=== PATIENT | male | born 1965 | race African-American/Black ===

== ENCOUNTER 2017-12-14 16:03 | Inpatient (IN) | payer MEDICAID, SELFPAY ==
[2017-12-14 16:04] VITALS: BP 134/85; PULSE 102; RESP 16; TEMP 37; O2SAT 99; BMI 20.3
--- NOTE | 2017-12-14 16:35 | CT_ITS ---
STUDY: CT ABDOMEN AND PELVIS WITH CONTRAST REASON FOR EXAM: Male, 52 years old. Intermittent vomiting. RADIATION DOSAGE (If Supplied By Facility): CTDIvol = ( 13.93 ) mGy, DLP = ( 426.75 ) mGycm TECHNIQUE: Transaxial images were obtained from the dome of the diaphragm to the symphysis pubis without oral contrast. 100ML ml of Isovue 300 contrast was administered. Sagittal and coronal images were reconstructed. Individualized dose optimization techniques were used for this CT. COMPARISON: None. FINDINGS: The visualized lung bases are unremarkable. The visualized portions of the heart are within normal limits. Normal liver. The gallbladder is distended measuring up to 5.7 cm in the transverse dimension. There are gallstones within the gallbladder. Normal spleen. Normal pancreas. Normal bilateral adrenal glands. Normal right kidney. Normal left kidney. Normal visualized stomach. Normal small intestine. There is circumferential wall thickening of the colon. There are surgical clips in the region of the appendix consistent with a prior appendectomy. There are scattered atherosclerotic calcifications of the abdominal aorta, without a demonstrated aneurysm. Normal inferior vena cava. Normal retroperitoneum. The urinary bladder is fluid-filled and distended. There is mild subcutaneous edema within the central mid and lower back. There are degenerative changes throughout the visualized thoracic and lumbar spine most pronounced at L5-S1. CT/Abdomen/Pelvis WITH Contrast IMPRESSION: Distended gallbladder associated with cholelithiasis, cannot exclude underlying cholecystitis, recommend a dedicated ultrasound for further evaluation. Circumferential wall thickening of the colon this may be partially secondary to its incompletely distended state however cannot exclude underlying mild colitis. Fluid-filled distended urinary bladder. Atherosclerosis. Electronically Signed: Sanaz Arias MD at 18:49 EST Tel , Service support ,
--- NOTE | 2017-12-14 16:37 | ED.VISSUMM ---
- ER Visit Summary Date of Service: 12/14/17 Chief Complaint: Abdominal pain History of Present Illness: The patient is a 52 M presenting with abdominal pain ?1 week. He complains of diffuse burning in his abdomen. He has had nausea and vomiting. He denies blood in his emesis. He denies diarrhea constipation. Denies urinary complaints. Denies fever. Denies history of alcohol use. He has a history of previous appendectomy. History of chronic back pain. Physical Examination: Vitals are stable. Patient is afebrile. Alert no acute distress. HEENT exam is unremarkable. Neck is supple. Lungs are clear and equal bilaterally. Heart is regular rate and rhythm. Abdomen is soft diffuse tenderness, no rebound or guarding. Extremities left great toe wound with mild surrounding erythema Skin is warm and dry. No focal neurologic deficit. Remainder of exam is unremarkable. Emergency Department Course and Treatment: Patient is given IV fluids, Dilaudid, Zofran. CBC is unremarkable. Chemistries show sodium 132, glucose 505. He was given insulin subcu. ALT 94, AST 71. Lipase 1999. CT abdomen pelvis shows distended gallbladder, possible mild colitis. Ultrasound shows distended gallbladder, cholelithiasis, possible adenomyomatosis. Left foot x-ray shows no evidence of osteomyelitis. He was given Zosyn IV. Discussed with Dr. Ramirez. He requests that the patient is n.p.o. after midnight. Discussed with Dr. Guadarrama who will evaluate him for admission. Disposition: Admission Impression: Pancreatitis, cholelithiasis, diabetic foot ulcer This note was generated with [employer] dictation software. It may contain incorrect words, spelling, and punctuation that were not noted in review of the chart prior to signing ED Disposition - Plan for ED Patient: Chief Complaint: Abd Pain Referrals: Timothy Fisher Chi, MD [Primary Care Provider] -
[2017-12-14] MEDS: 0.9% Normal Saline 1,000 ML 1000 ML IV (17:05)
[2017-12-14] MEDS: Ondansetron 4 MG/2 ML Vial IV (17:05)
[2017-12-14] MEDS: HYDROmorphone 1 MG/ML Syringe 0.5 MG IV (17:05)
[2017-12-14 17:45] LABS: Absolute Lymphocyte Count 2.06 X10^3/ul (0.83-4.51); Absolute Neutrophil Count 3.4 X10^3/uL (2.0-7.7); Basophil# 0.02 X10^3/uL; Basophil% 0.3 % (0-1); Eosinophil# 0.09 X10^3/uL; Eosinophils% 1.4 % (0-5); Hematocrit 39.3 % (40-54); Lymphocyte # 2.06 X10^3/ul (4.0); Mean Corpuscular Volume 91.6 fL (80-94); Mean Platelet Vol. 11.7 fl (6.2-12.0); Monocyte# 0.63 X10^3/uL; Monocyte% 10.1 % (0-10); Neutrophil # 3.42 X10^3/uL (2.7-7.7); Neutrophil % 54.7 % (47-70); Platelet Count 138 K/mm3 (150-450); RBC Distribution Width CV 12.4 % (11.6-14.6); RBC Distribution Width SD 41.4 fl (35.1-43.9); Red Blood Count 4.29 M/mm3 (4.6-6.2); White Blood Count 6.3 K/mm3 (4.4-11.0)
[2017-12-14 17:46] LABS: Hemoglobin 13.6 g/dl (13.0-16.5); Mean Corp Hgb Conc 34.6 g/gl (32-36); Mean Corpuscular Hgb 31.7 pg (27.0-32.0); POSITIVE COUNT NO; POSITIVE DIFFERENTIAL NO; POSITIVE MORPHOLOGY NO
[2017-12-14 18:03] LABS: AST(SGOT) 71 U/L (15-37); Alanine Aminotransfer ALT/SGPT 94 U/L (16-61); Albumin, Serum 3.5 g/dL (3.2-5.0); Alkaline Phosphatase 103 U/L (45-117); Anion Gap 9 (5-15); BUN 9 mg/dL (7-18); BUN/Creat Ratio 9.7 RATIO (10-20); Bilirubin, Direct 0.27 mg/dL (0.00-0.30); Calcium,Total 9.1 mg/dL (8.5-10.1); Chloride 95 mmol/L (98-107); Creatinine, Serum 0.93 mg/dL (0.70-1.30); EST Glomerular Filtration Rate 91 mL/min (>60); Est Glom Filt Rate - Afr Amer 110 mL/min (>60); Estimated Creatinine Clearance 93.04 ml/min; Globulin 5.8 g/dL (2.2-4.2); Glucose 505 mg/dL (74-106); Lipase 1999 U/L (73-393); Potassium 3.9 mmol/L (3.5-5.1); Protein, Total 9.3 g/dL (6.4-8.2); Sodium Level 132 mmol/L (136-145)
[2017-12-14] MEDS: HYDROmorphone 1 MG/ML Syringe IV ×2 (18:13→21:02)
--- NOTE | 2017-12-14 18:56 | US_ITS ---
STUDY: ULTRASOUND GALLBLADDER REASON FOR VISIT: Male, 52 years old. Abdominal pain TECHNIQUE: Ultrasound evaluation of the gallbladder was performed with real-time and static meza-scale imaging. TECHNICAL QUALITY: Adequate. COMPARISON: CT dated December 14, 2017 FINDINGS: Gallbladder: The gallbladder is distended. Gallbladder wall measures 2 mm. The contract associate reported the patient was tender within the gallbladder region. There is no pericholecystic fluid. There appears to be a ring down artifact within the gallbladder fundus. Common Bile Duct (C.B.D.): The common bile duct measures 4.8 mm. US/Gallbladder IMPRESSION: Distended gallbladder associated with cholelithiasis and possible adenomyomatosis. Electronically Signed: Sanaz Arias MD at 21:01 EST Tel , Service support ,
[2017-12-14 19:41] VITALS: BP 140/91; PULSE 80; RESP 16; O2SAT 100
[2017-12-14 21:03] VITALS: BP 134/97; PULSE 79; RESP 16; O2SAT 98
--- NOTE | 2017-12-14 21:45 | RAD_ITS ---
STUDY: X-RAY - LEFT FOOT CLINICAL: Male, 52 years old. Left great toe infection. TECHNIQUE: 3 view(s) of the foot. COMPARISON: None. FINDINGS: There is demineralization of the rear and midfoot bones. There are mild degenerative changes of the midfoot. Normal metatarsi. There is degenerative arthrosis of the metatarsophalangeal joint of the hallux . Normal interphalangeal joint of the great toe. Normal phalanges of the great toe. There is soft tissue swelling of the great toe. Normal second through fifth metatarsophalangeal joints. Normal interphalangeal joints and phalanges of the lesser toes. There are vascular calcifications present. RAD/Foot min 3 Views IMPRESSION: No gross evidence of osteomyelitis. Atherosclerosis. Mild degenerative changes. Electronically Signed: Sanaz Arias MD at 22:05 EST Tel , Service support ,
[2017-12-15] VITALS (13 sets, daily range): BP systolic 95–146; BP diastolic 63–99; PULSE 68–89; RESP 16–18; TEMP 36.6–36.8; O2SAT 97–100; BMI 19.4
--- NOTE | 2017-12-15 00:44 | PCM.HP.STD ---
Problem List (1) Acute pancreatitis Status: Acute Qualifiers: Pancreatitis type: biliary Acute pancreatitis complication: no infection or necrosis Qualified Code(s): K85.10 - Biliary acute pancreatitis without necrosis or infection (2) Hypertension Status: Chronic Qualifiers: Hypertension type: essential hypertension Qualified Code(s): I10 - Essential (primary) hypertension (3) Ulcer of left great toe due to diabetes mellitus Status: Chronic (4) Diabetes mellitus type 2 Status: Chronic History of Present Illness Date of Admission: 12/15/17 Chief Complaint: Abdominal pain - 1 week The patient is a 52 year old M with PMHx of Type 2 DM, chronic back pain, hypertension who comes in with complains of abdominal pain, ongoing for 1 week. Patient complains of diffuse abdominal pain, worse in the upper abdomen, described as burning, progressively getting worse, associated with nausea and vomiting but no hematemesis. Denies any constipation or diarrhea or hematochezia. Denies use of alcohol. Denies any fever or chills, dizziness or shortness of breath. Vitals in the ED show T 98.6F, HR 102, BP 134/85, RR 16, spo2 99%. 12 showed RBC count of 6.3, Hb 13.6, platelets of 138, sodium 132, potassium 3.9, chloride 95, bicarb 28, BUN 9 creatinine 0.93, glucose 505, AST 71, ALT 94, ALP 103, lipase is 1999. Abdominal CT shows distended gallbladder associated with cholelithiasis. Gallbladder ultrasound confirms gallstones. 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) Diabetes mellitus type 2 (Chronic) Allergies morphine Allergy (Verified 12/14/17 16:07) Other Home Medications: Ambulatory Orders Medication Instructions Recorded Atorvastatin Calcium [Lipitor] 40 mg PO QHS 02/08/17 Lisinopril [Zestril] 10 mg PO DAILY 02/08/17 Insulin Glargine,Hum.rec.anlog 20 unit SQ QHS 10/06/17 [Basaglar Kwikpen U-100] Insulin Lispro [Humalog] 10 unit SQ TIDCM 10/06/17 Surgical History: appendectomy Psychiatric History: No pertinent psych hx Lives: Spouse/ Significant Other Smoking Status: Current every day smoker - black [place] Tobacco Use: Non-smoker Alcohol: None Drugs: None - *Family History Maternal History Items: No pertinent history Paternal History Items: No pertinent history Review of Systems Constitutional: Reports: Anorexia, Weakness. Denies: Chills, Fever, Malaise, Weight Change Eyes: Denies: Blurred vision, Cataracts, Conjunctivae Inflammation, Double vision, Drainage HEENT: Denies: Difficulty Hearing, Difficulty Swallowing, Head Aches, Hearing Changes, Sinus Congestion, Sinus Drainage Cardiovascular: Denies: Chest Pain, Claudication, Chest Pressure, Chest Tightness, Edema, Orthopnea, Palpitations, Paroxysmal Noc. Dyspnea Respiratory: Denies: Cough, Pleuritic Pain, Shortness of Breath, Shortness of breath at rest, Shortness of breath upon exertion, Sputum production Gastrointestinal: Reports: Dyspepsia, Nausea, Vomiting. Denies: Abdominal Pain, Constipation, Diarrhea, Melena Genitourinary: Denies: Dysuria, Frequency, Incontinence Musculoskeletal: Denies: Joint Pain, Joint stiffness, Joint swelling, Joint Tenderness Skin: Denies: Dryness, Jaundice, Rash, Wounds Neurological: Denies: Difficulty swallowing, Focal weakness, Numbness, Tingling Psychiatric: Denies: Anxiety, Depression, Homicidal Ideations, Suicidal Ideations Hematologic/ Lymphatic: Denies: Easy Bruising, Easy Bleeding VTE Information - Inpt Only VTE Present on Admission: No VTE Pharm Prophylaxis ordered?: Yes Patient Problems: Active and Suspected Problems Acute pancreatitis (Acute) - Physical Exam General: Alert, Oriented x3, Cooperative, - - not pale, looks tired HEENT: Atraumatic, PERRLA, EOMI, Normocephalic Oral: Dry Mucosa Neck: Supple Lungs: Clear to auscultation, Normal air movement, Diminished - at lung bases Cardiovascular: Regular rate, Regular Rhythm, Normal S1, Normal S2, No murmurs Abdomen: Bowel Sounds Present, Soft, Non-Distended, No Hepato-splenomegaly, Tender - in upper abdomen with some guarding. Extremities: No edema Skin: No rashes Musculoskeletal: No Tenderness to Palpation of Joints or Extremities Lymphatic: No Cervical, Supraclavicular, or Inguinal Adenopathy Neurological: Cranial nerves II-XII grossly intact, Motor Exam 5/5 strength throughout Psych/Mental Status: Normal Affect, Appropriate Vital Signs Temp Pulse Resp BP Pulse Ox 98.6 F 68 16 95/67 97 12/14/17 16:04 12/15/17 00:21 12/15/17 00:21 12/15/17 00:21 12/15/17 00:21 Oxygen Delivery Method Room Air Assessment/Plan Active and Suspected Problems Acute pancreatitis (Acute) 52 year old male with PMHx of Type 2 DM, chronic back pain, hypertension who comes in with complains of abdominal pain, ongoing for 1 week. 1. Acute abdominal pain, unclear etiology, could be from pancreatitis,as admitting lipase was 1998, but CT scan of the abdomen and pelvis shows a normal pancreas. Ultrasound and CT scan of the abdomen points to cholelithiasis without cholecystitis Plan: Admit to [facility] floor, IV fluids, keep n.p.o, general surgery- Dr. Ramirez, has been consulted by the ED, pain controlled with Dilaudid IV, repeat lipase in the morning, IV PPI twice daily 2. Type II DM, blood sugars are uncontrolled, will continue on home regimen but decrease the dose of Lantus to 10 units nightly and pre-meal lispro to 5 units 3 times daily in the light of n.p.o. status. We will continue with Accu-Cheks and insulin sliding scale every 6 hours as long as patient is n.p.o. 3. Hyperlipidemia, statin on hold on account of possible acute pancreatitis, may resume on discharge if patient is improved. 4. Hypertension, controlled, on lisinopril which is being held on account of possible pancreatitis, will monitor BP and add prn hydralazine. 5. 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 6. Hyponatremia, related to hypoglycemia, repeat BMP in a.m. 7. DVT prophylaxis with Lovenox subcu Code Visit Inpatient E&M: 76537 Init Hosp L3
[2017-12-15] MEDS: HYDROmorphone 1 MG/ML Syringe IV ×6 (00:48→20:27)
--- NOTE | 2017-12-15 00:54 | HP.PCM_ITS ---
Problem List (1) Acute pancreatitis Status: Acute Qualifiers: Pancreatitis type: biliary Acute pancreatitis complication: no infection or necrosis Qualified Code(s): K85.10 - Biliary acute pancreatitis without necrosis or infection (2) Hypertension Status: Chronic Qualifiers: Hypertension type: essential hypertension Qualified Code(s): I10 - Essential (primary) hypertension (3) Ulcer of left great toe due to diabetes mellitus Status: Chronic (4) Diabetes mellitus type 2 Status: Chronic History of Present Illness Date of Admission: 12/15/17 Chief Complaint: Abdominal pain - 1 week The patient is a 52 year old M with PMHx of Type 2 DM, chronic back pain, hypertension who comes in with complains of abdominal pain, ongoing for 1 week. Patient complains of diffuse abdominal pain, worse in the upper abdomen, described as burning, progressively getting worse, associated with nausea and vomiting but no hematemesis. Denies any constipation or diarrhea or hematochezia. Denies use of alcohol. Denies any fever or chills, dizziness or shortness of breath. Vitals in the ED show T 98.6F, HR 102, BP 134/85, RR 16, spo2 99%. 12 showed RBC count of 6.3, Hb 13.6, platelets of 138, sodium 132, potassium 3.9, chloride 95, bicarb 28, BUN 9 creatinine 0.93, glucose 505, AST 71, ALT 94, ALP 103, lipase is 1999. Abdominal CT shows distended gallbladder associated with cholelithiasis. Gallbladder ultrasound confirms gallstones. 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) Diabetes mellitus type 2 (Chronic) Allergies morphine Allergy (Verified 12/14/17 16:07) Other Home Medications: Ambulatory Orders Medication Instructions Recorded Atorvastatin Calcium [Lipitor] 40 mg PO QHS 02/08/17 Lisinopril [Zestril] 10 mg PO DAILY 02/08/17 Insulin Glargine,Hum.rec.anlog 20 unit SQ QHS 10/06/17 [Basaglar Kwikpen U-100] Insulin Lispro [Humalog] 10 unit SQ TIDCM 10/06/17 Surgical History: appendectomy Psychiatric History: No pertinent psych hx Lives: Spouse/ Significant Other Smoking Status: Current every day smoker - black [place] Tobacco Use: Non-smoker Alcohol: None Drugs: None - *Family History Maternal History Items: No pertinent history Paternal History Items: No pertinent history Review of Systems Constitutional: Reports: Anorexia, Weakness. Denies: Chills, Fever, Malaise, Weight Change Eyes: Denies: Blurred vision, Cataracts, Conjunctivae Inflammation, Double vision, Drainage HEENT: Denies: Difficulty Hearing, Difficulty Swallowing, Head Aches, Hearing Changes, Sinus Congestion, Sinus Drainage Cardiovascular: Denies: Chest Pain, Claudication, Chest Pressure, Chest Tightness, Edema, Orthopnea, Palpitations, Paroxysmal Noc. Dyspnea Respiratory: Denies: Cough, Pleuritic Pain, Shortness of Breath, Shortness of breath at rest, Shortness of breath upon exertion, Sputum production Gastrointestinal: Reports: Dyspepsia, Nausea, Vomiting. Denies: Abdominal Pain , Constipation, Diarrhea, Melena Genitourinary: Denies: Dysuria, Frequency, Incontinence Musculoskeletal: Denies: Joint Pain, Joint stiffness, Joint swelling, Joint Tenderness Skin: Denies: Dryness, Jaundice, Rash, Wounds Neurological: Denies: Difficulty swallowing, Focal weakness, Numbness, Tingling Psychiatric: Denies: Anxiety, Depression, Homicidal Ideations, Suicidal Ideations Hematologic/ Lymphatic: Denies: Easy Bruising, Easy Bleeding VTE Information - Inpt Only VTE Present on Admission: No VTE Pharm Prophylaxis ordered?: Yes Patient Problems: Active and Suspected Problems Acute pancreatitis (Acute) - Physical Exam General: Alert, Oriented x3, Cooperative, - - not pale, looks tired HEENT: Atraumatic, PERRLA, EOMI, Normocephalic Oral: Dry Mucosa Neck: Supple Lungs: Clear to auscultation, Normal air movement, Diminished - at lung bases Cardiovascular: Regular rate, Regular Rhythm, Normal S1, Normal S2, No murmurs Abdomen: Bowel Sounds Present, Soft, Non-Distended, No Hepato-splenomegaly, Tender - in upper abdomen with some guarding. Extremities: No edema Skin: No rashes Musculoskeletal: No Tenderness to Palpation of Joints or Extremities Lymphatic: No Cervical, Supraclavicular, or Inguinal Adenopathy Neurological: Cranial nerves II-XII grossly intact, Motor Exam 5/5 strength throughout Psych/Mental Status: Normal Affect, Appropriate Vital Signs Temp Pulse Resp BP Pulse Ox 98.6 F 68 16 95/67 97 12/14/17 16:04 12/15/17 00:21 12/15/17 00:21 12/15/17 00:21 12/15/17 00:21 Oxygen Delivery Method Room Air Assessment/Plan Active and Suspected Problems Acute pancreatitis (Acute) 52 year old male with PMHx of Type 2 DM, chronic back pain, hypertension who comes in with complains of abdominal pain, ongoing for 1 week. 1. Acute abdominal pain, unclear etiology, could be from pancreatitis,as admitting lipase was 1998, but CT scan of the abdomen and pelvis shows a normal pancreas. Ultrasound and CT scan of the abdomen points to cholelithiasis without cholecystitis Plan: Admit to [facility] floor, IV fluids, keep n.p.o, general surgery- Dr. Ramirez, has been consulted by the ED, pain controlled with Dilaudid IV, repeat lipase in the morning, IV PPI twice daily 2. Type II DM, blood sugars are uncontrolled, will continue on home regimen but decrease the dose of Lantus to 10 units nightly and pre-meal lispro to 5 units 3 times daily in the light of n.p.o. status. We will continue with Accu- Cheks and insulin sliding scale every 6 hours as long as patient is n.p.o. 3. Hyperlipidemia, statin on hold on account of possible acute pancreatitis, may resume on discharge if patient is improved. 4. Hypertension, controlled, on lisinopril which is being held on account of possible pancreatitis, will monitor BP and add prn hydralazine. 5. Chronic left 1st toe ulcer, diabetic ulcer on plantar surface of toe, follows up with architect [employer] in the outpatient, will get wound nurse to see. 6. Hyponatremia, related to hypoglycemia, repeat BMP in a.m. 7. DVT prophylaxis with Lovenox subcu Code Visit Inpatient E&M: [id number] Init Hosp L3
[2017-12-15] MEDS: 0.9% Normal Saline 1,000 ML 150 ML IV (02:25)
[2017-12-15 02:45] LABS: Bedside Glucose 110 mg/dL (70-110)
[2017-12-15] MEDS: Dextrose 5%/0.9% NaCl 1,000 ML 150 ML IV ×2 (04:58→12:01)
[2017-12-15 06:46] LABS: Absolute Lymphocyte Count 2.63 X10^3/ul (0.83-4.51); Basophil# 0.02 X10^3/uL; Basophil% 0.3 % (0-1); Eosinophils% 1.6 % (0-5); Hematocrit 33.8 % (40-54); Hemoglobin 12.1 g/dl (13.0-16.5); Lymphocyte # 2.63 X10^3/ul (4.0); Mean Corp Hgb Conc 35.8 g/gl (32-36); Mean Corpuscular Volume 92.1 fL (80-94); Mean Platelet Vol. 10.4 fl (6.2-12.0); Monocyte# 0.59 X10^3/uL; Monocyte% 9.2 % (0-10); Neutrophil # 3.04 X10^3/uL (2.7-7.7); Neutrophil % 47.3 % (47-70); Platelet Count 116 K/mm3 (150-450); RBC Distribution Width CV 12.5 % (11.6-14.6); RBC Distribution Width SD 42.3 fl (35.1-43.9); Red Blood Count 3.67 M/mm3 (4.6-6.2); White Blood Count 6.4 K/mm3 (4.4-11.0)
[2017-12-15 06:53] LABS: POSITIVE COUNT NO; POSITIVE DIFFERENTIAL NO; POSITIVE MORPHOLOGY NO
[2017-12-15 06:56] LABS: Lipase 440 U/L (73-393)
[2017-12-15 07:01] LABS: Bedside Glucose 260 mg/dL (70-110)
--- NOTE | 2017-12-15 07:41 | EKG12_ITS ---
Test Reason : Blood Pressure : / mmHG Vent. Rate : 077 BPM Atrial Rate : 077 BPM P-R Int : 174 ms QRS Dur : 096 ms QT Int : 396 ms P-R-T Axes : 066 -37 066 degrees QTc Int : 448 ms Normal sinus rhythm Left axis deviation Low voltage QRS Abnormal ECG When compared with ECG of 08-FEB-2017 19:40, No significant change was found Confirmed by ROSEANNA WILKES, BARRIE ([id number]), managing editor MARISELA HEBERT ([id number]) on 12/29/2017 1:34:21 PM Referred By: ESTEFANY Confirmed By:BARRIE CONDON MD
--- NOTE | 2017-12-15 08:03 | PCM.CONS.GEN ---
Problem List (1) Gallstone pancreatitis Status: Acute Reason for Consult Date of Consultation: 12/15/17 History of Present Illness: The patient is a 52 year old M who was admitted last night with epigastric pain. He reports that his pain is actually generalized and has been going on for about a week. He says that he has never had pancreatitis in the past. He is not having any nausea or vomiting. He denies any diarrhea or blood in stool. 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) Diabetes mellitus type 2 (Chronic) Allergies morphine Allergy (Verified 12/15/17 02:13) Other pt states gets very bad headaches from morphine Home Medications: Ambulatory Orders Medication Instructions Recorded Atorvastatin Calcium [Lipitor] 40 mg PO QHS 02/08/17 Lisinopril [Zestril] 10 mg PO DAILY 02/08/17 Insulin Glargine,Hum.rec.anlog 20 unit SQ QHS 10/06/17 [Basaglar Kwikpen U-100] Insulin Lispro [Humalog] 10 unit SQ TIDCM 10/06/17 Surgical History: appendectomy Psychiatric History: No pertinent psych hx Lives: Spouse/ Significant Other Smoking Status: Current every day smoker - black [employer] Tobacco Use: Non-smoker Alcohol: None Drugs: None - *Family History Maternal History Items: No pertinent history Paternal History Items: No pertinent history Review of Systems Constitutional: Reports: Anorexia. Denies: Chills, Fever HEENT: Denies: Difficulty Swallowing Cardiovascular: Denies: Chest Pain Respiratory: Denies: Cough, Shortness of Breath Gastrointestinal: Reports: Abdominal Pain - Generalized abdominal pain. Denies: Nausea, Vomiting Genitourinary: Denies: Dysuria Musculoskeletal: Reports: Joint Tenderness Skin: Denies: Dryness, Jaundice Neurological: Denies: Focal weakness Psychiatric: Denies: Anxiety Hematologic/ Lymphatic: Denies: Anemia Patient Problems: Active and Suspected Problems Acute pancreatitis (Acute) Gallstone pancreatitis (Acute) - Physical Exam General: Alert, Oriented x3, No apparent distress HEENT: Atraumatic Oral: Moist Mucosa Neck: No JVD Lungs: Normal air movement Cardiovascular: Regular rate, Regular Rhythm Abdomen: Soft, Non-Distended, Tender - Abdominal tenderness. No guarding or rebound. Musculoskeletal: No Muscle Wasting Lymphatic: No Cervical, Supraclavicular, or Inguinal Adenopathy Neurological: Cranial nerves II-XII grossly intact Vital Signs Temp Pulse Resp BP Pulse Ox 98.1 F 77 18 111/63 98 12/15/17 07:51 12/15/17 07:51 12/15/17 07:51 12/15/17 07:51 12/15/17 07:51 Oxygen Delivery Method Room Air Weight: 149 lb 3.2 oz Body Mass Index (BMI) 19.4 Intake and Output for Last 24 Hours 12/13/17 12/14/17 12/15/17 23:59 23:59 23:59 Intake Total 1028 / 1028 Balance 1028 / 1028 Laboratory Tests Past 24 Hrs 12/15/17 12/15/17 06:26 06:26 WBC 6.4 RBC 3.67 L Hgb 12.1 L Hct 33.8 L MCV 92.1 MCH 33.0 H MCHC 35.8 RDW 12.5 RDW Differential 42.3 Plt Count 116 L MPV 10.4 Immature Gran % (Auto) 0.600 Neut % (Auto) 47.3 Lymph % (Auto) 41.0 Emanuel % (Auto) 9.2 Eos % (Auto) 1.6 Baso % (Auto) 0.3 Absolute Neuts (auto) 3.0 Absolute Lymphs (auto) 2.63 Total Counted Not Reportable Lipase 440 H POC Glucose 12/15/17 12/15/17 06:48 02:23 POC Glucose 260 H 110 Clinical Impression(s) from Imaging Studies Abdomen/Pelvis CT 12/14/17 16:35 IMPRESSION: Distended gallbladder associated with cholelithiasis, cannot exclude underlying cholecystitis, recommend a dedicated ultrasound for further evaluation. Circumferential wall thickening of the colon this may be partially secondary to its incompletely distended state however cannot exclude underlying mild colitis. Fluid-filled distended urinary bladder. Atherosclerosis. Electronically Signed: Sanaz Arias MD at 18:49 EST Tel , Service support , Gallbladder Ultrasound 12/14/17 18:56 IMPRESSION: Distended gallbladder associated with cholelithiasis and possible adenomyomatosis. Electronically Signed: Sanaz Arias MD at 21:01 EST Tel , Service support , Foot X-Ray 12/14/17 21:45 IMPRESSION: No gross evidence of osteomyelitis. Atherosclerosis. Mild degenerative changes. Electronically Signed: Sanaz Arias MD at 22:05 EST Tel , Service support , Assessment/Plan Active and Suspected Problems Acute pancreatitis (Acute) Gallstone pancreatitis (Acute) 52-year-old male with acute gallstone pancreatitis 1. The patient did have elevated lipase and does have gallstones on both CT and ultrasound. His symptoms are not typical of pancreatitis as this was not acute onset and has been gradually onset for a week. His lipase has improved today and he reports his pain is slightly improved from yesterday. I informed him that the standard treatment for a patient with pancreatitis and gallstones is a laparoscopic cholecystectomy as the most likely cause of pancreatitis is gallstones. I told him that this would not relieve his pain but only would prevent a recurrence of his pancreatitis. I also told him that there is a possibility of his pancreatitis returning if the original cause was not his gallstones. The patient understands this and is willing to proceed with surgery. 2. I described laparoscopic cholecystectomy in detail to the patient. I described the risks including but not limited to bleeding, infection, stroke and heart attack with anesthesia, injury to surrounding organs such as the liver, bile duct, bowels. The patient understands all the risks and is willing to proceed with surgery. 3. I will keep the patient n.p.o. today and plan for surgery this afternoon. I will order an EKG as well. Tay Ramirez MD Pager: [facility] [address], [place] [address] Office:
--- NOTE | 2017-12-15 08:08 | CON.PCM_ITS ---
Problem List (1) Gallstone pancreatitis Status: Acute Reason for Consult Date of Consultation: 12/15/17 History of Present Illness: The patient is a 52 year old M who was admitted last night with epigastric pain. He reports that his pain is actually generalized and has been going on for about a week. He says that he has never had pancreatitis in the past. He is not having any nausea or vomiting. He denies any diarrhea or blood in stool. 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) Diabetes mellitus type 2 (Chronic) Allergies morphine Allergy (Verified 12/15/17 02:13) Other pt states gets very bad headaches from morphine Home Medications: Ambulatory Orders Medication Instructions Recorded Atorvastatin Calcium [Lipitor] 40 mg PO QHS 02/08/17 Lisinopril [Zestril] 10 mg PO DAILY 02/08/17 Insulin Glargine,Hum.rec.anlog 20 unit SQ QHS 10/06/17 [Basaglar Kwikpen U-100] Insulin Lispro [Humalog] 10 unit SQ TIDCM 10/06/17 Surgical History: appendectomy Psychiatric History: No pertinent psych hx Lives: Spouse/ Significant Other Smoking Status: Current every day smoker - black [employer] Tobacco Use: Non-smoker Alcohol: None Drugs: None - *Family History Maternal History Items: No pertinent history Paternal History Items: No pertinent history Review of Systems Constitutional: Reports: Anorexia. Denies: Chills, Fever HEENT: Denies: Difficulty Swallowing Cardiovascular: Denies: Chest Pain Respiratory: Denies: Cough, Shortness of Breath Gastrointestinal: Reports: Abdominal Pain - Generalized abdominal pain. Denies : Nausea, Vomiting Genitourinary: Denies: Dysuria Musculoskeletal: Reports: Joint Tenderness Skin: Denies: Dryness, Jaundice Neurological: Denies: Focal weakness Psychiatric: Denies: Anxiety Hematologic/ Lymphatic: Denies: Anemia Patient Problems: Active and Suspected Problems Acute pancreatitis (Acute) Gallstone pancreatitis (Acute) - Physical Exam General: Alert, Oriented x3, No apparent distress HEENT: Atraumatic Oral: Moist Mucosa Neck: No JVD Lungs: Normal air movement Cardiovascular: Regular rate, Regular Rhythm Abdomen: Soft, Non-Distended, Tender - Abdominal tenderness. No guarding or rebound. Musculoskeletal: No Muscle Wasting Lymphatic: No Cervical, Supraclavicular, or Inguinal Adenopathy Neurological: Cranial nerves II-XII grossly intact Vital Signs Temp Pulse Resp BP Pulse Ox 98.1 F 77 18 111/63 98 12/15/17 07:51 12/15/17 07:51 12/15/17 07:51 12/15/17 07:51 12/15/17 07:51 Oxygen Delivery Method Room Air Weight: 149 lb 3.2 oz Body Mass Index (BMI) 19.4 Intake and Output for Last 24 Hours 12/13/17 12/14/17 12/15/17 23:59 23:59 23:59 Intake Total 1028 / 1028 Balance 1028 / 1028 Laboratory Tests Past 24 Hrs 12/15/17 12/15/17 06:26 06:26 WBC 6.4 RBC 3.67 L Hgb 12.1 L Hct 33.8 L MCV 92.1 MCH 33.0 H MCHC 35.8 RDW 12.5 RDW Differential 42.3 Plt Count 116 L MPV 10.4 Immature Gran % (Auto) 0.600 Neut % (Auto) 47.3 Lymph % (Auto) 41.0 Talbot % (Auto) 9.2 Eos % (Auto) 1.6 Baso % (Auto) 0.3 Absolute Neuts (auto) 3.0 Absolute Lymphs (auto) 2.63 Total Counted Not Reportable Lipase 440 H POC Glucose 12/15/17 12/15/17 06:48 02:23 POC Glucose 260 H 110 Clinical Impression(s) from Imaging Studies Abdomen/Pelvis CT 12/14/17 16:35 IMPRESSION: Distended gallbladder associated with cholelithiasis, cannot exclude underlying cholecystitis, recommend a dedicated ultrasound for further evaluation. Circumferential wall thickening of the colon this may be partially secondary to its incompletely distended state however cannot exclude underlying mild colitis. Fluid-filled distended urinary bladder. Atherosclerosis. Electronically Signed: Sanaz Arias MD at 18:49 EST Tel , Service support , Gallbladder Ultrasound 12/14/17 18:56 IMPRESSION: Distended gallbladder associated with cholelithiasis and possible adenomyomatosis. Electronically Signed: Sanaz Arias MD at 21:01 EST Tel , Service support , Foot X-Ray 12/14/17 21:45 IMPRESSION: No gross evidence of osteomyelitis. Atherosclerosis. Mild degenerative changes. Electronically Signed: Sanaz Arias MD at 22:05 EST Tel , Service support , Assessment/Plan Active and Suspected Problems Acute pancreatitis (Acute) Gallstone pancreatitis (Acute) 52-year-old male with acute gallstone pancreatitis 1. The patient did have elevated lipase and does have gallstones on both CT and ultrasound. His symptoms are not typical of pancreatitis as this was not acute onset and has been gradually onset for a week. His lipase has improved today and he reports his pain is slightly improved from yesterday. I informed him that the standard treatment for a patient with pancreatitis and gallstones is a laparoscopic cholecystectomy as the most likely cause of pancreatitis is gallstones. I told him that this would not relieve his pain but only would prevent a recurrence of his pancreatitis. I also told him that there is a possibility of his pancreatitis returning if the original cause was not his gallstones. The patient understands this and is willing to proceed with surgery. 2. I described laparoscopic cholecystectomy in detail to the patient. I described the risks including but not limited to bleeding, infection, stroke and heart attack with anesthesia, injury to surrounding organs such as the liver , bile duct, bowels. The patient understands all the risks and is willing to proceed with surgery. 3. I will keep the patient n.p.o. today and plan for surgery this afternoon. I will order an EKG as well. Tay Ramirez MD Pager: [facility] [address], [place] [address] Office:
[2017-12-15] MEDS: 0.9% NaCl Peripheral Flush Adult/Peds IV ×4 (09:01→20:28)
[2017-12-15 11:16] LABS: Bedside Glucose 224 mg/dL (70-110)
--- NOTE | 2017-12-15 11:59 | NURSING ---
wound photo: left great toe
--- NOTE | 2017-12-15 13:29 | CASEMGMT ---
DC PLAN: Home -Pt stated he has diabetic monitoring equipment and checks his blood sugar at home. Could benefit from diabetes f/u. -appt made with Giovany CALVO for 01/11/18 @ 1:30 pm. -will continue to follow and assist with discharge needs. Tracy KAHN RN ACM
[2017-12-15 14:15] LABS: Bedside Glucose 300 mg/dL (70-110)
--- NOTE | 2017-12-15 16:01 | PCM.PN.BLA ---
Progress Note Surgery had to be delayed this afternoon due to an emergent add on by another surgeon. Plan for lap cholecystectomy tomorrrow AM. OK for clears tonight and NPO after midnight.
[2017-12-15 17:31] LABS: Bedside Glucose 299 mg/dL (70-110)
[2017-12-15 22:21] LABS: Bedside Glucose 372 mg/dL (70-110)
[2017-12-16] VITALS (20 sets, daily range): BP systolic 128–182; BP diastolic 78–104; PULSE 71–109; RESP 14–20; TEMP 36.3–36.9; O2SAT 95–100; BMI 19.4
--- NOTE | 2017-12-16 | GALL_PTH ---
PATIENT: LUCIANA ORO Sr. LOC: MS2 U#:[id number] AGE/SX: 52/M ROOM: [id number] RE12/14/[address]: Dr. Delmi Angeles MD : 1965 BED: 1 DIS: 12/17/2017 SPEC #: [id number] RECD: 12/16/17 14:41 STATUS: ESTEFANIA REJayne #: [id number] SHAI: 12/16/17 00:[address]: Tay Ramirez DEPT: SURGICAL PATHOLOGY RECD BY: Rodolfo Martinez ENTERED: 12/16/17 14:43 SP TYPE: GALLBLADDE OTHR DR: MD Dr. Delmi Johnson MD Dr. Tai Chi Kwok, MD Tissues: A - Peritoneal cavity, NOS B - Gallbladder, NOS Procedures: Surgery Specimen Level III Surgery Specimen Level IV Comments: @ Ordering doctor for SUIII edited from to @ indigo JURADO at 12/16/17 1528 @ Ordering doctor for SUIV edited from to @ by RHIANNON at 12/16/17 1528 @ Submitting doctor edited from to @ indigo JURADO at 12/16/17 1528 HEADER OPERATION: A ? Laparoscopic cholecystectomy with intraoperative cholangiogram PRE-OP DIAGNOSIS: Cholelithiasis TISSUE SUBMITTED: A - Peritoneal nodule, B - Gallbladder MICROSCOPIC DIAGNOSIS A. Peritoneal nodule, biopsy: A piece of adipose tissue with extensive fat necrosis and focal calcification may represent infarcted and focally calcified appendix epiploica. B. Gallbladder: Mild chronic cholecystitis and cholelithiasis. A benign paracystic lymph node with reactive changes. DESTINEY:dwight 12/17/17 MICROSCOPIC DESCRIPTION Slides are reviewed. GROSS DESCRIPTION A - Received in fixative is one container labeled with the patient's name and designated peritoneal nodule. The specimen consists of a piece of bond nodule measuring 1 x 0.8 x 0.5 cm. The specimen is bisected and reveals yellowish cut surfaces. A piece of hemorrhagic tissue is also noted adjacent to it measuring 1 x 0.2 x 0.1 cm. The entire specimen is submitted in one cassette. B - Received is one container labeled with the patient's name and designated gallbladder. The specimen consists of a gallbladder measuring 10 cm in length and up to 3.5 cm in diameter. The external surface is pink-bond, smooth and glistening for the most part. Focally it is granular, hemorrhagic and contains cautery artifact. The gallbladder contains green-yellow mucoid bile and multiple black irregular stones and sludge material measuring in aggregate 1 x 1.5 x 0.2 cm and 0.1 to 0.3 cm in greatest dimension. The mucosa is bile-stained and without any mass lesions. The gallbladder wall measures 0.2 cm in thickness. Present close to the cystic duct is an ovoid piece of bond soft tissue, a possible lymph node, measuring 1.5 cm in greatest dimension. [employer] sections from the gallbladder and the cystic duct are submitted in one cassette. One entire bisected lymph node in one cassette. / SJ:rg 12/16/17 TC:3 CPT: 88512, 86038
[2017-12-16] MEDS: 0.9% NaCl Peripheral Flush Adult/Peds IV ×3 (00:24→21:35)
[2017-12-16] MEDS: HYDROmorphone 1 MG/ML Syringe IV ×5 (00:25→21:35)
[2017-12-16 05:39] LABS: Absolute Lymphocyte Count 2.27 X10^3/ul (0.83-4.51); Absolute Neutrophil Count 2.6 X10^3/uL (2.0-7.7); Basophil# 0.01 X10^3/uL; Basophil% 0.2 % (0-1); Eosinophil# 0.12 X10^3/uL; Eosinophils% 2.2 % (0-5); Hematocrit 32.6 % (40-54); Hemoglobin 11.8 g/dl (13.0-16.5); Lymphocyte # 2.27 X10^3/ul (4.0); Lymphocyte % 42.5 % (19-41); Mean Corp Hgb Conc 36.2 g/gl (32-36); Mean Corpuscular Hgb 33.4 pg (27.0-32.0); Mean Corpuscular Volume 92.4 fL (80-94); Mean Platelet Vol. 10.5 fl (6.2-12.0); Monocyte# 0.36 X10^3/uL; Monocyte% 6.7 % (0-10); Neutrophil # 2.55 X10^3/uL (2.7-7.7); Neutrophil % 47.8 % (47-70); POSITIVE COUNT NO; POSITIVE DIFFERENTIAL NO; POSITIVE MORPHOLOGY NO; Platelet Count 126 K/mm3 (150-450); RBC Distribution Width CV 12.4 % (11.6-14.6); Red Blood Count 3.53 M/mm3 (4.6-6.2); White Blood Count 5.3 K/mm3 (4.4-11.0)
[2017-12-16 05:45] LABS: ALB/GLOB Ratio 0.5 RATIO (0.9-2.4); AST(SGOT) 59 U/L (15-37); Alanine Aminotransfer ALT/SGPT 69 U/L (16-61); Albumin, Serum 2.3 g/dL (3.2-5.0); Alkaline Phosphatase 69 U/L (45-117); Anion Gap 6 (5-15); BUN 5 mg/dL (7-18); BUN/Creat Ratio 8.7 RATIO (10-20); Calcium,Total 7.6 mg/dL (8.5-10.1); Chloride 104 mmol/L (98-107); Creatinine, Serum 0.58 mg/dL (0.70-1.30); EST Glomerular Filtration Rate 157 mL/min (>60); Est Glom Filt Rate - Afr Amer 190 mL/min (>60); Estimated Creatinine Clearance 144.23 ml/min; Globulin 4.2 g/dL (2.2-4.2); Glucose 305 mg/dL (74-106); Lipase 176 U/L (73-393); Potassium 3.6 mmol/L (3.5-5.1); Protein, Total 6.5 g/dL (6.4-8.2); Sodium Level 137 mmol/L (136-145)
[2017-12-16 05:56] LABS: Bedside Glucose 334 mg/dL (70-110)
--- NOTE | 2017-12-16 07:34 | NURSING ---
pt agitated that he pain medicine was not administered at 0645, when asked to rate his pain when giving pain medication at this time, he demanded that the RN not ask a stupid question like that stating that it's been the same that it has been since he came in and refused to give location when asked. this RN clarified that the pain was a 10/10 and in his abdomen without radiation. 0.5 mg of dilaudid was given (per Dr Ramirez's order) as pt is being transferred to surgery soon and this RN explained the dangers of being oversedated due to pain meds and anesthesia and that his safety is our main priority. pt rolled his eyes and did not respond. Efrain in was called regarding blood glucose and sliding scale novolog. she checked with anesthesia and they gave ok for the 3 units of novolog sliding scale to be given at this time. will continue to monitor.
[2017-12-16 08:09] LABS: Hemoglobin A1c 13.2 % (4.2-6.3)
--- NOTE | 2017-12-16 08:12 | NURSING ---
report called to Jessica in [facility]. pt transported by SHABBIR Cardona
--- NOTE | 2017-12-16 09:36 | RAD_ITS ---
STUDY: INTRAOPERATIVE CHOLANGIOGRAM. REASON FOR EXAM: Male, 52 years old. Laparoscopic cholecystectomy. FLUOROSCOPY TIME (if supplied): (0:11) minutes/seconds TECHNIQUE: An intraoperative cholangiogram was performed by the surgeon. Imaging was submitted. COMPARISON: None. FINDINGS: The visualized intrahepatic biliary ducts are unremarkable. The common bile duct is unremarkable as well. No intraluminal filling defect is seen. There is free flow of contrast into the duodenum. RAD/Cholangiogram/ O R,Initial IMPRESSION: Unremarkable intraoperative cholangiogram. Electronically Signed: Nicolás Vinson MD at 11:12 EST Tel [phone], Service support ,
[2017-12-16] MEDS: Bupiv/Epi 0.5% Mpf 30 ML Vial (10:40)
--- NOTE | 2017-12-16 10:47 | PCM.OPRPT ---
Problem List (1) Gallstone pancreatitis Status: Acute Report of Operation Date of Procedure: 12/16/17 Pre-Operative Diagnosis: Gallstone pancreatitis Post-Operative Diagnosis: Same Surgery/Procedure Performed:: Laparoscopic cholecystectomy with cholangiogram Description of Surgical Findings:: The patient has small free-floating nodule which was removed. Intraoperative cholangiogram showed good filling of the duodenum with no notable filling defect. Specimen's removed: 1. Peritoneal nodule. 2. Gallbladder and contents Description of Procedure: After obtaining informed consent patient was brought back to the operating room. General anesthesia was induced. The abdomen was prepped and draped in usual sterile fashion. A small midline incision was made superior to the umbilicus and deepened to the level of fascia. The fascia was elevated and incised. Next the peritoneum was elevated and incised in the same fashion. Finger sweep was performed and the Valencia trocar was placed into the abdomen. The balloon was inflated. The abdomen was inflated to 15 mmHg. Next a camera was introduced into the abdomen and the abdomen was inspected. Next under direct visualization three 5-mm ports were placed one subxiphoid and 2 subcostal. There is a free-floating peritoneal nodule which was removed and sent for pathology. Next the gallbladder was elevated and retracted toward the right shoulder. The peritoneum was stripped from the gallbladder. The infundibulum was located and retracted laterally. Next the triangle of Calot was dissected and the cystic duct and cystic artery were identified. Cholangiograms were performed. The Franco catheter was used to clamp across the infundibulum and the needle was inserted into the gallbladder. Under fluoroscopy contrast was instilled into the gallbladder and the common duct, cystic duct as well as proximal hepatic ducts were identified. There was good filling of the duodenum. There were no filling defects noted in the common bile duct. The clamp was removed as well as the needle and the infundibulum was grasped once more. Three hemolock clips were placed across the cystic duct. The cystic duct was then divided leaving 2 clips on the stump. The cystic artery was clipped and divided in the same fashion. The hook cautery was then used to take the gallbladder off of the gallbladder bed. The left hepatic artery was very close to the cystic duct and need to be dissected free. The gallbladder was opened at one point by the grasper and there was spillage of bile. This was irrigated and suctioned. Hemostasis was obtained. Gallbladder fossa was irrigated and no active bleeding or bile leakage was noted. Next the camera switched to a 5 mm camera and introduced in the subxiphoid port. An Endopouch bag was placed through the umbilical port and the gallbladder was placed into it. The gallbladder was then removed through the umbilical incision. The camera was then reinserted through the umbilical port. The gallbladder fossa was inspected once more and noted to be hemostatic with no leaking bile. The abdomen was suctioned dry the 5 mm ports were removed under direct visualization. The umbilical port was then removed and the air was removed from the abdomen. Next using an 0 Vicryl suture the umbilical fascia was closed in a [id number] fashion. The umbilical port site was irrigated local anesthetic was administered to all the incisions. All the incisions were closed subcuticular 4-0 Monocryl sutures followed by Steri-Strips and dressings. The patient was awoken and taken to PACU in stable condition. - Admit VTE Documentation VTE Mechan Device Prophylaxis: SCD's
--- NOTE | 2017-12-16 10:49 | PCM.DC.GB ---
Discharge Diet: Light diet - advance as tolerated Discharge Activity: Return to Normal Activity, May Not Drive - for 2-3 days or while taking narcotic pain medicataions., - - Do not drive, work heavy equipment or sign legal documents for 24 hours. May shower in (days): 1 - with the bandage in place. Additional Activity Instructions:: Pain medication may cause nausea. You should typically eat light foods as you take your pain medications. Pain medication may also cause constipation. If this is a problem for you, please discuss with your doctor. Call your doctor if your incision/area has: Continuous Slow Oozing, Sudden Increased Bleeding, Increased Pain/ Swelling, Increased Redness, Foul Smelling Discharge, Fever of 101 or Higher Call your doctor if you observe: Fever of 101 or Higher Suture Line Care: Avoid Pulling/Pushing, Avoid Pinching/Bending Additional Dressing/Incision Instructions:: Leave operative bandaids on for 2 days. When you remove dressing, leave Steri-Strips on until your follow-up appointment, or until the Steri-Strips fall off on their own. Allergies/Adverse Reactions: Allergies morphine Allergy (Verified 12/15/17 02:13) Other pt states gets very bad headaches from morphine Medications to take at Discharge Atorvastatin Calcium [Lipitor] 40 mg PO QHS 02/08/17 Lisinopril [Zestril] 10 mg PO DAILY 02/08/17 Insulin Glargine,Hum.rec.anlog [Basaglar Kwikpen U-100] 20 unit SQ QHS 10/06/17 Insulin Lispro [Humalog] 10 unit SQ TIDCM 10/06/17 Oxycodone HCl/Acetaminophen [Percocet 5/325] 1 - 2 tablet PO Q4H PRN PRN 7 Days #40 tablet 12/16/17 The following prescriptions were given: Oxycodone HCl/Acetaminophen [Percocet 5/325] 1 - 2 tablet PO Q4H PRN PRN 7 Days #40 tablet PRN Reason: Pain Primary Care Physician: Timothy Fisher Chi, MD [Primary Care Provider] - Please Follow Up With: Tay Ramirez MD When: call to schedule 2 week follow up appt [phone]
--- NOTE | 2017-12-16 10:50 | PCM.PN.BLA ---
Progress Note Patient had laparoscopic cholecystectomy for gallstone pancreatitis today. The patient was still complaining of diffuse abdominal pain even though his lipase had returned to normal. The CT scan did reveal some thickening of his colon. He says that it has been a while since his last colonoscopy. I would recommend an outpatient colonoscopy that we can discuss during follow-up. The patient is okay to be discharged home this afternoon if he is tolerating a diet and his pain is well controlled with p.o. medications. He is to follow with me in 2 weeks. He needs to get his diabetes under better control as his hemoglobin A1c was 13 and I did inform him that a poor glucose control postoperatively placed him at a higher risk of infection. Tay Ramirez MD Pager: [facility] [address], [address] [address] Office:
[2017-12-16 11:41] LABS: Bedside Glucose 270 mg/dL (70-110)
[2017-12-16 13:06] LABS: Bedside Glucose 279 mg/dL (70-110)
--- NOTE | 2017-12-16 13:56 | PCM.PROGNOTE ---
Patient Problems: Active and Suspected Problems Acute pancreatitis (Acute) Gallstone pancreatitis (Acute) Subjective: Chief complaint: Follow-up after admission for gallstone pancreatitis, status post laparoscopic cholecystectomy with intraoperative cholangiogram. Patient seen and examined. No acute events overnight. Just came back from the OR, status post laparoscopic cholecystectomy. Patient is complaining of diffuse abdominal pain. Denied nausea vomiting. No chest pain or shortness of breath. Vital signs are stable. - Physical Exam General: Alert, Cooperative, - - in moderate to severe pain. HEENT: Atraumatic, PERRLA, EOMI Oral: Moist Mucosa, No Gingival or Mucosal Lesions/ Ulcerations Neck: Supple, No JVD, Negative Carotid Bruits, Trachea Midline, Thyroid Normal Size and Texture Lungs: Clear to auscultation, No rhonchi, No wheeze, No rales, Diminished Cardiovascular: Regular rate, Regular Rhythm, Normal S1, Normal S2, No murmurs, PMI Normal Abdomen: Non-Distended, No Hepato-splenomegaly, Tender - Diffuse tenderness, voluntary guarding. Extremities: No clubbing, No cyanosis, No edema Skin: No rashes, No breakdown Lymphatic: No Cervical, Supraclavicular, or Inguinal Adenopathy Neurological: Cranial nerves II-XII grossly intact, Neuro grossly intact, Motor Exam 5/5 strength throughout Psych/Mental Status: Normal Affect, Appropriate Vital Signs Temp Pulse Resp BP Pulse Ox 97.7 F L 96 16 143/90 H 97 12/16/17 12:41 12/16/17 13:09 12/16/17 12:41 12/16/17 12:41 12/16/17 12:41 Oxygen Delivery Method Room Air Weight: 149 lb 3.201 oz Body Mass Index (BMI) 19.4 Finger Stick Blood Glucose 270 Intake and Output for Last 24 Hours 12/14/17 12/15/17 12/16/17 23:59 23:59 23:59 Intake Total 2668 / 2668 2929 / 2929 Balance 2668 / 2668 2929 / 2929 Laboratory Tests Past 24 Hrs 12/16/17 12/16/17 12/16/17 05:08 05:08 05:08 WBC 5.3 RBC 3.53 L Hgb 11.8 L Hct 32.6 L MCV 92.4 MCH 33.4 H MCHC 36.2 H RDW 12.4 RDW Differential 42.0 Plt Count 126 L MPV 10.5 Immature Gran % (Auto) 0.600 Neut % (Auto) 47.8 Lymph % (Auto) 42.5 H Haskell % (Auto) 6.7 Eos % (Auto) 2.2 Baso % (Auto) 0.2 Absolute Neuts (auto) 2.6 Absolute Lymphs (auto) 2.27 Total Counted Not Reportable Sodium 137 Potassium 3.6 Chloride 104 Carbon Dioxide 27.0 Anion Gap 6 BUN 5 L Creatinine 0.58 L Estim Creat Clear Calc 144.23 Est GFR (MDRD) Af Amer 190 Est GFR (MDRD) Non-Af 157 BUN/Creatinine Ratio 8.7 L Glucose 305 H Hemoglobin A1c 13.2 H Calcium 7.6 L Total Bilirubin 0.50 AST 59 H ALT 69 H Alkaline Phosphatase 69 Total Protein 6.5 Albumin 2.3 L Globulin 4.2 Albumin/Globulin Ratio 0.5 L Lipase 176 POC Glucose 12/16/17 12/16/17 12/16/17 12:52 11:19 05:49 POC Glucose 279 H 270 H 334 H 12/15/17 12/15/17 12/15/17 22:13 17:17 14:12 POC Glucose 372 H 299 H 300 H Clinical Impression(s) from Imaging Studies cholangiogram 12/16/17 09:36 IMPRESSION: Unremarkable intraoperative cholangiogram. Electronically Signed: Nicolás Vinson MD at 11:12 EST Tel [phone], Service support , Assessment/Plan Active and Suspected Problems Acute pancreatitis (Acute) Gallstone pancreatitis (Acute) This is a 52 years old male patient with a because of abdominal pain, found to have acute gallstone pancreatitis status post laparoscopic cholecystectomy. #1 acute gallstone pancreatitis: Status post laparoscopic cholecystectomy and intraoperative cholangiogram, postop day 1. Patient just returned back from OR. Vital signs are stable. He is complaining of generalized abdominal pain. His lipase returned back to normal. Liver transaminases are trending down. He is on IV hydromorphone as needed for pain, IV antiemetics and IV fluids. General surgeon on the case. Plan: Continue same treatment, repeat CBC, CMP and lipase tomorrow morning. #2 uncontrolled type 2 diabetes mellitus: Hemoglobin A1c is 13.2. Blood sugar has been in the range of 200-300. He is on Levemir insulin once daily and NovoLog 3 times daily 5 units. Plan: Increase Levemir to 8 units twice daily, increase pre-meal NovoLog to 8 units 3 times daily #3 chronic left first toe ulcer: Without evidence of acute infection. X-ray showed no evidence of acute osteomyelitis. Patient has been following up with podiatry as outpatient. #4 hypertension: Blood pressure stable, he is only on IV hydralazine as needed. #5 hyperlipidemia: Statins on hold. #6 DVT prophylaxis: Subcu Lovenox. This note was generated with [employer] dictation software. It may contain incorrect words, spelling, and punctuation that were not noted in checking the note before signing. Code Visit Inpatient E&M: 75617 Subs Hosp L2
[2017-12-16] MEDS: 0.9% Normal Saline 1,000 ML 75 ML IV (14:55)
[2017-12-16 17:07] LABS: Bedside Glucose 332 mg/dL (70-110)
[2017-12-16] MEDS: Glucerna Shake 120 ML LIQUID PO ×2 (18:07→21:21)
[2017-12-16] MEDS: oxyCODONE 5 MG Tablet PO ×2 (18:51→23:01)
[2017-12-16] MEDS: Acetaminophen 325 MG Tablet 650 MG PO (19:46)
[2017-12-16 21:36] LABS: Bedside Glucose 339 mg/dL (70-110)
--- NOTE | 2017-12-16 22:42 | NUR.TO.PHY ---
Patient given diabetic compliant snack. Another nurse found patient putting back this snack and getting regular sodas and sugar snacks. Patient not open to education at this time about diabetic diet and wound healing.
[2017-12-17] VITALS: PULSE 86
[2017-12-17] MEDS: 0.9% NaCl Peripheral Flush Adult/Peds IV ×2 (01:28→06:09)
[2017-12-17] MEDS: HYDROmorphone 1 MG/ML Syringe IV ×2 (01:28→06:09)
[2017-12-17 01:36] VITALS: BP 130/87; PULSE 92; RESP 16; TEMP 36.9; O2SAT 100
--- NOTE | 2017-12-17 02:09 | NURSING ---
Verbal handoff to WOOD Freire
[2017-12-17] MEDS: Acetaminophen 325 MG Tablet 650 MG PO (03:23)
[2017-12-17 03:25] VITALS: BP 137/91; PULSE 89; RESP 18; TEMP 36.7; O2SAT 96
[2017-12-17 04:00] VITALS: PULSE 92
[2017-12-17] MEDS: oxyCODONE 5 MG Tablet PO ×2 (04:42→08:39)
[2017-12-17] MEDS: 0.9% Normal Saline 1,000 ML 75 ML IV (04:42)
[2017-12-17 05:56] LABS: Absolute Lymphocyte Count 1.95 X10^3/ul (0.83-4.51); Absolute Neutrophil Count 3.7 X10^3/uL (2.0-7.7); Basophil# 0.01 X10^3/uL; Basophil% 0.2 % (0-1); Eosinophil# 0.09 X10^3/uL; Eosinophils% 1.4 % (0-5); Hematocrit 30.8 % (40-54); Hemoglobin 11.1 g/dl (13.0-16.5); Lymphocyte # 1.95 X10^3/ul (4.0); Lymphocyte % 30.9 % (19-41); Mean Corpuscular Hgb 33.5 pg (27.0-32.0); Mean Corpuscular Volume 93.1 fL (80-94); Monocyte# 0.49 X10^3/uL; Monocyte% 7.8 % (0-10); Neutrophil # 3.74 X10^3/uL (2.7-7.7); Neutrophil % 59.2 % (47-70); Platelet Count 122 K/mm3 (150-450); RBC Distribution Width CV 11.6 % (11.6-14.6); RBC Distribution Width SD 38.4 fl (35.1-43.9); Red Blood Count 3.31 M/mm3 (4.6-6.2); White Blood Count 6.3 K/mm3 (4.4-11.0)
[2017-12-17 06:03] LABS: POSITIVE COUNT NO; POSITIVE DIFFERENTIAL NO; POSITIVE MORPHOLOGY NO
[2017-12-17 06:13] LABS: ALB/GLOB Ratio 0.6 RATIO (0.9-2.4); AST(SGOT) 85 U/L (15-37); Alanine Aminotransfer ALT/SGPT 80 U/L (16-61); Albumin, Serum 2.3 g/dL (3.2-5.0); Alkaline Phosphatase 68 U/L (45-117); Anion Gap 6 (5-15); BUN 4 mg/dL (7-18); BUN/Creat Ratio 5.5 RATIO (10-20); Calcium,Total 7.6 mg/dL (8.5-10.1); Chloride 102 mmol/L (98-107); Creatinine, Serum 0.73 mg/dL (0.70-1.30); EST Glomerular Filtration Rate 121 mL/min (>60); Est Glom Filt Rate - Afr Amer 146 mL/min (>60); Glucose 276 mg/dL (74-106); Lipase 69 U/L (73-393); Potassium 3.7 mmol/L (3.5-5.1); Protein, Total 6.3 g/dL (6.4-8.2); Sodium Level 135 mmol/L (136-145)
[2017-12-17 07:25] VITALS: BP 137/87; PULSE 84; RESP 18; TEMP 36.9; O2SAT 97
[2017-12-17 07:36] LABS: Bedside Glucose 249 mg/dL (70-110)
[2017-12-17] MEDS: Glucerna Shake 120 ML LIQUID PO (08:41)
--- NOTE | 2017-12-17 09:12 | PCM.DC ---
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 Your food should be the consistency of: Regular Discharge Activity: Return to Normal Activity, May Not Drive - for 2-3 days or while taking narcotic pain medicataions., - - Do not drive, work heavy equipment or sign legal documents for 24 hours. May shower in (days): 1 - with the bandage in place. Weight Bearing Status: Weight bearing as tolerated Additional Activity Instructions:: Pain medication may cause nausea. You should typically eat light foods as you take your pain medications. Pain medication may also cause constipation. If this is a problem for you, please discuss with your doctor. Call your doctor if your incision/area has: Continuous Slow Oozing, Sudden Increased Bleeding, Increased Pain/ Swelling, Increased Redness, Foul Smelling Discharge, Fever of 101 or Higher Call your doctor if you observe: Fever of 101 or Higher, Shortness of breath, Dizziness, Fainting spells, Chest pain, Increased palpitations (irregular heartbeat), Uncontrolled pain Suture Line Care: Avoid Pulling/Pushing, Avoid Pinching/Bending Additional Dressing/Incision Instructions:: Leave operative bandaids on for 2 days. When you remove dressing, leave Steri-Strips on until your follow-up appointment, or until the Steri-Strips fall off on their own. Instructions: Discharge Instructions for Acute Pancreatitis, Using a Blood Sugar Log, Hyperglycemia (High Blood Sugar), Hypoglycemia (Low Blood Sugar), How to Check Your Blood Sugar Allergies/Adverse Reactions: Allergies morphine Allergy (Verified 12/15/17 02:13) Other pt states gets very bad headaches from morphine Medications to take at Discharge Atorvastatin Calcium [Lipitor] 40 mg PO QHS 02/08/17 Lisinopril [Zestril] 10 mg PO DAILY 02/08/17 Insulin Glargine,Hum.rec.anlog [Basaglar Kwikpen U-100] 20 unit SQ QHS 10/06/17 Insulin Lispro [Humalog] 10 unit SQ TIDCM 10/06/17 Oxycodone HCl/Acetaminophen [Percocet 5/325] 1 - 2 tablet PO Q4H PRN PRN 7 Days #40 tablet 12/16/17 The following prescriptions were given: Oxycodone HCl/Acetaminophen [Percocet 5/325] 1 - 2 tablet PO Q4H PRN PRN 7 Days #40 tablet PRN Reason: Pain Primary Care Physician: Timothy Fisher Chi, MD [Primary Care Provider] - Please follow up with your Primary Care Physician in: 3-4 weeks. Please Follow Up With: Tay Ramirez MD When: call to schedule 2 week follow up appt [phone] Please Follow Up With: Malgorzata Mckee BARK FITTER-C When: Wednesday
--- NOTE | 2017-12-17 09:15 | DCINST_ITS ---
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 Your food should be the consistency of: Regular Discharge Activity: Return to Normal Activity, May Not Drive - for 2-3 days or while taking narcotic pain medicataions., - - Do not drive, work heavy equipment or sign legal documents for 24 hours. May shower in (days): 1 - with the bandage in place. Weight Bearing Status: Weight bearing as tolerated Additional Activity Instructions:: Pain medication may cause nausea. You should typically eat light foods as you take your pain medications. Pain medication may also cause constipation. If this is a problem for you, please discuss with your doctor. Call your doctor if your incision/area has: Continuous Slow Oozing, Sudden Increased Bleeding, Increased Pain/ Swelling, Increased Redness, Foul Smelling Discharge, Fever of 101 or Higher Call your doctor if you observe: Fever of 101 or Higher, Shortness of breath, Dizziness, Fainting spells, Chest pain, Increased palpitations (irregular heartbeat), Uncontrolled pain Suture Line Care: Avoid Pulling/Pushing, Avoid Pinching/Bending Additional Dressing/Incision Instructions:: Leave operative bandaids on for 2 days. When you remove dressing, leave Steri-Strips on until your follow-up appointment, or until the Steri-Strips fall off on their own. Instructions: Discharge Instructions for Acute Pancreatitis, Using a Blood Sugar Log, Hyperglycemia (High Blood Sugar), Hypoglycemia (Low Blood Sugar), How to Check Your Blood Sugar Allergies/Adverse Reactions: Allergies morphine Allergy (Verified 12/15/17 02:13) Other pt states gets very bad headaches from morphine Medications to take at Discharge Atorvastatin Calcium [Lipitor] 40 mg PO QHS 02/08/17 Lisinopril [Zestril] 10 mg PO DAILY 02/08/17 Insulin Glargine,Hum.rec.anlog [Basaglar Kwikpen U-100] 20 unit SQ QHS 10/06/17 Insulin Lispro [Humalog] 10 unit SQ TIDCM 10/06/17 Oxycodone HCl/Acetaminophen [Percocet 5/325] 1 - 2 tablet PO Q4H PRN PRN 7 Days #40 tablet 12/16/17 The following prescriptions were given: Oxycodone HCl/Acetaminophen [Percocet 5/325] 1 - 2 tablet PO Q4H PRN PRN 7 Days #40 tablet PRN Reason: Pain Primary Care Physician: Timothy Fisher Chi, MD [Primary Care Provider] - Please follow up with your Primary Care Physician in: 3-4 weeks. Please Follow Up With: Tay Ramirez MD When: call to schedule 2 week follow up appt [phone] Please Follow Up With: Malgorzata Mckee TELECOM ANALYST-C When: Wednesday
[2017-12-17 09:35] VITALS: BP 137/87; PULSE 84; RESP 18; TEMP 36.9; O2SAT 97
--- NOTE | 2017-12-17 11:15 | CASEMGMT ---
Message left on pt's cell phone with time/date of appointment for MARCELINA Mckee and office phone number. Tracy RON RN ACM
--- NOTE | 2017-12-17 14:30 | PCM.DC.SUM ---
Discharge Date and Diagnosis Date of Admission: 12/15/17 Date of Discharge: 12/17/17 - Primary Discharge Diagnosis #1 acute gallstone pancreatitis. #2 status post laparoscopic cholecystectomy. #3 uncontrolled type 2 diabetes mellitus. 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 Circumferential wall thickening of the colon this may be partially secondary to its incompletely distended state however cannot exclude underlying mild colitis. Fluid-filled distended urinary bladder. Atherosclerosis. Electronically Signed: Sanaz Arias MD at 18:49 EST Tel , Service support , Gallbladder Ultrasound 12/14/17 18:56 IMPRESSION: Distended gallbladder associated with cholelithiasis and possible adenomyomatosis. Electronically Signed: Sanaz Arias MD at 21:01 EST Tel , Service support , Foot X-Ray 12/14/17 21:45 IMPRESSION: No gross evidence of osteomyelitis. Atherosclerosis. Mild degenerative changes. Electronically Signed: Sanaz Arias MD at 22:05 EST Tel , Service support , Cholangiogram 12/16/17 09:36 IMPRESSION: Unremarkable intraoperative cholangiogram. Electronically Signed: Nicolás Vinson MD at 11:12 EST Tel [phone], Service support , Consultations 12/15/17 04:17 Consult: Onc/Wound/animal bounty hunter Routine Comment: left 1st toe ulcer Dr. ramirez, general surgery. Operations: cholecystecomy - Laparoscopic with intraoperative cholangiogram. Summary of Care Provided: Patient seen and examined on the day of discharge and appeared to be stable to be discharged home. His abdominal pain is tolerable, he has been tolerating diet. Denied nausea or vomiting. Vital signs are stable. - Physical Exam General: Alert, Oriented x3, Cooperative, No apparent distress. HEENT: Atraumatic, PERRLA, EOMI. Neck: Supple, No JVD, Negative Carotid Bruits, Trachea Midline, Thyroid Normal. Lungs: Diminished breath sounds bilateral, otherwise clear, No rhonchi, No wheeze, No rales. Cardiovascular: Regular rate, Regular Rhythm, Normal S1, Normal S2, PMI Normal. Abdomen: Bowel Sounds Present, Soft, Tender, Non-Distended, No Hepato-splenomegaly. Extremities: No clubbing, No cyanosis, No edema Skin: No rashes, No breakdown Neurological: Neuro grossly intact Vital Signs are stable. Hospital course: The patient is a 52 year old M admitted because of abdominal pain and he was found to have acute gallstone pancreatitis. His lipase on admission was 1999. His liver transaminases were slightly elevated but his total bilirubin and alkaline phosphatase were normal. CT scan abdomen and pelvis with contrast revealed cholelithiasis with normal pancreas. Ultrasound gallbladder revealed distended gallbladder without evidence of acute cholecystitis, CBD diameter was 4.8 mm. Patient was treated with IV fluids, IV pain medications, IV antiemetics. his lipase came down back to normal. General surgery consulted and recommended laparoscopic cholecystectomy. Patient underwent laparoscopic cholecystectomy with intraoperative cholangiogram that revealed no evidence of CBD filling defects after the surgery. Today which is 1 day after surgery, patient tolerated diet, pain is tolerable and he has no nausea vomiting. Vital signs are stable. He does have a history of type 2 diabetes mellitus and his hemoglobin A1c was 13.2. His sugar has been fluctuating during this admission in the 300s. Patient discharged home in a stable medical condition, discharged on Percocet as needed for pain, continuing on glargine insulin as well as Humalog, highly recommended follow-up with endocrinology as outpatient, he will follow-up with general surgery according to Dr. Ramirez recommendation. Discharge Diet: Light diet - advance as tolerated Discharge Activity: Return to Normal Activity, May Not Drive - for 2-3 days or while taking narcotic pain medicataions., - - Do not drive, work heavy equipment or sign legal documents for 24 hours. May shower in (days): 1 - with the bandage in place. Weight Bearing Status: Weight bearing as tolerated Additional Activity Instructions:: Pain medication may cause nausea. You should typically eat light foods as you take your pain medications. Pain medication may also cause constipation. If this is a problem for you, please discuss with your doctor. Call your doctor if your incision/area has: Continuous Slow Oozing, Sudden Increased Bleeding, Increased Pain/ Swelling, Increased Redness, Foul Smelling Discharge, Fever of 101 or Higher Call your doctor if you observe: Fever of 101 or Higher, Shortness of breath, Dizziness, Fainting spells, Chest pain, Increased palpitations (irregular heartbeat), Uncontrolled pain Suture Line Care: Avoid Pulling/Pushing, Avoid Pinching/Bending Additional Dressing/Incision Instructions:: Leave operative bandaids on for 2 days. When you remove dressing, leave Steri-Strips on until your follow-up appointment, or until the Steri-Strips fall off on their own. Home Medications: Medications to take at Discharge Atorvastatin Calcium [Lipitor] 40 mg PO QHS 02/08/17 Lisinopril [Zestril] 10 mg PO DAILY 02/08/17 Insulin Glargine,Hum.rec.anlog [Basaglar Kwikpen U-100] 20 unit SQ QHS 10/06/17 Insulin Lispro [Humalog] 10 unit SQ TIDCM 10/06/17 Oxycodone HCl/Acetaminophen [Percocet 5/325] 1 - 2 tablet PO Q4H PRN PRN 7 Days #40 tablet 12/16/17 Following Prescrptions Were Given to Patient: Oxycodone HCl/Acetaminophen [Percocet 5/325] 1 - 2 tablet PO Q4H PRN PRN 7 Days #40 tablet PRN Reason: Pain Primary Care Physician: Timothy Fisher Chi, MD [Primary Care Provider] - Please follow up with your Primary Care Physician in: 3-4 weeks. Please Follow Up With: Tay Ramirez MD When: call to schedule 2 week follow up appt [phone] Please Follow Up With: Malgorzata Mckee NP-C When: Wednesday Patient Instructions: Using a Blood Sugar Log, Hyperglycemia (High Blood Sugar), Hypoglycemia (Low Blood Sugar), How to Check Your Blood Sugar, Discharge Instructions for Acute Pancreatitis Disposition: Home Minutes spent on discharge:: 32 Patient Condition:: Stable Meaningful Use Info Meaningful Use Diagnoses (Choose all that apply): None applicable Code Visit Inpatient E&M: 06564 Disch Hosp
--- NOTE | 2017-12-17 14:37 | DS.PCM_ITS ---
Discharge Date and Diagnosis Date of Admission: 12/15/17 Date of Discharge: 12/17/17 - Primary Discharge Diagnosis #1 acute gallstone pancreatitis. #2 status post laparoscopic cholecystectomy. #3 uncontrolled type 2 diabetes mellitus. 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 Circumferential wall thickening of the colon this may be partially secondary to its incompletely distended state however cannot exclude underlying mild colitis. Fluid-filled distended urinary bladder. Atherosclerosis. Electronically Signed: Sanaz Arias MD at 18:49 EST Tel , Service support , Gallbladder Ultrasound 12/14/17 18:56 IMPRESSION: Distended gallbladder associated with cholelithiasis and possible adenomyomatosis. Electronically Signed: Sanaz Arias MD at 21:01 EST Tel , Service support , Foot X-Ray 12/14/17 21:45 IMPRESSION: No gross evidence of osteomyelitis. Atherosclerosis. Mild degenerative changes. Electronically Signed: Sanaz Arias MD at 22:05 EST Tel , Service support , Cholangiogram 12/16/17 09:36 IMPRESSION: Unremarkable intraoperative cholangiogram. Electronically Signed: Nicolás Vinson MD at 11:12 EST Tel [phone], Service support , Consultations 12/15/17 04:17 Consult: Onc/Wound/manager reading Routine Comment: left 1st toe ulcer Dr. ramirez, general surgery. Operations: cholecystecomy - Laparoscopic with intraoperative cholangiogram. Summary of Care Provided: Patient seen and examined on the day of discharge and appeared to be stable to be discharged home. His abdominal pain is tolerable, he has been tolerating diet. Denied nausea or vomiting. Vital signs are stable. - Physical Exam General: Alert, Oriented x3, Cooperative, No apparent distress. HEENT: Atraumatic, PERRLA, EOMI. Neck: Supple, No JVD, Negative Carotid Bruits, Trachea Midline, Thyroid Normal. Lungs: Diminished breath sounds bilateral, otherwise clear, No rhonchi, No wheeze, No rales. Cardiovascular: Regular rate, Regular Rhythm, Normal S1, Normal S2, PMI Normal. Abdomen: Bowel Sounds Present, Soft, Tender, Non-Distended, No Hepato- splenomegaly. Extremities: No clubbing, No cyanosis, No edema Skin: No rashes, No breakdown Neurological: Neuro grossly intact Vital Signs are stable. Hospital course: The patient is a 52 year old M admitted because of abdominal pain and he was found to have acute gallstone pancreatitis. His lipase on admission was 1999. His liver transaminases were slightly elevated but his total bilirubin and alkaline phosphatase were normal. CT scan abdomen and pelvis with contrast revealed cholelithiasis with normal pancreas. Ultrasound gallbladder revealed distended gallbladder without evidence of acute cholecystitis, CBD diameter was 4.8 mm. Patient was treated with IV fluids, IV pain medications, IV antiemetics. his lipase came down back to normal. General surgery consulted and recommended laparoscopic cholecystectomy. Patient underwent laparoscopic cholecystectomy with intraoperative cholangiogram that revealed no evidence of CBD filling defects after the surgery. Today which is 1 day after surgery, patient tolerated diet, pain is tolerable and he has no nausea vomiting. Vital signs are stable. He does have a history of type 2 diabetes mellitus and his hemoglobin A1c was 13.2. His sugar has been fluctuating during this admission in the 300s. Patient discharged home in a stable medical condition, discharged on Percocet as needed for pain, continuing on glargine insulin as well as Humalog, highly recommended follow-up with endocrinology as outpatient, he will follow-up with general surgery according to Dr. Ramirez recommendation. Discharge Diet: Light diet - advance as tolerated Discharge Activity: Return to Normal Activity, May Not Drive - for 2-3 days or while taking narcotic pain medicataions., - - Do not drive, work heavy equipment or sign legal documents for 24 hours. May shower in (days): 1 - with the bandage in place. Weight Bearing Status: Weight bearing as tolerated Additional Activity Instructions:: Pain medication may cause nausea. You should typically eat light foods as you take your pain medications. Pain medication may also cause constipation. If this is a problem for you, please discuss with your doctor. Call your doctor if your incision/area has: Continuous Slow Oozing, Sudden Increased Bleeding, Increased Pain/ Swelling, Increased Redness, Foul Smelling Discharge, Fever of 101 or Higher Call your doctor if you observe: Fever of 101 or Higher, Shortness of breath, Dizziness, Fainting spells, Chest pain, Increased palpitations (irregular heartbeat), Uncontrolled pain Suture Line Care: Avoid Pulling/Pushing, Avoid Pinching/Bending Additional Dressing/Incision Instructions:: Leave operative bandaids on for 2 days. When you remove dressing, leave Steri-Strips on until your follow-up appointment, or until the Steri-Strips fall off on their own. Home Medications: Medications to take at Discharge Atorvastatin Calcium [Lipitor] 40 mg PO QHS 02/08/17 Lisinopril [Zestril] 10 mg PO DAILY 02/08/17 Insulin Glargine,Hum.rec.anlog [Basaglar Kwikpen U-100] 20 unit SQ QHS 10/06/17 Insulin Lispro [Humalog] 10 unit SQ TIDCM 10/06/17 Oxycodone HCl/Acetaminophen [Percocet 5/325] 1 - 2 tablet PO Q4H PRN PRN 7 Days #40 tablet 12/16/17 Following Prescrptions Were Given to Patient: Oxycodone HCl/Acetaminophen [Percocet 5/325] 1 - 2 tablet PO Q4H PRN PRN 7 Days #40 tablet PRN Reason: Pain Primary Care Physician: Timothy Fisher Chi, MD [Primary Care Provider] - Please follow up with your Primary Care Physician in: 3-4 weeks. Please Follow Up With: Tay Ramirez MD When: call to schedule 2 week follow up appt [phone] Please Follow Up With: Malgorzata Mckee NP-C When: Wednesday Patient Instructions: Using a Blood Sugar Log, Hyperglycemia (High Blood Sugar) , Hypoglycemia (Low Blood Sugar), How to Check Your Blood Sugar, Discharge Instructions for Acute Pancreatitis Disposition: Home Minutes spent on discharge:: 32 Patient Condition:: Stable Meaningful Use Info Meaningful Use Diagnoses (Choose all that apply): None applicable Code Visit Inpatient E&M: 44657 Disch Hosp
== END 2017-12-17 09:35 | disposition home or self-care (01) | DRG 493 ==
LOC: ED 16:37 → MS2 12-15 00:12
PROVIDERS: Anesthesiology; Surgery; Admitting Provider Internal Medicine; Emergency Provider Emergency Medicine; Family Provider Family Medicine Geriatric Medicine; PCP Family Medicine Geriatric Medicine; Visit Provider Hospitalist
PROC: 0FT44ZZ Resection of Gallbladder, Percutaneous Endoscopic Approach (ICD-10-PCS; CPT 47610; principal; 2017-12-16 08:40)
DX: K85.10 Biliary acute pancreatitis without necrosis or infection (principal); E11.65 Type 2 diabetes mellitus with hyperglycemia; E11.621 Type 2 diabetes mellitus with foot ulcer; E87.1 Hypo-osmolality and hyponatremia; L97.529 Non-pressure chronic ulcer of other part of left foot with unspecified severity; I10 Essential (primary) hypertension; Z79.4 Long term (current) use of insulin; E78.5 Hyperlipidemia, unspecified; F17.200 Nicotine dependence, unspecified, uncomplicated
CPT/HCPCS: 36415; 73630; 74177; 74300; 76000; 76705; 80048; 80053; 80076; 82962; 83036; 83690; 85025; 88304; 88305; 93005; 97530; 97802; 99284; 99406; J7030; Q9967; A4216; J2405

== ENCOUNTER 2017-12-31 23:49 | Emergency (ER) | payer MEDICAID, SELFPAY ==
[2017-12-31 23:51] VITALS: BP 164/101; PULSE 91; RESP 12; TEMP 36.8; O2SAT 100; BMI 21.5
--- NOTE | 2018-01-01 00:05 | CT_ITS ---
STUDY: CT ABDOMEN AND PELVIS WITH CONTRAST REASON FOR EXAM: Male, 52 years old. Abdominal pain. Status post cholecystectomy 2 weeks ago. RADIATION DOSAGE (If Supplied By Facility): CTDIvol = ( 9.25 ) mGy, DLP = ( 454.91 ) mGycm TECHNIQUE: Transaxial images were obtained from the dome of the diaphragm to the symphysis pubis without oral contrast. 100 ml of Isovue 300 contrast was administered. Sagittal and coronal images were reconstructed. Individualized dose optimization techniques were used for this CT. COMPARISON: December 14, 2017. Gallbladder ultrasound December 14, 2017. FINDINGS: The visualized lung bases are unremarkable. The visualized portions of the heart are within normal limits. Normal liver. Gallbladder absent compatible with cholecystectomy. A 3 mm calcification is present within the gallbladder fossa axial image 30 series 2 and coronal image 48. No intrahepatic biliary ductal dilatation. The common duct is not dilated. Normal spleen. Normal pancreas. Normal bilateral adrenal glands. Normal right kidney. Normal left kidney. Normal visualized stomach. Normal small intestine. Normal colon. No wall thickening. There are surgical clips in the region of the appendix consistent with a prior appendectomy. Normal abdominal aorta. Normal inferior vena cava. Normal retroperitoneum. No intra-abdominal free air. Normal urinary bladder. Prostate gland not enlarged. Normal abdominal wall. L5-S1 disc space narrowing, vacuum disc and marginal osteophytes. CT/Abdomen/Pelvis W IV Cont ONLY IMPRESSION: No acute findings in the abdomen or pelvis. Status post cholecystectomy. 3 mm calcification in the gallbladder fossa which probably does not have clinical significance. There is no intra or extrahepatic biliary ductal dilatation. Electronically Signed: Pardeep Jolly MD at 2:35 EST , Service support ,
[2018-01-01] MEDS: fentaNYL 100 MCG/2 ML Ampul 50 MCG IV (00:18)
[2018-01-01] MEDS: 0.9% Normal Saline 1,000 ML 150 ML IV (00:19)
[2018-01-01] MEDS: Ondansetron 4 MG/2 ML Vial IV (00:19)
[2018-01-01 00:49] LABS: International Normalized Ratio 1.1; Partial Thromboplast Time 25.6 Seconds (24.1-36.2); Prothrombin Time (Protime)PT. 13.7 SECONDS (11.7-14.9)
[2018-01-01 00:50] LABS: ALB/GLOB Ratio 0.6 RATIO (0.9-2.4); AST(SGOT) 82 U/L (15-37); Alanine Aminotransfer ALT/SGPT 103 U/L (16-61); Albumin, Serum 3.1 g/dL (3.2-5.0); Alkaline Phosphatase 93 U/L (45-117); Anion Gap 9 (5-15); BUN 8 mg/dL (7-18); BUN/Creat Ratio 7.8 RATIO (10-20); Calcium,Total 8.6 mg/dL (8.5-10.1); Chloride 96 mmol/L (98-107); Creatinine, Serum 1.02 mg/dL (0.70-1.30); EST Glomerular Filtration Rate 82 mL/min (>60); Est Glom Filt Rate - Afr Amer 99 mL/min (>60); Estimated Creatinine Clearance 89.68 ml/min; Globulin 5.3 g/dL (2.2-4.2); Glucose 675 mg/dL (74-106); Lipase 141 U/L (73-393); Potassium 4.2 mmol/L (3.5-5.1); Protein, Total 8.4 g/dL (6.4-8.2); Sodium Level 133 mmol/L (136-145)
--- NOTE | 2018-01-01 00:50 | ED.RN ---
LAB CALLED WITH CRITICAL LAB RESULTS. GLUCOSE 675. DR. LANDERS MADE AWARE. NO NEW ORDERS AT THIS TIME
[2018-01-01 00:51] LABS: Absolute Lymphocyte Count 1.35 X10^3/ul (0.83-4.51); Absolute Neutrophil Count 2.4 X10^3/uL (2.0-7.7); Basophil# 0.01 X10^3/uL; Basophil% 0.2 % (0-1); Eosinophil# 0.06 X10^3/uL; Eosinophils% 1.4 % (0-5); Hematocrit 37.5 % (40-54); Hemoglobin 13.3 g/dl (13.0-16.5); Lymphocyte # 1.35 X10^3/ul (4.0); Mean Corp Hgb Conc 35.5 g/gl (32-36); Mean Corpuscular Hgb 33.3 pg (27.0-32.0); Monocyte# 0.47 X10^3/uL; Monocyte% 10.8 % (0-10); Neutrophil # 2.43 X10^3/uL (2.7-7.7); Neutrophil % 55.9 % (47-70); Platelet Count 120 K/mm3 (150-450); RBC Distribution Width CV 12.8 % (11.6-14.6); RBC Distribution Width SD 43.7 fl (35.1-43.9); Red Blood Count 3.99 M/mm3 (4.6-6.2); White Blood Count 4.4 K/mm3 (4.4-11.0)
[2018-01-01 00:52] LABS: POSITIVE COUNT NO; POSITIVE DIFFERENTIAL NO; POSITIVE MORPHOLOGY NO
[2018-01-01] MEDS: 0.9% Normal Saline 1,000 ML 999 ML IV (01:00)
[2018-01-01 02:02] VITALS: BP 130/86; PULSE 87; RESP 17; O2SAT 98
--- NOTE | 2018-01-01 02:03 | ED.DCSUM_ITS ---
- ER Visit Summary Date of Service: 01/01/18 Chief Complaint: Abdominal injury History of Present Illness: The patient is a 52 M presents by EMS status post mechanical fall in the shower on the bathtub. Injury to right abdomen. No head injuries. Patient postop cholecystectomy on December [address] Ramirez. States out of his Percocets a week ago. He has a follow-up on Wednesday. States he does not take Motrin due to agitating his stomach. He has not used Tylenol as it does not help. States surgery was done as an inpatient. States was doing fine until his injury. Normal bowel movements. Nausea without vomiting. Physical Examination: General: Alert and oriented ?3, mild distress HEENT: Normocephalic, atraumatic. Moist mucosa membranes Neck: supple, nontender. Cardiovascular: Regular rate and rhythm, no murmurs. No chest wall tenderness. Respiratory: Normal breath sounds, symmetric, no distress Abdomen: Soft, right side abdominal tenderness, no ecchymosis, nondistended. Laparoscopic incisions with scabbing, clean, dry, intact. Extremities: Nontender, no edema, pulses intact ?4 Neuro: no focal neurological deficits. Test Results: WBC 4.4, hemoglobin 13.3. Creatinine 1.02. Glucose 675, anion gap of 9. Lipase 141. Liver enzymes ALT 103, AST 82, alk phos 93. Direct bili 0.5. CT abdomen pelvis with IV contrast: No acute process. Emergency Department Course and Treatment: Patient presents report abdominal trauma. There is no chest wall pain. Is tender on right side. Trauma scan obtained which was negative. He was treated with fentanyl IV. Labs noted hyperglycemia with a normal anion gap. He is insulin-dependent diabetic. He is given NovoLog 20 units, recheck was 408. Discussed findings with the patient. States he needs take care of his diabetes with his insulin. He does have a follow-up appointment with Dr. Ramirez this Wednesday. Due to abdominal trauma, he will be given 12 Percocet to use. He will keep his follow-up appointment. He will see his PCP for his hyperglycemia. Treatment Plan: [] Disposition: Discharge Impression: 1. Abdominal contusion 2. Postop cholecystectomy 3. Hyperglycemia with history of diabetes This note was generated with [employer] software. It may contain incorrect words, spelling, and punctuation that were not noted in review of the chart prior to signing ED Disposition - Plan for ED Patient: Disposition: Home or Assisted Living Chief Complaint: Abd Pain Diagnosis: Abdominal contusion, Postop cholecystectomy, Hyperglycemia with a history of diabetes Instructions: ED Abdominal Injury Blunt Benign, ED Hyperglycemia Diabetic Prescriptions: Oxycodone HCl/Acetaminophen [Percocet 5/325] 1 tablet PO Q6H PRN PRN 3 Days #12 tablet PRN Reason: Pain Referrals: Timothy Fisher Chi, MD [Primary Care Provider] - 3-5 Days Tay Ramirez MD [STAFF PHYSICIAN] - Keep [facility] appointment
[2018-01-01] MEDS: fentaNYL 100 MCG/2 ML Ampul 25 MCG IV (02:35)
[2018-01-01 02:46] LABS: Bedside Glucose 408 mg/dL (70-110)
[2018-01-01 03:48] VITALS: BP 149/108; PULSE 86; RESP 20; O2SAT 98
== END 2018-01-01 04:10 | disposition home or self-care (01) ==
PROVIDERS: Emergency Provider Emergency Medicine; Family Provider Family Medicine Geriatric Medicine; PCP Family Medicine Geriatric Medicine
DX: S30.1XXA Contusion of abdominal wall, initial encounter (principal); E11.65 Type 2 diabetes mellitus with hyperglycemia; Z98.890 Other specified postprocedural states; I10 Essential (primary) hypertension; E78.00 Pure hypercholesterolemia, unspecified; Z79.4 Long term (current) use of insulin; Z79.899 Other long term (current) drug therapy; W18.2XXA Fall in (into) shower or empty bathtub, initial encounter; Y93.E1 Activity, personal bathing and showering; Y92.002 Bathroom of unspecified non-institutional (private) residence as the place of occurrence of the external cause; Y99.8 Other external cause status
CPT/HCPCS: 74177; 80053; 82962; 83690; 85025; 85610; 85730; 96361; 96374; 96375; 96376; 99284; J7030; Q9967; A4216; J2405

== ENCOUNTER → 2018-01-05 16:24 | Outpatient (CLI) | payer MEDICAID, SELFPAY ==
[2018-01-05 17:54] LABS: Absolute Lymphocyte Count 2.32 X10^3/ul (0.83-4.51); Absolute Neutrophil Count 2.6 X10^3/uL (2.0-7.7); Basophil# 0.02 X10^3/uL; Basophil% 0.4 % (0-1); Eosinophil# 0.07 X10^3/uL; Eosinophils% 1.2 % (0-5); Hematocrit 36.6 % (40-54); Hemoglobin 13.2 g/dl (13.0-16.5); Lymphocyte # 2.32 X10^3/ul (4.0); Lymphocyte % 41.3 % (19-41); Mean Corp Hgb Conc 36.1 g/gl (32-36); Mean Corpuscular Hgb 33.3 pg (27.0-32.0); Mean Corpuscular Volume 92.4 fL (80-94); Mean Platelet Vol. 12.7 fl (6.2-12.0); Monocyte# 0.61 X10^3/uL; Monocyte% 10.9 % (0-10); Neutrophil # 2.56 X10^3/uL (2.7-7.7); Neutrophil % 45.5 % (47-70); Platelet Count 92 K/mm3 (150-450); RBC Distribution Width CV 12.4 % (11.6-14.6); Red Blood Count 3.96 M/mm3 (4.6-6.2); White Blood Count 5.6 K/mm3 (4.4-11.0)
[2018-01-05 17:57] LABS: POSITIVE COUNT NO; POSITIVE DIFFERENTIAL NO; POSITIVE MORPHOLOGY NO
[2018-01-05 19:21] LABS: ALB/GLOB Ratio 0.7 RATIO (0.9-2.4); AST(SGOT) 79 U/L (15-37); Alanine Aminotransfer ALT/SGPT 107 U/L (16-61); Albumin, Serum 3.5 g/dL (3.2-5.0); Alkaline Phosphatase 85 U/L (45-117); Anion Gap 9 (5-15); BUN 5 mg/dL (7-18); BUN/Creat Ratio 5.7 RATIO (10-20); Calcium,Total 8.7 mg/dL (8.5-10.1); Chloride 95 mmol/L (98-107); Creatinine, Serum 0.87 mg/dL (0.70-1.30); EST Glomerular Filtration Rate 98 mL/min (>60); Est Glom Filt Rate - Afr Amer 118 mL/min (>60); Glucose 498 mg/dL (74-106); Potassium 3.9 mmol/L (3.5-5.1); Protein, Total 8.5 g/dL (6.4-8.2); Sodium Level 130 mmol/L (136-145); Thyroid Stim Hormone (TSH) 1.88 uIU/mL (0.358-3.74)
== END ==
PROVIDERS: Family Provider Family Medicine Geriatric Medicine; PCP Family Medicine Geriatric Medicine; Visit Provider Family Medicine Geriatric Medicine
DX: I10 Essential (primary) hypertension (principal); E11.9 Type 2 diabetes mellitus without complications
CPT/HCPCS: 36415; 80053; 84443; 85025

== ENCOUNTER → 2018-01-06 13:20 | Outpatient (CLI) | payer MEDICAID, SELFPAY | PROVIDERS: Family Provider Family Medicine Geriatric Medicine; PCP Family Medicine Geriatric Medicine; Visit Provider Family Medicine Geriatric Medicine | DX: B18.2 Chronic viral hepatitis C (principal) | CPT/HCPCS: 36415; 87522 ==

== ENCOUNTER 2018-01-08 21:23 | Emergency (ER) | payer MEDICAID, SELFPAY ==
[2018-01-08 21:24] VITALS: BP 154/96; PULSE 102; RESP 16; TEMP 36.6; O2SAT 100; BMI 21.7
[2018-01-08] MEDS: fentaNYL 100 MCG/2 ML Ampul 50 MCG IM (22:17)
--- NOTE | 2018-01-08 22:32 | RAD_ITS ---
STUDY: X-RAY - LEFT FEMUR REASON FOR STUDY: Male, 52 years old. Pain. Fall. TECHNIQUE: Radiological exam, femur, minimum 2 views COMPARISON: None. FINDINGS: Normal visualized femur. Normal visualized soft tissue structure. Previous repair of patellar fracture. RAD/Femur Min 2 Views IMPRESSION: Normal x-ray examination of the femur. Electronically Signed: Aditya Villalobos MD at 23:09 EDT , Service support ,
[2018-01-08 23:11] VITALS: RESP 16
--- NOTE | 2018-01-08 23:13 | ED.DCSUM_ITS ---
- ER Visit Summary Date of Service: 01/08/18 Chief Complaint: Near fall History of Present Illness: The patient is a [address] Fisher. He reports that he slipped getting out of the shower tonight and did the splits. Cut himself. However, he reports that he has pain to the medial left thigh that is 10 out of 10 severity. Is worsened by movement and relieved by rest. He denies any numbness or weakness distally. He denies any other injury. No blow to the head or loss of consciousness. No neck, back, chest, abdomen, shoulder, wrist, or hip pain. Physical Examination: Vitals: Stable. Afebrile. Neck: No vertebral tenderness. Full ROM without difficulty. Cleared by NEXUS criteria. Back: No vertebral tenderness. General: A&O x 3. NAD. Cardiovascular exam: Regular rate and rhythm, no murmur, rub or gallop. Respiratory exam: Chest nontender. No crepitus. Clear to auscultation bilaterally. No wheezes or stridor. Abdominal exam: Soft, nontender, nondistended, normal bowel sounds. No pain in RUQ or LUQ specifically. No peritoneal signs. Extremity: Tenderness palpation over the medial side of his left thigh. He has no pain with internal/external rotation of his hip pain rated no pain with axial load at the knee or ankle. He has a 2+ dorsalis pedis pulse. Test Results: Femur x-ray is negative. Emergency Department Course and Treatment: An OARRS report was obtained which shows he is only had 3 prescriptions for opiates in the past year. She with fentanyl IM here and a dose of oxycodone p.o. He has been able to ambulate in the emergency department without difficulty. Treatment Plan: Patient will be discharged with prescription for [address] Rodriguez in 3-5 days not improving. Disposition: To home in improved and stable condition. Impression: 1. Left thigh strain. This note was generated with [employer] dictation software. It may contain incorrect words, spelling, and punctuation that were not noted in review of the chart prior to signing ED Disposition - Plan for ED Patient: Disposition: Home or Assisted Living Chief Complaint: Fall Instructions: ED Strain Groin Prescriptions: Oxycodone HCl/Acetaminophen [Percocet 5/325] 1 tablet PO Q6H PRN PRN 3 Days #12 tablet PRN Reason: Pain Referrals: Timothy Fisher Chi, MD [Primary Care Provider] - 3-5 Days if not improving
[2018-01-08] MEDS: oxyCODONE 5 MG Tablet PO ×2 (23:23)
== END 2018-01-08 23:27 | disposition home or self-care (01) ==
PROVIDERS: Emergency Provider Emergency Medicine; Family Provider Family Medicine Geriatric Medicine; PCP Family Medicine Geriatric Medicine
DX: S76.812A Strain of other specified muscles, fascia and tendons at thigh level, left thigh, initial encounter (principal); E11.9 Type 2 diabetes mellitus without complications; I10 Essential (primary) hypertension; E78.00 Pure hypercholesterolemia, unspecified; Z87.891 Personal history of nicotine dependence; Z79.4 Long term (current) use of insulin; Z79.899 Other long term (current) drug therapy; W01.0XXA Fall on same level from slipping, tripping and stumbling without subsequent striking against object, initial encounter; Y93.E1 Activity, personal bathing and showering; Y92.002 Bathroom of unspecified non-institutional (private) residence as the place of occurrence of the external cause; Y99.8 Other external cause status
CPT/HCPCS: 73552; 96372; 99284

== ENCOUNTER 2018-01-29 04:04 | Emergency (ER) | payer MEDICAID, SELFPAY ==
[2018-01-29 04:05] VITALS: BP 155/86; PULSE 95; RESP 18; TEMP 36.4; O2SAT 100; BMI 21.9
--- NOTE | 2018-01-29 04:11 | ED.VISSUMM ---
- ER Visit Summary Date of Service: 01/29/18 Chief Complaint: Left knee pain History of Present Illness: The patient is a 52 M who presents with left knee pain. He states he slipped on some ice yesterday. He landed directly onto the knee. He states that there was no twisting mechanism. His knee has been hurting. Worse to walk on. He took no medications for it at home. He has had a previous knee reconstruction in 1990. Physical Examination: Vital signs reviewed. Left knee exam reveals tenderness diffusely upon palpation. No swelling is noted. Extensor mechanism is intact. He does have good range of motion with pain on all movements. Drawer tests are negative. Test Results: Knee x-ray reveals an old ORIF of the patella. No acute findings Emergency Department Course and Treatment: Patient was treated with naproxen as well as [place] due to continued pain. Patient will be discharged with diflunisal. He will continue with ice at home and elevation. He will follow up with his PCP Treatment Plan: [] Disposition: Discharge Impression: Left knee contusion This note was generated with [employer] dictation software. It may contain incorrect words, spelling, and punctuation that were not noted in review of the chart prior to signing ED Disposition - Plan for ED Patient: Chief Complaint: Lower Extremity Injury Referrals: Timothy Fisher Chi, MD [Primary Care Provider] -
[2018-01-29] MEDS: Naproxen 500 MG Tablet PO (04:18)
--- NOTE | 2018-01-29 04:20 | RAD_ITS ---
STUDY: X-RAY - LEFT KNEE REASON FOR EXAM: Male, 52 years old. Knee pain after fall. TECHNIQUE: 3 view(s) of the knee. COMPARISON: Left femur January 08, 2018. FINDINGS: Normal visualized distal femur. Normal visualized proximal tibia and fibula. Normal proximal tibiofibular articulation. Normal medial femorotibial compartment. Normal lateral femorotibial compartment. Postoperative changes of open reduction internal fixation of a patellar fracture. Surgical hardware has not significantly changed compared to prior study study. The soft tissue structures are unremarkable. RAD/Knee 3 Views IMPRESSION: No acute findings in the knee. Postoperative changes of ORIF patellar fracture. Electronically Signed: Pardeep Jolly MD at 4:45 EDT , Service support ,
--- NOTE | 2018-01-29 04:52 | ED.DEP ---
ED Disposition - Plan for ED Patient: Disposition: Home or Assisted Living Chief Complaint: Lower Extremity Injury Instructions: ED Contusion Lower Ext Prescriptions: Diflunisal [Dolobid] 500 mg PO TID #20 tab Referrals: Timothy Fisher Chi, MD [Primary Care Provider] -
[2018-01-29] MEDS: HYDROcodone Bitartrate/Apap 5/325 Tablet PO (04:54)
[2018-01-29 04:56] VITALS: BP 156/95; PULSE 89; O2SAT 99
== END 2018-01-29 05:16 | disposition home or self-care (01) ==
PROVIDERS: Emergency Provider Emergency Medicine; Family Provider Family Medicine Geriatric Medicine; PCP Family Medicine Geriatric Medicine
DX: S80.02XA Contusion of left knee, initial encounter (principal); E11.40 Type 2 diabetes mellitus with diabetic neuropathy, unspecified; Z72.0 Tobacco use; Z79.4 Long term (current) use of insulin; Z79.899 Other long term (current) drug therapy; Z79.891 Long term (current) use of opiate analgesic; W00.0XXA Fall on same level due to ice and snow, initial encounter; Y93.01 Activity, walking, marching and hiking; Y92.89 Other specified places as the place of occurrence of the external cause; Y99.8 Other external cause status
CPT/HCPCS: 73562; 99285

== ENCOUNTER 2018-02-04 03:25 | Emergency (ER) | payer MEDICAID, SELFPAY ==
[2018-02-04 03:26] VITALS: BP 132/94; PULSE 109; RESP 18; TEMP 36.1; O2SAT 100; BMI 21.7
--- NOTE | 2018-02-04 04:35 | ED.VISSUMM ---
- ER Visit Summary Date of Service: 02/04/18 Chief Complaint: Bilateral lower extremity pain History of Present Illness: The patient is a 52 M nontraumatic lower extremity pain for the past 2 weeks. Seen by podiatry, was told he has neuropathy. No nerve conduction studies. He is already on gabapentin 300 mg for spinal stenosis. He is given Ultram's, states symptoms not improving with this. Appointment with pain management next week. No current establishment with pain management. History of diabetes. States unable to sleep over the past few days due to pain. Physical Examination: General: Alert and oriented ?3, no acute distress, cooperative HEENT: Normocephalic, atraumatic. Moist mucosa membranes Neck: supple, nontender. Cardiovascular: Regular rate and rhythm, no murmurs Respiratory: Normal breath sounds, symmetric, no distress Abdomen: Soft, nontender, nondistended Extremities: Lower extremities: Thin legs. DP pulse intact bilaterally. Soft compartments. Tender to light palpation. There is no erythema. No drainage. Neuro: no focal neurological deficits. Test Results: [] Emergency Department Course and Treatment: Patient vital signs stable. Recent diagnosis of neuropathy. Does have a history diabetes. No nerve conduction test has been performed. He is on gabapentin for which he states does not help.OARRS report noted no significant overlap, last prescription was a month ago. He had prescriptions for a gallbladder procedure. There is an appointment in 1 week with pain management. Patient given 4 tabs take-home oxycodone to use. Discuss seen his PCP for possible increasing his gabapentin. Further prescriptions we need right by his outpatient physicians. All questions were answered. Treatment Plan: [] Disposition: Discharge Impression: Bilateral lower extremity pain history of neuropathy. This note was generated with [employer] dictation software. It may contain incorrect words, spelling, and punctuation that were not noted in review of the chart prior to signing ED Disposition - Plan for ED Patient: Disposition: Home or Assisted Living Chief Complaint: Lower Extremity Injury Diagnosis: Diabetes mellitus with neuropathy Instructions: What Is Peripheral Neuropathy?, Treating Peripheral Neuropathy Referrals: Timothy Fisher Chi, MD [Primary Care Provider] - 3-5 Days
[2018-02-04] MEDS: oxyCODONE 5 MG Tablet PO (04:55)
[2018-02-04 05:04] VITALS: RESP 16
== END 2018-02-04 05:05 | disposition home or self-care (01) ==
LOC: ED 04:47
PROVIDERS: Emergency Provider Emergency Medicine; Family Provider Family Medicine Geriatric Medicine; PCP Family Medicine Geriatric Medicine
DX: M79.605 Pain in left leg (principal); M79.604 Pain in right leg; G62.9 Polyneuropathy, unspecified; M48.00 Spinal stenosis, site unspecified; E11.9 Type 2 diabetes mellitus without complications; I10 Essential (primary) hypertension; E78.00 Pure hypercholesterolemia, unspecified; Z79.4 Long term (current) use of insulin; Z79.899 Other long term (current) drug therapy
CPT/HCPCS: 99282

== ENCOUNTER 2018-02-10 22:37 | Emergency (ER) | payer MEDICAID, SELFPAY ==
[2018-02-10 22:40] VITALS: BP 167/108; PULSE 110; RESP 19; TEMP 37.6; O2SAT 98; BMI 22.1
--- NOTE | 2018-02-10 23:50 | ED.DEP ---
ED Disposition - Plan for ED Patient: Chief Complaint: Dental Instructions: ED Abscess Dental, ED Tooth Pain, Dental Trauma Prescriptions: Hydrocodone Bitart/Apap 5-325 [[place] 5/325] 1 tab PO Q4H PRN PRN #7 tab PRN Reason: Pain Naproxen [Naprosyn] 500 mg PO BID PRN #20 tab Clindamycin HCl [Cleocin] 300 mg PO Q6H #40 cap Referrals: Timothy Fisher Chi, MD [Primary Care Provider] -
--- NOTE | 2018-02-10 23:53 | DCINST.ED_ITS ---
ED Disposition - Plan for ED Patient: Chief Complaint: Dental Instructions: ED Abscess Dental, ED Tooth Pain, Dental Trauma Prescriptions: Hydrocodone Bitart/Apap 5-325 [[place] 5/325] 1 tab PO Q4H PRN PRN #7 tab PRN Reason: Pain Naproxen [Naprosyn] 500 mg PO BID PRN #20 tab Clindamycin HCl [Cleocin] 300 mg PO Q6H #40 cap Referrals: Timothy Fisher Chi, MD [Primary Care Provider] -
--- NOTE | 2018-02-10 23:55 | ED.VISSUMM ---
- ER Visit Summary Date of Service: 02/10/18 Chief Complaint: [] Dental decay left facial swelling diabetes History of Present Illness: The patient is a 52 M [] reports he has diabetes that stable his blood sugars are been about 200, he indicates what appears to be a left upper incisor broke weeks ago he has an appointment see a dentist in [place] to have this tooth remedied are removed he also has generalized dental decay he indicates to have some mild swelling to the left cheek this morning did not improve and he came in for evaluation he denies fever headache change in vision he is actually been in good health he has chronic low lumbar back pain that is not different or new for him related to spinal stenosis is been thoroughly evaluated for that. His chief complaint is the fact that he has more pain over this cracked tooth and some mild facial swelling but again no change in vision he is eating and drinking well no fevers Physical Examination: [] Which was 99.9 he is in no distress he does have some very mild swelling to the left cheek area he has an obvious decayed to the right to the gumline he has another tooth next with that is in good shape he has generalized other cracked teeth his for the mouth is soft and clear his speech is normal no stridor or drooling his eyes are normal there is no signs of pain around the eyes with full range of ocular muscle movements without discomfort normal vision his neck is very supple lungs are clear heart tones are normal abdomen soft nontender he is awake and alert walking in the emergency department with no distress Test Results: [] Emergency Department Course and Treatment: [] Long conversation with him at this time we started on clindamycin orally Toradol Naprosyn continue those meds at home he assures me has a density seen tomorrow I explained the concept of dental infection orbital infection and sepsis etc. he understands that he feels fine he wants to go home to follow-up with his dentist tomorrow but he will return for change in symptoms he was given oral doses of his meds today due to the late hour instructed to fill the prescriptions tomorrow Treatment Plan: [] Disposition: [] Home stable Impression: [] Decay causing dental infection diabetes This note was generated with [employer] software. It may contain incorrect words, spelling, and punctuation that were not noted in review of the chart prior to signing ED Disposition - Plan for ED Patient: Chief Complaint: Dental Instructions: Dental Trauma, ED Tooth Pain, ED Abscess Dental Prescriptions: Hydrocodone Bitart/Apap 5-325 [[place] 5/325] 1 tab PO Q4H PRN PRN #7 tab PRN Reason: Pain Naproxen [Naprosyn] 500 mg PO BID PRN #20 tab Clindamycin HCl [Cleocin] 300 mg PO Q6H #40 cap Referrals: Timothy Fisher Chi, MD [Primary Care Provider] -
[2018-02-11] MEDS: Clindamycin HCl 150 MG Capsule 300 MG PO (00:04)
[2018-02-11] MEDS: HYDROcodone Bitartrate/Apap 5/325 Tablet PO (00:05)
[2018-02-11] MEDS: Ketorolac 60 MG/2 ML Vial IM (00:05)
[2018-02-11 00:44] VITALS: PULSE 99; RESP 16; O2SAT 96
== END 2018-02-11 00:45 | disposition home or self-care (01) ==
LOC: ED 02-11 00:09
PROVIDERS: Emergency Provider Emergency Medicine; Family Provider Family Medicine Geriatric Medicine; PCP Family Medicine Geriatric Medicine
DX: K02.9 Dental caries, unspecified (principal); K04.7 Periapical abscess without sinus; E11.9 Type 2 diabetes mellitus without complications; Z79.4 Long term (current) use of insulin; Z79.899 Other long term (current) drug therapy; M48.061 Spinal stenosis, lumbar region without neurogenic claudication
CPT/HCPCS: 96372; 97110; 99285

== ENCOUNTER 2018-02-16 06:28 | Emergency (ER) | payer MEDICAID, SELFPAY ==
[2018-02-16 06:29] VITALS: BP 177/112; PULSE 89; RESP 18; TEMP 36.6; O2SAT 96; BMI 21.5
--- NOTE | 2018-02-16 07:09 | ED.VISSUMM ---
- ER Visit Summary Date of Service: 02/16/18 Chief Complaint: Abdominal pain History of Present Illness: The patient is a 52 M who presents with abdominal pain. He is a poor informant. He reports lower abdominal pain for the past 3-4 days. He states this is sharp and burning. He also reports nausea and vomiting tonight. About 6 hours prior to presentation he had 2 episodes of nonbloody nonbilious emesis. He also complains of low back pain radiating down both thighs. He states this is a chronic issue related to his spinal stenosis and not a new symptom. He initially reported that he had a cholecystectomy 3 weeks ago to 4 weeks ago. However on review of records this was on December 16, 9 weeks ago. Physical Examination: Blood pressure 177/112 vitals otherwise unremarkable Moist mucous membranes Heart regular rate and rhythm Lungs are clear Abdomen soft nondistended He does have some lower abdominal tenderness but he has no guarding or rebound Alert Test Results: Laboratory studies urinalysis CT of the abdomen and pelvis are all currently pending. Emergency Department Course and Treatment: Patient was treated with IV fluids Toradol Zofran. At the time of this dictation workup including laboratory studies and CT imaging are pending and the patient was signed out to the oncoming physician. Treatment Plan: [] Disposition: Pending evaluation Impression: Lower abdominal pain This note was generated with [employer] dictation software. It may contain incorrect words, spelling, and punctuation that were not noted in review of the chart prior to signing ED Disposition - Plan for ED Patient: Chief Complaint: Abd Pain Referrals: Timothy Fisher Chi, MD [Primary Care Provider] -
[2018-02-16 07:13] LABS: Absolute Neutrophil Count 2.8 X10^3/uL (2.0-7.7); Basophil# 0.01 X10^3/uL; Basophil% 0.2 % (0-1); Eosinophil# 0.08 X10^3/uL; Eosinophils% 1.5 % (0-5); Hematocrit 36.5 % (40-54); Hemoglobin 13.1 g/dl (13.0-16.5); Lymphocyte % 35.3 % (19-41); Mean Corp Hgb Conc 35.9 g/gl (32-36); Mean Corpuscular Volume 91.9 fL (80-94); Mean Platelet Vol. 9.5 fl (6.2-12.0); Monocyte# 0.56 X10^3/uL; Monocyte% 10.4 % (0-10); Neutrophil # 2.82 X10^3/uL (2.7-7.7); Neutrophil % 52.2 % (47-70); Platelet Count 149 K/mm3 (150-450); RBC Distribution Width CV 12.5 % (11.6-14.6); RBC Distribution Width SD 42.1 fl (35.1-43.9); Red Blood Count 3.97 M/mm3 (4.6-6.2); White Blood Count 5.4 K/mm3 (4.4-11.0)
[2018-02-16] MEDS: 0.9% Normal Saline 1,000 ML 1000 ML IV (07:13)
[2018-02-16 07:15] LABS: POSITIVE COUNT NO; POSITIVE DIFFERENTIAL NO; POSITIVE MORPHOLOGY NO
[2018-02-16] MEDS: Ondansetron 4 MG/2 ML Vial IV (07:15)
[2018-02-16] MEDS: Ketorolac 30 MG/ML Syringe IV (07:19)
[2018-02-16 07:33] LABS: ALB/GLOB Ratio 0.6 RATIO (0.9-2.4); AST(SGOT) 62 U/L (15-37); Alanine Aminotransfer ALT/SGPT 84 U/L (16-61); Albumin, Serum 3.2 g/dL (3.2-5.0); Alkaline Phosphatase 92 U/L (45-117); Anion Gap 8 (5-15); BUN 12 mg/dL (7-18); BUN/Creat Ratio 12.2 RATIO (10-20); Calcium,Total 8.6 mg/dL (8.5-10.1); Chloride 97 mmol/L (98-107); Creatinine, Serum 0.98 mg/dL (0.70-1.30); EST Glomerular Filtration Rate 85 mL/min (>60); Est Glom Filt Rate - Afr Amer 103 mL/min (>60); Estimated Creatinine Clearance 93.34 ml/min; Globulin 5.3 g/dL (2.2-4.2); Glucose 497 mg/dL (74-106); Lipase 91 U/L (73-393); Protein, Total 8.5 g/dL (6.4-8.2); Sodium Level 133 mmol/L (136-145)
[2018-02-16 08:18] LABS: Mucous, Urine 0 SEEN /hpf (<or=2+); Red Blood Cells-Urine 0 SEEN /hpf (0-5); Squamous Epithelial Cells - UA 0 SEEN /hpf (0-5); White Blood Cells 0 SEEN /hpf (0-5)
--- NOTE | 2018-02-16 08:25 | CT_ITS ---
STUDY: CT ABDOMEN AND PELVIS WITH CONTRAST REASON FOR EXAM: Male, 52 years old. Abdomen pain x3-4 days. Recent cholecystectomy. RADIATION DOSAGE (If Supplied By Facility): CTDIvol = ( 12.24 ) mGy, DLP = ( 429.08 ) mGycm TECHNIQUE: Transaxial images were obtained from the dome of the diaphragm to the symphysis pubis without oral contrast. 100 ml of Isovue 300 contrast was administered. Sagittal and coronal images were reconstructed. Individualized dose optimization techniques were used for this CT. COMPARISON: January 01, 2018. FINDINGS: The visualized lung bases are unremarkable. The visualized portions of the heart are within normal limits. Normal liver. Gallbladder is nonvisualized consistent with the provided clinical history. Again seen is a tiny calcification within the gallbladder fossa, most likely of no clinical concern. There is no intrahepatic or extra hepatic biliary ductal dilatation. Normal spleen. Normal pancreas. Normal bilateral adrenal glands. Normal right kidney. Normal left kidney. Normal visualized stomach. Normal small intestine. Normal colon. There are surgical clips in the region of the appendix consistent with a prior appendectomy. Normal abdominal aorta. Normal inferior vena cava. Normal retroperitoneum. Normal urinary bladder. Normal abdominal wall. There is no acute osseous abnormality. There is no suspicious lytic or blastic osseous pathology. CT/Abdomen/Pelvis WITH Contrast IMPRESSION: Status post cholecystostomy. No evident abscess. Intrahepatic and extra hepatic bile ducts appear normal. No acute findings in the abdomen or pelvis. Electronically Signed: Salo Ogden MD at 9:06 EDT , Service support ,
[2018-02-16 08:27] LABS: Color, Urine Yellow (Yellow); Glucose, Dipstick 1000 mg/dl (Normal); Ketone-Dipstick Negative (Negative); Leukocyte Esterase-Dipstick Negative /ul (Negative); Nitrite-Dipstick Negative (Negative); Occult Blood-Urine Negative /ul (Negative); Protein-Dipstick 15 mg/dl (Negative); Urine Bilirubin Dipstick Negative (Negative); Urine Clarity Sl. Cloudy (Clear); Urine Urobilinogen 4 mg/dl (Normal); Urine pH 6.5 (5.0 - 8.0)
[2018-02-16 08:34] LABS: Bacteria RARE /hpf (None Seen)
[2018-02-16 09:20] VITALS: BP 155/98; PULSE 80; RESP 16; O2SAT 100
[2018-02-16 09:25] LABS: Bedside Glucose 272 mg/dL (70-110)
--- NOTE | 2018-02-16 09:49 | ED.VISSUMM ---
- ER Visit Summary Date of Service: 02/16/18 Chief Complaint: [Addendum to initial dictation by Dr. Octaviano Alonso] History of Present Illness: The patient is a 52 M [presented with abdominal pain and was fully evaluated by Dr. Alonso. Patient care turned over to me awaiting CT results of abdomen and pelvis. Patient CT of abdomen pelvis showed no acute disease process. Patient was noted to be post cholecystectomy and appendectomy. Patient received Toradol in the emergency department. Patient tells me he scheduled to see pain management on March 01 as he has a history of chronic back pain issues due to spinal stenosis.] Physical Examination: [Abdomen-patient has some mild diffuse tenderness. There is no rebound, rigidity, or perineal signs. He does not have an acute abdomen.] Test Results: [] Emergency Department Course and Treatment: [] Treatment Plan: Patient will be given a prescription for 12 oxycodone for home. [] Disposition: [Discharged to home in stable condition.] Impression: [Abdominal pain-etiology uncertain] This note was generated with [employer] dictation software. It may contain incorrect words, spelling, and punctuation that were not noted in review of the chart prior to signing ED Disposition - Plan for ED Patient: Chief Complaint: Abd Pain Instructions: ED Abdominal Pain Unkn Cause Prescriptions: Oxycodone HCl/Acetaminophen [Percocet 5/325] 1 tab PO Q6H PRN PRN #12 tab PRN Reason: Pain Referrals: Timothy Fisher Chi, MD [Primary Care Provider] - 3-5 Days
[2018-02-16 09:55] VITALS: BP 142/77; PULSE 68; RESP 17; O2SAT 98
== END 2018-02-16 09:56 | disposition home or self-care (01) ==
PROVIDERS: Emergency Provider Emergency Medicine; Family Provider Family Medicine Geriatric Medicine; PCP Family Medicine Geriatric Medicine
DX: R10.30 Lower abdominal pain, unspecified (principal); M48.061 Spinal stenosis, lumbar region without neurogenic claudication; E11.9 Type 2 diabetes mellitus without complications; I10 Essential (primary) hypertension; E78.00 Pure hypercholesterolemia, unspecified; Z79.4 Long term (current) use of insulin; Z79.891 Long term (current) use of opiate analgesic; Z79.899 Other long term (current) drug therapy
CPT/HCPCS: 74177; 80053; 81001; 82962; 83690; 85025; 96361; 96374; 96375; 99285; J7030; Q9967; A4216; J2405

== ENCOUNTER 2018-03-10 12:30 | Outpatient (RCR) | payer MEDICAID, SELFPAY ==
--- NOTE | 2018-02-01 19:00 | HP.PTEVAL ---
Patient's Visit Information LUCIANA ORO Sr. is a 52 year old M referred to Physical Therapy by Timothy Fisher with a diagnosis of stenosis. Date of Evaluation: 02/01/18 Physical Therapist: Gabriel Beckwith DPT, [place] - Visit Plan Frequency: 2x /Week Duration: 4-6 Weeks Plan: 2x/week for 3-6 weeks for. 1. sTM to lumbar paraspinals. 2. LB AROM emphasize ext and rotation, flexion not to be avoided for stretch. Progress HEP. 3. Postural and core strength and progress to HEP...HS/ITB/hip flexor and quad stretching to HEP. Consider water therapy if land not helpful after three weeks. - Subjective Subjective: LBP for long time over 20 years. Insidious in onset. Seen neurologist and told spine rubbing a disc which is resting on nerves. Didn't recommend surgery at this point. Dr. Fisher recommended pain management as he has foot pain from Diabetic neuropathy. Feet hurt constantly. Back hurts constantly. spends all on couch because getting up hurts. Has to park close to stores. Disability from LB and has been since 2010. Sleeping is not great due to back pain, gets interrupted 8 hours over 24 hours, 4 here and cat nap there. 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 Tries to get out and walk to [facility], takes a long time to walk there and achy. Dresses self and shoes and scoks and basic ADLS al I. Lives with , no steps...lives on one level. Couldn't do steps when he lived down town as it hurt bad.L posterior leg feels tender as does R. L knee has history of reconstruction and it gives out at times. Uses cane some times. Talks much about all he has to go through now to get MRI or pain meds. Has had PT in past and did not hurt or help. - Pain LBP Pain Intensity (Out of 10): 6 Pain Intensity Range: 7, 9 - Objective Patient walk with flexed lumbar spine and thoracic spine but I, very stiff in LB and scap elevated in protection. Trasnfers out of chair(seated with rounded spine) slowly and painfully but I with UE. Transfer to and fro supine I but slow and painful. reflexes in patella and achilles are 0/3. Sensation in LE are grossly WNL to light touch, feet and ankles slightly harder to feel than legs. Strength in R ankle DF 4- and L 4. knee ext 4, knee flexion 4, hip flexion 4, hip abd 4. HS flexibility is poor as is hip flexor and ITB. Hip AROM WFL but flexion with OP gives LBP. Static sitting seems to increase pain with standing , extended sitting decreases pain arising from chair. eil very challenging for patient with tightness in LB and only about 6 inchest chest up from table. - SLR, - slump test. Lumbar paraspinals tender and stiff. - Goals Goal 1:: sit and stand with good posture without pain at rest. Goal Time Frame: 4-6 Weeks Goal 2:: Pain level 0-5/10 and 50% improved. Goal Time Frame: 4-6 Weeks Goal 3:: Patient I in approp ex to maintain any improvements made in PT Goal Time Frame: 4-6 Weeks - Rehabilitation Potential Physical Therapy Diagnosis: LBP stenosis vs disc pathology Rehabilitation Potential: Questionable - Anticipated Interventions Patient/Client Instruction: Educate patient on: Condition, Plan of Care For the Purpose of:: To decrease pain, To decrease swelling/inflammation, To improve gait and locomotor functions Therapeutic Exercise to Include: Strength training, Flexibilty training, Passive ROM, Active ROM, Dynamic Lumbar Stabilization, [place] Exercises For the Purpose of:: To decrease pain, To increase ROM, To improve ability of physical actions for home/community/work/leisure, To improve gait and locomotor functions Manual Therapy Techniques to Include: Mobilization, Soft tissue mobilization For the Purpose of:: To decrease pain, To increase ROM Thank you for the opportunity to evaluate your patient. For Medicare and Medicare HMO plans, please review the plan of care and approve it. It will need to be FAXED BACK to us at [phone] for Medicare purposes. Please let me know if there are questions or concerns regarding this plan of care. Physician Signature: Date:
--- NOTE | 2018-03-10 13:57 | HP.PTREVAL_ITS ---
Timothy Chi Phillip, It has been my pleasure to treat LUCIANA ORO Sr. over the last 3 visits for stenosis. Please see the progress note below for an update on the physical therapy plan of care! Subjective: Was sick and could not make it in due to DM and feet bothering him . Seeing foot doctor. Got new diabetic shoes. will see Dr. Randhawa. Back still bothers pushpa whole lot. Was 9/10 last night. This is stilla daily . stretching occurrence. Riding bike at times at home. Objective/Function: Transfers slowly from chair and avoids complete straighening of spine but transfer improved from last month. Walks I and safely and more comfortably than previous visits. ROM L?S max deficits in ext with central LB pressure, SB min deficits B and flexion is WNL. OVERALL PRESENTING WITH IMPROVEMENT WITH OBJECTIVE MOVEMENT BUT STILL HIGH PAIN COMPLAINTS. SEEMINGLY WILLING TO BE MORE COMPLIANT WITH ATTENDANCE AND CONTINUE POC. Plan Plan: resume previous POC 2x/.week for 3-6 weeks focussing on core adn LE strength, LB ROM and upper leg stretching and progress to I. Consider aquatics if does not tolerate land therapy. Goals Goal 1:: sit and stand with good posture without pain at rest. Goal Time Frame: 4-6 Weeks Goal Progress: improved, still approp. Goal 2:: Pain level 0-5/10 and 50% improved. Goal Time Frame: 4-6 Weeks Goal Progress: still approp. Goal 3:: Patient I in approp ex to maintain any improvements made in PT Goal Time Frame: 4-6 Weeks Goal Progress: still approp. Anticipated Interventions Patient/Client Instruction: Educate patient on: Condition, Plan of Care For the Purpose of:: To decrease pain, To decrease swelling/inflammation, To improve gait and locomotor functions Therapeutic Exercise to Include: Strength training, Flexibilty training, Passive ROM, Active ROM, Dynamic Lumbar Stabilization, [place] Exercises For the Purpose of:: To decrease pain, To increase ROM, To improve ability of physical actions for home/community/work/leisure, To improve gait and locomotor functions Manual Therapy Techniques to Include: Mobilization, Soft tissue mobilization For the Purpose of:: To decrease pain, To increase ROM Please do not hesitate to contact me at [phone] by phone or Fax: if you have questions or concerns regarding this new plan of care! Sincerely, Gabriel Beckwith, DPT, OC
--- NOTE | 2018-06-02 12:10 | HP.PT.NRP ---
HP - Discharge Summary (1) - Patient Information LUCIANA ORO Sr. was seen in my office for initial evaluation on 02/01/18. The following Plan of Care was established for this patient: Initial Frequency: 2x /Week Initial Duration: 4-6 Weeks - Anticipated Interventions Patient/Client Instruction: Educate patient on: Condition, Plan of Care For the Purpose of:: To decrease pain, To decrease swelling/inflammation, To improve gait and locomotor functions Therapeutic Exercise to Include: Strength training, Flexibilty training, Passive ROM, Active ROM, Dynamic Lumbar Stabilization, [place] Exercises For the Purpose of:: To decrease pain, To increase ROM, To improve ability of physical actions for home/community/work/leisure, To improve gait and locomotor functions Manual Therapy Techniques to Include: Mobilization, Soft tissue mobilization For the Purpose of:: To decrease pain, To increase ROM This patient was last seen in our office 03/10/18. Pertinent comments regarding their Physical therapy will appear below: Pt seen for 3 visits but only one real treatment. He has no showed or cancelled the rest of his visits. It has been nearly three months and I will discontinue due to nonattendance. At this point I will be discontinuing this patient from physical therapy. I would be happy to see this patient again in the future if found appropriate by the physician. Thank you! Gabriel Beckwith, DRET, OC
== END 2018-03-10 19:00 | disposition home or self-care (01) ==
LOC: PT 12:30
PROVIDERS: Family Provider Family Medicine Geriatric Medicine; PCP Family Medicine Geriatric Medicine; Visit Provider Family Medicine Geriatric Medicine
DX: M48.061 Spinal stenosis, lumbar region without neurogenic claudication (principal)
CPT/HCPCS: 97110; 97162; 97530

== ENCOUNTER 2018-03-16 01:43 | Emergency (ER) | payer MEDICAID, SELFPAY ==
[2018-03-16 01:47] VITALS: BP 163/102; PULSE 86; RESP 16; TEMP 36.8; O2SAT 98; BMI 21.4
--- NOTE | 2018-03-16 02:11 | CT_ITS ---
STUDY: CT ABDOMEN AND PELVIS WITH CONTRAST REASON FOR EXAM: Male, 52 years old. Weakness and back pain. Elevated blood pressure. History of pancreatitis. RADIATION DOSAGE (If Supplied By Facility): CTDIvol = ( 12.40 ) mGy, DLP = ( 629.95 ) mGycm TECHNIQUE: Transaxial images were obtained from the dome of the diaphragm to the symphysis pubis with oral contrast. 100ML ml of Isovue 300 contrast was administered. Sagittal and coronal images were reconstructed. Individualized dose optimization techniques were used for this CT. COMPARISON: February 16, 2018. FINDINGS: The visualized lung bases are unremarkable. The visualized portions of the heart are within normal limits. Normal liver. There are surgical clips in the gallbladder fossa consistent with a prior cholecystectomy. Normal spleen. Normal pancreas. Normal bilateral adrenal glands. Normal right kidney. Normal left kidney. Normal visualized stomach. Normal small intestine. Normal colon. There are surgical clips in the region of the appendix consistent with a prior appendectomy. Normal abdominal aorta. Normal inferior vena cava. Normal retroperitoneum. No intra-abdominal free air. Normal urinary bladder. Prostate gland is normal. Normal abdominal wall. L5-S1 disc space narrowing and vacuum disc with marginal osteophytes. CT/Abdomen/Pelvis WITH Contrast IMPRESSION: No acute findings in the abdomen or pelvis. No evidence of bowel obstruction. Degenerative changes L5-S1. Electronically Signed: Pardeep Jolly MD at 4:53 EDT , Service support ,
[2018-03-16] MEDS: HYDROmorphone 1 MG/ML Syringe IV ×2 (02:24→03:44)
[2018-03-16] MEDS: Ondansetron 4 MG/2 ML Vial IV (02:24)
[2018-03-16 02:47] LABS: ALB/GLOB Ratio 0.6 RATIO (0.9-2.4); AST(SGOT) 77 U/L (15-37); Alanine Aminotransfer ALT/SGPT 105 U/L (16-61); Alkaline Phosphatase 84 U/L (45-117); Anion Gap 8 (5-15); BUN 8 mg/dL (7-18); BUN/Creat Ratio 9.9 RATIO (10-20); Calcium,Total 8.3 mg/dL (8.5-10.1); Chloride 99 mmol/L (98-107); Creatinine, Serum 0.81 mg/dL (0.70-1.30); EST Glomerular Filtration Rate 107 mL/min (>60); Est Glom Filt Rate - Afr Amer 129 mL/min (>60); Estimated Creatinine Clearance 109.57 ml/min; Globulin 4.7 g/dL (2.2-4.2); Glucose 416 mg/dL (74-106); Lipase 83 U/L (73-393); Potassium 3.7 mmol/L (3.5-5.1); Protein, Total 7.7 g/dL (6.4-8.2); Sodium Level 134 mmol/L (136-145)
[2018-03-16 02:54] LABS: Absolute Lymphocyte Count 1.88 X10^3/ul (0.83-4.51); Basophil# 0.01 X10^3/uL; Basophil% 0.2 % (0-1); Eosinophil# 0.08 X10^3/uL; Eosinophils% 1.8 % (0-5); Hematocrit 34.1 % (40-54); Lymphocyte # 1.88 X10^3/ul (4.0); Lymphocyte % 42.5 % (19-41); Mean Corpuscular Volume 89.5 fL (80-94); Mean Platelet Vol. 10.5 fl (6.2-12.0); Monocyte# 0.43 X10^3/uL; Monocyte% 9.7 % (0-10); Neutrophil # 1.99 X10^3/uL (2.7-7.7); Neutrophil % 45.1 % (47-70); Platelet Count 135 K/mm3 (150-450); RBC Distribution Width CV 12.7 % (11.6-14.6); RBC Distribution Width SD 40.9 fl (35.1-43.9); Red Blood Count 3.81 M/mm3 (4.6-6.2); White Blood Count 4.4 K/mm3 (4.4-11.0)
[2018-03-16 02:55] LABS: Hemoglobin 12.2 g/dl (13.0-16.5)
[2018-03-16 03:00] LABS: Mean Corp Hgb Conc 36.5 g/gl (32-36); Mean Corpuscular Hgb 32.6 pg (27.0-32.0); POSITIVE COUNT NO; POSITIVE DIFFERENTIAL NO; POSITIVE MORPHOLOGY NO
--- NOTE | 2018-03-16 03:06 | ED.DCSUM_ITS ---
- ER Visit Summary Date of Service: 03/16/18 Chief Complaint: Abdominal pain History of Present Illness: The patient is a 52 M presenting with abdominal pain. He states this has been ongoing for the past 3 days. He has nausea and vomiting. He denies diarrhea or constipation. Denies urinary complaints. Denies fever. Denies chest pain or shortness of breath. He also complains of diffuse lower back pain. He states that he has a history of chronic back pain and has an upcoming first appointment with pain management. He states this frequently flares up. He denies bowel or bladder incontinence. No numbness or weakness. He is able to ambulate. Physical Examination: Vitals are stable. Patient is afebrile. Alert no acute distress. HEENT exam is unremarkable. Neck is supple. Lungs are clear and equal bilaterally. Heart is regular rate and rhythm. Abdomen is soft diffuse tenderness with no rebound or guarding Back: diffuse paraspinal lumbar tenderness, no midline tenderness Extremities are unremarkable. Skin is warm and dry. No focal neurologic deficit. Normal strength and sensation Remainder of exam is unremarkable. Emergency Department Course and Treatment: Patient is given Dilaudid, Zofran IV with improvement. CBC normal except for hemoglobin 12.2, platelets 135. Chemistry normal except for sodium 134, glucose 416. Liver enzymes show ALT 105 , AST 77, lipase 83. He was given insulin subcutaneously. Repeat BGT 244. CT abdomen pelvis shows no acute process. Patient is resting comfortably in the emergency department. He is advised to follow-up with his primary care physician and pain management. Advised return ED if worsening complaints. Disposition: Discharge home Impression: Abdominal pain, chronic back pain This note was generated with [employer] dictation software. It may contain incorrect words, spelling, and punctuation that were not noted in review of the chart prior to signing ED Disposition - Plan for ED Patient: Chief Complaint: General Illness Instructions: ED Abdominal Pain Unkn Cause Male Prescriptions: Oxycodone HCl/Acetaminophen [Percocet 5/325] 1 tablet PO Q6H PRN PRN 1 Days #4 tablet PRN Reason: Pain Referrals: Timothy Fisher Chi, MD [Primary Care Provider] -
[2018-03-16 03:33] LABS: Bacteria 0 SEEN /hpf (None Seen); Mucous, Urine 0 SEEN /hpf (<or=2+); Red Blood Cells-Urine 0 SEEN /hpf (0-5); Squamous Epithelial Cells - UA 0 SEEN /hpf (0-5); White Blood Cells 0 SEEN /hpf (0-5)
[2018-03-16 03:39] LABS: Color, Urine Yellow (Yellow); Glucose, Dipstick 1000 mg/dl (Normal); Ketone-Dipstick Negative (Negative); Leukocyte Esterase-Dipstick Negative /ul (Negative); Nitrite-Dipstick Negative (Negative); Occult Blood-Urine Negative /ul (Negative); Protein-Dipstick 30 mg/dl (Negative); Urine Bilirubin Dipstick Negative (Negative); Urine Clarity Clear (Clear); Urine Urobilinogen 1 mg/dl (Normal)
--- NOTE | 2018-03-16 04:55 | ED.DEP ---
ED Disposition - Plan for ED Patient: Chief Complaint: General Illness Instructions: ED Abdominal Pain Unkn Cause Male Prescriptions: Oxycodone HCl/Acetaminophen [Percocet 5/325] 1 tablet PO Q6H PRN PRN 1 Days #4 tablet PRN Reason: Pain Referrals: Timothy Fisher Chi, MD [Primary Care Provider] -
[2018-03-16 04:59] VITALS: BP 157/99; PULSE 67; RESP 16; O2SAT 97
[2018-03-16 05:01] LABS: Bedside Glucose 244 mg/dL (70-110)
[2018-03-16 05:08] VITALS: BP 107/67; PULSE 85; RESP 18; O2SAT 96
== END 2018-03-16 05:16 | disposition home or self-care (01) ==
PROVIDERS: Emergency Provider Emergency Medicine; Family Provider Family Medicine Geriatric Medicine; PCP Family Medicine Geriatric Medicine
DX: R10.84 Generalized abdominal pain (principal); M54.5 Low back pain; G89.29 Other chronic pain; E11.9 Type 2 diabetes mellitus without complications; I10 Essential (primary) hypertension; E78.00 Pure hypercholesterolemia, unspecified; M48.00 Spinal stenosis, site unspecified; Z79.4 Long term (current) use of insulin; Z79.899 Other long term (current) drug therapy
CPT/HCPCS: 74177; 80053; 81001; 82962; 83690; 85025; 96361; 96374; 96375; 96376; 99285; J7040; Q9967; A4216; J2405

== ENCOUNTER 2018-04-02 13:16 | Emergency (ER) | payer MEDICAID, SELFPAY ==
--- NOTE | 2018-04-02 13:16 | DT_ITS ---
This patient was seen during an EMR downtime March 28, 2018 - April 04, 2018. This patient may have a combination of paper and electronic documentation or all paper documentation. All documentation is viewable within the e-chart portion of [employer] for each patient visit.
== END 2018-04-02 14:00 | disposition home or self-care (01) ==
LOC: ED 04-03 13:35
PROVIDERS: Emergency Provider Emergency Medicine; Family Provider Family Medicine Geriatric Medicine; PCP Family Medicine Geriatric Medicine
DX: M54.9 Dorsalgia, unspecified (principal); G89.29 Other chronic pain
CPT/HCPCS: 96372; 99283

== ENCOUNTER 2018-04-06 03:55 | Emergency (ER) | payer MEDICAID, SELFPAY ==
[2018-04-06 03:57] VITALS: BP 169/113; PULSE 95; RESP 18; TEMP 36.6; O2SAT 100; BMI 19.8
--- NOTE | 2018-04-06 04:12 | CT_ITS ---
STUDY: CT ABDOMEN AND PELVIS WITHOUT CONTRAST REASON FOR EXAM: Male, 52 years old. Abdominal pain and radiation to back for a few days.. Nausea. RADIATION DOSAGE (If Supplied By Facility): CTDIvol = ( 6.22 ) mGy, DLP = ( 338.66 ) mGycm TECHNIQUE: Transaxial images were obtained from the dome of the diaphragm to the symphysis pubis without oral contrast, and without intravenous contrast. Sagittal and coronal images were reconstructed. Individualized dose optimization techniques were used for this CT. COMPARISON: March 16, 2018. FINDINGS: The visualized lung bases are unremarkable. The visualized portions of the heart are within normal limits. Normal liver. There are surgical clips in the gallbladder fossa consistent with a prior cholecystectomy. Normal spleen. Normal pancreas. Normal bilateral adrenal glands. Normal right kidney. Normal left kidney. Evaluation of solid organs is limited without intravenous contrast. Normal visualized stomach. Normal small intestine. Normal colon. Evaluation of the bowel is limited without oral contrast. There are surgical clips in the region of the appendix consistent with a prior appendectomy. Normal abdominal aorta. Normal inferior vena cava. Normal retroperitoneum. No intra-abdominal free air. Normal urinary bladder. Prostate gland is not enlarged. Normal abdominal wall. L5-S1 disc space narrowing with vacuum disc, endplate sclerosis and marginal osteophytes. CT/Abdomen/Pelvis without Cont IMPRESSION: Stable CT of the abdomen and pelvis. No acute findings. Status post cholecystectomy and appendectomy. No evidence of bowel obstruction. Degenerative changes L5-S1 noted previously. Electronically Signed: Pardeep Jolly MD at 5:20 EDT , Service support ,
[2018-04-06] MEDS: Ondansetron 4 MG/2 ML Vial IV (04:19)
[2018-04-06] MEDS: 0.9% Normal Saline 1,000 ML 1000 ML IV (04:19)
[2018-04-06] MEDS: Ketorolac 15 MG/ML Vial IV (04:19)
[2018-04-06 04:41] LABS: Anion Gap 10 (5-15); BUN 9 mg/dL (7-18); BUN/Creat Ratio 10.1 RATIO (10-20); Calcium,Total 8.9 mg/dL (8.5-10.1); Chloride 100 mmol/L (98-107); Creatinine, Serum 0.89 mg/dL (0.70-1.30); EST Glomerular Filtration Rate 95 mL/min (>60); Est Glom Filt Rate - Afr Amer 116 mL/min (>60); Glucose 318 mg/dL (74-106); Potassium 3.7 mmol/L (3.5-5.1); Sodium Level 138 mmol/L (136-145)
[2018-04-06 04:49] LABS: Absolute Lymphocyte Count 2.58 X10^3/ul (0.83-4.51); Basophil# 0.03 X10^3/uL; Basophil% 0.5 % (0-1); Eosinophils% 1.6 % (0-5); Lymphocyte # 2.58 X10^3/ul (4.0); Lymphocyte % 40.4 % (19-41); Mean Corpuscular Volume 90.3 fL (80-94); Mean Platelet Vol. 11.1 fl (6.2-12.0); Monocyte# 0.69 X10^3/uL; Monocyte% 10.8 % (0-10); Neutrophil # 2.96 X10^3/uL (2.7-7.7); Neutrophil % 46.4 % (47-70); Platelet Count 156 K/mm3 (150-450); RBC Distribution Width CV 11.9 % (11.6-14.6); RBC Distribution Width SD 38.7 fl (35.1-43.9); Red Blood Count 4.21 M/mm3 (4.6-6.2); White Blood Count 6.4 K/mm3 (4.4-11.0)
[2018-04-06 04:51] LABS: Hemoglobin 13.8 g/dl (13.0-16.5); Mean Corp Hgb Conc 36.3 g/gl (32-36); Mean Corpuscular Hgb 32.8 pg (27.0-32.0); POSITIVE COUNT NO; POSITIVE DIFFERENTIAL NO; POSITIVE MORPHOLOGY NO
[2018-04-06] MEDS: HYDROcodone Bitartrate/Apap 5/325 Tablet PO (04:52)
--- NOTE | 2018-04-06 04:58 | ED.DCSUM_ITS ---
- ER Visit Summary Date of Service: 04/06/18 Chief Complaint: Abdominal pain and back pain History of Present Illness: The patient is a 52 M presenting for evaluation secondary to abdominal pain back pain. Patient has a history of chronic back pain, and also has a history of recent cholecystectomy. Patient reports that he has had continuous abdominal pain and back pain for quite some time, but it has gotten worse in the last 2-3 days. Patient reports that his abdominal pain is across his lower abdomen is continuous aching and worse with palpation. He denies any radiation. He states it has been associated with some nausea vomiting and diarrhea recently. Patient states that over the course last 2 days he has had 3 episodes per day of loose watery diarrhea, and a couple episodes of nonbloody nonbilious emesis. Denies any urinary symptoms or fevers. Patient's back pain is diffuse, does not radiate down his legs, he denies any bowel or bladder incontinence. Review of systems otherwise negative. Physical Examination: Vital signs within normal limits. Well-nourished male no acute distress. Moist mucous membranes. No JVD. Heart regular rate and rhythm no murmurs, lungs sounds clear to auscultation bilaterally. Abdomen soft nondistended normal bowel sounds no masses. There was diffuse tenderness to palpation without any sort of localization guarding or rebound. There are well-healing surgical scars noted over the abdomen. Back shows diffuse tenderness to palpation and postsurgical changes. 2+ radial and 2+ DP and PT pulses that were bilaterally symmetric. No lateralizing neurological deficits. Test Results: CBC chemistry and urinalysis found to be unremarkable. CT abdomen and pelvis shows no acute intra-abdominal process Emergency Department Course and Treatment: Patient presented for evaluation secondary to abdominal pain and back pain. Patient does have a history of a somewhat recent cholecystectomy, so workup was obtained. CT abdomen and pelvis found to be negative, lab work found to be negative. Patient was administered Toradol [place] and Zofran. Repeat evaluation demonstrates benign abdomen, patient is moving around easily and does not exhibit evidence of peritonitis at this time. I believe the patient can safely be discharged with outpatient follow-up with primary care. All questions were answered and the patient was discharged in stable condition. Disposition: Discharge Impression: 1. Acute on chronic abdominal pain This note was generated with [employer] dictation software. It may contain incorrect words, spelling, and punctuation that were not noted in review of the chart prior to signing ED Disposition - Plan for ED Patient: Disposition: Home or Assisted Living Chief Complaint: Abd Pain Diagnosis: Chronic abdominal pain Instructions: ED Abdominal Pain Unkn Cause Prescriptions: proMETHazine tablet [Phenergan] 25 mg PO Q6H PRN PRN #10 tab PRN Reason: Nausea Referrals: Timothy Fisher Chi, MD [Primary Care Provider] - 1 Week if not improving
[2018-04-06 05:22] LABS: Mucous, Urine 0 SEEN /hpf (<or=2+); White Blood Cells 0 SEEN /hpf (0-5)
--- NOTE | 2018-04-06 05:23 | ED.RN ---
pt requested to talk with dr. araujo. asked pt if there was anything i could relay to the dr. pt stated he would talk with him when he came in.
[2018-04-06 05:30] LABS: Color, Urine Yellow (Yellow)
[2018-04-06 05:31] LABS: Glucose, Dipstick 1000 mg/dl (Normal); Ketone-Dipstick Negative (Negative); Leukocyte Esterase-Dipstick Negative /ul (Negative); Nitrite-Dipstick Negative (Negative); Occult Blood-Urine 10 /ul (Negative); Protein-Dipstick 100 mg/dl (Negative); Urine Bilirubin Dipstick Negative (Negative); Urine Clarity Sl Cloudy (Clear); Urine Urobilinogen 1 mg/dl (Normal); Urine pH 6.5 (5.0 - 8.0)
[2018-04-06 05:33] LABS: Bacteria RARE /hpf (None Seen); Red Blood Cells-Urine 0-5 SEEN /hpf (0-5); Squamous Epithelial Cells - UA 0-5 SEEN /hpf (0-5)
[2018-04-06] MEDS: Dicyclomine 20 MG/2 ML Vial IM (06:02)
[2018-04-06 06:27] VITALS: BP 144/91; PULSE 58; RESP 17; O2SAT 98
--- NOTE | 2018-04-06 06:27 | ED.RN ---
IV DC'ED, CATHETER INTACT, SMALL GAUZE DRESSING PLACED. DISCHARGE INSTRUCTIONS GIVEN TO AND REVIEWED WITH PATIENT, PATIENT DENIES QUESTIONS OR CONCERNS AND VOICES UNDERSTANDING OF DISCHARGE INSTRUCTIONS. PT AMBULATES OUT OF ROOM WITHOUT DIFFICULTY.
== END 2018-04-06 06:28 | disposition home or self-care (01) ==
PROVIDERS: Emergency Provider Emergency Medicine; Family Provider Family Medicine Geriatric Medicine; PCP Family Medicine Geriatric Medicine
DX: R10.84 Generalized abdominal pain (principal); G89.29 Other chronic pain; E11.9 Type 2 diabetes mellitus without complications; G62.9 Polyneuropathy, unspecified; Z79.4 Long term (current) use of insulin; Z79.891 Long term (current) use of opiate analgesic; Z79.899 Other long term (current) drug therapy
CPT/HCPCS: 74176; 80048; 81001; 85025; 96361; 96372; 96374; 96375; 99283; J7030; A4216; J2405

== ENCOUNTER → 2018-04-20 09:07 | Outpatient (CLI) | payer MEDICAID, SELFPAY ==
[2018-04-20 13:15] LABS: Absolute Lymphocyte Count 1.75 X10^3/ul (0.83-4.51); Absolute Neutrophil Count 2.4 X10^3/uL (2.0-7.7); Basophil# 0.02 X10^3/uL; Basophil% 0.4 % (0-1); Hematocrit 37.9 % (40-54); Hemoglobin 13.7 g/dl (13.0-16.5); Lymphocyte # 1.75 X10^3/ul (4.0); Lymphocyte % 34.6 % (19-41); Mean Corp Hgb Conc 36.1 g/gl (32-36); Mean Corpuscular Hgb 32.6 pg (27.0-32.0); Mean Corpuscular Volume 90.2 fL (80-94); Mean Platelet Vol. 11.9 fl (6.2-12.0); Monocyte# 0.73 X10^3/uL; Monocyte% 14.4 % (0-10); Neutrophil # 2.43 X10^3/uL (2.7-7.7); Platelet Count 126 K/mm3 (150-450); RBC Distribution Width CV 12.7 % (11.6-14.6); RBC Distribution Width SD 41.6 fl (35.1-43.9); White Blood Count 5.1 K/mm3 (4.4-11.0)
[2018-04-20 13:17] LABS: POSITIVE COUNT NO; POSITIVE DIFFERENTIAL NO; POSITIVE MORPHOLOGY NO
[2018-04-20 13:37] LABS: ALB/GLOB Ratio 0.6 RATIO (0.9-2.4); AST(SGOT) 62 U/L (15-37); Alanine Aminotransfer ALT/SGPT 95 U/L (16-61); Albumin, Serum 3.3 g/dL (3.2-5.0); Alkaline Phosphatase 88 U/L (45-117); Anion Gap 8 (5-15); BUN 8 mg/dL (7-18); Calcium,Total 8.6 mg/dL (8.5-10.1); Chloride 101 mmol/L (98-107); EST Glomerular Filtration Rate 107 mL/min (>60); Est Glom Filt Rate - Afr Amer 130 mL/min (>60); Globulin 5.1 g/dL (2.2-4.2); Glucose 397 mg/dL (74-106); PSA,Total - Annual Screen 0.11 ng/mL (0.00-4.00); Potassium 4.5 mmol/L (3.5-5.1); Protein, Total 8.4 g/dL (6.4-8.2); Sodium Level 138 mmol/L (136-145)
== END ==
PROVIDERS: Family Provider Family Medicine Geriatric Medicine; PCP Family Medicine Geriatric Medicine; Visit Provider Family Medicine Geriatric Medicine
DX: E11.9 Type 2 diabetes mellitus without complications (principal); I10 Essential (primary) hypertension; Z12.5 Encounter for screening for malignant neoplasm of prostate
CPT/HCPCS: 36415; 80053; 84153; 84443; 85025; G0103

== ENCOUNTER 2018-05-11 21:30 | Emergency (ER) | payer MEDICAID, SELFPAY ==
[2018-05-11 21:31] VITALS: BP 108/71; PULSE 99; RESP 16; TEMP 37.4; O2SAT 99; BMI 21.7
[2018-05-11 22:53] LABS: Anion Gap 6 (5-15); BUN 6 mg/dL (7-18); BUN/Creat Ratio 7.5 RATIO (10-20); Calcium,Total 9.2 mg/dL (8.5-10.1); Chloride 101 mmol/L (98-107); EST Glomerular Filtration Rate 107 mL/min (>60); Est Glom Filt Rate - Afr Amer 130 mL/min (>60); Estimated Creatinine Clearance 114.34 ml/min; Glucose 324 mg/dL (74-106); Potassium 3.8 mmol/L (3.5-5.1); Sodium Level 137 mmol/L (136-145)
[2018-05-11 22:56] LABS: Absolute Lymphocyte Count 2.77 X10^3/ul (0.83-4.51); Absolute Neutrophil Count 3.1 X10^3/uL (2.0-7.7); Basophil# 0.02 X10^3/uL; Basophil% 0.3 % (0-1); Eosinophil# 0.13 X10^3/uL; Eosinophils% 1.9 % (0-5); Hematocrit 37.7 % (40-54); Lymphocyte # 2.77 X10^3/ul (4.0); Lymphocyte % 41.3 % (19-41); Mean Corpuscular Volume 90.2 fL (80-94); Mean Platelet Vol. 9.9 fl (6.2-12.0); Monocyte# 0.62 X10^3/uL; Monocyte% 9.2 % (0-10); Neutrophil # 3.14 X10^3/uL (2.7-7.7); Neutrophil % 46.9 % (47-70); Platelet Count 163 K/mm3 (150-450); RBC Distribution Width CV 12.6 % (11.6-14.6); Red Blood Count 4.18 M/mm3 (4.6-6.2); White Blood Count 6.7 K/mm3 (4.4-11.0)
[2018-05-11 22:59] LABS: Mean Corp Hgb Conc 34.5 g/gl (32-36); Mean Corpuscular Hgb 31.1 pg (27.0-32.0); POSITIVE COUNT NO; POSITIVE DIFFERENTIAL NO; POSITIVE MORPHOLOGY NO
--- NOTE | 2018-05-11 23:08 | ED.VISSUMM ---
- ER Visit Summary Date of Service: 05/11/18 Chief Complaint: Abdominal pain History of Present Illness: The patient is a 53 M who presents with abdominal pain. He states that he has been having abdominal pain and having stomach issues ever since he had his gallbladder out. This was in November. However he states his pain has been worse for the past week. He complains of sharp and burning epigastric abdominal pain. He developed nausea and vomiting today. He also complains of 2-3 days of diarrhea. No fevers chest pain shortness of breath. Review of systems otherwise negative. He has tried no medications or treatment at home. Physical Examination: Afebrile vitals are stable Moist mucous membranes Heart regular rate and rhythm Lungs are clear Abdomen soft nondistended with mid abdominal tenderness no guarding no rebound Test Results: CBC CMP lipase urinalysis notable only for 324 glucose. Emergency Department Course and Treatment: Patient has a history of chronic abdominal pain. He has normal vital signs, he does not appear to have a surgical abdomen, laboratory studies are normal. The patient repeatedly requested IV opiates which I do not believe are indicated. He was treated with Phenergan and a GI cocktail. He was then given IV Toradol. On reevaluation he is sleeping comfortably in bed. I do not see an indication for hospitalization. I did advise that he follow-up as an outpatient and reschedule his endoscopy. He understands to return for new or worsening symptoms. He was discharged. Treatment Plan: [] Disposition: Discharge Impression: Acute on chronic abdominal pain This note was generated with [employer] dictation software. It may contain incorrect words, spelling, and punctuation that were not noted in review of the chart prior to signing ED Disposition - Plan for ED Patient: Chief Complaint: Abd Pain Referrals: Timothy Fisher Chi, MD [Primary Care Provider] -
[2018-05-11] MEDS: 0.9% Normal Saline 1,000 ML 1000 ML IV (23:23)
[2018-05-11] MEDS: proMETHazine 25 MG/ML Syringe 12.5 MG IV (23:25)
[2018-05-11 23:59] LABS: ALB/GLOB Ratio 0.6 RATIO (0.9-2.4); AST(SGOT) 53 U/L (15-37); Alanine Aminotransfer ALT/SGPT 83 U/L (16-61); Alkaline Phosphatase 78 U/L (45-117); Anion Gap 6 (5-15); BUN 7 mg/dL (7-18); BUN/Creat Ratio 9.5 RATIO (10-20); Calcium,Total 8.5 mg/dL (8.5-10.1); Chloride 101 mmol/L (98-107); Creatinine, Serum 0.74 mg/dL (0.70-1.30); EST Glomerular Filtration Rate 119 mL/min (>60); Est Glom Filt Rate - Afr Amer 144 mL/min (>60); Estimated Creatinine Clearance 123.61 ml/min; Globulin 4.9 g/dL (2.2-4.2); Glucose 318 mg/dL (74-106); Lipase 280 U/L (73-393); Potassium 3.4 mmol/L (3.5-5.1); Protein, Total 7.9 g/dL (6.4-8.2); Sodium Level 135 mmol/L (136-145)
[2018-05-12 00:02] VITALS: BP 119/68; PULSE 94; RESP 18; O2SAT 100
[2018-05-12 00:27] LABS: AST(SGOT) 57 U/L (15-37); Alanine Aminotransfer ALT/SGPT 91 U/L (16-61); Albumin, Serum 3.4 g/dL (3.2-5.0); Alkaline Phosphatase 83 U/L (45-117); Bilirubin, Direct 0.19 mg/dL (0.00-0.30); Globulin 5.1 g/dL (2.2-4.2); Protein, Total 8.5 g/dL (6.4-8.2)
[2018-05-12] MEDS: Ketorolac 30 MG/ML Syringe IV (01:12)
[2018-05-12 01:20] LABS: Red Blood Cells-Urine 0 SEEN /hpf (0-5); White Blood Cells 0 SEEN /hpf (0-5)
[2018-05-12 01:21] LABS: Color, Urine Yellow (Yellow); Glucose, Dipstick 1000 mg/dl (Normal); Ketone-Dipstick Negative (Negative); Leukocyte Esterase-Dipstick Negative /ul (Negative); Nitrite-Dipstick Negative (Negative); Occult Blood-Urine Negative /ul (Negative); Protein-Dipstick 100 mg/dl (Negative); Specific Gravity, Urine 1.015 (1.002-1.030); Urine Bilirubin Dipstick Negative (Negative); Urine Clarity Clear (Clear); Urine Urobilinogen Normal (Normal)
[2018-05-12 01:39] LABS: Bacteria RARE /hpf (None Seen); Mucous, Urine 1+ /hpf (<or=2+); Squamous Epithelial Cells - UA 0-5 SEEN /hpf (0-5)
--- NOTE | 2018-05-12 01:45 | ED.DEP ---
ED Disposition - Plan for ED Patient: Chief Complaint: Abd Pain Instructions: ED Abdominal Pain Unkn Cause Male Referrals: Timothy Fisher Chi, MD [Primary Care Provider] -
[2018-05-12 01:57] VITALS: BP 118/78; PULSE 78; RESP 16; O2SAT 97
== END 2018-05-12 02:00 | disposition home or self-care (01) ==
LOC: ED 23:32
PROVIDERS: Emergency Provider Emergency Medicine; Family Provider Family Medicine Geriatric Medicine; PCP Family Medicine Geriatric Medicine
DX: R10.13 Epigastric pain (principal); G89.29 Other chronic pain; E11.9 Type 2 diabetes mellitus without complications; I10 Essential (primary) hypertension; E78.00 Pure hypercholesterolemia, unspecified; Z79.4 Long term (current) use of insulin; Z79.899 Other long term (current) drug therapy
CPT/HCPCS: 80048; 80053; 80076; 81001; 83690; 85025; 96361; 96374; 96375; 99284; J7030; A4216

== ENCOUNTER 2018-05-18 01:05 | Emergency (ER) | payer MEDICAID, SELFPAY ==
[2018-05-18 01:05] VITALS: BP 122/84; PULSE 107; RESP 18; TEMP 36.3; O2SAT 99; BMI 19.1
--- NOTE | 2018-05-18 01:20 | ED.VISSUMM ---
- ER Visit Summary Date of Service: 05/18/18 Chief Complaint: Abdominal pain History of Present Illness: The patient is a 53 M presents to the emergency department abdominal pain. Patient states his been having this pain intermittently for the past few months. He states I have been here a bunch and we can't figure it out. He describes intermittent cramping pain across his entire abdomen. He has been nauseated without vomiting. He has had some loose watery diarrhea. He denies any fevers or chills. He states they usually give me perks for it. He has had no chest pain or shortness of breath. He cannot find anything makes his pain better or worse. He denies any history of alcohol abuse or pancreatitis. Physical Examination: Vital signs reviewed General: Well-nourished, well-developed Head: Normocephalic, atraumatic Eyes: Pupils equal and reactive, extraocular muscles intact Neck, supple, no lymphadenopathy Heart: Regular rate and rhythm Respiratory: No distress, clear bilaterally Abdomen: Soft, nontender, nondistended, no peritoneal signs Back: Nontender Extremities: Nontender, no edema, no cords Skin: Normal color no rash Neuro: Alert and oriented, no focal or lateralizing deficits Test Results: [] Emergency Department Course and Treatment: The patient presents with abdominal pain. He has had multiple visits for the same. He did have a normal CAT scan 1 month ago. IV was established. The patient was requesting opiate analgesics. I do not feel that this is appropriate given the chronicity of his symptoms. His labs were unremarkable. There is mild elevation of his LFTs, but this does appear to be chronic. There is no evidence of acute pancreatitis. He has no rebound, guarding, peritoneal signs. The patient was treated with Phenergan, Bentyl, and Toradol. He was resting comfortably on reevaluation. I do not suspect a dangerous process. I do feel this patient can safely be discharged home. Treatment Plan: [] Disposition: Discharge Impression: Exacerbation of chronic abdominal pain This note was generated with [employer] dictation software. It may contain incorrect words, spelling, and punctuation that were not noted in review of the chart prior to signing ED Disposition - Plan for ED Patient: Chief Complaint: Abd Pain Instructions: ED Abdominal Pain Unkn Cause Prescriptions: proMETHazine tablet [Phenergan] 25 mg PO Q6H PRN PRN #10 tab PRN Reason: Nausea Dicyclomine HCl [Bentyl] 20 mg PO TIDAC #20 cap Referrals: Timothy Fisher Chi, MD [Primary Care Provider] -
[2018-05-18 01:30] LABS: Absolute Lymphocyte Count 4.29 X10^3/ul (0.83-4.51); Basophil# 0.04 X10^3/uL; Basophil% 0.4 % (0-1); Eosinophil# 0.16 X10^3/uL; Eosinophils% 1.7 % (0-5); Hematocrit 39.8 % (40-54); Lymphocyte # 4.29 X10^3/ul (4.0); Mean Corpuscular Volume 89.8 fL (80-94); Mean Platelet Vol. 9.8 fl (6.2-12.0); Monocyte% 10.5 % (0-10); Neutrophil # 3.99 X10^3/uL (2.7-7.7); Neutrophil % 41.8 % (47-70); Platelet Count 209 K/mm3 (150-450); RBC Distribution Width SD 38.8 fl (35.1-43.9); Red Blood Count 4.43 M/mm3 (4.6-6.2); White Blood Count 9.5 K/mm3 (4.4-11.0)
[2018-05-18] MEDS: 0.9% Normal Saline 1,000 ML 1000 ML IV (01:30)
[2018-05-18] MEDS: Dicyclomine 20 MG/2 ML Vial IM (01:31)
[2018-05-18] MEDS: proMETHazine 25 MG/ML Syringe 12.5 MG IV (01:31)
[2018-05-18] MEDS: Ketorolac 30 MG/ML Syringe IV (01:31)
[2018-05-18 01:33] VITALS: BP 125/83; PULSE 91; RESP 16; O2SAT 99
[2018-05-18 01:35] LABS: ALB/GLOB Ratio 0.6 RATIO (0.9-2.4); AST(SGOT) 73 U/L (15-37); Alanine Aminotransfer ALT/SGPT 110 U/L (16-61); Albumin, Serum 3.7 g/dL (3.2-5.0); Alkaline Phosphatase 90 U/L (45-117); Anion Gap 7 (5-15); BUN 16 mg/dL (7-18); Calcium,Total 9.4 mg/dL (8.5-10.1); Chloride 100 mmol/L (98-107); Creatinine, Serum 0.84 mg/dL (0.70-1.30); EST Glomerular Filtration Rate 102 mL/min (>60); Est Glom Filt Rate - Afr Amer 123 mL/min (>60); Estimated Creatinine Clearance 95.89 ml/min; Globulin 5.7 g/dL (2.2-4.2); Glucose 82 mg/dL (74-106); Lipase 247 U/L (73-393); Potassium 3.8 mmol/L (3.5-5.1); Protein, Total 9.4 g/dL (6.4-8.2); Sodium Level 138 mmol/L (136-145)
[2018-05-18 01:36] LABS: Hemoglobin 14.6 g/dl (13.0-16.5); Mean Corp Hgb Conc 35.4 g/gl (32-36); Mean Corpuscular Hgb 32.2 pg (27.0-32.0); POSITIVE COUNT NO; POSITIVE DIFFERENTIAL NO; POSITIVE MORPHOLOGY NO
[2018-05-18 02:23] VITALS: BP 111/68; PULSE 87; RESP 16; O2SAT 98
[2018-05-18 02:36] VITALS: BP 101/69; PULSE 91; RESP 16; O2SAT 99
== END 2018-05-18 02:40 | disposition home or self-care (01) ==
LOC: ED 01:41
PROVIDERS: Emergency Provider Emergency Medicine; Family Provider Family Medicine Geriatric Medicine; PCP Family Medicine Geriatric Medicine
DX: R10.9 Unspecified abdominal pain (principal); G89.29 Other chronic pain; E11.9 Type 2 diabetes mellitus without complications; I10 Essential (primary) hypertension; Z72.0 Tobacco use; Z79.4 Long term (current) use of insulin; Z79.899 Other long term (current) drug therapy
CPT/HCPCS: 80053; 83690; 85025; 96361; 96372; 96374; 96375; 99283; J7030; A4216

== ENCOUNTER 2018-05-23 06:36 | Emergency (ER) | payer MEDICAID, SELFPAY ==
[2018-05-23 06:37] VITALS: BP 141/92; PULSE 79; RESP 15; TEMP 36.8; O2SAT 99; BMI 19.8
--- NOTE | 2018-05-23 06:52 | ED.VISSUMM ---
- ER Visit Summary Date of Service: 05/23/18 Chief Complaint: Acute on chronic abdominal pain History of Present Illness: The patient is a 53 M history of insulin-dependent diabetes, hypertension, high cholesterol and chronic abdominal pain. Patient has had both a prior cholecystectomy and appendectomy. He states that he has abdominal pain for the last several months. He has had 3 CAT scans done one in January then in February and March all of which were unremarkable. He states the pain causes him at times have nausea and vomiting. He denies any diarrhea or fever. He denies any hematemesis or melena. He denies any abdominal trauma. He denies any dysuria or constipation. Denies any trouble urinating or hematuria. This is the same pain that he typically has. Nothing specifically makes it better or worse. He has had multiple ER evaluations for this pain. Physical Examination: Middle-aged male vital signs are stable and afebrile. H EENT exam moist mucous membranes otherwise unremarkable. Neck nontender no lymphadenopathy. Lungs clear to auscultation bilaterally. Heart regular rhythm no murmur. Abdomen is soft. Nondistended. Normal bowel sounds. No hernias or masses. No pulsatile mass. No signs of obstruction. He has diffuse abdominal tenderness even to very light touch. No peritoneal signs. He is moving all 4 extremities. They are neurovascularly intact. Back exam is nontender. Neurologically is awake alert with no focal motor deficits. Test Results: [] Emergency Department Course and Treatment: I reviewed the patient's old records. He has had 3 CAT scans recently all of which were unremarkable except for chronic changes. He will be treated with IV fluids, Zofran for his nausea and IV Toradol. Screening labs will be obtained. At this time I do not feel he needs any imaging. He will be turned over to the morning ER physician coming on for final disposition. Unless a specific new finding appears more than likely this patient will be able to be discharged to home. Treatment Plan: [] Disposition: [] Impression: Acute on chronic abdominal pain History of insulin-dependent diabetes This note was generated with [employer] dictation software. It may contain incorrect words, spelling, and punctuation that were not noted in review of the chart prior to signing ED Disposition - Plan for ED Patient: Chief Complaint: Abd Pain Referrals: Timothy Fisher Chi, MD [Primary Care Provider] -
[2018-05-23 07:16] LABS: Absolute Lymphocyte Count 1.96 X10^3/ul (0.83-4.51); Absolute Neutrophil Count 3.7 X10^3/uL (2.0-7.7); Basophil# 0.02 X10^3/uL; Basophil% 0.3 % (0-1); Eosinophil# 0.15 X10^3/uL; Eosinophils% 2.4 % (0-5); Hematocrit 36.9 % (40-54); Hemoglobin 13.3 g/dl (13.0-16.5); Lymphocyte # 1.96 X10^3/ul (4.0); Mean Corpuscular Hgb 32.9 pg (27.0-32.0); Mean Corpuscular Volume 91.3 fL (80-94); Mean Platelet Vol. 10.7 fl (6.2-12.0); Monocyte# 0.47 X10^3/uL; Monocyte% 7.4 % (0-10); Neutrophil # 3.69 X10^3/uL (2.7-7.7); Neutrophil % 58.3 % (47-70); Platelet Count 154 K/mm3 (150-450); RBC Distribution Width CV 12.5 % (11.6-14.6); RBC Distribution Width SD 41.9 fl (35.1-43.9); Red Blood Count 4.04 M/mm3 (4.6-6.2); White Blood Count 6.3 K/mm3 (4.4-11.0)
[2018-05-23 07:22] LABS: POSITIVE COUNT NO; POSITIVE DIFFERENTIAL NO; POSITIVE MORPHOLOGY NO
[2018-05-23 07:23] LABS: AST(SGOT) 73 U/L (15-37); Alanine Aminotransfer ALT/SGPT 102 U/L (16-61); Alkaline Phosphatase 79 U/L (45-117); Anion Gap 3 (5-15); BUN 11 mg/dL (7-18); BUN/Creat Ratio 14.7 RATIO (10-20); Bilirubin, Direct 0.14 mg/dL (0.00-0.30); Calcium,Total 8.9 mg/dL (8.5-10.1); Chloride 100 mmol/L (98-107); Creatinine, Serum 0.75 mg/dL (0.70-1.30); EST Glomerular Filtration Rate 117 mL/min (>60); Est Glom Filt Rate - Afr Amer 141 mL/min (>60); Estimated Creatinine Clearance 110.81 ml/min; Glucose 386 mg/dL (74-106); Lipase 245 U/L (73-393); Potassium 4.3 mmol/L (3.5-5.1); Sodium Level 135 mmol/L (136-145)
--- NOTE | 2018-05-23 07:43 | ED.DEP ---
ED Disposition - Plan for ED Patient: Disposition: Home or Assisted Living Chief Complaint: Abd Pain Instructions: ED Abdominal Pain Unkn Cause Prescriptions: Ondansetron [Zofran Odt] 4 mg PO Q4H PRN PRN #10 tab.rapdis PRN Reason: Nausea Referrals: Timothy Fisher Chi, MD [Primary Care Provider] - As soon as possible Additional Instructions: Plenty of fluids and rest. [place] diet and increase slowly as tolerated. Zofran as needed for nausea. Follow-up with Dr. Fisher your primary care physician for further evaluation. Return to the ER if you are feeling worse, develop a fever, worsening pain or black or bloody stools.
--- NOTE | 2018-05-23 07:46 | ED.RN ---
UNABLE TO OBTAIN IV ACCESS. 1 LINE OBTAINED BUT INFILTRATED. PHYSICIAN IN TO TALK WITH PT . PT UNHAPPY TO BE RECEIVING TORADOL.PT REFUSES TO ALLOW ANOTHER ATTEMPT AT IV. WALKS OUT REFUSING PAPERWORK AND PRESCRIPTION
== END 2018-05-23 07:48 | disposition home or self-care (01) ==
PROVIDERS: Emergency Provider Emergency Medicine; Family Provider Family Medicine Geriatric Medicine; PCP Family Medicine Geriatric Medicine
DX: R10.84 Generalized abdominal pain (principal); G89.29 Other chronic pain; E10.65 Type 1 diabetes mellitus with hyperglycemia; I10 Essential (primary) hypertension; E78.00 Pure hypercholesterolemia, unspecified; Z79.4 Long term (current) use of insulin; Z79.899 Other long term (current) drug therapy
CPT/HCPCS: 80048; 80076; 83690; 85025; 99284; J7030; A4216; J2405

== ENCOUNTER 2018-05-31 08:49 | Observation (INO) | payer MEDICAID, SELFPAY ==
[2018-05-31 08:51] VITALS: BP 136/97; PULSE 108; RESP 99; TEMP 36.7; O2SAT 18; BMI 18.7
[2018-05-31 09:01] LABS: Bedside Glucose > 500 mg/dL (70-110)
--- NOTE | 2018-05-31 09:07 | CT_ITS ---
STUDY: CT ABDOMEN AND PELVIS WITH CONTRAST REASON FOR EXAM: Male, 53 years old. Abdominal pain. RADIATION DOSAGE (If Supplied By Facility): CTDIvol = ( 12.51 ) mGy, DLP = ( 454.80 ) mGycm TECHNIQUE: Transaxial images were obtained from the dome of the diaphragm to the symphysis pubis without oral contrast. 100 ml of Isovue 300 contrast was administered. Sagittal and coronal images were reconstructed. Individualized dose optimization techniques were used for this CT. COMPARISON: 04/06/2018. FINDINGS: The visualized lung bases are unremarkable. The visualized portions of the heart are within normal limits. Normal liver. There is non-visualization of the gallbladder, which may be secondary to either contraction or a prior cholecystectomy. A single tiny high density structure seen in the area of the gallbladder fossa could be a surgical clip or tiny granuloma. Common bile duct is not distended. Normal spleen. Normal pancreas. Normal bilateral adrenal glands. Normal right kidney. Normal left kidney. Evaluation of the GI tract is limited by absence of oral contrast. Cannot exclude stomach wall thickening. No dilated loops of bowel or evidence for obstruction. Cannot exclude segmental thickening of the dumas of the small or large bowel. Cannot exclude enteritis or colitis. Moderate fluid seen throughout the large bowel which can be nonspecific and seen with diarrheal disorders. There has been appendectomy. Normal abdominal aorta. Normal inferior vena cava. Normal retroperitoneum. Normal urinary bladder. Normal abdominal wall. Degenerative disc changes at L4-L5 and especially L5-S1, otherwise negative osseous structures. CT/Abdomen/Pelvis W IV Cont ONLY IMPRESSION: No definite acute abnormality, but fluid throughout the colon can be seen in nonspecific colitis and diarrhea disorders. Electronically Signed: Aditya Villalobos MD at 12:01 EDT , Service support ,
[2018-05-31] MEDS: HYDROmorphone 1 MG/ML Syringe IV ×2 (09:13→13:41)
[2018-05-31] MEDS: 0.9% Normal Saline 1,000 ML 1000 ML IV (09:13)
[2018-05-31] MEDS: Ondansetron 4 MG/2 ML Vial IV (09:13)
--- NOTE | 2018-05-31 09:16 | ED.DCSUM_ITS ---
- ER Visit Summary Date of Service: 05/31/18 Chief Complaint: Abdominal pain History of Present Illness: The patient is a 53 M with abdominal pain for a week or more. It is over his lower abdomen. Severe. Associated with myalgias and arthralgias in his lower legs. Patient has a history of diabetes and hypertension. He had a sugar of 454 for EMS. No fevers. No urinary symptoms. He did have some nausea, vomiting, diarrhea. No skin rash. No trauma. Physical Examination: Vital signs unremarkable except for heart rate of 108. He is alert and oriented. No acute distress. Heart regular. Lungs clear. Abdomen is diffusely tender over the lower hemiabdomen. No guarding or rebound. Back is nontender. Lower extremities show diffuse tenderness with light touch bilaterally. No edema. Pulses strong and equal. Skin appears unremarkable. No warmth. Test Results: Will check labs including CBC, CMP, lipase, urinalysis, ketones. We will also check CT abdomen. Emergency Department Course and Treatment: Patient was treated with fluids, Zofran, and Dilaudid while awaiting results. Patient's lab work showed hyperglycemia. His anion gap is normal. CO2 is 29. There is nothing to suggest DKA. Liver enzymes slightly elevated. He has a history of this. Lipase normal. Urinalysis shows glucose. Ketones negative. CT shows colonic fluid consistent with colitis versus diarrhea. This is consistent with his history. Patient received additional fluids as well as insulin. His sugar was over 500. I believe he will need inpatient care to get his symptoms and glucose under control. I spoke with hospitalist will admit. Treatment Plan: As above Disposition: Admission Impression: 1. Gastroenteritis 2. Hyperglycemia This note was generated with [employer] dictation software. It may contain incorrect words, spelling, and punctuation that were not noted in review of the chart prior to signing ED Disposition - Plan for ED Patient: Chief Complaint: Abd Pain
[2018-05-31 09:21] LABS: Absolute Lymphocyte Count 1.61 X10^3/ul (0.83-4.51); Absolute Neutrophil Count 4.3 X10^3/uL (2.0-7.7); Basophil# 0.02 X10^3/uL; Basophil% 0.3 % (0-1); Eosinophils% 1.5 % (0-5); Hematocrit 38.7 % (40-54); Lymphocyte # 1.61 X10^3/ul (4.0); Lymphocyte % 24.1 % (19-41); Mean Platelet Vol. 10.5 fl (6.2-12.0); Neutrophil # 4.31 X10^3/uL (2.7-7.7); Neutrophil % 64.4 % (47-70); Platelet Count 161 K/mm3 (150-450); White Blood Count 6.7 K/mm3 (4.4-11.0)
[2018-05-31 09:24] LABS: Hemoglobin 14.2 g/dl (13.0-16.5); Mean Corp Hgb Conc 36.7 g/gl (32-36); POSITIVE COUNT NO; POSITIVE DIFFERENTIAL NO; POSITIVE MORPHOLOGY NO
[2018-05-31 09:55] LABS: Albumin, Serum 3.3 g/dL (3.2-5.0); BUN 14 mg/dL (7-18); BUN/Creat Ratio 13.2 RATIO (10-20); Creatinine, Serum 1.06 mg/dL (0.70-1.30); EST Glomerular Filtration Rate 78 mL/min (>60); Est Glom Filt Rate - Afr Amer 94 mL/min (>60); Estimated Creatinine Clearance 76.33 ml/min; Glucose 647 mg/dL (74-106); Protein, Total 8.7 g/dL (6.4-8.2)
[2018-05-31 09:56] LABS: ALB/GLOB Ratio 0.6 RATIO (0.9-2.4); AST(SGOT) 74 U/L (15-37); Alanine Aminotransfer ALT/SGPT 126 U/L (16-61); Alkaline Phosphatase 96 U/L (45-117); Anion Gap 6 (5-15); Calcium,Total 8.8 mg/dL (8.5-10.1); Chloride 98 mmol/L (98-107); Globulin 5.4 g/dL (2.2-4.2); Lipase 316 U/L (73-393); Potassium 3.9 mmol/L (3.5-5.1); Sodium Level 133 mmol/L (136-145)
[2018-05-31] MEDS: 0.9% Normal Saline 1,000 ML 999 ML IV (10:20)
[2018-05-31 10:51] LABS: Bacteria 0 SEEN /hpf (None Seen); Mucous, Urine 0 SEEN /hpf (<or=2+); Red Blood Cells-Urine 0 SEEN /hpf (0-5); Squamous Epithelial Cells - UA 0 SEEN /hpf (0-5); White Blood Cells 0 SEEN /hpf (0-5)
[2018-05-31 10:53] LABS: Color, Urine Yellow (Yellow); Glucose, Dipstick 1000 mg/dl (Normal); Ketone-Dipstick Negative (Negative); Leukocyte Esterase-Dipstick Negative /ul (Negative); Nitrite-Dipstick Negative (Negative); Occult Blood-Urine Negative /ul (Negative); Protein-Dipstick 30 mg/dl (Negative); Urine Bilirubin Dipstick Negative (Negative); Urine Clarity Clear (Clear); Urine Urobilinogen Normal (Normal)
[2018-05-31] MEDS: Insulin Lispro 100 UNIT/ML INSULN.PEN 10 UNIT SC ×2 (11:21→18:27)
[2018-05-31 11:23] VITALS: BP 135/88; PULSE 79; RESP 13; O2SAT 99
[2018-05-31 12:15] LABS: Bedside Glucose > 500 mg/dL (70-110)
[2018-05-31 13:17] VITALS: BP 134/91; PULSE 87; RESP 16; O2SAT 96
[2018-05-31 13:20] LABS: Bedside Glucose 412 mg/dL (70-110)
[2018-05-31 13:38] VITALS: BP 131/74; PULSE 87; RESP 16; O2SAT 97
--- NOTE | 2018-05-31 13:47 | PCM.HP.STD ---
Problem List (1) Gastroenteritis Status: Acute (2) Hyperglycemia Status: Acute History of Present Illness Date of Admission: 05/31/18 Chief Complaint: intractable nausea, vomiting and abdominal pain. The patient is a 53 year old M since with a week long history of intractable nausea, vomiting and abdominal pain. Just not feeling well so presented to the emergency room. In the emergency room patient had a initial blood sugar of 647. He did receive 10 units of Humalog. Scan showed no acute process but did show fluid throughout the colon. Patient denies any history of gastroparesis and states that he has never felt like this before. Patient being admitted for suspected gastroenteritis though gastroparesis could be an etiology of his symptoms. Patient states that he has been taking his insulin as prescribed. 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 Home Medications: Ambulatory Orders Medication Instructions Recorded Atorvastatin Calcium [Lipitor] 40 mg PO QHS 02/08/17 Lisinopril [Zestril] 10 mg PO DAILY 02/08/17 Insulin Lispro [Humalog] 10 unit SQ TIDCM 10/06/17 Seliqua 30 units SQ QHS 02/04/18 Dicyclomine HCl [Bentyl] 20 mg PO TIDAC #20 cap 05/18/18 proMETHazine tablet [Phenergan] 25 mg PO Q6H PRN PRN #10 tab 05/18/18 Ondansetron [Zofran Odt] 4 mg PO Q4H PRN PRN #10 tab.rapdis 05/23/18 Surgical History: Surgical History (Last Reviewed 05/31/18 @ 13:49 by Gabriel Zaidi DO) S/P laparoscopic cholecystectomy Z90.49 Surgical History: appendectomy Psychiatric History: No pertinent psych hx Smoking Status: Never smoker - *Family History Maternal History Items: No pertinent history, - - No diabetes Paternal History Items: No pertinent history Review of Systems Constitutional: Reports: Anorexia. Denies: Chills, Fever Eyes: Denies: Blurred vision, Double vision HEENT: Denies: Head Aches, Sinus Congestion, Sinus Drainage Cardiovascular: Denies: Chest Pain, Palpitations Respiratory: Denies: Cough, Shortness of breath at rest, Sputum production Gastrointestinal: Reports: Abdominal Pain, Diarrhea, Nausea, Vomiting Genitourinary: Denies: Dysuria Musculoskeletal: Denies: Joint Pain, Joint Tenderness Skin: Denies: Rash, Wounds Neurological: Denies: Numbness, Tingling, Focal weakness Psychiatric: Denies: Anxiety, Depression Endocrine: Denies: Change in Body Habitus, Heat/ Cold Intolerance Hematologic/ Lymphatic: Denies: Easy Bruising, Easy Bleeding, Hx of blood clot Comment: All review of systems are negative except as mentioned in the history of present illness and the other review of systems. VTE Information - Inpt Only VTE Present on Admission: No VTE Mechan Device Prophylaxis: None VTE Pharm Prophylaxis ordered?: Yes Patient Problems: Active and Suspected Problems (Last Reviewed 01/03/18 @ 14:47 by Юлия Grove) Gastroenteritis (Acute) Hyperglycemia (Acute) - Physical Exam General: Alert, Cooperative, - - Uncomfortable. Appears older than stated age. HEENT: Atraumatic, Normocephalic, - - Glasses Neck: No Nodes, Thyroid Normal Size and Texture Lungs: Clear to auscultation, Normal air movement, No rhonchi, No wheeze Cardiovascular: Regular rate, Regular Rhythm, Normal S1, Normal S2, No murmurs Abdomen: Non-Distended, Hypoactive Bowel Sounds, Tender Extremities: No edema, No Calf Tenderness Skin: No rashes, No breakdown Psych/Mental Status: Appropriate, Flat Affect Vital Signs Temp Pulse Resp BP Pulse Ox 36.7 C 87 16 131/74 H 97 05/31/18 08:51 05/31/18 13:38 05/31/18 13:38 05/31/18 13:38 05/31/18 13:38 Oxygen Delivery Method Room Air Weight: 66.2 kg Body Mass Index (BMI) 18.7 Finger Stick Blood Glucose 412 Laboratory Tests Past 24 Hrs 05/31/18 05/31/18 05/31/18 09:05 09:05 09:05 WBC 6.7 RBC 4.30 L Hgb 14.2 Hct 38.7 L MCV 90.0 MCH 33.0 H MCHC 36.7 H RDW 12.0 RDW Differential 39.0 Plt Count 161 MPV 10.5 Immature Gran % (Auto) 0.700 Neut % (Auto) 64.4 Lymph % (Auto) 24.1 [place] % (Auto) 9.0 Eos % (Auto) 1.5 Baso % (Auto) 0.3 Absolute Neuts (auto) 4.3 Absolute Lymphs (auto) 1.61 Total Counted Not Reportable Sodium 133 L Potassium 3.9 Chloride 98 Carbon Dioxide 29.0 Anion Gap 6 BUN 14 Creatinine 1.06 Estim Creat Clear Calc 76.33 Est GFR (MDRD) Af Amer 94 Est GFR (MDRD) Non-Af 78 BUN/Creatinine Ratio 13.2 Glucose 647 H* Calcium 8.8 Total Bilirubin 0.50 AST 74 H ALT 126 H Alkaline Phosphatase 96 Total Protein 8.7 H Albumin 3.3 Globulin 5.4 H Albumin/Globulin Ratio 0.6 L Lipase 316 Urine Color Urine Clarity Urine pH Ur Specific [place] Urine Protein Urine Glucose (UA) Urine Ketones Urine Occult Blood Urine Nitrite Urine Bilirubin Urine Urobilinogen Ur Leukocyte Esterase Urine RBC Urine WBC Ur Squamous Epith Cells Urine Bacteria Urine Mucus Acetone Level NEGATIVE 05/31/18 10:45 WBC RBC Hgb Hct MCV MCH MCHC RDW RDW Differential Plt Count MPV Immature Gran % (Auto) Neut % (Auto) Lymph % (Auto) [place] % (Auto) Eos % (Auto) Baso % (Auto) Absolute Neuts (auto) Absolute Lymphs (auto) Total Counted Sodium Potassium Chloride Carbon Dioxide Anion Gap BUN Creatinine Estim Creat Clear Calc Est GFR (MDRD) Af Amer Est GFR (MDRD) Non-Af BUN/Creatinine Ratio Glucose Calcium Total Bilirubin AST ALT Alkaline Phosphatase Total Protein Albumin Globulin Albumin/Globulin Ratio Lipase Urine Color Yellow Urine Clarity Clear Urine pH 6.0 Ur Specific [place] 1.010 Urine Protein 30 H Urine Glucose (UA) 1000 H Urine Ketones Negative Urine Occult Blood Negative Urine Nitrite Negative Urine Bilirubin Negative Urine Urobilinogen Normal Ur Leukocyte Esterase Negative Urine RBC 0 SEEN Urine WBC 0 SEEN Ur Squamous Epith Cells 0 SEEN Urine Bacteria 0 SEEN Urine Mucus 0 SEEN Acetone Level POC Glucose 05/31/18 05/31/18 05/31/18 13:16 12:09 08:53 POC Glucose 412 H > 500 H* > 500 H* Clinical Impression(s) from Imaging Studies Abdomen/Pelvis CT 05/31/18 09:07 IMPRESSION: No definite acute abnormality, but fluid throughout the colon can be seen in nonspecific colitis and diarrhea disorders. Electronically Signed: Aditya Villalobos MD at 12:01 EDT , Service support , Assessment/Plan All Active Problems (Last Reviewed 01/03/18 @ 14:47 by Юлия Grove) Gastroenteritis (Acute) Hyperglycemia (Acute) Acute pancreatitis (Acute) Gallstone pancreatitis (Acute) 1. Suspected gastroenteritis Other possibilities could be gastroparesis given the patient is a diabetic Supportive management, with IV fluids, pain control and antiemetics. We will add empiric H2B. 2. Hyperglycemia Not in DKA nor a hyperosmolar state Continue with his home regimen of once plus high medium dose sliding scale May be exacerbated due to the patient's underlying gastroenteritis 3. DVT prophylaxis with Lovenox Code Visit Inpatient E&M: 62180 Init Hosp L2
--- NOTE | 2018-05-31 13:51 | HP.PCM_ITS ---
Problem List (1) Gastroenteritis Status: Acute (2) Hyperglycemia Status: Acute History of Present Illness Date of Admission: 05/31/18 Chief Complaint: intractable nausea, vomiting and abdominal pain. The patient is a 53 year old M since with a week long history of intractable nausea, vomiting and abdominal pain. Just not feeling well so presented to the emergency room. In the emergency room patient had a initial blood sugar of 647. He did receive 10 units of Humalog. Scan showed no acute process but did show fluid throughout the colon. Patient denies any history of gastroparesis and states that he has never felt like this before. Patient being admitted for suspected gastroenteritis though gastroparesis could be an etiology of his symptoms. Patient states that he has been taking his insulin as prescribed. 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 Home Medications: Ambulatory Orders Medication Instructions Recorded Atorvastatin Calcium [Lipitor] 40 mg PO QHS 02/08/17 Lisinopril [Zestril] 10 mg PO DAILY 02/08/17 Insulin Lispro [Humalog] 10 unit SQ TIDCM 10/06/17 Seliqua 30 units SQ QHS 02/04/18 Dicyclomine HCl [Bentyl] 20 mg PO TIDAC #20 cap 05/18/18 proMETHazine tablet [Phenergan] 25 mg PO Q6H PRN PRN #10 tab 05/18/18 Ondansetron [Zofran Odt] 4 mg PO Q4H PRN PRN #10 tab.rapdis 05/23/18 Surgical History: Surgical History (Last Reviewed 05/31/18 @ 13:49 by Gabriel Zaidi DO) S/P laparoscopic cholecystectomy Z90.49 Surgical History: appendectomy Psychiatric History: No pertinent psych hx Smoking Status: Never smoker - *Family History Maternal History Items: No pertinent history, - - No diabetes Paternal History Items: No pertinent history Review of Systems Constitutional: Reports: Anorexia. Denies: Chills, Fever Eyes: Denies: Blurred vision, Double vision HEENT: Denies: Head Aches, Sinus Congestion, Sinus Drainage Cardiovascular: Denies: Chest Pain, Palpitations Respiratory: Denies: Cough, Shortness of breath at rest, Sputum production Gastrointestinal: Reports: Abdominal Pain, Diarrhea, Nausea, Vomiting Genitourinary: Denies: Dysuria Musculoskeletal: Denies: Joint Pain, Joint Tenderness Skin: Denies: Rash, Wounds Neurological: Denies: Numbness, Tingling, Focal weakness Psychiatric: Denies: Anxiety, Depression Endocrine: Denies: Change in Body Habitus, Heat/ Cold Intolerance Hematologic/ Lymphatic: Denies: Easy Bruising, Easy Bleeding, Hx of blood clot Comment: All review of systems are negative except as mentioned in the history of present illness and the other review of systems. VTE Information - Inpt Only VTE Present on Admission: No VTE Mechan Device Prophylaxis: None VTE Pharm Prophylaxis ordered?: Yes Patient Problems: Active and Suspected Problems (Last Reviewed 01/03/18 @ 14:47 by Юлия Grove) Gastroenteritis (Acute) Hyperglycemia (Acute) - Physical Exam General: Alert, Cooperative, - - Uncomfortable. Appears older than stated age. HEENT: Atraumatic, Normocephalic, - - Glasses Neck: No Nodes, Thyroid Normal Size and Texture Lungs: Clear to auscultation, Normal air movement, No rhonchi, No wheeze Cardiovascular: Regular rate, Regular Rhythm, Normal S1, Normal S2, No murmurs Abdomen: Non-Distended, Hypoactive Bowel Sounds, Tender Extremities: No edema, No Calf Tenderness Skin: No rashes, No breakdown Psych/Mental Status: Appropriate, Flat Affect Vital Signs Temp Pulse Resp BP Pulse Ox 36.7 C 87 16 131/74 H 97 05/31/18 08:51 05/31/18 13:38 05/31/18 13:38 05/31/18 13:38 05/31/18 13:38 Oxygen Delivery Method Room Air Weight: 66.2 kg Body Mass Index (BMI) 18.7 Finger Stick Blood Glucose 412 Laboratory Tests Past 24 Hrs 05/31/18 05/31/18 05/31/18 09:05 09:05 09:05 WBC 6.7 RBC 4.30 L Hgb 14.2 Hct 38.7 L MCV 90.0 MCH 33.0 H MCHC 36.7 H RDW 12.0 RDW Differential 39.0 Plt Count 161 MPV 10.5 Immature Gran % (Auto) 0.700 Neut % (Auto) 64.4 Lymph % (Auto) 24.1 [place] % (Auto) 9.0 Eos % (Auto) 1.5 Baso % (Auto) 0.3 Absolute Neuts (auto) 4.3 Absolute Lymphs (auto) 1.61 Total Counted Not Reportable Sodium 133 L Potassium 3.9 Chloride 98 Carbon Dioxide 29.0 Anion Gap 6 BUN 14 Creatinine 1.06 Estim Creat Clear Calc 76.33 Est GFR (MDRD) Af Amer 94 Est GFR (MDRD) Non-Af 78 BUN/Creatinine Ratio 13.2 Glucose 647 H* Calcium 8.8 Total Bilirubin 0.50 AST 74 H ALT 126 H Alkaline Phosphatase 96 Total Protein 8.7 H Albumin 3.3 Globulin 5.4 H Albumin/Globulin Ratio 0.6 L Lipase 316 Urine Color Urine Clarity Urine pH Ur Specific [place] Urine Protein Urine Glucose (UA) Urine Ketones Urine Occult Blood Urine Nitrite Urine Bilirubin Urine Urobilinogen Ur Leukocyte Esterase Urine RBC Urine WBC Ur Squamous Epith Cells Urine Bacteria Urine Mucus Acetone Level NEGATIVE 05/31/18 10:45 WBC RBC Hgb Hct MCV MCH MCHC RDW RDW Differential Plt Count MPV Immature Gran % (Auto) Neut % (Auto) Lymph % (Auto) [place] % (Auto) Eos % (Auto) Baso % (Auto) Absolute Neuts (auto) Absolute Lymphs (auto) Total Counted Sodium Potassium Chloride Carbon Dioxide Anion Gap BUN Creatinine Estim Creat Clear Calc Est GFR (MDRD) Af Amer Est GFR (MDRD) Non-Af BUN/Creatinine Ratio Glucose Calcium Total Bilirubin AST ALT Alkaline Phosphatase Total Protein Albumin Globulin Albumin/Globulin Ratio Lipase Urine Color Yellow Urine Clarity Clear Urine pH 6.0 Ur Specific [place] 1.010 Urine Protein 30 H Urine Glucose (UA) 1000 H Urine Ketones Negative Urine Occult Blood Negative Urine Nitrite Negative Urine Bilirubin Negative Urine Urobilinogen Normal Ur Leukocyte Esterase Negative Urine RBC 0 SEEN Urine WBC 0 SEEN Ur Squamous Epith Cells 0 SEEN Urine Bacteria 0 SEEN Urine Mucus 0 SEEN Acetone Level POC Glucose 05/31/18 05/31/18 05/31/18 13:16 12:09 08:53 POC Glucose 412 H > 500 H* > 500 H* Clinical Impression(s) from Imaging Studies Abdomen/Pelvis CT 05/31/18 09:07 IMPRESSION: No definite acute abnormality, but fluid throughout the colon can be seen in nonspecific colitis and diarrhea disorders. Electronically Signed: Aditya Villalobos MD at 12:01 EDT , Service support , Assessment/Plan All Active Problems (Last Reviewed 01/03/18 @ 14:47 by Юлия Grove) Gastroenteritis (Acute) Hyperglycemia (Acute) Acute pancreatitis (Acute) Gallstone pancreatitis (Acute) 1. Suspected gastroenteritis * Other possibilities could be gastroparesis given the patient is a diabetic * Supportive management, with IV fluids, pain control and antiemetics. * We will add empiric H2B. 2. Hyperglycemia * Not in DKA nor a hyperosmolar state * Continue with his home regimen of once plus high medium dose sliding scale * May be exacerbated due to the patient's underlying gastroenteritis 3. DVT prophylaxis with Lovenox Code Visit Inpatient E&M: 63219 Init Hosp L2
--- NOTE | 2018-05-31 13:58 | NURSING ---
320 GASTROENTERITIS QUIRINO
[2018-05-31 15:12] VITALS: BMI 17.9
[2018-05-31 15:13] VITALS: BP 149/92; PULSE 72; RESP 16; TEMP 36.4; O2SAT 100
[2018-05-31 15:15] VITALS: BMI 17.9
[2018-05-31] MEDS: 0.9% Normal Saline 1,000 ML 150 ML IV ×2 (16:11→23:01)
[2018-05-31 16:31] LABS: Bedside Glucose 233 mg/dL (70-110)
[2018-05-31] MEDS: Insulin Lispro 100 UNIT/ML INSULN.PEN SQ (18:28)
[2018-05-31 20:16] VITALS: BP 165/103; PULSE 68; RESP 16; TEMP 36; O2SAT 100
[2018-05-31] MEDS: HYDROmorphone 0.5 MG/0.5 ML SYRINGE 0.25 MG IV (20:19)
[2018-05-31] MEDS: 0.9% NaCl Peripheral Flush Adult/Peds IV ×2 (20:20→22:00)
[2018-05-31] MEDS: Atorvastatin Calcium 40 MG Tablet PO (22:00)
[2018-05-31 22:11] LABS: Bedside Glucose 256 mg/dL (70-110)
[2018-06-01 02:23] VITALS: BP 153/95; PULSE 73; RESP 16; TEMP 36.6; O2SAT 99
[2018-06-01] MEDS: 0.9% NaCl Peripheral Flush Adult/Peds IV ×2 (02:25→06:27)
[2018-06-01] MEDS: HYDROmorphone 0.5 MG/0.5 ML SYRINGE 0.25 MG IV ×3 (02:25→14:35)
[2018-06-01] MEDS: 0.9% Normal Saline 1,000 ML 150 ML IV ×2 (06:27→07:00)
[2018-06-01] MEDS: Ketorolac 15 MG/ML Vial IV (06:27)
[2018-06-01 07:10] LABS: Absolute Lymphocyte Count 2.34 X10^3/ul (0.83-4.51); Absolute Neutrophil Count 2.1 X10^3/uL (2.0-7.7); Basophil# 0.02 X10^3/uL; Basophil% 0.4 % (0-1); Eosinophil# 0.11 X10^3/uL; Eosinophils% 2.2 % (0-5); Hematocrit 32.6 % (40-54); Hemoglobin 11.8 g/dl (13.0-16.5); Lymphocyte # 2.34 X10^3/ul (4.0); Lymphocyte % 47.1 % (19-41); Mean Corp Hgb Conc 36.2 g/gl (32-36); Mean Corpuscular Hgb 32.7 pg (27.0-32.0); Mean Corpuscular Volume 90.3 fL (80-94); Mean Platelet Vol. 10.2 fl (6.2-12.0); Monocyte# 0.38 X10^3/uL; Monocyte% 7.6 % (0-10); Neutrophil # 2.11 X10^3/uL (2.7-7.7); Neutrophil % 42.5 % (47-70); POSITIVE COUNT NO; POSITIVE DIFFERENTIAL NO; POSITIVE MORPHOLOGY NO; Platelet Count 96 K/mm3 (150-450); RBC Distribution Width CV 12.6 % (11.6-14.6); RBC Distribution Width SD 41.7 fl (35.1-43.9); Red Blood Count 3.61 M/mm3 (4.6-6.2)
[2018-06-01 07:38] LABS: Anion Gap 5 (5-15); BUN 9 mg/dL (7-18); BUN/Creat Ratio 15.6 RATIO (10-20); Calcium,Total 7.3 mg/dL (8.5-10.1); Chloride 105 mmol/L (98-107); Creatinine, Serum 0.58 mg/dL (0.70-1.30); EST Glomerular Filtration Rate 157 mL/min (>60); Est Glom Filt Rate - Afr Amer 190 mL/min (>60); Estimated Creatinine Clearance 133.39 ml/min; Glucose 311 mg/dL (74-106); Potassium 3.6 mmol/L (3.5-5.1); Sodium Level 136 mmol/L (136-145)
[2018-06-01 08:09] LABS: Hemoglobin A1c 12.9 % (4.2-6.3)
[2018-06-01 08:15] VITALS: BP 149/95; PULSE 70; RESP 16; TEMP 36.7; O2SAT 100
[2018-06-01] MEDS: Insulin Lispro 100 UNIT/ML INSULN.PEN 10 UNIT SC ×2 (08:32→12:37)
[2018-06-01] MEDS: Insulin Lispro 100 UNIT/ML INSULN.PEN SQ ×2 (08:33→12:36)
[2018-06-01 08:41] LABS: Bedside Glucose 320 mg/dL (70-110)
[2018-06-01] MEDS: Enoxaparin 40 MG/0.4 ML Syringe SC (10:08)
[2018-06-01] MEDS: Lisinopril 10 MG Tablet PO (10:08)
--- NOTE | 2018-06-01 11:15 | CASEMGMT ---
[facility] Face to Face with patient for initial transition planning/care coordination assessment. RN CM introduced self and role at [facility]. Patient lying in bed, alert and oriented. Patient willing to participate in assessment and is able to answer all questions appropriately. Care providers, pharmacy, and demographics verified. Patient lives with in a 1 story house. Patient denies need for DME at this time. Patient wishes to discharge home, denies need for home health at this time. Patient states he has no further needs or concerns at this time. CM to follow for discharge planning needs that may arise. Disposition Plan: Patient to discharge home with family support and follow-up plans in place.
[2018-06-01 12:20] LABS: Bedside Glucose 197 mg/dL (70-110)
[2018-06-01 14:23] VITALS: BP 157/78; PULSE 80; RESP 16; TEMP 36.9; O2SAT 95
[2018-06-01] MEDS: Glucerna Shake 120 ML LIQUID PO (14:35)
--- NOTE | 2018-06-01 14:54 | DCINST_ITS ---
- Discharge Diagnoses Current Active Problems: Current Active and Chronic Problems (Last Reviewed 05/31/18 @ 13:49 by Gabriel Zaidi DO) Gastroenteritis (Acute) Hyperglycemia (Acute) You will use the following diet at home:: Calorie/Carbohydrate Controlled ( specify 1200, 1400, etc) - 1800 mila. Your food should be the consistency of: Regular Discharge Activity: Return to Normal Activity Weight Bearing Status: Full weight bearing Call your doctor if you observe: Fever of 101 or Higher, Shortness of breath, Dizziness, Fainting spells, Chest pain, Increased palpitations (irregular heartbeat), Uncontrolled pain Instructions: ED Gastroenteritis Viral Allergies/Adverse Reactions: Allergies morphine Allergy (Verified 05/31/18 14:05) headaches pt states gets very bad headaches from morphine fentanyl Adverse Reaction (Verified 05/31/18 14:05) Pt didn't like how it made him feel PT STATES HE DOES NOT LIKE HOW IT MAKES HIM FEEL. Medications to take at Discharge Atorvastatin Calcium [Lipitor] 40 mg PO QHS 02/08/17 Lisinopril [Zestril] 10 mg PO DAILY 02/08/17 Insulin Lispro [Humalog] 10 unit SQ TIDCM 10/06/17 Seliqua 30 units SQ QHS 02/04/18 proMETHazine tablet [Phenergan tablet] 25 mg PO Q6H PRN PRN #10 tab 05/18/18 Ondansetron [Zofran Odt] 4 mg PO Q4H PRN PRN #10 tab.rapdis 05/23/18 Dicyclomine HCl [Bentyl] 20 mg PO TIDAC 05/31/18 Primary Care Physician: Timothy Fisher Chi, MD [Primary Care Provider] - Please follow up with your Primary Care Physician in: 1 WEEK. Test Results: Test results from this visit will be discussed in further detail at your follow- up appointment, if applicable.
--- NOTE | 2018-06-01 14:59 | DS.PCM_ITS ---
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 Electronically Signed: Aditya Villalobos MD at 12:01 EDT , Service support , Operations: None Procedures: None Summary of Care Provided: Patient seen and examined on the day of discharge and appeared to be stable to be discharged home. He has no more diarrhea. Abdominal pain improved, no more nausea vomiting. He tolerated diet. His vital signs are stable. - Physical Exam General: Alert, Oriented x3, Cooperative, No apparent distress. HEENT: Atraumatic, PERRLA, EOMI. Neck: Supple, No JVD, Negative Carotid Bruits, Trachea Midline, Thyroid Normal. Lungs: Clear to auscultation, Normal air movement, No rhonchi, No wheeze, No rales. Cardiovascular: Regular rate, Regular Rhythm, Normal S1, Normal S2, PMI Normal. Abdomen: Bowel Sounds Present, Soft, Non Tender, Non-Distended, No Hepato- splenomegaly. Extremities: No clubbing, No cyanosis, No edema Skin: No rashes, No breakdown Neurological: Neuro grossly intact Vital Signs are stable. Hospital course: The patient is a 53 year old M admitted because of intractable nausea, vomiting , diarrhea and abdominal pain and he was found to have acute gastroenteritis probably viral etiology. He was treated with IV fluids, IV antiemetics and IV Dilaudid for pain. CT scan abdomen and pelvis with IV contrast revealed no acute abnormality, revealed fluid throughout the colon which could be due to gastroenteritis versus nonspecific colitis. After admission, she had no more diarrhea and he could give a sample for C. difficile testing. His routine blood work was unremarkable. His LFT revealed chronically elevated liver transaminases, normal total bilirubin as well as alkaline phosphatase. Lipase was normal. On admission, blood sugar was 647 mg/dL. There was no evidence of DKA. Patient had type 2 diabetes mellitus and epilepsy, it is not well controlled. His hemoglobin A1c on November, was 13.2. During this admission, hemoglobin A1c was 12.9. After admission, he has continued on his home doses of Humalog pre-meal insulin as well as Seliqua and his sugar remained around 200s. Patient was asking for IV Dilaudid almost around-the- clock for pain control. I informed the patient that his pain is likely because of the inflammation caused by the gastroenteritis and IV Toradol would be the better option to treat inflammation. He jumped up and said IV Toradol does not work for me. I suspected that patient may have drug-seeking behavior. With above-mentioned treatment, patient symptoms improved. He tolerated ADA diet. Patient discharged home in a stable medical condition, discharged on his chronic home medications without any changes, no changes made to his insulin regimen, recommended to check blood sugar at least 3-4 times daily, follow-up with PCP in 1 week. Discharge Activity: Return to Normal Activity Weight Bearing Status: Full weight bearing Call your doctor if you observe: Fever of 101 or Higher, Shortness of breath, Dizziness, Fainting spells, Chest pain, Increased palpitations (irregular heartbeat), Uncontrolled pain Home Medications: Medications to take at Discharge Atorvastatin Calcium [Lipitor] 40 mg PO QHS 02/08/17 Lisinopril [Zestril] 10 mg PO DAILY 02/08/17 Insulin Lispro [Humalog] 10 unit SQ TIDCM 10/06/17 Seliqua 30 units SQ QHS 02/04/18 proMETHazine tablet [Phenergan tablet] 25 mg PO Q6H PRN PRN #10 tab 05/18/18 Ondansetron [Zofran Odt] 4 mg PO Q4H PRN PRN #10 tab.rapdis 05/23/18 Dicyclomine HCl [Bentyl] 20 mg PO TIDAC 05/31/18 Primary Care Physician: Timothy Fisher Chi, MD [Primary Care Provider] - Please follow up with your Primary Care Physician in: 1 WEEK. Patient Instructions: ED Gastroenteritis Viral Disposition: Home Minutes spent on discharge:: 25 Patient Condition:: Stable Medical Necessity - Tobacco Use Smoking Status: Former smoker Tobacco Use: Cigars Meaningful Use Info Meaningful Use Diagnoses (Choose all that apply): None applicable Code Visit OBSV E&M: 54787 Observation care discharge
== END 2018-06-01 15:19 | disposition home or self-care (01) ==
LOC: ED 09:33 → MS3 14:07
PROVIDERS: Emergency Provider Emergency Medicine; Family Provider Family Medicine Geriatric Medicine; PCP Family Medicine Geriatric Medicine; Visit Provider Hospitalist
DX: K52.9 Noninfective gastroenteritis and colitis, unspecified (principal); E11.65 Type 2 diabetes mellitus with hyperglycemia; I10 Essential (primary) hypertension; E11.621 Type 2 diabetes mellitus with foot ulcer; L97.529 Non-pressure chronic ulcer of other part of left foot with unspecified severity; Z79.899 Other long term (current) drug therapy; Z79.4 Long term (current) use of insulin; Z87.891 Personal history of nicotine dependence
CPT/HCPCS: 36415; 36592; 74177; 80048; 80053; 81001; 82009; 82962; 83036; 83690; 85025; 96361; 96372; 96374; 96375; 96376; 97162; 97166; 97802; 97803; 99218; 99284; J7030; Q9967; A4216; G0378; J2405; J3490

== ENCOUNTER 2018-06-03 07:06 | Emergency (ER) | payer MEDICAID, SELFPAY ==
[2018-06-03 07:06] VITALS: BP 132/91; PULSE 79; RESP 16; TEMP 36.7; O2SAT 100; BMI 19.9
[2018-06-03] MEDS: HYDROmorphone 1 MG/ML Syringe 0.5 MG IV (07:44)
[2018-06-03] MEDS: 0.9% Normal Saline 1,000 ML 1000 ML IV (07:44)
[2018-06-03] MEDS: Ondansetron 4 MG/2 ML Vial IV (07:44)
[2018-06-03 08:14] LABS: ALB/GLOB Ratio 0.6 RATIO (0.9-2.4); AST(SGOT) 82 U/L (15-37); Alanine Aminotransfer ALT/SGPT 111 U/L (16-61); Alkaline Phosphatase 79 U/L (45-117); Anion Gap 6 (5-15); BUN 7 mg/dL (7-18); BUN/Creat Ratio 10.4 RATIO (10-20); Calcium,Total 8.2 mg/dL (8.5-10.1); Chloride 100 mmol/L (98-107); Creatinine, Serum 0.67 mg/dL (0.70-1.30); EST Glomerular Filtration Rate 132 mL/min (>60); Est Glom Filt Rate - Afr Amer 160 mL/min (>60); Estimated Creatinine Clearance 125.14 ml/min; Globulin 4.9 g/dL (2.2-4.2); Glucose 319 mg/dL (74-106); Lipase 111 U/L (73-393); Potassium 3.3 mmol/L (3.5-5.1); Protein, Total 7.9 g/dL (6.4-8.2); Sodium Level 135 mmol/L (136-145)
[2018-06-03 08:20] LABS: Absolute Lymphocyte Count 1.47 X10^3/ul (0.83-4.51); Absolute Neutrophil Count 2.1 X10^3/uL (2.0-7.7); Basophil# 0.01 X10^3/uL; Basophil% 0.2 % (0-1); Eosinophil# 0.07 X10^3/uL; Eosinophils% 1.7 % (0-5); Hematocrit 34.4 % (40-54); Hemoglobin 12.8 g/dl (13.0-16.5); Lymphocyte # 1.47 X10^3/ul (4.0); Lymphocyte % 36.1 % (19-41); Mean Corpuscular Volume 90.1 fL (80-94); Mean Platelet Vol. 10.1 fl (6.2-12.0); Monocyte% 9.8 % (0-10); Neutrophil % 51.7 % (47-70); Platelet Count 119 K/mm3 (150-450); RBC Distribution Width CV 12.8 % (11.6-14.6); RBC Distribution Width SD 41.3 fl (35.1-43.9); Red Blood Count 3.82 M/mm3 (4.6-6.2); White Blood Count 4.1 K/mm3 (4.4-11.0)
[2018-06-03 08:21] LABS: Mean Corpuscular Hgb 33.5 pg (27.0-32.0)
[2018-06-03 08:23] LABS: Mean Corp Hgb Conc 37.2 g/gl (32-36); POSITIVE COUNT NO; POSITIVE DIFFERENTIAL NO; POSITIVE MORPHOLOGY NO
[2018-06-03 08:29] LABS: Mucous, Urine 0 SEEN /hpf (<or=2+); Red Blood Cells-Urine 0 SEEN /hpf (0-5); Squamous Epithelial Cells - UA 0 SEEN /hpf (0-5); White Blood Cells 0 SEEN /hpf (0-5)
[2018-06-03 08:32] LABS: Color, Urine Yellow (Yellow); Glucose, Dipstick 1000 mg/dl (Normal); Ketone-Dipstick 15 mg/dl (Negative); Leukocyte Esterase-Dipstick Negative /ul (Negative); Nitrite-Dipstick Negative (Negative); Occult Blood-Urine Negative /ul (Negative); Protein-Dipstick 30 mg/dl (Negative); Urine Bilirubin Dipstick Negative (Negative); Urine Clarity Clear (Clear); Urine Urobilinogen 4 mg/dl (Normal)
[2018-06-03 08:50] LABS: Bacteria RARE /hpf (None Seen)
--- NOTE | 2018-06-03 09:07 | ED.DCSUM_ITS ---
- ER Visit Summary Date of Service: 06/03/18 Chief Complaint: Kidney pain History of Present Illness: The patient is a 53 M with bilateral kidney pain. Symptoms started today. Associated with nausea. Denies vomiting or diarrhea. He was admitted several days ago for hyperglycemia, nausea, vomiting, and diarrhea. He was presumed to have gastroenteritis. Patient has a history of diabetes, hypertension. He denies any other associated symptoms like fevers, vomiting, diarrhea, abdominal pain. He said his sugars have been in the 190s and he is taking his medication. Physical Examination: Afebrile and vital signs unremarkable. Patient is sitting in no acute distress. Moving comfortably. Abdomen is soft and nontender. Bilateral lower back is tender to palpation with light skin touch. Heart regular. Lungs clear. Extremities unremarkable. Test Results: White count 4.1, hemoglobin 12.8, platelets 119. Sodium 135, potassium 3.3, glucose 319. Anion gap and CO2 normal. Ketones negative. ALT 111 and AST 82. Lipase normal. Urinalysis shows glucose and some ketones but is otherwise unremarkable. Emergency Department Course and Treatment: Patient treated with fluids, Zofran, and 0.5 mg of Dilaudid while awaiting results. Workup showed hyperglycemia without complication. He was treated with fluid bolus. He will need continued insulin therapy, but I believe he is appropriate for outpatient therapy. His CBC shows pancytopenia. His hemoglobin is improved but his white count and platelets are slightly decreased. He has had low numbers before. He has had elevated liver enzymes before. I believe these issues are appropriate for outpatient follow-up. Patient has no interval changes, injuries, or other concerns which would indicate repeat abdominal and pelvis imaging. Patient will be discharged to follow-up with his primary doctor. Watch blood sugars closely and use insulin as directed. Monitor for any new or worsening symptoms. Treatment Plan: As above Disposition: Discharged Impression: 1. Hyperglycemia 2. Pancytopenia 3. Elevated LFTs 4. Back pain This note was generated with [employer] dictation software. It may contain incorrect words, spelling, and punctuation that were not noted in review of the chart prior to signing ED Disposition - Plan for ED Patient: Chief Complaint: Flank Pain Referrals: Timothy Fisher Chi, MD [Primary Care Provider] -
--- NOTE | 2018-06-03 09:07 | ED.DEP ---
ED Disposition - Plan for ED Patient: Chief Complaint: Flank Pain Instructions: ED Hyperglycemia Diabetic Referrals: Timothy Fisher Chi, MD [Primary Care Provider] -
[2018-06-03 09:20] VITALS: BP 118/75; PULSE 90; RESP 16; O2SAT 98
== END 2018-06-03 09:21 | disposition home or self-care (01) ==
PROVIDERS: Emergency Provider Emergency Medicine; Family Provider Family Medicine Geriatric Medicine; PCP Family Medicine Geriatric Medicine
DX: E11.65 Type 2 diabetes mellitus with hyperglycemia (principal); D61.818 Other pancytopenia; R94.5 Abnormal results of liver function studies; M54.5 Low back pain; I10 Essential (primary) hypertension; Z87.891 Personal history of nicotine dependence; Z79.4 Long term (current) use of insulin; Z79.899 Other long term (current) drug therapy
CPT/HCPCS: 80053; 81001; 82009; 83690; 85025; 96361; 96374; 96375; 99285; J7030; A4216; J2405

== ENCOUNTER 2018-06-07 02:25 | Emergency (ER) | payer MEDICAID, SELFPAY ==
[2018-06-07 02:27] VITALS: BP 151/115; PULSE 97; RESP 17; TEMP 36.9; O2SAT 99; BMI 19.9
--- NOTE | 2018-06-07 02:41 | ED.VISSUMM ---
- ER Visit Summary Date of Service: 06/07/18 Chief Complaint: Acute on chronic abdominal pain History of Present Illness: The patient is a 53 M known history of chronic abdominal pain, insulin-dependent diabetes, spinal stenosis neuropathies. He has had both prior appendectomy and cholecystectomy. Patient is seen here quite frequently for his abdominal pain. He has had 6 CTs of the abdomen and pelvis so far this year. The most recent one was unremarkable. He states that he has had pain for nearly a week. Associated nausea and vomiting. No diarrhea. No dysuria. No fever. He denies any abdominal trauma. Physical Examination: Middle-aged male vital signs stable afebrile. Complaining of abdominal pain. No distress. H EENT exam unremarkable. Moist mucous membranes. Neck nontender. No lymphadenopathy. Lungs clear to auscultation bilaterally. Heart regular rhythm no murmur. Abdomen soft. Nondistended. Normal bowel sounds. No peritoneal signs. No hernias or masses. Both the right upper and right lower quadrants are tender but he is tender over his entire abdomen. There are no signs of bowel obstruction. No masses. No pulsatile mass. He is moving all 4 extremities. They are neurovascularly intact. Back nontender. Neurologically is awake and alert. Test Results: CBC showed a white count of 4. Hemoglobin 11.8 which is his baseline anemia. Electrolytes unremarkable gap of 9 creatinine 0.6. Liver enzymes unremarkable ALT 134 AST 108 lipase normal. Emergency Department Course and Treatment: Patient will be treated with IV fluids and IV Zofran. I do not feel at this time he needs any imaging he had a recent CT abdomen pelvis which was negative. Will do screening labs. Treatment Plan: Repeat exam at 02 16. Patient is requesting narcotic pain meds which I explained to him I do not feel is in his best interest. He has chronic abdominal pain of uncertain etiology. He will be discharged home. Disposition: Discharge Impression: Acute on chronic abdominal pain of uncertain etiology History of insulin-dependent diabetes This note was generated with [employer] dictation software. It may contain incorrect words, spelling, and punctuation that were not noted in review of the chart prior to signing ED Disposition - Plan for ED Patient: Chief Complaint: Abd Pain Referrals: Timothy Fisher Chi, MD [Primary Care Provider] -
[2018-06-07] MEDS: 0.9% Normal Saline 1,000 ML 1000 ML IV (03:17)
[2018-06-07] MEDS: Ketorolac 30 MG/ML Syringe IV (03:17)
[2018-06-07] MEDS: Ondansetron 4 MG/2 ML Vial IV (03:17)
[2018-06-07 03:31] LABS: AST(SGOT) 108 U/L (15-37); Alanine Aminotransfer ALT/SGPT 134 U/L (16-61); Albumin, Serum 2.9 g/dL (3.2-5.0); Alkaline Phosphatase 69 U/L (45-117); Anion Gap 9 (5-15); BUN 9 mg/dL (7-18); BUN/Creat Ratio 14.5 RATIO (10-20); Bilirubin, Direct 0.12 mg/dL (0.00-0.30); Calcium,Total 8.5 mg/dL (8.5-10.1); Chloride 103 mmol/L (98-107); Creatinine, Serum 0.62 mg/dL (0.70-1.30); EST Glomerular Filtration Rate 145 mL/min (>60); Est Glom Filt Rate - Afr Amer 176 mL/min (>60); Estimated Creatinine Clearance 135.04 ml/min; Globulin 4.8 g/dL (2.2-4.2); Glucose 199 mg/dL (74-106); Lipase 97 U/L (73-393); Potassium 3.8 mmol/L (3.5-5.1); Protein, Total 7.7 g/dL (6.4-8.2); Sodium Level 141 mmol/L (136-145)
[2018-06-07 03:37] LABS: Absolute Lymphocyte Count 2.07 X10^3/ul (0.83-4.51); Absolute Neutrophil Count 2.1 X10^3/uL (2.0-7.7); Basophil# 0.02 X10^3/uL; Basophil% 0.4 % (0-1); Eosinophil# 0.09 X10^3/uL; Eosinophils% 1.8 % (0-5); Hematocrit 33.1 % (40-54); Lymphocyte # 2.07 X10^3/ul (4.0); Lymphocyte % 41.9 % (19-41); Mean Corpuscular Volume 89.7 fL (80-94); Mean Platelet Vol. 9.8 fl (6.2-12.0); Monocyte# 0.58 X10^3/uL; Monocyte% 11.7 % (0-10); Neutrophil # 2.13 X10^3/uL (2.7-7.7); Neutrophil % 43.2 % (47-70); Platelet Count 154 K/mm3 (150-450); RBC Distribution Width CV 12.1 % (11.6-14.6); RBC Distribution Width SD 38.5 fl (35.1-43.9); Red Blood Count 3.69 M/mm3 (4.6-6.2); White Blood Count 4.9 K/mm3 (4.4-11.0)
[2018-06-07 03:50] LABS: Hemoglobin 11.8 g/dl (13.0-16.5)
[2018-06-07 03:51] LABS: Differential Indicated SCAN CRITERIA MET; Mean Corp Hgb Conc 35.6 g/gl (32-36); POSITIVE COUNT YES; POSITIVE DIFFERENTIAL NO; POSITIVE MORPHOLOGY NO
[2018-06-07 04:04] LABS: Platelet Estimate ADEQUATE (ADEQ)
[2018-06-07 04:05] LABS: Red Cell Morphology NORM C+C NORMAL (NORM C&C)
--- NOTE | 2018-06-07 04:25 | NURSING ---
DR. TAPIA WAS MADE AWARE THAT THE PATIENT IS STILL HAVING PAIN. HE STATES THAT HE IS GOING TO DISCHARGE HIM AND HE ISN'T GIVING HIM ANYTHING ELSE.
--- NOTE | 2018-06-07 04:27 | ED.DEP ---
ED Disposition - Plan for ED Patient: Disposition: Home or Assisted Living Chief Complaint: Abd Pain Instructions: ED Abdominal Pain Unkn Cause Referrals: Timothy Fisher Chi, MD [Primary Care Provider] - As soon as possible Additional Instructions: Plenty of fluids and rest. Call follow-up with Dr. Kwok. Heath as needed for nausea.
--- NOTE | 2018-06-07 04:35 | ED.RN ---
PT REFUSED D/C INSTRUCTIONS. IV D/C. IV CATHETER INTACT. PT STATES FUCK YOU AND FUCK THIS PLACE. I DON'T KNOW WHY THE [facility] IS EVEN HERE. THIS PLACE IS FUCKING WORTHLESS. PT REFUSING ANY FURTHER VS OR HOME PACK OF MEDICATION. PT ESCORTED OUT OF DEPARTMENT BY SECURITY
[2018-06-07 04:37] VITALS: BP 167/103
== END 2018-06-07 04:38 | disposition home or self-care (01) ==
PROVIDERS: Emergency Provider Emergency Medicine; Family Provider Family Medicine Geriatric Medicine; PCP Family Medicine Geriatric Medicine
DX: R10.84 Generalized abdominal pain (principal); G89.29 Other chronic pain; E11.9 Type 2 diabetes mellitus without complications; M48.00 Spinal stenosis, site unspecified; G62.9 Polyneuropathy, unspecified; Z79.4 Long term (current) use of insulin
CPT/HCPCS: 80048; 80076; 83690; 85025; 96361; 96374; 96375; 99285; J7030; A4216; J2405

== ENCOUNTER 2018-07-12 03:17 | Emergency (ER) | payer MEDICAID, SELFPAY ==
[2018-07-12 03:17] VITALS: BP 173/113; PULSE 100; RESP 20; TEMP 36.3; O2SAT 99; BMI 17.9
--- NOTE | 2018-07-12 03:33 | ED.VISSUMM ---
- ER Visit Summary Date of Service: 07/12/18 Chief Complaint: Abdominal pain, back pain History of Present Illness: The patient is a 53 M who presents with worsening of his chronic abdominal pain. Patient states Dr. Oracio montes is planning to do a colonoscopy and EGD soon. He is complaining of increased pain tonight, diarrhea, decreased p.o. intake. Patient is also complaining of worsening spinal stenosis pain and neuropathy in his feet. Patient has not been taking anything at home stating that Tylenol does not work. He said usually if doctors give him anything Percocet will help. Physical Examination: Blood pressure is 173/113, temperature 97.4, heart rate 100, respiratory rate 20, pulse ox 99% on room air. Patient sitting upright in bed no acute distress. He is nontoxic appearing. Head and neck examination is unremarkable. Heart is regular rate and rhythm. Lung sounds are clear. Abdomen is soft with minimal lower abdominal tenderness. There is no guarding or rebound. Hypoactive bowel sounds are noted throughout. Lower extremity examination reveals strong distal pulses. No significant calf tenderness or edema. Test Results: CBC was normal white count hemoglobin. Platelet count is 116,000. Chemistry studies reveal potassium 3.4 and glucose of 583. Urinalysis shows 1000 and glucose. Emergency Department Course and Treatment: I did review the patient's last couple workups. Patient is noted to have had 6 CT scans of his abdomen and pelvis this year alone. At his last visit ED attending explained to him that it is not in his best interest to keep getting narcotics for chronic abdominal pain. At this time patient has been ordered Zofran and Bentyl. Upon completion of lab work, patient is ordered 10 units of subcu insulin, 40 mEq of potassium chloride, and a total of 2 L of IV fluid. Repeat blood sugars are 315 followed by 266. Patient reportedly did have another episode of vomiting and received Zofran ODT. On repeat exam patient is still complaining of abdominal and leg pain, but abdomen is soft with no focal tenderness on exam. He is given a single dose of tramadol here. He will be discharged with Zofran and potassium. Treatment Plan: [] Disposition: Discharge Impression: 1. Chronic abdominal pain 2. Vomiting, improved 3. Hyperglycemia, improved 4. Mild hypokalemia This note was generated with [employer] software. It may contain incorrect words, spelling, and punctuation that were not noted in review of the chart prior to signing ED Disposition - Plan for ED Patient: Chief Complaint: General Illness Referrals: Timothy Fisher Chi, MD [Primary Care Provider] -
--- NOTE | 2018-07-12 03:36 | ED.DCSUM_ITS ---
- ER Visit Summary Date of Service: 07/12/18 Chief Complaint: Abdominal pain, back pain History of Present Illness: The patient is a 53 M who presents with worsening of his chronic abdominal pain. Patient states Dr. Oracio montes is planning to do a colonoscopy and EGD soon. He is complaining of increased pain tonight, diarrhea, decreased p.o. intake. Patient is also complaining of worsening spinal stenosis pain and neuropathy in his feet. Patient has not been taking anything at home stating that Tylenol does not work. He said usually if doctors give him anything Percocet will help. Physical Examination: Blood pressure is 173/113, temperature 97.4, heart rate 100, respiratory rate 20, pulse ox 99% on room air. Patient sitting upright in bed no acute distress. He is nontoxic appearing. Head and neck examination is unremarkable. Heart is regular rate and rhythm. Lung sounds are clear. Abdomen is soft with minimal lower abdominal tenderness. There is no guarding or rebound. Hypoactive bowel sounds are noted throughout. Lower extremity examination reveals strong distal pulses. No significant calf tenderness or edema. Test Results: CBC was normal white count hemoglobin. Platelet count is 116, 000. Chemistry studies reveal potassium 3.4 and glucose of 583. Urinalysis shows 1000 and glucose. Emergency Department Course and Treatment: I did review the patient's last couple workups. Patient is noted to have had 6 CT scans of his abdomen and pelvis this year alone. At his last visit ED attending explained to him that it is not in his best interest to keep getting narcotics for chronic abdominal pain. At this time patient has been ordered Zofran and Bentyl. Upon completion of lab work, patient is ordered 10 units of subcu insulin, 40 mEq of potassium chloride, and a total of 2 L of IV fluid. Repeat blood sugars are 315 followed by 266. Patient reportedly did have another episode of vomiting and received Zofran ODT. On repeat exam patient is still complaining of abdominal and leg pain, but abdomen is soft with no focal tenderness on exam. He is given a single dose of tramadol here. He will be discharged with Zofran and potassium. Treatment Plan: [] Disposition: Discharge Impression: 1. Chronic abdominal pain 2. Vomiting, improved 3. Hyperglycemia, improved 4. Mild hypokalemia This note was generated with [employer] software. It may contain incorrect words, spelling, and punctuation that were not noted in review of the chart prior to signing ED Disposition - Plan for ED Patient: Chief Complaint: General Illness Referrals: Timothy Fisher Chi, MD [Primary Care Provider] -
[2018-07-12] MEDS: 0.9% Normal Saline 1,000 ML 1000 ML IV (03:38)
[2018-07-12] MEDS: proMETHazine 25 MG/ML Syringe 12.5 MG IV (03:38)
[2018-07-12 03:39] LABS: Bacteria 0 SEEN /hpf (None Seen); Mucous, Urine 0 SEEN /hpf (<or=2+); Red Blood Cells-Urine 0 SEEN /hpf (0-5); Squamous Epithelial Cells - UA 0 SEEN /hpf (0-5); White Blood Cells 0 SEEN /hpf (0-5)
[2018-07-12] MEDS: Dicyclomine 20 MG/2 ML Vial IM (03:39)
[2018-07-12 03:43] LABS: Color, Urine Yellow (Yellow); Glucose, Dipstick 1000 mg/dl (Normal); Ketone-Dipstick Negative (Negative); Leukocyte Esterase-Dipstick Negative /ul (Negative); Nitrite-Dipstick Negative (Negative); Occult Blood-Urine Negative /ul (Negative); Protein-Dipstick 30 mg/dl (Negative); Specific Gravity, Urine 1.005 (1.002-1.030); Urine Bilirubin Dipstick Negative (Negative); Urine Clarity Clear (Clear); Urine Urobilinogen 1 mg/dl (Normal); Urine pH 6.5 (5.0 - 8.0)
[2018-07-12 03:45] LABS: Absolute Neutrophil Count 3.1 X10^3/uL (2.0-7.7); Basophil# 0.03 X10^3/uL; Basophil% 0.5 % (0-1); Eosinophil# 0.14 X10^3/uL; Eosinophils% 2.4 % (0-5); Hematocrit 38.8 % (40-54); Hemoglobin 14.7 g/dl (13.0-16.5); Lymphocyte % 31.4 % (19-41); Mean Corpuscular Volume 89.6 fL (80-94); Mean Platelet Vol. 10.2 fl (6.2-12.0); Monocyte# 0.61 X10^3/uL; Monocyte% 10.6 % (0-10); Neutrophil # 3.11 X10^3/uL (2.7-7.7); Neutrophil % 54.2 % (47-70); Platelet Count 116 K/mm3 (150-450); RBC Distribution Width CV 11.8 % (11.6-14.6); RBC Distribution Width SD 38.1 fl (35.1-43.9); Red Blood Count 4.33 M/mm3 (4.6-6.2); White Blood Count 5.7 K/mm3 (4.4-11.0)
[2018-07-12 03:56] LABS: Anion Gap 9 (5-15); BUN 11 mg/dL (7-18); BUN/Creat Ratio 10.7 RATIO (10-20); Calcium,Total 9.1 mg/dL (8.5-10.1); Chloride 93 mmol/L (98-107); Creatinine, Serum 1.03 mg/dL (0.70-1.30); EST Glomerular Filtration Rate 81 mL/min (>60); Est Glom Filt Rate - Afr Amer 98 mL/min (>60); Estimated Creatinine Clearance 72.86 ml/min; Glucose 583 mg/dL (74-106); Potassium 3.4 mmol/L (3.5-5.1); Sodium Level 134 mmol/L (136-145)
[2018-07-12 04:05] LABS: Mean Corpuscular Hgb 32.3 pg (27.0-32.0)
[2018-07-12 04:06] LABS: Differential Indicated SCAN CRITERIA MET; Mean Corp Hgb Conc 36.1 g/gl (32-36); POSITIVE COUNT YES; POSITIVE DIFFERENTIAL NO; POSITIVE MORPHOLOGY NO
[2018-07-12 04:09] LABS: Anisocytosis RARE; Platelet Estimate SLT DEC (ADEQ)
[2018-07-12] MEDS: 0.9% Normal Saline 1,000 ML 999 ML IV (04:14)
[2018-07-12] MEDS: Insulin Lispro 100 UNIT/ML INSULN.PEN 10 UNIT SC (04:14)
[2018-07-12 04:56] LABS: Bedside Glucose 315 mg/dL (70-110)
--- NOTE | 2018-07-12 05:03 | ED.RN ---
md aware that the iv in both antecubitals have nfiltrate,attempt to place iv in r hand and unsuccessful.per dr malathi forman to eep iv out.bloos sugar 315.
[2018-07-12] MEDS: Ondansetron ODT 4 MG Tablet PO ×2 (05:20→06:52)
[2018-07-12 05:21] LABS: Bedside Glucose 266 mg/dL (70-110)
[2018-07-12] MEDS: traMADol 50 MG Tablet 100 MG PO (06:00)
[2018-07-12 06:02] VITALS: BP 157/101; PULSE 93; RESP 16; O2SAT 98
--- NOTE | 2018-07-12 06:34 | ED.DEP ---
ED Disposition - Plan for ED Patient: Disposition: Home or Assisted Living Chief Complaint: General Illness Diagnosis: Hyperglycemia, Gastroenteritis Instructions: ED Hyperglycemia Diabetic, ED Nausea Vomiting Prescriptions: Ondansetron [Zofran Odt] 4 mg PO Q8H PRN PRN #10 tablet PRN Reason: Nausea Potassium Chloride [K-Dur] 20 meq PO BID #8 tablet Referrals: Timothy Fisher Chi, MD [Primary Care Provider] - Tay Ramirez MD [STAFF PHYSICIAN] - As soon as possible
[2018-07-12] MEDS: traMADol 50 MG Tablet PO (06:51)
[2018-07-12 06:53] VITALS: BP 161/67; PULSE 91; RESP 20; O2SAT 97
== END 2018-07-12 06:54 | disposition home or self-care (01) ==
PROVIDERS: Emergency Provider Emergency Medicine; Family Provider Family Medicine Geriatric Medicine; PCP Family Medicine Geriatric Medicine
DX: R10.30 Lower abdominal pain, unspecified (principal); G89.29 Other chronic pain; E87.6 Hypokalemia; R11.2 Nausea with vomiting, unspecified; E11.65 Type 2 diabetes mellitus with hyperglycemia; I10 Essential (primary) hypertension; E78.00 Pure hypercholesterolemia, unspecified; Z87.891 Personal history of nicotine dependence; Z79.4 Long term (current) use of insulin; Z79.899 Other long term (current) drug therapy
CPT/HCPCS: 80048; 81001; 82962; 85025; 96361; 96372; 96374; 99285; J7030; A4216

== ENCOUNTER 2018-08-18 22:07 | Emergency (ER) | payer MEDICAID, SELFPAY ==
[2018-08-18 22:08] VITALS: BP 138/90; PULSE 99; RESP 16; TEMP 36.4; O2SAT 98; BMI 18.4
--- NOTE | 2018-08-18 23:26 | ED.VIS.GEN ---
History of Present Illness Chief Complaint: Fall Informant: Patient Onset: Today - JPTA Context: Sudden Onset - fell onto tailbone while trying to get out of bathtub Timing: Continuous Quality: sore/ache Location: tailbone and low back, more to right Current Severity: Severe Maximum Severity: Severe Worsened by: sitting, moving Relieved by: remaining still Associated Symptoms: feeling weak all over x 3-4 weeks. watery diarrhea x 3 days or so. Narrative: No lightheadedness, chest discomfort, cough, shortness of breath, headache, or other illnesses. States he is not sure if he slipped getting out of the tub or if he fell because he was weak. Asking for something for pain. No injury to his extremities or his head. - Past Medical History (1) Chronic back pain Status: Chronic (2) Diabetes mellitus type 2 Status: Chronic (3) Hypertension Status: Chronic Past Medical History - Allergies and Home Meds Allergies/Adverse Reactions: Allergies morphine Allergy (Verified 08/18/18 22:11) headaches pt states gets very bad headaches from morphine fentanyl Adverse Reaction (Verified 08/18/18 22:11) Pt didn't like how it made him feel PT STATES HE DOES NOT LIKE HOW IT MAKES HIM FEEL. ketorolac [From Toradol] Adverse Reaction (Verified 08/18/18 22:11) Other Primary Care Physician: Guido Miller MD [Primary Care Provider] - Surgical History: appendectomy Smoking Status: Never smoker - Family History Maternal Family History: Family History (Last Updated 08/18/18 @ 13:06 by Ana Mc) Father Diabetes Mother Diabetes Family History: Reports: No pertinent history, - - No diabetes Paternal Family History: Family History (Last Updated 08/18/18 @ 13:06 by Ana Mc) Father Diabetes Mother Diabetes Family History: Reports: No pertinent history Review of Systems General: Reports: Malaise. Denies: Chills, Fever, Sweats Eyes: Denies: Visual changes - bilaterally, Diplopia ENT: Denies: Bilateral ear pain, Rhinorrhea, Sore throat Cardiovascular: Denies: Chest pain, Palpitations Respiratory: Denies: Dyspnea, Cough, Dyspnea on exertion Gastrointestinal: Reports: Abdominal pain - chronically sore all over, Diarrhea. Denies: Nausea, Vomiting, Melena, Hematochezia Genitourinary: Denies: Dysuria, Hematuria, Frequency Musculoskeletal: Reports: Back pain. Denies: Neck pain, Swelling, Extremity Pain Skin: Denies: Rash, Wounds Neurological: Denies: Headache, Weakness, Numbness Physical Exam Vital Signs/Narrative: Vital Signs Temp Pulse Resp BP Pulse Ox 08/18/18 22:08 97.5 F L 99 16 138/90 H 98 Inital Vital Signs reviewed: Yes General: Well nourished, Well developed Head: Normocephalic, Atraumatic. Negative for: Trauma Eyes: Perrl, EOMI. Negative for: Scleral icterus ENT: Moist mucous membranes, No rhinorrhea Neck: Supple - FROM. no meningismus., Nontender Cardiovascular: Regular rate, Regular rhythm, No murmurs Respiratory: No distress, CTA bilaterally, Chest nontender Abdomen: Soft, Nontender, Nondistended, Normal bowel sounds Back: Normal Inspection, Spinal tenderness - nonfocal lumbosacral, also tender throughout right paraspinal musculature, and at coccyx which is w/o crepitance or BRBPR.. Negative for: CVA tenderness Extremities: Nontender, No edema, - - FROM throughout all joints of all 4 ext's w/o pain, including hips. Skin: Normal color, No rash, No Trauma Neurological: Alert, Oriented x3, Cranial nerves II-XII grossly intact, Normal Strength, Normal Sensation Psychological: Normal affect Diagnostic/Tx/Re-eval Impressions Lumbar Spine X-Ray 08/18/18 23:45 IMPRESSION: There is NO fracture or malalignment. There are degenerative changes as described. Electronically Signed: David Wright MD at 1:04 EDT , Service support , Sacrum and Coccyx X-Ray 08/18/18 23:45 IMPRESSION: Normal x-rays of the sacrum and coccyx. Electronically Signed: David Wright MD at 1:05 EDT , Service support , 08/18/18 23:45 Lumbar Spine 2 or 3 Views [RAD] Stat Sacrum-Coccyx min 2 Views [RAD] Stat Laboratory Results 08/18/18 08/18/18 23:35 23:35 WBC 5.8 RBC 4.32 L Hgb 14.2 Hct 38.2 L MCV 88.4 MCH 32.9 H MCHC 37.2 H RDW 11.8 RDW Differential 37.5 Plt Count 151 MPV 10.3 Immature Gran % (Auto) 0.700 Neut % (Auto) 52.6 Lymph % (Auto) 33.0 Clay % (Auto) 11.8 H Eos % (Auto) 1.4 Baso % (Auto) 0.5 Absolute Neuts (auto) 3.0 Absolute Lymphs (auto) 1.90 Total Counted Not Reportable Sodium 131 L Potassium 4.3 Chloride 94 L Carbon Dioxide 32.0 Anion Gap 5 BUN 18 Creatinine 1.03 Estim Creat Clear Calc 75.35 Est GFR (MDRD) Af Amer 97 Est GFR (MDRD) Non-Af 81 BUN/Creatinine Ratio 17.5 Glucose 387 H Calcium 9.4 - Medical Decision Making Patient feels better after a couple [place] and some IV fluids. He received about 400 cc before his IV blew. His labs are unremarkable except for hyperglycemia in the 340s, so we did not place a new IV and he was given a dose of SC insulin to help get his sugar down. Advised to follow-up. ED Disposition - Plan for ED Patient: Disposition: Home or Assisted Living Chief Complaint: Fall Diagnosis: Hyperglycemia due to type 2 diabetes mellitus, Contusion of sacrum, Generalized weakness, Acute diarrhea Instructions: ED Mechanical Fall, ED Contusion Back Referrals: Guido Miller MD [Primary Care Provider] - 3-5 Days if not improving
--- NOTE | 2018-08-18 23:31 | ED.DCSUM_ITS ---
History of Present Illness Chief Complaint: Fall Informant: Patient Onset: Today - JPTA Context: Sudden Onset - fell onto tailbone while trying to get out of bathtub Timing: Continuous Quality: sore/ache Location: tailbone and low back, more to right Current Severity: Severe Maximum Severity: Severe Worsened by: sitting, moving Relieved by: remaining still Associated Symptoms: feeling weak all over x 3-4 weeks. watery diarrhea x 3 days or so. Narrative: No lightheadedness, chest discomfort, cough, shortness of breath, headache, or other illnesses. States he is not sure if he slipped getting out of the tub or if he fell because he was weak. Asking for something for pain. No injury to his extremities or his head. - Past Medical History (1) Chronic back pain Status: Chronic (2) Diabetes mellitus type 2 Status: Chronic (3) Hypertension Status: Chronic Past Medical History - Allergies and Home Meds Allergies/Adverse Reactions: Allergies morphine Allergy (Verified 08/18/18 22:11) headaches pt states gets very bad headaches from morphine fentanyl Adverse Reaction (Verified 08/18/18 22:11) Pt didn't like how it made him feel PT STATES HE DOES NOT LIKE HOW IT MAKES HIM FEEL. ketorolac [From Toradol] Adverse Reaction (Verified 08/18/18 22:11) Other Primary Care Physician: Guido Miller MD [Primary Care Provider] - Surgical History: appendectomy Smoking Status: Never smoker - Family History Maternal Family History: Family History (Last Updated 08/18/18 @ 13:06 by Ana Mc) Father Diabetes Mother Diabetes Family History: Reports: No pertinent history, - - No diabetes Paternal Family History: Family History (Last Updated 08/18/18 @ 13:06 by Ana Mc) Father Diabetes Mother Diabetes Family History: Reports: No pertinent history Review of Systems General: Reports: Malaise. Denies: Chills, Fever, Sweats Eyes: Denies: Visual changes - bilaterally, Diplopia ENT: Denies: Bilateral ear pain, Rhinorrhea, Sore throat Cardiovascular: Denies: Chest pain, Palpitations Respiratory: Denies: Dyspnea, Cough, Dyspnea on exertion Gastrointestinal: Reports: Abdominal pain - chronically sore all over, Diarrhea. Denies: Nausea, Vomiting, Melena, Hematochezia Genitourinary: Denies: Dysuria, Hematuria, Frequency Musculoskeletal: Reports: Back pain. Denies: Neck pain, Swelling, Extremity Pain Skin: Denies: Rash, Wounds Neurological: Denies: Headache, Weakness, Numbness Physical Exam Vital Signs/Narrative: Vital Signs Temp Pulse Resp BP Pulse Ox 08/18/18 22:08 97.5 F L 99 16 138/90 H 98 Inital Vital Signs reviewed: Yes General: Well nourished, Well developed Head: Normocephalic, Atraumatic. Negative for: Trauma Eyes: Perrl, EOMI. Negative for: Scleral icterus ENT: Moist mucous membranes, No rhinorrhea Neck: Supple - FROM. no meningismus., Nontender Cardiovascular: Regular rate, Regular rhythm, No murmurs Respiratory: No distress, CTA bilaterally, Chest nontender Abdomen: Soft, Nontender, Nondistended, Normal bowel sounds Back: Normal Inspection, Spinal tenderness - nonfocal lumbosacral, also tender throughout right paraspinal musculature, and at coccyx which is w/o crepitance or BRBPR.. Negative for: CVA tenderness Extremities: Nontender, No edema, - - FROM throughout all joints of all 4 ext's w/o pain, including hips. Skin: Normal color, No rash, No Trauma Neurological: Alert, Oriented x3, Cranial nerves II-XII grossly intact, Normal Strength, Normal Sensation Psychological: Normal affect Diagnostic/Tx/Re-eval Impressions Lumbar Spine X-Ray 08/18/18 23:45 IMPRESSION: There is NO fracture or malalignment. There are degenerative changes as described. Electronically Signed: David Wright MD at 1:04 EDT , Service support , Sacrum and Coccyx X-Ray 08/18/18 23:45 IMPRESSION: Normal x-rays of the sacrum and coccyx. Electronically Signed: David Wright MD at 1:05 EDT , Service support , 08/18/18 23:45 Lumbar Spine 2 or 3 Views [RAD] Stat Sacrum-Coccyx min 2 Views [RAD] Stat Laboratory Results 08/18/18 08/18/18 23:35 23:35 WBC 5.8 RBC 4.32 L Hgb 14.2 Hct 38.2 L MCV 88.4 MCH 32.9 H MCHC 37.2 H RDW 11.8 RDW Differential 37.5 Plt Count 151 MPV 10.3 Immature Gran % (Auto) 0.700 Neut % (Auto) 52.6 Lymph % (Auto) 33.0 [place] % (Auto) 11.8 H Eos % (Auto) 1.4 Baso % (Auto) 0.5 Absolute Neuts (auto) 3.0 Absolute Lymphs (auto) 1.90 Total Counted Not Reportable Sodium 131 L Potassium 4.3 Chloride 94 L Carbon Dioxide 32.0 Anion Gap 5 BUN 18 Creatinine 1.03 Estim Creat Clear Calc 75.35 Est GFR (MDRD) Af Amer 97 Est GFR (MDRD) Non-Af 81 BUN/Creatinine Ratio 17.5 Glucose 387 H Calcium 9.4 - Medical Decision Making Patient feels better after a couple [place] and some IV fluids. He received about 400 cc before his IV blew. His labs are unremarkable except for hyperglycemia in the 340s, so we did not place a new IV and he was given a dose of SC insulin to help get his sugar down. Advised to follow-up. ED Disposition - Plan for ED Patient: Disposition: Home or Assisted Living Chief Complaint: Fall Diagnosis: Hyperglycemia due to type 2 diabetes mellitus, Contusion of sacrum, Generalized weakness, Acute diarrhea Instructions: ED Mechanical Fall, ED Contusion Back Referrals: Guido Miller MD [Primary Care Provider] - 3-5 Days if not improving
--- NOTE | 2018-08-18 23:45 | RAD_ITS ---
STUDY: X-RAY - LUMBAR SPINE REASON FOR EXAM: Male, 53 years old. Back pain TECHNIQUE: 3 view(s) of the lumbar spine were obtained. COMPARISON: None FINDINGS: Normal lumbar lordosis. There is no substantial scoliosis. There is a normal alignment of the vertebrae. Normal vertebral bodies and endplates. There is degenerative loss of disc height at L5-S1. There is bilateral facet hypertrophy at L4-5 and L5-S1. There is bilateral foraminal stenosis at L5-S1. The soft tissue structures are unremarkable. RAD/Lumbar Spine 2 or 3 Views IMPRESSION: There is NO fracture or malalignment. There are degenerative changes as described. Electronically Signed: David Wright MD at 1:04 EDT , Service support ,
--- NOTE | 2018-08-18 23:45 | RAD_ITS ---
STUDY: X-RAY - SACRUM/COCCYX REASON FOR EXAM: Male, 53 years old. Pain TECHNIQUE: 3 view(s) of the sacrum and coccyx were obtained. COMPARISON: None. FINDINGS: Normal bilateral sacroiliac joints. Normal visualized sacral ala and fused sacral bodies. Normal sacrococcygeal junction with a normal angulation. Normal coccygeal segments. The presacral soft tissue structures are unremarkable. RAD/Sacrum-Coccyx min 2 Views IMPRESSION: Normal x-rays of the sacrum and coccyx. Electronically Signed: David Wright MD at 1:05 EDT , Service support ,
[2018-08-19] MEDS: 0.9% Normal Saline 1,000 ML 999 ML IV (00:01)
[2018-08-19] MEDS: HYDROcodone Bitartrate/Apap 5/325 Tablet PO (00:01)
[2018-08-19 00:13] LABS: Anion Gap 5 (5-15); BUN 18 mg/dL (7-18); BUN/Creat Ratio 17.5 RATIO (10-20); Calcium,Total 9.4 mg/dL (8.5-10.1); Chloride 94 mmol/L (98-107); Creatinine, Serum 1.03 mg/dL (0.70-1.30); EST Glomerular Filtration Rate 81 mL/min (>60); Est Glom Filt Rate - Afr Amer 97 mL/min (>60); Estimated Creatinine Clearance 75.35 ml/min; Glucose 387 mg/dL (74-106); Potassium 4.3 mmol/L (3.5-5.1); Sodium Level 131 mmol/L (136-145)
[2018-08-19 00:44] LABS: Basophil# 0.03 X10^3/uL; Basophil% 0.5 % (0-1); Eosinophil# 0.08 X10^3/uL; Eosinophils% 1.4 % (0-5); Hematocrit 38.2 % (40-54); Mean Corpuscular Volume 88.4 fL (80-94); Mean Platelet Vol. 10.3 fl (6.2-12.0); Monocyte# 0.68 X10^3/uL; Monocyte% 11.8 % (0-10); Neutrophil # 3.02 X10^3/uL (2.7-7.7); Neutrophil % 52.6 % (47-70); Platelet Count 151 K/mm3 (150-450); RBC Distribution Width CV 11.8 % (11.6-14.6); RBC Distribution Width SD 37.5 fl (35.1-43.9); Red Blood Count 4.32 M/mm3 (4.6-6.2); White Blood Count 5.8 K/mm3 (4.4-11.0)
[2018-08-19 00:45] LABS: Hemoglobin 14.2 g/dl (13.0-16.5)
[2018-08-19 00:47] LABS: Mean Corp Hgb Conc 37.2 g/gl (32-36); Mean Corpuscular Hgb 32.9 pg (27.0-32.0); POSITIVE COUNT NO; POSITIVE DIFFERENTIAL NO; POSITIVE MORPHOLOGY NO
[2018-08-19 01:20] VITALS: BP 125/68; PULSE 78; RESP 18; O2SAT 98
[2018-08-19] MEDS: Insulin Lispro 100 UNIT/ML INSULN.PEN 10 UNIT SC (02:07)
== END 2018-08-19 02:20 | disposition home or self-care (01) ==
PROVIDERS: Emergency Provider Emergency Medicine; Family Provider Internal Medicine; PCP Internal Medicine
DX: S30.0XXA Contusion of lower back and pelvis, initial encounter (principal); R53.1 Weakness; R19.7 Diarrhea, unspecified; E11.65 Type 2 diabetes mellitus with hyperglycemia; G89.29 Other chronic pain; M54.9 Dorsalgia, unspecified; I10 Essential (primary) hypertension; Z79.4 Long term (current) use of insulin; Z79.899 Other long term (current) drug therapy; W18.2XXA Fall in (into) shower or empty bathtub, initial encounter; Y93.E1 Activity, personal bathing and showering; Y92.002 Bathroom of unspecified non-institutional (private) residence as the place of occurrence of the external cause; Y99.8 Other external cause status
CPT/HCPCS: 72100; 72220; 80048; 85025; 96360; 96361; 99285; J7030; A4216

== ENCOUNTER 2018-09-29 22:15 | Emergency (ER) | payer MEDICAID, SELFPAY ==
[2018-09-20 14:08] VITALS: BMI 19.6
[2018-09-29 22:16] VITALS: BP 143/99; PULSE 99; RESP 16; TEMP 37.1; O2SAT 100; BMI 19.2
--- NOTE | 2018-09-29 22:39 | RAD_ITS ---
STUDY: X-RAY CHEST REASON FOR EXAM: Male, 53 years old. General illness. TECHNIQUE: Portable chest. COMPARISON: None. FINDINGS: The lungs are clear and expanded. There is no demonstrated pleural abnormality. Normal size heart. Normal mediastinum and manuel. Normal visualized pulmonary arteries. Normal visualized aortic arch and descending thoracic aorta. Normal visualized thoracic spine. Normal visualized ribs, clavicles, and shoulders. There is no demonstrated abnormality of the visualized soft tissue structures of the upper abdomen. RAD/Chest 1 View (Portable) IMPRESSION: Normal x-ray examination of the chest. Electronically Signed: Gail Choi MD at 23:45 EST Tel , Service support ,
--- NOTE | 2018-09-29 22:40 | EKG12_ITS ---
Test Reason : Blood Pressure : / mmHG Vent. Rate : 088 BPM Atrial Rate : 088 BPM P-R Int : 160 ms QRS Dur : 084 ms QT Int : 346 ms P-R-T Axes : 074 008 076 degrees QTc Int : 418 ms Normal sinus rhythm Septal infarct , age undetermined Abnormal ECG Confirmed by ROSEANNA WILKES, BARRIE ([id number]), news videotape editor MARISELA HEBERT ([id number]) on 10/03/2018 2:51:41 PM Referred By: RACHEL Confirmed By:BARRIE CONDON MD
--- NOTE | 2018-09-29 22:41 | RAD_ITS ---
STUDY: X-RAY - BILATERAL HIPS WITHOUT PELVIS REASON FOR EXAM: Male, 53 years old. Status post fall. TECHNIQUE: 2 views of the right hip, and 2 views of the left hip were obtained. COMPARISON: None. FINDINGS: There is no fracture or dislocation. Left hip: There is lateral acetabular spurring. The hip joint is otherwise well-maintained. There is mild spurring at the superior margin of the femoral head-neck junction. In the appropriate clinical setting, this may be associated with impingement. Right hip: Right hip joint is well-maintained. There is mild spurring at the superior margin of the femoral head-neck junction. In the appropriate clinical setting, this may be associated with impingement. Soft tissues and bony structures are otherwise unremarkable. RAD/Hips B/L min 2 views w/ Pelvis IMPRESSION: No acute process. Degenerative changes of the hips are detailed above. Electronically Signed: Gail Choi MD at 23:47 EST Tel , Service support ,
--- NOTE | 2018-09-29 22:41 | RAD_ITS ---
STUDY: X-RAY - LUMBAR SPINE REASON FOR EXAM: Male, 53 years old. Status post fall. TECHNIQUE: 3 view(s) of the lumbar spine were obtained. COMPARISON: 08/18/2018. FINDINGS: There are 5 lumbar type vertebral bodies. Normal lumbar lordosis. There is no substantial scoliosis. There is no fracture. Vertebral body heights are well-maintained. There is 5 mm retrolisthesis at L4-5. Alignment is otherwise normal. There is moderate narrowing of the L5-S1 disc space with vacuum phenomenon. Anterior and mild posterior spurring is noted. Remaining disc spaces are well-maintained. The soft tissue structures are unremarkable. RAD/Lumbar Spine 2 or 3 Views IMPRESSION: No evidence of fracture. Mild L4-5 retrolisthesis. Degenerative changes at L5-S1. Electronically Signed: Gail Choi MD at 23:49 EST Tel , Service support ,
--- NOTE | 2018-09-29 22:42 | ED.VISSUMM ---
- ER Visit Summary Date of Service: 09/29/18 Chief Complaint: Generalized weakness and fall History of Present Illness: The patient is a 53 M who presents for 1 week of progressively worsening generalized weakness, now with a fall prior to presentation. Patient states he was attempting to get out of his bathtub and he was too weak to make it. He fell, landing on his right hip. He is complaining of lower back pain, right hip pain, and left inner thigh pain. Patient uses a cane at baseline ambulate and states he was able to scoot to a chair. He denies hitting his head or any neck pain. No chest pain or shortness of breath. No loss of bowel or bladder control. Patient has history of chronic back pain secondary to spinal stenosis and chronic abdominal pain. He is now a patient of Dr. Guzman for pain management. Patient states his blood sugar when checked by EMS was around 300, which he states is good for him and he normally has poor control. Also complains of peripheral neuropathy which increases his frequency of falls. Physical Examination: Vital signs: afebrile, hemodynamically stable, no hypoxia on room air General: thin, well developed, in no distress, laying left lateral recumbent in bed with knees drawn up to chest Skin: warm, dry, no rash, no pallor, no lacerations, abrasions or other soft tissue injuries noted HEENT: normocephalic and atraumatic; PERRL, EOMI, moist mucous membranes, no maxillofacial trauma Cardiovascular: regular rate and rhythm without murmurs, no peripheral edema, 2+ pulses all distal extremities Respiratory: No increased work of breathing, lungs are clear to auscultation bilaterally, no rales, rhonchi or wheezing Abdominal: Abdomen is soft, diffusely tender with normoactive bowel sounds, no guarding or rebound, no rigidity, no masses Spine: No midline tenderness, deformities or step-offs to the cervical or thoracic spine, neck is supple with full active range of motion, diffuse tenderness to palpation of the lumbar spine and paraspinal musculature without any step-offs, point tenderness, or deformities, straight leg raise negative bilaterally MSK: Moves all extremities, no deformities, normal and symmetric strength, no instability to the pelvis, full active and passive flexion and internal/external rotation of the bilateral hips, tenderness to palpation of the musculature of the left inner thigh without any noted swelling, deformities, induration, abrasion or other injury Neuro: Awake and alert, oriented ?4. No facial droop, sensation and motor function intact and symmetric Test Results: Abnormal Lab Results 09/29/18 09/29/18 09/29/18 22:53 22:53 23:06 WBC 5.0 RBC 3.89 L Hgb 12.8 L Hct 35.3 L MCV 90.7 MCH 32.9 H MCHC 36.3 H RDW 11.5 L RDW Differential 37.6 Plt Count 140 L MPV 10.5 Immature Gran % (Auto) 0.800 Neut % (Auto) 42.0 L Lymph % (Auto) 43.1 H Jay % (Auto) 11.5 H Eos % (Auto) 2.0 Baso % (Auto) 0.6 Absolute Neuts (auto) 2.1 Absolute Lymphs (auto) 2.14 Total Counted Not Reportable Sodium 132 L Potassium 4.1 Chloride 97 L Carbon Dioxide 28.0 Anion Gap 7 BUN 10 Creatinine 0.85 Estim Creat Clear Calc 97.83 Est GFR (MDRD) Af Amer 122 Est GFR (MDRD) Non-Af 101 BUN/Creatinine Ratio 11.8 Glucose 432 H Calcium 8.2 L Total Bilirubin 0.50 AST 77 H ALT 138 H Alkaline Phosphatase 69 Troponin I 0.033 Total Protein 7.8 Albumin 3.1 L Globulin 4.7 H Albumin/Globulin Ratio 0.7 L POC Glucose 400 H Clinical Impression(s) from Imaging Studies Chest X-Ray 09/29/18 22:39 IMPRESSION: Normal x-ray examination of the chest. Electronically Signed: Gail Choi MD at 23:45 EST Tel , Service support , Hip/Pelvis X-Ray 09/29/18 22:41 IMPRESSION: No acute process. Degenerative changes of the hips are detailed above. Electronically Signed: Gail Choi MD at 23:47 EST Tel , Service support , Lumbar Spine X-Ray 09/29/18 22:41 IMPRESSION: No evidence of fracture. Mild L4-5 retrolisthesis. Degenerative changes at L5-S1. Electronically Signed: Gail Choi MD at 23:49 EST Tel , Service support , Medications Given Discontinued Medications Acetaminophen (Tylenol) 1,000 mg PO X1 ONE Stop: 09/29/18 22:40 Last Admin: 09/29/18 23:06 Dose: 1,000 mg Sodium Chloride () 1,000 mls @ 1,000 mls/hr IV .Q1H ONE Stop: 09/29/18 23:38 Last Admin: 09/29/18 22:55 Dose: 1,000 mls/hr Ondansetron HCl (Zofran) 4 mg IV X1 ONE Stop: 09/29/18 23:02 Last Admin: 09/29/18 23:05 Dose: 4 mg Emergency Department Course and Treatment: Patient presents with generalized weakness and has a history of poorly controlled diabetes. Workup was performed to look for underlying cause of worsening weakness. Patient was given IV fluids, Zofran for nausea and Tylenol for pain. Because of his history of falling in the tub, I did have a discussion with him about home safety, as this is not the first time he has come in because of falling while trying to get out of the bathtub. We discussed safety measures, and he states he does have handles located around the tub to help him. Because he is complaining of back pain, right hip pain and left inner thigh pain from landing on his right hip, x-ray was performed of the lumbar spine and the pelvis and bilateral hips. No acute bony abnormality such as fractures or dislocations were noted. Patient does have chronic degenerative changes on x-rays. Labs showed mild transaminitis consistent with patient's prior hepatic function. Glucose elevated at 432. Discussed treatment of patient's blood sugar, but he states he has not eaten and has to eat when he gets home anyway, thus he declined any treatment of his blood sugar and states he will take his insulin when he gets home. Patient had no hyperkalemia. No significant electrolyte derangements. No significant leukocytosis or anemia. Troponin within normal limits. EKG showed no signs of ischemia or ectopy that might be related to patient's weakness. No findings on patient's workup that would require admission or further testing. Patient states he did have some improvement of his pain with the Tylenol, but was still having hip pain and back pain from his fall. Patient has no red flag symptoms that would be concerning for spinal cord impingement or serious back injury. He was given oxycodone prior to discharge for further treatment of his fall?related pain. Patient has an appointment in 4 days with his primary care doctor and will keep this appointment. He was discharged home well-appearing and in no distress. Patient was observed ambulating with his cane department. Treatment Plan: [] Disposition: [] Impression: Left inner thigh strain, right hip contusion, acute on chronic lumbar back pain, generalized weakness, hyperglycemia This note was generated with [employer] dictation software. It may contain incorrect words, spelling, and punctuation that were not noted in review of the chart prior to signing ED Disposition - Plan for ED Patient: Disposition: Home or Assisted Living Chief Complaint: General Illness Instructions: ED Contusion Soft Tissue, ED Hyperglycemia Diabetic, ED Weakness UKO Referrals: Guido Miller MD [Primary Care Provider] - Keep Callum appointment Additional Instructions: Keep your appointment on October 04 with your doctor as already scheduled. Discuss your weakness and your chronic abdominal pain with your doctor at this time. Use [id number] pain medication or your prescribed pain regimen for any pain related to your bruises from the fall tonight. If you have any worsening of your condition or any new concerning symptoms, please return to the emergency department immediately for another evaluation.
--- NOTE | 2018-09-29 22:45 | ED.DCSUM_ITS ---
- ER Visit Summary Date of Service: 09/29/18 Chief Complaint: Generalized weakness and fall History of Present Illness: The patient is a 53 M who presents for 1 week of progressively worsening generalized weakness, now with a fall prior to presentation. Patient states he was attempting to get out of his bathtub and he was too weak to make it. He fell, landing on his right hip. He is complaining of lower back pain, right hip pain, and left inner thigh pain. Patient uses a cane at baseline ambulate and states he was able to scoot to a chair. He denies hitting his head or any neck pain. No chest pain or shortness of breath. No loss of bowel or bladder control. Patient has history of chronic back pain secondary to spinal stenosis and chronic abdominal pain. He is now a patient of Dr. Guzman for pain management. Patient states his blood sugar when checked by EMS was around 300, which he states is good for him and he normally has poor control. Also complains of peripheral neuropathy which increases his frequency of falls. Physical Examination: Vital signs: afebrile, hemodynamically stable, no hypoxia on room air General: thin, well developed, in no distress, laying left lateral recumbent in bed with knees drawn up to chest Skin: warm, dry, no rash, no pallor, no lacerations, abrasions or other soft tissue injuries noted HEENT: normocephalic and atraumatic; PERRL, EOMI, moist mucous membranes, no maxillofacial trauma Cardiovascular: regular rate and rhythm without murmurs, no peripheral edema, 2+ pulses all distal extremities Respiratory: No increased work of breathing, lungs are clear to auscultation bilaterally, no rales, rhonchi or wheezing Abdominal: Abdomen is soft, diffusely tender with normoactive bowel sounds, no guarding or rebound, no rigidity, no masses Spine: No midline tenderness, deformities or step-offs to the cervical or thoracic spine, neck is supple with full active range of motion, diffuse tenderness to palpation of the lumbar spine and paraspinal musculature without any step-offs, point tenderness, or deformities, straight leg raise negative bilaterally MSK: Moves all extremities, no deformities, normal and symmetric strength, no instability to the pelvis, full active and passive flexion and internal/external rotation of the bilateral hips, tenderness to palpation of the musculature of the left inner thigh without any noted swelling, deformities, induration, abrasion or other injury Neuro: Awake and alert, oriented ?4. No facial droop, sensation and motor function intact and symmetric Test Results: Abnormal Lab Results 09/29/18 09/29/18 09/29/18 22:53 22:53 23:06 WBC 5.0 RBC 3.89 L Hgb 12.8 L Hct 35.3 L MCV 90.7 MCH 32.9 H MCHC 36.3 H RDW 11.5 L RDW Differential 37.6 Plt Count 140 L MPV 10.5 Immature Gran % (Auto) 0.800 Neut % (Auto) 42.0 L Lymph % (Auto) 43.1 H [place] % (Auto) 11.5 H Eos % (Auto) 2.0 Baso % (Auto) 0.6 Absolute Neuts (auto) 2.1 Absolute Lymphs (auto) 2.14 Total Counted Not Reportable Sodium 132 L Potassium 4.1 Chloride 97 L Carbon Dioxide 28.0 Anion Gap 7 BUN 10 Creatinine 0.85 Estim Creat Clear Calc 97.83 Est GFR (MDRD) Af Amer 122 Est GFR (MDRD) Non-Af 101 BUN/Creatinine Ratio 11.8 Glucose 432 H Calcium 8.2 L Total Bilirubin 0.50 AST 77 H ALT 138 H Alkaline Phosphatase 69 Troponin I 0.033 Total Protein 7.8 Albumin 3.1 L Globulin 4.7 H Albumin/Globulin Ratio 0.7 L POC Glucose 400 H Clinical Impression(s) from Imaging Studies Chest X-Ray 09/29/18 22:39 IMPRESSION: Normal x-ray examination of the chest. Electronically Signed: Gail Choi MD at 23:45 EST Tel , Service support , Hip/Pelvis X-Ray 09/29/18 22:41 IMPRESSION: No acute process. Degenerative changes of the hips are detailed above. Electronically Signed: Gail Choi MD at 23:47 EST Tel , Service support , Lumbar Spine X-Ray 09/29/18 22:41 IMPRESSION: No evidence of fracture. Mild L4-5 retrolisthesis. Degenerative changes at L5-S1. Electronically Signed: Gail Choi MD at 23:49 EST Tel , Service support , Medications Given Discontinued Medications Acetaminophen (Tylenol) 1,000 mg PO X1 ONE Stop: 09/29/18 22:40 Last Admin: 09/29/18 23:06 Dose: 1,000 mg Sodium Chloride () 1,000 mls @ 1,000 mls/hr IV .Q1H ONE Stop: 09/29/18 23:38 Last Admin: 09/29/18 22:55 Dose: 1,000 mls/hr Ondansetron HCl (Zofran) 4 mg IV X1 ONE Stop: 09/29/18 23:02 Last Admin: 09/29/18 23:05 Dose: 4 mg Emergency Department Course and Treatment: Patient presents with generalized weakness and has a history of poorly controlled diabetes. Workup was performed to look for underlying cause of worsening weakness. Patient was given IV fluids, Zofran for nausea and Tylenol for pain. Because of his history of falling in the tub, I did have a discussion with him about home safety, as this is not the first time he has come in because of falling while trying to get out of the bathtub. We discussed safety measures, and he states he does have handles located around the tub to help him. Because he is complaining of back pain, right hip pain and left inner thigh pain from landing on his right hip, x- ray was performed of the lumbar spine and the pelvis and bilateral hips. No acute bony abnormality such as fractures or dislocations were noted. Patient does have chronic degenerative changes on x-rays. Labs showed mild transaminitis consistent with patient's prior hepatic function. Glucose elevated at 432. Discussed treatment of patient's blood sugar, but he states he has not eaten and has to eat when he gets home anyway, thus he declined any treatment of his blood sugar and states he will take his insulin when he gets home. Patient had no hyperkalemia. No significant electrolyte derangements. No significant leukocytosis or anemia. Troponin within normal limits. EKG showed no signs of ischemia or ectopy that might be related to patient's weakness. No findings on patient's workup that would require admission or further testing. Patient states he did have some improvement of his pain with the Tylenol, but was still having hip pain and back pain from his fall. Patient has no red flag symptoms that would be concerning for spinal cord impingement or serious back injury. He was given oxycodone prior to discharge for further treatment of his fall?related pain. Patient has an appointment in 4 days with his primary care doctor and will keep this appointment. He was discharged home well-appearing and in no distress. Patient was observed ambulating with his cane department. Treatment Plan: [] Disposition: [] Impression: Left inner thigh strain, right hip contusion, acute on chronic lumbar back pain, generalized weakness, hyperglycemia This note was generated with [employer] dictation software. It may contain incorrect words, spelling, and punctuation that were not noted in review of the chart prior to signing ED Disposition - Plan for ED Patient: Disposition: Home or Assisted Living Chief Complaint: General Illness Instructions: ED Contusion Soft Tissue, ED Hyperglycemia Diabetic, ED Weakness [facility]O Referrals: Guido Miller MD [Primary Care Provider] - Keep Callum appointment Additional Instructions: Keep your appointment on October 04 with your doctor as already scheduled. Discuss your weakness and your chronic abdominal pain with your doctor at this time. Use [id number] pain medication or your prescribed pain regimen for any pain related to your bruises from the fall tonight. If you have any worsening of your condition or any new concerning symptoms, please return to the emergency department immediately for another evaluation.
[2018-09-29] MEDS: 0.9% Normal Saline 1,000 ML 1000 ML IV (22:55)
[2018-09-29] MEDS: Ondansetron 4 MG/2 ML Vial IV (23:05)
[2018-09-29 23:06] LABS: Absolute Lymphocyte Count 2.14 X10^3/ul (0.83-4.51); Absolute Neutrophil Count 2.1 X10^3/uL (2.0-7.7); Basophil# 0.03 X10^3/uL; Basophil% 0.6 % (0-1); Hematocrit 35.3 % (40-54); Hemoglobin 12.8 g/dl (13.0-16.5); Lymphocyte # 2.14 X10^3/ul (4.0); Lymphocyte % 43.1 % (19-41); Mean Corp Hgb Conc 36.3 g/gl (32-36); Mean Corpuscular Hgb 32.9 pg (27.0-32.0); Mean Corpuscular Volume 90.7 fL (80-94); Mean Platelet Vol. 10.5 fl (6.2-12.0); Monocyte# 0.57 X10^3/uL; Monocyte% 11.5 % (0-10); Neutrophil # 2.09 X10^3/uL (2.7-7.7); Platelet Count 140 K/mm3 (150-450); RBC Distribution Width CV 11.5 % (11.6-14.6); RBC Distribution Width SD 37.6 fl (35.1-43.9); Red Blood Count 3.89 M/mm3 (4.6-6.2)
[2018-09-29] MEDS: Acetaminophen 500 MG Tablet 1000 MG PO (23:06)
[2018-09-29 23:07] VITALS: BP 139/92; PULSE 83; RESP 16; O2SAT 100
[2018-09-29 23:08] LABS: POSITIVE COUNT NO; POSITIVE DIFFERENTIAL NO; POSITIVE MORPHOLOGY NO
[2018-09-29 23:11] LABS: Bedside Glucose 400 mg/dL (70-110)
[2018-09-29 23:21] LABS: ALB/GLOB Ratio 0.7 RATIO (0.9-2.4); AST(SGOT) 77 U/L (15-37); Alanine Aminotransfer ALT/SGPT 138 U/L (16-61); Albumin, Serum 3.1 g/dL (3.2-5.0); Alkaline Phosphatase 69 U/L (45-117); Anion Gap 7 (5-15); BUN 10 mg/dL (7-18); BUN/Creat Ratio 11.8 RATIO (10-20); Calcium,Total 8.2 mg/dL (8.5-10.1); Chloride 97 mmol/L (98-107); Creatinine, Serum 0.85 mg/dL (0.70-1.30); EST Glomerular Filtration Rate 101 mL/min (>60); Est Glom Filt Rate - Afr Amer 122 mL/min (>60); Estimated Creatinine Clearance 97.83 ml/min; Globulin 4.7 g/dL (2.2-4.2); Glucose 432 mg/dL (74-106); Potassium 4.1 mmol/L (3.5-5.1); Protein, Total 7.8 g/dL (6.4-8.2); Sodium Level 132 mmol/L (136-145)
--- NOTE | 2018-09-30 00:01 | ED.DEP ---
ED Disposition - Plan for ED Patient: Disposition: Home or Assisted Living Chief Complaint: General Illness Instructions: ED Weakness UKO, ED Hyperglycemia Diabetic, ED Contusion Soft Tissue Referrals: Guido Miller MD [Primary Care Provider] - Keep Callum appointment Additional Instructions: Keep your appointment on October 04 with your doctor as already scheduled. Discuss your weakness and your chronic abdominal pain with your doctor at this time. Use [id number] pain medication or your prescribed pain regimen for any pain related to your bruises from the fall tonight. If you have any worsening of your condition or any new concerning symptoms, please return to the emergency department immediately for another evaluation.
[2018-09-30 00:05] VITALS: BP 139/72; PULSE 81; RESP 16; O2SAT 98
[2018-09-30] MEDS: oxyCODONE 5 MG Tablet PO (00:06)
== END 2018-09-30 00:09 | disposition home or self-care (01) ==
PROVIDERS: Emergency Provider Emergency Medicine; Family Provider Internal Medicine; PCP Internal Medicine
DX: S70.01XA Contusion of right hip, initial encounter (principal); S76.919A Strain of unspecified muscles, fascia and tendons at thigh level, unspecified thigh, initial encounter; G89.29 Other chronic pain; M54.5 Low back pain; R53.1 Weakness; E11.65 Type 2 diabetes mellitus with hyperglycemia; G62.9 Polyneuropathy, unspecified; M48.00 Spinal stenosis, site unspecified; Z79.4 Long term (current) use of insulin; W17.89XA Other fall from one level to another, initial encounter; Y93.E1 Activity, personal bathing and showering; Y92.002 Bathroom of unspecified non-institutional (private) residence as the place of occurrence of the external cause; Y99.8 Other external cause status
CPT/HCPCS: 71045; 72100; 73521; 80053; 82962; 84484; 85025; 93005; 96361; 96374; 99285; J7030; A4216; J2405

== ENCOUNTER 2018-11-08 18:41 | Emergency (ER) | payer MEDICAID, SELFPAY ==
[2018-10-04 09:02] VITALS: BMI 19.2
[2018-11-08 18:41] VITALS: BP 118/86; PULSE 109; RESP 14; TEMP 37.3; O2SAT 99; BMI 19.8
--- NOTE | 2018-11-08 20:02 | ED.DCSUM_ITS ---
- ER Visit Summary Date of Service: 11/08/18 Chief Complaint: Back pain and abdominal pain History of Present Illness: The patient is a 53 M who presents with 2 complaints tonight. The first is right-sided back pain. He states he has a history of spinal stenosis and is not in pain management for this. He notes radiation into the right buttock and down the right leg. He denies any acute muscle weakness change in bowel or bladder control or sensory change. No fevers. No known trauma. He states that he is due for an MRI in about 1 week. He states that the pain has gotten to the point where he needs to use a cane now. However I am able to see prior ED visits where he is using a cane. His second issue tonight is abdominal pain. He has a history of chronic abdominal pain and has been seeing surgery for it. He states that he had gallstone pancreatitis and had a cholecystectomy last year. He notes for the past 2 days he has had diarrhea. He points to his umbilicus as the area of pain. It does not hurt to move. This is evidenced by the patient rapidly moving his hips from side to side. Physical Examination: Afebrile vital signs are stable Gen: Well-nourished well-developed Head: Normocephalic atraumatic Eyes: Perrl EOMI ENT: TMs clear no rhinorrhea moist mucous membranes Neck: Supple no lymphadenopathy no JVD nontender CVS: Regular rate rhythm no murmurs normal S1-S2 Respiratory: No distress clear to auscultation bilaterally chest nontender Abdomen: Soft nontender nondistended normal bowel sounds no masses Back: Right paraspinal lumbar tenderness to palpation Extremity: Nontender no edema Skin: Normal color no rash Neuro: alert orientated ?3 CN II-XII intact normal strength sensation reflexes cerebellar Psych: Normal affect normal mood Emergency Department Course and Treatment: Patient very focused on getting pain medication. He mentions that he is in pain no less than 20 times during the history and physical. He also request pain medicine no less than 5 times while I am in the room. Within 2 minutes of me leaving the room he got on his call light and requested pain medication from the nurse. I reviewed an oars report is not filled any narcotics since June. I ordered IV fluids Zofran and Bentyl and Tylenol. Patient now states he cannot have Bentyl and the only medication that will work for him is Dilaudid. The patient states that he is not getting the care he needs so he is leaving. Impression: 1. Acute on chronic abdominal pain 2. Acute on chronic back pain 3. ED elopement This note was generated with [employer] dictation software. It may contain incorrect words, spelling, and punctuation that were not noted in review of the chart prior to signing ED Disposition - Plan for ED Patient: Chief Complaint: Back Referrals: Guido Miller MD [Primary Care Provider] -
[2018-11-08] MEDS: Ondansetron 4 MG/2 ML Vial IV (20:12)
[2018-11-08] MEDS: 0.9% Normal Saline 1,000 ML 999 ML IV (20:13)
[2018-11-08 20:23] LABS: ALB/GLOB Ratio 0.7 RATIO (0.9-2.4); AST(SGOT) 77 U/L (15-37); Alanine Aminotransfer ALT/SGPT 135 U/L (16-61); Albumin, Serum 3.3 g/dL (3.2-5.0); Alkaline Phosphatase 75 U/L (45-117); Anion Gap 8 (5-15); BUN 15 mg/dL (7-18); BUN/Creat Ratio 15.9 RATIO (10-20); Calcium,Total 8.7 mg/dL (8.5-10.1); Chloride 98 mmol/L (98-107); Creatinine, Serum 0.94 mg/dL (0.70-1.30); EST Glomerular Filtration Rate 89 mL/min (>60); Est Glom Filt Rate - Afr Amer 108 mL/min (>60); Estimated Creatinine Clearance 88.47 ml/min; Globulin 4.8 g/dL (2.2-4.2); Glucose 475 mg/dL (74-106); Lipase 472 U/L (73-393); Potassium 4.1 mmol/L (3.5-5.1); Protein, Total 8.1 g/dL (6.4-8.2); Sodium Level 134 mmol/L (136-145)
--- NOTE | 2018-11-08 20:24 | ED.RN ---
notified Dr. Wagoner of [facility] [id number]
--- NOTE | 2018-11-08 20:34 | NURSING ---
PT REQUESTS DILAUDID FOR PAIN. DISCUSSED W/DR CARLIN WHO RECOMMENDED TYLENOL AT THIS TIME. PT REFUSED TYLENOL. STATES HE IS LEAVING AMA. PT ADVISED THAT GLUCOSE LEVEL IS ELEVATED, STATES HE IS LEAVING. ANGIO DC'D PER PT REQUEST.
[2018-11-08 20:35] LABS: Hematocrit 35.7 % (40-54); Mean Corp Hgb Conc 36.4 g/gl (32-36); Mean Corpuscular Hgb 32.7 pg (27.0-32.0); Mean Corpuscular Volume 89.9 fL (80-94); RBC Distribution Width CV 11.6 % (11.6-14.6); RBC Distribution Width SD 37.1 fl (35.1-43.9); White Blood Count 5.6 K/mm3 (4.4-11.0)
[2018-11-08 20:36] LABS: Absolute Lymphocyte Count 1.69 X10^3/ul (0.83-4.51); Absolute Neutrophil Count 3.1 X10^3/uL (2.0-7.7); Basophil# 0.02 X10^3/uL; Basophil% 0.4 % (0-1); Eosinophil# 0.09 X10^3/uL; Eosinophils% 1.6 % (0-5); Lymphocyte # 1.69 X10^3/ul (4.0); Mean Platelet Vol. 10.4 fl (6.2-12.0); Monocyte# 0.68 X10^3/uL; Monocyte% 12.1 % (0-10); Neutrophil # 3.11 X10^3/uL (2.7-7.7); Neutrophil % 55.2 % (47-70); POSITIVE COUNT NO; POSITIVE DIFFERENTIAL NO; POSITIVE MORPHOLOGY NO; Platelet Count 163 K/mm3 (150-450)
== END 2018-11-08 20:49 | disposition left against medical advice (07) ==
LOC: ED 20:16
PROVIDERS: Emergency Provider Emergency Medicine; Family Provider Internal Medicine; PCP Internal Medicine
DX: M54.5 Low back pain (principal); R10.9 Unspecified abdominal pain; G89.29 Other chronic pain; Z72.0 Tobacco use
CPT/HCPCS: 80053; 83690; 85025; 96374; 99284; J7030; A4216; J2405

== ENCOUNTER 2018-11-14 16:42 | Inpatient (IN) | payer MEDICAID, SELFPAY ==
[2018-11-14] VITALS (9 sets, daily range): BP systolic 115–141; BP diastolic 74–90; PULSE 80–105; RESP 15–18; TEMP 36.6–37.2; O2SAT 97–100; BMI 18.5; BMI 18.2
[2018-11-14] MEDS: 0.9% Normal Saline 1,000 ML 1000 ML IV (17:51)
[2018-11-14] MEDS: Ondansetron 4 MG/2 ML Vial IV (17:51)
--- NOTE | 2018-11-14 17:56 | ED.DCSUM_ITS ---
- ER Visit Summary Date of Service: 11/14/18 Chief Complaint: abdominal pain History of Present Illness: The patient is a 53 M with chronic back and abdominal pain who presents for 3 days of diarrhea and worsening abdominal pain. Pain is in the epigastric and periumbilical region. Patient was seen for the same complaint a few days ago. Patient has tried Tylenol without relief he has had diarrhea for 3 days and states he has not eaten anything for 3 days. Patient is currently seeing Dr. Guzman for pain management but does not have a regimen in place yet -- he states he has to get nerve tests first. Physical Examination: Vital signs: afebrile, normotensive, tachycardic, no hypoxia on room air General: well nourished, well developed, in no distress, appears uncomfortable Skin: warm, dry, no rash, no pallor HEENT: normocephalic and atraumatic; PERRL, EOMI, moist mucous membranes Cardiovascular: Tachycardic rate and rhythm without murmurs, no peripheral edema, 2+ pulses all distal extremities Respiratory: No increased work of breathing, lungs are clear to auscultation bilaterally, no rales, rhonchi or wheezing Abdominal: Abdomen is soft, diffusely tender with normoactive bowel sounds, no guarding or rebound, no masses MSK: Moves all extremities, no deformities, normal strength, great toenails are missing, with oozing blood on the right toenail Neuro: Awake and alert, oriented ?4. No facial droop, sensation and motor function intact and symmetric Test Results: Abnormal Lab Results 11/14/18 11/14/18 11/14/18 17:35 17:35 17:35 WBC 6.8 RBC 4.02 L Hgb 12.0 L Hct 35.9 L MCV 89.3 MCH 29.9 MCHC 33.4 RDW 12.2 RDW Differential 39.2 Plt Count 137 L MPV 11.1 Immature Gran % (Auto) 0.400 Neut % (Auto) 65.9 Lymph % (Auto) 23.0 [place] % (Auto) 9.4 Eos % (Auto) 1.2 Baso % (Auto) 0.1 Absolute Neuts (auto) 4.5 Absolute Lymphs (auto) 1.57 Total Counted Not Reportable Sodium 128 L Potassium 4.3 Chloride 95 L Carbon Dioxide 25.0 Anion Gap 8 BUN 22 H Creatinine 0.86 Estim Creat Clear Calc 90.57 Est GFR (MDRD) Af Amer 121 Est GFR (MDRD) Non-Af 100 BUN/Creatinine Ratio 25.7 H Glucose 535 H* Lactic Acid 1.4 Calcium 8.7 Total Bilirubin 0.50 AST 59 H ALT 115 H Alkaline Phosphatase 80 Total Protein 8.5 H Albumin 3.3 Globulin 5.2 H Albumin/Globulin Ratio 0.6 L Lipase 888 H Ethyl Alcohol 11/14/18 17:50 WBC RBC Hgb Hct MCV MCH MCHC RDW RDW Differential Plt Count MPV Immature Gran % (Auto) Neut % (Auto) Lymph % (Auto) [place] % (Auto) Eos % (Auto) Baso % (Auto) Absolute Neuts (auto) Absolute Lymphs (auto) Total Counted Sodium Potassium Chloride Carbon Dioxide Anion Gap BUN Creatinine Estim Creat Clear Calc Est GFR (MDRD) Af Amer Est GFR (MDRD) Non-Af BUN/Creatinine Ratio Glucose Lactic Acid Calcium Total Bilirubin AST ALT Alkaline Phosphatase Total Protein Albumin Globulin Albumin/Globulin Ratio Lipase Ethyl Alcohol < 3.0 Clinical Impression(s) from Imaging Studies Abdomen/Pelvis CT 11/14/18 18:26 IMPRESSION: Normal CT of the abdomen and pelvis. Electronically Signed: Gail Choi MD at 20:38 EST Tel , Service support , Medications Given Lactated Ringer's () 1,000 mls @ 999 mls/hr IV .Q1H1M JANKI Stop: 11/14/18 21:10 Last Admin: 11/14/18 20:31 Dose: 999 mls/hr Discontinued Medications Hydromorphone HCl (Dilaudid Inj) 0.5 mg IV X1 ONE Stop: 11/14/18 18:26 Last Admin: 11/14/18 18:36 Dose: 0.5 mg Sodium Chloride () 1,000 mls @ 1,000 mls/hr IV .Q1H ONE Stop: 11/14/18 18:36 Last Admin: 11/14/18 17:51 Dose: 1,000 mls/hr Insulin Human Lispro (Humalog Kwikpen (Bkc)) 15 unit SC X1 ONE Stop: 11/14/18 20:11 Last Admin: 11/14/18 20:31 Dose: 15 units Ondansetron HCl (Zofran) 4 mg IV X1 ONE Stop: 11/14/18 17:38 Last Admin: 11/14/18 17:51 Dose: 4 mg Emergency Department Course and Treatment: Patient was given IV fluids for hydration given history of diarrhea and decreased oral intake. Patient states he cannot have toradol, morphine, and he refuses fentanyl due to the overdose rate on the streets. Patient was given Zofran for nausea. Patient has significant tenderness on exam and was given Dilaudid for pain. Labs were performed, consistent with dehydration. Patient's lipase is elevated at 888, which is significantly increased since his last evaluation. His symptoms and lab work are consistent with acute pancreatitis. CT abdomen and pelvis was performed that did not show any acute process. Patient was given additional pain medication. His glucose was elevated at 535 without any labs concerning for DKA. Patient's glucose is consistently in the 400s or 500s when he comes into the emergency department. Patient was given subcutaneous insulin for treatment of hyperglycemia. He received additional fluids. Patient was discussed with the hospitalist for admission for further treatment of acute pancreatitis and hyperglycemia secondary to poor diabetes control. Treatment Plan: [] Disposition: [] Impression: Acute pancreatitis, hyperglycemia, dehydration, poor control of diabetes This note was generated with [employer] dictation software. It may contain incorrect words, spelling, and punctuation that were not noted in review of the chart prior to signing ED Disposition - Plan for ED Patient: Chief Complaint: Diarrhea Referrals: Guido Miller MD [Primary Care Provider] -
[2018-11-14 18:07] LABS: Lactic Acid 1.4 mmol/L (0.4-2.0)
[2018-11-14 18:14] LABS: ALB/GLOB Ratio 0.6 RATIO (0.9-2.4); AST(SGOT) 59 U/L (15-37); Alanine Aminotransfer ALT/SGPT 115 U/L (16-61); Albumin, Serum 3.3 g/dL (3.2-5.0); Alkaline Phosphatase 80 U/L (45-117); Anion Gap 8 (5-15); BUN 22 mg/dL (7-18); BUN/Creat Ratio 25.7 RATIO (10-20); Calcium,Total 8.7 mg/dL (8.5-10.1); Chloride 95 mmol/L (98-107); Creatinine, Serum 0.86 mg/dL (0.70-1.30); EST Glomerular Filtration Rate 100 mL/min (>60); Est Glom Filt Rate - Afr Amer 121 mL/min (>60); Estimated Creatinine Clearance 90.57 ml/min; Globulin 5.2 g/dL (2.2-4.2); Glucose 535 mg/dL (74-106); Lipase 888 U/L (73-393); Potassium 4.3 mmol/L (3.5-5.1); Protein, Total 8.5 g/dL (6.4-8.2); Sodium Level 128 mmol/L (136-145)
--- NOTE | 2018-11-14 18:15 | ED.RN ---
lab called to report glucose of [address] torres notified.
[2018-11-14 18:26] LABS: Absolute Lymphocyte Count 1.57 X10^3/ul (0.83-4.51); Absolute Neutrophil Count 4.5 X10^3/uL (2.0-7.7); Basophil# 0.01 X10^3/uL; Basophil% 0.1 % (0-1); Eosinophil# 0.08 X10^3/uL; Eosinophils% 1.2 % (0-5); Hematocrit 35.9 % (40-54); Lymphocyte # 1.57 X10^3/ul (4.0); Mean Corp Hgb Conc 33.4 g/gl (32-36); Mean Corpuscular Hgb 29.9 pg (27.0-32.0); Mean Corpuscular Volume 89.3 fL (80-94); Mean Platelet Vol. 11.1 fl (6.2-12.0); Monocyte# 0.64 X10^3/uL; Monocyte% 9.4 % (0-10); Neutrophil % 65.9 % (47-70); POSITIVE COUNT NO; POSITIVE DIFFERENTIAL NO; POSITIVE MORPHOLOGY NO; Platelet Count 137 K/mm3 (150-450); RBC Distribution Width CV 12.2 % (11.6-14.6); RBC Distribution Width SD 39.2 fl (35.1-43.9); Red Blood Count 4.02 M/mm3 (4.6-6.2); White Blood Count 6.8 K/mm3 (4.4-11.0)
--- NOTE | 2018-11-14 18:26 | CT_ITS ---
STUDY: CT ABDOMEN AND PELVIS WITH CONTRAST REASON FOR EXAM: Male, 53 years old. Left flank pain and diarrhea. RADIATION DOSAGE (If Supplied By Facility): CTDIvol = ( 10.24 ) mGy, DLP = ( 377.53 ) mGycm TECHNIQUE: Transaxial images were obtained from the dome of the diaphragm to the symphysis pubis without oral contrast. 80ML ml of Isovue 300 contrast was administered. Sagittal and coronal images were reconstructed. Individualized dose optimization techniques were used for this CT. COMPARISON: 05/31/2018. FINDINGS: Lung bases are clear. Visualized heart is normal. The liver is unremarkable. The gallbladder is surgically absent. The spleen and pancreas are unremarkable. The adrenal glands are normal. The kidneys are unremarkable. No stones or hydronephrosis. The aorta is normal in caliber. There is no free fluid, free air, or organized collection. No bowel obstruction or inflammatory change. Stool burden is moderate. Urinary bladder is unremarkable. Normal abdominal wall. Normal osseous structures. CT/Abdomen/Pelvis WITH Contrast IMPRESSION: Normal CT of the abdomen and pelvis. Electronically Signed: Gail Choi MD at 20:38 EST Tel , Service support ,
[2018-11-14] MEDS: HYDROmorphone 0.5 MG/0.5 ML SYRINGE IV ×2 (18:36→21:13)
[2018-11-14 18:45] LABS: Alcohol, Blood (Medical)-Serum < 3.0 mg/dL
[2018-11-14] MEDS: Insulin Lispro 100 UNIT/ML INSULN.PEN 15 UNIT SC (20:31)
[2018-11-14] MEDS: Lactated Ringers 1,000 ML 999 ML IV (20:31)
--- NOTE | 2018-11-14 21:05 | PCM.HP.STD ---
Problem List (1) Acute pancreatitis Status: Acute Qualifiers: Pancreatitis type: unspecified pancreatitis type Acute pancreatitis complication: unspecified Qualified Code(s): K85.90 - Acute pancreatitis without necrosis or infection, unspecified (2) HLD (hyperlipidemia) Status: Chronic Qualifiers: Hyperlipidemia type: pure hypercholesterolemia Qualified Code(s): E78.00 - Pure hypercholesterolemia, unspecified; E78.0 - Pure hypercholesterolemia (3) Hepatitis C antibody positive in blood Status: Chronic (4) Elevated liver enzymes Status: Chronic (5) Chronic back pain Status: Chronic Qualifiers: Back pain location: back pain in unspecified location Back pain laterality: unspecified Qualified Code(s): M54.9 - Dorsalgia, unspecified; G89.29 - Other chronic pain (6) Hypertension Status: Chronic Qualifiers: Hypertension type: essential hypertension Qualified Code(s): I10 - Essential (primary) hypertension (7) Diabetes mellitus type 2 Status: Chronic History of Present Illness Date of Admission: 11/14/18 Chief Complaint: Diarrhea The patient is a 53 y/o M w/ PMHx: Poorly controlled Diabetes mellitus type II, HTN, HLD, Chronic Pain Syndrome, Prior reported Pain regimen seeking behaviors, Former Tobacco use, Chronically Elevated LFTs unclear etiology, History of prior Pancreatitis who presents to the [facility] ED on 11/14/18 with history of recent ED presentation 11/08/18 secondary to abdominal and back discomfort w/ history of spinal stenosis with radiculopathy with discomfort intermittently into the right buttock and down the right leg with no muscle weakness or change in bowel or bladder with chronic abdominal pain following with surgery with history of gallstone pancreatitis status post cholecystectomy with several day history of loose stools to have left AMA at that time secondary to not receiving Dilaudid who now represents to the [facility] ED on 11/14/18 with history of worsening generalized cramping abdominal pain worse in the periumbilical and umbilical region with concurrent diarrhea x 3 days, similar to recent ED presentation. He notes that he has been evaluated per Dr. Guzman and is pending further evaluation prior to initiation of chronic pain regimen but from prior history has opiate dependence. Work-up in the ED included T 90.9, heart rate 80, BP 122/85, respiratory rate 16, 97% on room air, CBC with WBC 6.8, hemoglobin 12, platelet 137 without market shift, CMP w/ Na 128, Chl 95, BUN/Cr 22/0.86, glucose 535, AG 8, LA 1.4, AST/ALT 59/115, lipase 888, unremarkable CT abdomen and pelvis with oral and IV contrast. In the ED patient administered normal saline, Zofran, 15 units subcu insulin x1, Dilaudid 0.5 mg IV x 2. 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 ketorolac [From Toradol] Adverse Reaction (Verified 11/14/18 16:48) Other Home Medications: Ambulatory Orders Medication Instructions Recorded insulin glargine 100 30 unit SC DAILY ml 08/18/18 unit-lixisenatide 33 mcg/mL subcutaneous pen lisinopril 10 mg tablet 10 mg PO DAILY #90 tab 10/04/18 Atorvastatin Calcium 40 mg PO DAILY 11/14/18 Insulin Lispro [Humalog Kwikpen] 10 unit SC TIDCM 11/14/18 Surgical History: Surgical History (Last Reviewed 09/20/18 @ 14:08 by Zenaida Hines) History of appendectomy Z90.49 S/P laparoscopic cholecystectomy Z90.49 Surgical History: appendectomy, cholecystectomy, - - Testicular surgery age 14. Psychiatric History: No pertinent psych hx Lives: Spouse/ Significant Other Smoking Status: Former smoker Tobacco Use: Non-smoker Alcohol: None Drugs: None - *Family History Maternal Family History: Family History (Last Reviewed 09/20/18 @ 14:08 by Zenaida Hines) Father Diabetes Mother Diabetes History Items: Diabetes Paternal Family History: Family History (Last Reviewed 09/20/18 @ 14:08 by Zenaida Hines) Father Diabetes Mother Diabetes History Items: Heart Disease - CAD s/p CABG history. Patient notes that his paternal grandmother had diabetes. Review of Systems Constitutional: Reports: Anorexia, Malaise, Weakness, Fatigue. Denies: Chills, Fever, Weight Change HEENT: Denies: Head Aches, Sinus Congestion, Sinus Drainage Cardiovascular: Denies: Chest Pain, Palpitations Respiratory: Denies: Cough, Shortness of breath at rest, Sputum production Gastrointestinal: Reports: Abdominal Pain, Diarrhea, Nausea. Denies: Vomiting Genitourinary: Denies: Dysuria Musculoskeletal: Reports: Back Pain, Leg Pain. Denies: Joint Pain, Joint Tenderness Skin: Reports: Skin Changes. Denies: Rash, Wounds Neurological: Denies: Numbness, Tingling, Focal weakness Psychiatric: Denies: Anxiety, Depression, Homicidal Ideations, Suicidal Ideations Hematologic/ Lymphatic: Denies: Easy Bruising, Easy Bleeding VTE Information - Inpt Only VTE Present on Admission: No VTE Mechan Device Prophylaxis: SCD's VTE Pharm Prophylaxis ordered?: Yes Patient Problems: Active and Suspected Problems (Last Reviewed 09/20/18 @ 14:08 by Zenaida Hines) Acute pancreatitis (Acute) Subjective: Seated upright in ED bed, notes intermittent discomfort to the abdomen, mildly improved status post recent pain regimen. Objective: Physical Examination: General: awake, alert, oriented x 3 and cooperative, seated upright in the ED bed, abdominal discomfort improved currently status post recent pain regimen. Skin: normal color, turgor, no icterus, cyanosis. HEENT: AT/NC, EOMI, PERRLA, dry MM, no carotid bruits or JVD noted, poor dentition. Lungs: Managed breath sounds bilaterally, greater bilateral bases, moderate effort, no rales, ronchi or wheezing. Heart: Regular rate and rhythm; no gallop, rub audible. Abdomen: soft, thin cachectic habitus, diffuse generalized discomfort with palpation, difficult to assess HSM secondary to discomfort with examination, nondistended, mildly hyperactive bowel sounds in the bilateral lower quadrants. Extremities: no cyanosis, clubbing, or edema, poor foot hygiene noted. Neurological: patient awake, alert, oriented x 3; cognitive function intact; pupils equally reactive to light and accomodation; cranial nerves II-XII grossly normal, moving all 4 extremities, no focal deficits, strength severely globally decreased secondary to acute presentation. Psychiatric: affect appears fatigued, no acute evidence of depressive or anxiety feelings. - Physical Exam Vital Signs Temp Pulse Resp BP Pulse Ox 98.8 F 89 17 132/88 H 98 11/14/18 20:05 11/14/18 20:05 11/14/18 20:05 11/14/18 20:05 11/14/18 20:05 Oxygen Delivery Method Room Air Weight: 140 lb 8 oz Body Mass Index (BMI) 18.5 Finger Stick Blood Glucose 400 Laboratory Tests Past 24 Hrs 11/14/18 11/14/18 11/14/18 17:35 17:35 17:35 WBC 6.8 RBC 4.02 L Hgb 12.0 L Hct 35.9 L MCV 89.3 MCH 29.9 MCHC 33.4 RDW 12.2 RDW Differential 39.2 Plt Count 137 L MPV 11.1 Immature Gran % (Auto) 0.400 Neut % (Auto) 65.9 Lymph % (Auto) 23.0 [place] % (Auto) 9.4 Eos % (Auto) 1.2 Baso % (Auto) 0.1 Absolute Neuts (auto) 4.5 Absolute Lymphs (auto) 1.57 Total Counted Not Reportable Sodium 128 L Potassium 4.3 Chloride 95 L Carbon Dioxide 25.0 Anion Gap 8 BUN 22 H Creatinine 0.86 Estim Creat Clear Calc 90.57 Est GFR (MDRD) Af Amer 121 Est GFR (MDRD) Non-Af 100 BUN/Creatinine Ratio 25.7 H Glucose 535 H* Lactic Acid 1.4 Calcium 8.7 Total Bilirubin 0.50 AST 59 H ALT 115 H Alkaline Phosphatase 80 Total Protein 8.5 H Albumin 3.3 Globulin 5.2 H Albumin/Globulin Ratio 0.6 L Lipase 888 H Ethyl Alcohol 11/14/18 17:50 WBC RBC Hgb Hct MCV MCH MCHC RDW RDW Differential Plt Count MPV Immature Gran % (Auto) Neut % (Auto) Lymph % (Auto) [place] % (Auto) Eos % (Auto) Baso % (Auto) Absolute Neuts (auto) Absolute Lymphs (auto) Total Counted Sodium Potassium Chloride Carbon Dioxide Anion Gap BUN Creatinine Estim Creat Clear Calc Est GFR (MDRD) Af Amer Est GFR (MDRD) Non-Af BUN/Creatinine Ratio Glucose Lactic Acid Calcium Total Bilirubin AST ALT Alkaline Phosphatase Total Protein Albumin Globulin Albumin/Globulin Ratio Lipase Ethyl Alcohol < 3.0 Assessment/Plan All Active Problems (Last Reviewed 09/20/18 @ 14:08 by Zenaida Hines) Acute pancreatitis (Acute) Gastroenteritis (Acute) Hyperglycemia (Acute) The patient is a 53 y/o M w/ PMHx: Poorly controlled Diabetes mellitus type II, HTN, HLD, Chronic Pain Syndrome, Prior reported Pain regimen seeking behaviors, Former Tobacco use, Chronically Elevated LFTs unclear etiology, History of prior Pancreatitis who presents to the [facility] ED on 11/14/18 with history of recent ED presentation 11/08/18 secondary to abdominal and back discomfort w/ history of spinal stenosis with radiculopathy with discomfort intermittently into the right buttock and down the right leg with no muscle weakness or change in bowel or bladder with chronic abdominal pain following with surgery with history of gallstone pancreatitis status post cholecystectomy with several day history of loose stools to have left AMA at that time secondary to not receiving Dilaudid who now represents to the [facility] ED on 11/14/18 with history of worsening generalized cramping abdominal pain worse in the periumbilical and umbilical region with concurrent diarrhea x 3 days, similar to recent ED presentation. (1) Acute pancreatitis w/ abdominal pain, Diarrhea: Work-up in the ED included T 90.9, heart rate 80, BP 122/85, respiratory rate 16, 97% on room air, CBC with WBC 6.8, hemoglobin 12, platelet 137 without market shift, CMP w/ Na 128, Chl 95, BUN/Cr 22/0.86, glucose 535, AG 8, LA 1.4, AST/ALT 59/115, lipase 888, unremarkable CT abdomen and pelvis with oral and IV contrast. Will admit to [facility], maintain on IVFs, NPO, PPI, IV/po pain control, trend lipase, CMP. s/p Cholecystectomy. Does have chronic LFT elevations similar to prior w/ review of prior labs w. Hepatitis C Ab confirmation noted. FLP in AM. Will further assess for EtOH consumption risk as etiology for pancreatitis. (2) Chronic LFT Elevations with Hepatitis C: Prior labs 02/02/17 with noted + hepatitis C Ab confirmation, noted following w/ PCP with recent repeat hepatitis panel ordered, possible for co-infection although negative at that prior testing. Patient for hep C treatment needs to be documented as clean, sober x 6 months, complicated by chronic pain syndrome and prior concern for seeking behaviors. HIV requested additionally. Encouraged PCP follow-up. Patient of notes denies any IVDA and denies any other sexual interaction aside his for > 20 years. (3) Hyponatremia, Acute on Chronic: Likely secondary to mild dehydration with GI losses, admission Na 128, baseline 134-135 form records review, continue to hydrate, repeat CMP in AM. (4) Poorly Controlled Diabetes mellitus type II: Last HgbA1c 05/2018 12.9%, repeat requested per PCP from last note but has not been performed yet per patient, will obtain HgBA1c now, continue home long acting insulin regimen, NPO status, q 6 hour accu checks w/ ISS, nutrition consulted for education and teaching. Encouraged consideration follow-up outpatient with podiatry as poor foot hygiene/care. (5) Chronic Pain Syndrome w/ Chronic Lumbar Back Pain w/ Stenosis, Radiculopathy: Complicates presentation, prior seeking behaviors documented, notes currently having ongoing evaluation with Dr. Guzman, not on documented pain regimen yet. PRN IV and oral regimen as noted above, may add low dose gabapentin if needed. (6) Hypertension: Continue home regimen including lisinopril, PRN hydralazine. (7) Hyperlipidemia: Continue home statin regimen. (8) Tobacco Abuse: Encouraged continued cessation. (9) Severe Protein-Calorie Malnutrition: Evidenced per habitus, lower BMI, muscle and fat loss, nutrition consulted. (10) GERD: IV PPI. (11) DVT Prophylaxis: SCDs, lovenox. Code Visit Inpatient E&M: 16858 Init Hosp L3
[2018-11-14 21:31] LABS: Bedside Glucose 413 mg/dL (70-110)
[2018-11-14 22:35] LABS: Bedside Glucose 384 mg/dL (70-110)
[2018-11-14 22:56] LABS: Phosphorus 3.8 mg/dL (2.5-4.9)
[2018-11-14] MEDS: 0.9% Normal Saline 1,000 ML 999 ML IV (23:02)
[2018-11-14] MEDS: HYDROmorphone 1 MG/ML Syringe IV (23:02)
[2018-11-14] MEDS: Insulin Lispro 100 UNIT/ML INSULN.PEN SC (23:02)
[2018-11-14 23:28] LABS: Hemoglobin A1c 12.5 % (4.2-6.3)
[2018-11-14 23:43] LABS: HIV - WCH Non-Reactive (Nonreactive)
[2018-11-15] VITALS (7 sets, daily range): BP systolic 88–115; BP diastolic 60–79; PULSE 71–83; RESP 14–18; TEMP 36.5–36.8; O2SAT 97–99
[2018-11-15] MEDS: 0.9% Normal Saline 1,000 ML 150 ML IV ×2 (00:44→09:12)
[2018-11-15] MEDS: HYDROmorphone 1 MG/ML Syringe IV ×7 (02:23→22:18)
[2018-11-15] MEDS: Insulin Lispro 100 UNIT/ML INSULN.PEN SC ×3 (05:28→23:48)
[2018-11-15 05:36] LABS: Bedside Glucose 229 mg/dL (70-110)
[2018-11-15 06:07] LABS: Absolute Lymphocyte Count 2.29 X10^3/ul (0.83-4.51); Absolute Neutrophil Count 2.2 X10^3/uL (2.0-7.7); Basophil# 0.01 X10^3/uL; Basophil% 0.2 % (0-1); Eosinophil# 0.11 X10^3/uL; Eosinophils% 2.2 % (0-5); Hematocrit 25.9 % (40-54); Hemoglobin 9.4 g/dl (13.0-16.5); Lymphocyte # 2.29 X10^3/ul (4.0); Lymphocyte % 45.2 % (19-41); Mean Corp Hgb Conc 36.3 g/gl (32-36); Mean Corpuscular Hgb 32.8 pg (27.0-32.0); Mean Corpuscular Volume 90.2 fL (80-94); Mean Platelet Vol. 9.9 fl (6.2-12.0); Monocyte# 0.43 X10^3/uL; Monocyte% 8.5 % (0-10); Neutrophil % 43.3 % (47-70); Platelet Count 128 K/mm3 (150-450); RBC Distribution Width CV 11.5 % (11.6-14.6); RBC Distribution Width SD 36.5 fl (35.1-43.9); Red Blood Count 2.87 M/mm3 (4.6-6.2); White Blood Count 5.1 K/mm3 (4.4-11.0)
[2018-11-15 06:08] LABS: POSITIVE COUNT NO; POSITIVE DIFFERENTIAL NO; POSITIVE MORPHOLOGY NO
[2018-11-15 06:48] LABS: ALB/GLOB Ratio 0.6 RATIO (0.9-2.4); AST(SGOT) 55 U/L (15-37); Alanine Aminotransfer ALT/SGPT 77 U/L (16-61); Albumin, Serum 2.1 g/dL (3.2-5.0); Alkaline Phosphatase 50 U/L (45-117); Anion Gap 8 (5-15); BUN 14 mg/dL (7-18); BUN/Creat Ratio 34.5 RATIO (10-20); Calcium,Total 6.4 mg/dL (8.5-10.1); Chloride 114 mmol/L (98-107); Cholesterol 85 mg/dL (200); Creatinine, Serum 0.41 mg/dL (0.70-1.30); EST Glomerular Filtration Rate 236 mL/min (>60); Est Glom Filt Rate - Afr Amer 285 mL/min (>60); Estimated Creatinine Clearance 187.21 ml/min; Globulin 3.4 g/dL (2.2-4.2); Glucose 201 mg/dL (74-106); High Density Lipoprotein 22 mg/dL; Lipase 259 U/L (73-393); Potassium 3.1 mmol/L (3.5-5.1); Protein, Total 5.5 g/dL (6.4-8.2); Sodium Level 142 mmol/L (136-145); Triglycerides 121 mg/dL; Very Low Density Lipoprotein 24 mg/dL (5-40)
[2018-11-15 08:03] LABS: Magnesium 1.4 mg/dL (1.6-2.6)
[2018-11-15] MEDS: Ondansetron 4 MG/2 ML Vial IV ×2 (09:01→18:25)
[2018-11-15] MEDS: Enoxaparin 40 MG/0.4 ML Syringe SC (09:01)
[2018-11-15] MEDS: 0.9% NaCl Peripheral Flush Adult/Peds IV ×8 (09:12→23:47)
[2018-11-15] MEDS: Lisinopril 10 MG Tablet PO (11:16)
--- NOTE | 2018-11-15 11:19 | PCM.PN.HOSP ---
Patient Problems: Active and Suspected Problems (Last Reviewed 09/20/18 @ 14:08 by Zenaida Hines) Acute pancreatitis (Acute) Subjective: Patient admitted overnight with a complaint of worsening generalized cramping abdominal pain worse in the. Umbilical and umbilical region. He had associated diarrhea for 3 days. He had recently been seen in the ED on 11/08/2018 for similar abdominal and back pain and left AMA on account of not receiving Dilaudid. He was found to have acute pancreatitis on account of lipase of [address] abdomen was however unremarkable. He was admitted to a monitored bed and is being managed for acute pancreatitis. Patient seen and examined. Complaint of generalized pain and said he had pain in his back and his abdomen and his chest and his extremities. Rated pain a 10 out of 10 and said he had not had his pain meds for couple of hours. He denied any fever or chills, any nausea vomiting, or diarrhea. Labs and vitals reviewed. Vitals/I&O's: Vital Signs Temp Pulse Resp BP Pulse Ox 98.2 F 83 18 115/79 99 11/15/18 08:58 11/15/18 08:58 11/15/18 08:58 11/15/18 08:58 11/15/18 08:58 Oxygen Delivery Method Room Air Weight: 138 lb 7.205 oz Body Mass Index (BMI) 18.2 Finger Stick Blood Glucose 413 Intake and Output for Last 24 Hours 11/13/18 11/14/18 11/15/18 23:59 23:59 23:59 Intake Total 2318 / 2318 Balance 2318 / 2318 General: Alert, Oriented x3, Cooperative, No apparent distress HEENT: Atraumatic, PERRLA, EOMI, Normocephalic Oral: Moist Mucosa Neck: Supple Lungs: Clear to auscultation, Normal air movement Cardiovascular: Regular rate, Regular Rhythm, Normal S1, Normal S2, No murmurs Abdomen: Bowel Sounds Present, Soft, Non-Distended, No Hepato-splenomegaly, - - mild generalised abdominal tenderness Extremities: No clubbing, No cyanosis, No edema, Capillary Refill Less than 3 Seconds Skin: No rashes, No breakdown Musculoskeletal: No Tenderness to Palpation of Joints or Extremities Lymphatic: No Cervical, Supraclavicular, or Inguinal Adenopathy Neurological: Cranial nerves II-XII grossly intact Psych/Mental Status: Normal Affect, Alert and oriented to time, place, person, mood and affect Microbiology Past 72 Hours 11/14/18 17:35 Stool C. difficile DNA Amplification - Final Laboratory Results 11/14/18 17:35: WBC 6.8, RBC 4.02 L, Hgb 12.0 L, Hct 35.9 L, MCV 89.3, MCH 29.9, MCHC 33.4, RDW 12.2, RDW Differential 39.2, Plt Count 137 L, MPV 11.1, Immature Gran % (Auto) 0.400, Neut % (Auto) 65.9, Lymph % (Auto) 23.0, [place] % (Auto) 9.4, Eos % (Auto) 1.2, Baso % (Auto) 0.1, Absolute Neuts (auto) 4.5, Absolute Lymphs (auto) 1.57, Total Counted Not Reportable 11/14/18 17:35: Sodium 128 L, Potassium 4.3, Chloride 95 L, Carbon Dioxide 25.0, Anion Gap 8, BUN 22 H, Creatinine 0.86, Estim Creat Clear Calc 90.57, Est GFR (MDRD) Af Amer 121, Est GFR (MDRD) Non-Af 100, BUN/Creatinine Ratio 25.7 H, Glucose 535 H*, Calcium 8.7, Total Bilirubin 0.50, AST 59 H, ALT 115 H, Alkaline Phosphatase 80, Total Protein 8.5 H, Albumin 3.3, Globulin 5.2 H, Albumin/Globulin Ratio 0.6 L, Lipase 888 H 11/14/18 17:35: Lactic Acid 1.4 11/14/18 17:35: Magnesium 2.0 11/14/18 17:35: Hemoglobin A1c 12.5 H 11/14/18 17:35: Phosphorus 3.8 11/14/18 17:50: Ethyl Alcohol < 3.0 11/14/18 17:50: HIV 1&2 Antibody Non-Reactive 11/14/18 21:23: POC Glucose 413 H 11/14/18 22:24: POC Glucose 384 H 11/15/18 05:28: POC Glucose 229 H 11/15/18 05:38: Hepatitis A IgM Ab Pending, Hepatitis A Ab Total Pending, Hep Bs Antigen Pending, Hep B Core Total Ab Pending, Hep B Core IgM Ab Pending 11/15/18 05:38: WBC 5.1, RBC 2.87 L, Hgb 9.4 L, Hct 25.9 L, MCV 90.2, MCH 32.8 H, MCHC 36.3 H, RDW 11.5 L, RDW Differential 36.5, Plt Count 128 L, MPV 9.9, Immature Gran % (Auto) 0.600, Neut % (Auto) 43.3 L, Lymph % (Auto) 45.2 H, [place] % (Auto) 8.5, Eos % (Auto) 2.2, Baso % (Auto) 0.2, Absolute Neuts (auto) 2.2, Absolute Lymphs (auto) 2.29, Total Counted Not Reportable 11/15/18 05:38: Sodium 142, Potassium 3.1 L, Chloride 114 H, Carbon Dioxide 20.0 L, Anion Gap 8, BUN 14, Creatinine 0.41 L, Estim Creat Clear Calc 187.21, Est GFR (MDRD) Af Amer 285, Est GFR (MDRD) Non-Af 236, BUN/Creatinine Ratio 34.5 H, Glucose 201 H, Calcium 6.4 L*, Total Bilirubin 0.40, AST 55 H, ALT 77 H, Alkaline Phosphatase 50, Total Protein 5.5 L, Albumin 2.1 L, Globulin 3.4, Albumin/Globulin Ratio 0.6 L, Triglycerides 121, Cholesterol 85, LDL Cholesterol 39, VLDL Cholesterol 24, HDL Cholesterol 22 L, Lipase 259 11/15/18 05:38: Magnesium 1.4 L Diagnostic Data Abdomen/Pelvis CT 11/14/18 18:26 IMPRESSION: Normal CT of the abdomen and pelvis. Electronically Signed: Gail Choi MD at 20:38 EST Tel , Service support , Current Medications Acetaminophen (Tylenol) 650 mg PO Q6H PRN PRN PRN Reason: Non-cardiac pain (mod-severe) Atorvastatin Calcium (Lipitor) 40 mg PO QHS [facility] Enoxaparin Sodium (Lovenox) 40 mg SC DAILY@1000 JANKI Last Admin: 11/15/18 09:01 Dose: 40 mg Hydralazine HCl (Apresoline Iv) 10 mg IV Q4H PRN PRN PRN Reason: SBP > 160 Hydromorphone HCl (Dilaudid Inj) 1 mg IV Q3H PRN PRN PRN Reason: SEVERE PAIN (6-10/10) Last Admin: 11/15/18 09:02 Dose: 1 mg Sodium Chloride () 1,000 mls @ 150 mls/hr IV .Q6H40M [facility] Last Admin: 11/15/18 09:12 Dose: 150 mls/hr Pantoprazole Sodium 40 mg/ (Sodium Chloride) 110 mls @ 330 mls/hr IV Q12 JANKI Last Admin: 11/14/18 23:02 Dose: 330 mls/hr Insulin Glargine (Lantus (Bkc)) 30 units SC DAILY [facility] Last Admin: 11/15/18 09:35 Dose: 30 units Insulin Human Lispro (Humalog Kwikpen (Bkc)) 0 unit SC Q6 [facility]; Protocol Last Admin: 11/15/18 11:16 Dose: 6 u Lisinopril (Zestril) 10 mg PO DAILY [facility] Last Admin: 11/15/18 11:16 Dose: 10 mg Magnesium Hydroxide (Milk Of Magnesia) 30 ml PO DAILY PRN PRN PRN Reason: Constipation Ondansetron HCl (Zofran) 4 mg IV Q8H PRN PRN PRN Reason: NAUSEA/VOMITING Last Admin: 11/15/18 09:01 Dose: 4 mg Oxycodone HCl (Oxyir) 5 - 10 mg PO Q4H PRN PRN PRN Reason: SEVERE PAIN (6-10/10) Sodium Chloride () 5 - 15 ml IV UD PRN PRN Reason: SALINE FLUSH Last Admin: 11/15/18 11:19 Dose: 10 ml Temazepam (Restoril) 15 mg PO QHS PRN PRN PRN Reason: insomnia Medical Necessity - Tobacco Use Smoking Status: Former smoker Tobacco Use: Non-smoker Assessment/Plan All Active Problems (Last Reviewed 09/20/18 @ 14:08 by Zenaida Hines) Acute pancreatitis (Acute) Gastroenteritis (Acute) Hyperglycemia (Acute) 1. Acute pancreatitis still complains of generalised pain, as well as abdominal pain has associtaed nausea and vomiting Lipase was [address] abdomen was unremarkable cause of pancreatitis is unclear, as he denies drinking alcohol, and triglycerides were only 121 continue current pain regimen; start clear liquid diet, to advance as tolerated. 2. Hypocalcemia: calcium is 6.4, corrected for albumin, its 7.9, which is still low. Will correct with IV calcium gluconate and monitor. Mg level is 1.4. Will also correct. 3. Hypomagnesemia: Patient is 1.4. Will correct and monitor. 5. Elevated liver enzymes This is chronic. AST is 55 and ALT 77 which have trended down slightly from admission values. Has positive hepatitis antibody. Follows up with PCP and states hepatitis panel was recently ordered. 6. Hyponatremia: Sodium was 128 and is now up to 140. Sodium levels overcorrected within 24 hours as sodium level increment should be about 10 over 24 hours. Will dc IVF and monitor 7. Diabetes mellitus poorly controlled. A1C is 12.5; was previously 12.9 started on clear liquid diets continue long acting insulin, accuchecks ACHS; ISS 8. Non-anion gap acidosis Bicarb is down to 20 with anion gap of 8. Etiology of this is unclear. Will monitor closely with hydration and see if it resolves. 9. Hypokalemia: Potassium is 3.1 today. We will replace and monitor. 10. Hypertension: On lisinopril and hydralazine as needed. 11. Hyperlipidemia: On statin 12. GERD: on IV PPI DVT prophylaxis: amarilisx Code Visit Inpatient E&M: 16772 Subs Hosp L3
--- NOTE | 2018-11-15 11:24 | PN_ITS ---
Patient Problems: Active and Suspected Problems (Last Reviewed 09/20/18 @ 14:08 by Zenaida Hines) Acute pancreatitis (Acute) Subjective: Patient admitted overnight with a complaint of worsening generalized cramping abdominal pain worse in the. Umbilical and umbilical region. He had associated diarrhea for 3 days. He had recently been seen in the ED on 11/08/2018 for similar abdominal and back pain and left AMA on account of not receiving Dilaudid. He was found to have acute pancreatitis on account of lipase of [address] abdomen was however unremarkable. He was admitted to a monitored bed and is being managed for acute pancreatitis. Patient seen and examined. Complaint of generalized pain and said he had pain in his back and his abdomen and his chest and his extremities. Rated pain a 10 out of 10 and said he had not had his pain meds for couple of hours. He denied any fever or chills, any nausea vomiting, or diarrhea. Labs and vitals reviewed. Vitals/I&O's: Vital Signs Temp Pulse Resp BP Pulse Ox 98.2 F 83 18 115/79 99 11/15/18 08:58 11/15/18 08:58 11/15/18 08:58 11/15/18 08:58 11/15/18 08:58 Oxygen Delivery Method Room Air Weight: 138 lb 7.205 oz Body Mass Index (BMI) 18.2 Finger Stick Blood Glucose 413 Intake and Output for Last 24 Hours 11/13/18 11/14/18 11/15/18 23:59 23:59 23:59 Intake Total 2318 / 2318 Balance 2318 / 2318 General: Alert, Oriented x3, Cooperative, No apparent distress HEENT: Atraumatic, PERRLA, EOMI, Normocephalic Oral: Moist Mucosa Neck: Supple Lungs: Clear to auscultation, Normal air movement Cardiovascular: Regular rate, Regular Rhythm, Normal S1, Normal S2, No murmurs Abdomen: Bowel Sounds Present, Soft, Non-Distended, No Hepato-splenomegaly, - - mild generalised abdominal tenderness Extremities: No clubbing, No cyanosis, No edema, Capillary Refill Less than 3 Seconds Skin: No rashes, No breakdown Musculoskeletal: No Tenderness to Palpation of Joints or Extremities Lymphatic: No Cervical, Supraclavicular, or Inguinal Adenopathy Neurological: Cranial nerves II-XII grossly intact Psych/Mental Status: Normal Affect, Alert and oriented to time, place, person, mood and affect Microbiology Past 72 Hours 11/14/18 17:35 Stool C. difficile DNA Amplification - Final Laboratory Results 11/14/18 17:35: WBC 6.8, RBC 4.02 L, Hgb 12.0 L, Hct 35.9 L, MCV 89.3, MCH 29.9, MCHC 33.4, RDW 12.2, RDW Differential 39.2, Plt Count 137 L, MPV 11.1, Immature Gran % (Auto) 0.400, Neut % (Auto) 65.9, Lymph % (Auto) 23.0, [place] % (Auto) 9.4, Eos % (Auto) 1.2, Baso % (Auto) 0.1, Absolute Neuts (auto) 4.5, Absolute Lymphs (auto) 1.57, Total Counted Not Reportable 11/14/18 17:35: Sodium 128 L, Potassium 4.3, Chloride 95 L, Carbon Dioxide 25.0, Anion Gap 8, BUN 22 H, Creatinine 0.86, Estim Creat Clear Calc 90.57, Est GFR (MDRD) Af Amer 121, Est GFR (MDRD) Non-Af 100, BUN/Creatinine Ratio 25.7 H, Glucose 535 H*, Calcium 8.7, Total Bilirubin 0.50, AST 59 H, ALT 115 H, Alkaline Phosphatase 80, Total Protein 8.5 H, Albumin 3.3, Globulin 5.2 H, Albumin/Globulin Ratio 0.6 L, Lipase 888 H 11/14/18 17:35: Lactic Acid 1.4 11/14/18 17:35: Magnesium 2.0 11/14/18 17:35: Hemoglobin A1c 12.5 H 11/14/18 17:35: Phosphorus 3.8 11/14/18 17:50: Ethyl Alcohol < 3.0 11/14/18 17:50: HIV 1&2 Antibody Non-Reactive 11/14/18 21:23: POC Glucose 413 H 11/14/18 22:24: POC Glucose 384 H 11/15/18 05:28: POC Glucose 229 H 11/15/18 05:38: Hepatitis A IgM Ab Pending, Hepatitis A Ab Total Pending, Hep Bs Antigen Pending, Hep B Core Total Ab Pending, Hep B Core IgM Ab Pending 11/15/18 05:38: WBC 5.1, RBC 2.87 L, Hgb 9.4 L, Hct 25.9 L, MCV 90.2, MCH 32.8 H , MCHC 36.3 H, RDW 11.5 L, RDW Differential 36.5, Plt Count 128 L, MPV 9.9, Immature Gran % (Auto) 0.600, Neut % (Auto) 43.3 L, Lymph % (Auto) 45.2 H, [place] % (Auto) 8.5, Eos % (Auto) 2.2, Baso % (Auto) 0.2, Absolute Neuts (auto) 2.2, Absolute Lymphs (auto) 2.29, Total Counted Not Reportable 11/15/18 05:38: Sodium 142, Potassium 3.1 L, Chloride 114 H, Carbon Dioxide 20.0 L, Anion Gap 8, BUN 14, Creatinine 0.41 L, Estim Creat Clear Calc 187.21, Est GFR (MDRD) Af Amer 285, Est GFR (MDRD) Non-Af 236, BUN/Creatinine Ratio 34.5 H, Glucose 201 H, Calcium 6.4 L*, Total Bilirubin 0.40, AST 55 H, ALT 77 H, Alkaline Phosphatase 50, Total Protein 5.5 L, Albumin 2.1 L, Globulin 3.4, Albumin/Globulin Ratio 0.6 L, Triglycerides 121, Cholesterol 85, LDL Cholesterol 39, VLDL Cholesterol 24, HDL Cholesterol 22 L, Lipase 259 11/15/18 05:38: Magnesium 1.4 L Diagnostic Data Abdomen/Pelvis CT 11/14/18 18:26 IMPRESSION: Normal CT of the abdomen and pelvis. Electronically Signed: Gail Choi MD at 20:38 EST Tel , Service support , Current Medications Acetaminophen (Tylenol) 650 mg PO Q6H PRN PRN PRN Reason: Non-cardiac pain (mod-severe) Atorvastatin Calcium (Lipitor) 40 mg PO QHS [facility] Enoxaparin Sodium (Lovenox) 40 mg SC DAILY@1000 JANKI Last Admin: 11/15/18 09:01 Dose: 40 mg Hydralazine HCl (Apresoline Iv) 10 mg IV Q4H PRN PRN PRN Reason: SBP > 160 Hydromorphone HCl (Dilaudid Inj) 1 mg IV Q3H PRN PRN PRN Reason: SEVERE PAIN (6-10/10) Last Admin: 11/15/18 09:02 Dose: 1 mg Sodium Chloride () 1,000 mls @ 150 mls/hr IV .Q6H40M [facility] Last Admin: 11/15/18 09:12 Dose: 150 mls/hr Pantoprazole Sodium 40 mg/ (Sodium Chloride) 110 mls @ 330 mls/hr IV Q12 [facility] Last Admin: 11/14/18 23:02 Dose: 330 mls/hr Insulin Glargine (Lantus (Bkc)) 30 units SC DAILY [facility] Last Admin: 11/15/18 09:35 Dose: 30 units Insulin Human Lispro (Humalog Kwikpen (Bkc)) 0 unit SC Q6 [facility]; Protocol Last Admin: 11/15/18 11:16 Dose: 6 u Lisinopril (Zestril) 10 mg PO DAILY [facility] Last Admin: 11/15/18 11:16 Dose: 10 mg Magnesium Hydroxide (Milk Of Magnesia) 30 ml PO DAILY PRN PRN PRN Reason: Constipation Ondansetron HCl (Zofran) 4 mg IV Q8H PRN PRN PRN Reason: NAUSEA/VOMITING Last Admin: 11/15/18 09:01 Dose: 4 mg Oxycodone HCl (Oxyir) 5 - 10 mg PO Q4H PRN PRN PRN Reason: SEVERE PAIN (6-10/10) Sodium Chloride () 5 - 15 ml IV UD PRN PRN Reason: SALINE FLUSH Last Admin: 11/15/18 11:19 Dose: 10 ml Temazepam (Restoril) 15 mg PO QHS PRN PRN PRN Reason: insomnia Medical Necessity - Tobacco Use Smoking Status: Former smoker Tobacco Use: Non-smoker Assessment/Plan All Active Problems (Last Reviewed 09/20/18 @ 14:08 by Zenaida Hines) Acute pancreatitis (Acute) Gastroenteritis (Acute) Hyperglycemia (Acute) 1. Acute pancreatitis * still complains of generalised pain, as well as abdominal pain * has associtaed nausea and vomiting * Lipase was 888 on admission * CT abdomen was unremarkable * cause of pancreatitis is unclear, as he denies drinking alcohol, and triglycerides were only 121 * continue current pain regimen; start clear liquid diet, to advance as tolerated. * 2. Hypocalcemia: * calcium is 6.4, corrected for albumin, its 7.9, which is still low. * Will correct with IV calcium gluconate and monitor. * Mg level is 1.4. Will also correct. * 3. Hypomagnesemia: Patient is 1.4. Will correct and monitor. 5. Elevated liver enzymes * This is chronic. * AST is 55 and ALT 77 which have trended down slightly from admission values. * Has positive hepatitis antibody. Follows up with PCP and states hepatitis panel was recently ordered. * 6. Hyponatremia: * Sodium was 128 and is now up to 140. Sodium levels overcorrected within 24 hours as sodium level increment should be about 10 over 24 hours. * Will dc IVF and monitor * 7. Diabetes mellitus * poorly controlled. A1C is 12.5; was previously 12.9 * started on clear liquid diets * continue long acting insulin, accuchecks ACHS; ISS * 8. Non-anion gap acidosis * Bicarb is down to 20 with anion gap of 8. Etiology of this is unclear. * Will monitor closely with hydration and see if it resolves. * 9. Hypokalemia: Potassium is 3.1 today. We will replace and monitor. 10. Hypertension: On lisinopril and hydralazine as needed. 11. Hyperlipidemia: On statin 12. GERD: on IV PPI DVT prophylaxis: lovenox Code Visit Inpatient E&M: [id number] [facility] Hosp L3
[2018-11-15 11:25] LABS: Bedside Glucose 285 mg/dL (70-110)
[2018-11-15] MEDS: Magnesium Sulfate 4gm/100mL 4 GM/100 ML IV.SOLN. IV (12:37)
--- NOTE | 2018-11-15 13:16 | CASEMGMT ---
RN CM Note Presentation: pancreatitis, abd pain, diarrhea. Intro role of CM to patient in room. Pt is able to participate in dc planning. Pt verbalized concern in checking blood sugars at home. States he has BG monitoring equipment, but when he is not feeling well, he struggles with proper monitoring. Discussed Home Health. Pt states due to neuropathy and illness he is homebound and does not leave home. PCP: Dr. Miller Pharmacy: [facility] or [facility] Prescription coverage: yes through [facility] Living arrangements: lives with in apartment. DME: uses cane only. Transportation: family HHS: RN set up through [facility]. Information faxed to [phone] DC Plan: Home with [facility] through [place]. Tracy RON RN ACM
[2018-11-15 17:21] LABS: Bedside Glucose 123 mg/dL (70-110)
[2018-11-15] MEDS: 0.45% Normal Saline 1,000 ML 100 ML IV (18:57)
[2018-11-15] MEDS: Atorvastatin Calcium 40 MG Tablet PO (22:01)
[2018-11-15] MEDS: oxyCODONE 5 MG Tablet PO (23:53)
[2018-11-15 23:55] LABS: Bedside Glucose 160 mg/dL (70-110)
[2018-11-16] MEDS: HYDROmorphone 1 MG/ML Syringe IV ×7 (01:25→20:36)
[2018-11-16 02:10] VITALS: BP 118/82; PULSE 93; RESP 16; TEMP 36.6; O2SAT 100
[2018-11-16] MEDS: Ondansetron 4 MG/2 ML Vial IV ×2 (02:48→18:57)
[2018-11-16] MEDS: 0.45% Normal Saline 1,000 ML 100 ML IV ×2 (05:44→16:16)
[2018-11-16] MEDS: oxyCODONE 5 MG Tablet PO ×3 (05:49→16:16)
[2018-11-16 06:01] LABS: Bedside Glucose 114 mg/dL (70-110)
[2018-11-16 06:27] LABS: Absolute Lymphocyte Count 2.01 X10^3/ul (0.83-4.51); Absolute Neutrophil Count 2.6 X10^3/uL (2.0-7.7); Basophil# 0.02 X10^3/uL; Basophil% 0.4 % (0-1); Eosinophil# 0.12 X10^3/uL; Eosinophils% 2.3 % (0-5); Hematocrit 33.5 % (40-54); Hemoglobin 11.9 g/dl (13.0-16.5); Lymphocyte # 2.01 X10^3/ul (4.0); Lymphocyte % 38.2 % (19-41); Mean Corp Hgb Conc 35.5 g/gl (32-36); Mean Corpuscular Hgb 32.2 pg (27.0-32.0); Mean Corpuscular Volume 90.8 fL (80-94); Monocyte# 0.49 X10^3/uL; Monocyte% 9.3 % (0-10); Neutrophil # 2.59 X10^3/uL (2.7-7.7); Neutrophil % 49.2 % (47-70); Platelet Count 142 K/mm3 (150-450); RBC Distribution Width CV 11.9 % (11.6-14.6); RBC Distribution Width SD 38.3 fl (35.1-43.9); Red Blood Count 3.69 M/mm3 (4.6-6.2); White Blood Count 5.3 K/mm3 (4.4-11.0)
[2018-11-16 06:33] LABS: ALB/GLOB Ratio 0.6 RATIO (0.9-2.4); AST(SGOT) 113 U/L (15-37); Alanine Aminotransfer ALT/SGPT 120 U/L (16-61); Albumin, Serum 2.7 g/dL (3.2-5.0); Alkaline Phosphatase 66 U/L (45-117); Anion Gap 8 (5-15); BUN 12 mg/dL (7-18); BUN/Creat Ratio 25.1 RATIO (10-20); Chloride 109 mmol/L (98-107); Creatinine, Serum 0.48 mg/dL (0.70-1.30); EST Glomerular Filtration Rate 195 mL/min (>60); Est Glom Filt Rate - Afr Amer 236 mL/min (>60); Estimated Creatinine Clearance 159.91 ml/min; Globulin 4.4 g/dL (2.2-4.2); Glucose 96 mg/dL (74-106); Magnesium 2.3 mg/dL (1.6-2.6); Potassium 3.9 mmol/L (3.5-5.1); Protein, Total 7.1 g/dL (6.4-8.2); Sodium Level 137 mmol/L (136-145)
[2018-11-16 06:37] LABS: POSITIVE COUNT NO; POSITIVE DIFFERENTIAL NO; POSITIVE MORPHOLOGY NO
[2018-11-16 07:29] VITALS: BP 145/93; PULSE 83; RESP 16; TEMP 36.4; O2SAT 100
[2018-11-16] MEDS: Lisinopril 10 MG Tablet PO (09:14)
[2018-11-16] MEDS: Enoxaparin 40 MG/0.4 ML Syringe SC (09:15)
--- NOTE | 2018-11-16 09:39 | MRI_ITS ---
STUDY: MRI LUMBAR SPINE WITHOUT CONTRAST REASON FOR EXAM: Male, 53 years old. Chronic low back pain TECHNIQUE: Standardized fat and water weighted pulse sequences were obtained in the sagittal and axial planes. COMPARISON: None FINDINGS: T12-L1: Normal endplates. Normal disc height, hydration and morphology. Normal bilateral facet joints. Normal central canal and bilateral lateral recesses. Normal bilateral intervertebral neural foramina. Normal lumbar lordosis. There is no substantial scoliosis. Normal conus medullaris that terminates at the L1-2: Normal endplates. Normal disc height, hydration and morphology. Normal bilateral facet joints. Normal central canal and bilateral lateral recesses. Normal bilateral intervertebral neural foramina. L2-3: Normal endplates. Normal disc height, hydration and morphology. Normal bilateral facet joints. Normal central canal and bilateral lateral recesses. Normal bilateral intervertebral neural foramina. L3-4: Normal endplates. Normal disc height, hydration and morphology. Normal bilateral facet joints. Normal central canal and bilateral lateral recesses. Normal bilateral intervertebral neural foramina. L4-5: Normal endplates. Normal disc height, desiccation and moderate annular bulge tiny central disc protrusion.. Bilateral facet arthropathy.. Mild narrowing of the central canal.. Mild bilateral recess stenosis and moderate neural foraminal encroachment. L5-S1: Degenerative endplate changes.. Narrowed disc space with desiccation of the disc and moderate annular bulge producing upon the descending nerve roots bilaterally... Bilateral facet arthropathy and thickening of ligamenta flava.. Mild narrowing of the central canal. Moderate bilateral recess stenosis and moderate to severe bilateral neuroforaminal encroachment Normal visualized sacral ala. Normal visualized paraspinous soft tissue structures. MRI/Spine Lumbar (Routine) IMPRESSION: No acute fracture or other significant bony pathology Spinal stenosis at L4-5 and slightly more advanced at L5-S1 secondary to disc disease and facet arthropathy. Findings as above Electronically Signed: Jaime Rendon MD at 16:20 EST , Service support ,
--- NOTE | 2018-11-16 09:39 | MRI_ITS ---
STUDY: MRI THORACIC SPINE WITHOUT CONTRAST REASON FOR EXAM: Male, 53 years old. Chronic back pain and cord compression TECHNIQUE: Standardized fat and water weighted pulse sequences were obtained in the sagittal and axial planes. COMPARISON: None. FINDINGS: Normal kyphosis of the thoracic spine. There is no substantial scoliosis. T1-2, T2-3, T3-4, T4-5, T5-6, T6-7, T7-8, T8-9, T9-10, T10-11, T11-12: Normal endplates. Normal disc hydration, heights and morphology of the corresponding intervertebral discs. Normal central canal and intervertebral neural foramina at the corresponding levels. Normal visualized thoracic cord. Normal conus medullaris that terminates at the . The soft tissue structures are unremarkable. MRI/Spine Thoracic (Routine) IMPRESSION: Normal unenhanced MRI examination of the thoracic spine. Electronically Signed: Jaime Rendon MD at 16:15 EST , Service support ,
[2018-11-16] MEDS: Acetaminophen 325 MG Tablet 650 MG PO ×2 (10:02→16:16)
[2018-11-16 10:53] VITALS: BP 127/86; PULSE 78; RESP 16; TEMP 36.3; O2SAT 100
[2018-11-16 10:55] LABS: Bedside Glucose 91 mg/dL (70-110)
[2018-11-16 11:07] LABS: HEPATITIS B SURFACE AG Negative (Negative); Hepatitis A AB, Total Negative (Negative); Hepatitis A IgM Antibody Negative (Negative); Hepatitis B Core AB IgM Negative (Negative); Hepatitis B Core Ab Total Negative (Negative)
[2018-11-16 11:24] LABS: Hep B Surface Antibodies Non Reactive (.)
[2018-11-16 11:25] LABS: Hepatitis C Ab >11.0 s/co ratio (0.0-0.9)
[2018-11-16 11:30] VITALS: O2SAT 98
--- NOTE | 2018-11-16 12:07 | PCM.PN.HOSP ---
Patient Problems: Active and Suspected Problems (Last Reviewed 09/20/18 @ 14:08 by Zenaida Hines) Acute pancreatitis (Acute) Vitals/I&O's: Vital Signs Temp Pulse Resp BP Pulse Ox 97.4 F L 78 16 127/86 H 100 11/16/18 10:53 11/16/18 10:53 11/16/18 10:53 11/16/18 10:53 11/16/18 10:53 Oxygen Delivery Method Room Air Weight: 138 lb 7.205 oz Body Mass Index (BMI) 18.2 Finger Stick Blood Glucose 413 Intake and Output for Last 24 Hours 11/14/18 11/15/18 11/16/18 23:59 23:59 23:59 Intake Total 4363 / 4363 1098 / 1098 Output Total 2150 / 2150 Balance 2213 / 2213 1098 / 1098 Microbiology Past 72 Hours 11/14/18 17:35 Stool Enteric Bacteriology - Final 11/14/18 17:35 Stool C. difficile DNA Amplification - Final Laboratory Results 11/15/18 05:38: Hepatitis A IgM Ab Negative, Hepatitis A Ab Total Negative, Hep Bs Antigen Negative, Hep B Core Total Ab Negative, Hep B Core IgM Ab Negative, Hepatitis C Ab Confirm >11.0 H 11/15/18 17:15: POC Glucose 123 H 11/15/18 23:47: POC Glucose 160 H 11/16/18 05:53: POC Glucose 114 H 11/16/18 06:02: WBC 5.3, RBC 3.69 L, Hgb 11.9 L, Hct 33.5 L, MCV 90.8, MCH 32.2 H, MCHC 35.5, RDW 11.9, RDW Differential 38.3, Plt Count 142 L, MPV 10.0, Immature Gran % (Auto) 0.600, Neut % (Auto) 49.2, Lymph % (Auto) 38.2, [place] % (Auto) 9.3, Eos % (Auto) 2.3, Baso % (Auto) 0.4, Absolute Neuts (auto) 2.6, Absolute Lymphs (auto) 2.01, Total Counted Not Reportable 11/16/18 06:02: Sodium 137, Potassium 3.9, Chloride 109 H, Carbon Dioxide 20.0 L, Anion Gap 8, BUN 12, Creatinine 0.48 L, Estim Creat Clear Calc 159.91, Est GFR (MDRD) Af Amer 236, Est GFR (MDRD) Non-Af 195, BUN/Creatinine Ratio 25.1 H, Glucose 96, Calcium 8.0 L, Magnesium 2.3, Total Bilirubin 0.60, AST 113 H, ALT 120 H, Alkaline Phosphatase 66, Total Protein 7.1, Albumin 2.7 L, Globulin 4.4 H, Albumin/Globulin Ratio 0.6 L 11/16/18 10:45: POC Glucose 91 Current Medications Acetaminophen (Tylenol) 650 mg PO Q6H PRN PRN PRN Reason: Non-cardiac pain (mod-severe) Last Admin: 11/16/18 10:02 Dose: 650 mg Atorvastatin Calcium (Lipitor) 40 mg PO QHS [facility] Last Admin: 11/15/18 22:01 Dose: 40 mg Enoxaparin Sodium (Lovenox) 40 mg SC DAILY@1000 JANKI Last Admin: 11/16/18 09:15 Dose: 40 mg Hydralazine HCl (Apresoline Iv) 10 mg IV Q4H PRN PRN PRN Reason: SBP > 160 Hydromorphone HCl (Dilaudid Inj) 1 mg IV Q3H PRN PRN PRN Reason: SEVERE PAIN (6-08/03) Last Admin: 11/16/18 10:46 Dose: 1 mg Pantoprazole Sodium 40 mg/ (Sodium Chloride) 110 mls @ 330 mls/hr IV Q12 [facility] Last Admin: 11/16/18 09:15 Dose: 330 mls/hr Sodium Chloride () 1,000 mls @ 100 mls/hr IV .Q10H [facility] Last Admin: 11/16/18 05:44 Dose: 100 mls/hr Insulin Glargine (Lantus (Bkc)) 30 units SC DAILY [facility] Last Admin: 11/16/18 09:15 Dose: 30 units Insulin Human Lispro (Humalog Kwikpen (Bkc)) 0 unit SC Q6 [facility]; Protocol Last Admin: 11/16/18 10:47 Dose: Not Given Lisinopril (Zestril) 10 mg PO DAILY [facility] Last Admin: 11/16/18 09:14 Dose: 10 mg Magnesium Hydroxide (Milk Of Magnesia) 30 ml PO DAILY PRN PRN PRN Reason: Constipation Ondansetron HCl (Zofran) 4 mg IV Q8H PRN PRN PRN Reason: NAUSEA/VOMITING Last Admin: 11/16/18 02:48 Dose: 4 mg Oxycodone HCl (Oxyir) 5 - 10 mg PO Q4H PRN PRN PRN Reason: SEVERE PAIN (6-10/10) Last Admin: 11/16/18 10:02 Dose: 5 mg Sodium Chloride () 5 - 15 ml IV UD PRN PRN Reason: SALINE FLUSH Last Admin: 11/15/18 23:47 Dose: 10 ml Temazepam (Restoril) 15 mg PO QHS PRN PRN PRN Reason: insomnia Medical Necessity - Tobacco Use Smoking Status: Former smoker Tobacco Use: Non-smoker Assessment/Plan All Active Problems (Last Reviewed 09/20/18 @ 14:08 by Zenaida Hines) Acute pancreatitis (Acute) Gastroenteritis (Acute) Hyperglycemia (Acute)
--- NOTE | 2018-11-16 12:08 | PCM.PN.HOSP ---
Patient Problems: Active and Suspected Problems (Last Reviewed 09/20/18 @ 14:08 by Zenaida Hines) Acute pancreatitis (Acute) Subjective: Patient seen and examined. He complains of severe generalized pain. Patient wanted to know whether he would be given pain meds upon discharge, because his PCP and pain management doctor are not giving him scripts for pain meds. Patient got quite upset when I informed him to follow up with his PCP and pain mangement doctor for pain meds. Patient stated that he would write on the HCAHP score that physician refused to give him pain meds and left him in pain upon discharge. Patient stated he knew the law and knew his rights and therefore he knew that he had a right to pain medication. I stated to patient that I was not comfortable giving him pain medication upon discharge and that he should follow-up with his primary care doctor and pain management doctor. Patient stated that he had an appointment on 21 December and needed pain meds to last until then. I informed patient that he should follow-up with his primary care doctor in the interim for some pain medication prescription. Patient remained very upset and was getting quite agitated. Of note, patient has been requiring [id number] Dilaudid since admission. Review of his primary care doctor's notes shows that patient is suspected to have some opiate dependence and he also signed out AMA from the ED a few weeks ago because he was not given Dilaudid. I informed patient that I would consult pain management for further recommendation. Vitals/I&O's: Vital Signs Temp Pulse Resp BP Pulse Ox 97.4 F L 78 16 127/86 H 100 11/16/18 10:53 11/16/18 10:53 11/16/18 10:53 11/16/18 10:53 11/16/18 10:53 Oxygen Delivery Method Room Air Weight: 138 lb 7.205 oz Body Mass Index (BMI) 18.2 Finger Stick Blood Glucose 413 Intake and Output for Last 24 Hours 11/14/18 11/15/18 11/16/18 23:59 23:59 23:59 Intake Total 4363 / 4363 1098 / 1098 Output Total 2150 / 2150 Balance 2213 / 2213 1098 / 1098 General: Alert, Oriented x3, Cooperative, No apparent distress HEENT: Atraumatic, PERRLA, EOMI, Normocephalic Oral: Moist Mucosa Neck: Supple Lungs: Clear to auscultation, Normal air movement Cardiovascular: Regular rate, Regular Rhythm, Normal S1, Normal S2, No murmurs Abdomen: Bowel Sounds Present, Soft, Non-Distended, No Hepato-splenomegaly, - - minimal generalized abdominal tenderness Extremities: No clubbing, No cyanosis, No edema, Capillary Refill Less than 3 Seconds Skin: No rashes, No breakdown Musculoskeletal: No Tenderness to Palpation of Joints or Extremities Lymphatic: No Cervical, Supraclavicular, or Inguinal Adenopathy Neurological: Cranial nerves II-XII grossly intact Psych/Mental Status: Normal Affect, Alert and oriented to time, place, person, mood and affect Microbiology Past 72 Hours 11/14/18 17:35 Stool Enteric Bacteriology - Final 11/14/18 17:35 Stool C. difficile DNA Amplification - Final Laboratory Results 11/15/18 05:38: Hepatitis A IgM Ab Negative, Hepatitis A Ab Total Negative, Hep Bs Antigen Negative, Hep B Core Total Ab Negative, Hep B Core IgM Ab Negative, Hepatitis C Ab Confirm >11.0 H 11/15/18 17:15: POC Glucose 123 H 11/15/18 23:47: POC Glucose 160 H 11/16/18 05:53: POC Glucose 114 H 11/16/18 06:02: WBC 5.3, RBC 3.69 L, Hgb 11.9 L, Hct 33.5 L, MCV 90.8, MCH 32.2 H, MCHC 35.5, RDW 11.9, RDW Differential 38.3, Plt Count 142 L, MPV 10.0, Immature Gran % (Auto) 0.600, Neut % (Auto) 49.2, Lymph % (Auto) 38.2, [place] % (Auto) 9.3, Eos % (Auto) 2.3, Baso % (Auto) 0.4, Absolute Neuts (auto) 2.6, Absolute Lymphs (auto) 2.01, Total Counted Not Reportable 11/16/18 06:02: Sodium 137, Potassium 3.9, Chloride 109 H, Carbon Dioxide 20.0 L, Anion Gap 8, BUN 12, Creatinine 0.48 L, Estim Creat Clear Calc 159.91, Est GFR (MDRD) Af Amer 236, Est GFR (MDRD) Non-Af 195, BUN/Creatinine Ratio 25.1 H, Glucose 96, Calcium 8.0 L, Magnesium 2.3, Total Bilirubin 0.60, AST 113 H, ALT 120 H, Alkaline Phosphatase 66, Total Protein 7.1, Albumin 2.7 L, Globulin 4.4 H, Albumin/Globulin Ratio 0.6 L 11/16/18 10:45: POC Glucose 91 Current Medications Acetaminophen (Tylenol) 650 mg PO Q6H PRN PRN PRN Reason: Non-cardiac pain (mod-severe) Last Admin: 11/16/18 10:02 Dose: 650 mg Atorvastatin Calcium (Lipitor) 40 mg PO QHS [facility] Last Admin: 11/15/18 22:01 Dose: 40 mg Enoxaparin Sodium (Lovenox) 40 mg SC DAILY@1000 JANKI Last Admin: 11/16/18 09:15 Dose: 40 mg Hydralazine HCl (Apresoline Iv) 10 mg IV Q4H PRN PRN PRN Reason: SBP > 160 Hydromorphone HCl (Dilaudid Inj) 1 mg IV Q3H PRN PRN PRN Reason: SEVERE PAIN (6-1010) Last Admin: 11/16/18 10:46 Dose: 1 mg Pantoprazole Sodium 40 mg/ (Sodium Chloride) 110 mls @ 330 mls/hr IV Q12 [facility] Last Admin: 11/16/18 09:15 Dose: 330 mls/hr Sodium Chloride () 1,000 mls @ 100 mls/hr IV .Q10H [facility] Last Admin: 11/16/18 05:44 Dose: 100 mls/hr Insulin Glargine (Lantus (Bkc)) 30 units SC DAILY [facility] Last Admin: 11/16/18 09:15 Dose: 30 units Insulin Human Lispro (Humalog Kwikpen (Bkc)) 0 unit SC Q6 [facility]; Protocol Last Admin: 11/16/18 10:47 Dose: Not Given Lisinopril (Zestril) 10 mg PO DAILY [facility] Last Admin: 11/16/18 09:14 Dose: 10 mg Magnesium Hydroxide (Milk Of Magnesia) 30 ml PO DAILY PRN PRN PRN Reason: Constipation Ondansetron HCl (Zofran) 4 mg IV Q8H PRN PRN PRN Reason: NAUSEA/VOMITING Last Admin: 01/23/19 02:48 Dose: 4 mg Oxycodone HCl (Oxyir) 5 - 10 mg PO Q4H PRN PRN PRN Reason: SEVERE PAIN (6-10/10) Last Admin: 11/16/18 10:02 Dose: 5 mg Sodium Chloride () 5 - 15 ml IV UD PRN PRN Reason: SALINE FLUSH Last Admin: 11/15/18 23:47 Dose: 10 ml Temazepam (Restoril) 15 mg PO QHS PRN PRN PRN Reason: insomnia Medical Necessity - Tobacco Use Smoking Status: Former smoker Tobacco Use: Non-smoker Assessment/Plan All Active Problems (Last Reviewed 09/20/18 @ 14:08 by Zenaida Hines) Acute pancreatitis (Acute) Gastroenteritis (Acute) Hyperglycemia (Acute) 1. Acute pancreatitis still complains of generalised pain and abdominal pain has no tenderness on palpation. vomited once yesterday, but didnt vomit again overnight. will advance diet to soft diet today and see if he tolerates it. 2. Chronic pain syndrome patient complains of generalised pain; says he wants p ain meds on discharge says PCP and pain management doctor dont give him pain meds will consult Dr Guzman 3. Hypocalcemia: calcium is 8 today. will monitor. 4. Hypomagnesemia: resolved. Magnesium is 2.3 5. Elevated liver enzymes This is chronic.Hepatitis panel pending. has history of postive hepatitis C antibody 6. Hyponatremia:resolved. Na today is 137. 7. Diabetes mellitus poorly controlled. A1C is 12.5; was previously 12.9 soft diet on lantus 30IU qhs and ISS. Accuchecks ACHS 8. Non-anion gap acidosis Bicarb is down to 20 with anion gap of 8. Etiology of this is unclear. Will monitor closely with hydration and see if it resolves. 9. Hypokalemia: resolved. K is 3.9 today. 10. Hypertension: On lisinopril and hydralazine as needed. 11. Hyperlipidemia: On statin 12. GERD: on IV PPI DVT prophylaxis: lovenox Code Visit Inpatient E&M: 29504 [facility] Hosp L3
--- NOTE | 2018-11-16 12:20 | PN_ITS ---
Patient Problems: Active and Suspected Problems (Last Reviewed 09/20/18 @ 14:08 by Zenaida Hines) Acute pancreatitis (Acute) Subjective: Patient seen and examined. He complains of severe generalized pain. Patient wanted to know whether he would be given pain meds upon discharge, because his PCP and pain management doctor are not giving him scripts for pain meds. Patient got quite upset when I informed him to follow up with his PCP and pain mangement doctor for pain meds. Patient stated that he would write on the HCAHP score that physician refused to give him pain meds and left him in pain upon discharge. Patient stated he knew the law and knew his rights and therefore he knew that he had a right to pain medication. I stated to patient that I was not comfortable giving him pain medication upon discharge and that he should follow- up with his primary care doctor and pain management doctor. Patient stated that he had an appointment on 21 December and needed pain meds to last until then. I informed patient that he should follow-up with his primary care doctor in the interim for some pain medication prescription. Patient remained very upset and was getting quite agitated. Of note, patient has been requiring [id number] Dilaudid since admission. Review of his primary care doctor's notes shows that patient is suspected to have some opiate dependence and he also signed out AMA from the ED a few weeks ago because he was not given Dilaudid. I informed patient that I would consult pain management for further recommendation. Vitals/I&O's: Vital Signs Temp Pulse Resp BP Pulse Ox 97.4 F L 78 16 127/86 H 100 11/16/18 10:53 11/16/18 10:53 11/16/18 10:53 11/16/18 10:53 11/16/18 10:53 Oxygen Delivery Method Room Air Weight: 138 lb 7.205 oz Body Mass Index (BMI) 18.2 Finger Stick Blood Glucose 413 Intake and Output for Last 24 Hours 11/14/18 11/15/18 11/16/18 23:59 23:59 23:59 Intake Total 4363 / 4363 1098 / 1098 Output Total 2150 / 2150 Balance 2213 / 2213 1098 / 1098 General: Alert, Oriented x3, Cooperative, No apparent distress HEENT: Atraumatic, PERRLA, EOMI, Normocephalic Oral: Moist Mucosa Neck: Supple Lungs: Clear to auscultation, Normal air movement Cardiovascular: Regular rate, Regular Rhythm, Normal S1, Normal S2, No murmurs Abdomen: Bowel Sounds Present, Soft, Non-Distended, No Hepato-splenomegaly, - - minimal generalized abdominal tenderness Extremities: No clubbing, No cyanosis, No edema, Capillary Refill Less than 3 Seconds Skin: No rashes, No breakdown Musculoskeletal: No Tenderness to Palpation of Joints or Extremities Lymphatic: No Cervical, Supraclavicular, or Inguinal Adenopathy Neurological: Cranial nerves II-XII grossly intact Psych/Mental Status: Normal Affect, Alert and oriented to time, place, person, mood and affect Microbiology Past 72 Hours 11/14/18 17:35 Stool Enteric Bacteriology - Final 11/14/18 17:35 Stool C. difficile DNA Amplification - Final Laboratory Results 11/15/18 05:38: Hepatitis A IgM Ab Negative, Hepatitis A Ab Total Negative, Hep Bs Antigen Negative, Hep B Core Total Ab Negative, Hep B Core IgM Ab Negative, Hepatitis C Ab Confirm >11.0 H 11/15/18 17:15: POC Glucose 123 H 11/15/18 23:47: POC Glucose 160 H 11/16/18 05:53: POC Glucose 114 H 11/16/18 06:02: WBC 5.3, RBC 3.69 L, Hgb 11.9 L, Hct 33.5 L, MCV 90.8, MCH 32.2 H, MCHC 35.5, RDW 11.9, RDW Differential 38.3, Plt Count 142 L, MPV 10.0, Immature Gran % (Auto) 0.600, Neut % (Auto) 49.2, Lymph % (Auto) 38.2, [place] % (Auto) 9.3, Eos % (Auto) 2.3, Baso % (Auto) 0.4, Absolute Neuts (auto) 2.6, Absolute Lymphs (auto) 2.01, Total Counted Not Reportable 11/16/18 06:02: Sodium 137, Potassium 3.9, Chloride 109 H, Carbon Dioxide 20.0 L , Anion Gap 8, BUN 12, Creatinine 0.48 L, Estim Creat Clear Calc 159.91, Est GFR (MDRD) Af Amer 236, Est GFR (MDRD) Non-Af 195, BUN/Creatinine Ratio 25.1 H, Glucose 96, Calcium 8.0 L, Magnesium 2.3, Total Bilirubin 0.60, AST 113 H, ALT 120 H, Alkaline Phosphatase 66, Total Protein 7.1, Albumin 2.7 L, Globulin 4.4 H , Albumin/Globulin Ratio 0.6 L 11/16/18 10:45: POC Glucose 91 Current Medications Acetaminophen (Tylenol) 650 mg PO Q6H PRN PRN PRN Reason: Non-cardiac pain (mod-severe) Last Admin: 11/16/18 10:02 Dose: 650 mg Atorvastatin Calcium (Lipitor) 40 mg PO QHS [facility] Last Admin: 11/15/18 22:01 Dose: 40 mg Enoxaparin Sodium (Lovenox) 40 mg SC DAILY@1000 JANKI Last Admin: 11/16/18 09:15 Dose: 40 mg Hydralazine HCl (Apresoline Iv) 10 mg IV Q4H PRN PRN PRN Reason: SBP > 160 Hydromorphone HCl (Dilaudid Inj) 1 mg IV Q3H PRN PRN PRN Reason: SEVERE PAIN (6-1010) Last Admin: 11/16/18 10:46 Dose: 1 mg Pantoprazole Sodium 40 mg/ (Sodium Chloride) 110 mls @ 330 mls/hr IV Q12 [facility] Last Admin: 11/16/18 09:15 Dose: 330 mls/hr Sodium Chloride () 1,000 mls @ 100 mls/hr IV .Q10H [facility] Last Admin: 11/16/18 05:44 Dose: 100 mls/hr Insulin Glargine (Lantus (Bkc)) 30 units SC DAILY [facility] Last Admin: 11/16/18 09:15 Dose: 30 units Insulin Human Lispro (Humalog Kwikpen (Bkc)) 0 unit SC Q6 [facility]; Protocol Last Admin: 11/16/18 10:47 Dose: Not Given Lisinopril (Zestril) 10 mg PO DAILY [facility] Last Admin: 11/16/18 09:14 Dose: 10 mg Magnesium Hydroxide (Milk Of Magnesia) 30 ml PO DAILY PRN PRN PRN Reason: Constipation Ondansetron HCl (Zofran) 4 mg IV Q8H PRN PRN PRN Reason: NAUSEA/VOMITING Last Admin: 01/23/19 02:48 Dose: 4 mg Oxycodone HCl (Oxyir) 5 - 10 mg PO Q4H PRN PRN PRN Reason: SEVERE PAIN (6-10/10) Last Admin: 11/16/18 10:02 Dose: 5 mg Sodium Chloride () 5 - 15 ml IV UD PRN PRN Reason: SALINE FLUSH Last Admin: 11/15/18 23:47 Dose: 10 ml Temazepam (Restoril) 15 mg PO QHS PRN PRN PRN Reason: insomnia Medical Necessity - Tobacco Use Smoking Status: Former smoker Tobacco Use: Non-smoker Assessment/Plan All Active Problems (Last Reviewed 09/20/18 @ 14:08 by Zenaida Hines) Acute pancreatitis (Acute) Gastroenteritis (Acute) Hyperglycemia (Acute) 1. Acute pancreatitis * still complains of generalised pain and abdominal pain * has no tenderness on palpation. * vomited once yesterday, but didnt vomit again overnight. * will advance diet to soft diet today and see if he tolerates it. * 2. Chronic pain syndrome * patient complains of generalised pain; says he wants p ain meds on discharge * says PCP and pain management doctor dont give him pain meds * will consult Dr Guzman * 3. Hypocalcemia: calcium is 8 today. will monitor. 4. Hypomagnesemia: resolved. Magnesium is 2.3 5. Elevated liver enzymes * This is chronic.Hepatitis panel pending. * has history of postive hepatitis C antibody * 6. Hyponatremia:resolved. Na today is 137. * 7. Diabetes mellitus * poorly controlled. A1C is 12.5; was previously 12.9 * soft diet * on lantus 30IU qhs and ISS. * Accuchecks ACHS * * 8. Non-anion gap acidosis * Bicarb is down to 20 with anion gap of 8. Etiology of this is unclear. * Will monitor closely with hydration and see if it resolves. * 9. Hypokalemia: resolved. K is 3.9 today. 10. Hypertension: On lisinopril and hydralazine as needed. 11. Hyperlipidemia: On statin 12. GERD: on IV PPI DVT prophylaxis: lovenox Code Visit Inpatient E&M: 49152 Subs Hosp L3
[2018-11-16 14:08] VITALS: BP 121/83; PULSE 76; RESP 16; TEMP 36.6; O2SAT 99
[2018-11-16 16:26] LABS: Bedside Glucose 100 mg/dL (70-110)
[2018-11-16 20:30] VITALS: BP 134/84; PULSE 76; RESP 16; TEMP 36.6; O2SAT 98
[2018-11-16] MEDS: Atorvastatin Calcium 40 MG Tablet PO (22:40)
[2018-11-17] VITALS (13 sets, daily range): BP systolic 133–175; BP diastolic 78–111; PULSE 77–96; RESP 16–18; TEMP 36.3–36.7; O2SAT 98–100; BMI 18.2
--- NOTE | 2018-11-17 00:32 | NURSING ---
Addendum entered by Peri López Underation 11/17/18 01:48: rechecked blood sugar after OJ and snacks and had only come up to 73. Vanilla ice cream gotten for pt & blood sugar rechecked just now. Blood sugar now 144. Will continue to monitor. Original Note: Pt's blood sugar 72. [place] juice gotten for pt and pt states had just had a few bites of pie and a frozen ice. Will continue to monitor.
[2018-11-17] MEDS: HYDROmorphone 1 MG/ML Syringe IV ×7 (00:34→20:48)
[2018-11-17 00:46] LABS: Bedside Glucose 72 mg/dL (70-110)
[2018-11-17 01:11] LABS: Bedside Glucose 73 mg/dL (70-110)
[2018-11-17 01:51] LABS: Bedside Glucose 144 mg/dL (70-110)
[2018-11-17] MEDS: 0.45% Normal Saline 1,000 ML 100 ML IV (03:44)
[2018-11-17 05:59] LABS: Absolute Lymphocyte Count 1.27 X10^3/ul (0.83-4.51); Absolute Neutrophil Count 2.1 X10^3/uL (2.0-7.7); Basophil# 0.01 X10^3/uL; Basophil% 0.3 % (0-1); Eosinophil# 0.06 X10^3/uL; Eosinophils% 1.5 % (0-5); Hematocrit 30.9 % (40-54); Lymphocyte # 1.27 X10^3/ul (4.0); Mean Corp Hgb Conc 35.6 g/gl (32-36); Mean Corpuscular Hgb 32.2 pg (27.0-32.0); Mean Corpuscular Volume 90.4 fL (80-94); Mean Platelet Vol. 9.5 fl (6.2-12.0); Monocyte% 12.6 % (0-10); Neutrophil # 2.11 X10^3/uL (2.7-7.7); Neutrophil % 53.1 % (47-70); Platelet Count 125 K/mm3 (150-450); RBC Distribution Width CV 12.4 % (11.6-14.6); RBC Distribution Width SD 40.5 fl (35.1-43.9); Red Blood Count 3.42 M/mm3 (4.6-6.2)
[2018-11-17 06:07] LABS: POSITIVE COUNT NO; POSITIVE DIFFERENTIAL NO; POSITIVE MORPHOLOGY NO
[2018-11-17 06:26] LABS: ALB/GLOB Ratio 0.6 RATIO (0.9-2.4); AST(SGOT) 92 U/L (15-37); Alanine Aminotransfer ALT/SGPT 106 U/L (16-61); Albumin, Serum 2.5 g/dL (3.2-5.0); Alkaline Phosphatase 63 U/L (45-117); Anion Gap 5 (5-15); BUN 7 mg/dL (7-18); BUN/Creat Ratio 13.4 RATIO (10-20); Calcium,Total 7.6 mg/dL (8.5-10.1); Chloride 108 mmol/L (98-107); Creatinine, Serum 0.52 mg/dL (0.70-1.30); EST Glomerular Filtration Rate 176 mL/min (>60); Est Glom Filt Rate - Afr Amer 213 mL/min (>60); Estimated Creatinine Clearance 147.61 ml/min; Glucose 102 mg/dL (74-106); Magnesium 1.9 mg/dL (1.6-2.6); Potassium 3.7 mmol/L (3.5-5.1); Protein, Total 6.5 g/dL (6.4-8.2); Sodium Level 139 mmol/L (136-145)
[2018-11-17 07:00] LABS: Bedside Glucose 116 mg/dL (70-110)
[2018-11-17] MEDS: Ondansetron 4 MG/2 ML Vial IV ×2 (07:48→16:27)
[2018-11-17] MEDS: Lisinopril 10 MG Tablet PO (07:53)
[2018-11-17] MEDS: hydrALAZINE 20 MG/ML Vial 10 MG IV ×2 (09:57→20:47)
--- NOTE | 2018-11-17 10:53 | PCM.PN.HOSP ---
Patient Problems: Active and Suspected Problems (Last Reviewed 09/20/18 @ 14:08 by Zenaida Hines) Acute pancreatitis (Acute) Subjective: Patient seen and examined. He still complains of back pain and generalized abdominal pain. He was lying comfortably in bed at time of review. He denied any fever or chills, palpitations or dizziness, diarrhea vomiting. Review of systems otherwise negative. Pain management on board. MRI done yesterday showed spinal stenosis and he is due to have a pain shot today. Labs and vitals reviewed. Vitals/I&O's: Vital Signs Temp Pulse Resp BP Pulse Ox 97.4 F L 80 18 175/111 H 100 11/17/18 07:50 11/17/18 09:57 11/17/18 07:50 11/17/18 09:57 11/17/18 07:50 Oxygen Delivery Method Room Air Weight: 138 lb 7.205 oz Body Mass Index (BMI) 18.2 Finger Stick Blood Glucose 413 Intake and Output for Last 24 Hours 11/15/18 11/16/18 11/17/18 23:59 23:59 23:59 Intake Total 4363 / 4363 2404 / 2404 2100 / 2100 Output Total 2150 / 2150 1000 / 1000 Balance 2213 / 2213 2404 / 2404 1100 / 1100 General: Alert, Oriented x3, Cooperative, No apparent distress HEENT: Atraumatic, PERRLA, EOMI, Normocephalic Oral: Moist Mucosa Neck: Supple Lungs: Clear to auscultation, Normal air movement Cardiovascular: Regular rate, Regular Rhythm, Normal S1, Normal S2, No murmurs Abdomen: Bowel Sounds Present, Soft, Non-Distended, No Hepato-splenomegaly, - - minimal generalized abdominal tenderness Extremities: No clubbing, No cyanosis, No edema, Capillary Refill Less than 3 Seconds Skin: No rashes, No breakdown Musculoskeletal: No Tenderness to Palpation of Joints or Extremities Lymphatic: No Cervical, Supraclavicular, or Inguinal Adenopathy Neurological: Cranial nerves II-XII grossly intact Psych/Mental Status: Normal Affect, Alert and oriented to time, place, person, mood and affect Microbiology Past 72 Hours 11/14/18 17:35 Stool Enteric Bacteriology - Final 11/14/18 17:35 Stool C. difficile DNA Amplification - Final Laboratory Results 11/15/18 05:38: Hepatitis A IgM Ab Negative, Hepatitis A Ab Total Negative, Hep Bs Antigen Negative, Hep B Core Total Ab Negative, Hep B Core IgM Ab Negative, Hepatitis C Ab Confirm >11.0 H 11/16/18 10:45: POC Glucose 91 11/16/18 16:15: POC Glucose 100 11/17/18 00:30: POC Glucose 72 11/17/18 01:04: POC Glucose 73 11/17/18 01:46: POC Glucose 144 H 11/17/18 05:35: WBC 4.0 L, RBC 3.42 L, Hgb 11.0 L, Hct 30.9 L, MCV 90.4, MCH 32.2 H, MCHC 35.6, RDW 12.4, RDW Differential 40.5, Plt Count 125 L, MPV 9.5, Immature Gran % (Auto) 0.500, Neut % (Auto) 53.1, Lymph % (Auto) 32.0, [place] % (Auto) 12.6 H, Eos % (Auto) 1.5, Baso % (Auto) 0.3, Absolute Neuts (auto) 2.1, Absolute Lymphs (auto) 1.27, Total Counted Not Reportable 11/17/18 05:35: Sodium 139, Potassium 3.7, Chloride 108 H, Carbon Dioxide 26.0, Anion Gap 5, BUN 7, Creatinine 0.52 L, Estim Creat Clear Calc 147.61, Est GFR (MDRD) Af Amer 213, Est GFR (MDRD) Non-Af 176, BUN/Creatinine Ratio 13.4, Glucose 102, Calcium 7.6 L, Magnesium 1.9, Total Bilirubin 0.40, AST 92 H, ALT 106 H, Alkaline Phosphatase 63, Total Protein 6.5, Albumin 2.5 L, Globulin 4.0, Albumin/Globulin Ratio 0.6 L 11/17/18 06:40: POC Glucose 116 H Diagnostic Data Abdomen/Pelvis CT 11/14/18 18:26 IMPRESSION: Normal CT of the abdomen and pelvis. Electronically Signed: Gail Choi MD at 20:38 EST Tel , Service support , Lumbar Spine MRI 11/16/18 09:39 IMPRESSION: No acute fracture or other significant bony pathology Spinal stenosis at L4-5 and slightly more advanced at L5-S1 secondary to disc disease and facet arthropathy. Findings as above Electronically Signed: Jaime Rendon MD at 16:20 EST , Service support , Thoracic Spine MRI 11/16/18 09:39 IMPRESSION: Normal unenhanced MRI examination of the thoracic spine. Electronically Signed: Jaime Rendon MD at 16:15 EST , Service support , Current Medications Acetaminophen (Tylenol) 650 mg PO Q6H PRN PRN PRN Reason: Non-cardiac pain (mod-severe) Last Admin: 11/16/18 16:16 Dose: 650 mg Atorvastatin Calcium (Lipitor) 40 mg PO QHS [facility] Last Admin: 11/16/18 22:40 Dose: 40 mg Enoxaparin Sodium (Lovenox) 40 mg SC DAILY@1000 JANKI Last Admin: 11/16/18 09:15 Dose: 40 mg Hydralazine HCl (Apresoline Iv) 10 mg IV Q4H PRN PRN PRN Reason: SBP > 160 Last Admin: 11/17/18 09:57 Dose: 10 mg Hydromorphone HCl (Dilaudid Inj) 1 mg IV Q3H PRN PRN PRN Reason: SEVERE PAIN (6-10/10) Last Admin: 11/17/18 09:54 Dose: 1 mg Pantoprazole Sodium 40 mg/ (Sodium Chloride) 110 mls @ 330 mls/hr IV Q12 [facility] Last Admin: 11/17/18 07:52 Dose: 330 mls/hr Insulin Glargine (Lantus (Bkc)) 30 units SC DAILY [facility] Last Admin: 11/17/18 07:53 Dose: 30 units Insulin Human Lispro (Humalog Kwikpen (Bkc)) 0 unit SC Q6 [facility]; Protocol Last Admin: 11/17/18 06:42 Dose: Not Given Lisinopril (Zestril) 10 mg PO DAILY [facility] Last Admin: 11/17/18 07:53 Dose: 10 mg Magnesium Hydroxide (Milk Of Magnesia) 30 ml PO DAILY PRN PRN PRN Reason: Constipation Ondansetron HCl (Zofran) 4 mg IV Q8H PRN PRN PRN Reason: NAUSEA/VOMITING Last Admin: 11/17/18 07:48 Dose: 4 mg Oxycodone HCl (Oxyir) 5 - 10 mg PO Q4H PRN PRN PRN Reason: SEVERE PAIN (6-10/10) Last Admin: 11/16/18 16:16 Dose: 5 mg Sodium Chloride () 5 - 15 ml IV UD PRN PRN Reason: SALINE FLUSH Last Admin: 11/15/18 23:47 Dose: 10 ml Temazepam (Restoril) 15 mg PO QHS PRN PRN PRN Reason: insomnia Medical Necessity - Tobacco Use Smoking Status: Former smoker Tobacco Use: Non-smoker Assessment/Plan All Active Problems (Last Reviewed 09/20/18 @ 14:08 by Zenaida Hines) Acute pancreatitis (Acute) Gastroenteritis (Acute) Hyperglycemia (Acute) 1. Acute pancreatitis still complains of mild generalised abdominal pain. refused abdominal examination today tolerated soft diet yesterday and was advanced to regular diet will monitor IV zofran prn on IV dilaudid for pain 2. Chronic pain syndrome pain management on board MRI of thoracic and lumbar spine showed: spinal stenosis at L4-5 and slightly more advanced at L5-S1 due to disc disease and facet arthropathy to have pain shot by Dr Guzman today 3. Hypocalcemia: calcium is 7.6 today. Will put on oral calcium tablets. 4. Hypomagnesemia: resolved. 5. Elevated liver enzymes This is chronic. hepatitis C antibodies elevated. to follow up with GI doctor on discharge 6. Hyponatremia:resolved. 7. Diabetes mellitus poorly controlled. A1C is 12.5; was previously 12.9 soft diet on lantus 30IU qhs and ISS. Accuchecks ACHS 8. Non-anion gap acidosis: resolved. bicarb is up to 26 today. 9. Hypokalemia: resolved. 10. Hypertension: On lisinopril and hydralazine as needed. 11. Hyperlipidemia: On statin 12. GERD: on IV PPI DVT prophylaxis: lovenox Code Visit Inpatient E&M: [id number] Subs Hosp L2
--- NOTE | 2018-11-17 10:59 | PN_ITS ---
Patient Problems: Active and Suspected Problems (Last Reviewed 09/20/18 @ 14:08 by Zenaida Hines) Acute pancreatitis (Acute) Subjective: Patient seen and examined. He still complains of back pain and generalized abdominal pain. He was lying comfortably in bed at time of review. He denied any fever or chills, palpitations or dizziness, diarrhea vomiting. Review of systems otherwise negative. Pain management on board. MRI done yesterday showed spinal stenosis and he is due to have a pain shot today. Labs and vitals reviewed. Vitals/I&O's: Vital Signs Temp Pulse Resp BP Pulse Ox 97.4 F L 80 18 175/111 H 100 11/17/18 07:50 11/17/18 09:57 11/17/18 07:50 11/17/18 09:57 11/17/18 07:50 Oxygen Delivery Method Room Air Weight: 138 lb 7.205 oz Body Mass Index (BMI) 18.2 Finger Stick Blood Glucose 413 Intake and Output for Last 24 Hours 11/15/18 11/16/18 11/17/18 23:59 23:59 23:59 Intake Total 4363 / 4363 2404 / 2404 2100 / 2100 Output Total 2150 / 2150 1000 / 1000 Balance 2213 / 2213 2404 / 2404 1100 / 1100 General: Alert, Oriented x3, Cooperative, No apparent distress HEENT: Atraumatic, PERRLA, EOMI, Normocephalic Oral: Moist Mucosa Neck: Supple Lungs: Clear to auscultation, Normal air movement Cardiovascular: Regular rate, Regular Rhythm, Normal S1, Normal S2, No murmurs Abdomen: Bowel Sounds Present, Soft, Non-Distended, No Hepato-splenomegaly, - - minimal generalized abdominal tenderness Extremities: No clubbing, No cyanosis, No edema, Capillary Refill Less than 3 Seconds Skin: No rashes, No breakdown Musculoskeletal: No Tenderness to Palpation of Joints or Extremities Lymphatic: No Cervical, Supraclavicular, or Inguinal Adenopathy Neurological: Cranial nerves II-XII grossly intact Psych/Mental Status: Normal Affect, Alert and oriented to time, place, person, mood and affect Microbiology Past 72 Hours 11/14/18 17:35 Stool Enteric Bacteriology - Final 11/14/18 17:35 Stool C. difficile DNA Amplification - Final Laboratory Results 11/15/18 05:38: Hepatitis A IgM Ab Negative, Hepatitis A Ab Total Negative, Hep Bs Antigen Negative, Hep B Core Total Ab Negative, Hep B Core IgM Ab Negative, Hepatitis C Ab Confirm >11.0 H 11/16/18 10:45: POC Glucose 91 11/16/18 16:15: POC Glucose 100 11/17/18 00:30: POC Glucose 72 11/17/18 01:04: POC Glucose 73 11/17/18 01:46: POC Glucose 144 H 11/17/18 05:35: WBC 4.0 L, RBC 3.42 L, Hgb 11.0 L, Hct 30.9 L, MCV 90.4, MCH 32.2 H, MCHC 35.6, RDW 12.4, RDW Differential 40.5, Plt Count 125 L, MPV 9.5, Immature Gran % (Auto) 0.500, Neut % (Auto) 53.1, Lymph % (Auto) 32.0, Mineral % (Auto) 12.6 H, Eos % (Auto) 1.5, Baso % (Auto) 0.3, Absolute Neuts (auto) 2.1, Absolute Lymphs (auto) 1.27, Total Counted Not Reportable 11/17/18 05:35: Sodium 139, Potassium 3.7, Chloride 108 H, Carbon Dioxide 26.0, Anion Gap 5, BUN 7, Creatinine 0.52 L, Estim Creat Clear Calc 147.61, Est GFR (MDRD) Af Amer 213, Est GFR (MDRD) Non-Af 176, BUN/Creatinine Ratio 13.4, Glucose 102, Calcium 7.6 L, Magnesium 1.9, Total Bilirubin 0.40, AST 92 H, ALT 106 H, Alkaline Phosphatase 63, Total Protein 6.5, Albumin 2.5 L, Globulin 4.0, Albumin/Globulin Ratio 0.6 L 11/17/18 06:40: POC Glucose 116 H Diagnostic Data Abdomen/Pelvis CT 11/14/18 18:26 IMPRESSION: Normal CT of the abdomen and pelvis. Electronically Signed: Gail Choi MD at 20:38 EST Tel , Service support , Lumbar Spine MRI 11/16/18 09:39 IMPRESSION: No acute fracture or other significant bony pathology Spinal stenosis at L4-5 and slightly more advanced at L5-S1 secondary to disc disease and facet arthropathy. Findings as above Electronically Signed: Jaime Rendon MD at 16:20 EST , Service support , Thoracic Spine MRI 11/16/18 09:39 IMPRESSION: Normal unenhanced MRI examination of the thoracic spine. Electronically Signed: Jaime Rendon MD at 16:15 EST , Service support , Current Medications Acetaminophen (Tylenol) 650 mg PO Q6H PRN PRN PRN Reason: Non-cardiac pain (mod-severe) Last Admin: 11/16/18 16:16 Dose: 650 mg Atorvastatin Calcium (Lipitor) 40 mg PO QHS [facility] Last Admin: 11/16/18 22:40 Dose: 40 mg Enoxaparin Sodium (Lovenox) 40 mg SC DAILY@1000 JANKI Last Admin: 11/16/18 09:15 Dose: 40 mg Hydralazine HCl (Apresoline Iv) 10 mg IV Q4H PRN PRN PRN Reason: SBP > 160 Last Admin: 11/17/18 09:57 Dose: 10 mg Hydromorphone HCl (Dilaudid Inj) 1 mg IV Q3H PRN PRN PRN Reason: SEVERE PAIN (6-10/10) Last Admin: 11/17/18 09:54 Dose: 1 mg Pantoprazole Sodium 40 mg/ (Sodium Chloride) 110 mls @ 330 mls/hr IV Q12 [facility] Last Admin: 11/17/18 07:52 Dose: 330 mls/hr Insulin Glargine (Lantus (Bkc)) 30 units SC DAILY [facility] Last Admin: 11/17/18 07:53 Dose: 30 units Insulin Human Lispro (Humalog Kwikpen (Bkc)) 0 unit SC Q6 [facility]; Protocol Last Admin: 11/17/18 06:42 Dose: Not Given Lisinopril (Zestril) 10 mg PO DAILY [facility] Last Admin: 11/17/18 07:53 Dose: 10 mg Magnesium Hydroxide (Milk Of Magnesia) 30 ml PO DAILY PRN PRN PRN Reason: Constipation Ondansetron HCl (Zofran) 4 mg IV Q8H PRN PRN PRN Reason: NAUSEA/VOMITING Last Admin: 11/17/18 07:48 Dose: 4 mg Oxycodone HCl (Oxyir) 5 - 10 mg PO Q4H PRN PRN PRN Reason: SEVERE PAIN (6-10/10) Last Admin: 11/16/18 16:16 Dose: 5 mg Sodium Chloride () 5 - 15 ml IV UD PRN PRN Reason: SALINE FLUSH Last Admin: 11/15/18 23:47 Dose: 10 ml Temazepam (Restoril) 15 mg PO QHS PRN PRN PRN Reason: insomnia Medical Necessity - Tobacco Use Smoking Status: Former smoker Tobacco Use: Non-smoker Assessment/Plan All Active Problems (Last Reviewed 09/20/18 @ 14:08 by Zenaida Hines) Acute pancreatitis (Acute) Gastroenteritis (Acute) Hyperglycemia (Acute) 1. Acute pancreatitis * still complains of mild generalised abdominal pain. * refused abdominal examination today * tolerated soft diet yesterday and was advanced to regular diet * will monitor * IV zofran prn * on IV dilaudid for pain * * 2. Chronic pain syndrome * pain management on board * MRI of thoracic and lumbar spine showed: spinal stenosis at L4-5 and slightly more advanced at L5-S1 due to disc disease and facet arthropathy * to have pain shot by Dr Guzman today * 3. Hypocalcemia: calcium is 7.6 today. Will put on oral calcium tablets. 4. Hypomagnesemia: resolved. 5. Elevated liver enzymes * This is chronic. * hepatitis C antibodies elevated. * to follow up with GI doctor on discharge * * 6. Hyponatremia:resolved. * 7. Diabetes mellitus * poorly controlled. A1C is 12.5; was previously 12.9 * soft diet * on lantus 30IU qhs and ISS. * Accuchecks ACHS * * 8. Non-anion gap acidosis: resolved. bicarb is up to 26 today. * * 9. Hypokalemia: resolved. 10. Hypertension: On lisinopril and hydralazine as needed. 11. Hyperlipidemia: On statin 12. GERD: on IV PPI DVT prophylaxis: lovenox Code Visit Inpatient E&M: 86331 Subs Hosp L2
[2018-11-17 11:45] LABS: Bedside Glucose 95 mg/dL (70-110)
--- NOTE | 2018-11-17 12:11 | NURSING ---
REPORT CALLED TO [facility] FOR SURGERY--SPOKE WITH WODO WILD
[2018-11-17 13:16] LABS: Bedside Glucose 86 mg/dL (70-110)
[2018-11-17] MEDS: Triamcinolone Acetonide 40 MG/ML Vial (13:23)
[2018-11-17] MEDS: 0.9% NaCl Peripheral Flush Adult/Peds IV ×5 (14:34→20:50)
--- NOTE | 2018-11-17 14:35 | CASEMGMT ---
RN CM NOTE: Call placed to [facility]. They were made aware anticipated discharge is tomorrow 11/18/18. Diaz KAHN RN CM
[2018-11-17 16:26] LABS: Bedside Glucose 134 mg/dL (70-110)
[2018-11-17] MEDS: oxyCODONE 5 MG Tablet PO ×2 (16:34→22:22)
[2018-11-17] MEDS: Atorvastatin Calcium 40 MG Tablet PO (21:00)
[2018-11-17] MEDS: Insulin Lispro 100 UNIT/ML INSULN.PEN SC (21:04)
[2018-11-17 22:50] LABS: Bedside Glucose 317 mg/dL (70-110)
[2018-11-18] MEDS: HYDROmorphone 1 MG/ML Syringe IV ×5 (00:04→13:43)
[2018-11-18] MEDS: 0.9% NaCl Peripheral Flush Adult/Peds IV ×5 (00:04→13:43)
[2018-11-18 02:25] VITALS: BP 140/97; PULSE 94; RESP 18; TEMP 36.8; O2SAT 99
[2018-11-18] MEDS: Insulin Lispro 100 UNIT/ML INSULN.PEN SC ×2 (06:38→12:16)
[2018-11-18 06:47] LABS: Bedside Glucose 283 mg/dL (70-110)
[2018-11-18 08:25] VITALS: BP 143/78; PULSE 90; RESP 18; TEMP 36.8; O2SAT 100
--- NOTE | 2018-11-18 08:32 | NURSING ---
ASSESSED/MEDICATED PER CAR WASH ATTENDANT NURSE
[2018-11-18] MEDS: Lisinopril 10 MG Tablet PO (09:05)
[2018-11-18] MEDS: Enoxaparin 40 MG/0.4 ML Syringe SC (09:05)
--- NOTE | 2018-11-18 10:01 | DCINST_ITS ---
- Discharge Diagnoses Current Active Problems: Current Active and Chronic Problems (Last Reviewed 09/20/18 @ 14:08 by Zenaida Hines) Acute pancreatitis (Acute) HLD (hyperlipidemia) (Chronic) Hepatitis C antibody positive in blood (Chronic) acute on chronic back pain due to lumbar stenosis You will use the following diet at home:: Calorie/Carbohydrate Controlled (specify 1200, 1400, etc) - 1800 Your food should be the consistency of: Regular Your liquids should be the consistency of: Regular/Thin Discharge Activity: Return to Normal Activity Call your doctor if you observe: Uncontrolled pain Instructions: Discharge Instructions for Acute Pancreatitis, Causes of Lumbar (Low Back) Pain Allergies/Adverse Reactions: Allergies morphine Allergy (Verified 11/14/18 16:48) headaches pt states gets very bad headaches from morphine fentanyl Adverse Reaction (Verified 11/14/18 16:48) Pt didn't like how it made him feel PT STATES HE DOES NOT LIKE HOW IT MAKES HIM FEEL. ketorolac [From Toradol] Adverse Reaction (Verified 11/14/18 16:48) Other Medications to take at Discharge insulin glargine 100 unit-lixisenatide 33 mcg/mL subcutaneous pen 30 unit SC DAILY ml 08/18/18 lisinopril 10 mg tablet 10 mg PO DAILY #90 tab 10/04/18 Atorvastatin Calcium 40 mg PO DAILY 11/14/18 Insulin Lispro [Humalog Kwikpen] 10 unit SC TIDCM 11/14/18 Primary Care Physician: Guido Miller MD [Primary Care Provider] - Please follow up with your Primary Care Physician in: one week Test Results: Test results from this visit will be discussed in further detail at your follow- up appointment, if applicable. Please Follow Up With: Jaron Guzman MD When: 2 WEEKS Proposed Discharge Date: 11/18/18
--- NOTE | 2018-11-18 10:03 | PCM.DC.SUM ---
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 Electronically Signed: Gail Choi MD at 20:38 EST Tel , Service support , Lumbar Spine MRI 11/16/18 09:39 IMPRESSION: No acute fracture or other significant bony pathology Spinal stenosis at L4-5 and slightly more advanced at L5-S1 secondary to disc disease and facet arthropathy. Findings as above Electronically Signed: Jaime Rendon MD at 16:20 EST , Service support , Thoracic Spine MRI 11/16/18 09:39 IMPRESSION: Normal unenhanced MRI examination of the thoracic spine. Electronically Signed: Jaime Rendon MD at 16:15 EST , Service support , Operations: None Summary of Care Provided: The patient is a 53 year old M with an extensive PMH as listed. He was admitted with a complaint of worsening generalised abdominal pain, mainly in the periumbilical and umbilical region, with associated diarrhea. Lipase was 888a dn CT abdomen pelvis showed no acute intra-abdominal process. He had previously been seen in [facility] ED on 11/08/18 with a complaitn of abdominal pain and back discomfort, due to spinal stenosis and radiculopathy. He left AMA because he want given dilaudid. During this admission, he was admitted and managed for acute pancreatitis and back pain due to spinal stenosis. He was hydrated with IV fluids and initially n.p.o. but was successfully transitioned to oral diet. Back pain however still persisted and pain management was consulted. MRI ordered showed spinal stenosis at L4 on 5 and is slightly more advanced at L5-S1 secondary to disc disease and facet arthropathy. He had a lumbar epidural steroid injection for pain done by Dr. Guzman on 11/16/18. Of note, patient's A1C 12.5; review of PCP's notes showed that pateint's insulin dosage had tammie adjusted but he had been noncompliant. during admission was Patient remained stable and was discharged home on 11/18/2018. He is to follow-up with his primary care doctor and pain management doctor. Patient seen and examined prior to discharge. Back pain was better but he was concerned that it would not last and wanted pain medications. I informed patient that I was not comfortable giving him any prescription for pain meds and encouraged him to follow-up with Dr. Guzman and his primary care doctor. Abdominal pain had also resolved. He denied any fever chills, cough or chest pain shortness of breath, abdominal pain, diarrhea vomiting. Review of systems otherwise negative. Labs and vitals reviewed. Home medication reviewed and reconciled. o/e; Vital Signs Height 6 ft 1 in Weight: 138 lb 7.205 oz Weight in Pounds 138.5 lbs Pulse Ox 100 Temperature 98.2 F Pulse Rate 90 Respiratory Rate 18 Blood Pressure [BP] 175/111 Blood Pressure 143/78 Blood Pressure Position [BP] Semi-Fowlers Blood Pressure Position Semi-Fowlers [] General: Alert, Oriented x3, Cooperative, No apparent distress HEENT: Atraumatic, PERRLA, EOMI, Normocephalic Oral: Moist Mucosa Neck: Supple Lungs: Clear to auscultation, Normal air movement Cardiovascular: Regular rate, Regular Rhythm, Normal S1, Normal S2, No murmurs Abdomen: Bowel Sounds Present, Soft, Non-Distended, No Hepato-splenomegaly, - - refused abdominal examination Extremities: No clubbing, No cyanosis, No edema, Capillary Refill Less than 3 Seconds Skin: No rashes, No breakdown Musculoskeletal: No Tenderness to Palpation of Joints or Extremities Lymphatic: No Cervical, Supraclavicular, or Inguinal Adenopathy Neurological: Cranial nerves II-XII grossly intact Psych/Mental Status: Normal Affect, Alert and oriented to time, place, person, mood and affect Plan as discussed above. - Physical Exam Vital Signs Temp Pulse Resp BP Pulse Ox 98.2 F 90 18 143/78 H 100 11/18/18 08:25 11/18/18 08:25 11/18/18 08:25 11/18/18 08:25 11/18/18 08:25 Oxygen Delivery Method Room Air Weight: 138 lb 7.205 oz Body Mass Index (BMI) 18.2 Finger Stick Blood Glucose 413 Intake and Output for Last 24 Hours 11/16/18 11/17/18 11/18/18 23:59 23:59 23:59 Intake Total 2404 / 2404 3421 / 3421 1496 / 1496 Output Total 2950 / 2950 900 / 900 Balance 2404 / 2404 471 / 471 596 / 596 Microbiology Past 72 Hours 11/14/18 17:35 Enteric Bacteriology - Final Stool POC Glucose 11/18/18 11/17/18 11/17/18 06:38 21:03 16:20 POC Glucose 283 H 317 H 134 H 11/17/18 11/17/18 13:10 11:09 POC Glucose 86 95 Discharge Diet: 1800 Calorie Control Diet Discharge Activity: Return to Normal Activity Call your doctor if you observe: Uncontrolled pain Home Medications: Medications to take at Discharge insulin glargine 100 unit-lixisenatide 33 mcg/mL subcutaneous pen 30 unit SC DAILY ml 08/18/18 lisinopril 10 mg tablet 10 mg PO DAILY #90 tab 10/04/18 Atorvastatin Calcium 40 mg PO DAILY 11/14/18 Insulin Lispro [Humalog Kwikpen] 10 unit SC TIDCM 11/14/18 Primary Care Physician: Guido Miller MD [Primary Care Provider] - Please follow up with your Primary Care Physician in: one week Please Follow Up With: Jaron Guzman MD When: 2 WEEKS Patient Instructions: Causes of Lumbar (Low Back) Pain, Discharge Instructions for Acute Pancreatitis Disposition: Home Minutes spent on discharge:: 40 Patient Condition:: Stable Medical Necessity - Tobacco Use Smoking Status: Former smoker Tobacco Use: Non-smoker Meaningful Use Info Meaningful Use Diagnoses (Choose all that apply): None applicable Code Visit Inpatient E&M: 37770 Disch Hosp
[2018-11-18 13:42] VITALS: BP 143/91; PULSE 96; RESP 18; TEMP 36.8; O2SAT 99
[2018-11-18 14:06] VITALS: BP 143/91; PULSE 96; RESP 18; TEMP 36.8; O2SAT 99
[2018-11-18 16:31] LABS: Bedside Glucose 303 mg/dL (70-110)
--- NOTE | 2018-11-21 13:11 | CASEMGMT ---
WOOD CM DC PHONE CALL DC DATE: 11/18/18 DC DISPOSITION: Home LACE/STRATA: 07/02 Attempted to call via cell phone. No answer. Tracy RON RN ACM
== END 2018-11-18 14:03 | disposition home or self-care (01) | DRG 282 ==
LOC: ED 18:43 → MS3 22:15
PROVIDERS: Anesthesiology Pain Medicine; Admitting Provider Family Medicine; Emergency Provider Emergency Medicine; Family Provider Internal Medicine; PCP Internal Medicine; Visit Provider Student in an Organized Health Care Education/Training Program
PROC: 3E0S3BZ Introduction of Anesthetic Agent into Epidural Space, Percutaneous Approach (ICD-10-PCS; CPT 62322; principal; 2018-11-17 12:55)
DX: K85.90 Acute pancreatitis without necrosis or infection, unspecified (principal); E11.65 Type 2 diabetes mellitus with hyperglycemia; E87.1 Hypo-osmolality and hyponatremia; G89.4 Chronic pain syndrome; E78.5 Hyperlipidemia, unspecified; I10 Essential (primary) hypertension; E43 Unspecified severe protein-calorie malnutrition; Z68.1 Body mass index [BMI] 19.9 or less, adult; M48.061 Spinal stenosis, lumbar region without neurogenic claudication; Z87.891 Personal history of nicotine dependence
CPT/HCPCS: 36415; 64483; 72146; 72148; 74177; 80053; 80061; 80320; 82962; 83036; 83605; 83690; 83735; 84100; 85025; 86703; 86704; 86705; 86706; 86708; 86709; 86803; 87177; 87209; 87340; 87493; 87506; 97802; 99284; J7030; J7120; Q9967; A4216; G0480; J0610; J2405

== ENCOUNTER 2019-01-11 10:00 | Emergency (ER) | payer MEDICAID, SELFPAY ==
[2019-01-06 14:25] VITALS: BMI 18.2
[2019-01-11 10:01] VITALS: BP 137/77; PULSE 69; RESP 16; TEMP 36.4; O2SAT 100; BMI 18.4
--- NOTE | 2019-01-11 10:17 | ED.VISSUMM ---
- ER Visit Summary Date of Service: 01/11/19 Chief Complaint: Right foot pain History of Present Illness: The patient is a 53 M who presents with worsening pain in his right foot over the past month. Patient states that his toenail on his great toe has been falling off. Patient states that some of his other digits appear to be black. Patient admits to increasing pain and sensitivity in his toes. Patient denies any specific trauma or injury. Patient states the pain is worse with movement and ambulation. Patient admits to some weakness in his legs. Patient denies any paresthesias. Patient also admits to worsening of his chronic low back pain. Patient states he has a history of spinal stenosis. Physical Examination: Vital signs are stable. Patient is afebrile. Patient is in no acute distress. Musculoskeletal exam reveals tenderness over the digits of the right foot. Sensation was intact to light touch in all digits. Capillary refill was less than 2 seconds in all digits. Pedal pulses are equal bilaterally. There are no deformities noted. There is some bleeding of the nailbed of the right great toe. Test Results: X-rays of the right foot were obtained. There is no evidence of osteomyelitis. CBC and basic metabolic profile was obtained. White blood cell count was normal. Glucose was elevated at 283. Emergency Department Course and Treatment: Patient was given Tylenol here. Patient was given a dose of Ancef. Patient states he had no relief of his pain with the Tylenol. Patient was given 1 dose of [place] here. Xeroform gauze dressing was applied to the right great toe. Patient was advised that he does not have any evidence of osteomyelitis. His toes do not appear necrotic. He has good capillary refill in his toes. He has good sensation in his toes. Patient was advised that this may be a diabetic neuropathy. Patient was instructed to follow-up with his primary care physician and jet ski mechanic in 3-5 days. Patient understood and was agreeable with the plan. All questions were answered. Disposition: Discharge home Impression: Neuropathy right foot This note was generated with [employer] software. It may contain incorrect words, spelling, and punctuation that were not noted in review of the chart prior to signing ED Disposition - Plan for ED Patient: Disposition: Home or Assisted Living Diagnosis: Neuropathy of right foot Instructions: ED Neuropathy Peripheral Referrals: Guido Miller MD [Primary Care Provider] - 3-5 Days
--- NOTE | 2019-01-11 10:23 | ED.DCSUM_ITS ---
- ER Visit Summary Date of Service: 01/11/19 Chief Complaint: Right foot pain History of Present Illness: The patient is a 53 M who presents with worsening pain in his right foot over the past month. Patient states that his toenail on his great toe has been falling off. Patient states that some of his other digits appear to be black. Patient admits to increasing pain and sensitivity in his toes. Patient denies any specific trauma or injury. Patient states the pain is worse with movement and ambulation. Patient admits to some weakness in his legs. Patient denies any paresthesias. Patient also admits to worsening of his chronic low back pain. Patient states he has a history of spinal stenosis. Physical Examination: Vital signs are stable. Patient is afebrile. Patient is in no acute distress. Musculoskeletal exam reveals tenderness over the digits of the right foot. Sensation was intact to light touch in all digits. Capillary refill was less than 2 seconds in all digits. Pedal pulses are equal bilaterally. There are no deformities noted. There is some bleeding of the nailbed of the right great toe. Test Results: X-rays of the right foot were obtained. There is no evidence of osteomyelitis. CBC and basic metabolic profile was obtained. White blood cell count was normal. Glucose was elevated at 283. Emergency Department Course and Treatment: Patient was given Tylenol here. Patient was given a dose of Ancef. Patient states he had no relief of his pain with the Tylenol. Patient was given 1 dose of [place] here. Xeroform gauze dressing was applied to the right great toe. Patient was advised that he does not have any evidence of osteomyelitis. His toes do not appear necrotic. He has good capillary refill in his toes. He has good sensation in his toes. Patient was advised that this may be a diabetic neuropathy. Patient was instructed to follow-up with his primary care physician and residential driver in 3-5 days. Patient understood and was agreeable with the plan. All questions were answered. Disposition: Discharge home Impression: Neuropathy right foot This note was generated with [employer] software. It may contain incorrect words, spelling, and punctuation that were not noted in review of the chart prior to signing ED Disposition - Plan for ED Patient: Disposition: Home or Assisted Living Diagnosis: Neuropathy of right foot Instructions: ED Neuropathy Peripheral Referrals: Guido Miller MD [Primary Care Provider] - 3-5 Days
[2019-01-11] MEDS: Acetaminophen 500 MG Tablet 1000 MG PO (10:33)
--- NOTE | 2019-01-11 10:45 | RAD_ITS ---
STUDY: X-RAY - RIGHT FOOT CLINICAL: Male, 53 years old. Great toe pain TECHNIQUE: 3 view(s) of the foot. COMPARISON: None FINDINGS: No acute fracture or dislocation. Normal mineralization. No significant degenerative changes. No evidence of significant soft tissue swelling RAD/Foot min 3 Views IMPRESSION: No acute finding Electronically Signed: Ajit Damon DO at 11:01 EDT Tel , Service support ,
[2019-01-11 10:47] LABS: Absolute Lymphocyte Count 1.39 X10^3/ul (0.83-4.51); Absolute Neutrophil Count 2.9 X10^3/uL (2.0-7.7); Basophil# 0.02 X10^3/uL; Basophil% 0.4 % (0-1); Eosinophil# 0.04 X10^3/uL; Eosinophils% 0.8 % (0-5); Hematocrit 36.8 % (40-54); Hemoglobin 12.9 g/dl (13.0-16.5); Lymphocyte # 1.39 X10^3/ul (4.0); Mean Corp Hgb Conc 35.1 g/gl (32-36); Mean Corpuscular Hgb 32.7 pg (27.0-32.0); Mean Corpuscular Volume 93.2 fL (80-94); Mean Platelet Vol. 9.8 fl (6.2-12.0); Monocyte# 0.72 X10^3/uL; Neutrophil % 56.2 % (47-70); POSITIVE COUNT NO; POSITIVE DIFFERENTIAL NO; POSITIVE MORPHOLOGY NO; Platelet Count 181 K/mm3 (150-450); RBC Distribution Width CV 12.8 % (11.6-14.6); RBC Distribution Width SD 43.4 fl (35.1-43.9); Red Blood Count 3.95 M/mm3 (4.6-6.2); White Blood Count 5.2 K/mm3 (4.4-11.0)
[2019-01-11 10:57] LABS: Anion Gap 6 (5-15); BUN 9 mg/dL (7-18); BUN/Creat Ratio 11.8 RATIO (10-20); Calcium,Total 8.5 mg/dL (8.5-10.1); Chloride 99 mmol/L (98-107); Creatinine, Serum 0.76 mg/dL (0.70-1.30); EST Glomerular Filtration Rate 114 mL/min (>60); Est Glom Filt Rate - Afr Amer 138 mL/min (>60); Estimated Creatinine Clearance 102.12 ml/min; Glucose 283 mg/dL (74-106); Potassium 4.2 mmol/L (3.5-5.1); Sodium Level 135 mmol/L (136-145)
[2019-01-11] MEDS: Cefazolin 1 GM/50 ML BAG IV (11:05)
[2019-01-11] MEDS: HYDROcodone Bitartrate/Apap 5/325 Tablet PO (11:45)
== END 2019-01-11 11:57 | disposition home or self-care (01) ==
PROVIDERS: Emergency Provider Emergency Medicine; Family Provider Internal Medicine; PCP Internal Medicine
DX: G62.9 Polyneuropathy, unspecified (principal); E11.9 Type 2 diabetes mellitus without complications; Z79.4 Long term (current) use of insulin
CPT/HCPCS: 73630; 80048; 85025; 96365; 99284

== ENCOUNTER 2019-01-22 15:17 | Emergency (ER) | payer MEDICAID, SELFPAY ==
[2019-01-22 15:25] VITALS: BP 150/100; PULSE 90; RESP 18; TEMP 37.2; O2SAT 97; BMI 18.4
--- NOTE | 2019-01-22 15:28 | ED.RN ---
pt unhappy with this rn because dr not in room as pt states he is in pain. pt states unable to take pain medication other then smithaudid
--- NOTE | 2019-01-22 15:41 | CT_ITS ---
STUDY: CT FACIAL BONES WITHOUT CONTRAST REASON FOR EXAM: Male, 53 years old. Trauma, left jaw pain RADIATION DOSAGE (If Supplied By Facility): CTDIvol = ( 29.38 ) mGy, DLP = ( 804.57 ) mGycm TECHNIQUE: The patient was scanned in a multi detector CT scanner. Sagittal and coronal images were reconstructed. Individualized dose optimization techniques were used for this CT. COMPARISON: None. FINDINGS: Normal soft tissue structures. Normal orbital dumas and orbital contents. Normal nasal bones and anterior nasal spine. Normal facial bones. There is no demonstrated fracture. There are several small polypoid defects of the anterior left maxillary sinus. CT/Sinus/Facial Bone IMPRESSION: Several small polypoid defects of the anterior left maxillary sinus consistent with mucoid retention cysts. There is no evidence of fracture. The mandible appears intact. Electronically Signed: Tor Chand MD at 17:56 EDT , Service support ,
--- NOTE | 2019-01-22 15:49 | ED.DCSUM_ITS ---
History of Present Illness Chief Complaint: Back Informant: Patient Onset: Today - 1h [employer]ASH [employer] Context: Sudden Onset - fell getting into the bathtub, hit left face/jaw on tub. Quality: sore/ache Location: left face/jaw Current Severity: Severe Maximum Severity: Severe Worsened by: moving jaw. palpation. Relieved by: remaining still Associated Symptoms: no diplopia. no facial numbness. no headache or LOC. Narrative: Patient presents telling nursing he has multiple complaints, such as dysphagia, abdominal pain, chronic nausea, back pain with sciatica bilaterally. He states he has not been able to swallow anything solid for months. He has been able to swallow liquids. He states he was supposed to get a phone call from someone to do an upper GI this past week but nobody called him so he does not have it scheduled but is supposed to get it. He also states that this week he is scheduled to have surgery on his back from Dr. Ga. He states his diffuse abdominal discomfort is off and on, chronic for multiple months, and no different today. He states his back is no different today. He states that he was getting into the tub to soak because he has pain everywhere and in doing so, he slipped and hit his jaw on the tub. He states he called 911 to be, evaluated for this injury today, however he is asking nurses for Dilaudid and demanding to see a doctor immediately during triage. He states he has allergies to morphine and fentanyl and can only take Dilaudid. He is asking to be treated for all of his symptoms. - Past Medical History (1) Dysphagia Status: Chronic (2) Chronic back pain Status: Chronic (3) HLD (hyperlipidemia) Status: Chronic (4) Hepatitis C antibody positive in blood Status: Chronic (5) Hypertension Status: Chronic (6) Type 2 diabetes mellitus Status: Chronic (7) Ulcer of left great toe due to diabetes mellitus Status: Chronic Past Medical History - Allergies and Home Meds Allergies/Adverse Reactions: Allergies morphine Allergy (Verified 01/11/19 10:29) headaches pt states gets very bad headaches from morphine fentanyl Adverse Reaction (Verified 01/11/19 10:29) Pt didn't like how it made him feel PT STATES HE DOES NOT LIKE HOW IT MAKES HIM FEEL. ketorolac [From Toradol] Adverse Reaction (Verified 01/11/19 10:29) Other Primary Care Physician: Guido Miller MD [Primary Care Provider] - Surgical History: appendectomy, cholecystectomy, - Lives: Alone Smoking Status: Former smoker - Family History Maternal Family History: Family History (Last Reviewed 01/06/19 @ 14:21 by Ana Mc) Father Diabetes Mother Diabetes Family History: Reports: Diabetes Paternal Family History: Family History (Last Reviewed 01/06/19 @ 14:21 by Ana Mc) Father Diabetes Mother Diabetes Family History: Reports: Heart Disease - CAD s/p CABG history. Patient notes that his paternal grandmother had diabetes. Review of Systems General: Denies: Chills, Fever Eyes: Denies: Visual changes - bilaterally, Diplopia ENT: Reports: - - left face and jaw pain. Denies: Rhinorrhea, Sore throat Cardiovascular: Denies: Chest pain, Palpitations Respiratory: Denies: Dyspnea, Cough Gastrointestinal: Reports: Abdominal pain, Nausea. 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 nml mastoids, nontender. Neck: Supple, Nontender Cardiovascular: Regular rate, Regular rhythm, No murmurs Respiratory: No distress, CTA bilaterally, Chest nontender Abdomen: Soft, Nondistended, Normal bowel sounds, Tender - diffusely, Guarding - voluntary diffusely. Negative for: Rebound tenderness Back: - - pt will not allow back exam at this time Extremities: Nontender - FROM all joints, No edema Skin: Normal color, No rash Neurological: Alert, Oriented x3, Cranial nerves II-XII grossly intact, Normal Strength, Normal Sensation Psychological: Agitated - verbally. cooperative. Diagnostic/Tx/Re-eval Impressions Facial/Sinus 01/22/19 15:41 IMPRESSION: Several small polypoid defects of the anterior left maxillary sinus consistent with mucoid retention cysts. There is no evidence of fracture. The mandible appears intact. Electronically Signed: Tor Chand MD at 17:56 EDT , Service support , 01/22/19 15:41 Sinus/Facial Bone [CT] Stat Laboratory Results 01/22/19 16:32 Sodium 128 L Potassium 3.6 Chloride 96 L Carbon Dioxide 26.0 Anion Gap 6 BUN 10 Creatinine 0.85 Estim Creat Clear Calc 91.31 Est GFR (MDRD) Af Amer 122 Est GFR (MDRD) Non-Af 101 BUN/Creatinine Ratio 11.8 Glucose 423 H Calcium 8.6 Total Bilirubin 0.90 AST 49 H ALT 75 H Alkaline Phosphatase 72 Total Protein 8.3 H Albumin 3.0 L Globulin 5.3 H Albumin/Globulin Ratio 0.6 L Lipase 73 - Medical Decision Making Patient has mild hyponatremia, we gave him some fluids to help replace this. He does not need to be admitted for that. Imaging shows no acute fractures of the face/mandible. His blood sugars in the 400s. He does not know how much insulin he would use for that level, but he is a type II diabetic. I am giving him 10 units. He was given oxycodone 10 mg liquid, he has been asking for more pain medicine ever since we gave it to him. I will give him another dose but as I discussed with him, I am not comfortable giving him Dilaudid for chronic pain especially when he is allergic to morphine and fentanyl. Also as I discussed with the patient, we do not treat chronic pain with narcotics in the emergency department. I do not think he needs a prescription for any narcotics at this time. He is advised to call tomorrow to discuss scheduling of his EGD, which I am not able to inquire about given that it is Wednesday. ED Disposition - Plan for ED Patient: Disposition: Home or Assisted Living Diagnosis: Facial contusion, Fall from slipping, Chronic low back pain, Chronic abdominal pain, Dysphagia, Hyperglycemia due to type 2 diabetes mellitus Instructions: ED Contusion Face, Understanding Chronic Pain Referrals: Guido Miller MD [Primary Care Provider] - (call tomorrow to discuss scheduling of your EGD (upper GI study))
[2019-01-22] MEDS: 0.9% Normal Saline 1,000 ML 999 ML IV (16:12)
[2019-01-22] MEDS: oxyCODONE Soln 5 MG/0.25 ML PO.SYRINGE 10 MG PO ×2 (16:12→19:52)
[2019-01-22 17:01] LABS: ALB/GLOB Ratio 0.6 RATIO (0.9-2.4); AST(SGOT) 49 U/L (15-37); Alanine Aminotransfer ALT/SGPT 75 U/L (16-61); Alkaline Phosphatase 72 U/L (45-117); Anion Gap 6 (5-15); BUN 10 mg/dL (7-18); BUN/Creat Ratio 11.8 RATIO (10-20); Calcium,Total 8.6 mg/dL (8.5-10.1); Chloride 96 mmol/L (98-107); Creatinine, Serum 0.85 mg/dL (0.70-1.30); EST Glomerular Filtration Rate 101 mL/min (>60); Est Glom Filt Rate - Afr Amer 122 mL/min (>60); Estimated Creatinine Clearance 91.31 ml/min; Globulin 5.3 g/dL (2.2-4.2); Glucose 423 mg/dL (74-106); Lipase 73 U/L (73-393); Potassium 3.6 mmol/L (3.5-5.1); Protein, Total 8.3 g/dL (6.4-8.2); Sodium Level 128 mmol/L (136-145)
--- NOTE | 2019-01-22 17:04 | ED.RN ---
PT STATES PAIN MEDICATION HAS NOT HELPED HIS PAIN AT ALL
--- NOTE | 2019-01-22 17:06 | ED.RN ---
PT STATES MEDS ALL THE SAME. PT STATES I DON'T KNOW SPECIFICS
[2019-01-22 17:21] VITALS: BP 152/100; PULSE 86; RESP 18; O2SAT 98
--- NOTE | 2019-01-22 17:54 | ED.RN ---
PT REQUESTS TO TALK WITH DR REGARDING PAIN. AWARE. ICE BAG OFFERED
--- NOTE | 2019-01-22 18:11 | ED.RN ---
ICE PACK TO LEFT SIDE OF FACE
[2019-01-22] MEDS: Insulin Lispro 100 UNIT/ML INSULN.PEN 10 UNIT SC (19:23)
[2019-01-22 20:20] VITALS: BP 142/83; PULSE 79; RESP 16; O2SAT 98
== END 2019-01-22 20:21 | disposition home or self-care (01) ==
PROVIDERS: Emergency Provider Emergency Medicine; Family Provider Internal Medicine; PCP Internal Medicine
DX: S00.83XA Contusion of other part of head, initial encounter (principal); G89.29 Other chronic pain; M54.5 Low back pain; R10.84 Generalized abdominal pain; R13.10 Dysphagia, unspecified; E11.65 Type 2 diabetes mellitus with hyperglycemia; I10 Essential (primary) hypertension; E11.621 Type 2 diabetes mellitus with foot ulcer; L97.529 Non-pressure chronic ulcer of other part of left foot with unspecified severity; E78.5 Hyperlipidemia, unspecified; Z87.891 Personal history of nicotine dependence; Z79.4 Long term (current) use of insulin; Z79.899 Other long term (current) drug therapy; W18.2XXA Fall in (into) shower or empty bathtub, initial encounter; Y93.E1 Activity, personal bathing and showering; Y92.002 Bathroom of unspecified non-institutional (private) residence as the place of occurrence of the external cause; Y99.8 Other external cause status
CPT/HCPCS: 70486; 80053; 83690; 96360; 96361; 99285; J7030; A4216

== ENCOUNTER 2019-01-25 22:29 | Emergency (ER) | payer MEDICAID, SELFPAY ==
[2019-01-25 22:31] VITALS: BP 142/104; PULSE 124; RESP 18; TEMP 37; O2SAT 98; BMI 17.5
--- NOTE | 2019-01-25 22:54 | RAD_ITS ---
STUDY: X-RAY - LEFT HAND REASON FOR EXAM: Male, 53 years old. Pain. No known injury. TECHNIQUE: 3 view(s) of the hand. COMPARISON: None. FINDINGS: Normal radiocarpal articulation. Normal distal radioulnar joint. Normal visualized carpal bones. Normal carpal articulations Normal carpometacarpal articulation of the thumb. Normal second through fifth carpometacarpal joints. There is deformity of the head of the fifth metacarpal which could be due to old fracture. There is no demonstrated acute fracture. Normal metacarpophalangeal joint of the thumb. Normal interphalangeal joint of the thumb. Normal proximal and distal phalanges of the thumb. Normal metacarpophalangeal joints of the second through fifth fingers. Normal proximal and distal interphalangeal joints of the second through fifth fingers. Normal phalanges of the second through fifth fingers. The soft tissue structures are unremarkable. RAD/Hand Min 3 Views IMPRESSION: No demonstrated acute osseous changes. Electronically Signed: Ranjith Lozano MD at 23:52 EDT Tel , Service support ,
--- NOTE | 2019-01-25 22:56 | CT_ITS ---
STUDY: CT ABDOMEN AND PELVIS WITHOUT CONTRAST REASON FOR EXAM: Male, 53 years old. Lower abdominal pain all over, history of appendectomy, cholecystectomy, hypertension, diabetes RADIATION DOSAGE (If Supplied By Facility): CTDIvol = ( 6.06 ) mGy, DLP = ( 296.57 ) mGycm TECHNIQUE: Transaxial 5 mm images were obtained from the dome of the diaphragm to the symphysis pubis without oral contrast, and without intravenous contrast. Sagittal and coronal images were reconstructed. This examination is limited for the evaluation of gastrointestinal, solid organs and vascular structures due to the lack of intravenous and oral contrast. Individualized dose optimization techniques were used for this CT. COMPARISON: CT abdomen pelvis 11/14/2018. 05/31/2018. 04/06/2018. FINDINGS: The visualized lung bases are unremarkable. The visualized portions of the heart are within normal limits. Normal liver. There are surgical clips in the gallbladder fossa consistent with a prior cholecystectomy. Stable low attenuation in the gallbladder fossa possible residual fluid. Normal spleen. Poorly visualized head and body of the pancreas. Limited visualization of the bilateral adrenal glands. Normal right kidney. Normal left kidney. Extremely limited gastrointestinal assessment due to lack of intravenous and oral contrast as well as internal fat planes. No obstructive pattern detected. Normal visualized stomach. There are surgical clips in the region of the appendix consistent with a prior appendectomy. There is minimal atherosclerotic calcification of the abdominal aorta, without a demonstrated aneurysm. Normal inferior vena cava. Normal retroperitoneum. Normal urinary bladder. Normal visualized prostate gland. Normal abdominal wall. There are mild degenerative changes of the visualized lumbar spine and bilateral hip and sacroiliac joints discogenic disease of the L4-5, L5-S1 level. CT/Abdomen/Pelvis without Cont IMPRESSION: There is no acute abdomen and pelvic pathology on submitted images. Postsurgical changes, fluid in the gallbladder fossa, minimal arteriosclerosis, mild degenerative changes appear as stable findings . Limited visualization of pancreas and adrenal glands as well as gastrointestinal system. No apparent interval change. Electronically Signed: Carolyn Gamez MD at 3:01 EDT , Service support ,
[2019-01-25] MEDS: 0.9% Normal Saline 1,000 ML 999 ML IV (23:14)
[2019-01-25] MEDS: Ondansetron 4 MG/2 ML Vial IV (23:14)
[2019-01-25] MEDS: oxyCODONE 5 MG Tablet PO (23:14)
[2019-01-25 23:38] LABS: ALB/GLOB Ratio 0.5 RATIO (0.9-2.4); AST(SGOT) 65 U/L (15-37); Alanine Aminotransfer ALT/SGPT 58 U/L (16-61); Albumin, Serum 2.7 g/dL (3.2-5.0); Alkaline Phosphatase 92 U/L (45-117); Anion Gap 9 (5-15); BUN 15 mg/dL (7-18); BUN/Creat Ratio 18.9 RATIO (10-20); Calcium,Total 8.5 mg/dL (8.5-10.1); Chloride 97 mmol/L (98-107); Creatinine, Serum 0.79 mg/dL (0.70-1.30); EST Glomerular Filtration Rate 109 mL/min (>60); Est Glom Filt Rate - Afr Amer 132 mL/min (>60); Estimated Creatinine Clearance 93.45 ml/min; Globulin 5.5 g/dL (2.2-4.2); Glucose 372 mg/dL (74-106); Lipase 63 U/L (73-393); Potassium 3.8 mmol/L (3.5-5.1); Protein, Total 8.2 g/dL (6.4-8.2); Sodium Level 131 mmol/L (136-145)
[2019-01-25 23:45] LABS: Absolute Lymphocyte Count 1.33 X10^3/ul (0.83-4.51); Absolute Neutrophil Count 9.6 X10^3/uL (2.0-7.7); Basophil# 0.01 X10^3/uL; Basophil% 0.1 % (0-1); Differential Indicated SCAN CRITERIA MET; Eosinophil# 0.01 X10^3/uL; Eosinophils% 0.1 % (0-5); Hemoglobin 11.4 g/dl (13.0-16.5); Lymphocyte # 1.33 X10^3/ul (4.0); Lymphocyte % 10.3 % (19-41); Mean Corp Hgb Conc 35.6 g/gl (32-36); Mean Corpuscular Volume 89.9 fL (80-94); Mean Platelet Vol. 10.4 fl (6.2-12.0); Monocyte# 1.86 X10^3/uL; Monocyte% 14.5 % (0-10); Neutrophil # 9.62 X10^3/uL (2.7-7.7); Neutrophil % 74.7 % (47-70); POSITIVE COUNT YES; POSITIVE DIFFERENTIAL YES; POSITIVE MORPHOLOGY NO; Platelet Count 205 K/mm3 (150-450); RBC Distribution Width SD 39.4 fl (35.1-43.9); Red Blood Count 3.56 M/mm3 (4.6-6.2); White Blood Count 12.9 K/mm3 (4.4-11.0)
[2019-01-26 00:17] LABS: Differential Comment SCANNED; Platelet Estimate ADEQUATE (ADEQ); Red Cell Morphology NORM C+C NORMAL (NORM C&C)
[2019-01-26 00:28] LABS: Bacteria 0 SEEN /hpf (None Seen); Mucous, Urine 0 SEEN /hpf (<or=2+); Squamous Epithelial Cells - UA 0 SEEN /hpf (0-5)
[2019-01-26 00:31] LABS: Color, Urine Yellow (Yellow); Glucose, Dipstick 1000 mg/dl (Normal); Ketone-Dipstick 15 mg/dl (Negative); Leukocyte Esterase-Dipstick 25 /ul (Negative); Nitrite-Dipstick Positive (Negative); Occult Blood-Urine 25 /ul (Negative); Protein-Dipstick 100 mg/dl (Negative); Specific Gravity, Urine 1.015 (1.002-1.030); Urine Clarity Clear (Clear); Urine Urobilinogen 8 mg/dl (Normal)
[2019-01-26 00:33] LABS: Urine Bilirubin Dipstick 1 mg/dL (Negative)
[2019-01-26 00:37] LABS: Red Blood Cells-Urine 0-5 SEEN /hpf (0-5); White Blood Cells 5-10 SEEN /hpf (0-5)
[2019-01-26 00:55] LABS: Amphetamine Urine VISTA NEGATIVE (<1000 ng/mL); Barbiturate Urine VISTA NEGATIVE (< 200 ng/mL); Benzodiazepine Urine VISTA NEGATIVE (< 200 ng/mL); Cocaine Urine VISTA NEGATIVE (< 300 ng/mL); Ecstacy Urine VISTA NEGATIVE (< 500 ng/mL); Methadone Urine VISTA NEGATIVE (< 300 ng/mL); PCP Urine VISTA NEGATIVE (< 25 ng/mL); THC Urine VISTA POSITIVE (< 50 ng/mL); Vista UDS pH Range 6
[2019-01-26 01:15] VITALS: RESP 16
--- NOTE | 2019-01-26 03:22 | ED.DEP ---
ED Disposition - Plan for ED Patient: Instructions: ED Abdominal Pain Unkn Cause Male Referrals: Guido Miller MD [Primary Care Provider] -
[2019-01-26 03:30] VITALS: BP 120/80; PULSE 98; RESP 18; O2SAT 96
--- NOTE | 2019-01-26 04:16 | ED.DCSUM_ITS ---
- ER Visit Summary Date of Service: 01/26/19 Chief Complaint: Back pain and abdominal pain History of Present Illness: The patient is a 53 M who presents actually with multiple complaints. His main complaint is abdominal pain. He has had this for months. He has been referred to surgery for an upper GI but has not yet had this. He also 2 days ago slipped getting out of the bathtub and hit the left side of his face. He is complaining of pain along side of his face. He did have a normal CT at that time. He also hit his left hand it is complaining of left hand pain. No fevers. No chest pain or shortness of breath. No vomiting. Physical Examination: Initial heart rate 124 blood pressure 142/104 Moist mucous membranes Heart regular tachycardia Lungs are clear Abdomen soft nondistended he has diffuse nonfocal tenderness There is some soft tissue swelling of the left hand is neurovascularly intact with brisk capillary refill no obvious deformity Alert Test Results: Labs notable for white count 12.9. He has a sodium of 131. Hepatic function lipase unremarkable. Urinalysis shows positive nitrates, 5-10 WBCs. Hand x-ray shows no acute osseous changes. CT the abdomen shows no acute process. Emergency Department Course and Treatment: Patient was treated here with IV fluids and Zofran. He was given oral oxycodone. He has multiple allergies including fentanyl morphine and Toradol. This is why he was given oral medication instead of IV medication. His prior records are concerning for possible drug-seeking behavior and I do not feel IV Dilaudid was indicated. He has no lower urinary tract symptoms. Therefore we will send urine culture. Patient was discharged. Treatment Plan: [] Disposition: Discharge Impression: Abdominal pain This note was generated with [employer] dictation software. It may contain incorrect words, spelling, and punctuation that were not noted in review of the chart prior to signing ED Disposition - Plan for ED Patient: Disposition: Home or Assisted Living Instructions: ED Abdominal Pain Unkn Cause Male Referrals: Guido Miller MD [Primary Care Provider] -
== END 2019-01-26 03:31 | disposition home or self-care (01) ==
LOC: ED 22:58
PROVIDERS: Emergency Provider Emergency Medicine; Family Provider Internal Medicine; PCP Internal Medicine
DX: R10.84 Generalized abdominal pain (principal); E11.9 Type 2 diabetes mellitus without complications; I10 Essential (primary) hypertension; E78.00 Pure hypercholesterolemia, unspecified; Z79.4 Long term (current) use of insulin; Z79.899 Other long term (current) drug therapy
CPT/HCPCS: 73130; 74176; 80053; 80307; 81001; 83690; 85025; 96361; 96374; 99284; J7030; A4216; J2405

== ENCOUNTER 2019-02-01 02:20 | Inpatient (IN) | payer MEDICAID, SELFPAY ==
[2019-02-01 02:20] VITALS: BP 172/95; PULSE 104; RESP 16; TEMP 36.4; O2SAT 100; BMI 17.1
--- NOTE | 2019-02-01 02:35 | CT_ITS ---
STUDY: CT ABDOMEN AND PELVIS WITH CONTRAST REASON FOR EXAM: Male, 53 years old. Low abdominal pain x3 weeks, elevated WBC and blood pressure. History of diabetes, hyperlipidemia, hypertension, spinal stenosis, appendectomy, cholecystectomy. RADIATION DOSAGE (If Supplied By Facility): CTDIvol = ( 5.13 ) mGy, DLP = ( 378.09 ) mGycm TECHNIQUE: Transaxial 3.75 mm images were obtained from the dome of the diaphragm to the symphysis pubis without oral contrast. 100ML Isovue 300 was administered. Sagittal and coronal images were reconstructed. Individualized dose optimization techniques were used for this CT. COMPARISON: CT abdomen pelvis 01/25/2019. 11/14/2018. 05/31/2018. 04/06/2018. FINDINGS: There is a peripheral indistinct contour lesion 1 x 1.2 x 1 cm with central pockets of air image 8 series 2, image 123 series 602 in the lower lobe, not included on the most recent examination, a new 0.5 cm small nodular density along the diaphragmatic contour in the left lower lobe image 16 series 2, not present on previous examination and a new vague pleural-based hazy nodular density in the anterior lingula image 16 series 2 measuring 0.5 x 0.7 x 0.5 cm with a central pocket of air. There is otherwise nonspecific compression of dependent lung parenchyma. The visualized portions of the heart are within normal limits. Normal liver. There are surgical clips in the gallbladder fossa consistent with a prior cholecystectomy. There is trace fluid in the gallbladder fossa, subhepatic space and posterior to the pancreas along the celiac artery and proximal superior mesenteric artery. The seen similarly on the previous contrast CT 10/2018. Normal spleen. Normal pancreas. Normal bilateral adrenal glands. There is an indeterminate cortical low attenuation change in the right mid cortex which was not seen on the previous contrast examination 11/14/2018 or appreciated on the most recent noncontrast exam. This measures approximately 1.6 x 1.5 x 1.4 cm. This is not a simple cyst. Normal left kidney. Left circumaortic renal vein. Normal visualized stomach. Normal small intestine. Normal colon. There are surgical clips in the region of the appendix consistent with a prior appendectomy. Minimal atherosclerosis of the abdominal aorta. Normal inferior vena cava. Normal retroperitoneum. Normal urinary bladder. Normal visualized prostate gland. Trace pelvic fluid. Normal abdominal wall. There are degenerative changes of the visualized lumbar spine, bilateral hip joints, symphysis pubis and sacroiliac joints. Mild stable posterior soft tissue prominence along the sacrococcyx junction since 11/14/2018. CT/Abdomen/Pelvis WITH Contrast IMPRESSION: Indeterminate lingula and left lower lobe parenchymal changes may represent an inflammatory/infectious process, peripheral infarct cannot be on limited examination. These are likely new findings since previous examination allowing for changing technique. Consider CT examination chest for further detail. Trace fluid in the gallbladder fossa and posterior to the pancreas and superior retroperitoneum unchanged since 10/2018 of questionable significance. There is an indeterminant cortical lesion in the right mid kidney which was not present on previous examination and does not represent a simple cyst. Further assessment is recommended to exclude complex cyst versus early neoplasm. Other nonacute findings as outlined above. Electronically Signed: Carolyn Gamez MD at 5:34 EDT , Service support ,
[2019-02-01] MEDS: 0.9% Normal Saline 1,000 ML 1000 ML IV (02:44)
[2019-02-01] MEDS: Ondansetron 4 MG/2 ML Vial IV (02:44)
[2019-02-01] MEDS: HYDROmorphone 1 MG/ML Syringe IV ×3 (02:44→18:44)
--- NOTE | 2019-02-01 02:53 | ED.DCSUM_ITS ---
- ER Visit Summary Date of Service: 02/01/19 Chief Complaint: Abdominal pain, left arm History of Present Illness: The patient is a 53 M presenting with lower abdominal pain which has been ongoing for several weeks. He has nausea, vomiting, diarrhea. He was seen in the ED January 25 for similar complaints. States he continues to have persistent pain. He denies fever. He states he fell 1 to 2 weeks ago and caught himself with his left hand. He has had pain in that hand since. It is now more swollen and red. Denies other complaints. Physical Examination: Vitals are stable. Patient is afebrile. Alert no acute distress. HEENT exam is unremarkable. Neck is supple. Lungs are clear and equal bilaterally. Heart is regular rate and rhythm. Abdomen is soft bilateral lower quadrant tenderness, no rebound or guarding Extremities diffuse swelling and erythema left hand Skin is warm and dry. No focal neurologic deficit. Remainder of exam is unremarkable. Emergency Department Course and Treatment: Patient was given Dilaudid, Zofran IV . CBC showed white count 24.9, hemoglobin 12.2. Chemistries shows sodium 127, potassium 3.4, glucose 624. CRP 41.9. ESR 18. Left hand x-ray shows no acute process. He was given additional IV fluids and insulin subcutaneously. Repeat BGT 406. He was given Zosyn IV. CT abdomen/pelvis with contrast shows indeterminate lingula and left lower lobe parenchymal changes may represent an inflammatory/infectious process, peripheral infarct cannot be on limited examination. These are likely new findings since previous examination allowing for changing technique. Consider CT examination chest for further detail. Trace fluid in the gallbladder fossa and posterior to the pancreas and superior retroperitoneum unchanged since 10/2018 of questionable significance. There is an indeterminant cortical lesion in the right mid kidney which was not present on previous examination and does not represent a simple cyst. Further assessment is recommended to exclude complex cyst versus early neoplasm. Chest x-ray shows no acute process. Discussed with the hospitalist for admission. Disposition: Admission Impression: Left hand cellulitis, hyperglycemia, chronic abdominal pain This note was generated with [employer] software. It may contain incorrect words, spelling, and punctuation that were not noted in review of the chart prior to signing ED Disposition - Plan for ED Patient:
[2019-02-01 03:07] LABS: Absolute Neutrophil Count 22.5 X10^3/uL (2.0-7.7); Basophil# 0.04 X10^3/uL; Basophil% 0.2 % (0-1); Differential Indicated SCAN CRITERIA MET; Eosinophil# 0.03 X10^3/uL; Eosinophils% 0.1 % (0-5); Hematocrit 33.6 % (40-54); Hemoglobin 12.2 g/dl (13.0-16.5); Lymphocyte % 5.6 % (19-41); Mean Corp Hgb Conc 36.3 g/gl (32-36); Mean Corpuscular Hgb 32.7 pg (27.0-32.0); Mean Corpuscular Volume 90.1 fL (80-94); Mean Platelet Vol. 9.6 fl (6.2-12.0); Monocyte# 0.79 X10^3/uL; Monocyte% 3.2 % (0-10); Neutrophil # 22.54 X10^3/uL (2.7-7.7); Neutrophil % 90.5 % (47-70); POSITIVE COUNT NO; POSITIVE DIFFERENTIAL YES; POSITIVE MORPHOLOGY YES; Platelet Count 377 K/mm3 (150-450); RBC Distribution Width SD 39.6 fl (35.1-43.9); Red Blood Count 3.73 M/mm3 (4.6-6.2); White Blood Count 24.9 K/mm3 (4.4-11.0)
[2019-02-01 03:08] LABS: Erythrocyte Sedimentation Rate 18 mm/hr (0-20)
--- NOTE | 2019-02-01 03:10 | RAD_ITS ---
STUDY: X-RAY - LEFT HAND REASON FOR EXAM: Male, 53 years old. Swelling to hand around thumb, fall TECHNIQUE: 3 view(s) of the hand. COMPARISON: January 25, 2019 FINDINGS: Normal radiocarpal articulation. Normal distal radioulnar joint. Normal visualized carpal bones. Normal carpal articulations Normal carpometacarpal articulation of the thumb. Normal second through fifth carpometacarpal joints. Normal metacarpi. Normal metacarpophalangeal joint of the thumb. Normal interphalangeal joint of the thumb. Normal proximal and distal phalanges of the thumb. Normal metacarpophalangeal joints of the second through fifth fingers. Normal proximal and distal interphalangeal joints of the second through fifth fingers. Normal phalanges of the second through fifth fingers. The soft tissue structures are unremarkable. RAD/Hand Min 3 Views IMPRESSION: There is no acute displaced fracture or dislocation. Electronically Signed: Carolyn Gamez MD at 3:23 EDT , Service support ,
[2019-02-01 03:22] LABS: Anion Gap 7 (5-15); BUN 13 mg/dL (7-18); BUN/Creat Ratio 13.4 RATIO (10-20); Calcium,Total 8.8 mg/dL (8.5-10.1); Chloride 91 mmol/L (98-107); Creatinine, Serum 0.97 mg/dL (0.70-1.30); EST Glomerular Filtration Rate 86 mL/min (>60); Est Glom Filt Rate - Afr Amer 104 mL/min (>60); Estimated Creatinine Clearance 76.23 ml/min; Glucose 624 mg/dL (74-106); Potassium 3.4 mmol/L (3.5-5.1); Sodium Level 127 mmol/L (136-145)
[2019-02-01 03:47] LABS: Differential Comment SCANNED
[2019-02-01] MEDS: Insulin Lispro 100 UNIT/ML INSULN.PEN 15 UNIT SC ×2 (03:53→11:32)
[2019-02-01] MEDS: 0.9% Normal Saline 1,000 ML 999 ML IV (05:29)
[2019-02-01] MEDS: HYDROmorphone 0.5 MG/0.5 ML SYRINGE IV (05:30)
[2019-02-01 05:34] VITALS: BP 102/66; PULSE 82; RESP 15; O2SAT 98
--- NOTE | 2019-02-01 05:40 | RAD_ITS ---
STUDY: X-RAY CHEST REASON FOR EXAM: Male, 53 years old. Cough, nodular density seen on CT abdomen and pelvis. TECHNIQUE: Single AP portable view of the chest. COMPARISON: 09/29/2018 chest x-ray. CT abdomen and pelvis lung bases 01/25/2019. FINDINGS: The vague nodular densities seen on CT in the left base are not appreciated on chest x-ray. The lungs are clear and expanded. There is no demonstrated pleural abnormality. Normal size heart. Normal mediastinum and manuel. Normal visualized pulmonary arteries. Normal visualized aortic arch and descending thoracic aorta. Normal visualized thoracic spine. Normal visualized ribs, clavicles, and shoulders. There is no demonstrated abnormality of the visualized soft tissue structures of the upper abdomen. RAD/Chest 1 View (Portable) IMPRESSION: No acute cardiopulmonary disease. No significant interval change. Electronically Signed: Carolyn Gamez MD at 6:29 EDT , Service support ,
[2019-02-01 05:41] LABS: Bedside Glucose 406 mg/dL (70-110)
--- NOTE | 2019-02-01 06:53 | NURSING ---
218 LEFT HAND CELLULITIS SEMENTI
[2019-02-01 07:12] LABS: AST(SGOT) 34 U/L (15-37); Alanine Aminotransfer ALT/SGPT 33 U/L (16-61); Albumin, Serum 2.4 g/dL (3.2-5.0); Alkaline Phosphatase 139 U/L (45-117); Bilirubin, Direct 0.58 mg/dL (0.00-0.30); Lipase 113 U/L (73-393); Protein, Total 8.4 g/dL (6.4-8.2)
--- NOTE | 2019-02-01 07:21 | NURSING ---
DR PRICE IN WITH PATIENT
[2019-02-01 07:31] LABS: Osmolality, Serum 291 mOsm/KG (275-295)
[2019-02-01 07:37] LABS: Lactic Acid 2.9 mmol/L (0.4-2.0)
--- NOTE | 2019-02-01 07:37 | ED.RN ---
LAB RESULTED LACTIC 2.8
[2019-02-01 07:48] LABS: Uric Acid 2.2 mg/dL (3.5-7.2)
[2019-02-01 07:58] VITALS: BMI 17.2
--- NOTE | 2019-02-01 07:58 | HP.PCM_ITS ---
Problem List (1) Sepsis Status: Acute (2) Cellulitis Status: Acute Qualifiers: Site of cellulitis of extremity: upper extremity (3) Dehydration Status: Acute (4) Malnutrition Status: Chronic (5) Anemia Status: Chronic (6) Hypokalemia Status: Acute (7) HLD (hyperlipidemia) Status: Chronic Qualifiers: (8) Hepatitis C antibody positive in blood Status: Chronic (9) Dysphagia Status: Chronic (10) Unintentional weight loss Status: Chronic (11) Elevated liver enzymes Status: Chronic (12) Type 2 diabetes mellitus Status: Chronic Qualifiers: (13) Chronic back pain Status: Chronic Qualifiers: (14) Hypertension Status: Chronic Qualifiers: (15) 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 He tells me that he fell in the past week and his hand has been painful since then. Recently the swelling and pain increased and it is now hot to touch. Denied hx of Gout. Denies fevers and chills. Plain Xray of the hand in the ED is normal. There are no wounds or openings in the skin. He has not seen his PCP for this complaint. PMH is significant for poorly controlled DM II, chronic back pain secondary to lumbar canal stenosis, lumbar foraminal stenosis, HTN, pancreatitis, hyperlipidemia, hepatitis C, abnormal liver enzymes, diabetic ulcers on his feet and abdominal pain. He has been to the ED several times for abdominal pain. He has lost 7-8 lbs since October and he appears cachectic. He is also anemic. The CT of the abd and pelvis today showed a new lesion in the R mid kidney and also showed lung nodules that are new. Vital signs at presentation to the emergency department were temperature 97.6, pulse rate 104, blood pressure 172/95, respiratory rate 16 and he was 100% saturated on room air. White blood cell count was 24.9 with 90% neutrophils. The hemoglobin is 12.2 with an MCV of 90.1. The RDW was normal. Sodium is low at 127 but when corrected for hyperglycemia the sodium is 136. Potassium is low at 3.4 and the serum bicarb is 29 with an anion gap of 7. Random blood sugar is 624. Lactic acid is increased at 2.9. Uric acid is 2.2. LFTs are unremarkable with mild elevation and direct bilirubin and alk phos. ESR is 18 and the CRP is 41.9. He is being admitted tot [facility] for sepsis secondary to L hand cellulitis and also for dehydration with uncontrolled DM. 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 ketorolac [From Toradol] Adverse Reaction (Verified 02/01/19 02:39) Other Home Medications: Ambulatory Orders Medication Instructions Recorded insulin glargine 100 30 unit SC DAILY ml 08/18/18 unit-lixisenatide 33 mcg/mL subcutaneous pen lisinopril 10 mg tablet 10 mg PO DAILY #90 tab 10/04/18 Atorvastatin Calcium 40 mg PO DAILY 11/14/18 Insulin Lispro [Humalog Kwikpen] 15 unit SC TIDCM 11/14/18 Surgical History: Surgical History (Last Reviewed 02/01/19 @ 08:28 by Nan Saucedo DO) History of appendectomy Z90.49 S/P laparoscopic cholecystectomy Z90.49 Surgical History: appendectomy, cholecystectomy, - Psychiatric History: No pertinent psych hx Lives: Spouse/ Significant Other Smoking Status: Former smoker Tobacco Use: Non-smoker Alcohol: None Drugs: None - *Family History Maternal Family History: Family History (Last Reviewed 02/01/19 @ 08:28 by Nan Saucedo DO) Father Diabetes Mother Diabetes History Items: Diabetes Paternal Family History: Family History (Last Reviewed 02/01/19 @ 08:28 by Nan Saucedo DO) Father Diabetes Mother Diabetes History Items: Heart Disease - CAD s/p CABG history. Patient notes that his paternal grandmother had diabetes. Review of Systems Constitutional: Reports: Weight Change. Denies: Chills, Fever Eyes: Denies: Blurred vision, Redness HEENT: Denies: Head Aches, Sinus Congestion, Sinus Drainage Cardiovascular: Denies: Chest Pain, Palpitations Respiratory: Denies: Cough, Shortness of breath at rest, Sputum production Gastrointestinal: Reports: Abdominal Pain, Nausea, Vomiting Genitourinary: Reports: Frequency. Denies: Dysuria Musculoskeletal: Reports: Back Pain. Denies: Joint Pain, Joint Tenderness Skin: Denies: Rash, Wounds Neurological: Denies: Focal weakness, Numbness, Tingling, Tremor, Seizures Psychiatric: Denies: Anxiety, Depression, Homicidal Ideations, Suicidal Ideations Endocrine: Denies: Hx of Thyroiditis Hematologic/ Lymphatic: Denies: Easy Bruising, Easy Bleeding, Hx of blood clot VTE Information - Inpt Only VTE Present on Admission: No VTE Mechan Device Prophylaxis: None VTE Pharm Prophylaxis ordered?: Yes Patient Problems: Active and Suspected Problems (Last Reviewed 02/01/19 @ 08:28 by Nan Saucedo DO) Sepsis (Acute) Cellulitis (Acute) Dehydration (Acute) Hypokalemia (Acute) - Physical Exam General: Alert, Oriented x3, Cooperative, - - Cachectic in appearance and looks weak and tired HEENT: Atraumatic, PERRLA, EOMI, Normocephalic Oral: No Gingival or Mucosal Lesions/ Ulcerations, Dry Mucosa, - - Poor dentition Neck: Supple, No JVD, Negative Carotid Bruits, No Nuchal Rigidity, Trachea Midline Lungs: Clear to auscultation, Diminished Cardiovascular: Regular Rhythm, Normal S1, Normal S2, No murmurs, No Gallop, Tachycardic Abdomen: Bowel Sounds Present, Soft, Non-Distended, Tender, - - No masses appreciated Extremities: No clubbing, No cyanosis, No edema Skin: No rashes, No breakdown, - - The left thumb and hand are markedly swollen with erythema and increased warmth to touch. There are no openings in the skin. Difficult to examine for ROM because he withdraws when I attempt to move the thumb. Musculoskeletal: Muscle Wasting Neurological: Cranial nerves II-XII grossly intact, Neuro grossly intact Psych/Mental Status: Normal Affect, Appropriate Vital Signs Temp Pulse Resp BP Pulse Ox 97.6 F L 82 15 102/66 98 02/01/19 02:20 02/01/19 05:34 02/01/19 05:34 02/01/19 05:34 02/01/19 05:34 Oxygen Delivery Method Room Air Weight: 133 lb 6.075 oz Body Mass Index (BMI) 17.1 Finger Stick Blood Glucose 406 Laboratory Tests Past 24 Hrs 02/01/19 02/01/19 02/01/19 02:30 02:30 02:30 WBC 24.9 H RBC 3.73 L Hgb 12.2 L Hct 33.6 L MCV 90.1 MCH 32.7 H MCHC 36.3 H RDW 12.0 RDW Differential 39.6 Plt Count 377 MPV 9.6 Immature Gran % (Auto) 0.400 Neut % (Auto) 90.5 H Lymph % (Auto) 5.6 L [place] % (Auto) 3.2 Eos % (Auto) 0.1 Baso % (Auto) 0.2 Absolute Neuts (auto) 22.5 H Absolute Lymphs (auto) 1.40 Total Counted Not Reportable Differential Comment SCANNED ESR 18 Sodium 127 L Potassium 3.4 L Chloride 91 L Carbon Dioxide 29.0 Anion Gap 7 BUN 13 Creatinine 0.97 Estim Creat Clear Calc 76.23 Est GFR (MDRD) Af Amer 104 Est GFR (MDRD) Non-Af 86 BUN/Creatinine Ratio 13.4 Glucose 624 H* Serum Osmolality Lactic Acid Uric Acid Calcium 8.8 Total Bilirubin 0.80 Direct Bilirubin 0.58 H AST 34 ALT 33 Alkaline Phosphatase 139 H C-React Prot Ext Range 41.90 H Total Protein 8.4 H Albumin 2.4 L Globulin 6.0 H Lipase 113 Acetone Level 02/01/19 02/01/19 02/01/19 07:00 07:00 07:00 WBC RBC Hgb Hct MCV MCH MCHC RDW RDW Differential Plt Count MPV Immature Gran % (Auto) Neut % (Auto) Lymph % (Auto) [place] % (Auto) Eos % (Auto) Baso % (Auto) Absolute Neuts (auto) Absolute Lymphs (auto) Total Counted Differential Comment ESR Sodium Potassium Chloride Carbon Dioxide Anion Gap BUN Creatinine Estim Creat Clear Calc Est GFR (MDRD) Af Amer Est GFR (MDRD) Non-Af BUN/Creatinine Ratio Glucose Serum Osmolality 291 Lactic Acid 2.9 H Uric Acid Calcium Total Bilirubin Direct Bilirubin AST ALT Alkaline Phosphatase C-React Prot Ext Range Total Protein Albumin Globulin Lipase Acetone Level NEGATIVE 02/01/19 07:00 WBC RBC Hgb Hct MCV MCH MCHC RDW RDW Differential Plt Count MPV Immature Gran % (Auto) Neut % (Auto) Lymph % (Auto) [place] % (Auto) Eos % (Auto) Baso % (Auto) Absolute Neuts (auto) Absolute Lymphs (auto) Total Counted Differential Comment ESR Sodium Potassium Chloride Carbon Dioxide Anion Gap BUN Creatinine Estim Creat Clear Calc Est GFR (MDRD) Af Amer Est GFR (MDRD) Non-Af BUN/Creatinine Ratio Glucose Serum Osmolality Lactic Acid Uric Acid 2.2 L Calcium Total Bilirubin Direct Bilirubin AST ALT Alkaline Phosphatase C-React Prot Ext Range Total Protein Albumin Globulin Lipase Acetone Level POC Glucose 02/01/19 05:28 POC Glucose 406 H Assessment/Plan All Active Problems (Last Reviewed 02/01/19 @ 08:28 by Nan Saucedo DO) Sepsis (Acute) Cellulitis (Acute) Dehydration (Acute) Hypokalemia (Acute) Acute pancreatitis (Resolved) Gastroenteritis (Resolved) Impressions 1. Sepsis secondary to cellulitis of the left hand 2. Cellulitis of the left hand 3. Controlled diabetes mellitus type 2 4. Pseudohyponatremia secondary to markedly increased blood sugar 5. Hypokalemia 6. Abdominal pain associated with nausea and sometimes emesis 7. Anemia 8. Hypomagnesemia 9. Malnutrition 10. Dehydration 11. Hyperlipidemia 12. Hepatitis C antibody positive 13. Unintentional weight loss 14. Chronic back pain with lumbar canal stenosis at L4-5 and L5-S1 secondary to disc disease and facet arthropathy 15. Indeterminate cortical low attenuation change in the right mid cortex not seen on previous examination of 11/14/2018. The area measures 1.6 x 1.5 x 1.4 cm and is not a simple cyst. Malignancy cannot be ruled out at this time 16. Abnormal left lingula and left lower lobe with nodular lesions, not present on previous study, of undetermined etiology - he was a smoker in the past Patient was admitted to the hospital and started on vancomycin and Zosyn for severe cellulitis with elevated lactic acid. Insulin orders were put in.. He is not really eating so will do a long-acting insulin and sliding insulin coverage for now and later institute mealtime.... Humalog. Consult Dr. Fletcher for upper and lower endoscopy Obtain CT scan of the chest with contrast tomorrow-need to wait for 24 hours as he received IV contrast with the abdominal CT today. May need to involve Dr. Kerr once those results are available. Will likely need a biopsy of the renal mass at some point-we will probably consult Dr. Loving and will discuss with Dr. Vinson whether he can get a percutaneous biopsy Recheck lab in the a.m. IV Dilaudid for pain management Elevate the left upper extremity Blood cultures were drawn in the emergency department Code Visit Inpatient E&M: 05507 Init Hosp L3
[2019-02-01 08:21] VITALS: BP 153/93; PULSE 89; RESP 16; TEMP 36.4; O2SAT 99
[2019-02-01 08:30] LABS: Hemoglobin A1c 10.5 % (4.2-6.3)
[2019-02-01 08:32] LABS: Magnesium 1.4 mg/dL (1.6-2.6); Phosphorus 2.6 mg/dL (2.5-4.9); Thyroid Stim Hormone (TSH) 1.23 uIU/mL (0.358-3.74)
[2019-02-01 09:01] LABS: Bedside Glucose 284 mg/dL (70-110)
[2019-02-01] MEDS: Enoxaparin 40 MG/0.4 ML Syringe SC (09:04)
[2019-02-01] MEDS: Lisinopril 10 MG Tablet PO (09:08)
[2019-02-01] MEDS: oxyCODONE 5 MG Tablet 10 MG PO ×3 (09:08→21:57)
[2019-02-01] MEDS: Insulin Lispro 100 UNIT/ML INSULN.PEN SC ×2 (09:09→11:33)
[2019-02-01 11:03] LABS: Reflex Lactate? Y
[2019-02-01] MEDS: Glucerna Shake 120 ML LIQUID PO ×4 (11:28→21:57)
[2019-02-01 11:40] LABS: Bedside Glucose 265 mg/dL (70-110)
[2019-02-01 12:03] LABS: Lactic Acid 3.3 mmol/L (0.4-2.0)
--- NOTE | 2019-02-01 12:15 | CASEMGMT ---
RN MIKE [employer] MAKER CM to room to meet with patient for initial transition planning/care coordination assessment. RN MIKE introduced self and role at [facility]. Pt voices understanding and consents to assessment at this time. Pt sitting on edge of bed, in no distress at this time. Pt is A/O at this time and answers all questions appropriately. Care providers, pharmacy, and demographics verified/updated at this time. PCP: Paul Specialists: Denies Preferred Pharmacy: [id number] Insurance: [employer]. Pt states he does not have [employer] but states I could use one. Call placed to [employer] @ and spoke to Suzanne. Referred pt for [employer]. Call Reference #: [id number]. Prescription Benefit: Yes Living Will/HPOA: [facility] does not have LW or HCPOA . Interested in more information but states does not want to talk with SW at this time to complete paperwork. Provided information on advanced directives and given Social Service rac card with number to call if chooses in the future to utilize [facility] social work for advanced directive completion. Educated patient that, if patient so chooses, can come back to [facility] and meet with a SW as an outpatient to complete health care advanced directives. Patient expresses understanding. LNOK: Living Arrangements: Lives in an apartment with no stairs to enter. States his is often away from the home/@ work and he is often home by himself. States he is fairly independent but states it has been becoming more difficult with bathing and dressing myself and I haven't been eating much at all. I've really been going through a lot. I could really use an aide to help me with meals and around the house. Transportation: Pt states his provides transportation and he has used [employer] transportation in the past as well. DME: States has the following DME: Cane and glucometer. States glucometer works properly and he has all the needed supplies for it. Pt states no need for further DME at this time. HHC/SNF: Has never been to a SNF. Has had [facility] in the past. Call placed to [facility] and they stated they just recently discharge pt from their services d/t non-compliance and they are not agreeable to accepting him back. Pt agreeable to [facility] again on discharge but states he feels he needs aides services the most. Pt wishes to return home on discharge. Pt states does not smoke, drink ETOH, or use street drugs. CM to follow for discharge planning/needs. Advised pt to ask for CM if any further questions/concerns/needs arise. Voices understanding. PLAN: Home w/possible HHC and/or aide services. PT/OT evals pending. SW consult for aide services, limited support, meal assist, and new diagnosis/kidney mass and lung nodules. Diaz RON RN CM
[2019-02-01 14:23] VITALS: BP 128/81; PULSE 134; RESP 18; TEMP 36.8; O2SAT 98
--- NOTE | 2019-02-01 14:59 | PCM.RX.CS ---
Consult Pharmacy has been consulted to manage selected antiobiotic: Vancomycin Type of Consult: New start Suspected Infection: Sepsis, Skin/Soft tissue Labs: Sodium 127 mmol/L (136-145) L 02/01/19 02:30 Potassium 3.4 mmol/L (3.5-5.1) L 02/01/19 02:30 Chloride 91 mmol/L (98-107) L 02/01/19 02:30 Carbon Dioxide 29.0 mmol/L (21.0-32.0) 02/01/19 02:30 Anion Gap 7 (5-15) 02/01/19 02:30 BUN 13 mg/dL (7-18) 02/01/19 02:30 Creatinine 0.97 mg/dL (0.70-1.30) 02/01/19 02:30 Est GFR (MDRD) Af Amer 104 mL/min (>60) 02/01/19 02:30 Est GFR (MDRD) Non-Af 86 mL/min (>60) 02/01/19 02:30 BUN/Creatinine Ratio 13.4 RATIO (10-20) 02/01/19 02:30 Glucose 624 mg/dL (74-106) H* 02/01/19 02:30 Weight used for dosin.8 kg Estimated Creatinine Clearance: 76 ML/MIN Goal Trough: 15-20 mcg/mL Pharmacy Plan for Drug Dosing: Give initial dose of 1500mg IV x1, then continue with 1000mg IV q12h. Obtain a trough before the 4th dose. Pharmacy Service will continue to monitor and adjust dosing as required. Follow-Up Labs: Trough Vancomycin Labs to be done on [date and time ordered]: 02/03/19 01:30
[2019-02-01 16:21] VITALS: BP 145/95; PULSE 85; RESP 18; TEMP 36.8; O2SAT 97
[2019-02-01 16:40] LABS: Bedside Glucose 103 mg/dL (70-110)
--- NOTE | 2019-02-01 17:19 | CASEMGMT ---
Social Work Note SW received consult for aide services. SW will meet with pt tomorrow to have pt sign Request for medicaid home and community-based services document and mail to [facility]. Odessa Jeter MSW, INBOUND SALES ADVISOR
[2019-02-01] MEDS: Magnesium Sulfate 4gm/100mL 4 GM/100 ML IV.SOLN. IV (17:44)
[2019-02-01 17:50] LABS: Anion Gap 10 (5-15); BUN 14 mg/dL (7-18); BUN/Creat Ratio 17.4 RATIO (10-20); Calcium,Total 8.7 mg/dL (8.5-10.1); Chloride 103 mmol/L (98-107); Creatinine, Serum 0.81 mg/dL (0.70-1.30); EST Glomerular Filtration Rate 107 mL/min (>60); Est Glom Filt Rate - Afr Amer 129 mL/min (>60); Estimated Creatinine Clearance 91.74 ml/min; Glucose 69 mg/dL (74-106); Potassium 3.6 mmol/L (3.5-5.1); Sodium Level 137 mmol/L (136-145)
[2019-02-01 20:17] VITALS: BP 127/80; PULSE 96; RESP 14; TEMP 36.7; O2SAT 97
--- NOTE | 2019-02-01 20:27 | CON.PCM_ITS ---
- Consult Date of Consult: 02/01/19 - Reason for Consult Chief Complaint: anemia, guaiac positive stools History of Present Illness: 53 y/o male admitted to the hospital for sepsis due to left hand cellulitis. Complains of abdominal pain (generalized) for years. States that he had an EGD and colonoscopy years ago (greater than 10) Denies blood in stools, but found to be stool guaiac positive. Has had emesis. Denies acid indigestion or heartburn, denies history of PUD. Hemoglobin 12.2 upon admission Past Medical History: hypertension diabetes Past Surgical History: Tonsillectomy undescended testicular surgery dental surgery - teeth removed cholecystectomy appendectomy hernia repair as chiled left knee surgery Medications: atorvastatin insulin lisinopril Allergies: morphine, fentanyl, toradol Social history: TOB use former Review of Systems: General - admitted for sepsis, has had weight loss, poor appetite Cardiovascular denies chest pain Pulmonary denies shortness of breath, denies coughing up blood Gastrointestinal complains of dysphagia, complains of abdominal pain Neurological denies seizures Genitourinary denies blood in urine Hematological denies spontaneous/prolonged bleeding Skin has toe ulcer Musculoskeletal has chronic back pain Endocrine has diabetes - poorly controlled Psychological denies hallucinations Physical examination: Vital signs Temp 98.2F HR 85 BP 128/81 RR 18 General WD/WN M in no apparent distress, alert and oriented, not septic appe aring HEENT Normocephalic. EOM intact with sclera clear and no icterus noted. Neck is supple with no jugular venous distention noted. Trachea is midline. Lungs normal breath sounds in all lung bains. No rales/rhonchi/wheezing noted. No labored breathing noted, such as retractions. No cough heard. Heart regular rate. Abdomen soft and benign, generalized tenderness with no peritoneal signs. Normal bowel sounds Extremities no calf tenderness noted. left hand with erythema and swelling Genitourinary/Rectal deferred Skin except for left hand - normal skin integrity. Neurological non focal. Psychological normal affect, patient is calm and appropriate Impression: anemia, generalized abdominal pain Discussion/Plan: I have discussed the above with the patient. I have offered the patient the procedure of upper and lower endoscopies. I have explained the procedures to the patient. I have counseled the patient as to the risks of the procedure, including but not limited to: infection, bleeding, injury to any blood vessels/nerves, perforation of the GI tract, inability to complete the procedure, injury to any intraabdominal organs such as liver/spleen, complications of anesthesia, etc. - the patient understands and agrees to proceed. Plan for upper and lower endoscopy on Wednesday around noon. Begin colon cleansing preparation tomorrow. I have answered all questions to the patient?s satisfaction and the patient has no further questions.
[2019-02-01] MEDS: Atorvastatin Calcium 40 MG Tablet PO (21:57)
[2019-02-01 22:36] LABS: Bedside Glucose 118 mg/dL (70-110)
[2019-02-02] VITALS (11 sets, daily range): BP systolic 118–200; BP diastolic 64–101; PULSE 83–127; RESP 12–20; TEMP 37.4–38.6; O2SAT 96–100; BMI 17.1
[2019-02-02] MEDS: HYDROmorphone 1 MG/ML Syringe IV ×3 (00:26→11:03)
[2019-02-02] MEDS: Vancomycin IV 1,000 MG/200 ML BAG 200 MG IV (02:11)
[2019-02-02] MEDS: oxyCODONE 5 MG Tablet 10 MG PO ×3 (03:41→23:33)
[2019-02-02] MEDS: 0.9% NaCl Peripheral Flush Adult/Peds IV ×2 (05:35→20:22)
[2019-02-02 05:48] LABS: Absolute Lymphocyte Count 1.05 X10^3/ul (0.83-4.51); Absolute Neutrophil Count 21.6 X10^3/uL (2.0-7.7); Basophil# 0.01 X10^3/uL; Eosinophil# 0.03 X10^3/uL; Eosinophils% 0.1 % (0-5); Hematocrit 26.6 % (40-54); Hemoglobin 9.5 g/dl (13.0-16.5); Lymphocyte # 1.05 X10^3/ul (4.0); Lymphocyte % 4.3 % (19-41); Mean Corp Hgb Conc 35.7 g/gl (32-36); Mean Corpuscular Hgb 32.2 pg (27.0-32.0); Mean Corpuscular Volume 90.2 fL (80-94); Mean Platelet Vol. 9.8 fl (6.2-12.0); Monocyte# 1.63 X10^3/uL; Monocyte% 6.6 % (0-10); Neutrophil # 21.58 X10^3/uL (2.7-7.7); Platelet Count 317 K/mm3 (150-450); RBC Distribution Width CV 11.6 % (11.6-14.6); RBC Distribution Width SD 37.4 fl (35.1-43.9); Red Blood Count 2.95 M/mm3 (4.6-6.2); White Blood Count 24.6 K/mm3 (4.4-11.0)
[2019-02-02 05:50] LABS: Differential Indicated SCAN CRITERIA MET; POSITIVE COUNT NO; POSITIVE DIFFERENTIAL YES; POSITIVE MORPHOLOGY YES
[2019-02-02 06:08] LABS: Anion Gap 6 (5-15); BUN 15 mg/dL (7-18); BUN/Creat Ratio 22.6 RATIO (10-20); Calcium,Total 7.7 mg/dL (8.5-10.1); Chloride 106 mmol/L (98-107); Cholesterol 62 mg/dL (200); Creatinine, Serum 0.66 mg/dL (0.70-1.30); EST Glomerular Filtration Rate 133 mL/min (>60); Est Glom Filt Rate - Afr Amer 161 mL/min (>60); Estimated Creatinine Clearance 112.59 ml/min; Glucose 239 mg/dL (74-106); High Density Lipoprotein 14 mg/dL; Magnesium 2.4 mg/dL (1.6-2.6); Phosphorus 2.5 mg/dL (2.5-4.9); Potassium 4.1 mmol/L (3.5-5.1); Sodium Level 137 mmol/L (136-145); Triglycerides 109 mg/dL; Very Low Density Lipoprotein 22 mg/dL (5-40)
[2019-02-02] MEDS: Electrolyte Solution/Peg's 4000 ML 2000 ML PO (06:14)
--- NOTE | 2019-02-02 07:28 | PCM.PROGNOTE ---
Patient Problems: Active and Suspected Problems (Last Reviewed 02/01/19 @ 08:28 by Nan Saucedo DO) Sepsis (Acute) Cellulitis (Acute) Dehydration (Acute) Hypokalemia (Acute) MSSA bacteremia (Acute) Knee effusion, right (Acute) Knee pain, right (Acute) Subjective: Day #2 antibiotics-Zosyn and vancomycin T-max is 99.4. Vital signs are stable. He is 96-98 on room air. All lab was personally reviewed. White blood cell count is 24.6 with a left shift. Hemoglobin today is 9.5, down from 12.2 at admission and stool is heme positive. Platelets are within normal limits. BMP is unremarkable. Creatinine is 0.66 today down from 0.81. Mag and fossa are within normal limits. Calcium is 7.7 but calcium corrected for albumin is within normal limits. 2 of 2 blood cultures are positive for methicillin sensitive staph aureus CT scan of the chest today showed multiple bilateral cavitating pulmonary masses with the largest in the right upper lung measuring 17 mm. He was seen by Dr. Cherry who feels that the changes on the CXR are due to abscesses due to bacteremia not TB. TB workup has been canceled. He continues to complain of pain in the left hand but now also has pain and stiffness in the right knee. This was not present on admission. He is not coughing and he denies shortness of breath or chest pain. He has now developed a pustule over the left thumb. - Physical Exam General: Alert, Oriented x3, Cooperative, - - Cachectic. He looks less ill than yesterday. HEENT: Atraumatic, PERRLA, EOMI, Normocephalic Oral: Moist Mucosa, - - Poor dentition Lungs: Clear to auscultation, Diminished Cardiovascular: Regular rate, Regular Rhythm, Normal S1, Normal S2, No murmurs, No Gallop Abdomen: Bowel Sounds Present, Soft, Non-Distended, Tender - In the mid epigastric area but less so than yesterday., - - No guarding with palpation today Extremities: No clubbing, No cyanosis, Edema - Left hand, - - The right knee is swollen with an obvious joint effusion. I do not appreciate any erythema but there is mildly increased warmth to touch. The left hand remains swollen, erythematous and warm to touch but now has pustules. Skin: No rashes Musculoskeletal: Muscle Wasting Neurological: Cranial nerves II-XII grossly intact, Neuro grossly intact Psych/Mental Status: Appropriate Vital Signs Temp Pulse Resp BP Pulse Ox 99.4 F H 104 H 14 142/78 H 96 02/02/19 02:15 02/02/19 02:15 02/02/19 02:15 02/02/19 02:15 02/02/19 02:15 Oxygen Delivery Method Room Air Weight: 133 lb 9.602 oz Body Mass Index (BMI) 17.2 Finger Stick Blood Glucose 406 Intake and Output for Last 24 Hours 01/31/19 02/01/19 02/02/19 23:59 23:59 23:59 Intake Total 2175 / 2175 2189 / 2189 Output Total 400 / 400 Balance 1775 / 1775 2189 / 2189 Microbiology Past 72 Hours 02/01/19 02:30 Bacteria Detection (PCR) - Preliminary Blood Culture (Wb) - Anticubital Right Staphylococcus aureus Blood Culture - Preliminary 02/01/19 03:50 Blood Culture - Preliminary Blood Culture (Wb) - Anticubital Left 02/01/19 17:08 Stool Occult Blood (LEONIE) - Final Stool Occult Blood Positive Laboratory Tests Past 24 Hrs 02/01/19 02/01/19 02/01/19 02:35 02:35 07:00 WBC RBC Hgb Hct MCV MCH MCHC RDW RDW Differential Plt Count MPV Immature Gran % (Auto) Neut % (Auto) Lymph % (Auto) Beckham % (Auto) Eos % (Auto) Baso % (Auto) Absolute Neuts (auto) Absolute Lymphs (auto) Total Counted Diff Path Review Sodium Potassium Chloride Carbon Dioxide Anion Gap BUN Creatinine Estim Creat Clear Calc Est GFR (MDRD) Af Amer Est GFR (MDRD) Non-Af BUN/Creatinine Ratio Glucose Hemoglobin A1c 10.5 H Serum Osmolality Lactic Acid 2.9 H Uric Acid Calcium Phosphorus 2.6 Magnesium 1.4 L Total Protein (PEP) Albumin (PEP) Globulin (PEP) Albumin/Globulin (PEP) Fjyxj-6-Cdkbesqoc Qcfvs-7-Cpzsnmegs Beta Globulins Gamma Globulins M-Haris Triglycerides Cholesterol LDL Cholesterol VLDL Cholesterol HDL Cholesterol TSH 1.23 Urine Total Protein Urine Albumin U Cphye-0-Vppyjqod U Ohsvc-4-Ikpmqpzj U Beta Globulin U Gamma Globulin U PEP M-Haris Acetone Level 02/01/19 02/01/19 02/01/19 07:00 07:00 07:00 WBC RBC Hgb Hct MCV MCH MCHC RDW RDW Differential Plt Count MPV Immature Gran % (Auto) Neut % (Auto) Lymph % (Auto) Beckham % (Auto) Eos % (Auto) Baso % (Auto) Absolute Neuts (auto) Absolute Lymphs (auto) Total Counted Diff Path Review Sodium Potassium Chloride Carbon Dioxide Anion Gap BUN Creatinine Estim Creat Clear Calc Est GFR (MDRD) Af Amer Est GFR (MDRD) Non-Af BUN/Creatinine Ratio Glucose Hemoglobin A1c Serum Osmolality 291 Lactic Acid Uric Acid 2.2 L Calcium Phosphorus Magnesium Total Protein (PEP) Albumin (PEP) Globulin (PEP) Albumin/Globulin (PEP) Llbli-4-Iauwjcnkh Bknqx-1-Kkyrgjwdm Beta Globulins Gamma Globulins M-Haris Triglycerides Cholesterol LDL Cholesterol VLDL Cholesterol HDL Cholesterol TSH Urine Total Protein Urine Albumin U Xrriw-0-Tilnrfml U Leoki-8-Vpyyibur U Beta Globulin U Gamma Globulin U PEP M-Haris Acetone Level NEGATIVE 02/01/19 02/01/19 02/01/19 11:28 11:28 16:32 WBC RBC Hgb Hct MCV MCH MCHC RDW RDW Differential Plt Count MPV Immature Gran % (Auto) Neut % (Auto) Lymph % (Auto) Beckham % (Auto) Eos % (Auto) Baso % (Auto) Absolute Neuts (auto) Absolute Lymphs (auto) Total Counted Diff Path Review Sodium 137 Potassium 3.6 Chloride 103 Carbon Dioxide 24.0 Anion Gap 10 BUN 14 Creatinine 0.81 Estim Creat Clear Calc 91.74 Est GFR (MDRD) Af Amer 129 Est GFR (MDRD) Non-Af 107 BUN/Creatinine Ratio 17.4 Glucose 69 L Hemoglobin A1c Serum Osmolality Lactic Acid 3.3 H Uric Acid Calcium 8.7 Phosphorus Magnesium Total Protein (PEP) Pending Albumin (PEP) Pending Globulin (PEP) Pending Albumin/Globulin (PEP) Pending Dzqod-2-Dleyhpwmr Pending Heypw-5-Zpdddppkb Pending Beta Globulins Pending Gamma Globulins Pending M-Haris Pending Triglycerides Cholesterol LDL Cholesterol VLDL Cholesterol HDL Cholesterol TSH Urine Total Protein Urine Albumin U Poxco-9-Fgadvtcc U Uzgiy-2-Tczphwzk U Beta Globulin U Gamma Globulin U PEP M-Haris Acetone Level 04/08/1202/02/19 02/02/19 16:36 05:00 05:00 WBC 24.6 H RBC 2.95 L Hgb 9.5 L Hct 26.6 L MCV 90.2 MCH 32.2 H MCHC 35.7 RDW 11.6 RDW Differential 37.4 Plt Count 317 MPV 9.8 Immature Gran % (Auto) 1.000 H Neut % (Auto) 88.0 H Lymph % (Auto) 4.3 L Beckham % (Auto) 6.6 Eos % (Auto) 0.1 Baso % (Auto) 0.0 Absolute Neuts (auto) 21.6 H Absolute Lymphs (auto) 1.05 Total Counted Not Reportable Diff Path Review February foll Sodium 137 Potassium 4.1 Chloride 106 Carbon Dioxide 25.0 Anion Gap 6 BUN 15 Creatinine 0.66 L Estim Creat Clear Calc 112.59 Est GFR (MDRD) Af Amer 161 Est GFR (MDRD) Non-Af 133 BUN/Creatinine Ratio 22.6 H Glucose 239 H Hemoglobin A1c Serum Osmolality Lactic Acid Uric Acid Calcium 7.7 L Phosphorus 2.5 Magnesium 2.4 Total Protein (PEP) Albumin (PEP) Globulin (PEP) Albumin/Globulin (PEP) Nyhkl-5-Isykcrpcj Xlcqx-6-Wfoncuawy Beta Globulins Gamma Globulins M-Haris Triglycerides 109 Cholesterol 62 LDL Cholesterol 26 VLDL Cholesterol 22 HDL Cholesterol 14 L TSH Urine Total Protein Pending Urine Albumin Pending U Ajlov-6-Uotcruop Pending U Rwbbk-9-Mmheydsm Pending U Beta Globulin Pending U Gamma Globulin Pending U PEP M-Haris Pending Acetone Level POC Glucose 02/01/19 02/01/19 02/01/19 22:20 16:34 11:31 POC Glucose 118 H 103 265 H 02/01/19 08:57 POC Glucose 284 H Medical Necessity - Tobacco Use Smoking Status: Former smoker Tobacco Use: Non-smoker Assessment/Plan All Active Problems (Last Reviewed 02/01/19 @ 08:28 by Nan Saucedo DO) Sepsis (Acute) Cellulitis (Acute) Dehydration (Acute) Hypokalemia (Acute) MSSA bacteremia (Acute) Knee effusion, right (Acute) Knee pain, right (Acute) Acute pancreatitis (Resolved) Gastroenteritis (Resolved) Impressions 1. Sepsis secondary to cellulitis of the left hand with bacteremia secondary to methicillin sensitive staph aureus 2. Cellulitis of the left hand 3. Controlled diabetes mellitus type 2 4. Pseudohyponatremia secondary to markedly increased blood sugar 5. Hypokalemia-resolved 6. Abdominal pain associated with nausea and sometimes emesis 7. Anemia 8. Hypomagnesemia 9. Malnutrition-severe 10. Dehydration 11. Hyperlipidemia 12. Hepatitis C antibody positive 13. Unintentional weight loss 14. Chronic back pain with lumbar canal stenosis at L4-5 and L5-S1 secondary to disc disease and facet arthropathy 15. Indeterminate cortical low attenuation change in the right mid cortex not seen on previous examination of 11/14/2018. The area measures 1.6 x 1.5 x 1.4 cm and is not a simple cyst. Malignancy cannot be ruled out at this time 16. Former smoker 17. Left knee effusion-orthopedics consulted to rule out septic arthritis 18. Multiple bilateral pulmonary cavitary lesions-suspect secondary to MSSA from bacteremia Dr. Rankin has been consulted regarding the left hand cellulitis with pustules. CT scan of the hand showed diffuse soft tissue cellulitis with evidence of air bubbles along the dorsal aspect as well as possible abscess collection along the volar aspect of the thenar eminence. No foreign body was seen. Echocardiogram shows a 75% ejection fraction with possible small left pleural effusion. No vegetations were seen. MRI of the lumbar spine has been done but not reported Dr. Cherry has changed the antibiotics to Ancef and clindamycin Dr. Kerr is also participating in management. DC potassium supplementation Dr. Rankin plans I&D this afternoon Recheck lab in the a.m. HIV and hepatitis panels ordered and an hepatitis C viral RNA Will still need workup of right renal mass Code Visit Inpatient E&M: 05009 Subs Hosp L3
--- NOTE | 2019-02-02 07:46 | PN_ITS ---
Patient Problems: Active and Suspected Problems (Last Reviewed 02/01/19 @ 08:28 by Nan Saucedo DO) Sepsis (Acute) Cellulitis (Acute) Dehydration (Acute) Hypokalemia (Acute) MSSA bacteremia (Acute) Knee effusion, right (Acute) Knee pain, right (Acute) Subjective: Day #2 antibiotics-Zosyn and vancomycin T-max is 99.4. Vital signs are stable. He is 96-98 on room air. All lab was personally reviewed. White blood cell count is 24.6 with a left shift. Hemoglobin today is 9.5, down from 12.2 at admission and stool is heme positive. Platelets are within normal limits. BMP is unremarkable. Creatinine is 0.66 today down from 0.81. Mag and fossa are within normal limits. Calcium is 7.7 but calcium corrected for albumin is within normal limits. 2 of 2 blood cultures are positive for methicillin sensitive staph aureus CT scan of the chest today showed multiple bilateral cavitating pulmonary masses with the largest in the right upper lung measuring 17 mm. He was seen by Dr. Cherry who feels that the changes on the CXR are due to abscesses due to bacteremia not TB. TB workup has been canceled. He continues to complain of pain in the left hand but now also has pain and stiffness in the right knee. This was not present on admission. He is not coughing and he denies shortness of breath or chest pain. He has now developed a pustule over the left thumb. - Physical Exam General: Alert, Oriented x3, Cooperative, - - Cachectic. He looks less ill than yesterday. HEENT: Atraumatic, PERRLA, EOMI, Normocephalic Oral: Moist Mucosa, - - Poor dentition Lungs: Clear to auscultation, Diminished Cardiovascular: Regular rate, Regular Rhythm, Normal S1, Normal S2, No murmurs, No Gallop Abdomen: Bowel Sounds Present, Soft, Non-Distended, Tender - In the mid epigastric area but less so than yesterday., - - No guarding with palpation today Extremities: No clubbing, No cyanosis, Edema - Left hand, - - The right knee is swollen with an obvious joint effusion. I do not appreciate any erythema but there is mildly increased warmth to touch. The left hand remains swollen, erythematous and warm to touch but now has pustules. Skin: No rashes Musculoskeletal: Muscle Wasting Neurological: Cranial nerves II-XII grossly intact, Neuro grossly intact Psych/Mental Status: Appropriate Vital Signs Temp Pulse Resp BP Pulse Ox 99.4 F H 104 H 14 142/78 H 96 02/02/19 02:15 02/02/19 02:15 02/02/19 02:15 02/02/19 02:15 02/02/19 02:15 Oxygen Delivery Method Room Air Weight: 133 lb 9.602 oz Body Mass Index (BMI) 17.2 Finger Stick Blood Glucose 406 Intake and Output for Last 24 Hours 01/31/19 02/01/19 02/02/19 23:59 23:59 23:59 Intake Total 2175 / 2175 2189 / 2189 Output Total 400 / 400 Balance 1775 / 1775 2189 / 2189 Microbiology Past 72 Hours 02/01/19 02:30 Bacteria Detection (PCR) - Preliminary Blood Culture (Wb) - Anticubital Right Staphylococcus aureus Blood Culture - Preliminary 02/01/19 03:50 Blood Culture - Preliminary Blood Culture (Wb) - Anticubital Left 02/01/19 17:08 Stool Occult Blood (LEONIE) - Final Stool Occult Blood Positive Laboratory Tests Past 24 Hrs 02/01/19 02/01/19 02/01/19 02:35 02:35 07:00 WBC RBC Hgb Hct MCV MCH MCHC RDW RDW Differential Plt Count MPV Immature Gran % (Auto) Neut % (Auto) Lymph % (Auto) Dougherty % (Auto) Eos % (Auto) Baso % (Auto) Absolute Neuts (auto) Absolute Lymphs (auto) Total Counted Diff Path Review Sodium Potassium Chloride Carbon Dioxide Anion Gap BUN Creatinine Estim Creat Clear Calc Est GFR (MDRD) Af Amer Est GFR (MDRD) Non-Af BUN/Creatinine Ratio Glucose Hemoglobin A1c 10.5 H Serum Osmolality Lactic Acid 2.9 H Uric Acid Calcium Phosphorus 2.6 Magnesium 1.4 L Total Protein (PEP) Albumin (PEP) Globulin (PEP) Albumin/Globulin (PEP) Gyrac-6-Mdlanrowq Eaniz-8-Ygjygejbi Beta Globulins Gamma Globulins M-Haris Triglycerides Cholesterol LDL Cholesterol VLDL Cholesterol HDL Cholesterol TSH 1.23 Urine Total Protein Urine Albumin U Bmgcy-6-Bryhgvxg U Kkmbc-3-Ezfrxvuq U Beta Globulin U Gamma Globulin U PEP M-Haris Acetone Level 02/01/19 02/01/19 02/01/19 07:00 07:00 07:00 WBC RBC Hgb Hct MCV MCH MCHC RDW RDW Differential Plt Count MPV Immature Gran % (Auto) Neut % (Auto) Lymph % (Auto) Dougherty % (Auto) Eos % (Auto) Baso % (Auto) Absolute Neuts (auto) Absolute Lymphs (auto) Total Counted Diff Path Review Sodium Potassium Chloride Carbon Dioxide Anion Gap BUN Creatinine Estim Creat Clear Calc Est GFR (MDRD) Af Amer Est GFR (MDRD) Non-Af BUN/Creatinine Ratio Glucose Hemoglobin A1c Serum Osmolality 291 Lactic Acid Uric Acid 2.2 L Calcium Phosphorus Magnesium Total Protein (PEP) Albumin (PEP) Globulin (PEP) Albumin/Globulin (PEP) Allhg-8-Fhnmqxjui Pompv-5-Gqxdbwvyh Beta Globulins Gamma Globulins M-Haris Triglycerides Cholesterol LDL Cholesterol VLDL Cholesterol HDL Cholesterol TSH Urine Total Protein Urine Albumin U Bnady-9-Vthnzdcs U Fvivn-8-Wpsvkvfd U Beta Globulin U Gamma Globulin U PEP M-Haris Acetone Level NEGATIVE 02/01/19 02/01/19 02/01/19 11:28 11:28 16:32 WBC RBC Hgb Hct MCV MCH MCHC RDW RDW Differential Plt Count MPV Immature Gran % (Auto) Neut % (Auto) Lymph % (Auto) Dougherty % (Auto) Eos % (Auto) Baso % (Auto) Absolute Neuts (auto) Absolute Lymphs (auto) Total Counted Diff Path Review Sodium 137 Potassium 3.6 Chloride 103 Carbon Dioxide 24.0 Anion Gap 10 BUN 14 Creatinine 0.81 Estim Creat Clear Calc 91.74 Est GFR (MDRD) Af Amer 129 Est GFR (MDRD) Non-Af 107 BUN/Creatinine Ratio 17.4 Glucose 69 L Hemoglobin A1c Serum Osmolality Lactic Acid 3.3 H Uric Acid Calcium 8.7 Phosphorus Magnesium Total Protein (PEP) Pending Albumin (PEP) Pending Globulin (PEP) Pending Albumin/Globulin (PEP) Pending Nmxsl-1-Fslvuadtm Pending Rogor-6-Piyuvfjtf Pending Beta Globulins Pending Gamma Globulins Pending M-Haris Pending Triglycerides Cholesterol LDL Cholesterol VLDL Cholesterol HDL Cholesterol TSH Urine Total Protein Urine Albumin U Pchcz-3-Byyibxzo U Wyuxz-0-Uuhxphdb U Beta Globulin U Gamma Globulin U PEP M-Haris Acetone Level 04/08/1202/02/19 02/02/19 16:36 05:00 05:00 WBC 24.6 H RBC 2.95 L Hgb 9.5 L Hct 26.6 L MCV 90.2 MCH 32.2 H MCHC 35.7 RDW 11.6 RDW Differential 37.4 Plt Count 317 MPV 9.8 Immature Gran % (Auto) 1.000 H Neut % (Auto) 88.0 H Lymph % (Auto) 4.3 L Dougherty % (Auto) 6.6 Eos % (Auto) 0.1 Baso % (Auto) 0.0 Absolute Neuts (auto) 21.6 H Absolute Lymphs (auto) 1.05 Total Counted Not Reportable Diff Path Review February foll Sodium 137 Potassium 4.1 Chloride 106 Carbon Dioxide 25.0 Anion Gap 6 BUN 15 Creatinine 0.66 L Estim Creat Clear Calc 112.59 Est GFR (MDRD) Af Amer 161 Est GFR (MDRD) Non-Af 133 BUN/Creatinine Ratio 22.6 H Glucose 239 H Hemoglobin A1c Serum Osmolality Lactic Acid Uric Acid Calcium 7.7 L Phosphorus 2.5 Magnesium 2.4 Total Protein (PEP) Albumin (PEP) Globulin (PEP) Albumin/Globulin (PEP) Rhpss-0-Pondfyzzy Sfytp-6-Ynphlaudf Beta Globulins Gamma Globulins M-Haris Triglycerides 109 Cholesterol 62 LDL Cholesterol 26 VLDL Cholesterol 22 HDL Cholesterol 14 L TSH Urine Total Protein Pending Urine Albumin Pending U Fvxva-5-Zbllxkks Pending U Utfct-0-Ccdalpqi Pending U Beta Globulin Pending U Gamma Globulin Pending U PEP M-Haris Pending Acetone Level POC Glucose 02/01/19 02/01/19 02/01/19 22:20 16:34 11:31 POC Glucose 118 H 103 265 H 02/01/19 08:57 POC Glucose 284 H Medical Necessity - Tobacco Use Smoking Status: Former smoker Tobacco Use: Non-smoker Assessment/Plan All Active Problems (Last Reviewed 02/01/19 @ 08:28 by Nan Saucedo DO) Sepsis (Acute) Cellulitis (Acute) Dehydration (Acute) Hypokalemia (Acute) MSSA bacteremia (Acute) Knee effusion, right (Acute) Knee pain, right (Acute) Acute pancreatitis (Resolved) Gastroenteritis (Resolved) Impressions 1. Sepsis secondary to cellulitis of the left hand with bacteremia secondary to methicillin sensitive staph aureus 2. Cellulitis of the left hand 3. Controlled diabetes mellitus type 2 4. Pseudohyponatremia secondary to markedly increased blood sugar 5. Hypokalemia-resolved 6. Abdominal pain associated with nausea and sometimes emesis 7. Anemia 8. Hypomagnesemia 9. Malnutrition-severe 10. Dehydration 11. Hyperlipidemia 12. Hepatitis C antibody positive 13. Unintentional weight loss 14. Chronic back pain with lumbar canal stenosis at L4-5 and L5-S1 secondary to disc disease and facet arthropathy 15. Indeterminate cortical low attenuation change in the right mid cortex not seen on previous examination of 11/14/2018. The area measures 1.6 x 1.5 x 1.4 cm and is not a simple cyst. Malignancy cannot be ruled out at this time 16. Former smoker 17. Left knee effusion-orthopedics consulted to rule out septic arthritis 18. Multiple bilateral pulmonary cavitary lesions-suspect secondary to MSSA from bacteremia Dr. Rankin has been consulted regarding the left hand cellulitis with pustules. CT scan of the hand showed diffuse soft tissue cellulitis with evidence of air bubbles along the dorsal aspect as well as possible abscess collection along the volar aspect of the thenar eminence. No foreign body was seen. Echocardiogram shows a 75% ejection fraction with possible small left pleural effusion. No vegetations were seen. MRI of the lumbar spine has been done but not reported Dr. Cherry has changed the antibiotics to Ancef and clindamycin Dr. Kerr is also participating in management. DC potassium supplementation Dr. Rankin plans I&D this afternoon Recheck lab in the a.m. HIV and hepatitis panels ordered and an hepatitis C viral RNA Will still need workup of right renal mass Code Visit Inpatient E&M: 68382 Subs Hosp L3
--- NOTE | 2019-02-02 07:47 | PCM.CONS.PUL ---
Reason for Consult Date of Consultation: 02/02/19 Reason for Consultation: Cavitary lung lesions History of Present Illness: The patient is a 53-year-old male, with a history as outlined below, who presented to the emergency department on February 01 with complaints of abdominal pain, nausea, vomiting and diarrhea, along with left hand pain and swelling. The patient endorses that he fell approximately 1 week ago and that his left hand has been painful with increasing swelling since that time. He also reports rather new onset right knee pain and swelling as well. The patient was previously incarcerated for approximately 10 years, but reports that he was released in 1997. He reports having negative tests for HIV and TB previously. He was never exposed to anyone that was positive for TB. He is a lifelong non-smoker. He does report a 150 pound unintentional weight loss over the last 10+ years. He denies fevers, chills, night sweats or hemoptysis. On presentation to the emergency department, the patient was noted to be hypertensive and maintaining oxygen saturations on room air. Laboratory evaluation revealed an elevated white blood cell count to 25,000. Chemistry profile was notable for a sodium of 127, potassium of 3.4, glucose of 624 and creatinine is 0.97. Magnesium was low at 1.4. A CT abdomen/pelvis was obtained which did reveal trace fluid in the gallbladder fossa and posterior to the pancreas of questionable significance. The patient was also incidentally noted to have a cavitary lesion in the left lower lobe along with a vague nodular density in the lingula. Additionally, there was note of a right mid kidney cortical lesion which could represent a complex cyst versus early neoplasm. The patient received supplemental IV fluids and was admitted to the medical surgical floor for treatment of left hand cellulitis and hyperglycemia. The patient was subsequently started on both vancomycin and Zosyn. Blood cultures obtained in the emergency department were found to be positive for staph aureus. A CT chest was subsequently obtained on February 02 and revealed multiple bilateral cavitary pulmonary lesions, which appeared more peripherally based. 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 ketorolac [From Toradol] Adverse Reaction (Verified 02/01/19 08:01) real sluggish Home Medications: Ambulatory Orders Medication Instructions Recorded insulin glargine 100 30 unit SC DAILY ml 08/18/18 unit-lixisenatide 33 mcg/mL subcutaneous pen lisinopril 10 mg tablet 10 mg PO DAILY #90 tab 10/04/18 Atorvastatin Calcium 40 mg PO DAILY 11/14/18 Insulin Lispro [Humalog Kwikpen] 15 unit SC TIDCM 11/14/18 Surgical History: Surgical History (Last Reviewed 02/01/19 @ 08:28 by Nan Saucedo DO) History of appendectomy Z90.49 S/P laparoscopic cholecystectomy Z90.49 Surgical History: appendectomy, cholecystectomy, - Psychiatric History: No pertinent psych hx Lives: Spouse/ Significant Other Smoking Status: Former smoker Tobacco Use: Non-smoker Alcohol: None Drugs: None - *Family History Maternal Family History: Family History (Last Reviewed 02/01/19 @ 08:28 by Nan Saucedo DO) Father Diabetes Mother Diabetes History Items: Diabetes Paternal Family History: Family History (Last Reviewed 02/01/19 @ 08:28 by Nan Saucedo DO) Father Diabetes Mother Diabetes History Items: Heart Disease - CAD s/p CABG history. Patient notes that his paternal grandmother had diabetes. Review of Systems Constitutional: Reports: Anorexia, Weakness, Fatigue. Denies: Night Sweats Eyes: Denies: Blurred vision, Double vision HEENT: Denies: Head Aches, Sinus Congestion, Sinus Drainage Cardiovascular: Denies: Chest Pain, Palpitations Respiratory: Denies: Hemoptysis, Shortness of Breath Gastrointestinal: Reports: Abdominal Pain, Nausea, Vomiting Genitourinary: Denies: Dysuria Musculoskeletal: Reports: Back Pain Skin: Reports: Skin Changes Neurological: Denies: Numbness, Tingling, Focal weakness Psychiatric: Denies: Anxiety, Depression, Homicidal Ideations, Suicidal Ideations Hematologic/ Lymphatic: Reports: Adenopathy, Anemia Patient Problems: Active and Suspected Problems (Last Reviewed 02/01/19 @ 08:28 by Nan Saucedo DO) Sepsis (Acute) Cellulitis (Acute) Dehydration (Acute) Hypokalemia (Acute) MSSA bacteremia (Acute) Knee effusion, right (Acute) Knee pain, right (Acute) Objective: The patient's most recent lab work, culture data and imaging studies have all been personally reviewed. Blood cultures dated February 01 were positive for staph aureus. Stool for occult blood was noted to be positive. SPEP and UPEP are pending. - Physical Exam General: Alert, Oriented x3, Cooperative, No apparent distress, - - Rather cachectic and malnourished in appearance HEENT: Atraumatic, PERRLA, Normocephalic Oral: No Gingival or Mucosal Lesions/ Ulcerations Neck: Supple, No Nodes, Trachea Midline Lungs: No rhonchi, No wheeze, No rales, Diminished Cardiovascular: Normal S1, Normal S2, Murmur, Tachycardic Abdomen: Bowel Sounds Present, Soft, Non Tender Extremities: No clubbing, No cyanosis, - - Left hand is diffusely edematous and erythematous with pustule present overlying the patient's thumb. The patient's right knee is also red and swollen Skin: - - As noted above. Musculoskeletal: Cachexia, Muscle Wasting Neurological: Cranial nerves II-XII grossly intact, Neuro grossly intact Psych/Mental Status: Normal Affect, Appropriate Vital Signs Temp Pulse Resp BP Pulse Ox 37.4 C H 104 H 14 142/78 H 96 02/02/19 02:15 02/02/19 02:15 02/02/19 02:15 02/02/19 02:15 02/02/19 02:15 Oxygen Delivery Method Room Air Weight: 133 lb 9.602 oz Body Mass Index (BMI) 17.2 Finger Stick Blood Glucose 406 Intake and Output for Last 24 Hours 01/31/19 02/01/19 02/02/19 23:59 23:59 23:59 Intake Total 2175 / 2175 2189 / 2189 Output Total 400 / 400 Balance 1775 / 1775 2189 / 2189 Microbiology Past 72 Hours 02/01/19 02:30 Bacteria Detection (PCR) - Final Blood Culture (Wb) - Anticubital Right Staphylococcus aureus Blood Culture - Preliminary Staphylococcus aureus 02/01/19 03:50 Blood Culture - Preliminary Blood Culture (Wb) - Anticubital Left 02/01/19 17:08 Stool Occult Blood (LEONIE) - Final Stool Occult Blood Positive Laboratory Tests Past 24 Hrs 02/01/19 02/01/19 02/01/19 02:35 02:35 07:00 WBC RBC Hgb Hct MCV MCH MCHC RDW RDW Differential Plt Count MPV Immature Gran % (Auto) Neut % (Auto) Lymph % (Auto) [place] % (Auto) Eos % (Auto) Baso % (Auto) Absolute Neuts (auto) Absolute Lymphs (auto) Total Counted Diff Path Review Sodium Potassium Chloride Carbon Dioxide Anion Gap BUN Creatinine Estim Creat Clear Calc Est GFR (MDRD) Af Amer Est GFR (MDRD) Non-Af BUN/Creatinine Ratio Glucose Hemoglobin A1c 10.5 H Lactic Acid Uric Acid 2.2 L Calcium Phosphorus 2.6 Magnesium 1.4 L Total Protein (PEP) Albumin (PEP) Globulin (PEP) Albumin/Globulin (PEP) Qjlfk-0-Qclepgaiu Obldw-5-Sajtglehj Beta Globulins Gamma Globulins M-Haris Triglycerides Cholesterol LDL Cholesterol VLDL Cholesterol HDL Cholesterol TSH 1.23 Urine Total Protein Urine Albumin U Piwmb-5-Mcpwrwyg U Xijof-4-Mkuvgbwq U Beta Globulin U Gamma Globulin U PEP M-Haris 02/01/19 02/01/19 02/01/19 11:28 11:28 16:32 WBC RBC Hgb Hct MCV MCH MCHC RDW RDW Differential Plt Count MPV Immature Gran % (Auto) Neut % (Auto) Lymph % (Auto) [place] % (Auto) Eos % (Auto) Baso % (Auto) Absolute Neuts (auto) Absolute Lymphs (auto) Total Counted Diff Path Review Sodium 137 Potassium 3.6 Chloride 103 Carbon Dioxide 24.0 Anion Gap 10 BUN 14 Creatinine 0.81 Estim Creat Clear Calc 91.74 Est GFR (MDRD) Af Amer 129 Est GFR (MDRD) Non-Af 107 BUN/Creatinine Ratio 17.4 Glucose 69 L Hemoglobin A1c Lactic Acid 3.3 H Uric Acid Calcium 8.7 Phosphorus Magnesium Total Protein (PEP) Pending Albumin (PEP) Pending Globulin (PEP) Pending Albumin/Globulin (PEP) Pending Tlbzf-4-Blrqikwvo Pending Fdztc-1-Erqowwjzt Pending Beta Globulins Pending Gamma Globulins Pending M-Haris Pending Triglycerides Cholesterol LDL Cholesterol VLDL Cholesterol HDL Cholesterol TSH Urine Total Protein Urine Albumin U Ldiyq-8-Xhxsmojc U Vniqt-6-Iwtmnixf U Beta Globulin U Gamma Globulin U PEP M-Haris 02/01/19 02/02/19 02/02/19 16:36 05:00 05:00 WBC 24.6 H RBC 2.95 L Hgb 9.5 L Hct 26.6 L MCV 90.2 MCH 32.2 H MCHC 35.7 RDW 11.6 RDW Differential 37.4 Plt Count 317 MPV 9.8 Immature Gran % (Auto) 1.000 H Neut % (Auto) 88.0 H Lymph % (Auto) 4.3 L [place] % (Auto) 6.6 Eos % (Auto) 0.1 Baso % (Auto) 0.0 Absolute Neuts (auto) 21.6 H Absolute Lymphs (auto) 1.05 Total Counted Not Reportable Diff Path Review May foll Sodium 137 Potassium 4.1 Chloride 106 Carbon Dioxide 25.0 Anion Gap 6 BUN 15 Creatinine 0.66 L Estim Creat Clear Calc 112.59 Est GFR (MDRD) Af Amer 161 Est GFR (MDRD) Non-Af 133 BUN/Creatinine Ratio 22.6 H Glucose 239 H Hemoglobin A1c Lactic Acid Uric Acid Calcium 7.7 L Phosphorus 2.5 Magnesium 2.4 Total Protein (PEP) Albumin (PEP) Globulin (PEP) Albumin/Globulin (PEP) Ezncr-2-Cicruisid Xeenl-0-Qngqcwyqn Beta Globulins Gamma Globulins M-Haris Triglycerides 109 Cholesterol 62 LDL Cholesterol 26 VLDL Cholesterol 22 HDL Cholesterol 14 L TSH Urine Total Protein Pending Urine Albumin Pending U Sdzyd-0-Gdvbcnqj Pending U Rxajj-1-Agjlswww Pending U Beta Globulin Pending U Gamma Globulin Pending U PEP M-Haris Pending POC Glucose 02/01/19 02/01/19 02/01/19 22:20 16:34 11:31 POC Glucose 118 H 103 265 H 02/01/19 08:57 POC Glucose 284 H Clinical Impression(s) from Imaging Studies Abdomen/Pelvis CT 02/01/19 02:35 IMPRESSION: Indeterminate lingula and left lower lobe parenchymal changes may represent an inflammatory/infectious process, peripheral infarct cannot be on limited examination. These are likely new findings since previous examination allowing for changing technique. Consider CT examination chest for further detail. Trace fluid in the gallbladder fossa and posterior to the pancreas and superior retroperitoneum unchanged since 10/2018 of questionable significance. There is an indeterminant cortical lesion in the right mid kidney which was not present on previous examination and does not represent a simple cyst. Further assessment is recommended to exclude complex cyst versus early neoplasm. Other nonacute findings as outlined above. Electronically Signed: Carolyn Gamez MD at 5:34 EDT , Service support , Hand X-Ray 02/01/19 03:10 IMPRESSION: There is no acute displaced fracture or dislocation. Electronically Signed: Carolyn Gamez MD at 3:23 EDT , Service support , Chest X-Ray 02/01/19 05:40 IMPRESSION: No acute cardiopulmonary disease. No significant interval change. Electronically Signed: Carolyn Gamez MD at 6:29 EDT , Service support , Chest CT 02/02/19 08:07 IMPRESSION: There multiple bilateral cavitating pulmonary masses. Largest is in the RIGHT upper lung measuring 17 mm. These could be necrotic metastases or septic emboli. There is NO pleural effusion or pneumothorax. Normal heart and pericardium. There is LEFT axillary lymphadenopathy. Electronically Signed: David Wright MD at 6:14 EDT , Service support , Assessment/Plan All Active Problems (Last Reviewed 02/01/19 @ 08:28 by Nan Saucedo DO) Sepsis (Acute) Cellulitis (Acute) Dehydration (Acute) Hypokalemia (Acute) MSSA bacteremia (Acute) Knee effusion, right (Acute) Knee pain, right (Acute) Acute pancreatitis (Resolved) Gastroenteritis (Resolved) RECOMMENDATIONS: 1. Continue current antimicrobial coverage, pending evaluation by infectious diseases. 2. Echocardiogram is pending. 3. Surgery to evaluate hand and orthopedics to evaluate right knee. 4. Obtain repeat blood cultures. 5. Pain management per hospitalist. IMPRESSIONS: 1. Severe sepsis secondary to staph bacteremia The patient presented with left hand swelling and erythema and has now developed a pustule. This is likely the source for the patient's bacteremia. Blood cultures noted to be positive for MSSA. Infectious diseases has been consulted to assist with management. Continue current antimicrobials as ordered. Obtain repeat blood cultures and echocardiogram. Surgery has been consulted to evaluate the patient's hand. Given the patient's right knee swelling and erythema, concern for septic arthritis. Orthopedics has also been consulted. 2. Abnormal chest CT with bilateral cavitary lung lesions The patient's CT chest was personally reviewed. The imaging findings seem most consistent with septic emboli in the setting of #1. I have a low clinical index of suspicion for underlying pulmonary TB. Will await evaluation by infectious diseases. 3. Unintentional weight loss Concern for some form of occult underlying malignancy, especially in light of occult positive stools. Surgery to consider endoscopy once medically stabilized. SPEP/UPEP currently pending. 4. Personal history of HCV Hepatitis C PCR currently pending. This note was generated with [employer] software. It may contain incorrect words, spelling, and punctuation that were not noted in checking the note before signing. Code Visit Inpatient E&M: 11684 Init Hosp L3
--- NOTE | 2019-02-02 07:59 | CON.PCM_ITS ---
Reason for Consult Date of Consultation: 02/02/19 Reason for Consultation: Cavitary lung lesions History of Present Illness: The patient is a 53-year-old male, with a history as outlined below, who presented to the emergency department on February 01 with complaints of abdominal pain, nausea, vomiting and diarrhea, along with left hand pain and swelling. The patient endorses that he fell approximately 1 week ago and that his left hand has been painful with increasing swelling since that time. He also reports rather new onset right knee pain and swelling as well. The patient was previously incarcerated for approximately 10 years, but reports that he was released in 1997. He reports having negative tests for HIV and TB previously. He was never exposed to anyone that was positive for TB. He is a lifelong non- smoker. He does report a 150 pound unintentional weight loss over the last 10+ years. He denies fevers, chills, night sweats or hemoptysis. On presentation to the emergency department, the patient was noted to be hypertensive and maintaining oxygen saturations on room air. Laboratory evaluation revealed an elevated white blood cell count to 25,000. Chemistry profile was notable for a sodium of 127, potassium of 3.4, glucose of 624 and creatinine is 0.97. Magnesium was low at 1.4. A CT abdomen/pelvis was obtained which did reveal trace fluid in the gallbladder fossa and posterior to the pancreas of questionable significance. The patient was also incidentally noted to have a cavitary lesion in the left lower lobe along with a vague nodular density in the lingula. Additionally, there was note of a right mid kidney cortical lesion which could represent a complex cyst versus early neoplasm. The patient received supplemental IV fluids and was admitted to the medical surgical floor for treatment of left hand cellulitis and hyperglycemia. The patient was subsequently started on both vancomycin and Zosyn. Blood cultures obtained in the emergency department were found to be positive for staph aureus. A CT chest was subsequently obtained on February 02 and revealed multiple bilateral cavitary pulmonary lesions, which appeared more peripherally based. 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 ketorolac [From Toradol] Adverse Reaction (Verified 02/01/19 08:01) real sluggish Home Medications: Ambulatory Orders Medication Instructions Recorded insulin glargine 100 30 unit SC DAILY ml 08/18/18 unit-lixisenatide 33 mcg/mL subcutaneous pen lisinopril 10 mg tablet 10 mg PO DAILY #90 tab 10/04/18 Atorvastatin Calcium 40 mg PO DAILY 11/14/18 Insulin Lispro [Humalog Kwikpen] 15 unit SC TIDCM 11/14/18 Surgical History: Surgical History (Last Reviewed 02/01/19 @ 08:28 by Nan Saucedo DO) History of appendectomy Z90.49 S/P laparoscopic cholecystectomy Z90.49 Surgical History: appendectomy, cholecystectomy, - Psychiatric History: No pertinent psych hx Lives: Spouse/ Significant Other Smoking Status: Former smoker Tobacco Use: Non-smoker Alcohol: None Drugs: None - *Family History Maternal Family History: Family History (Last Reviewed 02/01/19 @ 08:28 by Nan Saucedo DO) Father Diabetes Mother Diabetes History Items: Diabetes Paternal Family History: Family History (Last Reviewed 02/01/19 @ 08:28 by Nan Saucedo DO) Father Diabetes Mother Diabetes History Items: Heart Disease - CAD s/p CABG history. Patient notes that his paternal grandmother had diabetes. Review of Systems Constitutional: Reports: Anorexia, Weakness, Fatigue. Denies: Night Sweats Eyes: Denies: Blurred vision, Double vision HEENT: Denies: Head Aches, Sinus Congestion, Sinus Drainage Cardiovascular: Denies: Chest Pain, Palpitations Respiratory: Denies: Hemoptysis, Shortness of Breath Gastrointestinal: Reports: Abdominal Pain, Nausea, Vomiting Genitourinary: Denies: Dysuria Musculoskeletal: Reports: Back Pain Skin: Reports: Skin Changes Neurological: Denies: Numbness, Tingling, Focal weakness Psychiatric: Denies: Anxiety, Depression, Homicidal Ideations, Suicidal Ideations Hematologic/ Lymphatic: Reports: Adenopathy, Anemia Patient Problems: Active and Suspected Problems (Last Reviewed 02/01/19 @ 08:28 by Nan Saucedo DO) Sepsis (Acute) Cellulitis (Acute) Dehydration (Acute) Hypokalemia (Acute) MSSA bacteremia (Acute) Knee effusion, right (Acute) Knee pain, right (Acute) Objective: The patient's most recent lab work, culture data and imaging studies have all been personally reviewed. Blood cultures dated February 01 were positive for staph aureus. Stool for occult blood was noted to be positive. SPEP and UPEP are pending. - Physical Exam General: Alert, Oriented x3, Cooperative, No apparent distress, - - Rather cachectic and malnourished in appearance HEENT: Atraumatic, PERRLA, Normocephalic Oral: No Gingival or Mucosal Lesions/ Ulcerations Neck: Supple, No Nodes, Trachea Midline Lungs: No rhonchi, No wheeze, No rales, Diminished Cardiovascular: Normal S1, Normal S2, Murmur, Tachycardic Abdomen: Bowel Sounds Present, Soft, Non Tender Extremities: No clubbing, No cyanosis, - - Left hand is diffusely edematous and erythematous with pustule present overlying the patient's thumb. The patient's right knee is also red and swollen Skin: - - As noted above. Musculoskeletal: Cachexia, Muscle Wasting Neurological: Cranial nerves II-XII grossly intact, Neuro grossly intact Psych/Mental Status: Normal Affect, Appropriate Vital Signs Temp Pulse Resp BP Pulse Ox 37.4 C H 104 H 14 142/78 H 96 02/02/19 02:15 02/02/19 02:15 02/02/19 02:15 02/02/19 02:15 02/02/19 02:15 Oxygen Delivery Method Room Air Weight: 133 lb 9.602 oz Body Mass Index (BMI) 17.2 Finger Stick Blood Glucose 406 Intake and Output for Last 24 Hours 01/31/19 02/01/19 02/02/19 23:59 23:59 23:59 Intake Total 2175 / 2175 2189 / 2189 Output Total 400 / 400 Balance 1775 / 1775 2189 / 2189 Microbiology Past 72 Hours 02/01/19 02:30 Bacteria Detection (PCR) - Final Blood Culture (Wb) - Anticubital Right Staphylococcus aureus Blood Culture - Preliminary Staphylococcus aureus 02/01/19 03:50 Blood Culture - Preliminary Blood Culture (Wb) - Anticubital Left 02/01/19 17:08 Stool Occult Blood (LEONIE) - Final Stool Occult Blood Positive Laboratory Tests Past 24 Hrs 02/01/19 02/01/19 02/01/19 02:35 02:35 07:00 WBC RBC Hgb Hct MCV MCH MCHC RDW RDW Differential Plt Count MPV Immature Gran % (Auto) Neut % (Auto) Lymph % (Auto) [place] % (Auto) Eos % (Auto) Baso % (Auto) Absolute Neuts (auto) Absolute Lymphs (auto) Total Counted Diff Path Review Sodium Potassium Chloride Carbon Dioxide Anion Gap BUN Creatinine Estim Creat Clear Calc Est GFR (MDRD) Af Amer Est GFR (MDRD) Non-Af BUN/Creatinine Ratio Glucose Hemoglobin A1c 10.5 H Lactic Acid Uric Acid 2.2 L Calcium Phosphorus 2.6 Magnesium 1.4 L Total Protein (PEP) Albumin (PEP) Globulin (PEP) Albumin/Globulin (PEP) Jhqfx-1-Fytakinst Zacpt-2-Txuapopor Beta Globulins Gamma Globulins M-Haris Triglycerides Cholesterol LDL Cholesterol VLDL Cholesterol HDL Cholesterol TSH 1.23 Urine Total Protein Urine Albumin U Qzlie-7-Gdnizcmh U Mqele-0-Dfzebezs U Beta Globulin U Gamma Globulin U PEP M-Haris 02/01/19 02/01/19 02/01/19 11:28 11:28 16:32 WBC RBC Hgb Hct MCV MCH MCHC RDW RDW Differential Plt Count MPV Immature Gran % (Auto) Neut % (Auto) Lymph % (Auto) [place] % (Auto) Eos % (Auto) Baso % (Auto) Absolute Neuts (auto) Absolute Lymphs (auto) Total Counted Diff Path Review Sodium 137 Potassium 3.6 Chloride 103 Carbon Dioxide 24.0 Anion Gap 10 BUN 14 Creatinine 0.81 Estim Creat Clear Calc 91.74 Est GFR (MDRD) Af Amer 129 Est GFR (MDRD) Non-Af 107 BUN/Creatinine Ratio 17.4 Glucose 69 L Hemoglobin A1c Lactic Acid 3.3 H Uric Acid Calcium 8.7 Phosphorus Magnesium Total Protein (PEP) Pending Albumin (PEP) Pending Globulin (PEP) Pending Albumin/Globulin (PEP) Pending Hlyjw-6-Jijyvaneo Pending Cigqx-9-Osdevysps Pending Beta Globulins Pending Gamma Globulins Pending M-Haris Pending Triglycerides Cholesterol LDL Cholesterol VLDL Cholesterol HDL Cholesterol TSH Urine Total Protein Urine Albumin U Wpgjv-4-Txziopjh U Xmjxq-0-Hvbvbffm U Beta Globulin U Gamma Globulin U PEP M-Haris 02/01/19 02/02/19 02/02/19 16:36 05:00 05:00 WBC 24.6 H RBC 2.95 L Hgb 9.5 L Hct 26.6 L MCV 90.2 MCH 32.2 H MCHC 35.7 RDW 11.6 RDW Differential 37.4 Plt Count 317 MPV 9.8 Immature Gran % (Auto) 1.000 H Neut % (Auto) 88.0 H Lymph % (Auto) 4.3 L [place] % (Auto) 6.6 Eos % (Auto) 0.1 Baso % (Auto) 0.0 Absolute Neuts (auto) 21.6 H Absolute Lymphs (auto) 1.05 Total Counted Not Reportable Diff Path Review May foll Sodium 137 Potassium 4.1 Chloride 106 Carbon Dioxide 25.0 Anion Gap 6 BUN 15 Creatinine 0.66 L Estim Creat Clear Calc 112.59 Est GFR (MDRD) Af Amer 161 Est GFR (MDRD) Non-Af 133 BUN/Creatinine Ratio 22.6 H Glucose 239 H Hemoglobin A1c Lactic Acid Uric Acid Calcium 7.7 L Phosphorus 2.5 Magnesium 2.4 Total Protein (PEP) Albumin (PEP) Globulin (PEP) Albumin/Globulin (PEP) Fxxgq-7-Tusxzexhh Pcekx-9-Irfrlwlrg Beta Globulins Gamma Globulins M-Haris Triglycerides 109 Cholesterol 62 LDL Cholesterol 26 VLDL Cholesterol 22 HDL Cholesterol 14 L TSH Urine Total Protein Pending Urine Albumin Pending U Szjqp-5-Uygnmdcx Pending U Awzsq-2-Hotujhue Pending U Beta Globulin Pending U Gamma Globulin Pending U PEP M-Haris Pending POC Glucose 02/01/19 02/01/19 02/01/19 22:20 16:34 11:31 POC Glucose 118 H 103 265 H 02/01/19 08:57 POC Glucose 284 H Clinical Impression(s) from Imaging Studies Abdomen/Pelvis CT 02/01/19 02:35 IMPRESSION: Indeterminate lingula and left lower lobe parenchymal changes may represent an inflammatory/infectious process, peripheral infarct cannot be on limited examination. These are likely new findings since previous examination allowing for changing technique. Consider CT examination chest for further detail. Trace fluid in the gallbladder fossa and posterior to the pancreas and superior retroperitoneum unchanged since 10/2018 of questionable significance. There is an indeterminant cortical lesion in the right mid kidney which was not present on previous examination and does not represent a simple cyst. Further assessment is recommended to exclude complex cyst versus early neoplasm. Other nonacute findings as outlined above. Electronically Signed: Carolyn Gamez MD at 5:34 EDT , Service support , Hand X-Ray 02/01/19 03:10 IMPRESSION: There is no acute displaced fracture or dislocation. Electronically Signed: Carolyn Gamez MD at 3:23 EDT , Service support , Chest X-Ray 02/01/19 05:40 IMPRESSION: No acute cardiopulmonary disease. No significant interval change. Electronically Signed: Carolyn Gamez MD at 6:29 EDT , Service support , Chest CT 02/02/19 08:07 IMPRESSION: There multiple bilateral cavitating pulmonary masses. Largest is in the RIGHT upper lung measuring 17 mm. These could be necrotic metastases or septic emboli. There is NO pleural effusion or pneumothorax. Normal heart and pericardium. There is LEFT axillary lymphadenopathy. Electronically Signed: David Wright MD at 6:14 EDT , Service support , Assessment/Plan All Active Problems (Last Reviewed 02/01/19 @ 08:28 by Nan Saucedo DO) Sepsis (Acute) Cellulitis (Acute) Dehydration (Acute) Hypokalemia (Acute) MSSA bacteremia (Acute) Knee effusion, right (Acute) Knee pain, right (Acute) Acute pancreatitis (Resolved) Gastroenteritis (Resolved) RECOMMENDATIONS: 1. Continue current antimicrobial coverage, pending evaluation by infectious diseases. 2. Echocardiogram is pending. 3. Surgery to evaluate hand and orthopedics to evaluate right knee. 4. Obtain repeat blood cultures. 5. Pain management per hospitalist. IMPRESSIONS: 1. Severe sepsis secondary to staph bacteremia The patient presented with left hand swelling and erythema and has now developed a pustule. This is likely the source for the patient's bacteremia. Blood cultures noted to be positive for MSSA. Infectious diseases has been consulted to assist with management. Continue current antimicrobials as ordered. Obtain repeat blood cultures and echocardiogram. Surgery has been consulted to evaluate the patient's hand. Given the patient's right knee swelling and erythema, concern for septic arthritis. Orthopedics has also been consulted. 2. Abnormal chest CT with bilateral cavitary lung lesions The patient's CT chest was personally reviewed. The imaging findings seem most consistent with septic emboli in the setting of #1. I have a low clinical index of suspicion for underlying pulmonary TB. Will await evaluation by infectious diseases. 3. Unintentional weight loss Concern for some form of occult underlying malignancy, especially in light of occult positive stools. Surgery to consider endoscopy once medically stabilized. SPEP/UPEP currently pending. 4. Personal history of HCV Hepatitis C PCR currently pending. This note was generated with [employer] software. It may contain incorrect words, spelling, and punctuation that were not noted in checking the note before signing. Code Visit Inpatient E&M: 77448 Init Hosp L3
--- NOTE | 2019-02-02 08:07 | CT_ITS ---
STUDY: CT CHEST WITH CONTRAST REASON FOR EXAM: Male, 53 years old. Pulmonary nodules RADIATION DOSAGE (If Supplied By Facility): CTDIvol = ( 14.01 ) mGy, DLP = ( 322.14 ) mGycm TECHNIQUE: Transaxial imaging was performed following intravenous administration of 100ML IV Isovue 300. Individualized dose optimization techniques were used for this CT. COMPARISON: None. FINDINGS: There multiple bilateral cavitating pulmonary masses. Largest is in the RIGHT upper lung measuring 17 mm. These could be necrotic metastases or septic emboli. The lungs are expanded. There is NO pleural effusion or pneumothorax. Normal heart and pericardium. Normal mediastinum. Normal hilar regions. Normal enhanced pulmonary arteries. Normal aorta arch and descending thoracic aorta. Normal osseous structures. There is LEFT axillary lymphadenopathy. There is no demonstrated abnormality of the visualized upper abdomen. CT/Chest WITH Contrast IMPRESSION: There multiple bilateral cavitating pulmonary masses. Largest is in the RIGHT upper lung measuring 17 mm. These could be necrotic metastases or septic emboli. There is NO pleural effusion or pneumothorax. Normal heart and pericardium. There is LEFT axillary lymphadenopathy. Electronically Signed: David Wright MD at 6:14 EDT , Service support ,
--- NOTE | 2019-02-02 09:12 | ECHOD_ITS ---
Reason For Study: DYSPNEA Procedure This was a 2D Doppler, Color Flow transthoracic echocardiogram. Technically difficult due to elevated heart rate. Exam performed portable in patient room. Left Ventricle Normal size and thickness. The estimated ejection fraction is 75 %. No regional wall motion abnormalities noted. Right Ventricle Normal size and thickness. Normal systolic function. Atria Normal left atrium. Normal right atrium. Normal atrial septum. Mitral Valve The mitral valve is structurally normal. No prolapse or stenosis seen. Tricuspid Valve Normal tricuspid valve. Trivial tricuspid valve insufficiency. Unable to estimate RV systolic pressure/pulmonary artery pressure due to technically difficult study. Aortic Valve Normal aortic valve. Trisinus/trileaflet aortic valve. Pulmonic Valve Normal pulmonic valve. Great Vessels Normal aortic root. Normal arch. Normal inferior vena cava. Inferior vena cava collapse with sniff. Pericardium/Pleural No pericardial effusion. Small left pleural effusion. MMode/2D Measurements & Calculations LVIDd: 4.3 cm IVSd: 0.79 cm Ao root diam: 3.3 cm LVIDs: 2.6 cm LVPWd: 0.69 cm RVDd: 3.4 cm FS: 39.4 % LAV(MOD-bp): 61.9 ml LA A4 area: 19.5 cm2 LA dimension(2D): 3.8 cm LAV(MOD-bp) Indexed: 33.9 ml/m2 LAV(MOD-sp2): 64.7 ml LAV(MOD-sp4): 58.4 ml RA A4 area: 16.4 cm2 Time Measurements MV dec time: 0.23 sec Doppler Measurements & Calculations MV E max jose francisco: 71.0 cm/sec Lat Peak E' Jose Francisco: 16.6 cm/sec Med Peak E' Jose Francisco: 9.4 cm/sec MV A max jose francisco: 101.6 cm/sec E/E' lat: 4.3 E/E' med: 7.6 MV E/A: 0.70 Ao V2 max: 144.0 cm/sec LV V1 max: 134.8 cm/sec Ao max P.3 mmHg LV V1 max P.3 mmHg Interpretation Summary The estimated ejection fraction is 75 %. Trivial tricuspid valve insufficiency. Unable to estimate RV systolic pressure/pulmonary artery pressure due to technically difficult study. Possible small left pleural effusion. Recommend clinical correlation. There is no comparison study available. Ordering Physician: Eamon Cherry Referring Physician: Guido Miller Performed By: Magui Chapman RDCS, RVT
[2019-02-02] MEDS: Sodium Chloride 3% 500 ML IV.SOLN. INHALATION (09:48)
--- NOTE | 2019-02-02 09:54 | CT_ITS ---
STUDY: HAND LEFT REASON FOR EXAM: Male, 53 years old. Soft tissue swelling. Possible abscess. RADIATION DOSAGE (If Supplied By Facility): CTDIvol = ( 24.58 ) mGy, DLP = ( 683.53 ) mGycm. Individualized dose optimization techniques were used for this CT.? TECHNIQUE: Multiple axial tomographic images of the head were obtained without intravenous contrast demonstration. Coronal and sagittal reconstruction was obtained as well. COMPARISON: None. FINDINGS: Is evidence of diffuse soft tissue swelling. This is worse in the thenar space. Tiny collection of air is seen in the thenar space along the dorsal aspect. Early abscess formation should be ruled out. There is also evidence of a 3.9 cm x 4.9 cm hypodensity with possible septation along the volar aspect of the thenar space. This may represent abscess collection. CT/Extremity Upper without Contra IMPRESSION: Diffuse soft tissue cellulitis in the region of the thenar space with evidence of air bubbles along the dorsal aspect as well as possible abscess collection along the volar aspect of the thenar space. No radiopaque foreign body is seen. Electronically Signed: Nicolás Vinson, at 12:40 EDT , Service support ,
--- NOTE | 2019-02-02 10:00 | RAD_ITS ---
STUDY: X-RAY - RIGHT KNEE REASON FOR EXAM: Male, 53 years old. Right knee pain and swelling TECHNIQUE: 4 view(s) of the knee. COMPARISON: None. FINDINGS: Normal visualized distal femur. Normal visualized proximal tibia and fibula. Normal proximal tibiofibular articulation. Enthesopathic change at the quadriceps tendon insertion and at the patellar tendon origin. Normal medial femorotibial compartment. Normal lateral femorotibial compartment. Mild degenerative change of the patellofemoral compartment. Small knee joint effusion. Soft tissue swelling surrounding the knee. RAD/Knee 4 or More Views IMPRESSION: 1. Small knee joint effusion 2. Mild patellofemoral compartment degenerative change. Electronically Signed: Rodolfo Veliz MD at 3:05 EDT Tel , Service support ,
--- NOTE | 2019-02-02 10:02 | CPS ---
Pt unable to cough up sputum on own. Sputum induction started with 3ml of 3% Sodium Chloride. Pt still is unable to cough up sputum sample at this time. Pt remains with strong, dry, non-productive cough. Next dose to be given at 5:45 PM. Nursing aware.
--- NOTE | 2019-02-02 10:05 | PCM.HP.ID ---
Problem List (1) MSSA bacteremia Status: Acute Reason for Consult: bacteremia Consulted by: Dr. Kerr History of Present Illness: The patient is a 53 year old M with chronic back pain, DM, htn, hep C, and pancreatitis who presented to ED yesterday with several days of L hand swelling, pain, redness. Reports falling at home about a week ago, came to ED at that time and sent home. No drainage from his hand. Pain is severe, constant. No fever or chills. Chronic lower back pain, surgery had been planned, pain has been slowly worsening. C/o new R knee pain, swelling. Pain worse with movement, ROM limited due to pain. Denies any prior h/o abscess or MRSA infection. Denies any cough or hemoptysis. Has lost 180lbs in past 18 years. Last admit in 10/2018, has lost 6lbs since then. No drenching night sweats, but sometimes gets sweaty with a lot of blankets on. No travel outside the country. Reports neg PPD in the past. No known TB (+) contacts. Admitted here, bcx turned (+), imaging showed new small cavitary lesions. Started on vanc/zosyn. Pulm consulted and TB rule out started. Full ROS performed and neg except as noted above. - Medical History Past Medical History (Chronic Problems): Chronic Problems (Last Reviewed 02/01/19 @ 08:28 by Nan Saucedo DO) HLD (hyperlipidemia) (Chronic) Hepatitis C antibody positive in blood (Chronic) Dysphagia (Chronic) Malnutrition (Chronic) Anemia (Chronic) Lumbar canal stenosis (Chronic) Lumbar foraminal stenosis (Chronic) Unintentional weight loss (Chronic) Elevated liver enzymes (Chronic) Type 2 diabetes mellitus (Chronic) Chronic back pain (Chronic) Hypertension (Chronic) Ulcer of left great toe due to diabetes mellitus (Chronic) Diabetes mellitus type 2 (Chronic) uncontrolled Allergies/Adverse Reactions: Allergies morphine Allergy (Verified 02/01/19 02:39) headaches pt states gets very bad headaches from morphine fentanyl Adverse Reaction (Verified 02/01/19 02:39) Pt didn't like how it made him feel PT STATES HE DOES NOT LIKE HOW IT MAKES HIM FEEL. ketorolac [From Toradol] Adverse Reaction (Verified 02/01/19 08:01) real sluggish Home Medications: Ambulatory Orders Medication Instructions Recorded insulin glargine 100 30 unit SC DAILY ml 08/18/18 unit-lixisenatide 33 mcg/mL subcutaneous pen lisinopril 10 mg tablet 10 mg PO DAILY #90 tab 10/04/18 Atorvastatin Calcium 40 mg PO DAILY 11/14/18 Insulin Lispro [Humalog Kwikpen] 15 unit SC TIDCM 11/14/18 - Social History SMOKING STATUS:: Former smoker Vital Signs Temp Pulse Resp BP Pulse Ox 100.2 F H 83 18 183/85 H 100 02/02/19 09:33 02/02/19 09:33 02/02/19 09:33 02/02/19 09:33 02/02/19 09:33 Oxygen Delivery Method Room Air Weight: 60.6 kg Body Mass Index (BMI) 17.2 Finger Stick Blood Glucose 406 Microbiology Past 72 Hours 02/01/19 02:30 Bacteria Detection (PCR) - Final Blood Culture (Wb) - Anticubital Right Staphylococcus aureus Blood Culture - Preliminary Staphylococcus aureus 02/01/19 03:50 Blood Culture - Preliminary Blood Culture (Wb) - Anticubital Left 02/01/19 17:08 Stool Occult Blood (LEONIE) - Final Stool Occult Blood Positive Laboratory Tests Past 24 Hrs 02/01/19 02/01/19 02/01/19 11:28 11:28 16:32 WBC RBC Hgb Hct MCV MCH MCHC RDW RDW Differential Plt Count MPV Immature Gran % (Auto) Neut % (Auto) Lymph % (Auto) Ashe % (Auto) Eos % (Auto) Baso % (Auto) Absolute Neuts (auto) Absolute Lymphs (auto) Total Counted Diff Path Review Sodium 137 Potassium 3.6 Chloride 103 Carbon Dioxide 24.0 Anion Gap 10 BUN 14 Creatinine 0.81 Estim Creat Clear Calc 91.74 Est GFR (MDRD) Af Amer 129 Est GFR (MDRD) Non-Af 107 BUN/Creatinine Ratio 17.4 Glucose 69 L Lactic Acid 3.3 H Calcium 8.7 Phosphorus Magnesium Total Protein (PEP) Pending Albumin (PEP) Pending Globulin (PEP) Pending Albumin/Globulin (PEP) Pending Bnzke-0-Emryzmvfs Pending Byoqy-2-Ouegdkjiy Pending Beta Globulins Pending Gamma Globulins Pending M-Haris Pending Triglycerides Cholesterol LDL Cholesterol VLDL Cholesterol HDL Cholesterol Urine Total Protein Urine Albumin U Irkki-4-Rfgmsdzt U Syxrn-7-Sbncycgl U Beta Globulin U Gamma Globulin U PEP M-Haris Hepatitis A IgM Ab Hepatitis A Ab Total Hep Bs Antigen Hep B Core Total Ab Hep B Core IgM Ab HIV 1&2 Antibody 02/01/19 02/02/19 02/02/19 16:36 05:00 05:00 WBC 24.6 H RBC 2.95 L Hgb 9.5 L Hct 26.6 L MCV 90.2 MCH 32.2 H MCHC 35.7 RDW 11.6 RDW Differential 37.4 Plt Count 317 MPV 9.8 Immature Gran % (Auto) 1.000 H Neut % (Auto) 88.0 H Lymph % (Auto) 4.3 L Ashe % (Auto) 6.6 Eos % (Auto) 0.1 Baso % (Auto) 0.0 Absolute Neuts (auto) 21.6 H Absolute Lymphs (auto) 1.05 Total Counted Not Reportable Diff Path Review May foll Sodium 137 Potassium 4.1 Chloride 106 Carbon Dioxide 25.0 Anion Gap 6 BUN 15 Creatinine 0.66 L Estim Creat Clear Calc 112.59 Est GFR (MDRD) Af Amer 161 Est GFR (MDRD) Non-Af 133 BUN/Creatinine Ratio 22.6 H Glucose 239 H Lactic Acid Calcium 7.7 L Phosphorus 2.5 Magnesium 2.4 Total Protein (PEP) Albumin (PEP) Globulin (PEP) Albumin/Globulin (PEP) Bxgjb-6-Idtdtrjkq Juwhz-7-Dbdbuatal Beta Globulins Gamma Globulins M-Haris Triglycerides 109 Cholesterol 62 LDL Cholesterol 26 VLDL Cholesterol 22 HDL Cholesterol 14 L Urine Total Protein Pending Urine Albumin Pending U Xvvld-3-Ajhgfmri Pending U Kypge-4-Chhznexd Pending U Beta Globulin Pending U Gamma Globulin Pending U PEP M-Haris Pending Hepatitis A IgM Ab Hepatitis A Ab Total Hep Bs Antigen Hep B Core Total Ab Hep B Core IgM Ab HIV 1&2 Antibody 02/02/19 02/02/19 08:48 08:48 WBC RBC Hgb Hct MCV MCH MCHC RDW RDW Differential Plt Count MPV Immature Gran % (Auto) Neut % (Auto) Lymph % (Auto) Ashe % (Auto) Eos % (Auto) Baso % (Auto) Absolute Neuts (auto) Absolute Lymphs (auto) Total Counted Diff Path Review Sodium Potassium Chloride Carbon Dioxide Anion Gap BUN Creatinine Estim Creat Clear Calc Est GFR (MDRD) Af Amer Est GFR (MDRD) Non-Af BUN/Creatinine Ratio Glucose Lactic Acid Calcium Phosphorus Magnesium Total Protein (PEP) Albumin (PEP) Globulin (PEP) Albumin/Globulin (PEP) Gqlzt-7-Pfpqpsfsk Vcouu-6-Lnkvstlaq Beta Globulins Gamma Globulins M-Haris Triglycerides Cholesterol LDL Cholesterol VLDL Cholesterol HDL Cholesterol Urine Total Protein Urine Albumin U Bmkib-3-Fvsqbzxq U Wgemk-8-Swwjypba U Beta Globulin U Gamma Globulin U PEP M-Haris Hepatitis A IgM Ab Pending Hepatitis A Ab Total Pending Hep Bs Antigen Pending Hep B Core Total Ab Pending Hep B Core IgM Ab Pending HIV 1&2 Antibody Pending - Other Studies Radiology: [] reviewed CT images, small scattered lung lesions Other Studies: [] Route of nutrition/ use of supplements: [] Nutritional Intake: [] IV Site: [] Canas Catheter: [] - Physical Exam General: Alert, Oriented x3, Cooperative, No apparent distress HEENT: Atraumatic, PERRLA, EOMI Neck: Supple, No Nodes Lungs: Clear to auscultation, Normal air movement Cardiovascular: Murmur, Tachycardic Abdomen: Soft, Non Tender, Non-Distended Extremities: No edema, - - L hand with diffuse swelling, redness, severe pain with movement, small new pustule around dorsal 1st MCP Skin: - - no janeway/osler/splinter hemorrhages. R 1st toe with missing toenail, dry ulceration, no redness or swelling. IV Site: Peripheral, without redness Musculoskeletal: - - R knee with swelling, pain, warmth, limited ROM. Moderate pain over L=spine with palpation. Neurological: Cranial nerves II-XII grossly intact - Assessment/Plan Antibiotics: [] Assessment/Plan: [] Active and Suspected Problems (Last Reviewed 02/01/19 @ 08:28 by Nan Saucedo DO) Sepsis (Acute) Cellulitis (Acute) Dehydration (Acute) Hypokalemia (Acute) severe sepsis (leukocytosis, tachycardia, lactic acidosis) with MSSA bacteremia from L hand infection with likely deep abscess. Concern for secondary spread to R knee septic arthritis and R sided endocarditis given suspected pulm emboli. - repeat bcx x1 today - TTE - consult surgery for urgent eval of L hand - consult ortho for R knee suspected septic arthritis - has chronic lower back pain and spine tenderness. He reports this has worsened, will need repeat MRI. Last study was 10/2018. - will narrow abx from vanc/zosyn to cefazolin. Cavitary lung lesion - Low suspicion for TB. No hemoptysis, some weight loss. Reports neg PPD in the past. - given his history, imaging, (+) mSSA bacteremia, and that these lung changes are new compared to CT on 01/25, ok to d/c neg airflow isolation chronic hep C - neg for HIV and hep B in 10/2018 - HCV pcr was 8 million in 05/2018. Will check repeat pcr. - given bacteremia and possible R sided endocarditis, will check tox screen. Will follow, thank you, d/w Dr. Saucedo and Dr. Kerr.
[2019-02-02 10:06] LABS: Bedside Glucose 266 mg/dL (70-110)
--- NOTE | 2019-02-02 10:11 | CON.PCM_ITS ---
Problem List (1) MSSA bacteremia Status: Acute Reason for Consult: bacteremia Consulted by: Dr. Kerr History of Present Illness: The patient is a 53 year old M with chronic back pain, DM, htn, hep C, and pancreatitis who presented to ED yesterday with several days of L hand swelling, pain, redness. Reports falling at home about a week ago, came to ED at that time and sent home. No drainage from his hand. Pain is severe, constant. No fever or chills. Chronic lower back pain, surgery had been planned, pain has been slowly worsening. C/o new R knee pain, swelling. Pain worse with movement, ROM limited due to pain. Denies any prior h/o abscess or MRSA infection. Denies any cough or hemoptysis. Has lost 180lbs in past 18 years. Last admit in 10/2018, has lost 6lbs since then. No drenching night sweats, but sometimes gets sweaty with a lot of blankets on. No travel outside the country. Reports neg PPD in the past. No known TB (+) contacts. Admitted here, bcx turned (+), imaging showed new small cavitary lesions. Sta rted on vanc/zosyn. Pulm consulted and TB rule out started. Full ROS performed and neg except as noted above. - Medical History Past Medical History (Chronic Problems): Chronic Problems (Last Reviewed 02/01/19 @ 08:28 by Nan Saucedo DO) HLD (hyperlipidemia) (Chronic) Hepatitis C antibody positive in blood (Chronic) Dysphagia (Chronic) Malnutrition (Chronic) Anemia (Chronic) Lumbar canal stenosis (Chronic) Lumbar foraminal stenosis (Chronic) Unintentional weight loss (Chronic) Elevated liver enzymes (Chronic) Type 2 diabetes mellitus (Chronic) Chronic back pain (Chronic) Hypertension (Chronic) Ulcer of left great toe due to diabetes mellitus (Chronic) Diabetes mellitus type 2 (Chronic) uncontrolled Allergies/Adverse Reactions: Allergies morphine Allergy (Verified 02/01/19 02:39) headaches pt states gets very bad headaches from morphine fentanyl Adverse Reaction (Verified 02/01/19 02:39) Pt didn't like how it made him feel PT STATES HE DOES NOT LIKE HOW IT MAKES HIM FEEL. ketorolac [From Toradol] Adverse Reaction (Verified 02/01/19 08:01) real sluggish Home Medications: Ambulatory Orders Medication Instructions Recorded insulin glargine 100 30 unit SC DAILY ml 08/18/18 unit-lixisenatide 33 mcg/mL subcutaneous pen lisinopril 10 mg tablet 10 mg PO DAILY #90 tab 10/04/18 Atorvastatin Calcium 40 mg PO DAILY 11/14/18 Insulin Lispro [Humalog Kwikpen] 15 unit SC TIDCM 11/14/18 - Social History SMOKING STATUS:: Former smoker Vital Signs Temp Pulse Resp BP Pulse Ox 100.2 F H 83 18 183/85 H 100 02/02/19 09:33 02/02/19 09:33 02/02/19 09:33 02/02/19 09:33 02/02/19 09:33 Oxygen Delivery Method Room Air Weight: 60.6 kg Body Mass Index (BMI) 17.2 Finger Stick Blood Glucose 406 Microbiology Past 72 Hours 02/01/19 02:30 Bacteria Detection (PCR) - Final Blood Culture (Wb) - Anticubital Right Staphylococcus aureus Blood Culture - Preliminary Staphylococcus aureus 02/01/19 03:50 Blood Culture - Preliminary Blood Culture (Wb) - Anticubital Left 02/01/19 17:08 Stool Occult Blood (LEONIE) - Final Stool Occult Blood Positive Laboratory Tests Past 24 Hrs 02/01/19 02/01/19 02/01/19 11:28 11:28 16:32 WBC RBC Hgb Hct MCV MCH MCHC RDW RDW Differential Plt Count MPV Immature Gran % (Auto) Neut % (Auto) Lymph % (Auto) Banner % (Auto) Eos % (Auto) Baso % (Auto) Absolute Neuts (auto) Absolute Lymphs (auto) Total Counted Diff Path Review Sodium 137 Potassium 3.6 Chloride 103 Carbon Dioxide 24.0 Anion Gap 10 BUN 14 Creatinine 0.81 Estim Creat Clear Calc 91.74 Est GFR (MDRD) Af Amer 129 Est GFR (MDRD) Non-Af 107 BUN/Creatinine Ratio 17.4 Glucose 69 L Lactic Acid 3.3 H Calcium 8.7 Phosphorus Magnesium Total Protein (PEP) Pending Albumin (PEP) Pending Globulin (PEP) Pending Albumin/Globulin (PEP) Pending Zzwcg-1-Tpsnnuwfg Pending Ihodc-3-Bexukztkn Pending Beta Globulins Pending Gamma Globulins Pending M-Haris Pending Triglycerides Cholesterol LDL Cholesterol VLDL Cholesterol HDL Cholesterol Urine Total Protein Urine Albumin U Ihehv-4-Rrcitmhj U Kyzzk-3-Cogeflwt U Beta Globulin U Gamma Globulin U PEP M-Haris Hepatitis A IgM Ab Hepatitis A Ab Total Hep Bs Antigen Hep B Core Total Ab Hep B Core IgM Ab HIV 1&2 Antibody 02/01/19 02/02/19 02/02/19 16:36 05:00 05:00 WBC 24.6 H RBC 2.95 L Hgb 9.5 L Hct 26.6 L MCV 90.2 MCH 32.2 H MCHC 35.7 RDW 11.6 RDW Differential 37.4 Plt Count 317 MPV 9.8 Immature Gran % (Auto) 1.000 H Neut % (Auto) 88.0 H Lymph % (Auto) 4.3 L Banner % (Auto) 6.6 Eos % (Auto) 0.1 Baso % (Auto) 0.0 Absolute Neuts (auto) 21.6 H Absolute Lymphs (auto) 1.05 Total Counted Not Reportable Diff Path Review May foll Sodium 137 Potassium 4.1 Chloride 106 Carbon Dioxide 25.0 Anion Gap 6 BUN 15 Creatinine 0.66 L Estim Creat Clear Calc 112.59 Est GFR (MDRD) Af Amer 161 Est GFR (MDRD) Non-Af 133 BUN/Creatinine Ratio 22.6 H Glucose 239 H Lactic Acid Calcium 7.7 L Phosphorus 2.5 Magnesium 2.4 Total Protein (PEP) Albumin (PEP) Globulin (PEP) Albumin/Globulin (PEP) Gekta-2-Muqleptmq Zcmse-0-Zyopylnja Beta Globulins Gamma Globulins M-Haris Triglycerides 109 Cholesterol 62 LDL Cholesterol 26 VLDL Cholesterol 22 HDL Cholesterol 14 L Urine Total Protein Pending Urine Albumin Pending U Dnigy-7-Sfnrasgh Pending U Ojrpy-1-Aoqoonej Pending U Beta Globulin Pending U Gamma Globulin Pending U PEP M-Haris Pending Hepatitis A IgM Ab Hepatitis A Ab Total Hep Bs Antigen Hep B Core Total Ab Hep B Core IgM Ab HIV 1&2 Antibody 02/02/19 02/02/19 08:48 08:48 WBC RBC Hgb Hct MCV MCH MCHC RDW RDW Differential Plt Count MPV Immature Gran % (Auto) Neut % (Auto) Lymph % (Auto) Banner % (Auto) Eos % (Auto) Baso % (Auto) Absolute Neuts (auto) Absolute Lymphs (auto) Total Counted Diff Path Review Sodium Potassium Chloride Carbon Dioxide Anion Gap BUN Creatinine Estim Creat Clear Calc Est GFR (MDRD) Af Amer Est GFR (MDRD) Non-Af BUN/Creatinine Ratio Glucose Lactic Acid Calcium Phosphorus Magnesium Total Protein (PEP) Albumin (PEP) Globulin (PEP) Albumin/Globulin (PEP) Tbwku-3-Gusezpbwn Tlyzd-3-Kmazvctkj Beta Globulins Gamma Globulins M-Haris Triglycerides Cholesterol LDL Cholesterol VLDL Cholesterol HDL Cholesterol Urine Total Protein Urine Albumin U Gwjns-8-Sqzikjpu U Uzpgh-2-Rzkxzlrr U Beta Globulin U Gamma Globulin U PEP M-Haris Hepatitis A IgM Ab Pending Hepatitis A Ab Total Pending Hep Bs Antigen Pending Hep B Core Total Ab Pending Hep B Core IgM Ab Pending HIV 1&2 Antibody Pending - Other Studies Radiology: [] reviewed CT images, small scattered lung lesions Other Studies: [] Route of nutrition/ use of supplements: [] Nutritional Intake: [] IV Site: [] Canas Catheter: [] - Physical Exam General: Alert, Oriented x3, Cooperative, No apparent distress HEENT: Atraumatic, PERRLA, EOMI Neck: Supple, No Nodes Lungs: Clear to auscultation, Normal air movement Cardiovascular: Murmur, Tachycardic Abdomen: Soft, Non Tender, Non-Distended Extremities: No edema, - - L hand with diffuse swelling, redness, severe pain with movement, small new pustule around dorsal 1st MCP Skin: - - no janeway/osler/splinter hemorrhages. R 1st toe with missing toena il, dry ulceration, no redness or swelling. IV Site: Peripheral, without redness Musculoskeletal: - - R knee with swelling, pain, warmth, limited ROM. Moderate pain over L=spine with palpation. Neurological: Cranial nerves II-XII grossly intact - Assessment/Plan Antibiotics: [] Assessment/Plan: [] Active and Suspected Problems (Last Reviewed 02/01/19 @ 08:28 by Nan Saucedo DO) Sepsis (Acute) Cellulitis (Acute) Dehydration (Acute) Hypokalemia (Acute) severe sepsis (leukocytosis, tachycardia, lactic acidosis) with MSSA bacteremia from L hand infection with likely deep abscess. Concern for secondary spread to R knee septic arthritis and R sided endocarditis given suspected pulm emboli. - repeat bcx x1 today - TTE - consult surgery for urgent eval of L hand - consult ortho for R knee suspected septic arthritis - has chronic lower back pain and spine tenderness. He reports this has worsened, will need repeat MRI. Last study was 10/2018. - will narrow abx from vanc/zosyn to cefazolin. Cavitary lung lesion - Low suspicion for TB. No hemoptysis, some weight loss. Reports neg PPD in the past. - given his history, imaging, (+) mSSA bacteremia, and that these lung changes are new compared to CT on 01/25, ok to d/c neg airflow isolation chronic hep C - neg for HIV and hep B in 10/2018 - HCV pcr was 8 million in 05/2018. Will check repeat pcr. - given bacteremia and possible R sided endocarditis, will check tox screen. Will follow, thank you, d/w Dr. Saucedo and Dr. Kerr.
[2019-02-02] MEDS: Magnesium Oxide 400 MG Tablet PO (10:25)
[2019-02-02] MEDS: Lisinopril 10 MG Tablet PO (10:25)
[2019-02-02] MEDS: Enoxaparin 40 MG/0.4 ML Syringe SC (10:26)
[2019-02-02 10:41] LABS: HIV - WCH Non-Reactive (Nonreactive)
--- NOTE | 2019-02-02 11:04 | NURSING ---
iv accessRn notified of midline order, awaiting on return call w/time
--- NOTE | 2019-02-02 11:16 | PCM.CONS.GEN ---
Problem List (1) Knee effusion, right Status: Acute (2) Knee pain, right Status: Acute Reason for Consult Date of Consultation: 02/02/19 Reason for Consultation: Right knee pain and effusion History of Present Illness: The patient is a 53 year old M who was admitted to the hospital on February 01, 2019. Patient reported to the emergency room for lower abdominal pain which is been going on for several weeks. Patient also fell approximately 1-2 weeks ago when he caught himself with the left hand. Since then he has had swelling and pain with redness in the left hand. Dr. Rankin has been consulted for the left hand. We are here consulted for acute right knee pain and swelling. Patient also has chronic low back pain with a history of type 2 diabetes mellitus with diabetic neuropathy, hypertension, history of hepatitis C. Patient did have blood cultures which have been positive for Staphylococcus aureus. Factious disease has been consulted and is currently on vancomycin and Zosyn. Dr. Fletcher has been consulted and is currently planned for an upper and lower endoscopy tomorrow. Patient is beginning bowel prep and is on clear liquids. Patient denies trauma to the right knee. He states the knee pain has been present since he has been in the hospital. Patient has a history of previous left knee surgery many years ago in which he states he broke his patella. Patient does have chronic ulcerations on the left foot. Patient states he has increased pain with any movement of the right knee. Does complain of numbness and tingling in the bilateral lower extremities. Patient has been admitted with sepsis secondary to cellulitis of the left hand. He has been requiring IV Dilaudid for pain management. Patient denies any left knee pain. 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 ketorolac [From Toradol] Adverse Reaction (Verified 02/01/19 08:01) real sluggish Home Medications: Ambulatory Orders Medication Instructions Recorded insulin glargine 100 30 unit SC DAILY ml 08/18/18 unit-lixisenatide 33 mcg/mL subcutaneous pen lisinopril 10 mg tablet 10 mg PO DAILY #90 tab 10/04/18 Atorvastatin Calcium 40 mg PO DAILY 11/14/18 Insulin Lispro [Humalog Kwikpen] 15 unit SC TIDCM 11/14/18 Surgical History: Surgical History (Last Reviewed 02/01/19 @ 08:28 by Nan Saucedo DO) History of appendectomy Z90.49 S/P laparoscopic cholecystectomy Z90.49 Surgical History: appendectomy, cholecystectomy, - Psychiatric History: No pertinent psych hx Lives: Spouse/ Significant Other Smoking Status: Former smoker Tobacco Use: Non-smoker Alcohol: None Drugs: None - *Family History Maternal Family History: Family History (Last Reviewed 02/01/19 @ 08:28 by Nan Saucedo DO) Father Diabetes Mother Diabetes History Items: Diabetes Paternal Family History: Family History (Last Reviewed 02/01/19 @ 08:28 by Nan Saucedo DO) Father Diabetes Mother Diabetes History Items: Heart Disease - CAD s/p CABG history. Patient notes that his paternal grandmother had diabetes. Patient Problems: Active and Suspected Problems (Last Reviewed 02/01/19 @ 08:28 by Nan Saucedo DO) Sepsis (Acute) Cellulitis (Acute) Dehydration (Acute) Hypokalemia (Acute) MSSA bacteremia (Acute) Knee effusion, right (Acute) Knee pain, right (Acute) Objective: On exam this is a pleasant 53-year-old male who is in pain with regards to his hand and knee. Right knee is without erythema but is warm to touch. There is large effusion right knee. Patient has increased pain with active range of motion and passive range of motion of the right knee. Patient has near full extension right knee to approximately 70 degrees flexion with increased pain. Left knee reveals previous incision from surgery and what patient tells me he had a broken kneecap. There is no effusion or erythema to the left knee. No pain on range of motion. Patient is able to plantarflex and dorsiflex bilateral lower extremities. Sensation intact to saphenous, sural, superficial/deep peroneal, and tibial distribution but is diminished on the right when compared to the left. Left heel does show chronic ulceration with fissuring with callus formation. No active drainage or erythema. There is no significant ulceration on the right heel. Negative Homans bilaterally. Diagnostic studies: X-rays have been ordered for his right knee. - Physical Exam General: Alert, Oriented x3, Cooperative Vital Signs Temp Pulse Resp BP Pulse Ox 100.2 F H 83 18 183/85 H 100 02/02/19 09:33 02/02/19 09:33 02/02/19 09:33 02/02/19 09:33 02/02/19 09:33 Oxygen Delivery Method Room Air Weight: 60.6 kg Body Mass Index (BMI) 17.2 Finger Stick Blood Glucose 406 Intake and Output for Last 24 Hours 01/31/19 02/01/19 02/02/19 23:59 23:59 23:59 Intake Total 2175 / 2175 2189 / 2189 Output Total 400 / 400 Balance 1775 / 1775 2189 / 2189 Microbiology Past 72 Hours 02/01/19 03:50 Blood Culture - Final Blood Culture (Wb) - Anticubital Left Staphylococcus aureus 02/01/19 02:30 Bacteria Detection (PCR) - Final Blood Culture (Wb) - Anticubital Right Staphylococcus aureus Blood Culture - Preliminary Staphylococcus aureus 02/01/19 17:08 Stool Occult Blood (LEONIE) - Final Stool Occult Blood Positive Laboratory Tests Past 24 Hrs 02/01/19 02/01/19 02/01/19 11:28 11:28 16:32 WBC RBC Hgb Hct MCV MCH MCHC RDW RDW Differential Plt Count MPV Immature Gran % (Auto) Neut % (Auto) Lymph % (Auto) [place] % (Auto) Eos % (Auto) Baso % (Auto) Absolute Neuts (auto) Absolute Lymphs (auto) Total Counted Diff Path Review Sodium 137 Potassium 3.6 Chloride 103 Carbon Dioxide 24.0 Anion Gap 10 BUN 14 Creatinine 0.81 Estim Creat Clear Calc 91.74 Est GFR (MDRD) Af Amer 129 Est GFR (MDRD) Non-Af 107 BUN/Creatinine Ratio 17.4 Glucose 69 L Lactic Acid 3.3 H Calcium 8.7 Phosphorus Magnesium Total Protein (PEP) Pending Albumin (PEP) Pending Globulin (PEP) Pending Albumin/Globulin (PEP) Pending Uaqzm-2-Wuyhpejkb Pending Nhuvz-2-Hmvjntrov Pending Beta Globulins Pending Gamma Globulins Pending M-Haris Pending Triglycerides Cholesterol LDL Cholesterol VLDL Cholesterol HDL Cholesterol Urine Total Protein Urine Albumin U Teixd-3-Zrojoxtn U Wnebh-0-Dwwjojrb U Beta Globulin U Gamma Globulin U PEP M-Haris Hepatitis A IgM Ab Hepatitis A Ab Total Hep Bs Antigen Hep B Core Total Ab Hep B Core IgM Ab HIV 1&2 Antibody 02/01/19 02/02/19 02/02/19 16:36 05:00 05:00 WBC 24.6 H RBC 2.95 L Hgb 9.5 L Hct 26.6 L MCV 90.2 MCH 32.2 H MCHC 35.7 RDW 11.6 RDW Differential 37.4 Plt Count 317 MPV 9.8 Immature Gran % (Auto) 1.000 H Neut % (Auto) 88.0 H Lymph % (Auto) 4.3 L [place] % (Auto) 6.6 Eos % (Auto) 0.1 Baso % (Auto) 0.0 Absolute Neuts (auto) 21.6 H Absolute Lymphs (auto) 1.05 Total Counted Not Reportable Diff Path Review May foll Sodium 137 Potassium 4.1 Chloride 106 Carbon Dioxide 25.0 Anion Gap 6 BUN 15 Creatinine 0.66 L Estim Creat Clear Calc 112.59 Est GFR (MDRD) Af Amer 161 Est GFR (MDRD) Non-Af 133 BUN/Creatinine Ratio 22.6 H Glucose 239 H Lactic Acid Calcium 7.7 L Phosphorus 2.5 Magnesium 2.4 Total Protein (PEP) Albumin (PEP) Globulin (PEP) Albumin/Globulin (PEP) Ogoza-6-Lujzutmtn Xjzww-9-Ahtnojgzj Beta Globulins Gamma Globulins M-Haris Triglycerides 109 Cholesterol 62 LDL Cholesterol 26 VLDL Cholesterol 22 HDL Cholesterol 14 L Urine Total Protein Pending Urine Albumin Pending U Yreyh-6-Xgnhalty Pending U Pjvws-7-Dzuceiwh Pending U Beta Globulin Pending U Gamma Globulin Pending U PEP M-Haris Pending Hepatitis A IgM Ab Hepatitis A Ab Total Hep Bs Antigen Hep B Core Total Ab Hep B Core IgM Ab HIV 1&2 Antibody 02/02/19 02/02/19 08:48 08:48 WBC RBC Hgb Hct MCV MCH MCHC RDW RDW Differential Plt Count MPV Immature Gran % (Auto) Neut % (Auto) Lymph % (Auto) [place] % (Auto) Eos % (Auto) Baso % (Auto) Absolute Neuts (auto) Absolute Lymphs (auto) Total Counted Diff Path Review Sodium Potassium Chloride Carbon Dioxide Anion Gap BUN Creatinine Estim Creat Clear Calc Est GFR (MDRD) Af Amer Est GFR (MDRD) Non-Af BUN/Creatinine Ratio Glucose Lactic Acid Calcium Phosphorus Magnesium Total Protein (PEP) Albumin (PEP) Globulin (PEP) Albumin/Globulin (PEP) Qspme-6-Jjdpnlhas Xzxzc-2-Tcltbyrha Beta Globulins Gamma Globulins M-Haris Triglycerides Cholesterol LDL Cholesterol VLDL Cholesterol HDL Cholesterol Urine Total Protein Urine Albumin U Doiru-0-Vruuaqag U Cbcoz-8-Pbwbiycb U Beta Globulin U Gamma Globulin U PEP M-Haris Hepatitis A IgM Ab Pending Hepatitis A Ab Total Pending Hep Bs Antigen Pending Hep B Core Total Ab Pending Hep B Core IgM Ab Pending HIV 1&2 Antibody Non-Reactive POC Glucose 02/02/19 02/01/19 02/01/19 09:29 22:20 16:34 POC Glucose 266 H 118 H 103 02/01/19 11:31 POC Glucose 265 H Assessment/Plan All Active Problems (Last Reviewed 02/01/19 @ 08:28 by Nan Saucedo DO) Sepsis (Acute) Cellulitis (Acute) Dehydration (Acute) Hypokalemia (Acute) MSSA bacteremia (Acute) Knee effusion, right (Acute) Knee pain, right (Acute) Acute pancreatitis (Resolved) Gastroenteritis (Resolved) Impression: 1. Right knee pain and effusion 2. Sepsis secondary to cellulitis of left hand: Dr. Rankin has been consulted for the hand 3. Type 2 diabetes mellitus Plan: Case was discussed with Dr. Hi Marroquin. At this time we recommend an aspiration of the right knee to evaluate for underlying infection versus inflammatory response. Patient has had positive blood cultures for Staphylococcus aureus. Patient gave verbal consent to aspiration of the right knee. Patient tolerated the procedure very well. Upon aspiration 30 cc of straw-colored synovial fluid with slight haziness was aspirated. Sterile Band-Aid was placed over the injection site. Patient can use ice as needed for swelling and pain control. This will be sent for cultures, sensitivity, Gram stain, crystals, and cell count. Upon evaluation of results there may be need for surgical intervention including washout. This was discussed with the patient and nursing staff. Patient will remain n.p.o. Continue with pain medications per primary medicine. Further treatment will be dependent upon outcome of aspiration and results. Continue with recommendations per infectious disease. Appreciate consult and please contact orthopedics with any concerns or questions.
--- NOTE | 2019-02-02 11:22 | CON.PCM_ITS ---
Problem List (1) Knee effusion, right Status: Acute (2) Knee pain, right Status: Acute Reason for Consult Date of Consultation: 02/02/19 Reason for Consultation: Right knee pain and effusion History of Present Illness: The patient is a 53 year old M who was admitted to the hospital on February 01, 2019. Patient reported to the emergency room for lower abdominal pain which is been going on for several weeks. Patient also fell approximately 1-2 weeks ago when he caught himself with the left hand. Since then he has had swelling and pain with redness in the left hand. Dr. Rankin has been consulted for the left hand. We are here consulted for acute right knee pain and swelling. Patient also has chronic low back pain with a history of type 2 diabetes mellitus with diabetic neuropathy, hypertension, history of hepatitis C. Patient did have blood cultures which have been positive for Staphylococcus aureus. Factious disease has been consulted and is currently on vancomycin and Zosyn. Dr. Fletcher has been consulted and is currently planned for an upper and lower endoscopy tomorrow. Patient is beginning bowel prep and is on clear liquids. Patient denies trauma to the right knee. He states the knee pain has been present since he has been in the hospital. Patient has a history of previous left knee surgery many years ago in which he states he broke his patella. Patient does have chronic ulcerations on the left foot. Patient states he has increased pain with any movement of the right knee. Does complain of numbness and tingling in the bilateral lower extremities. Patient has been admitted with sepsis secondary to cellulitis of the left hand. He has been requiring IV Dilaudid for pain management. Patient denies any left knee pain. 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 ketorolac [From Toradol] Adverse Reaction (Verified 02/01/19 08:01) real sluggish Home Medications: Ambulatory Orders Medication Instructions Recorded insulin glargine 100 30 unit SC DAILY ml 08/18/18 unit-lixisenatide 33 mcg/mL subcutaneous pen lisinopril 10 mg tablet 10 mg PO DAILY #90 tab 10/04/18 Atorvastatin Calcium 40 mg PO DAILY 11/14/18 Insulin Lispro [Humalog Kwikpen] 15 unit SC TIDCM 11/14/18 Surgical History: Surgical History (Last Reviewed 02/01/19 @ 08:28 by Nan Saucedo DO) History of appendectomy Z90.49 S/P laparoscopic cholecystectomy Z90.49 Surgical History: appendectomy, cholecystectomy, - Psychiatric History: No pertinent psych hx Lives: Spouse/ Significant Other Smoking Status: Former smoker Tobacco Use: Non-smoker Alcohol: None Drugs: None - *Family History Maternal Family History: Family History (Last Reviewed 02/01/19 @ 08:28 by Nan Saucedo DO) Father Diabetes Mother Diabetes History Items: Diabetes Paternal Family History: Family History (Last Reviewed 02/01/19 @ 08:28 by Nan Saucedo DO) Father Diabetes Mother Diabetes History Items: Heart Disease - CAD s/p CABG history. Patient notes that his paternal grandmother had diabetes. Patient Problems: Active and Suspected Problems (Last Reviewed 02/01/19 @ 08:28 by Nan Saucedo DO) Sepsis (Acute) Cellulitis (Acute) Dehydration (Acute) Hypokalemia (Acute) MSSA bacteremia (Acute) Knee effusion, right (Acute) Knee pain, right (Acute) Objective: On exam this is a pleasant 53-year-old male who is in pain with regards to his hand and knee. Right knee is without erythema but is warm to touch. There is large effusion right knee. Patient has increased pain with active range of motion and passive range of motion of the right knee. Patient has near full extension right knee to approximately 70 degrees flexion with increased pain. Left knee reveals previous incision from surgery and what patient tells me he had a broken kneecap. There is no effusion or erythema to the left knee. No pain on range of motion. Patient is able to plantarflex and dorsiflex bilateral lower extremities. Sensation intact to saphenous, sural, superficial/deep peroneal, and tibial distribution but is diminished on the right when compared to the left. Left heel does show chronic ulceration with fissuring with callus formation. No active drainage or erythema. There is no significant ulceration on the right heel. Negative Homans bilaterally. Diagnostic studies: X-rays have been ordered for his right knee. - Physical Exam General: Alert, Oriented x3, Cooperative Vital Signs Temp Pulse Resp BP Pulse Ox 100.2 F H 83 18 183/85 H 100 02/02/19 09:33 02/02/19 09:33 02/02/19 09:33 02/02/19 09:33 02/02/19 09:33 Oxygen Delivery Method Room Air Weight: 60.6 kg Body Mass Index (BMI) 17.2 Finger Stick Blood Glucose 406 Intake and Output for Last 24 Hours 01/31/19 02/01/19 02/02/19 23:59 23:59 23:59 Intake Total 2175 / 2175 2189 / 2189 Output Total 400 / 400 Balance 1775 / 1775 2189 / 2189 Microbiology Past 72 Hours 02/01/19 03:50 Blood Culture - Final Blood Culture (Wb) - Anticubital Left Staphylococcus aureus 02/01/19 02:30 Bacteria Detection (PCR) - Final Blood Culture (Wb) - Anticubital Right Staphylococcus aureus Blood Culture - Preliminary Staphylococcus aureus 02/01/19 17:08 Stool Occult Blood (LEONIE) - Final Stool Occult Blood Positive Laboratory Tests Past 24 Hrs 02/01/19 02/01/19 02/01/19 11:28 11:28 16:32 WBC RBC Hgb Hct MCV MCH MCHC RDW RDW Differential Plt Count MPV Immature Gran % (Auto) Neut % (Auto) Lymph % (Auto) [place] % (Auto) Eos % (Auto) Baso % (Auto) Absolute Neuts (auto) Absolute Lymphs (auto) Total Counted Diff Path Review Sodium 137 Potassium 3.6 Chloride 103 Carbon Dioxide 24.0 Anion Gap 10 BUN 14 Creatinine 0.81 Estim Creat Clear Calc 91.74 Est GFR (MDRD) Af Amer 129 Est GFR (MDRD) Non-Af 107 BUN/Creatinine Ratio 17.4 Glucose 69 L Lactic Acid 3.3 H Calcium 8.7 Phosphorus Magnesium Total Protein (PEP) Pending Albumin (PEP) Pending Globulin (PEP) Pending Albumin/Globulin (PEP) Pending Tesor-2-Hlgtklheb Pending Sggmu-0-Zkhoqfzjn Pending Beta Globulins Pending Gamma Globulins Pending M-Haris Pending Triglycerides Cholesterol LDL Cholesterol VLDL Cholesterol HDL Cholesterol Urine Total Protein Urine Albumin U Zwgzb-2-Sjskrdar U Ljzkv-0-Ytmhydmy U Beta Globulin U Gamma Globulin U PEP M-Haris Hepatitis A IgM Ab Hepatitis A Ab Total Hep Bs Antigen Hep B Core Total Ab Hep B Core IgM Ab HIV 1&2 Antibody 02/01/19 02/02/19 02/02/19 16:36 05:00 05:00 WBC 24.6 H RBC 2.95 L Hgb 9.5 L Hct 26.6 L MCV 90.2 MCH 32.2 H MCHC 35.7 RDW 11.6 RDW Differential 37.4 Plt Count 317 MPV 9.8 Immature Gran % (Auto) 1.000 H Neut % (Auto) 88.0 H Lymph % (Auto) 4.3 L [place] % (Auto) 6.6 Eos % (Auto) 0.1 Baso % (Auto) 0.0 Absolute Neuts (auto) 21.6 H Absolute Lymphs (auto) 1.05 Total Counted Not Reportable Diff Path Review May foll Sodium 137 Potassium 4.1 Chloride 106 Carbon Dioxide 25.0 Anion Gap 6 BUN 15 Creatinine 0.66 L Estim Creat Clear Calc 112.59 Est GFR (MDRD) Af Amer 161 Est GFR (MDRD) Non-Af 133 BUN/Creatinine Ratio 22.6 H Glucose 239 H Lactic Acid Calcium 7.7 L Phosphorus 2.5 Magnesium 2.4 Total Protein (PEP) Albumin (PEP) Globulin (PEP) Albumin/Globulin (PEP) Ubyrz-5-Bgnudcvlb Wyuel-2-Hfzmmiwkr Beta Globulins Gamma Globulins M-Haris Triglycerides 109 Cholesterol 62 LDL Cholesterol 26 VLDL Cholesterol 22 HDL Cholesterol 14 L Urine Total Protein Pending Urine Albumin Pending U Yspms-0-Tmgixwbc Pending U Stofc-2-Loqucbdo Pending U Beta Globulin Pending U Gamma Globulin Pending U PEP M-Haris Pending Hepatitis A IgM Ab Hepatitis A Ab Total Hep Bs Antigen Hep B Core Total Ab Hep B Core IgM Ab HIV 1&2 Antibody 02/02/19 02/02/19 08:48 08:48 WBC RBC Hgb Hct MCV MCH MCHC RDW RDW Differential Plt Count MPV Immature Gran % (Auto) Neut % (Auto) Lymph % (Auto) [place] % (Auto) Eos % (Auto) Baso % (Auto) Absolute Neuts (auto) Absolute Lymphs (auto) Total Counted Diff Path Review Sodium Potassium Chloride Carbon Dioxide Anion Gap BUN Creatinine Estim Creat Clear Calc Est GFR (MDRD) Af Amer Est GFR (MDRD) Non-Af BUN/Creatinine Ratio Glucose Lactic Acid Calcium Phosphorus Magnesium Total Protein (PEP) Albumin (PEP) Globulin (PEP) Albumin/Globulin (PEP) Otbkp-2-Ruxlryvpv Lhbjx-9-Caqjjksqh Beta Globulins Gamma Globulins M-Haris Triglycerides Cholesterol LDL Cholesterol VLDL Cholesterol HDL Cholesterol Urine Total Protein Urine Albumin U Etkih-6-Pdukvhlb U Hhnvh-2-Wckucmbd U Beta Globulin U Gamma Globulin U PEP M-Haris Hepatitis A IgM Ab Pending Hepatitis A Ab Total Pending Hep Bs Antigen Pending Hep B Core Total Ab Pending Hep B Core IgM Ab Pending HIV 1&2 Antibody Non-Reactive POC Glucose 02/02/19 02/01/19 02/01/19 09:29 22:20 16:34 POC Glucose 266 H 118 H 103 02/01/19 11:31 POC Glucose 265 H Assessment/Plan All Active Problems (Last Reviewed 02/01/19 @ 08:28 by Nan Saucedo DO) Sepsis (Acute) Cellulitis (Acute) Dehydration (Acute) Hypokalemia (Acute) MSSA bacteremia (Acute) Knee effusion, right (Acute) Knee pain, right (Acute) Acute pancreatitis (Resolved) Gastroenteritis (Resolved) Impression: 1. Right knee pain and effusion 2. Sepsis secondary to cellulitis of left hand: Dr. Rankin has been consulted for the hand 3. Type 2 diabetes mellitus Plan: Case was discussed with Dr. Hi Marroquin. At this time we recommend an aspira tion of the right knee to evaluate for underlying infection versus inflammatory response. Patient has had positive blood cultures for Staphylococcus aureus. Patient gave verbal consent to aspiration of the right knee. Patient tolerated the procedure very well. Upon aspiration 30 cc of straw-colored synovial fluid with slight haziness was aspirated. Sterile Band-Aid was placed over the injection site. Patient can use ice as needed for swelling and pain control. This will be sent for cultures, sensitivity, Gram stain, crystals, and cell count. Upon evaluation of results there may be need for surgical intervention including washout. This was discussed with the patient and nursing staff. Patient will remain n.p.o. Continue with pain medications per primary medicine. Further treatment will be dependent upon outcome of aspiration and results. Continue with recommendations per infectious disease. Appreciate consult and please contact orthopedics with any concerns or questions.
[2019-02-02 11:35] LABS: Bedside Glucose 234 mg/dL (70-110)
[2019-02-02 11:53] LABS: Pathologist Comment May follow
[2019-02-02 12:03] LABS: Synovial Fld Mononuclear WBC % 12.8 %; Synovial Fld Polynuclear WBC # 0.613 10^3/ul; Synovial Fld Polynuclear WBC % 87.2 %
[2019-02-02 12:16] LABS: Pathologist Review Reviewed
[2019-02-02 12:17] LABS: AUTO B FLUID DILUENT BKGD CT WBC <0.1 RBC <0.01 (W<.1,R<.01); Source / Synovial Fluid RIGHT KNEE; Source- Body Fluid SYNOVIAL
[2019-02-02 12:18] LABS: Appearance /Synovial Fluid Sl Cl (CLEAR); Color / Synovial Fluid Straw (Pale Yellow)
--- NOTE | 2019-02-02 13:32 | PCM.CONS.GEN ---
Reason for Consult Date of Consultation: 02/02/19 Reason for Consultation: Diabetic abscess left thumb and hand. REFERRING PHYSICIAN: Dr. Saucedo. LOZENGE D[employer] MIXER: Dr. Rankin. History of Present Illness: The patient is a 53 year old M was admitted to hospital with sepsis and uncontrolled diabetes and associated increasing pain and redness and swelling left hand and thumb. Patient is left hand dominant. Patient states he fell a week ago and his symptomatology progressively worsened. He denies fever. Plain Xray of the hand in the ED is normal. WBC was 24.9. Random blood sugar was 624. Lactic acid was 2.9. ESR is 18 and the CRP is 41.9. HgbA1c was 10.5. He was started on Vancomycin and Zosyn. His blood cultures were positive for Staphylococcus aureus. His antibiotics have been changed to Ancef and Cleocin. CT hand was done today which showed a 3.9 cm x 4.9 cm hypodensity with possible septation along the volar aspect of the thenar space. This may represent abscess collection. I was asked to evaluate this patient for surgical options for treatment. 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 ketorolac [From Toradol] Adverse Reaction (Verified 02/01/19 08:01) real sluggish Current Medications Al Hydroxide/Mg Hydroxide (Mylanta Ii) 30 ml PO Q6H PRN PRN PRN Reason: Gastric Burning Atorvastatin Calcium (Lipitor) 40 mg PO DAILY@2200 [facility] Last Admin: 02/01/19 21:57 Dose: 40 mg Bisacodyl (Dulcolax) 5 mg PO DAILY PRN PRN PRN Reason: Constipation Dextrose (D50w Syringe) 0 gm IV X1 PRN; Protocol PRN Reason: Hypoglycemia Docusate Sodium (Colace) 100 mg PO BID PRN PRN PRN Reason: Constipation Enoxaparin Sodium (Lovenox) 40 mg SC DAILY@1000 [facility] Last Admin: 02/02/19 10:26 Dose: 40 mg Glucagon () 1 mg IM .X1 PRN PRN Reason: Hypoglycemia Hydromorphone HCl (Dilaudid Inj) 1 mg IV Q4H PRN PRN PRN Reason: SEVERE PAIN () Last Admin: 02/02/19 11:03 Dose: 1 mg Pantoprazole Sodium 40 mg/ (Sodium Chloride) 110 mls @ 330 mls/hr IV Q12 [facility] Last Admin: 02/02/19 10:36 Dose: Not Given Potassium Chloride 10 meq/ (Sodium Chloride) 1,005 mls @ 150 mls/hr IV .Q6H42M [facility] Last Admin: 02/02/19 11:34 Dose: 150 mls/hr Cefazolin Sodium 2 gm/ Sodium (Chloride) 110 mls @ 150 mls/hr IV Q8 [facility] Clindamycin Phosphate 900 mg/ (Dextrose) 106 mls @ 75 mls/hr IV Q8H [facility] Last Admin: 02/02/19 13:05 Dose: 75 mls/hr Insulin Glargine (Lantus (Bkc)) 30 units SC DAILY [facility] Last Admin: 02/02/19 10:26 Dose: 30 units Insulin Human Lispro (Humalog Kwikpen (Bkc)) 0 unit SC TIDAC [facility]; Protocol Last Admin: 02/02/19 11:58 Dose: Not Given Lisinopril (Zestril) 10 mg PO DAILY [facility] Last Admin: 02/02/19 10:25 Dose: 10 mg Magnesium Oxide (Mag-Ox 400) 400 mg PO DAILYCM [facility] Last Admin: 02/02/19 10:25 Dose: 400 mg Nutritional Formula (Lactose Free) (Glucerna Shake) 120 ml PO 4X/DAY [facility] Last Admin: 02/02/19 10:26 Dose: Not Given Ondansetron HCl (Zofran) 4 mg IV Q6H PRN PRN PRN Reason: NAUSEA/VOMITING Oxycodone HCl (Oxyir) 10 mg PO Q4H PRN PRN PRN Reason: SEVERE PAIN (6-08/03) Last Admin: 02/02/19 09:25 Dose: 10 mg Potassium Chloride (K-Dur) 20 meq PO BIDCM [facility] Last Admin: 02/02/19 10:25 Dose: 20 meq Sodium Chloride () 5 - 15 ml IV UD PRN PRN Reason: SALINE FLUSH Last Admin: 02/02/19 05:35 Dose: 10 ml Sodium Chloride (Sodium Chloride 3%) 3 ml INHALATION Q8H.RT [facility] Stop: 02/04/19 08:01 Last Admin: 02/02/19 09:48 Dose: 3 ml Sodium Chloride/Electrolytes (Nulytely) 2,000 ml PO 0600,1800 [facility] Stop: 02/02/19 18:01 Last Admin: 02/02/19 06:14 Dose: 2,000 ml Home Medications: Ambulatory Orders Medication Instructions Recorded insulin glargine 100 30 unit SC DAILY ml 08/18/18 unit-lixisenatide 33 mcg/mL subcutaneous pen lisinopril 10 mg tablet 10 mg PO DAILY #90 tab 10/04/18 Atorvastatin Calcium 40 mg PO DAILY 11/14/18 Insulin Lispro [Humalog Kwikpen] 15 unit SC TIDCM 11/14/18 Surgical History: Surgical History (Last Reviewed 02/01/19 @ 08:28 by Nan Saucedo DO) History of appendectomy Z90.49 S/P laparoscopic cholecystectomy Z90.49 Surgical History: appendectomy, cholecystectomy, - Psychiatric History: No pertinent psych hx Lives: Spouse/ Significant Other Smoking Status: Former smoker Tobacco Use: Non-smoker Alcohol: None Drugs: None - *Family History Maternal Family History: Family History (Last Reviewed 02/01/19 @ 08:28 by Nan Saucedo DO) Father Diabetes Mother Diabetes History Items: Diabetes Paternal Family History: Family History (Last Reviewed 02/01/19 @ 08:28 by Nan Saucedo DO) Father Diabetes Mother Diabetes History Items: Heart Disease - CAD s/p CABG history. Patient notes that his paternal grandmother had diabetes. Review of Systems Comment: Constitutional: Reports: Weight Change. Denies: Chills, Fever. Eyes: Denies: Blurred vision, Redness. HEENT: Denies: Head Aches, Sinus Congestion, Sinus Drainage. Cardiovascular: Denies: Chest Pain, Palpitations. Respiratory: Denies: Cough, Shortness of breath at rest, Sputum production. Gastrointestinal: Reports: Abdominal Pain, Nausea, Vomiting. Genitourinary: Reports: Frequency. Denies: Dysuria. Musculoskeletal: Reports: Back Pain. Denies: Joint Pain, Joint Tenderness. Skin: Denies: Rash, Wounds. Neurological: Denies: Focal weakness, Numbness, Tingling, Tremor, Seizures. Psychiatric: Denies: Anxiety, Depression, Homicidal Ideations, Suicidal Ideations. Endocrine: Denies: Hx of Thyroiditis. Hematologic/ Lymphatic: Denies: Easy Bruising, Easy Bleeding, Hx of blood clot Patient Problems: Active and Suspected Problems (Last Reviewed 02/01/19 @ 08:28 by Nan Saucedo DO) Sepsis (Acute) Cellulitis (Acute) Dehydration (Acute) Hypokalemia (Acute) MSSA bacteremia (Acute) Knee effusion, right (Acute) Knee pain, right (Acute) - Physical Exam General: Alert, Oriented x3, Cooperative. HEENT: PERRLA, EOMI. Oral: Dry Mucosa, - - Poor dentition Neck: Supple, nontender. No cervical adenopathy. Lungs: Diminished Cardiovascular: Regular Rhythm, Tachycardic Abdomen: Bowel Sounds Present, Soft, Non-Distended, Tender, - - No masses appreciated Extremities: No clubbing, No cyanosis. Moderate tense edema left hand in the area of the left thumb, thenar eminence, and dorsum hand over first webspace. Erythema and warmth to the touch is present. Has clinical evidence of tenosynovitis. Skin is tight. Thumb is tense with dorsal and volar swelling, and tender to palpation. Exquisite tenderness with gentle touch. No attempt was done with passive extension secondary to exquisite tenderness. Thumb is in slightly flexed position. Radial pulses are palpable. Has paresthesias with associated pain and swelling. No axillary adenopathy. Wrist is nontender. Rest of palm is nontender. Other fingers are soft and nontender. Thumb opposition not done secondary to pain and swelling. There is a small ulceration on the dorsal base left thumb. Pus was expressed. Neurological: Cranial nerves II-XII grossly intact. Psych/Mental Status: Normal Affect, Appropriate Vital Signs Temp Pulse Resp BP Pulse Ox 100.2 F H 83 18 183/85 H 100 02/02/19 09:33 02/02/19 09:33 02/02/19 09:33 02/02/19 09:33 02/02/19 09:33 Oxygen Delivery Method Room Air Weight: 133 lb 9.602 oz Body Mass Index (BMI) 17.2 Finger Stick Blood Glucose 406 Intake and Output for Last 24 Hours 01/31/19 02/01/19 02/02/19 23:59 23:59 23:59 Intake Total 2175 / 2175 2989 / 2989 Output Total 400 / 400 Balance 1775 / 1775 2989 / 2989 Microbiology Past 72 Hours 02/01/19 03:50 Blood Culture - Final Blood Culture (Wb) - Anticubital Left Staphylococcus aureus 02/01/19 02:30 Bacteria Detection (PCR) - Final Blood Culture (Wb) - Anticubital Right Staphylococcus aureus Blood Culture - Preliminary Staphylococcus aureus 02/01/19 17:08 Stool Occult Blood (LEONIE) - Final Stool Occult Blood Positive Laboratory Tests Past 24 Hrs 02/01/19 02/01/19 02/02/19 16:32 16:36 05:00 WBC 24.6 H RBC 2.95 L Hgb 9.5 L Hct 26.6 L MCV 90.2 MCH 32.2 H MCHC 35.7 RDW 11.6 RDW Differential 37.4 Plt Count 317 MPV 9.8 Immature Gran % (Auto) 1.000 H Neut % (Auto) 88.0 H Lymph % (Auto) 4.3 L Luce % (Auto) 6.6 Eos % (Auto) 0.1 Baso % (Auto) 0.0 Absolute Neuts (auto) 21.6 H Absolute Lymphs (auto) 1.05 Total Counted Not Reportable Diff Path Review Reviewed Sodium 137 Potassium 3.6 Chloride 103 Carbon Dioxide 24.0 Anion Gap 10 BUN 14 Creatinine 0.81 Estim Creat Clear Calc 91.74 Est GFR (MDRD) Af Amer 129 Est GFR (MDRD) Non-Af 107 BUN/Creatinine Ratio 17.4 Glucose 69 L Calcium 8.7 Phosphorus Magnesium Triglycerides Cholesterol LDL Cholesterol VLDL Cholesterol HDL Cholesterol Urine Total Protein Pending Urine Albumin Pending U Hkpty-4-Sizxbtpa Pending U Zqvtm-9-Oceewxmi Pending U Beta Globulin Pending U Gamma Globulin Pending U PEP M-Haris Pending Fluid Source Fluid Color Fluid Appearance Fluid WBC Fluid RBC Fluid Tot Cell Count Fld Polynuclear WBCs # Fld Polynuclear WBCs % Fluid Mononuclear WBCs Fld Mononuclear WBCs % Fluid Neutrophils Fluid Lymphocytes Fluid Monocytes Fluid Plasma Cells Fluid Macrophages Fld Mesothelial Cells Fluid Other Cells Fluid Crystals Fluid Crystal Source Fl Pathologist Comment Fluid Comment 2 Synovial Source Synovial Color Synovial Appearance Synovial WBC Synovial RBC Synovial Tot Cell Ct Synov Polynuclear WBCs Synovial Polynuclear % Synovial Mononuclear % Synovial Path Comment Hepatitis A IgM Ab Hepatitis A Ab Total Hep Bs Antigen Hep B Core Total Ab Hep B Core IgM Ab HIV 1&2 Antibody 02/02/19 02/02/19 02/02/19 05:00 08:48 08:48 WBC RBC Hgb Hct MCV MCH MCHC RDW RDW Differential Plt Count MPV Immature Gran % (Auto) Neut % (Auto) Lymph % (Auto) Luce % (Auto) Eos % (Auto) Baso % (Auto) Absolute Neuts (auto) Absolute Lymphs (auto) Total Counted Diff Path Review Sodium 137 Potassium 4.1 Chloride 106 Carbon Dioxide 25.0 Anion Gap 6 BUN 15 Creatinine 0.66 L Estim Creat Clear Calc 112.59 Est GFR (MDRD) Af Amer 161 Est GFR (MDRD) Non-Af 133 BUN/Creatinine Ratio 22.6 H Glucose 239 H Calcium 7.7 L Phosphorus 2.5 Magnesium 2.4 Triglycerides 109 Cholesterol 62 LDL Cholesterol 26 VLDL Cholesterol 22 HDL Cholesterol 14 L Urine Total Protein Urine Albumin U Hqjzj-1-Ejvwuhoa U Dedjk-1-Stdmwblp U Beta Globulin U Gamma Globulin U PEP M-Haris Fluid Source Fluid Color Fluid Appearance Fluid WBC Fluid RBC Fluid Tot Cell Count Fld Polynuclear WBCs # Fld Polynuclear WBCs % Fluid Mononuclear WBCs Fld Mononuclear WBCs % Fluid Neutrophils Fluid Lymphocytes Fluid Monocytes Fluid Plasma Cells Fluid Macrophages Fld Mesothelial Cells Fluid Other Cells Fluid Crystals Fluid Crystal Source Fl Pathologist Comment Fluid Comment 2 Synovial Source Synovial Color Synovial Appearance Synovial WBC Synovial RBC Synovial Tot Cell Ct Synov Polynuclear WBCs Synovial Polynuclear % Synovial Mononuclear % Synovial Path Comment Hepatitis A IgM Ab Pending Hepatitis A Ab Total Pending Hep Bs Antigen Pending Hep B Core Total Ab Pending Hep B Core IgM Ab Pending HIV 1&2 Antibody Non-Reactive 02/02/19 11:15 WBC RBC Hgb Hct MCV MCH MCHC RDW RDW Differential Plt Count MPV Immature Gran % (Auto) Neut % (Auto) Lymph % (Auto) Luce % (Auto) Eos % (Auto) Baso % (Auto) Absolute Neuts (auto) Absolute Lymphs (auto) Total Counted Diff Path Review Sodium Potassium Chloride Carbon Dioxide Anion Gap BUN Creatinine Estim Creat Clear Calc Est GFR (MDRD) Af Amer Est GFR (MDRD) Non-Af BUN/Creatinine Ratio Glucose Calcium Phosphorus Magnesium Triglycerides Cholesterol LDL Cholesterol VLDL Cholesterol HDL Cholesterol Urine Total Protein Urine Albumin U Gjsid-5-Wssubmdq U Tvacy-5-Mlnguelt U Beta Globulin U Gamma Globulin U PEP M-Haris Fluid Source Cancelled Fluid Color Cancelled Fluid Appearance Cancelled Fluid WBC Cancelled Fluid RBC Cancelled Fluid Tot Cell Count Cancelled Fld Polynuclear WBCs # Cancelled Fld Polynuclear WBCs % Cancelled Fluid Mononuclear WBCs Cancelled Fld Mononuclear WBCs % Cancelled Fluid Neutrophils Cancelled Fluid Lymphocytes Cancelled Fluid Monocytes Cancelled Fluid Plasma Cells Cancelled Fluid Macrophages Cancelled Fld Mesothelial Cells Cancelled Fluid Other Cells Cancelled Fluid Crystals SEE PATH REV Fluid Crystal Source SYNOVIAL Fl Pathologist Comment Cancelled Fluid Comment 2 Cancelled Synovial Source RIGHT KNEE Synovial Color Straw Synovial Appearance Sl Cl Synovial WBC 0.7030 H Synovial RBC Pending Synovial Tot Cell Ct 0.7210 H Synov Polynuclear WBCs 0.613 Synovial Polynuclear % 87.2 Synovial Mononuclear % 12.[address] Comment May follow Hepatitis A IgM Ab Hepatitis A Ab Total Hep Bs Antigen Hep B Core Total Ab Hep B Core IgM Ab HIV 1&2 Antibody POC Glucose 02/02/19 02/02/19 02/01/19 11:25 09:29 22:20 POC Glucose 234 H 266 H 118 H 02/01/19 16:34 POC Glucose 103 Diagnostic Data Abdomen/Pelvis CT 02/01/19 02:35 IMPRESSION: Indeterminate lingula and left lower lobe parenchymal changes may represent an inflammatory/infectious process, peripheral infarct cannot be on limited examination. These are likely new findings since previous examination allowing for changing technique. Consider CT examination chest for further detail. Trace fluid in the gallbladder fossa and posterior to the pancreas and superior retroperitoneum unchanged since 10/2018 of questionable significance. There is an indeterminant cortical lesion in the right mid kidney which was not present on previous examination and does not represent a simple cyst. Further assessment is recommended to exclude complex cyst versus early neoplasm. Other nonacute findings as outlined above. Electronically Signed: Carolyn Gamez MD at 5:34 EDT , Service support , Hand X-Ray 02/01/19 03:10 IMPRESSION: There is no acute displaced fracture or dislocation. Electronically Signed: Carolyn Gamez MD at 3:23 EDT , Service support , Chest X-Ray 02/01/19 05:40 IMPRESSION: No acute cardiopulmonary disease. No significant interval change. Electronically Signed: Carolyn Gamez MD at 6:29 EDT , Service support , Chest CT 02/02/19 08:07 IMPRESSION: There multiple bilateral cavitating pulmonary masses. Largest is in the RIGHT upper lung measuring 17 mm. These could be necrotic metastases or septic emboli. There is NO pleural effusion or pneumothorax. Normal heart and pericardium. There is LEFT axillary lymphadenopathy. Electronically Signed: David Wright MD at 6:14 EDT , Service support , Upper Extremity CT 02/02/19 09:54 IMPRESSION: Diffuse soft tissue cellulitis in the region of the thenar space with evidence of air bubbles along the dorsal aspect as well as possible abscess collection along the volar aspect of the thenar space. No radiopaque foreign body is seen. Electronically Signed: Nicolás Vinson, at 12:40 EDT , Service support , Assessment/Plan All Active Problems (Last Reviewed 02/01/19 @ 08:28 by Nan Saucedo DO) Necrotizing soft tissue infection (Acute) Abscess of dorsum of left hand (Acute) Abscess of bursa, left hand (Acute) Abscess of thumb, left (Acute) Suppurative tenosynovitis of flexor tendon of left hand (Acute) Sepsis (Acute) Cellulitis (Acute) Dehydration (Acute) Hypokalemia (Acute) MSSA bacteremia (Acute) Knee effusion, right (Acute) Knee pain, right (Acute) Acute pancreatitis (Resolved) Gastroenteritis (Resolved) 1. Diabetic abscess left thumb. 2. Diabetic abscess thenar eminence left palm. 3. Diabetic abscess dorsum left hand at first webspace. 4. Tenosynovitis. 5. Diabetes mellitus. 6. Sepsis. Continue Ancef and Cleocin. Cultures thus far show Staphylococcus aureus. Keep left hand elevated on two pillows. Patient has diabetes mellitus that is out of control, admission level was 624 and HgbA1c was 10.5. He has a worsening abscess in his left thumb and hand. He is left hand dominant. Recommended urgent operative intervention today to proceed with incision and drainage and excisional debridement of these large complex diabetic abscesses. Will send tissue to Pathology for analysis and to Microbiology for culture. A positive culture may necessitate antibiotic modification. With his hand being quite swollen and firm, I am concerned that there is widespread pus in the hand. His thumb cannot move and is quite exquisitely painful. I am concerned about suppurative flexor tenosynovitis. The wounds will be left open and wound care started with Silver dressing changes daily. Anticipate the dressing changes will be painful for a while. He should be evaluated for an ECF. Also with the anticipated severity of the infection, he will need 6 weeks of IV antibiotics. Anticipate stiffness of his thumb and hand and will need extensive aggressive OT for range of motion exercises, strengthening, and edema management. Anticipate increased metabolic demands from the infection and the surgical wounds. Will check a Prealbumin and will need nutritional supplementation with protein to help the healing process. Depending on how severe the infection is at the time of surgery and the amount of pus present, I will watch him closely during the initial postop period. If improvement is too slow or if his hand worsens, then he would need additional irrigation and drainage and excisional debridement to make sure additional infection is not present. Patient was informed of the risks and complications of the procedure including alternatives to surgery. These were discussed with the patient personally. Patient voices understanding and wishes to proceed. Some of the risks and complications that were discussed included but were not inclusive of failure to diagnose including symptom relief, pain, infection, numbness, stiffness, loss of digit, RSD (CRPS), need for further surgery, contracture, and wound healing problems. I discussed the seriousness of this infection with the patient. Surgery must be done today. If we wait until tomorrow or in the next couple of days, he is at increased risk for worsening of the infection, amputation, or . He voices understanding. After discharge, I can see him at [facility]. Code Visit Inpatient E&M: 32554 Init Hosp L3 - -57 Modifier ICD-10 - L02.512, M71.042, M65.9, E11.9, A41.9
--- NOTE | 2019-02-02 13:35 | CASEMGMT ---
Pt has been off the floor today for multiple tests. Pt is currently having a PICC line placed and is also going for surgery today w/Dr. Rankin. SW will attempt again to see pt today, otherwise, will follow up w/pt tomorrow. REBECCA Lawrence
--- NOTE | 2019-02-02 13:36 | CON.PCM_ITS ---
Reason for Consult Date of Consultation: 02/02/19 Reason for Consultation: Diabetic abscess left thumb and hand. REFERRING PHYSICIAN: Dr. Saucedo. GAME SHOW HOST: Dr. Rankin. History of Present Illness: The patient is a 53 year old M was admitted to hospital with sepsis and uncontrolled diabetes and associated increasing pain and redness and swelling left hand and thumb. Patient is left hand dominant. Patient states he fell a week ago and his symptomatology progressively worsened. He denies fever. Plain Xray of the hand in the ED is normal. WBC was 24.9. Random blood sugar was 624. Lactic acid was 2.9. ESR is 18 and the CRP is 41.9. HgbA1c was 10.5. He was started on Vancomycin and Zosyn. His blood cultures were positive for Staphylococcus aureus. His antibiotics have been changed to Ancef and Cleocin. CT hand was done today which showed a 3.9 cm x 4.9 cm hypodensity with possible septation along the volar aspect of the thenar space. This may represent abscess collection. I was asked to evaluate this patient for surgical options for treatment. 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 ketorolac [From Toradol] Adverse Reaction (Verified 02/01/19 08:01) real sluggish Current Medications Al Hydroxide/Mg Hydroxide (Mylanta Ii) 30 ml PO Q6H PRN PRN PRN Reason: Gastric Burning Atorvastatin Calcium (Lipitor) 40 mg PO DAILY@2200 [facility] Last Admin: 02/01/19 21:57 Dose: 40 mg Bisacodyl (Dulcolax) 5 mg PO DAILY PRN PRN PRN Reason: Constipation Dextrose (D50w Syringe) 0 gm IV X1 PRN; Protocol PRN Reason: Hypoglycemia Docusate Sodium (Colace) 100 mg PO BID PRN PRN PRN Reason: Constipation Enoxaparin Sodium (Lovenox) 40 mg SC DAILY@1000 [facility] Last Admin: 02/02/19 10:26 Dose: 40 mg Glucagon () 1 mg IM .X1 PRN PRN Reason: Hypoglycemia Hydromorphone HCl (Dilaudid Inj) 1 mg IV Q4H PRN PRN PRN Reason: SEVERE PAIN () Last Admin: 02/02/19 11:03 Dose: 1 mg Pantoprazole Sodium 40 mg/ (Sodium Chloride) 110 mls @ 330 mls/hr IV Q12 [facility] Last Admin: 02/02/19 10:36 Dose: Not Given Potassium Chloride 10 meq/ (Sodium Chloride) 1,005 mls @ 150 mls/hr IV .Q6H42M [facility] Last Admin: 02/02/19 11:34 Dose: 150 mls/hr Cefazolin Sodium 2 gm/ Sodium (Chloride) 110 mls @ 150 mls/hr IV Q8 [facility] Clindamycin Phosphate 900 mg/ (Dextrose) 106 mls @ 75 mls/hr IV Q8H [facility] Last Admin: 02/02/19 13:05 Dose: 75 mls/hr Insulin Glargine (Lantus (Bkc)) 30 units SC DAILY [facility] Last Admin: 02/02/19 10:26 Dose: 30 units Insulin Human Lispro (Humalog Kwikpen (Bkc)) 0 unit SC TIDAC [facility]; Protocol Last Admin: 02/02/19 11:58 Dose: Not Given Lisinopril (Zestril) 10 mg PO DAILY [facility] Last Admin: 02/02/19 10:25 Dose: 10 mg Magnesium Oxide (Mag-Ox 400) 400 mg PO DAILYCM [facility] Last Admin: 02/02/19 10:25 Dose: 400 mg Nutritional Formula (Lactose Free) (Glucerna Shake) 120 ml PO 4X/DAY [facility] Last Admin: 02/02/19 10:26 Dose: Not Given Ondansetron HCl (Zofran) 4 mg IV Q6H PRN PRN PRN Reason: NAUSEA/VOMITING Oxycodone HCl (Oxyir) 10 mg PO Q4H PRN PRN PRN Reason: SEVERE PAIN (6-08/03) Last Admin: 02/02/19 09:25 Dose: 10 mg Potassium Chloride (K-Dur) 20 meq PO BIDCM [facility] Last Admin: 02/02/19 10:25 Dose: 20 meq Sodium Chloride () 5 - 15 ml IV UD PRN PRN Reason: SALINE FLUSH Last Admin: 02/02/19 05:35 Dose: 10 ml Sodium Chloride (Sodium Chloride 3%) 3 ml INHALATION Q8H.RT [facility] Stop: 02/04/19 08:01 Last Admin: 02/02/19 09:48 Dose: 3 ml Sodium Chloride/Electrolytes (Nulytely) 2,000 ml PO 0600,1800 [facility] Stop: 02/02/19 18:01 Last Admin: 02/02/19 06:14 Dose: 2,000 ml Home Medications: Ambulatory Orders Medication Instructions Recorded insulin glargine 100 30 unit SC DAILY ml 08/18/18 unit-lixisenatide 33 mcg/mL subcutaneous pen lisinopril 10 mg tablet 10 mg PO DAILY #90 tab 10/04/18 Atorvastatin Calcium 40 mg PO DAILY 11/14/18 Insulin Lispro [Humalog Kwikpen] 15 unit SC TIDCM 11/14/18 Surgical History: Surgical History (Last Reviewed 02/01/19 @ 08:28 by Nan Saucedo DO) History of appendectomy Z90.49 S/P laparoscopic cholecystectomy Z90.49 Surgical History: appendectomy, cholecystectomy, - Psychiatric History: No pertinent psych hx Lives: Spouse/ Significant Other Smoking Status: Former smoker Tobacco Use: Non-smoker Alcohol: None Drugs: None - *Family History Maternal Family History: Family History (Last Reviewed 02/01/19 @ 08:28 by Nan Saucedo DO) Father Diabetes Mother Diabetes History Items: Diabetes Paternal Family History: Family History (Last Reviewed 02/01/19 @ 08:28 by Nan Saucedo DO) Father Diabetes Mother Diabetes History Items: Heart Disease - CAD s/p CABG history. Patient notes that his paternal grandmother had diabetes. Review of Systems Comment: Constitutional: Reports: Weight Change. Denies: Chills, Fever. Eyes: Denies: Blurred vision, Redness. HEENT: Denies: Head Aches, Sinus Congestion, Sinus Drainage. Cardiovascular: Denies: Chest Pain, Palpitations. Respiratory: Denies: Cough, Shortness of breath at rest, Sputum production. Gastrointestinal: Reports: Abdominal Pain, Nausea, Vomiting. Genitourinary: Reports: Frequency. Denies: Dysuria. Musculoskeletal: Reports: Back Pain. Denies: Joint Pain, Joint Tenderness. Skin: Denies: Rash, Wounds. Neurological: Denies: Focal weakness, Numbness, Tingling, Tremor, Seizures. Psychiatric: Denies: Anxiety, Depression, Homicidal Ideations, Suicidal Ideations. Endocrine: Denies: Hx of Thyroiditis. Hematologic/ Lymphatic: Denies: Easy Bruising, Easy Bleeding, Hx of blood clot Patient Problems: Active and Suspected Problems (Last Reviewed 02/01/19 @ 08:28 by Nan Saucedo DO) Sepsis (Acute) Cellulitis (Acute) Dehydration (Acute) Hypokalemia (Acute) MSSA bacteremia (Acute) Knee effusion, right (Acute) Knee pain, right (Acute) - Physical Exam General: Alert, Oriented x3, Cooperative. HEENT: PERRLA, EOMI. Oral: Dry Mucosa, - - Poor dentition Neck: Supple, nontender. No cervical adenopathy. Lungs: Diminished Cardiovascular: Regular Rhythm, Tachycardic Abdomen: Bowel Sounds Present, Soft, Non-Distended, Tender, - - No masses appr eciated Extremities: No clubbing, No cyanosis. Moderate tense edema left hand in the area of the left thumb, thenar eminence, and dorsum hand over first webspace. Erythema and warmth to the touch is present. Has clinical evidence of tenosynovitis. Skin is tight. Thumb is tense with dorsal and volar swelling, and tender to palpation. Exquisite tenderness with gentle touch. No attempt was done with passive extension secondary to exquisite tenderness. Thumb is in slightly flexed position. Radial pulses are palpable. Has paresthesias with associated pain and swelling. No axillary adenopathy. Wrist is nontender. Rest of palm is nontender. Other fingers are soft and nontender. Thumb opposition not done secondary to pain and swelling. There is a small ulceration on the dorsal base left thumb. Pus was expressed. Neurological: Cranial nerves II-XII grossly intact. Psych/Mental Status: Normal Affect, Appropriate Vital Signs Temp Pulse Resp BP Pulse Ox 100.2 F H 83 18 183/85 H 100 02/02/19 09:33 02/02/19 09:33 02/02/19 09:33 02/02/19 09:33 02/02/19 09:33 Oxygen Delivery Method Room Air Weight: 133 lb 9.602 oz Body Mass Index (BMI) 17.2 Finger Stick Blood Glucose 406 Intake and Output for Last 24 Hours 01/31/19 02/01/19 02/02/19 23:59 23:59 23:59 Intake Total 2175 / 2175 2989 / 2989 Output Total 400 / 400 Balance 1775 / 1775 2989 / 2989 Microbiology Past 72 Hours 02/01/19 03:50 Blood Culture - Final Blood Culture (Wb) - Anticubital Left Staphylococcus aureus 02/01/19 02:30 Bacteria Detection (PCR) - Final Blood Culture (Wb) - Anticubital Right Staphylococcus aureus Blood Culture - Preliminary Staphylococcus aureus 02/01/19 17:08 Stool Occult Blood (LEONIE) - Final Stool Occult Blood Positive Laboratory Tests Past 24 Hrs 02/01/19 02/01/19 02/02/19 16:32 16:36 05:00 WBC 24.6 H RBC 2.95 L Hgb 9.5 L Hct 26.6 L MCV 90.2 MCH 32.2 H MCHC 35.7 RDW 11.6 RDW Differential 37.4 Plt Count 317 MPV 9.8 Immature Gran % (Auto) 1.000 H Neut % (Auto) 88.0 H Lymph % (Auto) 4.3 L [place] % (Auto) 6.6 Eos % (Auto) 0.1 Baso % (Auto) 0.0 Absolute Neuts (auto) 21.6 H Absolute Lymphs (auto) 1.05 Total Counted Not Reportable Diff Path Review Reviewed Sodium 137 Potassium 3.6 Chloride 103 Carbon Dioxide 24.0 Anion Gap 10 BUN 14 Creatinine 0.81 Estim Creat Clear Calc 91.74 Est GFR (MDRD) Af Amer 129 Est GFR (MDRD) Non-Af 107 BUN/Creatinine Ratio 17.4 Glucose 69 L Calcium 8.7 Phosphorus Magnesium Triglycerides Cholesterol LDL Cholesterol VLDL Cholesterol HDL Cholesterol Urine Total Protein Pending Urine Albumin Pending U Oxudm-6-Hjmpbxtu Pending U Ivznd-6-Ditmpyfe Pending U Beta Globulin Pending U Gamma Globulin Pending U PEP M-Haris Pending Fluid Source Fluid Color Fluid Appearance Fluid WBC Fluid RBC Fluid Tot Cell Count Fld Polynuclear WBCs # Fld Polynuclear WBCs % Fluid Mononuclear WBCs Fld Mononuclear WBCs % Fluid Neutrophils Fluid Lymphocytes Fluid Monocytes Fluid Plasma Cells Fluid Macrophages Fld Mesothelial Cells Fluid Other Cells Fluid Crystals Fluid Crystal Source Fl Pathologist Comment Fluid Comment 2 Synovial Source Synovial Color Synovial Appearance Synovial WBC Synovial RBC Synovial Tot Cell Ct Synov Polynuclear WBCs Synovial Polynuclear % Synovial Mononuclear % Synovial Path Comment Hepatitis A IgM Ab Hepatitis A Ab Total Hep Bs Antigen Hep B Core Total Ab Hep B Core IgM Ab HIV 1&2 Antibody 02/02/19 02/02/19 02/02/19 05:00 08:48 08:48 WBC RBC Hgb Hct MCV MCH MCHC RDW RDW Differential Plt Count MPV Immature Gran % (Auto) Neut % (Auto) Lymph % (Auto) [place] % (Auto) Eos % (Auto) Baso % (Auto) Absolute Neuts (auto) Absolute Lymphs (auto) Total Counted Diff Path Review Sodium 137 Potassium 4.1 Chloride 106 Carbon Dioxide 25.0 Anion Gap 6 BUN 15 Creatinine 0.66 L Estim Creat Clear Calc 112.59 Est GFR (MDRD) Af Amer 161 Est GFR (MDRD) Non-Af 133 BUN/Creatinine Ratio 22.6 H Glucose 239 H Calcium 7.7 L Phosphorus 2.5 Magnesium 2.4 Triglycerides 109 Cholesterol 62 LDL Cholesterol 26 VLDL Cholesterol 22 HDL Cholesterol 14 L Urine Total Protein Urine Albumin U Axnld-9-Lwejdodw U Cihac-7-Fcvykwom U Beta Globulin U Gamma Globulin U PEP M-Haris Fluid Source Fluid Color Fluid Appearance Fluid WBC Fluid RBC Fluid Tot Cell Count Fld Polynuclear WBCs # Fld Polynuclear WBCs % Fluid Mononuclear WBCs Fld Mononuclear WBCs % Fluid Neutrophils Fluid Lymphocytes Fluid Monocytes Fluid Plasma Cells Fluid Macrophages Fld Mesothelial Cells Fluid Other Cells Fluid Crystals Fluid Crystal Source Fl Pathologist Comment Fluid Comment 2 Synovial Source Synovial Color Synovial Appearance Synovial WBC Synovial RBC Synovial Tot Cell Ct Synov Polynuclear WBCs Synovial Polynuclear % Synovial Mononuclear % Synovial Path Comment Hepatitis A IgM Ab Pending Hepatitis A Ab Total Pending Hep Bs Antigen Pending Hep B Core Total Ab Pending Hep B Core IgM Ab Pending HIV 1&2 Antibody Non-Reactive 02/02/19 11:15 WBC RBC Hgb Hct MCV MCH MCHC RDW RDW Differential Plt Count MPV Immature Gran % (Auto) Neut % (Auto) Lymph % (Auto) [place] % (Auto) Eos % (Auto) Baso % (Auto) Absolute Neuts (auto) Absolute Lymphs (auto) Total Counted Diff Path Review Sodium Potassium Chloride Carbon Dioxide Anion Gap BUN Creatinine Estim Creat Clear Calc Est GFR (MDRD) Af Amer Est GFR (MDRD) Non-Af BUN/Creatinine Ratio Glucose Calcium Phosphorus Magnesium Triglycerides Cholesterol LDL Cholesterol VLDL Cholesterol HDL Cholesterol Urine Total Protein Urine Albumin U Bomyy-5-Tsjvhxky U Cnxua-8-Pjgnzwuw U Beta Globulin U Gamma Globulin U PEP M-Haris Fluid Source Cancelled Fluid Color Cancelled Fluid Appearance Cancelled Fluid WBC Cancelled Fluid RBC Cancelled Fluid Tot Cell Count Cancelled Fld Polynuclear WBCs # Cancelled Fld Polynuclear WBCs % Cancelled Fluid Mononuclear WBCs Cancelled Fld Mononuclear WBCs % Cancelled Fluid Neutrophils Cancelled Fluid Lymphocytes Cancelled Fluid Monocytes Cancelled Fluid Plasma Cells Cancelled Fluid Macrophages Cancelled Fld Mesothelial Cells Cancelled Fluid Other Cells Cancelled Fluid Crystals SEE PATH REV Fluid Crystal Source SYNOVIAL Fl Pathologist Comment Cancelled Fluid Comment 2 Cancelled Synovial Source RIGHT KNEE Synovial Color Straw Synovial Appearance Sl Cl Synovial WBC 0.7030 H Synovial RBC Pending Synovial Tot Cell Ct 0.7210 H Synov Polynuclear WBCs 0.613 Synovial Polynuclear % 87.2 Synovial Mononuclear % 12.[address] Comment May follow Hepatitis A IgM Ab Hepatitis A Ab Total Hep Bs Antigen Hep B Core Total Ab Hep B Core IgM Ab HIV 1&2 Antibody POC Glucose 02/02/19 02/02/19 02/01/19 11:25 09:29 22:20 POC Glucose 234 H 266 H 118 H 02/01/19 16:34 POC Glucose 103 Diagnostic Data Abdomen/Pelvis CT 02/01/19 02:35 IMPRESSION: Indeterminate lingula and left lower lobe parenchymal changes may represent an inflammatory/infectious process, peripheral infarct cannot be on limited examination. These are likely new findings since previous examination allowing for changing technique. Consider CT examination chest for further detail. Trace fluid in the gallbladder fossa and posterior to the pancreas and superior retroperitoneum unchanged since 10/2018 of questionable significance. There is an indeterminant cortical lesion in the right mid kidney which was not present on previous examination and does not represent a simple cyst. Further assessment is recommended to exclude complex cyst versus early neoplasm. Other nonacute findings as outlined above. Electronically Signed: Carolyn Gamez MD at 5:34 EDT , Service support , Hand X-Ray 02/01/19 03:10 IMPRESSION: There is no acute displaced fracture or dislocation. Electronically Signed: Carolyn Gamez MD at 3:23 EDT , Service support , Chest X-Ray 02/01/19 05:40 IMPRESSION: No acute cardiopulmonary disease. No significant interval change. Electronically Signed: Carolyn Gamez MD at 6:29 EDT , Service support , Chest CT 02/02/19 08:07 IMPRESSION: There multiple bilateral cavitating pulmonary masses. Largest is in the RIGHT upper lung measuring 17 mm. These could be necrotic metastases or septic emboli. There is NO pleural effusion or pneumothorax. Normal heart and pericardium. There is LEFT axillary lymphadenopathy. Electronically Signed: David Wright MD at 6:14 EDT , Service support , Upper Extremity CT 02/02/19 09:54 IMPRESSION: Diffuse soft tissue cellulitis in the region of the thenar space with evidence of air bubbles along the dorsal aspect as well as possible abscess collection along the volar aspect of the thenar space. No radiopaque foreign body is seen. Electronically Signed: Nicolás Vinson, at 12:40 EDT , Service support , Assessment/Plan All Active Problems (Last Reviewed 02/01/19 @ 08:28 by Nan Saucedo DO) Necrotizing soft tissue infection (Acute) Abscess of dorsum of left hand (Acute) Abscess of bursa, left hand (Acute) Abscess of thumb, left (Acute) Suppurative tenosynovitis of flexor tendon of left hand (Acute) Sepsis (Acute) Cellulitis (Acute) Dehydration (Acute) Hypokalemia (Acute) MSSA bacteremia (Acute) Knee effusion, right (Acute) Knee pain, right (Acute) Acute pancreatitis (Resolved) Gastroenteritis (Resolved) 1. Diabetic abscess left thumb. 2. Diabetic abscess thenar eminence left palm. 3. Diabetic abscess dorsum left hand at first webspace. 4. Tenosynovitis. 5. Diabetes mellitus. 6. Sepsis. Continue Ancef and Cleocin. Cultures thus far show Staphylococcus aureus. Keep left hand elevated on two pillows. Patient has diabetes mellitus that is out of control, admission level was 624 and HgbA1c was 10.5. He has a worsening abscess in his left thumb and hand. He is left hand dominant. Recommended urgent operative intervention today to proceed with incision and drainage and excisional debridement of these large complex diabetic abscesses. Will send tissue to Pathology for analysis and to Microbiology for culture. A positive culture may necessitate antibiotic modification. With his hand being quite swollen and firm, I am concerned that there is widespread pus in the hand. His thumb cannot move and is quite exquisitely painful. I am concerned about suppurative flexor tenosynovitis. The wounds will be left open and wound care started with Silver dressing changes daily. Anticipate the dressing changes will be painful for a while. He should be evaluated for an ECF. Also with the anticipated severity of the infection, he will need 6 weeks of IV antibiotics. Anticipate stiffness of his thumb and hand and will need extensive aggressive OT for range of motion exercises, strengthening, and edema management. Anticipate increased metabolic demands from the infection and the surgical wounds. Will check a Prealbumin and will need nutritional supplementation with protein to help the healing process. Depending on how severe the infection is at the time of surgery and the amount of pus present, I will watch him closely during the initial postop period. If improvement is too slow or if his hand worsens, then he would need additional irrigation and drainage and excisional debridement to make sure additional infection is not present. Patient was informed of the risks and complications of the procedure including alternatives to surgery. These were discussed with the patient personally. Patient voices understanding and wishes to proceed. Some of the risks and complications that were discussed included but were not inclusive of failure to diagnose including symptom relief, pain, infection, numbness, stiffness, loss of digit, RSD (CRPS), need for further surgery, contracture, and wound healing problems. I discussed the seriousness of this infection with the patient. Surgery must be done today. If we wait until tomorrow or in the next couple of days, he is at increased risk for worsening of the infection, amputation, or . He voices understanding. After discharge, I can see [facility]. Code Visit Inpatient E&M: 07641 Init Hosp L3 - -57 Modifier ICD-10 - L02.512, M71.042, M65.9, E11.9, A41.9
[2019-02-02] MEDS: Insulin Lispro 100 UNIT/ML INSULN.PEN SC (14:15)
[2019-02-02 14:20] LABS: Lymph 12 %; Neutrophil 88 % (0-25)
[2019-02-02 14:21] LABS: Body Fluid QC Type(s) BF1Q,BF2Q,BF3Q; RBC /Synovial Fluid 2 /mm3 (0)
[2019-02-02 15:15] LABS: Pathologist Review Reviewed
--- NOTE | 2019-02-02 15:30 | ABS_PTH ---
PATIENT: LUCIANA ORO Sr. LOC: PCU U#:[id number] AGE/SX: 53/M ROOM: [facility] RE02/01/[address]: Dr. Leida Saucedo DO : 1965 BED: 1 DIS: 02/16/2019 SPEC #: [id number] RECD: 02/03/19 07:13 STATUS: ESTEFANIA ABHILASH #: [id number] SHAI: 02/02/19 15:[address]: Edmond Rankin DEPT: SURGICAL PATHOLOGY RECD BY: Braden Patton ENTERED: 02/03/19 10:56 SP TYPE: Abscess OTHR DR: DO Dr. Luc Guevara DO Dr. Efewongbe Oleghe, MD Dr. Linda Wang, MD Dr. Robert Leininger, MD Dr. Steven Widmer, MD Tissues: Hand, NOS Procedures: PAS Fungus (control) Special Stain Group I Surgery Specimen Level III AFB Stain (control) HEADER OPERATION: Surgical preparation left thumb and thenar eminence PRE-OP DIAGNOSIS: Sepsis secondary to cellulitis of left hand TISSUE SUBMITTED: Abscess left thumb and hand MICROSCOPIC DIAGNOSIS Left thumb and hand, abscess: A piece of skin with underlying tissue with acute inflammation and abscess formation. Special stains for acid fast bacilli and fungi are negative for organisms; matched controls are appropriate. DESTINEY:dwight 02/06/19 MICROSCOPIC DESCRIPTION Slides are reviewed. GROSS DESCRIPTION Received in fixative is one container labeled with the patient's name and designated abscess left thumb and hand. The specimen consists of a piece of bond-white skin with underlying tissue measuring 1 x 1 x 0.6 cm. The specimen is inked, serially sectioned and submitted entirely in one cassette. A thin piece of tissue is also noted measuring 1 x 1 x 0.1 cm. The entire specimen is submitted in one cassette. / DESTINEY:dwight 02/03/19 TC:2 CPT: 34671, 04412 x2
--- NOTE | 2019-02-02 17:48 | OP.PCM_ITS ---
Report of Operation Date of Procedure: 02/02/19 Pre-Operative Diagnosis: 1. Diabetic abscess left thumb. 2. Diabetic abscess thenar emininence left palm. 3. Diabetic abscess dorsum left hand at first webspace. 4. Tenosynovitis. 5. Diabetes mellitus. 6. Sepsis. Post-Operative Diagnosis: 1. 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 2. Necrotizing diabetic abscess thenar emininence left palm extending through thenar muscles (abductor pollicis brevis, flexor pollicis brevis, opponens pollicis, and adductor pollicis) and first dorsal interosseous muscle. 3. Necrotizing diabetic abscess dorsum left hand at first webspace extending through first dorsal interosseous muscle and thenar muscles (abductor pollicis brevis, flexor pollicis brevis, opponens pollicis, and adductor pollicis). 4. Suppurative flexor tenosynovitis. 5. Diabetes mellitus. 6. Sepsis. Surgery/Procedure Performed:: 1. Surgical preparation left thumb and thenar eminence and dorsum hand over first webspace with incision and drainage and excisional debridement complex necrotizing diabetic abscesses (33 cm2). 2. Incision and drainage tendon sheath left thumb for suppurative flexor tenosynovitis. 3. Incision and drainage necrotizing diabetic abscess dorsum left thumb involving extensor tendon with tenosynovitis. 4. Incision and drainage necrotizing diabetic abscess thenar eminence left palm extending through thenar muscles (abductor pollicis brevis, flexor pollicis brevis, opponens pollicis, and adductor pollicis) and first dorsal interosseous muscle. 5. Incision and drainage necrotizing diabetic abscess first dorsal webspace left hand extending through first dorsal interosseous muscle and thenar muscles (abductor pollicis brevis, flexor pollicis brevis, opponens pollicis, and adductor pollicis). Description of Surgical Findings:: The patient is a 53 year old M was admitted to hospital with sepsis and uncontrolled diabetes and associated increasing pain and redness and swelling left hand and thumb. Patient is left hand dominant. Patient states he fell a week ago and his symptomatology progressively worsened. He denies fever. Plain Xray of the hand in the ED is normal. WBC was 24.9. Random blood sugar was 624. Lactic acid was 2.9. ESR is 18 and the CRP is 41.9. HgbA1c was 10.5. He was started on Vancomycin and Zosyn. His blood cultures were positive for Staphylococcus aureus. His antibiotics have been changed to Ancef and Cleocin. I was asked to evaluate this patient for surgical options for treatment. Patient was informed of the risks and complications of the procedure including alternatives to surgery. These were discussed with the patient personally. Patient voices understanding and wishes to proceed. Some of the risks and complications that were discussed included but were not inclusive of failure to diagnose including symptom relief, pain, infection, numbness, stiffness, loss of digit, RSD (CRPS), need for further surgery, co ntracture, and wound healing problems. Length of zig zag incisions dorsum left thumb -6 cm. Length of zig zag incisions dorsum left hand at first webspace - 6 cm. Length of zig zag incisions volar left thumb extending onto thenar eminence - 10 cm. Total tourniquet time -55 minutes. 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 Left thumb and hand necrotizing diabetic abscesses to Pathology and Microbiology. 2. MRSA Wound DNA by PCR. Drains: None. Estimated Blood Loss (mL): 20 ml. Description of Procedure: Patient was taken to OR in supine position and was placed under general anesthesia. The left hand and forearm areas were prepped and draped in the usual fashion. SCD's were placed for DVT prophylaxis. Perioperative antibiotics were given intravenously. I elevated the left hand and wrapped a towel around the hand as the tourniquet was inflated to 250 mmHg. I didn't use the Esmarch bandage because of the severity of the infection. I started with incision and drainage around the ulcerated area on the proximal dorsal base of left thumb. Pus was seen. I extended the incision in a zig zag fashion distally on the dorsal aspect of the thumb. Copious pus was seen in the subcutaneous tissue with widespread fat necrosis. Pus extended to the extensor tendon. The tendon appeared inflamed. I pressed on the proximal metacarpal and could not express any pus proximal to the ulcerated area on the proximal base of the thumb. I proceeded with a zig zag incision on the volar flexor surface of thumb. The incision extended from the distal phalanx down to the base of thumb in the palm. Once again, copious pus was seen in the subcutaneous tissue with widespread fat necrosis. When I got to the flexor tendon sheath, it was bulging and tense. Incision was made in the A1 abner and copious pus was expressed from the tendon sheath and it was under pressure. I place an angiocath into the tendon sheath and irrigated the tendon sheath with saline until no more pus was seen and I could only express clear fluid from the tendon sheath. During the elevation of the zig zag flaps, dissection was done in a longitudinal fashion to minimize injury to the digital nerves. It was hard to identify them because of the amount of swelling present and the copious amounts of pus present which made differentiation of tissue planes difficult. Because of a very tense thenar eminence, I extended the zig zag incision into the thenar eminence. Once again copious amounts of pus was present and it was quite diffuse throughout the area. Initially the thenar muscles (abductor pollicis brevis, flexor pollicis brevis, opponens pollicis, and adductor pollicis) appeared white and I was concerned about necrotic nonviable muscle and a necrotizing fasciitis. Widespread fat necrosis was also present. However when I irrigated out the wound copiously with saline, the muscles became pinker and appeared viable. The initial white color of the muscle was due to the diffuse nature of the pus infiltrating the muscle. The whole thenar space was involved as the pus extended dorsally through the adductor pollicis muscle and first dorsal interosseous muscle. A counter incision was made on the dorsum of the prieto nd at the first webspace. Copious pus was seen and extended deep to the previous dissection in the thenar space. Widespread fat necrosis was seen. The infection was so severe with widespread pus, there was a through and through connection between the thenar eminence and the dorsum of the hand. This wound was copiously irrigated with saline. I pressed on the wrist and the carpal tunnel area and no pus could be expressed. I pressed on the hypothenar eminence and the midpalm area and no pus could be expressed. The tourniquet was released after 55 minutes. Hemostasis was obtained with gentle pressure and electrocautery. The tissue that was debrided along with the pus was sent to Pathology for analysis and to Microbiology for culture. A positive culture may necessitate antibiotic modification. Also a MRSA Wound DNA by PCR was done. I then approximated the zig points and the zag points with 4-0 Prolene vertical mattress interrupted sutures. The intervening wounds were packed with Mepitel nonadherent dressing followed by Kerlix gauze and Betadine followed by dry Kerlix gauze and a compression parveen wrap. 2x2 gauze was placed in the web spaces to minimize ulceration. The length of zig zag incisions dorsum left thumb was 6 cm. The length of zig zag incisions dorsum left hand at first webspace was 6 cm. The length of zig zag incisions volar left thumb extending onto thenar eminence was 10 cm. Patient tolerated the procedure well and was sent to PACU in stable condition. Patient will be sent upstairs for continued postop care. Will start Silver dressing changes tomorrow. He will keep his left hand elevated during the postop period. Anticipate the dressing changes will be painful for a while. He should be evaluated for an ECF. Also with the severity and diffuse widespread nature of the pus, he will need 6 weeks of IV antibiotics. Anticipate stiffness of his thumb and hand and will need extensive aggressive OT for range of motion exercises, strengthening, and edema management. Anticipate increased metabolic demands from the infection and the surgical wounds. Will check a Prealbumin and will need nutritional supplementation with protein to help the healing process. Due to the severity of the infection and the diffuse widespread nature of the pus, I will watch him closely during the initial postop period. If improvement is too slow or if his hand worsens, then he would need additional irrigation and drainage and excisional debridement to make sure additional infection is not present. Grafts/Implants Used: None. - Complications None. - Admit VTE Documentation VTE Present on Admission: No VTE Pharm Prophylaxis ordered?: Yes Code Visit Surgery Charges CPT - 18545 ICD-10 - L02.512, M71.042, M65.142, M79.89, E11.9, A41.9 13628 M65.142, L02.512, M71.042, M79.89, E11.9, A41.9 72747 L02.512, M79.89, E11.9, A41.9 46670 M71.042, L02.512, M65.142, M79.89, E11.9, A41.9
--- NOTE | 2019-02-02 18:00 | MRI_ITS ---
STUDY: MRI LUMBAR SPINE WITH AND WITHOUT CONTRAST REASON FOR EXAM: Male, 53 years old. discitis, chronic low back pain; hx of lt hand infection and septic arthritis rt knee TECHNIQUE: Standardized fat and water weighted pulse sequences were obtained in the sagittal and axial planes. 12 IV Dotarem was administered for the contrast portion of the examination. COMPARISON: None FINDINGS: T12-L1: Normal endplates. Normal disc height, hydration and morphology. Normal bilateral facet joints. Normal central canal and bilateral lateral recesses. Normal bilateral intervertebral neural foramina. Normal lumbar lordosis. There is no substantial scoliosis. Normal conus medullaris that terminates at the L1 level. L1-2: Normal endplates. Normal disc height, hydration and morphology. Normal bilateral facet joints. Normal central canal and bilateral lateral recesses. Normal bilateral intervertebral neural foramina. L2-3: Normal endplates. Normal disc height, hydration and morphology. Normal bilateral facet joints. Normal central canal and bilateral lateral recesses. Normal bilateral intervertebral neural foramina. L3-4: Normal endplates. Normal disc height, hydration and morphology. Normal bilateral facet joints. Normal central canal and bilateral lateral recesses. Normal bilateral intervertebral neural foramina. L4-5: Endplate spondylosis. Decreased disc height and small circumferential disc bulge. Degenerative changes of the bilateral facet joints. Moderate narrowing of the central canal and bilateral intervertebral neural foramina. L5-S1: Endplate spondylosis. There is moderate irregularity of the endplates most likely due to degenerative disc disease. Decreased disc height and large circumferential disc bulge. No abnormal enhancement of the disc after contrast administration. Degenerative changes of the bilateral facet joints. Moderate narrowing of the central canal and bilateral intervertebral neural foramina. Normal visualized sacral ala. Normal visualized paraspinous soft tissue structures. MRI/Spine Lumbar W/WO Contrast IMPRESSION: L4-5 and L5-S1 degenerative changes more prominent at L5-S1, as described above. There is no definite discitis or osteomyelitis. A follow-up in 4-8 weeks may be warranted to ensure stability. Electronically Signed: Erik Monk, at 7:27 EDT Tel , Service support ,
[2019-02-02 18:06] LABS: Bedside Glucose 68 mg/dL (70-110)
[2019-02-02 18:42] LABS: M R Staph aureus DNA By PCR Negative (Negative); Probe Check PASS; Staph aureus DNA By PCR POSITIVE (Negative)
[2019-02-02 18:46] LABS: Bedside Glucose 152 mg/dL (70-110)
[2019-02-02] MEDS: HYDROmorphone 1 MG/ML Syringe 0.8 MG IV (20:22)
[2019-02-02 21:26] LABS: Bedside Glucose 120 mg/dL (70-110)
[2019-02-02] MEDS: Cefazolin 2 GM in 0.9% Normal Saline 100 ML IV (21:56)
[2019-02-02] MEDS: Atorvastatin Calcium 40 MG Tablet PO (21:57)
[2019-02-02 23:38] LABS: PROEL- A/G Ratio 0.5 (0.7-1.7); PROEL- Albumin 2.2 g/dL (2.9-4.4); PROEL- Alpha-1 Globulin 0.5 g/dL (0.0-0.4); PROEL- Globulin, Total 4.5 g/dL (2.2-3.9); PROEL- TOTAL PROTEIN 6.7 g/dL (6.0-8.5)
[2019-02-03] VITALS (11 sets, daily range): BP systolic 133–166; BP diastolic 74–107; PULSE 89–133; RESP 18–22; TEMP 36.5–37.9; O2SAT 94–98
[2019-02-03 00:05] LABS: Bedside Glucose 77 mg/dL (70-110)
[2019-02-03] MEDS: HYDROmorphone 1 MG/ML Syringe 0.8 MG IV ×6 (01:46→22:15)
[2019-02-03] MEDS: 0.9% NaCl Peripheral Flush Adult/Peds IV ×7 (01:47→22:16)
[2019-02-03 03:01] LABS: Bedside Glucose 82 mg/dL (70-110)
[2019-02-03 05:26] LABS: Absolute Lymphocyte Count 1.24 X10^3/ul (0.83-4.51); Absolute Neutrophil Count 18.8 X10^3/uL (2.0-7.7); Basophil# 0.03 X10^3/uL; Basophil% 0.1 % (0-1); Eosinophil# 0.02 X10^3/uL; Eosinophils% 0.1 % (0-5); Hematocrit 25.6 % (40-54); Hemoglobin 8.8 g/dl (13.0-16.5); Lymphocyte # 1.24 X10^3/ul (4.0); Lymphocyte % 5.6 % (19-41); Mean Corp Hgb Conc 34.4 g/gl (32-36); Mean Corpuscular Volume 93.1 fL (80-94); Mean Platelet Vol. 9.4 fl (6.2-12.0); Monocyte# 1.73 X10^3/uL; Monocyte% 7.8 % (0-10); Neutrophil # 18.76 X10^3/uL (2.7-7.7); Neutrophil % 85.1 % (47-70); POSITIVE DIFFERENTIAL YES; Platelet Count 329 K/mm3 (150-450); RBC Distribution Width CV 12.1 % (11.6-14.6); RBC Distribution Width SD 39.5 fl (35.1-43.9); Red Blood Count 2.75 M/mm3 (4.6-6.2); White Blood Count 22.1 K/mm3 (4.4-11.0)
[2019-02-03 05:27] LABS: Differential Indicated SCAN CRITERIA MET; POSITIVE COUNT NO; POSITIVE MORPHOLOGY YES
[2019-02-03] MEDS: Cefazolin 2 GM in 0.9% Normal Saline 100 ML IV ×3 (05:49→22:36)
[2019-02-03 06:14] LABS: Anion Gap 4 (5-15); BUN 11 mg/dL (7-18); BUN/Creat Ratio 14.4 RATIO (10-20); Calcium,Total 7.5 mg/dL (8.5-10.1); Chloride 108 mmol/L (98-107); Creatinine, Serum 0.76 mg/dL (0.70-1.30); EST Glomerular Filtration Rate 114 mL/min (>60); Est Glom Filt Rate - Afr Amer 138 mL/min (>60); Estimated Creatinine Clearance 114.82 ml/min; Glucose 142 mg/dL (74-106); Potassium 4.1 mmol/L (3.5-5.1); Prealbumin < 3.0 mg/dL (20.0-40.0); Sodium Level 137 mmol/L (136-145)
[2019-02-03 06:59] LABS: Bacteria 0 SEEN /hpf (None Seen); Mucous, Urine 0 SEEN /hpf (<or=2+)
[2019-02-03 07:00] LABS: Bedside Glucose 169 mg/dL (70-110)
[2019-02-03 07:02] LABS: Color, Urine Yellow (Yellow); Glucose, Dipstick Normal (Normal); Ketone-Dipstick Negative (Negative); Leukocyte Esterase-Dipstick 25 /ul (Negative); Nitrite-Dipstick Negative (Negative); Occult Blood-Urine 10 /ul (Negative); Protein-Dipstick 30 mg/dl (Negative); Specific Gravity, Urine 1.015 (1.002-1.030); Urine Bilirubin Dipstick Negative (Negative); Urine Clarity Clear (Clear); Urine Urobilinogen Normal (Normal)
--- NOTE | 2019-02-03 07:03 | PCM.PN.ORT ---
Patient Problems: Active and Suspected Problems (Last Reviewed 02/01/19 @ 08:28 by Nan Saucedo DO) Sepsis (Acute) Cellulitis (Acute) Dehydration (Acute) Hypokalemia (Acute) MSSA bacteremia (Acute) Knee effusion, right (Acute) Knee pain, right (Acute) Subjective: Patient continues to have right knee pain x-rays were reviewed. He went to surgery last evening for his hand for significant infection. MRI of the lumbar spine was performed. Remains febrile. - Physical Exam General: Alert, Oriented x3, Cooperative Extremities: - - Right knee: Patient has a large effusion. Pain with range of motion but tolerates short arc range of motion. Stable to varus and valgus stress. No open wounds. Moderate warmth. Vital Signs Temp Pulse Resp BP Pulse Ox 100.3 F H 120 H 18 166/95 H 94 02/03/19 02:41 02/03/19 02:41 02/03/19 02:41 02/03/19 02:41 02/03/19 02:41 Oxygen Flow Rate (L/min) 2 Oxygen Delivery Method Room Air Weight: 157 lb 6.561 oz Body Mass Index (BMI) 17.1 Finger Stick Blood Glucose 68 Intake and Output for Last 24 Hours 02/01/19 02/02/19 02/03/19 23:59 23:59 23:59 Intake Total 2175 / 2175 5667.6 / 5667.6 1664 / 1664 Output Total 400 / 400 Balance 1775 / 1775 5667.6 / 5667.6 1664 / 1664 Microbiology Past 72 Hours 02/03/19 03:48 Gram Stain - Preliminary Sputum, Expectorated/Coughed 02/02/19 09:47 Blood Culture - Preliminary Blood Culture (Wb) - Right Forearm 02/02/19 11:15 Gram Stain - Final Fluid - Other 02/01/19 03:50 Blood Culture - Final Blood Culture (Wb) - Anticubital Left Staphylococcus aureus 02/01/19 02:30 Bacteria Detection (PCR) - Final Blood Culture (Wb) - Anticubital Right Staphylococcus aureus Blood Culture - Preliminary Staphylococcus aureus 02/01/19 17:08 Stool Occult Blood (LEONIE) - Final Stool Occult Blood Positive Laboratory Tests Past 24 Hrs 02/02/19 02/02/19 02/02/19 05:00 08:48 08:48 WBC RBC Hgb Hct MCV MCH MCHC RDW RDW Differential Plt Count MPV Immature Gran % (Auto) Neut % (Auto) Lymph % (Auto) [place] % (Auto) Eos % (Auto) Baso % (Auto) Absolute Neuts (auto) Absolute Lymphs (auto) Total Counted Diff Path Review Reviewed Sodium Potassium Chloride Carbon Dioxide Anion Gap BUN Creatinine Estim Creat Clear Calc Est GFR (MDRD) Af Amer Est GFR (MDRD) Non-Af BUN/Creatinine Ratio Glucose Calcium Prealbumin Urine Color Urine Clarity Urine pH Ur Specific [place] Urine Protein Urine Glucose (UA) Urine Ketones Urine Occult Blood Urine Nitrite Urine Bilirubin Urine Urobilinogen Ur Leukocyte Esterase Urine RBC Urine WBC Ur Squamous Epith Cells Urine Bacteria Urine Mucus Fluid Source Fluid Color Fluid Appearance Fluid WBC Fluid RBC Fluid Tot Cell Count Fld Polynuclear WBCs # Fld Polynuclear WBCs % Fluid Mononuclear WBCs Fld Mononuclear WBCs % Fluid Neutrophils Fluid Lymphocytes Fluid Monocytes Fluid Plasma Cells Fluid Macrophages Fld Mesothelial Cells Fluid Other Cells Fluid Crystals Fluid Crystal Source Fl Crystal Path Review Fl Pathologist Comment Fluid Comment 2 Synovial Source Synovial Color Synovial Appearance Synovial WBC Synovial RBC Synovial Tot Cell Ct Synov Polynuclear WBCs Synovial Neutrophils Synovial Lymphocytes Synovial Polynuclear % Synovial Mononuclear % Synovial Path Comment Urine Amphetamine U Amphetamines Confirm Urine Cocaine Confirm U Cocaine Metab Screen U Benzoylecgonine GC/MS Urine Ethyl Alcohol Hepatitis A IgM Ab Pending Hepatitis A Ab Total Pending Hep Bs Antigen Pending Hep B Core Total Ab Pending Hep B Core IgM Ab Pending HCV RNA Quant (PCR) HIV 1&2 Antibody Non-Reactive S.aureus Protein A PCR MRSA (PCR) 02/02/19 02/02/19 02/03/19 11:15 16:38 05:05 WBC RBC Hgb Hct MCV MCH MCHC RDW RDW Differential Plt Count MPV Immature Gran % (Auto) Neut % (Auto) Lymph % (Auto) [place] % (Auto) Eos % (Auto) Baso % (Auto) Absolute Neuts (auto) Absolute Lymphs (auto) Total Counted Diff Path Review Sodium Potassium Chloride Carbon Dioxide Anion Gap BUN Creatinine Estim Creat Clear Calc Est GFR (MDRD) Af Amer Est GFR (MDRD) Non-Af BUN/Creatinine Ratio Glucose Calcium Prealbumin Urine Color Urine Clarity Urine pH Ur Specific [place] Urine Protein Urine Glucose (UA) Urine Ketones Urine Occult Blood Urine Nitrite Urine Bilirubin Urine Urobilinogen Ur Leukocyte Esterase Urine RBC Urine WBC Ur Squamous Epith Cells Urine Bacteria Urine Mucus Fluid Source Cancelled Fluid Color Cancelled Fluid Appearance Cancelled Fluid WBC Cancelled Fluid RBC Cancelled Fluid Tot Cell Count Cancelled Fld Polynuclear WBCs # Cancelled Fld Polynuclear WBCs % Cancelled Fluid Mononuclear WBCs Cancelled Fld Mononuclear WBCs % Cancelled Fluid Neutrophils Cancelled Fluid Lymphocytes Cancelled Fluid Monocytes Cancelled Fluid Plasma Cells Cancelled Fluid Macrophages Cancelled Fld Mesothelial Cells Cancelled Fluid Other Cells Cancelled Fluid Crystals SEE PATH REV Fluid Crystal Source SYNOVIAL Fl Crystal Path Review Reviewed Fl Pathologist Comment Cancelled Fluid Comment 2 Cancelled Synovial Source RIGHT KNEE Synovial Color Straw Synovial Appearance Sl Cl Synovial WBC 0.7030 H Synovial RBC 2 H Synovial Tot Cell Ct 0.7210 H Synov Polynuclear WBCs 0.613 Synovial Neutrophils 88 H Synovial Lymphocytes 12 Synovial Polynuclear % 87.2 Synovial Mononuclear % 12.[address] Comment May follow Urine Amphetamine U Amphetamines Confirm Urine Cocaine Confirm U Cocaine Metab Screen U Benzoylecgonine GC/MS Urine Ethyl Alcohol Hepatitis A IgM Ab Hepatitis A Ab Total Hep Bs Antigen Hep B Core Total Ab Hep B Core IgM Ab HCV RNA Quant (PCR) Pending HIV 1&2 Antibody S.aureus Protein A PCR POSITIVE H MRSA (PCR) Negative 02/03/19 02/03/19 02/03/19 05:05 05:05 06:50 WBC 22.1 H RBC 2.75 L Hgb 8.8 L Hct 25.6 L MCV 93.1 MCH 32.0 MCHC 34.4 RDW 12.1 RDW Differential 39.5 Plt Count 329 MPV 9.4 Immature Gran % (Auto) 1.300 H Neut % (Auto) 85.1 H Lymph % (Auto) 5.6 L [place] % (Auto) 7.8 Eos % (Auto) 0.1 Baso % (Auto) 0.1 Absolute Neuts (auto) 18.8 H Absolute Lymphs (auto) 1.24 Total Counted Not Reportable Diff Path Review Sodium 137 Potassium 4.1 Chloride 108 H Carbon Dioxide 25.0 Anion Gap 4 L BUN 11 Creatinine 0.76 Estim Creat Clear Calc 114.82 Est GFR (MDRD) Af Amer 138 Est GFR (MDRD) Non-Af 114 BUN/Creatinine Ratio 14.4 Glucose 142 H Calcium 7.5 L Prealbumin < 3.0 L Urine Color Urine Clarity Urine pH Ur Specific [place] Urine Protein Urine Glucose (UA) Urine Ketones Urine Occult Blood Urine Nitrite Urine Bilirubin Urine Urobilinogen Ur Leukocyte Esterase Urine RBC Urine WBC Ur Squamous Epith Cells Urine Bacteria Urine Mucus Fluid Source Fluid Color Fluid Appearance Fluid WBC Fluid RBC Fluid Tot Cell Count Fld Polynuclear WBCs # Fld Polynuclear WBCs % Fluid Mononuclear WBCs Fld Mononuclear WBCs % Fluid Neutrophils Fluid Lymphocytes Fluid Monocytes Fluid Plasma Cells Fluid Macrophages Fld Mesothelial Cells Fluid Other Cells Fluid Crystals Fluid Crystal Source Fl Crystal Path Review Fl Pathologist Comment Fluid Comment 2 Synovial Source Synovial Color Synovial Appearance Synovial WBC Synovial RBC Synovial Tot Cell Ct Synov Polynuclear WBCs Synovial Neutrophils Synovial Lymphocytes Synovial Polynuclear % Synovial Mononuclear % Synovial Path Comment Urine Amphetamine Pending U Amphetamines Confirm Pending Urine Cocaine Confirm Pending U Cocaine Metab Screen Pending U Benzoylecgonine GC/MS Pending Urine Ethyl Alcohol Pending Hepatitis A IgM Ab Hepatitis A Ab Total Hep Bs Antigen Hep B Core Total Ab Hep B Core IgM Ab HCV RNA Quant (PCR) HIV 1&2 Antibody S.aureus Protein A PCR MRSA (PCR) 02/03/19 06:50 WBC RBC Hgb Hct MCV MCH MCHC RDW RDW Differential Plt Count MPV Immature Gran % (Auto) Neut % (Auto) Lymph % (Auto) [place] % (Auto) Eos % (Auto) Baso % (Auto) Absolute Neuts (auto) Absolute Lymphs (auto) Total Counted Diff Path Review Sodium Potassium Chloride Carbon Dioxide Anion Gap BUN Creatinine Estim Creat Clear Calc Est GFR (MDRD) Af Amer Est GFR (MDRD) Non-Af BUN/Creatinine Ratio Glucose Calcium Prealbumin Urine Color Yellow Urine Clarity Clear Urine pH 6.0 Ur Specific [place] 1.015 Urine Protein 30 H Urine Glucose (UA) Normal Urine Ketones Negative Urine Occult Blood 10 H Urine Nitrite Negative Urine Bilirubin Negative Urine Urobilinogen Normal Ur Leukocyte Esterase 25 H Urine RBC Pending Urine WBC Pending Ur Squamous Epith Cells Pending Urine Bacteria Pending Urine Mucus Pending Fluid Source Fluid Color Fluid Appearance Fluid WBC Fluid RBC Fluid Tot Cell Count Fld Polynuclear WBCs # Fld Polynuclear WBCs % Fluid Mononuclear WBCs Fld Mononuclear WBCs % Fluid Neutrophils Fluid Lymphocytes Fluid Monocytes Fluid Plasma Cells Fluid Macrophages Fld Mesothelial Cells Fluid Other Cells Fluid Crystals Fluid Crystal Source Fl Crystal Path Review Fl Pathologist Comment Fluid Comment 2 Synovial Source Synovial Color Synovial Appearance Synovial WBC Synovial RBC Synovial Tot Cell Ct Synov Polynuclear WBCs Synovial Neutrophils Synovial Lymphocytes Synovial Polynuclear % Synovial Mononuclear % Synovial Path Comment Urine Amphetamine U Amphetamines Confirm Urine Cocaine Confirm U Cocaine Metab Screen U Benzoylecgonine GC/MS Urine Ethyl Alcohol Hepatitis A IgM Ab Hepatitis A Ab Total Hep Bs Antigen Hep B Core Total Ab Hep B Core IgM Ab HCV RNA Quant (PCR) HIV 1&2 Antibody S.aureus Protein A PCR MRSA (PCR) POC Glucose 02/03/19 02/03/19 02/02/19 06:53 02:53 22:01 POC Glucose 169 H 82 77 02/02/19 02/02/19 02/02/19 19:14 18:39 17:59 POC Glucose 120 H 152 H 68 L 02/02/19 02/02/19 11:25 09:29 POC Glucose 234 H 266 H Medical Necessity - Tobacco Use Smoking Status: Former smoker Tobacco Use: Non-smoker Assessment/Plan All Active Problems (Last Reviewed 02/01/19 @ 08:28 by Nan Saucedo DO) Sepsis (Acute) Cellulitis (Acute) Dehydration (Acute) Hypokalemia (Acute) MSSA bacteremia (Acute) Knee effusion, right (Acute) Knee pain, right (Acute) Acute pancreatitis (Resolved) Gastroenteritis (Resolved) Right knee effusion. X-rays are consistent with mild arthrosis. No acute fractures. Likely based on aspiration results reactive effusion. Will follow cultures. Continue to follow clinically and please call orthopedics if further questions arise. At this time of advised the patient for outpatient follow-up. If he continues to have knee pain and effusion once his infections are cleared up he may be a candidate for injection therapies. At this time I would recommend appropriate Tylenol use of Tylenol and anti-inflammatories with selective use of narcotics only as needed for right knee pain control [facility] Office:
[2019-02-03 07:08] LABS: White Blood Cells 10-25 SEEN /hpf (0-5)
[2019-02-03 07:09] LABS: Red Blood Cells-Urine 0-5 SEEN /hpf (0-5); Squamous Epithelial Cells - UA 0-5 SEEN /hpf (0-5)
--- NOTE | 2019-02-03 07:29 | PCM.PN.PUL ---
Patient Problems: Active and Suspected Problems (Last Reviewed 02/01/19 @ 08:28 by Nan Saucedo DO) Sepsis (Acute) Cellulitis (Acute) Dehydration (Acute) Hypokalemia (Acute) MSSA bacteremia (Acute) Knee effusion, right (Acute) Knee pain, right (Acute) Subjective: The patient was seen and examined at the bedside this morning. Events from the last 24 hours have been reviewed. The patient has been persistently febrile overnight with a T-max of 38.6 ?C. He remains tachycardic and hypertensive. He is, nevertheless, maintaining appropriate oxygen saturations on room air. The patient was taken to the OR last evening by surgery to undergo incision and drainage along with excisional debridement of the patient's necrotizing diabetic hand abscess. The patient is currently sitting in his bedside recliner. He does report the presence of both right knee pain and left hand pain. He also reports experiencing an intermittently productive cough. He denies the presence of resting shortness of breath. Objective: The patient's most recent lab work, culture data and imaging studies have all been personally reviewed. Blood cultures dated February 01 are positive for staph aureus. CT abdomen/pelvis revealed trace fluid in the gallbladder fossa and posterior to the pancreas of questionable significance. The patient was also incidentally noted to have a cavitary lesion in the left lower lobe along with a vague nodular density in the lingula. Additionally, there was note of a right mid kidney cortical lesion which could represent a complex cyst versus early neoplasm. CT chest,obtained on February 02, revealed multiple bilateral cavitary pulmonary lesions, which appeared more peripherally based. Surface echocardiogram revealed normal LV size and thickness with an ejection fraction of 75%. L-spine MRI revealed degenerative changes without definitive evidence of discitis or osteomyelitis. - Physical Exam General: Alert, Cooperative, No apparent distress HEENT: Atraumatic, PERRLA, Normocephalic Oral: Moist Mucosa Neck: Supple, No Nodes, Trachea Midline Lungs: Normal air movement, No rhonchi, No wheeze, No rales Cardiovascular: Normal S1, Normal S2, Murmur, Tachycardic Abdomen: Bowel Sounds Present, Soft, Non Tender Extremities: No clubbing, No cyanosis, - - Right knee effusion and tenderness Skin: - - Left hand is currently wrapped Musculoskeletal: Cachexia, Muscle Wasting Neurological: Cranial nerves II-XII grossly intact, Neuro grossly intact Psych/Mental Status: Normal Affect, Appropriate Vital Signs Temp Pulse Resp BP Pulse Ox 37.9 C H 120 H 18 166/95 H 94 02/03/19 02:41 02/03/19 02:41 02/03/19 02:41 02/03/19 02:41 02/03/19 02:41 Oxygen Flow Rate (L/min) 2 Oxygen Delivery Method Room Air Weight: 157 lb 6.561 oz Body Mass Index (BMI) 17.1 Finger Stick Blood Glucose 68 Intake and Output for Last 24 Hours 02/01/19 02/02/19 02/03/19 23:59 23:59 23:59 Intake Total 2175 / 2175 5667.6 / 5667.6 1664 / 1664 Output Total 400 / 400 Balance 1775 / 1775 5667.6 / 5667.6 1664 / 1664 Microbiology Past 72 Hours 02/03/19 03:48 Gram Stain - Preliminary Sputum, Expectorated/Coughed 02/02/19 09:47 Blood Culture - Preliminary Blood Culture (Wb) - Right Forearm 02/02/19 11:15 Gram Stain - Final Fluid - Other 02/01/19 03:50 Blood Culture - Final Blood Culture (Wb) - Anticubital Left Staphylococcus aureus 02/01/19 02:30 Bacteria Detection (PCR) - Final Blood Culture (Wb) - Anticubital Right Staphylococcus aureus Blood Culture - Preliminary Staphylococcus aureus 02/01/19 17:08 Stool Occult Blood (LEONIE) - Final Stool Occult Blood Positive Laboratory Tests Past 24 Hrs 02/02/19 02/02/19 02/02/19 05:00 08:48 08:48 WBC RBC Hgb Hct MCV MCH MCHC RDW RDW Differential Plt Count MPV Immature Gran % (Auto) Neut % (Auto) Lymph % (Auto) [place] % (Auto) Eos % (Auto) Baso % (Auto) Absolute Neuts (auto) Absolute Lymphs (auto) Total Counted Diff Path Review Reviewed Sodium Potassium Chloride Carbon Dioxide Anion Gap BUN Creatinine Estim Creat Clear Calc Est GFR (MDRD) Af Amer Est GFR (MDRD) Non-Af BUN/Creatinine Ratio Glucose Calcium Prealbumin Urine Color Urine Clarity Urine pH Ur Specific [place] Urine Protein Urine Glucose (UA) Urine Ketones Urine Occult Blood Urine Nitrite Urine Bilirubin Urine Urobilinogen Ur Leukocyte Esterase Urine RBC Urine WBC Ur Squamous Epith Cells Urine Bacteria Urine Mucus Fluid Source Fluid Color Fluid Appearance Fluid WBC Fluid RBC Fluid Tot Cell Count Fld Polynuclear WBCs # Fld Polynuclear WBCs % Fluid Mononuclear WBCs Fld Mononuclear WBCs % Fluid Neutrophils Fluid Lymphocytes Fluid Monocytes Fluid Plasma Cells Fluid Macrophages Fld Mesothelial Cells Fluid Other Cells Fluid Crystals Fluid Crystal Source Fl Crystal Path Review Fl Pathologist Comment Fluid Comment 2 Synovial Source Synovial Color Synovial Appearance Synovial WBC Synovial RBC Synovial Tot Cell Ct Synov Polynuclear WBCs Synovial Neutrophils Synovial Lymphocytes Synovial Polynuclear % Synovial Mononuclear % Synovial Path Comment Urine Amphetamine U Amphetamines Confirm Urine Cocaine Confirm U Cocaine Metab Screen U Benzoylecgonine GC/MS Urine Ethyl Alcohol Hepatitis A IgM Ab Pending Hepatitis A Ab Total Pending Hep Bs Antigen Pending Hep B Core Total Ab Pending Hep B Core IgM Ab Pending HCV RNA Quant (PCR) HIV 1&2 Antibody Non-Reactive S.aureus Protein A PCR MRSA (PCR) 02/02/19 02/02/19 02/03/19 11:15 16:38 05:05 WBC RBC Hgb Hct MCV MCH MCHC RDW RDW Differential Plt Count MPV Immature Gran % (Auto) Neut % (Auto) Lymph % (Auto) [place] % (Auto) Eos % (Auto) Baso % (Auto) Absolute Neuts (auto) Absolute Lymphs (auto) Total Counted Diff Path Review Sodium Potassium Chloride Carbon Dioxide Anion Gap BUN Creatinine Estim Creat Clear Calc Est GFR (MDRD) Af Amer Est GFR (MDRD) Non-Af BUN/Creatinine Ratio Glucose Calcium Prealbumin Urine Color Urine Clarity Urine pH Ur Specific [place] Urine Protein Urine Glucose (UA) Urine Ketones Urine Occult Blood Urine Nitrite Urine Bilirubin Urine Urobilinogen Ur Leukocyte Esterase Urine RBC Urine WBC Ur Squamous Epith Cells Urine Bacteria Urine Mucus Fluid Source Cancelled Fluid Color Cancelled Fluid Appearance Cancelled Fluid WBC Cancelled Fluid RBC Cancelled Fluid Tot Cell Count Cancelled Fld Polynuclear WBCs # Cancelled Fld Polynuclear WBCs % Cancelled Fluid Mononuclear WBCs Cancelled Fld Mononuclear WBCs % Cancelled Fluid Neutrophils Cancelled Fluid Lymphocytes Cancelled Fluid Monocytes Cancelled Fluid Plasma Cells Cancelled Fluid Macrophages Cancelled Fld Mesothelial Cells Cancelled Fluid Other Cells Cancelled Fluid Crystals SEE PATH REV Fluid Crystal Source SYNOVIAL Fl Crystal Path Review Reviewed Fl Pathologist Comment Cancelled Fluid Comment 2 Cancelled Synovial Source RIGHT KNEE Synovial Color Straw Synovial Appearance Sl Cl Synovial WBC 0.7030 H Synovial RBC 2 H Synovial Tot Cell Ct 0.7210 H Synov Polynuclear WBCs 0.613 Synovial Neutrophils 88 H Synovial Lymphocytes 12 Synovial Polynuclear % 87.2 Synovial Mononuclear % 12.[address] Comment May follow Urine Amphetamine U Amphetamines Confirm Urine Cocaine Confirm U Cocaine Metab Screen U Benzoylecgonine GC/MS Urine Ethyl Alcohol Hepatitis A IgM Ab Hepatitis A Ab Total Hep Bs Antigen Hep B Core Total Ab Hep B Core IgM Ab HCV RNA Quant (PCR) Pending HIV 1&2 Antibody S.aureus Protein A PCR POSITIVE H MRSA (PCR) Negative 02/03/19 02/03/19 02/03/19 05:05 05:05 06:50 WBC 22.1 H RBC 2.75 L Hgb 8.8 L Hct 25.6 L MCV 93.1 MCH 32.0 MCHC 34.4 RDW 12.1 RDW Differential 39.5 Plt Count 329 MPV 9.4 Immature Gran % (Auto) 1.300 H Neut % (Auto) 85.1 H Lymph % (Auto) 5.6 L [place] % (Auto) 7.8 Eos % (Auto) 0.1 Baso % (Auto) 0.1 Absolute Neuts (auto) 18.8 H Absolute Lymphs (auto) 1.24 Total Counted Not Reportable Diff Path Review Sodium 137 Potassium 4.1 Chloride 108 H Carbon Dioxide 25.0 Anion Gap 4 L BUN 11 Creatinine 0.76 Estim Creat Clear Calc 114.82 Est GFR (MDRD) Af Amer 138 Est GFR (MDRD) Non-Af 114 BUN/Creatinine Ratio 14.4 Glucose 142 H Calcium 7.5 L Prealbumin < 3.0 L Urine Color Urine Clarity Urine pH Ur Specific [place] Urine Protein Urine Glucose (UA) Urine Ketones Urine Occult Blood Urine Nitrite Urine Bilirubin Urine Urobilinogen Ur Leukocyte Esterase Urine RBC Urine WBC Ur Squamous Epith Cells Urine Bacteria Urine Mucus Fluid Source Fluid Color Fluid Appearance Fluid WBC Fluid RBC Fluid Tot Cell Count Fld Polynuclear WBCs # Fld Polynuclear WBCs % Fluid Mononuclear WBCs Fld Mononuclear WBCs % Fluid Neutrophils Fluid Lymphocytes Fluid Monocytes Fluid Plasma Cells Fluid Macrophages Fld Mesothelial Cells Fluid Other Cells Fluid Crystals Fluid Crystal Source Fl Crystal Path Review Fl Pathologist Comment Fluid Comment 2 Synovial Source Synovial Color Synovial Appearance Synovial WBC Synovial RBC Synovial Tot Cell Ct Synov Polynuclear WBCs Synovial Neutrophils Synovial Lymphocytes Synovial Polynuclear % Synovial Mononuclear % Synovial Path Comment Urine Amphetamine Pending U Amphetamines Confirm Pending Urine Cocaine Confirm Pending U Cocaine Metab Screen Pending U Benzoylecgonine GC/MS Pending Urine Ethyl Alcohol Pending Hepatitis A IgM Ab Hepatitis A Ab Total Hep Bs Antigen Hep B Core Total Ab Hep B Core IgM Ab HCV RNA Quant (PCR) HIV 1&2 Antibody S.aureus Protein A PCR MRSA (PCR) 02/03/19 06:50 WBC RBC Hgb Hct MCV MCH MCHC RDW RDW Differential Plt Count MPV Immature Gran % (Auto) Neut % (Auto) Lymph % (Auto) [place] % (Auto) Eos % (Auto) Baso % (Auto) Absolute Neuts (auto) Absolute Lymphs (auto) Total Counted Diff Path Review Sodium Potassium Chloride Carbon Dioxide Anion Gap BUN Creatinine Estim Creat Clear Calc Est GFR (MDRD) Af Amer Est GFR (MDRD) Non-Af BUN/Creatinine Ratio Glucose Calcium Prealbumin Urine Color Yellow Urine Clarity Clear Urine pH 6.0 Ur Specific [place] 1.015 Urine Protein 30 H Urine Glucose (UA) Normal Urine Ketones Negative Urine Occult Blood 10 H Urine Nitrite Negative Urine Bilirubin Negative Urine Urobilinogen Normal Ur Leukocyte Esterase 25 H Urine RBC 0-5 SEEN Urine WBC 10-25 SEEN Ur Squamous Epith Cells 0-5 SEEN Urine Bacteria 0 SEEN Urine Mucus 0 SEEN Fluid Source Fluid Color Fluid Appearance Fluid WBC Fluid RBC Fluid Tot Cell Count Fld Polynuclear WBCs # Fld Polynuclear WBCs % Fluid Mononuclear WBCs Fld Mononuclear WBCs % Fluid Neutrophils Fluid Lymphocytes Fluid Monocytes Fluid Plasma Cells Fluid Macrophages Fld Mesothelial Cells Fluid Other Cells Fluid Crystals Fluid Crystal Source Fl Crystal Path Review Fl Pathologist Comment Fluid Comment 2 Synovial Source Synovial Color Synovial Appearance Synovial WBC Synovial RBC Synovial Tot Cell Ct Synov Polynuclear WBCs Synovial Neutrophils Synovial Lymphocytes Synovial Polynuclear % Synovial Mononuclear % Synovial Path Comment Urine Amphetamine U Amphetamines Confirm Urine Cocaine Confirm U Cocaine Metab Screen U Benzoylecgonine GC/MS Urine Ethyl Alcohol Hepatitis A IgM Ab Hepatitis A Ab Total Hep Bs Antigen Hep B Core Total Ab Hep B Core IgM Ab HCV RNA Quant (PCR) HIV 1&2 Antibody S.aureus Protein A PCR MRSA (PCR) POC Glucose 02/03/19 02/03/19 02/02/19 06:53 02:53 22:01 POC Glucose 169 H 82 77 02/02/19 02/02/19 02/02/19 19:14 18:39 17:59 POC Glucose 120 H 152 H 68 L 02/02/19 02/02/19 11:25 09:29 POC Glucose 234 H 266 H Clinical Impression(s) from Imaging Studies Abdomen/Pelvis CT 02/01/19 02:35 IMPRESSION: Indeterminate lingula and left lower lobe parenchymal changes may represent an inflammatory/infectious process, peripheral infarct cannot be on limited examination. These are likely new findings since previous examination allowing for changing technique. Consider CT examination chest for further detail. Trace fluid in the gallbladder fossa and posterior to the pancreas and superior retroperitoneum unchanged since 10/2018 of questionable significance. There is an indeterminant cortical lesion in the right mid kidney which was not present on previous examination and does not represent a simple cyst. Further assessment is recommended to exclude complex cyst versus early neoplasm. Other nonacute findings as outlined above. Electronically Signed: Carolyn Gamez MD at 5:34 EDT , Service support , Hand X-Ray 02/01/19 03:10 IMPRESSION: There is no acute displaced fracture or dislocation. Electronically Signed: Carolyn Gamez MD at 3:23 EDT , Service support , Chest X-Ray 02/01/19 05:40 IMPRESSION: No acute cardiopulmonary disease. No significant interval change. Electronically Signed: Carolyn Gamez MD at 6:29 EDT , Service support , Chest CT 02/02/19 08:07 IMPRESSION: There multiple bilateral cavitating pulmonary masses. Largest is in the RIGHT upper lung measuring 17 mm. These could be necrotic metastases or septic emboli. There is NO pleural effusion or pneumothorax. Normal heart and pericardium. There is LEFT axillary lymphadenopathy. Electronically Signed: David Wright MD at 6:14 EDT , Service support , Upper Extremity CT 02/02/19 09:54 IMPRESSION: Diffuse soft tissue cellulitis in the region of the thenar space with evidence of air bubbles along the dorsal aspect as well as possible abscess collection along the volar aspect of the thenar space. No radiopaque foreign body is seen. Electronically Signed: Nicolás Shafferwilfrido, at 12:40 EDT , Service support , Knee X-Ray 02/02/19 10:00 IMPRESSION: 1. Small knee joint effusion 2. Mild patellofemoral compartment degenerative change. Electronically Signed: Rodolfo Veliz MD at 3:05 EDT Tel , Service support , Lumbar Spine MRI 02/02/19 18:00 IMPRESSION: L4-5 and L5-S1 degenerative changes more prominent at L5-S1, as described above. There is no definite discitis or osteomyelitis. A follow-up in 4-8 weeks may be warranted to ensure stability. Electronically Signed: Erik Monk, at 7:27 EDT Tel , Service support , Medical Necessity - Tobacco Use Smoking Status: Former smoker Tobacco Use: Non-smoker Assessment/Plan All Active Problems (Last Reviewed 02/01/19 @ 08:28 by Nan Saucedo DO) Sepsis (Acute) Cellulitis (Acute) Dehydration (Acute) Hypokalemia (Acute) MSSA bacteremia (Acute) Knee effusion, right (Acute) Knee pain, right (Acute) Acute pancreatitis (Resolved) Gastroenteritis (Resolved) RECOMMENDATIONS: 1. Continue antimicrobial coverage per infectious diseases recommendations. 2. Obtain repeat blood cultures. 3. Pain control per hospitalist. 4. Encourage incentive spirometer use while in bed. 5. Consider endoscopy once medically stable. IMPRESSIONS: 1. Severe sepsis secondary to staph bacteremia due to complex necrotizing diabetic hand abscess The patient presented with left hand swelling and erythema and is now POD #1 s/p excisional debridement. Blood cultures were noted to be positive for MSSA. Infectious diseases is currently following to assist with antimicrobial management. Recommend sending repeat blood cultures today. Surface echocardiogram did not reveal evidence of valvular vegetations. The patient's right knee effusion was also tapped by orthopedics, who felt the fluid collection was reactive in nature. 2. Abnormal chest CT with bilateral cavitary lung lesions The patient's CT chest was personally reviewed. The imaging findings seem most consistent with septic emboli in the setting of #1. I have a low clinical index of suspicion for underlying pulmonary TB. Continue antibiotics and supportive measures as noted above. Encourage incentive spirometer use while in bed. 3. Unintentional weight loss Concern for some form of occult underlying malignancy, especially in light of occult positive stools. Surgery to consider endoscopy once medically stabilized. SPEP/UPEP currently pending. 4. Personal history of HCV Hepatitis C PCR currently pending. This note was generated with [employer] dictation software. It may contain incorrect words, spelling, and punctuation that were not noted in checking the note before signing. Code Visit Inpatient E&M: 92583 Subs Hosp L3
--- NOTE | 2019-02-03 07:34 | PN_ITS ---
Patient Problems: Active and Suspected Problems (Last Reviewed 02/01/19 @ 08:28 by Nan Saucedo DO) Sepsis (Acute) Cellulitis (Acute) Dehydration (Acute) Hypokalemia (Acute) MSSA bacteremia (Acute) Knee effusion, right (Acute) Knee pain, right (Acute) Subjective: The patient was seen and examined at the bedside this morning. Events from the last 24 hours have been reviewed. The patient has been persistently febrile overnight with a T-max of 38.6 ?C. He remains tachycardic and hypertensive. He is, nevertheless, maintaining appropriate oxygen saturations on room air. The patient was taken to the OR last evening by surgery to undergo incision and drainage along with excisional debridement of the patient's necrotizing diabetic hand abscess. The patient is currently sitting in his bedside recliner. He does report the presence of both right knee pain and left hand pain. He also reports experiencing an intermittently productive cough. He denies the presence of resting shortness of breath. Objective: The patient's most recent lab work, culture data and imaging studies have all be en personally reviewed. Blood cultures dated February 01 are positive for staph aureus. CT abdomen/pelvis revealed trace fluid in the gallbladder fossa and posterior to the pancreas of questionable significance. The patient was also incidentally noted to have a cavitary lesion in the left lower lobe along with a vague nodular density in the lingula. Additionally, there was note of a right mid kidney cortical lesion which could represent a complex cyst versus early neoplasm. CT chest,obtained on February 02, revealed multiple bilateral cavitary pulmonary lesions, which appeared more peripherally based. Surface echocardiogram revealed normal LV size and thickness with an ejection fraction of 75%. L-spine MRI revealed degenerative changes without definitive evidence of discitis or osteomyelitis. - Physical Exam General: Alert, Cooperative, No apparent distress HEENT: Atraumatic, PERRLA, Normocephalic Oral: Moist Mucosa Neck: Supple, No Nodes, Trachea Midline Lungs: Normal air movement, No rhonchi, No wheeze, No rales Cardiovascular: Normal S1, Normal S2, Murmur, Tachycardic Abdomen: Bowel Sounds Present, Soft, Non Tender Extremities: No clubbing, No cyanosis, - - Right knee effusion and tenderness Skin: - - Left hand is currently wrapped Musculoskeletal: Cachexia, Muscle Wasting Neurological: Cranial nerves II-XII grossly intact, Neuro grossly intact Psych/Mental Status: Normal Affect, Appropriate Vital Signs Temp Pulse Resp BP Pulse Ox 37.9 C H 120 H 18 166/95 H 94 02/03/19 02:41 02/03/19 02:41 02/03/19 02:41 02/03/19 02:41 02/03/19 02:41 Oxygen Flow Rate (L/min) 2 Oxygen Delivery Method Room Air Weight: 157 lb 6.561 oz Body Mass Index (BMI) 17.1 Finger Stick Blood Glucose 68 Intake and Output for Last 24 Hours 02/01/19 02/02/19 02/03/19 23:59 23:59 23:59 Intake Total 2175 / 2175 5667.6 / 5667.6 1664 / 1664 Output Total 400 / 400 Balance 1775 / 1775 5667.6 / 5667.6 1664 / 1664 Microbiology Past 72 Hours 02/03/19 03:48 Gram Stain - Preliminary Sputum, Expectorated/Coughed 02/02/19 09:47 Blood Culture - Preliminary Blood Culture (Wb) - Right Forearm 02/02/19 11:15 Gram Stain - Final Fluid - Other 02/01/19 03:50 Blood Culture - Final Blood Culture (Wb) - Anticubital Left Staphylococcus aureus 02/01/19 02:30 Bacteria Detection (PCR) - Final Blood Culture (Wb) - Anticubital Right Staphylococcus aureus Blood Culture - Preliminary Staphylococcus aureus 02/01/19 17:08 Stool Occult Blood (LEONIE) - Final Stool Occult Blood Positive Laboratory Tests Past 24 Hrs 02/02/19 02/02/19 02/02/19 05:00 08:48 08:48 WBC RBC Hgb Hct MCV MCH MCHC RDW RDW Differential Plt Count MPV Immature Gran % (Auto) Neut % (Auto) Lymph % (Auto) Price % (Auto) Eos % (Auto) Baso % (Auto) Absolute Neuts (auto) Absolute Lymphs (auto) Total Counted Diff Path Review Reviewed Sodium Potassium Chloride Carbon Dioxide Anion Gap BUN Creatinine Estim Creat Clear Calc Est GFR (MDRD) Af Amer Est GFR (MDRD) Non-Af BUN/Creatinine Ratio Glucose Calcium Prealbumin Urine Color Urine Clarity Urine pH Ur Specific Fence Urine Protein Urine Glucose (UA) Urine Ketones Urine Occult Blood Urine Nitrite Urine Bilirubin Urine Urobilinogen Ur Leukocyte Esterase Urine RBC Urine WBC Ur Squamous Epith Cells Urine Bacteria Urine Mucus Fluid Source Fluid Color Fluid Appearance Fluid WBC Fluid RBC Fluid Tot Cell Count Fld Polynuclear WBCs # Fld Polynuclear WBCs % Fluid Mononuclear WBCs Fld Mononuclear WBCs % Fluid Neutrophils Fluid Lymphocytes Fluid Monocytes Fluid Plasma Cells Fluid Macrophages Fld Mesothelial Cells Fluid Other Cells Fluid Crystals Fluid Crystal Source Fl Crystal Path Review Fl Pathologist Comment Fluid Comment 2 Synovial Source Synovial Color Synovial Appearance Synovial WBC Synovial RBC Synovial Tot Cell Ct Synov Polynuclear WBCs Synovial Neutrophils Synovial Lymphocytes Synovial Polynuclear % Synovial Mononuclear % Synovial Path Comment Urine Amphetamine U Amphetamines Confirm Urine Cocaine Confirm U Cocaine Metab Screen U Benzoylecgonine GC/MS Urine Ethyl Alcohol Hepatitis A IgM Ab Pending Hepatitis A Ab Total Pending Hep Bs Antigen Pending Hep B Core Total Ab Pending Hep B Core IgM Ab Pending HCV RNA Quant (PCR) HIV 1&2 Antibody Non-Reactive S.aureus Protein A PCR MRSA (PCR) 02/02/19 02/02/19 02/03/19 11:15 16:38 05:05 WBC RBC Hgb Hct MCV MCH MCHC RDW RDW Differential Plt Count MPV Immature Gran % (Auto) Neut % (Auto) Lymph % (Auto) Price % (Auto) Eos % (Auto) Baso % (Auto) Absolute Neuts (auto) Absolute Lymphs (auto) Total Counted Diff Path Review Sodium Potassium Chloride Carbon Dioxide Anion Gap BUN Creatinine Estim Creat Clear Calc Est GFR (MDRD) Af Amer Est GFR (MDRD) Non-Af BUN/Creatinine Ratio Glucose Calcium Prealbumin Urine Color Urine Clarity Urine pH Ur Specific Fence Urine Protein Urine Glucose (UA) Urine Ketones Urine Occult Blood Urine Nitrite Urine Bilirubin Urine Urobilinogen Ur Leukocyte Esterase Urine RBC Urine WBC Ur Squamous Epith Cells Urine Bacteria Urine Mucus Fluid Source Cancelled Fluid Color Cancelled Fluid Appearance Cancelled Fluid WBC Cancelled Fluid RBC Cancelled Fluid Tot Cell Count Cancelled Fld Polynuclear WBCs # Cancelled Fld Polynuclear WBCs % Cancelled Fluid Mononuclear WBCs Cancelled Fld Mononuclear WBCs % Cancelled Fluid Neutrophils Cancelled Fluid Lymphocytes Cancelled Fluid Monocytes Cancelled Fluid Plasma Cells Cancelled Fluid Macrophages Cancelled Fld Mesothelial Cells Cancelled Fluid Other Cells Cancelled Fluid Crystals SEE PATH REV Fluid Crystal Source SYNOVIAL Fl Crystal Path Review Reviewed Fl Pathologist Comment Cancelled Fluid Comment 2 Cancelled Synovial Source RIGHT KNEE Synovial Color Straw Synovial Appearance Sl Cl Synovial WBC 0.7030 H Synovial RBC 2 H Synovial Tot Cell Ct 0.7210 H Synov Polynuclear WBCs 0.613 Synovial Neutrophils 88 H Synovial Lymphocytes 12 Synovial Polynuclear % 87.2 Synovial Mononuclear % 12.[address] Comment May follow Urine Amphetamine U Amphetamines Confirm Urine Cocaine Confirm U Cocaine Metab Screen U Benzoylecgonine GC/MS Urine Ethyl Alcohol Hepatitis A IgM Ab Hepatitis A Ab Total Hep Bs Antigen Hep B Core Total Ab Hep B Core IgM Ab HCV RNA Quant (PCR) Pending HIV 1&2 Antibody S.aureus Protein A PCR POSITIVE H MRSA (PCR) Negative 02/03/19 02/03/19 02/03/19 05:05 05:05 06:50 WBC 22.1 H RBC 2.75 L Hgb 8.8 L Hct 25.6 L MCV 93.1 MCH 32.0 MCHC 34.4 RDW 12.1 RDW Differential 39.5 Plt Count 329 MPV 9.4 Immature Gran % (Auto) 1.300 H Neut % (Auto) 85.1 H Lymph % (Auto) 5.6 L Price % (Auto) 7.8 Eos % (Auto) 0.1 Baso % (Auto) 0.1 Absolute Neuts (auto) 18.8 H Absolute Lymphs (auto) 1.24 Total Counted Not Reportable Diff Path Review Sodium 137 Potassium 4.1 Chloride 108 H Carbon Dioxide 25.0 Anion Gap 4 L BUN 11 Creatinine 0.76 Estim Creat Clear Calc 114.82 Est GFR (MDRD) Af Amer 138 Est GFR (MDRD) Non-Af 114 BUN/Creatinine Ratio 14.4 Glucose 142 H Calcium 7.5 L Prealbumin < 3.0 L Urine Color Urine Clarity Urine pH Ur Specific Fence Urine Protein Urine Glucose (UA) Urine Ketones Urine Occult Blood Urine Nitrite Urine Bilirubin Urine Urobilinogen Ur Leukocyte Esterase Urine RBC Urine WBC Ur Squamous Epith Cells Urine Bacteria Urine Mucus Fluid Source Fluid Color Fluid Appearance Fluid WBC Fluid RBC Fluid Tot Cell Count Fld Polynuclear WBCs # Fld Polynuclear WBCs % Fluid Mononuclear WBCs Fld Mononuclear WBCs % Fluid Neutrophils Fluid Lymphocytes Fluid Monocytes Fluid Plasma Cells Fluid Macrophages Fld Mesothelial Cells Fluid Other Cells Fluid Crystals Fluid Crystal Source Fl Crystal Path Review Fl Pathologist Comment Fluid Comment 2 Synovial Source Synovial Color Synovial Appearance Synovial WBC Synovial RBC Synovial Tot Cell Ct Synov Polynuclear WBCs Synovial Neutrophils Synovial Lymphocytes Synovial Polynuclear % Synovial Mononuclear % Synovial Path Comment Urine Amphetamine Pending U Amphetamines Confirm Pending Urine Cocaine Confirm Pending U Cocaine Metab Screen Pending U Benzoylecgonine GC/MS Pending Urine Ethyl Alcohol Pending Hepatitis A IgM Ab Hepatitis A Ab Total Hep Bs Antigen Hep B Core Total Ab Hep B Core IgM Ab HCV RNA Quant (PCR) HIV 1&2 Antibody S.aureus Protein A PCR MRSA (PCR) 02/03/19 06:50 WBC RBC Hgb Hct MCV MCH MCHC RDW RDW Differential Plt Count MPV Immature Gran % (Auto) Neut % (Auto) Lymph % (Auto) Price % (Auto) Eos % (Auto) Baso % (Auto) Absolute Neuts (auto) Absolute Lymphs (auto) Total Counted Diff Path Review Sodium Potassium Chloride Carbon Dioxide Anion Gap BUN Creatinine Estim Creat Clear Calc Est GFR (MDRD) Af Amer Est GFR (MDRD) Non-Af BUN/Creatinine Ratio Glucose Calcium Prealbumin Urine Color Yellow Urine Clarity Clear Urine pH 6.0 Ur Specific Fence 1.015 Urine Protein 30 H Urine Glucose (UA) Normal Urine Ketones Negative Urine Occult Blood 10 H Urine Nitrite Negative Urine Bilirubin Negative Urine Urobilinogen Normal Ur Leukocyte Esterase 25 H Urine RBC 0-5 SEEN Urine WBC 10-25 SEEN Ur Squamous Epith Cells 0-5 SEEN Urine Bacteria 0 SEEN Urine Mucus 0 SEEN Fluid Source Fluid Color Fluid Appearance Fluid WBC Fluid RBC Fluid Tot Cell Count Fld Polynuclear WBCs # Fld Polynuclear WBCs % Fluid Mononuclear WBCs Fld Mononuclear WBCs % Fluid Neutrophils Fluid Lymphocytes Fluid Monocytes Fluid Plasma Cells Fluid Macrophages Fld Mesothelial Cells Fluid Other Cells Fluid Crystals Fluid Crystal Source Fl Crystal Path Review Fl Pathologist Comment Fluid Comment 2 Synovial Source Synovial Color Synovial Appearance Synovial WBC Synovial RBC Synovial Tot Cell Ct Synov Polynuclear WBCs Synovial Neutrophils Synovial Lymphocytes Synovial Polynuclear % Synovial Mononuclear % Synovial Path Comment Urine Amphetamine U Amphetamines Confirm Urine Cocaine Confirm U Cocaine Metab Screen U Benzoylecgonine GC/MS Urine Ethyl Alcohol Hepatitis A IgM Ab Hepatitis A Ab Total Hep Bs Antigen Hep B Core Total Ab Hep B Core IgM Ab HCV RNA Quant (PCR) HIV 1&2 Antibody S.aureus Protein A PCR MRSA (PCR) POC Glucose 02/03/19 02/03/19 02/02/19 06:53 02:53 22:01 POC Glucose 169 H 82 77 02/02/19 02/02/19 02/02/19 19:14 18:39 17:59 POC Glucose 120 H 152 H 68 L 02/02/19 02/02/19 11:25 09:29 POC Glucose 234 H 266 H Clinical Impression(s) from Imaging Studies Abdomen/Pelvis CT 02/01/19 02:35 IMPRESSION: Indeterminate lingula and left lower lobe parenchymal changes may represent an inflammatory/infectious process, peripheral infarct cannot be on limited examination. These are likely new findings since previous examination allowing for changing technique. Consider CT examination chest for further detail. Trace fluid in the gallbladder fossa and posterior to the pancreas and superior retroperitoneum unchanged since 10/2018 of questionable significance. There is an indeterminant cortical lesion in the right mid kidney which was not present on previous examination and does not represent a simple cyst. Further assessment is recommended to exclude complex cyst versus early neoplasm. Other nonacute findings as outlined above. Electronically Signed: Carolyn Gamez MD at 5:34 EDT , Service support , Hand X-Ray 02/01/19 03:10 IMPRESSION: There is no acute displaced fracture or dislocation. Electronically Signed: Carolyn Gamez MD at 3:23 EDT , Service support , Chest X-Ray 02/01/19 05:40 IMPRESSION: No acute cardiopulmonary disease. No significant interval change. Electronically Signed: Carolyn Gamez MD at 6:29 EDT , Service support , Chest CT 02/02/19 08:07 IMPRESSION: There multiple bilateral cavitating pulmonary masses. Largest is in the RIGHT upper lung measuring 17 mm. These could be necrotic metastases or septic emboli. There is NO pleural effusion or pneumothorax. Normal heart and pericardium. There is LEFT axillary lymphadenopathy. Electronically Signed: David Wright MD at 6:14 EDT , Service support , Upper Extremity CT 02/02/19 09:54 IMPRESSION: Diffuse soft tissue cellulitis in the region of the thenar space with evidence of air bubbles along the dorsal aspect as well as possible abscess collection along the volar aspect of the thenar space. No radiopaque foreign body is seen. Electronically Signed: Nicolás Shafferwilfrido, at 12:40 EDT , Service support , Knee X-Ray 02/02/19 10:00 IMPRESSION: 1. Small knee joint effusion 2. Mild patellofemoral compartment degenerative change. Electronically Signed: Rodolfo Veliz MD at 3:05 EDT Tel , Service support , Lumbar Spine MRI 02/02/19 18:00 IMPRESSION: L4-5 and L5-S1 degenerative changes more prominent at L5-S1, as described above. There is no definite discitis or osteomyelitis. A follow-up in 4-8 weeks may be warranted to ensure stability. Electronically Signed: Erik Monk, at 7:27 EDT Tel , Service support , Medical Necessity - Tobacco Use Smoking Status: Former smoker Tobacco Use: Non-smoker Assessment/Plan All Active Problems (Last Reviewed 02/01/19 @ 08:28 by Nan Saucedo DO) Sepsis (Acute) Cellulitis (Acute) Dehydration (Acute) Hypokalemia (Acute) MSSA bacteremia (Acute) Knee effusion, right (Acute) Knee pain, right (Acute) Acute pancreatitis (Resolved) Gastroenteritis (Resolved) RECOMMENDATIONS: 1. Continue antimicrobial coverage per infectious diseases recommendations. 2. Obtain repeat blood cultures. 3. Pain control per hospitalist. 4. Encourage incentive spirometer use while in bed. 5. Consider endoscopy once medically stable. IMPRESSIONS: 1. Severe sepsis secondary to staph bacteremia due to complex necrotizing d iabetic hand abscess The patient presented with left hand swelling and erythema and is now POD #1 s/p excisional debridement. Blood cultures were noted to be positive for MSSA. Infectious diseases is currently following to assist with antimicrobial management. Recommend sending repeat blood cultures today. Surface echocardiogram did not reveal evidence of valvular vegetations. The patient's right knee effusion was also tapped by orthopedics, who felt the fluid collection was reactive in nature. 2. Abnormal chest CT with bilateral cavitary lung lesions The patient's CT chest was personally reviewed. The imaging findings seem most consistent with septic emboli in the setting of #1. I have a low clinical index of suspicion for underlying pulmonary TB. Continue antibiotics and supportive measures as noted above. Encourage incentive spirometer use while in bed. 3. Unintentional weight loss Concern for some form of occult underlying malignancy, especially in light of occult positive stools. Surgery to consider endoscopy once medically stabilized. SPEP/UPEP currently pending. 4. Personal history of HCV Hepatitis C PCR currently pending. This note was generated with [employer] dictation software. It may contain incorrect words, spelling, and punctuation that were not noted in checking the note before signing. Code Visit Inpatient E&M: 77070 Subs Hosp L3
[2019-02-03 07:39] LABS: HEPATITIS B SURFACE AG Negative (Negative); Hepatitis A AB, Total Negative (Negative); Hepatitis A IgM Antibody Negative (Negative); Hepatitis B Core AB IgM Negative (Negative); Hepatitis B Core Ab Total Negative (Negative); Hepatitis C Ab >11.0 s/co ratio (0.0-0.9)
[2019-02-03] MEDS: Insulin Lispro 100 UNIT/ML INSULN.PEN SC ×2 (07:45→12:04)
[2019-02-03] MEDS: Magnesium Oxide 400 MG Tablet PO (07:45)
[2019-02-03] MEDS: oxyCODONE 5 MG Tablet 10 MG PO ×4 (07:54→23:50)
[2019-02-03] MEDS: Lisinopril 10 MG Tablet PO ×2 (09:22→17:07)
[2019-02-03] MEDS: Enoxaparin 40 MG/0.4 ML Syringe SC (09:23)
[2019-02-03] MEDS: Pantoprazole Sodium 40 MG Tablet PO ×2 (09:27→21:14)
[2019-02-03] MEDS: Glucerna Shake 120 ML LIQUID PO ×3 (09:27→18:15)
[2019-02-03 11:25] LABS: Hep B Surface Antibodies Non Reactive (.)
--- NOTE | 2019-02-03 11:37 | CASEMGMT ---
Addendum entered and electronically signed by Yana Vieyra 02/03/19 15:04: refuge worker hospitality internship re-visited patient to chat about assisted options. Patient had not talked with yet. Patient will be seen over weekend and asked again. -ZEENAT Todd Student Coding Educator. Original Note: Addendum entered by Anna Norman 02/03/19 12:18: Note below reviewed and approved. REBECCA Lawrence Original Note: Social Work [facility] Unit refuge worker hospitality internship met with patient to speak about [employer] Whe[employer] application. Pt answered all questions appropriately. refuge worker hospitality internship spoke with patient about coping skills with health changes and pt reported to enjoy sleeping so not to deal with it and it being the problems. Pt reported is supportive but away from home often for work. Pt was provided list of prison facilities that insurance will work with to review with when visiting. Social work to visit again this afternoon to chat about prison facilities. -ZEENAT Todd Student Coding Educator.
--- NOTE | 2019-02-03 11:40 | PN.SURG_ITS ---
Patient Problems: Active and Suspected Problems (Last Reviewed 02/01/19 @ 08:28 by Nan Saucedo DO) Sepsis (Acute) Cellulitis (Acute) Dehydration (Acute) Hypokalemia (Acute) MSSA bacteremia (Acute) Knee effusion, right (Acute) Knee pain, right (Acute) Subjective: Posto #1 Patient complains of left hand pain. Silver dressing change was painful. Patient needed IV analgesia. - Physical Exam General: Alert, Oriented x3 HEENT: PERRLA, EOMI Oral: Moist Mucosa Neck: Supple Abdomen: Soft, Non-Distended Extremities: Edema, Peripheral Pulses Normal - left hand swelling less than preop. Mild to moderate. Skin: Ulcer/ Wound - multiple wounds left thumb, thenar eminence, and dorsum left hand are stable. No further evidence of pus or infection noted. Wounds redressed with Silver dressing. Dressing change was painful and patient needed IV analgesia. Neurological: Cranial nerves II-XII grossly intact Psych/Mental Status: Normal Affect, Appropriate Vital Signs Temp Pulse Resp BP Pulse Ox 98.4 F 109 H 18 154/91 H 94 02/03/19 07:46 02/03/19 07:46 02/03/19 07:46 02/03/19 07:46 02/03/19 07:46 Oxygen Flow Rate (L/min) 2 Oxygen Delivery Method Room Air Weight: 157 lb 6.561 oz Body Mass Index (BMI) 17.1 Finger Stick Blood Glucose 68 Intake and Output for Last 24 Hours 02/01/19 02/02/19 02/03/19 23:59 23:59 23:59 Intake Total 2175 / 2175 5667.6 / 5667.6 1664 / 1664 Output Total 400 / 400 Balance 1775 / 1775 5667.6 / 5667.6 1664 / 1664 Microbiology Past 72 Hours 02/02/19 18:00 Wound Culture - Preliminary Tissue - Other Staphylococcus aureus 02/02/19 11:15 Gram Stain - Final Fluid - Other Body Fluid Culture - Preliminary No growth-Final to follow 02/02/19 09:47 Blood Culture - Preliminary Blood Culture (Wb) - Right Forearm Staphylococcus aureus 02/01/19 02:30 Bacteria Detection (PCR) - Final Blood Culture (Wb) - Anticubital Right Staphylococcus aureus Blood Culture - Final Staphylococcus aureus 02/03/19 03:48 Gram Stain - Preliminary Sputum, Expectorated/Coughed 02/01/19 03:50 Blood Culture - Final Blood Culture (Wb) - Anticubital Left Staphylococcus aureus 02/01/19 17:08 Stool Occult Blood (LEONIE) - Final Stool Occult Blood Positive Laboratory Tests Past 24 Hrs 02/01/19 02/02/19 02/02/19 11:28 05:00 08:48 WBC RBC Hgb Hct MCV MCH MCHC RDW RDW Differential Plt Count MPV Immature Gran % (Auto) Neut % (Auto) Lymph % (Auto) [place] % (Auto) Eos % (Auto) Baso % (Auto) Absolute Neuts (auto) Absolute Lymphs (auto) Total Counted Diff Path Review Reviewed Sodium Potassium Chloride Carbon Dioxide Anion Gap BUN Creatinine Estim Creat Clear Calc Est GFR (MDRD) Af Amer Est GFR (MDRD) Non-Af BUN/Creatinine Ratio Glucose Calcium Total Protein (PEP) 6.7 Albumin (PEP) 2.2 L Globulin (PEP) 4.5 H Albumin/Globulin (PEP) 0.5 L Prealbumin Gmqqj-8-Rhjxgircp 0.5 H Rponn-7-Lphvzyfmq 1.0 Beta Globulins 1.0 Gamma Globulins 2.0 H M-Haris PEP Note Comment PEP Interpretation Comment Urine Color Urine Clarity Urine pH Ur Specific [place] Urine Protein Urine Glucose (UA) Urine Ketones Urine Occult Blood Urine Nitrite Urine Bilirubin Urine Urobilinogen Ur Leukocyte Esterase Urine RBC Urine WBC Ur Squamous Epith Cells Urine Bacteria Urine Mucus Fluid Source Fluid Color Fluid Appearance Fluid WBC Fluid RBC Fluid Tot Cell Count Fld Polynuclear WBCs # Fld Polynuclear WBCs % Fluid Mononuclear WBCs Fld Mononuclear WBCs % Fluid Neutrophils Fluid Lymphocytes Fluid Monocytes Fluid Plasma Cells Fluid Macrophages Fld Mesothelial Cells Fluid Other Cells Fluid Crystals Fluid Crystal Source Fl Crystal Path Review Fl Pathologist Comment Fluid Comment 2 Synovial Source Synovial Color Synovial Appearance Synovial WBC Synovial RBC Synovial Tot Cell Ct Synov Polynuclear WBCs Synovial Neutrophils Synovial Lymphocytes Synovial Polynuclear % Synovial Mononuclear % Synovial Path Comment Urine Amphetamine U Amphetamines Confirm Urine Cocaine Confirm U Cocaine Metab Screen U Benzoylecgonine GC/MS Urine Ethyl Alcohol Hepatitis A IgM Ab Negative Hepatitis A Ab Total Negative Hep Bs Antigen Negative Hep B Core Total Ab Negative Hep B Core IgM Ab Negative Hepatitis C Ab Confirm >11.0 H HCV RNA Quant (PCR) S.aureus Protein A PCR MRSA (PCR) 02/02/19 02/02/19 02/03/19 11:15 16:38 05:05 WBC RBC Hgb Hct MCV MCH MCHC RDW RDW Differential Plt Count MPV Immature Gran % (Auto) Neut % (Auto) Lymph % (Auto) [place] % (Auto) Eos % (Auto) Baso % (Auto) Absolute Neuts (auto) Absolute Lymphs (auto) Total Counted Diff Path Review Sodium Potassium Chloride Carbon Dioxide Anion Gap BUN Creatinine Estim Creat Clear Calc Est GFR (MDRD) Af Amer Est GFR (MDRD) Non-Af BUN/Creatinine Ratio Glucose Calcium Total Protein (PEP) Albumin (PEP) Globulin (PEP) Albumin/Globulin (PEP) Prealbumin Irkoo-5-Rmdrbsshn Mqtmx-2-Qsjcyuxwj Beta Globulins Gamma Globulins M-Haris PEP Note PEP Interpretation Urine Color Urine Clarity Urine pH Ur Specific [place] Urine Protein Urine Glucose (UA) Urine Ketones Urine Occult Blood Urine Nitrite Urine Bilirubin Urine Urobilinogen Ur Leukocyte Esterase Urine RBC Urine WBC Ur Squamous Epith Cells Urine Bacteria Urine Mucus Fluid Source Cancelled Fluid Color Cancelled Fluid Appearance Cancelled Fluid WBC Cancelled Fluid RBC Cancelled Fluid Tot Cell Count Cancelled Fld Polynuclear WBCs # Cancelled Fld Polynuclear WBCs % Cancelled Fluid Mononuclear WBCs Cancelled Fld Mononuclear WBCs % Cancelled Fluid Neutrophils Cancelled Fluid Lymphocytes Cancelled Fluid Monocytes Cancelled Fluid Plasma Cells Cancelled Fluid Macrophages Cancelled Fld Mesothelial Cells Cancelled Fluid Other Cells Cancelled Fluid Crystals SEE PATH REV Fluid Crystal Source SYNOVIAL Fl Crystal Path Review Reviewed Fl Pathologist Comment Cancelled Fluid Comment 2 Cancelled Synovial Source RIGHT KNEE Synovial Color Straw Synovial Appearance Sl Cl Synovial WBC 0.7030 H Synovial RBC 2 H Synovial Tot Cell Ct 0.7210 H Synov Polynuclear WBCs 0.613 Synovial Neutrophils 88 H Synovial Lymphocytes 12 Synovial Polynuclear % 87.2 Synovial Mononuclear % 12.[address] Comment May follow Urine Amphetamine U Amphetamines Confirm Urine Cocaine Confirm U Cocaine Metab Screen U Benzoylecgonine GC/MS Urine Ethyl Alcohol Hepatitis A IgM Ab Hepatitis A Ab Total Hep Bs Antigen Hep B Core Total Ab Hep B Core IgM Ab Hepatitis C Ab Confirm HCV RNA Quant (PCR) Pending S.aureus Protein A PCR POSITIVE H MRSA (PCR) Negative 02/03/19 02/03/19 02/03/19 05:05 05:05 06:50 WBC 22.1 H RBC 2.75 L Hgb 8.8 L Hct 25.6 L MCV 93.1 MCH 32.0 MCHC 34.4 RDW 12.1 RDW Differential 39.5 Plt Count 329 MPV 9.4 Immature Gran % (Auto) 1.300 H Neut % (Auto) 85.1 H Lymph % (Auto) 5.6 L [place] % (Auto) 7.8 Eos % (Auto) 0.1 Baso % (Auto) 0.1 Absolute Neuts (auto) 18.8 H Absolute Lymphs (auto) 1.24 Total Counted Not Reportable Diff Path Review Sodium 137 Potassium 4.1 Chloride 108 H Carbon Dioxide 25.0 Anion Gap 4 L BUN 11 Creatinine 0.76 Estim Creat Clear Calc 114.82 Est GFR (MDRD) Af Amer 138 Est GFR (MDRD) Non-Af 114 BUN/Creatinine Ratio 14.4 Glucose 142 H Calcium 7.5 L Total Protein (PEP) Albumin (PEP) Globulin (PEP) Albumin/Globulin (PEP) Prealbumin < 3.0 L Earxk-8-Pyalvhimx Ttcly-1-Izlifegow Beta Globulins Gamma Globulins M-Haris PEP Note PEP Interpretation Urine Color Urine Clarity Urine pH Ur Specific [place] Urine Protein Urine Glucose (UA) Urine Ketones Urine Occult Blood Urine Nitrite Urine Bilirubin Urine Urobilinogen Ur Leukocyte Esterase Urine RBC Urine WBC Ur Squamous Epith Cells Urine Bacteria Urine Mucus Fluid Source Fluid Color Fluid Appearance Fluid WBC Fluid RBC Fluid Tot Cell Count Fld Polynuclear WBCs # Fld Polynuclear WBCs % Fluid Mononuclear WBCs Fld Mononuclear WBCs % Fluid Neutrophils Fluid Lymphocytes Fluid Monocytes Fluid Plasma Cells Fluid Macrophages Fld Mesothelial Cells Fluid Other Cells Fluid Crystals Fluid Crystal Source Fl Crystal Path Review Fl Pathologist Comment Fluid Comment 2 Synovial Source Synovial Color Synovial Appearance Synovial WBC Synovial RBC Synovial Tot Cell Ct Synov Polynuclear WBCs Synovial Neutrophils Synovial Lymphocytes Synovial Polynuclear % Synovial Mononuclear % Synovial Path Comment Urine Amphetamine Pending U Amphetamines Confirm Pending Urine Cocaine Confirm Pending U Cocaine Metab Screen Pending U Benzoylecgonine GC/MS Pending Urine Ethyl Alcohol Pending Hepatitis A IgM Ab Hepatitis A Ab Total Hep Bs Antigen Hep B Core Total Ab Hep B Core IgM Ab Hepatitis C Ab Confirm HCV RNA Quant (PCR) S.aureus Protein A PCR MRSA (PCR) 02/03/19 06:50 WBC RBC Hgb Hct MCV MCH MCHC RDW RDW Differential Plt Count MPV Immature Gran % (Auto) Neut % (Auto) Lymph % (Auto) [place] % (Auto) Eos % (Auto) Baso % (Auto) Absolute Neuts (auto) Absolute Lymphs (auto) Total Counted Diff Path Review Sodium Potassium Chloride Carbon Dioxide Anion Gap BUN Creatinine Estim Creat Clear Calc Est GFR (MDRD) Af Amer Est GFR (MDRD) Non-Af BUN/Creatinine Ratio Glucose Calcium Total Protein (PEP) Albumin (PEP) Globulin (PEP) Albumin/Globulin (PEP) Prealbumin Pboti-8-Erjoxhjkp Gkhdc-1-Tmqietlga Beta Globulins Gamma Globulins M-Haris PEP Note PEP Interpretation Urine Color Yellow Urine Clarity Clear Urine pH 6.0 Ur Specific [place] 1.015 Urine Protein 30 H Urine Glucose (UA) Normal Urine Ketones Negative Urine Occult Blood 10 H Urine Nitrite Negative Urine Bilirubin Negative Urine Urobilinogen Normal Ur Leukocyte Esterase 25 H Urine RBC 0-5 SEEN Urine WBC 10-25 SEEN Ur Squamous Epith Cells 0-5 SEEN Urine Bacteria 0 SEEN Urine Mucus 0 SEEN Fluid Source Fluid Color Fluid Appearance Fluid WBC Fluid RBC Fluid Tot Cell Count Fld Polynuclear WBCs # Fld Polynuclear WBCs % Fluid Mononuclear WBCs Fld Mononuclear WBCs % Fluid Neutrophils Fluid Lymphocytes Fluid Monocytes Fluid Plasma Cells Fluid Macrophages Fld Mesothelial Cells Fluid Other Cells Fluid Crystals Fluid Crystal Source Fl Crystal Path Review Fl Pathologist Comment Fluid Comment 2 Synovial Source Synovial Color Synovial Appearance Synovial WBC Synovial RBC Synovial Tot Cell Ct Synov Polynuclear WBCs Synovial Neutrophils Synovial Lymphocytes Synovial Polynuclear % Synovial Mononuclear % Synovial Path Comment Urine Amphetamine U Amphetamines Confirm Urine Cocaine Confirm U Cocaine Metab Screen U Benzoylecgonine GC/MS Urine Ethyl Alcohol Hepatitis A IgM Ab Hepatitis A Ab Total Hep Bs Antigen Hep B Core Total Ab Hep B Core IgM Ab Hepatitis C Ab Confirm HCV RNA Quant (PCR) S.aureus Protein A PCR MRSA (PCR) POC Glucose 02/03/19 02/03/19 02/02/19 06:53 02:53 22:01 POC Glucose 169 H 82 77 02/02/19 02/02/19 02/02/19 19:14 18:39 17:59 POC Glucose 120 H 152 H 68 L Medical Necessity - Tobacco Use Smoking Status: Former smoker Tobacco Use: Non-smoker Assessment/Plan All Active Problems (Last Reviewed 02/01/19 @ 08:28 by Nan Saucedo DO) Sepsis (Acute) Cellulitis (Acute) Dehydration (Acute) Hypokalemia (Acute) MSSA bacteremia (Acute) Knee effusion, right (Acute) Knee pain, right (Acute) Acute pancreatitis (Resolved) Gastroenteritis (Resolved) 1. 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 2. Necrotizing diabetic abscess thenar emininence left palm extending through thenar muscles and first dorsal interosseous muscle. 3. Necrotizing diabetic abscess dorsum left hand at first webspace extending through first dorsal interosseous muscle and thenar muscles. 4. Suppurative flexor tenosynovitis. 5. Diabetes mellitus. 6. Sepsis. 7. s/p surgical preparation left thumb and thenar eminence and dorsum hand over first webspace with incision and drainage and excisional debridement complex necrotizing diabetic abscesses (33 cm2) and incision and drainage tendon sheath left thumb for suppurative flexor tenosynovitis and incision and drainage necrotizing diabetic abscess dorsum left thumb involving extensor tendon with tenosynovitis and incision and drainage necrotizing diabetic abscess thenar eminence left palm extending through thenar muscles (abductor pollicis brevis, flexor pollicis brevis, opponens pollicis, and adductor pollicis) and first dorsal interosseous muscle and incision and drainage necrotizing diabetic abscess first dorsal webspace left hand extending through first dorsal interosseous muscle and thenar muscles (abductor pollicis brevis, flexor pollicis brevis, opponens pollicis, and adductor pollicis). Patient tolerated the Silver dressing change with some pain. He needed IV analgesia. Mild to moderate swelling present. Less than preop. No further pus seen in the wounds. Operative culture shows Staphylococcus aureus thus far. Presently he is on Ancef and Cleocin. With the severity of the infection with pus diffuse throughout the thumb with suppurative flexor tenosynovitis and thenar space with extension to dorsum of hand, he will need IV antibiotics for 6 weeks. Infectious Diseases is on board for antibiotic management. Will evaluate the hand wounds closely. His WBC decreased only slightly to 22.1 from 24. His temps are still elevated to 101.4 last night after the surgery. The aggressive irrigation of the wounds can sometimes lead to temporary bacteremia and elevated temps. The slope of the Tmax points should improve over time. If persistently elevated above 101, and if the WBC continues to stay elevated (i.e., > 18 or so), would be suspicious for more infection that would need another operative debridement and irrigation and drainage procedure. Patient is aware of that possibility. Keep left hand elevated. Patient will need aggressive OT for range of motion exercises, strengthening, and edema management after discharge to minimize stiffness. Patient is at high risk for residual stiffness in his left thumb and hand. Anticipate increased metabolic demands from the infection and the surgical wounds. Prealbumin was <3 Encourage nutritional supplementation with protein to help the healing process. With the complexity of the wound and the need for IV antibiotics, patient needs to go to an ECF. Evaluation in process.
[2019-02-03] MEDS: HYDROmorphone 1 MG/ML Syringe IV (11:57)
[2019-02-03 12:10] LABS: Bedside Glucose 154 mg/dL (70-110)
--- NOTE | 2019-02-03 12:13 | NURSING ---
wound photo: left hand (palmar surface)
--- NOTE | 2019-02-03 12:14 | NURSING ---
wound photo: left hand
--- NOTE | 2019-02-03 13:53 | PN.ID_ITS ---
Patient Problems: Active and Suspected Problems (Last Reviewed 02/01/19 @ 08:28 by Nan Saucedo DO) Sepsis (Acute) Cellulitis (Acute) Dehydration (Acute) Hypokalemia (Acute) MSSA bacteremia (Acute) Knee effusion, right (Acute) Knee pain, right (Acute) Subjective: Significant pain in L hand. No fever. No n/v/d. - Physical Exam General: Alert, Cooperative, No apparent distress Lungs: Clear to auscultation, Normal air movement Cardiovascular: Regular rate, Regular Rhythm Abdomen: Soft, Non Tender, Non-Distended Skin: Ulcer/ Wound - reviewed photo Vital Signs Temp Pulse Resp BP Pulse Ox 98.4 F 109 H 18 154/91 H 94 02/03/19 07:46 02/03/19 07:46 02/03/19 07:46 02/03/19 07:46 02/03/19 07:46 Oxygen Flow Rate (L/min) 2 Oxygen Delivery Method Room Air Weight: 71.4 kg Body Mass Index (BMI) 17.1 Finger Stick Blood Glucose 68 Intake and Output for Last 24 Hours 02/01/19 02/02/19 02/03/19 23:59 23:59 23:59 Intake Total 2175 / 2175 5667.6 / 5667.6 2275 / 2275 Output Total 400 / 400 Balance 1775 / 1775 5667.6 / 5667.6 2275 / 2275 Microbiology Past 72 Hours 02/02/19 18:00 Gram Stain - Final Tissue - Other Wound Culture - Preliminary Staphylococcus aureus 02/03/19 03:48 Gram Stain - Final Sputum, Expectorated/Coughed 02/02/19 11:15 Gram Stain - Final Fluid - Other Body Fluid Culture - Preliminary No growth-Final to follow 02/02/19 09:47 Blood Culture - Preliminary Blood Culture (Wb) - Right Forearm Staphylococcus aureus 02/01/19 02:30 Bacteria Detection (PCR) - Final Blood Culture (Wb) - Anticubital Right Staphylococcus aureus Blood Culture - Final Staphylococcus aureus 02/01/19 03:50 Blood Culture - Final Blood Culture (Wb) - Anticubital Left Staphylococcus aureus 02/01/19 17:08 Stool Occult Blood (LEONIE) - Final Stool Occult Blood Positive Laboratory Tests Past 24 Hrs 02/01/19 02/02/19 02/02/19 11:28 08:48 11:15 WBC RBC Hgb Hct MCV MCH MCHC RDW RDW Differential Plt Count MPV Immature Gran % (Auto) Neut % (Auto) Lymph % (Auto) [place] % (Auto) Eos % (Auto) Baso % (Auto) Absolute Neuts (auto) Absolute Lymphs (auto) Total Counted Sodium Potassium Chloride Carbon Dioxide Anion Gap BUN Creatinine Estim Creat Clear Calc Est GFR (MDRD) Af Amer Est GFR (MDRD) Non-Af BUN/Creatinine Ratio Glucose Calcium Total Protein (PEP) 6.7 Albumin (PEP) 2.2 L Globulin (PEP) 4.5 H Albumin/Globulin (PEP) 0.5 L Prealbumin Exgmq-1-Qwoakumtg 0.5 H Sfcmc-6-Tiqfziixi 1.0 Beta Globulins 1.0 Gamma Globulins 2.0 H M-Haris PEP Note Comment PEP Interpretation Comment Urine Color Urine Clarity Urine pH Ur Specific [place] Urine Protein Urine Glucose (UA) Urine Ketones Urine Occult Blood Urine Nitrite Urine Bilirubin Urine Urobilinogen Ur Leukocyte Esterase Urine RBC Urine WBC Ur Squamous Epith Cells Urine Bacteria Urine Mucus Fl Crystal Path Review Reviewed Synovial RBC 2 H Synovial Neutrophils 88 H Synovial Lymphocytes 12 Urine Amphetamine U Amphetamines Confirm Urine Cocaine Confirm U Cocaine Metab Screen U Benzoylecgonine GC/MS Urine Ethyl Alcohol Hepatitis A IgM Ab Negative Hepatitis A Ab Total Negative Hep Bs Antigen Negative Hep B Core Total Ab Negative Hep B Core IgM Ab Negative Hepatitis C Ab Confirm >11.0 H HCV RNA Quant (PCR) S.aureus Protein A PCR MRSA (PCR) 02/02/19 02/03/19 02/03/19 16:38 05:05 05:05 WBC 22.1 H RBC 2.75 L Hgb 8.8 L Hct 25.6 L MCV 93.1 MCH 32.0 MCHC 34.4 RDW 12.1 RDW Differential 39.5 Plt Count 329 MPV 9.4 Immature Gran % (Auto) 1.300 H Neut % (Auto) 85.1 H Lymph % (Auto) 5.6 L [place] % (Auto) 7.8 Eos % (Auto) 0.1 Baso % (Auto) 0.1 Absolute Neuts (auto) 18.8 H Absolute Lymphs (auto) 1.24 Total Counted Not Reportable Sodium Potassium Chloride Carbon Dioxide Anion Gap BUN Creatinine Estim Creat Clear Calc Est GFR (MDRD) Af Amer Est GFR (MDRD) Non-Af BUN/Creatinine Ratio Glucose Calcium Total Protein (PEP) Albumin (PEP) Globulin (PEP) Albumin/Globulin (PEP) Prealbumin Mwdli-2-Nlhbnohli Dofsu-6-Avcvpwnru Beta Globulins Gamma Globulins M-Haris PEP Note PEP Interpretation Urine Color Urine Clarity Urine pH Ur Specific [place] Urine Protein Urine Glucose (UA) Urine Ketones Urine Occult Blood Urine Nitrite Urine Bilirubin Urine Urobilinogen Ur Leukocyte Esterase Urine RBC Urine WBC Ur Squamous Epith Cells Urine Bacteria Urine Mucus Fl Crystal Path Review Synovial RBC Synovial Neutrophils Synovial Lymphocytes Urine Amphetamine U Amphetamines Confirm Urine Cocaine Confirm U Cocaine Metab Screen U Benzoylecgonine GC/MS Urine Ethyl Alcohol Hepatitis A IgM Ab Hepatitis A Ab Total Hep Bs Antigen Hep B Core Total Ab Hep B Core IgM Ab Hepatitis C Ab Confirm HCV RNA Quant (PCR) Pending S.aureus Protein A PCR POSITIVE H MRSA (PCR) Negative 02/03/19 02/03/19 02/03/19 05:05 06:50 06:50 WBC RBC Hgb Hct MCV MCH MCHC RDW RDW Differential Plt Count MPV Immature Gran % (Auto) Neut % (Auto) Lymph % (Auto) [place] % (Auto) Eos % (Auto) Baso % (Auto) Absolute Neuts (auto) Absolute Lymphs (auto) Total Counted Sodium 137 Potassium 4.1 Chloride 108 H Carbon Dioxide 25.0 Anion Gap 4 L BUN 11 Creatinine 0.76 Estim Creat Clear Calc 114.82 Est GFR (MDRD) Af Amer 138 Est GFR (MDRD) Non-Af 114 BUN/Creatinine Ratio 14.4 Glucose 142 H Calcium 7.5 L Total Protein (PEP) Albumin (PEP) Globulin (PEP) Albumin/Globulin (PEP) Prealbumin < 3.0 L Fjfjz-4-Iixphhlya Ysnhh-7-Jzfpjorxu Beta Globulins Gamma Globulins M-Haris PEP Note PEP Interpretation Urine Color Yellow Urine Clarity Clear Urine pH 6.0 Ur Specific [place] 1.015 Urine Protein 30 H Urine Glucose (UA) Normal Urine Ketones Negative Urine Occult Blood 10 H Urine Nitrite Negative Urine Bilirubin Negative Urine Urobilinogen Normal Ur Leukocyte Esterase 25 H Urine RBC 0-5 SEEN Urine WBC 10-25 SEEN Ur Squamous Epith Cells 0-5 SEEN Urine Bacteria 0 SEEN Urine Mucus 0 SEEN Fl Crystal Path Review Synovial RBC Synovial Neutrophils Synovial Lymphocytes Urine Amphetamine Pending U Amphetamines Confirm Pending Urine Cocaine Confirm Pending U Cocaine Metab Screen Pending U Benzoylecgonine GC/MS Pending Urine Ethyl Alcohol Pending Hepatitis A IgM Ab Hepatitis A Ab Total Hep Bs Antigen Hep B Core Total Ab Hep B Core IgM Ab Hepatitis C Ab Confirm HCV RNA Quant (PCR) S.aureus Protein A PCR MRSA (PCR) POC Glucose 02/03/19 02/03/19 02/03/19 12:02 06:53 02:53 POC Glucose 154 H 169 H 82 02/02/19 02/02/19 02/02/19 22:01 19:14 18:39 POC Glucose 77 120 H 152 H 02/02/19 17:59 POC Glucose 68 L Medical Necessity - Tobacco Use Smoking Status: Former smoker Tobacco Use: Non-smoker Route of nutrition/ use of supplements: [] Nutritional Intake: [] IV Site: [] Canas Catheter: [] - Assessment/Plan Antibiotics: [] Assessment/Plan: [] Active and Suspected Problems (Last Reviewed 02/01/19 @ 08:28 by Nan Saucedo DO) Sepsis (Acute) Cellulitis (Acute) Dehydration (Acute) Hypokalemia (Acute) severe sepsis (leukocytosis, tachycardia, lactic acidosis) with MSSA bacteremia from L hand deep infection. Concern for R sided endocarditis given suspected pulm emboli. - repeat bcx x1 today - TTE showed no veg - Taken to OR 02/[address] Rankin with diffuse abscess and necrosis in his hand. - knee aspiration by Dr. Marroquin so far consistent with reactive arthritis - has chronic lower back pain and spine tenderness. MRI 02/02 showed no new sign of infection. Last study was 10/2018. - continue cefazolin. Added clinda in AM 02/02 for anti-toxin effect. CT then did show gas in the tissues. Cavitary lung lesion - Low suspicion for TB. No hemoptysis, some weight loss. Reports neg PPD in the past. - given his history, imaging, (+) mSSA bacteremia, and that these lung changes are new compared to CT on 01/25, removed d/c neg airflow isolation chronic hep C - neg for HIV and hep B in 10/2018 - HCV pcr was 8 million in 05/2018. Will check repeat pcr. - given bacteremia and possible R sided endocarditis, will check tox screen. - denies IVDU Will follow, d/w Dr. Saucedo, Dr. Rankin, and Dr. Kerr.
--- NOTE | 2019-02-03 15:08 | PN_ITS ---
Patient Problems: Active and Suspected Problems (Last Reviewed 02/01/19 @ 08:28 by Nan Saucedo DO) Sepsis (Acute) Cellulitis (Acute) Dehydration (Acute) Hypokalemia (Acute) MSSA bacteremia (Acute) Knee effusion, right (Acute) Knee pain, right (Acute) Subjective: Postoperative day #1-status post incision and drainage of left hand abscess Day #3 antibiotics Ancef and clindamycin All events the past 24 hours of been reviewed. T-max is 101.4 and current temp is 98.3. Heart rate over the past 24 hours has ranged from 104-127. Current heart rate is 122. Blood pressures are high and have ranged from 162/83 to 200/101 in the past 24 hours. Current blood pressure is 164/102 Pulse ox on room air is 94-95%. All labs personally reviewed. The white blood cell count today is 22.1 with a left shift. Hemoglobin is 8.8, down from 12.2 at admission. Platelets are within normal limits. Repeat blood culture on 02/02/2019 was positive for staph aureus and an additional blood culture has been sent today by Dr. Cherry. Urine culture is pending. Results of the arthrocentesis on the knee are consistent with reactive a rthritis. He is c/o myalgias and arthralgias. He is not c/o abdominal pain since the PPI was started. He denies CP and SOB. No cough. CXR today shows increased infiltrates and mild PVC the hepatitis panel is + only for C and the Hep C viral PCR is pending. HIV is NR Objective: - Physical Exam General: Alert, Oriented x3, Cooperative, Cachectic. He is more alert today. He actually looks better today.......less lethargic HEENT: Atraumatic, PERRLA, EOMI, Normocephalic Oral: Moist Mucosa, Poor dentition Lungs: coarse rhonchi anteriorly, no rales and no wheezes. Cardiovascular: tachycardic, Regular Rhythm, Normal S1, Normal S2, No murmurs, No Gallop Abdomen: Bowel Sounds Present, Soft, Non-Distended, NT today Extremities: No clubbing, No cyanosis, The right knee is swollen with an obvious joint effusion. I do not appreciate any erythema but there is mildly increased warmth to touch. The left hand is bandaged. I reviewed the pictures taken by the wound care nurse when the dressing was changed today. There is no erythma proximal to the dressing Skin: No rashes Musculoskeletal: Muscle Wasting Neurological: Cranial nerves II-XII grossly intact, Neuro grossly intact Psych/Mental Status: Appropriate - Physical Exam Vital Signs Temp Pulse Resp BP Pulse Ox 98.3 F 122 H 18 164/102 H 95 02/03/19 13:49 02/03/19 13:49 02/03/19 13:49 02/03/19 13:49 02/03/19 13:49 Oxygen Flow Rate (L/min) 2 Oxygen Delivery Method Room Air Weight: 157 lb 6.561 oz Body Mass Index (BMI) 17.1 Finger Stick Blood Glucose 68 Intake and Output for Last 24 Hours 02/01/19 02/02/19 02/03/19 23:59 23:59 23:59 Intake Total 2175 / 2175 5667.6 / 5667.6 2275 / 2275 Output Total 400 / 400 Balance 1775 / 1775 5667.6 / 5667.6 2275 / 2275 Microbiology Past 72 Hours 02/02/19 18:00 Gram Stain - Final Tissue - Other Wound Culture - Preliminary Staphylococcus aureus 02/03/19 03:48 Gram Stain - Final Sputum, Expectorated/Coughed 02/02/19 11:15 Gram Stain - Final Fluid - Other Body Fluid Culture - Preliminary No growth-Final to follow 02/02/19 09:47 Blood Culture - Preliminary Blood Culture (Wb) - Right Forearm Staphylococcus aureus 02/01/19 02:30 Bacteria Detection (PCR) - Final Blood Culture (Wb) - Anticubital Right Staphylococcus aureus Blood Culture - Final Staphylococcus aureus 02/01/19 03:50 Blood Culture - Final Blood Culture (Wb) - Anticubital Left Staphylococcus aureus 02/01/19 17:08 Stool Occult Blood (LEONIE) - Final Stool Occult Blood Positive Laboratory Tests Past 24 Hrs 02/01/19 02/02/19 02/02/19 11:28 08:48 11:15 WBC RBC Hgb Hct MCV MCH MCHC RDW RDW Differential Plt Count MPV Immature Gran % (Auto) Neut % (Auto) Lymph % (Auto) [place] % (Auto) Eos % (Auto) Baso % (Auto) Absolute Neuts (auto) Absolute Lymphs (auto) Total Counted Sodium Potassium Chloride Carbon Dioxide Anion Gap BUN Creatinine Estim Creat Clear Calc Est GFR (MDRD) Af Amer Est GFR (MDRD) Non-Af BUN/Creatinine Ratio Glucose Calcium Total Protein (PEP) 6.7 Albumin (PEP) 2.2 L Globulin (PEP) 4.5 H Albumin/Globulin (PEP) 0.5 L Prealbumin Cspnp-8-Hinvxwnbm 0.5 H Ekytu-1-Kcgmpqxkp 1.0 Beta Globulins 1.0 Gamma Globulins 2.0 H M-Haris PEP Note Comment PEP Interpretation Comment Urine Color Urine Clarity Urine pH Ur Specific [place] Urine Protein Urine Glucose (UA) Urine Ketones Urine Occult Blood Urine Nitrite Urine Bilirubin Urine Urobilinogen Ur Leukocyte Esterase Urine RBC Urine WBC Ur Squamous Epith Cells Urine Bacteria Urine Mucus Fl Crystal Path Review Reviewed Urine Amphetamine U Amphetamines Confirm Urine Cocaine Confirm U Cocaine Metab Screen U Benzoylecgonine GC/MS Urine Ethyl Alcohol Hepatitis A IgM Ab Negative Hepatitis A Ab Total Negative Hep Bs Antigen Negative Hep B Core Total Ab Negative Hep B Core IgM Ab Negative Hepatitis C Ab Confirm >11.0 H HCV RNA Quant (PCR) S.aureus Protein A PCR MRSA (PCR) 02/02/19 02/03/19 02/03/19 16:38 05:05 05:05 WBC 22.1 H RBC 2.75 L Hgb 8.8 L Hct 25.6 L MCV 93.1 MCH 32.0 MCHC 34.4 RDW 12.1 RDW Differential 39.5 Plt Count 329 MPV 9.4 Immature Gran % (Auto) 1.300 H Neut % (Auto) 85.1 H Lymph % (Auto) 5.6 L [place] % (Auto) 7.8 Eos % (Auto) 0.1 Baso % (Auto) 0.1 Absolute Neuts (auto) 18.8 H Absolute Lymphs (auto) 1.24 Total Counted Not Reportable Sodium Potassium Chloride Carbon Dioxide Anion Gap BUN Creatinine Estim Creat Clear Calc Est GFR (MDRD) Af Amer Est GFR (MDRD) Non-Af BUN/Creatinine Ratio Glucose Calcium Total Protein (PEP) Albumin (PEP) Globulin (PEP) Albumin/Globulin (PEP) Prealbumin Wawdu-0-Syjasbhqn Auwex-2-Pcaclzqzg Beta Globulins Gamma Globulins M-Haris PEP Note PEP Interpretation Urine Color Urine Clarity Urine pH Ur Specific [place] Urine Protein Urine Glucose (UA) Urine Ketones Urine Occult Blood Urine Nitrite Urine Bilirubin Urine Urobilinogen Ur Leukocyte Esterase Urine RBC Urine WBC Ur Squamous Epith Cells Urine Bacteria Urine Mucus Fl Crystal Path Review Urine Amphetamine U Amphetamines Confirm Urine Cocaine Confirm U Cocaine Metab Screen U Benzoylecgonine GC/MS Urine Ethyl Alcohol Hepatitis A IgM Ab Hepatitis A Ab Total Hep Bs Antigen Hep B Core Total Ab Hep B Core IgM Ab Hepatitis C Ab Confirm HCV RNA Quant (PCR) Pending S.aureus Protein A PCR POSITIVE H MRSA (PCR) Negative 02/03/19 02/03/19 02/03/19 05:05 06:50 06:50 WBC RBC Hgb Hct MCV MCH MCHC RDW RDW Differential Plt Count MPV Immature Gran % (Auto) Neut % (Auto) Lymph % (Auto) [place] % (Auto) Eos % (Auto) Baso % (Auto) Absolute Neuts (auto) Absolute Lymphs (auto) Total Counted Sodium 137 Potassium 4.1 Chloride 108 H Carbon Dioxide 25.0 Anion Gap 4 L BUN 11 Creatinine 0.76 Estim Creat Clear Calc 114.82 Est GFR (MDRD) Af Amer 138 Est GFR (MDRD) Non-Af 114 BUN/Creatinine Ratio 14.4 Glucose 142 H Calcium 7.5 L Total Protein (PEP) Albumin (PEP) Globulin (PEP) Albumin/Globulin (PEP) Prealbumin < 3.0 L Vwkyf-9-Laigbmcvt Cqhrv-5-Mdccbnfdm Beta Globulins Gamma Globulins M-Haris PEP Note PEP Interpretation Urine Color Yellow Urine Clarity Clear Urine pH 6.0 Ur Specific [place] 1.015 Urine Protein 30 H Urine Glucose (UA) Normal Urine Ketones Negative Urine Occult Blood 10 H Urine Nitrite Negative Urine Bilirubin Negative Urine Urobilinogen Normal Ur Leukocyte Esterase 25 H Urine RBC 0-5 SEEN Urine WBC 10-25 SEEN Ur Squamous Epith Cells 0-5 SEEN Urine Bacteria 0 SEEN Urine Mucus 0 SEEN Fl Crystal Path Review Urine Amphetamine Pending U Amphetamines Confirm Pending Urine Cocaine Confirm Pending U Cocaine Metab Screen Pending U Benzoylecgonine GC/MS Pending Urine Ethyl Alcohol Pending Hepatitis A IgM Ab Hepatitis A Ab Total Hep Bs Antigen Hep B Core Total Ab Hep B Core IgM Ab Hepatitis C Ab Confirm HCV RNA Quant (PCR) S.aureus Protein A PCR MRSA (PCR) POC Glucose 02/03/19 02/03/19 02/03/19 12:02 06:53 02:53 POC Glucose 154 H 169 H 82 02/02/19 02/02/19 02/02/19 22:01 19:14 18:39 POC Glucose 77 120 H 152 H 02/02/19 17:59 POC Glucose 68 L Medical Necessity - Tobacco Use Smoking Status: Former smoker Tobacco Use: Non-smoker Assessment/Plan All Active Problems (Last Reviewed 02/01/19 @ 08:28 by Nan Saucedo DO) Sepsis (Acute) Cellulitis (Acute) Dehydration (Acute) Hypokalemia (Acute) MSSA bacteremia (Acute) Knee effusion, right (Acute) Knee pain, right (Acute) Acute pancreatitis (Resolved) Gastroenteritis (Resolved) Impressions 1. Sepsis secondary to cellulitis of the left hand with bacteremia secondary to methicillin sensitive staph aureus. BC on 02/02 still + for MSSA. If the culture from today is still + will likely need a ALIS. 2. necrotic infection with abscess of the 3. Controlled diabetes mellitus type 2 4. Pseudohyponatremia secondary to markedly increased blood sugar 5. Hypokalemia-resolved 6. Abdominal pain associated with nausea and sometimes emesis - better since started on a PPI 7. Anemia with heme positive stool 8. Hypomagnesemia 9. Malnutrition-severe 10. Dehydration - resolved 11. Hyperlipidemia 12. Hepatitis C antibody positive 13. Unintentional weight loss 14. Chronic back pain with lumbar canal stenosis at L4-5 and L5-S1 secondary to disc disease and facet arthropathy 15. Indeterminate cortical low attenuation change in the right mid cortex not seen on previous examination of 11/14/2018. The area measures 1.6 x 1.5 x 1.4 cm and is not a simple cyst. Malignancy cannot be ruled out at this time...Will need a bx going forward once infection is cleared. ? whether it could be an abscess? 16. Former smoker 17. right knee effusion-likely reactive arthritis 18. Multiple bilateral pulmonary cavitary lesions-due to septic emboli.....increased infiltrates today despite appropriate antibiotics 19. ST with a normal temp - EKG without evidence of ischemia. TSH normal at admission Lactic acid, BNP now urine drug screen IS Continue Ancef and clindamycin Repeat blood culture was sent today He has a very serious infection and has septic emboli. He is malnourished with uncontrolled DM and Hep C. He likely has poor immune function due to this. His condition is guarded Start Jimi twice daily Recheck lab in the a.m. If the blood cultures continue to be positive will need to do a ALIS. Await sputum and urine cultures however I feel they are likely going to be positive for MSSA. SPE is + for polyclonal increase in gamma globulin likely due to infection Code Visit Inpatient E&M: 23251 Subs Hosp L3
--- NOTE | 2019-02-03 15:37 | RAD_ITS ---
STUDY: X-RAY CHEST REASON FOR EXAM: Male, 53 years old. Short of breath TECHNIQUE: Portable chest COMPARISON CT chest 02/02/2019 and chest radiograph 02/01/2019 FINDINGS: There are worsening focal bilateral pulmonary opacities some which have a cavitary appearance when compared to prior exams. There are worsening patchy infiltrates. Normal size heart. Normal mediastinum and manuel. Normal visualized pulmonary arteries. Normal visualized aortic arch and descending thoracic aorta. Normal visualized thoracic spine. Normal visualized ribs, clavicles, and shoulders. There is no demonstrated abnormality of the visualized soft tissue structures of the upper abdomen. RAD/Chest 1 View (Portable) IMPRESSION: Worsening patchy infiltrates and pulmonary nodules some which are cavitated highly suspicious for infectious inflammatory, likely septic emboli. This should be correlated clinically. Electronically Signed: Eamon Anguiano, at 16:20 EDT Tel , Service support ,
--- NOTE | 2019-02-03 15:52 | EKG12_ITS ---
Test Reason : RHYTHM Blood Pressure : / mmHG Vent. Rate : 127 BPM Atrial Rate : 127 BPM P-R Int : 150 ms QRS Dur : 084 ms QT Int : 298 ms P-R-T Axes : 056 -25 051 degrees QTc Int : 433 ms Sinus tachycardia Otherwise normal ECG When compared with ECG of 29-SEP-2018 22:48, Criteria for Septal infarct are no longer Present Confirmed by ROSEANNA WILKES, BARRIE ([id number]), slot editor MARISELA HEBERT ([id number]) on 02/08/2019 1:46:39 PM Referred By: DEE Confirmed By:BARRIE CONDON MD
[2019-02-03] MEDS: Metoprolol Tartrate 25 MG Tablet PO ×2 (17:07→21:14)
[2019-02-03] MEDS: Metoprolol Tartrate 5 MG/5 ML Vial IV (17:07)
[2019-02-03 17:43] LABS: BNP,B-Type NATRIURETIC PEPTIDE 262.2 pg/mL (0-100)
[2019-02-03 18:21] LABS: Bedside Glucose 82 mg/dL (70-110)
[2019-02-03] MEDS: Furosemide 20 MG/2 ML VIAL IV (18:21)
[2019-02-03 18:28] LABS: Lactic Acid 2.2 mmol/L (0.4-2.0)
[2019-02-03 20:33] LABS: Reflex Lactate? Y
[2019-02-03] MEDS: Atorvastatin Calcium 40 MG Tablet PO (21:14)
[2019-02-03 21:51] LABS: Lactic Acid 2.4 mmol/L (0.4-2.0)
[2019-02-03 22:36] LABS: Bedside Glucose 129 mg/dL (70-110)
[2019-02-04] VITALS (13 sets, daily range): BP systolic 125–146; BP diastolic 71–95; PULSE 80–100; RESP 16–18; TEMP 36.7–37.6; O2SAT 96–98
[2019-02-04] MEDS: HYDROmorphone 1 MG/ML Syringe 0.8 MG IV ×5 (02:24→20:32)
[2019-02-04] MEDS: 0.9% NaCl Peripheral Flush Adult/Peds IV ×8 (02:25→20:32)
[2019-02-04] MEDS: oxyCODONE 5 MG Tablet 10 MG PO ×5 (03:55→22:31)
[2019-02-04] MEDS: Cefazolin 2 GM in 0.9% Normal Saline 100 ML IV ×3 (05:15→22:32)
[2019-02-04 05:18] LABS: Absolute Lymphocyte Count 1.45 X10^3/ul (0.83-4.51); Absolute Neutrophil Count 16.6 X10^3/uL (2.0-7.7); Basophil# 0.03 X10^3/uL; Basophil% 0.1 % (0-1); Eosinophil# 0.03 X10^3/uL; Eosinophils% 0.1 % (0-5); Hematocrit 31.4 % (40-54); Hemoglobin 11.2 g/dl (13.0-16.5); Lymphocyte # 1.45 X10^3/ul (4.0); Lymphocyte % 7.2 % (19-41); Mean Corp Hgb Conc 35.7 g/gl (32-36); Mean Corpuscular Hgb 32.2 pg (27.0-32.0); Mean Corpuscular Volume 90.2 fL (80-94); Mean Platelet Vol. 9.5 fl (6.2-12.0); Monocyte# 1.69 X10^3/uL; Monocyte% 8.4 % (0-10); Neutrophil # 16.58 X10^3/uL (2.7-7.7); Neutrophil % 82.9 % (47-70); Platelet Count 270 K/mm3 (150-450); RBC Distribution Width CV 11.7 % (11.6-14.6); Red Blood Count 3.48 M/mm3 (4.6-6.2)
[2019-02-04 05:19] LABS: Differential Indicated SCAN CRITERIA MET; POSITIVE COUNT NO; POSITIVE DIFFERENTIAL YES; POSITIVE MORPHOLOGY YES
[2019-02-04 05:24] LABS: International Normalized Ratio 1.3; Prothrombin Time (Protime)PT. 15.7 SECONDS (11.7-14.9)
[2019-02-04 05:32] LABS: ALB/GLOB Ratio 0.3 RATIO (0.9-2.4); AST(SGOT) 41 U/L (15-37); Alanine Aminotransfer ALT/SGPT 18 U/L (16-61); Albumin, Serum 1.7 g/dL (3.2-5.0); Alkaline Phosphatase 136 U/L (45-117); Anion Gap 5 (5-15); BUN 12 mg/dL (7-18); BUN/Creat Ratio 20.1 RATIO (10-20); Calcium,Total 7.7 mg/dL (8.5-10.1); Chloride 101 mmol/L (98-107); EST Glomerular Filtration Rate 151 mL/min (>60); Est Glom Filt Rate - Afr Amer 183 mL/min (>60); Estimated Creatinine Clearance 145.44 ml/min; Globulin 4.9 g/dL (2.2-4.2); Glucose 104 mg/dL (74-106); Magnesium 1.8 mg/dL (1.6-2.6); Phosphorus 3.3 mg/dL (2.5-4.9); Potassium 3.8 mmol/L (3.5-5.1); Protein, Total 6.6 g/dL (6.4-8.2); Sodium Level 133 mmol/L (136-145)
[2019-02-04 06:50] LABS: Bedside Glucose 101 mg/dL (70-110)
--- NOTE | 2019-02-04 08:01 | PCM.PN.PUL ---
Patient Problems: Active and Suspected Problems (Last Reviewed 02/01/19 @ 08:28 by Nan Saucedo DO) Sepsis (Acute) Cellulitis (Acute) Dehydration (Acute) Hypokalemia (Acute) MSSA bacteremia (Acute) Knee effusion, right (Acute) Knee pain, right (Acute) Subjective: The patient was seen and examined at the bedside this morning. Events from the last 24 hours have been reviewed. The patient is currently afebrile, hemodynamically stable and maintaining appropriate oxygen saturations on room air. White blood cell count is slowly trending down. The patient denies resting shortness of breath. Patchy bilateral infiltrates were noted on repeat chest imaging from this morning. Objective: The patient's most recent lab work, culture data and imaging studies have all been personally reviewed. Blood cultures dated February 01 are positive for staph aureus. CT abdomen/pelvis revealed trace fluid in the gallbladder fossa and posterior to the pancreas of questionable significance. The patient was also incidentally noted to have a cavitary lesion in the left lower lobe along with a vague nodular density in the lingula. Additionally, there was note of a right mid kidney cortical lesion which could represent a complex cyst versus early neoplasm. CT chest,obtained on February 02, revealed multiple bilateral cavitary pulmonary lesions, which appeared more peripherally based. Surface echocardiogram revealed normal LV size and thickness with an ejection fraction of 75%. L-spine MRI revealed degenerative changes without definitive evidence of discitis or osteomyelitis. - Physical Exam General: Alert, Cooperative, No apparent distress HEENT: Atraumatic, PERRLA, Normocephalic Oral: Moist Mucosa Neck: Supple, No Nodes, Trachea Midline Lungs: No rhonchi, No wheeze, No rales Cardiovascular: Regular rate, Regular Rhythm, Normal S1, Normal S2, No murmurs Abdomen: Bowel Sounds Present, Soft, Non Tender Extremities: No clubbing, No cyanosis, - - Right knee effusion present Skin: - - No significant change from previous Musculoskeletal: Cachexia, Muscle Wasting Lymphatic: No Cervical, Supraclavicular, or Inguinal Adenopathy Neurological: Cranial nerves II-XII grossly intact, Neuro grossly intact Psych/Mental Status: Normal Affect, Appropriate Vital Signs Temp Pulse Resp BP Pulse Ox 98.2 F 83 18 125/77 H 97 02/04/19 03:00 02/04/19 03:00 02/04/19 03:00 02/04/19 03:00 02/04/19 03:00 Oxygen Flow Rate (L/min) 2 Oxygen Delivery Method Room Air Weight: 153 lb 14.122 oz Body Mass Index (BMI) 17.1 Finger Stick Blood Glucose 68 Intake and Output for Last 24 Hours 02/02/19 02/03/19 02/04/19 23:59 23:59 23:59 Intake Total 5667.6 / 5667.6 4629 / 4629 481 / 481 Balance 5667.6 / 5667.6 4629 / 4629 481 / 481 Microbiology Past 72 Hours 02/02/19 09:47 Blood Culture - Preliminary Blood Culture (Wb) - Right Forearm Gram Positive Cocci 02/02/19 18:00 Gram Stain - Final Tissue - Other Wound Culture - Preliminary Staphylococcus aureus 02/03/19 03:48 Gram Stain - Final Sputum, Expectorated/Coughed 02/02/19 11:15 Gram Stain - Final Fluid - Other Body Fluid Culture - Preliminary No growth-Final to follow 02/01/19 02:30 Bacteria Detection (PCR) - Final Blood Culture (Wb) - Anticubital Right Staphylococcus aureus Blood Culture - Final Staphylococcus aureus 02/01/19 03:50 Blood Culture - Final Blood Culture (Wb) - Anticubital Left Staphylococcus aureus 02/01/19 17:08 Stool Occult Blood (LEONIE) - Final Stool Occult Blood Positive Laboratory Tests Past 24 Hrs 02/01/19 02/02/19 02/03/19 11:28 08:48 05:05 WBC RBC Hgb Hct MCV MCH MCHC RDW RDW Differential Plt Count MPV Immature Gran % (Auto) Neut % (Auto) Lymph % (Auto) [place] % (Auto) Eos % (Auto) Baso % (Auto) Absolute Neuts (auto) Absolute Lymphs (auto) Total Counted Diff Path Review PT INR Sodium Potassium Chloride Carbon Dioxide Anion Gap BUN Creatinine Estim Creat Clear Calc Est GFR (MDRD) Af Amer Est GFR (MDRD) Non-Af BUN/Creatinine Ratio Glucose Lactic Acid Calcium Phosphorus Magnesium Total Bilirubin AST ALT Alkaline Phosphatase B-Natriuretic Peptide 262.2 H Total Protein Total Protein (PEP) 6.7 Albumin Albumin (PEP) 2.2 L Globulin Globulin (PEP) 4.5 H Albumin/Globulin Ratio Albumin/Globulin (PEP) 0.5 L Obfwb-7-Xlnbvzoco 0.5 H Jfkqg-8-Jsxthjczn 1.0 Beta Globulins 1.0 Gamma Globulins 2.0 H M-Haris PEP Note Comment PEP Interpretation Comment Hepatitis A IgM Ab Negative Hepatitis A Ab Total Negative Hep Bs Antigen Negative Hep B Core Total Ab Negative Hep B Core IgM Ab Negative Hepatitis C Ab Confirm >11.0 H 02/03/19 02/03/19 02/04/19 16:22 20:45 05:00 WBC 20.0 H RBC 3.48 L Hgb 11.2 L Hct 31.4 L MCV 90.2 MCH 32.2 H MCHC 35.7 RDW 11.7 RDW Differential 37.0 Plt Count 270 MPV 9.5 Immature Gran % (Auto) 1.300 H Neut % (Auto) 82.9 H Lymph % (Auto) 7.2 L [place] % (Auto) 8.4 Eos % (Auto) 0.1 Baso % (Auto) 0.1 Absolute Neuts (auto) 16.6 H Absolute Lymphs (auto) 1.45 Total Counted Not Reportable Diff Path Review May foll PT INR Sodium Potassium Chloride Carbon Dioxide Anion Gap BUN Creatinine Estim Creat Clear Calc Est GFR (MDRD) Af Amer Est GFR (MDRD) Non-Af BUN/Creatinine Ratio Glucose Lactic Acid 2.2 H 2.4 H Calcium Phosphorus Magnesium Total Bilirubin AST ALT Alkaline Phosphatase B-Natriuretic Peptide Total Protein Total Protein (PEP) Albumin Albumin (PEP) Globulin Globulin (PEP) Albumin/Globulin Ratio Albumin/Globulin (PEP) Vxwzb-3-Mojvvmvyz Qjvej-8-Kxsdwsdlo Beta Globulins Gamma Globulins M-Haris PEP Note PEP Interpretation Hepatitis A IgM Ab Hepatitis A Ab Total Hep Bs Antigen Hep B Core Total Ab Hep B Core IgM Ab Hepatitis C Ab Confirm 02/04/19 02/04/19 02/04/19 05:00 05:00 05:00 WBC RBC Hgb Hct MCV MCH MCHC RDW RDW Differential Plt Count MPV Immature Gran % (Auto) Neut % (Auto) Lymph % (Auto) [place] % (Auto) Eos % (Auto) Baso % (Auto) Absolute Neuts (auto) Absolute Lymphs (auto) Total Counted Diff Path Review PT 15.7 H INR 1.3 Sodium 133 L Potassium 3.8 Chloride 101 Carbon Dioxide 27.0 Anion Gap 5 BUN 12 Creatinine 0.60 L Estim Creat Clear Calc 145.44 Est GFR (MDRD) Af Amer 183 Est GFR (MDRD) Non-Af 151 BUN/Creatinine Ratio 20.1 H Glucose 104 Lactic Acid 1.0 Calcium 7.7 L Phosphorus 3.3 Magnesium 1.8 Total Bilirubin 0.60 AST 41 H ALT 18 Alkaline Phosphatase 136 H B-Natriuretic Peptide Total Protein 6.6 Total Protein (PEP) Albumin 1.7 L Albumin (PEP) Globulin 4.9 H Globulin (PEP) Albumin/Globulin Ratio 0.3 L Albumin/Globulin (PEP) Lthuk-5-Miehtezzt Ixdso-9-Quzfkyhqp Beta Globulins Gamma Globulins M-Haris PEP Note PEP Interpretation Hepatitis A IgM Ab Hepatitis A Ab Total Hep Bs Antigen Hep B Core Total Ab Hep B Core IgM Ab Hepatitis C Ab Confirm POC Glucose 02/04/19 02/03/19 02/03/19 06:45 22:32 18:11 POC Glucose 101 129 H 82 02/03/19 12:02 POC Glucose 154 H Clinical Impression(s) from Imaging Studies Abdomen/Pelvis CT 02/01/19 02:35 IMPRESSION: Indeterminate lingula and left lower lobe parenchymal changes may represent an inflammatory/infectious process, peripheral infarct cannot be on limited examination. These are likely new findings since previous examination allowing for changing technique. Consider CT examination chest for further detail. Trace fluid in the gallbladder fossa and posterior to the pancreas and superior retroperitoneum unchanged since 10/2018 of questionable significance. There is an indeterminant cortical lesion in the right mid kidney which was not present on previous examination and does not represent a simple cyst. Further assessment is recommended to exclude complex cyst versus early neoplasm. Other nonacute findings as outlined above. Electronically Signed: Carolyn Gamez MD at 5:34 EDT , Service support , Hand X-Ray 02/01/19 03:10 IMPRESSION: There is no acute displaced fracture or dislocation. Electronically Signed: Carolyn Gamez MD at 3:23 EDT , Service support , Chest X-Ray 02/01/19 05:40 IMPRESSION: No acute cardiopulmonary disease. No significant interval change. Electronically Signed: Carolyn Gamez MD at 6:29 EDT , Service support , Chest CT 02/02/19 08:07 IMPRESSION: There multiple bilateral cavitating pulmonary masses. Largest is in the RIGHT upper lung measuring 17 mm. These could be necrotic metastases or septic emboli. There is NO pleural effusion or pneumothorax. Normal heart and pericardium. There is LEFT axillary lymphadenopathy. Electronically Signed: David Wright MD at 6:14 EDT , Service support , Upper Extremity CT 02/02/19 09:54 IMPRESSION: Diffuse soft tissue cellulitis in the region of the thenar space with evidence of air bubbles along the dorsal aspect as well as possible abscess collection along the volar aspect of the thenar space. No radiopaque foreign body is seen. Electronically Signed: Nicolás Vinson, at 12:40 EDT , Service support , Knee X-Ray 02/02/19 10:00 IMPRESSION: 1. Small knee joint effusion 2. Mild patellofemoral compartment degenerative change. Electronically Signed: Rodolfo Veliz MD at 3:05 EDT Tel , Service support , Lumbar Spine MRI 02/02/19 18:00 IMPRESSION: L4-5 and L5-S1 degenerative changes more prominent at L5-S1, as described above. There is no definite discitis or osteomyelitis. A follow-up in 4-8 weeks may be warranted to ensure stability. Electronically Signed: Erik Monk, at 7:27 EDT Tel , Service support , Chest X-Ray 02/03/19 15:37 IMPRESSION: Worsening patchy infiltrates and pulmonary nodules some which are cavitated highly suspicious for infectious inflammatory, likely septic emboli. This should be correlated clinically. Electronically Signed: Eamon Anguiano, at 16:20 EDT Tel , Service support , Medical Necessity - Tobacco Use Smoking Status: Former smoker Tobacco Use: Non-smoker Assessment/Plan All Active Problems (Last Reviewed 02/01/19 @ 08:28 by Nan Saucedo DO) Sepsis (Acute) Cellulitis (Acute) Dehydration (Acute) Hypokalemia (Acute) MSSA bacteremia (Acute) Knee effusion, right (Acute) Knee pain, right (Acute) Acute pancreatitis (Resolved) Gastroenteritis (Resolved) RECOMMENDATIONS: 1. Continue antimicrobial coverage per infectious diseases recommendations. 2. Pain control per hospitalist. 3. Encourage incentive spirometer use while in bed. 4. Consider endoscopy once medically stable. IMPRESSIONS: 1. Severe sepsis secondary to staph bacteremia due to complex necrotizing diabetic hand abscess The patient presented with left hand swelling and erythema and is now POD #2 s/p excisional debridement. Blood cultures were noted to be positive for MSSA. Infectious diseases is currently following to assist with antimicrobial management. Repeat blood cultures are currently pending. Surface echocardiogram did not reveal evidence of valvular vegetations. The patient's right knee effusion was also tapped by orthopedics, who felt the fluid collection was reactive in nature. May need to consider additional surgical debridement or transesophageal echocardiogram if persistently bacteremic. 2. Abnormal chest CT with bilateral cavitary lung lesions The patient's CT chest was personally reviewed. The imaging findings seem most consistent with septic emboli in the setting of #1. I have a low clinical index of suspicion for underlying pulmonary TB. Continue antibiotics and supportive measures as noted above. Encourage incentive spirometer use while in bed. Repeat chest imaging again demonstrated patchy bilateral infiltrates with cavitary lesions concerning for septic emboli in the setting of #1. 3. Unintentional weight loss Concern for some form of occult underlying malignancy, especially in light of occult positive stools. Surgery to consider endoscopy once medically stabilized. 4. Personal history of HCV Hepatitis C PCR currently pending. ID is following. This note was generated with go2 mediaation software. It may contain incorrect words, spelling, and punctuation that were not noted in checking the note before signing. Code Visit Inpatient E&M: 09701 Subs Hosp L2
--- NOTE | 2019-02-04 08:07 | PN_ITS ---
Patient Problems: Active and Suspected Problems (Last Reviewed 02/01/19 @ 08:28 by Nan Saucedo DO) Sepsis (Acute) Cellulitis (Acute) Dehydration (Acute) Hypokalemia (Acute) MSSA bacteremia (Acute) Knee effusion, right (Acute) Knee pain, right (Acute) Subjective: The patient was seen and examined at the bedside this morning. Events from the last 24 hours have been reviewed. The patient is currently afebrile, hemodynamically stable and maintaining appropriate oxygen saturations on room air. White blood cell count is slowly trending down. The patient denies resting shortness of breath. Patchy bilateral infiltrates were noted on repeat chest imaging from this morning. Objective: The patient's most recent lab work, culture data and imaging studies have all been personally reviewed. Blood cultures dated February 01 are positive for staph aureus. CT abdomen/pelvis revealed trace fluid in the gallbladder fossa and posterior to the pancreas of questionable significance. The patient was also incidentally noted to have a cavitary lesion in the left lower lobe along with a vague nodular density in the lingula. Additionally, there was note of a right mid kidney cortical lesion which could represent a complex cyst versus early neoplasm. CT chest,obtained on February 02, revealed multiple bilateral cavitary pulmonary lesions, which appeared more peripherally based. Surface echocardiogram revealed normal LV size and thickness with an ejection fraction of 75%. L-spine MRI revealed degenerative changes without definitive evidence of discitis or osteomyelitis. - Physical Exam General: Alert, Cooperative, No apparent distress HEENT: Atraumatic, PERRLA, Normocephalic Oral: Moist Mucosa Neck: Supple, No Nodes, Trachea Midline Lungs: No rhonchi, No wheeze, No rales Cardiovascular: Regular rate, Regular Rhythm, Normal S1, Normal S2, No murmurs Abdomen: Bowel Sounds Present, Soft, Non Tender Extremities: No clubbing, No cyanosis, - - Right knee effusion present Skin: - - No significant change from previous Musculoskeletal: Cachexia, Muscle Wasting Lymphatic: No Cervical, Supraclavicular, or Inguinal Adenopathy Neurological: Cranial nerves II-XII grossly intact, Neuro grossly intact Psych/Mental Status: Normal Affect, Appropriate Vital Signs Temp Pulse Resp BP Pulse Ox 98.2 F 83 18 125/77 H 97 02/04/19 03:00 02/04/19 03:00 02/04/19 03:00 02/04/19 03:00 02/04/19 03:00 Oxygen Flow Rate (L/min) 2 Oxygen Delivery Method Room Air Weight: 153 lb 14.122 oz Body Mass Index (BMI) 17.1 Finger Stick Blood Glucose 68 Intake and Output for Last 24 Hours 02/02/19 02/03/19 02/04/19 23:59 23:59 23:59 Intake Total 5667.6 / 5667.6 4629 / 4629 481 / 481 Balance 5667.6 / 5667.6 4629 / 4629 481 / 481 Microbiology Past 72 Hours 02/02/19 09:47 Blood Culture - Preliminary Blood Culture (Wb) - Right Forearm Gram Positive Cocci 02/02/19 18:00 Gram Stain - Final Tissue - Other Wound Culture - Preliminary Staphylococcus aureus 02/03/19 03:48 Gram Stain - Final Sputum, Expectorated/Coughed 02/02/19 11:15 Gram Stain - Final Fluid - Other Body Fluid Culture - Preliminary No growth-Final to follow 02/01/19 02:30 Bacteria Detection (PCR) - Final Blood Culture (Wb) - Anticubital Right Staphylococcus aureus Blood Culture - Final Staphylococcus aureus 02/01/19 03:50 Blood Culture - Final Blood Culture (Wb) - Anticubital Left Staphylococcus aureus 02/01/19 17:08 Stool Occult Blood (LEONIE) - Final Stool Occult Blood Positive Laboratory Tests Past 24 Hrs 02/01/19 02/02/19 02/03/19 11:28 08:48 05:05 WBC RBC Hgb Hct MCV MCH MCHC RDW RDW Differential Plt Count MPV Immature Gran % (Auto) Neut % (Auto) Lymph % (Auto) Schleicher % (Auto) Eos % (Auto) Baso % (Auto) Absolute Neuts (auto) Absolute Lymphs (auto) Total Counted Diff Path Review PT INR Sodium Potassium Chloride Carbon Dioxide Anion Gap BUN Creatinine Estim Creat Clear Calc Est GFR (MDRD) Af Amer Est GFR (MDRD) Non-Af BUN/Creatinine Ratio Glucose Lactic Acid Calcium Phosphorus Magnesium Total Bilirubin AST ALT Alkaline Phosphatase B-Natriuretic Peptide 262.2 H Total Protein Total Protein (PEP) 6.7 Albumin Albumin (PEP) 2.2 L Globulin Globulin (PEP) 4.5 H Albumin/Globulin Ratio Albumin/Globulin (PEP) 0.5 L Rlolf-7-Rdcameycf 0.5 H Nmdez-5-Fagyyhhis 1.0 Beta Globulins 1.0 Gamma Globulins 2.0 H M-Haris PEP Note Comment PEP Interpretation Comment Hepatitis A IgM Ab Negative Hepatitis A Ab Total Negative Hep Bs Antigen Negative Hep B Core Total Ab Negative Hep B Core IgM Ab Negative Hepatitis C Ab Confirm >11.0 H 02/03/19 02/03/19 02/04/19 16:22 20:45 05:00 WBC 20.0 H RBC 3.48 L Hgb 11.2 L Hct 31.4 L MCV 90.2 MCH 32.2 H MCHC 35.7 RDW 11.7 RDW Differential 37.0 Plt Count 270 MPV 9.5 Immature Gran % (Auto) 1.300 H Neut % (Auto) 82.9 H Lymph % (Auto) 7.2 L Schleicher % (Auto) 8.4 Eos % (Auto) 0.1 Baso % (Auto) 0.1 Absolute Neuts (auto) 16.6 H Absolute Lymphs (auto) 1.45 Total Counted Not Reportable Diff Path Review May foll PT INR Sodium Potassium Chloride Carbon Dioxide Anion Gap BUN Creatinine Estim Creat Clear Calc Est GFR (MDRD) Af Amer Est GFR (MDRD) Non-Af BUN/Creatinine Ratio Glucose Lactic Acid 2.2 H 2.4 H Calcium Phosphorus Magnesium Total Bilirubin AST ALT Alkaline Phosphatase B-Natriuretic Peptide Total Protein Total Protein (PEP) Albumin Albumin (PEP) Globulin Globulin (PEP) Albumin/Globulin Ratio Albumin/Globulin (PEP) Vkxzw-9-Sodsfnetn Vdeqj-6-Btjgylsnc Beta Globulins Gamma Globulins M-Haris PEP Note PEP Interpretation Hepatitis A IgM Ab Hepatitis A Ab Total Hep Bs Antigen Hep B Core Total Ab Hep B Core IgM Ab Hepatitis C Ab Confirm 02/04/19 02/04/19 02/04/19 05:00 05:00 05:00 WBC RBC Hgb Hct MCV MCH MCHC RDW RDW Differential Plt Count MPV Immature Gran % (Auto) Neut % (Auto) Lymph % (Auto) Schleicher % (Auto) Eos % (Auto) Baso % (Auto) Absolute Neuts (auto) Absolute Lymphs (auto) Total Counted Diff Path Review PT 15.7 H INR 1.3 Sodium 133 L Potassium 3.8 Chloride 101 Carbon Dioxide 27.0 Anion Gap 5 BUN 12 Creatinine 0.60 L Estim Creat Clear Calc 145.44 Est GFR (MDRD) Af Amer 183 Est GFR (MDRD) Non-Af 151 BUN/Creatinine Ratio 20.1 H Glucose 104 Lactic Acid 1.0 Calcium 7.7 L Phosphorus 3.3 Magnesium 1.8 Total Bilirubin 0.60 AST 41 H ALT 18 Alkaline Phosphatase 136 H B-Natriuretic Peptide Total Protein 6.6 Total Protein (PEP) Albumin 1.7 L Albumin (PEP) Globulin 4.9 H Globulin (PEP) Albumin/Globulin Ratio 0.3 L Albumin/Globulin (PEP) Ehbjj-6-Hdkwxewpq Sxejj-5-Nrgwhmwsj Beta Globulins Gamma Globulins M-Haris PEP Note PEP Interpretation Hepatitis A IgM Ab Hepatitis A Ab Total Hep Bs Antigen Hep B Core Total Ab Hep B Core IgM Ab Hepatitis C Ab Confirm POC Glucose 02/04/19 02/03/19 02/03/19 06:45 22:32 18:11 POC Glucose 101 129 H 82 02/03/19 12:02 POC Glucose 154 H Clinical Impression(s) from Imaging Studies Abdomen/Pelvis CT 02/01/19 02:35 IMPRESSION: Indeterminate lingula and left lower lobe parenchymal changes may represent an inflammatory/infectious process, peripheral infarct cannot be on limited examination. These are likely new findings since previous examination allowing for changing technique. Consider CT examination chest for further detail. Trace fluid in the gallbladder fossa and posterior to the pancreas and superior retroperitoneum unchanged since 10/2018 of questionable significance. There is an indeterminant cortical lesion in the right mid kidney which was not present on previous examination and does not represent a simple cyst. Further assessment is recommended to exclude complex cyst versus early neoplasm. Other nonacute findings as outlined above. Electronically Signed: Carolyn Gamez MD at 5:34 EDT , Service support , Hand X-Ray 02/01/19 03:10 IMPRESSION: There is no acute displaced fracture or dislocation. Electronically Signed: Carolyn Gamez MD at 3:23 EDT , Service support , Chest X-Ray 02/01/19 05:40 IMPRESSION: No acute cardiopulmonary disease. No significant interval change. Electronically Signed: Carolyn Gamez MD at 6:29 EDT , Service support , Chest CT 02/02/19 08:07 IMPRESSION: There multiple bilateral cavitating pulmonary masses. Largest is in the RIGHT upper lung measuring 17 mm. These could be necrotic metastases or septic emboli. There is NO pleural effusion or pneumothorax. Normal heart and pericardium. There is LEFT axillary lymphadenopathy. Electronically Signed: David Wright MD at 6:14 EDT , Service support , Upper Extremity CT 02/02/19 09:54 IMPRESSION: Diffuse soft tissue cellulitis in the region of the thenar space with evidence of air bubbles along the dorsal aspect as well as possible abscess collection along the volar aspect of the thenar space. No radiopaque foreign body is seen. Electronically Signed: Nicolás Vinson, at 12:40 EDT , Service support , Knee X-Ray 02/02/19 10:00 IMPRESSION: 1. Small knee joint effusion 2. Mild patellofemoral compartment degenerative change. Electronically Signed: Rodolfo Veliz MD at 3:05 EDT Tel , Service support , Lumbar Spine MRI 02/02/19 18:00 IMPRESSION: L4-5 and L5-S1 degenerative changes more prominent at L5-S1, as described above. There is no definite discitis or osteomyelitis. A follow-up in 4-8 weeks may be warranted to ensure stability. Electronically Signed: Erik Monk, at 7:27 EDT Tel , Service support , Chest X-Ray 02/03/19 15:37 IMPRESSION: Worsening patchy infiltrates and pulmonary nodules some which are cavitated highly suspicious for infectious inflammatory, likely septic emboli. This should be correlated clinically. Electronically Signed: Eamon Anguiano, at 16:20 EDT Tel , Service support , Medical Necessity - Tobacco Use Smoking Status: Former smoker Tobacco Use: Non-smoker Assessment/Plan All Active Problems (Last Reviewed 02/01/19 @ 08:28 by Nan Saucedo DO) Sepsis (Acute) Cellulitis (Acute) Dehydration (Acute) Hypokalemia (Acute) MSSA bacteremia (Acute) Knee effusion, right (Acute) Knee pain, right (Acute) Acute pancreatitis (Resolved) Gastroenteritis (Resolved) RECOMMENDATIONS: 1. Continue antimicrobial coverage per infectious diseases recommendations. 2. Pain control per hospitalist. 3. Encourage incentive spirometer use while in bed. 4. Consider endoscopy once medically stable. IMPRESSIONS: 1. Severe sepsis secondary to staph bacteremia due to complex necrotizing diabetic hand abscess The patient presented with left hand swelling and erythema and is now POD #2 s/p excisional debridement. Blood cultures were noted to be positive for MSSA. Infectious diseases is currently following to assist with antimicrobial management. Repeat blood cultures are currently pending. Surface echocardiogram did not reveal evidence of valvular vegetations. The patient's right knee effusion was also tapped by orthopedics, who felt the fluid collection was reactive in nature. May need to consider additional surgical debridement or transesophageal echocardiogram if persistently bacteremic. 2. Abnormal chest CT with bilateral cavitary lung lesions The patient's CT chest was personally reviewed. The imaging findings seem most consistent with septic emboli in the setting of #1. I have a low clinical index of suspicion for underlying pulmonary TB. Continue antibiotics and supportive measures as noted above. Encourage incentive spirometer use while in bed. Repeat chest imaging again demonstrated patchy bilateral infiltrates with cavitary lesions concerning for septic emboli in the setting of #1. 3. Unintentional weight loss Concern for some form of occult underlying malignancy, especially in light of occult positive stools. Surgery to consider endoscopy once medically stabilized. 4. Personal history of HCV Hepatitis C PCR currently pending. ID is following. This note was generated with [id number] software. It may contain incorrect words, spelling, and punctuation that were not noted in checking the note before signing. Code Visit Inpatient E&M: 60305 Subs Hosp L2
[2019-02-04] MEDS: Magnesium Oxide 400 MG Tablet PO (08:12)
[2019-02-04 09:24] LABS: Amphetamine Urine VISTA NEGATIVE (<1000 ng/mL); Barbiturate Urine VISTA NEGATIVE (< 200 ng/mL); Benzodiazepine Urine VISTA NEGATIVE (< 200 ng/mL); Cocaine Urine VISTA NEGATIVE (< 300 ng/mL); Ecstacy Urine VISTA NEGATIVE (< 500 ng/mL); Methadone Urine VISTA NEGATIVE (< 300 ng/mL); PCP Urine VISTA NEGATIVE (< 25 ng/mL); THC Urine VISTA POSITIVE (< 50 ng/mL); Vista UDS pH Range 5
[2019-02-04] MEDS: Enoxaparin 40 MG/0.4 ML Syringe SC (10:12)
[2019-02-04] MEDS: Metoprolol Tartrate 25 MG Tablet PO ×2 (10:14→22:31)
[2019-02-04] MEDS: Glucerna Shake 120 ML LIQUID PO ×4 (10:14→22:41)
[2019-02-04] MEDS: Lisinopril 20 MG Tablet PO (10:14)
[2019-02-04] MEDS: Pantoprazole Sodium 40 MG Tablet PO ×2 (10:15→22:31)
--- NOTE | 2019-02-04 10:47 | PN.SURG_ITS ---
Patient Problems: Active and Suspected Problems (Last Reviewed 02/01/19 @ 08:28 by Nan Saucedo DO) Sepsis (Acute) Cellulitis (Acute) Dehydration (Acute) Hypokalemia (Acute) MSSA bacteremia (Acute) Knee effusion, right (Acute) Knee pain, right (Acute) Subjective: Postop #2 Patient has pain in his left hand but it is less and is improving slowly. Also is complaining of burning nerve pain and some spasm in his hand. - Physical Exam General: Alert, Oriented x3 HEENT: PERRLA, EOMI Oral: Moist Mucosa Neck: Supple Abdomen: Soft, Non-Distended Skin: Ulcer/ Wound - multiple wounds left thumb, thenar eminence, and dorsum left hand are stable. No further evidence of pus or infection noted. Swelling slowly resolving. Wounds redressed with Silver dressing. Dressing change was painful and patient needed IV analgesia. Neurological: Cranial nerves II-XII grossly intact Psych/Mental Status: Normal Affect, Appropriate Vital Signs Temp Pulse Resp BP Pulse Ox 98.1 F 86 18 146/87 H 96 02/04/19 09:00 02/04/19 10:14 02/04/19 09:00 02/04/19 10:14 02/04/19 09:00 Oxygen Flow Rate (L/min) 2 Oxygen Delivery Method Room Air Weight: 153 lb 14.122 oz Body Mass Index (BMI) 17.1 Finger Stick Blood Glucose 68 Intake and Output for Last 24 Hours 02/02/19 02/03/19 02/04/19 23:59 23:59 23:59 Intake Total 5667.6 / 5667.6 4629 / 4629 481 / 481 Balance 5667.6 / 5667.6 4629 / 4629 481 / 481 Microbiology Past 72 Hours 02/02/19 11:15 Gram Stain - Final Fluid - Other Body Fluid Culture - Preliminary No growth-Final to follow 02/02/19 18:00 Gram Stain - Final Tissue - Other Wound Culture - Final Staphylococcus aureus 02/02/19 09:47 Blood Culture - Preliminary Blood Culture (Wb) - Right Forearm Gram Positive Cocci 02/03/19 03:48 Gram Stain - Final Sputum, Expectorated/Coughed 02/01/19 02:30 Bacteria Detection (PCR) - Final Blood Culture (Wb) - Anticubital Right Staphylococcus aureus Blood Culture - Final Staphylococcus aureus 02/01/19 03:50 Blood Culture - Final Blood Culture (Wb) - Anticubital Left Staphylococcus aureus 02/01/19 17:08 Stool Occult Blood (LEONIE) - Final Stool Occult Blood Positive Laboratory Tests Past 24 Hrs 02/01/19 02/02/19 02/03/19 11:28 08:48 05:05 WBC RBC Hgb Hct MCV MCH MCHC RDW RDW Differential Plt Count MPV Immature Gran % (Auto) Neut % (Auto) Lymph % (Auto) [place] % (Auto) Eos % (Auto) Baso % (Auto) Absolute Neuts (auto) Absolute Lymphs (auto) Total Counted Diff Path Review PT INR Sodium Potassium Chloride Carbon Dioxide Anion Gap BUN Creatinine Estim Creat Clear Calc Est GFR (MDRD) Af Amer Est GFR (MDRD) Non-Af BUN/Creatinine Ratio Glucose Lactic Acid Calcium Phosphorus Magnesium Total Bilirubin AST ALT Alkaline Phosphatase B-Natriuretic Peptide 262.2 H Total Protein Total Protein (PEP) 6.7 Albumin Albumin (PEP) 2.2 L Globulin Globulin (PEP) 4.5 H Albumin/Globulin Ratio Albumin/Globulin (PEP) 0.5 L Zjqen-4-Xqqhnekwv 0.5 H Rhwte-2-Aepdyzarp 1.0 Beta Globulins 1.0 Gamma Globulins 2.0 H M-Haris PEP Note Comment PEP Interpretation Comment Ur Butalbital Screen Ur Butalbital Confirm Urine Opiates Screen Ur Opiates, Quant Ur Opiates Confirm Urine Codeine Confirm Urine Morphine Ur Morphine Confirm Urine Methadone Screen Ur Barbiturates Screen Urine Barbiturates Ur Barbiturate Confirm Ur Phencyclidine Scrn Urine PCP Confirm Ur PCP Confirm (GC/MS) U Phencyclidine Interp Ur Amphetamines Screen Urine Amphetamine U Amphetamines Confirm Urine Methamphetamines U Methamphetamin Confrm U Methamphetamin-MDMA Ur Amobarbital Screen Ur Amobarbital GC/MS U Pentobarbital Scrn U Pentobarbital GC/MS U Phenobarbital Scrn U Phenobarbital GC/MS U Secobarbital Screen U Secobarbital GC/MS U OH-Alprazolam Screen U OH-Alprazolam Confrm U Benzodiazepines Scrn U Benzodiazepine Confm Ur Nordiazepam Ur Nordiazepam GC/MS Ur Oxazepam Screen U Oxazepam Confm GC/MS Urine Cocaine Screen Urine Cocaine Urine Cocaine Confirm U Cocaine Metab Screen U Benzoylecgonine GC/MS U Cannabinoids Screen Urine Cannabinoids U Cannabinoids Confirm Ur Carboxy THC Confirm Ur Carboxy THC GC/MS Ur Drug Screen Comment Ethyl Alcohol Urine Ethyl Alcohol Hepatitis A IgM Ab Negative Hepatitis A Ab Total Negative Hep Bs Antigen Negative Hep B Core Total Ab Negative Hep B Core IgM Ab Negative Hepatitis C Ab Confirm >11.0 H 02/03/19 02/03/19 02/03/19 06:50 16:22 20:45 WBC RBC Hgb Hct MCV MCH MCHC RDW RDW Differential Plt Count MPV Immature Gran % (Auto) Neut % (Auto) Lymph % (Auto) [place] % (Auto) Eos % (Auto) Baso % (Auto) Absolute Neuts (auto) Absolute Lymphs (auto) Total Counted Diff Path Review PT INR Sodium Potassium Chloride Carbon Dioxide Anion Gap BUN Creatinine Estim Creat Clear Calc Est GFR (MDRD) Af Amer Est GFR (MDRD) Non-Af BUN/Creatinine Ratio Glucose Lactic Acid 2.2 H 2.4 H Calcium Phosphorus Magnesium Total Bilirubin AST ALT Alkaline Phosphatase B-Natriuretic Peptide Total Protein Total Protein (PEP) Albumin Albumin (PEP) Globulin Globulin (PEP) Albumin/Globulin Ratio Albumin/Globulin (PEP) Whxqv-5-Ynhhqgodh Lmake-0-Xiohzkack Beta Globulins Gamma Globulins M-Haris PEP Note PEP Interpretation Ur Butalbital Screen Cancelled Ur Butalbital Confirm Cancelled Urine Opiates Screen Ur Opiates, Quant Cancelled Ur Opiates Confirm Cancelled Urine Codeine Confirm Cancelled Urine Morphine Cancelled Ur Morphine Confirm Cancelled Urine Methadone Screen Ur Barbiturates Screen Urine Barbiturates Cancelled Ur Barbiturate Confirm Cancelled Ur Phencyclidine Scrn Urine PCP Confirm Cancelled Ur PCP Confirm (GC/MS) Cancelled U Phencyclidine Interp Cancelled Ur Amphetamines Screen Urine Amphetamine Cancelled U Amphetamines Confirm Cancelled Urine Methamphetamines Cancelled U Methamphetamin Confrm Cancelled U Methamphetamin-MDMA Ur Amobarbital Screen Cancelled Ur Amobarbital GC/MS Cancelled U Pentobarbital Scrn Cancelled U Pentobarbital GC/MS Cancelled U Phenobarbital Scrn Cancelled U Phenobarbital GC/MS Cancelled U Secobarbital Screen Cancelled U Secobarbital GC/MS Cancelled U OH-Alprazolam Screen Cancelled U OH-Alprazolam Confrm Cancelled U Benzodiazepines Scrn Cancelled U Benzodiazepine Confm Cancelled Ur Nordiazepam Cancelled Ur Nordiazepam GC/MS Cancelled Ur Oxazepam Screen Cancelled U Oxazepam Confm GC/MS Cancelled Urine Cocaine Screen Urine Cocaine Cancelled Urine Cocaine Confirm Cancelled U Cocaine Metab Screen Cancelled U Benzoylecgonine GC/MS Cancelled U Cannabinoids Screen Urine Cannabinoids Cancelled U Cannabinoids Confirm Cancelled Ur Carboxy THC Confirm Cancelled Ur Carboxy THC GC/MS Cancelled Ur Drug Screen Comment Ethyl Alcohol Cancelled Urine Ethyl Alcohol Cancelled Hepatitis A IgM Ab Hepatitis A Ab Total Hep Bs Antigen Hep B Core Total Ab Hep B Core IgM Ab Hepatitis C Ab Confirm 02/04/19 02/04/19 02/04/19 05:00 05:00 05:00 WBC 20.0 H RBC 3.48 L Hgb 11.2 L Hct 31.4 L MCV 90.2 MCH 32.2 H MCHC 35.7 RDW 11.7 RDW Differential 37.0 Plt Count 270 MPV 9.5 Immature Gran % (Auto) 1.300 H Neut % (Auto) 82.9 H Lymph % (Auto) 7.2 L [place] % (Auto) 8.4 Eos % (Auto) 0.1 Baso % (Auto) 0.1 Absolute Neuts (auto) 16.6 H Absolute Lymphs (auto) 1.45 Total Counted Not Reportable Diff Path Review February foll PT 15.7 H INR 1.3 Sodium 133 L Potassium 3.8 Chloride 101 Carbon Dioxide 27.0 Anion Gap 5 BUN 12 Creatinine 0.60 L Estim Creat Clear Calc 145.44 Est GFR (MDRD) Af Amer 183 Est GFR (MDRD) Non-Af 151 BUN/Creatinine Ratio 20.1 H Glucose 104 Lactic Acid Calcium 7.7 L Phosphorus 3.3 Magnesium 1.8 Total Bilirubin 0.60 AST 41 H ALT 18 Alkaline Phosphatase 136 H B-Natriuretic Peptide Total Protein 6.6 Total Protein (PEP) Albumin 1.7 L Albumin (PEP) Globulin 4.9 H Globulin (PEP) Albumin/Globulin Ratio 0.3 L Albumin/Globulin (PEP) Khrzk-3-Hjagduerw Fxzfa-8-Hwnsdjdwo Beta Globulins Gamma Globulins M-Haris PEP Note PEP Interpretation Ur Butalbital Screen Ur Butalbital Confirm Urine Opiates Screen Ur Opiates, Quant Ur Opiates Confirm Urine Codeine Confirm Urine Morphine Ur Morphine Confirm Urine Methadone Screen Ur Barbiturates Screen Urine Barbiturates Ur Barbiturate Confirm Ur Phencyclidine Scrn Urine PCP Confirm Ur PCP Confirm (GC/MS) U Phencyclidine Interp Ur Amphetamines Screen Urine Amphetamine U Amphetamines Confirm Urine Methamphetamines U Methamphetamin Confrm U Methamphetamin-MDMA Ur Amobarbital Screen Ur Amobarbital GC/MS U Pentobarbital Scrn U Pentobarbital GC/MS U Phenobarbital Scrn U Phenobarbital GC/MS U Secobarbital Screen U Secobarbital GC/MS U OH-Alprazolam Screen U OH-Alprazolam Confrm U Benzodiazepines Scrn U Benzodiazepine Confm Ur Nordiazepam Ur Nordiazepam GC/MS Ur Oxazepam Screen U Oxazepam Confm GC/MS Urine Cocaine Screen Urine Cocaine Urine Cocaine Confirm U Cocaine Metab Screen U Benzoylecgonine GC/MS U Cannabinoids Screen Urine Cannabinoids U Cannabinoids Confirm Ur Carboxy THC Confirm Ur Carboxy THC GC/MS Ur Drug Screen Comment Ethyl Alcohol Urine Ethyl Alcohol Hepatitis A IgM Ab Hepatitis A Ab Total Hep Bs Antigen Hep B Core Total Ab Hep B Core IgM Ab Hepatitis C Ab Confirm 02/04/19 02/04/19 05:00 08:00 WBC RBC Hgb Hct MCV MCH MCHC RDW RDW Differential Plt Count MPV Immature Gran % (Auto) Neut % (Auto) Lymph % (Auto) [place] % (Auto) Eos % (Auto) Baso % (Auto) Absolute Neuts (auto) Absolute Lymphs (auto) Total Counted Diff Path Review PT INR Sodium Potassium Chloride Carbon Dioxide Anion Gap BUN Creatinine Estim Creat Clear Calc Est GFR (MDRD) Af Amer Est GFR (MDRD) Non-Af BUN/Creatinine Ratio Glucose Lactic Acid 1.0 Calcium Phosphorus Magnesium Total Bilirubin AST ALT Alkaline Phosphatase B-Natriuretic Peptide Total Protein Total Protein (PEP) Albumin Albumin (PEP) Globulin Globulin (PEP) Albumin/Globulin Ratio Albumin/Globulin (PEP) Qpmiw-1-Nrpicboen Jrcbf-8-Pjxubzsyh Beta Globulins Gamma Globulins M-Haris PEP Note PEP Interpretation Ur Butalbital Screen Ur Butalbital Confirm Urine Opiates Screen POSITIVE H Ur Opiates, Quant Ur Opiates Confirm Urine Codeine Confirm Urine Morphine Ur Morphine Confirm Urine Methadone Screen NEGATIVE Ur Barbiturates Screen NEGATIVE Urine Barbiturates Ur Barbiturate Confirm Ur Phencyclidine Scrn NEGATIVE Urine PCP Confirm Ur PCP Confirm (GC/MS) U Phencyclidine Interp Ur Amphetamines Screen NEGATIVE Urine Amphetamine U Amphetamines Confirm Urine Methamphetamines U Methamphetamin Confrm U Methamphetamin-MDMA NEGATIVE Ur Amobarbital Screen Ur Amobarbital GC/MS U Pentobarbital Scrn U Pentobarbital GC/MS U Phenobarbital Scrn U Phenobarbital GC/MS U Secobarbital Screen U Secobarbital GC/MS U OH-Alprazolam Screen U OH-Alprazolam Confrm U Benzodiazepines Scrn NEGATIVE U Benzodiazepine Confm Ur Nordiazepam Ur Nordiazepam GC/MS Ur Oxazepam Screen U Oxazepam Confm GC/MS Urine Cocaine Screen NEGATIVE Urine Cocaine Urine Cocaine Confirm U Cocaine Metab Screen U Benzoylecgonine GC/MS U Cannabinoids Screen POSITIVE H Urine Cannabinoids U Cannabinoids Confirm Ur Carboxy THC Confirm Ur Carboxy THC GC/MS Ur Drug Screen Comment Ethyl Alcohol Urine Ethyl Alcohol Hepatitis A IgM Ab Hepatitis A Ab Total Hep Bs Antigen Hep B Core Total Ab Hep B Core IgM Ab Hepatitis C Ab Confirm POC Glucose 02/04/19 02/03/19 02/03/19 06:45 22:32 18:11 POC Glucose 101 129 H 82 02/03/19 12:02 POC Glucose 154 H Medical Necessity - Tobacco Use Smoking Status: Former smoker Tobacco Use: Non-smoker Assessment/Plan All Active Problems (Last Reviewed 02/01/19 @ 08:28 by Nan Saucedo DO) Sepsis (Acute) Cellulitis (Acute) Dehydration (Acute) Hypokalemia (Acute) MSSA bacteremia (Acute) Knee effusion, right (Acute) Knee pain, right (Acute) Acute pancreatitis (Resolved) Gastroenteritis (Resolved) 1. 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 2. Necrotizing diabetic abscess thenar emininence left palm extending through thenar muscles and first dorsal interosseous muscle. 3. Necrotizing diabetic abscess dorsum left hand at first webspace extending through first dorsal interosseous muscle and thenar muscles. 4. Suppurative flexor tenosynovitis. 5. Diabetes mellitus. 6. Sepsis. 7. s/p surgical preparation left thumb and thenar eminence and dorsum hand over first webspace with incision and drainage and excisional debridement complex necrotizing diabetic abscesses (33 cm2) and incision and drainage tendon sheath left thumb for suppurative flexor tenosynovitis and incision and drainage necrotizing diabetic abscess dorsum left thumb involving extensor tendon with tenosynovitis and incision and drainage necrotizing diabetic abscess thenar eminence left palm extending through thenar muscles (abductor pollicis brevis, flexor pollicis brevis, opponens pollicis, and adductor pollicis) and first dorsal interosseous muscle and incision and drainage necrotizing diabetic abscess first dorsal webspace left hand extending through first dorsal interosse ous muscle and thenar muscles (abductor pollicis brevis, flexor pollicis brevis, opponens pollicis, and adductor pollicis). Patient tolerated the Silver dressing change with some pain. He needed IV analgesia. He also complains of burning nerve pain and muscle spasm. Will add Neurontin and Valium. Swelling slowly resolving. Less than preop. No further pus seen in the wounds. With the severity arvind the infection, I anticipate the swelling will take several days to resolve. Operative culture shows Staphylococcus aureus thus far. Presently he is on Ancef and Cleocin. With the severity of the infection with pus diffuse throughout the thumb with suppurative flexor tenosynovitis and thenar space with extension to dorsum of hand, he will need IV antibiotics for 6 weeks. Infectious Diseases is on board for antibiotic management. Will evaluate the hand wounds closely. His WBC is decreasing slowly. Was 22.1 and now it is 20. His temps have stabilized as he has been afebrile last 24 hours. Depending on how he progresses over the next day or two, he may need another operative debridement and irrigation and drainage procedure. Patient is aware of that possibility. Keep left hand elevated. Patient will need aggressive OT for range of motion exercises, strengthening, and edema management after discharge to minimize stiffness. Patient is at high risk for residual stiffness in his left thumb and hand. Anticipate increased metabolic demands from the infection and the surgical wounds. Prealbumin was <3 Encourage nutritional supplementation with protein to help the healing process. With the complexity of the wound and the need for IV antibiotics, patient needs to go to an ECF. Evaluation in process.
--- NOTE | 2019-02-04 11:08 | CASEMGMT ---
SOCIAL WORK NOTE MET WITH PATIENT AT BEDSIDE TO DISCUSS SNF. PATIENT CALLED WITH THIS WORKER PRESENT IN ROOM. HAS NOT REVIEWED LIST AT THIS TIME AND WILL DO SO OVER THE WEEKEND. 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 AYLEEN ROME, INSURANCE APPRAISER, SEWER INSPECTOR.
--- NOTE | 2019-02-04 11:21 | PCM.PROGNOTE ---
Patient Problems: Active and Suspected Problems (Last Reviewed 02/01/19 @ 08:28 by Nan Saucedo DO) Sepsis (Acute) Cellulitis (Acute) Dehydration (Acute) Hypokalemia (Acute) MSSA bacteremia (Acute) Knee effusion, right (Acute) Knee pain, right (Acute) Subjective: All events of the past 24 hours of been reviewed. Tmax in the past 24 hours is 99.4 and his current temp is 98.1. Vital signs are stable and the blood pressure is coming under better control. Current blood pressure is 146/87. Oral intake was excellent yesterday. All lab was personally. The white blood cell count is down to 20,000 today with 83% neutrophils and 1.3% immature granulocytes. PT is 15.7. Sodium is mildly decreased at 133 and the remainder of the BMP is unremarkable. Lactic acid yesterday was increased at 2.4 at its peak but today is 1.0. AST is mildly increased at 41 with an ALT of 18. Bilirubin is normal and the alkaline phosphatase is very mildly increased at 136. Albumin is only 1.7 and the patient has been third spacing some fluids. Gram stain of the sputum yesterday showed 1+ white blood cells with 1+ gram-positive cocci. Urine culture and blood culture from 02/03/2019 is pending. The tissue culture done at the time of surgery is growing methicillin sensitive staph aureus. Patchy infiltrates were noted on repeat chest imaging this morning. He does have pneumonia with cavitations. Continues to complain of severe left hand pain. Requesting IV medication. Denies shortness of breath and also denies chest pain. Objective: PHYSICAL EXAM: GENERAL: alert, oriented X 3, Cooperative, more alert today, looks somewhat better, appears cachectic ORAL: moist mucosa, no mucosal lesions, poor dentition NECK: No JVD, supple, trachea midline LUNGS: Coarse rhonchi, symmetric chest expansion, no rales and no wheezes, not tachypneic, no accessory muscle use HEART: RRR, Normal S1 and S2, no rub, no gallop, no murmur appreciated ABDOMEN: soft, NT, ND, BS present, no guarding with palpation EXTREMITIES: no edema, no cyanosis, no calf tenderness, the right knee is swollen and has increased warmth to touch but I do not appreciate any erythema. SKIN: No rashes, no breakdown NEUROLOGIC: no focal neurologic deficits PSYCH: appropriate, normal affect, pleasant - Physical Exam Vital Signs Temp Pulse Resp BP Pulse Ox 98.1 F 86 18 146/87 H 96 02/04/19 09:00 02/04/19 10:57 02/04/19 09:00 02/04/19 10:14 02/04/19 10:57 Oxygen Flow Rate (L/min) 2 Oxygen Delivery Method Room Air Weight: 153 lb 14.122 oz Body Mass Index (BMI) 17.1 Finger Stick Blood Glucose 68 Intake and Output for Last 24 Hours 02/02/19 02/03/19 02/04/19 23:59 23:59 23:59 Intake Total 5667.6 / 5667.6 4629 / 4629 481 / 481 Balance 5667.6 / 5667.6 4629 / 4629 481 / 481 Microbiology Past 72 Hours 02/02/19 11:15 Gram Stain - Final Fluid - Other Body Fluid Culture - Preliminary No growth-Final to follow 02/02/19 18:00 Gram Stain - Final Tissue - Other Wound Culture - Final Staphylococcus aureus 02/02/19 09:47 Blood Culture - Preliminary Blood Culture (Wb) - Right Forearm Gram Positive Cocci 02/03/19 03:48 Gram Stain - Final Sputum, Expectorated/Coughed 02/01/19 02:30 Bacteria Detection (PCR) - Final Blood Culture (Wb) - Anticubital Right Staphylococcus aureus Blood Culture - Final Staphylococcus aureus 02/01/19 03:50 Blood Culture - Final Blood Culture (Wb) - Anticubital Left Staphylococcus aureus 02/01/19 17:08 Stool Occult Blood (LEONIE) - Final Stool Occult Blood Positive Laboratory Tests Past 24 Hrs 02/02/19 02/03/19 02/03/19 08:48 05:05 06:50 WBC RBC Hgb Hct MCV MCH MCHC RDW RDW Differential Plt Count MPV Immature Gran % (Auto) Neut % (Auto) Lymph % (Auto) [place] % (Auto) Eos % (Auto) Baso % (Auto) Absolute Neuts (auto) Absolute Lymphs (auto) Total Counted Diff Path Review PT INR Sodium Potassium Chloride Carbon Dioxide Anion Gap BUN Creatinine Estim Creat Clear Calc Est GFR (MDRD) Af Amer Est GFR (MDRD) Non-Af BUN/Creatinine Ratio Glucose Lactic Acid Calcium Phosphorus Magnesium Total Bilirubin AST ALT Alkaline Phosphatase B-Natriuretic Peptide 262.2 H Total Protein Albumin Globulin Albumin/Globulin Ratio Ur Butalbital Screen Cancelled Ur Butalbital Confirm Cancelled Urine Opiates Screen Ur Opiates, Quant Cancelled Ur Opiates Confirm Cancelled Urine Codeine Confirm Cancelled Urine Morphine Cancelled Ur Morphine Confirm Cancelled Urine Methadone Screen Ur Barbiturates Screen Urine Barbiturates Cancelled Ur Barbiturate Confirm Cancelled Ur Phencyclidine Scrn Urine PCP Confirm Cancelled Ur PCP Confirm (GC/MS) Cancelled U Phencyclidine Interp Cancelled Ur Amphetamines Screen Urine Amphetamine Cancelled U Amphetamines Confirm Cancelled Urine Methamphetamines Cancelled U Methamphetamin Confrm Cancelled U Methamphetamin-MDMA Ur Amobarbital Screen Cancelled Ur Amobarbital GC/MS Cancelled U Pentobarbital Scrn Cancelled U Pentobarbital GC/MS Cancelled U Phenobarbital Scrn Cancelled U Phenobarbital GC/MS Cancelled U Secobarbital Screen Cancelled U Secobarbital GC/MS Cancelled U [place]-Alprazolam Screen Cancelled U OH-Alprazolam Confrm Cancelled U Benzodiazepines Scrn Cancelled U Benzodiazepine Confm Cancelled Ur Nordiazepam Cancelled Ur Nordiazepam GC/MS Cancelled Ur Oxazepam Screen Cancelled U Oxazepam Confm GC/MS Cancelled Urine Cocaine Screen Urine Cocaine Cancelled Urine Cocaine Confirm Cancelled U Cocaine Metab Screen Cancelled U Benzoylecgonine GC/MS Cancelled U Cannabinoids Screen Urine Cannabinoids Cancelled U Cannabinoids Confirm Cancelled Ur Carboxy THC Confirm Cancelled Ur Carboxy THC GC/MS Cancelled Ur Drug Screen Comment Ethyl Alcohol Cancelled Urine Ethyl Alcohol Cancelled Hepatitis A IgM Ab Negative Hepatitis A Ab Total Negative Hep Bs Antigen Negative Hep B Core Total Ab Negative Hep B Core IgM Ab Negative Hepatitis C Ab Confirm >11.0 H 02/03/19 02/03/19 02/04/19 16:22 20:45 05:00 WBC 20.0 H RBC 3.48 L Hgb 11.2 L Hct 31.4 L MCV 90.2 MCH 32.2 H MCHC 35.7 RDW 11.7 RDW Differential 37.0 Plt Count 270 MPV 9.5 Immature Gran % (Auto) 1.300 H Neut % (Auto) 82.9 H Lymph % (Auto) 7.2 L [place] % (Auto) 8.4 Eos % (Auto) 0.1 Baso % (Auto) 0.1 Absolute Neuts (auto) 16.6 H Absolute Lymphs (auto) 1.45 Total Counted Not Reportable Diff Path Review May foll PT INR Sodium Potassium Chloride Carbon Dioxide Anion Gap BUN Creatinine Estim Creat Clear Calc Est GFR (MDRD) Af Amer Est GFR (MDRD) Non-Af BUN/Creatinine Ratio Glucose Lactic Acid 2.2 H 2.4 H Calcium Phosphorus Magnesium Total Bilirubin AST ALT Alkaline Phosphatase B-Natriuretic Peptide Total Protein Albumin Globulin Albumin/Globulin Ratio Ur Butalbital Screen Ur Butalbital Confirm Urine Opiates Screen Ur Opiates, Quant Ur Opiates Confirm Urine Codeine Confirm Urine Morphine Ur Morphine Confirm Urine Methadone Screen Ur Barbiturates Screen Urine Barbiturates Ur Barbiturate Confirm Ur Phencyclidine Scrn Urine PCP Confirm Ur PCP Confirm (GC/MS) U Phencyclidine Interp Ur Amphetamines Screen Urine Amphetamine U Amphetamines Confirm Urine Methamphetamines U Methamphetamin Confrm U Methamphetamin-MDMA Ur Amobarbital Screen Ur Amobarbital GC/MS U Pentobarbital Scrn U Pentobarbital GC/MS U Phenobarbital Scrn U Phenobarbital GC/MS U Secobarbital Screen U Secobarbital GC/MS U [place]-Alprazolam Screen U OH-Alprazolam Confrm U Benzodiazepines Scrn U Benzodiazepine Confm Ur Nordiazepam Ur Nordiazepam GC/MS Ur Oxazepam Screen U Oxazepam Confm GC/MS Urine Cocaine Screen Urine Cocaine Urine Cocaine Confirm U Cocaine Metab Screen U Benzoylecgonine GC/MS U Cannabinoids Screen Urine Cannabinoids U Cannabinoids Confirm Ur Carboxy THC Confirm Ur Carboxy THC GC/MS Ur Drug Screen Comment Ethyl Alcohol Urine Ethyl Alcohol Hepatitis A IgM Ab Hepatitis A Ab Total Hep Bs Antigen Hep B Core Total Ab Hep B Core IgM Ab Hepatitis C Ab Confirm 02/04/19 02/04/19 02/04/19 05:00 05:00 05:00 WBC RBC Hgb Hct MCV MCH MCHC RDW RDW Differential Plt Count MPV Immature Gran % (Auto) Neut % (Auto) Lymph % (Auto) [place] % (Auto) Eos % (Auto) Baso % (Auto) Absolute Neuts (auto) Absolute Lymphs (auto) Total Counted Diff Path Review PT 15.7 H INR 1.3 Sodium 133 L Potassium 3.8 Chloride 101 Carbon Dioxide 27.0 Anion Gap 5 BUN 12 Creatinine 0.60 L Estim Creat Clear Calc 145.44 Est GFR (MDRD) Af Amer 183 Est GFR (MDRD) Non-Af 151 BUN/Creatinine Ratio 20.1 H Glucose 104 Lactic Acid 1.0 Calcium 7.7 L Phosphorus 3.3 Magnesium 1.8 Total Bilirubin 0.60 AST 41 H ALT 18 Alkaline Phosphatase 136 H B-Natriuretic Peptide Total Protein 6.6 Albumin 1.7 L Globulin 4.9 H Albumin/Globulin Ratio 0.3 L Ur Butalbital Screen Ur Butalbital Confirm Urine Opiates Screen Ur Opiates, Quant Ur Opiates Confirm Urine Codeine Confirm Urine Morphine Ur Morphine Confirm Urine Methadone Screen Ur Barbiturates Screen Urine Barbiturates Ur Barbiturate Confirm Ur Phencyclidine Scrn Urine PCP Confirm Ur PCP Confirm (GC/MS) U Phencyclidine Interp Ur Amphetamines Screen Urine Amphetamine U Amphetamines Confirm Urine Methamphetamines U Methamphetamin Confrm U Methamphetamin-MDMA Ur Amobarbital Screen Ur Amobarbital GC/MS U Pentobarbital Scrn U Pentobarbital GC/MS U Phenobarbital Scrn U Phenobarbital GC/MS U Secobarbital Screen U Secobarbital GC/MS U [place]-Alprazolam Screen U OH-Alprazolam Confrm U Benzodiazepines Scrn U Benzodiazepine Confm Ur Nordiazepam Ur Nordiazepam GC/MS Ur Oxazepam Screen U Oxazepam Confm GC/MS Urine Cocaine Screen Urine Cocaine Urine Cocaine Confirm U Cocaine Metab Screen U Benzoylecgonine GC/MS U Cannabinoids Screen Urine Cannabinoids U Cannabinoids Confirm Ur Carboxy THC Confirm Ur Carboxy THC GC/MS Ur Drug Screen Comment Ethyl Alcohol Urine Ethyl Alcohol Hepatitis A IgM Ab Hepatitis A Ab Total Hep Bs Antigen Hep B Core Total Ab Hep B Core IgM Ab Hepatitis C Ab Confirm 02/04/19 08:00 WBC RBC Hgb Hct MCV MCH MCHC RDW RDW Differential Plt Count MPV Immature Gran % (Auto) Neut % (Auto) Lymph % (Auto) [place] % (Auto) Eos % (Auto) Baso % (Auto) Absolute Neuts (auto) Absolute Lymphs (auto) Total Counted Diff Path Review PT INR Sodium Potassium Chloride Carbon Dioxide Anion Gap BUN Creatinine Estim Creat Clear Calc Est GFR (MDRD) Af Amer Est GFR (MDRD) Non-Af BUN/Creatinine Ratio Glucose Lactic Acid Calcium Phosphorus Magnesium Total Bilirubin AST ALT Alkaline Phosphatase B-Natriuretic Peptide Total Protein Albumin Globulin Albumin/Globulin Ratio Ur Butalbital Screen Ur Butalbital Confirm Urine Opiates Screen POSITIVE H Ur Opiates, Quant Ur Opiates Confirm Urine Codeine Confirm Urine Morphine Ur Morphine Confirm Urine Methadone Screen NEGATIVE Ur Barbiturates Screen NEGATIVE Urine Barbiturates Ur Barbiturate Confirm Ur Phencyclidine Scrn NEGATIVE Urine PCP Confirm Ur PCP Confirm (GC/MS) U Phencyclidine Interp Ur Amphetamines Screen NEGATIVE Urine Amphetamine U Amphetamines Confirm Urine Methamphetamines U Methamphetamin Confrm U Methamphetamin-MDMA NEGATIVE Ur Amobarbital Screen Ur Amobarbital GC/MS U Pentobarbital Scrn U Pentobarbital GC/MS U Phenobarbital Scrn U Phenobarbital GC/MS U Secobarbital Screen U Secobarbital GC/MS U OH-Alprazolam Screen U OH-Alprazolam Confrm U Benzodiazepines Scrn NEGATIVE U Benzodiazepine Confm Ur Nordiazepam Ur Nordiazepam GC/MS Ur Oxazepam Screen U Oxazepam Confm GC/MS Urine Cocaine Screen NEGATIVE Urine Cocaine Urine Cocaine Confirm U Cocaine Metab Screen U Benzoylecgonine GC/MS U Cannabinoids Screen POSITIVE H Urine Cannabinoids U Cannabinoids Confirm Ur Carboxy THC Confirm Ur Carboxy THC GC/MS Ur Drug Screen Comment Ethyl Alcohol Urine Ethyl Alcohol Hepatitis A IgM Ab Hepatitis A Ab Total Hep Bs Antigen Hep B Core Total Ab Hep B Core IgM Ab Hepatitis C Ab Confirm POC Glucose 02/04/19 02/03/19 02/03/19 06:45 22:32 18:11 POC Glucose 101 129 H 82 02/03/19 12:02 POC Glucose 154 H Medical Necessity - Tobacco Use Smoking Status: Former smoker Tobacco Use: Non-smoker Assessment/Plan All Active Problems (Last Reviewed 02/01/19 @ 08:28 by Nan Saucedo DO) Necrotizing soft tissue infection (Acute) Abscess of dorsum of left hand (Acute) Abscess of bursa, left hand (Acute) Abscess of thumb, left (Acute) Suppurative tenosynovitis of flexor tendon of left hand (Acute) Sepsis (Acute) Cellulitis (Acute) Dehydration (Acute) Hypokalemia (Acute) MSSA bacteremia (Acute) Knee effusion, right (Acute) Knee pain, right (Acute) Acute pancreatitis (Resolved) Gastroenteritis (Resolved) Impressions 1. Sepsis secondary to cellulitis of the left hand with bacteremia secondary to methicillin sensitive staph aureus. BC on 02/02 still + for MSSA. If the culture from today is still + will likely need a ALIS. 2. necrotic infection with abscess of the 3. Controlled diabetes mellitus type 2 4. Pseudohyponatremia secondary to markedly increased blood sugar 5. Hypokalemia-resolved 6. Abdominal pain associated with nausea and sometimes emesis - better since started on a PPI 7. Anemia with heme positive stool 8. Hypomagnesemia 9. Malnutrition-severe 10. Dehydration - resolved 11. Hyperlipidemia 12. Hepatitis C antibody positive 13. Unintentional weight loss 14. Chronic back pain with lumbar canal stenosis at L4-5 and L5-S1 secondary to disc disease and facet arthropathy 15. Indeterminate cortical low attenuation change in the right mid cortex not seen on previous examination of 11/14/2018. The area measures 1.6 x 1.5 x 1.4 cm and is not a simple cyst. Malignancy cannot be ruled out at this time...Will need a bx going forward once infection is cleared. ? whether it could be an abscess? 16. Former smoker 17. right knee effusion-likely reactive arthritis 18. Multiple bilateral pulmonary cavitary lesions-due to septic emboli.....increased infiltrates today despite appropriate antibiotics 19. ST with a normal temp - EKG without evidence of ischemia. TSH normal at admission Continue Ancef and clindamycin Appreciate Dr. Cherry's help Dr. Rankin will likely need to take back to surgery again at some point and he is following daily Adjust insulin to get the blood sugars under 200 consistently Blood cultures have been positive for gram-positive cocci in clusters every day since admission. Repeat blood culture today Code Visit Inpatient E&M: 12605 Subs Hosp L3
[2019-02-04] MEDS: Insulin Lispro 100 UNIT/ML INSULN.PEN SC (11:45)
[2019-02-04 11:51] LABS: Bedside Glucose 174 mg/dL (70-110)
[2019-02-04] MEDS: Gabapentin 300 MG Capsule PO (17:19)
--- NOTE | 2019-02-04 17:45 | NURSING ---
Patient blood sugar 69. Didn't eat much supper due to patient feeling that he can't swallow well. Given glass of apple juice and 2 orange juices to drink. Tolerated fluids well. No episodes of coughing/choking noted. RN informed patient's primary nurse of same.
[2019-02-04 20:41] LABS: Bedside Glucose 69 mg/dL (70-110)
[2019-02-04 20:41] LABS: Bedside Glucose 60 mg/dL (70-110)
[2019-02-04] MEDS: Atorvastatin Calcium 40 MG Tablet PO (22:31)
[2019-02-04 22:50] LABS: Bedside Glucose 77 mg/dL (70-110)
[2019-02-05] VITALS (14 sets, daily range): BP systolic 135–157; BP diastolic 67–100; PULSE 89–108; RESP 16; TEMP 36.9–37.7; O2SAT 94–99; BMI 21.1
[2019-02-05] MEDS: HYDROmorphone 1 MG/ML Syringe 0.8 MG IV ×4 (01:00→12:52)
[2019-02-05] MEDS: 0.9% NaCl Peripheral Flush Adult/Peds IV ×5 (01:01→22:48)
[2019-02-05] MEDS: oxyCODONE 5 MG Tablet 10 MG PO ×5 (02:37→23:13)
[2019-02-05] MEDS: Cefazolin 2 GM in 0.9% Normal Saline 100 ML IV ×3 (05:10→21:30)
[2019-02-05 06:12] LABS: Hematocrit 24.8 % (40-54); Hemoglobin 8.8 g/dl (13.0-16.5); Mean Corp Hgb Conc 35.5 g/gl (32-36); Mean Corpuscular Hgb 32.2 pg (27.0-32.0); Mean Corpuscular Volume 90.8 fL (80-94); Mean Platelet Vol. 9.7 fl (6.2-12.0); Platelet Count 315 K/mm3 (150-450); RBC Distribution Width CV 11.6 % (11.6-14.6); Red Blood Count 2.73 M/mm3 (4.6-6.2); White Blood Count 19.7 K/mm3 (4.4-11.0)
[2019-02-05 06:20] LABS: Scan Indicated on CBC? Y/N NO
[2019-02-05 06:33] LABS: Anion Gap 6 (5-15); BUN 13 mg/dL (7-18); BUN/Creat Ratio 19.4 RATIO (10-20); Calcium,Total 7.4 mg/dL (8.5-10.1); Chloride 101 mmol/L (98-107); Creatinine, Serum 0.67 mg/dL (0.70-1.30); EST Glomerular Filtration Rate 132 mL/min (>60); Est Glom Filt Rate - Afr Amer 160 mL/min (>60); Estimated Creatinine Clearance 127.33 ml/min; Glucose 147 mg/dL (74-106); Potassium 3.6 mmol/L (3.5-5.1); Sodium Level 134 mmol/L (136-145)
[2019-02-05 07:05] LABS: Bedside Glucose 177 mg/dL (70-110)
--- NOTE | 2019-02-05 07:44 | PN_ITS ---
Patient Problems: Active and Suspected Problems (Last Reviewed 02/01/19 @ 08:28 by Nan Saucedo DO) Sepsis (Acute) Cellulitis (Acute) Dehydration (Acute) Hypokalemia (Acute) MSSA bacteremia (Acute) Knee effusion, right (Acute) Knee pain, right (Acute) Subjective: The patient was seen and examined at the bedside this morning. Events from the last 24 hours have been reviewed. The patient is currently afebrile, hemodynamically stable and maintaining appropriate oxygen saturations on room air. The patient still reports pain. Objective: The patient's most recent lab work, culture data and imaging studies have all been personally reviewed. Blood cultures dated February 01 are positive for staph aureus. CT abdomen/pelvis revealed trace fluid in the gallbladder fossa and posterior to the pancreas of questionable significance. The patient was also incidentally noted to have a cavitary lesion in the left lower lobe along with a vague nodular density in the lingula. Additionally, there was note of a right mid kidney cortical lesion which could represent a complex cyst versus early neoplasm. CT chest,obtained on February 02, revealed multiple bilateral cavitary pulmonary lesions, which appeared more peripherally based. Surface echocardiogram revealed normal LV size and thickness with an ejection fraction of 75%. L-spine MRI revealed degenerative changes without definitive evidence of discitis or osteomyelitis. - Physical Exam General: Alert, Cooperative, No apparent distress HEENT: Atraumatic, PERRLA, Normocephalic Oral: Moist Mucosa Neck: Supple, No Nodes, Trachea Midline Lungs: No wheeze, No rales, Diminished, - - Scant rhonchi Cardiovascular: Normal S1, Normal S2, No murmurs, Tachycardic Abdomen: Bowel Sounds Present, Soft, Non Tender Extremities: No clubbing, No cyanosis, - - Right knee effusion Skin: - - Left hand is wrapped. No significant change from previous. Musculoskeletal: Cachexia Lymphatic: No Cervical, Supraclavicular, or Inguinal Adenopathy Neurological: Cranial nerves II-XII grossly intact, Neuro grossly intact Psych/Mental Status: Normal Affect, Appropriate Vital Signs Temp Pulse Resp BP Pulse Ox 98.6 F 95 16 145/77 H 99 02/05/19 05:08 02/05/19 07:00 02/05/19 05:08 02/05/19 05:08 02/05/19 05:08 Oxygen Flow Rate (L/min) 2 Oxygen Delivery Method Room Air Weight: 164 lb 7.437 oz Body Mass Index (BMI) 17.1 Finger Stick Blood Glucose 68 Intake and Output for Last 24 Hours 02/03/19 02/04/19 02/05/19 23:59 23:59 23:59 Intake Total 4629 / 4629 993 / 993 953 / 953 Output Total 925 / 925 1250 / 1250 Balance 4629 / 4629 68 / 68 -297 / -297 Microbiology Past 72 Hours 02/03/19 13:00 Bacteria Detection (PCR) - Final Blood Culture (Wb) - Arm Left Staphylococcus aureus Blood Culture - Preliminary 02/02/19 11:15 Gram Stain - Final Fluid - Other Body Fluid Culture - Preliminary No growth-Final to follow Anaerobic Culture - Preliminary No growth in 48 hours. 02/03/19 06:50 Urine Culture - Preliminary Urine, Clean Catch Staphylococcus aureus 02/03/19 03:48 Gram Stain - Final Sputum, Expectorated/Coughed Respiratory Culture - Preliminary Staphylococcus aureus Presumptive C albicans 02/02/19 18:00 Gram Stain - Final Tissue - Other Wound Culture - Final Staphylococcus aureus 02/02/19 09:47 Blood Culture - Preliminary Blood Culture (Wb) - Right Forearm Gram Positive Cocci 02/01/19 02:30 Bacteria Detection (PCR) - Final Blood Culture (Wb) - Anticubital Right Staphylococcus aureus Blood Culture - Final Staphylococcus aureus 02/01/19 03:50 Blood Culture - Final Blood Culture (Wb) - Anticubital Left Staphylococcus aureus Laboratory Tests Past 24 Hrs 02/03/19 02/04/19 02/05/19 06:50 08:00 05:40 WBC 19.7 H RBC 2.73 L Hgb 8.8 L Hct 24.8 L MCV 90.8 MCH 32.2 H MCHC 35.5 RDW 11.6 RDW Differential 37.0 Plt Count 315 MPV 9.7 Sodium Potassium Chloride Carbon Dioxide Anion Gap BUN Creatinine Estim Creat Clear Calc Est GFR (MDRD) Af Amer Est GFR (MDRD) Non-Af BUN/Creatinine Ratio Glucose Calcium Ur Butalbital Screen Cancelled Ur Butalbital Confirm Cancelled Urine Opiates Screen POSITIVE H Ur Opiates, Quant Cancelled Ur Opiates Confirm Cancelled Urine Codeine Confirm Cancelled Urine Morphine Cancelled Ur Morphine Confirm Cancelled Urine Methadone Screen NEGATIVE Ur Barbiturates Screen NEGATIVE Urine Barbiturates Cancelled Ur Barbiturate Confirm Cancelled Ur Phencyclidine Scrn NEGATIVE Urine PCP Confirm Cancelled Ur PCP Confirm (GC/MS) Cancelled U Phencyclidine Interp Cancelled Ur Amphetamines Screen NEGATIVE Urine Amphetamine Cancelled U Amphetamines Confirm Cancelled Urine Methamphetamines Cancelled U Methamphetamin Confrm Cancelled U Methamphetamin-MDMA NEGATIVE Ur Amobarbital Screen Cancelled Ur Amobarbital GC/MS Cancelled U Pentobarbital Scrn Cancelled U Pentobarbital GC/MS Cancelled U Phenobarbital Scrn Cancelled U Phenobarbital GC/MS Cancelled U Secobarbital Screen Cancelled U Secobarbital GC/MS Cancelled U OH-Alprazolam Screen Cancelled U OH-Alprazolam Confrm Cancelled U Benzodiazepines Scrn Cancelled NEGATIVE U Benzodiazepine Confm Cancelled Ur Nordiazepam Cancelled Ur Nordiazepam GC/MS Cancelled Ur Oxazepam Screen Cancelled U Oxazepam Confm GC/MS Cancelled Urine Cocaine Screen NEGATIVE Urine Cocaine Cancelled Urine Cocaine Confirm Cancelled U Cocaine Metab Screen Cancelled U Benzoylecgonine GC/MS Cancelled U Cannabinoids Screen POSITIVE H Urine Cannabinoids Cancelled U Cannabinoids Confirm Cancelled Ur Carboxy THC Confirm Cancelled Ur Carboxy THC GC/MS Cancelled Ur Drug Screen Comment Ethyl Alcohol Cancelled Urine Ethyl Alcohol Cancelled 02/05/19 05:40 WBC RBC Hgb Hct MCV MCH MCHC RDW RDW Differential Plt Count MPV Sodium 134 L Potassium 3.6 Chloride 101 Carbon Dioxide 27.0 Anion Gap 6 BUN 13 Creatinine 0.67 L Estim Creat Clear Calc 127.33 Est GFR (MDRD) Af Amer 160 Est GFR (MDRD) Non-Af 132 BUN/Creatinine Ratio 19.4 Glucose 147 H Calcium 7.4 L Ur Butalbital Screen Ur Butalbital Confirm Urine Opiates Screen Ur Opiates, Quant Ur Opiates Confirm Urine Codeine Confirm Urine Morphine Ur Morphine Confirm Urine Methadone Screen Ur Barbiturates Screen Urine Barbiturates Ur Barbiturate Confirm Ur Phencyclidine Scrn Urine PCP Confirm Ur PCP Confirm (GC/MS) U Phencyclidine Interp Ur Amphetamines Screen Urine Amphetamine U Amphetamines Confirm Urine Methamphetamines U Methamphetamin Confrm U Methamphetamin-MDMA Ur Amobarbital Screen Ur Amobarbital GC/MS U Pentobarbital Scrn U Pentobarbital GC/MS U Phenobarbital Scrn U Phenobarbital GC/MS U Secobarbital Screen U Secobarbital GC/MS U OH-Alprazolam Screen U OH-Alprazolam Confrm U Benzodiazepines Scrn U Benzodiazepine Confm Ur Nordiazepam Ur Nordiazepam GC/MS Ur Oxazepam Screen U Oxazepam Confm GC/MS Urine Cocaine Screen Urine Cocaine Urine Cocaine Confirm U Cocaine Metab Screen U Benzoylecgonine GC/MS U Cannabinoids Screen Urine Cannabinoids U Cannabinoids Confirm Ur Carboxy THC Confirm Ur Carboxy THC GC/MS Ur Drug Screen Comment Ethyl Alcohol Urine Ethyl Alcohol POC Glucose 02/05/19 02/04/19 02/04/19 06:46 22:25 17:48 POC Glucose 177 H 77 69 L 02/04/19 02/04/19 17:15 11:43 POC Glucose 60 L 174 H Clinical Impression(s) from Imaging Studies Abdomen/Pelvis CT 02/01/19 02:35 IMPRESSION: Indeterminate lingula and left lower lobe parenchymal changes may represent an inflammatory/infectious process, peripheral infarct cannot be on limited examination. These are likely new findings since previous examination allowing for changing technique. Consider CT examination chest for further detail. Trace fluid in the gallbladder fossa and posterior to the pancreas and superior retroperitoneum unchanged since 10/2018 of questionable significance. There is an indeterminant cortical lesion in the right mid kidney which was not present on previous examination and does not represent a simple cyst. Further assessment is recommended to exclude complex cyst versus early neoplasm. Other nonacute findings as outlined above. Electronically Signed: Carolyn Gamez MD at 5:34 EDT , Service support , Hand X-Ray 02/01/19 03:10 IMPRESSION: There is no acute displaced fracture or dislocation. Electronically Signed: Carolyn Gamez MD at 3:23 EDT , Service support , Chest X-Ray 02/01/19 05:40 IMPRESSION: No acute cardiopulmonary disease. No significant interval change. Electronically Signed: Carolyn Gamez MD at 6:29 EDT , Service support , Chest CT 02/02/19 08:07 IMPRESSION: There multiple bilateral cavitating pulmonary masses. Largest is in the RIGHT upper lung measuring 17 mm. These could be necrotic metastases or septic emboli. There is NO pleural effusion or pneumothorax. Normal heart and pericardium. There is LEFT axillary lymphadenopathy. Electronically Signed: David Wright MD at 6:14 EDT , Service support , Upper Extremity CT 02/02/19 09:54 IMPRESSION: Diffuse soft tissue cellulitis in the region of the thenar space with evidence of air bubbles along the dorsal aspect as well as possible abscess collection along the volar aspect of the thenar space. No radiopaque foreign body is seen. Electronically Signed: Nicolás Vinson, at 12:40 EDT , Service support , Knee X-Ray 02/02/19 10:00 IMPRESSION: 1. Small knee joint effusion 2. Mild patellofemoral compartment degenerative change. Electronically Signed: Rodolfo Veliz MD at 3:05 EDT Tel , Service support , Lumbar Spine MRI 02/02/19 18:00 IMPRESSION: L4-5 and L5-S1 degenerative changes more prominent at L5-S1, as described above. There is no definite discitis or osteomyelitis. A follow-up in 4-8 weeks may be warranted to ensure stability. Electronically Signed: Erik Monk, at 7:27 EDT Tel , Service support , Chest X-Ray 02/03/19 15:37 IMPRESSION: Worsening patchy infiltrates and pulmonary nodules some which are cavitated highly suspicious for infectious inflammatory, likely septic emboli. This should be correlated clinically. Electronically Signed: Eamon Anguiano, at 16:20 EDT Tel , Service support , Medical Necessity - Tobacco Use Smoking Status: Former smoker Tobacco Use: Non-smoker Assessment/Plan All Active Problems (Last Reviewed 02/01/19 @ 08:28 by Nan Saucedo DO) Necrotizing soft tissue infection (Acute) Abscess of dorsum of left hand (Acute) Abscess of bursa, left hand (Acute) Abscess of thumb, left (Acute) Suppurative tenosynovitis of flexor tendon of left hand (Acute) Sepsis (Acute) Cellulitis (Acute) Dehydration (Acute) Hypokalemia (Acute) MSSA bacteremia (Acute) Knee effusion, right (Acute) Knee pain, right (Acute) Acute pancreatitis (Resolved) Gastroenteritis (Resolved) RECOMMENDATIONS: 1. Continue antimicrobial coverage per infectious diseases recommendations. 2. Pain control per hospitalist. 3. Encourage incentive spirometer use while in bed. 4. Consider endoscopy once medically stable. IMPRESSIONS: 1. Severe sepsis secondary to staph bacteremia due to complex necrotizing diabetic hand abscess The patient presented with left hand swelling and erythema and is now POD #3 s/p excisional debridement. Blood cultures were noted to be positive for MSSA. Infectious diseases is currently following to assist with antimicrobial management. Repeat blood cultures remain positive for staph. Surface echocardiogram did not reveal evidence of valvular vegetations. The patient's right knee effusion was also tapped by orthopedics, who felt the fluid collec tion was reactive in nature. May need to consider additional surgical debridement or transesophageal echocardiogram if persistently bacteremic. 2. Abnormal chest CT with bilateral cavitary lung lesions The patient's CT chest was personally reviewed. The imaging findings seem most consistent with septic emboli in the setting of #1. I have a low clinical index of suspicion for underlying pulmonary TB. Continue antibiotics and supportive measures as noted above. Encourage incentive spirometer use while in bed. Repeat chest imaging again demonstrated patchy bilateral infiltrates with cavitary lesions concerning for septic emboli in the setting of #1. 3. Unintentional weight loss Concern for some form of occult underlying malignancy, especially in light of occult positive stools. Surgery to consider endoscopy once medically stabilized. 4. Personal history of HCV Hepatitis C PCR currently pending. ID is following. This note was generated with [employer] software. It may contain incorrect words, spelling, and punctuation that were not noted in checking the note before signing. Code Visit Inpatient E&M: 11194 Subs Hosp L2
[2019-02-05] MEDS: Insulin Lispro 100 UNIT/ML INSULN.PEN SC ×2 (08:55→11:42)
[2019-02-05] MEDS: Gabapentin 300 MG Capsule PO ×3 (08:55→16:24)
[2019-02-05] MEDS: Glucerna Shake 120 ML LIQUID PO ×4 (08:55→21:49)
[2019-02-05] MEDS: Magnesium Oxide 400 MG Tablet PO (08:55)
[2019-02-05] MEDS: Enoxaparin 40 MG/0.4 ML Syringe SC (08:56)
[2019-02-05] MEDS: Pantoprazole Sodium 40 MG Tablet PO ×2 (08:56→21:48)
[2019-02-05] MEDS: Metoprolol Tartrate 25 MG Tablet PO ×2 (08:56→21:48)
[2019-02-05] MEDS: Lisinopril 20 MG Tablet PO (08:57)
[2019-02-05 10:56] LABS: HCV log 10 6.874 (.)
[2019-02-05 11:51] LABS: Bedside Glucose 237 mg/dL (70-110)
--- NOTE | 2019-02-05 13:18 | PCM.PN.SRG ---
Patient Problems: Active and Suspected Problems (Last Reviewed 02/01/19 @ 08:28 by Nan Saucedo DO) Sepsis (Acute) Cellulitis (Acute) Dehydration (Acute) Hypokalemia (Acute) MSSA bacteremia (Acute) Knee effusion, right (Acute) Knee pain, right (Acute) Subjective: Postop #3 Patient complains of hand pain. Less than preop. Still has pain with the Silver dressing changes. Needs IV analgesia. - Physical Exam General: Alert, Oriented x3 HEENT: PERRLA, EOMI Oral: Moist Mucosa Neck: Supple Abdomen: Soft, Non-Distended Skin: Ulcer/ Wound - multiple wounds left thumb, thenar eminence, and dorsum left hand are stable. No further evidence of pus or infection noted. Swelling slowly resolving. Some granulation tissue seen. Irrigated wounds with saline. Tolerated reasonably well. Wounds redressed with Silver dressing. Dressing change was painful and patient needed IV analgesia. Neurological: Cranial nerves II-XII grossly intact Psych/Mental Status: Normal Affect, Appropriate Vital Signs Temp Pulse Resp BP Pulse Ox 99.0 F 104 H 16 135/77 H 96 02/05/19 08:50 02/05/19 08:56 02/05/19 08:50 02/05/19 08:50 02/05/19 08:50 Oxygen Flow Rate (L/min) 2 Oxygen Delivery Method Room Air Weight: 164 lb 7.437 oz Body Mass Index (BMI) 17.1 Finger Stick Blood Glucose 68 Intake and Output for Last 24 Hours 02/03/19 02/04/19 02/05/19 23:59 23:59 23:59 Intake Total 4629 / 4629 993 / 993 953 / 953 Output Total 925 / 925 1500 / 1500 Balance 4629 / 4629 68 / 68 -547 / -547 Microbiology Past 72 Hours 02/03/19 03:48 Gram Stain - Final Sputum, Expectorated/Coughed Respiratory Culture - Preliminary Staphylococcus aureus Presumptive C albicans 02/03/19 06:50 Urine Culture - Final Urine, Clean Catch Staphylococcus aureus 02/03/19 13:00 Bacteria Detection (PCR) - Final Blood Culture (Wb) - Arm Left Staphylococcus aureus Blood Culture - Preliminary 02/02/19 11:15 Gram Stain - Final Fluid - Other Body Fluid Culture - Preliminary No growth-Final to follow Anaerobic Culture - Preliminary No growth in 48 hours. 02/02/19 18:00 Gram Stain - Final Tissue - Other Wound Culture - Final Staphylococcus aureus 02/02/19 09:47 Blood Culture - Preliminary Blood Culture (Wb) - Right Forearm Gram Positive Cocci 02/01/19 02:30 Bacteria Detection (PCR) - Final Blood Culture (Wb) - Anticubital Right Staphylococcus aureus Blood Culture - Final Staphylococcus aureus 02/01/19 03:50 Blood Culture - Final Blood Culture (Wb) - Anticubital Left Staphylococcus aureus Laboratory Tests Past 24 Hrs 02/03/19 02/05/19 02/05/19 05:05 05:40 05:40 WBC 19.7 H RBC 2.73 L Hgb 8.8 L Hct 24.8 L MCV 90.8 MCH 32.2 H MCHC 35.5 RDW 11.6 RDW Differential 37.0 Plt Count 315 MPV 9.7 Sodium 134 L Potassium 3.6 Chloride 101 Carbon Dioxide 27.0 Anion Gap 6 BUN 13 Creatinine 0.67 L Estim Creat Clear Calc 127.33 Est GFR (MDRD) Af Amer 160 Est GFR (MDRD) Non-Af 132 BUN/Creatinine Ratio 19.4 Glucose 147 H Calcium 7.4 L HCV RNA Quant (PCR) [id number] HCV RNA (PCR) log10 6.874 Hepatitis C RNA Comment Comment POC Glucose 02/05/19 02/05/19 02/04/19 11:41 06:46 22:25 POC Glucose 237 H 177 H 77 02/04/19 02/04/19 17:48 17:15 POC Glucose 69 L 60 L Medical Necessity - Tobacco Use Smoking Status: Former smoker Tobacco Use: Non-smoker Assessment/Plan All Active Problems (Last Reviewed 02/01/19 @ 08:28 by Nan Saucedo DO) Necrotizing soft tissue infection (Acute) Abscess of dorsum of left hand (Acute) Abscess of bursa, left hand (Acute) Abscess of thumb, left (Acute) Suppurative tenosynovitis of flexor tendon of left hand (Acute) Sepsis (Acute) Cellulitis (Acute) Dehydration (Acute) Hypokalemia (Acute) MSSA bacteremia (Acute) Knee effusion, right (Acute) Knee pain, right (Acute) Acute pancreatitis (Resolved) Gastroenteritis (Resolved) 1. 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 2. Necrotizing diabetic abscess thenar emininence left palm extending through thenar muscles and first dorsal interosseous muscle. 3. Necrotizing diabetic abscess dorsum left hand at first webspace extending through first dorsal interosseous muscle and thenar muscles. 4. Suppurative flexor tenosynovitis. 5. Diabetes mellitus. 6. Sepsis. 7. s/p surgical preparation left thumb and thenar eminence and dorsum hand over first webspace with incision and drainage and excisional debridement complex necrotizing diabetic abscesses (33 cm2) and incision and drainage tendon sheath left thumb for suppurative flexor tenosynovitis and incision and drainage necrotizing diabetic abscess dorsum left thumb involving extensor tendon with tenosynovitis and incision and drainage necrotizing diabetic abscess thenar eminence left palm extending through thenar muscles (abductor pollicis brevis, flexor pollicis brevis, opponens pollicis, and adductor pollicis) and first dorsal interosseous muscle and incision and drainage necrotizing diabetic abscess first dorsal webspace left hand extending through first dorsal interosseous muscle and thenar muscles (abductor pollicis brevis, flexor pollicis brevis, opponens pollicis, and adductor pollicis). 8. Anemia of chronic disease, acute on chronic. Patient tolerated the Silver dressing change with some pain. He needed IV analgesia. Will increase the dose. He also complains of burning nerve pain and muscle spasm. Neurontin will be increased. He has declined the Valium. Swelling slowly resolving. Less than preop. No further pus seen in the wounds. With the severity arvind the infection, I anticipate the swelling will take several days to resolve. I irrigated the wounds with saline today. Some granulation tissue seen. Operative culture shows Staphylococcus aureus thus far. Presently he is on Ancef and Cleocin. With the severity of the infection with pus diffuse throughout the thumb with suppurative flexor tenosynovitis and thenar space with extension to dorsum of hand, he will need IV antibiotics for 6 weeks. Infectious Diseases is on board for antibiotic management. Will evaluate the hand wounds closely. His WBC is decreasing slowly. Was 20 and now it is 19.7. His temps have stabilized as he has been afebrile last 48 hours. The WBC is decreasing but very slowly. Will plan on another operative debridement and irrigation and drainage procedure. Will schedule for tomorrow. Patient voices understanding. He also understands that additional incisions may be necessary. Keep left hand elevated. Patient will need aggressive OT for range of motion exercises, strengthening, and edema management after discharge to minimize stiffness. Patient is at high risk for residual stiffness in his left thumb and hand. Anticipate increased metabolic demands from the infection and the surgical wounds. Prealbumin was <3 Encourage nutritional supplementation with protein to help the healing process. With the complexity of the wound and the need for IV antibiotics, patient needs to go to an ECF. Evaluation in process. Patient was informed of the risks and complications of the procedure including alternatives to surgery. These were discussed with the patient personally. Patient voices understanding and wishes to proceed. Some of the risks and complications that were discussed included but were not inclusive of failure to diagnose including symptom relief, pain, infection, numbness, stiffness, loss of digit, RSD (CRPS), need for further surgery, contracture, and wound healing problems.
[2019-02-05] MEDS: HYDROmorphone 1 MG/ML Syringe IV ×3 (16:22→22:48)
[2019-02-05 17:26] LABS: Bedside Glucose 95 mg/dL (70-110)
--- NOTE | 2019-02-05 20:40 | PCM.PROGNOTE ---
Patient Problems: Active and Suspected Problems (Last Reviewed 02/01/19 @ 08:28 by Nan Saucedo DO) Sepsis (Acute) Cellulitis (Acute) Dehydration (Acute) Hypokalemia (Acute) MSSA bacteremia (Acute) Knee effusion, right (Acute) Knee pain, right (Acute) Subjective: All events of the past 24 have been reviewed Blood cultures are still positive for methicillin sensitive staph aureus. He remains afebrile with stable vital signs. White blood cell count remains elevated at 19.7. Blood sugars are coming under better control. Hemoglobin is 8.8 today. Continues to complain of left hand pain and inadequate pain relief however he looks better and does not appear to be in any significant pain. Objective: GENERAL: alert, oriented X 3, Cooperative, more alert today, looks somewhat better, appears cachectic ORAL: moist mucosa, no mucosal lesions, poor dentition NECK: No JVD, supple, trachea midline LUNGS: Clear to auscultation but diminished , symmetric chest expansion, no rales and no wheezes, not tachypneic, no accessory muscle use HEART: RRR, Normal S1 and S2, no rub, no gallop, no murmur appreciated ABDOMEN: soft, NT, ND, BS present, no guarding with palpation EXTREMITIES: no edema, no cyanosis, no calf tenderness, the right knee is swollen and has increased warmth to touch but I do not appreciate any erythema. The left hand was examined with Dr. Rankin today. There is no odor. No further evidence of pus noted. Swelling has improved. The wound was irrigated with saline and the patient tolerated this reasonably well. SKIN: No rashes, no breakdown NEUROLOGIC: no focal neurologic deficits PSYCH: appropriate, normal affect, pleasant - Physical Exam Vital Signs Temp Pulse Resp BP Pulse Ox 99.8 F H 106 H 16 157/83 H 94 02/05/19 19:35 02/05/19 19:35 02/05/19 19:35 02/05/19 19:35 02/05/19 19:35 Oxygen Flow Rate (L/min) 2 Oxygen Delivery Method Room Air Weight: 164 lb 7.437 oz Body Mass Index (BMI) 17.1 Finger Stick Blood Glucose 68 Intake and Output for Last 24 Hours 02/03/19 02/04/19 02/05/19 23:59 23:59 23:59 Intake Total 4629 / 4629 993 / 993 953 / 953 Output Total 925 / 925 2350 / 2350 Balance 4629 / 4629 68 / 68 -1397 / -1397 Microbiology Past 72 Hours 02/04/19 12:00 Blood Culture - Preliminary Blood Culture (Wb) - Arm Right 02/03/19 03:48 Gram Stain - Final Sputum, Expectorated/Coughed Respiratory Culture - Preliminary Staphylococcus aureus Presumptive C albicans 02/03/19 06:50 Urine Culture - Final Urine, Clean Catch Staphylococcus aureus 02/03/19 13:00 Bacteria Detection (PCR) - Final Blood Culture (Wb) - Arm Left Staphylococcus aureus Blood Culture - Preliminary 02/02/19 11:15 Gram Stain - Final Fluid - Other Body Fluid Culture - Preliminary No growth-Final to follow Anaerobic Culture - Preliminary No growth in 48 hours. 02/02/19 18:00 Gram Stain - Final Tissue - Other Wound Culture - Final Staphylococcus aureus 02/02/19 09:47 Blood Culture - Preliminary Blood Culture (Wb) - Right Forearm Gram Positive Cocci 02/01/19 02:30 Bacteria Detection (PCR) - Final Blood Culture (Wb) - Anticubital Right Staphylococcus aureus Blood Culture - Final Staphylococcus aureus Laboratory Tests Past 24 Hrs 02/03/19 02/05/19 02/05/19 05:05 05:40 05:40 WBC 19.7 H RBC 2.73 L Hgb 8.8 L Hct 24.8 L MCV 90.8 MCH 32.2 H MCHC 35.5 RDW 11.6 RDW Differential 37.0 Plt Count 315 MPV 9.7 Sodium 134 L Potassium 3.6 Chloride 101 Carbon Dioxide 27.0 Anion Gap 6 BUN 13 Creatinine 0.67 L Estim Creat Clear Calc 127.33 Est GFR (MDRD) Af Amer 160 Est GFR (MDRD) Non-Af 132 BUN/Creatinine Ratio 19.4 Glucose 147 H Calcium 7.4 L HCV RNA Quant (PCR) [id number] HCV RNA (PCR) log10 6.874 Hepatitis C RNA Comment Comment POC Glucose 02/05/19 02/05/19 02/05/19 16:26 11:41 06:46 POC Glucose 95 237 H 177 H 02/04/19 02/04/19 02/04/19 22:25 17:48 17:15 POC Glucose 77 69 L 60 L Medical Necessity - Tobacco Use Smoking Status: Former smoker Tobacco Use: Non-smoker Assessment/Plan All Active Problems (Last Reviewed 02/01/19 @ 08:28 by Nan Saucedo DO) Necrotizing soft tissue infection (Acute) Abscess of dorsum of left hand (Acute) Abscess of bursa, left hand (Acute) Abscess of thumb, left (Acute) Suppurative tenosynovitis of flexor tendon of left hand (Acute) Sepsis (Acute) Cellulitis (Acute) Dehydration (Acute) Hypokalemia (Acute) MSSA bacteremia (Acute) Knee effusion, right (Acute) Knee pain, right (Acute) Acute pancreatitis (Resolved) Gastroenteritis (Resolved) Impressions 1. Sepsis secondary to cellulitis of the left hand with bacteremia secondary to methicillin sensitive staph aureus. BC on 02/02 still + for MSSA. If the culture from today is still + will likely need a ALIS. 2. necrotic infection with abscess of the 3. Controlled diabetes mellitus type 2 4. Pseudohyponatremia secondary to markedly increased blood sugar 5. Hypokalemia-resolved 6. Abdominal pain associated with nausea and sometimes emesis - better since started on a PPI 7. Anemia with heme positive stool 8. Hypomagnesemia 9. Malnutrition-severe 10. Dehydration - resolved 11. Hyperlipidemia 12. Hepatitis C antibody positive 13. Unintentional weight loss 14. Chronic back pain with lumbar canal stenosis at L4-5 and L5-S1 secondary to disc disease and facet arthropathy 15. Indeterminate cortical low attenuation change in the right mid cortex not seen on previous examination of 11/14/2018. The area measures 1.6 x 1.5 x 1.4 cm and is not a simple cyst. Malignancy cannot be ruled out at this time...Will need a bx going forward once infection is cleared. ? whether it could be an abscess? 16. Former smoker 17. right knee effusion-likely reactive arthritis 18. Multiple bilateral pulmonary cavitary lesions-due to septic emboli.....increased infiltrates today despite appropriate antibiotics 19. ST with a normal temp - EKG without evidence of ischemia. TSH normal at admission Continue Ancef and clindamycin Appreciate Dr. Cherry's help Dr. Rankin will likely take him back to surgery on 02/06/2019 for washout and further debridement Adjust insulin to get the blood sugars under 200 consistently Blood cultures have been positive for gram-positive cocci in clusters every day since admission. This was discussed with Dr. Delgado and we requested ALIS to be scheduled for Wednesday. Repeat blood culture today Code Visit Inpatient E&M: 26730 Subs Hosp L2
[2019-02-05] MEDS: Atorvastatin Calcium 40 MG Tablet PO (21:48)
[2019-02-05] MEDS: diazePAM 5 MG Tablet PO (21:49)
[2019-02-05 22:01] LABS: Bedside Glucose 123 mg/dL (70-110)
[2019-02-06] VITALS (26 sets, daily range): BP systolic 117–185; BP diastolic 62–95; PULSE 79–106; RESP 14–20; TEMP 36.3–37.2; O2SAT 96–100
[2019-02-06] MEDS: HYDROmorphone 1 MG/ML Syringe IV ×2 (02:41→05:51)
[2019-02-06] MEDS: 0.9% NaCl Peripheral Flush Adult/Peds IV ×3 (02:41→05:44)
[2019-02-06] MEDS: oxyCODONE 5 MG Tablet 10 MG PO ×2 (04:03→21:02)
[2019-02-06] MEDS: diazePAM 5 MG Tablet PO (04:04)
[2019-02-06] MEDS: Cefazolin 2 GM in 0.9% Normal Saline 100 ML IV ×3 (05:51→21:01)
--- NOTE | 2019-02-06 05:55 | EKG12_ITS ---
Test Reason : AM EKG Blood Pressure : / mmHG Vent. Rate : 091 BPM Atrial Rate : 091 BPM P-R Int : 166 ms QRS Dur : 084 ms QT Int : 358 ms P-R-T Axes : 053 -30 046 degrees QTc Int : 440 ms Normal sinus rhythm Left axis deviation Abnormal ECG When compared with ECG of 03-FEB-2019 16:01, MANUAL COMPARISON REQUIRED, DATA IS UNCONFIRMED Confirmed by ROSEANNA WILKES, BARRIE ([id number]), development editor MARISELA HEBERT ([id number] on 02/08/2019 10:01:07 AM Referred By: DEE Confirmed By:BARRIE CONDON MD
[2019-02-06 06:25] LABS: Hematocrit 25.2 % (40-54); Mean Corp Hgb Conc 35.7 g/gl (32-36); Mean Corpuscular Hgb 32.3 pg (27.0-32.0); Mean Corpuscular Volume 90.3 fL (80-94); Mean Platelet Vol. 9.7 fl (6.2-12.0); Platelet Count 325 K/mm3 (150-450); RBC Distribution Width CV 11.5 % (11.6-14.6); RBC Distribution Width SD 36.7 fl (35.1-43.9); Red Blood Count 2.79 M/mm3 (4.6-6.2); White Blood Count 24.1 K/mm3 (4.4-11.0)
[2019-02-06 06:28] LABS: AST(SGOT) 45 U/L (15-37); Alanine Aminotransfer ALT/SGPT 15 U/L (16-61); Albumin, Serum 1.6 g/dL (3.2-5.0); Alkaline Phosphatase 179 U/L (45-117); Anion Gap 6 (5-15); BUN 12 mg/dL (7-18); BUN/Creat Ratio 19.2 RATIO (10-20); Bilirubin, Direct 0.39 mg/dL (0.00-0.30); Calcium,Total 7.9 mg/dL (8.5-10.1); Chloride 100 mmol/L (98-107); Creatinine, Serum 0.62 mg/dL (0.70-1.30); EST Glomerular Filtration Rate 143 mL/min (>60); Est Glom Filt Rate - Afr Amer 173 mL/min (>60); Estimated Creatinine Clearance 147.06 ml/min; Globulin 5.1 g/dL (2.2-4.2); Glucose 161 mg/dL (74-106); Potassium 3.9 mmol/L (3.5-5.1); Protein, Total 6.7 g/dL (6.4-8.2); Sodium Level 134 mmol/L (136-145)
[2019-02-06 06:38] LABS: Scan Indicated on CBC? Y/N NO
[2019-02-06 07:01] LABS: Bedside Glucose 162 mg/dL (70-110)
[2019-02-06 07:31] LABS: Erythrocyte Sedimentation Rate 68 mm/hr (0-20)
--- NOTE | 2019-02-06 08:00 | ECHOTEE_ITS ---
Reason For Study: Possible Endocarditis Medication ALIS probe passed without difficulty. No complications were noted. Cetacaine Topical [place] given X3 orally. Versed 2 mg given slow IVP. Performed a rapid injection of agitated mix of 9 cc saline and 1cc air to assess for atrial septal defect. Left Ventricle Normal LV size. Left ventricular systolic function is normal. The estimated ejection fraction is 65 %. No regional wall motion abnormalities noted. Right Ventricle Normal RV size. Normal systolic function. Atria Intact atrial septum. Normal left atrium. No thrombus is detected in the left atrial appendage. Normal right atrium. Mitral Valve Normal mitral valve. Fine fimbriae suggstive of vegetation on mitral valve leaflet. Mild (1+) eccentric mitral valve insufficiency. Tricuspid Valve Normal tricuspid valve. No vegetations identified. Mild tricuspid valve insufficiency. Aortic Valve Normal aortic valve. Trisinus/trileaflet aortic valve. There is no aortic valvular vegetation. Pulmonic Valve Normal pulmonic valve. There is no vegetation on the pulmonic valve. Vessels Normal aortic root. Normal arch. Pericardium No pericardial effusion. Interpretation Summary Normal LV size. Left ventricular systolic function is normal. The estimated ejection fraction is 65 %. Fine fimbriae suggstive of vegetation on mitral valve leaflet Mild (1+) eccentric mitral valve insufficiency. Ordering Physician: Renita Saucedo Referring Physician: Guido Miller Performed By: Ada Veras, RDCS, RVT
[2019-02-06 08:19] LABS: Hemoglobin A1c 10.7 % (4.2-6.3)
[2019-02-06 11:40] LABS: Bedside Glucose 165 mg/dL (70-110)
--- NOTE | 2019-02-06 13:09 | PCM.PN.ID ---
Patient Problems: Active and Suspected Problems (Last Reviewed 02/01/19 @ 08:28 by Nan Saucedo DO) Sepsis (Acute) Cellulitis (Acute) Dehydration (Acute) Hypokalemia (Acute) MSSA bacteremia (Acute) Knee effusion, right (Acute) Knee pain, right (Acute) Subjective: Feeling ok, hand hurts, knee is better, no fever, no n/v/d. - Physical Exam General: Alert, Cooperative, No apparent distress Lungs: Clear to auscultation, Normal air movement Cardiovascular: Regular rate, Regular Rhythm Abdomen: Soft, Non Tender, Non-Distended Skin: Ulcer/ Wound - hand wrapped, R knee less swollen Vital Signs Temp Pulse Resp BP Pulse Ox 98.2 F 82 16 147/68 H 100 02/06/19 11:30 02/06/19 11:30 02/06/19 11:30 02/06/19 11:30 02/06/19 11:30 Oxygen Flow Rate (L/min) 2 Oxygen Delivery Method Room Air Weight: 68.5 kg Body Mass Index (BMI) 21.1 Finger Stick Blood Glucose 68 Intake and Output for Last 24 Hours 02/04/19 02/05/19 02/06/19 23:59 23:59 23:59 Intake Total 993 / 993 1941 / 1941 121 / 121 Output Total 925 / 925 2850 / 2850 2300 / 2300 Balance 68 / -909 / -909 -2179 / -2179 Microbiology Past 72 Hours 02/04/19 12:00 Blood Culture - Preliminary Blood Culture (Wb) - Arm Right Gram Positive Cocci 02/03/19 03:48 Gram Stain - Final Sputum, Expectorated/Coughed Respiratory Culture - Final Staphylococcus aureus Presumptive C albicans 02/03/19 13:00 Bacteria Detection (PCR) - Final Blood Culture (Wb) - Arm Left Staphylococcus aureus Blood Culture - Preliminary Staphylococcus aureus 02/03/19 06:50 Urine Culture - Final Urine, Clean Catch Staphylococcus aureus 02/02/19 11:15 Gram Stain - Final Fluid - Other Body Fluid Culture - Preliminary No growth-Final to follow Anaerobic Culture - Preliminary No growth in 48 hours. 02/02/19 18:00 Gram Stain - Final Tissue - Other Wound Culture - Final Staphylococcus aureus 02/02/19 09:47 Blood Culture - Preliminary Blood Culture (Wb) - Right Forearm Gram Positive Cocci Laboratory Tests Past 24 Hrs 02/06/19 02/06/19 02/06/19 05:40 05:40 05:40 WBC 24.1 H RBC 2.79 L Hgb 9.0 L Hct 25.2 L MCV 90.3 MCH 32.3 H MCHC 35.7 RDW 11.5 L RDW Differential 36.7 Plt Count 325 MPV 9.7 ESR 68 H Sodium 134 L Potassium 3.9 Chloride 100 Carbon Dioxide 28.0 Anion Gap 6 BUN 12 Creatinine 0.62 L Estim Creat Clear Calc 147.06 Est GFR (MDRD) Af Amer 173 Est GFR (MDRD) Non-Af 143 BUN/Creatinine Ratio 19.2 Glucose 161 H Hemoglobin A1c 10.7 H Calcium 7.9 L Total Bilirubin 0.60 Direct Bilirubin 0.39 H AST 45 H ALT 15 L Alkaline Phosphatase 179 H C-React Prot Ext Range 35.50 H Total Protein 6.7 Albumin 1.6 L Globulin 5.1 H POC Glucose 02/06/19 02/06/19 02/05/19 11:16 06:54 21:51 POC Glucose 165 H 162 H 123 H 02/05/19 16:26 POC Glucose 95 Medical Necessity - Tobacco Use Smoking Status: Former smoker Tobacco Use: Non-smoker Route of nutrition/ use of supplements: [] Nutritional Intake: [] IV Site: [] Canas Catheter: [] - Assessment/Plan Antibiotics: [] Assessment/Plan: [] Active and Suspected Problems (Last Reviewed 02/01/19 @ 08:28 by Nan Saucedo DO) Sepsis (Acute) Cellulitis (Acute) Dehydration (Acute) Hypokalemia (Acute) severe sepsis (leukocytosis, tachycardia, lactic acidosis) with 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 Concern for R sided endocarditis given suspected pulm emboli. - repeat bcx x1 today, bcx (+) 02/04 - TTE showed no veg. ALIS with mitral veg. - Taken to OR 02/[address] Rankin with diffuse abscess and necrosis in his hand. Back to OR today. - knee aspiration by Dr. Marroquin so far consistent with reactive arthritis - has chronic lower back pain and spine tenderness. MRI 02/02 showed no new sign of infection. Last study was 10/2018. - continue cefazolin. Added clinda in AM 02/02 for anti-toxin effect. CT then did show gas in the tissues. Cavitary lung lesion - Low suspicion for TB. No hemoptysis, some weight loss. Reports neg PPD in the past. - given his history, imaging, (+) mSSA bacteremia, and that these lung changes are new compared to CT on 01/25, removed d/c neg airflow isolation chronic hep C - neg for HIV and hep B in 10/2018 - HCV pcr was 8 million in 05/2018. Now 7.5 million. Will need outpt eval for treatment. - neg tox screen - denies IVDU Will follow, d/w Dr. Saucdeo
[2019-02-06 13:14] LABS: Pathologist Review Reviewed
--- NOTE | 2019-02-06 14:42 | PCM.OPRPT ---
Report of Operation Date of Procedure: 02/06/19 Pre-Operative Diagnosis: 1. 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 2. Necrotizing diabetic abscess thenar eminence left palm extending through thenar muscles (abductor pollicis brevis, flexor pollicis brevis, opponens pollicis, and adductor pollicis) and first dorsal interosseous muscle. 3. Necrotizing diabetic abscess dorsum left hand at first webspace extending through first dorsal interosseous muscle and thenar muscles (abductor pollicis brevis, flexor pollicis brevis, opponens pollicis, and adductor pollicis). 4. Suppurative flexor tenosynovitis. 5. Diabetes mellitus. 6. Sepsis. Post-Operative Diagnosis: Same. Surgery/Procedure Performed:: Incision and drainage and irrigation and excisional debridement complex necrotizing diabetic abscesses left thumb and thenar eminence into thenar space and dorsum hand over first webspace. Description of Surgical Findings:: The patient is a 53 year old M was admitted to hospital with sepsis and uncontrolled diabetes and associated increasing pain and redness and swelling left hand and thumb. Patient is left hand dominant. Patient states he fell a week ago and his symptomatology progressively worsened. He denies fever. Plain Xray of the hand in the ED is normal. WBC was 24.9. Random blood sugar was 624. Lactic acid was 2.9. ESR is 18 and the CRP is 41.9. HgbA1c was 10.5. He was started on Vancomycin and Zosyn. His blood cultures were positive for Staphylococcus aureus. His antibiotics have been changed to Ancef and Cleocin. I was asked to evaluate this patient for surgical options for treatment. He was taken to surgery the same day I saw him on 02/02/19 where he underwent surgical preparation left thumb and thenar eminence and dorsum hand over first webspace with incision and drainage and excisional debridement complex necrotizing diabetic abscesses (33 cm2) and incision and drainage tendon sheath left thumb for suppurative flexor tenosynovitis and incision and drainage necrotizing diabetic abscess dorsum left thumb involving extensor tendon with tenosynovitis and incision and drainage necrotizing diabetic abscess thenar eminence left palm extending through thenar muscles (abductor pollicis brevis, flexor pollicis brevis, opponens pollicis, and adductor pollicis) and first dorsal interosseous muscle and incision and drainage necrotizing diabetic abscess first dorsal webspace left hand extending through first dorsal interosseous muscle and thenar muscles (abductor pollicis brevis, flexor pollicis brevis, opponens pollicis, and adductor pollicis). Postop started Silver dressing changes. The dressing changes were painful. Improvement was seen in the wounds and the swelling was decreasing. However the WBC would not decrease more than 19.7. So it was recommended to go back to surgery for additional incision and drainage and excisional debridement of the wounds along with copious irrigation. It was discussed with the patient that additional incisions may be done to make sure the infection has not progressed. Patient was informed of the risks and complications of the procedure including alternatives to surgery. These were discussed with the patient personally. Patient voices understanding and wishes to proceed. Some of the risks and complications that were discussed included but were not inclusive of failure to diagnose including symptom relief, pain, infection, numbness, stiffness, loss of digit, RSD (CRPS), need for further surgery, contracture, and wound healing problems. Length of zig zag incisions dorsum left thumb -8 cm. Length of zig zag incisions dorsum left hand at first webspace - 7.5 cm. Length of zig zag incisions volar left thumb extending onto thenar eminence - 10 cm. Length of incision mid palm left hand - 3 cm. Length of incision dorsum left hand, radial - 4.5 cm. Length of incision dorsum left hand, ulnar - 4.5 cm. Total tourniquet time - 34 minutes. marketing strategy lead: None Type of Anesthesia:: General Specimen's removed: 1. Left hand abscess wound tissue to Microbiology. 2. MRSA Wound DNA by PCR. Drains: None. Estimated Blood Loss (mL): 50 ml. Fluids Replaced: 800 ml IV Fluids. Description of Procedure: Patient was taken to OR in supine position and was placed under general anesthesia. The left hand and forearm areas were prepped and draped in the usual fashion. SCD's were placed for DVT prophylaxis. Perioperative antibiotics were given intravenously. I elevated the left hand and wrapped a towel around the hand as the forearm tourniquet was inflated to 250 mmHg. I didn't use the Esmarch bandage because of the severity of the infection. I first removed the few sutures that were present in the apex of the zig and zag incisions. This opened up the present wounds to more direct inspection. Upon inspection of the wounds, there was no gross pus seen. Some areas of persistent fat necrosis was seen scattered throughout and excised and debrided. I extended the first webspace incision in a zig zag fashion to meet the zig zag incisions of the volar thumb and thenar eminence. No pus was seen but some fat necrosis was seen that was excised and debrided. When I probed the first webspace wound, I was able to probe volarly up to the midspace area. I pressed on the midspace area and could not express any pus in the present wounds. So I made a transverse incision in the midspace in the proximal palmar crease down through the subcutaneous tissue until the flexor tendons were seen. I dissected deep to the flexor tendons and no pus was seen. I was able to place a hemostat from the midspace area deep to the flexor tendons through the thenar space into the first webspace wound. I then extended the dorsum of the thumb wound more proximally in a zig zag fashion. Dissection was carried down to the tendon. No pus was seen. There was some fat necrosis in the subcutaneous tissue that was excised and debrided. Patient had pain on the dorsum of his left hand preoperatively. He was able to flex and extend his wrists. So I made longitudinal incisions on the dorsum left hand at the level of the ring finger and the index finger. The incisions went from the MP joint to the wrist. No pus was seen. Some fat necrosis was present and excised and debrided. Tourniquet was released after 34 minutes. Hemostasis was obtained with elevation and electrocautery. The wounds were copiously irrigated with saline, about 2 liters. By the end of the irrigation, the wounds looked clean without further evidence of infection. I then dressed the wounds with Betadine gauze followed by dry gauze and a compression JERZY wrap. 2x2 gauze was placed in the web spaces to minimize ulceration. Patient tolerated the procedure well and was sent to PACU in satisfactory condition. Patient will be sent upstairs for continued postop care. Will resume Silver dressing changes tomorrow. The wounds were all left open. Depending on the clinical healing that is seen and combined with the WBC that should start decreasing close to the normal range. The length of zig zag incisions dorsum left thumb was 8 cm. The length of zig zag incisions dorsum left hand at first webspace was 7.5 cm. The length of zig zag incisions volar left thumb extending onto thenar eminence was 10 cm. The length of the midspace incision was 3 cm. The length of the incision dorsum left hand, radial, was 4.5 cm. The length of the incision dorsum left hand, ulnar, was 4.5 cm. He will keep his left hand elevated during the postop period. Anticipate the dressing changes will be painful for a while. He should be evaluated for an ECF. Also with the severity and diffuse widespread nature of the pus, he will need 6 weeks of IV antibiotics. Anticipate stiffness of his thumb and hand and will need extensive aggressive OT for range of motion exercises, strengthening, and edema management. Anticipate increased metabolic demands from the infection and the surgical wounds. Will check a Prealbumin and will need nutritional supplementation with protein to help the healing process. Due to the severity of the infection and the diffuse widespread nature of the pus, I will watch him closely during the initial postop period. If improvement is too slow or if his hand worsens, then he would need additional irrigation and drainage and excisional debridement to make sure additional infection is not present. Encourage nutritional supplementation with protein to help the healing process. After discharge [facility] I will watch him closely, because he is at risk for RSD (CRPS). The tissue that was debrided along with the pus was sent to Microbiology for culture. A positive culture may necessitate antibiotic modification. Also a MRSA Wound DNA by PCR was done. 2x2 gauze was placed in the web spaces to minimize ulceration. Grafts/Implants Used: None. - Complications None. - Admit VTE Documentation VTE Present on Admission: No VTE Mechan Device Prophylaxis: SCD's VTE Pharm Prophylaxis ordered?: Yes Code Visit Surgery Charges CPT - 09672 ICD-10 - M71.042, L02.512, M65.142, M79.89, E11.9, A41.9
[2019-02-06 15:05] LABS: Bedside Glucose 212 mg/dL (70-110)
[2019-02-06 16:06] LABS: PROELU- Albumin, Urine 38.3 % (.); PROELU- Alpha-1-Globulin,Ur 2.9 % (.); PROELU- Alpha-2-Globulin,Ur 13.6 % (.); PROELU- Beta Globulin, Ur 20.2 % (.); Total Protein, Ur 186.4 mg/dL (Not Estab.)
[2019-02-06 16:30] LABS: M R Staph aureus DNA By PCR Negative (Negative); Probe Check PASS; Staph aureus DNA By PCR POSITIVE (Negative)
--- NOTE | 2019-02-06 17:19 | PCM.PN.SRG ---
Patient Problems: Active and Suspected Problems (Last Reviewed 02/01/19 @ 08:28 by Nan Saucedo DO) Sepsis (Acute) Cellulitis (Acute) Dehydration (Acute) Hypokalemia (Acute) MSSA bacteremia (Acute) Knee effusion, right (Acute) Knee pain, right (Acute) Subjective: patient status unchanged, undergoing ALIS and debridement of left hand infection today - Physical Exam General: Alert, Oriented x3 Oral: Moist Mucosa Abdomen: Bowel Sounds Present Vital Signs Temp Pulse Resp BP Pulse Ox 97.4 F L 96 16 131/74 H 98 02/06/19 16:25 02/06/19 16:25 02/06/19 16:25 02/06/19 16:25 02/06/19 16:25 Oxygen Flow Rate (L/min) 2 Oxygen Delivery Method Room Air Weight: 68.5 kg Body Mass Index (BMI) 21.1 Finger Stick Blood Glucose 212 Intake and Output for Last 24 Hours 02/04/19 02/05/19 02/06/19 23:59 23:59 23:59 Intake Total 993 / 993 1941 / 1941 1421 / 1421 Output Total 925 / 925 2850 / 2850 2300 / 2300 Balance 68 / 68 -909 / -909 -879 / -879 Microbiology Past 72 Hours 02/02/19 18:00 Gram Stain - Final Tissue - Other Wound Culture - Final Staphylococcus aureus Anaerobic Culture - Preliminary Checking for anaerobes, further studies to follow. 02/04/19 12:00 Blood Culture - Preliminary Blood Culture (Wb) - Arm Right Gram Positive Cocci 02/03/19 03:48 Gram Stain - Final Sputum, Expectorated/Coughed Respiratory Culture - Final Staphylococcus aureus Presumptive C albicans 02/03/19 13:00 Bacteria Detection (PCR) - Final Blood Culture (Wb) - Arm Left Staphylococcus aureus Blood Culture - Preliminary Staphylococcus aureus 02/03/19 06:50 Urine Culture - Final Urine, Clean Catch Staphylococcus aureus 02/02/19 11:15 Gram Stain - Final Fluid - Other Body Fluid Culture - Preliminary No growth-Final to follow Anaerobic Culture - Preliminary No growth in 48 hours. 02/02/19 09:47 Blood Culture - Preliminary Blood Culture (Wb) - Right Forearm Gram Positive Cocci Laboratory Tests Past 24 Hrs 02/04/19 02/06/19 02/06/19 05:00 05:40 05:40 WBC 24.1 H RBC 2.79 L Hgb 9.0 L Hct 25.2 L MCV 90.3 MCH 32.3 H MCHC 35.7 RDW 11.5 L RDW Differential 36.7 Plt Count 325 MPV 9.7 Diff Path Review Reviewed ESR 68 H Sodium 134 L Potassium 3.9 Chloride 100 Carbon Dioxide 28.0 Anion Gap 6 BUN 12 Creatinine 0.62 L Estim Creat Clear Calc 147.06 Est GFR (MDRD) Af Amer 173 Est GFR (MDRD) Non-Af 143 BUN/Creatinine Ratio 19.2 Glucose 161 H Hemoglobin A1c Calcium 7.9 L Total Bilirubin 0.60 Direct Bilirubin 0.39 H AST 45 H ALT 15 L Alkaline Phosphatase 179 H C-React Prot Ext Range 35.50 H Total Protein 6.7 Albumin 1.6 L Globulin 5.1 H S.aureus Protein A PCR MRSA (PCR) 02/06/19 02/06/19 05:40 14:55 WBC RBC Hgb Hct MCV MCH MCHC RDW RDW Differential Plt Count MPV Diff Path Review ESR Sodium Potassium Chloride Carbon Dioxide Anion Gap BUN Creatinine Estim Creat Clear Calc Est GFR (MDRD) Af Amer Est GFR (MDRD) Non-Af BUN/Creatinine Ratio Glucose Hemoglobin A1c 10.7 H Calcium Total Bilirubin Direct Bilirubin AST ALT Alkaline Phosphatase C-React Prot Ext Range Total Protein Albumin Globulin S.aureus Protein A PCR POSITIVE H MRSA (PCR) Negative POC Glucose 02/06/19 02/06/19 02/06/19 14:59 11:16 06:54 POC Glucose 212 H 165 H 162 H 02/05/19 02/05/19 21:51 16:26 POC Glucose 123 H 95 Medical Necessity - Tobacco Use Smoking Status: Former smoker Tobacco Use: Non-smoker Assessment/Plan All Active Problems (Last Reviewed 02/01/19 @ 08:28 by Nan Saucedo DO) Necrotizing soft tissue infection (Acute) Abscess of dorsum of left hand (Acute) Abscess of bursa, left hand (Acute) Abscess of thumb, left (Acute) Suppurative tenosynovitis of flexor tendon of left hand (Acute) Sepsis (Acute) Cellulitis (Acute) Dehydration (Acute) Hypokalemia (Acute) MSSA bacteremia (Acute) Knee effusion, right (Acute) Knee pain, right (Acute) Acute pancreatitis (Resolved) Gastroenteritis (Resolved) Impression: anemia, abdominal pain Plan: colonoscopy and EGD tomorrow noon, prep started today
--- NOTE | 2019-02-06 17:40 | PCM.PROGNOTE ---
Patient Problems: Active and Suspected Problems (Last Reviewed 02/01/19 @ 08:28 by Nan Saucedo DO) Sepsis (Acute) Cellulitis (Acute) Dehydration (Acute) Hypokalemia (Acute) MSSA bacteremia (Acute) Knee effusion, right (Acute) Knee pain, right (Acute) Subjective: All events of the past 24 hours of been reviewed. He was taken back to surgery by Dr. Rankin today The transesophageal echocardiogram shows an estimated ejection fraction of 65% with fine fimbriae suggestive of vegetation on the mitral valve leaflet. There was +1 mitral valve insufficiency I reviewed Dr. Cherry's note - will continue Ancef and clindamycin He continues to be afebrile. Vital signs are stable. White blood cell count today is 24.1, up from 19.7 yesterday. Hemoglobin is stable at 9.0 and the platelets are within normal limits. Sed rate is 68. Creatinine is stable at 0.62. Blood sugars have come under better control. The patient had just returned from surgery with Dr. Rankin and was still under the effects of anesthesia. He was unable to give any history at this time and was difficult to arouse. Objective: GENERAL: alert, oriented X 3, Cooperative, more alert today, looks somewhat better, appears cachectic ORAL: moist mucosa, no mucosal lesions, poor dentition NECK: No JVD, supple, trachea midline LUNGS: Clear to auscultation but diminished , symmetric chest expansion, no rales and no wheezes, not tachypneic, no accessory muscle use HEART: RRR, Normal S1 and S2, no rub, no gallop, no murmur appreciated ABDOMEN: soft, NT, ND, BS present, no guarding with palpation EXTREMITIES: no edema, no cyanosis, no calf tenderness, the right knee is swollen and has increased warmth to touch but I do not appreciate any erythema. Arthrocentesis was consistent with reactive arthritis and the swelling is decreasing. SKIN: No rashes, no breakdown NEUROLOGIC: no focal neurologic deficits PSYCH: appropriate, normal affect, pleasant - Physical Exam Vital Signs Temp Pulse Resp BP Pulse Ox 97.4 F L 96 16 131/74 H 98 02/06/19 16:25 02/06/19 16:25 02/06/19 16:25 02/06/19 16:25 02/06/19 16:25 Oxygen Flow Rate (L/min) 2 Oxygen Delivery Method Room Air Weight: 151 lb 0.266 oz Body Mass Index (BMI) 21.1 Finger Stick Blood Glucose 212 Intake and Output for Last 24 Hours 02/04/19 02/05/19 02/06/19 23:59 23:59 23:59 Intake Total 993 / 993 1941 / 1941 1421 / 1421 Output Total 925 / 925 2850 / 2850 2300 / 2300 Balance 68 / 68 -909 / -909 -879 / -879 Microbiology Past 72 Hours 02/02/19 18:00 Gram Stain - Final Tissue - Other Wound Culture - Final Staphylococcus aureus Anaerobic Culture - Preliminary Checking for anaerobes, further studies to follow. 02/04/19 12:00 Blood Culture - Preliminary Blood Culture (Wb) - Arm Right Gram Positive Cocci 02/03/19 03:48 Gram Stain - Final Sputum, Expectorated/Coughed Respiratory Culture - Final Staphylococcus aureus Presumptive C albicans 02/03/19 13:00 Bacteria Detection (PCR) - Final Blood Culture (Wb) - Arm Left Staphylococcus aureus Blood Culture - Preliminary Staphylococcus aureus 02/03/19 06:50 Urine Culture - Final Urine, Clean Catch Staphylococcus aureus 02/02/19 11:15 Gram Stain - Final Fluid - Other Body Fluid Culture - Preliminary No growth-Final to follow Anaerobic Culture - Preliminary No growth in 48 hours. 02/02/19 09:47 Blood Culture - Preliminary Blood Culture (Wb) - Right Forearm Gram Positive Cocci Laboratory Tests Past 24 Hrs 02/04/19 02/06/19 02/06/19 05:00 05:40 05:40 WBC 24.1 H RBC 2.79 L Hgb 9.0 L Hct 25.2 L MCV 90.3 MCH 32.3 H MCHC 35.7 RDW 11.5 L RDW Differential 36.7 Plt Count 325 MPV 9.7 Diff Path Review Reviewed ESR 68 H Sodium 134 L Potassium 3.9 Chloride 100 Carbon Dioxide 28.0 Anion Gap 6 BUN 12 Creatinine 0.62 L Estim Creat Clear Calc 147.06 Est GFR (MDRD) Af Amer 173 Est GFR (MDRD) Non-Af 143 BUN/Creatinine Ratio 19.2 Glucose 161 H Hemoglobin A1c Calcium 7.9 L Total Bilirubin 0.60 Direct Bilirubin 0.39 H AST 45 H ALT 15 L Alkaline Phosphatase 179 H C-React Prot Ext Range 35.50 H Total Protein 6.7 Albumin 1.6 L Globulin 5.1 H S.aureus Protein A PCR MRSA (PCR) 02/06/19 02/06/19 05:40 14:55 WBC RBC Hgb Hct MCV MCH MCHC RDW RDW Differential Plt Count MPV Diff Path Review ESR Sodium Potassium Chloride Carbon Dioxide Anion Gap BUN Creatinine Estim Creat Clear Calc Est GFR (MDRD) Af Amer Est GFR (MDRD) Non-Af BUN/Creatinine Ratio Glucose Hemoglobin A1c 10.7 H Calcium Total Bilirubin Direct Bilirubin AST ALT Alkaline Phosphatase C-React Prot Ext Range Total Protein Albumin Globulin S.aureus Protein A PCR POSITIVE H MRSA (PCR) Negative POC Glucose 02/06/19 02/06/19 02/06/19 14:59 11:16 06:54 POC Glucose 212 H 165 H 162 H 02/05/19 21:51 POC Glucose 123 H Medical Necessity - Tobacco Use Smoking Status: Former smoker Tobacco Use: Non-smoker Assessment/Plan All Active Problems (Last Reviewed 02/01/19 @ 08:28 by Nan Saucedo DO) Necrotizing soft tissue infection (Acute) Abscess of dorsum of left hand (Acute) Abscess of bursa, left hand (Acute) Abscess of thumb, left (Acute) Suppurative tenosynovitis of flexor tendon of left hand (Acute) Sepsis (Acute) Cellulitis (Acute) Dehydration (Acute) Hypokalemia (Acute) MSSA bacteremia (Acute) Knee effusion, right (Acute) Knee pain, right (Acute) Acute pancreatitis (Resolved) Gastroenteritis (Resolved) Impressions 1. Sepsis secondary to cellulitis of the left hand with bacteremia secondary to methicillin sensitive staph aureus. BC on 02/02 still + for MSSA. If the culture from today is still + will likely need a ALIS. 2. necrotic infection with abscess of the 3. Controlled diabetes mellitus type 2 4. Pseudohyponatremia secondary to markedly increased blood sugar 5. Hypokalemia-resolved 6. Abdominal pain associated with nausea and sometimes emesis - better since started on a PPI 7. Anemia with heme positive stool 8. Hypomagnesemia 9. Malnutrition-severe 10. Dehydration - resolved 11. Hyperlipidemia 12. Hepatitis C antibody positive 13. Unintentional weight loss 14. Chronic back pain with lumbar canal stenosis at L4-5 and L5-S1 secondary to disc disease and facet arthropathy 15. Indeterminate cortical low attenuation change in the right mid cortex not seen on previous examination of 11/14/2018. The area measures 1.6 x 1.5 x 1.4 cm and is not a simple cyst. Malignancy cannot be ruled out at this time...Will need a bx going forward once infection is cleared. ? whether it could be an abscess? 16. Former smoker 17. right knee effusion-secondary to reactive arthritis 18. Multiple bilateral pulmonary cavitary lesions-due to septic emboli -sputum culture is positive for methicillin sensitive staph aureus 19. ST with a normal temp - EKG without evidence of ischemia. TSH normal at admission 20. 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 He has been less alert the past 24 hours......I suspect he is receiving too much pain medication. I think he misrepresents his pain in order to get more narcotics. He has a hx of polysubstance abuse and will take as much as is written for. He will need to have the lesion in the right kidney evaluated at some point when he is more stable and infection is under control. This could be an abscess but cannot rule out malignancy at this time. Dr. Fletcher plans EGD and colonoscopy tomorrow. Code Visit Inpatient E&M: 38941 Subs Hosp L2
[2019-02-06] MEDS: Insulin Lispro 100 UNIT/ML INSULN.PEN SC (17:51)
[2019-02-06 18:05] LABS: Bedside Glucose 209 mg/dL (70-110)
[2019-02-06] MEDS: HYDROmorphone 1 MG/ML Syringe 2 MG IV ×2 (18:39→22:06)
[2019-02-06] MEDS: Electrolyte Solution/Peg's 4000 ML 2000 ML PO (19:20)
[2019-02-06] MEDS: Pantoprazole Sodium 40 MG Tablet PO (21:01)
[2019-02-06] MEDS: Atorvastatin Calcium 40 MG Tablet PO (21:01)
[2019-02-06] MEDS: Metoprolol Tartrate 25 MG Tablet PO (21:04)
[2019-02-06 22:06] LABS: Bedside Glucose 214 mg/dL (70-110)
[2019-02-07] VITALS (16 sets, daily range): BP systolic 107–185; BP diastolic 55–91; PULSE 76–90; RESP 16–18; TEMP 36.2–36.9; O2SAT 94–99; BMI 19.3
--- NOTE | 2019-02-07 | GASB_PTH ---
PATIENT: LUCIANA ORO Sr. LOC: [facility] U#:[id number] AGE/SX: 53/M ROOM: [facility] RE02/01/[address]: Dr. Leida Saucedo DO : 1965 BED: 1 DIS: 02/16/2019 SPEC #: [id number] RECD: 02/07/19 14:18 STATUS: ESTEFANIA REQ #: [id number] SHAI: 02/07/19 00:[address]: aVnessa Fletcher DEPT: SURGICAL PATHOLOGY RECD BY: Rodolfo Martinez ENTERED: 02/07/19 14:18 SP TYPE: Gastric Bx OTHR DR: DO Dr. Luc Guevara DO Dr. Efewongbe Oleghe, MD Dr. James A Slaby, MD Dr. Linda Wang, MD Dr. Robert Leininger, MD Dr. Steven Widmer, MD Tissues: A - Gastric mucous membrane B - Cecum, NOS Procedures: Surgery Specimen Level IV Comments: @ Ordering doctor for SUIV edited from to @ by RHIANNON at 02/07/19 1519 @ Submitting doctor edited from to @ by RHIANNON at 02/07/19 1519 @ Ordering doctor for SUIV edited from to @ indigo JURADO at 02/07/19 1525 @ Submitting doctor edited from to @ indigo JURADO at 02/07/19 1525 HEADER OPERATION: Colonoscopy, EGD PRE-OP DIAGNOSIS: Anemia, abdominal pain TISSUE SUBMITTED: A - Antral biopsy for H. pylori and pathology, B - Ileocecal valve polyp MICROSCOPIC DIAGNOSIS A. Antral biopsy: Mild gastritis. A few minute lymphoid aggregates, favor benign. See microscopic description and comment. B. Ileocecal valve polyp, biopsy: Fragments of tubular adenoma. Fragments of fecal material. SJ:dwight 02/08/19 COMMENT A. The results of immunohistochemistry for Helicobacter pylori will be reported separately ([id number]). MICROSCOPIC DESCRIPTION Slides are reviewed. A. The specimen shows fragments of gastric mucosa with chronic inflammatory cell infiltrates in the lamina propria consisting of lymphocytes and plasma cells, consistent with mild chronic gastritis. A few minute lymphoid aggregates are also noted, favor benign. GROSS DESCRIPTION A - Received in fixative is one container labeled with the patient's name and designated antral biopsy. The specimen consists of multiple irregular fragments of light bond soft tissue that in aggregate measure 0.5 x 0.3 x 0.1 cm. The specimen is totally submitted in one cassette. B - Received in fixative is one container labeled with the patient's name and designated ileocecal valve polyp. The specimen consists of multiple irregular fragments of light bond soft tissue mixed with fecal material that in aggregate measure 1.5 x 0.5 x 0.1 cm. The specimen is totally submitted in one cassette. / SJ:rg 02/07/19 TC:1 CPT: 89358 x2
--- NOTE | 2019-02-07 | IMM_PTH ---
PATIENT: LUCIANA ORO Sr. LOC: [facility] U#:[id number] AGE/SX: 53/M ROOM: [facility] RE02/01/[address]: Dr. Leida Saucedo DO : 1965 BED: 1 DIS: 02/16/2019 SPEC #: [id number] RECD: 02/07/19 15:25 STATUS: SOUMejia REQ #: [id number] SHAI: 02/07/19 00:[address]: Vanessa Fletcher DEPT: IMMUNOHISTOCHEMISTRY RECD BY: Isabel Gonzales ENTERED: 02/07/19 15:26 SP TYPE: IMMUNO OTHR DR: DO Dr. Luc Guevara DO Dr. Efewongbe Oleghe, MD Dr. James A Slaby, MD Dr. Robert Leininger, MD Dr. Steven Widmer, MD Tissues: A - Stomach, NOS Procedures: H Pylori (initial) PHYSICIAN & [address] [address] SPECIMEN INFORMATION: Tissue Source: A - Antral biopsy Clinical Info: Anemia, abdominal pain Specimen Number: [id number] CPT code: 54457 METHODOLOGY: Deparaffinized sections of prefer/formalin-fixed tissue or PAP/DQ stained slides are incubated with monoclonal/polyclonal antibodies/oligonucleotide probes. Localization is made via biotin free immunoperoxidase method. Appropriate controls are performed and reacted as expected. Results on target cell population are indicated in the following table: RESULTS: ANTIBODY / CLONE RESULT Block A H Pylori (polyclonal) negative These tests were developed and their performance characteristics determined by [facility]. They may not have been cleared or approved by the [place]. Food and Drug Administration. The FDA has determined that such clearance or approval is not necessary. INTERPRETATION: A. Antral biopsy: Negative for Helicobacter pylori organisms. SJ:dwight 02/08/19
[2019-02-07] MEDS: HYDROmorphone 1 MG/ML Syringe 2 MG IV ×5 (01:53→17:38)
[2019-02-07] MEDS: 0.9% NaCl Peripheral Flush Adult/Peds IV ×6 (02:01→17:38)
[2019-02-07] MEDS: Electrolyte Solution/Peg's 4000 ML 2000 ML PO (02:01)
[2019-02-07] MEDS: oxyCODONE 5 MG Tablet 10 MG PO ×2 (04:29→15:24)
[2019-02-07] MEDS: diazePAM 5 MG Tablet PO (04:30)
[2019-02-07 05:07] LABS: Hematocrit 26.8 % (40-54); Hemoglobin 9.4 g/dl (13.0-16.5); Mean Corp Hgb Conc 35.1 g/gl (32-36); Mean Corpuscular Volume 91.2 fL (80-94); Platelet Count 374 K/mm3 (150-450); RBC Distribution Width CV 12.5 % (11.6-14.6); RBC Distribution Width SD 41.3 fl (35.1-43.9); Red Blood Count 2.94 M/mm3 (4.6-6.2); White Blood Count 23.4 K/mm3 (4.4-11.0)
[2019-02-07 05:12] LABS: Scan Indicated on CBC? Y/N NO
[2019-02-07 05:20] LABS: Anion Gap 6 (5-15); BUN 10 mg/dL (7-18); BUN/Creat Ratio 13.8 RATIO (10-20); Chloride 100 mmol/L (98-107); Creatinine, Serum 0.73 mg/dL (0.70-1.30); EST Glomerular Filtration Rate 120 mL/min (>60); Est Glom Filt Rate - Afr Amer 145 mL/min (>60); Estimated Creatinine Clearance 114.69 ml/min; Glucose 207 mg/dL (74-106); Potassium 4.2 mmol/L (3.5-5.1); Sodium Level 136 mmol/L (136-145)
[2019-02-07] MEDS: Cefazolin 2 GM in 0.9% Normal Saline 100 ML IV ×3 (05:31→21:03)
[2019-02-07 08:05] LABS: Bedside Glucose 190 mg/dL (70-110)
--- NOTE | 2019-02-07 08:59 | PN_ITS ---
Subjective: Patient transferred out of the intensive care unit previously. Asked to follow- up with patient to ensure hemodynamic instability. No acute issues were noted overnight. 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 Patient is reporting significant pain at this time. Patient feels subjectively worse compared to yesterday and attributes this to hand pain. General: Alert, Oriented x3, Cooperative, No apparent distress, - - Appears older than stated age. HEENT: Atraumatic, PERRLA, EOMI Oral: Moist Mucosa, No Gingival or Mucosal Lesions/ Ulcerations Neck: Supple, No JVD, No Nodes, Trachea Midline Lungs: No rhonchi, No wheeze, No rales, Diminished, - - Symmetric expansion. Cardiovascular: Regular rate, Regular Rhythm, Normal S1, Normal S2, No murmurs, No rub noted, No Gallop Abdomen: Bowel Sounds Present, Soft, Non Tender, Non-Distended Extremities: No clubbing, No cyanosis, - - Some knee effusion appreciated. Skin: - - Left hand wrapped Musculoskeletal: Tenderness Lymphatic: No Cervical, Supraclavicular, or Inguinal Adenopathy Neurological: Cranial nerves II-XII grossly intact, Neuro grossly intact, Motor Exam 5/5 strength throughout Psych/Mental Status: Normal Affect, Appropriate Vital Signs Temp Pulse Resp BP Pulse Ox 36.7 C 83 17 141/90 H 99 02/07/19 08:29 02/07/19 08:29 02/07/19 08:29 02/07/19 08:29 02/07/19 08:29 Oxygen Flow Rate (L/min) 2 Oxygen Delivery Method Room Air Weight: 68.6 kg Body Mass Index (BMI) 19.3 Finger Stick Blood Glucose 212 Intake and Output for Last 24 Hours 02/05/19 02/06/19 02/07/19 23:59 23:59 23:59 Intake Total 1941 / 1941 3807 / 3807 200 / 200 Output Total 2850 / 2850 2825 / 2825 1200 / 1200 Balance -909 / -909 982 / 982 -1000 / -1000 Labs (Last 48 Hours) 02/03/19 02/04/19 02/05/19 05:05 05:00 11:41 WBC RBC Hgb Hct MCV MCH MCHC RDW RDW Differential Plt Count MPV Diff Path Review Reviewed ESR Sodium Potassium Chloride Carbon Dioxide Anion Gap BUN Creatinine Estim Creat Clear Calc Est GFR (MDRD) Af Amer Est GFR (MDRD) Non-Af BUN/Creatinine Ratio Glucose Hemoglobin A1c Calcium Total Bilirubin Direct Bilirubin AST ALT Alkaline Phosphatase C-React Prot Ext Range Total Protein Albumin Globulin HCV RNA Quant (PCR) [id number] HCV RNA (PCR) log10 6.874 Hepatitis C RNA Comment Comment S.aureus Protein A PCR MRSA (PCR) POC Glucose 237 H 02/05/19 02/05/19 02/06/19 16:26 21:51 05:40 WBC 24.1 H RBC 2.79 L Hgb 9.0 L Hct 25.2 L MCV 90.3 MCH 32.3 H MCHC 35.7 RDW 11.5 L RDW Differential 36.7 Plt Count 325 MPV 9.7 Diff Path Review ESR 68 H Sodium Potassium Chloride Carbon Dioxide Anion Gap BUN Creatinine Estim Creat Clear Calc Est GFR (MDRD) Af Amer Est GFR (MDRD) Non-Af BUN/Creatinine Ratio Glucose Hemoglobin A1c Calcium Total Bilirubin Direct Bilirubin AST ALT Alkaline Phosphatase C-React Prot Ext Range Total Protein Albumin Globulin HCV RNA Quant (PCR) HCV RNA (PCR) log10 Hepatitis C RNA Comment S.aureus Protein A PCR MRSA (PCR) POC Glucose 95 123 H 02/06/19 02/06/19 02/06/19 05:40 05:40 06:54 WBC RBC Hgb Hct MCV MCH MCHC RDW RDW Differential Plt Count MPV Diff Path Review ESR Sodium 134 L Potassium 3.9 Chloride 100 Carbon Dioxide 28.0 Anion Gap 6 BUN 12 Creatinine 0.62 L Estim Creat Clear Calc 147.06 Est GFR (MDRD) Af Amer 173 Est GFR (MDRD) Non-Af 143 BUN/Creatinine Ratio 19.2 Glucose 161 H Hemoglobin A1c 10.7 H Calcium 7.9 L Total Bilirubin 0.60 Direct Bilirubin 0.39 H AST 45 H ALT 15 L Alkaline Phosphatase 179 H C-React Prot Ext Range 35.50 H Total Protein 6.7 Albumin 1.6 L Globulin 5.1 H HCV RNA Quant (PCR) HCV RNA (PCR) log10 Hepatitis C RNA Comment S.aureus Protein A PCR MRSA (PCR) POC Glucose 162 H 02/06/19 02/06/19 02/06/19 11:16 14:55 14:59 WBC RBC Hgb Hct MCV MCH MCHC RDW RDW Differential Plt Count MPV Diff Path Review ESR Sodium Potassium Chloride Carbon Dioxide Anion Gap BUN Creatinine Estim Creat Clear Calc Est GFR (MDRD) Af Amer Est GFR (MDRD) Non-Af BUN/Creatinine Ratio Glucose Hemoglobin A1c Calcium Total Bilirubin Direct Bilirubin AST ALT Alkaline Phosphatase C-React Prot Ext Range Total Protein Albumin Globulin HCV RNA Quant (PCR) HCV RNA (PCR) log10 Hepatitis C RNA Comment S.aureus Protein A PCR POSITIVE H MRSA (PCR) Negative POC Glucose 165 H 212 H 02/06/19 02/06/19 02/07/19 17:51 22:02 04:50 WBC 23.4 H RBC 2.94 L Hgb 9.4 L Hct 26.8 L MCV 91.2 MCH 32.0 MCHC 35.1 RDW 12.5 RDW Differential 41.3 Plt Count 374 MPV 9.0 Diff Path Review ESR Sodium Potassium Chloride Carbon Dioxide Anion Gap BUN Creatinine Estim Creat Clear Calc Est GFR (MDRD) Af Amer Est GFR (MDRD) Non-Af BUN/Creatinine Ratio Glucose Hemoglobin A1c Calcium Total Bilirubin Direct Bilirubin AST ALT Alkaline Phosphatase C-React Prot Ext Range Total Protein Albumin Globulin HCV RNA Quant (PCR) HCV RNA (PCR) log10 Hepatitis C RNA Comment S.aureus Protein A PCR MRSA (PCR) POC Glucose 209 H 214 H 02/07/19 02/07/19 04:50 07:57 WBC RBC Hgb Hct MCV MCH MCHC RDW RDW Differential Plt Count MPV Diff Path Review ESR Sodium 136 Potassium 4.2 Chloride 100 Carbon Dioxide 30.0 Anion Gap 6 BUN 10 Creatinine 0.73 Estim Creat Clear Calc 114.69 Est GFR (MDRD) Af Amer 145 Est GFR (MDRD) Non-Af 120 BUN/Creatinine Ratio 13.8 Glucose 207 H Hemoglobin A1c Calcium 8.0 L Total Bilirubin Direct Bilirubin AST ALT Alkaline Phosphatase C-React Prot Ext Range Total Protein Albumin Globulin HCV RNA Quant (PCR) HCV RNA (PCR) log10 Hepatitis C RNA Comment S.aureus Protein A PCR MRSA (PCR) POC Glucose 190 H Microbiology 02/05/19 18:09 Blood Culture (Wb) - Right Forearm Blood Culture - Preliminary 02/02/19 18:00 Tissue - Other Gram Stain - Final 02/02/19 18:00 Tissue - Other Wound Culture - Final Staphylococcus aureus 02/02/19 18:00 Tissue - Other Anaerobic Culture - Preliminary Checking for anaerobes, further studies to follow. 02/04/19 12:00 Blood Culture (Wb) - Arm Right Blood Culture - Preliminary Gram Positive Cocci 02/03/19 03:48 Sputum, Expectorated/Coughed Gram Stain - Final 02/03/19 03:48 Sputum, Expectorated/Coughed Respiratory Culture - Final Staphylococcus aureus Presumptive C albicans 02/03/19 13:00 Blood Culture (Wb) - Arm Left Bacteria Detection (PCR) - Final Staphylococcus aureus 02/03/19 13:00 Blood Culture (Wb) - Arm Left Blood Culture - Preliminary Staphylococcus aureus 02/03/19 06:50 Urine, Clean Catch Urine Culture - Final Staphylococcus aureus Medical Necessity - Tobacco Use Smoking Status: Former smoker Tobacco Use: Non-smoker Assessment/Plan All Active Problems (Last Reviewed 02/01/19 @ 08:28 by Nan Saucedo DO) Necrotizing soft tissue infection (Acute) Abscess of dorsum of left hand (Acute) Abscess of bursa, left hand (Acute) Abscess of thumb, left (Acute) Suppurative tenosynovitis of flexor tendon of left hand (Acute) Sepsis (Acute) Cellulitis (Acute) Dehydration (Acute) Hypokalemia (Acute) MSSA bacteremia (Acute) Knee effusion, right (Acute) Knee pain, right (Acute) Acute pancreatitis (Resolved) Gastroenteritis (Resolved) RECOMMENDATIONS: 1. Continue antimicrobial coverage per infectious diseases recommendations. 2. Pain control per hospitalist. 3. Encourage incentive spirometer use while in bed. 4. Consider endoscopy once medically stable. 5. Hemodynamically stable on room air. Will sign off from a critical care perspective. IMPRESSIONS: 1. Severe sepsis secondary to staph bacteremia due to complex necrotizing diabetic hand abscess The patient presented with left hand swelling and erythema and is now POD #1/#5 s/p excisional debridement. Blood cultures were noted to be positive for MSSA. Infectious diseases is currently following to assist with antimicrobial management. Repeat blood cultures remain positive for staph. Surface echocardiogram did not reveal evidence of valvular vegetations, but ALIS is positive. The patient's right knee effusion was also tapped by orthopedics, who felt the fluid collection was reactive in nature. However, patient currently he modynamically stable on room air. Will sign off from a critical care perspective. Please call with further issues. 2. Abnormal chest CT with bilateral cavitary lung lesions The patient's CT chest was personally reviewed. The imaging findings seem most consistent with septic emboli in the setting of #1. I have a low clinical index of suspicion for underlying pulmonary TB. Continue antibiotics and supportive measures as noted above. Encourage incentive spirometer use while in bed. Repeat chest imaging again demonstrated patchy bilateral infiltrates with cavitary lesions concerning for septic emboli in the setting of #1. Patient can receive a repeat CAT scan in 6-8 weeks after IV antibiotics to ensure resolution. 3. Unintentional weight loss Concern for some form of occult underlying malignancy, especially in light of occult positive stools. Surgery to consider endoscopy once medically stabilized. 4. Personal history of HCV Hepatitis C PCR currently pending. ID is following. Code Visit Inpatient E&M: 38772 Subs Hosp L2
[2019-02-07 11:10] LABS: Bedside Glucose 222 mg/dL (70-110)
--- NOTE | 2019-02-07 11:22 | PCM.PN.ID ---
Patient Problems: Active and Suspected Problems (Last Reviewed 02/01/19 @ 08:28 by Nan Saucedo DO) Sepsis (Acute) Cellulitis (Acute) Dehydration (Acute) Hypokalemia (Acute) MSSA bacteremia (Acute) Knee effusion, right (Acute) Knee pain, right (Acute) Subjective: Hand hurts, no fever. - Physical Exam General: Alert, Cooperative, No apparent distress Lungs: Clear to auscultation, Normal air movement Cardiovascular: Regular rate, Regular Rhythm Abdomen: Soft, Non Tender, Non-Distended Skin: Ulcer/ Wound - hand wrapped Vital Signs Temp Pulse Resp BP Pulse Ox 98.0 F 83 17 141/90 H 99 02/07/19 08:29 02/07/19 08:29 02/07/19 08:29 02/07/19 08:29 02/07/19 08:29 Oxygen Flow Rate (L/min) 2 Oxygen Delivery Method Room Air Weight: 68.6 kg Body Mass Index (BMI) 19.3 Finger Stick Blood Glucose 212 Intake and Output for Last 24 Hours 02/05/19 02/06/19 02/07/19 23:59 23:59 23:59 Intake Total 1941 / 1941 3807 / 3807 200 / 200 Output Total 2850 / 2850 2825 / 2825 1200 / 1200 Balance -909 / -909 982 / 982 -1000 / -1000 Microbiology Past 72 Hours 02/02/19 11:15 Gram Stain - Final Fluid - Other Body Fluid Culture - Final Culture exhibits no growth. Anaerobic Culture - Final No growth in 5 days. 02/06/19 10:24 Blood Culture - Preliminary Blood Culture (Wb) - Left Forearm 02/05/19 18:09 Blood Culture - Preliminary Blood Culture (Wb) - Right Forearm 02/02/19 18:00 Gram Stain - Final Tissue - Other Wound Culture - Final Staphylococcus aureus Anaerobic Culture - Preliminary Checking for anaerobes, further studies to follow. 02/04/19 12:00 Blood Culture - Preliminary Blood Culture (Wb) - Arm Right Gram Positive Cocci 02/03/19 03:48 Gram Stain - Final Sputum, Expectorated/Coughed Respiratory Culture - Final Staphylococcus aureus Presumptive C albicans 02/03/19 13:00 Bacteria Detection (PCR) - Final Blood Culture (Wb) - Arm Left Staphylococcus aureus Blood Culture - Preliminary Staphylococcus aureus 02/03/19 06:50 Urine Culture - Final Urine, Clean Catch Staphylococcus aureus Laboratory Tests Past 24 Hrs 02/04/19 02/06/19 02/07/19 05:00 14:55 04:50 WBC 23.4 H RBC 2.94 L Hgb 9.4 L Hct 26.8 L MCV 91.2 MCH 32.0 MCHC 35.1 RDW 12.5 RDW Differential 41.3 Plt Count 374 MPV 9.0 Diff Path Review Reviewed Sodium Potassium Chloride Carbon Dioxide Anion Gap BUN Creatinine Estim Creat Clear Calc Est GFR (MDRD) Af Amer Est GFR (MDRD) Non-Af BUN/Creatinine Ratio Glucose Calcium S.aureus Protein A PCR POSITIVE H MRSA (PCR) Negative 02/07/19 04:50 WBC RBC Hgb Hct MCV MCH MCHC RDW RDW Differential Plt Count MPV Diff Path Review Sodium 136 Potassium 4.2 Chloride 100 Carbon Dioxide 30.0 Anion Gap 6 BUN 10 Creatinine 0.73 Estim Creat Clear Calc 114.69 Est GFR (MDRD) Af Amer 145 Est GFR (MDRD) Non-Af 120 BUN/Creatinine Ratio 13.8 Glucose 207 H Calcium 8.0 L S.aureus Protein A PCR MRSA (PCR) POC Glucose 02/07/19 02/07/19 02/06/19 11:05 07:57 22:02 POC Glucose 222 H 190 H 214 H 02/06/19 02/06/19 02/06/19 17:51 14:59 11:16 POC Glucose 209 H 212 H 165 H Medical Necessity - Tobacco Use Smoking Status: Former smoker Tobacco Use: Non-smoker Route of nutrition/ use of supplements: [] Nutritional Intake: [] IV Site: [] Canas Catheter: [] - Assessment/Plan Antibiotics: [] Assessment/Plan: [] Active and Suspected Problems (Last Reviewed 02/01/19 @ 08:28 by Nan Saucedo DO) Sepsis (Acute) Cellulitis (Acute) Dehydration (Acute) Hypokalemia (Acute) severe sepsis (leukocytosis, tachycardia, lactic acidosis) with 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 Concern for R sided endocarditis given suspected pulm emboli. - repeat bcx x1 today, bcx (+) 02/04 - TTE showed no veg. ALIS with mitral veg. - Taken to OR 02/[address] Slaby with diffuse abscess and necrosis in his hand. Back to OR 02/06. - knee aspiration by Dr. Marroquin so far consistent with reactive arthritis - has chronic lower back pain and spine tenderness. MRI 02/02 showed no new sign of infection. Last study was 10/2018. - continue cefazolin. Added clinda in AM 02/02 for anti-toxin effect. CT did show gas in the tissues. - will need midline removed if bcx do not clear Cavitary lung lesion - Low suspicion for TB. No hemoptysis, some weight loss. Reports neg PPD in the past. - given his history, imaging, (+) mSSA bacteremia, and that these lung changes are new compared to CT on 01/25, removed d/c neg airflow isolation chronic hep C - neg for HIV and hep B in 10/2018 - HCV pcr was 8 million in 05/2018. Now 7.5 million. Will need outpt eval for treatment. - neg tox screen - denies IVDU Will follow
--- NOTE | 2019-02-07 12:58 | OP.ENDO_ITS ---
02/07/2019 Guido Miller MD [address] [place] [address] [place] [address] Re : Upper GI endoscopy procedure for Merlen[place]ley [place] Dear Dr. Miller This procedure was performed on Thursday, February 07, 2019. My impressions and recommendations are as follows: Impressions : - Normal esophagus. - Normal stomach. Biopsied. - Normal first portion of the duodenum and second portion of the duodenum. Recommendations : - Await pathology results. - My office will telephone with pathology results in 1-2 weeks - Continue present medications. My findings are described in the full procedure note, which is enclosed. If I can be of further assistance, please feel free to contact me at Doctor phone number(s): , Work: . Sincerely, MD Vanessa Rivero MD 02/07/2019 12:58:10 PM This report has been signed electronically.
--- NOTE | 2019-02-07 13:00 | OP.ENDO_ITS ---
02/07/2019 Guido Miller MD [address] [place] [address] [place] [address] Re : Colonoscopy procedure for Caden West Dear Dr. Miller This procedure was performed on Thursday, February 07, 2019. My impressions and recommendations are as follows: Impressions : - One 5 to 10 mm polyp in the cecum, removed with a hot snare. Resected and retrieved. - Non-bleeding internal hemorrhoids. Recommendations : - Repeat colonoscopy date to be determined after pending pathology results are reviewed for surveillance based on pathology results. - My office will telephone with pathology results in 1-2 weeks - Continue present medications. My findings are described in the full procedure note, which is enclosed. If I can be of further assistance, please feel free to contact me at Doctor phone number(s): , Work: . Sincerely, MD Vanessa Rivero MD 02/07/2019 1:00:38 PM This report has been signed electronically.
[2019-02-07] MEDS: Pantoprazole Sodium 40 MG Tablet PO ×2 (13:56→21:05)
[2019-02-07] MEDS: Lisinopril 20 MG Tablet PO (13:56)
[2019-02-07] MEDS: Gabapentin 300 MG Capsule PO (13:56)
[2019-02-07] MEDS: Metoprolol Tartrate 25 MG Tablet PO ×2 (14:04→21:05)
[2019-02-07 14:21] LABS: Bedside Glucose 217 mg/dL (70-110)
[2019-02-07] MEDS: Insulin Lispro 100 UNIT/ML INSULN.PEN SC (16:11)
[2019-02-07] MEDS: Glucerna Shake 120 ML LIQUID PO ×2 (16:17→20:46)
[2019-02-07 16:25] LABS: Bedside Glucose 231 mg/dL (70-110)
--- NOTE | 2019-02-07 16:36 | CASEMGMT ---
Social Work: Met with patient and in room. Patient's states that decision has been made for patient to go to a SNF in [place]. Patient's does not know the name of the facility but will call this SW when she has gotten the name. Support given. Will continue to follow to assist as needed with D/C planning. REBECCA Nicole
--- NOTE | 2019-02-07 18:03 | PCM.PN.SRG ---
Patient Problems: Active and Suspected Problems (Last Reviewed 02/01/19 @ 08:28 by Nan Saucedo DO) Sepsis (Acute) Cellulitis (Acute) Dehydration (Acute) Hypokalemia (Acute) MSSA bacteremia (Acute) Knee effusion, right (Acute) Knee pain, right (Acute) Subjective: Postop #1 and postop #5 Patient complains of hand pain. - Physical Exam General: Alert, Oriented x3 HEENT: PERRLA, EOMI Oral: Moist Mucosa Neck: Supple Abdomen: Soft, Non-Distended Skin: Ulcer/ Wound - multiple wounds left thumb, thenar eminence, and dorsum left hand are stable. Additional wounds on the dorsum of the hand and the midpalm are stable. No active bleeding. No further evidence of pus or infection noted. Swelling slowly resolving. Some granulation tissue seen. Irrigated wounds with saline. This was a painful dressing change. Wounds redressed with Silver dressing. Dressing change was painful and patient needed IV analgesia. Concerned about early RSD. Neurological: Cranial nerves II-XII grossly intact Psych/Mental Status: Normal Affect, Appropriate Vital Signs Temp Pulse Resp BP Pulse Ox 97.6 F L 83 18 129/80 H 97 02/07/19 17:36 02/07/19 17:36 02/07/19 17:36 02/07/19 17:36 02/07/19 17:36 Oxygen Flow Rate (L/min) 2 Oxygen Delivery Method Room Air Weight: 151 lb 3.794 oz Body Mass Index (BMI) 19.3 Finger Stick Blood Glucose 212 Intake and Output for Last 24 Hours 02/05/19 02/06/19 02/07/19 23:59 23:59 23:59 Intake Total 1941 / 1941 3807 / 3807 1845 / 1845 Output Total 2850 / 2850 2825 / 2825 2950 / 2950 Balance -909 / -909 982 / 982 -1105 / -1105 Microbiology Past 72 Hours 02/06/19 14:55 Gram Stain - Final Tissue - Hand Wound Culture - Preliminary Staphylococcus aureus 02/02/19 09:47 Blood Culture - Final Blood Culture (Wb) - Right Forearm Gram Positive Cocci 02/02/19 11:15 Gram Stain - Final Fluid - Other Body Fluid Culture - Final Culture exhibits no growth. Anaerobic Culture - Final No growth in 5 days. 02/06/19 10:24 Blood Culture - Preliminary Blood Culture (Wb) - Left Forearm 02/05/19 18:09 Blood Culture - Preliminary Blood Culture (Wb) - Right Forearm 02/02/19 18:00 Gram Stain - Final Tissue - Other Wound Culture - Final Staphylococcus aureus Anaerobic Culture - Preliminary Checking for anaerobes, further studies to follow. 02/04/19 12:00 Blood Culture - Preliminary Blood Culture (Wb) - Arm Right Gram Positive Cocci 02/03/19 03:48 Gram Stain - Final Sputum, Expectorated/Coughed Respiratory Culture - Final Staphylococcus aureus Presumptive C albicans 02/03/19 13:00 Bacteria Detection (PCR) - Final Blood Culture (Wb) - Arm Left Staphylococcus aureus Blood Culture - Preliminary Staphylococcus aureus 02/03/19 06:50 Urine Culture - Final Urine, Clean Catch Staphylococcus aureus Laboratory Tests Past 24 Hrs 02/01/19 02/07/19 02/07/19 16:36 04:50 04:50 WBC 23.4 H RBC 2.94 L Hgb 9.4 L Hct 26.8 L MCV 91.2 MCH 32.0 MCHC 35.1 RDW 12.5 RDW Differential 41.3 Plt Count 374 MPV 9.0 Sodium 136 Potassium 4.2 Chloride 100 Carbon Dioxide 30.0 Anion Gap 6 BUN 10 Creatinine 0.73 Estim Creat Clear Calc 114.69 Est GFR (MDRD) Af Amer 145 Est GFR (MDRD) Non-Af 120 BUN/Creatinine Ratio 13.8 Glucose 207 H Calcium 8.0 L Urine Total Protein 186.4 Urine Albumin 38.3 U Fphot-2-Rioqkrxe 2.9 U Ghbge-5-Shfhzicl 13.6 U Beta Globulin 20.2 U Gamma Globulin 25.0 U PEP M-Haris Ur Immunofix PEP Note Comment POC Glucose 02/07/19 02/07/19 02/07/19 16:10 13:52 11:05 POC Glucose 231 H 217 H 222 H 02/07/19 02/06/19 02/06/19 07:57 22:02 17:51 POC Glucose 190 H 214 H 209 H Medical Necessity - Tobacco Use Smoking Status: Former smoker Tobacco Use: Non-smoker Assessment/Plan All Active Problems (Last Reviewed 02/01/19 @ 08:28 by Nan Saucedo DO) Necrotizing soft tissue infection (Acute) Abscess of dorsum of left hand (Acute) Abscess of bursa, left hand (Acute) Abscess of thumb, left (Acute) Suppurative tenosynovitis of flexor tendon of left hand (Acute) Sepsis (Acute) Cellulitis (Acute) Dehydration (Acute) Hypokalemia (Acute) MSSA bacteremia (Acute) Knee effusion, right (Acute) Knee pain, right (Acute) Acute pancreatitis (Resolved) Gastroenteritis (Resolved) 1. 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 2. Necrotizing diabetic abscess thenar emininence left palm extending through thenar muscles and first dorsal interosseous muscle. 3. Necrotizing diabetic abscess dorsum left hand at first webspace extending through first dorsal interosseous muscle and thenar muscles. 4. Suppurative flexor tenosynovitis. 5. Diabetes mellitus. 6. Sepsis. 7. s/p surgical preparation left thumb and thenar eminence and dorsum hand over first webspace with incision and drainage and excisional debridement complex necrotizing diabetic abscesses (33 cm2) and incision and drainage tendon sheath left thumb for suppurative flexor tenosynovitis and incision and drainage necrotizing diabetic abscess dorsum left thumb involving extensor tendon with tenosynovitis and incision and drainage necrotizing diabetic abscess thenar eminence left palm extending through thenar muscles (abductor pollicis brevis, flexor pollicis brevis, opponens pollicis, and adductor pollicis) and first dorsal interosseous muscle and incision and drainage necrotizing diabetic abscess first dorsal webspace left hand extending through first dorsal interosseous muscle and thenar muscles (abductor pollicis brevis, flexor pollicis brevis, opponens pollicis, and adductor pollicis). 8. Anemia of chronic disease, acute on chronic. 9. Early RSD. Patient did not tolerate the Silver dressing change well today. He needed IV analgesia. He had increased pain and I am concerned about RSD. Added Zoloft and Procardia XL to be held if SBP <110 mmHg. The increased Neurontin has been helpful. Swelling slowly resolving. Less than preop. No further pus seen in the wounds. With the severity of the infection, I anticipate the swelling will take several days to resolve. I irrigated the wounds with saline today. Some granulation tissue seen. Operative culture shows Staphylococcus aureus thus far. Presently he is on Ancef and Cleocin. With the severity of the infection with pus diffuse throughout the thumb with suppurative flexor tenosynovitis and thenar space with extension to dorsum of hand, he will need IV antibiotics for 6 weeks. Infectious Diseases is on board for antibiotic management. Will evaluate the hand wounds closely. His WBC is decreasing slowly. It is 23.4 today. His temps have stabilized as he has been afebrile last several days. The WBC is decreasing but very slowly. Will plan on another operative debridement and irrigation and drainage procedure toward the end of the week. Patient voices understanding. I think the washout yesterday was helpful. No pus was seen but there was still some residual fat necrosis that was debrided. Extra incisions did not show any pus either so no progression seen from the thenar space and thumb area. Keep left hand elevated. Patient will need aggressive OT for range of motion exercises, strengthening, and edema management after discharge to minimize stiffness. Patient is at high risk for residual stiffness in his left thumb and hand. Anticipate increased metabolic demands from the infection and the surgical wounds. Prealbumin was <3 Encourage nutritional supplementation with protein to help the healing process. With the complexity of the wound and the need for IV antibiotics, patient needs to go to an ECF. Evaluation in process.
--- NOTE | 2019-02-07 19:48 | PN_ITS ---
Patient Problems: Active and Suspected Problems (Last Reviewed 02/01/19 @ 08:28 by Nan Saucedo DO) Sepsis (Acute) Cellulitis (Acute) Dehydration (Acute) Hypokalemia (Acute) MSSA bacteremia (Acute) Knee effusion, right (Acute) Knee pain, right (Acute) Subjective: Patient is a 53-year-old male who presented to the emergency department at [facility] on 02/01/2019 complaining of back pain, abdominal pain and swelling with redness and increased warmth of his left hand. Past medical history is significant for poorly controlled diabetes mellitus type 2, chronic back pain secondary to lumbar canal stenosis, lumbar foraminal stenosis, hypertension, pancreatitis, hyperlipidemia, hepatitis C, diabetic ulcers on his feet, unexplained weight loss and abdominal pain. He was diagnosed with severe sepsis secondary to cellulitis with abscess of the left hand. Dr. Rankin was consulted and the patient was taken to surgery for incision and drainage on 02/02/2019. Wound cultures cultures grew methicillin sensitive staph aureus. Multiple blood cultures have been positive for MSSA including cultures from 02/01, 02/02, 02/03 and 02/04. Cultures from 02/05 and 02/06 are growing gram- positive cocci in clusters. He has septic emboli to his lungs with cavitary lesions and the sputum is growing MSSA. Urine is also growing MSSA. ALIS was done on 02/06/2019 and showed probable vegetations on the mitral valve. The tricuspid valve appeared normal. He is being followed by Dr. Cherry. Dr. Rankin took him back to surgery for washout/debridement on 02/06/2019. He has not complained about abdominal pain since he was started on a PPI. Stool was Hemoccult positive. Hemoglobin is stable. Dr. Fletcher took the patient to the endoscopy suite today for an EGD which showed a normal esophagus, normal stomach and a normal first portion of the duodenum and second portion of the duodenum. The stomach was biopsied. Colonoscopy was also done and revealed 1 5-10 mm polyp in the cecum which was removed with a hot snare. There were also nonbleeding internal hemorrhoids. Day #7 antibiotics clindamycin and Ancef All events of the past 24 hours of been reviewed. He continues to be afebrile. Vital signs are stable. He is 97% saturated on room air. All lab was personally reviewed: White blood cell count is 23.4. Hemoglobin is stable at 9.4 and the platelets are within normal limits BMP is remarkable only for an elevated glucose at 207. Blood cultures from 02/06 and 02/05 are growing gram-positive cocci in clusters. He continues to complain of left hand pain. He denies diarrhea and also denies mouth sores or painful swallowing. He has not mentioned abdominal pain nor nausea since he was admitted to the hospital and placed on a PPI. He has been taking IV Dilaudid 2 mg nearly every 3 hours. Dilaudid tablets were ordered by Dr. Rankin today but he has not tried the Dilaudid tablets. He is also getting Valium for muscle spasms. He does have a history of drug addiction with polysubstances in the past. He is overmedicated and extremely lethargic. He will take as much narcotic as he can get. His states he is chronically drug seeking. - Physical Exam General: Alert, Oriented x3, Cooperative, Lethargic - He is slumped over in the bed and his head is hanging nearly on his chest., - - Drowsy, speech is somewhat slurred but this seems to be his baseline HEENT: Atraumatic Oral: Moist Mucosa, No Gingival or Mucosal Lesions/ Ulcerations, - - Poor dentition Lungs: Clear to auscultation Cardiovascular: Regular rate, Regular Rhythm, Normal S1, Normal S2, No murmurs, No Gallop Abdomen: Bowel Sounds Present, Soft, Non Tender, Non-Distended Extremities: No clubbing, No cyanosis, No edema, No Calf Tenderness Skin: Ulcer/ Wound - The wound was not examined today because the dressings are changed by Dr. Rankin. Vital Signs Temp Pulse Resp BP Pulse Ox 97.6 F L 83 18 129/80 H 97 02/07/19 17:36 02/07/19 18:58 02/07/19 17:36 02/07/19 17:36 02/07/19 17:36 Oxygen Flow Rate (L/min) 2 Oxygen Delivery Method Room Air Weight: 151 lb 3.794 oz Body Mass Index (BMI) 19.3 Finger Stick Blood Glucose 212 Intake and Output for Last 24 Hours 02/05/19 02/06/19 02/07/19 23:59 23:59 23:59 Intake Total 1941 / 1941 3807 / 3807 1845 / 1845 Output Total 2850 / 2850 2825 / 2825 2950 / 2950 Balance -909 / -909 982 / 982 -1105 / -1105 Microbiology Past 72 Hours 02/06/19 14:55 Gram Stain - Final Tissue - Hand Wound Culture - Preliminary Staphylococcus aureus 02/02/19 09:47 Blood Culture - Final Blood Culture (Wb) - Right Forearm Gram Positive Cocci 02/02/19 11:15 Gram Stain - Final Fluid - Other Body Fluid Culture - Final Culture exhibits no growth. Anaerobic Culture - Final No growth in 5 days. 02/06/19 10:24 Blood Culture - Preliminary Blood Culture (Wb) - Left Forearm 02/05/19 18:09 Blood Culture - Preliminary Blood Culture (Wb) - Right Forearm 02/02/19 18:00 Gram Stain - Final Tissue - Other Wound Culture - Final Staphylococcus aureus Anaerobic Culture - Preliminary Checking for anaerobes, further studies to follow. 02/04/19 12:00 Blood Culture - Preliminary Blood Culture (Wb) - Arm Right Gram Positive Cocci 02/03/19 03:48 Gram Stain - Final Sputum, Expectorated/Coughed Respiratory Culture - Final Staphylococcus aureus Presumptive C albicans 02/03/19 13:00 Bacteria Detection (PCR) - Final Blood Culture (Wb) - Arm Left Staphylococcus aureus Blood Culture - Preliminary Staphylococcus aureus 02/03/19 06:50 Urine Culture - Final Urine, Clean Catch Staphylococcus aureus Laboratory Tests Past 24 Hrs 02/01/19 02/07/19 02/07/19 16:36 04:50 04:50 WBC 23.4 H RBC 2.94 L Hgb 9.4 L Hct 26.8 L MCV 91.2 MCH 32.0 MCHC 35.1 RDW 12.5 RDW Differential 41.3 Plt Count 374 MPV 9.0 Sodium 136 Potassium 4.2 Chloride 100 Carbon Dioxide 30.0 Anion Gap 6 BUN 10 Creatinine 0.73 Estim Creat Clear Calc 114.69 Est GFR (MDRD) Af Amer 145 Est GFR (MDRD) Non-Af 120 BUN/Creatinine Ratio 13.8 Glucose 207 H Calcium 8.0 L Urine Total Protein 186.4 Urine Albumin 38.3 U Vvrtx-[id number] 2.9 U Kluuq-7-Imdnwela 13.6 U Beta Globulin 20.2 U Gamma Globulin 25.0 U PEP M-Haris Ur Immunofix PEP Note Comment POC Glucose 02/07/19 02/07/19 02/07/19 16:10 13:52 11:05 POC Glucose 231 H 217 H 222 H 02/07/19 02/06/19 07:57 22:02 POC Glucose 190 H 214 H Medical Necessity - Tobacco Use Smoking Status: Former smoker Tobacco Use: Non-smoker Assessment/Plan All Active Problems (Last Reviewed 02/01/19 @ 08:28 by Nan Saucedo DO) Necrotizing soft tissue infection (Acute) Abscess of dorsum of left hand (Acute) Abscess of bursa, left hand (Acute) Abscess of thumb, left (Acute) Suppurative tenosynovitis of flexor tendon of left hand (Acute) Sepsis (Acute) Cellulitis (Acute) Dehydration (Acute) Hypokalemia (Acute) MSSA bacteremia (Acute) Knee effusion, right (Acute) Knee pain, right (Acute) Acute pancreatitis (Resolved) Gastroenteritis (Resolved) Impressions 1. Sepsis secondary to cellulitis of the left hand with bacteremia secondary to methicillin sensitive staph aureus. BC on 02/02 still + for MSSA. If the culture from today is still + will likely need a ALIS. 2. necrotic infection with abscess of the 3. Controlled diabetes mellitus type 2 4. Pseudohyponatremia secondary to markedly increased blood sugar 5. Hypokalemia-resolved 6. Abdominal pain associated with nausea and sometimes emesis - better since started on a PPI 7. Anemia with heme positive stool 8. Hypomagnesemia 9. Malnutrition-severe 10. Dehydration - resolved 11. Hyperlipidemia 12. Hepatitis C antibody positive 13. Unintentional weight loss 14. Chronic back pain with lumbar canal stenosis at L4-5 and L5-S1 secondary to disc disease and facet arthropathy 15. Indeterminate cortical low attenuation change in the right mid cortex not seen on previous examination of 11/14/2018. The area measures 1.6 x 1.5 x 1.4 cm and is not a simple cyst. Malignancy cannot be ruled out at this time...Will need a bx going forward once infection is cleared. ? whether it could be an abscess? 16. Former smoker 17. right knee effusion-likely reactive arthritis 18. Multiple bilateral pulmonary cavitary lesions-due to septic emboli.....increased infiltrates today despite appropriate antibiotics 19. ST with a normal temp - EKG without evidence of ischemia. TSH normal at admission 20. 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 Colon polyp Continue Ancef and clindamycin Appreciate Dr. Cherry's help Dr. Rankin will likely need to take back to surgery again at some point and he is following daily Adjust insulin to get the blood sugars under 200 consistently Decrease the Dilaudid to 1 mg IV every 4 hours Continue Dilaudid tabs ordered by Dr. Rankin This gentleman is very overmedicated and still c/o 10/10 pain. We need to start cutting back so he is at least awake during the day.......would like to get him off the IV narcotics and onto an oral regimen at some point. When he was getting 1 mg of Dilaudid he could at lease talk to me and now he is very obtunded and slurring speech. We can not be guided by his complaints of pain.......look at the BP and the HR and his ability to participate in PT. Code Visit Inpatient E&M: 20661 Subs Hosp L3
[2019-02-07] MEDS: HYDROmorphone 2 MG TABLET 4 MG PO (21:05)
[2019-02-07] MEDS: Sertraline 50 MG Tablet PO (21:05)
[2019-02-07] MEDS: Atorvastatin Calcium 40 MG Tablet PO (21:06)
[2019-02-07 21:16] LABS: Bedside Glucose 157 mg/dL (70-110)
[2019-02-08] VITALS (12 sets, daily range): BP systolic 106–139; BP diastolic 58–79; PULSE 75–97; RESP 16; TEMP 36.6–37.4; O2SAT 97–100
[2019-02-08] MEDS: HYDROmorphone 1 MG/ML Syringe IV ×7 (00:19→21:23)
[2019-02-08] MEDS: 0.9% NaCl Peripheral Flush Adult/Peds IV ×9 (00:20→21:23)
[2019-02-08] MEDS: diazePAM 5 MG Tablet PO (04:42)
[2019-02-08] MEDS: Cefazolin 2 GM in 0.9% Normal Saline 100 ML IV ×3 (05:02→21:17)
[2019-02-08 05:17] LABS: Hematocrit 26.7 % (40-54); Hemoglobin 9.2 g/dl (13.0-16.5); Mean Corp Hgb Conc 34.5 g/gl (32-36); Mean Corpuscular Hgb 31.8 pg (27.0-32.0); Mean Corpuscular Volume 92.4 fL (80-94); Mean Platelet Vol. 9.1 fl (6.2-12.0); Platelet Count 410 K/mm3 (150-450); RBC Distribution Width SD 39.1 fl (35.1-43.9); Red Blood Count 2.89 M/mm3 (4.6-6.2); White Blood Count 18.1 K/mm3 (4.4-11.0)
[2019-02-08 05:19] LABS: Anion Gap 3 (5-15); BUN 11 mg/dL (7-18); BUN/Creat Ratio 13.8 RATIO (10-20); Calcium,Total 8.2 mg/dL (8.5-10.1); Chloride 100 mmol/L (98-107); EST Glomerular Filtration Rate 108 mL/min (>60); Est Glom Filt Rate - Afr Amer 131 mL/min (>60); Estimated Creatinine Clearance 104.81 ml/min; Glucose 239 mg/dL (74-106); Potassium 4.2 mmol/L (3.5-5.1); Scan Indicated on CBC? Y/N NO; Sodium Level 136 mmol/L (136-145)
[2019-02-08 07:11] LABS: Bedside Glucose 282 mg/dL (70-110)
[2019-02-08] MEDS: Iron Polysaccharide Complex 150 MG CAPSULE PO (07:41)
[2019-02-08] MEDS: Gabapentin 300 MG Capsule PO ×3 (07:41→17:10)
[2019-02-08] MEDS: Magnesium Oxide 400 MG Tablet PO (07:41)
[2019-02-08] MEDS: Insulin Lispro 100 UNIT/ML INSULN.PEN SC ×2 (07:42→11:27)
[2019-02-08] MEDS: Glucerna Shake 120 ML LIQUID PO ×4 (09:04→21:17)
[2019-02-08] MEDS: NIFEdipine 30 MG Tablet PO (09:04)
[2019-02-08] MEDS: Enoxaparin 40 MG/0.4 ML Syringe SC (09:04)
[2019-02-08] MEDS: Sertraline 50 MG Tablet PO (09:04)
[2019-02-08] MEDS: Pantoprazole Sodium 40 MG Tablet PO ×2 (09:04→21:18)
[2019-02-08] MEDS: Metoprolol Tartrate 25 MG Tablet PO ×2 (09:05→21:18)
[2019-02-08] MEDS: Lisinopril 20 MG Tablet PO (09:05)
[2019-02-08 11:25] LABS: Bedside Glucose 159 mg/dL (70-110)
--- NOTE | 2019-02-08 12:07 | CASEMGMT ---
MATTHEW spoke with patient's to see the name of the senior living she would like her to go to . She said it is called [facility], [address] [place] [address] , [place] [address], . MATTHEW will check in with the facility for admissions fax number. Arely RANKIN
--- NOTE | 2019-02-08 12:58 | PCM.PN.ID ---
Patient Problems: Active and Suspected Problems (Last Reviewed 02/01/19 @ 08:28 by Nan Saucedo DO) Sepsis (Acute) Cellulitis (Acute) Dehydration (Acute) Hypokalemia (Acute) MSSA bacteremia (Acute) Knee effusion, right (Acute) Knee pain, right (Acute) Subjective: C/o pain today in hand and R knee. No fever. - Physical Exam General: Alert, Cooperative, No apparent distress Lungs: Clear to auscultation, Normal air movement Cardiovascular: Regular rate, Regular Rhythm Abdomen: Soft, Non Tender, Non-Distended Skin: No rashes Vital Signs Temp Pulse Resp BP Pulse Ox 97.9 F 97 16 139/79 H 99 02/08/19 09:00 02/08/19 09:05 02/08/19 09:00 02/08/19 09:00 02/08/19 09:00 Oxygen Flow Rate (L/min) 2 Oxygen Delivery Method Room Air Weight: 66 kg Body Mass Index (BMI) 19.3 Finger Stick Blood Glucose 212 Intake and Output for Last 24 Hours 02/06/19 02/07/19 02/08/19 23:59 23:59 23:59 Intake Total 3807 / 3807 2417 / 2417 1860 / 1860 Output Total 2825 / 2825 3775 / 3775 1175 / 1175 Balance 982 / 982 -1358 / -1358 685 / 685 Microbiology Past 72 Hours 02/02/19 18:00 Gram Stain - Final Tissue - Other Wound Culture - Final Staphylococcus aureus Anaerobic Culture - Final No anaerobic bacteria isolated. 02/06/19 14:55 Gram Stain - Final Tissue - Hand Wound Culture - Preliminary Staphylococcus aureus Anaerobic Culture - Preliminary Checking for anaerobes, further studies to follow. 02/06/19 10:24 Blood Culture - Preliminary Blood Culture (Wb) - Left Forearm 02/05/19 18:09 Blood Culture - Preliminary Blood Culture (Wb) - Right Forearm Staphylococcus aureus 02/02/19 09:47 Blood Culture - Final Blood Culture (Wb) - Right Forearm Gram Positive Cocci 02/02/19 11:15 Gram Stain - Final Fluid - Other Body Fluid Culture - Final Culture exhibits no growth. Anaerobic Culture - Final No growth in 5 days. 02/04/19 12:00 Blood Culture - Preliminary Blood Culture (Wb) - Arm Right Gram Positive Cocci 02/03/19 03:48 Gram Stain - Final Sputum, Expectorated/Coughed Respiratory Culture - Final Staphylococcus aureus Presumptive C albicans 02/03/19 13:00 Bacteria Detection (PCR) - Final Blood Culture (Wb) - Arm Left Staphylococcus aureus Blood Culture - Preliminary Staphylococcus aureus 02/03/19 06:50 Urine Culture - Final Urine, Clean Catch Staphylococcus aureus Laboratory Tests Past 24 Hrs 02/08/19 02/08/19 04:45 04:45 WBC 18.1 H RBC 2.89 L Hgb 9.2 L Hct 26.7 L MCV 92.4 MCH 31.8 MCHC 34.5 RDW 12.0 RDW Differential 39.1 Plt Count 410 MPV 9.1 Sodium 136 Potassium 4.2 Chloride 100 Carbon Dioxide 33.0 H Anion Gap 3 L BUN 11 Creatinine 0.80 Estim Creat Clear Calc 104.81 Est GFR (MDRD) Af Amer 131 Est GFR (MDRD) Non-Af 108 BUN/Creatinine Ratio 13.8 Glucose 239 H Calcium 8.2 L POC Glucose 02/08/19 02/08/19 02/07/19 11:19 06:50 20:45 POC Glucose 159 H 282 H 157 H 02/07/19 02/07/19 16:10 13:52 POC Glucose 231 H 217 H Medical Necessity - Tobacco Use Smoking Status: Former smoker Tobacco Use: Non-smoker Route of nutrition/ use of supplements: [] Nutritional Intake: [] IV Site: [] Canas Catheter: [] - Assessment/Plan Antibiotics: [] Assessment/Plan: [] Active and Suspected Problems (Last Reviewed 02/01/19 @ 08:28 by Nan Saucedo DO) Sepsis (Acute) Cellulitis (Acute) Dehydration (Acute) Hypokalemia (Acute) severe sepsis (leukocytosis, tachycardia, lactic acidosis) with 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 Concern for R sided endocarditis given suspected pulm emboli. - repeat bcx x1 today, bcx (+) 02/06 - TTE showed no veg. ALIS with mitral veg. - Taken to OR 02/[address] Rankin with diffuse abscess and necrosis in his hand. Back to OR 02/06. May need further I&D. - knee aspiration by Dr. Marroquin so far consistent with reactive arthritis - has chronic lower back pain and spine tenderness. MRI 02/02 showed no new sign of infection. Last study was 10/2018. - continue cefazolin. Added clinda in AM 02/02 for anti-toxin effect. CT did show gas in the tissues. - will need midline removed if bcx do not clear Cavitary lung lesion - Low suspicion for TB. No hemoptysis, some weight loss. Reports neg PPD in the past. - given his history, imaging, (+) mSSA bacteremia, and that these lung changes are new compared to CT on 01/25, removed d/c neg airflow isolation chronic hep C - neg for HIV and hep B in 10/2018 - HCV pcr was 8 million in 05/2018. Now 7.5 million. Will need outpt eval for treatment. - neg tox screen - denies IVDU Will follow
--- NOTE | 2019-02-08 13:18 | PN_ITS ---
<Jennifer Mcallister - Last Filed: 02/08/19 13:44> Patient Problems: Active and Suspected Problems (Last Reviewed 02/01/19 @ 08:28 by Nan Saucedo DO) Sepsis (Acute) Cellulitis (Acute) Dehydration (Acute) Hypokalemia (Acute) MSSA bacteremia (Acute) Knee effusion, right (Acute) Knee pain, right (Acute) Subjective: Patient seen and examined. More alert compared to prior reported assessments. Complains of increased pain. No other current complaints. - Physical Exam General: Alert, Oriented x3, Cooperative HEENT: Atraumatic, PERRLA, EOMI, Normocephalic Neck: Supple, No JVD, Negative Carotid Bruits Lungs: Clear to auscultation, Normal air movement Cardiovascular: Regular rate, Regular Rhythm, Normal S1, Normal S2, No murmurs Abdomen: Bowel Sounds Present, Soft, Non Tender, Non-Distended Extremities: No clubbing, No cyanosis, No edema Skin: - - Left hand dressing clean dry and intact. Musculoskeletal: No Tenderness to Palpation of Joints or Extremities Neurological: Cranial nerves II-XII grossly intact, Neuro grossly intact Psych/Mental Status: Normal Affect, Appropriate Vital Signs Temp Pulse Resp BP Pulse Ox 97.9 F 97 16 139/79 H 99 02/08/19 09:00 02/08/19 09:05 02/08/19 09:00 02/08/19 09:00 02/08/19 09:00 Oxygen Flow Rate (L/min) 2 Oxygen Delivery Method Room Air Weight: 145 lb 8.081 oz Body Mass Index (BMI) 19.3 Finger Stick Blood Glucose 212 Intake and Output for Last 24 Hours 02/06/19 02/07/19 02/08/19 23:59 23:59 23:59 Intake Total 3807 / 3807 2417 / 2417 1860 / 1860 Output Total 2825 / 2825 3775 / 3775 1175 / 1175 Balance 982 / 982 -1358 / -1358 685 / 685 Microbiology Past 72 Hours 02/02/19 18:00 Gram Stain - Final Tissue - Other Wound Culture - Final Staphylococcus aureus Anaerobic Culture - Final No anaerobic bacteria isolated. 02/06/19 14:55 Gram Stain - Final Tissue - Hand Wound Culture - Preliminary Staphylococcus aureus Anaerobic Culture - Preliminary Checking for anaerobes, further studies to follow. 02/06/19 10:24 Blood Culture - Preliminary Blood Culture (Wb) - Left Forearm 02/05/19 18:09 Blood Culture - Preliminary Blood Culture (Wb) - Right Forearm Staphylococcus aureus 02/02/19 09:47 Blood Culture - Final Blood Culture (Wb) - Right Forearm Gram Positive Cocci 02/02/19 11:15 Gram Stain - Final Fluid - Other Body Fluid Culture - Final Culture exhibits no growth. Anaerobic Culture - Final No growth in 5 days. 02/04/19 12:00 Blood Culture - Preliminary Blood Culture (Wb) - Arm Right Gram Positive Cocci 02/03/19 03:48 Gram Stain - Final Sputum, Expectorated/Coughed Respiratory Culture - Final Staphylococcus aureus Presumptive C albicans 02/03/19 13:00 Bacteria Detection (PCR) - Final Blood Culture (Wb) - Arm Left Staphylococcus aureus Blood Culture - Preliminary Staphylococcus aureus Laboratory Tests Past 24 Hrs 02/08/19 02/08/19 04:45 04:45 WBC 18.1 H RBC 2.89 L Hgb 9.2 L Hct 26.7 L MCV 92.4 MCH 31.8 MCHC 34.5 RDW 12.0 RDW Differential 39.1 Plt Count 410 MPV 9.1 Sodium 136 Potassium 4.2 Chloride 100 Carbon Dioxide 33.0 H Anion Gap 3 L BUN 11 Creatinine 0.80 Estim Creat Clear Calc 104.81 Est GFR (MDRD) Af Amer 131 Est GFR (MDRD) Non-Af 108 BUN/Creatinine Ratio 13.8 Glucose 239 H Calcium 8.2 L POC Glucose 02/08/19 02/08/19 02/07/19 11:19 06:50 20:45 POC Glucose 159 H 282 H 157 H 02/07/19 02/07/19 16:10 13:52 POC Glucose 231 H 217 H Medical Necessity - Tobacco Use Smoking Status: Former smoker Tobacco Use: Non-smoker Assessment/Plan All Active Problems (Last Reviewed 02/01/19 @ 08:28 by Nan Saucedo DO) Necrotizing soft tissue infection (Acute) Abscess of dorsum of left hand (Acute) Abscess of bursa, left hand (Acute) Abscess of thumb, left (Acute) Suppurative tenosynovitis of flexor tendon of left hand (Acute) Sepsis (Acute) Cellulitis (Acute) Dehydration (Acute) Hypokalemia (Acute) MSSA bacteremia (Acute) Knee effusion, right (Acute) Knee pain, right (Acute) Acute pancreatitis (Resolved) Gastroenteritis (Resolved) 1. Sepsis secondary to cellulitis/necrotic infection of the left hand with bacteremia secondary to MSSA and associated MV endocarditis-patient has had surgical debridement with Dr. Rankin 02/02 and 02/06. He may require additional I&D. ID following. Continue IV cefazolin and IV clindamycin. Blood cultures continue to be positive as of 02/06. Repeat blood cultures today pending. PRN pain regimen reduced due to lethargy which has improved. Patient demonstrating drug-seeking behavior, recurrently asking for increased pain regimen although noted to be lethargic/vitals stable/participating with therapy. 2. Multiple bilateral cavitary lung lesion-ID following, secondary to septic emboli. Pulmonary following. Plan for repeat CAT scan in 6-8 weeks after IV antibiotics are completed. 3. Anemia with Hemoccult positive stool-Dr. Fletcher consulted. Underwent EGD and colonoscopy. Colonoscopy showed nonbleeding internal hemorrhoids. EGD normal. Hemoglobin stable. Continue iron supplementation. Trend CBC. 4. Right knee effusion secondary to reactive arthritis-Dr. Marroquin consulted who performed knee aspiration. Outpatient follow-up. 5. Chronic hepatitis C-outpatient evaluation/treatment. 6. Type 2 diabetes [id number]-[id number] AC at bedtime with sliding scale insulin. Continue Lantus regimen. 7. Severe protein calorie malnutrition-nutrition consult. 8. Hyperlipidemia-continue statin. 9. Hypertension-continue metoprolol, lisinopril regimen. 10. Former tobacco use-encouraged continued cessation. 11. Chronic back pain-MRI of lumbar spine shows L4-L5 and L5-S1 degenerative changes most prominent at L5-S1. No definite discitis or osteomyelitis. DVT prophylaxis-Lovenox subcu Discharge planning: SNF when medically stable and pending acceptance. This patient was seen by MARLEY Nolasco under the supervision of Dr. Angeles. <Delmi Angeles - Last Filed: 02/08/19 15:14> - Physical Exam Vital Signs Temp Pulse Resp BP Pulse Ox 97.9 F 97 16 139/79 H 99 02/08/19 09:00 02/08/19 09:05 02/08/19 09:00 02/08/19 09:00 02/08/19 09:00 Oxygen Flow Rate (L/min) 2 Oxygen Delivery Method Room Air Weight: 145 lb 8.081 oz Body Mass Index (BMI) 19.3 Finger Stick Blood Glucose 212 Intake and Output for Last 24 Hours 02/06/19 02/07/19 02/08/19 23:59 23:59 23:59 Intake Total 3807 / 3807 2417 / 2417 1860 / 1860 Output Total 2825 / 2825 3775 / 3775 1175 / 1175 Balance 982 / 982 -1358 / -1358 685 / 685 Microbiology Past 72 Hours 02/03/19 13:00 Bacteria Detection (PCR) - Final Blood Culture (Wb) - Arm Left Staphylococcus aureus Blood Culture - Final Staphylococcus aureus 02/02/19 18:00 Gram Stain - Final Tissue - Other Wound Culture - Final Staphylococcus aureus Anaerobic Culture - Final No anaerobic bacteria isolated. 02/06/19 14:55 Gram Stain - Final Tissue - Hand Wound Culture - Preliminary Staphylococcus aureus Anaerobic Culture - Preliminary Checking for anaerobes, further studies to follow. 02/06/19 10:24 Blood Culture - Preliminary Blood Culture (Wb) - Left Forearm 02/05/19 18:09 Blood Culture - Preliminary Blood Culture (Wb) - Right Forearm Staphylococcus aureus 02/02/19 09:47 Blood Culture - Final Blood Culture (Wb) - Right Forearm Gram Positive Cocci 02/02/19 11:15 Gram Stain - Final Fluid - Other Body Fluid Culture - Final Culture exhibits no growth. Anaerobic Culture - Final No growth in 5 days. 02/04/19 12:00 Blood Culture - Preliminary Blood Culture (Wb) - Arm Right Gram Positive Cocci 02/03/19 03:48 Gram Stain - Final Sputum, Expectorated/Coughed Respiratory Culture - Final Staphylococcus aureus Presumptive C albicans Laboratory Tests Past 24 Hrs 02/08/19 02/08/19 04:45 04:45 WBC 18.1 H RBC 2.89 L Hgb 9.2 L Hct 26.7 L MCV 92.4 MCH 31.8 MCHC 34.5 RDW 12.0 RDW Differential 39.1 Plt Count 410 MPV 9.1 Sodium 136 Potassium 4.2 Chloride 100 Carbon Dioxide 33.0 H Anion Gap 3 L BUN 11 Creatinine 0.80 Estim Creat Clear Calc 104.81 Est GFR (MDRD) Af Amer 131 Est GFR (MDRD) Non-Af 108 BUN/Creatinine Ratio 13.8 Glucose 239 H Calcium 8.2 L POC Glucose 02/08/19 02/08/19 02/07/19 11:19 06:50 20:45 POC Glucose 159 H 282 H 157 H 02/07/19 16:10 POC Glucose 231 H Assessment/Plan Hospitalist note: I am seeing this patient in conjunction with Jennifer Mcallister. I independently seen and examined the patient. Progress note above , laboratory data and imaging studies reviewed and I concur with the above treatment plan. Patient seen and examined. No acute events overnight. He complains of left hand and abdominal pain which is chronic. Denies chest pain or shortness of breath. He is afebrile, blood pressure and heart rate are maintained, pulse ox is maintained on room air. - Physical Exam General: Alert, Oriented x3, Cooperative, No apparent distress. HEENT: Atraumatic, PERRLA, EOMI. Neck: Supple, No JVD, Negative Carotid Bruits, Trachea Midline, Thyroid Normal. Lungs: Clear to auscultation, Normal air movement, No rhonchi, No wheeze, No rales. Cardiovascular: Regular rate, Regular Rhythm, Normal S1, Normal S2, PMI Normal. Abdomen: Bowel Sounds Present, Soft, Non Tender, Non-Distended, No Hepato- splenomegaly. Extremities: No clubbing, No cyanosis, No edema Skin: No rashes, No breakdown Neurological: Neuro grossly intact Vital Signs are stable. Assessment and plan: #1 MSSA left hand cellulitis/necrotic infection: Status post incision and drainage. He is on IV cefazolin and IV clindamycin. He has been afebrile, white blood cell count is trending down. Cultures reviewed. Infectious disease on the case. Plan to continue same treatment. #2 mitral Valve MSSA endocarditis: On IV cefazolin and clindamycin as above. Infectious disease on the case, plan as above. Repeat blood cultures pending. #3 MSSA bacteremia: Source is the left hand necrotic wound infection/cellulitis. Plan as above. #4 septic emboli of the lungs: On IV antibiotics as above, pulmonology on the case, plan for repeat CT scan in 6-8 weeks after antibiotics. #5 normocytic anemia: With positive Hemoccult blood. Upper EGD and colonoscopy showed no evidence of active bleeding. Hemoglobin and hematocrit are stable, no indication for transfusion. He is on iron supplement. #6 other chronic medical problems: Stable, continue current medications as above. This note was generated with [employer] dictation software. It may contain incorrect words, spelling, and punctuation that were not noted in checking the note before signing. Code Visit Inpatient E&M: 88527 Subs Hosp L2
--- NOTE | 2019-02-08 13:26 | CASEMGMT ---
MATTHEW called [facility] and spoke with Soraya in admissions. MATTHEW told her about referral and faxed referral. Her fax number is [phone]. Arely VILLARREAL MSW
[2019-02-08 17:21] LABS: Bedside Glucose 115 mg/dL (70-110)
[2019-02-08] MEDS: Atorvastatin Calcium 40 MG Tablet PO (21:18)
[2019-02-08 21:41] LABS: Bedside Glucose 79 mg/dL (70-110)
--- NOTE | 2019-02-08 22:16 | PCM.PN.SRG ---
Patient Problems: Active and Suspected Problems (Last Reviewed 02/01/19 @ 08:28 by Nan Saucedo DO) Sepsis (Acute) Cellulitis (Acute) Dehydration (Acute) Hypokalemia (Acute) MSSA bacteremia (Acute) Knee effusion, right (Acute) Knee pain, right (Acute) Subjective: Postop #6 and #2 Patient is resting comfortably. He has less pain in his hand. - Physical Exam General: Alert, Oriented x3 HEENT: PERRLA, EOMI Oral: Moist Mucosa Neck: Supple Abdomen: Soft, Non-Distended Skin: Ulcer/ Wound - multiple wounds left thumb, thenar eminence, and dorsum left hand are stable. Additional wounds on the dorsum of the hand and the midpalm are stable. No active bleeding. No further evidence of pus or infection noted. Swelling slowly resolving. Some granulation tissue seen. Irrigated wounds with saline. Patient tolerated the dressing change a little better today. Wounds redressed with Silver dressing. Patient needed IV analgesia for the dressing change. Concerned about early RSD. Neurological: Cranial nerves II-XII grossly intact Psych/Mental Status: Normal Affect, Appropriate Vital Signs Temp Pulse Resp BP Pulse Ox 97.8 F 79 16 121/64 H 97 02/08/19 21:10 02/08/19 21:18 02/08/19 21:10 02/08/19 21:18 02/08/19 21:10 Oxygen Flow Rate (L/min) 2 Oxygen Delivery Method Room Air Weight: 145 lb 8.081 oz Body Mass Index (BMI) 19.3 Finger Stick Blood Glucose 212 Intake and Output for Last 24 Hours 02/06/19 02/07/19 02/08/19 23:59 23:59 23:59 Intake Total 3807 / 3807 2417 / 2417 3120 / 3120 Output Total 2825 / 2825 3775 / 3775 1175 / 1175 Balance 982 / 982 -1358 / -1358 1945 / 1945 Microbiology Past 72 Hours 02/03/19 13:00 Bacteria Detection (PCR) - Final Blood Culture (Wb) - Arm Left Staphylococcus aureus Blood Culture - Final Staphylococcus aureus 02/02/19 18:00 Gram Stain - Final Tissue - Other Wound Culture - Final Staphylococcus aureus Anaerobic Culture - Final No anaerobic bacteria isolated. 02/06/19 14:55 Gram Stain - Final Tissue - Hand Wound Culture - Preliminary Staphylococcus aureus Anaerobic Culture - Preliminary Checking for anaerobes, further studies to follow. 02/06/19 10:24 Blood Culture - Preliminary Blood Culture (Wb) - Left Forearm 02/05/19 18:09 Blood Culture - Preliminary Blood Culture (Wb) - Right Forearm Staphylococcus aureus 02/02/19 09:47 Blood Culture - Final Blood Culture (Wb) - Right Forearm Gram Positive Cocci 02/02/19 11:15 Gram Stain - Final Fluid - Other Body Fluid Culture - Final Culture exhibits no growth. Anaerobic Culture - Final No growth in 5 days. 02/04/19 12:00 Blood Culture - Preliminary Blood Culture (Wb) - Arm Right Gram Positive Cocci 02/03/19 03:48 Gram Stain - Final Sputum, Expectorated/Coughed Respiratory Culture - Final Staphylococcus aureus Presumptive C albicans Laboratory Tests Past 24 Hrs 02/08/19 02/08/19 04:45 04:45 WBC 18.1 H RBC 2.89 L Hgb 9.2 L Hct 26.7 L MCV 92.4 MCH 31.8 MCHC 34.5 RDW 12.0 RDW Differential 39.1 Plt Count 410 MPV 9.1 Sodium 136 Potassium 4.2 Chloride 100 Carbon Dioxide 33.0 H Anion Gap 3 L BUN 11 Creatinine 0.80 Estim Creat Clear Calc 104.81 Est GFR (MDRD) Af Amer 131 Est GFR (MDRD) Non-Af 108 BUN/Creatinine Ratio 13.8 Glucose 239 H Calcium 8.2 L POC Glucose 02/08/19 02/08/19 02/08/19 21:28 16:28 11:19 POC Glucose 79 115 H 159 H 02/08/19 06:50 POC Glucose 282 H Medical Necessity - Tobacco Use Smoking Status: Former smoker Tobacco Use: Non-smoker Assessment/Plan All Active Problems (Last Reviewed 02/01/19 @ 08:28 by Nan Saucedo DO) Necrotizing soft tissue infection (Acute) Abscess of dorsum of left hand (Acute) Abscess of bursa, left hand (Acute) Abscess of thumb, left (Acute) Suppurative tenosynovitis of flexor tendon of left hand (Acute) Sepsis (Acute) Cellulitis (Acute) Dehydration (Acute) Hypokalemia (Acute) MSSA bacteremia (Acute) Knee effusion, right (Acute) Knee pain, right (Acute) Acute pancreatitis (Resolved) Gastroenteritis (Resolved) 1. 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 2. Necrotizing diabetic abscess thenar emininence left palm extending through thenar muscles and first dorsal interosseous muscle. 3. Necrotizing diabetic abscess dorsum left hand at first webspace extending through first dorsal interosseous muscle and thenar muscles. 4. Suppurative flexor tenosynovitis. 5. Diabetes mellitus. 6. Sepsis. 7. s/p surgical preparation left thumb and thenar eminence and dorsum hand over first webspace with incision and drainage and excisional debridement complex necrotizing diabetic abscesses (33 cm2) and incision and drainage tendon sheath left thumb for suppurative flexor tenosynovitis and incision and drainage necrotizing diabetic abscess dorsum left thumb involving extensor tendon with tenosynovitis and incision and drainage necrotizing diabetic abscess thenar eminence left palm extending through thenar muscles (abductor pollicis brevis, flexor pollicis brevis, opponens pollicis, and adductor pollicis) and first dorsal interosseous muscle and incision and drainage necrotizing diabetic abscess first dorsal webspace left hand extending through first dorsal interosseous muscle and thenar muscles (abductor pollicis brevis, flexor pollicis brevis, opponens pollicis, and adductor pollicis). 8. Anemia of chronic disease, acute on chronic. 9. Early RSD. Patient tolerated the Silver dressing change better today. He still needed IV analgesia. Concerns about early RSD have not progressed since starting Zoloft and Procardia XL. The increased Neurontin has been helpful. Swelling slowly resolving. Less than preop. No further pus seen in the wounds. With the severity of the infection, I anticipate the swelling will take several days to resolve. I irrigated the wounds with saline today. Some granulation tissue seen. Operative culture shows Staphylococcus aureus thus far. Presently he is on Ancef and Cleocin. With the severity of the infection with pus diffuse throughout the thumb with suppurative flexor tenosynovitis and thenar space with extension to dorsum of hand, he will need IV antibiotics for 6 weeks. Infectious Diseases is on board for antibiotic management. Will evaluate the hand wounds closely. His WBC is decreasing slowly. It is 18.1 today. His temps have stabilized as he has been afebrile last several days. The WBC is decreasing but very slowly. Will plan on another operative debridement and irrigation and drainage procedure toward the end of the week. Patient voices understanding. I think the washout a couple of days ago was helpful. No pus was seen but there was still some residual fat necrosis that was debrided. Extra incisions did not show any pus either so no progression seen from the thenar space and thumb area. Keep left hand elevated. Patient will need aggressive OT for range of motion exercises, strengthening, and edema management after discharge to minimize stiffness. Patient is at high risk for residual stiffness in his left thumb and hand. Anticipate increased metabolic demands from the infection and the surgical wounds. Prealbumin was <3 Encourage nutritional supplementation with protein to help the healing process. With the complexity of the wound and the need for IV antibiotics, patient needs to go to an ECF. Evaluation in process.
[2019-02-09] VITALS (14 sets, daily range): BP systolic 98–124; BP diastolic 51–73; PULSE 82–91; RESP 16–18; TEMP 36.6–36.9; O2SAT 96–100
[2019-02-09] MEDS: 0.9% NaCl Peripheral Flush Adult/Peds IV ×4 (02:29→14:01)
[2019-02-09] MEDS: HYDROmorphone 1 MG/ML Syringe IV ×5 (02:30→20:03)
[2019-02-09] MEDS: Cefazolin 2 GM in 0.9% Normal Saline 100 ML IV ×3 (05:06→21:30)
[2019-02-09 05:29] LABS: Hematocrit 23.5 % (40-54); Hemoglobin 8.2 g/dl (13.0-16.5); Mean Corp Hgb Conc 34.9 g/gl (32-36); Mean Corpuscular Volume 91.8 fL (80-94); Mean Platelet Vol. 8.5 fl (6.2-12.0); Platelet Count 325 K/mm3 (150-450); RBC Distribution Width CV 12.8 % (11.6-14.6); RBC Distribution Width SD 42.9 fl (35.1-43.9); Red Blood Count 2.56 M/mm3 (4.6-6.2); White Blood Count 20.7 K/mm3 (4.4-11.0)
[2019-02-09 05:43] LABS: Anion Gap 6 (5-15); BUN 14 mg/dL (7-18); BUN/Creat Ratio 18.4 RATIO (10-20); Chloride 100 mmol/L (98-107); Creatinine, Serum 0.76 mg/dL (0.70-1.30); EST Glomerular Filtration Rate 114 mL/min (>60); Est Glom Filt Rate - Afr Amer 138 mL/min (>60); Estimated Creatinine Clearance 106.14 ml/min; Glucose 296 mg/dL (74-106); Potassium 3.5 mmol/L (3.5-5.1); Sodium Level 133 mmol/L (136-145)
[2019-02-09 06:03] LABS: Scan Indicated on CBC? Y/N NO
[2019-02-09 07:06] LABS: Bedside Glucose 395 mg/dL (70-110)
[2019-02-09] MEDS: Iron Polysaccharide Complex 150 MG CAPSULE PO (08:20)
[2019-02-09] MEDS: diazePAM 5 MG Tablet PO ×2 (08:20→17:27)
[2019-02-09] MEDS: Gabapentin 300 MG Capsule PO ×3 (08:20→17:26)
[2019-02-09] MEDS: Insulin Lispro 100 UNIT/ML INSULN.PEN SC ×5 (08:20→17:26)
[2019-02-09] MEDS: Magnesium Oxide 400 MG Tablet PO (08:20)
--- NOTE | 2019-02-09 10:03 | PCM.PN.ID ---
Patient Problems: Active and Suspected Problems (Last Reviewed 02/01/19 @ 08:28 by Nan Saucedo DO) Sepsis (Acute) Cellulitis (Acute) Dehydration (Acute) Hypokalemia (Acute) MSSA bacteremia (Acute) Knee effusion, right (Acute) Knee pain, right (Acute) Subjective: Pain better today, hand and knee still sore, no fever, no n/v/d. - Physical Exam General: Alert, Cooperative, No apparent distress Lungs: Clear to auscultation, Normal air movement Cardiovascular: Regular rate, Regular Rhythm Abdomen: Soft, Non Tender, Non-Distended Skin: Ulcer/ Wound - L hand wrapped, mild R knee swelling Vital Signs Temp Pulse Resp BP Pulse Ox 97.9 F 85 16 119/73 96 02/09/19 08:25 02/09/19 08:25 02/09/19 08:25 02/09/19 08:25 02/09/19 08:25 Oxygen Flow Rate (L/min) 2 Oxygen Delivery Method Room Air Weight: 64.4 kg Body Mass Index (BMI) 19.3 Finger Stick Blood Glucose 212 Intake and Output for Last 24 Hours 02/07/19 02/08/19 02/09/19 23:59 23:59 23:59 Intake Total 2417 / 2417 4439 / 4439 1891 / 1891 Output Total 3775 / 3775 1175 / 1175 350 / 350 Balance -1358 / -1358 3264 / 3264 1541 / 1541 Microbiology Past 72 Hours 02/06/19 14:55 Gram Stain - Final Tissue - Hand Wound Culture - Final Staphylococcus aureus Anaerobic Culture - Preliminary Checking for anaerobes, further studies to follow. 02/05/19 18:09 Blood Culture - Preliminary Blood Culture (Wb) - Right Forearm Staphylococcus aureus 02/03/19 13:00 Bacteria Detection (PCR) - Final Blood Culture (Wb) - Arm Left Staphylococcus aureus Blood Culture - Final Staphylococcus aureus 02/02/19 18:00 Gram Stain - Final Tissue - Other Wound Culture - Final Staphylococcus aureus Anaerobic Culture - Final No anaerobic bacteria isolated. 02/06/19 10:24 Blood Culture - Preliminary Blood Culture (Wb) - Left Forearm 02/02/19 09:47 Blood Culture - Final Blood Culture (Wb) - Right Forearm Gram Positive Cocci 02/02/19 11:15 Gram Stain - Final Fluid - Other Body Fluid Culture - Final Culture exhibits no growth. Anaerobic Culture - Final No growth in 5 days. 02/04/19 12:00 Blood Culture - Preliminary Blood Culture (Wb) - Arm Right Gram Positive Cocci 02/03/19 03:48 Gram Stain - Final Sputum, Expectorated/Coughed Respiratory Culture - Final Staphylococcus aureus Presumptive C albicans Laboratory Tests Past 24 Hrs 02/09/19 02/09/19 05:05 05:05 WBC 20.7 H RBC 2.56 L Hgb 8.2 L Hct 23.5 L MCV 91.8 MCH 32.0 MCHC 34.9 RDW 12.8 RDW Differential 42.9 Plt Count 325 MPV 8.5 Sodium 133 L Potassium 3.5 Chloride 100 Carbon Dioxide 27.0 Anion Gap 6 BUN 14 Creatinine 0.76 Estim Creat Clear Calc 106.14 Est GFR (MDRD) Af Amer 138 Est GFR (MDRD) Non-Af 114 BUN/Creatinine Ratio 18.4 Glucose 296 H Calcium 8.0 L POC Glucose 02/09/19 02/08/19 02/08/19 06:50 21:28 16:28 POC Glucose 395 H 79 115 H 02/08/19 11:19 POC Glucose 159 H Medical Necessity - Tobacco Use Smoking Status: Former smoker Tobacco Use: Non-smoker Route of nutrition/ use of supplements: [] Nutritional Intake: [] IV Site: [] Canas Catheter: [] - Assessment/Plan Antibiotics: [] Assessment/Plan: [] Active and Suspected Problems (Last Reviewed 02/01/19 @ 08:28 by Nan Saucedo DO) Sepsis (Acute) Cellulitis (Acute) Dehydration (Acute) Hypokalemia (Acute) severe sepsis (leukocytosis, tachycardia, lactic acidosis) with 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 Concern for R sided endocarditis given suspected pulm emboli. - repeat bcx x1 today, bcx (+) 02/06 - TTE showed no veg. ALIS with mitral veg. - Taken to OR 02/[address] Rankin with diffuse abscess and necrosis in his hand. Back to OR 02/06. May need further I&D. - knee aspiration by Dr. Marroquin so far consistent with reactive arthritis - has chronic lower back pain and spine tenderness. MRI 02/02 showed no new sign of infection. Last study was 10/2018. - continue cefazolin. Added clinda in AM 02/02 for anti-toxin effect. CT did show gas in the tissues. - will need midline removed if bcx do not clear Cavitary lung lesion - Low suspicion for TB. No hemoptysis, some weight loss. Reports neg PPD in the past. - given his history, imaging, (+) mSSA bacteremia, and that these lung changes are new compared to CT on 01/25, removed d/c neg airflow isolation chronic hep C - neg for HIV and hep B in 10/2018 - HCV pcr was 8 million in 05/2018. Now 7.5 million. Will need outpt eval for treatment. - neg tox screen - denies IVDU Will follow
[2019-02-09] MEDS: Enoxaparin 40 MG/0.4 ML Syringe SC (10:23)
[2019-02-09] MEDS: Glucerna Shake 120 ML LIQUID PO ×4 (10:23→21:33)
[2019-02-09] MEDS: NIFEdipine 30 MG Tablet PO (10:24)
[2019-02-09] MEDS: Lisinopril 20 MG Tablet PO (10:24)
[2019-02-09] MEDS: Metoprolol Tartrate 25 MG Tablet PO ×2 (10:24→21:33)
[2019-02-09] MEDS: Sertraline 50 MG Tablet PO (10:24)
[2019-02-09] MEDS: Pantoprazole Sodium 40 MG Tablet PO ×2 (10:24→21:33)
[2019-02-09 11:56] LABS: Bedside Glucose 297 mg/dL (70-110)
--- NOTE | 2019-02-09 12:40 | PCM.PROGNOTE ---
<Carson Medina - Last Filed: 02/09/19 12:40> Patient Problems: Active and Suspected Problems (Last Reviewed 02/01/19 @ 08:28 by Nan Saucedo DO) Sepsis (Acute) Cellulitis (Acute) Dehydration (Acute) Hypokalemia (Acute) MSSA bacteremia (Acute) Knee effusion, right (Acute) Knee pain, right (Acute) Subjective: Pt requesting to receive pain medications more frequently, however he is lethargic and not in acute distress on exam. He states his pain is 10/10 in his left wrist. He has no fevers or chills. No CP. No SOB. He may be going for further surgery with Dr. Rankin. Patient also complains of loose stools, however he states this has been present the entire time he has been here, he also states that it was present before he came in, it is not new. No abdominal pain, no cramping or bloating. - Physical Exam General: Alert, Oriented x3, Cooperative HEENT: Atraumatic, PERRLA, EOMI, Normocephalic Neck: Supple, No JVD, Negative Carotid Bruits Lungs: Clear to auscultation, Normal air movement Cardiovascular: Regular rate, No murmurs Abdomen: Bowel Sounds Present, Soft, Non Tender Extremities: No edema, Capillary Refill Less than 3 Seconds Skin: No rashes, No breakdown Musculoskeletal: No Tenderness to Palpation of Joints or Extremities, - - left upper ext dressed appropriately. Neurological: Cranial nerves II-XII grossly intact Psych/Mental Status: Normal Affect, Appropriate, Alert and oriented to time, place, person, mood and affect Vital Signs Temp Pulse Resp BP Pulse Ox 97.9 F 85 16 119/73 96 02/09/19 08:25 02/09/19 10:24 02/09/19 08:25 02/09/19 08:25 02/09/19 08:25 Oxygen Flow Rate (L/min) 2 Oxygen Delivery Method Room Air Weight: 141 lb 15.643 oz Body Mass Index (BMI) 19.3 Finger Stick Blood Glucose 212 Intake and Output for Last 24 Hours 02/07/19 02/08/19 02/09/19 23:59 23:59 23:59 Intake Total 2417 / 2417 4439 / 4439 2851 / 2851 Output Total 3775 / 3775 1175 / 1175 350 / 350 Balance -1358 / -1358 3264 / 3264 2501 / 2501 Microbiology Past 72 Hours 02/07/19 10:35 Blood Culture - Preliminary Blood Culture (Wb) - Arm Left No growth in 48 hours. 02/06/19 10:24 Blood Culture - Preliminary Blood Culture (Wb) - Left Forearm 02/05/19 18:09 Blood Culture - Preliminary Blood Culture (Wb) - Right Forearm Staphylococcus aureus 02/04/19 12:00 Blood Culture - Preliminary Blood Culture (Wb) - Arm Right Gram Positive Cocci 02/06/19 14:55 Gram Stain - Final Tissue - Hand Wound Culture - Final Staphylococcus aureus Anaerobic Culture - Preliminary Checking for anaerobes, further studies to follow. 02/03/19 13:00 Bacteria Detection (PCR) - Final Blood Culture (Wb) - Arm Left Staphylococcus aureus Blood Culture - Final Staphylococcus aureus 02/02/19 18:00 Gram Stain - Final Tissue - Other Wound Culture - Final Staphylococcus aureus Anaerobic Culture - Final No anaerobic bacteria isolated. 02/02/19 09:47 Blood Culture - Final Blood Culture (Wb) - Right Forearm Gram Positive Cocci 02/02/19 11:15 Gram Stain - Final Fluid - Other Body Fluid Culture - Final Culture exhibits no growth. Anaerobic Culture - Final No growth in 5 days. 02/03/19 03:48 Gram Stain - Final Sputum, Expectorated/Coughed Respiratory Culture - Final Staphylococcus aureus Presumptive C albicans Laboratory Tests Past 24 Hrs 02/09/19 02/09/19 05:05 05:05 WBC 20.7 H RBC 2.56 L Hgb 8.2 L Hct 23.5 L MCV 91.8 MCH 32.0 MCHC 34.9 RDW 12.8 RDW Differential 42.9 Plt Count 325 MPV 8.5 Sodium 133 L Potassium 3.5 Chloride 100 Carbon Dioxide 27.0 Anion Gap 6 BUN 14 Creatinine 0.76 Estim Creat Clear Calc 106.14 Est GFR (MDRD) Af Amer 138 Est GFR (MDRD) Non-Af 114 BUN/Creatinine Ratio 18.4 Glucose 296 H Calcium 8.0 L POC Glucose 02/09/19 02/09/19 02/08/19 11:23 06:50 21:28 POC Glucose 297 H 395 H 79 02/08/19 16:28 POC Glucose 115 H Medical Necessity - Tobacco Use Smoking Status: Former smoker Tobacco Use: Non-smoker Assessment/Plan All Active Problems (Last Reviewed 02/01/19 @ 08:28 by Nan Saucedo DO) Necrotizing soft tissue infection (Acute) Abscess of dorsum of left hand (Acute) Abscess of bursa, left hand (Acute) Abscess of thumb, left (Acute) Suppurative tenosynovitis of flexor tendon of left hand (Acute) Sepsis (Acute) Cellulitis (Acute) Dehydration (Acute) Hypokalemia (Acute) MSSA bacteremia (Acute) Knee effusion, right (Acute) Knee pain, right (Acute) Acute pancreatitis (Resolved) Gastroenteritis (Resolved) 1. Acute sepsis with bacteremia 2/2 Cellulitis / necrotic LUE infections, MSSA, with associated MV endocarditis -Continue Ancef and Clinda per ID -Blood culture 02/07 NTD, more recent pending. -WBC increased. -Possibly more debridement with Dr. Rankin tomorrow. 2. Multiple bilateral cavitary lung lesion - 2/2 septic emboli, pulm following, repeat CT 6-8 weeks 3. Anemia with hemoccult + stool - s/p EGD/Colon with Dr. Fletcher. Nonbleeding internal hemorrhoids. Continue PO iron 4. R knee effusion 2/2 reactive arthritis - Dr. Marroquin following, knee aspiration done. O/P F/U. 5. Chronic Hep C - follow up with ID as outpatient 6. T2DM - adjust insulins, start mealtime and back off lantus dose, continue to titrate to response, and cover with SSI 7. Severe protein calorie malnutrition-nutrition consult 8. Hyperlipidemia-statin 9. Hypertension-stable 10. Chronic back pain-MRI done, degenerative changes, no discitis or osteomyelitis. DVT prophylaxis-Lovenox Discharge planning this will depend on if the patient needs more surgery, and if he is able to get into custodial. This patient was seen by Carson Medina PA-C under the supervision of Doctor Angeles. <Delmi Angeles - Last Filed: 02/09/19 13:43> - Physical Exam Vital Signs Temp Pulse Resp BP Pulse Ox 97.9 F 85 16 119/73 96 02/09/19 08:25 02/09/19 10:24 02/09/19 08:25 02/09/19 08:25 02/09/19 08:25 Oxygen Flow Rate (L/min) 2 Oxygen Delivery Method Room Air Weight: 141 lb 15.643 oz Body Mass Index (BMI) 19.3 Finger Stick Blood Glucose 212 Intake and Output for Last 24 Hours 02/07/19 02/08/19 02/09/19 23:59 23:59 23:59 Intake Total 2417 / 2417 4439 / 4439 2851 / 2851 Output Total 3775 / 3775 1175 / 1175 350 / 350 Balance -1358 / -1358 3264 / 3264 2501 / 2501 Microbiology Past 72 Hours 02/04/19 12:00 Blood Culture - Final Blood Culture (Wb) - Arm Right Gram Positive Cocci 02/07/19 10:35 Blood Culture - Preliminary Blood Culture (Wb) - Arm Left No growth in 48 hours. 02/06/19 10:24 Blood Culture - Preliminary Blood Culture (Wb) - Left Forearm 02/05/19 18:09 Blood Culture - Preliminary Blood Culture (Wb) - Right Forearm Staphylococcus aureus 02/06/19 14:55 Gram Stain - Final Tissue - Hand Wound Culture - Final Staphylococcus aureus Anaerobic Culture - Preliminary Checking for anaerobes, further studies to follow. 02/03/19 13:00 Bacteria Detection (PCR) - Final Blood Culture (Wb) - Arm Left Staphylococcus aureus Blood Culture - Final Staphylococcus aureus 02/02/19 18:00 Gram Stain - Final Tissue - Other Wound Culture - Final Staphylococcus aureus Anaerobic Culture - Final No anaerobic bacteria isolated. 02/02/19 09:47 Blood Culture - Final Blood Culture (Wb) - Right Forearm Gram Positive Cocci 02/02/19 11:15 Gram Stain - Final Fluid - Other Body Fluid Culture - Final Culture exhibits no growth. Anaerobic Culture - Final No growth in 5 days. Laboratory Tests Past 24 Hrs 02/09/19 02/09/19 05:05 05:05 WBC 20.7 H RBC 2.56 L Hgb 8.2 L Hct 23.5 L MCV 91.8 MCH 32.0 MCHC 34.9 RDW 12.8 RDW Differential 42.9 Plt Count 325 MPV 8.5 Sodium 133 L Potassium 3.5 Chloride 100 Carbon Dioxide 27.0 Anion Gap 6 BUN 14 Creatinine 0.76 Estim Creat Clear Calc 106.14 Est GFR (MDRD) Af Amer 138 Est GFR (MDRD) Non-Af 114 BUN/Creatinine Ratio 18.4 Glucose 296 H Calcium 8.0 L POC Glucose 02/09/19 02/09/19 02/08/19 11:23 06:50 21:28 POC Glucose 297 H 395 H 79 02/08/19 16:28 POC Glucose 115 H Assessment/Plan Hospitalist note: I am seeing this patient in conjunction with Carson Medina. I independently seen and examined the patient. Progress note above , laboratory data and imaging studies reviewed and I concur with the above treatment plan. Patient seen and examined. Today, he complained of increasing left hand pain. His vital signs are stable. - Physical Exam General: Alert, Oriented x3, Cooperative, No apparent distress. HEENT: Atraumatic, PERRLA, EOMI. Neck: Supple, No JVD, Negative Carotid Bruits, Trachea Midline, Thyroid Normal. Lungs: Clear to auscultation, Normal air movement, No rhonchi, No wheeze, No rales. Cardiovascular: Regular rate, Regular Rhythm, Normal S1, Normal S2, PMI Normal. Abdomen: Bowel Sounds Present, Soft, Non Tender, Non-Distended, No Hepato-splenomegaly. Extremities: No clubbing, No cyanosis, No edema Skin: No rashes, left hand wound Neurological: Neuro grossly intact Vital Signs are stable. Assessment and plan: #1 MSSA left hand cellulitis/necrotic infection: Status post incision and drainage. Remained on IV cefazolin and IV clindamycin. He has been afebrile, white blood cell count is trending down. Cultures reviewed. Infectious disease on the case. Patient is having increasing pain. White blood count is trending up. Possibly, patient will need more debridement by Dr. Rankin tomorrow. #2 mitral Valve MSSA endocarditis: On IV cefazolin and clindamycin as above. Infectious disease on the case, plan as above. Repeat blood culture on February 07, 2019 revealed no growth in 48 hours. Repeat blood culture from February 08 and February 09 are pending.. #3 MSSA bacteremia: Source is the left hand necrotic wound infection/cellulitis. Plan as above. #4 septic emboli of the lungs: On IV antibiotics as above, pulmonology on the case, plan for repeat CT scan in 6-8 weeks after antibiotics. #5 normocytic anemia: With positive Hemoccult blood. Upper EGD and colonoscopy showed no evidence of active bleeding. Today's hemoglobin is 8.2 g/dL, dropped 1 g overnight, no obvious active bleeding. Plan to transfuse if hemoglobin came down below 8 g/dL. Continue iron supplement. #6 other chronic medical problems: Stable, continue current medications as above. This note was generated with [employer] dictation software. It may contain incorrect words, spelling, and punctuation that were not noted in checking the note before signing. Code Visit Inpatient E&M: 31133 Subs Hosp L2
--- NOTE | 2019-02-09 13:38 | CASEMGMT ---
MATTHEW spoke with Soraya at [facility] and let her know patient is having surgery again tomorrow. MATTHEW told her it will likely be beginning of next week. MATTHEW will send her updates to keep her up to date on what is happening with patient. Plan: [facility] pending patient being medically ready and pre-cert. Arely VILLARREAL MSW
--- NOTE | 2019-02-09 15:02 | NURSING ---
wound photo: left hand
--- NOTE | 2019-02-09 15:02 | NURSING ---
wound photo: left hand
--- NOTE | 2019-02-09 15:04 | NURSING ---
wound photo: left hand
[2019-02-09 16:30] LABS: Bedside Glucose 176 mg/dL (70-110)
--- NOTE | 2019-02-09 16:49 | ED.RN ---
LAB CALLED FOR POS DAVE SHARPE IN PCU AWARE
--- NOTE | 2019-02-09 17:33 | PCM.PN.SRG ---
Patient Problems: Active and Suspected Problems (Last Reviewed 02/01/19 @ 08:28 by Nan Saucedo DO) Sepsis (Acute) Cellulitis (Acute) Dehydration (Acute) Hypokalemia (Acute) MSSA bacteremia (Acute) Knee effusion, right (Acute) Knee pain, right (Acute) Subjective: Postop #7 and #3 Patient has left hand pain but less than yesterday. Tolerating Silver dressing change reasonably well today. - Physical Exam General: Alert, Oriented x3 HEENT: PERRLA, EOMI Oral: Moist Mucosa Neck: Supple Abdomen: Soft, Non-Distended Skin: Ulcer/ Wound - multiple wounds left thumb, thenar eminence, and dorsum left hand are stable. Additional wounds on the dorsum of the hand and the midpalm are stable. No active bleeding. No further evidence of pus or infection noted. Swelling slowly resolving. Some granulation tissue seen. Irrigated wounds with saline. Patient tolerated the dressing change a little better today. Wounds redressed with Silver dressing. Patient needed IV analgesia for the dressing change. Concern about early RSD shows no progression. Neurological: Cranial nerves II-XII grossly intact Psych/Mental Status: Normal Affect, Appropriate Vital Signs Temp Pulse Resp BP Pulse Ox 98.3 F 85 16 98/51 L 99 02/09/19 14:25 02/09/19 15:02 02/09/19 14:25 02/09/19 14:25 02/09/19 14:25 Oxygen Flow Rate (L/min) 2 Oxygen Delivery Method Room Air Weight: 141 lb 15.643 oz Body Mass Index (BMI) 19.3 Finger Stick Blood Glucose 212 Intake and Output for Last 24 Hours 02/07/19 02/08/19 02/09/19 23:59 23:59 23:59 Intake Total 2417 / 2417 4439 / 4439 2851 / 2851 Output Total 3775 / 3775 1175 / 1175 350 / 350 Balance -1358 / -1358 3264 / 3264 2501 / 2501 Microbiology Past 72 Hours 02/08/19 12:00 Blood Culture - Preliminary Blood Culture (Wb) - Arm Left 02/04/19 12:00 Blood Culture - Final Blood Culture (Wb) - Arm Right Gram Positive Cocci 02/07/19 10:35 Blood Culture - Preliminary Blood Culture (Wb) - Arm Left No growth in 48 hours. 02/06/19 10:24 Blood Culture - Preliminary Blood Culture (Wb) - Left Forearm 02/05/19 18:09 Blood Culture - Preliminary Blood Culture (Wb) - Right Forearm Staphylococcus aureus 02/06/19 14:55 Gram Stain - Final Tissue - Hand Wound Culture - Final Staphylococcus aureus Anaerobic Culture - Preliminary Checking for anaerobes, further studies to follow. 02/03/19 13:00 Bacteria Detection (PCR) - Final Blood Culture (Wb) - Arm Left Staphylococcus aureus Blood Culture - Final Staphylococcus aureus 02/02/19 18:00 Gram Stain - Final Tissue - Other Wound Culture - Final Staphylococcus aureus Anaerobic Culture - Final No anaerobic bacteria isolated. 02/02/19 09:47 Blood Culture - Final Blood Culture (Wb) - Right Forearm Gram Positive Cocci 02/02/19 11:15 Gram Stain - Final Fluid - Other Body Fluid Culture - Final Culture exhibits no growth. Anaerobic Culture - Final No growth in 5 days. Laboratory Tests Past 24 Hrs 02/09/19 02/09/19 05:05 05:05 WBC 20.7 H RBC 2.56 L Hgb 8.2 L Hct 23.5 L MCV 91.8 MCH 32.0 MCHC 34.9 RDW 12.8 RDW Differential 42.9 Plt Count 325 MPV 8.5 Sodium 133 L Potassium 3.5 Chloride 100 Carbon Dioxide 27.0 Anion Gap 6 BUN 14 Creatinine 0.76 Estim Creat Clear Calc 106.14 Est GFR (MDRD) Af Amer 138 Est GFR (MDRD) Non-Af 114 BUN/Creatinine Ratio 18.4 Glucose 296 H Calcium 8.0 L POC Glucose 02/09/19 02/09/19 02/09/19 16:25 11:23 06:50 POC Glucose 176 H 297 H 395 H 02/08/19 21:28 POC Glucose 79 Medical Necessity - Tobacco Use Smoking Status: Former smoker Tobacco Use: Non-smoker Assessment/Plan All Active Problems (Last Reviewed 02/01/19 @ 08:28 by Nan Saucedo DO) Necrotizing soft tissue infection (Acute) Abscess of dorsum of left hand (Acute) Abscess of bursa, left hand (Acute) Abscess of thumb, left (Acute) Suppurative tenosynovitis of flexor tendon of left hand (Acute) Sepsis (Acute) Cellulitis (Acute) Dehydration (Acute) Hypokalemia (Acute) MSSA bacteremia (Acute) Knee effusion, right (Acute) Knee pain, right (Acute) Acute pancreatitis (Resolved) Gastroenteritis (Resolved) 1. 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 2. Necrotizing diabetic abscess thenar emininence left palm extending through thenar muscles and first dorsal interosseous muscle. 3. Necrotizing diabetic abscess dorsum left hand at first webspace extending through first dorsal interosseous muscle and thenar muscles. 4. Suppurative flexor tenosynovitis. 5. Diabetes mellitus. 6. Sepsis. 7. s/p surgical preparation left thumb and thenar eminence and dorsum hand over first webspace with incision and drainage and excisional debridement complex necrotizing diabetic abscesses (33 cm2) and incision and drainage tendon sheath left thumb for suppurative flexor tenosynovitis and incision and drainage necrotizing diabetic abscess dorsum left thumb involving extensor tendon with tenosynovitis and incision and drainage necrotizing diabetic abscess thenar eminence left palm extending through thenar muscles (abductor pollicis brevis, flexor pollicis brevis, opponens pollicis, and adductor pollicis) and first dorsal interosseous muscle and incision and drainage necrotizing diabetic abscess first dorsal webspace left hand extending through first dorsal interosseous muscle and thenar muscles (abductor pollicis brevis, flexor pollicis brevis, opponens pollicis, and adductor pollicis). 8. Anemia of chronic disease, acute on chronic. 9. Early RSD. Patient tolerated the Silver dressing change better today. He still needed IV analgesia. Concerns about early RSD have not progressed since starting Zoloft and Procardia XL. The increased Neurontin has been helpful. Swelling slowly resolving. Less than preop. No further pus seen in the wounds. With the severity of the infection, I anticipate the swelling will take several days to resolve. I irrigated the wounds with saline today. Some granulation tissue seen. Operative culture shows Staphylococcus aureus thus far. Presently he is on Ancef and Cleocin. With the severity of the infection with pus diffuse throughout the thumb with suppurative flexor tenosynovitis and thenar space with extension to dorsum of hand, he will need IV antibiotics for 6 weeks. Infectious Diseases is on board for antibiotic management. Will evaluate the hand wounds closely. His WBC has increased from 18.1 to 20.7. His temps have stabilized as he has been afebrile last several days. The WBC is decreasing but very slowly. Will plan on another operative debridement and irrigation and drainage procedure tomorrow. Patient voices understanding. I think the washout a couple of days ago was helpful. No pus was seen but there was still some residual fat necrosis that was debrided. Extra incisions did not show any pus either so no progression seen from the thenar space and thumb area. Keep left hand elevated. Patient will need aggressive OT for range of motion exercises, strengthening, and edema management after discharge to minimize stiffness. Patient is at high risk for residual stiffness in his left thumb and hand. Anticipate increased metabolic demands from the infection and the surgical wounds. Prealbumin was <3 Encourage nutritional supplementation with protein to help the healing process. With the complexity of the wound and the need for IV antibiotics, patient needs to go to an ECF. Evaluation in process.
[2019-02-09] MEDS: Atorvastatin Calcium 40 MG Tablet PO (21:33)
[2019-02-09 21:45] LABS: Bedside Glucose 95 mg/dL (70-110)
[2019-02-10] VITALS (21 sets, daily range): BP systolic 104–185; BP diastolic 57–91; PULSE 69–94; RESP 14–18; TEMP 36.3–36.9; O2SAT 97–100; BMI 18.2; BMI 17.3
[2019-02-10] MEDS: HYDROmorphone 1 MG/ML Syringe IV ×2 (02:32→23:54)
[2019-02-10] MEDS: diazePAM 5 MG Tablet PO ×2 (05:30→22:46)
[2019-02-10] MEDS: Cefazolin 2 GM in 0.9% Normal Saline 100 ML IV ×3 (05:30→22:46)
--- NOTE | 2019-02-10 05:55 | EKG12_ITS ---
Test Reason : PRE-OP Blood Pressure : / mmHG Vent. Rate : 073 BPM Atrial Rate : 073 BPM P-R Int : 172 ms QRS Dur : 084 ms QT Int : 390 ms P-R-T Axes : 070 -16 059 degrees QTc Int : 429 ms Normal sinus rhythm Low voltage QRS Septal infarct , age undetermined Abnormal ECG When compared with ECG of 06-FEB-2019 05:25, Septal infarct is now Present Confirmed by ISAMAR VICK ([id number]), rewrite editor WILLIAM VALDEZ ([id number]) on 02/16/2019 11:04:45 AM Referred By: SWETA Confirmed By:ISAMAR VICK
[2019-02-10 06:18] LABS: Absolute Lymphocyte Count 2.21 X10^3/ul (0.83-4.51); Absolute Neutrophil Count 14.7 X10^3/uL (2.0-7.7); Basophil# 0.02 X10^3/uL; Basophil% 0.1 % (0-1); Eosinophil# 0.06 X10^3/uL; Eosinophils% 0.3 % (0-5); Hematocrit 25.1 % (40-54); Hemoglobin 8.6 g/dl (13.0-16.5); Lymphocyte # 2.21 X10^3/ul (4.0); Lymphocyte % 11.7 % (19-41); Mean Corp Hgb Conc 34.3 g/gl (32-36); Mean Corpuscular Hgb 31.3 pg (27.0-32.0); Mean Corpuscular Volume 91.3 fL (80-94); Mean Platelet Vol. 8.8 fl (6.2-12.0); Monocyte# 1.35 X10^3/uL; Monocyte% 7.2 % (0-10); Neutrophil # 14.74 X10^3/uL (2.7-7.7); Neutrophil % 78.1 % (47-70); Platelet Count 370 K/mm3 (150-450); RBC Distribution Width CV 11.9 % (11.6-14.6); RBC Distribution Width SD 37.8 fl (35.1-43.9); Red Blood Count 2.75 M/mm3 (4.6-6.2); White Blood Count 18.9 K/mm3 (4.4-11.0)
[2019-02-10 06:20] LABS: Differential Indicated SCAN CRITERIA MET; POSITIVE COUNT YES; POSITIVE DIFFERENTIAL NO; POSITIVE MORPHOLOGY YES
[2019-02-10 06:23] LABS: International Normalized Ratio 1.3
[2019-02-10 06:24] LABS: Partial Thromboplast Time 30.3 Seconds (24.1-36.2)
[2019-02-10 06:43] LABS: AST(SGOT) 44 U/L (15-37); Alanine Aminotransfer ALT/SGPT 15 U/L (16-61); Albumin, Serum 1.7 g/dL (3.2-5.0); Alkaline Phosphatase 140 U/L (45-117); Anion Gap 6 (5-15); BUN 16 mg/dL (7-18); BUN/Creat Ratio 22.1 RATIO (10-20); Bilirubin, Direct 0.27 mg/dL (0.00-0.30); Calcium,Total 7.9 mg/dL (8.5-10.1); Chloride 103 mmol/L (98-107); Creatinine, Serum 0.72 mg/dL (0.70-1.30); EST Glomerular Filtration Rate 121 mL/min (>60); Est Glom Filt Rate - Afr Amer 146 mL/min (>60); Estimated Creatinine Clearance 109.32 ml/min; Globulin 5.5 g/dL (2.2-4.2); Glucose 181 mg/dL (74-106); Potassium 3.6 mmol/L (3.5-5.1); Protein, Total 7.2 g/dL (6.4-8.2); Sodium Level 135 mmol/L (136-145)
[2019-02-10 06:44] LABS: Differential Comment SCANNED
[2019-02-10] MEDS: HYDROmorphone 2 MG TABLET 4 MG PO ×2 (06:59→18:03)
[2019-02-10 07:00] LABS: Bedside Glucose 175 mg/dL (70-110)
--- NOTE | 2019-02-10 07:30 | NURSING ---
Pt to surgery for I&D per transport aid
--- NOTE | 2019-02-10 09:47 | OP.PCM_ITS ---
Report of Operation Date of Procedure: 02/10/19 Pre-Operative Diagnosis: 1. 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 2. Necrotizing diabetic abscess thenar eminence left palm extending through thenar muscles (abductor pollicis brevis, flexor pollicis brevis, opponens pollicis, and adductor pollicis) and first dorsal interosseous muscle. 3. Necrotizing diabetic abscess dorsum left hand at first webspace extending through first dorsal interosseous muscle and thenar muscles (abductor pollicis brevis, flexor pollicis brevis, opponens pollicis, and adductor pollicis). 4. Suppurative flexor tenosynovitis. 5. Diabetes mellitus. 6. Sepsis. Post-Operative Diagnosis: Same. Surgery/Procedure Performed:: Incision and drainage with irrigation and excisional debridement complex necrotizing diabetic abscesses left thumb and thenar eminence into thenar space and dorsum hand over first webspace. Description of Surgical Findings:: The patient is a 53 year old M was admitted to hospital with sepsis and uncontrolled diabetes and associated increasing pain and redness and swelling left hand and thumb. Patient is left hand dominant. Patient states he fell a week ago and his symptomatology progressively worsened. He denies fever. Plain Xray of the hand in the ED is normal. WBC was 24.9. Random blood sugar was 624. Lactic acid was 2.9. ESR is 18 and the CRP is 41.9. HgbA1c was 10.5. He was started on Vancomycin and Zosyn. His blood cultures were positive for Staphylococcus aureus. His antibiotics have been changed to Ancef and Cleocin. I was asked to evaluate this patient for surgical options for treatment. He was taken to surgery the same day I saw him on 02/02/19 where he underwent surgical preparation left thumb and thenar eminence and dorsum hand over first webspace with incision and drainage and excisional debridement complex necrotizing diabetic abscesses (33 cm2) and incision and drainage tendon sheath left thumb for suppurative flexor tenosynovitis and incision and drainage necrotizing diabetic abscess dorsum left thumb involving extensor tendon with tenosynovitis and incision and drainage necrotizing diabetic abscess thenar eminence left palm extending through thenar muscles (abductor pollicis brevis, flexor pollicis brevis, opponens pollicis, and adductor pollicis) and first dorsal interosseous muscle and incision and drainage necrotizing diabetic abscess first dorsal webspace left hand extending through first dorsal interosseous muscle and thenar muscles (abductor pollicis brevis, flexor pollicis brevis, opponens pollicis, and adductor pollicis). Postop started Silver dressing changes. The dressing changes were painful. Improvement was seen in the wounds and the swelling was decreasing. However the WBC which had decreased to 18 has increased back to 20. He returned to the operating room on 02/06/19 where he underwent incision and drainage with irrigation and excisional debridement complex necrotizing diabetic abscesses left thumb and thenar eminence into thenar space and dorsum hand over first webspace. The incisions were lengthened and new incisions were made on the dorsum of the hand and in the midpalm. No further pus was noted. Some fat necrosis was debrided for culture. Culture still showed Staphylococcus aureus. The wounds continued to improve with daily Silver dressing changes with irrigation. The WBC is still elevated around 20. So it was recommended to return to the operating room today for another incision and drainage and irrigation and excisional debridement procedure. Patient was informed of the risks and complications of the procedure including alternatives to surgery. These were discussed with the patient personally. Patient voices understanding and wishes to proceed. Some of the risks and complications that were discussed included but were not inclusive of failure to diagnose including symptom relief, pain, infection, numbness, stiffness, loss of digit, RSD (CRPS), need for further surgery, contracture, and wound healing problems. Length of zig zag incisions dorsum left thumb - 8 cm. Length of zig zag incisions dorsum left hand at first webspace - 7.5 cm. Length of zig zag incisions volar left thumb extending onto thenar eminence - 10 cm. Length of incision mid palm left hand - 3 cm. Length of incision dorsum left hand, radial - 4.5 cm. Length of incision dorsum left hand, ulnar - 4.5 cm. 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 Drains: None. Estimated Blood Loss (mL): 25 ml. Description of Procedure: Patient was taken to OR in supine position and was placed under general anesthesia. The left hand and forearm areas were prepped and draped in the usual fashion. SCD's were placed for DVT prophylaxis. Perioperative antibiotics were given intravenously. I placed a tourniquet on the arm. It didn't need to be inflated during the case. Upon inspection of the wounds, there was no gross pus seen. Some areas of persistent fat necrosis was seen scattered throughout and were excised and debrided. I also used a curette to help with the debridement process. Good bleeding was seen after the excision and debridement. Hemostasis was obtained with electrocautery. The wounds were copiously irrigated with saline, about 2 liters. By the end of the irrigation, the wounds looked clean without further evidence of infection. I then dressed the wounds with Aquacel Silver followed by dry gauze and a compression JERZY wrap. 2x2 gauze was placed in the web spaces to minimize ulceration. Patient tolerated the procedure well and was sent to PACU in satisfactory condition. Patient will be sent upstairs for continued postop care. Will continue Silver dressing changes tomorrow. The wounds were all left open. The length of zig zag incisions dorsum left thumb was 8 cm. The length of zig zag incisions dorsum left hand at first webspace was 7.5 cm. The length of zig zag incisions volar left thumb extending onto thenar eminence was 10 cm. The length of the midspace incision was 3 cm. The length of the incision dorsum left hand, radial, was 4.5 cm. The length of the incision dorsum left hand, uln ar, was 4.5 cm. He will keep his left hand elevated during the postop period. Anticipate the dressing changes will be painful for a while. He should be evaluated for an ECF. Also with the severity and diffuse widespread nature of the pus, he will need 6 weeks of IV antibiotics. Anticipate stiffness of his thumb and hand and will need extensive aggressive OT for range of motion exercises, strengthening, and edema management. Anticipate increased metabolic demands from the infection and the surgical wounds. Will check a Prealbumin and will need nutritional supplementation with protein to help the healing process. Due to the severity of the infection and the diffuse widespread nature of the pus, I will watch him closely during the initial postop period. If improvement is too slow or if his hand worsens, then he would need additional irrigation and drainage and excisional debridement to make sure additional infection is not present. Encourage nutritional supplementation with protein to help the healing process. After discharge [facility] I will watch him closely, because he is at risk for RSD (CRPS). The tissue that was debrided was sent to Microbiology for culture. A positive culture may necessitate antibiotic modification. Grafts/Implants Used: None. - Complications None. - Admit VTE Documentation VTE Present on Admission: No VTE Mechan Device Prophylaxis: SCD's VTE Pharm Prophylaxis ordered?: Yes Code Visit Surgery Charges CPT - 31476 ICD-10 - M71.042, L02.512, M65.142, M79.89, E11.9, A41.9
[2019-02-10] MEDS: Enoxaparin 40 MG/0.4 ML Syringe SC (12:10)
[2019-02-10 12:11] LABS: Bedside Glucose 185 mg/dL (70-110)
--- NOTE | 2019-02-10 13:35 | PCM.PN.ID ---
Patient Problems: Active and Suspected Problems (Last Reviewed 02/01/19 @ 08:28 by Nan Saucedo DO) Sepsis (Acute) Cellulitis (Acute) Dehydration (Acute) Hypokalemia (Acute) MSSA bacteremia (Acute) Knee effusion, right (Acute) Knee pain, right (Acute) Subjective: Sleepy s/p OR. No fever, pain controlled. - Physical Exam General: Cooperative, No apparent distress Lungs: Clear to auscultation, Normal air movement Cardiovascular: Regular rate, Regular Rhythm Abdomen: Soft, Non Tender, Non-Distended Skin: Ulcer/ Wound - hand wrapped Vital Signs Temp Pulse Resp BP Pulse Ox 97.5 F L 76 16 132/81 H 99 02/10/19 12:45 02/10/19 12:45 02/10/19 12:45 02/10/19 12:45 02/10/19 12:45 Oxygen Flow Rate (L/min) 2 Oxygen Delivery Method Room Air Weight: 61.3 kg Body Mass Index (BMI) 17.3 Finger Stick Blood Glucose 212 Intake and Output for Last 24 Hours 02/08/19 02/09/19 02/10/19 23:59 23:59 23:59 Intake Total 4439 / 4439 5043 / 5043 1713 / 1713 Output Total 1175 / 1175 350 / 350 850 / 850 Balance 3264 / 3264 4693 / 4693 863 / 863 Microbiology Past 72 Hours 02/10/19 10:01 Gram Stain - Final Tissue - Other 02/06/19 14:55 Gram Stain - Final Tissue - Hand Wound Culture - Final Staphylococcus aureus Anaerobic Culture - Final No anaerobic bacteria isolated. 02/08/19 12:00 Blood Culture - Preliminary Blood Culture (Wb) - Arm Left Staphylococcus aureus 02/07/19 10:35 Blood Culture - Preliminary Blood Culture (Wb) - Arm Left 02/04/19 12:00 Blood Culture - Final Blood Culture (Wb) - Arm Right Gram Positive Cocci 02/06/19 10:24 Blood Culture - Preliminary Blood Culture (Wb) - Left Forearm 02/05/19 18:09 Blood Culture - Preliminary Blood Culture (Wb) - Right Forearm Staphylococcus aureus 02/03/19 13:00 Bacteria Detection (PCR) - Final Blood Culture (Wb) - Arm Left Staphylococcus aureus Blood Culture - Final Staphylococcus aureus 02/02/19 18:00 Gram Stain - Final Tissue - Other Wound Culture - Final Staphylococcus aureus Anaerobic Culture - Final No anaerobic bacteria isolated. 02/02/19 09:47 Blood Culture - Final Blood Culture (Wb) - Right Forearm Gram Positive Cocci 02/02/19 11:15 Gram Stain - Final Fluid - Other Body Fluid Culture - Final Culture exhibits no growth. Anaerobic Culture - Final No growth in 5 days. Laboratory Tests Past 24 Hrs 02/10/19 02/10/19 02/10/19 05:28 05:28 05:28 WBC 18.9 H RBC 2.75 L Hgb 8.6 L Hct 25.1 L MCV 91.3 MCH 31.3 MCHC 34.3 RDW 11.9 RDW Differential 37.8 Plt Count 370 MPV 8.8 Immature Gran % (Auto) 2.600 H Neut % (Auto) 78.1 H Lymph % (Auto) 11.7 L [place] % (Auto) 7.2 Eos % (Auto) 0.3 Baso % (Auto) 0.1 Absolute Neuts (auto) 14.7 H Absolute Lymphs (auto) 2.21 Total Counted Not Reportable Differential Comment SCANNED Diff Path Review February foll PT 16.0 H INR 1.3 APTT 30.3 Sodium 135 L Potassium 3.6 Chloride 103 Carbon Dioxide 26.0 Anion Gap 6 BUN 16 Creatinine 0.72 Estim Creat Clear Calc 109.32 Est GFR (MDRD) Af Amer 146 Est GFR (MDRD) Non-Af 121 BUN/Creatinine Ratio 22.1 H Glucose 181 H Calcium 7.9 L Total Bilirubin 0.40 Direct Bilirubin 0.27 AST 44 H ALT 15 L Alkaline Phosphatase 140 H Total Protein 7.2 Albumin 1.7 L Globulin 5.5 H POC Glucose 02/10/19 02/10/19 02/09/19 12:04 06:54 21:36 POC Glucose 185 H 175 H 95 02/09/19 16:25 POC Glucose 176 H Medical Necessity - Tobacco Use Smoking Status: Former smoker Tobacco Use: Non-smoker Route of nutrition/ use of supplements: [] Nutritional Intake: [] IV Site: [] Canas Catheter: [] - Assessment/Plan Antibiotics: [] Assessment/Plan: [] Active and Suspected Problems (Last Reviewed 02/01/19 @ 08:28 by Nan Saucedo DO) Sepsis (Acute) Cellulitis (Acute) Dehydration (Acute) Hypokalemia (Acute) severe sepsis (leukocytosis, tachycardia, lactic acidosis) with 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 Concern for R sided endocarditis given suspected pulm emboli. - repeat bcx x1 today, bcx (+) 02/08 - TTE showed no veg. ALIS with mitral veg. - Taken to OR 02/[address] Rankin with diffuse abscess and necrosis in his hand. Back to OR 02/06 and again 02/10. - knee aspiration by Dr. Marroquin so far consistent with reactive arthritis - has chronic lower back pain and spine tenderness. MRI 02/02 showed no new sign of infection. Last study was 10/2018. - continue cefazolin. Added clinda in AM 02/02 for anti-toxin effect. CT did show gas in the tissues. Will stop clinda today 02/10. - will need midline removed if bcx do not clear Cavitary lung lesion - Low suspicion for TB. No hemoptysis, some weight loss. Reports neg PPD in the past. - given his history, imaging, (+) mSSA bacteremia, and that these lung changes are new compared to CT on 01/25, removed d/c neg airflow isolation chronic hep C - neg for HIV and hep B in 10/2018 - HCV pcr was 8 million in 05/2018. Now 7.5 million. Will need outpt eval for treatment. - neg tox screen - denies IVDU Will follow, d/w Dr. Rankin
[2019-02-10] MEDS: Glucerna Shake 120 ML LIQUID PO ×3 (13:55→22:46)
--- NOTE | 2019-02-10 15:34 | PCM.PROGNOTE ---
<Carson Medina - Last Filed: 02/10/19 15:34> Patient Problems: Active and Suspected Problems (Last Reviewed 02/01/19 @ 08:28 by Nan Saucedo DO) Sepsis (Acute) Cellulitis (Acute) Dehydration (Acute) Hypokalemia (Acute) MSSA bacteremia (Acute) Knee effusion, right (Acute) Knee pain, right (Acute) Subjective: Currently pain controlled. Had washout today, went well. Unfortunately Blood cultures are still pending, but he states he is willing to stay as long as necessary. His mood has been labile. No fever/chills. No SOB. No CP. No palp. - Physical Exam General: Alert, Oriented x3, Cooperative HEENT: Atraumatic, PERRLA, EOMI, Normocephalic Neck: Supple, No JVD, Negative Carotid Bruits Lungs: Clear to auscultation, Normal air movement Cardiovascular: Regular rate, No murmurs Abdomen: Bowel Sounds Present, Soft, Non Tender Extremities: No edema, Capillary Refill Less than 3 Seconds Skin: No rashes, No breakdown Musculoskeletal: No Tenderness to Palpation of Joints or Extremities Neurological: Cranial nerves II-XII grossly intact Psych/Mental Status: Normal Affect, Appropriate Vital Signs Temp Pulse Resp BP Pulse Ox 97.5 F L 76 16 132/81 H 99 02/10/19 12:45 02/10/19 12:45 02/10/19 12:45 02/10/19 12:45 02/10/19 12:45 Oxygen Flow Rate (L/min) 2 Oxygen Delivery Method Room Air Weight: 135 lb 2.294 oz Body Mass Index (BMI) 17.3 Finger Stick Blood Glucose 212 Intake and Output for Last 24 Hours 02/08/19 02/09/19 02/10/19 23:59 23:59 23:59 Intake Total 4439 / 4439 5043 / 5043 1713 / 1713 Output Total 1175 / 1175 350 / 350 850 / 850 Balance 3264 / 3264 4693 / 4693 863 / 863 Microbiology Past 72 Hours 02/06/19 14:55 Acid Fast Bacilli Smear - Final Tissue - Hand Acid Fast Bacilli Culture - Final Fungal Culture - Final Fungal Smear - Final 02/10/19 10:01 Gram Stain - Final Tissue - Other 02/06/19 14:55 Gram Stain - Final Tissue - Hand Wound Culture - Final Staphylococcus aureus Anaerobic Culture - Final No anaerobic bacteria isolated. 02/08/19 12:00 Blood Culture - Preliminary Blood Culture (Wb) - Arm Left Staphylococcus aureus 02/07/19 10:35 Blood Culture - Preliminary Blood Culture (Wb) - Arm Left 02/04/19 12:00 Blood Culture - Final Blood Culture (Wb) - Arm Right Gram Positive Cocci 02/06/19 10:24 Blood Culture - Preliminary Blood Culture (Wb) - Left Forearm 02/05/19 18:09 Blood Culture - Preliminary Blood Culture (Wb) - Right Forearm Staphylococcus aureus 02/03/19 13:00 Bacteria Detection (PCR) - Final Blood Culture (Wb) - Arm Left Staphylococcus aureus Blood Culture - Final Staphylococcus aureus 02/02/19 18:00 Gram Stain - Final Tissue - Other Wound Culture - Final Staphylococcus aureus Anaerobic Culture - Final No anaerobic bacteria isolated. 02/02/19 09:47 Blood Culture - Final Blood Culture (Wb) - Right Forearm Gram Positive Cocci Laboratory Tests Past 24 Hrs 02/10/19 02/10/19 02/10/19 05:28 05:28 05:28 WBC 18.9 H RBC 2.75 L Hgb 8.6 L Hct 25.1 L MCV 91.3 MCH 31.3 MCHC 34.3 RDW 11.9 RDW Differential 37.8 Plt Count 370 MPV 8.8 Immature Gran % (Auto) 2.600 H Neut % (Auto) 78.1 H Lymph % (Auto) 11.7 L [place] % (Auto) 7.2 Eos % (Auto) 0.3 Baso % (Auto) 0.1 Absolute Neuts (auto) 14.7 H Absolute Lymphs (auto) 2.21 Total Counted Not Reportable Differential Comment SCANNED Diff Path Review February foll PT 16.0 H INR 1.3 APTT 30.3 Sodium 135 L Potassium 3.6 Chloride 103 Carbon Dioxide 26.0 Anion Gap 6 BUN 16 Creatinine 0.72 Estim Creat Clear Calc 109.32 Est GFR (MDRD) Af Amer 146 Est GFR (MDRD) Non-Af 121 BUN/Creatinine Ratio 22.1 H Glucose 181 H Calcium 7.9 L Total Bilirubin 0.40 Direct Bilirubin 0.27 AST 44 H ALT 15 L Alkaline Phosphatase 140 H Total Protein 7.2 Albumin 1.7 L Globulin 5.5 H POC Glucose 02/10/19 02/10/19 02/09/19 12:04 06:54 21:36 POC Glucose 185 H 175 H 95 02/09/19 16:25 POC Glucose 176 H Medical Necessity - Tobacco Use Smoking Status: Former smoker Tobacco Use: Non-smoker Assessment/Plan All Active Problems (Last Reviewed 02/01/19 @ 08:28 by Nan Saucedo DO) Necrotizing soft tissue infection (Acute) Abscess of dorsum of left hand (Acute) Abscess of bursa, left hand (Acute) Abscess of thumb, left (Acute) Suppurative tenosynovitis of flexor tendon of left hand (Acute) Sepsis (Acute) Cellulitis (Acute) Dehydration (Acute) Hypokalemia (Acute) MSSA bacteremia (Acute) Knee effusion, right (Acute) Knee pain, right (Acute) Acute pancreatitis (Resolved) Gastroenteritis (Resolved) 1. Acute sepsis with bacteremia 2/2 Cellulitis / necrotic LUE infections, MSSA, with associated MV endocarditis -Continue Ancef and Clinda per ID -Blood cultures persistently positive. -WBCs down. -Washout today with Dr. Rankin, likely will have recent. 2. Multiple bilateral cavitary lung lesion - 2/2 septic emboli, pulm following, repeat CT 6-8 weeks 3. Anemia with hemoccult + stool - s/p EGD/Colon with Dr. Fletcher. Nonbleeding internal hemorrhoids. Continue PO iron 4. R knee effusion 2/2 reactive arthritis - Dr. Marroquin following, knee aspiration done. O/P F/U. 5. Chronic Hep C - follow up with ID as outpatient 6. T2DM - adjust insulins, start mealtime and back off lantus dose, continue to titrate to response, and cover with SSI 7. Severe protein calorie malnutrition-nutrition consult 8. Hyperlipidemia-statin 9. Hypertension-stable 10. Chronic back pain-MRI done, degenerative changes, no discitis or osteomyelitis. DVT prophylaxis-Lovenox Discharge planning: will need blood cultures to clear. This patient was seen by Carson Medina PA-C under the supervision of Doctor Bridgette. <Delmi Angeles - Last Filed: 02/10/19 16:08> - Physical Exam Vital Signs Temp Pulse Resp BP Pulse Ox 97.5 F L 75 16 132/81 H 99 02/10/19 12:45 02/10/19 15:00 02/10/19 12:45 02/10/19 12:45 02/10/19 12:45 Oxygen Flow Rate (L/min) 2 Oxygen Delivery Method Room Air Weight: 135 lb 2.294 oz Body Mass Index (BMI) 17.3 Finger Stick Blood Glucose 212 Intake and Output for Last 24 Hours 02/08/19 02/09/19 02/10/19 23:59 23:59 23:59 Intake Total 4439 / 4439 5043 / 5043 1713 / 1713 Output Total 1175 / 1175 350 / 350 850 / 850 Balance 3264 / 3264 4693 / 4693 863 / 863 Microbiology Past 72 Hours 02/06/19 14:55 Acid Fast Bacilli Smear - Final Tissue - Hand Acid Fast Bacilli Culture - Final Fungal Culture - Final Fungal Smear - Final 02/10/19 10:01 Gram Stain - Final Tissue - Other 02/06/19 14:55 Gram Stain - Final Tissue - Hand Wound Culture - Final Staphylococcus aureus Anaerobic Culture - Final No anaerobic bacteria isolated. 02/08/19 12:00 Blood Culture - Preliminary Blood Culture (Wb) - Arm Left Staphylococcus aureus 02/07/19 10:35 Blood Culture - Preliminary Blood Culture (Wb) - Arm Left 02/04/19 12:00 Blood Culture - Final Blood Culture (Wb) - Arm Right Gram Positive Cocci 02/06/19 10:24 Blood Culture - Preliminary Blood Culture (Wb) - Left Forearm 02/05/19 18:09 Blood Culture - Preliminary Blood Culture (Wb) - Right Forearm Staphylococcus aureus 02/03/19 13:00 Bacteria Detection (PCR) - Final Blood Culture (Wb) - Arm Left Staphylococcus aureus Blood Culture - Final Staphylococcus aureus 02/02/19 18:00 Gram Stain - Final Tissue - Other Wound Culture - Final Staphylococcus aureus Anaerobic Culture - Final No anaerobic bacteria isolated. Laboratory Tests Past 24 Hrs 02/10/19 02/10/19 02/10/19 05:28 05:28 05:28 WBC 18.9 H RBC 2.75 L Hgb 8.6 L Hct 25.1 L MCV 91.3 MCH 31.3 MCHC 34.3 RDW 11.9 RDW Differential 37.8 Plt Count 370 MPV 8.8 Immature Gran % (Auto) 2.600 H Neut % (Auto) 78.1 H Lymph % (Auto) 11.7 L [place] % (Auto) 7.2 Eos % (Auto) 0.3 Baso % (Auto) 0.1 Absolute Neuts (auto) 14.7 H Absolute Lymphs (auto) 2.21 Total Counted Not Reportable Differential Comment SCANNED Diff Path Review February foll PT 16.0 H INR 1.3 APTT 30.3 Sodium 135 L Potassium 3.6 Chloride 103 Carbon Dioxide 26.0 Anion Gap 6 BUN 16 Creatinine 0.72 Estim Creat Clear Calc 109.32 Est GFR (MDRD) Af Amer 146 Est GFR (MDRD) Non-Af 121 BUN/Creatinine Ratio 22.1 H Glucose 181 H Calcium 7.9 L Total Bilirubin 0.40 Direct Bilirubin 0.27 AST 44 H ALT 15 L Alkaline Phosphatase 140 H Total Protein 7.2 Albumin 1.7 L Globulin 5.5 H POC Glucose 02/10/19 02/10/19 02/09/19 12:04 06:54 21:36 POC Glucose 185 H 175 H 95 02/09/19 16:25 POC Glucose 176 H Assessment/Plan Hospitalist note: I am seeing this patient in conjunction with Carson Medina. I independently seen and examined the patient. Progress note above , laboratory data and imaging studies reviewed and I concur with the above treatment plan. Patient seen and examined. He complains of uncontrolled had pain today again. There is a concern that he is a drug-seeking patient. He denied fever or chills. His vital signs are stable. - Physical Exam General: Alert, Oriented x3, Cooperative, No apparent distress. HEENT: Atraumatic, PERRLA, EOMI. Neck: Supple, No JVD, Negative Carotid Bruits, Trachea Midline, Thyroid Normal. Lungs: Clear to auscultation, Normal air movement, No rhonchi, No wheeze, No rales. Cardiovascular: Regular rate, Regular Rhythm, Normal S1, Normal S2, PMI Normal. Abdomen: Bowel Sounds Present, Soft, Non Tender, Non-Distended, No Hepato-splenomegaly. Extremities: No clubbing, No cyanosis, No edema Skin: No rashes, left hand wound Neurological: Neuro grossly intact Vital Signs are stable. Assessment and plan: #1 MSSA left hand cellulitis/necrotic infection: Status post repeat incision and drainage that was done today. Remained on IV cefazolin, IV clindamycin discontinued. He has been afebrile, white blood cell count is trending down. Cultures reviewed. Infectious disease on the case. Repeat blood culture still positive for staph aureus, final is pending. Plan to continue same treatment, infectious disease managing. #2 mitral Valve MSSA endocarditis: On IV cefazolin. Infectious disease on the case, plan as above. Repeat blood culture on February 08, 2019 revealed showing staph aureus, final is pending. Blood culture repeated again today. #3 Persistent MSSA bacteremia: Source is the left hand necrotic wound infection/cellulitis. Repeat culture from 08 February still positive. Plan as above. #4 septic emboli of the lungs: On IV antibiotics as above, pulmonology on the case, plan for repeat CT scan in 6-8 weeks after antibiotics. #5 normocytic anemia: With positive Hemoccult blood. Upper EGD and colonoscopy showed no evidence of active bleeding. Today's hemoglobin is 8.6 g/dL, stable compared to yesterday. Plan to transfuse if hemoglobin came down below 8 g/dL. Continue iron supplement. #6 other chronic medical problems: Stable, continue current medications as above. This note was generated with [employer] dictation software. It may contain incorrect words, spelling, and punctuation that were not noted in checking the note before signing. Code Visit Inpatient E&M: 54523 Subs Hosp L2
[2019-02-10 16:31] LABS: Bedside Glucose 147 mg/dL (70-110)
[2019-02-10] MEDS: Insulin Lispro 100 UNIT/ML INSULN.PEN SC (17:40)
[2019-02-10] MEDS: Gabapentin 300 MG Capsule PO (17:41)
[2019-02-10] MEDS: Atorvastatin Calcium 40 MG Tablet PO (22:39)
[2019-02-10] MEDS: Pantoprazole Sodium 40 MG Tablet PO (22:39)
[2019-02-10] MEDS: Metoprolol Tartrate 25 MG Tablet PO (22:39)
[2019-02-10 22:45] LABS: Bedside Glucose 110 mg/dL (70-110)
[2019-02-10] MEDS: 0.9% NaCl Peripheral Flush Adult/Peds IV ×3 (23:10→23:56)
[2019-02-11] VITALS (12 sets, daily range): BP systolic 97–146; BP diastolic 56–82; PULSE 72–90; RESP 17–18; TEMP 36.9–37.3; O2SAT 94–100
[2019-02-11] MEDS: HYDROmorphone 2 MG TABLET 4 MG PO ×3 (03:46→17:19)
[2019-02-11] MEDS: Cefazolin 2 GM in 0.9% Normal Saline 100 ML IV ×3 (05:58→21:22)
[2019-02-11] MEDS: 0.9% NaCl Peripheral Flush Adult/Peds IV ×7 (05:58→21:24)
[2019-02-11] MEDS: HYDROmorphone 1 MG/ML Syringe IV ×4 (05:58→19:16)
[2019-02-11 06:46] LABS: Bedside Glucose 233 mg/dL (70-110)
[2019-02-11 06:57] LABS: Differential Indicated MANUAL DIFF; Hematocrit 25.5 % (40-54); Hemoglobin 8.8 g/dl (13.0-16.5); Mean Corp Hgb Conc 34.5 g/gl (32-36); Mean Corpuscular Hgb 31.7 pg (27.0-32.0); Mean Corpuscular Volume 91.7 fL (80-94); Mean Platelet Vol. 9.9 fl (6.2-12.0); POSITIVE COUNT YES; POSITIVE DIFFERENTIAL NO; POSITIVE MORPHOLOGY YES; Platelet Count 300 K/mm3 (150-450); RBC Distribution Width CV 12.1 % (11.6-14.6); Red Blood Count 2.78 M/mm3 (4.6-6.2); White Blood Count 13.5 K/mm3 (4.4-11.0)
[2019-02-11 07:01] LABS: Anion Gap 6 (5-15); BUN 14 mg/dL (7-18); BUN/Creat Ratio 21.3 RATIO (10-20); Calcium,Total 8.2 mg/dL (8.5-10.1); Chloride 104 mmol/L (98-107); Creatinine, Serum 0.66 mg/dL (0.70-1.30); EST Glomerular Filtration Rate 135 mL/min (>60); Est Glom Filt Rate - Afr Amer 164 mL/min (>60); Estimated Creatinine Clearance 137.78 ml/min; Glucose 225 mg/dL (74-106); Potassium 3.7 mmol/L (3.5-5.1); Sodium Level 136 mmol/L (136-145)
[2019-02-11 07:30] LABS: Anisocytosis 1+; Eosinophil 1 % (0-5); Hypochromasia 1+; Lymphocyte 10 % (19-41); Microcytosis 1+; Monocyte 4 % (0-10); Neutrophil-Segmented 85 % (47-70); Total Cells Counted 100 (MANUAL DIFF)
[2019-02-11 07:31] LABS: Platelet Estimate ADEQUATE (ADEQ)
[2019-02-11 07:32] LABS: Absolute Lymphocyte Count 1.35 X10^3/ul (0.83-4.51); Absolute Neutrophil Count 11.5 X10^3/uL (2.0-7.7)
--- NOTE | 2019-02-11 09:15 | CASEMGMT ---
SW spoke with patient. Introduced self and role at [facility]. SW explained to patient that we are working to get him to a correction. SW explained that in order to get insurance to approve him to go to a correction he needs to work with therapy when they come and see him. SW told him he does not have to walk the halls, but at least attempt to get out of bed and walk in room at least. SW understands that he is in pain sometimes and it is hard, but insurance will want to see he is trying. He denied refusing therapy. He said if he is in excruciating pain he will not do therapy. SW encouraged him to do his best and cooperate with therapy. Plan: [facility] in [place] pending patient being medically ready and insurance approving. Arely VILLARREAL MSW
[2019-02-11] MEDS: Metoprolol Tartrate 25 MG Tablet PO (09:37)
[2019-02-11] MEDS: Pantoprazole Sodium 40 MG Tablet PO ×2 (09:37→21:23)
[2019-02-11] MEDS: Magnesium Oxide 400 MG Tablet PO (09:38)
[2019-02-11] MEDS: Iron Polysaccharide Complex 150 MG CAPSULE PO (09:38)
[2019-02-11] MEDS: Gabapentin 300 MG Capsule PO ×3 (09:38→17:15)
[2019-02-11] MEDS: Lisinopril 20 MG Tablet PO (09:39)
[2019-02-11] MEDS: NIFEdipine 30 MG Tablet PO (09:39)
[2019-02-11] MEDS: Sertraline 50 MG Tablet PO (09:39)
[2019-02-11] MEDS: Enoxaparin 40 MG/0.4 ML Syringe SC (09:41)
[2019-02-11] MEDS: Glucerna Shake 120 ML LIQUID PO (09:44)
[2019-02-11] MEDS: Insulin Lispro 100 UNIT/ML INSULN.PEN SC ×5 (10:22→18:08)
--- NOTE | 2019-02-11 12:00 | PN_ITS ---
<Carson Medina - Last Filed: 02/11/19 11:56> Patient Problems: Active and Suspected Problems (Last Reviewed 02/01/19 @ 08:28 by Nan Saucedo DO) Sepsis (Acute) Cellulitis (Acute) Dehydration (Acute) Hypokalemia (Acute) MSSA bacteremia (Acute) Knee effusion, right (Acute) Knee pain, right (Acute) Subjective: Currently primary complaint is pain at his right knee. He is able to partially flex and fully extend. He does feel that the effusion is much better than when he initially came. He has no fevers or chills. No CP or palp. No dizziness or LH. No SOB or cough. He is agreeable to working with PTOT today. - Physical Exam General: Alert, Oriented x3, Cooperative, - - cachectic HEENT: Atraumatic, PERRLA, EOMI, Normocephalic Neck: Supple, No JVD, Negative Carotid Bruits Lungs: Clear to auscultation, Normal air movement Cardiovascular: Regular rate, No murmurs Abdomen: Bowel Sounds Present, Soft, Non Tender Extremities: No edema, Capillary Refill Less than 3 Seconds Skin: No rashes, No breakdown Musculoskeletal: No Tenderness to Palpation of Joints or Extremities, - - right knee with bogginess, tender to palp. No erythema or warmth. ROM intact somewhat limited 2/2 pain with flexion. Neurological: Cranial nerves II-XII grossly intact Psych/Mental Status: Normal Affect, Appropriate, Alert and oriented to time, place, person, mood and affect Vital Signs Temp Pulse Resp BP Pulse Ox 98.6 F 89 17 142/79 H 97 02/11/19 09:29 02/11/19 11:02 02/11/19 09:29 02/11/19 09:29 02/11/19 09:29 Oxygen Flow Rate (L/min) 2 Oxygen Delivery Method Room Air Weight: 164 lb 0.383 oz Body Mass Index (BMI) 17.3 Finger Stick Blood Glucose 212 Intake and Output for Last 24 Hours 02/09/19 02/10/19 02/11/19 23:59 23:59 23:59 Intake Total 5043 / 5043 1834 / 1834 Output Total 350 / 350 1475 / 1475 Balance 4693 / 4693 359 / 359 Microbiology Past 72 Hours 02/10/19 10:01 Gram Stain - Final Tissue - Other Wound Culture - Preliminary Staphylococcus species 02/05/19 18:09 Blood Culture - Final Blood Culture (Wb) - Right Forearm Staphylococcus aureus 02/06/19 14:55 Acid Fast Bacilli Smear - Final Tissue - Hand Acid Fast Bacilli Culture - Final Fungal Culture - Final Fungal Smear - Final 02/06/19 14:55 Gram Stain - Final Tissue - Hand Wound Culture - Final Staphylococcus aureus Anaerobic Culture - Final No anaerobic bacteria isolated. 02/08/19 12:00 Blood Culture - Preliminary Blood Culture (Wb) - Arm Left Staphylococcus aureus 02/07/19 10:35 Blood Culture - Preliminary Blood Culture (Wb) - Arm Left 02/04/19 12:00 Blood Culture - Final Blood Culture (Wb) - Arm Right Gram Positive Cocci 02/06/19 10:24 Blood Culture - Preliminary Blood Culture (Wb) - Left Forearm 02/03/19 13:00 Bacteria Detection (PCR) - Final Blood Culture (Wb) - Arm Left Staphylococcus aureus Blood Culture - Final Staphylococcus aureus 02/02/19 18:00 Gram Stain - Final Tissue - Other Wound Culture - Final Staphylococcus aureus Anaerobic Culture - Final No anaerobic bacteria isolated. Laboratory Tests Past 24 Hrs 02/11/19 02/11/19 05:30 05:30 WBC 13.5 H RBC 2.78 L Hgb 8.8 L Hct 25.5 L MCV 91.7 MCH 31.7 MCHC 34.5 RDW 12.1 RDW Differential 39.0 Plt Count 300 MPV 9.9 Neut % (Auto) Not Reportable Absolute Neuts (auto) 11.5 H Absolute Lymphs (auto) 1.35 Total Counted 100 Neutrophils % (Manual) 85 H Lymphocytes % (Manual) 10 L Monocytes % (Manual) 4 Eosinophils % (Manual) 1 Diff Path Review May foll Platelet Estimate ADEQUATE Hypochromasia 1+ Anisocytosis 1+ Microcytosis 1+ Sodium 136 Potassium 3.7 Chloride 104 Carbon Dioxide 26.0 Anion Gap 6 BUN 14 Creatinine 0.66 L Estim Creat Clear Calc 137.78 Est GFR (MDRD) Af Amer 164 Est GFR (MDRD) Non-Af 135 BUN/Creatinine Ratio 21.3 H Glucose 225 H Calcium 8.2 L POC Glucose 02/11/19 02/10/19 02/10/19 06:38 22:37 16:25 POC Glucose 233 H 110 147 H 02/10/19 12:04 POC Glucose 185 H Medical Necessity - Tobacco Use Smoking Status: Former smoker Tobacco Use: Non-smoker Assessment/Plan All Active Problems (Last Reviewed 02/01/19 @ 08:28 by Nan Saucedo DO) Necrotizing soft tissue infection (Acute) Abscess of dorsum of left hand (Acute) Abscess of bursa, left hand (Acute) Abscess of thumb, left (Acute) Suppurative tenosynovitis of flexor tendon of left hand (Acute) Sepsis (Acute) Cellulitis (Acute) Dehydration (Acute) Hypokalemia (Acute) MSSA bacteremia (Acute) Knee effusion, right (Acute) Knee pain, right (Acute) Acute pancreatitis (Resolved) Gastroenteritis (Resolved) 1. Acute sepsis with bacteremia 2/2 Cellulitis / necrotic LUE infections, MSSA, with associated MV endocarditis -Continue Ancef and Clinda per ID -Blood cultures persistently positive. -WBCs improving further -Washout yesterday with [place], likely recent Wednesday or Wednesday. -no murmur present. 2. Multiple bilateral cavitary lung lesion - 2/2 septic emboli, pulm following, repeat CT 6-8 weeks 3. Anemia with hemoccult + stool - s/p EGD/Colon with Dr. Fletcher. Nonbleeding internal hemorrhoids. Continue PO iron 4. R knee effusion 2/2 reactive arthritis - Dr. Marroquin following, knee aspirat ion done. O/P F/U. -add ice pack today as he has more pain here. Reconsult Dr. Marroquin for another aspiration if the swelling grows again. 5. Chronic Hep C - follow up with ID as outpatient 6. T2DM - adjust insulins, start mealtime and back off lantus dose, continue to titrate to response, and cover with SSI 7. Severe protein calorie malnutrition-nutrition consult 8. Hyperlipidemia-statin 9. Hypertension-stable 10. Chronic back pain-MRI done, degenerative changes, no discitis or osteomyelitis. DVT prophylaxis-Lovenox Discharge planning: will need blood cultures to clear. Then to SNF, however he refused therapy yesterday. today he is agreeable. This patient was seen by Carson Medina PA-C under the supervision of Doctor Bridgette. <Delmi Angeles E - Last Filed: 02/11/19 12:10> - Physical Exam Vital Signs Temp Pulse Resp BP Pulse Ox 98.6 F 89 17 142/79 H 97 02/11/19 09:29 02/11/19 11:02 02/11/19 09:29 02/11/19 09:29 02/11/19 09:29 Oxygen Flow Rate (L/min) 2 Oxygen Delivery Method Room Air Weight: 164 lb 0.383 oz Body Mass Index (BMI) 17.3 Finger Stick Blood Glucose 212 Intake and Output for Last 24 Hours 02/09/19 02/10/19 02/11/19 23:59 23:59 23:59 Intake Total 5043 / 5043 1834 / 1834 Output Total 350 / 350 1475 / 1475 Balance 4693 / 4693 359 / 359 Microbiology Past 72 Hours 02/10/19 10:01 Gram Stain - Final Tissue - Other Wound Culture - Preliminary Staphylococcus species 02/05/19 18:09 Blood Culture - Final Blood Culture (Wb) - Right Forearm Staphylococcus aureus 02/06/19 14:55 Acid Fast Bacilli Smear - Final Tissue - Hand Acid Fast Bacilli Culture - Final Fungal Culture - Final Fungal Smear - Final 02/06/19 14:55 Gram Stain - Final Tissue - Hand Wound Culture - Final Staphylococcus aureus Anaerobic Culture - Final No anaerobic bacteria isolated. 02/08/19 12:00 Blood Culture - Preliminary Blood Culture (Wb) - Arm Left Staphylococcus aureus 02/07/19 10:35 Blood Culture - Preliminary Blood Culture (Wb) - Arm Left 02/04/19 12:00 Blood Culture - Final Blood Culture (Wb) - Arm Right Gram Positive Cocci 02/06/19 10:24 Blood Culture - Preliminary Blood Culture (Wb) - Left Forearm 02/03/19 13:00 Bacteria Detection (PCR) - Final Blood Culture (Wb) - Arm Left Staphylococcus aureus Blood Culture - Final Staphylococcus aureus 02/02/19 18:00 Gram Stain - Final Tissue - Other Wound Culture - Final Staphylococcus aureus Anaerobic Culture - Final No anaerobic bacteria isolated. Laboratory Tests Past 24 Hrs 02/11/19 02/11/19 05:30 05:30 WBC 13.5 H RBC 2.78 L Hgb 8.8 L Hct 25.5 L MCV 91.7 MCH 31.7 MCHC 34.5 RDW 12.1 RDW Differential 39.0 Plt Count 300 MPV 9.9 Neut % (Auto) Not Reportable Absolute Neuts (auto) 11.5 H Absolute Lymphs (auto) 1.35 Total Counted 100 Neutrophils % (Manual) 85 H Lymphocytes % (Manual) 10 L Monocytes % (Manual) 4 Eosinophils % (Manual) 1 Diff Path Review May foll Platelet Estimate ADEQUATE Hypochromasia 1+ Anisocytosis 1+ Microcytosis 1+ Sodium 136 Potassium 3.7 Chloride 104 Carbon Dioxide 26.0 Anion Gap 6 BUN 14 Creatinine 0.66 L Estim Creat Clear Calc 137.78 Est GFR (MDRD) Af Amer 164 Est GFR (MDRD) Non-Af 135 BUN/Creatinine Ratio 21.3 H Glucose 225 H Calcium 8.2 L POC Glucose 02/11/19 02/10/19 02/10/19 06:38 22:37 16:25 POC Glucose 233 H 110 147 H 02/10/19 12:04 POC Glucose 185 H Assessment/Plan Hospitalist note: I am seeing this patient in conjunction with Carson Medina. I independently seen and examined the patient. Progress note above and laboratory data reviewed and I concur with the above treatment plan. Patient seen and examined. Today, his pain is controlled. Denies fever chills. Hemodynamically stable. - Physical Exam General: Alert, Oriented x3, Cooperative, No apparent distress. HEENT: Atraumatic, PERRLA, EOMI. Neck: Supple, No JVD, Negative Carotid Bruits, Trachea Midline, Thyroid Normal. Lungs: Clear to auscultation, Normal air movement, No rhonchi, No wheeze, No rales. Cardiovascular: Regular rate, Regular Rhythm, Normal S1, Normal S2, PMI Normal. Abdomen: Bowel Sounds Present, Soft, Non Tender, Non-Distended, No Hepato-spleno megaly. Extremities: No clubbing, No cyanosis, No edema Skin: No rashes, left hand wound Neurological: Neuro grossly intact Vital Signs are stable. Assessment and plan: #1 MSSA left hand cellulitis/necrotic infection: Status post initial and repeat repeat incision and drainage. Remained on IV cefazolin only. He has been afebrile, white blood cell count is trending down. Cultures reviewed. Infe ctious disease on the case. Repeat blood culture still positive for staph aureus, final is pending. Plan to continue same treatment, infectious disease managing. #2 mitral Valve MSSA endocarditis: Remained on IV cefazolin. Infectious disease on the case, plan as above. Repeat blood culture on February 08, 2019 revealed showing staph aureus, final is pending. Repeat blood culture that was done y esterday are pending. #3 Persistent MSSA bacteremia: Source is the left hand necrotic wound infection/cellulitis. Repeat culture from 08 February still positive. Repeat cultures pending. #4 septic emboli of the lungs: On IV antibiotics as above, pulmonology on the case, plan for repeat CT scan in 6-8 weeks after antibiotics. #5 normocytic anemia: With positive Hemoccult blood. Upper EGD and colonoscopy showed no evidence of active bleeding. Today's hemoglobin is 8.8 g/dL, stable compared to yesterday. Plan to transfuse if hemoglobin came down below 8 g/dL. Continue iron supplement. #6 other chronic medical problems: Stable, continue current medications as above. This note was generated with [employer] software. It may contain incorrect words, spelling, and punctuation that were not noted in checking the note before signing. Code Visit Inpatient E&M: 77514 Subs Hosp L2
[2019-02-11 12:41] LABS: Bedside Glucose 231 mg/dL (70-110)
--- NOTE | 2019-02-11 13:54 | PN.SURG_ITS ---
Patient Problems: Active and Suspected Problems (Last Reviewed 02/01/19 @ 08:28 by Nan Saucedo DO) Sepsis (Acute) Cellulitis (Acute) Dehydration (Acute) Hypokalemia (Acute) MSSA bacteremia (Acute) Knee effusion, right (Acute) Knee pain, right (Acute) Subjective: Postop #9 and #5 and #1 Patient is resting comfortably with intermittent pain. He is tolerating the IV analgesia being decreased to every 6 hours despite his complaints to the contrary. He tolerated the dressing change reasonably well today. - Physical Exam General: Oriented x3 HEENT: PERRLA, EOMI Oral: Moist Mucosa Neck: Supple Abdomen: Soft, Non-Distended Skin: Ulcer/ Wound - multiple wounds left thumb, thenar eminence, and dorsum left hand are stable. Additional wounds on the dorsum of the hand and the midpalm are stable. No active bleeding. No further evidence of pus or infection noted. Swelling slowly resolving. Some granulation tissue seen. Irrigated wounds with saline. Patient tolerated the dressing change a little better today. Wounds redressed with Silver dressing. Patient needed IV analgesia for the dressing change. Concern about early RSD shows no progression . Neurological: Cranial nerves II-XII grossly intact Psych/Mental Status: Normal Affect, Appropriate Vital Signs Temp Pulse Resp BP Pulse Ox 98.6 F 89 17 142/79 H 97 02/11/19 09:29 02/11/19 11:02 02/11/19 09:29 02/11/19 09:29 02/11/19 09:29 Oxygen Flow Rate (L/min) 2 Oxygen Delivery Method Room Air Weight: 164 lb 0.383 oz Body Mass Index (BMI) 17.3 Finger Stick Blood Glucose 212 Intake and Output for Last 24 Hours 02/09/19 02/10/19 02/11/19 23:59 23:59 23:59 Intake Total 5043 / 5043 1834 / 1834 700 / 700 Output Total 350 / 350 1475 / 1475 Balance 4693 / 4693 359 / 359 700 / 700 Microbiology Past 72 Hours 02/06/19 10:24 Blood Culture - Final Blood Culture (Wb) - Left Forearm Staphylococcus aureus 02/10/19 10:01 Gram Stain - Final Tissue - Other Wound Culture - Preliminary Staphylococcus species 02/05/19 18:09 Blood Culture - Final Blood Culture (Wb) - Right Forearm Staphylococcus aureus 02/06/19 14:55 Acid Fast Bacilli Smear - Final Tissue - Hand Acid Fast Bacilli Culture - Final Fungal Culture - Final Fungal Smear - Final 02/06/19 14:55 Gram Stain - Final Tissue - Hand Wound Culture - Final Staphylococcus aureus Anaerobic Culture - Final No anaerobic bacteria isolated. 02/08/19 12:00 Blood Culture - Preliminary Blood Culture (Wb) - Arm Left Staphylococcus aureus 02/07/19 10:35 Blood Culture - Preliminary Blood Culture (Wb) - Arm Left 02/04/19 12:00 Blood Culture - Final Blood Culture (Wb) - Arm Right Gram Positive Cocci 02/03/19 13:00 Bacteria Detection (PCR) - Final Blood Culture (Wb) - Arm Left Staphylococcus aureus Blood Culture - Final Staphylococcus aureus 02/02/19 18:00 Gram Stain - Final Tissue - Other Wound Culture - Final Staphylococcus aureus Anaerobic Culture - Final No anaerobic bacteria isolated. Laboratory Tests Past 24 Hrs 02/11/19 02/11/19 05:30 05:30 WBC 13.5 H RBC 2.78 L Hgb 8.8 L Hct 25.5 L MCV 91.7 MCH 31.7 MCHC 34.5 RDW 12.1 RDW Differential 39.0 Plt Count 300 MPV 9.9 Neut % (Auto) Not Reportable Absolute Neuts (auto) 11.5 H Absolute Lymphs (auto) 1.35 Total Counted 100 Neutrophils % (Manual) 85 H Lymphocytes % (Manual) 10 L Monocytes % (Manual) 4 Eosinophils % (Manual) 1 Diff Path Review May foll Platelet Estimate ADEQUATE Hypochromasia 1+ Anisocytosis 1+ Microcytosis 1+ Sodium 136 Potassium 3.7 Chloride 104 Carbon Dioxide 26.0 Anion Gap 6 BUN 14 Creatinine 0.66 L Estim Creat Clear Calc 137.78 Est GFR (MDRD) Af Amer 164 Est GFR (MDRD) Non-Af 135 BUN/Creatinine Ratio 21.3 H Glucose 225 H Calcium 8.2 L POC Glucose 02/11/19 02/11/19 02/10/19 12:26 06:38 22:37 POC Glucose 231 H 233 H 110 02/10/19 16:25 POC Glucose 147 H Medical Necessity - Tobacco Use Smoking Status: Former smoker Tobacco Use: Non-smoker Assessment/Plan All Active Problems (Last Reviewed 02/01/19 @ 08:28 by M Renita Sementi, DO) Necrotizing soft tissue infection (Acute) Abscess of dorsum of left hand (Acute) Abscess of bursa, left hand (Acute) Abscess of thumb, left (Acute) Suppurative tenosynovitis of flexor tendon of left hand (Acute) Sepsis (Acute) Cellulitis (Acute) Dehydration (Acute) Hypokalemia (Acute) MSSA bacteremia (Acute) Knee effusion, right (Acute) Knee pain, right (Acute) Acute pancreatitis (Resolved) Gastroenteritis (Resolved) 1. 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 2. Necrotizing diabetic abscess thenar eminence left palm extending through thenar muscles and first dorsal interosseous muscle. 3. Necrotizing diabetic abscess dorsum left hand at first webspace extending through first dorsal interosseous muscle and thenar muscles. 4. Suppurative flexor tenosynovitis. 5. Diabetes mellitus. 6. Sepsis. 7. s/p surgical preparation left thumb and thenar eminence and dorsum hand over first webspace with incision and drainage and excisional debridement complex necrotizing diabetic abscesses (33 cm2) and incision and drainage tendon sheath left thumb for suppurative flexor tenosynovitis and incision and drainage necrotizing diabetic abscess dorsum left thumb involving extensor tendon with tenosynovitis and incision and drainage necrotizing diabetic abscess thenar eminence left palm extending through thenar muscles (abductor pollicis brevis, flexor pollicis brevis, opponens pollicis, and adductor pollicis) and first dorsal interosseous muscle and incision and drainage necrotizing diabetic abscess first dorsal webspace left hand extending through first dorsal interosseous muscle and thenar muscles (abductor pollicis brevis, flexor pollicis brevis, opponens pollicis, and adductor pollicis). 8. Anemia of chronic disease, acute on chronic. 9. Early RSD. Patient tolerated the Silver dressing change better today. He still needed IV analgesia. Concerns about early RSD have not progressed since starting Zoloft and Procardia XL. The increased Neurontin has been helpful. Swelling slowly resolving. Less than preop. No further pus seen in the wounds. With the severity of the infection, I anticipate the swelling will take several days to resolve. I irrigated the wounds with saline today. Some granulation tissue seen. Operative culture shows Staphylococcus aureus thus far. Presently he is on Ancef and Cleocin. With the severity of the infection with pus diffuse throughout the thumb with suppurative flexor tenosynovitis and thenar space with extension to dorsum of prieto nd, he will need IV antibiotics for 6 weeks. Infectious Diseases is on board for antibiotic management. Will evaluate the hand wounds closely. His WBC has decreased from 18.9 to 13.5. His temps have stabilized as he has been afebrile last several days. The WBC is finally decreasing in an appreciably way. Will see how he does over the next couple of days. I will decide if he would benefit from another incision and drainage and irrigation and excisional debridement procedure. Patient voices understanding. I think these incision and drainage and irrigation and excisional debridement procedures have been helpful. No pus was seen but there was still some residual fat necrosis that was debrided. Extra incisions did not show any pus either so no progression seen from the thenar space and thumb area. Keep left hand elevated. Patient will need aggressive OT for range of motion exercises, strengthening, and edema management after discharge to minimize stiffness. Patient is at high risk for residual stiffness in his left thumb and hand. Anticipate increased metabolic demands from the infection and the surgical wounds. Prealbumin was <3 Encourage nutritional supplementation with protein to help the healing process. With the complexity of the wound and the need for IV antibiotics, patient needs to go to an ECF. Evaluation in process.
[2019-02-11 17:31] LABS: Bedside Glucose 156 mg/dL (70-110)
[2019-02-11] MEDS: Atorvastatin Calcium 40 MG Tablet PO (21:22)
--- NOTE | 2019-02-11 21:22 | NURSING ---
Mr. West asked for pain medications upon briefly waking up. 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 Patient was woken up to give night time medications, he dumped them on his chest rather than in his mouth. This RN scooped up his medications into the cup and woke patient up again. Patient stated he already took them. Patient then grabbed cup and put in mouth. This RN talked to the patient and held his drink for him so he would swallow them. He was able to swallow medication without any complications.
[2019-02-11 23:05] LABS: Bedside Glucose 95 mg/dL (70-110)
[2019-02-12] VITALS (15 sets, daily range): BP systolic 98–134; BP diastolic 53–75; PULSE 73–91; RESP 16–18; TEMP 36.7–37.2; O2SAT 97–99
--- NOTE | 2019-02-12 00:27 | NURSING ---
This RN has been notified numerous times throughout the night by patient wanting pain medications. Patient is not due for medication and then asks for many different types of medication. He became irritated when he was told he is not due for pain medications at this time. Then patient fell asleep in middle of talking to this RN.
[2019-02-12] MEDS: HYDROmorphone 1 MG/ML Syringe IV ×5 (01:41→21:36)
[2019-02-12] MEDS: 0.9% NaCl Peripheral Flush Adult/Peds IV ×5 (01:41→21:33)
--- NOTE | 2019-02-12 01:47 | NURSING ---
This RN offered patient Oral pain medications. Patient refused oral pain medications, stated he wants IV medications, so he can go back to sleep. If he does not get IV pain medication he will call the doctor himself.
[2019-02-12] MEDS: Cefazolin 2 GM in 0.9% Normal Saline 100 ML IV ×3 (06:30→21:33)
[2019-02-12 07:01] LABS: Bedside Glucose 307 mg/dL (70-110)
[2019-02-12] MEDS: Iron Polysaccharide Complex 150 MG CAPSULE PO (08:38)
[2019-02-12] MEDS: Gabapentin 300 MG Capsule PO ×2 (08:38→16:46)
[2019-02-12] MEDS: Magnesium Oxide 400 MG Tablet PO (08:38)
[2019-02-12] MEDS: Insulin Lispro 100 UNIT/ML INSULN.PEN SC ×3 (08:39→16:39)
[2019-02-12] MEDS: Insulin Lispro 100 UNIT/ML INSULN.PEN 6 UNIT SC ×2 (08:40→12:34)
[2019-02-12] MEDS: Enoxaparin 40 MG/0.4 ML Syringe SC (08:41)
[2019-02-12] MEDS: Metoprolol Tartrate 25 MG Tablet PO ×2 (08:41→21:35)
[2019-02-12] MEDS: NIFEdipine 30 MG Tablet PO (08:41)
[2019-02-12] MEDS: Pantoprazole Sodium 40 MG Tablet PO ×2 (08:49→21:35)
[2019-02-12] MEDS: Sertraline 50 MG Tablet PO (08:49)
[2019-02-12] MEDS: Lisinopril 20 MG Tablet PO (08:49)
[2019-02-12] MEDS: diazePAM 5 MG Tablet PO ×2 (09:00→15:49)
[2019-02-12] MEDS: HYDROmorphone 2 MG TABLET 4 MG PO ×2 (11:38→18:04)
[2019-02-12 11:51] LABS: Bedside Glucose 324 mg/dL (70-110)
--- NOTE | 2019-02-12 12:05 | PN.SURG_ITS ---
Patient Problems: Active and Suspected Problems (Last Reviewed 02/01/19 @ 08:28 by Nan Saucedo DO) Sepsis (Acute) Cellulitis (Acute) Dehydration (Acute) Hypokalemia (Acute) MSSA bacteremia (Acute) Knee effusion, right (Acute) Knee pain, right (Acute) Subjective: Postop #10 and #6 and #2 Patient is resting comfortably with intermittent pain. He is tolerating the IV analgesia being decreased to every 6 hours despite his complaints to the contrary. He tolerated the dressing change reasonably well today. - Physical Exam General: Alert, Oriented x3 HEENT: PERRLA, EOMI Oral: Moist Mucosa Neck: Supple Abdomen: Soft, Non-Distended Skin: Ulcer/ Wound - multiple wounds left thumb, thenar eminence, and dorsum left hand are stable. Additional wounds on the dorsum of the hand and the midpalm are stable. No active bleeding. No further evidence of pus or infection noted. Swelling slowly resolving. Some granulation tissue seen. Irrigated wounds with saline. Patient tolerated the dressing change a little better today. Wounds redressed with Silver dressing. Patient needed IV analgesia for the dressing change. Concern about early RSD shows no pro gression. Neurological: Cranial nerves II-XII grossly intact Psych/Mental Status: Normal Affect, Appropriate Vital Signs Temp Pulse Resp BP Pulse Ox 98.0 F 84 18 134/71 H 97 02/12/19 11:36 02/12/19 11:36 02/12/19 11:36 02/12/19 11:36 02/12/19 11:36 Oxygen Flow Rate (L/min) 2 Oxygen Delivery Method Room Air Weight: 140 lb 3.424 oz Body Mass Index (BMI) 17.3 Finger Stick Blood Glucose 212 Intake and Output for Last 24 Hours 02/10/19 02/11/19 02/12/19 23:59 23:59 23:59 Intake Total 1834 / 1834 1666 / 1666 377 / 377 Output Total 1475 / 1475 1000 / 1000 700 / 700 Balance 359 / 359 666 / 666 -323 / -323 Microbiology Past 72 Hours 02/10/19 10:01 Gram Stain - Final Tissue - Other Wound Culture - Final Staphylococcus aureus 02/04/19 12:00 Blood Culture - Final Blood Culture (Wb) - Arm Right Staphylococcus aureus 02/07/19 10:35 Blood Culture - Preliminary Blood Culture (Wb) - Arm Left Staphylococcus aureus 02/09/19 09:44 Blood Culture - Preliminary Blood Culture (Wb) - Left Forearm No growth in 48 hours. 02/06/19 10:24 Blood Culture - Final Blood Culture (Wb) - Left Forearm Staphylococcus aureus 02/05/19 18:09 Blood Culture - Final Blood Culture (Wb) - Right Forearm Staphylococcus aureus 02/06/19 14:55 Acid Fast Bacilli Smear - Final Tissue - Hand Acid Fast Bacilli Culture - Final Fungal Culture - Final Fungal Smear - Final 02/06/19 14:55 Gram Stain - Final Tissue - Hand Wound Culture - Final Staphylococcus aureus Anaerobic Culture - Final No anaerobic bacteria isolated. 02/08/19 12:00 Blood Culture - Preliminary Blood Culture (Wb) - Arm Left Staphylococcus aureus POC Glucose 02/12/19 02/12/19 02/11/19 11:44 06:35 21:31 POC Glucose 324 H 307 H 95 02/11/19 02/11/19 17:24 12:26 POC Glucose 156 H 231 H Medical Necessity - Tobacco Use Smoking Status: Former smoker Tobacco Use: Non-smoker Assessment/Plan All Active Problems (Last Reviewed 02/01/19 @ 08:28 by Nan Saucedo DO) Necrotizing soft tissue infection (Acute) Abscess of dorsum of left hand (Acute) Abscess of bursa, left hand (Acute) Abscess of thumb, left (Acute) Suppurative tenosynovitis of flexor tendon of left hand (Acute) Sepsis (Acute) Cellulitis (Acute) Dehydration (Acute) Hypokalemia (Acute) MSSA bacteremia (Acute) Knee effusion, right (Acute) Knee pain, right (Acute) Acute pancreatitis (Resolved) Gastroenteritis (Resolved) 1. 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 2. Necrotizing diabetic abscess thenar eminence left palm extending through thenar muscles and first dorsal interosseous muscle. 3. Necrotizing diabetic abscess dorsum left hand at first webspace extending through first dorsal interosseous muscle and thenar muscles. 4. Suppurative flexor tenosynovitis. 5. Diabetes mellitus. 6. Sepsis. 7. s/p surgical preparation left thumb and thenar eminence and dorsum hand over first webspace with incision and drainage and excisional debridement complex n ecrotizing diabetic abscesses (33 cm2) and incision and drainage tendon sheath left thumb for suppurative flexor tenosynovitis and incision and drainage necrotizing diabetic abscess dorsum left thumb involving extensor tendon with tenosynovitis and incision and drainage necrotizing diabetic abscess thenar eminence left palm extending through thenar muscles (abductor pollicis brevis, flexor pollicis brevis, opponens pollicis, and adductor pollicis) and first dorsal interosseous muscle and incision and drainage necrotizing diabetic abscess first dorsal webspace left hand extending through first dorsal interosseous muscle and thenar muscles (abductor pollicis brevis, flexor pollicis brevis, opponens pollicis, and adductor pollicis). 8. Anemia of chronic disease, acute on chronic. 9. Early RSD, stable. Patient tolerated the Silver dressing change better today. He still needed IV analgesia. Concerns about early RSD have not progressed since starting Zoloft and Procardia XL. The increased Neurontin has been helpful. Swelling slowly resolving. Less than preop. No further pus seen in the wounds. With the severity of the infection, I anticipate the swelling will take several days to resolve. I irrigated the wounds with saline today. Some granulation tissue seen. Operative culture shows Staphylococcus aureus thus far. Presently he is on Ancef and Cleocin. With the severity of the infection with pus diffuse throughout the thumb with suppurative flexor tenosynovitis and thenar space with extension to dorsum of hand, he will need IV antibiotics for 6 weeks. Infectious Diseases is on board for antibiotic management. Will evaluate the hand wounds closely. His WBC has decreased from 13.5 to 11.6. His temps have stabilized as he has been afebrile last several days. The WBC is finally decreasing in an appreciably way. Will see how he does over the next couple of days. I will decide if he would benefit from another incision and drainage and irrigation and excisional debridement procedure. Patient voices understanding. I think these incision and drainage and irrigation and excisional debridement procedures have been helpful. No pus was seen but there was still some residual fat necrosis that was debrided. Extra incisions did not show any pus either so no progression seen from the thenar space and thumb area. Keep left hand elevated. Patient will need aggressive OT for range of motion exercises, strengthening, and edema management after discharge to minimize stiffness. Patient is at high risk for residual stiffness in his left thumb and hand. Anticipate increased metabolic demands from the infection and the surgical wounds. Prealbumin was <3 Encourage nutritional supplementation with protein to help the healing process. With the complexity of the wound and the need for IV antibiotics, patient needs to go to an ECF. Evaluation in process. He has anemia of chronic disease, acute on chronic. His Hgb was 8.8 a week ago and is 8.9 today. There is no evidence of ongoing blood loss. He has some IV dilution. He is currently on Iron supplementation. There is no need for PRBC ats this time. If it drifts below 8, then would transfuse.
[2019-02-12 12:20] LABS: Hematocrit 26.1 % (40-54); Hemoglobin 8.9 g/dl (13.0-16.5); Mean Corp Hgb Conc 34.1 g/gl (32-36); Mean Corpuscular Hgb 31.8 pg (27.0-32.0); Mean Corpuscular Volume 93.2 fL (80-94); Mean Platelet Vol. 8.5 fl (6.2-12.0); Platelet Count 374 K/mm3 (150-450); RBC Distribution Width CV 12.6 % (11.6-14.6); RBC Distribution Width SD 40.7 fl (35.1-43.9); Scan Indicated on CBC? Y/N NO; White Blood Count 11.6 K/mm3 (4.4-11.0)
[2019-02-12 12:38] LABS: Anion Gap 3 (5-15); BUN 20 mg/dL (7-18); BUN/Creat Ratio 26.8 RATIO (10-20); Chloride 105 mmol/L (98-107); Creatinine, Serum 0.75 mg/dL (0.70-1.30); EST Glomerular Filtration Rate 116 mL/min (>60); Est Glom Filt Rate - Afr Amer 141 mL/min (>60); Estimated Creatinine Clearance 103.64 ml/min; Glucose 282 mg/dL (74-106); Potassium 4.1 mmol/L (3.5-5.1); Sodium Level 134 mmol/L (136-145)
--- NOTE | 2019-02-12 13:15 | PCM.PROGNOTE ---
<Carson Medina - Last Filed: 02/12/19 13:15> Patient Problems: Active and Suspected Problems (Last Reviewed 02/01/19 @ 08:28 by Nan Saucedo DO) Sepsis (Acute) Cellulitis (Acute) Dehydration (Acute) Hypokalemia (Acute) MSSA bacteremia (Acute) Knee effusion, right (Acute) Knee pain, right (Acute) Subjective: No acute issues. Blood cultures remains negative. He was upset that he asked for his PRN medications, but then fell asleep so they were not given since he was sleeping. Nursing reported significant drowsiness while awake as well. No fever or chills. No cough/SOB - Physical Exam General: Alert, Oriented x3, Cooperative, - - frail HEENT: Atraumatic, PERRLA, EOMI, Normocephalic Neck: Supple, No JVD, Negative Carotid Bruits Lungs: Clear to auscultation, Normal air movement Cardiovascular: Regular rate, No murmurs Abdomen: Bowel Sounds Present, Soft, Non Tender Extremities: No edema, Capillary Refill Less than 3 Seconds Skin: No rashes, No breakdown Musculoskeletal: No Tenderness to Palpation of Joints or Extremities, - - left hand dressed in appropriate dressing Neurological: Cranial nerves II-XII grossly intact Psych/Mental Status: Normal Affect, Appropriate, Alert and oriented to time, place, person, mood and affect Vital Signs Temp Pulse Resp BP Pulse Ox 98.0 F 84 18 134/71 H 97 02/12/19 11:36 02/12/19 11:36 02/12/19 11:36 02/12/19 11:36 02/12/19 11:36 Oxygen Flow Rate (L/min) 2 Oxygen Delivery Method Room Air Weight: 140 lb 3.424 oz Body Mass Index (BMI) 17.3 Finger Stick Blood Glucose 212 Intake and Output for Last 24 Hours 02/10/19 02/11/19 02/12/19 23:59 23:59 23:59 Intake Total 1834 / 1834 1666 / 1666 1152 / 1152 Output Total 1475 / 1475 1000 / 1000 2450 / 2450 Balance 359 / 359 666 / 666 -1298 / -1298 Microbiology Past 72 Hours 02/07/19 10:35 Blood Culture - Final Blood Culture (Wb) - Arm Left Staphylococcus aureus 02/10/19 13:50 Blood Culture - Preliminary Blood Culture (Wb) - Left Forearm No growth in 48 hours. 02/10/19 13:05 Blood Culture - Preliminary Blood Culture (Wb) - Anticubital Left No growth in 48 hours. 02/10/19 10:01 Gram Stain - Final Tissue - Other Wound Culture - Final Staphylococcus aureus 02/04/19 12:00 Blood Culture - Final Blood Culture (Wb) - Arm Right Staphylococcus aureus 02/09/19 09:44 Blood Culture - Preliminary Blood Culture (Wb) - Left Forearm No growth in 48 hours. 02/06/19 10:24 Blood Culture - Final Blood Culture (Wb) - Left Forearm Staphylococcus aureus 02/05/19 18:09 Blood Culture - Final Blood Culture (Wb) - Right Forearm Staphylococcus aureus 02/06/19 14:55 Acid Fast Bacilli Smear - Final Tissue - Hand Acid Fast Bacilli Culture - Final Fungal Culture - Final Fungal Smear - Final 02/06/19 14:55 Gram Stain - Final Tissue - Hand Wound Culture - Final Staphylococcus aureus Anaerobic Culture - Final No anaerobic bacteria isolated. 02/08/19 12:00 Blood Culture - Preliminary Blood Culture (Wb) - Arm Left Staphylococcus aureus Laboratory Tests Past 24 Hrs 02/12/19 02/12/19 12:10 12:10 WBC 11.6 H RBC 2.80 L Hgb 8.9 L Hct 26.1 L MCV 93.2 MCH 31.8 MCHC 34.1 RDW 12.6 RDW Differential 40.7 Plt Count 374 MPV 8.5 Sodium 134 L Potassium 4.1 Chloride 105 Carbon Dioxide 26.0 Anion Gap 3 L BUN 20 H Creatinine 0.75 Estim Creat Clear Calc 103.64 Est GFR (MDRD) Af Amer 141 Est GFR (MDRD) Non-Af 116 BUN/Creatinine Ratio 26.8 H Glucose 282 H Calcium 8.0 L POC Glucose 02/12/19 02/12/19 02/11/19 11:44 06:35 21:31 POC Glucose 324 H 307 H 95 02/11/19 17:24 POC Glucose 156 H Medical Necessity - Tobacco Use Smoking Status: Former smoker Tobacco Use: Non-smoker Assessment/Plan All Active Problems (Last Reviewed 02/01/19 @ 08:28 by Nan Saucedo DO) Necrotizing soft tissue infection (Acute) Abscess of dorsum of left hand (Acute) Abscess of bursa, left hand (Acute) Abscess of thumb, left (Acute) Suppurative tenosynovitis of flexor tendon of left hand (Acute) Sepsis (Acute) Cellulitis (Acute) Dehydration (Acute) Hypokalemia (Acute) MSSA bacteremia (Acute) Knee effusion, right (Acute) Knee pain, right (Acute) Acute pancreatitis (Resolved) Gastroenteritis (Resolved) 1. Acute sepsis with bacteremia 2/2 Cellulitis / necrotic LUE infections, MSSA, with associated MV endocarditis -Continue Ancef and Clinda per ID -Blood cx 02/10 NTD -WBCs improving further -Possibly further washout with Dr. Rankin 2. Multiple bilateral cavitary lung lesion - 2/2 septic emboli, pulm following, repeat CT 6-8 weeks 3. Anemia with hemoccult + stool - s/p EGD/Colon with Dr. Fletcher. Nonbleeding internal hemorrhoids. Continue PO iron 4. R knee effusion 2/2 reactive arthritis - Dr. Marroquin following, knee aspiration done. O/P F/U. -add ice pack today as he has more pain here. Reconsult Dr. Marroquin for another aspiration if the swelling grows again. 5. Chronic Hep C - follow up with ID as outpatient 6. T2DM - adjust insulins, start mealtime and back off lantus dose, continue to titrate to response, and cover with SSI 7. Severe protein calorie malnutrition-nutrition consult 8. Hyperlipidemia-statin 9. Hypertension-stable 10. Chronic back pain-MRI done, degenerative changes, no discitis or osteomyelitis. DVT prophylaxis-Lovenox Discharge planning: PTOT, SNF placement. This patient was seen by Carson Medina PA-C under the supervision of Doctor Angeles. <Delmi Angeles E - Last Filed: 02/12/19 13:24> - Physical Exam Vital Signs Temp Pulse Resp BP Pulse Ox 98.0 F 84 18 134/71 H 97 02/12/19 11:36 02/12/19 11:36 02/12/19 11:36 02/12/19 11:36 02/12/19 11:36 Oxygen Flow Rate (L/min) 2 Oxygen Delivery Method Room Air Weight: 140 lb 3.424 oz Body Mass Index (BMI) 17.3 Finger Stick Blood Glucose 212 Intake and Output for Last 24 Hours 02/10/19 02/11/1919 23:59 23:59 23:59 Intake Total 1834 / 1834 1666 / 1666 1152 / 1152 Output Total 1475 / 1475 1000 / 1000 2450 / 2450 Balance 359 / 359 666 / 666 -1298 / -1298 Microbiology Past 72 Hours 02/07/19 10:35 Blood Culture - Final Blood Culture (Wb) - Arm Left Staphylococcus aureus 02/10/19 13:50 Blood Culture - Preliminary Blood Culture (Wb) - Left Forearm No growth in 48 hours. 02/10/19 13:05 Blood Culture - Preliminary Blood Culture (Wb) - Anticubital Left No growth in 48 hours. 02/10/19 10:01 Gram Stain - Final Tissue - Other Wound Culture - Final Staphylococcus aureus 02/04/19 12:00 Blood Culture - Final Blood Culture (Wb) - Arm Right Staphylococcus aureus 02/09/19 09:44 Blood Culture - Preliminary Blood Culture (Wb) - Left Forearm No growth in 48 hours. 02/06/19 10:24 Blood Culture - Final Blood Culture (Wb) - Left Forearm Staphylococcus aureus 02/05/19 18:09 Blood Culture - Final Blood Culture (Wb) - Right Forearm Staphylococcus aureus 02/06/19 14:55 Acid Fast Bacilli Smear - Final Tissue - Hand Acid Fast Bacilli Culture - Final Fungal Culture - Final Fungal Smear - Final 02/06/19 14:55 Gram Stain - Final Tissue - Hand Wound Culture - Final Staphylococcus aureus Anaerobic Culture - Final No anaerobic bacteria isolated. 02/08/19 12:00 Blood Culture - Preliminary Blood Culture (Wb) - Arm Left Staphylococcus aureus Laboratory Tests Past 24 Hrs 02/12/19 02/12/19 12:10 12:10 WBC 11.6 H RBC 2.80 L Hgb 8.9 L Hct 26.1 L MCV 93.2 MCH 31.8 MCHC 34.1 RDW 12.6 RDW Differential 40.7 Plt Count 374 MPV 8.5 Sodium 134 L Potassium 4.1 Chloride 105 Carbon Dioxide 26.0 Anion Gap 3 L BUN 20 H Creatinine 0.75 Estim Creat Clear Calc 103.64 Est GFR (MDRD) Af Amer 141 Est GFR (MDRD) Non-Af 116 BUN/Creatinine Ratio 26.8 H Glucose 282 H Calcium 8.0 L POC Glucose 02/12/19 02/12/19 02/11/19 11:44 06:35 21:31 POC Glucose 324 H 307 H 95 02/11/19 17:24 POC Glucose 156 H Assessment/Plan Hospitalist note: I am seeing this patient in conjunction with Carson Medina. I independently seen and examined the patient. Progress note above and laboratory data reviewed and I concur with the above treatment plan. Today, patient complains of increasing left hand pain and requesting pain medication again. He has been afebrile, hemodynamically stable. - Physical Exam General: Alert, Oriented x3, Cooperative, No apparent distress. HEENT: Atraumatic, PERRLA, EOMI. Neck: Supple, No JVD, Negative Carotid Bruits, Trachea Midline, Thyroid Normal. Lungs: Clear to auscultation, Normal air movement, No rhonchi, No wheeze, No rales. Cardiovascular: Regular rate, Regular Rhythm, Normal S1, Normal S2, PMI Normal. Abdomen: Bowel Sounds Present, Soft, Non Tender, Non-Distended, No Hepato-splenomegaly. Extremities: No clubbing, No cyanosis, No edema Skin: No rashes, left hand wound Neurological: Neuro grossly intact Vital Signs are stable. Assessment and plan: #1 MSSA left hand cellulitis/necrotic infection: Status post initial and repeat repeat incision and drainage. Remained on IV cefazolin only. He has been afebrile, white blood cell count is trending down. Repeat blood culture on February 10, 2019 revealed no growth in 48 hours. Plan to continue same treatment, awaiting infectious disease recommendations tomorrow. #2 mitral Valve MSSA endocarditis: Remained on IV cefazolin. Infectious disease on the case, plan as above. Repeat blood culture on February 10 revealed no growth in 48 hours9. Plan to continue same treatment. #3 Persistent MSSA bacteremia: Source is the left hand necrotic wound infection/cellulitis. Repeat culture from 08 February still positive. Repeat blood cultures on February 10 showed no growth in 48 hours as above. Plan as above. #4 septic emboli of the lungs: On IV antibiotics as above, pulmonology on the case, plan for repeat CT scan in 6-8 weeks after antibiotics. #5 normocytic anemia: With positive Hemoccult blood. Upper EGD and colonoscopy showed no evidence of active bleeding. Today's hemoglobin is 8.9 g/dL, stable compared to yesterday. Plan to transfuse if hemoglobin came down below 8 g/dL. Continue iron supplement. #6 other chronic medical problems: Stable, continue current medications as above. This note was generated with [employer] dictation software. It may contain incorrect words, spelling, and punctuation that were not noted in checking the note before signing. Code Visit Inpatient E&M: 28355 Subs Hosp L2
[2019-02-12 16:55] LABS: Bedside Glucose 141 mg/dL (70-110)
[2019-02-12] MEDS: Atorvastatin Calcium 40 MG Tablet PO (21:34)
[2019-02-12 23:51] LABS: Bedside Glucose 302 mg/dL (70-110)
[2019-02-13] VITALS (12 sets, daily range): BP systolic 100–122; BP diastolic 61–66; PULSE 70–99; RESP 16–18; TEMP 36.6–36.9; O2SAT 97–99
[2019-02-13] MEDS: HYDROmorphone 2 MG TABLET 4 MG PO (01:36)
[2019-02-13] MEDS: HYDROmorphone 1 MG/ML Syringe IV (04:47)
[2019-02-13] MEDS: 0.9% NaCl Peripheral Flush Adult/Peds IV ×3 (04:47→23:32)
[2019-02-13] MEDS: Cefazolin 2 GM in 0.9% Normal Saline 100 ML IV ×3 (06:43→23:22)
[2019-02-13 06:55] LABS: Bedside Glucose 286 mg/dL (70-110)
[2019-02-13 07:14] LABS: Absolute Lymphocyte Count 1.61 X10^3/ul (0.83-4.51); Absolute Neutrophil Count 7.8 X10^3/uL (2.0-7.7); Basophil# 0.03 X10^3/uL; Basophil% 0.3 % (0-1); Eosinophil# 0.07 X10^3/uL; Eosinophils% 0.6 % (0-5); Hematocrit 24.9 % (40-54); Hemoglobin 8.5 g/dl (13.0-16.5); Lymphocyte # 1.61 X10^3/ul (4.0); Lymphocyte % 14.9 % (19-41); Mean Corp Hgb Conc 34.1 g/gl (32-36); Mean Corpuscular Hgb 31.8 pg (27.0-32.0); Mean Corpuscular Volume 93.3 fL (80-94); Mean Platelet Vol. 8.7 fl (6.2-12.0); Monocyte# 1.01 X10^3/uL; Monocyte% 9.4 % (0-10); Neutrophil # 7.84 X10^3/uL (2.7-7.7); Neutrophil % 72.7 % (47-70); Platelet Count 322 K/mm3 (150-450); RBC Distribution Width CV 13.3 % (11.6-14.6); RBC Distribution Width SD 44.5 fl (35.1-43.9); Red Blood Count 2.67 M/mm3 (4.6-6.2); White Blood Count 10.8 K/mm3 (4.4-11.0)
[2019-02-13 07:18] LABS: Differential Indicated SCAN CRITERIA MET; POSITIVE COUNT YES; POSITIVE DIFFERENTIAL NO; POSITIVE MORPHOLOGY YES
[2019-02-13] MEDS: Ketorolac 15 MG/ML Vial IV (08:17)
[2019-02-13] MEDS: diazePAM 5 MG Tablet PO (08:18)
[2019-02-13] MEDS: Lisinopril 20 MG Tablet PO (08:20)
[2019-02-13] MEDS: Metoprolol Tartrate 25 MG Tablet PO ×2 (08:20→23:23)
[2019-02-13] MEDS: Gabapentin 300 MG Capsule PO ×3 (08:20→17:58)
[2019-02-13] MEDS: Iron Polysaccharide Complex 150 MG CAPSULE PO (08:20)
[2019-02-13] MEDS: Pantoprazole Sodium 40 MG Tablet PO ×2 (08:21→23:23)
[2019-02-13] MEDS: Magnesium Oxide 400 MG Tablet PO (08:21)
[2019-02-13] MEDS: NIFEdipine 30 MG Tablet PO (08:21)
[2019-02-13] MEDS: Sertraline 50 MG Tablet PO (08:21)
[2019-02-13] MEDS: Enoxaparin 40 MG/0.4 ML Syringe SC (08:23)
[2019-02-13] MEDS: Insulin Lispro 100 UNIT/ML INSULN.PEN SC ×3 (08:27→17:58)
[2019-02-13] MEDS: Insulin Lispro 100 UNIT/ML INSULN.PEN 6 UNIT SC ×2 (08:28→11:37)
--- NOTE | 2019-02-13 10:28 | PCM.PROGNOTE ---
Subjective: The patient is a 53-year-old male who has now been in the hospital since 02/01/2019. He was admitted to the hospital initially with sepsis secondary to cellulitis of the left hand. He has since been diagnosed with septic emboli to the lungs, endocarditis, reactive arthritis of the right knee. He is being followed by Dr. Cherry from infectious disease. Blood, urine, sputum cultures are all positive for MSSA. Culture of the right knee aspirate had no growth. Refused physical therapy on 02/11/2019 because he was eating breakfast while sitting in bed. He declined to get up to the chair. He refused to do more than arm exercises on 02/12/2019. Upper endoscopy showed normal esophagus, normal stomach, normal first and second portion of the duodenum. Biopsy was negative for H. pylori and positive for mild gastritis. Colonoscopy showed 1 5-10 mm polyp in the cecum which was removed with a hot snare. He also has internal hemorrhoids. Biopsy was positive for tubular adenoma. Blood cultures from 02/10/2019 have no growth in 48 hours. Clindamycin was stopped on 02/10/2019. He remains on cefazolin. - Physical Exam General: Alert, Oriented x3, Non-Cooperative HEENT: Atraumatic Lungs: Clear to auscultation, Diminished Cardiovascular: Regular rate, Regular Rhythm, Normal S1, Normal S2, No murmurs, No rub noted, No Gallop Abdomen: Bowel Sounds Present, Soft, Non-Distended, - - no guarding.....has not been c/o abdominal pain since the PPI was started Extremities: No cyanosis, - - The left hand is dressed....I did not unwrap. Please see Dr. Rankin's dictation for a current description of the wound Neurological: Cranial nerves II-XII grossly intact, Neuro grossly intact Psych/Mental Status: - - argumentative and irrational at times.......when he does not get what he wants he starts refusing tx and manipulating the staff, playing one person off the other. Very nice to you when he wants something Vital Signs Temp Pulse Resp BP Pulse Ox 98.3 F 76 16 122/66 H 99 02/13/19 09:47 02/13/19 09:47 02/13/19 09:47 02/13/19 09:47 02/13/19 09:47 Oxygen Flow Rate (L/min) 2 Oxygen Delivery Method Room Air Weight: 136 lb 3.931 oz Body Mass Index (BMI) 17.3 Finger Stick Blood Glucose 212 Intake and Output for Last 24 Hours 02/11/19 02/12/19 02/13/19 23:59 23:59 23:59 Intake Total 1666 / 1666 1549 / 1549 480 / 480 Output Total 1000 / 1000 2450 / 2450 Balance 666 / 666 -901 / -901 480 / 480 Microbiology Past 72 Hours 02/07/19 10:35 Blood Culture - Final Blood Culture (Wb) - Arm Left Staphylococcus aureus 02/10/19 13:50 Blood Culture - Preliminary Blood Culture (Wb) - Left Forearm No growth in 48 hours. 02/10/19 13:05 Blood Culture - Preliminary Blood Culture (Wb) - Anticubital Left No growth in 48 hours. 02/10/19 10:01 Gram Stain - Final Tissue - Other Wound Culture - Final Staphylococcus aureus 02/04/19 12:00 Blood Culture - Final Blood Culture (Wb) - Arm Right Staphylococcus aureus 02/09/19 09:44 Blood Culture - Preliminary Blood Culture (Wb) - Left Forearm No growth in 48 hours. 02/06/19 10:24 Blood Culture - Final Blood Culture (Wb) - Left Forearm Staphylococcus aureus 02/05/19 18:09 Blood Culture - Final Blood Culture (Wb) - Right Forearm Staphylococcus aureus 02/06/19 14:55 Acid Fast Bacilli Smear - Final Tissue - Hand Acid Fast Bacilli Culture - Final Fungal Culture - Final Fungal Smear - Final 02/06/19 14:55 Gram Stain - Final Tissue - Hand Wound Culture - Final Staphylococcus aureus Anaerobic Culture - Final No anaerobic bacteria isolated. 02/08/19 12:00 Blood Culture - Preliminary Blood Culture (Wb) - Arm Left Staphylococcus aureus Laboratory Tests Past 24 Hrs 02/12/19 02/12/19 02/13/19 12:10 12:10 05:25 WBC 11.6 H 10.8 RBC 2.80 L 2.67 L Hgb 8.9 L 8.5 L Hct 26.1 L 24.9 L MCV 93.2 93.3 MCH 31.8 31.8 MCHC 34.1 34.1 RDW 12.6 13.3 RDW Differential 40.7 44.5 H Plt Count 374 322 MPV 8.5 8.7 Immature Gran % (Auto) 2.100 H Neut % (Auto) 72.7 H Lymph % (Auto) 14.9 L [place] % (Auto) 9.4 Eos % (Auto) 0.6 Baso % (Auto) 0.3 Absolute Neuts (auto) 7.8 H Absolute Lymphs (auto) 1.61 Total Counted Not Reportable Diff Path Review May foll Sodium 134 L Potassium 4.1 Chloride 105 Carbon Dioxide 26.0 Anion Gap 3 L BUN 20 H Creatinine 0.75 Estim Creat Clear Calc 103.64 Est GFR (MDRD) Af Amer 141 Est GFR (MDRD) Non-Af 116 BUN/Creatinine Ratio 26.8 H Glucose 282 H Calcium 8.0 L POC Glucose 02/13/19 02/12/19 02/12/19 06:47 21:18 16:35 POC Glucose 286 H 302 H 141 H 02/12/19 11:44 POC Glucose 324 H Medical Necessity - Tobacco Use Smoking Status: Former smoker Tobacco Use: Non-smoker Assessment/Plan All Active Problems (Last Reviewed 02/01/19 @ 08:28 by Nan Saucedo DO) Necrotizing soft tissue infection (Acute) Abscess of dorsum of left hand (Acute) Abscess of bursa, left hand (Acute) Abscess of thumb, left (Acute) Suppurative tenosynovitis of flexor tendon of left hand (Acute) Sepsis (Acute) Cellulitis (Acute) Dehydration (Acute) Hypokalemia (Acute) MSSA bacteremia (Acute) Knee effusion, right (Acute) Knee pain, right (Acute) Acute pancreatitis (Resolved) Gastroenteritis (Resolved) Impressions 1. Sepsis secondary to cellulitis of the left hand with bacteremia secondary to methicillin sensitive staph aureus. BC on 02/02 still + for MSSA. If the culture from today is still + will likely need a ALIS. 2. necrotic infection with abscess of the 3. Controlled diabetes mellitus type 2 4. Pseudohyponatremia secondary to markedly increased blood sugar 5. Hypokalemia-resolved 6. Abdominal pain associated with nausea and sometimes emesis - better since started on a PPI 7. Anemia with heme positive stool 8. Hypomagnesemia 9. Malnutrition-severe 10. Dehydration - resolved 11. Hyperlipidemia 12. Hepatitis C antibody positive 13. Unintentional weight loss 14. Chronic back pain with lumbar canal stenosis at L4-5 and L5-S1 secondary to disc disease and facet arthropathy 15. Indeterminate cortical low attenuation change in the right mid cortex not seen on previous examination of 11/14/2018. The area measures 1.6 x 1.5 x 1.4 cm and is not a simple cyst. Malignancy cannot be ruled out at this time...Will need a bx going forward once infection is cleared. ? whether it could be an abscess? 16. Former smoker 17. right knee effusion-secondary to reactive arthritis 18. Multiple bilateral pulmonary cavitary lesions-due to septic emboli -sputum culture is positive for methicillin sensitive staph aureus 19. ST with a normal temp - EKG without evidence of ischemia. TSH normal at admission 20. 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 Code Visit Inpatient E&M: 38035 Subs Hosp L2
--- NOTE | 2019-02-13 10:41 | CASEMGMT ---
Addendum entered by Arely Licona 02/13/19 13:17: MATTHEW faxed today's PT/OT notes to [facility]. Patient still refused OT, but did work with PT. Arely VILLARREAL PATIENT RELATIONS MANAGER Original Note: MATTHEW faxed updates to [facility] and also called Soraya. MATTHEW told Soraya that patient has been refusing therapy. MATTHEW explained we have talked with patient. MATTHEW told her that he will be on IV antibiotics Q8 and he will have dressing changes so hopefully that will help with getting approval. Await pre-cert for [facility]. Arely VILLARREAL PATIENT RELATIONS MANAGER
--- NOTE | 2019-02-13 10:48 | PN.ID_ITS ---
Patient Problems: Active and Suspected Problems (Last Reviewed 02/01/19 @ 08:28 by Nan Saucedo DO) Sepsis (Acute) Cellulitis (Acute) Dehydration (Acute) Hypokalemia (Acute) MSSA bacteremia (Acute) Knee effusion, right (Acute) Knee pain, right (Acute) Subjective: Feeling ok, no fever, knee much less sore, no fever - Physical Exam General: Alert, Cooperative, No apparent distress Lungs: Clear to auscultation, Normal air movement Cardiovascular: Regular rate, Regular Rhythm Abdomen: Soft, Non Tender, Non-Distended Skin: Ulcer/ Wound - L hand wrapped Vital Signs Temp Pulse Resp BP Pulse Ox 98.3 F 76 16 122/66 H 99 02/13/19 09:47 02/13/19 09:47 02/13/19 09:47 02/13/19 09:47 02/13/19 09:47 Oxygen Flow Rate (L/min) 2 Oxygen Delivery Method Room Air Weight: 61.8 kg Body Mass Index (BMI) 17.3 Finger Stick Blood Glucose 212 Intake and Output for Last 24 Hours 02/11/19 02/12/19 02/13/19 23:59 23:59 23:59 Intake Total 1666 / 1666 1549 / 1549 480 / 480 Output Total 1000 / 1000 2450 / 2450 Balance 666 / 666 -901 / -901 480 / 480 Microbiology Past 72 Hours 02/07/19 10:35 Blood Culture - Final Blood Culture (Wb) - Arm Left Staphylococcus aureus 02/10/19 13:50 Blood Culture - Preliminary Blood Culture (Wb) - Left Forearm No growth in 48 hours. 02/10/19 13:05 Blood Culture - Preliminary Blood Culture (Wb) - Anticubital Left No growth in 48 hours. 02/10/19 10:01 Gram Stain - Final Tissue - Other Wound Culture - Final Staphylococcus aureus 02/04/19 12:00 Blood Culture - Final Blood Culture (Wb) - Arm Right Staphylococcus aureus 02/09/19 09:44 Blood Culture - Preliminary Blood Culture (Wb) - Left Forearm No growth in 48 hours. 02/06/19 10:24 Blood Culture - Final Blood Culture (Wb) - Left Forearm Staphylococcus aureus 02/05/19 18:09 Blood Culture - Final Blood Culture (Wb) - Right Forearm Staphylococcus aureus 02/06/19 14:55 Acid Fast Bacilli Smear - Final Tissue - Hand Acid Fast Bacilli Culture - Final Fungal Culture - Final Fungal Smear - Final 02/06/19 14:55 Gram Stain - Final Tissue - Hand Wound Culture - Final Staphylococcus aureus Anaerobic Culture - Final No anaerobic bacteria isolated. 02/08/19 12:00 Blood Culture - Preliminary Blood Culture (Wb) - Arm Left Staphylococcus aureus Laboratory Tests Past 24 Hrs 02/12/19 02/12/19 02/13/19 12:10 12:10 05:25 WBC 11.6 H 10.8 RBC 2.80 L 2.67 L Hgb 8.9 L 8.5 L Hct 26.1 L 24.9 L MCV 93.2 93.3 MCH 31.8 31.8 MCHC 34.1 34.1 RDW 12.6 13.3 RDW Differential 40.7 44.5 H Plt Count 374 322 MPV 8.5 8.7 Immature Gran % (Auto) 2.100 H Neut % (Auto) 72.7 H Lymph % (Auto) 14.9 L [place] % (Auto) 9.4 Eos % (Auto) 0.6 Baso % (Auto) 0.3 Absolute Neuts (auto) 7.8 H Absolute Lymphs (auto) 1.61 Total Counted Not Reportable Diff Path Review May foll Sodium 134 L Potassium 4.1 Chloride 105 Carbon Dioxide 26.0 Anion Gap 3 L BUN 20 H Creatinine 0.75 Estim Creat Clear Calc 103.64 Est GFR (MDRD) Af Amer 141 Est GFR (MDRD) Non-Af 116 BUN/Creatinine Ratio 26.8 H Glucose 282 H Calcium 8.0 L POC Glucose 02/13/19 02/12/19 02/12/19 06:47 21:18 16:35 POC Glucose 286 H 302 H 141 H 02/12/19 11:44 POC Glucose 324 H Medical Necessity - Tobacco Use Smoking Status: Former smoker Tobacco Use: Non-smoker Route of nutrition/ use of supplements: [] Nutritional Intake: [] IV Site: [] Canas Catheter: [] - Assessment/Plan Antibiotics: [] Assessment/Plan: [] Active and Suspected Problems (Last Reviewed 02/01/19 @ 08:28 by Nan Saucedo DO) Sepsis (Acute) Cellulitis (Acute) Dehydration (Acute) Hypokalemia (Acute) severe sepsis (leukocytosis, tachycardia, lactic acidosis) with 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 Concern for R sided endocarditis given suspected pulm emboli. - repeat bcx clear since 02/10/19 - TTE showed no veg. ALIS with mitral veg. - Taken to OR 02/[address] Rankin with diffuse abscess and necrosis in his hand. Back to OR 02/06 and again 02/10. - knee aspiration by Dr. Marroquin consistent with reactive arthritis; knee much improved now - has chronic lower back pain and spine tenderness. MRI 02/02 showed no new sign of infection. Last study was 10/2018. - continue cefazolin. Added clinda for anti-toxin effect. CT did show gas in the tissues. - ok for picc placement; midline to be removed. Cavitary lung lesion - Low suspicion for TB. No hemoptysis, some weight loss. Reports neg PPD in the past. - given his history, imaging, (+) mSSA bacteremia, and that these lung changes are new compared to CT on 01/25, removed d/c neg airflow isolation chronic hep C - neg for HIV and hep B in 10/2018 - HCV pcr was 8 million in 05/2018. Now 7.5 million. Will need outpt eval for treatment. - neg tox screen - denies IVDU Will follow, d/w counseling case manager. Wrote rx for cefazolin, stop date 03/24/19 with weekly bmp, cbc, and esr.
[2019-02-13 11:51] LABS: Bedside Glucose 225 mg/dL (70-110)
[2019-02-13] MEDS: HYDROmorphone 2 MG TABLET 6 MG PO ×3 (12:33→21:00)
[2019-02-13 12:58] LABS: Pathologist Review Reviewed
[2019-02-13 13:04] LABS: Pathologist Review Reviewed
[2019-02-13 13:06] LABS: Pathologist Review Reviewed
--- NOTE | 2019-02-13 13:46 | PCM.PROGNOTE ---
Patient Problems: Active and Suspected Problems (Last Reviewed 02/01/19 @ 08:28 by Nan Saucedo DO) Sepsis (Acute) Cellulitis (Acute) Dehydration (Acute) Hypokalemia (Acute) MSSA bacteremia (Acute) Knee effusion, right (Acute) Knee pain, right (Acute) Subjective: Pt very agitated this morning. He is unhappy with the nursing staff. He has continued to refuse PTOT for several days, despite that we have discussed the need to do this daily. He denies that he is refusing, however it is well documented that he is refusing. He desires more pain medication. Explained that we are preparing him for discharge and he cannot have IV dilaudid as an outpatient, and as he has no issue swallowing pills there is no reason that he should require IV dilaudid. Per nursing he has had multiple episodes where he was too drowsy to receive prn pain medications. He attempted to bargain for one additional dose prior to DC. I explained that I did not feel that this was appropriate. He states therapy wanted him to get out of bed and attempt to walk, but states that he cannot walk. He has been walking to the bedside commode without issues. No fever or chills. Swelling in the right knee is improved. - Physical Exam General: Alert, Oriented x3, Cooperative, - - frail HEENT: Atraumatic, PERRLA, EOMI, Normocephalic Neck: Supple, No JVD, Negative Carotid Bruits Lungs: Clear to auscultation, Normal air movement Cardiovascular: Regular rate, No murmurs Abdomen: Bowel Sounds Present, Soft, Non Tender Extremities: No edema, Capillary Refill Less than 3 Seconds Skin: No rashes, No breakdown Musculoskeletal: No Tenderness to Palpation of Joints or Extremities Neurological: Cranial nerves II-XII grossly intact Psych/Mental Status: Agitated Vital Signs Temp Pulse Resp BP Pulse Ox 98.3 F 72 16 122/66 H 99 02/13/19 09:47 02/13/19 12:16 02/13/19 09:47 02/13/19 09:47 02/13/19 09:47 Oxygen Flow Rate (L/min) 2 Oxygen Delivery Method Room Air Weight: 136 lb 3.931 oz Body Mass Index (BMI) 17.3 Finger Stick Blood Glucose 212 Intake and Output for Last 24 Hours 02/11/19 02/12/19 02/13/19 23:59 23:59 23:59 Intake Total 1666 / 1666 1549 / 1549 1060 / 1060 Output Total 1000 / 1000 2450 / 2450 Balance 666 / 666 -901 / -901 1060 / 1060 Microbiology Past 72 Hours 02/10/19 10:01 Gram Stain - Final Tissue - Other Wound Culture - Final Staphylococcus aureus Anaerobic Culture - Final No anaerobic bacteria isolated. 02/07/19 10:35 Blood Culture - Final Blood Culture (Wb) - Arm Left Staphylococcus aureus 02/10/19 13:50 Blood Culture - Preliminary Blood Culture (Wb) - Left Forearm No growth in 48 hours. 02/10/19 13:05 Blood Culture - Preliminary Blood Culture (Wb) - Anticubital Left No growth in 48 hours. 02/04/19 12:00 Blood Culture - Final Blood Culture (Wb) - Arm Right Staphylococcus aureus 02/09/19 09:44 Blood Culture - Preliminary Blood Culture (Wb) - Left Forearm No growth in 48 hours. 02/06/19 10:24 Blood Culture - Final Blood Culture (Wb) - Left Forearm Staphylococcus aureus 02/05/19 18:09 Blood Culture - Final Blood Culture (Wb) - Right Forearm Staphylococcus aureus 02/06/19 14:55 Acid Fast Bacilli Smear - Final Tissue - Hand Acid Fast Bacilli Culture - Final Fungal Culture - Final Fungal Smear - Final Laboratory Tests Past 24 Hrs 02/10/19 02/11/19 02/13/19 05:28 05:30 05:25 WBC 10.8 RBC 2.67 L Hgb 8.5 L Hct 24.9 L MCV 93.3 MCH 31.8 MCHC 34.1 RDW 13.3 RDW Differential 44.5 H Plt Count 322 MPV 8.7 Immature Gran % (Auto) 2.100 H Neut % (Auto) 72.7 H Lymph % (Auto) 14.9 L [place] % (Auto) 9.4 Eos % (Auto) 0.6 Baso % (Auto) 0.3 Absolute Neuts (auto) 7.8 H Absolute Lymphs (auto) 1.61 Total Counted Not Reportable Diff Path Review Reviewed Reviewed Reviewed POC Glucose 02/13/19 02/13/19 02/12/19 11:35 06:47 21:18 POC Glucose 225 H 286 H 302 H 02/12/19 16:35 POC Glucose 141 H Medical Necessity - Tobacco Use Smoking Status: Former smoker Tobacco Use: Non-smoker Assessment/Plan All Active Problems (Last Reviewed 02/01/19 @ 08:28 by Nan Saucedo, ) Necrotizing soft tissue infection (Acute) Abscess of dorsum of left hand (Acute) Abscess of bursa, left hand (Acute) Abscess of thumb, left (Acute) Suppurative tenosynovitis of flexor tendon of left hand (Acute) Sepsis (Acute) Cellulitis (Acute) Dehydration (Acute) Hypokalemia (Acute) MSSA bacteremia (Acute) Knee effusion, right (Acute) Knee pain, right (Acute) Acute pancreatitis (Resolved) Gastroenteritis (Resolved) 1. Acute sepsis with bacteremia 2/2 Cellulitis / necrotic LUE infections, MSSA, with associated MV endocarditis -Continue Ancef and Clinda per ID -Blood cx 02/10 NTD -WBCs improving further -Possibly further washout with Dr. Rankin -If patient does not qualify for SNF due to his poor participation in physical/occupational therapy, he can be switched to once daily rocephin and come to the infusion center for treatment. 2. Multiple bilateral cavitary lung lesion - 2/2 septic emboli, pulm following, repeat CT 6-8 weeks 3. Anemia with hemoccult + stool - s/p EGD/Colon with Dr. Fletcher. Nonbleeding internal hemorrhoids. Continue PO iron 4. R knee effusion 2/2 reactive arthritis - Dr. Marroquin following, knee aspiration done. O/P F/U. -this continues to decrease in size. -prn ice pack 5. Chronic Hep C - follow up with ID as outpatient 6. T2DM - i continue to titrate these daily, his diet is inconsistent making this difficult. For example the nurses informed me that one night he drank more than 10 milks at once. 7. Severe protein calorie malnutrition-nutrition consult 8. Hyperlipidemia-statin 9. Hypertension-stable 10. Chronic back pain-MRI done, degenerative changes, no discitis or osteomyelitis. DVT prophylaxis-Lovenox Discharge planning: SNF vs Home with o/p infusions. This patient was seen by Carson Medina PA-C under the supervision of Doctor Sheryl.
--- NOTE | 2019-02-13 13:54 | CASEMGMT ---
MATTHEW called Soraya at [facility] and made sure she received MATTHEW's fax this am and the one this afternoon. She said she did and they started the pre-cert. She anticipates they will hear tomorrow. MATTHEW to follow for d/c to [facility]. Arely VILLARREAL MSW
[2019-02-13 17:10] LABS: Bedside Glucose 84 mg/dL (70-110)
--- NOTE | 2019-02-13 21:11 | PCM.PN.SRG ---
Patient Problems: Active and Suspected Problems (Last Reviewed 02/01/19 @ 08:28 by Nan Saucedo DO) Sepsis (Acute) Cellulitis (Acute) Dehydration (Acute) Hypokalemia (Acute) MSSA bacteremia (Acute) Knee effusion, right (Acute) Knee pain, right (Acute) Subjective: Postop #11 and #7 and #3 Patient is resting comfortably. Having less pain in his left hand. It is more intermittent. He is using more po analgesia. Still needs IV analgesia for the dressing change. - Physical Exam General: Alert, Oriented x3 HEENT: PERRLA, EOMI Oral: Moist Mucosa Neck: Supple Abdomen: Soft, Non-Distended Skin: Ulcer/ Wound Neurological: Cranial nerves II-XII grossly intact Psych/Mental Status: Normal Affect, Appropriate Vital Signs Temp Pulse Resp BP Pulse Ox 97.9 F 70 18 116/64 98 02/13/19 16:00 02/13/19 19:00 02/13/19 16:00 02/13/19 16:00 02/13/19 16:00 Oxygen Flow Rate (L/min) 2 Oxygen Delivery Method Room Air Weight: 136 lb 3.931 oz Body Mass Index (BMI) 17.3 Finger Stick Blood Glucose 212 Intake and Output for Last 24 Hours 02/11/19 02/12/19 02/13/19 23:59 23:59 23:59 Intake Total 1666 / 1666 1549 / 1549 1540 / 1540 Output Total 1000 / 1000 2450 / 2450 Balance 666 / 666 -901 / -901 1540 / 1540 Microbiology Past 72 Hours 02/08/19 12:00 Blood Culture - Final Blood Culture (Wb) - Arm Left Staphylococcus aureus 02/10/19 10:01 Gram Stain - Final Tissue - Other Wound Culture - Final Staphylococcus aureus Anaerobic Culture - Final No anaerobic bacteria isolated. 02/07/19 10:35 Blood Culture - Final Blood Culture (Wb) - Arm Left Staphylococcus aureus 02/10/19 13:50 Blood Culture - Preliminary Blood Culture (Wb) - Left Forearm No growth in 48 hours. 02/10/19 13:05 Blood Culture - Preliminary Blood Culture (Wb) - Anticubital Left No growth in 48 hours. 02/04/19 12:00 Blood Culture - Final Blood Culture (Wb) - Arm Right Staphylococcus aureus 02/09/19 09:44 Blood Culture - Preliminary Blood Culture (Wb) - Left Forearm No growth in 48 hours. 02/06/19 10:24 Blood Culture - Final Blood Culture (Wb) - Left Forearm Staphylococcus aureus 02/05/19 18:09 Blood Culture - Final Blood Culture (Wb) - Right Forearm Staphylococcus aureus Laboratory Tests Past 24 Hrs 02/10/19 02/11/19 02/13/19 05:28 05:30 05:25 WBC 10.8 RBC 2.67 L Hgb 8.5 L Hct 24.9 L MCV 93.3 MCH 31.8 MCHC 34.1 RDW 13.3 RDW Differential 44.5 H Plt Count 322 MPV 8.7 Immature Gran % (Auto) 2.100 H Neut % (Auto) 72.7 H Lymph % (Auto) 14.[address] [place] % (Auto) 9.4 Eos % (Auto) 0.6 Baso % (Auto) 0.3 Absolute Neuts (auto) 7.8 H Absolute Lymphs (auto) 1.61 Total Counted Not Reportable Diff Path Review Reviewed Reviewed Reviewed POC Glucose 02/13/19 02/13/19 02/13/19 16:53 11:35 06:47 POC Glucose 84 225 H 286 H 02/12/19 21:18 POC Glucose 302 H Medical Necessity - Tobacco Use Smoking Status: Former smoker Tobacco Use: Non-smoker Assessment/Plan All Active Problems (Last Reviewed 02/01/19 @ 08:28 by Nan Saucedo DO) Necrotizing soft tissue infection (Acute) Abscess of dorsum of left hand (Acute) Abscess of bursa, left hand (Acute) Abscess of thumb, left (Acute) Suppurative tenosynovitis of flexor tendon of left hand (Acute) Sepsis (Acute) Cellulitis (Acute) Dehydration (Acute) Hypokalemia (Acute) MSSA bacteremia (Acute) Knee effusion, right (Acute) Knee pain, right (Acute) Acute pancreatitis (Resolved) Gastroenteritis (Resolved) 1. 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 2. Necrotizing diabetic abscess thenar eminence left palm extending through thenar muscles and first dorsal interosseous muscle. 3. Necrotizing diabetic abscess dorsum left hand at first webspace extending through first dorsal interosseous muscle and thenar muscles. 4. Suppurative flexor tenosynovitis. 5. Diabetes mellitus. 6. Sepsis. 7. s/p surgical preparation left thumb and thenar eminence and dorsum hand over first webspace with incision and drainage and excisional debridement complex necrotizing diabetic abscesses (33 cm2) and incision and drainage tendon sheath left thumb for suppurative flexor tenosynovitis and incision and drainage necrotizing diabetic abscess dorsum left thumb involving extensor tendon with tenosynovitis and incision and drainage necrotizing diabetic abscess thenar eminence left palm extending through thenar muscles (abductor pollicis brevis, flexor pollicis brevis, opponens pollicis, and adductor pollicis) and first dorsal interosseous muscle and incision and drainage necrotizing diabetic abscess first dorsal webspace left hand extending through first dorsal interosseous muscle and thenar muscles (abductor pollicis brevis, flexor pollicis brevis, opponens pollicis, and adductor pollicis). 8. Anemia of chronic disease, acute on chronic. 9. Early RSD, stable. Patient tolerated the Silver dressing change better today. He still needs IV analgesia for the dressing change. Concerns about early RSD have not progressed since starting Zoloft and Procardia XL. The increased Neurontin has been helpful. Swelling slowly resolving. Less than preop. No further pus seen in the wounds. With the severity of the infection, I anticipate the swelling will take several days to resolve. I irrigated the wounds with saline today. Some granulation tissue seen. More and more granulation is being seen. Operative culture shows Staphylococcus aureus thus far. Presently he is on Ancef and Cleocin. With the severity of the infection with pus diffuse throughout the thumb with suppurative flexor tenosynovitis and thenar space with extension to dorsum of hand, he will need IV antibiotics for 6 weeks. Infectious Diseases is on board for antibiotic management. Will evaluate the hand wounds closely. His WBC has decreased from 11.6 to 10.8. His temps have stabilized as he has been afebrile last several days. The WBC has finally decreased to within the normal range. The periodic incision and drainage and irrigation and excisional debridement procedures have been very helpful as they have stabilized the wound and helped to minimize the wound worsening to more areas of pus in the rest of the hand, wrist, and the distal forearm. No pus was seen at the last surgery but there was still some residual fat necrosis that was debrided. Extra incisions did not show any pus either so no progression seen from the thenar space and thumb area. He would benefit from another incision and drainage and irrigation and excisional debridement procedure which we will do tomorrow. Patient was informed of the risks and complications of the procedure including alternatives to surgery. These were discussed with the patient personally. Patient voices understanding and wishes to proceed. Some of the risks and complications that were discussed included but were not inclusive of failure to diagnose including symptom relief, pain, infection, numbness, stiffness, loss of digit, RSD (CRPS), need for further surgery, contracture, and wound healing problems. Keep left hand elevated. Patient will need aggressive OT for range of motion exercises, strengthening, and edema management after discharge to minimize stiffness. Patient is at high risk for residual stiffness in his left thumb and hand. Anticipate increased metabolic demands from the infection and the surgical wounds. Prealbumin was <3 Encourage nutritional supplementation with protein to help the healing process. With the complexity of the wound and the need for IV antibiotics, patient needs to go to an ECF. Evaluation in process. He has anemia of chronic disease, acute on chronic. His Hgb has drifted from 8.9 down to 8.5. There is no evidence of ongoing blood loss. He has some IV dilution. He is currently on Iron supplementation. There is no need for PRBC at this time. If it drifts below 8, then would transfuse.
[2019-02-13] MEDS: Atorvastatin Calcium 40 MG Tablet PO (23:23)
[2019-02-13] MEDS: Glucerna Shake 120 ML LIQUID PO (23:23)
[2019-02-13 23:46] LABS: Bedside Glucose 87 mg/dL (70-110)
[2019-02-14] VITALS (17 sets, daily range): BP systolic 91–185; BP diastolic 54–91; PULSE 68–83; RESP 14–18; TEMP 36.7–37.1; O2SAT 93–100; BMI 17.4
[2019-02-14] MEDS: HYDROmorphone 2 MG TABLET 6 MG PO ×4 (01:01→18:50)
[2019-02-14] MEDS: diazePAM 5 MG Tablet PO (02:19)
[2019-02-14] MEDS: 0.9% NaCl Peripheral Flush Adult/Peds IV ×4 (05:04→20:34)
[2019-02-14] MEDS: Cefazolin 2 GM in 0.9% Normal Saline 100 ML IV ×3 (05:04→20:28)
[2019-02-14 05:33] LABS: Hematocrit 24.8 % (40-54); Hemoglobin 8.4 g/dl (13.0-16.5); Mean Corp Hgb Conc 33.9 g/gl (32-36); Mean Corpuscular Hgb 31.7 pg (27.0-32.0); Mean Corpuscular Volume 93.6 fL (80-94); Mean Platelet Vol. 8.4 fl (6.2-12.0); Platelet Count 300 K/mm3 (150-450); RBC Distribution Width CV 13.3 % (11.6-14.6); Red Blood Count 2.65 M/mm3 (4.6-6.2); Scan Indicated on CBC? Y/N NO; White Blood Count 10.3 K/mm3 (4.4-11.0)
[2019-02-14 05:45] LABS: Anion Gap 4 (5-15); BUN 17 mg/dL (7-18); BUN/Creat Ratio 25.9 RATIO (10-20); Chloride 104 mmol/L (98-107); Creatinine, Serum 0.66 mg/dL (0.70-1.30); EST Glomerular Filtration Rate 135 mL/min (>60); Est Glom Filt Rate - Afr Amer 163 mL/min (>60); Estimated Creatinine Clearance 114.44 ml/min; Glucose 213 mg/dL (74-106); Potassium 4.2 mmol/L (3.5-5.1); Sodium Level 136 mmol/L (136-145)
[2019-02-14 07:01] LABS: Bedside Glucose 231 mg/dL (70-110)
[2019-02-14] MEDS: Lisinopril 20 MG Tablet PO (09:20)
[2019-02-14] MEDS: NIFEdipine 30 MG Tablet PO (09:21)
[2019-02-14] MEDS: Sertraline 50 MG Tablet PO (09:21)
[2019-02-14] MEDS: Metoprolol Tartrate 25 MG Tablet PO ×2 (09:21→20:28)
[2019-02-14] MEDS: Pantoprazole Sodium 40 MG Tablet PO ×2 (09:22→20:28)
[2019-02-14 12:00] LABS: Bedside Glucose 274 mg/dL (70-110)
--- NOTE | 2019-02-14 12:13 | CASEMGMT ---
Received call from Soraya and patient was approved to go to [facility]. MATTHEW told her it may not be today as he is going back to surgery for a wash out of his wound. MATTHEW notified patient, physician, and RN. Plan: [place] under skilled level of care on a convalescent stay. Arely VILLARREAL MSW
--- NOTE | 2019-02-14 13:28 | PCM.PROGNOTE ---
Patient Problems: Active and Suspected Problems (Last Reviewed 02/01/19 @ 08:28 by Nan Saucedo DO) Sepsis (Acute) Cellulitis (Acute) Dehydration (Acute) Hypokalemia (Acute) MSSA bacteremia (Acute) Knee effusion, right (Acute) Knee pain, right (Acute) Subjective: Asleep in bed NAD. Easily awoken. No new issues. Going for washout today. - Physical Exam General: Alert, Oriented x3, Cooperative HEENT: Atraumatic, PERRLA, EOMI, Normocephalic Neck: Supple, No JVD, Negative Carotid Bruits Lungs: Clear to auscultation, Normal air movement Cardiovascular: Regular rate, No murmurs Abdomen: Bowel Sounds Present, Soft, Non Tender Extremities: No edema, Capillary Refill Less than 3 Seconds Skin: No rashes, No breakdown Musculoskeletal: No Tenderness to Palpation of Joints or Extremities Neurological: Cranial nerves II-XII grossly intact Psych/Mental Status: Normal Affect, Appropriate, Alert and oriented to time, place, person, mood and affect Vital Signs Temp Pulse Resp BP Pulse Ox 98.0 F 69 15 113/67 100 02/14/19 09:17 02/14/19 11:02 02/14/19 09:17 02/14/19 09:17 02/14/19 09:17 Oxygen Flow Rate (L/min) 2 Oxygen Delivery Method Room Air Weight: 135 lb 9.349 oz Body Mass Index (BMI) 17.4 Finger Stick Blood Glucose 212 Intake and Output for Last 24 Hours 02/12/19 02/13/19 02/14/19 23:59 23:59 23:59 Intake Total 1549 / 1549 1785 / 1785 347 / 347 Output Total 2450 / 2450 Balance -901 / -901 1785 / 1785 347 / 347 Microbiology Past 72 Hours 02/09/19 09:44 Blood Culture - Final Blood Culture (Wb) - Left Forearm No growth in 5 days. 02/14/19 05:46 C. difficile DNA Amplification - Final Stool 02/08/19 12:00 Blood Culture - Final Blood Culture (Wb) - Arm Left Staphylococcus aureus 02/10/19 10:01 Gram Stain - Final Tissue - Other Wound Culture - Final Staphylococcus aureus Anaerobic Culture - Final No anaerobic bacteria isolated. 02/07/19 10:35 Blood Culture - Final Blood Culture (Wb) - Arm Left Staphylococcus aureus 02/10/19 13:50 Blood Culture - Preliminary Blood Culture (Wb) - Left Forearm No growth in 48 hours. 02/10/19 13:05 Blood Culture - Preliminary Blood Culture (Wb) - Anticubital Left No growth in 48 hours. 02/04/19 12:00 Blood Culture - Final Blood Culture (Wb) - Arm Right Staphylococcus aureus 02/06/19 10:24 Blood Culture - Final Blood Culture (Wb) - Left Forearm Staphylococcus aureus Laboratory Tests Past 24 Hrs 02/14/19 02/14/19 05:00 05:00 WBC 10.3 RBC 2.65 L Hgb 8.4 L Hct 24.8 L MCV 93.6 MCH 31.7 MCHC 33.9 RDW 13.3 RDW Differential 45.0 H Plt Count 300 MPV 8.4 Sodium 136 Potassium 4.2 Chloride 104 Carbon Dioxide 28.0 Anion Gap 4 L BUN 17 Creatinine 0.66 L Estim Creat Clear Calc 114.44 Est GFR (MDRD) Af Amer 163 Est GFR (MDRD) Non-Af 135 BUN/Creatinine Ratio 25.9 H Glucose 213 H Calcium 8.0 L POC Glucose 02/14/19 02/14/19 02/13/19 11:09 06:51 23:29 POC Glucose 274 H 231 H 87 02/13/19 16:53 POC Glucose 84 Medical Necessity - Tobacco Use Smoking Status: Former smoker Tobacco Use: Non-smoker Assessment/Plan All Active Problems (Last Reviewed 02/01/19 @ 08:28 by Nan Saucedo DO) Necrotizing soft tissue infection (Acute) Abscess of dorsum of left hand (Acute) Abscess of bursa, left hand (Acute) Abscess of thumb, left (Acute) Suppurative tenosynovitis of flexor tendon of left hand (Acute) Sepsis (Acute) Cellulitis (Acute) Dehydration (Acute) Hypokalemia (Acute) MSSA bacteremia (Acute) Knee effusion, right (Acute) Knee pain, right (Acute) Acute pancreatitis (Resolved) Gastroenteritis (Resolved) 1. Acute sepsis with bacteremia 2/2 Cellulitis / necrotic LUE infections, MSSA, with associated MV endocarditis -Continue Ancef as directed by ID -Blood cx 02/10 NTD -WBCs improving further -Today, washout with Dr. 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 Multiple bilateral cavitary lung lesion - 2/2 septic emboli, pulm following, repeat CT 6-8 weeks 3. Anemia with hemoccult + stool - s/p EGD/Colon with Dr. Fletcher. Nonbleeding internal hemorrhoids. Continue PO iron 4. R knee effusion 2/2 reactive arthritis - Dr. Marroquin following, knee aspiration done. O/P F/U. -this continues to decrease in size. -prn ice pack 5. Chronic Hep C - follow up with ID as outpatient 6. T2DM - i continue to titrate these daily, his diet is inconsistent making this difficult. For example the nurses informed me that one night he drank more than 10 milks at once. 7. Severe protein calorie malnutrition-nutrition consult 8. Hyperlipidemia-statin 9. Hypertension-stable 10. Chronic back pain-MRI done, degenerative changes, no discitis or osteomyelitis. DVT prophylaxis-Lovenox Discharge planning: SNF tomorrow if no issues. This patient was seen by Carson Medina PA-C under the supervision of Doctor Sheryl.
--- NOTE | 2019-02-14 15:31 | CASEMGMT ---
MATTHEW called [facility] and left a message letting Soraya know patient will not be coming today, but he will be coming tomorrow. Plan: [facility] under skilled level of care. Insurance has approved patient. Arely RANKIN
--- NOTE | 2019-02-14 15:51 | OP.PCM_ITS ---
Report of Operation Date of Procedure: 02/14/19 Pre-Operative Diagnosis: 1. 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 2. Necrotizing diabetic abscess thenar eminence left palm extending through thenar muscles (abductor pollicis brevis, flexor pollicis brevis, opponens pollicis, and adductor pollicis) and first dorsal interosseous muscle. 3. Necrotizing diabetic abscess dorsum left hand at first webspace extending through first dorsal interosseous muscle and thenar muscles (abductor pollicis brevis, flexor pollicis brevis, opponens pollicis, and adductor pollicis). 4. Suppurative flexor tenosynovitis. 5. Diabetes mellitus. 6. Sepsis. Post-Operative Diagnosis: Same. Surgery/Procedure Performed:: Incision and drainage with irrigation and excisional debridement complex necrotizing diabetic abscesses left thumb and thenar eminence into thenar space and dorsum hand over first webspace. Description of Surgical Findings:: The patient is a 53 year old M was admitted to hospital with sepsis and uncontrolled diabetes and associated increasing pain and redness and swelling left hand and thumb. Patient is left hand dominant. Patient states he fell a week ago and his symptomatology progressively worsened. He denies fever. Plain Xray of the hand in the ED is normal. WBC was 24.9. Random blood sugar was 624. Lactic acid was 2.9. ESR is 18 and the CRP is 41.9. HgbA1c was 10.5. He was started on Vancomycin and Zosyn. His blood cultures were positive for Staphylococcus aureus. His antibiotics have been changed to Ancef and Cleocin. I was asked to evaluate this patient for surgical options for treatment. He was taken to surgery the same day I saw him on 02/02/19 where he underwent surgical preparation left thumb and thenar eminence and dorsum hand over first webspace with incision and drainage and excisional debridement complex necrotizing diabetic abscesses (33 cm2) and incision and drainage tendon sheath left thumb for suppurative flexor tenosynovitis and incision and drainage necrotizing diabetic abscess dorsum left thumb involving extensor tendon with tenosynovitis and incision and drainage necrotizing diabetic abscess thenar eminence left palm extending through thenar muscles (abductor pollicis brevis, flexor pollicis brevis, opponens pollicis, and adductor pollicis) and first dorsal interosseous muscle and incision and drainage necrotizing diabetic abscess first dorsal webspace left hand extending through first dorsal interosseous muscle and thenar muscles (abductor pollicis brevis, flexor pollicis brevis, opponens pollicis, and adductor pollicis). Postop started Silver dressing changes. The dressing changes were painful. Improvement was seen in the wounds and the swelling was decreasing. However the WBC which had decreased to 18 has increased back to 20. He returned to the operating room on 02/06/19 and on 02/10/19 where he underwent incision and drainage with irrigation and excisional debridement complex necrotizing diabetic abscesses left thumb and thenar eminence into thenar space and dorsum hand over first webspace. The incisions were lengthened and new incisions were made on the dorsum of the hand and in the midpalm. No further pus was noted. Some fat necrosis was debrided for culture. Culture still showed Staphylococcus aureus. The wounds continued to improve with daily Silver dressing changes with irrigation. Finally the WBC decreased to normal range. He presents today for a final procedure because there is still some fat necrosis present and some exudate. So it was recommended to return to the operating room today for another incision and drainage and irrigation and excisional debridement procedure. Patient was informed of the risks and complications of the procedure including alternatives to surgery. These were discussed with the patient personally. Patient voices understanding and wishes to proceed. Some of the risks and complications that were discussed included but were not inclusive of failure to diagnose including symptom relief, pain, infection, numbness, stiffness, loss of digit, RSD (CRPS), need for further surgery, contracture, and wound healing problems. Length of zig zag incisions dorsum left thumb - 8 cm. Length of zig zag incisions dorsum left hand at first webspace - 7.5 cm. Length of zig zag incisions volar left thumb extending onto thenar eminence - 10 cm. Length of incision mid palm left hand - 3 cm. Length of incision dorsum left hand, radial - 4.5 cm. Length of incision dorsum left hand, ulnar - 4.5 cm. 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 Drains: None. Estimated Blood Loss (mL): 5 ml. Description of Procedure: Patient was taken to OR in supine position and was placed under general anesthesia. The left hand and forearm areas were prepped and draped in the usual fashion. SCD's were placed for DVT prophylaxis. Perioperative antibiotics were given intravenously. I placed a tourniquet on the arm. It did n't need to be inflated during the case. Upon inspection of the wounds, there was no gross pus seen. Some areas of persistent fat necrosis was seen scattered throughout and were excised and debrided. I also used a curette to help with the debridement process. Good bleeding was seen after the excision and debridement. Hemostasis was obtained with electrocautery. The wounds were copiously irr igated with saline, about 2 liters. By the end of the irrigation, the wounds looked clean without further evidence of infection. I then dressed the wounds with Aquacel Silver followed by dry gauze and a compression JERZY wrap. 2x2 gauze was placed in the web spaces to minimize ulceration. Patient tolerated the procedure well and was sent to PACU in satisfactory condition. Patient will be sent upstairs for continued postop care. Will continue Silver dressing changes tomorrow. The wounds were all left open. The length of zig zag incisions dorsum left thumb was 8 cm. The length of zig zag incisions dorsum left hand at first webspace was 7.5 cm. The length of zig zag incisions volar left thumb extending onto thenar eminence was 10 cm. The length of the midspace incision was 3 cm. The length of the incision dorsum left hand, radial, was 4.5 cm. The length of the incision dorsum left hand, ulnar, was 4.5 cm. He will keep his left hand elevated during the postop period. Anticipate the dressing changes will be painful for a while. He should be evaluated for an ECF. Also with the severity and diffuse widespread nature of the pus, he will need 6 weeks of IV antibiotics. Anticipate stiffness of his thumb and hand and will need extensive aggressive OT for range of motion exercises, strengthening, and edema management. Anticipate increased metabolic demands from the infection and the surgical wounds. Will check a Prealbumin and will need nutritional supplementation with protein to help the healing process. Due to the severity of the infection and the diffuse widespread nature of the pus, I will watch him closely during the initial postop period. If improvement is too slow or if his hand worsens, then he would need additional irrigation and drainage and excisional debridement to make sure additional infection is not present. Encourage nutritional supplementation with protein to help the healing process. After discharge [facility] I will watch him closely, because he is at risk for RSD (CRPS). The tissue that was debrided was sent to Microbiology for culture. A positive culture may necessitate antibiotic modification. Grafts/Implants Used: None. - Complications None. - Admit VTE Documentation VTE Present on Admission: No VTE Mechan Device Prophylaxis: SCD's VTE Pharm Prophylaxis ordered?: Yes Code Visit Surgery Charges CPT - 78968 ICD-10 - M71.042, L02.512, M65.142, M79.89, E11.9, A41.9
[2019-02-14 17:20] LABS: Bedside Glucose 171 mg/dL (70-110)
[2019-02-14 17:41] LABS: Bedside Glucose 151 mg/dL (70-110)
[2019-02-14] MEDS: Glucerna Shake 120 ML LIQUID PO ×2 (18:49→20:28)
[2019-02-14] MEDS: Gabapentin 300 MG Capsule PO (18:50)
[2019-02-14] MEDS: Insulin Lispro 100 UNIT/ML INSULN.PEN SC ×2 (18:52)
[2019-02-14] MEDS: Atorvastatin Calcium 40 MG Tablet PO (20:28)
[2019-02-14] MEDS: HYDROmorphone 1 MG/ML Syringe IV ×2 (20:30→20:34)
[2019-02-14 22:20] LABS: Bedside Glucose 109 mg/dL (70-110)
[2019-02-15] VITALS (12 sets, daily range): BP systolic 99–118; BP diastolic 55–68; PULSE 66–81; RESP 16–17; TEMP 36.7–37.1; O2SAT 98–100
[2019-02-15] MEDS: 0.9% NaCl Peripheral Flush Adult/Peds IV ×4 (02:42→21:55)
[2019-02-15] MEDS: HYDROmorphone 1 MG/ML Syringe IV ×2 (02:43→09:06)
[2019-02-15] MEDS: Cefazolin 2 GM in 0.9% Normal Saline 100 ML IV ×3 (05:27→21:47)
[2019-02-15] MEDS: diazePAM 5 MG Tablet PO (06:30)
[2019-02-15 07:00] LABS: Bedside Glucose 145 mg/dL (70-110)
[2019-02-15] MEDS: Insulin Lispro 100 UNIT/ML INSULN.PEN 6 UNIT SC ×2 (08:50→13:05)
[2019-02-15] MEDS: Gabapentin 300 MG Capsule PO ×3 (08:51→18:05)
[2019-02-15] MEDS: Magnesium Oxide 400 MG Tablet PO (08:51)
[2019-02-15] MEDS: Iron Polysaccharide Complex 150 MG CAPSULE PO (08:51)
--- NOTE | 2019-02-15 09:34 | CASEMGMT ---
Addendum entered by Arely Licona 02/15/19 11:37: SW checked back with patient as promised. MATTHEW asked him if he spoke with his . He said he did. SW asked what she said and he said, It doesn't matter, I am the man. SW reminded him that earlier he said he was going to do whatever his recommends. He said he is not going to a senior care. SW asked him if his works and if he will be alone for parts of the day. He said he plans on getting aides in the home. MATTHEW told him insurance will pay for home health, but they limit how often the aides will come out. MATTHEW explained he won't have an aide the whole time his is gone. He said he has had aides in his home before and insurance paid for them. He said insurance will pay for whatever he wants. He told SW he is not going to a senior care and there is no convincing him. MATTHEW notified physician and PA. Arely RANKIN Original Note: MATTHEW called [facility], [facility], and [facility] [employer] [facility]. None of these companies could transport patient to [facility] due to the fact that it is [place]/[address] away. MATTHEW spoke with Soraya at [facility] and they would not be able to provide any transportation. SW went to patient to ask if family could transport him. Before SW could even ask this patient said he does not want to go. MATTHEW asked him where he will go. He said he wants to go home. MATTHEW told him that physicians will not send him home with an IV. He said they can take it out, but MATTHEW told him they cannot as he will be on IV antibiotics. He said he called his and is waiting on her to call back. Arely [employer]
[2019-02-15] MEDS: Glucerna Shake 120 ML LIQUID PO ×4 (10:40→21:49)
[2019-02-15] MEDS: Metoprolol Tartrate 25 MG Tablet PO ×2 (10:45→21:51)
[2019-02-15] MEDS: Sertraline 50 MG Tablet PO (10:46)
[2019-02-15] MEDS: Lisinopril 20 MG Tablet PO (10:46)
[2019-02-15] MEDS: NIFEdipine 30 MG Tablet PO (10:46)
[2019-02-15] MEDS: Enoxaparin 40 MG/0.4 ML Syringe SC (10:46)
[2019-02-15] MEDS: Pantoprazole Sodium 40 MG Tablet PO ×2 (10:46→21:51)
[2019-02-15 10:56] LABS: Bedside Glucose 213 mg/dL (70-110)
--- NOTE | 2019-02-15 11:54 | DCINST_ITS ---
- Discharge Diagnoses Current Active Problems: Current Active and Chronic Problems (Last Reviewed 02/01/19 @ 08:28 by Nan Saucedo DO) Sepsis (Acute) Cellulitis (Acute) Dehydration (Acute) Malnutrition (Chronic) Anemia (Chronic) Hypokalemia (Acute) Lumbar canal stenosis (Chronic) Lumbar foraminal stenosis (Chronic) MSSA bacteremia (Acute) Knee effusion, right (Acute) Knee pain, right (Acute) You will use the following diet at home:: Calorie/Carbohydrate Controlled (specify 1200, 1400, etc) - 1800 mila/day, Cardiac - 2500-3000mg sodium daily Your food should be the consistency of: Regular Your liquids should be the consistency of: Regular/Thin Discharge Activity: Return to Normal Activity, - - No smoking, no alcohol, no illicit drug use. Allergies/Adverse Reactions: Allergies morphine Allergy (Verified 02/01/19 02:39) headaches pt states gets very bad headaches from morphine fentanyl Adverse Reaction (Verified 02/01/19 02:39) Pt didn't like how it made him feel PT STATES HE DOES NOT LIKE HOW IT MAKES HIM FEEL. ketorolac [From Toradol] Adverse Reaction (Verified 02/01/19 08:01) real sluggish Medications to take at Discharge Atorvastatin Calcium 40 mg PO DAILY 11/14/18 Gabapentin [Neurontin] 300 mg PO TIDCM #90 capsule 02/15/19 HYDROmorphone tablet [Dilaudid] 6 mg PO Q4H PRN PRN 3 Days #54 tablet 02/15/19 Insulin Glargine [Lantus SoloStar Pen] 18 units SC DAILY #1 pen 02/15/19 Insulin Lispro [Humalog KwikPen] 5 unit SC 1700 insuln.pen 02/15/19 Insulin Lispro [Humalog KwikPen] 6 unit SC 0700,1100 insuln.pen 02/15/19 Insulin Lispro [Humalog KwikPen] See Protocol SC TIDAC insuln.pen 02/15/19 Lisinopril [Zestril] 20 mg PO DAILY #30 tablet 02/15/19 Mag Hydrox/Al Hydrox/Simeth [Mylanta II] 30 ml PO Q6H PRN PRN udc 02/15/19 Magnesium Oxide [Mag-Ox 400] 400 mg PO DAILYCM #30 tablet 02/15/19 Metoprolol Tartrate [Lopressor (beta jass)] 25 mg PO BID #60 tablet 02/15/19 Nifedipine [Procardia Xl] 30 mg PO DAILY #30 tab.er.24 02/15/19 Pantoprazole Sodium [Protonix] 40 mg PO DAILY #30 tablet 02/15/19 Sertraline HCl [Zoloft] 50 mg PO DAILY #30 tablet 02/15/19 The following prescriptions were given: Gabapentin [Neurontin] 300 mg PO TIDCM #90 capsule HYDROmorphone tablet [Dilaudid] 6 mg PO Q4H PRN PRN 3 Days #54 tablet PRN Reason: Severe Pain (-08/03) Insulin Glargine [Lantus SoloStar Pen] 18 units SC DAILY #1 pen Lisinopril [Zestril] 20 mg PO DAILY #30 tablet Magnesium Oxide [Mag-Ox 400] 400 mg PO DAILYCM #30 tablet Metoprolol Tartrate [Lopressor (beta jass)] 25 mg PO BID #60 tablet Nifedipine [Procardia Xl] 30 mg PO DAILY #30 tab.er.24 Pantoprazole Sodium [Protonix] 40 mg PO DAILY #30 tablet Sertraline HCl [Zoloft] 50 mg PO DAILY #30 tablet Primary Care Physician: Guido Miller MD [Primary Care Provider] - Please follow up with your Primary Care Physician in: 1 week Test Results: Test results from this visit will be discussed in further detail at your follow- up appointment, if applicable. Please Follow Up With: Eamon Cherry MD - infectious disease When: As directed Please Follow Up With: Segundo Booth MD - pulmonology When: 2 weeks Please Follow Up With: Hi Marroquin MD - Orthopedics When: 2 weeks Please Follow Up With: Edmond Rankin MD - Plastic surgery Proposed Discharge Date: 02/15/19
[2019-02-15] MEDS: Insulin Lispro 100 UNIT/ML INSULN.PEN SC ×2 (13:06→18:04)
[2019-02-15] MEDS: HYDROmorphone 2 MG TABLET 6 MG PO (13:07)
--- NOTE | 2019-02-15 14:54 | PCM.DC.SUM ---
<Carson Medina - Last Filed: 02/15/19 16:06> Discharge Date and Diagnosis - Problem List Patient Problems: Active and Suspected Problems (Last Reviewed 02/01/19 @ 08:28 by Nan Saucedo DO) Necrotizing soft tissue infection (Acute) necrotizing diabetic abscess left thumb and hand Abscess of dorsum of left hand (Acute) diabetic abscess dorsum left hand at first webspace Abscess of bursa, left hand (Acute) diabetic abscess thenar eminence left hand involving the thenar space Abscess of thumb, left (Acute) diabetic abscess left thumb Sepsis (Acute) Cellulitis (Acute) Dehydration (Acute) Hypokalemia (Acute) MSSA bacteremia (Acute) Knee effusion, right (Acute) Knee pain, right (Acute) Date of Admission: 02/01/19 Date of Discharge: 02/15/19 - Primary Discharge Diagnosis Active and Suspected Problems (Last Reviewed 02/01/19 @ 08:28 by Nan Saucedo DO) Mitral valve endocarditis, Sepsis, bacteremia 2/2 MSSA, diabetic hand necrotic infection Multiple bilateral cavitary lung lesions 2/2 Pulmonary septic emboli Iron deficiency Anemia with hemoccult + stool - nonbleeding internal hemorrhoids Right knee effusion 2/2 reactive arthritis s/p aspiration Chronic Hep C DMt2 Severe protein calorie malnutrition HLD HTN Chronic back pain - Secondary Discharge Diagnosis Chronic Problems (Last Reviewed 02/01/19 @ 08:28 by Nan Saucedo DO) HLD (hyperlipidemia) (Chronic) Hepatitis C antibody positive in blood (Chronic) Dysphagia (Chronic) Malnutrition (Chronic) Anemia (Chronic) Lumbar canal stenosis (Chronic) Lumbar foraminal stenosis (Chronic) Unintentional weight loss (Chronic) Elevated liver enzymes (Chronic) Type 2 diabetes mellitus (Chronic) Chronic back pain (Chronic) Hypertension (Chronic) Ulcer of left great 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 These are likely new findings since previous examination allowing for changing technique. Consider CT examination chest for further detail. Trace fluid in the gallbladder fossa and posterior to the pancreas and superior retroperitoneum unchanged since 10/2018 of questionable significance. There is an indeterminant cortical lesion in the right mid kidney which was not present on previous examination and does not represent a simple cyst. Further assessment is recommended to exclude complex cyst versus early neoplasm. Other nonacute findings as outlined above. RAD/Hand Min 3 Views IMPRESSION: There is no acute displaced fracture or dislocation. RAD/Chest 1 View (Portable) IMPRESSION: No acute cardiopulmonary disease. No significant interval change. CT/Chest WITH Contrast IMPRESSION: There multiple bilateral cavitating pulmonary masses. Largest is in the RIGHT upper lung measuring 17 mm. These could be necrotic metastases or septic emboli. There is NO pleural effusion or pneumothorax. Normal heart and pericardium. There is LEFT axillary lymphadenopathy. Echo: Interpretation Summary The estimated ejection fraction is 75 %. Trivial tricuspid valve insufficiency. Unable to estimate RV systolic pressure/pulmonary artery pressure due to technically difficult study. Possible small left pleural effusion. Recommend clinical correlation. There is no comparison study available. CT/Extremity Upper without Contra IMPRESSION: Diffuse soft tissue cellulitis in the region of the thenar space with evidence of air bubbles along the dorsal aspect as well as possible abscess collection along the volar aspect of the thenar space. No radiopaque foreign body is seen. RAD/Knee 4 or More Views IMPRESSION: 1. Small knee joint effusion 2. Mild patellofemoral compartment degenerative change. MRI/Spine Lumbar W/WO Contrast IMPRESSION: L4-5 and L5-S1 degenerative changes more prominent at L5-S1, as described above. There is no definite discitis or osteomyelitis. A follow-up in 4-8 weeks may be warranted to ensure stability. RAD/Chest 1 View (Portable) IMPRESSION: Worsening patchy infiltrates and pulmonary nodules some which are cavitated highly suspicious for infectious inflammatory, likely septic emboli. This should be correlated clinically. Echo: Interpretation Summary Normal LV size. Left ventricular systolic function is normal. The estimated ejection fraction is 65 %. Fine fimbriae suggstive of vegetation on mitral valve leaflet Mild (1+) eccentric mitral valve insufficiency. CONSULTATIONS: Plastic Surgery - [place] Infectious Disease - [facility] Intensive Care - [facility] General Surgery - [facility] Orthopedic Surgery - [facility] Operations: - - I&D, debridement of hand, multiple wound washouts. Procedures: Transesophageal Echo, - - Knee aspiration Summary of Care Provided: Hospital Course: The patient is a 53 year old M with pmhx of chronic back pain, anemia, T2DM, dysphagia, HTN, HLD, Hepatitis C, pancreatitis, possible, who presented to the ER with a swollen red left hand and also complaining of chronic back and abdominal pain. He had elevated WBC count, tachycardia, and lactic acidosis. He was admitted for acute severe sepsis 2/[address] abdomen showed a new R mid kidney lesion and lung nodules that were new. He was given Vanc and Zosyn. He was anemic and had hemoccult + stools, Dr Fletcher was consulted. He was started on iron. He was taken for upper and lower scopes and found to have nonbleeding hemorrhoids. He had both blood cultures + for MSSA. ID was consulted. A CT of the chest revealed cavitary lung lesions. Pulmonary medicine was consulted. These were felt to be 2/2 septic emboli. ALIS was obtained - vegetation was noted on the mitral valve. Plastic surgery was consulted for the hand and he underwent debridement for necrotizing diabetic hand abscess. He developed a right knee effusion - ortho was consulted and it was drained by Dr. Marroquin and was felt to be reactive in nature, no infection noted. This continued to resolved with ice and heat and will need o/p follow up. He underwent repeated washouts for his hand. Wound care was consulted - however he fired the wound care nurse. He had multiple positive blood cultures for MSSA, wound culture showed MSSA. He was changed to [facility] and plan was made for outpatient abx for 6-8 weeks. Eventually he cleared his blood cultures. While we waited for this repeated washouts were done and we made arrangements for him to go to SNF for ongoing PTOT and IV antibiotics. He repeatedly refused to work with PT and OT. He was fixated on receiving IV dilaudid during his stay, and would become angry when it was not given if he fell asleep or was too lethargic to receive it. He was angry when we switched him to oral, despite explaining that it was not indicated if he had no issues swallowing pill, which he did not have issues doing. He was dishonest about refusing to work with therapy. We established his plan for the SNF with both him and his . After we spent several days obtaining the precertification for him to go to the SNF in [place] of his and his 's choice, he refused to go. It was explained to him that this was not in his best interest as he needed therapy and IV abx to clear the endocarditis. He is at high risk of therapy failure with the difficulty we have had here with his drug seeking behaviors, refusal to participate in treatments, and dishonesty with his care providers, and even stated that nobody had asked him his opinion on where he wanted to go. He stated it was too far for his to drive, despite that this is where his wanted him to go. He made dishonest comments about the nurses changing his pain medication orders. He was insistent on discharge home. Infectious disease will arrange for outpatient antibiotics, he will either have an oral course of zyvox or come into the infusion center for daily IV abx therapy. Final ID recommendation is pending. He will need close follow up including: ID 2 weeks, PCP 1-2 weeks, General surgery as directed, pulmonology 1-2 weeks, Orthopedic surgery as directed, Plastics Dr Rankin as directed. He was discharged home in stable condition. I did agree to give him a short course of pain medication - 3 days of his current oral dilaudid regimen, however I do not feel that it is safe for him to have more than this available at one time given his drug seeking behaviors, for the time being. I am concerned that he has had pain medication prescriptions from multiple places on his [facility] report. I instructed him that he will need to contact his PCP or surgeon for additional pain medications, and that the goal is to wean him down on his current pain regimen. New cardiac meds, insulin, protonix, iron, antidepressant, and pain medications were prescribed at [place]. Please see his medication list. He needs to continue daily dressing changes as directed by Dr. Rankin. This patient was seen by Carson Medina PA-C under the supervision of Dr. Saucedo. Patient Problems: Active and Suspected Problems (Last Reviewed 02/01/19 @ 08:28 by Nan Saucedo, ) Necrotizing soft tissue infection (Acute) necrotizing diabetic abscess left thumb and hand Abscess of dorsum of left hand (Acute) diabetic abscess dorsum left hand at first webspace Abscess of bursa, left hand (Acute) diabetic abscess thenar eminence left hand involving the thenar space Abscess of thumb, left (Acute) diabetic abscess left thumb Sepsis (Acute) Cellulitis (Acute) Dehydration (Acute) Hypokalemia (Acute) MSSA bacteremia (Acute) Knee effusion, right (Acute) Knee pain, right (Acute) - Physical Exam General: Alert, Oriented x3, Cooperative, - - Frail, malnourished HEENT: Atraumatic, PERRLA, EOMI, Normocephalic Neck: Supple, No JVD, Negative Carotid Bruits Lungs: Clear to auscultation, Normal air movement Cardiovascular: Regular rate, No murmurs Abdomen: Bowel Sounds Present, Soft, Non Tender Extremities: No edema, Capillary Refill Less than 3 Seconds Skin: No rashes, No breakdown Musculoskeletal: - - Left knee effusion greatly reduced. No erythema or pain. Left hand properly dressed at this time. Neurological: Cranial nerves II-XII grossly intact Psych/Mental Status: Agitated, Alert and oriented to time, place, person, mood and affect Vital Signs Temp Pulse Resp BP Pulse Ox 98.1 F 81 17 105/64 99 02/15/19 08:21 02/15/19 12:16 02/15/19 08:21 02/15/19 08:21 02/15/19 08:21 Oxygen Flow Rate (L/min) 2 Oxygen Delivery Method Room Air Weight: 134 lb 11.239 oz Body Mass Index (BMI) 17.4 Finger Stick Blood Glucose 171 Intake and Output for Last 24 Hours 02/13/19 02/14/19 02/15/19 23:59 23:59 23:59 Intake Total 1785 / 1785 2097 / 2097 1011 / 1011 Output Total 600 / 600 860 / 860 Balance 1785 / 1785 1497 / 1497 151 / 151 Microbiology Past 72 Hours 02/10/19 13:50 Blood Culture - Final Blood Culture (Wb) - Left Forearm No growth in 5 days. 02/14/19 15:20 Gram Stain - Final Tissue - Other Wound Culture - Preliminary No growth-Final to follow 02/10/19 13:05 Blood Culture - Final Blood Culture (Wb) - Anticubital Left No growth in 5 days. 02/09/19 09:44 Blood Culture - Final Blood Culture (Wb) - Left Forearm No growth in 5 days. 02/14/19 05:46 C. difficile DNA Amplification - Final Stool 02/08/19 12:00 Blood Culture - Final Blood Culture (Wb) - Arm Left Staphylococcus aureus 02/10/19 10:01 Gram Stain - Final Tissue - Other Wound Culture - Final Staphylococcus aureus Anaerobic Culture - Final No anaerobic bacteria isolated. 02/07/19 10:35 Blood Culture - Final Blood Culture (Wb) - Arm Left Staphylococcus aureus POC Glucose 02/15/19 02/15/19 02/14/19 10:44 06:35 20:20 POC Glucose 213 H 145 H 109 02/14/19 02/14/19 17:37 17:05 POC Glucose 151 H 171 H Discharge Diet: Low fat/ Low Cholesterol, 1800 Calorie Control Diet, 2000 mg Sodium Diet Discharge Activity: Return to Normal Activity, - - No smoking, no alcohol, no illicit drug use. Home Medications: Medications to take at Discharge Atorvastatin Calcium 40 mg PO DAILY 11/14/18 Ceftriaxone 2 gm IV Q24 38 Days #38 vial 02/15/19 Gabapentin [Neurontin] 300 mg PO TIDCM #90 capsule 02/15/19 HYDROmorphone tablet [Dilaudid] 6 mg PO Q4H PRN PRN 3 Days #54 tablet 02/15/19 Insulin Glargine [Lantus SoloStar Pen] 18 units SC DAILY #1 pen 02/15/19 Insulin Lispro [Humalog KwikPen] 5 unit SC 1700 insuln.pen 02/15/19 Insulin Lispro [Humalog KwikPen] 6 unit SC 0700,1100 insuln.pen 02/15/19 Insulin Lispro [Humalog KwikPen] See Protocol SC TIDAC insuln.pen 02/15/19 Iron Polysaccharide Complex [Ferrex 150] 150 mg PO DAILYCM #30 capsule 02/15/19 Lisinopril [Zestril] 20 mg PO DAILY #30 tablet 02/15/19 Mag Hydrox/Al Hydrox/Simeth [Mylanta II] 30 ml PO Q6H PRN PRN udc 02/15/19 Magnesium Oxide [Mag-Ox 400] 400 mg PO DAILYCM #30 tablet 02/15/19 Metoprolol Tartrate [Lopressor (beta jass)] 25 mg PO BID #60 tablet 02/15/19 Nifedipine [Procardia Xl] 30 mg PO DAILY #30 tab.er.24 02/15/19 Pantoprazole Sodium [Protonix] 40 mg PO DAILY #30 tablet 02/15/19 Sertraline HCl [Zoloft] 50 mg PO DAILY #30 tablet 02/15/19 Gauze Bandage [Gauze Pads] 3 ea TP .QDAILY #90 bandage 02/16/19 Polyhexam Biguan/Gauze Bandage [Kerlix Amd Bandage 0.2% Roll] 1 ea TP .QDAILY #30 bandage 02/16/19 Silver/Hydrocolloid Dressing [Aquacel-Ag W-Hydrofiber Dress] 1 ea TP .QDAILY #30 bandage 02/16/19 Following Prescrptions Were Given to Patient: HYDROmorphone tablet [Dilaudid] 6 mg PO Q4H PRN PRN 3 Days #54 tablet PRN Reason: Severe Pain (-08/03) Ceftriaxone 2 gm IV Q24 38 Days #38 vial Gauze Bandage [Gauze Pads] 3 ea TP .QDAILY #90 bandage Insulin Glargine [Lantus SoloStar Pen] 18 units SC DAILY #1 pen Iron Polysaccharide Complex [Ferrex 150] 150 mg PO DAILYCM #30 capsule Lisinopril [Zestril] 20 mg PO DAILY #30 tablet Magnesium Oxide [Mag-Ox 400] 400 mg PO DAILYCM #30 tablet Nifedipine [Procardia Xl] 30 mg PO DAILY #30 tab.er.24 Pantoprazole Sodium [Protonix] 40 mg PO DAILY #30 tablet Polyhexam Biguan/Gauze Bandage [Kerlix Amd Bandage 0.2% Roll] 1 ea TP .QDAILY #30 bandage Sertraline HCl [Zoloft] 50 mg PO DAILY #30 tablet Silver/Hydrocolloid Dressing [Aquacel-Ag W-Hydrofiber Dress] 1 ea TP .QDAILY #30 bandage Metoprolol Tartrate [Lopressor (beta jass)] 25 mg PO BID #60 tablet Gabapentin [Neurontin] 300 mg PO TIDCM #90 capsule Primary Care Physician: Guido Miller MD [Primary Care Provider] - Please follow up with your Primary Care Physician in: 1 week Please Follow Up With: Eamon Cherry MD - infectious disease When: As directed Please Follow Up With: Segundo Booth MD - pulmonology When: 2 weeks Please Follow Up With: Hi Marroquin MD - Orthopedics When: 2 weeks Please Follow Up With: Edmond Rankin MD - Plastic surgery Disposition: Home Minutes spent on discharge:: 40 Patient Condition:: Stable Medical Necessity - Tobacco Use Smoking Status: Former smoker Tobacco Use: Non-smoker Meaningful Use Info Meaningful Use Diagnoses (Choose all that apply): None applicable <Jennifer Mcallister - Last Filed: 02/16/19 13:57> Discharge Date and Diagnosis Date of Discharge: 02/16/19 - Primary Discharge Diagnosis Active and Suspected Problems (Last Reviewed 02/01/19 @ 08:28 by Nan Saucedo DO) Necrotizing soft tissue infection (Acute) necrotizing diabetic abscess left thumb and hand Abscess of dorsum of left hand (Acute) diabetic abscess dorsum left hand at first webspace Abscess of bursa, left hand (Acute) diabetic abscess thenar eminence left hand involving the thenar space Abscess of thumb, left (Acute) diabetic abscess left thumb Sepsis (Acute) Cellulitis (Acute) Dehydration (Acute) Hypokalemia (Acute) MSSA bacteremia (Acute) Knee effusion, right (Acute) Knee pain, right (Acute) - Secondary Discharge Diagnosis Chronic Problems (Last Reviewed 02/01/19 @ 08:28 by Nan Saucedo DO) HLD (hyperlipidemia) (Chronic) Hepatitis C antibody positive in blood (Chronic) Dysphagia (Chronic) Malnutrition (Chronic) Anemia (Chronic) Lumbar canal stenosis (Chronic) Lumbar foraminal stenosis (Chronic) Unintentional weight loss (Chronic) Elevated liver enzymes (Chronic) Type 2 diabetes mellitus (Chronic) Chronic back pain (Chronic) Hypertension (Chronic) Ulcer of left great 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 On repeat assessment today, patient agreeable to SNF. No acute events overnight. Discharge and admission details as previously noted. General: Alert, Oriented x3, Cooperative HEENT: Atraumatic, PERRLA, EOMI, Normocephalic Neck: Supple, No JVD, Negative Carotid Bruits Lungs: Clear to auscultation, Normal air movement Cardiovascular: Regular rate, Regular Rhythm, Normal S1, Normal S2, No murmurs Abdomen: Bowel Sounds Present, Soft, Non Tender, Non-Distended Extremities: No clubbing, No cyanosis, No edema Skin: - - Left hand dressing clean dry and intact. Musculoskeletal: No Tenderness to Palpation of Joints or Extremities Neurological: Cranial nerves II-XII grossly intact, Neuro grossly intact Psych/Mental Status: Normal Affect, Appropriate Patient seen and examined prior to discharge. Physical assessment as noted above. Patient is stable for discharge with follow up recommendations as noted above. Again, patient agreeable to discharge to SNF and did not sign out AMA. This patient was seen by MARLEY Nolasco under the supervision of Dr. Saucedo. - Physical Exam Vital Signs Temp Pulse Resp BP Pulse Ox 97.7 F L 72 16 139/72 H 98 02/16/19 08:00 02/16/19 10:28 02/16/19 08:00 02/16/19 10:28 02/16/19 08:00 Oxygen Flow Rate (L/min) 2 Oxygen Delivery Method Room Air Weight: 134 lb 4.184 oz Body Mass Index (BMI) 17.4 Finger Stick Blood Glucose 171 Intake and Output for Last 24 Hours 02/14/19 02/15/19 02/16/19 23:59 23:59 23:59 Intake Total 2097 / 2097 1696 / 1696 1206 / 1206 Output Total 600 / 600 860 / 860 Balance 1497 / 1497 836 / 836 1206 / 1206 Microbiology Past 72 Hours 02/10/19 13:50 Blood Culture - Final Blood Culture (Wb) - Left Forearm No growth in 5 days. 02/14/19 15:20 Gram Stain - Final Tissue - Other Wound Culture - Preliminary No growth-Final to follow 02/10/19 13:05 Blood Culture - Final Blood Culture (Wb) - Anticubital Left No growth in 5 days. 02/09/19 09:44 Blood Culture - Final Blood Culture (Wb) - Left Forearm No growth in 5 days. 02/14/19 05:46 C. difficile DNA Amplification - Final Stool 02/08/19 12:00 Blood Culture - Final Blood Culture (Wb) - Arm Left Staphylococcus aureus 02/10/19 10:01 Gram Stain - Final Tissue - Other Wound Culture - Final Staphylococcus aureus Anaerobic Culture - Final No anaerobic bacteria isolated. POC Glucose 02/16/19 02/16/19 02/15/19 11:54 06:40 21:41 POC Glucose 174 H 287 H 231 H 02/15/19 17:05 POC Glucose 148 H Disposition: [facility] facility Code Visit Please see bottom of note for addendum of discharge summary.
--- NOTE | 2019-02-15 15:01 | DS.PCM_ITS ---
Addendum entered and electronically signed by DAVID Contreras 02/15/19 16:06: Code Visit Pt discharged home AGAINST MEDICAL ADVICE. Original Note: <Carson Medina - Last Filed: 02/15/19 16:06> Discharge Date and Diagnosis - Problem List Patient Problems: Active and Suspected Problems (Last Reviewed 02/01/19 @ 08:28 by Nan Saucedo DO) Necrotizing soft tissue infection (Acute) necrotizing diabetic abscess left thumb and hand Abscess of dorsum of left hand (Acute) diabetic abscess dorsum left hand at first webspace Abscess of bursa, left hand (Acute) diabetic abscess thenar eminence left hand involving the thenar space Abscess of thumb, left (Acute) diabetic abscess left thumb Sepsis (Acute) Cellulitis (Acute) Dehydration (Acute) Hypokalemia (Acute) MSSA bacteremia (Acute) Knee effusion, right (Acute) Knee pain, right (Acute) Date of Admission: 02/01/19 Date of Discharge: 02/15/19 - Primary Discharge Diagnosis Active and Suspected Problems (Last Reviewed 02/01/19 @ 08:28 by Nan Saucedo DO) Mitral valve endocarditis, Sepsis, bacteremia 2/2 MSSA, diabetic hand necrotic infection Multiple bilateral cavitary lung lesions 2/2 Pulmonary septic emboli Iron deficiency Anemia with hemoccult + stool - nonbleeding internal hemorrhoids Right knee effusion 2/2 reactive arthritis s/p aspiration Chronic Hep C DMt2 Severe protein calorie malnutrition HLD HTN Chronic back pain - Secondary Discharge Diagnosis Chronic Problems (Last Reviewed 02/01/19 @ 08:28 by Nan Saucedo DO) HLD (hyperlipidemia) (Chronic) Hepatitis C antibody positive in blood (Chronic) Dysphagia (Chronic) Malnutrition (Chronic) Anemia (Chronic) Lumbar canal stenosis (Chronic) Lumbar foraminal stenosis (Chronic) Unintentional weight loss (Chronic) Elevated liver enzymes (Chronic) Type 2 diabetes mellitus (Chronic) Chronic back pain (Chronic) Hypertension (Chronic) Ulcer of left great 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 These are likely new findings since previous examination allowing for changing technique. Consider CT examination chest for further detail. Trace fluid in the gallbladder fossa and posterior to the pancreas and superior retroperitoneum unchanged since 10/2018 of questionable significance. There is an indeterminant cortical lesion in the right mid kidney which was not present on previous examination and does not represent a simple cyst. Further assessment is recommended to exclude complex cyst versus early neoplasm. Other nonacute findings as outlined above. RAD/Hand Min 3 Views IMPRESSION: There is no acute displaced fracture or dislocation. RAD/Chest 1 View (Portable) IMPRESSION: No acute cardiopulmonary disease. No significant interval change. CT/Chest WITH Contrast IMPRESSION: There multiple bilateral cavitating pulmonary masses. Largest is in the RIGHT upper lung measuring 17 mm. These could be necrotic metastases or septic emboli. There is NO pleural effusion or pneumothorax. Normal heart and pericardium. There is LEFT axillary lymphadenopathy. Echo: Interpretation Summary The estimated ejection fraction is 75 %. Trivial tricuspid valve insufficiency. Unable to estimate RV systolic pressure/pulmonary artery pressure due to technically difficult study. Possible small left pleural effusion. Recommend clinical correlation. There is no comparison study available. CT/Extremity Upper without Contra IMPRESSION: Diffuse soft tissue cellulitis in the region of the thenar space with evidence of air bubbles along the dorsal aspect as well as possible abscess collection along the volar aspect of the thenar space. No radiopaque foreign body is seen. RAD/Knee 4 or More Views IMPRESSION: 1. Small knee joint effusion 2. Mild patellofemoral compartment degenerative change. MRI/Spine Lumbar W/WO Contrast IMPRESSION: L4-5 and L5-S1 degenerative changes more prominent at L5-S1, as described above. There is no definite discitis or osteomyelitis. A follow-up in 4-8 weeks may be warranted to ensure stability. RAD/Chest 1 View (Portable) IMPRESSION: Worsening patchy infiltrates and pulmonary nodules some which are cavitated highly suspicious for infectious inflammatory, likely septic emboli. This should be correlated clinically. Echo: Interpretation Summary Normal LV size. Left ventricular systolic function is normal. The estimated ejection fraction is 65 %. Fine fimbriae suggstive of vegetation on mitral valve leaflet Mild (1+) eccentric mitral valve insufficiency. CONSULTATIONS: Plastic Surgery - [place] Infectious Disease - [facility] Intensive Care - Cir[facility]/Leobardo General Surgery - [place] Orthopedic Surgery - [facility] Operations: - - I&D, debridement of hand, multiple wound washouts. Procedures: Transesophageal Echo, - - Knee aspiration Summary of Care Provided: Hospital Course: The patient is a 53 year old M with pmhx of chronic back pain, anemia, T2DM, dysphagia, HTN, HLD, Hepatitis C, pancreatitis, possible, who presented to the ER with a swollen red left hand and also complaining of chronic back and abdominal pain. He had elevated WBC count, tachycardia, and lactic acidosis. He was admitted for acute severe sepsis 2/[address] abdomen showed a new R mid kidney lesion and lung nodules that were new. He was given Vanc and Zosyn. He was anemic and had hemoccult + stools, Dr Fletcher was consulted. He was started on iron. He was taken for upper and lower scopes and found to have nonbleeding hemorrhoids. He had both blood cultures + for MSSA. ID was consulted. A CT of the chest revealed cavitary lung lesions. Pulmonary medicine was consulted. These were felt to be 2/2 septic emboli. ALIS was obtained - vegetation was noted on the mitral valve. Plastic surgery was consulted for the hand and he underwent debridement for necrotizing diabetic hand abscess. He developed a right knee effusion - ortho was consulted and it was drained by Dr. Marroquin and was felt to be reactive in nature, no infection noted. This continued to resolved with ice and heat and will need o/p follow up. He underwent repeated washouts for his hand. Wound care was consulted - however he fired the wound care nurse. He had multiple positive blood cultures for MSSA, wound culture showed MSSA. He was changed to Ancef and plan was made for outpatient abx for 6- 8 weeks. Eventually he cleared his blood cultures. While we waited for this repeated washouts were done and we made arrangements for him to go to SNF for ongoing PTOT and IV antibiotics. He repeatedly refused to work with PT and OT. He was fixated on receiving IV dilaudid during his stay, and would become angry when it was not given if he fell asleep or was too lethargic to receive it. He was angry when we switched him to oral, despite explaining that it was not indicated if he had no issues swallowing pill, which he did not have issues doing. He was dishonest about refusing to work with therapy. We established his plan for the SNF with both him and his . After we spent several days obtaining the precertification for him to go to the SNF in [place] of his and his 's choice, he refused to go. It was explained to him that this was not in his best interest as he needed therapy and IV abx to clear the endocarditis. He is at high risk of therapy failure with the difficulty we have had here with his drug seeking behaviors, refusal to participate in treatments, and dishonesty with his care providers, and even stated that nobody had asked him his opinion on where he wanted to go. He stated it was too far for his to drive, despite that this is where his wanted him to go. He made dishonest comments about the nurses changing his pain medication orders. He was insistent on discharge home. Infectious disease will arrange for outpatient antibiotics, he will either have an oral course of zyvox or come into the infusion center for daily IV abx therapy. Final ID recommendation is pending. He will need close follow up including: ID 2 weeks, PCP 1-2 weeks, General surgery as directed, pulmonology 1-2 weeks, Orthopedic surgery as directed, Plastics Dr Rankin as directed. He was discharged home in stable condition. I did agree to give him a short course of pain medication - 3 days of his current oral dilaudid regimen, however I do not feel that it is safe for him to have more than this available at one time given his drug seeking behaviors, for the time being. I am concerned that he has had pain medication prescriptions from multiple places on his [facility] report. I instructed him that he will need to contact his PCP or surgeon for additional pain medications, and that the goal is to wean him down on his current pain regimen. New cardiac meds, insulin, protonix, iron, antidepressant, and pain medications were prescribed at [facility]. Please see his medication list. He needs to continue daily dressing changes as directed by Dr. Rankin. This patient was seen by Carson Medina PA-C under the supervision of Dr. Saucedo. Patient Problems: Active and Suspected Problems (Last Reviewed 02/01/19 @ 08:28 by M Renita Sementi, DO) Necrotizing soft tissue infection (Acute) necrotizing diabetic abscess left thumb and hand Abscess of dorsum of left hand (Acute) diabetic abscess dorsum left hand at first webspace Abscess of bursa, left hand (Acute) diabetic abscess thenar eminence left hand involving the thenar space Abscess of thumb, left (Acute) diabetic abscess left thumb Sepsis (Acute) Cellulitis (Acute) Dehydration (Acute) Hypokalemia (Acute) MSSA bacteremia (Acute) Knee effusion, right (Acute) Knee pain, right (Acute) - Physical Exam General: Alert, Oriented x3, Cooperative, - - Frail, malnourished HEENT: Atraumatic, PERRLA, EOMI, Normocephalic Neck: Supple, No JVD, Negative Carotid Bruits Lungs: Clear to auscultation, Normal air movement Cardiovascular: Regular rate, No murmurs Abdomen: Bowel Sounds Present, Soft, Non Tender Extremities: No edema, Capillary Refill Less than 3 Seconds Skin: No rashes, No breakdown Musculoskeletal: - - Left knee effusion greatly reduced. No erythema or pain. Left hand properly dressed at this time. Neurological: Cranial nerves II-XII grossly intact Psych/Mental Status: Agitated, Alert and oriented to time, place, person, mood and affect Vital Signs Temp Pulse Resp BP Pulse Ox 98.1 F 81 17 105/64 99 02/15/19 08:21 02/15/19 12:16 02/15/19 08:21 02/15/19 08:21 02/15/19 08:21 Oxygen Flow Rate (L/min) 2 Oxygen Delivery Method Room Air Weight: 134 lb 11.239 oz Body Mass Index (BMI) 17.4 Finger Stick Blood Glucose 171 Intake and Output for Last 24 Hours 02/13/19 02/14/19 02/15/19 23:59 23:59 23:59 Intake Total 1785 / 1785 2097 / 2097 1011 / 1011 Output Total 600 / 600 860 / 860 Balance 1785 / 1785 1497 / 1497 151 / 151 Microbiology Past 72 Hours 02/10/19 13:50 Blood Culture - Final Blood Culture (Wb) - Left Forearm No growth in 5 days. 02/14/19 15:20 Gram Stain - Final Tissue - Other Wound Culture - Preliminary No growth-Final to follow 02/10/19 13:05 Blood Culture - Final Blood Culture (Wb) - Anticubital Left No growth in 5 days. 02/09/19 09:44 Blood Culture - Final Blood Culture (Wb) - Left Forearm No growth in 5 days. 02/14/19 05:46 C. difficile DNA Amplification - Final Stool 02/08/19 12:00 Blood Culture - Final Blood Culture (Wb) - Arm Left Staphylococcus aureus 02/10/19 10:01 Gram Stain - Final Tissue - Other Wound Culture - Final Staphylococcus aureus Anaerobic Culture - Final No anaerobic bacteria isolated. 02/07/19 10:35 Blood Culture - Final Blood Culture (Wb) - Arm Left Staphylococcus aureus POC Glucose 02/15/19 02/15/19 02/14/19 10:44 06:35 20:20 POC Glucose 213 H 145 H 109 02/14/19 02/14/19 17:37 17:05 POC Glucose 151 H 171 H Discharge Diet: Low fat/ Low Cholesterol, 1800 Calorie Control Diet, 2000 mg Sodium Diet Discharge Activity: Return to Normal Activity, - - No smoking, no alcohol, no illicit drug use. Home Medications: Medications to take at Discharge Atorvastatin Calcium 40 mg PO DAILY 11/14/18 Ceftriaxone 2 gm IV Q24 38 Days #38 vial 02/15/19 Gabapentin [Neurontin] 300 mg PO TIDCM #90 capsule 02/15/19 HYDROmorphone tablet [Dilaudid] 6 mg PO Q4H PRN PRN 3 Days #54 tablet 02/15/19 Insulin Glargine [Lantus SoloStar Pen] 18 units SC DAILY #1 pen 02/15/19 Insulin Lispro [Humalog KwikPen] 5 unit SC 1700 insuln.pen 02/15/19 Insulin Lispro [Humalog KwikPen] 6 unit SC 0700,1100 insuln.pen 02/15/19 Insulin Lispro [Humalog KwikPen] See Protocol SC TIDAC insuln.pen 02/15/19 Iron Polysaccharide Complex [Ferrex 150] 150 mg PO DAILYCM #30 capsule 02/15/19 Lisinopril [Zestril] 20 mg PO DAILY #30 tablet 02/15/19 Mag Hydrox/Al Hydrox/Simeth [Mylanta II] 30 ml PO Q6H PRN PRN udc 02/15/19 Magnesium Oxide [Mag-Ox 400] 400 mg PO DAILYCM #30 tablet 02/15/19 Metoprolol Tartrate [Lopressor (beta jass)] 25 mg PO BID #60 tablet 02/15/19 Nifedipine [Procardia Xl] 30 mg PO DAILY #30 tab.er.24 02/15/19 Pantoprazole Sodium [Protonix] 40 mg PO DAILY #30 tablet 02/15/19 Sertraline HCl [Zoloft] 50 mg PO DAILY #30 tablet 02/15/19 Gauze Bandage [Gauze Pads] 3 ea TP .QDAILY #90 bandage 02/16/19 Polyhexam Biguan/Gauze Bandage [Kerlix Amd Bandage 0.2% Roll] 1 ea TP .QDAILY #30 bandage 02/16/19 Silver/Hydrocolloid Dressing [Aquacel-Ag W-Hydrofiber Dress] 1 ea TP .QDAILY #30 bandage 02/16/19 Following Prescrptions Were Given to Patient: HYDROmorphone tablet [Dilaudid] 6 mg PO Q4H PRN PRN 3 Days #54 tablet PRN Reason: Severe Pain () Ceftriaxone 2 gm IV Q24 38 Days #38 vial Gauze Bandage [Gauze Pads] 3 ea TP .QDAILY #90 bandage Insulin Glargine [Lantus SoloStar Pen] 18 units SC DAILY #1 pen Iron Polysaccharide Complex [Ferrex 150] 150 mg PO DAILYCM #30 capsule Lisinopril [Zestril] 20 mg PO DAILY #30 tablet Magnesium Oxide [Mag-Ox 400] 400 mg PO DAILYCM #30 tablet Nifedipine [Procardia Xl] 30 mg PO DAILY #30 tab.er.24 Pantoprazole Sodium [Protonix] 40 mg PO DAILY #30 tablet Polyhexam Biguan/Gauze Bandage [Kerlix Amd Bandage 0.2% Roll] 1 ea TP .QDAILY #30 bandage Sertraline HCl [Zoloft] 50 mg PO DAILY #30 tablet Silver/Hydrocolloid Dressing [Aquacel-Ag W-Hydrofiber Dress] 1 ea TP .QDAILY #30 bandage Metoprolol Tartrate [Lopressor (beta jass)] 25 mg PO BID #60 tablet Gabapentin [Neurontin] 300 mg PO TIDCM #90 capsule Primary Care Physician: Guido Miller MD [Primary Care Provider] - Please follow up with your Primary Care Physician in: 1 week Please Follow Up With: Eamon Cherry MD - infectious disease When: As directed Please Follow Up With: Segundo Booth MD - pulmonology When: 2 weeks Please Follow Up With: Hi Marroquin MD - Orthopedics When: 2 weeks Please Follow Up With: Edmond Rankin MD - Plastic surgery Disposition: Home Minutes spent on discharge:: 40 Patient Condition:: Stable Medical Necessity - Tobacco Use Smoking Status: Former smoker Tobacco Use: Non-smoker Meaningful Use Info Meaningful Use Diagnoses (Choose all that apply): None applicable <EsvinJennifer - Last Filed: 02/16/19 13:57> Discharge Date and Diagnosis Date of Discharge: 02/16/19 - Primary Discharge Diagnosis Active and Suspected Problems (Last Reviewed 02/01/19 @ 08:28 by Nan Saucedo DO) Necrotizing soft tissue infection (Acute) necrotizing diabetic abscess left thumb and hand Abscess of dorsum of left hand (Acute) diabetic abscess dorsum left hand at first webspace Abscess of bursa, left hand (Acute) diabetic abscess thenar eminence left hand involving the thenar space Abscess of thumb, left (Acute) diabetic abscess left thumb Sepsis (Acute) Cellulitis (Acute) Dehydration (Acute) Hypokalemia (Acute) MSSA bacteremia (Acute) Knee effusion, right (Acute) Knee pain, right (Acute) - Secondary Discharge Diagnosis Chronic Problems (Last Reviewed 02/01/19 @ 08:28 by Nan Saucedo DO) HLD (hyperlipidemia) (Chronic) Hepatitis C antibody positive in blood (Chronic) Dysphagia (Chronic) Malnutrition (Chronic) Anemia (Chronic) Lumbar canal stenosis (Chronic) Lumbar foraminal stenosis (Chronic) Unintentional weight loss (Chronic) Elevated liver enzymes (Chronic) Type 2 diabetes mellitus (Chronic) Chronic back pain (Chronic) Hypertension (Chronic) Ulcer of left great 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 On repeat assessment today, patient agreeable to SNF. No acute events overnight. Discharge and admission details as previously noted. General: Alert, Oriented x3, Cooperative HEENT: Atraumatic, PERRLA, EOMI, Normocephalic Neck: Supple, No JVD, Negative Carotid Bruits Lungs: Clear to auscultation, Normal air movement Cardiovascular: Regular rate, Regular Rhythm, Normal S1, Normal S2, No murmurs Abdomen: Bowel Sounds Present, Soft, Non Tender, Non-Distended Extremities: No clubbing, No cyanosis, No edema Skin: - - Left hand dressing clean dry and intact. Musculoskeletal: No Tenderness to Palpation of Joints or Extremities Neurological: Cranial nerves II-XII grossly intact, Neuro grossly intact Psych/Mental Status: Normal Affect, Appropriate Patient seen and examined prior to discharge. Physical assessment as noted above. Patient is stable for discharge with follow up recommendations as noted above. Again, patient agreeable to discharge to SNF and did not sign out AMA. This patient was seen by MARLEY Nolasco under the supervision of Dr. Saucedo. - Physical Exam Vital Signs Temp Pulse Resp BP Pulse Ox 97.7 F L 72 16 139/72 H 98 02/16/19 08:00 02/16/19 10:28 02/16/19 08:00 02/16/19 10:28 02/16/19 08:00 Oxygen Flow Rate (L/min) 2 Oxygen Delivery Method Room Air Weight: 134 lb 4.184 oz Body Mass Index (BMI) 17.4 Finger Stick Blood Glucose 171 Intake and Output for Last 24 Hours 02/14/19 02/15/19 02/16/19 23:59 23:59 23:59 Intake Total 2097 / 2097 1696 / 1696 1206 / 1206 Output Total 600 / 600 860 / 860 Balance 1497 / 1497 836 / 836 1206 / 1206 Microbiology Past 72 Hours 02/10/19 13:50 Blood Culture - Final Blood Culture (Wb) - Left Forearm No growth in 5 days. 02/14/19 15:20 Gram Stain - Final Tissue - Other Wound Culture - Preliminary No growth-Final to follow 02/10/19 13:05 Blood Culture - Final Blood Culture (Wb) - Anticubital Left No growth in 5 days. 02/09/19 09:44 Blood Culture - Final Blood Culture (Wb) - Left Forearm No growth in 5 days. 02/14/19 05:46 C. difficile DNA Amplification - Final Stool 02/08/19 12:00 Blood Culture - Final Blood Culture (Wb) - Arm Left Staphylococcus aureus 02/10/19 10:01 Gram Stain - Final Tissue - Other Wound Culture - Final Staphylococcus aureus Anaerobic Culture - Final No anaerobic bacteria isolated. POC Glucose 02/16/19 02/16/19 02/15/19 11:54 06:40 21:41 POC Glucose 174 H 287 H 231 H 02/15/19 17:05 POC Glucose 148 H Disposition: Assisted facility Code Visit Please see bottom of note for addendum of discharge summary.
--- NOTE | 2019-02-15 15:14 | CASEMGMT ---
MATTHEW spoke with Soraya from [facility] letting her know patient is currently refusing to go to the [facility]. MATTHEW told her that everyone has tried to talk with him. Surgeon will be up to talk with him in a bit. She said patient can come whenever. half-way patient will go to if he agrees: [facility] [address] [place] [address] Arely VILLARREAL MSW
--- NOTE | 2019-02-15 16:18 | CASEMGMT ---
This RN CM to room to speak with pt regarding discharge plan and pt states that he is going home at discharge. Pt states that he can just 'call and get some aides from [facility]' if he needs help when he gets home. He states that if he needs to get anywhere, he can just 'call the Health dept and they will take me whereever I want/need to go.' When asked why he does not want to go to SNF now, pt states that he does not want to go to the SNF 'all the way up in [place]' and this RN CM reminded him that he wanted his to make this decision regarding SNF previously and pt denies this at this time. Pt states that 'we always stay in [place]' and this RN CM asked him if he would be willing to go to a facility in [place] and pt declines at this time. Pt states that will not/cannot take care of him and then a few minutes later states that if she quits her job to care for him, that she is certified and that she can even get paid to take care of him. Dr. Rankin to bedside at this time to change dressing and speak with pt at this time. SStsierra RN CM
--- NOTE | 2019-02-15 16:45 | PCM.PN.SRG ---
Patient Problems: Active and Suspected Problems (Last Reviewed 02/01/19 @ 08:28 by Nan Saucedo DO) Sepsis (Acute) Cellulitis (Acute) Dehydration (Acute) Hypokalemia (Acute) MSSA bacteremia (Acute) Knee effusion, right (Acute) Knee pain, right (Acute) Subjective: Postop #!3 and #9 and #5 and #1 Patient is resting comfortably. Patient has been accepted to the [facility] in [place]. He has refused to go. - Physical Exam General: Alert, Oriented x3 HEENT: PERRLA, EOMI Oral: Moist Mucosa Neck: Supple Abdomen: Soft, Non-Distended Skin: Ulcer/ Wound - multiple wounds left thumb, thenar eminence, and dorsum left hand are stable. Additional wounds on the dorsum of the hand and the midpalm are stable. No active bleeding. No further evidence of pus or infection noted. Swelling slowly resolving. Some granulation tissue seen. Irrigated wounds with saline. Patient tolerated the dressing change better today. Wounds redressed with Silver dressing. Patient did not need IV analgesia for the dressing change today. Concern about early RSD shows no progression. Neurological: Cranial nerves II-XII grossly intact Psych/Mental Status: Normal Affect, Appropriate Vital Signs Temp Pulse Resp BP Pulse Ox 98.2 F 77 16 118/68 100 02/15/19 14:21 02/15/19 15:51 02/15/19 14:21 02/15/19 14:21 02/15/19 14:21 Oxygen Flow Rate (L/min) 2 Oxygen Delivery Method Room Air Weight: 134 lb 11.239 oz Body Mass Index (BMI) 17.4 Finger Stick Blood Glucose 171 Intake and Output for Last 24 Hours 02/13/19 02/14/19 02/15/19 23:59 23:59 23:59 Intake Total 1785 / 1785 2097 / 2097 1011 / 1011 Output Total 600 / 600 860 / 860 Balance 1785 / 1785 1497 / 1497 151 / 151 Microbiology Past 72 Hours 02/10/19 13:50 Blood Culture - Final Blood Culture (Wb) - Left Forearm No growth in 5 days. 02/14/19 15:20 Gram Stain - Final Tissue - Other Wound Culture - Preliminary No growth-Final to follow 02/10/19 13:05 Blood Culture - Final Blood Culture (Wb) - Anticubital Left No growth in 5 days. 02/09/19 09:44 Blood Culture - Final Blood Culture (Wb) - Left Forearm No growth in 5 days. 02/14/19 05:46 C. difficile DNA Amplification - Final Stool 02/08/19 12:00 Blood Culture - Final Blood Culture (Wb) - Arm Left Staphylococcus aureus 02/10/19 10:01 Gram Stain - Final Tissue - Other Wound Culture - Final Staphylococcus aureus Anaerobic Culture - Final No anaerobic bacteria isolated. POC Glucose 02/15/19 02/15/19 02/14/19 10:44 06:35 20:20 POC Glucose 213 H 145 H 109 02/14/19 02/14/19 17:37 17:05 POC Glucose 151 H 171 H Medical Necessity - Tobacco Use Smoking Status: Former smoker Tobacco Use: Non-smoker Assessment/Plan All Active Problems (Last Reviewed 02/01/19 @ 08:28 by Nan Saucedo DO) Necrotizing soft tissue infection (Acute) Abscess of dorsum of left hand (Acute) Abscess of bursa, left hand (Acute) Abscess of thumb, left (Acute) Suppurative tenosynovitis of flexor tendon of left hand (Acute) Sepsis (Acute) Cellulitis (Acute) Dehydration (Acute) Hypokalemia (Acute) MSSA bacteremia (Acute) Knee effusion, right (Acute) Knee pain, right (Acute) Acute pancreatitis (Resolved) Gastroenteritis (Resolved) 1. 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 2. Necrotizing diabetic abscess thenar eminence left palm extending through thenar muscles and first dorsal interosseous muscle. 3. Necrotizing diabetic abscess dorsum left hand at first webspace extending through first dorsal interosseous muscle and thenar muscles. 4. Suppurative flexor tenosynovitis. 5. Diabetes mellitus. 6. Sepsis. 7. s/p surgical preparation left thumb and thenar eminence and dorsum hand over first webspace with incision and drainage and excisional debridement complex necrotizing diabetic abscesses (33 cm2) and incision and drainage tendon sheath left thumb for suppurative flexor tenosynovitis and incision and drainage necrotizing diabetic abscess dorsum left thumb involving extensor tendon with tenosynovitis and incision and drainage necrotizing diabetic abscess thenar eminence left palm extending through thenar muscles (abductor pollicis brevis, flexor pollicis brevis, opponens pollicis, and adductor pollicis) and first dorsal interosseous muscle and incision and drainage necrotizing diabetic abscess first dorsal webspace left hand extending through first dorsal interosseous muscle and thenar muscles (abductor pollicis brevis, flexor pollicis brevis, opponens pollicis, and adductor pollicis). 8. Anemia of chronic disease, acute on chronic. 9. Early RSD, stable. Patient tolerated the Silver dressing change better today. He did not need IV analgesia for the dressing change. Concerns about early RSD have not progressed since starting Zoloft and Procardia XL. The increased Neurontin has been helpful. Swelling slowly resolving. Less than preop. No further pus seen in the wounds. With the severity of the infection, I anticipate the swelling will take several days to resolve. I irrigated the wounds with saline today. Some granulation tissue seen. More and more granulation is being seen. Operative culture shows Staphylococcus aureus thus far. Presently he is on Ancef and Cleocin. Patient has refused to go to the ECF. He wants to go home. Will try and set up Home Health for him. So the PICC will have to be pulled because of his history of drug use. Will need to send him home on po antibiotics which is not ideal. Patient understands that by refusing care and recommendations from the physicians, he will have to sign an AMA form. He is agreeable to signing that form. On the form I wrote an addendum that states by refusing care and recommendations, he is at increased risk for worsening infection, amputation, and He voiced understanding. He also understands that by going home he will get one script for narcotics. With his history of drug use, I won't write for any additional narcotics after the script has been filled and the meds taken. Patient will need aggressive OT for range of motion exercises, strengthening, and edema management after discharge to minimize stiffness. Patient is at high risk for residual stiffness in his left thumb and hand. As N outpatient,will set up that OT over at [facility]. Anticipate increased metabolic demands from the infection and the surgical wounds. Prealbumin was <3 Encourage nutritional supplementation with protein to help the healing process. With his anemia of chronic disease, he will continue Iron supplementation. Followup office one week for continued monitoring of the wound. As the wounds continue to heal, can discuss with the patient surgical options for closure with skin grafts and flaps. In preparaton for dischage, will wean him off the IV analgesics for po analgesics at discharge. Once again, since the patient is refusing to go to an ECF at this time and wants to go home, he will need to sign an AMA form prior to discharge.
--- NOTE | 2019-02-15 17:02 | PCM.PROGNOTE ---
Patient Problems: Active and Suspected Problems (Last Reviewed 02/01/19 @ 08:28 by Nan Saucedo DO) Sepsis (Acute) Cellulitis (Acute) Dehydration (Acute) Hypokalemia (Acute) MSSA bacteremia (Acute) Knee effusion, right (Acute) Knee pain, right (Acute) Subjective: Pt decided that he would be going home regardless of the plans for him to go to [place] to the [facility] that we have been arranging for the past several days. He agreed to sign AMA forms. He will stay until tomorrow so that we can arrange for IV abx at the wound center and for home health care, but he understands that his is not in his best interest medically and that this is against medical advice. - Physical Exam Vital Signs Temp Pulse Resp BP Pulse Ox 98.2 F 77 16 118/68 100 02/15/19 14:21 02/15/19 15:51 02/15/19 14:21 02/15/19 14:21 02/15/19 14:21 Oxygen Flow Rate (L/min) 2 Oxygen Delivery Method Room Air Weight: 134 lb 11.239 oz Body Mass Index (BMI) 17.4 Finger Stick Blood Glucose 171 Intake and Output for Last 24 Hours 02/13/19 02/14/19 02/15/19 23:59 23:59 23:59 Intake Total 1785 / 1785 2097 / 2097 1011 / 1011 Output Total 600 / 600 860 / 860 Balance 1785 / 1785 1497 / 1497 151 / 151 Microbiology Past 72 Hours 02/10/19 13:50 Blood Culture - Final Blood Culture (Wb) - Left Forearm No growth in 5 days. 02/14/19 15:20 Gram Stain - Final Tissue - Other Wound Culture - Preliminary No growth-Final to follow 02/10/19 13:05 Blood Culture - Final Blood Culture (Wb) - Anticubital Left No growth in 5 days. 02/09/19 09:44 Blood Culture - Final Blood Culture (Wb) - Left Forearm No growth in 5 days. 02/14/19 05:46 C. difficile DNA Amplification - Final Stool 02/08/19 12:00 Blood Culture - Final Blood Culture (Wb) - Arm Left Staphylococcus aureus 02/10/19 10:01 Gram Stain - Final Tissue - Other Wound Culture - Final Staphylococcus aureus Anaerobic Culture - Final No anaerobic bacteria isolated. POC Glucose 02/15/19 02/15/19 02/14/19 10:44 06:35 20:20 POC Glucose 213 H 145 H 109 02/14/19 02/14/19 17:37 17:05 POC Glucose 151 H 171 H Medical Necessity - Tobacco Use Smoking Status: Former smoker Tobacco Use: Non-smoker Assessment/Plan All Active Problems (Last Reviewed 02/01/19 @ 08:28 by Nan Saucedo DO) Necrotizing soft tissue infection (Acute) Abscess of dorsum of left hand (Acute) Abscess of bursa, left hand (Acute) Abscess of thumb, left (Acute) Suppurative tenosynovitis of flexor tendon of left hand (Acute) Sepsis (Acute) Cellulitis (Acute) Dehydration (Acute) Hypokalemia (Acute) MSSA bacteremia (Acute) Knee effusion, right (Acute) Knee pain, right (Acute) Acute pancreatitis (Resolved) Gastroenteritis (Resolved) 1. Acute sepsis with bacteremia 2/2 Cellulitis / necrotic LUE infections, MSSA, with associated MV endocarditis -outpatient IV infusions daily as directed by infectious disease. 2. Multiple bilateral cavitary lung lesion - 2/2 septic emboli, pulm following, repeat CT 6-8 weeks 3. Anemia with hemoccult + stool - s/p EGD/Colon with Dr. Fletcher. Nonbleeding internal hemorrhoids. Continue PO iron 4. R knee effusion 2/2 reactive arthritis - Dr. Marroquin following, knee aspiration done. O/P F/U. -this continues to decrease in size. -prn ice pack 5. Chronic Hep C - follow up with ID as outpatient 6. T2DM - i continue to titrate these daily, his diet is inconsistent making this difficult. For example the nurses informed me that one night he drank more than 10 milks at once. 7. Severe protein calorie malnutrition-nutrition consult 8. Hyperlipidemia-statin 9. Hypertension-stable 10. Chronic back pain-MRI done, degenerative changes, no discitis or osteomyelitis. DVT prophylaxis-Lovenox Discharge planning: Home tomorrow against medical advice. Follow ups: Plastics ID Ortho Gen surg Pulmonary PCP This patient was seen by Carson Medina PA-C under the supervision of Doctor Saucedo.
[2019-02-15 17:11] LABS: Bedside Glucose 148 mg/dL (70-110)
--- NOTE | 2019-02-15 17:41 | NURSING ---
Called and spoke with patient's . Informed her that patient will be discharged home tomorrow with home health per his request. Dr. Rankin was in and spoke with patient and informed the patient of the risks associated with going home. Patient okay with same. Also informed his of uncertain discharge time as of now. Will know more tomorrow once case management has been able to setup home health services for him. Patient's voices understanding of same.
--- NOTE | 2019-02-15 18:05 | PCM.PN.ID ---
Patient Problems: Active and Suspected Problems (Last Reviewed 02/01/19 @ 08:28 by Nan Saucedo DO) Sepsis (Acute) Cellulitis (Acute) Dehydration (Acute) Hypokalemia (Acute) MSSA bacteremia (Acute) Knee effusion, right (Acute) Knee pain, right (Acute) Subjective: Feeling ok, no fever, does not want ECF. Hand better, knee better. - Physical Exam General: Alert, Cooperative, No apparent distress Lungs: Clear to auscultation, Normal air movement Cardiovascular: Regular rate, Regular Rhythm Abdomen: Soft, Non Tender, Non-Distended Skin: Ulcer/ Wound - L hand wrapped Vital Signs Temp Pulse Resp BP Pulse Ox 98.2 F 77 16 118/68 100 02/15/19 14:21 02/15/19 15:51 02/15/19 14:21 02/15/19 14:21 02/15/19 14:21 Oxygen Flow Rate (L/min) 2 Oxygen Delivery Method Room Air Weight: 61.1 kg Body Mass Index (BMI) 17.4 Finger Stick Blood Glucose 171 Intake and Output for Last 24 Hours 02/13/19 02/14/19 02/15/19 23:59 23:59 23:59 Intake Total 1785 / 1785 2097 / 2097 1011 / 1011 Output Total 600 / 600 860 / 860 Balance 1785 / 1785 1497 / 1497 151 / 151 Microbiology Past 72 Hours 02/10/19 13:50 Blood Culture - Final Blood Culture (Wb) - Left Forearm No growth in 5 days. 02/14/19 15:20 Gram Stain - Final Tissue - Other Wound Culture - Preliminary No growth-Final to follow 02/10/19 13:05 Blood Culture - Final Blood Culture (Wb) - Anticubital Left No growth in 5 days. 02/09/19 09:44 Blood Culture - Final Blood Culture (Wb) - Left Forearm No growth in 5 days. 02/14/19 05:46 C. difficile DNA Amplification - Final Stool 02/08/19 12:00 Blood Culture - Final Blood Culture (Wb) - Arm Left Staphylococcus aureus 02/10/19 10:01 Gram Stain - Final Tissue - Other Wound Culture - Final Staphylococcus aureus Anaerobic Culture - Final No anaerobic bacteria isolated. 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 Concern for R sided endocarditis given suspected pulm emboli. - repeat bcx clear since 02/10/19 - TTE showed no veg. ALIS with mitral veg. - Taken to OR 02/[address] Rankin with diffuse abscess and necrosis in his hand. Back to OR 02/06 and again 02/10. - knee aspiration by Dr. Marroquin consistent with reactive arthritis; knee much improved now - has chronic lower back pain and spine tenderness. MRI 02/02 showed no new sign of infection. Last study was 10/2018. - continue cefazolin. Added clinda 02/02- for anti-toxin effect. CT did show gas in the tissues. - ok for picc placement; midline to be removed. Cavitary lung lesion - Low suspicion for TB. No hemoptysis, some weight loss. Reports neg PPD in the past. - given his history, imaging, (+) mSSA bacteremia, and that these lung changes are new compared to CT on 01/25, removed d/c neg airflow isolation chronic hep C - neg for HIV and hep B in 10/2018 - HCV pcr was 8 million in 05/2018. Now 7.5 million. Will need outpt eval for treatment. - neg tox screen - denies IVDU Will follow, d/w primary team. If he is not going to ECF, wrote rx for ceftriaxone 2gm qday at infusion center, stop date 03/24/19 with weekly bmp, cbc, and esr.
[2019-02-15] MEDS: Atorvastatin Calcium 40 MG Tablet PO (21:50)
[2019-02-15] MEDS: HYDROmorphone 2 MG TABLET PO (21:52)
[2019-02-15 22:46] LABS: Bedside Glucose 231 mg/dL (70-110)
[2019-02-16 02:46] VITALS: BP 123/68; PULSE 72; RESP 16; TEMP 37.1; O2SAT 100
[2019-02-16] MEDS: 0.9% NaCl Peripheral Flush Adult/Peds IV ×3 (02:49→15:50)
[2019-02-16] MEDS: HYDROmorphone 0.5 MG/0.5 ML SYRINGE IV ×3 (02:49→15:50)
[2019-02-16 03:00] VITALS: PULSE 72
[2019-02-16 04:39] VITALS: BP 121/81; PULSE 72; RESP 16; O2SAT 100
[2019-02-16] MEDS: HYDROmorphone 2 MG TABLET PO ×3 (04:41→13:30)
[2019-02-16] MEDS: Cefazolin 2 GM in 0.9% Normal Saline 100 ML IV ×2 (06:38→13:30)
[2019-02-16 07:11] LABS: Bedside Glucose 287 mg/dL (70-110)
[2019-02-16 08:00] VITALS: BP 139/72; PULSE 71; PULSE 72; RESP 16; TEMP 36.5; O2SAT 98
--- NOTE | 2019-02-16 08:03 | NURSING ---
0745-hospital manager digital called floor to say that pt called wanting dr. ishaan cavanaugh. went in to room only to find that pt wanting to talk to him about going to jail explained that pt cannot and will not call over to dr office d/t explicit notes written by dr. quiros and that all dr's will be rounding at some point today and that will be seen. pt's dressing hanging off and parveen wrap on floor. when asked about this stated, 'that was dirty and had blood all over it . limits and boundaries set with pt and pt aware of when meds due and poc.
[2019-02-16] MEDS: Iron Polysaccharide Complex 150 MG CAPSULE PO (08:35)
[2019-02-16] MEDS: Glucerna Shake 120 ML LIQUID PO ×2 (08:36→13:30)
[2019-02-16] MEDS: Magnesium Oxide 400 MG Tablet PO (08:36)
[2019-02-16] MEDS: Gabapentin 300 MG Capsule PO ×2 (08:36→12:34)
[2019-02-16] MEDS: Insulin Lispro 100 UNIT/ML INSULN.PEN 6 UNIT SC ×2 (08:39→12:35)
[2019-02-16] MEDS: Insulin Lispro 100 UNIT/ML INSULN.PEN SC ×2 (08:40→12:35)
--- NOTE | 2019-02-16 09:21 | CASEMGMT ---
Addendum entered by Arely Licona 02/16/19 10:48: SW did not notify patient's as patient said SW cannot call her. Arely RANKIN Original Note: Addendum entered by Arely Licona 02/16/19 10:45: [facility] could not transport. [facility] will transport, but cannot pick him up until 730p. MATTHEW faxed orders to [facility] and wrote on fax face sheet that transportation could not pick him up until 730p. SW will also call her back and make sure she got orders and this message. SW let RN and patient know this information. Plan: [facility] under skilled level of care on a convalescent stay. [facility] will transport via cot. Arely RANKIN Original Note: MATTHEW spoke with patient this am per his request. He said, This is between you, me, and the longterm, I will go to the longterm. SW asked if his could take him and he said he doesn't want her to have anything to do with him. He said if anything happens to him or an emergency comes up he wants his mom or brother called and not his . He said he could see if anyone could take him, but SW would have to give him until noon. MATTHEW told him SW will work on setting up transport. He said not to hurry as he is eating breakfast and Dr Rankin will need to see him. seed sorterBrielle is working on transport. MATTHEW called and left message for Soraya at [facility] letting her know patient has agreed to come and we are trying to 1030 picker box operator. Await orders. Arely RANKIN
--- NOTE | 2019-02-16 09:33 | TREXTCA.CO_ITS ---
- Diet 02/14/19 17:40 Diet: Carbohydrate Controlled Is pt able to select menu?: Yes - Routine Orders/Code Status Enema Type: Fleetz Enema Frequency: Daily PRN Suppository Type: Dulcolax 10mg Suppository Frequency: Daily PRN Routine Lab Work: - - Weekly BMP, CBC, ESR while on IV antibiotics. Code Status: Full Code - Wound(s) LEFT HAND AND THUMB Wound Type: Surgical Incision Dressing Change: AntiMicrobial (Aquacel AG, etc) Right Great Toe Wound Type: Neuropathic/Diabetic Foot Ulcer - Suggestions for Active Care Change Position every (hours): 2 Times a day to sit in chair: 3 - Therapies Physical Therapy: Eval and Treat Occupational Therapy: Eval and Treat Speech Therapy: Eval and Treat - Problem/Diagnosis (1) Necrotizing soft tissue infection Status: Acute Comment: necrotizing diabetic abscess left thumb and hand Current Visit: Yes (2) Abscess of dorsum of left hand Status: Acute Comment: diabetic abscess dorsum left hand at first webspace Current Visit: Yes (3) Abscess of bursa, left hand Status: Acute Comment: diabetic abscess thenar eminence left hand involving the thenar space Current Visit: Yes (4) Abscess of thumb, left Status: Acute Comment: diabetic abscess left thumb Current Visit: Yes (5) HLD (hyperlipidemia) Status: Chronic Current Visit: No (6) Hepatitis C antibody positive in blood Status: Chronic Current Visit: No (7) Dysphagia Status: Chronic Current Visit: No (8) Malnutrition Status: Chronic Current Visit: Yes (9) MSSA bacteremia Status: Acute Current Visit: Yes (10) Knee effusion, right Status: Acute Current Visit: Yes (11) Type 2 diabetes mellitus Status: Chronic Current Visit: No (12) Chronic back pain Status: Chronic Current Visit: No (13) Hypertension Status: Chronic Current Visit: No - Allergies/Procedures Done in Hospital Allergies/Adverse Reactions: Allergies morphine Allergy (Verified 02/01/19 02:39) headaches pt states gets very bad headaches from morphine fentanyl Adverse Reaction (Verified 02/01/19 02:39) Pt didn't like how it made him feel PT STATES HE DOES NOT LIKE HOW IT MAKES HIM FEEL. ketorolac [From Toradol] Adverse Reaction (Verified 02/01/19 08:01) real sluggish Procedures: Transesophageal Echo, - - Knee aspiration, I&D, debridement of hand, multiple wound washouts. - Type of Care/Length of Stay Estimated LOS: Convalescent Care Less Than 30 days Type of Care Needed: Skilled Rehab Potential: Fair Prognosis: Fair - Additional Orders/Day of Discharge Additional Orders: See paper order for wound change orders. H&P will serve as current which was dated: 02/01/19 Day of Discharge: 02/16/19 - Dietary and Speech Recommendations Dietitian Recommendations/Changes: Recommend PHOTO BOOTH OPERATOR evaluation as indicated. Would benefit from outpatient [facility] if interested at time of discharge. - Follow Up Care Primary Care Physician: Guido Miller MD [Primary Care Provider] - Please follow up with your Primary Care Physician in: 1 week Please Follow Up With: Eamon Cherry MD - infectious disease When: As directed Please Follow Up With: Segundo Booth MD - pulmonology When: 2 weeks Please Follow Up With: Hi Marroquin MD - Orthopedics When: 2 weeks Please Follow Up With: Edmond Rankin MD - Plastic surgery
[2019-02-16 10:28] VITALS: BP 139/72; PULSE 72
[2019-02-16] MEDS: Metoprolol Tartrate 25 MG Tablet PO (10:28)
[2019-02-16] MEDS: Enoxaparin 40 MG/0.4 ML Syringe SC (10:29)
[2019-02-16] MEDS: Pantoprazole Sodium 40 MG Tablet PO (10:44)
[2019-02-16] MEDS: Lisinopril 20 MG Tablet PO (10:44)
[2019-02-16] MEDS: Sertraline 50 MG Tablet PO (10:44)
[2019-02-16] MEDS: NIFEdipine 30 MG Tablet PO (10:44)
[2019-02-16] MEDS: diazePAM 5 MG Tablet PO ×2 (10:49→15:18)
--- NOTE | 2019-02-16 10:51 | CASEMGMT ---
MATTHEW called [facility] and Soraya was not available so MATTHEW left message with fuel manager Nic and she will let Soraya know. Arely VILLARREAL MANAGER DIESEL
[2019-02-16 12:01] LABS: Bedside Glucose 174 mg/dL (70-110)
[2019-02-16] MEDS: Mag Hydrox/Al Hydrox/Simeth 30 ML UDC PO (15:19)
--- NOTE | 2019-02-16 15:26 | CASEMGMT ---
[facility] called and they will picking table worker patient at 330 now. MATTHEW called Soraya at [facility] to let her know. She was not available so MATTHEW left a message with Josef the clerical receptionist. Plan: d/c to [facility] under skilled level of care on a convalescent stay. [facility] transported him via cot. Arely VILLARREAL MSW
[2019-02-16 15:30] VITALS: BP 139/68; PULSE 82; RESP 16; TEMP 36.9; O2SAT 100
--- NOTE | 2019-02-16 16:06 | NURSING ---
wig sales consultant called out and saying that pt mad about getting back to bed for squad transport and throwing things in room. when went to room and confronted pt saying that they all lie. i threw my toilet paper on my bed not at them and im hurting! pt informed that will not micheline behaviour like this and that needs to not throw things. pt sulking and ems in to take pt to ecf. dc dose of iv dilaudid given and picc line flushed. all belongings packed and ready. pt wanting to sit on bedpan whole way up in squad on cart even though just finished going. instructed pt that squad has no facilities to empty and that would be ok unless needs in an emergent situation. report called to ecf with no questions voiced
== END 2019-02-16 16:04 | disposition skilled nursing facility (03) | DRG 710 ==
LOC: ED 02:55 → MS2 07:01 → PCU 02-02 08:24
PROVIDERS: Anesthesiology; Family Medicine; Hospitalist; Internal Medicine Infectious Disease; Nurse Practitioner Family; Physician Assistant; Specialist; Surgery; Admitting Provider Internal Medicine; Emergency Provider Emergency Medicine; Family Provider Internal Medicine; PCP Internal Medicine; Visit Provider Internal Medicine
PROC: 0L980ZZ Drainage of Left Hand Tendon, Open Approach (ICD-10-PCS; principal; 2019-02-02 15:20)
PROC: 0JBK0ZZ Excision of Left Hand Subcutaneous Tissue and Fascia, Open Approach (ICD-10-PCS; principal; 2019-02-06 12:20)
PROC: 0DJD8ZZ Inspection of Lower Intestinal Tract, Via Natural or Artificial Opening Endoscopic (ICD-10-PCS; CPT 45378; principal; 2019-02-07 11:55)
DX: A41.01 Sepsis due to Methicillin susceptible Staphylococcus aureus (principal); R65.20 Severe sepsis without septic shock; E11.628 Type 2 diabetes mellitus with other skin complications; E11.65 Type 2 diabetes mellitus with hyperglycemia; L03.114 Cellulitis of left upper limb; E87.6 Hypokalemia; M65.842 Other synovitis and tenosynovitis, left hand; M48.061 Spinal stenosis, lumbar region without neurogenic claudication; M48.07 Spinal stenosis, lumbosacral region; L02.512 Cutaneous abscess of left hand; K64.8 Other hemorrhoids; K63.5 Polyp of colon; D50.9 Iron deficiency anemia, unspecified; E43 Unspecified severe protein-calorie malnutrition; I76 Septic arterial embolism; I33.0 Acute and subacute infective endocarditis; I26.90 Septic pulmonary embolism without acute cor pulmonale; Z68.1 Body mass index [BMI] 19.9 or less, adult; G89.29 Other chronic pain; M79.89 Other specified soft tissue disorders; M54.9 Dorsalgia, unspecified; B18.2 Chronic viral hepatitis C; M02.361 Reiter's disease, right knee; E78.5 Hyperlipidemia, unspecified; Z79.4 Long term (current) use of insulin; Z87.891 Personal history of nicotine dependence; I10 Essential (primary) hypertension; E11.621 Type 2 diabetes mellitus with foot ulcer; L97.529 Non-pressure chronic ulcer of other part of left foot with unspecified severity
CPT/HCPCS: 36415; 36569; 71045; 71260; 72158; 73130; 73200; 73564; 74177; 80048; 80053; 80061; 80076; 80307; 81001; 82009; 82274; 82962; 83036; 83605; 83690; 83735; 83880; 83930; 84100; 84134; 84165; 84166; 84443; 84550; 85025; 85027; 85610; 85652; 85730; 86140; 86703; 86704; 86705; 86706; 86708; 86709; 86803; 87015; 87040; 87070; 87075; 87077; 87086; 87088; 87102; 87106; 87116; 87149; 87176; 87186; 87205; 87206; 87340; 87493; 87522; 87640; 88304; 88305; 88312; 88342; 89050; 89051; 89060; 92526; 92610; 92611; 93005; 93306; 93312; 93320; 93325; 94640; 97110; 97116; 97162; 97166; 97530; 97802; 99285; 99406; A9575; J7030; J7040; J7120; Q9967; A4216; J1940; J2405

== ENCOUNTER 2019-03-17 23:42 | Emergency (ER) | payer MEDICAID, SELFPAY ==
[2019-03-17 13:48] VITALS: BMI 18.7
[2019-03-17 23:43] VITALS: BP 150/93; PULSE 107; RESP 18; TEMP 36.3; O2SAT 99; BMI 18.1
[2019-03-18] MEDS: HYDROmorphone 1 MG/ML Syringe 0.5 MG IV (00:23)
[2019-03-18] MEDS: 0.9% Normal Saline 1,000 ML 1000 ML IV (00:23)
[2019-03-18] MEDS: Ondansetron 4 MG/2 ML Vial IV (00:23)
--- NOTE | 2019-03-18 00:32 | ED.VISSUMM ---
- ER Visit Summary Date of Service: 03/18/19 Chief Complaint: Abdominal pain History of Present Illness: The patient is a 53 M who presents with abdominal pain vomiting and one episode of diarrhea. Symptoms began this morning. Stated constant. He notes an aching sharp periumbilical pain. He has had gallstone pancreatitis. He is a cholecystectomy. Chronic pain in the abdomen. Also has a history of a recent thumb infection she had surgery with Dr. Rankin and he states he is now will be following up in [place]. He is a diabetic. Physical Examination: Afebrile vital signs are stable Gen: Well-nourished well-developed patient is rolling around rubbing his right flank. Head: Normocephalic atraumatic Eyes: Perrl EOMI ENT: TMs clear no rhinorrhea moist mucous membranes Neck: Supple no lymphadenopathy no JVD nontender CVS: Regular rate rhythm no murmurs normal S1-S2 Respiratory: No distress clear to auscultation bilaterally chest nontender Abdomen: Soft generalized tenderness without guarding or rebound nondistended normal bowel sounds no masses Back: Nontender Extremity: Nontender no edema Skin: Normal color no rash Neuro: alert orientated ?3 CN II-XII intact normal strength sensation reflexes gait cerebellar Psych: Patient appears in pain but persistently asking for pain medication without wanting to give a history Test Results: Basic labs are essentially negative except for a chronically elevated alk phos and a minimally elevated AST ALT. Emergency Department Course and Treatment: Patient received IV fluids. Has had no further vomiting after Zofran. He states he got no relief with Dilaudid was something different. As he has had vomiting and one episode of diarrhea probably gastroenteritis. We will treat him with Bentyl as well as antiemetics at home. As soon as Mr. West asked me if he has something else for pain and I said yes he is next question is why am I not giving him something for pain. Patient was informed he needs to listen to the answers to the questions that he is asking because I have already addressed that question. This is a reoccurring theme in the patient's care. Impression: 1. Gastroenteritis 2. Abdominal pain This note was generated with [employer] software. It may contain incorrect words, spelling, and punctuation that were not noted in review of the chart prior to signing ED Disposition - Plan for ED Patient: Disposition: Home or Assisted Living Instructions: ED Gastroenteritis Viral Prescriptions: Ondansetron [Zofran Odt] 4 mg PO Q6H PRN PRN #10 tab PRN Reason: Nausea Dicyclomine HCl [Bentyl] 20 mg PO TIDAC #20 cap Referrals: Guido Miller MD [Primary Care Provider] - 3-5 Days if not improving
[2019-03-18 00:36] LABS: Absolute Lymphocyte Count 1.34 X10^3/ul (0.83-4.51); Basophil# 0.02 X10^3/uL; Basophil% 0.3 % (0-1); Eosinophils% 6.3 % (0-5); Hematocrit 34.8 % (40-54); Hemoglobin 11.9 g/dl (13.0-16.5); Lymphocyte # 1.34 X10^3/ul (4.0); Mean Corp Hgb Conc 34.2 g/gl (32-36); Mean Corpuscular Hgb 31.7 pg (27.0-32.0); Mean Corpuscular Volume 92.8 fL (80-94); Mean Platelet Vol. 11.3 fl (6.2-12.0); Monocyte# 0.58 X10^3/uL; Monocyte% 9.1 % (0-10); Neutrophil # 4.02 X10^3/uL (2.7-7.7); Neutrophil % 62.8 % (47-70); POSITIVE COUNT NO; POSITIVE DIFFERENTIAL NO; POSITIVE MORPHOLOGY NO; Platelet Count 165 K/mm3 (150-450); RBC Distribution Width CV 14.3 % (11.6-14.6); Red Blood Count 3.75 M/mm3 (4.6-6.2); White Blood Count 6.4 K/mm3 (4.4-11.0)
[2019-03-18 01:09] LABS: AST(SGOT) 82 U/L (15-37); Alanine Aminotransfer ALT/SGPT 82 U/L (16-61); Albumin, Serum 3.1 g/dL (3.2-5.0); Alkaline Phosphatase 120 U/L (45-117); Anion Gap 3 (5-15); BUN 7 mg/dL (7-18); BUN/Creat Ratio 8.4 RATIO (10-20); Bilirubin, Direct 0.16 mg/dL (0.00-0.30); Chloride 107 mmol/L (98-107); Creatinine, Serum 0.84 mg/dL (0.70-1.30); EST Glomerular Filtration Rate 102 mL/min (>60); Est Glom Filt Rate - Afr Amer 124 mL/min (>60); Estimated Creatinine Clearance 90.65 ml/min; Globulin 6.8 g/dL (2.2-4.2); Glucose 309 mg/dL (74-106); Lipase 260 U/L (73-393); Potassium 4.1 mmol/L (3.5-5.1); Protein, Total 9.9 g/dL (6.4-8.2); Sodium Level 137 mmol/L (136-145)
[2019-03-18] MEDS: Dicyclomine 20 MG/2 ML Vial IM (01:38)
--- NOTE | 2019-03-18 01:53 | ED.RN ---
SHOT TIME OBSERVED FOR 15 MIN. NO ADVERSE REACTION NOTED AT THIS TIME.
[2019-03-18 01:54] VITALS: BP 148/89; PULSE 80; RESP 16; O2SAT 97
== END 2019-03-18 01:54 | disposition home or self-care (01) ==
PROVIDERS: Emergency Provider Emergency Medicine; Family Provider Internal Medicine; PCP Internal Medicine
DX: K52.9 Noninfective gastroenteritis and colitis, unspecified (principal); R10.84 Generalized abdominal pain; E11.9 Type 2 diabetes mellitus without complications; I10 Essential (primary) hypertension
CPT/HCPCS: 80048; 80076; 83690; 85025; 96361; 96372; 96374; 96375; 99283; J7030; A4216; J2405

== ENCOUNTER 2019-03-20 07:37 | Inpatient (IN) | payer MEDICAID, SELFPAY ==
[2019-03-20] VITALS (7 sets, daily range): BP systolic 83–168; BP diastolic 51–104; PULSE 79–95; RESP 12–21; TEMP 36.7–37; O2SAT 99–100; BMI 17.4; BMI 17.9
[2019-03-20 07:50] LABS: Bedside Glucose 323 mg/dL (70-110)
--- NOTE | 2019-03-20 07:56 | EKG12_ITS ---
Test Reason : FALL Blood Pressure : / mmHG Vent. Rate : 088 BPM Atrial Rate : 088 BPM P-R Int : 118 ms QRS Dur : 072 ms QT Int : 392 ms P-R-T Axes : 085 -25 071 degrees QTc Int : 474 ms Normal sinus rhythm with sinus arrhythmia Low voltage QRS (Limb Leads) Confirmed by ARCADIO WILKES, NANCIE ([id number]), newspaper photo editor WILLIAM VALDEZ ([id number]) on 03/22/2019 9:19:12 AM Referred By: Gabriel Zaidi Confirmed By:NANCIE ERVIN MD
--- NOTE | 2019-03-20 08:03 | ED.DCSUM_ITS ---
- ER Visit Summary Date of Service: 03/20/19 Chief Complaint: [] Frequent falls back pain knee pain unable to eat left hand infection diabetes MRSA History of Present Illness: The patient is a 53 M [] patient has multiple complaints he indicates basically has insulin pen diabetes has been unable to eat his blood sugars been high in the 370 range, he has a left hand infection from what is described as MRSA he had surgery by Dr. laurent before the above he has follow-up surgery or procedures sometime I believe next week, indicates for the last few days he is fallen multiple times possibly 5 times a day he is not sure why he fell the weakness, he injured his back and both knees he cannot stand on his feet he complains of back pain and knee pain nausea generalized weakness presents for evaluation his bowel bladder habits been normal general he is a very poor historian cannot provide much details, he believes he is on antibiotic with does not know which one Physical Examination: [] Vital signs are unremarkable General, no distress resting comfortably HEENT is generally unremarkable The neck is supple no adenopathy Cardiovascular, regular rate and rhythm Lungs, clear bilateral Abdomen, soft nontender Extensive contusion to the back this T-spine and higher lumbar spine, there is some skin abrasions Extremities, no clubbing cyanosis or edema, he has abrasions and bruises to both knees he has decreased range of motion to the knees because of the pain no obvious instability deformity, the left hand he of the hand is postoperative incisions are in place multiple, the thumb is actually quite brown in appearance compared to the rest of his skin it is very cold he has severe pain to any type palpation he cannot move the thumb there is an odor coming from the wound, he indicates he is on antibiotics, the thumb looks avascular he indicates that the thumb has had this appearance and condition for some time and that is why he needs to follow-up appointments Neurologic, awake alert answering questions appropriately moving all 4 extremities Test Results: [] Emergency Department Course and Treatment: [] All the above screening labs IV fluids x-rays, the patient's x-ray left hand no changes from month ago that could relate to arthritis disuse or infection see the radiology report, the rest of the screening x-rays were generally unremarkable see those reports, the screening labs are also unremarkable, given all the above the diabetes that hand infection in the falling immediately function at home of [facility] see the patient for the management and other treatment options and also to coordinate ongoing care for the hand, please note I would not start him on antibiotics because per the patient's history he was on antibiotics and this will be determined on inpatient basis Treatment Plan: [] Disposition: [] Admit stable Impression: [] Recurrent falls, unable to walk, left hand infection, left thumb necrosis, diabetes, failed outpatient therapy This note was generated with [employer] dictation software. It may contain incorrect words, spelling, and punctuation that were not noted in review of the chart prior to signing ED Disposition - Plan for ED Patient: Referrals: Guido Miller MD [Primary Care Provider] -
[2019-03-20] MEDS: Ondansetron 4 MG/2 ML Vial IV ×2 (08:09→11:34)
[2019-03-20] MEDS: HYDROmorphone 0.5 MG/0.5 ML SYRINGE IV ×2 (08:09→11:34)
[2019-03-20 08:22] LABS: ALB/GLOB Ratio 0.5 RATIO (0.9-2.4); AST(SGOT) 59 U/L (15-37); Alanine Aminotransfer ALT/SGPT 72 U/L (16-61); Albumin, Serum 3.2 g/dL (3.2-5.0); Alkaline Phosphatase 113 U/L (45-117); Anion Gap 10 (5-15); BUN 23 mg/dL (7-18); BUN/Creat Ratio 23.6 RATIO (10-20); Calcium,Total 9.2 mg/dL (8.5-10.1); Chloride 98 mmol/L (98-107); Creatinine, Serum 0.98 mg/dL (0.70-1.30); EST Glomerular Filtration Rate 86 mL/min (>60); Est Glom Filt Rate - Afr Amer 103 mL/min (>60); Estimated Creatinine Clearance 74.95 ml/min; Globulin 6.5 g/dL (2.2-4.2); Glucose 291 mg/dL (74-106); Potassium 3.3 mmol/L (3.5-5.1); Protein, Total 9.7 g/dL (6.4-8.2); Sodium Level 133 mmol/L (136-145)
[2019-03-20 08:25] LABS: Lactic Acid 2.8 mmol/L (0.4-2.0)
--- NOTE | 2019-03-20 09:25 | RAD_ITS ---
We are attempting to reach an attending provider to discuss findings. An addendum with communication details will be sent when the communication is complete. STUDY: X-RAY - LEFT HAND REASON FOR EXAM: Male, 53 years old. Infection. TECHNIQUE: 3 view(s) of the hand. COMPARISON: February 01, 2019. FINDINGS: No acute fracture. No chuy dislocation. Subluxation at the left first metacarpal phalangeal joint. Mild joint space narrowing at the first metacarpophalangeal joint and interphalangeal joint. Soft tissue swelling. Stable punctate soft tissue calcification adjacent the radius. RAD/Hand Min 3 Views IMPRESSION: Left first MCP joint subluxation with joint space narrowing (interval change from study dated February 01, 2019; possible trauma or infection) Soft tissue swelling predominating at the radial aspect of the hand Stable punctate soft tissue calcification adjacent the radius Electronically Signed: Gabriel Collier DO at 9:56 EDT Tel , Service support ,
--- NOTE | 2019-03-20 09:25 | RAD_ITS ---
STUDY: X-RAY - LUMBAR SPINE REASON FOR EXAM: Male, 53 years old. Fall. Pain. TECHNIQUE: 3 view(s) of the lumbar spine were obtained. COMPARISON: September 29, 2018. FINDINGS: No acute fracture, dislocation or osseous destruction. No significant scoliosis. Lumbar straightening. Endplate spondylosis predominating at L5-S1. Vacuum phenomenon. Neural foraminal narrowing at L5-S1. Facet joint arthrosis at L4-5 and L5-S1. No significant soft tissue swelling. Left upper quadrant calcifications. RAD/Lumbar Spine 2 or 3 Views IMPRESSION: Lumbar spine intact Degenerative changes, as above Left upper quadrant calcifications Electronically Signed: Gabriel Collier DO at 10:11 EDT Tel , Service support ,
--- NOTE | 2019-03-20 09:25 | RAD_ITS ---
STUDY: X-RAY - LEFT KNEE REASON FOR EXAM: Male, 53 years old. Pain. TECHNIQUE: 2 view(s) of the knee. COMPARISON: January 29, 2018. FINDINGS: Postoperative changes at the left patella. Unchanged surgical hardware with fractures of the superior and inferior components. No acute fracture, dislocation or osseous destruction. Patellofemoral joint space narrowing. Osteopenia. Quadriceps tendon enthesophyte. Patellar tendon enthesophyte. Moderate left knee soft tissue swelling. Small-volume joint effusion. Vascular calcifications. RAD/Knee 1 or 2 Views IMPRESSION: Left knee swelling with small volume joint effusion Left patellar postsurgical fixation with chronic hardware fractures Patellofemoral joint space narrowing Electronically Signed: Gabriel Collier DO at 10:13 EDT Tel , Service support ,
--- NOTE | 2019-03-20 09:25 | RAD_ITS ---
STUDY: X-RAY - RIGHT KNEE REASON FOR EXAM: Male, 53 years old. Pain. TECHNIQUE: 2 view(s) of the knee. COMPARISON: February 02, 2019. FINDINGS: No acute fracture, dislocation or osseous destruction. Quadriceps tendon enthesophyte. Patellar tendon enthesophyte. Osteopenia. Small volume joint effusion. No significant soft tissue swelling. Vascular calcifications. RAD/Knee 1 or 2 Views IMPRESSION: Right knee intact with degenerative changes Small volume joint effusion Electronically Signed: Gabriel Collier DO at 10:10 EDT Tel , Service support ,
--- NOTE | 2019-03-20 09:25 | RAD_ITS ---
STUDY: X-RAY CHEST REASON FOR EXAM: Male, 53 years old. Shortness of breath. TECHNIQUE: Single AP portable view of the chest. COMPARISON: February 03, 2019. FINDINGS: Cardiac silhouette unremarkable. Pulmonary vascularity unremarkable. Aorta unremarkable. Previous lung nodules not appreciated on the current examination. No focal patchy airspace opacities. No pleural effusions. Upper abdomen unremarkable. Osseous structures intact. No pneumothorax. Degenerative changes at the shoulders. RAD/Chest 1 View (Portable) IMPRESSION: Previous lung nodules no longer appreciated No new focal patchy airspace opacities or pleural effusions Electronically Signed: Gabriel Collier DO at 10:15 EDT Tel , Service support ,
--- NOTE | 2019-03-20 09:25 | RAD_ITS ---
STUDY: X-RAY - THORACIC SPINE REASON FOR EXAM: Male, 53 years old. Fall. TECHNIQUE: 3 view(s) of the thoracic spine were obtained. COMPARISON: MRI dated November 16, 2018. FINDINGS: No acute fracture, dislocation or osseous destruction. Minimal spinal curvature. Thoracic kyphosis preserved. Mild endplate spondylosis. No spondylolisthesis. Small anterior osteophytes. No significant soft tissue swelling. Left upper quadrant calcifications. RAD/Thoracic Spine 2 Views IMPRESSION: Thoracic spine intact Mild degenerative changes Left upper quadrant calcifications Electronically Signed: Gabriel Collier DO at 10:17 EDT Tel , Service support ,
--- NOTE | 2019-03-20 09:54 | ED.RN ---
INQUIRED ABOUT ADDITIONAL BLOOD WORK, CULTURES AND ANTIBIOTICS FROM . DENIED NEED FOR ANY OF THEM AT THIS TIME.
--- NOTE | 2019-03-20 09:59 | ED.RN ---
DR ARROYO CALLED TO SEE IF I COULD CALL LAB TO SEE WHY THERE WERE NO RESULTS FOR THE CBC YET FOR THIS PATIENT; PER JEROMY IT WAS NOT ORDERED
[2019-03-20 10:19] LABS: Absolute Lymphocyte Count 2.64 X10^3/ul (0.83-4.51); Absolute Neutrophil Count 5.1 X10^3/uL (2.0-7.7); Basophil# 0.02 X10^3/uL; Basophil% 0.2 % (0-1); Eosinophil# 0.04 X10^3/uL; Eosinophils% 0.5 % (0-5); Hematocrit 34.8 % (40-54); Hemoglobin 12.2 g/dl (13.0-16.5); Lymphocyte # 2.64 X10^3/ul (4.0); Lymphocyte % 30.2 % (19-41); Mean Corp Hgb Conc 35.1 g/gl (32-36); Mean Corpuscular Hgb 31.7 pg (27.0-32.0); Mean Corpuscular Volume 90.4 fL (80-94); Mean Platelet Vol. 11.3 fl (6.2-12.0); Monocyte# 0.91 X10^3/uL; Monocyte% 10.4 % (0-10); Neutrophil # 5.09 X10^3/uL (2.7-7.7); Neutrophil % 58.2 % (47-70); Platelet Count 179 K/mm3 (150-450); RBC Distribution Width CV 13.9 % (11.6-14.6); RBC Distribution Width SD 46.1 fl (35.1-43.9); Red Blood Count 3.85 M/mm3 (4.6-6.2); White Blood Count 8.7 K/mm3 (4.4-11.0)
[2019-03-20 10:20] LABS: POSITIVE COUNT NO; POSITIVE DIFFERENTIAL NO; POSITIVE MORPHOLOGY NO
[2019-03-20] MEDS: Insulin Lispro 100 UNIT/ML INSULN.PEN SC ×3 (12:51→16:48)
[2019-03-20] MEDS: Gabapentin 300 MG Capsule PO ×2 (12:52→16:48)
[2019-03-20 12:56] LABS: Bedside Glucose 437 mg/dL (70-110)
[2019-03-20] MEDS: oxyCODONE 5 MG Tablet PO ×2 (13:37→20:54)
--- NOTE | 2019-03-20 13:39 | PCM.HP.STD ---
Problem List (1) Failure to thrive Status: Acute Qualifiers: Failure to thrive age range: in adult Qualified Code(s): R62.7 - Adult failure to thrive History of Present Illness Date of Admission: 03/20/19 Chief Complaint: falls The patient is a 53 year old M has been falling the past few days. States that when he has been standing, he gets woozy, then gets weak, and falls. No loss off consciousness. Presented to the ED at his 's insistence. Patient had left hand cellulitis. He underwent debridement for necrotizing abscess of the left thumb, left palm, dorsum. Since then, he has had pain and been unable to move his left thumb (left-hand dominant). 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 ketorolac [From Toradol] Adverse Reaction (Verified 03/17/19 23:45) real sluggish Home Medications: Ambulatory Orders Medication Instructions Recorded Atorvastatin Calcium 40 mg PO DAILY 11/14/18 Ceftriaxone 2 gm IV Q24 38 Days #38 vial 02/15/19 Gabapentin [Neurontin] 300 mg PO TIDCM #90 capsule 02/15/19 Insulin Glargine [Lantus SoloStar 18 units SC DAILY #1 pen 02/15/19 Pen] Insulin Lispro [Humalog KwikPen] 5 unit SC 1700 insuln.pen 02/15/19 Insulin Lispro [Humalog KwikPen] 6 unit SC 0700,1100 insuln.pen 02/15/19 Insulin Lispro [Humalog KwikPen] See Protocol SC TIDAC insuln.pen 02/15/19 Iron Polysaccharide Complex 150 mg PO DAILYCM #30 capsule 02/15/19 [Ferrex 150] Lisinopril [Zestril] 20 mg PO DAILY #30 tablet 02/15/19 Mag Hydrox/Al Hydrox/Simeth 30 ml PO Q6H PRN PRN udc 02/15/19 [Mylanta II] Magnesium Oxide [Mag-Ox 400] 400 mg PO DAILYCM #30 tablet 02/15/19 Metoprolol Tartrate [Lopressor 25 mg PO BID #60 tablet 02/15/19 (beta jass)] Nifedipine [Procardia Xl] 30 mg PO DAILY #30 tab.er.24 02/15/19 Pantoprazole Sodium [Protonix] 40 mg PO DAILY #30 tablet 02/15/19 Sertraline HCl [Zoloft] 50 mg PO DAILY #30 tablet 02/15/19 Gauze Bandage [Gauze Pads] 3 ea TP .QDAILY #90 bandage 02/16/19 Polyhexam Biguan/Gauze Bandage 1 ea TP .QDAILY #30 bandage 02/16/19 [Kerlix Amd Bandage 0.2% Roll] Silver/Hydrocolloid Dressing 1 ea TP .QDAILY #30 bandage 02/16/19 [Aquacel-Ag W-Hydrofiber Dress] nutritional therapy glucose 1 ea PO .achs #1 unit 03/17/19 intolerance,lactose-free,soy oral liquid Dicyclomine HCl [Bentyl] 20 mg PO TIDAC #20 cap 03/18/19 Ondansetron [Zofran Odt] 4 mg PO Q6H PRN PRN #10 tab 03/18/19 Surgical History: Surgical History (Last Reviewed 03/20/19 @ 13:47 by Gabriel Zaidi DO) History of appendectomy Z90.49 S/P laparoscopic cholecystectomy Z90.49 Surgical History: appendectomy, cholecystectomy, - - Incision and drainage with irrigation and excisional debridement complex necrotizing diabetic abscesses left thumb and thenar eminence into thenar space and dorsum hand over first webspace. Psychiatric History: No pertinent psych hx Lives: Spouse/ Significant Other Smoking Status: Former smoker - *Family History Maternal Family History: Family History (Last Reviewed 03/20/19 @ 13:47 by Gabriel Zaidi DO) Father Diabetes Mother Diabetes History Items: Diabetes Paternal Family History: Family History (Last Reviewed 03/20/19 @ 13:47 by Gabriel Zaidi DO) Father Diabetes Mother Diabetes History Items: Heart Disease - CAD s/p CABG history. Patient notes that his paternal grandmother had diabetes. Review of Systems Constitutional: Reports: Malaise, Weakness. Denies: Anorexia, Chills, Fever Eyes: Denies: Blurred vision, Double vision HEENT: Denies: Head Aches, Sinus Congestion, Sinus Drainage Cardiovascular: Denies: Chest Pain, Palpitations Respiratory: Denies: Cough, Shortness of breath at rest, Sputum production Gastrointestinal: Reports: Diarrhea, Nausea, Vomiting. Denies: Abdominal Pain Genitourinary: Denies: Dysuria Musculoskeletal: Denies: Joint Pain, Joint Tenderness Skin: Denies: Dryness, Jaundice Neurological: Reports: Balance problems, Focal weakness, Numbness. Denies: Blurred vision, Double vision Psychiatric: Denies: Anxiety, Depression Hematologic/ Lymphatic: Denies: Easy Bruising, Easy Bleeding, Hx of blood clot Comment: A 10 point review of systems were negative except as mentioned in the history of present illness and the other review of systems. VTE Information - Inpt Only VTE Present on Admission: No VTE Mechan Device Prophylaxis: None VTE Pharm Prophylaxis ordered?: No Reason prophylaxis not ordered:: Procedure Not Indicated Patient Problems: Active and Suspected Problems (Last Reviewed 03/17/19 @ 13:51 by Alva Gonzáles) Failure to thrive (Acute) - Physical Exam General: Alert, No apparent distress HEENT: Atraumatic, Normocephalic Oral: Moist Mucosa, No Gingival or Mucosal Lesions/ Ulcerations Neck: No Nodes, Thyroid Normal Size and Texture Lungs: Clear to auscultation, Normal air movement, No rhonchi, No wheeze Cardiovascular: Regular rate, Regular Rhythm, Normal S1, Normal S2, No murmurs Abdomen: Bowel Sounds Present, Soft, Non Tender, Non-Distended, No Hepato-splenomegaly Extremities: No edema, No Calf Tenderness Skin: - - open healing wound around left thumb, no purulence. Musculoskeletal: Cachexia, Muscle Wasting, - Psych/Mental Status: Normal Affect, Appropriate Vital Signs Temp Pulse Resp BP Pulse Ox 36.8 C 85 18 145/98 H 100 03/20/19 12:08 03/20/19 12:08 03/20/19 12:08 03/20/19 12:08 03/20/19 12:08 Oxygen Delivery Method Room Air Weight: 61.5 kg Body Mass Index (BMI) 17.9 Finger Stick Blood Glucose 323 Laboratory Tests Past 24 Hrs 03/20/19 03/20/19 03/20/19 07:45 07:45 07:45 WBC RBC Hgb Hct MCV MCH MCHC RDW RDW Differential Plt Count MPV Immature Gran % (Auto) Neut % (Auto) Lymph % (Auto) Bond % (Auto) Eos % (Auto) Baso % (Auto) Absolute Neuts (auto) Absolute Lymphs (auto) Total Counted Sodium 133 L Potassium 3.3 L Chloride 98 Carbon Dioxide 25.0 Anion Gap 10 BUN 23 H Creatinine 0.98 Estim Creat Clear Calc 74.95 Est GFR (MDRD) Af Amer 103 Est GFR (MDRD) Non-Af 86 BUN/Creatinine Ratio 23.6 H Glucose 291 H Lactic Acid 2.8 H Calcium 9.2 Total Bilirubin 0.50 AST 59 H ALT 72 H Alkaline Phosphatase 113 Troponin I 0.033 Total Protein 9.7 H Albumin 3.2 Globulin 6.5 H Albumin/Globulin Ratio 0.5 L Acetone Level NEGATIVE 03/20/19 07:45 WBC 8.7 RBC 3.85 L Hgb 12.2 L Hct 34.8 L MCV 90.4 MCH 31.7 MCHC 35.1 RDW 13.9 RDW Differential 46.1 H Plt Count 179 MPV 11.3 Immature Gran % (Auto) 0.500 Neut % (Auto) 58.2 Lymph % (Auto) 30.2 Bond % (Auto) 10.4 H Eos % (Auto) 0.5 Baso % (Auto) 0.2 Absolute Neuts (auto) 5.1 Absolute Lymphs (auto) 2.64 Total Counted Not Reportable Sodium Potassium Chloride Carbon Dioxide Anion Gap BUN Creatinine Estim Creat Clear Calc Est GFR (MDRD) Af Amer Est GFR (MDRD) Non-Af BUN/Creatinine Ratio Glucose Lactic Acid Calcium Total Bilirubin AST ALT Alkaline Phosphatase Troponin I Total Protein Albumin Globulin Albumin/Globulin Ratio Acetone Level POC Glucose 03/20/19 03/20/19 12:28 07:42 POC Glucose 437 H 323 H Assessment/Plan All Active Problems (Last Reviewed 03/17/19 @ 13:51 by Alva Gonzáles) Failure to thrive (Acute) Necrotizing soft tissue infection (Acute) Abscess of dorsum of left hand (Acute) Abscess of bursa, left hand (Acute) Abscess of thumb, left (Acute) Suppurative tenosynovitis of flexor tendon of left hand (Acute) Sepsis (Acute) Cellulitis (Acute) Dehydration (Acute) Hypokalemia (Acute) MSSA bacteremia (Acute) Knee effusion, right (Acute) Knee pain, right (Acute) Acute pancreatitis (Resolved) Gastroenteritis (Resolved) 1. Failure to thrive check orthostatic vitals IVF 2. Left hand cellulitis, abscess, tenosynovitis +MSSA on CTX given change of 1st MCP on XRay, will consult Dr. Rankin wound care check cultures 3. 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 DM2 uncontrolled continue basal, prandial and SS insulin 5. VTE prophylaxis: observation status at this time, therefore not indicated. Code Visit OBSV E&M: 93421 Initial observation care L2
--- NOTE | 2019-03-20 13:47 | HP.PCM_ITS ---
Problem List (1) Failure to thrive Status: Acute Qualifiers: Failure to thrive age range: in adult Qualified Code(s): R62.7 - Adult failure to thrive History of Present Illness Date of Admission: 03/20/19 Chief Complaint: falls The patient is a 53 year old M has been falling the past few days. States that when he has been standing, he gets woozy, then gets weak, and falls. No loss off consciousness. Presented to the ED at his 's insistence. Patient had left hand cellulitis. He underwent debridement for necrotizing abscess of the left thumb, left palm, dorsum. Since then, he has had pain and been unable to move his left thumb (left-hand dominant). 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 ketorolac [From Toradol] Adverse Reaction (Verified 03/17/19 23:45) real sluggish Home Medications: Ambulatory Orders Medication Instructions Recorded Atorvastatin Calcium 40 mg PO DAILY 11/14/18 Ceftriaxone 2 gm IV Q24 38 Days #38 vial 02/15/19 Gabapentin [Neurontin] 300 mg PO TIDCM #90 capsule 02/15/19 Insulin Glargine [Lantus SoloStar 18 units SC DAILY #1 pen 02/15/19 Pen] Insulin Lispro [Humalog KwikPen] 5 unit SC 1700 insuln.pen 02/15/19 Insulin Lispro [Humalog KwikPen] 6 unit SC 0700,1100 insuln.pen 02/15/19 Insulin Lispro [Humalog KwikPen] See Protocol SC TIDAC insuln.pen 02/15/19 Iron Polysaccharide Complex 150 mg PO DAILYCM #30 capsule 02/15/19 [Ferrex 150] Lisinopril [Zestril] 20 mg PO DAILY #30 tablet 02/15/19 Mag Hydrox/Al Hydrox/Simeth 30 ml PO Q6H PRN PRN udc 02/15/19 [Mylanta II] Magnesium Oxide [Mag-Ox 400] 400 mg PO DAILYCM #30 tablet 02/15/19 Metoprolol Tartrate [Lopressor 25 mg PO BID #60 tablet 02/15/19 (beta jass)] Nifedipine [Procardia Xl] 30 mg PO DAILY #30 tab.er.24 02/15/19 Pantoprazole Sodium [Protonix] 40 mg PO DAILY #30 tablet 02/15/19 Sertraline HCl [Zoloft] 50 mg PO DAILY #30 tablet 02/15/19 Gauze Bandage [Gauze Pads] 3 ea TP .QDAILY #90 bandage 02/16/19 Polyhexam Biguan/Gauze Bandage 1 ea TP .QDAILY #30 bandage 02/16/19 [Kerlix Amd Bandage 0.2% Roll] Silver/Hydrocolloid Dressing 1 ea TP .QDAILY #30 bandage 02/16/19 [Aquacel-Ag W-Hydrofiber Dress] nutritional therapy glucose 1 ea PO .achs #1 unit 03/17/19 intolerance,lactose-free,soy oral liquid Dicyclomine HCl [Bentyl] 20 mg PO TIDAC #20 cap 03/18/19 Ondansetron [Zofran Odt] 4 mg PO Q6H PRN PRN #10 tab 03/18/19 Surgical History: Surgical History (Last Reviewed 03/20/19 @ 13:47 by Gabriel Zaidi DO) History of appendectomy Z90.49 S/P laparoscopic cholecystectomy Z90.49 Surgical History: appendectomy, cholecystectomy, - - Incision and drainage with irrigation and excisional debridement complex necrotizing diabetic abscesses left thumb and thenar eminence into thenar space and dorsum hand over first webspace. Psychiatric History: No pertinent psych hx Lives: Spouse/ Significant Other Smoking Status: Former smoker - *Family History Maternal Family History: Family History (Last Reviewed 03/20/19 @ 13:47 by Gabriel Zaidi DO) Father Diabetes Mother Diabetes History Items: Diabetes Paternal Family History: Family History (Last Reviewed 03/20/19 @ 13:47 by Gabriel Zaidi DO) Father Diabetes Mother Diabetes History Items: Heart Disease - CAD s/p CABG history. Patient notes that his paternal grandmother had diabetes. Review of Systems Constitutional: Reports: Malaise, Weakness. Denies: Anorexia, Chills, Fever Eyes: Denies: Blurred vision, Double vision HEENT: Denies: Head Aches, Sinus Congestion, Sinus Drainage Cardiovascular: Denies: Chest Pain, Palpitations Respiratory: Denies: Cough, Shortness of breath at rest, Sputum production Gastrointestinal: Reports: Diarrhea, Nausea, Vomiting. Denies: Abdominal Pain Genitourinary: Denies: Dysuria Musculoskeletal: Denies: Joint Pain, Joint Tenderness Skin: Denies: Dryness, Jaundice Neurological: Reports: Balance problems, Focal weakness, Numbness. Denies: Blurred vision, Double vision Psychiatric: Denies: Anxiety, Depression Hematologic/ Lymphatic: Denies: Easy Bruising, Easy Bleeding, Hx of blood clot Comment: A 10 point review of systems were negative except as mentioned in the history of present illness and the other review of systems. VTE Information - Inpt Only VTE Present on Admission: No VTE Mechan Device Prophylaxis: None VTE Pharm Prophylaxis ordered?: No Reason prophylaxis not ordered:: Procedure Not Indicated Patient Problems: Active and Suspected Problems (Last Reviewed 03/17/19 @ 13:51 by Alva Gonzáles) Failure to thrive (Acute) - Physical Exam General: Alert, No apparent distress HEENT: Atraumatic, Normocephalic Oral: Moist Mucosa, No Gingival or Mucosal Lesions/ Ulcerations Neck: No Nodes, Thyroid Normal Size and Texture Lungs: Clear to auscultation, Normal air movement, No rhonchi, No wheeze Cardiovascular: Regular rate, Regular Rhythm, Normal S1, Normal S2, No murmurs Abdomen: Bowel Sounds Present, Soft, Non Tender, Non-Distended, No Hepato- splenomegaly Extremities: No edema, No Calf Tenderness Skin: - - open healing wound around left thumb, no purulence. Musculoskeletal: Cachexia, Muscle Wasting, - Psych/Mental Status: Normal Affect, Appropriate Vital Signs Temp Pulse Resp BP Pulse Ox 36.8 C 85 18 145/98 H 100 03/20/19 12:08 03/20/19 12:08 03/20/19 12:08 03/20/19 12:08 03/20/19 12:08 Oxygen Delivery Method Room Air Weight: 61.5 kg Body Mass Index (BMI) 17.9 Finger Stick Blood Glucose 323 Laboratory Tests Past 24 Hrs 03/20/19 03/20/19 03/20/19 07:45 07:45 07:45 WBC RBC Hgb Hct MCV MCH MCHC RDW RDW Differential Plt Count MPV Immature Gran % (Auto) Neut % (Auto) Lymph % (Auto) Gonzales % (Auto) Eos % (Auto) Baso % (Auto) Absolute Neuts (auto) Absolute Lymphs (auto) Total Counted Sodium 133 L Potassium 3.3 L Chloride 98 Carbon Dioxide 25.0 Anion Gap 10 BUN 23 H Creatinine 0.98 Estim Creat Clear Calc 74.95 Est GFR (MDRD) Af Amer 103 Est GFR (MDRD) Non-Af 86 BUN/Creatinine Ratio 23.6 H Glucose 291 H Lactic Acid 2.8 H Calcium 9.2 Total Bilirubin 0.50 AST 59 H ALT 72 H Alkaline Phosphatase 113 Troponin I 0.033 Total Protein 9.7 H Albumin 3.2 Globulin 6.5 H Albumin/Globulin Ratio 0.5 L Acetone Level NEGATIVE 03/20/19 07:45 WBC 8.7 RBC 3.85 L Hgb 12.2 L Hct 34.8 L MCV 90.4 MCH 31.7 MCHC 35.1 RDW 13.9 RDW Differential 46.1 H Plt Count 179 MPV 11.3 Immature Gran % (Auto) 0.500 Neut % (Auto) 58.2 Lymph % (Auto) 30.2 Gonzales % (Auto) 10.4 H Eos % (Auto) 0.5 Baso % (Auto) 0.2 Absolute Neuts (auto) 5.1 Absolute Lymphs (auto) 2.64 Total Counted Not Reportable Sodium Potassium Chloride Carbon Dioxide Anion Gap BUN Creatinine Estim Creat Clear Calc Est GFR (MDRD) Af Amer Est GFR (MDRD) Non-Af BUN/Creatinine Ratio Glucose Lactic Acid Calcium Total Bilirubin AST ALT Alkaline Phosphatase Troponin I Total Protein Albumin Globulin Albumin/Globulin Ratio Acetone Level POC Glucose 03/20/19 03/20/19 12:28 07:42 POC Glucose 437 H 323 H Assessment/Plan All Active Problems (Last Reviewed 03/17/19 @ 13:51 by Alva Gonzáles) Failure to thrive (Acute) Necrotizing soft tissue infection (Acute) Abscess of dorsum of left hand (Acute) Abscess of bursa, left hand (Acute) Abscess of thumb, left (Acute) Suppurative tenosynovitis of flexor tendon of left hand (Acute) Sepsis (Acute) Cellulitis (Acute) Dehydration (Acute) Hypokalemia (Acute) MSSA bacteremia (Acute) Knee effusion, right (Acute) Knee pain, right (Acute) Acute pancreatitis (Resolved) Gastroenteritis (Resolved) 1. Failure to thrive * check orthostatic vitals * IVF 2. Left hand cellulitis, abscess, tenosynovitis * +MSSA * on CTX * given change of 1st MCP on XRay, will consult Dr. Rankin * wound care * check cultures 3. Mitral valve endocarditis * MSSA * on CTX 4. DM2 * uncontrolled * continue basal, prandial and SS insulin 5. VTE prophylaxis: * observation status at this time, therefore not indicated. Code Visit OBSV E&M: [id number] Initial observation care L2
[2019-03-20 13:48] LABS: Bacteria 0 SEEN /hpf (None Seen); Mucous, Urine 0 SEEN /hpf (<or=2+); Red Blood Cells-Urine 0 SEEN /hpf (0-5); Squamous Epithelial Cells - UA 0 SEEN /hpf (0-5); White Blood Cells 0 SEEN /hpf (0-5)
[2019-03-20 13:49] LABS: Color, Urine Yellow (Yellow); Glucose, Dipstick 1000 mg/dl (Normal); Ketone-Dipstick Negative (Negative); Leukocyte Esterase-Dipstick Negative /ul (Negative); Nitrite-Dipstick Negative (Negative); Occult Blood-Urine Negative /ul (Negative); Protein-Dipstick 100 mg/dl (Negative); Specific Gravity, Urine 1.015 (1.002-1.030); Urine Bilirubin Dipstick Negative (Negative); Urine Clarity Clear (Clear); Urine Urobilinogen Normal (Normal); Urine pH 6.5 (5.0 - 8.0)
[2019-03-20] MEDS: 0.9% Normal Saline 1,000 ML 150 ML IV (15:11)
[2019-03-20] MEDS: Glucerna Shake 120 ML LIQUID PO ×2 (16:47→20:54)
[2019-03-20] MEDS: Dicyclomine 10 MG Capsule 20 MG PO (16:48)
[2019-03-20 17:00] LABS: Bedside Glucose 195 mg/dL (70-110)
[2019-03-20] MEDS: Metoprolol Tartrate 25 MG Tablet PO (21:00)
[2019-03-20] MEDS: Atorvastatin Calcium 40 MG Tablet PO (21:01)
[2019-03-20 21:46] LABS: Bedside Glucose 127 mg/dL (70-110)
[2019-03-21] VITALS (7 sets, daily range): BP systolic 99–173; BP diastolic 77–108; PULSE 65–90; RESP 16–18; TEMP 36.6–36.8; O2SAT 94–100
[2019-03-21] MEDS: oxyCODONE 5 MG Tablet PO ×6 (01:32→22:50)
--- NOTE | 2019-03-21 05:04 | NURSING ---
PT C/O OF PAIN. PT REFUSED TO TAKE THE TYLENOL SAID I WILL WAIT FOR THE OXYIR.
[2019-03-21] MEDS: Glucerna Shake 120 ML LIQUID PO ×3 (05:43→22:56)
[2019-03-21] MEDS: Dicyclomine 10 MG Capsule 20 MG PO ×2 (05:43→16:27)
[2019-03-21 06:50] LABS: Bedside Glucose 282 mg/dL (70-110)
[2019-03-21] MEDS: 0.9% Normal Saline 1,000 ML 150 ML IV (08:13)
[2019-03-21] MEDS: Magnesium Oxide 400 MG Tablet PO (08:15)
[2019-03-21] MEDS: Iron Polysaccharide Complex 150 MG CAPSULE PO (08:15)
[2019-03-21] MEDS: Gabapentin 300 MG Capsule PO ×2 (08:15→16:29)
[2019-03-21] MEDS: Insulin Lispro 100 UNIT/ML INSULN.PEN SC ×3 (08:17→16:28)
[2019-03-21] MEDS: Insulin Lispro 100 UNIT/ML INSULN.PEN 6 UNIT SC (08:18)
--- NOTE | 2019-03-21 09:22 | NURSING ---
Dr Rankin called this nurse and states he will be up around noon to see patient. will assess left hand at that time with Dr Rankin.
[2019-03-21] MEDS: Pantoprazole Sodium 40 MG Tablet PO (09:42)
[2019-03-21] MEDS: Metoprolol Tartrate 25 MG Tablet PO ×2 (09:42→22:49)
[2019-03-21] MEDS: Sertraline 50 MG Tablet PO (09:42)
[2019-03-21] MEDS: Acetaminophen 325 MG Tablet 650 MG PO ×2 (09:44→20:53)
[2019-03-21 12:36] LABS: Bedside Glucose 115 mg/dL (70-110)
--- NOTE | 2019-03-21 13:08 | PCM.CONS.GEN ---
Reason for Consult Date of Consultation: 03/21/19 Reason for Consultation: Nonhealing diabetic ulcers left hand after incision and drainage of necrotizing abscess. REFERRING PHYSICIAN: Dr. Zaidi. ATOMIC WELDER: Dr. Rankin. History of Present Illness: The patient is a 53 year old M has been falling the past few days. States that when he has been standing, he gets woozy, then gets weak, and falls. No loss off consciousness. Presented to the ED at his 's insistence. Patient was recently hospitalized last month for a severe necrotizing diabetic abscess dorsum left thumb involving extensor tendon with tenosynovitis and necrotizing diabetic abscess thenar eminence left palm extending through thenar muscles (abductor pollicis brevis, flexor pollicis brevis, opponens pollicis, and adductor pollicis) and first dorsal interosseous muscle and necrotizing diabetic abscess dorsum left hand at first webspace extending through first dorsal interosseous muscle and thenar muscles (abductor pollicis brevis, flexor pollicis brevis, opponens pollicis, and adductor pollicis) and suppurative flexor tenosynovitis. He urgently went to surgery where he underwent surgical preparation left thumb and thenar eminence and dorsum hand over first webspace with incision and drainage and excisional debridement complex necrotizing diabetic abscesses (33 cm2) and incision and drainage tendon sheath left thumb for suppurative flexor tenosynovitis and incision and drainage necrotizing diabetic abscess dorsum left thumb involving extensor tendon with tenosynovitis and incision and drainage necrotizing diabetic abscess thenar eminence left palm extending through thenar muscles (abductor pollicis brevis, flexor pollicis brevis, opponens pollicis, and adductor pollicis) and first dorsal interosseous muscle and incision and drainage necrotizing diabetic abscess first dorsal webspace left hand extending through first dorsal interosseous muscle and thenar muscles (abductor pollicis brevis, flexor pollicis brevis, opponens pollicis, and adductor pollicis). He started daily complex wound care with Silver dressing changes. He also required repeat incision and drainage and irrigation procedures until his discharge to an [facility] at the end of January. He was treated with Ceftriaxone. He has since been discharged from the facility. He has some residual ulcerations on his left hand that is being treated with Silver dressing changes. He states he had some therapy while at the facility but none since his release. He complains of residual pain in his left thumb. His WBC was normal at 8.7. He is afebrile. Left hand x-ray showed a subluxation at the MP joint of the thumb with joint space narrowing of the MP and IP joints. I was asked to evaluate this patient for continued wound care and surgical treatment plan. Past Medical History Past Medical History (Chronic Problems): Chronic Problems (Last Reviewed 03/20/19 @ 13:47 by Gabriel Zaidi DO) HLD (hyperlipidemia) (Chronic) Hepatitis C antibody positive in blood (Chronic) Dysphagia (Chronic) Malnutrition (Chronic) Anemia (Chronic) Lumbar canal stenosis (Chronic) Lumbar foraminal stenosis (Chronic) Unintentional weight loss (Chronic) Elevated liver enzymes (Chronic) Type 2 diabetes mellitus (Chronic) Chronic back pain (Chronic) Hypertension (Chronic) Ulcer of left great toe due to diabetes mellitus (Chronic) Diabetes mellitus type 2 (Chronic) uncontrolled Medical History: Medical History (Last Reviewed 03/20/19 @ 13:47 by Gabriel Zaidi DO) Chronic back pain (Chronic) M54.9, G89.29 Hypertension (Chronic) I10 Ulcer of left great toe due to diabetes mellitus (Chronic) E11.621, L97.529 Diabetes mellitus type 2 (Chronic) uncontrolled Allergies morphine Allergy (Verified 03/17/19 23:45) headaches pt states gets very bad headaches from morphine fentanyl Adverse Reaction (Verified 03/17/19 23:45) Pt didn't like how it made him feel PT STATES HE DOES NOT LIKE HOW IT MAKES HIM FEEL. ketorolac [From Toradol] Adverse Reaction (Verified 03/17/19 23:45) real sluggish Current Medications Acetaminophen (Tylenol) 650 mg PO Q6H PRN PRN PRN Reason: Mild Pain (1-3)/Temp > 100.7 F Last Admin: 03/21/19 09:44 Dose: 650 mg Al Hydroxide/Mg Hydroxide (Mylanta Ii) 30 ml PO Q6H PRN PRN PRN Reason: Gastric Burning Atorvastatin Calcium (Lipitor) 40 mg PO DAILY@2200 JANKI Last Admin: 03/20/19 21:01 Dose: 40 mg Dextrose (D50w Syringe) 0 gm IV X1 PRN; Protocol PRN Reason: Hypoglycemia Dicyclomine HCl (Bentyl) 20 mg PO TIDAC [facility] Last Admin: 03/21/19 05:43 Dose: 20 mg Gabapentin (Neurontin) 300 mg PO TIDCM [facility] Last Admin: 03/21/19 08:15 Dose: 300 mg Glucagon () 1 mg IM .X1 PRN PRN Reason: Hypoglycemia Sodium Chloride () 1,000 mls @ 150 mls/hr IV .Q6H40M [facility] Stop: 03/21/19 13:59 Last Admin: 03/21/19 08:13 Dose: 150 mls/hr Insulin Glargine (Lantus (Bkc)) 18 units SC QHS [facility] Last Admin: 03/20/19 21:01 Dose: 18 u Insulin Human Lispro (Humalog Kwikpen (Bkc)) 0 unit SC TIDAC [facility]; Protocol Last Admin: 03/21/19 08:17 Dose: 9 u Insulin Human Lispro (Humalog Kwikpen (Bkc)) 5 unit SC 1700 [facility] Last Admin: 03/20/19 16:48 Dose: 5 units Insulin Human Lispro (Humalog Kwikpen (Bkc)) 6 unit SC 0700,1100 [facility] Last Admin: 03/21/19 08:18 Dose: 6 u [facility] 400) [facility] Last Admin: 03/21/19 08:15 Dose: 400 mg Metoprolol Tartrate (Lopressor (Beta Lakshmi)) 25 mg PO BID [facility] Last Admin: 03/21/19 09:42 Dose: 25 mg Nutritional Formula (Lactose Free) (Glucerna Shake) 120 ml PO ACHS [facility] Last Admin: 03/21/19 05:43 Dose: 120 ml Ondansetron HCl (Zofran Odt) 4 mg PO Q6H PRN PRN PRN Reason: NAUSEA Ondansetron HCl (Zofran) 4 mg IV Q8H PRN PRN PRN Reason: NAUSEA/VOMITING Oxycodone HCl (Oxyir) 5 mg PO Q4H PRN PRN PRN Reason: SEVERE PAIN (6-10/10) Last Admin: 03/21/19 09:44 Dose: 5 mg Pantoprazole Sodium (Protonix) 40 mg PO DAILY [facility] Last Admin: 03/21/19 09:42 Dose: 40 mg Polysaccharide Iron Complex (Ferrex 150) [facility] Last Admin: 03/21/19 08:15 Dose: 150 mg Sertraline HCl (Zoloft) 50 mg PO DAILY [facility] Last Admin: 03/21/19 09:42 Dose: 50 mg Sodium Chloride () 5 - 15 ml IV UD PRN PRN Reason: SALINE FLUSH Home Medications: Ambulatory Orders Medication Instructions Recorded Atorvastatin Calcium 40 mg PO DAILY 11/14/18 Ceftriaxone 2 gm IV Q24 38 Days #38 vial 02/15/19 Gabapentin [Neurontin] 300 mg PO TIDCM #90 capsule 02/15/19 Insulin Glargine [Lantus SoloStar 18 units SC DAILY #1 pen 02/15/19 Pen] Insulin Lispro [Humalog KwikPen] 5 unit SC 1700 insuln.pen 02/15/19 Insulin Lispro [Humalog KwikPen] 6 unit SC 0700,1100 insuln.pen 02/15/19 Insulin Lispro [Humalog KwikPen] See Protocol SC TIDAC insuln.pen 02/15/19 Iron Polysaccharide Complex 150 mg PO DAILYCM #30 capsule 02/15/19 [Ferrex 150] Lisinopril [Zestril] 20 mg PO DAILY #30 tablet 02/15/19 Mag Hydrox/Al Hydrox/Simeth 30 ml PO Q6H PRN PRN udc 02/15/19 [Mylanta II] Magnesium Oxide [Mag-Ox 400] 400 mg PO DAILYCM #30 tablet 02/15/19 Metoprolol Tartrate [Lopressor 25 mg PO BID #60 tablet 02/15/19 (beta lakshmi)] Nifedipine [Procardia Xl] 30 mg PO DAILY #30 tab.er.24 02/15/19 Pantoprazole Sodium [Protonix] 40 mg PO DAILY #30 tablet 02/15/19 Sertraline HCl [Zoloft] 50 mg PO DAILY #30 tablet 02/15/19 Gauze Bandage [Gauze Pads] 3 ea TP .QDAILY #90 bandage 02/16/19 Polyhexam Biguan/Gauze Bandage 1 ea TP .QDAILY #30 bandage 02/16/19 [Kerlix Amd Bandage 0.2% Roll] Silver/Hydrocolloid Dressing 1 ea TP .QDAILY #30 bandage 02/16/19 [Aquacel-Ag W-Hydrofiber Dress] nutritional therapy glucose 1 ea PO .achs #1 unit 03/17/19 intolerance,lactose-free,soy oral liquid Dicyclomine HCl [Bentyl] 20 mg PO TIDAC #20 cap 03/18/19 Ondansetron [Zofran Odt] 4 mg PO Q6H PRN PRN #10 tab 03/18/19 Surgical History: Surgical History (Last Reviewed 03/20/19 @ 13:47 by Gabriel Zaidi DO) History of appendectomy Z90.49 S/P laparoscopic cholecystectomy Z90.49 Surgical History: appendectomy, cholecystectomy, - - Incision and drainage with irrigation and excisional debridement complex necrotizing diabetic abscesses left thumb and thenar eminence into thenar space and dorsum hand over first webspace. Psychiatric History: No pertinent psych hx Lives: Spouse/ Significant Other Smoking Status: Former smoker - *Family History Maternal Family History: Family History (Last Reviewed 03/20/19 @ 13:47 by Gabriel Zaidi DO) Father Diabetes Mother Diabetes History Items: Diabetes Paternal Family History: Family History (Last Reviewed 03/20/19 @ 13:47 by Gabriel Zaidi DO) Father Diabetes Mother Diabetes History Items: Heart Disease - CAD s/p CABG history. Patient notes that his paternal grandmother had diabetes. Review of Systems Comment: Constitutional: Reports: Malaise, Weakness. Denies: Anorexia, Chills, Fever. Eyes: Denies: Blurred vision, Double vision. HEENT: Denies: Head Aches, Sinus Congestion, Sinus Drainage. Cardiovascular: Denies: Chest Pain, Palpitations. Respiratory: Denies: Cough, Shortness of breath at rest, Sputum production. Gastrointestinal: Reports: Diarrhea, Nausea, Vomiting. Denies: Abdominal Pain. Genitourinary: Denies: Dysuria. Musculoskeletal: Denies: Joint Pain, Joint Tenderness. Skin: Denies: Dryness, Jaundice. Neurological: Reports: Balance problems, Focal weakness, Numbness. Denies: Blurred vision, Double vision. Psychiatric: Denies: Anxiety, Depression. Hematologic/ Lymphatic: Denies: Easy Bruising, Easy Bleeding, Hx of blood clot Patient Problems: Active and Suspected Problems (Last Reviewed 03/20/19 @ 13:47 by Gabriel Zaidi DO) Failure to thrive (Acute) - Physical Exam General: Alert, No apparent distress. HEENT: PERRLA, EOMI. Oral: Moist Mucosa. Poor dentition. Neck: Supple, nontender. No cervical adenopathy. Lungs: Clear to auscultation. Cardiovascular: Regular rate, Regular Rhythm. Abdomen: Soft, Non-Distended. Extremities: No clubbing. No cyanosis. Some residual swelling and discomfort present. There are nonhealing diabetic ulcers present from his necrotizing abscess incision and drainage procedures last month. They are on the dorsum left hand, ulnar, dorsum left hand at first web space, dorsum left thumb, and volar left thumb extending onto the thenar eminence. The dorsum left hand, radial, and mid palm ulcers have healed. Thenar eminence is firm with scar tissue. Minimal movement of his thumb. There is an adductor contracture in the first web space. He can flex the rest of his fingers left hand at the MP joint and reasonably into the palm. The ulcers appear dry with granulation tissue. They had been treated with Silver dressing changes. The dorsum left hand, ulnar, ulcer measures 1 cm. the dorsum left hand at first web space ulcer measures 2.5 cm. The dorsum left thumb ulcer measures 1.5 cm. The volar left thumb extending onto the thenar eminence ulcer measures 3.5 cm. Flexion and extension of his left wrist is intact and nontender. Radial pulses are palpable. No axillary adenopathy. Fingers are warm with good capillary refill. Neurological: Cranial nerves II-XII grossly intact. Psych/Mental Status: Normal Affect, Appropriate. Vital Signs Temp Pulse Resp BP Pulse Ox 97.9 F 90 17 173/108 H 100 03/21/19 02:01 03/21/19 09:42 03/21/19 02:01 03/21/19 05:36 03/21/19 02:01 Oxygen Delivery Method Room Air Weight: 135 lb 9.349 oz Body Mass Index (BMI) 17.9 Finger Stick Blood Glucose 323 Orthostatic Vital Signs Start: 03/20/19 15:12 Freq: q24h Status: Active Protocol: Activity Type Activity Date Activity User E-Sign Co-Sign Detail Recorded Client Recorded Date Recorded By Document 03/21/19 05:36 JV [id number] 03/21/19 05:41 JV 03/21/19 05:36 Orthostatic Vitals Standing -Blood Pressure (90/60-120/80) 99/79 -Extremity Use Right Arm -Pulse Rate (60-100) 77 Sitting -Blood Pressure (90/60-120/80) 165/93 H -Extremity Use Right Arm -Pulse Rate (60-100) 69 Lying -Blood Pressure (90/60-120/80) 173/108 H -Extremity Use Right Arm -Pulse Rate (60-100) 69 Intake and Output for Last 24 Hours 03/19/19 03/20/19 03/21/19 23:59 23:59 23:59 Intake Total 1175 / 1175 440 / 440 Output Total 700 / 700 300 / 300 Balance 475 / 475 140 / 140 Laboratory Tests Past 24 Hrs 03/20/19 13:42 Urine Color Yellow Urine Clarity Clear Urine pH 6.5 Ur Specific [place] 1.015 Urine Protein 100 H Urine Glucose (UA) 1000 H Urine Ketones Negative Urine Occult Blood Negative Urine Nitrite Negative Urine Bilirubin Negative Urine Urobilinogen Normal Ur Leukocyte Esterase Negative Urine RBC 0 SEEN Urine WBC 0 SEEN Ur Squamous Epith Cells 0 SEEN Urine Bacteria 0 SEEN Urine Mucus 0 SEEN POC Glucose 03/21/19 03/21/19 03/20/19 12:30 06:44 21:00 POC Glucose 115 H 282 H 127 H 03/20/19 16:44 POC Glucose 195 H Diagnostic Data Chest X-Ray 03/20/19 09:25 IMPRESSION: Previous lung nodules no longer appreciated No new focal patchy airspace opacities or pleural effusions Electronically Signed: Gabriel Collier DO at 10:15 EDT Tel , Service support , Hand X-Ray 03/20/19 09:25 IMPRESSION: Left first MCP joint subluxation with joint space narrowing (interval change from study dated February 01, 2019; possible trauma or infection) Soft tissue swelling predominating at the radial aspect of the hand Stable punctate soft tissue calcification adjacent the radius Electronically Signed: Gabriel Collier DO at 9:56 EDT Tel , Service support , ADDENDUM: 03/20/19 1010 IMPRESSION: Left first MCP joint subluxation with joint space narrowing (interval change from study dated February 01, 2019; possible trauma or infection) Soft tissue swelling predominating at the radial aspect of the hand Stable punctate soft tissue calcification adjacent the radius N.B. : The above information has been verbally conveyed by Gabriel Collier DO to Dr. Erick MD, on 03/20/2019 10:03:46 (ET). Electronically Signed: Gabriel Collier DO at 9:56 EDT Tel , Service support , Assessment/Plan All Active Problems (Last Reviewed 03/20/19 @ 13:47 by Gabriel Zaidi DO) Failure to thrive (Acute) Necrotizing soft tissue infection (Acute) Abscess of dorsum of left hand (Acute) Abscess of bursa, left hand (Acute) Abscess of thumb, left (Acute) Suppurative tenosynovitis of flexor tendon of left hand (Acute) Sepsis (Acute) Cellulitis (Acute) Dehydration (Acute) Hypokalemia (Acute) MSSA bacteremia (Acute) Knee effusion, right (Acute) Knee pain, right (Acute) Acute pancreatitis (Resolved) Gastroenteritis (Resolved) 1. Nonhealing diabetic ulcer dorsum left hand, ulnar. 2. Nonhealing diabetic ulcer dorsum left hand at first web space. 3. Nonhealing diabetic ulcer dorsum left thumb. 4. Nonhealing diabetic ulcer volar left thumb extending onto thenar eminence. 5. Adductor contracture first web space left hand. 6. History of necrotizing diabetic abscesses left hand involving thumb and thenar eminence and first web space. 7. Diabetes mellitus. 8. Subluxation MP joint left thumb with narrowing of MP joint and IP joint secondary to the necrotizing diabetic abscesses. X-ray reviewed. It showed subluxation MP joint left thumb with narrowing of MP joint and IP joint. Probably related to the necrotizing diabetic abscesses. The ulcers show good granulation tissue and have shown much improvement since he was discharged to the [facility] last month. Will stop the Silver dressing changes as the ulcers appear dry. Will begin Bactroban ointment to these ulcers daily followed by gauze and compression JERZY wrap to minimize swelling. Aggressive OT will be needed to try and salvage as much function as possible until the ulcers heal. After the ulcers heal, can address the MP joint with possible ligament reconstruction. The adductor contracture first web space would need release of the adductor muscle and deepening of the first web space with a skin flap. Maintaining joint range of motion is important in further complex reconstruction with tendon transfers to try and improve function. While here, will reculture the ulcers. A positive culture will necessitate antibiotic therapy. Encourage nutritional supplementation with protein to help the healing process. He states he has an appointment with the [facility] later in the week to discuss his future surgical options for complex hand reconstruction and to monitor his OT progress.
--- NOTE | 2019-03-21 13:13 | CASEMGMT ---
RN CM Assessment Introduced role of RN CM to patient.? Patient was sleeping, aroused to verbal stimuli. Alert, oriented and able?to participate in RN CM Assessment. ?Care providers, pharmacy, and demographics verified. Presentation: Falling the past few days, had Lt hand Cellulitis & underwent debridement for necrotizing abscess Lt thumb, Lt palm, Dorsum. Since has c/o pain and unable to move Lt thumb. Admit Dx: Failure to Thrive Re-Admit: No, ER 03/17-03/18/19 for Abd Pain. Inpt 02/01-02/16/19 for Complex Necrotizing Diabetic Abscess Lt Thumb/Hand. Was DC'd to SNF [facility]. Barriers/Issues: Patient states that he has since been DC'd from SNF to home on oral Abx and has been independent and capable of helping if needed. Issue: Brought to ER per 's insistence, has been falling past few days and admitted for failure to thrive. Patient would like to return home and open to HHC if needed. PCP: Guido Miller Specialists: None Preferred Pharmacy: [facility] Insurance: [facility] Rx Benefit: Yes? ?LNOK: [place] LW/HPOA: No, Declined offered information Living Arrangements:?Lives with in a ground level apartment, no steps to enter. ADL?s: Independent with ambulation and ADL's, uses a cane as needed for longer distances. Transportation: or calls a transportation service through insurance [facility] DME: Glucometer, Cane HHC: None. States open to HHC if needed, no preference on Agency. SNF: Recent past at [facility] Goal: Home with HHC if recommended. States is capable of helping him if needed. DC PLAN: Home with HH PT vs SNF, possible DME- Walker, WC. Francisco Damon RNCM
--- NOTE | 2019-03-21 13:46 | PCM.PN.HOSP ---
Patient Problems: Active and Suspected Problems (Last Reviewed 03/20/19 @ 13:47 by Gabriel Zaidi DO) Failure to thrive (Acute) Subjective: Still with left hand pain. Orthostatics this AM +, but was asymptomatic (was symptomatic yesterday). Vitals/I&O's: Vital Signs Temp Pulse Resp BP Pulse Ox 36.7 C 88 18 142/89 H 94 03/21/19 12:00 03/21/19 12:00 03/21/19 12:00 03/21/19 12:00 03/21/19 12:00 Oxygen Delivery Method Room Air Weight: 61.5 kg Body Mass Index (BMI) 17.9 Finger Stick Blood Glucose 323 Orthostatic Vital Signs Start: 03/20/19 15:12 Freq: q24h Status: Active Protocol: Activity Type Activity Date Activity User E-Sign Co-Sign Detail Recorded Client Recorded Date Recorded By Document 03/21/19 05:36 JV [id number] 03/21/19 05:41 JV 03/21/19 05:36 Orthostatic Vitals Standing -Blood Pressure (90/60-120/80) 99/79 -Extremity Use Right Arm -Pulse Rate (60-100) 77 Sitting -Blood Pressure (90/60-120/80) 165/93 H -Extremity Use Right Arm -Pulse Rate (60-100) 69 Lying -Blood Pressure (90/60-120/80) 173/108 H -Extremity Use Right Arm -Pulse Rate (60-100) 69 Intake and Output for Last 24 Hours 03/19/19 03/20/19 03/21/19 23:59 23:59 23:59 Intake Total 1175 / 1175 440 / 440 Output Total 700 / 700 300 / 300 Balance 475 / 475 140 / 140 General: Alert, No apparent distress HEENT: Atraumatic, Normocephalic Oral: Moist Mucosa, No Gingival or Mucosal Lesions/ Ulcerations Neck: No Nodes, Thyroid Normal Size and Texture Lungs: Clear to auscultation, Normal air movement, No rhonchi, No wheeze Cardiovascular: Regular rate, Regular Rhythm, Normal S1, Normal S2, No murmurs Abdomen: Bowel Sounds Present, Soft, Non Tender, Non-Distended, No Hepato-splenomegaly Extremities: No edema, No Calf Tenderness, - - left hand wrapped--did not remove. Skin: No rashes, No breakdown Psych/Mental Status: Normal Affect, Appropriate Laboratory Results 03/20/19 13:42: Urine Color Yellow, Urine Clarity Clear, Urine pH 6.5, Ur Specific [place] 1.015, Urine Protein 100 H, Urine Glucose (UA) 1000 H, Urine Ketones Negative, Urine Occult Blood Negative, Urine Nitrite Negative, Urine Bilirubin Negative, Urine Urobilinogen Normal, Ur Leukocyte Esterase Negative, Urine RBC 0 SEEN, Urine WBC 0 SEEN, Ur Squamous Epith Cells 0 SEEN, Urine Bacteria 0 SEEN, Urine Mucus 0 SEEN 03/20/19 16:44: POC Glucose 195 H 03/20/19 21:00: POC Glucose 127 H 03/21/19 06:44: POC Glucose 282 H 03/21/19 12:30: POC Glucose 115 H Current Medications Acetaminophen (Tylenol) 650 mg PO Q6H PRN PRN PRN Reason: Mild Pain (1-3)/Temp > 100.7 F Last Admin: 03/21/19 09:44 Dose: 650 mg Al Hydroxide/Mg Hydroxide (Mylanta Ii) 30 ml PO Q6H PRN PRN PRN Reason: Gastric Burning Atorvastatin Calcium (Lipitor) 40 mg PO DAILY@2200 [facility] Last Admin: 03/20/19 21:01 Dose: 40 mg Dextrose (D50w Syringe) 0 gm IV X1 PRN; Protocol PRN Reason: Hypoglycemia Dicyclomine HCl (Bentyl) 20 mg PO TIDAC [facility] Last Admin: 03/21/19 13:14 Dose: Not Given Gabapentin (Neurontin) 300 mg PO TIWVM [facility] Last Admin: 03/21/19 13:37 Dose: Not Given Glucagon () 1 mg IM .X1 PRN PRN Reason: Hypoglycemia Sodium Chloride () 1,000 mls @ 150 mls/hr IV .Q6H40M [facility] Stop: 03/21/19 13:59 Last Admin: 03/21/19 08:13 Dose: 150 mls/hr Insulin Glargine (Lantus (Bkc)) 18 units SC QHS [facility] Last Admin: 03/20/19 21:01 Dose: 18 u Insulin Human Lispro (Humalog Kwikpen (Bkc)) 0 unit SC TIDAC [facility]; Protocol Last Admin: 03/21/19 13:14 Dose: Not Given Insulin Human Lispro (Humalog Kwikpen (Bkc)) 5 unit SC 1700 [facility] Last Admin: 03/20/19 16:48 Dose: 5 units Insulin Human Lispro (Humalog Kwikpen (Bkc)) 6 unit SC 0700,1100 [facility] Last Admin: 03/21/19 13:37 Dose: Not Given Magnesium Oxide (Mag-Ox 400) 400 mg PO DAILYCM [facility] Last Admin: 03/21/19 08:15 Dose: 400 mg Metoprolol Tartrate (Lopressor (Beta Lakshmi)) 25 mg PO BID [facility] Last Admin: 03/21/19 09:42 Dose: 25 mg Mupirocin (Bactroban) 1 applic TOPICAL DAILY [facility]; Protocol Nutritional Formula (Lactose Free) (Glucerna Shake) 120 ml PO ACHS [facility] Last Admin: 03/21/19 13:14 Dose: Not Given Ondansetron HCl (Zofran Odt) 4 mg PO Q6H PRN PRN PRN Reason: NAUSEA Ondansetron HCl (Zofran) 4 mg IV Q8H PRN PRN PRN Reason: NAUSEA/VOMITING Oxycodone HCl (Oxyir) 5 mg PO Q4H PRN PRN PRN Reason: SEVERE PAIN (6-10/10) Last Admin: 03/21/19 09:44 Dose: 5 mg Pantoprazole Sodium (Protonix) 40 mg PO DAILY [facility] Last Admin: 03/21/19 09:42 Dose: 40 mg Polysaccharide Iron Complex (Ferrex 150) 150 mg PO DAILYCM [facility] Last Admin: 03/21/19 08:15 Dose: 150 mg Sertraline HCl (Zoloft) 50 mg PO DAILY [facility] Last Admin: 03/21/19 09:42 Dose: 50 mg Sodium Chloride () 5 - 15 ml IV UD PRN PRN Reason: SALINE FLUSH Medical Necessity - Tobacco Use Smoking Status: Former smoker Assessment/Plan All Active Problems (Last Reviewed 03/20/19 @ 13:47 by Gabriel Zaidi DO) Failure to thrive (Acute) Necrotizing soft tissue infection (Acute) Abscess of dorsum of left hand (Acute) Abscess of bursa, left hand (Acute) Abscess of thumb, left (Acute) Suppurative tenosynovitis of flexor tendon of left hand (Acute) Sepsis (Acute) Cellulitis (Acute) Dehydration (Acute) Hypokalemia (Acute) MSSA bacteremia (Acute) Knee effusion, right (Acute) Knee pain, right (Acute) Acute pancreatitis (Resolved) Gastroenteritis (Resolved) 1. Failure to thrive 2/2 orthostatic hypotension and overall debility IVF 2. orthostatic hypotension ongoing DC lisinopril and nifepidime give another liter of IVF recheck orthostatic hypotensions 3. Left hand cellulitis, abscess, tenosynovitis +MSSA on CTX given change of 1st MCP on XRay, will consult Dr. Rankin wound care check cultures 4. 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 DM2 uncontrolled continue basal, prandial and SS insulin 6. VTE prophylaxis: since going to be hospitalized longer than anticipated and limited drive to ambulate, will start LMWH. Moderate risk. Code Visit Inpatient E&M: 22711 Subs Hosp L2
--- NOTE | 2019-03-21 13:53 | PN_ITS ---
Patient Problems: Active and Suspected Problems (Last Reviewed 03/20/19 @ 13:47 by Gabriel Zaidi DO) Failure to thrive (Acute) Subjective: Still with left hand pain. Orthostatics this AM +, but was asymptomatic (was symptomatic yesterday). Vitals/I&O's: Vital Signs Temp Pulse Resp BP Pulse Ox 36.7 C 88 18 142/89 H 94 03/21/19 12:00 03/21/19 12:00 03/21/19 12:00 03/21/19 12:00 03/21/19 12:00 Oxygen Delivery Method Room Air Weight: 61.5 kg Body Mass Index (BMI) 17.9 Finger Stick Blood Glucose 323 Orthostatic Vital Signs Start: 03/20/19 15:12 Freq: q24h Status: Active Protocol: Activity Type Activity Date Activity User E-Sign Co-Sign Detail Recorded Client Recorded Date Recorded By Document 03/21/19 05:36 JV [id number] 03/21/19 05:41 JV 03/21/19 05:36 Orthostatic Vitals Standing -Blood Pressure (90/60-120/80) 99/79 -Extremity Use Right Arm -Pulse Rate (60-100) 77 Sitting -Blood Pressure (90/60-120/80) 165/93 H -Extremity Use Right Arm -Pulse Rate (60-100) 69 Lying -Blood Pressure (90/60-120/80) 173/108 H -Extremity Use Right Arm -Pulse Rate (60-100) 69 Intake and Output for Last 24 Hours 03/19/19 03/20/19 03/21/19 23:59 23:59 23:59 Intake Total 1175 / 1175 440 / 440 Output Total 700 / 700 300 / 300 Balance 475 / 475 140 / 140 General: Alert, No apparent distress HEENT: Atraumatic, Normocephalic Oral: Moist Mucosa, No Gingival or Mucosal Lesions/ Ulcerations Neck: No Nodes, Thyroid Normal Size and Texture Lungs: Clear to auscultation, Normal air movement, No rhonchi, No wheeze Cardiovascular: Regular rate, Regular Rhythm, Normal S1, Normal S2, No murmurs Abdomen: Bowel Sounds Present, Soft, Non Tender, Non-Distended, No Hepato- splenomegaly Extremities: No edema, No Calf Tenderness, - - left hand wrapped--did not remove. Skin: No rashes, No breakdown Psych/Mental Status: Normal Affect, Appropriate Laboratory Results 03/20/19 13:42: Urine Color Yellow, Urine Clarity Clear, Urine pH 6.5, Ur Specific [place] 1.015, Urine Protein 100 H, Urine Glucose (UA) 1000 H, Urine Ketones Negative, Urine Occult Blood Negative, Urine Nitrite Negative, Urine Bertin irubin Negative, Urine Urobilinogen Normal, Ur Leukocyte Esterase Negative, Urine RBC 0 SEEN, Urine WBC 0 SEEN, Ur Squamous Epith Cells 0 SEEN, Urine Bacteria 0 SEEN, Urine Mucus 0 SEEN 03/20/19 16:44: POC Glucose 195 H 03/20/19 21:00: POC Glucose 127 H 03/21/19 06:44: POC Glucose 282 H 03/21/19 12:30: POC Glucose 115 H Current Medications Acetaminophen (Tylenol) 650 mg PO Q6H PRN PRN PRN Reason: Mild Pain (1-3)/Temp > 100.7 F Last Admin: 03/21/19 09:44 Dose: 650 mg Al Hydroxide/Mg Hydroxide (Mylanta Ii) 30 ml PO Q6H PRN PRN PRN Reason: Gastric Burning Atorvastatin Calcium (Lipitor) 40 mg PO DAILY@2200 [facility] Last Admin: 03/20/19 21:01 Dose: 40 mg Dextrose (D50w Syringe) 0 gm IV X1 PRN; Protocol PRN Reason: Hypoglycemia Dicyclomine HCl (Bentyl) 20 mg PO TIDAC [facility] Last Admin: 03/21/19 13:14 Dose: Not Given Gabapentin (Neurontin) 300 mg PO TIDCM [facility] Last Admin: 03/21/19 13:37 Dose: Not Given Glucagon () 1 mg IM .X1 PRN PRN Reason: Hypoglycemia Sodium Chloride () 1,000 mls @ 150 mls/hr IV .Q6H40M [facility] Stop: 03/21/19 13:59 Last Admin: 03/21/19 08:13 Dose: 150 mls/hr Insulin Glargine (Lantus (Bkc)) 18 units SC QHS [facility] Last Admin: 03/20/19 21:01 Dose: 18 u Insulin Human Lispro (Humalog Kwikpen (Bkc)) 0 unit SC TIDAC [facility]; Protocol Last Admin: 03/21/19 13:14 Dose: Not Given Insulin Human Lispro (Humalog Kwikpen (Bkc)) 5 unit SC 1700 [facility] Last Admin: 03/20/19 16:48 Dose: 5 units Insulin Human Lispro (Humalog Kwikpen (Bkc)) 6 unit SC 0700,1100 [facility] Last Admin: 03/21/19 13:37 Dose: Not Given Magnesium Oxide (Mag-Ox 400) 400 mg PO DAILYCM [facility] Last Admin: 03/21/19 08:15 Dose: 400 mg Metoprolol Tartrate (Lopressor (Beta Lakshmi)) 25 mg PO BID [facility] Last Admin: 03/21/19 09:42 Dose: 25 mg Mupirocin (Bactroban) 1 applic TOPICAL DAILY [facility]; Protocol Nutritional Formula (Lactose Free) (Glucerna Shake) 120 ml PO ACHS [facility] Last Admin: 03/21/19 13:14 Dose: Not Given Ondansetron HCl (Zofran Odt) 4 mg PO Q6H PRN PRN PRN Reason: NAUSEA Ondansetron HCl (Zofran) 4 mg IV Q8H PRN PRN PRN Reason: NAUSEA/VOMITING Oxycodone HCl (Oxyir) 5 mg PO Q4H PRN PRN PRN Reason: SEVERE PAIN (6-10/10) Last Admin: 03/21/19 09:44 Dose: 5 mg Pantoprazole Sodium (Protonix) 40 mg PO DAILY [facility] Last Admin: 03/21/19 09:42 Dose: 40 mg Polysaccharide Iron Complex (Ferrex 150) 150 mg PO DAILYCM [facility] Last Admin: 03/21/19 08:15 Dose: 150 mg Sertraline HCl (Zoloft) 50 mg PO DAILY [facility] Last Admin: 03/21/19 09:42 Dose: 50 mg Sodium Chloride () 5 - 15 ml IV UD PRN PRN Reason: SALINE FLUSH Medical Necessity - Tobacco Use Smoking Status: Former smoker Assessment/Plan All Active Problems (Last Reviewed 03/20/19 @ 13:47 by Gabriel Zaidi DO) Failure to thrive (Acute) Necrotizing soft tissue infection (Acute) Abscess of dorsum of left hand (Acute) Abscess of bursa, left hand (Acute) Abscess of thumb, left (Acute) Suppurative tenosynovitis of flexor tendon of left hand (Acute) Sepsis (Acute) Cellulitis (Acute) Dehydration (Acute) Hypokalemia (Acute) MSSA bacteremia (Acute) Knee effusion, right (Acute) Knee pain, right (Acute) Acute pancreatitis (Resolved) Gastroenteritis (Resolved) 1. Failure to thrive * 2/2 orthostatic hypotension and overall debility * IVF 2. orthostatic hypotension * ongoing * DC lisinopril and nifepidime * give another liter of IVF * recheck orthostatic hypotensions 3. Left hand cellulitis, abscess, tenosynovitis * +MSSA * on CTX * given change of 1st MCP on XRay, will consult Dr. Rankin * wound care * check cultures 4. Mitral valve endocarditis * MSSA * on CTX 5. DM2 * uncontrolled * continue basal, prandial and SS insulin 6. VTE prophylaxis: * since going to be hospitalized longer than anticipated and limited drive to ambulate, will start LMWH. * Moderate risk. Code Visit Inpatient E&M: 18435 Subs Hosp L2
--- NOTE | 2019-03-21 15:43 | NURSING ---
wound photo: left hand
--- NOTE | 2019-03-21 15:44 | NURSING ---
wound photo: left hand
[2019-03-21 16:35] LABS: Bedside Glucose 237 mg/dL (70-110)
[2019-03-21] MEDS: Mupirocin Ointment 22gm Tube 1 APPLIC TOPICAL (20:58)
[2019-03-21] MEDS: Atorvastatin Calcium 40 MG Tablet PO (22:49)
[2019-03-21 23:40] LABS: Bedside Glucose 123 mg/dL (70-110)
[2019-03-22] VITALS (7 sets, daily range): BP systolic 90–179; BP diastolic 58–107; PULSE 57–75; RESP 16–18; TEMP 36.4–37.1; O2SAT 100
[2019-03-22] MEDS: Mag Hydrox/Al Hydrox/Simeth 30 ML UDC PO (02:39)
[2019-03-22] MEDS: oxyCODONE 5 MG Tablet PO ×4 (03:15→21:24)
[2019-03-22] MEDS: Insulin Lispro 100 UNIT/ML INSULN.PEN 6 UNIT SC ×2 (07:05→13:15)
[2019-03-22] MEDS: Dicyclomine 10 MG Capsule 20 MG PO ×3 (07:06→16:46)
[2019-03-22] MEDS: Insulin Lispro 100 UNIT/ML INSULN.PEN SC ×2 (07:06→17:29)
[2019-03-22] MEDS: Enoxaparin 40 MG/0.4 ML Syringe SC (07:06)
[2019-03-22] MEDS: Acetaminophen 325 MG Tablet 650 MG PO (07:07)
[2019-03-22] MEDS: Glucerna Shake 120 ML LIQUID PO ×3 (07:07→17:28)
[2019-03-22 07:31] LABS: Bedside Glucose 232 mg/dL (70-110)
[2019-03-22] MEDS: Gabapentin 300 MG Capsule PO ×3 (09:26→17:28)
[2019-03-22] MEDS: Iron Polysaccharide Complex 150 MG CAPSULE PO (09:26)
[2019-03-22] MEDS: Magnesium Oxide 400 MG Tablet PO (09:26)
[2019-03-22] MEDS: Metoprolol Tartrate 25 MG Tablet PO ×2 (09:26→21:28)
[2019-03-22] MEDS: Sertraline 50 MG Tablet PO (09:27)
[2019-03-22] MEDS: Pantoprazole Sodium 40 MG Tablet PO (09:27)
[2019-03-22 12:06] LABS: Bedside Glucose 142 mg/dL (70-110)
[2019-03-22] MEDS: levoFLOXacin 500 MG Tablet PO (13:19)
--- NOTE | 2019-03-22 15:50 | PCM.PN.HOSP ---
Patient Problems: Active and Suspected Problems (Last Reviewed 03/20/19 @ 13:47 by Gabriel Zaidi DO) Failure to thrive (Acute) Subjective: has become diaphoretic. still with left hand pain. Vitals/I&O's: Vital Signs Temp Pulse Resp BP Pulse Ox 36.4 C L 57 L 18 145/92 H 100 03/22/19 14:30 03/22/19 14:30 03/22/19 14:30 03/22/19 14:30 03/22/19 14:30 Oxygen Delivery Method Room Air Weight: 61.5 kg Body Mass Index (BMI) 17.9 Finger Stick Blood Glucose 323 Orthostatic Vital Signs Start: 03/20/19 15:12 Freq: q24h Status: Active Protocol: Activity Type Activity Date Activity User E-Sign Co-Sign Detail Recorded Client Recorded Date Recorded By Document 03/22/19 05:00 GLC [id number] 03/22/19 07:18 GLC 03/22/19 05:00 Orthostatic Vitals Standing -Blood Pressure (90/60-120/80 mm Hg) 90/58 L -Extremity Use Right Arm -Pulse Rate (60-100 beats/min) 74 Sitting -Blood Pressure (90/60-120/80 mm Hg) 132/78 H -Extremity Use Right Arm -Pulse Rate (60-100 beats/min) 72 Lying -Blood Pressure (90/60-120/80 mm Hg) 177/102 H -Extremity Use Right Arm -Pulse Rate (60-100 beats/min) 70 Intake and Output for Last 24 Hours 03/20/19 03/21/19 03/22/19 23:59 23:59 23:59 Intake Total 1175 / 1175 1392 / 1392 820 / 820 Output Total 700 / 700 300 / 300 0 / 0 Balance 475 / 475 1092 / 1092 820 / 820 General: Alert, - - uncomfortable. diaphoretic. HEENT: Atraumatic, Normocephalic Oral: Moist Mucosa, No Gingival or Mucosal Lesions/ Ulcerations Neck: No Nodes, Thyroid Normal Size and Texture Lungs: Clear to auscultation, Normal air movement, No rhonchi, No wheeze Cardiovascular: Regular rate, Regular Rhythm, Normal S1, Normal S2, No murmurs Abdomen: Bowel Sounds Present, Soft, Non Tender, Non-Distended, No Hepato-splenomegaly Extremities: No edema, No Calf Tenderness, - - left hand wrapped--did not remove. Psych/Mental Status: Normal Affect, Appropriate Microbiology Past 72 Hours 03/21/19 Unknown Tissue - Hand Gram Stain - Final 03/21/19 Unknown Tissue - Hand Tissue Culture - Preliminary Gram negative bere Gram positive organism Laboratory Results 03/21/19 16:26: POC Glucose 237 H 03/21/19 22:45: POC Glucose 123 H 03/22/19 07:04: POC Glucose 232 H 03/22/19 12:01: POC Glucose 142 H Current Medications Acetaminophen (Tylenol) 650 mg PO Q6H PRN PRN PRN Reason: Mild Pain (1-3)/Temp > 100.7 F Last Admin: 03/22/19 07:07 Dose: 650 mg Al Hydroxide/Mg Hydroxide (Mylanta Ii) 30 ml PO Q6H PRN PRN PRN Reason: Gastric Burning Last Admin: 03/22/19 02:39 Dose: 30 ml Atorvastatin Calcium (Lipitor) 40 mg PO DAILY@2200 [facility] Last Admin: 03/21/19 22:49 Dose: 40 mg Dextrose (D50w Syringe) 0 gm IV X1 PRN; Protocol PRN Reason: Hypoglycemia Dicyclomine HCl (Bentyl) 20 mg PO TIDAC [facility] Last Admin: 03/22/19 11:59 Dose: 20 mg Enoxaparin Sodium (Lovenox) 40 mg SC DAILY@0600 [facility] Last Admin: 03/22/19 07:06 Dose: 40 mg Gabapentin (Neurontin) 300 mg PO TIDCM [facility] Last Admin: 03/22/19 12:02 Dose: 300 mg Glucagon () 1 mg IM .X1 PRN PRN Reason: Hypoglycemia Insulin Glargine (Lantus (Bkc)) 18 units SC QHS [facility] Last Admin: 03/21/19 22:49 Dose: 18 u Insulin Human Lispro (Humalog Kwikpen (Bkc)) 0 unit SC TIDAC [facility]; Protocol Last Admin: 03/22/19 12:14 Dose: Not Given Insulin Human Lispro (Humalog Kwikpen (Bkc)) 5 unit SC 1700 [facility] Last Admin: 03/21/19 16:27 Dose: 5 units Insulin Human Lispro (Humalog Kwikpen (Bkc)) 6 unit SC 0700,1100 [facility] Last Admin: 03/22/19 13:15 Dose: 6 u Levofloxacin (Levaquin Tablet) 500 mg PO DAILY@0600 [facility] Last Admin: 03/22/19 13:19 Dose: 500 mg [facility] Admin: 03/22/19 09:26 Dose: 400 mg Metoprolol Tartrate (Lopressor (Beta Lakshmi)) 25 mg PO BID [facility] Last Admin: 03/22/19 09:26 Dose: 25 mg Mupirocin (Bactroban) 1 applic TOPICAL DAILY [facility]; Protocol Last Admin: 03/21/19 20:58 Dose: 1 applicatio Nutritional Formula (Lactose Free) (Glucerna Shake) 120 ml PO [facility] Last Admin: 03/22/19 12:13 Dose: 120 ml Ondansetron HCl (Zofran Odt) 4 mg PO Q6H PRN PRN PRN Reason: NAUSEA Ondansetron HCl (Zofran) 4 mg IV Q8H PRN PRN PRN Reason: NAUSEA/VOMITING Oxycodone HCl (Oxyir) 5 mg PO Q4H PRN PRN PRN Reason: SEVERE PAIN (6-10/10) Last Admin: 03/22/19 09:25 Dose: 5 mg Pantoprazole Sodium (Protonix) 40 mg PO DAILY [facility] Last Admin: 03/22/19 09:27 Dose: 40 mg Polysaccharide [facility] ([facility]rex 150) [facility] Last Admin: 03/22/19 09:26 Dose: 150 mg Sertraline HCl (Zoloft) 50 mg PO DAILY [facility] Last Admin: 03/22/19 09:27 Dose: 50 mg Sodium Chloride () 5 - 15 ml IV UD PRN PRN Reason: SALINE FLUSH Medical Necessity - Tobacco Use Smoking Status: Former smoker Assessment/Plan All Active Problems (Last Reviewed 03/20/19 @ 13:47 by Gabriel Zaidi DO) Failure to thrive (Acute) Necrotizing soft tissue infection (Acute) Abscess of dorsum of left hand (Acute) Abscess of bursa, left hand (Acute) Abscess of thumb, left (Acute) Suppurative tenosynovitis of flexor tendon of left hand (Acute) Sepsis (Acute) Cellulitis (Acute) Dehydration (Acute) Hypokalemia (Acute) MSSA bacteremia (Acute) Knee effusion, right (Acute) Knee pain, right (Acute) Acute pancreatitis (Resolved) Gastroenteritis (Resolved) 1. Failure to thrive 2/2 orthostatic hypotension and overall debility IVF 2. orthostatic hypotension ongoing, but asymptomatic DC lisinopril and nifepidime consider midodrine if symptomatic check ACTH stim test. 3. Left hand cellulitis, abscess, tenosynovitis +MSSA on CTX wound care cultures growing out GNR and GPO DW wound care, overall improved and reviewing previous pictures--it is healing pt will need to continue therapy to help with strengthening of his had 4. 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 DM2 uncontrolled continue basal, prandial and SS insulin 6. VTE prophylaxis: since going to be hospitalized longer than anticipated and limited drive to ambulate, will start LMWH. Moderate risk. Code Visit Inpatient E&M: 74905 Subs Hosp L2
--- NOTE | 2019-03-22 15:56 | PN_ITS ---
Patient Problems: Active and Suspected Problems (Last Reviewed 03/20/19 @ 13:47 by Gabriel Zaidi DO) Failure to thrive (Acute) Subjective: has become diaphoretic. still with left hand pain. Vitals/I&O's: Vital Signs Temp Pulse Resp BP Pulse Ox 36.4 C L 57 L 18 145/92 H 100 03/22/19 14:30 03/22/19 14:30 03/22/19 14:30 03/22/19 14:30 03/22/19 14:30 Oxygen Delivery Method Room Air Weight: 61.5 kg Body Mass Index (BMI) 17.9 Finger Stick Blood Glucose 323 Orthostatic Vital Signs Start: 03/20/19 15:12 Freq: q24h Status: Active Protocol: Activity Type Activity Date Activity User E-Sign Co-Sign Detail Recorded Client Recorded Date Recorded By Document 03/22/19 05:00 GLC [id number] 03/22/19 07:18 GLC 03/22/19 05:00 Orthostatic Vitals Standing -Blood Pressure (90/60-120/80 mm Hg) 90/58 L -Extremity Use Right Arm -Pulse Rate (60-100 beats/min) 74 Sitting -Blood Pressure (90/60-120/80 mm Hg) 132/78 H -Extremity Use Right Arm -Pulse Rate (60-100 beats/min) 72 Lying -Blood Pressure (90/60-120/80 mm Hg) 177/102 H -Extremity Use Right Arm -Pulse Rate (60-100 beats/min) 70 Intake and Output for Last 24 Hours 03/20/19 03/21/19 03/22/19 23:59 23:59 23:59 Intake Total 1175 / 1175 1392 / 1392 820 / 820 Output Total 700 / 700 300 / 300 0 / 0 Balance 475 / 475 1092 / 1092 820 / 820 General: Alert, - - uncomfortable. diaphoretic. HEENT: Atraumatic, Normocephalic Oral: Moist Mucosa, No Gingival or Mucosal Lesions/ Ulcerations Neck: No Nodes, Thyroid Normal Size and Texture Lungs: Clear to auscultation, Normal air movement, No rhonchi, No wheeze Cardiovascular: Regular rate, Regular Rhythm, Normal S1, Normal S2, No murmurs Abdomen: Bowel Sounds Present, Soft, Non Tender, Non-Distended, No Hepato- splenomegaly Extremities: No edema, No Calf Tenderness, - - left hand wrapped--did not remove. Psych/Mental Status: Normal Affect, Appropriate Microbiology Past 72 Hours 03/21/19 Unknown Tissue - Hand Gram Stain - Final 03/21/19 Unknown Tissue - Hand Tissue Culture - Preliminary Gram negative bere Gram positive organism Laboratory Results 03/21/19 16:26: POC Glucose 237 H 03/21/19 22:45: POC Glucose 123 H 03/22/19 07:04: POC Glucose 232 H 03/22/19 12:01: POC Glucose 142 H Current Medications Acetaminophen (Tylenol) 650 mg PO Q6H PRN PRN PRN Reason: Mild Pain (1-3)/Temp > 100.7 F Last Admin: 03/22/19 07:07 Dose: 650 mg Al Hydroxide/Mg Hydroxide (Mylanta Ii) 30 ml PO Q6H PRN PRN PRN Reason: Gastric Burning Last Admin: 03/22/19 02:39 Dose: 30 ml Atorvastatin Calcium (Lipitor) 40 mg PO DAILY@2200 [facility] Last Admin: 03/21/19 22:49 Dose: 40 mg Dextrose (D50w Syringe) 0 gm IV X1 PRN; Protocol PRN Reason: Hypoglycemia Dicyclomine HCl (Bentyl) 20 mg PO TIDAC [facility] Last Admin: 03/22/19 11:59 Dose: 20 mg Enoxaparin Sodium (Lovenox) 40 mg SC DAILY@0600 [facility] Last Admin: 03/22/19 07:06 Dose: 40 mg Gabapentin (Neurontin) 300 mg PO TIDCM [facility] Last Admin: 03/22/19 12:02 Dose: 300 mg Glucagon () 1 mg IM .X1 PRN PRN Reason: Hypoglycemia Insulin Glargine (Lantus (Bkc)) 18 units SC QHS [facility] Last Admin: 03/21/19 22:49 Dose: 18 u Insulin Human Lispro (Humalog Kwikpen (Bkc)) 0 unit SC TIDAC [facility]; Protocol Last Admin: 03/22/19 12:14 Dose: Not Given Insulin Human Lispro (Humalog Kwikpen (Bkc)) 5 unit SC 1700 [facility] Last Admin: 03/21/19 16:27 Dose: 5 units Insulin Human Lispro (Humalog Kwikpen (Bkc)) 6 unit SC 0700,1100 [facility] Last Admin: 03/22/19 13:15 Dose: 6 u Levofloxacin (Levaquin Tablet) 500 mg PO DAILY@0600 [facility] Last Admin: 03/22/19 13:19 Dose: 500 mg [facility] ([facility] 400) [facility] Last Admin: 03/22/19 09:26 Dose: 400 mg Metoprolol Tartrate (Lopressor (Beta Lakshmi)) 25 mg PO BID [facility] Last Admin: 03/22/19 09:26 Dose: 25 mg Mupirocin (Bactroban) 1 applic TOPICAL DAILY [facility]; Protocol Last Admin: 03/21/19 20:58 Dose: 1 applicatio Nutritional Formula (Lactose Free) (Glucerna Shake) 120 ml PO [facility] Last Admin: 03/22/19 12:13 Dose: 120 ml Ondansetron HCl (Zofran Odt) 4 mg PO Q6H PRN PRN PRN Reason: NAUSEA Ondansetron HCl (Zofran) 4 mg IV Q8H PRN PRN PRN Reason: NAUSEA/VOMITING Oxycodone HCl (Oxyir) 5 mg PO Q4H PRN PRN PRN Reason: SEVERE PAIN (6-10/10) Last Admin: 03/22/19 09:25 Dose: 5 mg Pantoprazole Sodium (Protonix) 40 mg PO DAILY [facility] Last Admin: 03/22/19 09:27 Dose: 40 mg Polysaccharide Iron Complex (Ferrex 150) [facility] Last Admin: 03/22/19 09:26 Dose: 150 mg Sertraline HCl (Zoloft) 50 mg PO DAILY [facility] Last Admin: 03/22/19 09:27 Dose: 50 mg Sodium Chloride () 5 - 15 ml IV UD PRN PRN Reason: SALINE FLUSH Medical Necessity - Tobacco Use Smoking Status: Former smoker Assessment/Plan All Active Problems (Last Reviewed 03/20/19 @ 13:47 by Gabriel Zaidi DO) Failure to thrive (Acute) Necrotizing soft tissue infection (Acute) Abscess of dorsum of left hand (Acute) Abscess of bursa, left hand (Acute) Abscess of thumb, left (Acute) Suppurative tenosynovitis of flexor tendon of left hand (Acute) Sepsis (Acute) Cellulitis (Acute) Dehydration (Acute) Hypokalemia (Acute) MSSA bacteremia (Acute) Knee effusion, right (Acute) Knee pain, right (Acute) Acute pancreatitis (Resolved) Gastroenteritis (Resolved) 1. Failure to thrive * 2/2 orthostatic hypotension and overall debility * IVF 2. orthostatic hypotension * ongoing, but asymptomatic * DC lisinopril and nifepidime * consider midodrine if symptomatic * check ACTH stim test. 3. Left hand cellulitis, abscess, tenosynovitis * +MSSA * on CTX * wound care * cultures growing out GNR and GPO * DW wound care, overall improved and reviewing previous pictures--it is healing * pt will need to continue therapy to help with strengthening of his had 4. Mitral valve endocarditis * MSSA * on CTX 5. DM2 * uncontrolled * continue basal, prandial and SS insulin 6. VTE prophylaxis: * since going to be hospitalized longer than anticipated and limited drive to ambulate, will start LMWH. * Moderate risk. Code Visit Inpatient E&M: 60766 Subs Hosp L2
[2019-03-22 17:00] LABS: Bedside Glucose 125 mg/dL (70-110)
[2019-03-22] MEDS: Mupirocin Ointment 22gm Tube 1 APPLIC TOPICAL (17:29)
[2019-03-22] MEDS: Atorvastatin Calcium 40 MG Tablet PO (21:30)
[2019-03-22 22:45] LABS: Bedside Glucose 150 mg/dL (70-110)
[2019-03-23] VITALS (7 sets, daily range): BP systolic 114–176; BP diastolic 72–104; PULSE 64–74; RESP 16–18; TEMP 36.6–36.9; O2SAT 99–100
[2019-03-23] MEDS: Acetaminophen 325 MG Tablet 650 MG PO (02:12)
[2019-03-23] MEDS: oxyCODONE 5 MG Tablet PO ×4 (02:25→21:51)
--- NOTE | 2019-03-23 02:30 | NURSING ---
Appetite improved, since 2030 has eaten remainder of dinner, 3 hot cocoas, 2 jello, pk of cookies, icee, and chicken broth. Still having abd pain that is sharp and rates 8/10, Tylenol and oxyir given at this time.
--- NOTE | 2019-03-23 02:49 | NURSING ---
We were having trouble with the main [employer] cabinet. Xena RN had tried to dispense an Oxy and the cabinet asked for a count for drawer 12 but the drawer would not open. She dispensed an Oxy from the other med room. After the [employer] tech fixed the cabinet, this RN was able to dispense an Oxy and the tech was then satisfied that the problem was fixed. Since Xena RN had already dispensed the med she needed from the other cabinet, this RN immediately returned the Oxy I just dispensed back into the return drawer. Gabriel in Pharmacy advised as well.
[2019-03-23 05:28] LABS: Absolute Lymphocyte Count 1.81 X10^3/ul (0.83-4.51); Absolute Neutrophil Count 2.8 X10^3/uL (2.0-7.7); Basophil# 0.02 X10^3/uL; Basophil% 0.4 % (0-1); Eosinophils% 1.9 % (0-5); Hemoglobin 11.1 g/dl (13.0-16.5); Lymphocyte # 1.81 X10^3/ul (4.0); Lymphocyte % 34.5 % (19-41); Mean Corp Hgb Conc 34.7 g/gl (32-36); Mean Corpuscular Hgb 31.7 pg (27.0-32.0); Mean Corpuscular Volume 91.4 fL (80-94); Mean Platelet Vol. 9.3 fl (6.2-12.0); Monocyte# 0.49 X10^3/uL; Monocyte% 9.4 % (0-10); Neutrophil # 2.78 X10^3/uL (2.7-7.7); Platelet Count 210 K/mm3 (150-450); RBC Distribution Width SD 46.5 fl (35.1-43.9); White Blood Count 5.2 K/mm3 (4.4-11.0)
[2019-03-23 05:33] LABS: Anion Gap 6 (5-15); BUN 15 mg/dL (7-18); BUN/Creat Ratio 19.4 RATIO (10-20); Calcium,Total 8.2 mg/dL (8.5-10.1); Chloride 104 mmol/L (98-107); Creatinine, Serum 0.77 mg/dL (0.70-1.30); EST Glomerular Filtration Rate 112 mL/min (>60); Est Glom Filt Rate - Afr Amer 136 mL/min (>60); Estimated Creatinine Clearance 97.62 ml/min; Glucose 239 mg/dL (74-106); Potassium 3.9 mmol/L (3.5-5.1); Sodium Level 139 mmol/L (136-145)
[2019-03-23 05:37] LABS: POSITIVE COUNT NO; POSITIVE DIFFERENTIAL NO; POSITIVE MORPHOLOGY NO
[2019-03-23] MEDS: 0.9% NaCl Peripheral Flush Adult/Peds IV ×2 (05:53→14:22)
[2019-03-23] MEDS: levoFLOXacin 500 MG Tablet PO (06:00)
[2019-03-23] MEDS: Enoxaparin 40 MG/0.4 ML Syringe SC (06:01)
[2019-03-23] MEDS: Dicyclomine 10 MG Capsule 20 MG PO ×3 (07:08→15:26)
[2019-03-23] MEDS: Glucerna Shake 120 ML LIQUID PO ×4 (07:08→21:48)
[2019-03-23] MEDS: Insulin Lispro 100 UNIT/ML INSULN.PEN 6 UNIT SC ×2 (07:09→11:15)
[2019-03-23] MEDS: Insulin Lispro 100 UNIT/ML INSULN.PEN SC ×4 (07:11→16:40)
[2019-03-23 07:16] LABS: Bedside Glucose 253 mg/dL (70-110)
[2019-03-23] MEDS: Mupirocin Ointment 22gm Tube 1 APPLIC TOPICAL (08:27)
--- NOTE | 2019-03-23 10:10 | CASEMGMT ---
WOOD MCKEON called and spoke to regarding consultation appt at [facility] for hand surgeon. Patient will be staying at [facility] while wound cultures are pending. WOOD MCKEON requested that reschedule appt in 1-2 weeks. voiced understanding. Hospitalist updated.
[2019-03-23] MEDS: Gabapentin 300 MG Capsule PO ×3 (10:56→16:39)
[2019-03-23] MEDS: Magnesium Oxide 400 MG Tablet PO (10:57)
[2019-03-23] MEDS: Iron Polysaccharide Complex 150 MG CAPSULE PO (10:57)
[2019-03-23] MEDS: Sertraline 50 MG Tablet PO (10:57)
[2019-03-23] MEDS: Pantoprazole Sodium 40 MG Tablet PO (10:58)
[2019-03-23] MEDS: Metoprolol Tartrate 25 MG Tablet PO ×2 (10:59→21:50)
[2019-03-23 11:16] LABS: Bedside Glucose 209 mg/dL (70-110)
--- NOTE | 2019-03-23 12:10 | PCA ---
pt upset breakfast didnt get warmed up in a timely manner as this gear shaper set up operator was transporting another pt when received call. when return to floor to warm up breakfast pt denied us to warm it up stating we've been doing nothing but sitting at the nurses station talking, explained we were off the floor and apologized for not making it as quick as he wanted us too. 11 o clock rounds were being done and learning center instructor asked pt if he would like fresh ice water pt stated no, he does not need or want anything from us that we can just leave his room, stated he wanted nothing to do with us. charge authorizer aware, and primary nurse was present when this was stated.
[2019-03-23] MEDS: Fluconazole 100 MG Tablet 400 MG PO (14:16)
--- NOTE | 2019-03-23 14:47 | PCM.PN.HOSP ---
Patient Problems: Active and Suspected Problems (Last Reviewed 03/20/19 @ 13:47 by Gabriel Zaidi DO) Failure to thrive (Acute) Subjective: Still with pain in his left hand. Has been up walking around with dizziness. Vitals/I&O's: Vital Signs Temp Pulse Resp BP Pulse Ox 36.6 C 70 16 164/94 H 99 03/23/19 08:30 03/23/19 11:22 03/23/19 08:30 03/23/19 11:22 03/23/19 08:30 Oxygen Delivery Method Room Air Weight: 61.5 kg Body Mass Index (BMI) 17.9 Finger Stick Blood Glucose 323 Intake and Output for Last 24 Hours 03/21/19 03/22/19 03/23/19 23:59 23:59 23:59 Intake Total 1392 / 1392 1060 / 1060 2220 / 2220 Output Total 300 / 300 0 / 0 Balance 1092 / 1092 1060 / 1060 2220 / 2220 General: Alert, No apparent distress HEENT: Atraumatic, Normocephalic Oral: Moist Mucosa, No Gingival or Mucosal Lesions/ Ulcerations Neck: No Nodes, Thyroid Normal Size and Texture Lungs: Clear to auscultation, Normal air movement, No rhonchi, No wheeze Cardiovascular: Regular rate, Regular Rhythm, Normal S1, Normal S2, No murmurs Abdomen: Bowel Sounds Present, Soft, Non Tender, Non-Distended Extremities: No edema, No Calf Tenderness, - - left hand wrapped--did not remove. 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 Laboratory Results 03/22/19 16:46: POC Glucose 125 H 03/22/19 21:32: POC Glucose 150 H 03/23/19 05:00: Cortisol 10.70 03/23/19 05:00: WBC 5.2, RBC 3.50 L, Hgb 11.1 L, Hct 32.0 L, MCV 91.4, MCH 31.7, MCHC 34.7, RDW 14.0, RDW Differential 46.5 H, Plt Count 210, MPV 9.3, Immature Gran % (Auto) 0.800, Neut % (Auto) 53.0, Lymph % (Auto) 34.5, [place] % (Auto) 9.4, Eos % (Auto) 1.9, Baso % (Auto) 0.4, Absolute Neuts (auto) 2.8, Absolute Lymphs (auto) 1.81, Total Counted Not Reportable 03/23/19 05:00: Sodium 139, Potassium 3.9, Chloride 104, Carbon Dioxide 29.0, Anion Gap 6, BUN 15, Creatinine 0.77, Estim Creat Clear Calc 97.62, Est GFR (MDRD) Af Amer 136, Est GFR (MDRD) Non-Af 112, BUN/Creatinine Ratio 19.4, Glucose 239 H, Calcium 8.2 L 03/23/19 06:24: Cortisol 22.10 03/23/19 06:54: Cortisol 27.70 H 03/23/19 07:05: POC Glucose 253 H 03/23/19 11:11: POC Glucose 209 H Current Medications Acetaminophen (Tylenol) 650 mg PO Q6H PRN PRN PRN Reason: Mild Pain (1-3)/Temp > 100.7 F Last Admin: 03/23/19 02:12 Dose: 650 mg Al Hydroxide/Mg Hydroxide (Mylanta Ii) 30 ml PO Q6H PRN PRN PRN Reason: Gastric Burning Last Admin: 03/22/19 02:39 Dose: 30 ml Atorvastatin Calcium (Lipitor) 40 mg PO DAILY@2200 [facility] Last Admin: 03/22/19 21:30 Dose: 40 mg Dextrose (D50w Syringe) 0 gm IV X1 PRN; Protocol PRN Reason: Hypoglycemia Dicyclomine HCl (Bentyl) 20 mg PO TIDAC [facility] Last Admin: 03/23/19 11:05 Dose: 20 mg Enoxaparin Sodium (Lovenox) 40 mg SC DAILY@0600 [facility] Last Admin: 03/23/19 06:01 Dose: 40 mg Fluconazole (Diflucan) 400 mg PO DAILY [facility] Last Admin: 03/23/19 14:16 Dose: 400 mg Gabapentin (Neurontin) 300 mg PO TIDCM [facility] Last Admin: 03/23/19 14:16 Dose: 300 mg Glucagon () 1 mg IM .X1 PRN PRN Reason: Hypoglycemia Cefepime HCl 2 gm/ Sodium (Chloride) 100 mls @ 200 mls/hr IV Q8 [facility] Last Admin: 03/23/19 14:17 Dose: 200 mls/hr Insulin Glargine (Lantus (Bkc)) 18 units SC QHS [facility] Last Admin: 03/22/19 21:33 Dose: 18 u Insulin Human Lispro (Humalog Kwikpen (Bkc)) 0 unit SC TIDAC [facility]; Protocol Last Admin: 03/23/19 11:15 Dose: 3 u Insulin Human Lispro (Humalog Kwikpen (Bkc)) 5 unit SC 1700 [facility] Last Admin: 03/22/19 17:29 Dose: 5 units Insulin Human Lispro (Humalog Kwikpen (Bkc)) 6 unit SC 0700,1100 [facility] Last Admin: 03/23/19 11:15 Dose: 6 u [facility] ([facility]Ox 400) [facility] Last Admin: 03/23/19 10:57 Dose: 400 mg Metoprolol Tartrate (Lopressor (Beta Lakshmi)) 25 mg PO BID [facility] Last Admin: 03/23/19 10:59 Dose: 25 mg Mupirocin (Bactroban) 1 applic TOPICAL DAILY [facility]; Protocol Last Admin: 03/23/19 08:27 Dose: 1 applicatio Nutritional Formula (Lactose Free) (Glucerna Shake) 120 ml PO ACHS [facility] Last Admin: 03/23/19 11:05 Dose: 120 ml Ondansetron HCl (Zofran Odt) 4 mg PO Q6H PRN PRN PRN Reason: NAUSEA Ondansetron HCl (Zofran) 4 mg IV Q8H PRN PRN PRN Reason: NAUSEA/VOMITING Oxycodone HCl (Oxyir) 5 mg PO Q4H PRN PRN PRN Reason: SEVERE PAIN (6-10/10) Last Admin: 03/23/19 11:20 Dose: 5 mg Pantoprazole Sodium (Protonix) 40 mg PO DAILY [facility] Last Admin: 03/23/19 10:58 Dose: 40 mg Polysaccharide Iron Complex (Ferrex 150) [facility] Last Admin: 03/23/19 10:57 Dose: 150 mg Sertraline HCl (Zoloft) 50 mg PO DAILY [facility] Last Admin: 03/23/19 10:57 Dose: 50 mg Sodium Chloride () 5 - 15 ml IV UD PRN PRN Reason: SALINE FLUSH Last Admin: 03/23/19 14:22 Dose: 10 ml Vancomycin HCl () 125 mg PO Q6 [facility] Last Admin: 03/23/19 11:35 Dose: 125 mg Medical Necessity - Tobacco Use Smoking Status: Former smoker Assessment/Plan All Active Problems (Last Reviewed 03/20/19 @ 13:47 by Gabriel Zaidi, ) Failure to thrive (Acute) Necrotizing soft tissue infection (Acute) Abscess of dorsum of left hand (Acute) Abscess of bursa, left hand (Acute) Abscess of thumb, left (Acute) Suppurative tenosynovitis of flexor tendon of left hand (Acute) Sepsis (Acute) Cellulitis (Acute) Dehydration (Acute) Hypokalemia (Acute) MSSA bacteremia (Acute) Knee effusion, right (Acute) Knee pain, right (Acute) Acute pancreatitis (Resolved) Gastroenteritis (Resolved) 1. Failure to thrive 2/2 orthostatic hypotension and overall debility IVF 2. orthostatic hypotension improved ongoing, but asymptomatic DC lisinopril and nifepidime consider midodrine if symptomatic check ACTH stim test. 3. Left hand cellulitis, abscess, tenosynovitis +MSSA on cefepime wound care cultures growing out GNR and GPO DW wound care, overall improved and reviewing previous pictures--it is healing pt will need to continue therapy to help with strengthening of his had ID on consult 4. Mitral valve endocarditis MSSA 5. DM2 uncontrolled continue basal, prandial and SS insulin 6. VTE prophylaxis: since going to be hospitalized longer than anticipated and limited drive to ambulate, will start LMWH. Moderate risk. Code Visit Inpatient E&M: 31724 Subs Hosp L2
--- NOTE | 2019-03-23 14:52 | PN_ITS ---
Patient Problems: Active and Suspected Problems (Last Reviewed 03/20/19 @ 13:47 by Gabriel Zaidi DO) Failure to thrive (Acute) Subjective: Still with pain in his left hand. Has been up walking around with dizziness. Vitals/I&O's: Vital Signs Temp Pulse Resp BP Pulse Ox 36.6 C 70 16 164/94 H 99 03/23/19 08:30 03/23/19 11:22 03/23/19 08:30 03/23/19 11:22 03/23/19 08:30 Oxygen Delivery Method Room Air Weight: 61.5 kg Body Mass Index (BMI) 17.9 Finger Stick Blood Glucose 323 Intake and Output for Last 24 Hours 03/21/19 03/22/19 03/23/19 23:59 23:59 23:59 Intake Total 1392 / 1392 1060 / 1060 2220 / 2220 Output Total 300 / 300 0 / 0 Balance 1092 / 1092 1060 / 1060 2220 / 2220 General: Alert, No apparent distress HEENT: Atraumatic, Normocephalic Oral: Moist Mucosa, No Gingival or Mucosal Lesions/ Ulcerations Neck: No Nodes, Thyroid Normal Size and Texture Lungs: Clear to auscultation, Normal air movement, No rhonchi, No wheeze Cardiovascular: Regular rate, Regular Rhythm, Normal S1, Normal S2, No murmurs Abdomen: Bowel Sounds Present, Soft, Non Tender, Non-Distended Extremities: No edema, No Calf Tenderness, - - left hand wrapped--did not remove. 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 Laboratory Results 03/22/19 16:46: POC Glucose 125 H 03/22/19 21:32: POC Glucose 150 H 03/23/19 05:00: Cortisol 10.70 03/23/19 05:00: WBC 5.2, RBC 3.50 L, Hgb 11.1 L, Hct 32.0 L, MCV 91.4, MCH 31.7, MCHC 34.7, RDW 14.0, RDW Differential 46.5 H, Plt Count 210, MPV 9.3, Immature Gran % (Auto) 0.800, Neut % (Auto) 53.0, Lymph % (Auto) 34.5, [place] % (Auto) 9.4, Eos % (Auto) 1.9, Baso % (Auto) 0.4, Absolute Neuts (auto) 2.8, Absolute Lymphs (auto) 1.81, Total Counted Not Reportable 03/23/19 05:00: Sodium 139, Potassium 3.9, Chloride 104, Carbon Dioxide 29.0, Anion Gap 6, BUN 15, Creatinine 0.77, Estim Creat Clear Calc 97.62, Est GFR (MDRD) Af Amer 136, Est GFR (MDRD) Non-Af 112, BUN/Creatinine Ratio 19.4, Glucose 239 H, Calcium 8.2 L 03/23/19 06:24: Cortisol 22.10 03/23/19 06:54: Cortisol 27.70 H 03/23/19 07:05: POC Glucose 253 H 03/23/19 11:11: POC Glucose 209 H Current Medications Acetaminophen (Tylenol) 650 mg PO Q6H PRN PRN PRN Reason: Mild Pain (1-3)/Temp > 100.7 F Last Admin: 03/23/19 02:12 Dose: 650 mg Al Hydroxide/Mg Hydroxide (Mylanta Ii) 30 ml PO Q6H PRN PRN PRN Reason: Gastric Burning Last Admin: 03/22/19 02:39 Dose: 30 ml Atorvastatin Calcium (Lipitor) 40 mg PO DAILY@2200 [facility] Last Admin: 03/22/19 21:30 Dose: 40 mg Dextrose (D50w Syringe) 0 gm IV X1 PRN; Protocol PRN Reason: Hypoglycemia Dicyclomine HCl (Bentyl) 20 mg PO TIDAC [facility] Last Admin: 03/23/19 11:05 Dose: 20 mg Enoxaparin Sodium (Lovenox) 40 mg SC DAILY@0600 [facility] Last Admin: 03/23/19 06:01 Dose: 40 mg Fluconazole (Diflucan) 400 mg PO DAILY [facility] Last Admin: 03/23/19 14:16 Dose: 400 mg Gabapentin (Neurontin) 300 mg PO TIDCM [facility] Last Admin: 03/23/19 14:16 Dose: 300 mg Glucagon () 1 mg IM .X1 PRN PRN Reason: Hypoglycemia Cefepime HCl 2 gm/ Sodium (Chloride) 100 mls @ 200 mls/hr IV Q8 [facility] Last Admin: 03/23/19 14:17 Dose: 200 mls/hr Insulin Glargine (Lantus (Bkc)) 18 units SC QHS [facility] Last Admin: 03/22/19 21:33 Dose: 18 u Insulin Human Lispro (Humalog Kwikpen (Bkc)) 0 unit SC TIDAC [facility]; Protocol Last Admin: 03/23/19 11:15 Dose: 3 u Insulin Human Lispro (Humalog Kwikpen (Bkc)) 5 unit SC 1700 [facility] Last Admin: 03/22/19 17:29 Dose: 5 units Insulin Human Lispro (Humalog Kwikpen (Bkc)) 6 unit SC 0700,1100 [facility] Last Admin: 03/23/19 11:15 Dose: 6 u Magnesium [facility] ([facility]Ox 400) [facility] Last Admin: 03/23/19 10:57 Dose: 400 mg Metoprolol Tartrate (Lopressor (Beta Lakshmi)) 25 mg PO BID [facility] Last Admin: 03/23/19 10:59 Dose: 25 mg Mupirocin (Bactroban) 1 applic TOPICAL DAILY [facility]; Protocol Last Admin: 03/23/19 08:27 Dose: 1 applicatio Nutritional Formula (Lactose Free) (Glucerna Shake) 120 ml PO ACHS [facility] Last Admin: 03/23/19 11:05 Dose: 120 ml Ondansetron HCl (Zofran Odt) 4 mg PO Q6H PRN PRN PRN Reason: NAUSEA Ondansetron HCl (Zofran) 4 mg IV Q8H PRN PRN PRN Reason: NAUSEA/VOMITING Oxycodone HCl (Oxyir) 5 mg PO Q4H PRN PRN PRN Reason: SEVERE PAIN (6-10/10) Last Admin: 03/23/19 11:20 Dose: 5 mg Pantoprazole Sodium (Protonix) 40 mg PO DAILY [facility] Last Admin: 03/23/19 10:58 Dose: 40 mg Polysaccharide Iron Complex (Ferrex 150) [facility] Last Admin: 03/23/19 10:57 Dose: 150 mg Sertraline HCl (Zoloft) 50 mg PO DAILY [facility] Last Admin: 03/23/19 10:57 Dose: 50 mg Sodium Chloride () 5 - 15 ml IV UD PRN PRN Reason: SALINE FLUSH Last Admin: 03/23/19 14:22 Dose: 10 ml Vancomycin HCl () 125 mg PO Q6 [facility] Last Admin: 03/23/19 11:35 Dose: 125 mg Medical Necessity - Tobacco Use Smoking Status: Former smoker Assessment/Plan All Active Problems (Last Reviewed 03/20/19 @ 13:47 by Gabriel Zaidi, ) Failure to thrive (Acute) Necrotizing soft tissue infection (Acute) Abscess of dorsum of left hand (Acute) Abscess of bursa, left hand (Acute) Abscess of thumb, left (Acute) Suppurative tenosynovitis of flexor tendon of left hand (Acute) Sepsis (Acute) Cellulitis (Acute) Dehydration (Acute) Hypokalemia (Acute) MSSA bacteremia (Acute) Knee effusion, right (Acute) Knee pain, right (Acute) Acute pancreatitis (Resolved) Gastroenteritis (Resolved) 1. Failure to thrive * 2/2 orthostatic hypotension and overall debility * IVF 2. orthostatic hypotension * improved * ongoing, but asymptomatic * DC lisinopril and nifepidime * consider midodrine if symptomatic * check ACTH stim test. 3. Left hand cellulitis, abscess, tenosynovitis * +MSSA * on cefepime * wound care * cultures growing out GNR and GPO * DW wound care, overall improved and reviewing previous pictures--it is healing * pt will need to continue therapy to help with strengthening of his had * ID on consult 4. Mitral valve endocarditis * MSSA 5. DM2 * uncontrolled * continue basal, prandial and SS insulin 6. VTE prophylaxis: * since going to be hospitalized longer than anticipated and limited drive to ambulate, will start LMWH. * Moderate risk. Code Visit Inpatient E&M: 70832 Subs Hosp L2
--- NOTE | 2019-03-23 16:38 | CON.PCM_ITS ---
Problem List (1) Necrotizing soft tissue infection Status: Acute Comment: necrotizing diabetic abscess left thumb and hand Reason for Consult: hand infection Consulted by: Dr. Zaidi History of Present Illness: The patient is a 53 year old M admitted 01/2019 with severe sepsis and 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 Had suspected pulm emboli. Had many surgical debridements by Dr. Rankin. Discharged on iv cefazolin to [facility] with stop date 03/24/19. He was receiving ceftriaxone at the facility, developed diarrhea, found to be cdiff (+). He was insistent on leaving, sent out on cefadroxil and po vanc with PCP and ID followup. Reports diarrhea overall is improved, but not completely sure what antibiotic he was taking at home. Had several days with increased falls and dizziness at home, came to ED, admitted 02/18. He reports some increased drainage and foul odor from hand. Not given abx here until 03/22 started on po levaquin with polymicrobial growth from hand culture. Dr. Rankin following. Still some mild intermittent loose stool, no abd pain. Full ROS performed and neg except as noted above. 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 ketorolac [From Toradol] Adverse Reaction (Verified 03/17/19 23:45) real sluggish Home Medications: Ambulatory Orders Medication Instructions Recorded Atorvastatin Calcium 40 mg PO DAILY 11/14/18 Ceftriaxone 2 gm IV Q24 38 Days #38 vial 02/15/19 Gabapentin [Neurontin] 300 mg PO TIDCM #90 capsule 02/15/19 Insulin Glargine [Lantus SoloStar 18 units SC DAILY #1 pen 02/15/19 Pen] Insulin Lispro [Humalog KwikPen] 5 unit SC 1700 insuln.pen 02/15/19 Insulin Lispro [Humalog KwikPen] 6 unit SC 0700,1100 insuln.pen 02/15/19 Insulin Lispro [Humalog KwikPen] See Protocol SC TIDAC insuln.pen 02/15/19 Iron Polysaccharide Complex 150 mg PO DAILYCM #30 capsule 02/15/19 [Ferrex 150] Lisinopril [Zestril] 20 mg PO DAILY #30 tablet 02/15/19 Mag Hydrox/Al Hydrox/Simeth 30 ml PO Q6H PRN PRN udc 02/15/19 [Mylanta II] Magnesium Oxide [Mag-Ox 400] 400 mg PO DAILYCM #30 tablet 02/15/19 Metoprolol Tartrate [Lopressor 25 mg PO BID #60 tablet 02/15/19 (beta jass)] Nifedipine [Procardia Xl] 30 mg PO DAILY #30 tab.er.24 02/15/19 Pantoprazole Sodium [Protonix] 40 mg PO DAILY #30 tablet 02/15/19 Sertraline HCl [Zoloft] 50 mg PO DAILY #30 tablet 02/15/19 Gauze Bandage [Gauze Pads] 3 ea TP .QDAILY #90 bandage 02/16/19 Polyhexam Biguan/Gauze Bandage 1 ea TP .QDAILY #30 bandage 02/16/19 [Kerlix Amd Bandage 0.2% Roll] Silver/Hydrocolloid Dressing 1 ea TP .QDAILY #30 bandage 02/16/19 [Aquacel-Ag W-Hydrofiber Dress] nutritional therapy glucose 1 ea PO .achs #1 unit 03/17/19 intolerance,lactose-free,soy oral liquid Dicyclomine HCl [Bentyl] 20 mg PO TIDAC #20 cap 03/18/19 Ondansetron [Zofran Odt] 4 mg PO Q6H PRN PRN #10 tab 03/18/19 - Social History SMOKING STATUS:: Former smoker Vital Signs Temp Pulse Resp BP Pulse Ox 98.5 F 67 16 176/104 H 100 05/30/19 14:30 03/23/19 14:30 03/23/19 14:30 03/23/19 14:30 03/23/19 14:30 Oxygen Delivery Method Room Air Weight: 61.5 kg Body Mass Index (BMI) 17.9 Finger Stick Blood Glucose 323 Microbiology Past 72 Hours 03/21/19 Unknown Gram Stain - Final Tissue - Hand Tissue Culture - Preliminary GNR lactose cvicu rn Gram negative bere Gram negative bere#2 Corynebacterium striatum Anaerobic Culture - Preliminary Checking for anaerobes, further studies to follow. Laboratory Tests Past 24 Hrs 03/23/19 03/23/19 03/23/19 05:00 05:00 05:00 WBC 5.2 RBC 3.50 L Hgb 11.1 L Hct 32.0 L MCV 91.4 MCH 31.7 MCHC 34.7 RDW 14.0 RDW Differential 46.5 H Plt Count 210 MPV 9.3 Immature Gran % (Auto) 0.800 Neut % (Auto) 53.0 Lymph % (Auto) 34.5 [place] % (Auto) 9.4 Eos % (Auto) 1.9 Baso % (Auto) 0.4 Absolute Neuts (auto) 2.8 Absolute Lymphs (auto) 1.81 Total Counted Not Reportable Sodium 139 Potassium 3.9 Chloride 104 Carbon Dioxide 29.0 Anion Gap 6 BUN 15 Creatinine 0.77 Estim Creat Clear Calc 97.62 Est GFR (MDRD) Af Amer 136 Est GFR (MDRD) Non-Af 112 BUN/Creatinine Ratio 19.4 Glucose 239 H Calcium 8.2 L Cortisol 10.70 03/23/19 03/23/19 06:24 06:54 WBC RBC Hgb Hct MCV MCH MCHC RDW RDW Differential Plt Count MPV Immature Gran % (Auto) Neut % (Auto) Lymph % (Auto) [place] % (Auto) Eos % (Auto) Baso % (Auto) Absolute Neuts (auto) Absolute Lymphs (auto) Total Counted Sodium Potassium Chloride Carbon Dioxide Anion Gap BUN Creatinine Estim Creat Clear Calc Est GFR (MDRD) Af Amer Est GFR (MDRD) Non-Af BUN/Creatinine Ratio Glucose Calcium Cortisol 22.10 27.70 H - Other Studies Radiology: [] reviewed Other Studies: [] Route of nutrition/ use of supplements: [] Nutritional Intake: [] IV Site: [] Canas Catheter: [] - Physical Exam General: Alert, Oriented x3, Cooperative, No apparent distress HEENT: Atraumatic, PERRLA, EOMI Neck: Supple, No Nodes Lungs: Clear to auscultation, Normal air movement Cardiovascular: Regular rate, Regular Rhythm, Murmur Abdomen: Soft, Non Tender, Non-Distended Extremities: No edema Skin: No rashes, Ulcer/ Wound - L hand reviewed photos IV Site: Peripheral, without redness Musculoskeletal: No Tenderness to Palpation of Joints or Extremities Neurological: Cranial nerves II-XII grossly intact - Assessment/Plan Antibiotics: [] Assessment/Plan: [] Active and Suspected Problems (Last Reviewed 03/20/19 @ 13:47 by Gabriel Zaidi DO) Failure to thrive (Acute) Orthostatic hypotension and falls at home - may be partly related to cdiff diarrhea. Will restart po vanc. MSSA endocarditis from L hand infection - planned stop date for abx was to be 03/24, was off abx for 2 days at start of this admission. Wound cx with GNR x3 and diphtheroids. Will change levaquin to cefepime for broader GNR coverage. Dr. Rankin following. No purulence seen on gram stain, but reports of some odor and ongoing necrosis in hand. hep C - chronic infection, will need outpt treatment eventually. Will follow, thank you, d/w Dr. Zaidi.
[2019-03-23 17:00] LABS: Bedside Glucose 396 mg/dL (70-110)
[2019-03-23] MEDS: Atorvastatin Calcium 40 MG Tablet PO (21:50)
[2019-03-23 22:50] LABS: Bedside Glucose 166 mg/dL (70-110)
[2019-03-24 03:10] VITALS: BP 144/89; PULSE 71; RESP 18; TEMP 37.3; O2SAT 100
[2019-03-24] MEDS: oxyCODONE 5 MG Tablet PO ×4 (03:16→17:17)
[2019-03-24] MEDS: Enoxaparin 40 MG/0.4 ML Syringe SC (06:37)
[2019-03-24] MEDS: Dicyclomine 10 MG Capsule 20 MG PO ×3 (06:39→17:11)
[2019-03-24] MEDS: Insulin Lispro 100 UNIT/ML INSULN.PEN 6 UNIT SC ×2 (07:46→11:16)
[2019-03-24] MEDS: Insulin Lispro 100 UNIT/ML INSULN.PEN SC ×4 (07:46→17:12)
[2019-03-24] MEDS: Sertraline 50 MG Tablet PO (07:48)
[2019-03-24] MEDS: Magnesium Oxide 400 MG Tablet PO (07:48)
[2019-03-24] MEDS: Iron Polysaccharide Complex 150 MG CAPSULE PO (07:49)
[2019-03-24] MEDS: Gabapentin 300 MG Capsule PO ×3 (07:49→17:13)
[2019-03-24 07:53] VITALS: BP 131/77; PULSE 69; RESP 18; TEMP 36.8; O2SAT 100
[2019-03-24 08:00] VITALS: PULSE 70
[2019-03-24 09:47] VITALS: PULSE 70
[2019-03-24] MEDS: Metoprolol Tartrate 25 MG Tablet PO (09:47)
[2019-03-24] MEDS: Fluconazole 100 MG Tablet 400 MG PO (09:48)
[2019-03-24] MEDS: Pantoprazole Sodium 40 MG Tablet PO (09:48)
[2019-03-24] MEDS: Glucerna Shake 120 ML LIQUID PO ×2 (11:21→17:17)
[2019-03-24 11:41] LABS: Bedside Glucose 393 mg/dL (70-110)
--- NOTE | 2019-03-24 12:04 | CASEMGMT ---
Social Work Note RN MIKE Rose updated this worker that pt's Sadia was informed that the SW can set up PASSPORT Services for pt. SW reviewed PASSPORT requirements and pt's have to be 60 years or older and pt is only 53. SW met with pt and Sadia. SW informed pt and Sadia that for PASSPORT pt has to be age 60 or older so currently pt doesn't meet requirements. MATTHEW provided Sadia with [employer] [place] booklet and encouraged Sadia to call and get information regarding additional services through [facility] that pt may qualify for. Sadia states understanding. Odessa Jeter HOOP MAKER MACHINE, MICA MINER
[2019-03-24] MEDS: levoFLOXacin 500 MG Tablet PO (12:47)
--- NOTE | 2019-03-24 13:57 | PCM.PN.ID ---
Patient Problems: Active and Suspected Problems (Last Reviewed 03/20/19 @ 13:47 by Gabriel Zaidi DO) Failure to thrive (Acute) Subjective: Feeling ok, no fever, diarrhea improved - Physical Exam General: Alert, Cooperative, No apparent distress Lungs: Clear to auscultation, Normal air movement Cardiovascular: Regular rate, Regular Rhythm Abdomen: Soft, Non Tender, Non-Distended Skin: Ulcer/ Wound - L hand wrapped Vital Signs Temp Pulse Resp BP Pulse Ox 98.3 F 70 18 131/77 H 100 03/24/19 07:53 03/24/19 09:47 03/24/19 07:53 03/24/19 07:53 03/24/19 07:53 Oxygen Delivery Method Room Air Weight: 61.5 kg Body Mass Index (BMI) 17.9 Finger Stick Blood Glucose 323 Intake and Output for Last 24 Hours 03/22/19 03/23/19 03/24/19 23:59 23:59 23:59 Intake Total 1060 / 1060 3220 / 3220 437.6 / 437.6 Output Total 0 / 0 Balance 1060 / 1060 3220 / 3220 437.6 / 437.6 Microbiology Past 72 Hours 03/21/19 Unknown Gram Stain - Final Tissue - Hand Tissue Culture - Preliminary Klebsiella pneumoniae sp pneum Enterobacter aerogenes Acinetobacter baumannii Corynebacterium striatum Anaerobic Culture - Preliminary Checking for anaerobes, further studies to follow. POC Glucose 03/24/19 03/23/19 03/23/19 11:14 21:33 16:33 POC Glucose 393 H 166 H 396 H Medical Necessity - Tobacco Use Smoking Status: Former smoker Route of nutrition/ use of supplements: [] Nutritional Intake: [] IV Site: [] Canas Catheter: [] - Assessment/Plan Antibiotics: [] Assessment/Plan: [] Active and Suspected Problems (Last Reviewed 03/20/19 @ 13:47 by Gabriel Zaidi DO) Failure to thrive (Acute) Orthostatic hypotension and falls at home - may be partly related to cdiff diarrhea. Will restart po vanc. MSSA endocarditis from L hand infection - planned stop date for abx was to be 03/24, was off abx for 2 days at start of this admission. Wound cx with AcB, enterobacter, ESBL K.pneumo, and diphtheroids. Ok for discharge on one week of levaquin, augmentin. hep C - chronic infection, will need outpt treatment eventually. cdiff diarrhea - d/c home on 17 days of po vanc. Will follow, d/w Dr. Zaidi.
[2019-03-24] MEDS: Mupirocin Ointment 22gm Tube 1 APPLIC TOPICAL (14:34)
--- NOTE | 2019-03-24 15:05 | DCINST_ITS ---
- Discharge Diagnoses Current Active Problems: Current Active and Chronic Problems (Last Reviewed 03/20/19 @ 13:47 by Gabriel Zaidi DO) Failure to thrive (Acute) You will use the following diet at home:: Calorie/Carbohydrate Controlled (specify 1200, 1400, etc) - 1800 Your food should be the consistency of: Regular Discharge Activity: Return to Normal Activity Call your doctor if your incision/area has: Continuous Slow Oozing, Increased Pain/ Swelling, Increased Redness Call your doctor if you observe: Fever of 101 or Higher, Fainting spells Allergies/Adverse Reactions: Allergies morphine Allergy (Verified 03/17/19 23:45) headaches pt states gets very bad headaches from morphine fentanyl Adverse Reaction (Verified 03/17/19 23:45) Pt didn't like how it made him feel PT STATES HE DOES NOT LIKE HOW IT MAKES HIM FEEL. ketorolac [From Toradol] Adverse Reaction (Verified 03/17/19 23:45) real sluggish Medications to take at Discharge Atorvastatin Calcium 40 mg PO DAILY 11/14/18 Gabapentin [Neurontin] 300 mg PO TIDCM #90 capsule 02/15/19 Insulin Glargine [Lantus SoloStar Pen] 18 units SC DAILY #1 pen 02/15/19 Insulin Lispro [Humalog KwikPen] 5 unit SC 1700 insuln.pen 02/15/19 Insulin Lispro [Humalog KwikPen] 6 unit SC 0700,1100 insuln.pen 02/15/19 Insulin Lispro [Humalog KwikPen] See Protocol SC TIDAC insuln.pen 02/15/19 Iron Polysaccharide Complex [Ferrex 150] 150 mg PO DAILYCM #30 capsule 02/15/19 Mag Hydrox/Al Hydrox/Simeth [Mylanta II] 30 ml PO Q6H PRN PRN udc 02/15/19 Magnesium Oxide [Mag-Ox 400] 400 mg PO DAILYCM #30 tablet 02/15/19 Metoprolol Tartrate [Lopressor (beta jass)] 25 mg PO BID #60 tablet 02/15/19 Pantoprazole Sodium [Protonix] 40 mg PO DAILY #30 tablet 02/15/19 Sertraline HCl [Zoloft] 50 mg PO DAILY #30 tablet 02/15/19 Gauze Bandage [Gauze Pads] 3 ea TP .QDAILY #90 bandage 02/16/19 Polyhexam Biguan/Gauze Bandage [Kerlix Amd Bandage 0.2% Roll] 1 ea TP .QDAILY #30 bandage 02/16/19 Silver/Hydrocolloid Dressing [Aquacel-Ag W-Hydrofiber Dress] 1 ea TP .QDAILY #30 bandage 02/16/19 nutritional therapy glucose intolerance,lactose-free,soy oral liquid 1 ea PO .achs #1 unit 03/17/19 Dicyclomine HCl [Bentyl] 20 mg PO TIDAC #20 cap 03/18/19 Ondansetron [Zofran Odt] 4 mg PO Q6H PRN PRN #10 tab 03/18/19 Amox/Clavulanate Tablet [Augmentin Tablet] 875 mg PO BID #14 tablet 03/24/19 Oxycodone [Oxyir] 5 mg PO Q6H PRN 3 Days #12 tablet 03/24/19 Vancomcyin 125mg/5mL PO Liquid 125 mg PO Q6 17 Days #60 po.syringe 03/24/19 levoFLOXacin tablet [Levaquin tablet] 500 mg PO DAILY@0600 #7 tablet 03/24/19 The following prescriptions were given: levoFLOXacin tablet [Levaquin tablet] 500 mg PO DAILY@0600 #7 tablet Vancomcyin 125mg/5mL PO Liquid 125 mg PO Q6 17 Days #60 po.syringe Amox/Clavulanate Tablet [Augmentin Tablet] 875 mg PO BID #14 tablet Oxycodone [Oxyir] 5 mg PO Q6H PRN 3 Days #12 tablet PRN Reason: Severe Pain (6-10/10) Primary Care Physician: Guido Miller MD [Primary Care Provider] - Within 2 Weeks Test Results: Test results from this visit will be discussed in further detail at your follow- up appointment, if applicable. Please Follow Up With: Guido Miller MD Please Follow Up With: Hand/Plastics in [place] When: next scheduled appointment. Proposed Discharge Date: 03/24/19
--- NOTE | 2019-03-24 15:07 | PCM.DC.SUM ---
Discharge Date and Diagnosis - Problem List Patient Problems: Active and Suspected Problems (Last Reviewed 03/20/19 @ 13:47 by Gabriel Zaidi DO) Failure to thrive (Acute) Date of Admission: 03/20/19 Date of Discharge: 03/24/19 - Primary Discharge Diagnosis Active and Suspected Problems (Last Reviewed 03/20/19 @ 13:47 by Gabriel Zaidi DO) Failure to thrive (Acute) 1. Failure to thrive 2/2 orthostatic hypotension and overall debility resolved 2. orthostatic hypotension improved ongoing, but asymptomatic DC lisinopril and nifepidime ACTH stim negative 3. Left hand cellulitis, abscess, tenosynovitis Klebsiella, Enterobacter, Acinetobacter, corynebacterium DW wound care, overall improved and reviewing previous pictures--it is healing pt will need to continue therapy to help with strengthening of his had Follow up with surgeon at [facility] for definitive mgmt, if necessary ID prescribed Augmentin and levofloxacin Dismissive of therapy for his thumb. Reinforced need for therapy to prevent contracture. 4. Mitral valve endocarditis completed treatment 5. C.diff placed on vancomycin as it appears that he was not taking his prescribed abx from rehab. Though, we do not have confirmation from the facility. Empirically treated as he is on abx. 5. DM2 uncontrolled continue basal, prandial and SS insulin - Secondary Discharge Diagnosis Chronic Problems (Last Reviewed 03/20/19 @ 13:47 by Gabriel Zaidi DO) HLD (hyperlipidemia) (Chronic) Hepatitis C antibody positive in blood (Chronic) Dysphagia (Chronic) Malnutrition (Chronic) Anemia (Chronic) Lumbar canal stenosis (Chronic) Lumbar foraminal stenosis (Chronic) Unintentional weight loss (Chronic) Elevated liver enzymes (Chronic) Type 2 diabetes mellitus (Chronic) Chronic back pain (Chronic) Hypertension (Chronic) Ulcer of left great toe due to diabetes mellitus (Chronic) Diabetes mellitus type 2 (Chronic) uncontrolled Hospital Course and Treatment Imaging Results: Clinical Impression(s) from Imaging Studies Chest X-Ray 03/20/19 09:25 IMPRESSION: Previous lung nodules no longer appreciated No new focal patchy airspace opacities or pleural effusions Electronically Signed: Gabriel Collier DO at 10:15 EDT Tel , Service support , Hand X-Ray 03/20/19 09:25 IMPRESSION: Left first MCP joint subluxation with joint space narrowing (interval change from study dated February 01, 2019; possible trauma or infection) Soft tissue swelling predominating at the radial aspect of the hand Stable punctate soft tissue calcification adjacent the radius Electronically Signed: Gabriel Collier DO at 9:56 EDT Tel , Service support , ADDENDUM: 03/20/19 1010 IMPRESSION: Left first MCP joint subluxation with joint space narrowing (interval change from study dated February 01, 2019; possible trauma or infection) Soft tissue swelling predominating at the radial aspect of the hand Stable punctate soft tissue calcification adjacent the radius N.B. : The above information has been verbally conveyed by Gabriel Collier DO to Dr. Erick MD, on 03/20/2019 10:03:46 (ET). Electronically Signed: Gabriel Collier DO at 9:56 EDT Tel , Service support , Knee X-Ray 03/20/19 09:25 IMPRESSION: Left knee swelling with small volume joint effusion Left patellar postsurgical fixation with chronic hardware fractures Patellofemoral joint space narrowing Electronically Signed: Gabriel Collier DO at 10:13 EDT Tel , Service support , Knee X-Ray 03/20/19 09:25 IMPRESSION: Right knee intact with degenerative changes Small volume joint effusion Electronically Signed: Gabriel Collier DO at 10:10 EDT Tel , Service support , Lumbar Spine X-Ray 03/20/19 09:25 IMPRESSION: Lumbar spine intact Degenerative changes, as above Left upper quadrant calcifications Electronically Signed: Gabriel Collier DO at 10:11 EDT Tel , Service support , Thoracic Spine X-Ray 03/20/19 09:25 IMPRESSION: Thoracic spine intact Mild degenerative changes Left upper quadrant calcifications Electronically Signed: Gabriel Collier DO at 10:17 EDT Tel , Service support , Consultations 03/20/19 13:37 Consult: Onc/Wound/electric meter technician Routine Comment: Eamon Cherry MD: ID Edmond Rankin MD: PRS. Operations: None Procedures: None Summary of Care Provided: The patient is a 53 year old M presents with failure to thrive. Patient was essentially having near syncopal episodes. Confirmed to be related with orthostatic hypotension. Patient's lisinopril and nifedipine were discontinued and orthostasis did improve. Patient was also evaluated for his right hand. Evaluated by Dr. mehran Oden who did the surgery and felt that overall is healing. This is also felt to be healing by the wound care nurse as well. Cultures were drawn were polymicrobial. Patient was seen in consultation by infectious disease. Patient will be discharged with Augmentin and Levaquin to cover these organisms. Patient will also follow-up with surgeon in [facility] for possible definitive further surgery in regards to further healing of his right hand. Patient does require therapy to help prevent contracture of his left thumb but he has been dismissive about their input. Patient apparently had C. difficile at the outside facility and was prescribed vancomycin but it appears that he may not be taking that though we do not have confirmation of any positive CD4 result from the outside facility. Patient has not been having diarrhea here but patient will be placed on empiric oral vancomycin since he will continue with antibiotics. [] Patient Problems: Active and Suspected Problems (Last Reviewed 03/20/19 @ 13:47 by Gabriel Zaidi DO) Failure to thrive (Acute) - Physical Exam General: Alert, No apparent distress HEENT: Atraumatic, Normocephalic Neck: No Nodes, Thyroid Normal Size and Texture Lungs: Clear to auscultation, Normal air movement, No rhonchi, No wheeze Cardiovascular: Regular rate, Regular Rhythm, Normal S1, Normal S2 Neurological: - - normal gait. Psych/Mental Status: Normal Affect, Appropriate Vital Signs Temp Pulse Resp BP Pulse Ox 36.8 C 70 18 131/77 H 100 03/24/19 07:53 03/24/19 09:47 03/24/19 07:53 03/24/19 07:53 03/24/19 07:53 Oxygen Delivery Method Room Air Weight: 61.5 kg Body Mass Index (BMI) 17.9 Finger Stick Blood Glucose 323 Intake and Output for Last 24 Hours 03/22/19 03/23/19 03/24/19 23:59 23:59 23:59 Intake Total 1060 / 1060 3220 / 3220 437.6 / 437.6 Output Total 0 / 0 Balance 1060 / 1060 3220 / 3220 437.6 / 437.6 Microbiology Past 72 Hours 03/21/19 Unknown Gram Stain - Final Tissue - Hand Tissue Culture - Preliminary Klebsiella pneumoniae sp pneum Enterobacter aerogenes Acinetobacter baumannii Corynebacterium striatum Anaerobic Culture - Preliminary Checking for anaerobes, further studies to follow. POC Glucose 03/24/19 03/23/19 03/23/19 11:14 21:33 16:33 POC Glucose 393 H 166 H 396 H Discharge Diet: 1800 Calorie Control Diet Discharge Activity: Return to Normal Activity Call your doctor if your incision/area has: Continuous Slow Oozing, Increased Pain/ Swelling, Increased Redness Call your doctor if you observe: Fever of 101 or Higher, Fainting spells Home Medications: Medications to take at Discharge Atorvastatin Calcium 40 mg PO DAILY 11/14/18 Gabapentin [Neurontin] 300 mg PO TIDCM #90 capsule 02/15/19 Insulin Glargine [Lantus SoloStar Pen] 18 units SC DAILY #1 pen 02/15/19 Insulin Lispro [Humalog KwikPen] 5 unit SC 1700 insuln.pen 02/15/19 Insulin Lispro [Humalog KwikPen] 6 unit SC 0700,1100 insuln.pen 02/15/19 Insulin Lispro [Humalog KwikPen] See Protocol SC TIDAC insuln.pen 02/15/19 Iron Polysaccharide Complex [Ferrex 150] 150 mg PO DAILYCM #30 capsule 02/15/19 Mag Hydrox/Al Hydrox/Simeth [Mylanta II] 30 ml PO Q6H PRN PRN udc 02/15/19 Magnesium Oxide [Mag-Ox 400] 400 mg PO DAILYCM #30 tablet 02/15/19 Metoprolol Tartrate [Lopressor (beta jass)] 25 mg PO BID #60 tablet 02/15/19 Pantoprazole Sodium [Protonix] 40 mg PO DAILY #30 tablet 02/15/19 Sertraline HCl [Zoloft] 50 mg PO DAILY #30 tablet 02/15/19 Gauze Bandage [Gauze Pads] 3 ea TP .QDAILY #90 bandage 02/16/19 Polyhexam Biguan/Gauze Bandage [Kerlix Amd Bandage 0.2% Roll] 1 ea TP .QDAILY #30 bandage 02/16/19 Silver/Hydrocolloid Dressing [Aquacel-Ag W-Hydrofiber Dress] 1 ea TP .QDAILY #30 bandage 02/16/19 nutritional therapy glucose intolerance,lactose-free,soy oral liquid 1 ea PO .achs #1 unit 03/17/19 Dicyclomine HCl [Bentyl] 20 mg PO TIDAC #20 cap 03/18/19 Ondansetron [Zofran Odt] 4 mg PO Q6H PRN PRN #10 tab 03/18/19 Amox/Clavulanate Tablet [Augmentin Tablet] 875 mg PO BID #14 tablet 03/24/19 Oxycodone [Oxyir] 5 mg PO Q6H PRN 3 Days #12 tablet 03/24/19 Vancomcyin 125mg/5mL PO Liquid 125 mg PO Q6 17 Days #60 po.syringe 03/24/19 levoFLOXacin tablet [Levaquin tablet] 500 mg PO DAILY@0600 #7 tablet 03/24/19 Following Prescrptions Were Given to Patient: levoFLOXacin tablet [Levaquin tablet] 500 mg PO DAILY@0600 #7 tablet Vancomcyin 125mg/5mL PO Liquid 125 mg PO Q6 17 Days #60 po.syringe Amox/Clavulanate Tablet [Augmentin Tablet] 875 mg PO BID #14 tablet Oxycodone [Oxyir] 5 mg PO Q6H PRN 3 Days #12 tablet PRN Reason: Severe Pain (-08/03) Primary Care Physician: Guido Miller MD [Primary Care Provider] - Within 2 Weeks Please Follow Up With: Guido Miller MD Please Follow Up With: Hand/Plastics in [place] When: next scheduled appointment. Disposition: Home Minutes spent on discharge:: 32 Patient Condition:: Good Medical Necessity - Tobacco Use Smoking Status: Former smoker Meaningful Use Info Meaningful Use Diagnoses (Choose all that apply): None applicable Code Visit Inpatient E&M: 05096 Disch Hosp
--- NOTE | 2019-03-24 15:14 | DS.PCM_ITS ---
Discharge Date and Diagnosis - Problem List Patient Problems: Active and Suspected Problems (Last Reviewed 03/20/19 @ 13:47 by Gabriel Zaidi DO) Failure to thrive (Acute) Date of Admission: 03/20/19 Date of Discharge: 03/24/19 - Primary Discharge Diagnosis Active and Suspected Problems (Last Reviewed 03/20/19 @ 13:47 by Gabriel Zaidi DO) Failure to thrive (Acute) 1. Failure to thrive * 2/2 orthostatic hypotension and overall debility * resolved 2. orthostatic hypotension * improved * ongoing, but asymptomatic * DC lisinopril and nifepidime * ACTH stim negative 3. Left hand cellulitis, abscess, tenosynovitis * Klebsiella, Enterobacter, Acinetobacter, corynebacterium * DW wound care, overall improved and reviewing previous pictures--it is healing * pt will need to continue therapy to help with strengthening of his had * Follow up with surgeon at [facility] for definitive mgmt, if necessary * ID prescribed Augmentin and levofloxacin * Dismissive of therapy for his thumb. Reinforced need for therapy to prevent contracture. 4. Mitral valve endocarditis * completed treatment 5. C.diff * placed on vancomycin as it appears that he was not taking his prescribed abx from rehab. Though, we do not have confirmation from the facility. Empirically treated as he is on abx. 5. DM2 * uncontrolled * continue basal, prandial and SS insulin - Secondary Discharge Diagnosis Chronic Problems (Last Reviewed 03/20/19 @ 13:47 by Gabriel Zaidi DO) HLD (hyperlipidemia) (Chronic) Hepatitis C antibody positive in blood (Chronic) Dysphagia (Chronic) Malnutrition (Chronic) Anemia (Chronic) Lumbar canal stenosis (Chronic) Lumbar foraminal stenosis (Chronic) Unintentional weight loss (Chronic) Elevated liver enzymes (Chronic) Type 2 diabetes mellitus (Chronic) Chronic back pain (Chronic) Hypertension (Chronic) Ulcer of left great toe due to diabetes mellitus (Chronic) Diabetes mellitus type 2 (Chronic) uncontrolled Hospital Course and Treatment Imaging Results: Clinical Impression(s) from Imaging Studies Chest X-Ray 03/20/19 09:25 IMPRESSION: Previous lung nodules no longer appreciated No new focal patchy airspace opacities or pleural effusions Electronically Signed: Gabriel Collier DO at 10:15 EDT Tel , Service support , Hand X-Ray 03/20/19 09:25 IMPRESSION: Left first MCP joint subluxation with joint space narrowing (interval change from study dated February 01, 2019; possible trauma or infection) Soft tissue swelling predominating at the radial aspect of the hand Stable punctate soft tissue calcification adjacent the radius Electronically Signed: Gabriel Collier DO at 9:56 EDT Tel , Service support , ADDENDUM: 03/20/19 1010 IMPRESSION: Left first MCP joint subluxation with joint space narrowing (interval change from study dated February 01, 2019; possible trauma or infection) Soft tissue swelling predominating at the radial aspect of the hand Stable punctate soft tissue calcification adjacent the radius N.B. : The above information has been verbally conveyed by Gabriel Collier DO to Dr. Erick MD, on 03/20/2019 10:03:46 (ET). Electronically Signed: Gabriel Collier DO at 9:56 EDT Tel , Service support , Knee X-Ray 03/20/19 09:25 IMPRESSION: Left knee swelling with small volume joint effusion Left patellar postsurgical fixation with chronic hardware fractures Patellofemoral joint space narrowing Electronically Signed: Gabriel Collier DO at 10:13 EDT Tel , Service support , Knee X-Ray 03/20/19 09:25 IMPRESSION: Right knee intact with degenerative changes Small volume joint effusion Electronically Signed: Gabriel Collier DO at 10:10 EDT Tel , Service support , Lumbar Spine X-Ray 03/20/19 09:25 IMPRESSION: Lumbar spine intact Degenerative changes, as above Left upper quadrant calcifications Electronically Signed: Gabriel Collier DO at 10:11 EDT Tel , Service support , Thoracic Spine X-Ray 03/20/19 09:25 IMPRESSION: Thoracic spine intact Mild degenerative changes Left upper quadrant calcifications Electronically Signed: Gabriel DO Amira at 10:17 EDT Tel , Service support , Consultations 03/20/19 13:37 Consult: Onc/Wound/community resource consultant Routine Comment: Eamon Cherry MD: ID Edmond Rankin MD: PRS. Operations: None Procedures: None Summary of Care Provided: The patient is a 53 year old M presents with failure to thrive. Patient was essentially having near syncopal episodes. Confirmed to be related with orthostatic hypotension. Patient's lisinopril and nifedipine were discontinued and orthostasis did improve. Patient was also evaluated for his right hand. Evaluated by Dr. mehran Oden who did the surgery and felt that overall is healing. This is also felt to be healing by the wound care nurse as well. Cultures were drawn were polymicrobial. Patient was seen in consultation by infectious disease. Patient will be discharged with Augmentin and Levaquin to cover these organisms. Patient will also follow-up with surgeon in [facility] for possible definitive further surgery in regards to further healing of his right hand. Patient does require therapy to help prevent contracture of his left thumb but he has been dismissive about their input. Patient apparently had C. difficile at the outside facility and was prescribed vancomycin but it appears that he may not be taking that though we do not have confirmation of any positive CD4 result from the outside facility. Patient has not been having diarrhea here but patient will be placed on empiric oral vancomycin since he will continue with antibiotics. [] Patient Problems: Active and Suspected Problems (Last Reviewed 03/20/19 @ 13:47 by Gabriel Zaidi DO) Failure to thrive (Acute) - Physical Exam General: Alert, No apparent distress HEENT: Atraumatic, Normocephalic Neck: No Nodes, Thyroid Normal Size and Texture Lungs: Clear to auscultation, Normal air movement, No rhonchi, No wheeze Cardiovascular: Regular rate, Regular Rhythm, Normal S1, Normal S2 Neurological: - - normal gait. Psych/Mental Status: Normal Affect, Appropriate Vital Signs Temp Pulse Resp BP Pulse Ox 36.8 C 70 18 131/77 H 100 03/24/19 07:53 03/24/19 09:47 03/24/19 07:53 03/24/19 07:53 03/24/19 07:53 Oxygen Delivery Method Room Air Weight: 61.5 kg Body Mass Index (BMI) 17.9 Finger Stick Blood Glucose 323 Intake and Output for Last 24 Hours 03/22/19 03/23/19 03/24/19 23:59 23:59 23:59 Intake Total 1060 / 1060 3220 / 3220 437.6 / 437.6 Output Total 0 / 0 Balance 1060 / 1060 3220 / 3220 437.6 / 437.6 Microbiology Past 72 Hours 03/21/19 Unknown Gram Stain - Final Tissue - Hand Tissue Culture - Preliminary Klebsiella pneumoniae sp pneum Enterobacter aerogenes Acinetobacter baumannii Corynebacterium striatum Anaerobic Culture - Preliminary Checking for anaerobes, further studies to follow. POC Glucose 03/24/19 03/23/19 03/23/19 11:14 21:33 16:33 POC Glucose 393 H 166 H 396 H Discharge Diet: 1800 Calorie Control Diet Discharge Activity: Return to Normal Activity Call your doctor if your incision/area has: Continuous Slow Oozing, Increased Pain/ Swelling, Increased Redness Call your doctor if you observe: Fever of 101 or Higher, Fainting spells Home Medications: Medications to take at Discharge Atorvastatin Calcium 40 mg PO DAILY 11/14/18 Gabapentin [Neurontin] 300 mg PO TIDCM #90 capsule 02/15/19 Insulin Glargine [Lantus SoloStar Pen] 18 units SC DAILY #1 pen 02/15/19 Insulin Lispro [Humalog KwikPen] 5 unit SC 1700 insuln.pen 02/15/19 Insulin Lispro [Humalog KwikPen] 6 unit SC 0700,1100 insuln.pen 02/15/19 Insulin Lispro [Humalog KwikPen] See Protocol SC TIDAC insuln.pen 02/15/19 Iron Polysaccharide Complex [Ferrex 150] 150 mg PO DAILYCM #30 capsule 02/15/19 Mag Hydrox/Al Hydrox/Simeth [Mylanta II] 30 ml PO Q6H PRN PRN udc 02/15/19 Magnesium Oxide [Mag-Ox 400] 400 mg PO DAILYCM #30 tablet 02/15/19 Metoprolol Tartrate [Lopressor (beta jass)] 25 mg PO BID #60 tablet 02/15/19 Pantoprazole Sodium [Protonix] 40 mg PO DAILY #30 tablet 02/15/19 Sertraline HCl [Zoloft] 50 mg PO DAILY #30 tablet 02/15/19 Gauze Bandage [Gauze Pads] 3 ea TP .QDAILY #90 bandage 02/16/19 Polyhexam Biguan/Gauze Bandage [Kerlix Amd Bandage 0.2% Roll] 1 ea TP .QDAILY #3 0 bandage 02/16/19 Silver/Hydrocolloid Dressing [Aquacel-Ag W-Hydrofiber Dress] 1 ea TP .QDAILY #30 bandage 02/16/19 nutritional therapy glucose intolerance,lactose-free,soy oral liquid 1 ea PO .achs #1 unit 03/17/19 Dicyclomine HCl [Bentyl] 20 mg PO TIDAC #20 cap 03/18/19 Ondansetron [Zofran Odt] 4 mg PO Q6H PRN PRN #10 tab 03/18/19 Amox/Clavulanate Tablet [Augmentin Tablet] 875 mg PO BID #14 tablet 03/24/19 Oxycodone [Oxyir] 5 mg PO Q6H PRN 3 Days #12 tablet 03/24/19 Vancomcyin 125mg/5mL PO Liquid 125 mg PO Q6 17 Days #60 po.syringe 03/24/19 levoFLOXacin tablet [Levaquin tablet] 500 mg PO DAILY@0600 #7 tablet 03/24/19 Following Prescrptions Were Given to Patient: levoFLOXacin tablet [Levaquin tablet] 500 mg PO DAILY@0600 #7 tablet Vancomcyin 125mg/5mL PO Liquid 125 mg PO Q6 17 Days #60 po.syringe Amox/Clavulanate Tablet [Augmentin Tablet] 875 mg PO BID #14 tablet Oxycodone [Oxyir] 5 mg PO Q6H PRN 3 Days #12 tablet PRN Reason: Severe Pain (6-08/03) Primary Care Physician: Guido Miller MD [Primary Care Provider] - Within 2 Weeks Please Follow Up With: Guido Miller MD Please Follow Up With: [facility]astics in [place] When: next scheduled appointment. Disposition: Home Minutes spent on discharge:: 32 Patient Condition:: Good Medical Necessity - Tobacco Use Smoking Status: Former smoker Meaningful Use Info Meaningful Use Diagnoses (Choose all that apply): None applicable Code Visit Inpatient E&M: 53955 Disch Hosp
[2019-03-24 16:19] VITALS: BP 92/64; PULSE 67; RESP 18; TEMP 36.9; O2SAT 100
[2019-03-24 16:55] LABS: Bedside Glucose 357 mg/dL (70-110)
[2019-03-24] MEDS: Amox/Clavulanate 875 MG Tablet PO (17:11)
[2019-03-24 17:21] LABS: Bedside Glucose 151 mg/dL (70-110)
--- NOTE | 2019-03-28 16:54 | CASEMGMT ---
Case Managment DC F/u Call: Date of Admission: 03/20/19 Date of Discharge: 03/24/19 Discharge Home LACE/Strata: 04/02 - Primary Discharge Diagnosis Active and Suspected Problems Failure to thrive (Acute) Attempt to call patient Cell Phone listed on Demographics, No answer, Unable to authenticate number is correct to patient and therefore no VM left. Francisco Sanchez RNCM
== END 2019-03-24 19:22 | disposition home or self-care (01) | DRG 421 ==
LOC: ED 08:37 → MS3 16:27
PROVIDERS: Emergency Provider Emergency Medicine; Family Provider Internal Medicine; PCP Internal Medicine
DX: R62.7 Adult failure to thrive (principal); I95.1 Orthostatic hypotension; E11.65 Type 2 diabetes mellitus with hyperglycemia; R29.6 Repeated falls; E78.5 Hyperlipidemia, unspecified; B19.20 Unspecified viral hepatitis C without hepatic coma; E46 Unspecified protein-calorie malnutrition; I10 Essential (primary) hypertension; Z79.4 Long term (current) use of insulin; Z79.2 Long term (current) use of antibiotics; Z79.899 Other long term (current) drug therapy; Z87.891 Personal history of nicotine dependence; Z68.1 Body mass index [BMI] 19.9 or less, adult; E11.622 Type 2 diabetes mellitus with other skin ulcer; L98.493 Non-pressure chronic ulcer of skin of other sites with necrosis of muscle; M62.442 Contracture of muscle, left hand; S63.112A Subluxation of metacarpophalangeal joint of left thumb, initial encounter; X58.XXXA Exposure to other specified factors, initial encounter; Y93.9 Activity, unspecified; Y92.89 Other specified places as the place of occurrence of the external cause; Y99.8 Other external cause status; M65.9 Synovitis and tenosynovitis, unspecified; Z98.890 Other specified postprocedural states; L03.114 Cellulitis of left upper limb; B95.61 Methicillin susceptible Staphylococcus aureus infection as the cause of diseases classified elsewhere; R53.81 Other malaise; I33.0 Acute and subacute infective endocarditis; A04.72 Enterocolitis due to Clostridium difficile, not specified as recurrent; B96.1 Klebsiella pneumoniae [K. pneumoniae] as the cause of diseases classified elsewhere; B96.89 Other specified bacterial agents as the cause of diseases classified elsewhere; E44.0 Moderate protein-calorie malnutrition
CPT/HCPCS: 36415; 71045; 72070; 72100; 73130; 73560; 80048; 80053; 81001; 82009; 82533; 82962; 83605; 84484; 85025; 87070; 87075; 87077; 87186; 87205; 93005; 97161; 97166; 97802; 99285; J7030; J7040; A4216; J0834; J2405; J3490

== ENCOUNTER 2019-05-11 08:55 | Inpatient (IN) | payer MEDICAID, SELFPAY ==
[2019-04-18 16:10] VITALS: BMI 17.9
[2019-05-11] VITALS (14 sets, daily range): BP systolic 77–109; BP diastolic 56–77; PULSE 74–95; RESP 10–20; TEMP 36.4–36.6; O2SAT 96–100; BMI 14.9; BMI 14.2; BMI 14.3
--- NOTE | 2019-05-11 09:07 | RAD_ITS ---
STUDY: X-RAY CHEST REASON FOR EXAM: Male, 54 years old. Lower back injury due to a fall. TECHNIQUE: Single AP portable view of the chest. COMPARISON: Comparison is made with prior study dated March 20, 2019. FINDINGS: The lungs are clear and expanded. There is no demonstrated pleural abnormality. Normal size heart. Normal mediastinum and manuel. Normal visualized pulmonary arteries. Normal visualized aortic arch and descending thoracic aorta. Normal visualized thoracic spine. Normal visualized ribs, clavicles, and shoulders. There is no demonstrated abnormality of the visualized soft tissue structures of the upper abdomen. RAD/Chest 1 View (Portable) IMPRESSION: Normal x-ray examination of the chest. Electronically Signed: Nicolás Vinson, at 10:19 EDT , Service support ,
--- NOTE | 2019-05-11 09:07 | EKG12_ITS ---
Test Reason : FALL Blood Pressure : / mmHG Vent. Rate : 099 BPM Atrial Rate : 099 BPM P-R Int : 158 ms QRS Dur : 080 ms QT Int : 346 ms P-R-T Axes : 083 -30 081 degrees QTc Int : 444 ms Normal sinus rhythm Right atrial enlargement Indeterminate axis Pulmonary disease pattern Abnormal ECG Confirmed by ROSEANNA WILKES, BARRIE ([id number]), editor & co founder PAL CONNOLLY ([id number]) on 05/15/2019 12:48:12 PM Referred By: MR Confirmed By:BARRIE CONDON MD
--- NOTE | 2019-05-11 09:09 | RAD_ITS ---
STUDY: X-RAY - LUMBAR SPINE REASON FOR EXAM: Male, 54 years old. Low back pain and weakness following a fall. TECHNIQUE: 3 view(s) of the lumbar spine were obtained. COMPARISON: None FINDINGS: There is straightening of the normal lumbar lordosis. There is no substantial scoliosis. There is a normal alignment of the vertebrae. Marked degree of disc space narrowing and spondylosis at the L5-S1 level. The soft tissue structures are unremarkable. RAD/Lumbar Spine 2 or 3 Views IMPRESSION: Degenerative changes of the spine, as detailed above. Straightening of the normal lumbar lordosis. Electronically Signed: Nicolás Vinson, at 10:19 EDT , Service support ,
--- NOTE | 2019-05-11 09:20 | ED.DCSUM_ITS ---
History of Present Illness Chief Complaint: Fall Narrative: Patient presenting secondary to frequent falls, generalized weakness, and failure to thrive. Patient has a underlying history of failure to thrive, most recent admission for this was back in February. Patient lives at home with his does not have home care. Patient reports that he has frequent falls, most recently a couple days ago where he feels as if he injured his lower back. Patient states that he has had decreased p.o. intake over the course the last couple of days. He endorses that he has both nausea vomiting and diarrhea. He denies any presence of fevers. He basically complains of head to toe body pain. Past Medical History - Allergies and Home Meds Allergies/Adverse Reactions: Allergies morphine Allergy (Verified 04/18/19 16:06) headaches pt states gets very bad headaches from morphine fentanyl Adverse Reaction (Verified 04/18/19 16:06) Pt didn't like how it made him feel PT STATES HE DOES NOT LIKE HOW IT MAKES HIM FEEL. ketorolac [From Toradol] Adverse Reaction (Verified 04/18/19 16:06) real sluggish Primary Care Physician: Guido Miller MD [Primary Care Provider] - Surgical History: appendectomy, cholecystectomy, - - Incision and drainage with irrigation and excisional debridement complex necrotizing diabetic abscesses left thumb and thenar eminence into thenar space and dorsum hand over first webspace. Smoking Status: Former smoker - Family History Maternal Family History: Family History (Last Reviewed 03/20/19 @ 13:47 by Gabriel Zaidi DO) Father Diabetes Mother Diabetes Family History: Reports: Diabetes Paternal Family History: Family History (Last Reviewed 03/20/19 @ 13:47 by Gabriel Zaidi DO) Father Diabetes Mother Diabetes Family History: Reports: Heart Disease - CAD s/p CABG history. Patient notes that his paternal grandmother had diabetes. Review of Systems All systems negative except as indicated General: Reports: Malaise, Weight loss. Denies: Fever Respiratory: Reports: Dyspnea, Cough Gastrointestinal: Reports: Nausea, Vomiting, Diarrhea Musculoskeletal: Reports: Myalgias, Arthralgias, Back pain Physical Exam Vital Signs/Narrative: Vital Signs Temp Pulse Resp BP Pulse Ox 05/11/19 08:56 97.9 F 95 20 H 79/69 L 96 General: Cachectic Head: Normocephalic Eyes: Perrl, EOMI ENT: Dry mucous membranes Neck: Supple Cardiovascular: Regular rate, Regular rhythm, No murmurs Respiratory: No distress, CTA bilaterally Abdomen: Soft, Nontender Back: - - Stage I coccygeal pressure ulcer Extremities: No edema Skin: No rash Neurological: Alert, Oriented x3 Psychological: Depressed Diagnostic/Tx/Re-eval - EKG Initial EKG Interpretation: - - Sinus rhythm at 99 with a pulmonary disease pattern, but no evidence of ST elevation or T wave changes or any evidence of acute ischemia or arrhythmia. Normal NE and QTc intervals. - Medical Decision Making This is an exceptionally cachectic male presenting secondary to frequent falls back pain and difficulty with swallowing. IV was established laboratory studies were obtained. Patient was found to have leukocytosis and relatively significant kidney injury with a baseline creatinine of 0.5 and a current creatinine of over 2. Patient was also found to be somewhat hyponatremic. EKG was unremarkable. Chest and lumbar radiographs were also unremarkable. Patient's pain was controlled in the emergency department with Dilaudid, and he was given IV fluid hydration. I believe the patient requires admission for rehydration, and then potentially placement in a correction. ED Disposition - Plan for ED Patient: Disposition: Acute Care Hospital [facility] Diagnosis: Acute kidney injury, Decubitus ulcer, Failure to thrive
[2019-05-11 09:39] LABS: Absolute Lymphocyte Count 1.66 X10^3/uL (0.83-4.51); Absolute Neutrophil Count 10.9 X10^3/uL (2.0-7.7); Basophil# 0.04 X10^3/uL; Basophil% 0.3 % (0-1); Eosinophil# 0.03 X10^3/uL; Eosinophils% 0.2 % (0-5); Hematocrit 42.7 % (40-54); Lymphocyte # 1.66 X10^3/ul (4.0); Lymphocyte % 12.1 % (19-41); Mean Corp Hgb Conc 37.5 g/dL (32-36); Mean Corpuscular Hgb 31.4 pg (27.0-32.0); Mean Corpuscular Volume 83.9 fL (80-94); Mean Platelet Vol. 9.3 fl (6.2-12.0); Monocyte# 0.92 X10^3/uL; Monocyte% 6.7 % (0-10); NRBC Flagged by Analyzer 0 % (0-5); Neutrophil # 10.94 X10^3/uL (2.7-7.7); Neutrophil % 79.8 % (47-70); Platelet Count 346 K/mm3 (150-450); RBC Distribution Width CV 11.9 % (11.6-14.6); RBC Distribution Width SD 36.1 fl (35.1-43.9); Red Blood Count 5.09 M/mm3 (4.6-6.2); White Blood Count 13.7 K/mm3 (4.4-11.0)
[2019-05-11] MEDS: HYDROmorphone 0.5 MG/0.5 ML SYRINGE SC (09:41)
[2019-05-11 09:53] LABS: ALB/GLOB Ratio 0.5 RATIO (0.9-2.4); AST(SGOT) 28 U/L (15-37); Alanine Aminotransfer ALT/SGPT 58 U/L (16-61); Albumin, Serum 3.2 g/dL (3.2-5.0); Alkaline Phosphatase 175 U/L (45-117); Anion Gap 11 (5-15); BUN 75 mg/dL (7-18); BUN/Creat Ratio 27.8 RATIO (10-20); Calcium,Total 9.1 mg/dL (8.5-10.1); Chloride 94 mmol/L (98-107); EST Glomerular Filtration Rate 26 mL/min (>60); Est Glom Filt Rate - Afr Amer 32 mL/min (>60); Globulin 5.9 g/dL (2.2-4.2); Glucose 328 mg/dL (74-106); Potassium 3.9 mmol/L (3.5-5.1); Protein, Total 9.1 g/dL (6.4-8.2); Sodium Level 127 mmol/L (136-145)
[2019-05-11] MEDS: Lactated Ringers 1,000 ML 999 ML IV (10:08)
--- NOTE | 2019-05-11 10:12 | PCM.HP.STD ---
Problem List (1) Hyponatremia Status: Acute (2) Hypotension Status: Acute Qualifiers: Hypotension type: unspecified hypotension type Qualified Code(s): I95.9 - Hypotension, unspecified (3) Failure to thrive Status: Acute Qualifiers: Failure to thrive age range: in adult Qualified Code(s): R62.7 - Adult failure to thrive (4) Acute kidney injury Status: Acute (5) HLD (hyperlipidemia) Status: Chronic Qualifiers: Hyperlipidemia type: unspecified Qualified Code(s): E78.5 - Hyperlipidemia, unspecified (6) Hepatitis C antibody positive in blood Status: Chronic (7) Dysphagia Status: Chronic Qualifiers: Dysphagia type: unspecified Qualified Code(s): R13.10 - Dysphagia, unspecified (8) Malnutrition Status: Chronic Qualifiers: Malnutrition type: protein-calorie malnutrition (9) Anemia Status: Chronic Qualifiers: Anemia type: unspecified type Qualified Code(s): D64.9 - Anemia, unspecified (10) Lumbar canal stenosis Status: Chronic Qualifiers: Neurogenic claudication status: unspecified Qualified Code(s): M48.061 - Spinal stenosis, lumbar region without neurogenic claudication (11) Elevated liver enzymes Status: Chronic (12) Type 2 diabetes mellitus Status: Chronic Qualifiers: Diabetes mellitus exterminator helper insulin use: with jail use Diabetes mellitus complication status: with other specified complication Qualified Code(s): E11.69 - Type 2 diabetes mellitus with other specified complication; Z79.4 - 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 insulin (13) Chronic back pain Status: Chronic Qualifiers: Back pain location: back pain in unspecified location Back pain laterality: unspecified Qualified Code(s): M54.9 - Dorsalgia, unspecified; G89.29 - Other chronic pain (14) Hypertension Status: Chronic Qualifiers: Hypertension type: essential hypertension History of Present Illness Date of Admission: 05/11/19 Chief Complaint: Weakness, debility The patient is a 54 y/o M w/ PMHx: Hepatitis C w/ Chronically Elevated LFTs, Poorly controlled Diabetes mellitus type II, HTN, HLD, Chronic Pain Syndrome, Prior reported Pain regimen seeking behaviors, Former Tobacco use, History of prior Pancreatitis, History of Chronic Diarrhea of unclear etiology, History of Prior Clostridium difficile colitis, 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 Work-up in the ED included T 97.9, heart rate 95, BP initially 79/69 with improvement to 101/73 with IV fluids, respiratory rate 20, 96% on room air, CBC with W BC 13.7, hemoglobin 16, platelet 346 with a left shift CMP with sodium 127, chloride 94, BUN/creatinine 75/2.70, glucose 328, alk phos 175, troponin less than 0.015, EKG with no acute evidence of ischemia, chest x-ray with no acute cardiopulmonary findings, film lumbar spine given history of fall with degenerative changes and straightening of the normal lumbar lordosis but no acute injury. In the ED patient ministered aggressive lactated Ringer's fluid resuscitation. Past Medical History Past Medical History (Chronic Problems): Chronic Problems (Last Reviewed 03/20/19 @ 13:47 by Gabriel Zaidi DO) HLD (hyperlipidemia) (Chronic) Hepatitis C antibody positive in blood (Chronic) Dysphagia (Chronic) Malnutrition (Chronic) Anemia (Chronic) Lumbar canal stenosis (Chronic) Lumbar foraminal stenosis (Chronic) Unintentional weight loss (Chronic) Elevated liver enzymes (Chronic) Type 2 diabetes mellitus (Chronic) Chronic back pain (Chronic) Hypertension (Chronic) Ulcer of left great toe due to diabetes mellitus (Chronic) Diabetes mellitus type 2 (Chronic) uncontrolled Medical History: Medical History (Last Reviewed 03/20/19 @ 13:47 by Gabriel Zaidi DO) Chronic back pain (Chronic) M54.9, G89.29 Hypertension (Chronic) I10 Ulcer of left great toe due to diabetes mellitus (Chronic) E11.621, L97.529 Diabetes mellitus type 2 (Chronic) uncontrolled Allergies morphine Allergy (Verified 04/18/19 16:06) headaches pt states gets very bad headaches from morphine fentanyl Adverse Reaction (Verified 04/18/19 16:06) Pt didn't like how it made him feel PT STATES HE DOES NOT LIKE HOW IT MAKES HIM FEEL. ketorolac [From Toradol] Adverse Reaction (Verified 04/18/19 16:06) real sluggish Home Medications: Ambulatory Orders Medication Instructions Recorded Atorvastatin Calcium 40 mg PO QHS 11/14/18 Insulin Lispro [Humalog KwikPen] See Protocol SUBCUT TIDAC 02/15/19 insuln.pen Iron Polysaccharide Complex 150 mg PO DAILYCM #30 cap 02/15/19 [Ferrex 150] Magnesium Oxide [Mag-Ox 400] 400 mg PO DAILYCM #30 tab 02/15/19 Metoprolol Tartrate [Lopressor 25 mg PO BID #60 tab 02/15/19 (beta jass)] Pantoprazole Sodium [Protonix] 40 mg PO DAILY #30 tab 02/15/19 Sertraline HCl [Zoloft] 50 mg PO DAILY #30 tab 02/15/19 Gauze Bandage [Gauze Pads] 3 ea TP .QDAILY #90 bandage 02/16/19 Lactobacillus rhamnosus GG 10 1 cap PO DAILY #90 cap 04/18/19 billion cell capsule blood sugar diagnostic strips See Rx Instructions .ROUTE 04/18/19 .MEDSUPPLY #100 ea blood-glucose meter kit See Rx Instructions .ROUTE 04/18/19 .MEDSUPPLY #1 ea diaper,brief,adult,disposable See Rx Instructions .ROUTE 04/18/19 .MEDSUPPLY #76 ea lancets 28 gauge See Rx Instructions .ROUTE 04/18/19 .MEDSUPPLY #200 ea nutritional therapy glucose 1 ea PO .achs #1 unit 04/18/19 intolerance,lactose-free,soy oral liquid Amoxicillin/Potassium Clav [Amox 1 ea PO BID 05/11/19 Tr-K Clv 875-125 mg Tab] Cefadroxil [Duracef] 500 mg PO BID 05/11/19 Cholestyramine/Aspartame 4 gm PO Q24H PRN 05/11/19 [Cholestyramine Light Packet] Insulin Glargine,Hum.rec.anlog 18 unit SUBCUT DAILY 05/11/19 [Basaglar Kwikpen U-100] Insulin Lispro [Humalog KwikPen] 10 unit SQ TIDCM 05/11/19 Insulin Lispro [Humalog KwikPen] See Protocol SQ TIDCM 05/11/19 Levofloxacin 500 mg PO DAILY@0600 05/11/19 Lisinopril 5 mg PO DAILY 05/11/19 Mupirocin [Bactroban] 1 applic TOPICAL DAILY 05/11/19 Nifedipine [Nifedipine ER] 30 mg PO DAILY 05/11/19 traMADol [Ultram (G)] 50 mg PO BID 05/11/19 Surgical History: Surgical History (Last Reviewed 03/20/19 @ 13:47 by Gabriel Zaidi DO) History of appendectomy Z90.49 S/P laparoscopic cholecystectomy Z90.49 Surgical History: appendectomy, cholecystectomy, - - Incision and drainage with irrigation and excisional debridement complex necrotizing diabetic abscesses left thumb and thenar eminence into thenar space and dorsum hand over first webspace. Psychiatric History: No pertinent psych hx Lives: Spouse/ Significant Other Smoking Status: Former smoker Tobacco Use: Non-smoker Alcohol: None Drugs: None - *Family History Maternal Family History: Family History (Last Reviewed 03/20/19 @ 13:47 by Gabriel Zaidi DO) Father Diabetes Mother Diabetes History Items: Diabetes Paternal Family History: Family History (Last Reviewed 03/20/19 @ 13:47 by Gabriel Zaidi DO) Father Diabetes Mother Diabetes History Items: Heart Disease - CAD s/p CABG history. Patient notes that his paternal grandmother had diabetes. Review of Systems Constitutional: Reports: Anorexia, Malaise, Weakness, Weight Change, Fatigue. Denies: Chills, Fever HEENT: Reports: Difficulty Swallowing. Denies: Head Aches, Sinus Congestion, Sinus Drainage Cardiovascular: Denies: Chest Pain, Palpitations Respiratory: Reports: Shortness of breath upon exertion. Denies: Cough, Shortness of breath at rest, Sputum production Gastrointestinal: Reports: Abdominal Pain, Diarrhea. Denies: Nausea, Vomiting Genitourinary: Denies: Dysuria Musculoskeletal: Reports: Back Pain, Joint Pain. Denies: Joint Tenderness Skin: Reports: Skin Changes. Denies: Rash, Wounds Neurological: Denies: Numbness, Tingling, Focal weakness Psychiatric: Denies: Anxiety, Depression, Homicidal Ideations, Suicidal Ideations Hematologic/ Lymphatic: Reports: Anemia, Easy Bruising, Easy Bleeding VTE Information - Inpt Only VTE Present on Admission: No VTE Mechan Device Prophylaxis: SCD's VTE Pharm Prophylaxis ordered?: Yes Patient Problems: Active and Suspected Problems (Last Reviewed 03/20/19 @ 13:47 by Gabriel Zaidi DO) Failure to thrive (Acute) Acute kidney injury (Acute) Decubitus ulcer (Acute) Hyponatremia (Acute) Hypotension (Acute) Subjective: Seated upright in the bed, fatigued appearance, planing of lumbar back discomfort at this time. Objective: Physical Examination: General: awake, alert, oriented x 3 and cooperative, seated upright in the MS bed, currently eating, notes going slowly but does have abdominal cramping discomfort with usually meal intakes as well as loose stools he notes, notes lumbar back discomfort has been improving. Skin: normal color, turgor, no icterus, cyanosis except various abrasion, scabs, healed left hand status post recent infection and operative intervention. HEENT: AT/NC, EOMI, PERRLA, dry MM, no carotid bruits or JVD noted, poor dentition. Lungs: Decreased breath sounds bilaterally, greater bilateral bases, moderate effort, no rales, ronchi or wheezing. Heart: Regular rate and rhythm; no gallop, rub audible. Abdomen: soft, thin cachectic habitus, NTTP, + HM, normal BS currently. Extremities: no cyanosis, clubbing, or edema, poor hygiene noted. Neurological: patient awake, alert, oriented x 3; cognitive function intact; pupils equally reactive to light and accomodation; cranial nerves II-XII grossly normal, moving all 4 extremities, no focal deficits, strength severely globally decreased secondary to acute presentation. Psychiatric: affect appears fatigued, no acute evidence of depressive or anxiety feelings. - Physical Exam Vital Signs Temp Pulse Resp BP Pulse Ox 97.9 F 95 20 H 79/69 L 96 05/11/19 08:56 05/11/19 08:56 05/11/19 08:56 05/11/19 08:56 05/11/19 08:56 Oxygen Delivery Method Room Air Weight: 113 lb 5.082 oz Body Mass Index (BMI) 14.9 Finger Stick Blood Glucose 364 Laboratory Tests Past 24 Hrs 05/11/19 05/11/19 09:30 09:30 WBC 13.7 H RBC 5.09 Hgb 16.0 Hct 42.7 MCV 83.9 MCH 31.4 MCHC 37.5 H RDW Std Deviation 36.1 RDW Coeff of Glen 11.9 Plt Count 346 MPV 9.3 Immature Gran % (Auto) 0.900 Neut % (Auto) 79.8 H Lymph % (Auto) 12.1 L Ida % (Auto) 6.7 Eos % (Auto) 0.2 Baso % (Auto) 0.3 Absolute Neuts (auto) 10.9 H Absolute Lymphs (auto) 1.66 Absolute Nucleated RBC 0.00 Nucleated RBC % 0 Sodium 127 L Potassium 3.9 Chloride 94 L Carbon Dioxide 22.0 Anion Gap 11 BUN 75 H Creatinine 2.70 H Estim Creat Clear Calc 23.00 Est GFR (MDRD) Af Amer 32 L Est GFR (MDRD) Non-Af 26 L BUN/Creatinine Ratio 27.8 H Glucose 328 H Calcium 9.1 Total Bilirubin 0.50 AST 28 ALT 58 Alkaline Phosphatase 175 H Troponin I < 0.015 Total Protein 9.1 H Albumin 3.2 Globulin 5.9 H Albumin/Globulin Ratio 0.5 L Assessment/Plan All Active Problems (Last Reviewed 03/20/19 @ 13:47 by Gabriel Zaidi DO) Failure to thrive (Acute) Acute kidney injury (Acute) Decubitus ulcer (Acute) Hyponatremia (Acute) Hypotension (Acute) Necrotizing soft tissue infection (Acute) Abscess of dorsum of left hand (Acute) Abscess of bursa, left hand (Acute) Abscess of thumb, left (Acute) Suppurative tenosynovitis of flexor tendon of left hand (Acute) Sepsis (Acute) Cellulitis (Acute) Dehydration (Acute) Hypokalemia (Acute) MSSA bacteremia (Acute) Knee effusion, right (Acute) Knee pain, right (Acute) Acute pancreatitis (Resolved) Gastroenteritis (Resolved) The patient is a 54 y/o M w/ PMHx: Hepatitis C w/ Chronically Elevated LFTs, Poorly controlled Diabetes mellitus type II, HTN, HLD, Chronic Pain Syndrome, Prior reported Pain regimen seeking behaviors, Former Tobacco use, History of prior Pancreatitis, History of Chronic Diarrhea of unclear etiology, History of Prior Clostridium difficile colitis, 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 (1) Failure to thrive, adult with debility, weakness, frequent falls: Patient chronically debilitated and weak, progressively worsening status, cachectic, will continue medical treatments as noted #2, #3, #4 however necessitates PT, OT and case management consultations as likely will require intermediate facility placement. (2) Acute kidney injury: Secondary to GI losses and poor oral intake. Admission BUN/Cr 75/2.70, prior baseline creatinine noted to be 0.7. Will hydrate, hold nephrotoxic medications and repeat chemistry in AM. If no improvement would plan FeNa and renal US assessment. UA, UCx requested. (3) Hyponatremia, hypovolemic: Secondary to poor oral intake as well as GI losses, admission sodium 127, baseline from prior review 130-135 commonly, continue notable hydration, trend sodium level. (4) Hypotension: Secondary to poor oral intake and GI losses with as noted concurrent VU, hyponatremia, improved w/ ED administration IVFs, to be cautious will admit to MS with telemetry, continue to closely monitor, to new gentle hydration, pain on fall precautions. (5) Chronic Diarrhea: Unclear ossific etiology, does have clostridium to fill history, will obtain stool culture and C. difficile and if unremarkable will initiate antidiarrheal regimen, monitor TRISHA as this presentation could very well be contributing to #1, #2, #3, #4. (6) Dysphagia, Acute on Chronic w/ Noted Thrush: Initiate nystatin swish and swallow, speech consulted, alter diet as needed. (7) History of Hepatitis C: Prior labs 02/02/17 with noted + hepatitis C Ab confirmation, patient has been very lax about following up and have noted several attempts through the records to encourage appropriate evaluation. (8) Poorly Controlled Diabetes mellitus type II: Patient with long-standing history of poorly controlled diabetes, will continue home insulin regimen as well as scheduled short acting with nutrition consultation for as noted malnutrition, accu checks w/ ISS. (9) Chronic Pain Syndrome w/ Chronic Lumbar Back Pain w/ Stenosis, Radiculopathy: As noted recent falls, plain film of the spine in the ED unremarkable, will continue pain regimen although patient does have history of seeking behavior therefore will need to be cautious. (10) Hypertension: We will continue home metoprolol and nifedipine regimen with specific hold parameters given hypertensive presentation as well as, acute kidney injury. (11) Hyperlipidemia: Continue home statin regimen. (12) Tobacco Abuse: Encouraged continued cessation. (13) Severe Protein-Calorie Malnutrition: Evidenced per habitus, lower BMI, muscle and fat loss, nutrition consulted. (14) GERD: PPI. (15) DVT Prophylaxis: SCDs, lovenox. (16) CODE status: Discussed CODE status at length including difference between FULL code, DNR-CCA and DNR-CC status. Following discussions about the differences in these status, requested Full Code status. Advanced Care Planning Face to Face Time: 16 minutes. Code Visit Inpatient E&M: 18574 Init Hosp L3 Procedures: 06756 Advncd Care Plan 30 Min
--- NOTE | 2019-05-11 10:17 | NURSING ---
DR PERKINS FOR DR GONZALEZ
--- NOTE | 2019-05-11 10:23 | NURSING ---
MED SURG VU, FAILURE TO THRIVE WHITE
--- NOTE | 2019-05-11 10:35 | CM.ED ---
Social Work Assessment Referral Date: 05/11/19 Date of Assessment: 05/11/19 Informant: DR. GONZALEZ AND NURSEKYE Reason for Consult: D/C PLANNING Information obtained from: PATIENT Living Arrangements: PATIENT LIVES HOME WITH IN A 1 STORY APARTMENT DME: WALKER, 2 CANES AND BEDSIDE COMMODE. Employment/Financial: UNEMPLOYED, [employer] Supports: PATIENT REPORTS LIMITED SUPPORT AT HOME WORKS. Social/Family Stressors: PATIENT STATES HAS BEEN DECLINING AT HOME. PATIENT REPORTS SERIES OF FALLS AND HAS NOT BEEN ABLE TO EAT OR DRINK IN A LONG TIME. PATIENT STATES IS AFRAID TO GET UP AND WALK D/T FEAR OF FALLING. Mental Health History: PATIENT DENIES ANY HX OF MENTAL HEALTH Substance Abuse History: PATIENT DENIES ANY HX OF SUBSTANCE ABUSE Interventions: SOCIAL SERVICE ASSESSMENT COMPLETED CALL TO THE [facility]EN[facility] AT [place] TO UPDATE ON PATIENT'S STATUS AND REQUEST FOR THE AVENUE AT D/C. PLAN: ADMIT- PATIENT WILL REQUIRE PRECERT, REQUESTS REFERRAL TO THE AVENUE.
[2019-05-11] MEDS: Lactated Ringers 1,000 ML 125 ML IV (11:22)
[2019-05-11] MEDS: 0.9% Normal Saline 1,000 ML 125 ML IV ×2 (12:36→20:42)
[2019-05-11] MEDS: HYDROmorphone 0.5 MG/0.5 ML SYRINGE IV ×3 (12:40→21:18)
[2019-05-11 13:03] LABS: Magnesium 2.9 mg/dL (1.6-2.6); Phosphorus 4.4 mg/dL (2.5-4.9); T4 Free Direct 1.46 ng/dL (0.76-1.46); Thyroid Stim Hormone (TSH) 1.14 uIU/mL (0.358-3.74)
[2019-05-11] MEDS: NYSTATIN 500,000 UNIT/5 ML UDC 500000 UNIT PO ×3 (15:06→21:18)
[2019-05-11] MEDS: Insulin Lispro 100 UNIT/ML INSULN.PEN SC (17:05)
[2019-05-11] MEDS: Insulin Lispro 100 UNIT/ML INSULN.PEN 10 UNIT SC (17:05)
[2019-05-11 18:38] LABS: Bacteria 0 SEEN /hpf (None Seen); Mucous, Urine 0 SEEN /hpf (<or=2+); Red Blood Cells-Urine 0 SEEN /hpf (0-5); White Blood Cells 0 SEEN /hpf (0-5)
--- NOTE | 2019-05-11 18:39 | NURSING ---
explained to patient that a urine sample was need and the best way to collect sample is with a straight cath. pt refused straight cath but stated that he could do a clean catch. this RN assisted pt with clean catch urine sample.
[2019-05-11 18:48] LABS: Color, Urine Yellow (Yellow); Glucose, Dipstick 1000 mg/dl (Normal); Ketone-Dipstick Negative (Negative); Leukocyte Esterase-Dipstick Negative /ul (Negative); Nitrite-Dipstick Negative (Negative); Occult Blood-Urine Negative /ul (Negative); Protein-Dipstick 30 mg/dl (Negative); Specific Gravity, Urine 1.015 (1.002-1.030); Urine Bilirubin Dipstick Negative (Negative); Urine Clarity Sl. Cloudy (Clear); Urine Urobilinogen Normal (Normal)
[2019-05-11 19:04] LABS: Squamous Epithelial Cells - UA 0-5 SEEN /hpf (0-5)
[2019-05-11] MEDS: 0.9% NaCl Peripheral Flush Adult/Peds IV (21:18)
[2019-05-11] MEDS: Atorvastatin Calcium 40 MG Tablet PO (21:18)
[2019-05-11] MEDS: Heparin Injection (Vial) 5,000 UNIT/ML VIAL 5000 UNIT SC (21:22)
[2019-05-12] VITALS (13 sets, daily range): BP systolic 88–126; BP diastolic 64–80; PULSE 63–83; RESP 16–18; TEMP 36.3–36.9; O2SAT 88–100
[2019-05-12] MEDS: 0.9% NaCl Peripheral Flush Adult/Peds IV ×3 (01:24→22:10)
[2019-05-12] MEDS: HYDROmorphone 0.5 MG/0.5 ML SYRINGE IV ×6 (01:24→22:10)
[2019-05-12] MEDS: 0.9% Normal Saline 1,000 ML 125 ML IV ×3 (04:10→19:45)
[2019-05-12 06:07] LABS: ALB/GLOB Ratio 0.7 RATIO (0.9-2.4); AST(SGOT) 25 U/L (15-37); Alanine Aminotransfer ALT/SGPT 42 U/L (16-61); Albumin, Serum 2.6 g/dL (3.2-5.0); Alkaline Phosphatase 137 U/L (45-117); Anion Gap 11 (5-15); BUN 58 mg/dL (7-18); BUN/Creat Ratio 38.9 RATIO (10-20); Calcium,Total 8.3 mg/dL (8.5-10.1); Chloride 107 mmol/L (98-107); Creatinine, Serum 1.49 mg/dL (0.70-1.30); EST Glomerular Filtration Rate 52 mL/min (>60); Est Glom Filt Rate - Afr Amer 63 mL/min (>60); Globulin 3.8 g/dL (2.2-4.2); Glucose 62 mg/dL (74-106); Potassium 3.5 mmol/L (3.5-5.1); Protein, Total 6.4 g/dL (6.4-8.2); Sodium Level 136 mmol/L (136-145)
[2019-05-12 06:20] LABS: Absolute Lymphocyte Count 2.18 X10^3/uL (0.83-4.51); Absolute Neutrophil Count 8.5 X10^3/uL (2.0-7.7); Basophil# 0.03 X10^3/uL; Basophil% 0.3 % (0-1); Eosinophil# 0.05 X10^3/uL; Eosinophils% 0.4 % (0-5); Hematocrit 34.1 % (40-54); Hemoglobin 12.4 g/dL (13.0-16.5); Lymphocyte # 2.18 X10^3/ul (4.0); Lymphocyte % 18.6 % (19-41); Mean Corp Hgb Conc 36.4 g/dL (32-36); Mean Corpuscular Hgb 30.6 pg (27.0-32.0); Mean Corpuscular Volume 84.2 fL (80-94); Monocyte% 7.7 % (0-10); NRBC Flagged by Analyzer 0 % (0-5); Neutrophil # 8.46 X10^3/uL (2.7-7.7); Neutrophil % 72.1 % (47-70); Platelet Count 205 K/mm3 (150-450); RBC Distribution Width CV 11.9 % (11.6-14.6); RBC Distribution Width SD 36.4 fl (35.1-43.9); Red Blood Count 4.05 M/mm3 (4.6-6.2); White Blood Count 11.7 K/mm3 (4.4-11.0)
[2019-05-12 07:20] LABS: Bedside Glucose 364 mg/dL (70-110)
[2019-05-12 07:25] LABS: Bedside Glucose 274 mg/dL (70-110)
[2019-05-12 07:25] LABS: Bedside Glucose 292 mg/dL (70-110)
[2019-05-12 07:25] LABS: Bedside Glucose 90 mg/dL (70-110)
[2019-05-12 07:25] LABS: Bedside Glucose 73 mg/dL (70-110)
[2019-05-12 07:25] LABS: Bedside Glucose 66 mg/dL (70-110)
[2019-05-12] MEDS: Magnesium Oxide 400 MG Tablet PO (08:19)
[2019-05-12] MEDS: NIFEdipine 30 MG Tablet PO (08:19)
[2019-05-12] MEDS: Pantoprazole Sodium 40 MG Tablet PO (08:22)
[2019-05-12] MEDS: Sertraline 50 MG Tablet PO (08:22)
[2019-05-12] MEDS: Iron Polysaccharide Complex 150 MG CAPSULE PO (08:22)
[2019-05-12] MEDS: Metoprolol Tartrate 25 MG Tablet PO (08:22)
[2019-05-12] MEDS: Heparin Injection (Vial) 5,000 UNIT/ML VIAL 5000 UNIT SC ×2 (08:24→22:36)
[2019-05-12] MEDS: Glucerna Shake 120 ML LIQUID PO ×3 (08:26→16:44)
[2019-05-12] MEDS: Gabapentin 100 MG Capsule 200 MG PO ×2 (08:29→16:44)
--- NOTE | 2019-05-12 09:27 | PN_ITS ---
Patient Problems: Active and Suspected Problems (Last Reviewed 03/20/19 @ 13:47 by Gabriel Zaidi DO) Failure to thrive (Acute) Acute kidney injury (Acute) Decubitus ulcer (Acute) Hyponatremia (Acute) Hypotension (Acute) Subjective: Patient overnight with no acute events per self and per nursing report. He did have recurrent diarrhea and sample was sent with positive C. difficile colitis noted with initiation of oral vancomycin regimen. He did tolerate some oral food intake the evening prior. This morning he is requesting specifically that Dr. Rankin be consulted to assess his left hand as he missed his recent follow-up visit secondary to his current acute illness. He notes feeling improved since initial ED presentation. Patient denies fevers, chills, nausea, emesis, recurrent or worsened, abdominal pain, chest pain or dyspnea. Objective: Physical Examination: General: awake, alert, oriented x 3 and cooperative, seated upright bed, no acute distress, denies any acute cramping or abdominal discomfort this time, stools have improved. Skin: normal color, turgor, no icterus, cyanosis except various abrasion, scabs, healed left hand status post recent infection and operative intervention, posterior coccyx/sacral stage II pressure sore w/ mepliex in place currently. HEENT: AT/NC, EOMI, PERRLA, improved less dry MM. Lungs: Decreased breath sounds bilaterally, greater bilateral bases, moderate effort, no rales, ronchi or wheezing. Heart: Regular rate and rhythm; no gallop, rub audible. Abdomen: soft, thin cachectic habitus, mild discomfort with palpation although he notes improved, mildly hyperactive bowel sounds currently. Extremities: no cyanosis, clubbing, or edema, poor hygiene noted, LUE hand prior injury/infection healed, some TTP, worse over the thenar eminence. Neurological: patient awake, alert, oriented x 3; cognitive function intact; pupils equally reactive to light and accomodation; cranial nerves II-XII grossly normal, moving all 4 extremities, no focal deficits, strength mildly improved but remains, moderately to severely globally decreased secondary to acute presentation. Psychiatric: affect appears mildly irritable, less fatigued, no acute evidence of depressive or anxiety feelings. Vitals/I&O's: Vital Signs Temp Pulse Resp BP Pulse Ox 97.9 F 81 16 108/71 100 05/12/19 08:02 07/19/19 08:22 05/12/19 08:02 05/12/19 08:02 05/12/19 08:02 Oxygen Delivery Method Room Air Weight: 109 lb 9.116 oz Body Mass Index (BMI) 14.2 Finger Stick Blood Glucose 364 Intake and Output for Last 24 Hours 05/10/19 05/11/19 05/12/19 23:59 23:59 23:59 Intake Total 1189 / 2407 2413 / 2413 Output Total 350 / 350 350 / 350 Balance 839 / 2057 2062 / 206 Microbiology Past 72 Hours 05/12/19 00:49 Stool C. difficile DNA Amplification - Final Toxigenic C. difficile DNA Laboratory Results 05/11/19 09:30: WBC 13.7 H, RBC 5.09, Hgb 16.0, Hct 42.7, MCV 83.9, MCH 31.4, MCHC 37.5 H, RDW Std Deviation 36.1, RDW Coeff of [place] 11.9, Plt Count 346, MPV 9.3, Immature Gran % (Auto) 0.900, Neut % (Auto) 79.8 H, Lymph % (Auto) 12.1 L, [place] % (Auto) 6.7, Eos % (Auto) 0.2, Baso % (Auto) 0.3, Absolute Neuts (auto) 10.9 H, Absolute Lymphs (auto) 1.66, Absolute Nucleated RBC 0.00, Nucleated RBC % 0 05/11/19 09:30: Sodium 127 L, Potassium 3.9, Chloride 94 L, Carbon Dioxide 22.0, Anion Gap 11, BUN 75 H, Creatinine 2.70 H, Estim Creat Clear Calc 23.00, Est GFR (MDRD) Af Amer 32 L, Est GFR (MDRD) Non-Af 26 L, BUN/Creatinine Ratio 27.8 H, Glucose 328 H, Calcium 9.1, Total Bilirubin 0.50, AST 28, ALT 58, Alkaline Phosphatase 175 H, Troponin I < 0.015, Total Protein 9.1 H, Albumin 3.2, Globulin 5.9 H, Albumin/Globulin Ratio 0.5 L 05/11/19 09:30: Phosphorus 4.4, Magnesium 2.9 H, TSH 1.14, Free T4 1.46 05/11/19 09:58: POC Glucose 364 H 05/11/19 12:43: POC Glucose 274 H 05/11/19 17:02: POC Glucose 292 H 05/11/19 18:32: Urine Color Yellow, Urine Clarity Sl. Cloudy, Urine pH 5.0, Ur Specific [place] 1.015, Urine Protein 30 H, Urine Glucose (UA) 1000 H, Urine Ketones Negative, Urine Occult Blood Negative, Urine Nitrite Negative, Urine Bilirubin Negative, Urine Urobilinogen Normal, Ur Leukocyte Esterase Negative, Urine RBC 0 SEEN, Urine WBC 0 SEEN, Ur Squamous Epith Cells 0-5 SEEN, Urine Bacteria 0 SEEN, Urine Mucus 0 SEEN 05/11/19 22:23: POC Glucose 66 L 05/11/19 22:53: POC Glucose 90 05/12/19 05:18: WBC 11.7 H, RBC 4.05 L, Hgb 12.4 L, Hct 34.1 L, MCV 84.2, MCH 30.6, MCHC 36.4 H, RDW Std Deviation 36.4, RDW Coeff of [place] 11.9, Plt Count 205, MPV 11.0, Immature Gran % (Auto) 0.900, Neut % (Auto) 72.1 H, Lymph % (Auto) 18.6 L, Campbell % (Auto) 7.7, Eos % (Auto) 0.4, Baso % (Auto) 0.3, Absolute Neuts (auto) 8.5 H, Absolute Lymphs (auto) 2.18, Absolute Nucleated RBC 0.00, Nucleated RBC % 0 05/12/19 05:18: Sodium 136, Potassium 3.5, Chloride 107, Carbon Dioxide 18.0 L, Anion Gap 11, BUN 58 H, Creatinine 1.49 H, Estim Creat Clear Calc 40.30, Est GFR (MDRD) Af Amer 63, Est GFR (MDRD) Non-Af 52 L, BUN/Creatinine Ratio 38.9 H, Glucose 62 L, Calcium 8.3 L, Total Bilirubin 0.30, AST 25, ALT 42, Alkaline Phosphatase 137 H, Total Protein 6.4, Albumin 2.6 L, Globulin 3.8, Albumin/Globulin Ratio 0.7 L 05/12/19 06:43: POC Glucose 73 Current Medications Acetaminophen (Tylenol) 650 mg PO Q6H PRN PRN PRN Reason: Non-cardiac pain (mod-severe) Al Hydroxide/Mg Hydroxide (Mylanta Ii) 30 ml PO Q6H PRN PRN PRN Reason: Gastric Burning Albuterol Sulfate (Ventolin Aerosols) 2.5 mg INHALATION Q2H PRN PRN PRN Reason: dyspnea, wheezing Atorvastatin Calcium (Lipitor) 40 mg PO [facility] Last Admin: 05/11/19 21:18 Dose: 40 mg Documented by: Cholestyramine Resin (Questran 4gm Packet) 4 gm PO DAILY PRN PRN PRN Reason: IBS SYMPTOMS Dextrose (D50w Syringe) 0 gm IV X1 PRN; Protocol PRN Reason: Hypoglycemia [facility]) [facility] Last Admin: 05/12/19 08:29 Dose: 200 mg Documented by: Glucagon () 1 mg IM .X1 PRN PRN Reason: Hypoglycemia Heparin Sodium (Porcine) (Heparin Na) 5,000 unit SC Q12 [facility] Last Admin: 05/12/19 08:24 Dose: 5,000 unit Documented by: Hydralazine HCl (Apresoline Iv) 10 mg IV Q4H PRN PRN PRN Reason: SBP > 160 Hydromorphone HCl (Dilaudid Inj) 0.5 mg IV Q4H PRN PRN PRN Reason: Severe pain (7-10/10) Last Admin: 05/12/19 05:20 Dose: 0.5 mg Documented by: Sodium Chloride () 1,000 mls @ 125 mls/hr IV .Q8H [facility] Last Admin: 05/12/19 04:10 Dose: 125 mls/hr Documented by: Insulin Glargine (Lantus (Bkc)) 18 units SC DAILY [facility] Insulin Human Lispro (Humalog Kwikpen (Bkc)) 0 unit SC TIDAC [facility]; Protocol Last Admin: 05/12/19 06:58 Dose: Not Given Documented by: Insulin Human Lispro (Humalog Kwikpen (Bkc)) 10 unit SC TIDAC [facility] Last Admin: 05/12/19 08:12 Dose: Not Given Documented by: Lactobacillus Acidophilus ([facility]idophilus) [facility] Last Admin: 05/12/19 08:19 Dose: 1 tablet Documented by: Magnesium Oxide (Mag-Ox 400) [facility] Last Admin: 07/19/19 08:19 Dose: 400 mg Documented by: Melatonin (Melatonin) 3 mg PO QHS PRN PRN PRN Reason: INSOMNIA Metoprolol Tartrate (Lopressor (Beta Lakshmi)) 25 mg PO BID [facility] Last Admin: 05/12/19 08:22 Dose: 25 mg Documented by: Nifedipine (Procardia Xl) 30 mg PO DAILY [facility] Last Admin: 05/12/19 08:19 Dose: 30 mg Documented by: Nutritional Formula (Lactose Free) (Glucerna Shake) 120 ml PO TIDCM [facility] Last Admin: 05/12/19 08:26 Dose: 120 ml Documented by: Nystatin (Nystatin) 500,000 unit PO 4X/DAY [facility] Last Admin: 05/11/19 21:18 Dose: 500,000 unit Documented by: Ondansetron HCl (Zofran) 4 mg IV Q8H PRN PRN PRN Reason: NAUSEA/VOMITING Oxycodone HCl (Oxyir) 10 mg PO Q4H PRN PRN PRN Reason: SEVERE PAIN (6-10/10) Pantoprazole Sodium (Protonix) 40 mg PO DAILY [facility] Last Admin: 05/12/19 08:22 Dose: 40 mg Documented by: Polysaccharide Iron Complex (Ferrex 150) 150 mg PO DAILYCM [facility] Last Admin: 05/12/19 08:22 Dose: 150 mg Documented by: Sertraline HCl (Zoloft) 50 mg PO DAILY [facility] Last Admin: 05/12/19 08:22 Dose: 50 mg Documented by: Sodium Chloride () 10 - 40 ml IV UD PRN PRN Reason: SALINE FLUSH Last Admin: 05/12/19 05:20 Dose: 10 ml Documented by: Throat Lozenges (Cepacol Sore Throat Lozenge) 1 lozenge MUCOUS MEM Q2H PRN PRN PRN Reason: Sore throat or cough Tramadol HCl (Ultram) 50 mg PO BID [facility] Last Admin: 05/12/19 08:24 Dose: Not Given Documented by: Vancomycin HCl () 125 mg PO Q6 [facility] Last Admin: 05/12/19 03:41 Dose: 125 mg Documented by: Medical Necessity - Tobacco Use Smoking Status: Former smoker Tobacco Use: Non-smoker Assessment/Plan All Active Problems (Last Reviewed 03/20/19 @ 13:47 by Gabriel Zaidi DO) Failure to thrive (Acute) Acute kidney injury (Acute) Decubitus ulcer (Acute) Hyponatremia (Acute) Hypotension (Acute) Necrotizing soft tissue infection (Acute) Abscess of dorsum of left hand (Acute) Abscess of bursa, left hand (Acute) Abscess of thumb, left (Acute) Suppurative tenosynovitis of flexor tendon of left hand (Acute) Sepsis (Acute) Cellulitis (Acute) Dehydration (Acute) Hypokalemia (Acute) MSSA bacteremia (Acute) Knee effusion, right (Acute) Knee pain, right (Acute) Acute pancreatitis (Resolved) Gastroenteritis (Resolved) The patient is a 54 y/o M w/ PMHx: Hepatitis C w/ Chronically Elevated LFTs, Poorly controlled Diabetes mellitus type II, HTN, HLD, Chronic Pain Syndrome, Prior reported Pain regimen seeking behaviors, Former Tobacco use, History of prior Pancreatitis, History of Chronic Diarrhea of unclear etiology, History of Prior Clostridium difficile colitis, 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 (1) Acute on Chronic Diarrhea secondary to Acute Clostridium Difficile colitis w/ Hx prior infection: Stool cultures were obtained and C. difficile was positive with initiation of oral vancomycin, diarrhea lessening, likely acute component and current acute presentation given concurrent VU, hyponatremia, hypotension with failure to thrive. (2) Acute kidney injury: Secondary to GI losses and poor oral intake. Admission BUN/Cr 75/2.70, prior baseline creatinine noted to be 0.7. Hydrated, which will be continued in addition to hold on nephrotoxic medications, initiating oral vancomycin as noted for acute C. difficile colitis, repeat 05/12/19 BUN/Cr 58/1.49, improving. (3) Hyponatremia, hypovolemic: Secondary to poor oral intake as well as GI losses, admission sodium 127, baseline from prior review 130-135 commonly, continue notable hydration, trend sodium level. 05/12/19 Na 136, normalized. (4) Hypotension: Secondary to poor oral intake and GI losses with as noted concurrent VU, hyponatremia, improved w/ ED administration IVFs, to be cautious admitted to ID with telemetry. Patient blood pressures have been improving, assure appropriate small sized arm cuff given habitus, continue to trend and if remains appropriate will transition off telemetry. (5) Failure to thrive, adult with debility, weakness, frequent falls secondary to #1, #2, #3, #4L Patient chronically debilitated and weak, progressively worsening status given acute presentation as noted above, cachectic with severe malnutrition, will continue medical treatments as noted #1, #2, #3, #4 however necessitates PT, OT and case management consultations as likely will require long-term facility placement. (6) Dysphagia, Acute on Chronic w/ Noted Thrush: Initiated on nystatin swish and swallow, speech consulted with noted mild oral phase dysphagia secondary to an dentulous state and open sores in his mouth with recommendation for regular texture diet with thin liquids with small bites as well as small sips, encourage head of bed at 90 degrees, remain sitting upright for 30 minutes following oral intake. (7) History of Hepatitis C: Prior labs 02/02/17 with noted + hepatitis C Ab confirmation, patient has been very lax about following up and have noted several attempts through the records to encourage appropriate evaluation. (8) Poorly Controlled Diabetes mellitus type II w/ Episodes Hypoglycemia: Patient with long-standing history of poorly controlled diabetes, noted trending with hypoglycemic episodes, will discontinue scheduled short-acting with meals, transition insulin sliding scale to lower dosing and decrease his scheduled home long-acting insulin to one half dose with continued close monitoring. Nutrition consulted given malnutrition. (9) Chronic Pain Syndrome w/ Chronic Lumbar Back Pain w/ Stenosis, Radiculopathy: As noted recent falls, plain film of the spine in the ED unremarkable, will continue pain regimen although patient does have history of seeking behavior therefore will need to be cautious. (10) Hypertension: We will continue home metoprolol and nifedipine regimen with specific hold parameters given initial presentation with hypotension, acute kidney injury. (11) Hyperlipidemia: Continue home statin regimen. (12) Tobacco Abuse: Encouraged continued cessation. (13) Severe Protein-Calorie Malnutrition: Evidenced per habitus, lower BMI, muscle and fat loss, nutrition consulted. (14) GERD: PPI. (15) DVT Prophylaxis: SCDs, lovenox. (16) CODE status: Full Code. Code Visit Inpatient E&M: 86314 Subs Hosp L3
[2019-05-12] MEDS: NYSTATIN 500,000 UNIT/5 ML UDC 500000 UNIT PO ×4 (10:00→22:38)
--- NOTE | 2019-05-12 11:30 | CASEMGMT ---
Addendum entered by Odessa Jeter 05/12/19 13:23: Shi APARICIO updated pt on acceptance to [facility] pending pre-cert. MATTHEW placed green sheet, transportation forms, and completed convalescent 7000 in [facility] and placed on pt's chart in the event pre-cert is obtained. Addendum entered by Odessa Jeter 05/12/19 13:06: MATTHEW received message from Heavenly at [facility] stating she is able to accept pt and will submit for pre-cert. Plan: [facility] pending pre-cert ALESSANDRA Thurman Original Note: Social Work Note MATTHEW reviewed notes, pt and pt's are agreeable to pt going to [facility]. MATTHEW faxed referral to [facility]. MATTHEW placed a call to Heavenly at [facility] and provided referral. MATTHEW waiting for call back. Plan: [facility] pending acceptance and pre-cert ALESSANDRA Thurman
[2019-05-12 11:36] LABS: Bedside Glucose 92 mg/dL (70-110)
--- NOTE | 2019-05-12 14:18 | NURSING ---
pt c/o that meal trays are delivered cold. pt breakfast tray heated up before entering room, and pt still c/o that tray not right. educated pt on isolation precautions and that we heat up tray before entering the room.
[2019-05-12 15:20] LABS: Bedside Glucose 76 mg/dL (70-110)
--- NOTE | 2019-05-12 16:51 | CHAPLAIN ---
Type of Pastoral Visit _x__ Initial Visit ___ Follow-up Visit ___ On-call Visit ___ General Patient Visit ___ Spiritual Assessment ___ Family Conference ___ Bereavement ___ Rapid Response ___ Code Blue ___ Other (describe below) Pastoral Care Referral From _x__ Patient ___ Family ___ Nurse ___ Physician ___ Workplace Trainer And Assessor ___ Gynecologist ___ Other (describe below) Sacrament/Intervention _x__ Active listening ___ Anointing ___ Taoism ___ Bereavement ___ Communion _x__ Radha exploration ___ _x__ Life review _x__ Prayer ___ Reconciliation ___ Sacrament of Sick _x__ Supportive presence ___ Wedding ___ Other (describe below) Pastoral Comments patient is talkative and converses with his knowledge of the Bible and spiritual thoughts; pt asks wheel lacer and truer to come again to visit him
[2019-05-12 22:36] LABS: Bedside Glucose 94 mg/dL (70-110)
[2019-05-12] MEDS: Atorvastatin Calcium 40 MG Tablet PO (22:38)
[2019-05-13] VITALS (7 sets, daily range): BP systolic 102–130; BP diastolic 64–82; PULSE 65–78; RESP 16–18; TEMP 36.2–36.9; O2SAT 97–100
[2019-05-13] MEDS: 0.9% NaCl Peripheral Flush Adult/Peds IV ×2 (02:09→06:24)
[2019-05-13] MEDS: HYDROmorphone 0.5 MG/0.5 ML SYRINGE IV ×2 (02:10→06:24)
[2019-05-13] MEDS: 0.9% Normal Saline 1,000 ML 125 ML IV (03:52)
[2019-05-13] MEDS: Insulin Lispro 100 UNIT/ML INSULN.PEN SC ×3 (06:25→17:18)
[2019-05-13 06:45] LABS: Bedside Glucose 156 mg/dL (70-110)
[2019-05-13 06:50] LABS: Absolute Lymphocyte Count 1.71 X10^3/uL (0.83-4.51); Absolute Neutrophil Count 6.5 X10^3/uL (2.0-7.7); Basophil# 0.03 X10^3/uL; Basophil% 0.3 % (0-1); Eosinophil# 0.06 X10^3/uL; Eosinophils% 0.7 % (0-5); Hematocrit 32.9 % (40-54); Lymphocyte # 1.71 X10^3/ul (4.0); Lymphocyte % 18.6 % (19-41); Mean Corp Hgb Conc 36.5 g/dL (32-36); Mean Corpuscular Hgb 31.7 pg (27.0-32.0); Mean Platelet Vol. 9.4 fl (6.2-12.0); Monocyte# 0.83 X10^3/uL; NRBC Flagged by Analyzer 0 % (0-5); Neutrophil # 6.51 X10^3/uL (2.7-7.7); Neutrophil % 70.6 % (47-70); Platelet Count 227 K/mm3 (150-450); RBC Distribution Width CV 12.2 % (11.6-14.6); RBC Distribution Width SD 38.9 fl (35.1-43.9); Red Blood Count 3.78 M/mm3 (4.6-6.2); White Blood Count 9.2 K/mm3 (4.4-11.0)
--- NOTE | 2019-05-13 06:57 | PN_ITS ---
Patient Problems: Active and Suspected Problems (Last Reviewed 03/20/19 @ 13:47 by Gabriel Zaidi DO) Failure to thrive (Acute) Acute kidney injury (Acute) Decubitus ulcer (Acute) Hyponatremia (Acute) Hypotension (Acute) Subjective: Patient with no acute events overnight per nursing staff however per self continues to have discomfort and fatigue as well as weakness. Bowel movements have lessened. With nursing staff patient is extremely manipulative and continues to request several items and then when brought refuse these. He is also continuing to aggressively request IV narcotic therapy specifically and refuses any oral regimen. Patient denies fevers, chills, nausea, emesis, abdominal pain, chest pain or dyspnea. Objective: Physical Examination: General: awake, alert, oriented x 3 and cooperative, seated upright bed, no acute distress. Skin: normal color, turgor, no icterus, cyanosis except various abrasion, scabs, healed left hand status post recent infection and operative intervention, posterior coccyx/sacral stage II pressure sore w/ mepliex in place currently. HEENT: AT/NC, EOMI, PERRLA, MMM. Lungs: Decreased breath sounds bilaterally, greater bilateral bases, moderate effort, no rales, ronchi or wheezing. Heart: Regular rate and rhythm; no gallop, rub audible. Abdomen: soft, thin cachectic habitus, mild discomfort with palpation although he notes improved, mildly hyperactive bowel sounds currently. Extremities: no cyanosis, clubbing, or edema, poor hygiene noted, LUE hand prior injury/infection healed, some TTP, worse over the thenar eminence. Neurological: patient awake, alert, oriented x 3; cognitive function intact; pupils equally reactive to light and accomodation; cranial nerves II-XII grossly normal, moving all 4 extremities, no focal deficits, strength mildly improved but remains, moderately to severely globally decreased secondary to acute presentation. Psychiatric: affect appears mildly irritable with discussions AM, no acute evidence of depressive or anxiety feelings. Vitals/I&O's: Vital Signs Temp Pulse Resp BP Pulse Ox 97.4 F L 74 16 102/64 100 05/13/19 02:15 05/13/19 02:15 05/13/19 02:15 05/13/19 02:15 05/13/19 02:15 Oxygen Delivery Method Room Air Weight: 109 lb 9.116 oz Body Mass Index (BMI) 14.2 Finger Stick Blood Glucose 364 Intake and Output for Last 24 Hours 05/11/19 05/12/19 05/13/19 23:59 23:59 23:59 Intake Total 1189 / 2407 5700 / 5700 1264 / 1264 Output Total 350 / 350 350 / 350 Balance 839 / 2057 5350 / 5350 1264 / 1264 Microbiology Past 72 Hours 05/12/19 00:49 Stool Enteric Bacteriology - Final 05/12/19 00:49 Stool C. difficile DNA Amplification - Final Toxigenic C. difficile DNA Laboratory Results 05/11/19 09:58: POC Glucose 364 H 05/11/19 12:43: POC Glucose 274 H 05/11/19 17:02: POC Glucose 292 H 05/11/19 22:23: POC Glucose 66 L 05/11/19 22:53: POC Glucose 90 05/12/19 06:43: POC Glucose 73 05/12/19 11:12: POC Glucose 92 05/12/19 15:10: POC Glucose 76 05/12/19 22:08: POC Glucose 94 05/13/19 06:20: WBC 9.2, RBC 3.78 L, Hgb 12.0 L, Hct 32.9 L, MCV 87.0, MCH 31.7, MCHC 36.5 H, RDW Std Deviation 38.9, RDW Coeff of [place] 12.2, Plt Count 227, MPV 9.4, Immature Gran % (Auto) 0.800, Neut % (Auto) 70.6 H, Lymph % (Auto) 18.6 L, [place] % (Auto) 9.0, Eos % (Auto) 0.7, Baso % (Auto) 0.3, Absolute Neuts (auto) 6.5, Absolute Lymphs (auto) 1.71, Absolute Nucleated RBC 0.00, Nucleated RBC % 0 05/13/19 06:20: Sodium Pending, Potassium Pending, Chloride Pending, Carbon Dioxide Pending, Anion Gap Pending, BUN Pending, Creatinine Pending, Est GFR (MDRD) Af Amer Pending, Est GFR (MDRD) Non-Af Pending, BUN/Creatinine Ratio Pending, Glucose Pending, Calcium Pending, Total Bilirubin Pending, AST Pending, ALT Pending, Alkaline Phosphatase Pending, Total Protein Pending, Albumin Pending 05/13/19 06:22: POC Glucose 156 H Current Medications Acetaminophen (Tylenol) 650 mg PO Q6H PRN PRN PRN Reason: Non-cardiac pain (mod-severe) Al Hydroxide/Mg Hydroxide (Mylanta Ii) 30 ml PO Q6H PRN PRN PRN Reason: Gastric Burning Albuterol Sulfate (Ventolin Aerosols) 2.5 mg INHALATION Q2H PRN PRN PRN Reason: dyspnea, wheezing Atorvastatin Calcium (Lipitor) 40 mg PO [facility] Last Admin: 05/12/19 22:38 Dose: 40 mg Documented by: Cholestyramine Resin (Questran 4gm Packet) 4 gm PO DAILY PRN PRN PRN Reason: IBS SYMPTOMS Dextrose (D50w Syringe) 0 gm IV X1 PRN; Protocol PRN Reason: Hypoglycemia [facility]) [facility] Admin: 05/12/19 16:44 Dose: 200 mg Documented by: Glucagon () 1 mg IM .X1 PRN PRN Reason: Hypoglycemia Heparin Sodium (Porcine) (Heparin Na) 5,000 unit SC Q12 [facility] Last Admin: 05/12/19 22:36 Dose: 5,000 unit Documented by: Hydralazine HCl (Apresoline Iv) 10 mg IV Q4H PRN PRN PRN Reason: SBP > 160 Hydromorphone HCl (Dilaudid Inj) 0.5 mg IV Q4H PRN PRN PRN Reason: Severe pain (7-10/10) Last Admin: 05/13/19 06:24 Dose: 0.5 mg Documented by: Sodium Chloride () 1,000 mls @ 125 mls/hr IV .Q8H [facility] Last Admin: 05/13/19 03:52 Dose: 125 mls/hr Documented by: Insulin Glargine (Lantus (Bkc)) 9 units SC DAILY [facility] Last Admin: 05/12/19 10:00 Dose: 9 u Documented by: Insulin Human Lispro (Humalog Kwikpen (Bkc)) 0 unit SC TIDAC [facility]; Protocol Last Admin: 05/13/19 06:25 Dose: 1 units Documented by: Lactobacillus Acidophilus (Acidophilus) [facility] Last Admin: 07/19/19 08:19 Dose: 1 tablet Documented by: Magnesium Oxide (Mag-Ox 400) 400 mg PO DAILYCM [facility] Last Admin: 05/12/19 08:19 Dose: 400 mg Documented by: Melatonin (Melatonin) 3 mg PO QHS PRN PRN PRN Reason: INSOMNIA Metoprolol Tartrate (Lopressor (Beta Lakshmi)) 25 mg PO BID [facility] Last Admin: 05/12/19 22:32 Dose: Not Given Documented by: Nifedipine (Procardia Xl) 30 mg PO DAILY [facility] Last Admin: 05/12/19 08:19 Dose: 30 mg Documented by: Nutritional Formula (Lactose Free) (Glucerna Shake) 120 ml PO TIDCM [facility] Last Admin: 05/12/19 16:44 Dose: 120 ml Documented by: Nystatin (Nystatin) 500,000 unit PO 4X/DAY [facility] Last Admin: 05/12/19 22:38 Dose: 500,000 unit Documented by: Ondansetron HCl (Zofran) 4 mg IV Q8H PRN PRN PRN Reason: NAUSEA/VOMITING Oxycodone HCl (Oxyir) 10 mg PO Q4H PRN PRN PRN Reason: SEVERE PAIN (6-10/10) Pantoprazole Sodium (Protonix) 40 mg PO DAILY [facility] Last Admin: 05/12/19 08:22 Dose: 40 mg Documented by: Polysaccharide Iron Complex (Ferrex 150) [facility] Last Admin: 05/12/19 08:22 Dose: 150 mg Documented by: Sertraline HCl (Zoloft) 50 mg PO DAILY [facility] Last Admin: 05/12/19 08:22 Dose: 50 mg Documented by: Sodium Chloride () 10 - 40 ml IV UD PRN PRN Reason: SALINE FLUSH Last Admin: 05/13/19 06:24 Dose: 10 ml Documented by: Throat Lozenges (Cepacol Sore Throat Lozenge) 1 lozenge MUCOUS MEM Q2H PRN PRN PRN Reason: Sore throat or cough Tramadol HCl (Ultram) 50 mg PO BID [facility] Last Admin: 05/12/19 22:52 Dose: Not Given Documented by: Vancomycin HCl () 125 mg PO Q6 [facility] Last Admin: 05/13/19 06:36 Dose: 125 mg Documented by: Medical Necessity - Tobacco Use Smoking Status: Former smoker Tobacco Use: Non-smoker Assessment/Plan All Active Problems (Last Reviewed 03/20/19 @ 13:47 by Gabriel Zaidi DO) Failure to thrive (Acute) Acute kidney injury (Acute) Decubitus ulcer (Acute) Hyponatremia (Acute) Hypotension (Acute) Necrotizing soft tissue infection (Acute) Abscess of dorsum of left hand (Acute) Abscess of bursa, left hand (Acute) Abscess of thumb, left (Acute) Suppurative tenosynovitis of flexor tendon of left hand (Acute) Sepsis (Acute) Cellulitis (Acute) Dehydration (Acute) Hypokalemia (Acute) MSSA bacteremia (Acute) Knee effusion, right (Acute) Knee pain, right (Acute) Acute pancreatitis (Resolved) Gastroenteritis (Resolved) The patient is a 54 y/o M w/ PMHx: Hepatitis C w/ Chronically Elevated LFTs, Poorly controlled Diabetes mellitus type II, HTN, HLD, Chronic Pain Syndrome, Prior reported Pain regimen seeking behaviors, Former Tobacco use, History of prior Pancreatitis, History of Chronic Diarrhea of unclear etiology, History of Prior Clostridium difficile colitis, 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 (1) Acute on Chronic Diarrhea secondary to Acute Clostridium Difficile colitis w/ Hx prior infection: Stool cultures were obtained and C. difficile was positive with initiation of oral vancomycin, diarrhea lessening, likely acute component and current acute presentation given concurrent VU, hyponatremia, hypotension with failure to thrive. 05/13/19 CBC w/ WBC 9.2, HGb 12, Plts 227 with resolved shift, remains afebrile, stable BP low normal range. PT, OT, CM consulted, planning SNF discharge once appropriate, suspect Wednesday as will need pre-certification. 05/13/19 CBC w/ WBC 9.2, Hgb 12, Plts 227 with resolved shift. (2) Acute kidney injury: Secondary to GI losses and poor oral intake. Admission BUN/Cr 75/2.70, prior baseline creatinine noted to be 0.7. Hydrated, which will be continued in addition to hold on nephrotoxic medications, initiating oral vancomycin as noted for acute C. difficile colitis, improving, 05/12/19 BUN/Cr 58/1.49-->05/13/19 BUN/Cr 36/1.29. (3) Hyponatremia, hypovolemic: Secondary to poor oral intake as well as GI losses, admission sodium 127, baseline from prior review 130-135 commonly, continue hydration, trending BMP, 05/12/19 Na 136-->05/13/19 Na 134. (4) Hypotension: Secondary to poor oral intake and GI losses with as noted concurrent VU, hyponatremia, improved w/ ED administration IVFs, to be cautious admitted to [place] with telemetry. Patient blood pressures have been improving, assure appropriate small sized arm cuff given habitus, clinically improved w/ normalized low normal BP with discontinuation 05/12/19 telemetry. (5) Failure to thrive, adult with debility, weakness, frequent falls secondary to #1, #2, #3, #4L Patient chronically debilitated and weak, progressively worsening status given acute presentation as noted above, cachectic with severe malnutrition, will continue medical treatments as noted #1, #2, #3, #4 however necessitates PT, OT and case management consultations as likely will require senior care facility placement. (6) Dysphagia, Acute on Chronic w/ Noted Thrush: Initiated on nystatin swish and swallow, speech consulted with noted mild oral phase dysphagia secondary to an dentulous state and open sores in his mouth with recommendation for regular texture diet with thin liquids with small bites as well as small sips, encourage head of bed at 90 degrees, remain sitting upright for 30 minutes following oral intake. (7) History of Hepatitis C: Prior labs 02/02/17 with noted + hepatitis C Ab confirmation, patient has been very lax about following up and have noted several attempts through the records to encourage appropriate evaluation. (8) Poorly Controlled Diabetes mellitus type II w/ Episodes Hypoglycemia: Patient with long-standing history of poorly controlled diabetes, noted trending with hypoglycemic episodes, BS now 70-150s, had prior discontinued scheduled short-acting with meals and decreased home long-acting x 1/2, but ongoing low dose BS, thus will discontinue long-acting and continue to trend and adjust as needed with continuation of low dose ISS. Nutrition consulted given malnutrition. (9) Chronic Pain Syndrome w/ Chronic Lumbar Back Pain w/ Stenosis, Radiculopathy: As noted recent falls, plain film of the spine in the ED unremarkable, will continue oral pain regimen with now discontinuation of his IV regimen as refusing oral option, does have notable history of seeking behavior therefore will need to be cautious. (10) Hypertension: We will continue home metoprolol and nifedipine regimen with specific hold parameters given initial presentation with hypotension, acute kidney injury. (11) Hyperlipidemia: Continue home statin regimen. (12) Tobacco Abuse: Encouraged continued cessation. (13) Severe Protein-Calorie Malnutrition: Evidenced per habitus, lower BMI, muscle and fat loss, nutrition consulted. (14) GERD: PPI. (15) DVT Prophylaxis: SCDs, lovenox. (16) CODE status: Full Code. Code Visit Inpatient E&M: 78616 Subs Hosp L2
[2019-05-13 07:24] LABS: BUN 36 mg/dL (7-18); Creatinine, Serum 1.29 mg/dL (0.70-1.30); Estimated Creatinine Clearance 46.55 ml/min; Glucose 141 mg/dL (74-106)
[2019-05-13 07:25] LABS: ALB/GLOB Ratio 0.6 RATIO (0.9-2.4); AST(SGOT) 20 U/L (15-37); Alanine Aminotransfer ALT/SGPT 32 U/L (16-61); Albumin, Serum 2.5 g/dL (3.2-5.0); Alkaline Phosphatase 142 U/L (45-117); Anion Gap 3 (5-15); BUN/Creat Ratio 27.9 RATIO (10-20); Calcium,Total 8.1 mg/dL (8.5-10.1); Chloride 112 mmol/L (98-107); EST Glomerular Filtration Rate 62 mL/min (>60); Est Glom Filt Rate - Afr Amer 75 mL/min (>60); Globulin 4.1 g/dL (2.2-4.2); Potassium 4.1 mmol/L (3.5-5.1); Protein, Total 6.6 g/dL (6.4-8.2); Sodium Level 134 mmol/L (136-145)
[2019-05-13] MEDS: Sertraline 50 MG Tablet PO (09:36)
[2019-05-13] MEDS: Gabapentin 100 MG Capsule 200 MG PO ×2 (09:36→17:15)
[2019-05-13] MEDS: Magnesium Oxide 400 MG Tablet PO (09:36)
[2019-05-13] MEDS: oxyCODONE 5 MG Tablet 10 MG PO ×3 (09:36→19:03)
[2019-05-13] MEDS: Metoprolol Tartrate 25 MG Tablet PO ×2 (09:36→21:32)
[2019-05-13] MEDS: NIFEdipine 30 MG Tablet PO (09:36)
[2019-05-13] MEDS: Pantoprazole Sodium 40 MG Tablet PO (09:36)
[2019-05-13] MEDS: Heparin Injection (Vial) 5,000 UNIT/ML VIAL 5000 UNIT SC ×2 (09:37→21:34)
[2019-05-13] MEDS: Iron Polysaccharide Complex 150 MG CAPSULE PO (09:37)
[2019-05-13] MEDS: traMADol 50 MG Tablet PO ×2 (09:37→21:34)
[2019-05-13] MEDS: NYSTATIN 500,000 UNIT/5 ML UDC 500000 UNIT PO ×4 (09:37→21:33)
[2019-05-13] MEDS: Glucerna Shake 120 ML LIQUID PO ×3 (09:48→17:15)
--- NOTE | 2019-05-13 09:50 | NURSING ---
ns changed rate to 75 per order at this time. Pt notified that dilaudid IV has been d/c'ed. pt requested prn pain pill-that had been previously refused. rates pain 8-9/10 to tailbone/ back, however- non verbal rating 0/10
[2019-05-13] MEDS: 0.9% Normal Saline 1,000 ML 75 ML IV ×2 (11:15→21:34)
[2019-05-13 11:41] LABS: Bedside Glucose 169 mg/dL (70-110)
--- NOTE | 2019-05-13 14:34 | NURSING ---
Pt non-verbal scale= 0/10. However, pt reports that his pain is a 9/10 and that the PO pain meds are ineffective. Caden angry and states he wants to see someone who is in charge. He reports that he should be the one who has the decision as to whether he takes oxyir or dilaudid and he should have been consulted before decision was made. This RN notified pt that IV pain meds will not continue at [facility] and that PO pain meds were given prior to next dose of dilaudid was due to ensure that oxyir would be working and pt pain would remain managed. Notified pt that his non-verbal pain scale is a 0/10 and that narcotics can do more harm that good at times. Pt aware of result of negative CXR and lumbar spine. Pt states if he doesn't get what he wants he might not be here tomorrow. Notified pt that is his right and he doesn't have to stay if he chooses not to. Pt verbally manipulative and states that after this stay he will make sure upper management is aware. Emotional support provided by this RN to which pt was resistant and due to threats of calling DON and deescalation not effective, this RN removed self from situation and notified mariama Barrett RN.
--- NOTE | 2019-05-13 16:05 | NURSING ---
into talk w/ patient after conversation with primary RN regarding pt's upset with treatment. Spent approx. 20minutes talking with pt regarding treatment and plan of care. Pt difficult to keep on track as continues to discuss previous admission and care. Pt verbalized upset stating he had not seen Dr. aZfar this am and she had not discussed discontinuing Dilaudid prior to DC'ing it. Pt verbalized he felt staff including physician was whispering while in the room. Discussed medical problems as stated in progress notes and plan of care. Emotional support given. At this time pt verbalized understanding of plan of care and repeatedly refused offer for this nurse to ask Dr. Zafar to come and talk with him. Pt given number for patient advocate and denies further needs. call light within reach. Primary RN updated.
[2019-05-13 17:46] LABS: Bedside Glucose 170 mg/dL (70-110)
[2019-05-13] MEDS: Atorvastatin Calcium 40 MG Tablet PO (21:34)
[2019-05-13 21:55] LABS: Bedside Glucose 139 mg/dL (70-110)
--- NOTE | 2019-05-14 00:21 | NURSING ---
Patient asked this nurse if later on he could have his fried chicken heated. This nurse explained and educated patient that because he is in isolation precautions and because of his CDiff this nurse would not be able to heat his chicken up. Patient was not happy with this answer and talked to the charge nurse about his chicken being heated up. After talking with charge nurse this patient told this nurse that he would be able to have his chicken heated up if put on a paper plate and the microwave wiped out. This nurse was still not agreeable to heating patient's chicken up in the Microwave because he has Cdiff and is in isolation precautions and does not want to put other patient's on the floor at risk. Patient became angry and upset and requested of the charge nurse a new nurse take care of him because he did not like this nurses attitude.
[2019-05-14 03:15] VITALS: BP 100/61; PULSE 63; RESP 18; TEMP 36.5; O2SAT 97
[2019-05-14 06:09] LABS: Absolute Lymphocyte Count 1.61 X10^3/uL (0.83-4.51); Absolute Neutrophil Count 5.4 X10^3/uL (2.0-7.7); Basophil# 0.03 X10^3/uL; Basophil% 0.4 % (0-1); Eosinophil# 0.04 X10^3/uL; Eosinophils% 0.5 % (0-5); Hematocrit 33.2 % (40-54); Hemoglobin 12.1 g/dL (13.0-16.5); Lymphocyte # 1.61 X10^3/ul (4.0); Lymphocyte % 20.8 % (19-41); Mean Corp Hgb Conc 36.4 g/dL (32-36); Mean Corpuscular Hgb 31.7 pg (27.0-32.0); Mean Corpuscular Volume 86.9 fL (80-94); Mean Platelet Vol. 10.3 fl (6.2-12.0); Monocyte# 0.61 X10^3/uL; Monocyte% 7.9 % (0-10); NRBC Flagged by Analyzer 0 % (0-5); Neutrophil # 5.36 X10^3/uL (2.7-7.7); Neutrophil % 69.4 % (47-70); Platelet Count 183 K/mm3 (150-450); RBC Distribution Width CV 12.4 % (11.6-14.6); RBC Distribution Width SD 39.6 fl (35.1-43.9); Red Blood Count 3.82 M/mm3 (4.6-6.2); White Blood Count 7.7 K/mm3 (4.4-11.0)
[2019-05-14 06:29] LABS: ALB/GLOB Ratio 0.6 RATIO (0.9-2.4); AST(SGOT) 18 U/L (15-37); Alanine Aminotransfer ALT/SGPT 29 U/L (16-61); Albumin, Serum 2.5 g/dL (3.2-5.0); Alkaline Phosphatase 134 U/L (45-117); Anion Gap 9 (5-15); BUN 23 mg/dL (7-18); BUN/Creat Ratio 18.1 RATIO (10-20); Calcium,Total 8.1 mg/dL (8.5-10.1); Chloride 114 mmol/L (98-107); Creatinine, Serum 1.27 mg/dL (0.70-1.30); EST Glomerular Filtration Rate 63 mL/min (>60); Est Glom Filt Rate - Afr Amer 76 mL/min (>60); Estimated Creatinine Clearance 47.29 ml/min; Glucose 212 mg/dL (74-106); Potassium 4.3 mmol/L (3.5-5.1); Protein, Total 6.5 g/dL (6.4-8.2); Sodium Level 142 mmol/L (136-145)
[2019-05-14] MEDS: Insulin Lispro 100 UNIT/ML INSULN.PEN SC ×3 (06:41→18:13)
--- NOTE | 2019-05-14 06:49 | PCM.PN.HOSP ---
Patient Problems: Active and Suspected Problems (Last Reviewed 03/20/19 @ 13:47 by Gabriel Zaidi DO) Failure to thrive (Acute) Acute kidney injury (Acute) Decubitus ulcer (Acute) Hyponatremia (Acute) Hypotension (Acute) Subjective: Patient overnight with no acute events per self and per nursing report. Patient stools nearly resolved with only 2 loose stools a day prior and nothing overnight per nursing report. Patient today is complaining of some back and specifically neck discomfort and states that this is severe and he is requesting that his IV pain regimen be returned. Had lengthy discussion with patient that we would not be giving him additional IV pain medications at this time but could further broaden his oral regimen as starting Wednesday attempts for detention placement would begin and patient noted being amenable at this time. Patient denies fevers, chills, nausea, emesis, abdominal pain, chest pain or dyspnea. Objective: Physical Examination: General: awake, alert, oriented x 3 and cooperative, seated upright bed, no acute distress. Skin: normal color, turgor, no icterus, cyanosis except various abrasion, scabs, healed left hand status post recent infection and operative intervention, posterior coccyx/sacral stage II pressure sore w/ mepliex in place currently. HEENT: AT/NC, EOMI, PERRLA, MMM, grimacing notes discomfort with palpation of the paraspinous muscles of the cervical region. Lungs: Decreased breath sounds bilaterally, greater bilateral bases, moderate effort, no rales, ronchi or wheezing. Heart: Regular rate and rhythm; no gallop, rub audible. Abdomen: soft, thin cachectic habitus, notes discomfort to the abdomen just with a soft touch of the skin but with distraction no pain with palpation, normalized bowel sounds, distended. Extremities: no cyanosis, clubbing, or edema, poor hygiene noted, LUE hand prior injury/infection healed, some TTP, worse over the thenar eminence. Neurological: patient awake, alert, oriented x 3; cognitive function intact; pupils equally reactive to light and accomodation; cranial nerves II-XII grossly normal, moving all 4 extremities, no focal deficits, strength proving, moderately globally decreased secondary to acute presentation. Psychiatric: affect appears normal, noting he has cervical neck discomfort, no acute evidence of depressive or anxiety feelings. Vitals/I&O's: Vital Signs Temp Pulse Resp BP Pulse Ox 97.7 F L 63 18 100/61 97 05/14/19 03:15 05/14/19 03:15 05/14/19 03:15 05/14/19 03:15 05/14/19 03:15 Oxygen Delivery Method Room Air Weight: 109 lb 9.116 oz Body Mass Index (BMI) 14.2 Finger Stick Blood Glucose 364 Intake and Output for Last 24 Hours 05/12/19 05/13/19 05/14/19 23:59 23:59 23:59 Intake Total 5700 / 5700 3623 / 4290 907 / 907 Output Total 350 / 350 200 / 200 Balance 5350 / 5350 3623 / 4090 707 / 707 Microbiology Past 72 Hours 05/11/19 18:32 Urine, Clean Catch Urine Culture - Final Mixed Gram Positive Organisms 05/12/19 00:49 Stool Enteric Bacteriology - Final 05/12/19 00:49 Stool C. difficile DNA Amplification - Final Toxigenic C. difficile DNA Laboratory Results 05/13/19 06:20: WBC 9.2, RBC 3.78 L, Hgb 12.0 L, Hct 32.9 L, MCV 87.0, MCH 31.7, MCHC 36.5 H, RDW Std Deviation 38.9, RDW Coeff of [place] 12.2, Plt Count 227, MPV 9.4, Immature Gran % (Auto) 0.800, Neut % (Auto) 70.6 H, Lymph % (Auto) 18.6 L, [place] % (Auto) 9.0, Eos % (Auto) 0.7, Baso % (Auto) 0.3, Absolute Neuts (auto) 6.5, Absolute Lymphs (auto) 1.71, Absolute Nucleated RBC 0.00, Nucleated RBC % 0 05/13/19 06:20: Sodium 134 L, Potassium 4.1, Chloride 112 H, Carbon Dioxide 19.0 L, Anion Gap 3 L, BUN 36 H, Creatinine 1.29, Estim Creat Clear Calc 46.55, Est GFR (MDRD) Af Amer 75, Est GFR (MDRD) Non-Af 62, BUN/Creatinine Ratio 27.9 H, Glucose 141 H, Calcium 8.1 L, Total Bilirubin 0.30, AST 20, ALT 32, Alkaline Phosphatase 142 H, Total Protein 6.6, Albumin 2.5 L, Globulin 4.1, Albumin/Globulin Ratio 0.6 L 05/13/19 11:08: POC Glucose 169 H 05/13/19 17:14: POC Glucose 170 H 05/13/19 21:28: POC Glucose 139 H 05/14/19 05:33: WBC 7.7, RBC 3.82 L, Hgb 12.1 L, Hct 33.2 L, MCV 86.9, MCH 31.7, MCHC 36.4 H, RDW Std Deviation 39.6, RDW Coeff of [place] 12.4, Plt Count 183, MPV 10.3, Immature Gran % (Auto) 1.000 H, Neut % (Auto) 69.4, Lymph % (Auto) 20.8, [place] % (Auto) 7.9, Eos % (Auto) 0.5, Baso % (Auto) 0.4, Absolute Neuts (auto) 5.4, Absolute Lymphs (auto) 1.61, Absolute Nucleated RBC 0.00, Nucleated RBC % 0 05/14/19 05:33: Sodium 142, Potassium 4.3, Chloride 114 H, Carbon Dioxide 19.0 L, Anion Gap 9, BUN 23 H, Creatinine 1.27, Estim Creat Clear Calc 47.29, Est GFR (MDRD) Af Amer 76, Est GFR (MDRD) Non-Af 63, BUN/Creatinine Ratio 18.1, Glucose 212 H, Calcium 8.1 L, Total Bilirubin 0.20, AST 18, ALT 29, Alkaline Phosphatase 134 H, Total Protein 6.5, Albumin 2.5 L, Globulin 4.0, Albumin/Globulin Ratio 0.6 L Current Medications Acetaminophen (Tylenol) 650 mg PO Q6H PRN PRN PRN Reason: Non-cardiac pain (mod-severe) Al Hydroxide/Mg Hydroxide (Mylanta Ii) 30 ml PO Q6H PRN PRN PRN Reason: Gastric Burning Albuterol Sulfate (Ventolin Aerosols) 2.5 mg INHALATION Q2H PRN PRN PRN Reason: dyspnea, wheezing Atorvastatin Calcium (Lipitor) 40 mg PO HS [facility] Last Admin: 05/13/19 21:34 Dose: 40 mg Documented by: Cholestyramine Resin (Questran 4gm Packet) 4 gm PO DAILY PRN PRN PRN Reason: IBS SYMPTOMS Dextrose (D50w Syringe) 0 gm IV X1 PRN; Protocol PRN Reason: Hypoglycemia [facility]) [facility] Last Admin: 05/13/19 17:15 Dose: 200 mg Documented by: Glucagon () 1 mg IM .X1 PRN PRN Reason: Hypoglycemia Heparin Sodium (Porcine) (Heparin Na) 5,000 unit SC Q12 [facility] Last Admin: 05/13/19 21:34 Dose: 5,000 unit Documented by: Hydralazine HCl (Apresoline Iv) 10 mg IV Q4H PRN PRN PRN Reason: SBP > 160 Sodium Chloride () 1,000 mls @ 75 mls/hr IV .[id number] [facility] Last Admin: 05/13/19 21:34 Dose: 75 mls/hr Documented by: Insulin Human Lispro (Humalog Kwikpen (Bkc)) 0 unit SC TIDAC [facility]; Protocol Last Admin: 05/14/19 06:41 Dose: 1 units Documented by: Lactobacillus Acidophilus (Acidophilus) 1 tablet [facility] Last Admin: 05/13/19 09:36 Dose: 1 tablet Documented by: Magnesium Oxide (Mag-Ox 400) 400 [facility] Last Admin: 05/13/19 09:36 Dose: 400 mg Documented by: Melatonin (Melatonin) 3 mg PO QHS PRN PRN PRN Reason: INSOMNIA Metoprolol Tartrate (Lopressor (Beta Lakshmi)) 25 mg PO BID [facility] Last Admin: 05/13/19 21:32 Dose: 25 mg Documented by: Nifedipine (Procardia Xl) 30 mg PO DAILY [facility] Last Admin: 05/13/19 09:36 Dose: 30 mg Documented by: Nutritional Formula (Lactose Free) (Glucerna Shake) 120 ml PO TIDCM [facility] Last Admin: 05/13/19 17:15 Dose: 120 ml Documented by: Nystatin (Nystatin) 500,000 unit PO 4X/DAY [facility] Last Admin: 05/13/19 21:33 Dose: 500,000 unit Documented by: Ondansetron HCl (Zofran) 4 mg IV Q8H PRN PRN PRN Reason: NAUSEA/VOMITING Oxycodone HCl (Oxyir) 10 mg PO Q4H PRN PRN PRN Reason: SEVERE PAIN (6-10/10) Last Admin: 05/13/19 19:03 Dose: 10 mg Documented by: Pantoprazole Sodium (Protonix) 40 mg PO DAILY [facility] Last Admin: 05/13/19 09:36 Dose: 40 mg Documented by: Polysaccharide Iron Complex (Ferrex 150) 150 mg PO DAILYCM [facility] Last Admin: 05/13/19 09:37 Dose: 150 mg Documented by: Sertraline HCl (Zoloft) 50 mg PO DAILY [facility] Last Admin: 05/13/19 09:36 Dose: 50 mg Documented by: Sodium Chloride () 10 - 40 ml IV UD PRN PRN Reason: SALINE FLUSH Last Admin: 05/13/19 06:24 Dose: 10 ml Documented by: Throat Lozenges (Cepacol Sore Throat Lozenge) 1 lozenge MUCOUS MEM Q2H PRN PRN PRN Reason: Sore throat or cough Tramadol HCl (Ultram) 50 mg PO BID [facility] Last Admin: 05/13/19 21:34 Dose: 50 mg Documented by: Vancomycin HCl () 125 mg PO Q6 [facility] Last Admin: 05/14/19 06:41 Dose: 125 mg Documented by: Medical Necessity - Tobacco Use Smoking Status: Former smoker Tobacco Use: Non-smoker Assessment/Plan All Active Problems (Last Reviewed 03/20/19 @ 13:47 by Gabriel Zaidi DO) Failure to thrive (Acute) Acute kidney injury (Acute) Decubitus ulcer (Acute) Hyponatremia (Acute) Hypotension (Acute) Necrotizing soft tissue infection (Acute) Abscess of dorsum of left hand (Acute) Abscess of bursa, left hand (Acute) Abscess of thumb, left (Acute) Suppurative tenosynovitis of flexor tendon of left hand (Acute) Sepsis (Acute) Cellulitis (Acute) Dehydration (Acute) Hypokalemia (Acute) MSSA bacteremia (Acute) Knee effusion, right (Acute) Knee pain, right (Acute) Acute pancreatitis (Resolved) Gastroenteritis (Resolved) The patient is a 54 y/o M w/ PMHx: Hepatitis C w/ Chronically Elevated LFTs, Poorly controlled Diabetes mellitus type II, HTN, HLD, Chronic Pain Syndrome, Prior reported Pain regimen seeking behaviors, Former Tobacco use, History of prior Pancreatitis, History of Chronic Diarrhea of unclear etiology, History of Prior Clostridium difficile colitis, 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 (1) Acute on Chronic Diarrhea secondary to Acute Clostridium Difficile colitis w/ Hx prior infection: Stool cultures were obtained and C. difficile was positive with initiation of oral vancomycin, diarrhea lessening, likely acute component and current acute presentation given concurrent VU, hyponatremia, hypotension with failure to thrive. 05/14/19 CBC w/ WBC 7.7, Hgb 12.1, Plts 183 with resolved shift. Diarrhea near resolved, VU resolved, electrolyte disturbances resolved. PT, OT, CM consulted, planning SNF discharge, likely Wednesday as will need pre-certification. (2) Acute kidney injury: Secondary to GI losses and poor oral intake. Admission BUN/Cr 75/2.70, prior baseline creatinine noted to be 0.7. Hydrated, nephrotoxic medications held, initiating oral vancomycin as noted for acute C. difficile colitis, improving, 05/12/19 BUN/Cr 58/1.49-->05/14/19 BUN/Cr 23/1.27. IVF discontinued. (3) Hyponatremia, hypovolemic: Secondary to poor oral intake as well as GI losses, admission sodium 127, baseline from prior review 130-135 commonly, continue hydration, trending BMP, 05/12/19 Na 136-->05/14/19 Na 142. IVF discontinued. (4) Hypotension: Secondary to poor oral intake and GI losses with as noted concurrent VU, hyponatremia, improved w/ ED administration IVFs, to be cautious admitted to [place] with telemetry. Patient blood pressures proved, assured appropriate small sized arm cuff given habitus w/ stable low normal BP with discontinuation 05/12/19 telemetry. (5) Failure to thrive, adult with debility, weakness, frequent falls secondary to #1, #2, #3, #4L Patient chronically debilitated and weak, progressively worsening status given acute presentation as noted above, cachectic with severe malnutrition, will continue medical treatments as noted #1, #2, #3, #4 however necessitates PT, OT and case management consultations with plan detention facility placement however this will need to be performed on Wednesday. (6) Dysphagia, Acute on Chronic w/ Noted Thrush: Initiated and continued on nystatin swish and swallow, speech consulted with noted mild oral phase dysphagia secondary to an dentulous state and open sores in his mouth with recommendation for regular texture diet with thin liquids with small bites as well as small sips, encourage head of bed at 90 degrees, remain sitting upright for 30 minutes following oral intake. (7) History of Hepatitis C: Prior labs 02/02/17 with noted + hepatitis C Ab confirmation, patient has been very lax about following up and have noted several attempts through the records to encourage appropriate evaluation. (8) Poorly Controlled Diabetes mellitus type II w/ Episodes Hypoglycemia: Patient with long-standing history of poorly controlled diabetes, noted trending with hypoglycemic episodes, BS 70-150s, had prior discontinued scheduled short-acting with meals and decreased home long-acting x 1/2, but ongoing low dose BS, has completely discontinued long-acting with blood sugar trending 1 50-1 70 primarily. Once clinically more appropriate may consider re-addition of low-dose long-acting, and interim continue low dose ISS. Nutrition consulted given malnutrition for recommendations and education and teaching. (9) Chronic Pain Syndrome w/ Chronic Lumbar Back Pain w/ Stenosis, Radiculopathy: As noted recent falls, plain film of the spine in the ED unremarkable, patient on 05/14/19 complaining of cervical neck, paraspinous discomfort, reproduced with palpation with some strain, discussed at length transition off IV antibiotic therapy with no plan to restart but amenable to alterations of his oral narcotic regimen with increase of tramadol, increase of his gabapentin as well as a one-time dose low-dose Flexeril. Continue physical and occupational therapy. (10) Hypertension: We will continue home metoprolol and nifedipine regimen. BP improved and renal function improved, but low normal, defer currently addition back of ACEI. PRN Hydralazine. (11) Hyperlipidemia: Continue home statin regimen. (12) Tobacco Abuse: Encouraged continued cessation. (13) Severe Protein-Calorie Malnutrition: Evidenced per habitus, lower BMI, muscle and fat loss, nutrition consulted. (14) GERD: PPI. (15) DVT Prophylaxis: SCDs, lovenox. (16) CODE status: Full Code. Code Visit Inpatient E&M: 61715 Subs Hosp L2
[2019-05-14 06:50] LABS: Bedside Glucose 216 mg/dL (70-110)
[2019-05-14 07:32] VITALS: O2SAT 95
[2019-05-14 08:15] VITALS: BP 104/60; PULSE 62; RESP 18; TEMP 36.6; O2SAT 99
[2019-05-14] MEDS: NIFEdipine 30 MG Tablet PO (08:45)
[2019-05-14] MEDS: oxyCODONE 5 MG Tablet 10 MG PO ×2 (08:45→14:35)
[2019-05-14] MEDS: Sertraline 50 MG Tablet PO (08:45)
[2019-05-14] MEDS: Magnesium Oxide 400 MG Tablet PO (08:45)
[2019-05-14] MEDS: Pantoprazole Sodium 40 MG Tablet PO (08:45)
[2019-05-14] MEDS: traMADol 50 MG Tablet 100 MG PO ×3 (08:45→21:50)
[2019-05-14] MEDS: Gabapentin 100 MG Capsule 200 MG PO ×3 (08:47→18:10)
[2019-05-14] MEDS: Iron Polysaccharide Complex 150 MG CAPSULE PO (08:47)
[2019-05-14] MEDS: NYSTATIN 500,000 UNIT/5 ML UDC 500000 UNIT PO ×4 (08:47→21:56)
[2019-05-14] MEDS: cycloBENZAPRine HCl 5 MG TABLET PO (09:45)
[2019-05-14] MEDS: Heparin Injection (Vial) 5,000 UNIT/ML VIAL 5000 UNIT SC ×2 (09:45→21:55)
[2019-05-14] MEDS: Glucerna Shake 120 ML LIQUID PO ×3 (09:45→18:10)
[2019-05-14 09:50] VITALS: BP 104/60; PULSE 62
[2019-05-14] MEDS: 0.9% Normal Saline 1,000 ML 75 ML IV ×2 (09:50→22:04)
[2019-05-14 11:55] LABS: Bedside Glucose 175 mg/dL (70-110)
--- NOTE | 2019-05-14 12:07 | PN.SURG_ITS ---
Patient Problems: Active and Suspected Problems (Last Reviewed 03/20/19 @ 13:47 by Gabriel Zaidi DO) Failure to thrive (Acute) Acute kidney injury (Acute) Decubitus ulcer (Acute) Hyponatremia (Acute) Hypotension (Acute) Subjective: Patient is known to me. He was recently admitted for weakness and debility and was found to have Cdiff colitis. 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 He urgently went to surgery where he underwent surgical preparation left thumb and thenar eminence and dorsum hand over first webspace with incision and drainage and excisional debridement complex necrotizing diabetic abscesses (33 cm2) and incision and drainage tendon sheath left thumb for suppurative flexor tenosynovitis and incision and drainage necrotizing diabetic abscess dorsum left thumb involving extensor tendon with tenosynovitis and incision and drainage necrotizing diabetic abscess thenar eminence left palm extending through thenar muscles (abductor pollicis brevis, flexor pollicis brevis, opponens pollicis, and adductor pollicis) and first dorsal interosseous muscle and incision and drainage necrotizing diabetic abscess first dorsal webspace left hand extending through first dorsal interosseous muscle and thenar muscles (abductor pollicis brevis, flexor pollicis brevis, opponens pollicis, and adductor pollicis). He underwent daily complex wound care with Silver dressing changes. He also required repeat incision and drainage and irrigation procedures until his discharge to an ECF at the end of January. He was treated with Ceftriaxone for Staphylococcus aureus. He has been in and out of facilities since then and has been inconsistent with his OT, He complains of residual pain and stiffness in his left thumb. He is left hand dominant. Back in Feb, 2019, he had an x-ray done. It showed subluxation MP joint left thumb with narrowing of MP joint and IP joint probably related to the necrotizing diabetic abscesses. I was asked to evaluate this patient to help determine his long range surgical treatment plan. - Physical Exam General: Alert, Oriented x3 HEENT: PERRLA Oral: Moist Mucosa Neck: Supple Abdomen: Soft, Non-Distended Skin: Ulcer/ Wound - left hand wounds have healed from his severe necrotizing infection back in 02/10. Scars are on the dorsum left hand, radial and ulnar, dorsum left hand at first web space, dorsum left thumb, volar left thumb extending onto the thenar eminence, and the mid palm. Patient is left hand dominant. Thenar eminence is firm with scar tissue. Minimal active motion of his thumb. Some passive flexion noted at the IP and MP joints. There is an adductior contracture in the first web space. He can flex the rest of his fingers left hand at the MP joint and somewhat at the IP joints and not quite into the palm. Flexion and extension of his left wrist are intact and nontender. Radial pulses are palpable. No axillary adenopathy. Fingers are warm with good capillary refill. He cannot do thumb opposition secondary to the scarring from the infection. Neurological: Cranial nerves II-XII grossly intact Psych/Mental Status: Normal Affect, Appropriate Vital Signs Temp Pulse Resp BP Pulse Ox 97.8 F 62 18 104/60 99 05/14/19 08:15 05/14/19 09:50 05/14/19 08:15 05/14/19 09:50 05/14/19 08:15 Oxygen Delivery Method Room Air Weight: 109 lb 9.116 oz Body Mass Index (BMI) 14.2 Finger Stick Blood Glucose 364 Intake and Output for Last 24 Hours 05/12/19 05/13/19 05/14/19 23:59 23:59 23:59 Intake Total 5700 / 5700 3623 / 4290 1581 / 1581 Output Total 350 / 350 200 / 200 Balance 5350 / 5350 3623 / 4090 1381 / 1381 Microbiology Past 72 Hours 05/11/19 18:32 Urine Culture - Final Urine, Clean Catch Mixed Gram Positive Organisms 05/12/19 00:49 Enteric Bacteriology - Final Stool 05/12/19 00:49 C. difficile DNA Amplification - Final Stool Toxigenic C. difficile DNA Laboratory Tests Past 24 Hrs 05/14/19 05/14/19 05:33 05:33 WBC 7.7 RBC 3.82 L Hgb 12.1 L Hct 33.2 L MCV 86.9 MCH 31.7 MCHC 36.4 H RDW Std Deviation 39.6 RDW Coeff of Glen 12.4 Plt Count 183 MPV 10.3 Immature Gran % (Auto) 1.000 H Neut % (Auto) 69.4 Lymph % (Auto) 20.8 [place] % (Auto) 7.9 Eos % (Auto) 0.5 Baso % (Auto) 0.4 Absolute Neuts (auto) 5.4 Absolute Lymphs (auto) 1.61 Absolute Nucleated RBC 0.00 Nucleated RBC % 0 Sodium 142 Potassium 4.3 Chloride 114 H Carbon Dioxide 19.0 L Anion Gap 9 BUN 23 H Creatinine 1.27 Estim Creat Clear Calc 47.29 Est GFR (MDRD) Af Amer 76 Est GFR (MDRD) Non-Af 63 BUN/Creatinine Ratio 18.1 Glucose 212 H Calcium 8.1 L Total Bilirubin 0.20 AST 18 ALT 29 Alkaline Phosphatase 134 H Total Protein 6.5 Albumin 2.5 L Globulin 4.0 Albumin/Globulin Ratio 0.6 L POC Glucose 05/14/19 05/14/19 05/13/19 11:42 06:39 21:28 POC Glucose 175 H 216 H 139 H 05/13/19 17:14 POC Glucose 170 H Medical Necessity - Tobacco Use Smoking Status: Former smoker Tobacco Use: Non-smoker Assessment/Plan All Active Problems (Last Reviewed 03/20/19 @ 13:47 by Gabriel Zaidi DO) Failure to thrive (Acute) Acute kidney injury (Acute) Decubitus ulcer (Acute) Hyponatremia (Acute) Hypotension (Acute) Necrotizing soft tissue infection (Acute) Abscess of dorsum of left hand (Acute) Abscess of bursa, left hand (Acute) Abscess of thumb, left (Acute) Suppurative tenosynovitis of flexor tendon of left hand (Acute) Sepsis (Acute) Cellulitis (Acute) Dehydration (Acute) Hypokalemia (Acute) MSSA bacteremia (Acute) Knee effusion, right (Acute) Knee pain, right (Acute) Acute pancreatitis (Resolved) Gastroenteritis (Resolved) 1. Stiffness left thumb. 2. Adductor contracture first web space left hand. 3. Flexor tendon adhesions left thumb from suppurative flexor tenosynovitis. 4. History of necrotizing diabetic abscesses left hand involving left thumb and thenar eminence and first web space. 5. Diabetes mellitus. 6. Subluxation MP joint left thumb with narrowing of MP joint and IP joint secondary to the necrotizing diabetic abscesses. Patient will need to be more consistent with aggressive OT to try and salvage as much range of motion function as possible before attempts are made at complex hand reconstruction. After discharge, he is going to an ECF. Will help coordinate OT while there. Eventually he will need evaluation at a tertiary center for complex hand reconstruction. Stressed to the patient the importance of OT to maximize as much range of motion function as possible. Complex hand reconstruction will not be successful without reasonable range of motion function present. He voices understanding. In the future, can address the MP joint to see if ligament reconstruction is possible. The adductor contracture first web space would need release of the adductor muscle and deepening of the first web space with a skin flap. Flexor tenolysis would be necessary for the adhesions present from the suppurative flexor tenosynovitis. At the time of surgery, determination would be made to see if capsulectomies are needed as well. At that point, would determine the degree of improvement in the range of motion to see if tendon transfers are appropriate for further reconstruction such as to improve thumb opposition. He stated he would like to go to [facility] for the complex hand reconstruction evaluation at the appropriate time.
[2019-05-14 14:30] VITALS: BP 109/70; PULSE 69; RESP 16; TEMP 36.4; O2SAT 100
[2019-05-14 18:25] LABS: Bedside Glucose 249 mg/dL (70-110)
--- NOTE | 2019-05-14 19:27 | NURSING ---
Pt states he voiced concern this morning to Dr. Zafar that his pain was not controlled and needs an increase in his pain meds. Dr. Zafar adjusted meds and increased neurontin 200mg TID, flexeril x1, and ultram from 50mg to 100mg. Pt notified of same by this RN upon giving AM meds. Pt stated that while he appreciates the attempt to help- that these medications do not work and that he needs an increase in what works- like oxy or dilaudid. This RN notified pt that the doctor stated that she did not want to increase dose of narcotics. Also, notified pt that he didn't request any pain medications t/o night and slept well per report. Also notified that reported pain does not match non verbal score. Pt adamant that rn relief charge nena see pt. Then, Nena was asked that doctor shania be notified of request for 4mg dilaud[address] PO[address] Dr. Zafar notified of same and states that there will be not changes at this time. Patient asked to be notified of result. This RN entered room to notify pt-however, he was asleep with blankets over head. An hour later pt was sleeping and yelled out in his sleep. He states he thought that he was at home. Pt asked at that time if prn pain med would be adjusted- notified pt that it will not be at this time. Pt became upset and states that in the morning he will be notifying administration and firing any staff, including doctors that will not take care of his pain. Pt then states that he is tired and will be trying to go back to sleep at this time. This RN notified mariama Barrett RN. Pt sleeping when shift change occurred.
[2019-05-14 21:55] VITALS: BP 113/71; PULSE 76; RESP 16; TEMP 36.4; O2SAT 100
[2019-05-14] MEDS: Atorvastatin Calcium 40 MG Tablet PO (21:55)
[2019-05-14] MEDS: Metoprolol Tartrate 25 MG Tablet PO (21:55)
[2019-05-14 22:10] LABS: Bedside Glucose 130 mg/dL (70-110)
[2019-05-15] MEDS: oxyCODONE 5 MG Tablet 10 MG PO ×4 (00:15→12:25)
--- NOTE | 2019-05-15 02:00 | PCA ---
Patient was eating chicken in his room that was brought in by a family member, patient had finished eating but still had food left over and wanting this SCRIPT GIRL to put his leftover food in the fridge, I explained to the patient that because of his Cdiff diagnosis I would not take his food out of his room and put it into the fridge that is used for all the other patient on the floor. Patient was holding the chicken during our exchange but stated that because it was wrapped up in a napkin that he hadn't actually touched it. I tried to explain to the patient that a napkin is not a protective barrier but the patient talked over me and would not let me complete a sentence. Patient stated that he was tired of staff treating him like he has something very contagious wrong with him and I calmly told the patient that he did have something very contagious and I would not put the other patients on the floor at risk. Patient then threw the pieces of chicken across the room into the trash can and would no longer speak to this SCRIPT GIRL. I exited the room and reported the incident to WOOD Rubalcava and WOOD Garces
[2019-05-15 04:20] VITALS: BP 136/85; PULSE 70; RESP 16; TEMP 36.4; O2SAT 100
[2019-05-15 05:52] LABS: Absolute Lymphocyte Count 1.97 X10^3/uL (0.83-4.51); Absolute Neutrophil Count 5.8 X10^3/uL (2.0-7.7); Basophil# 0.04 X10^3/uL; Basophil% 0.5 % (0-1); Eosinophil# 0.05 X10^3/uL; Eosinophils% 0.6 % (0-5); Hematocrit 34.2 % (40-54); Hemoglobin 12.3 g/dL (13.0-16.5); Lymphocyte # 1.97 X10^3/ul (4.0); Lymphocyte % 22.5 % (19-41); Mean Corpuscular Hgb 31.5 pg (27.0-32.0); Mean Corpuscular Volume 87.5 fL (80-94); Mean Platelet Vol. 10.1 fl (6.2-12.0); Monocyte# 0.77 X10^3/uL; Monocyte% 8.8 % (0-10); NRBC Flagged by Analyzer 0 % (0-5); Neutrophil # 5.81 X10^3/uL (2.7-7.7); Neutrophil % 66.2 % (47-70); Platelet Count 183 K/mm3 (150-450); RBC Distribution Width CV 12.3 % (11.6-14.6); RBC Distribution Width SD 39.6 fl (35.1-43.9); Red Blood Count 3.91 M/mm3 (4.6-6.2); White Blood Count 8.8 K/mm3 (4.4-11.0)
[2019-05-15 06:22] LABS: ALB/GLOB Ratio 0.6 RATIO (0.9-2.4); AST(SGOT) 23 U/L (15-37); Alanine Aminotransfer ALT/SGPT 29 U/L (16-61); Albumin, Serum 2.4 g/dL (3.2-5.0); Alkaline Phosphatase 136 U/L (45-117); Anion Gap 8 (5-15); BUN 15 mg/dL (7-18); BUN/Creat Ratio 11.6 RATIO (10-20); Calcium,Total 8.1 mg/dL (8.5-10.1); Chloride 116 mmol/L (98-107); Creatinine, Serum 1.29 mg/dL (0.70-1.30); EST Glomerular Filtration Rate 62 mL/min (>60); Est Glom Filt Rate - Afr Amer 75 mL/min (>60); Estimated Creatinine Clearance 46.55 ml/min; Globulin 4.3 g/dL (2.2-4.2); Glucose 184 mg/dL (74-106); Potassium 4.4 mmol/L (3.5-5.1); Protein, Total 6.7 g/dL (6.4-8.2); Sodium Level 142 mmol/L (136-145)
[2019-05-15] MEDS: Insulin Lispro 100 UNIT/ML INSULN.PEN SC ×2 (07:00→11:24)
[2019-05-15 07:10] LABS: Bedside Glucose 166 mg/dL (70-110)
[2019-05-15 07:34] VITALS: O2SAT 95
[2019-05-15 08:49] VITALS: BP 144/92; PULSE 72; RESP 16; TEMP 36.3; O2SAT 98
[2019-05-15] MEDS: Gabapentin 100 MG Capsule 200 MG PO ×2 (08:57→11:17)
[2019-05-15 08:58] VITALS: PULSE 72
[2019-05-15] MEDS: Metoprolol Tartrate 25 MG Tablet PO (08:58)
[2019-05-15] MEDS: Magnesium Oxide 400 MG Tablet PO (08:58)
[2019-05-15] MEDS: Pantoprazole Sodium 40 MG Tablet PO (08:58)
[2019-05-15] MEDS: Glucerna Shake 120 ML LIQUID PO ×2 (08:59→11:18)
[2019-05-15] MEDS: Sertraline 50 MG Tablet PO (08:59)
[2019-05-15] MEDS: NIFEdipine 30 MG Tablet PO (08:59)
[2019-05-15] MEDS: Heparin Injection (Vial) 5,000 UNIT/ML VIAL 5000 UNIT SC (09:04)
[2019-05-15] MEDS: NYSTATIN 500,000 UNIT/5 ML UDC 500000 UNIT PO (09:05)
--- NOTE | 2019-05-15 09:38 | CASEMGMT ---
Social Work Note SW faxed updated clinicals to [facility] [place]. Per physician, pt is ready for discharge once pre-cert is obtained. Plan: [facility] [place] pending pre-cert Odessa Jeter MSW, REVENUE FIELD AUDITOR
--- NOTE | 2019-05-15 10:47 | TREXTCAR_ITS ---
- Diet 05/11/19 15:16 Diet: Regular Diet Food consistency:: Regular Liquid Consistency:: Regular/Thin Is pt able to select menu?: Yes - Wound(s) Sacrum Wound Type: Pressure Injury Bilateral Lower Extremities Wound Type: Scattered abrasion Left Shoulder Wound Type: Scratches Right big toe Wound Type: Toe nail fell off Right 5th toe Wound Type: Toe nail feel off Left Big toe Wound Type: Toe nail fell off - Suggestions for Active Care Change Position every (hours): 3 Hours to sit in a chair: 2 Times a day to sit in chair: 3 - Therapies Weight Bearing: Weight bearing as tolerated Physical Therapy: Eval and Treat Occupational Therapy: Eval and Treat - Allergies/Procedures Done in Hospital Allergies/Adverse Reactions: Allergies morphine Allergy (Verified 04/18/19 16:06) headaches pt states gets very bad headaches from morphine dicyclomine [From Bentyl] Adverse Reaction (Verified 05/11/19 12:09) Abd cramps/diarrhea fentanyl Adverse Reaction (Verified 04/18/19 16:06) Pt didn't like how it made him feel PT STATES HE DOES NOT LIKE HOW IT MAKES HIM FEEL. ketorolac [From Toradol] Adverse Reaction (Verified 04/18/19 16:06) real sluggish - Type of Care/Length of Stay Estimated LOS: Convalescent Care Less Than 30 days Type of Care Needed: Skilled Rehab Potential: Fair Prognosis: Fair - Additional Orders/Day of Discharge H&P will serve as current which was dated: 05/11/19 Day of Discharge: 05/15/19 - Dietary and Speech Recommendations Dietitian Recommendations/Changes: Rec CHO controlled diet- consistency per DIVISION DIRECTOR. Rec continue glucerna w/ med pass. Rec daily wts. Rec Jimi bid to help w/ skin healing. - Follow Up Care Primary Care Physician: Guido Miller MD [Primary Care Provider] - Please follow up with your Primary Care Physician in: 3-5 days. Please Follow Up With: Edmond Rankin MD When: 1 week.
[2019-05-15] MEDS: Iron Polysaccharide Complex 150 MG CAPSULE PO (11:17)
--- NOTE | 2019-05-15 11:53 | CASEMGMT ---
Social Work Note MATTHEW received call from Nena at [facility] stating pre-cert has been obtained and pt is able to discharge today. Physician updated. MATTHEW faxed completed discharge paperwork to [facility] including transfer to extended care facility, signed medication list and any scripts. Original in SNF folder and copy on pt's chart. [facility] completed in [facility]. Original in SNF folder and copy on pt's chart. MATTHEW spoke with RN who confirms pt is able to be transported via cot. MATTHEW called [facility] and earliest [facility] can transport is 4:00pm. SW placed a call to [facility] and Arranged transportation via cot for 12:30pm. RN updated. SW attempted to call pt's Sadia with number listed and it is wrong number. SW in to speak with pt to ask about number for pt's . Pt states that he was informed by the physician that even if approval was obtained he didn't have to discharge today. SW explained that physician put discharge in so physician feels pt is medically cleared for discharge. SW explained that insurance may not pay for pt to be at [facility] another night since physician put discharge in. Pt states he would like to speak with physician. SW explained that this worker can text physician to see if physician is able to speak with pt. SW updated pt on transportation time. SW asked pt about 's number. Per pt, pt's number is [phone]. SW texted physician that pt wishes to speak with him. Physician in to speak with pt. MATTHEW updated by physician that pt is agreeable to discharge today and would like to call his to bring in his clothes. SW informed physician that this worker can also call his . MATTHEW placed a call to pt's Sadia. SW updated Sadia that approval for SNF has been obtained and transportation is arranged for 12:30pm. Sadia states that she will try to get pt's clothes to [facility] before that. SW informed Sadia that if she is unable to make it to [facility] by the time pt transports then she can take clothes to [facility]. Sadia states understanding, states again she will try to get to [facility] before pt leaves to bring pt his clothes. RN updated who will update pt. MATTHEW placed a call to Nena at [facility] and updated her on transportation time. Plan: Pt to discharge to [facility] today skilled with [facility] transporting via cot at 12:30pm Odessa RANKIN, MEDICAL OFFICE COORDINATOR
[2019-05-15 12:20] LABS: Bedside Glucose 193 mg/dL (70-110)
--- NOTE | 2019-05-15 12:49 | NURSING ---
report called to [facility].
--- NOTE | 2019-05-15 13:58 | DS.PCM_ITS ---
Discharge Date and Diagnosis Date of Admission: 05/11/19 Date of Discharge: 05/15/19 - Primary Discharge Diagnosis #1 acute C. difficile colitis. #2 acute kidney injury. #3 hypovolemic hyponatremia. #4 hypotension. #5 failure to thrive, severe protein calorie malnutrition. 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 Electronically Signed: Nicolás Vinson, at 10:19 EDT , Service support , Lumbar Spine X-Ray 05/11/19 09:09 IMPRESSION: Degenerative changes of the spine, as detailed above. Straightening of the normal lumbar lordosis. Electronically Signed: Nicolás Vinson, at 10:19 EDT , Service support , Operations: None Procedures: None Summary of Care Provided: Patient seen and examined on the day of discharge and appeared to be stable to be [facility]. Diarrhea is improving and stool became more formed. Denied abdominal pain, fever or chills. Blood pressure improved and started to go up. Other vital signs are stable. The patient is a 54 year old M presented to the emergency room because of weak ness, diarrhea and debility, found to have acute C. difficile colitis which was complicated by acute kidney injury and electrolyte abnormalities. Stool for significant back positive for toxigenic C. difficile DNA. Patient has a history of C. difficile infection in the past. He was treated with oral vancomycin. With treatment, symptoms improved and his diarrhea improved as well. He was found to have acute kidney injury which was attributed to volume loss and dehydration secondary to diarrhea as well as medication side effects. On admission, creatinine was one 2.7 and with IV fluid therapy, it came down to 1.29 mg/dL upon discharge which was normal. He was found to have sodium of 127 which was due to hypovolemic hyponatremia, was treated with IV fluids with normal saline and his sodium went back to normal and discharge sodium was 142. On admission, patient was hypotensive which also attributed to dehydration poor oral intake. His antihypertensive medications held and he was treated with IV fluids. His blood pressure improved and on the day of discharge, his blood pressure was in the 140s systolic. Upon discharge, he was started back on small dose of lisinopril and remained on metoprolol. Patient had a history of chronic pain syndrome with chronic lumbar back pain with stenosis and radiculopathy. He was treated with increased dose of tramadol, started on gabapentin and also was treated with as needed OxyIR. Patient's condition continued to improve as well as his blood pressure. His kidney function returned back to normal. Patient [facility] to [facility] in a stable medical condition, discharged on oral vancomycin to complete 14 days of treatment, he received already 4 days of oral vancomycin, discharged on gabapentin and tramadol for pain, started on OxyIR as needed for pain, continued on his previous home medications without any changes, started back on lisinopril as his blood pressure started to go up, recommended follow-up with PCP in 3 to 5 days, follow-up with Dr. Rankin in 1 week. - Physical Exam General: Alert, Oriented x3, Cooperative, No apparent distress HEENT: Atraumatic, PERRLA, EOMI, Normocephalic Oral: Moist Mucosa, No Gingival or Mucosal Lesions/ Ulcerations Neck: Supple, No JVD, Negative Carotid Bruits, Trachea Midline, Thyroid Normal Size and Texture Lungs: Clear to auscultation, No rhonchi, No wheeze, No rales, Diminished Cardiovascular: Regular rate, Regular Rhythm, Normal S1, Normal S2, PMI Normal Abdomen: Bowel Sounds Present, Soft, Non Tender, Non-Distended, No Hepato- splenomegaly Extremities: No clubbing, No cyanosis, No edema Skin: No rashes, No breakdown Lymphatic: No Cervical, Supraclavicular, or Inguinal Adenopathy Neurological: Cranial nerves II-XII grossly intact, Neuro grossly intact Psych/Mental Status: Normal Affect, Appropriate Vital Signs Temp Pulse Resp BP Pulse Ox 97.4 F L 72 16 144/92 H 98 05/15/19 08:49 05/15/19 08:58 05/15/19 08:49 05/15/19 08:49 05/15/19 08:49 Oxygen Delivery Method Room Air Weight: 109 lb 9.116 oz Body Mass Index (BMI) 14.2 Finger Stick Blood Glucose 364 Intake and Output for Last 24 Hours 05/13/19 05/14/19 05/15/19 23:59 23:59 23:59 Intake Total 3623 / 4290 2677 / 3428 1546 / 1546 Output Total 200 / 200 Balance 3623 / 4090 2477 / 3228 1546 / 1546 Microbiology Past 72 Hours 05/11/19 18:32 Urine Culture - Final Urine, Clean Catch Mixed Gram Positive Organisms 05/12/19 00:49 Enteric Bacteriology - Final Stool Laboratory Tests Past 24 Hrs 05/15/19 05/15/19 05:22 05:22 WBC 8.8 RBC 3.91 L Hgb 12.3 L Hct 34.2 L MCV 87.5 MCH 31.5 MCHC 36.0 RDW Std Deviation 39.6 RDW Coeff of Glen 12.3 Plt Count 183 MPV 10.1 Immature Gran % (Auto) 1.400 H Neut % (Auto) 66.2 Lymph % (Auto) 22.5 Whitley % (Auto) 8.8 Eos % (Auto) 0.6 Baso % (Auto) 0.5 Absolute Neuts (auto) 5.8 Absolute Lymphs (auto) 1.97 Absolute Nucleated RBC 0.00 Nucleated RBC % 0 Sodium 142 Potassium 4.4 Chloride 116 H Carbon Dioxide 18.0 L Anion Gap 8 BUN 15 Creatinine 1.29 Estim Creat Clear Calc 46.55 Est GFR (MDRD) Af Amer 75 Est GFR (MDRD) Non-Af 62 BUN/Creatinine Ratio 11.6 Glucose 184 H Calcium 8.1 L Total Bilirubin 0.20 AST 23 ALT 29 Alkaline Phosphatase 136 H Total Protein 6.7 Albumin 2.4 L Globulin 4.3 H Albumin/Globulin Ratio 0.6 L POC Glucose 05/15/19 05/15/19 05/14/19 11:22 06:59 22:03 POC Glucose 193 H 166 H 130 H 05/14/19 18:13 POC Glucose 249 H Home Medications: Medications to take at Discharge Atorvastatin Calcium 40 mg PO QHS 11/14/18 Insulin Lispro [Humalog KwikPen] See Protocol SUBCUT TIDAC insuln.pen 02/15/19 Iron Polysaccharide Complex [Ferrex 150] 150 mg PO DAILYCM #30 cap 02/15/19 Magnesium Oxide [Mag-Ox 400] 400 mg PO DAILYCM #30 tab 02/15/19 Metoprolol Tartrate [Lopressor (beta jass)] 25 mg PO BID #60 tab 02/15/19 Pantoprazole Sodium [Protonix] 40 mg PO DAILY #30 tab 02/15/19 Sertraline HCl [Zoloft] 50 mg PO DAILY #30 tab 02/15/19 Gauze Bandage [Gauze Pads] 3 ea TP .QDAILY #90 bandage 02/16/19 Lactobacillus rhamnosus GG 10 billion cell capsule 1 cap PO DAILY #90 cap 04/18/19 diaper,brief,adult,disposable See Rx Instructions .ROUTE .MEDSUPPLY #76 ea 04/18/19 lancets 28 gauge See Rx Instructions .ROUTE .MEDSUPPLY #200 ea 04/18/19 nutritional therapy glucose intolerance,lactose-free,soy oral liquid 1 ea PO .achs #1 unit 04/18/19 Cholestyramine/Aspartame [Cholestyramine Light Packet] 4 gm PO Q24H PRN 05/11/19 Insulin Glargine,Hum.rec.anlog [Basaglar Kwikpen U-100] 18 unit SUBCUT DAILY 05/11/19 Insulin Lispro [Humalog KwikPen] 10 unit SQ TIDCM 05/11/19 Insulin Lispro [Humalog KwikPen] See Protocol SQ TIDCM 05/11/19 Lisinopril 5 mg PO DAILY 05/11/19 Mupirocin [Bactroban] 1 applic TOPICAL DAILY 05/11/19 Nifedipine [Nifedipine ER] 30 mg PO DAILY 05/11/19 Gabapentin [Neurontin] 200 mg PO TIDCM #60 cap 05/15/19 Oxycodone [Oxyir] 10 mg PO Q4H PRN PRN 3 Days #30 tab 05/15/19 Vancomcyin 125mg/5mL PO Liquid 125 mg PO Q6 10 Days po.syringe 05/15/19 traMADol [Ultram] 100 mg PO TID #30 tab 05/15/19 Following Prescrptions Were Given to Patient: Gabapentin [Neurontin] 200 mg PO TIDCM #60 cap Prescription Printed Oxycodone [Oxyir] 10 mg PO Q4H PRN PRN 3 Days #30 tab PRN Reason: Severe Pain (-08/03) Prescription Printed traMADol [Ultram] 100 mg PO TID #30 tab Prescription Printed Vancomcyin 125mg/5mL PO Liquid 125 mg PO Q6 10 Days po.syringe Prescription Printed Primary Care Physician: Guido Miller MD [Primary Care Provider] - Please follow up with your Primary Care Physician in: 3-5 days. Please Follow Up With: Edmond Rankin MD When: 1 week. [facility] Minutes spent on discharge:: 32 Patient Condition:: Stable Medical Necessity - Tobacco Use Smoking Status: Former smoker Tobacco Use: Non-smoker Meaningful Use Info Meaningful Use Diagnoses (Choose all that apply): None applicable Code Visit Inpatient E&M: 45675 Disch Hosp
== END 2019-05-15 12:37 | disposition skilled nursing facility (03) | DRG 248 ==
LOC: ED 10:06 → MS3 10:34
PROVIDERS: Admitting Provider Family Medicine; Emergency Provider Emergency Medicine; Family Provider Internal Medicine; PCP Internal Medicine; Visit Provider Hospitalist
DX: A04.72 Enterocolitis due to Clostridium difficile, not specified as recurrent (principal); R62.7 Adult failure to thrive; N17.9 Acute kidney failure, unspecified; R29.6 Repeated falls; Z68.1 Body mass index [BMI] 19.9 or less, adult; E87.1 Hypo-osmolality and hyponatremia; I95.9 Hypotension, unspecified; B37.0 Candidal stomatitis; E78.5 Hyperlipidemia, unspecified; E43 Unspecified severe protein-calorie malnutrition; E86.1 Hypovolemia; B19.20 Unspecified viral hepatitis C without hepatic coma; R13.11 Dysphagia, oral phase; D64.9 Anemia, unspecified; I10 Essential (primary) hypertension; G89.4 Chronic pain syndrome; M48.061 Spinal stenosis, lumbar region without neurogenic claudication; L89.152 Pressure ulcer of sacral region, stage 2; K21.9 Gastro-esophageal reflux disease without esophagitis; E11.649 Type 2 diabetes mellitus with hypoglycemia without coma; E11.65 Type 2 diabetes mellitus with hyperglycemia; M24.542 Contracture, left hand; M24.342 Pathological dislocation of left hand, not elsewhere classified; Z87.891 Personal history of nicotine dependence; Z79.4 Long term (current) use of insulin
CPT/HCPCS: 36415; 71045; 72100; 80053; 81001; 82962; 83735; 84100; 84439; 84443; 84484; 85025; 87086; 87088; 87493; 87506; 92526; 92610; 93005; 97110; 97162; 97165; 97530; 97535; 97802; 99285; J7030; J7120; A4216

== ENCOUNTER → 2019-07-18 | Outpatient (CLI) | payer MEDICAID, SELFPAY ==
[2019-07-18 12:42] VITALS: BMI 14.2
--- NOTE | 2019-07-18 12:57 | RAD_ITS ---
STUDY: X-RAY - LUMBAR SPINE REASON FOR EXAM: Male, 54 years old. Low back pain TECHNIQUE: 4 view(s) of the lumbar spine were obtained. COMPARISON: 05/11/2019 FINDINGS: Normal lumbar lordosis. There is no substantial scoliosis. There is a normal alignment of the vertebrae. Normal vertebral bodies and endplates. Normal disc space heights except for significant degenerative narrowing at L5/S1. There is no demonstrated fracture. Bowel gas pattern shows multiple air fluid levels and a stairstepping pattern suggesting ileus. There is a possible stone in the right kidney. RAD/L/S Spine Min 4 Views IMPRESSION: Degenerative changes at L5/S1, otherwise unremarkable lumbar spine Possible right nephrolithiasis Small bowel ileus Electronically Signed: Craig Avila MD at 13:57 EDT , Service support ,
== END | disposition home or self-care (01) ==
LOC: HPRAD 12:54
PROVIDERS: Family Provider Internal Medicine; PCP Internal Medicine; Referring Provider Orthopaedic Surgery; Visit Provider Orthopaedic Surgery
DX: M54.5 Low back pain (principal)
CPT/HCPCS: 72110

== ENCOUNTER 2019-10-17 21:07 | Observation (INO) | payer MEDICAID, SELFPAY ==
[2019-07-18 12:42] VITALS: BMI 14.2
[2019-10-17 21:08] VITALS: BP 120/80; PULSE 89; RESP 13; TEMP 36.6; O2SAT 100; BMI 15.0
--- NOTE | 2019-10-17 21:13 | CT_ITS ---
STUDY: CT BRAIN WITHOUT CONTRAST REASON FOR EXAM: Male, 54 years old. FALLS, WEIGHT LOSS RADIATION DOSAGE (If Supplied By Facility): CTDIvol = ( 44.99 ) mGy, DLP = ( 812.98 ) mGycm TECHNIQUE: Transaxial CT imaging of the brain was performed without administration of intravenous contrast material. Individualized dose optimization techniques were used for this CT. COMPARISON: No relevant priors. FINDINGS: Normal soft tissue structures. Normal calvarium. Normal size ventricles and extra-axial spaces for the patient''s age. Normal white matter tracts of the cerebral hemispheres. Normal basal ganglia and thalami. Normal brainstem. Normal cerebellum. There is no intracranial hemorrhage. There are no findings of an acute ischemic infarction. Normal visualized paranasal sinuses. CT/Brain/Head without Contrast IMPRESSION: Normal unenhanced CT scan of the brain. Electronically Signed: David Wright MD at 22:45 EST , Service support ,
--- NOTE | 2019-10-17 21:20 | ED.VIS.GEN ---
History of Present Illness Chief Complaint: General Illness Informant: Patient Onset: Weeks Context: Gradual Onset Timing: Continuous Current Severity: Moderate Maximum Severity: Moderate Narrative: The patient is a 54-year-old male with medical history significant for chronic pain, prior alcohol abuse, [id number] diabetes, and hypertension who presents to the emergency department with multiple complaints. The patient states that for the past few months, he had difficulty eating. He states that he feels like he cannot swallow. He has been able to drink. He states he feels like he is getting dehydrated. He has had over 20 pound weight loss. He is complaining of diffuse pain throughout his body. Has not felt that he had fevers. He also has a boil on his scrotum that is been draining. Prior similar symptoms: Yes Recent Illness/Hospitalization: No Past Medical History - Allergies and Home Meds Allergies/Adverse Reactions: Allergies morphine Allergy (Verified 10/17/19 21:08) headaches pt states gets very bad headaches from morphine dicyclomine [From Bentyl] Adverse Reaction (Verified 10/17/19 21:08) Abd cramps/diarrhea fentanyl Adverse Reaction (Verified 10/17/19 21:08) Pt didn't like how it made him feel PT STATES HE DOES NOT LIKE HOW IT MAKES HIM FEEL. ketorolac [From Toradol] Adverse Reaction (Verified 10/17/19 21:08) real sluggish Primary Care Physician: Guido Miller MD [Primary Care Provider] - Prior records reviewed: Yes Past Medical History: - - Diabetes, hypertension, chronic pain Surgical History: appendectomy, cholecystectomy, - Smoking Status: Never smoker - Family History Maternal Family History: Family History (Last Reviewed 03/20/19 @ 13:47 by Gabriel Zaidi DO) Father Diabetes Mother Diabetes Family History: Reports: Diabetes Paternal Family History: Family History (Last Reviewed 03/20/19 @ 13:47 by Gabriel Zaidi DO) Father Diabetes Mother Diabetes Family History: Reports: Heart Disease - CAD s/p CABG history. Patient notes that his paternal grandmother had diabetes. Review of Systems General: Reports: Malaise, Weight loss. Denies: Chills, Fever, Sweats Eyes: Denies: Visual changes - bilaterally, Diplopia ENT: Denies: Rhinorrhea, Sore throat Cardiovascular: Reports: Chest pain. Denies: Palpitations Respiratory: Reports: Dyspnea. Denies: Cough, Dyspnea on exertion Gastrointestinal: Reports: Nausea. Denies: Abdominal pain, Vomiting, Diarrhea, Melena, Hematochezia Genitourinary: Denies: Dysuria, Hematuria, Frequency Musculoskeletal: Reports: Myalgias, Arthralgias, Back pain. Denies: Extremity Pain Skin: Reports: Abscess. Denies: Rash, Wounds Neurological: Denies: Headache, Weakness, Numbness Psych: Reports: Depression Physical Exam Vital Signs/Narrative: Vital Signs Temp Pulse Resp BP Pulse Ox 10/17/19 21:08 97.8 F 89 13 120/80 100 Inital Vital Signs reviewed: Yes General: Cachectic, No Acute Distress Head: Normocephalic, Atraumatic Eyes: Perrl, EOMI ENT: No rhinorrhea, Dry mucous membranes Neck: Supple, Nontender, No lymphadenopathy Cardiovascular: Regular rate, Regular rhythm, No murmurs Respiratory: No distress, CTA bilaterally, Chest nontender Abdomen: Soft, Nontender, Nondistended, Normal bowel sounds : - - Spontaneously draining abscess on the left hemiscrotum Back: Nontender Skin: Normal color, No rash Neurological: Alert, Oriented x3 Diagnostic/Tx/Re-eval Clinical Impression(s) from Imaging Studies Brain CT 10/17/19 21:13 IMPRESSION: Normal unenhanced CT scan of the brain. Electronically Signed: David Wright MD at 22:45 EST , Service support , Chest X-Ray 10/17/19 21:25 IMPRESSION: There is NO acute cardiopulmonary abnormality. Electronically Signed: David Wright MD at 21:42 EST , Service support , Abdomen/Pelvis CT 10/17/19 21:51 IMPRESSION: There has been a cholecystectomy. The bile ducts are slightly dilated. There is NO evidence of choledocholithiasis. There is NO bowel obstruction or bowel wall thickening. The appendix is not identified. There is NO ascites or free air, peritoneal abscess or adenopathy. There is a 3 cm subcutaneous abscess in the inferior aspect of the RIGHT hemiscrotum. There is NO subcutaneous emphysema. Electronically Signed: David Wright MD at 22:50 EST , Service support , Chest CT 10/17/19 21:51 IMPRESSION: There is NO acute cardiopulmonary abnormality. Electronically Signed: David Wright MD at 22:55 EST , Service support , Abnormal Lab Results 10/17/19 10/17/19 10/17/19 21:23 21:23 21:23 WBC 21.9 H RBC 3.91 L Hgb 12.3 L Hct 36.1 L MCV 92.3 MCH 31.5 MCHC 34.1 RDW Std Deviation 43.0 RDW Coeff of Glen 12.8 Plt Count 326 MPV 8.8 Immature Gran % (Auto) 1.000 H Neut % (Auto) 80.1 H Lymph % (Auto) 10.4 L Ceiba % (Auto) 7.5 Eos % (Auto) 0.5 Baso % (Auto) 0.5 Absolute Neuts (auto) 17.5 H Absolute Lymphs (auto) 2.27 Nucleated RBC % 0 Differential Comment SCANNED Diff Path Review May foll Platelet Estimate ADEQUATE RBC Morphology NORM C+C PT 14.7 INR 1.2 APTT 30.3 Sodium 134 L Potassium 5.4 H Chloride 109 H Carbon Dioxide 19.0 L Anion Gap 6 BUN 58 H Creatinine 1.88 H Estim Creat Clear Calc 33.81 Est GFR (MDRD) Af Amer 48 L Est GFR (MDRD) Non-Af 40 L BUN/Creatinine Ratio 30.9 H Glucose 165 H Lactic Acid Calcium 8.9 Total Bilirubin 0.40 AST 25 ALT 46 Alkaline Phosphatase 138 H Total Protein 8.3 H Albumin 3.1 L Globulin 5.2 H Albumin/Globulin Ratio 0.6 L Lipase 144 10/17/19 21:23 WBC RBC Hgb Hct MCV MCH MCHC RDW Std Deviation RDW Coeff of Glen Plt Count MPV Immature Gran % (Auto) Neut % (Auto) Lymph % (Auto) Ceiba % (Auto) Eos % (Auto) Baso % (Auto) Absolute Neuts (auto) Absolute Lymphs (auto) Nucleated RBC % Differential Comment Diff Path Review Platelet Estimate RBC Morphology PT INR APTT Sodium Potassium Chloride Carbon Dioxide Anion Gap BUN Creatinine Estim Creat Clear Calc Est GFR (MDRD) Af Amer Est GFR (MDRD) Non-Af BUN/Creatinine Ratio Glucose Lactic Acid 1.0 Calcium Total Bilirubin AST ALT Alkaline Phosphatase Total Protein Albumin Globulin Albumin/Globulin Ratio Lipase - Medical Decision Making The patient does have a scrotal abscess with some surrounding cellulitis. There is no crepitus. He is also emaciated and having generalized weakness and recurrent falls. Broad metabolic work-up was pursued. He does have evidence of acute kidney injury. He has significant leukocytosis. His lactic acid however was normal. Patient underwent multiple images which demonstrate scrotal cellulitis with abscess, but no evidence of gas or deep space infection. Bedside incision and drainage was performed. 3 cc of lidocaine with epinephrine was injected locally. 2 separate incisions were made and purulence was able to be expressed. Culture was obtained. Given the patient's leukocytosis, history of bacteremia, and area of cellulitis I do feel that he will require admission. The patient was discussed with the hospitalist. Impression 1. Sepsis 2. Scrotal abscess with cellulitis 3. Incision and drainage ED Disposition - Plan for ED Patient: Referrals: Guido Miller MD [Primary Care Provider] -
--- NOTE | 2019-10-17 21:25 | RAD_ITS ---
STUDY: X-RAY CHEST REASON FOR EXAM: Male, 54 years old. General illness, failure to thrive, patient not eating TECHNIQUE: Frontal view COMPARISON: None. FINDINGS: Lungs are expanded. There is mild COPD. There are NO acute infiltrates. There is NO pleural effusion or pneumothorax. Normal size heart. Normal mediastinum and manuel. Normal visualized pulmonary arteries. Normal visualized aortic arch and descending thoracic aorta. Normal visualized thoracic spine. Normal visualized ribs, clavicles, and shoulders. There is no demonstrated abnormality of the visualized soft tissue structures of the upper abdomen. RAD/Chest 1 View (Portable) IMPRESSION: There is NO acute cardiopulmonary abnormality. Electronically Signed: David Wright MD at 21:42 EST , Service support ,
[2019-10-17] MEDS: 0.9% Normal Saline 1,000 ML 1000 ML IV (21:28)
[2019-10-17] MEDS: Ondansetron 4 MG/2 ML Vial IV (21:29)
[2019-10-17] MEDS: HYDROmorphone 1 MG/ML Syringe IV (21:29)
[2019-10-17 21:31] LABS: Absolute Lymphocyte Count 2.27 X10^3/uL (0.83-4.51); Absolute Neutrophil Count 17.5 X10^3/uL (2.0-7.7); Basophil# 0.12 X10^3/uL; Basophil% 0.5 % (0-1); Eosinophil# 0.12 X10^3/uL; Eosinophils% 0.5 % (0-5); Hematocrit 36.1 % (40-54); Hemoglobin 12.3 g/dL (13.0-16.5); Lymphocyte # 2.27 X10^3/ul (4.0); Lymphocyte % 10.4 % (19-41); Mean Corp Hgb Conc 34.1 g/dL (32-36); Mean Corpuscular Hgb 31.5 pg (27.0-32.0); Mean Corpuscular Volume 92.3 fL (80-94); Mean Platelet Vol. 8.8 fl (6.2-12.0); Monocyte# 1.64 X10^3/uL; Monocyte% 7.5 % (0-10); NRBC Flagged by Analyzer 0 % (0-5); Neutrophil # 17.49 X10^3/uL (2.7-7.7); Neutrophil % 80.1 % (47-70); POSITIVE DIFFERENTIAL YES; Platelet Count 326 K/mm3 (150-450); RBC Distribution Width CV 12.8 % (11.6-14.6); Red Blood Count 3.91 M/mm3 (4.6-6.2); White Blood Count 21.9 K/mm3 (4.4-11.0)
[2019-10-17 21:35] LABS: Differential Indicated SCAN CRITERIA MET
[2019-10-17 21:40] LABS: International Normalized Ratio 1.2; Prothrombin Time (Protime)PT. 14.7 SECONDS (11.7-14.9)
[2019-10-17 21:41] LABS: Partial Thromboplast Time 30.3 Seconds (24.1-36.2)
[2019-10-17 21:49] LABS: ALB/GLOB Ratio 0.6 RATIO (0.9-2.4); AST(SGOT) 25 U/L (15-37); Alanine Aminotransfer ALT/SGPT 46 U/L (16-61); Albumin, Serum 3.1 g/dL (3.2-5.0); Alkaline Phosphatase 138 U/L (45-117); Anion Gap 6 (5-15); BUN 58 mg/dL (7-18); BUN/Creat Ratio 30.9 RATIO (10-20); Calcium,Total 8.9 mg/dL (8.5-10.1); Chloride 109 mmol/L (98-107); Creatinine, Serum 1.88 mg/dL (0.70-1.30); EST Glomerular Filtration Rate 40 mL/min (>60); Est Glom Filt Rate - Afr Amer 48 mL/min (>60); Estimated Creatinine Clearance 33.81 ml/min; Globulin 5.2 g/dL (2.2-4.2); Glucose 165 mg/dL (74-106); Lipase 144 U/L (73-393); Potassium 5.4 mmol/L (3.5-5.1); Protein, Total 8.3 g/dL (6.4-8.2); Sodium Level 134 mmol/L (136-145)
--- NOTE | 2019-10-17 21:51 | CT_ITS ---
STUDY: CT CHEST WITH CONTRAST REASON FOR EXAM: Male, 54 years old. FALLS, WEIGHT LOSS, TESTICULAR ABSCESS CONCERN FOR JESSA''S RADIATION DOSAGE (If Supplied By Facility): CTDIvol = ( 15.83 ) mGy, DLP = ( 490.43 ) mGycm TECHNIQUE: Transaxial imaging was performed following intravenous administration of IV 75mL Isovue-370. Individualized dose optimization techniques were used for this CT. COMPARISON: None. FINDINGS: The lungs are normal. There is no demonstrated pleural abnormality. Normal heart and pericardium. Normal mediastinum. Normal hilar regions. Normal enhanced pulmonary arteries. Normal aorta arch and descending thoracic aorta. Normal osseous structures. There is concentric thickening of the esophagus suggesting esophagitis. There is NO obstruction or mass. CT/Chest WITH Contrast IMPRESSION: There is NO acute cardiopulmonary abnormality. Electronically Signed: David Wright MD at 22:55 EST , Service support ,
--- NOTE | 2019-10-17 21:51 | CT_ITS ---
STUDY: CT ABDOMEN AND PELVIS WITHOUT CONTRAST REASON FOR EXAM: Male, 54 years old. FALLS, WEIGHT LOSS, TESTICULAR ABSCESS CONCERN FOR JESSA''S RADIATION DOSAGE (If Supplied By Facility): CTDIvol = ( 15.83 ) mGy, DLP = ( 490.43 ) mGycm TECHNIQUE: Transaxial images were obtained from the dome of the diaphragm to the symphysis pubis without oral contrast, and without intravenous contrast. Sagittal and coronal images were reconstructed. Individualized dose optimization techniques were used for this CT. COMPARISON: None. FINDINGS: The visualized lung bases are unremarkable. The visualized portions of the heart are within normal limits. Normal liver. There has been a cholecystectomy. The bile ducts are slightly dilated. There is NO evidence of choledocholithiasis. Normal spleen. Normal pancreas. Normal bilateral adrenal glands. Normal right kidney. Normal left kidney. Normal visualized stomach. Normal small intestine. Normal colon. There is NO bowel obstruction or bowel wall thickening. The appendix is not identified. Normal abdominal aorta. Normal inferior vena cava. Normal retroperitoneum. Normal urinary bladder. There is NO ascites or free air, peritoneal abscess or adenopathy. Normal abdominal wall. Normal osseous structures. There is a 3 cm subcutaneous abscess in the inferior aspect of the RIGHT hemiscrotum. There is NO subcutaneous emphysema. CT/Abdomen/Pelvis W IV Cont ONLY IMPRESSION: There has been a cholecystectomy. The bile ducts are slightly dilated. There is NO evidence of choledocholithiasis. There is NO bowel obstruction or bowel wall thickening. The appendix is not identified. There is NO ascites or free air, peritoneal abscess or adenopathy. There is a 3 cm subcutaneous abscess in the inferior aspect of the RIGHT hemiscrotum. There is NO subcutaneous emphysema. Electronically Signed: David Wright MD at 22:50 EST , Service support ,
[2019-10-17 22:55] LABS: Differential Comment SCANNED; Platelet Estimate ADEQUATE (ADEQ); Red Cell Morphology NORM C+C NORMAL (NORM C&C)
--- NOTE | 2019-10-17 23:16 | HP.PCM_ITS ---
Problem List (1) Scrotal abscess Status: Acute (2) Acute kidney injury Status: Acute (3) HLD (hyperlipidemia) Status: Chronic Qualifiers: Hyperlipidemia type: unspecified Qualified Code(s): E78.5 - Hyperlipidemia, unspecified (4) Hepatitis C antibody positive in blood Status: Chronic (5) Malnutrition Status: Chronic Qualifiers: Malnutrition type: protein-calorie malnutrition (6) Type 2 diabetes mellitus Status: Chronic Qualifiers: Diabetes mellitus long term care phlebotomist insulin use: with group home use Diabetes mellitus complication status: with other specified complication Qualified Code(s): E11.69 - Type 2 diabetes mellitus with other specified complication; Z79.4 - intermediate manager (current) use of insulin (7) Chronic back pain Status: Chronic Qualifiers: Back pain location: back pain in unspecified location Back pain laterality: unspecified Qualified Code(s): M54.9 - Dorsalgia, unspecified; G89.29 - Other chronic pain (8) Hypertension Status: Chronic Qualifiers: Hypertension type: essential hypertension Qualified Code(s): I10 - Essential (primary) hypertension History of Present Illness Date of Admission: 10/17/19 Chief Complaint: Weakness, general illness. The patient is a 54 year old M patient with past medical history as mentioned above presented to the emergency room because of multiple complaints. His main complaint was weakness and difficulty swallowing which has been going on for several months and he has been seen by speech therapy during his previous admissions. He mentioned that 3 days ago, he noticed a lump on his scrotum which looked like a boil which has been increasing in size. He denies any scrotal pain, drainage, denies fever chills. He mentioned that he has been very dehydrated and he lost more than 20 pounds in the last several weeks. He has history of uncontrolled type 2 diabetes mellitus, has been on insulin and his hemoglobin A1c was 10.7% on January,. Patient claimed that his blood sugar has been under control which is obviously not the case. History of hypertension and according to the patient, he was taken off lisinopril because his blood pressure has been low. He has history of chronic back pain/chronic lumbar canal stenosis with radiculopathy and he has been having frequent falls and currently, he is not taking any pain medications. He has history of dysphagia with oral thrush and he was evaluated by speech therapy during his previous admissions but he is still complaining of difficulty swallowing at home. In the emergency department, his vital signs are stable, afebrile. His routine blood work was remarkable for significant leukocytosis with neutrophilia, potassium of 5.4, BUN of 58, creatinine is 1.88. LFT was unremarkable. Lipase was normal. Lactic acid was normal. CT scan brain showed no acute findings. Chest x-ray showed no acute infiltrate or consolidation. CT scan abdomen and pelvis with IV contrast revealed 3 cm subcutaneous abscess of the right hemiscrotum. Bedside incision and drainage done by ER physician. CT scan chest with contrast showed no acute abnormalities. Patient is being admitted for scrotal abscess, acute kidney injury with mild hyperkalemia, severe protein calorie malnutrition. 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 ketorolac [From Toradol] Adverse Reaction (Verified 10/17/19 21:08) real sluggish Home Medications: Ambulatory Orders Medication Instructions Recorded Insulin Glargine [Lantus (BKC)] 16 units SUBCUT DAILY 10/17/19 Insulin Lispro [Humalog KwikPen] 12 units SQ TID 10/17/19 Surgical History: Surgical History (Last Reviewed 03/20/19 @ 13:47 by Gabriel Zaidi DO) History of appendectomy Z90.49 S/P laparoscopic cholecystectomy Z90.49 Surgical History: appendectomy, cholecystectomy, - Psychiatric History: No pertinent psych hx Lives: Spouse/ Significant Other Smoking Status: Never smoker Alcohol: None Drugs: None - *Family History Maternal Family History: Family History (Last Reviewed 10/17/19 @ 23:40 by Delmi Angeles MD) Father Diabetes Mother Diabetes History Items: Diabetes Paternal Family History: Family History (Last Reviewed 10/17/19 @ 23:40 by Delmi Angeles MD) Father Diabetes Mother Diabetes History Items: Heart Disease - CAD s/p CABG history. Patient notes that his paternal grandmother had diabetes. Review of Systems Constitutional: Reports: Weakness, Fatigue. Denies: Anorexia, Chills, Fever Eyes: Denies: Blurred vision, Double vision, Drainage, Redness HEENT: Denies: Difficulty Hearing, Ear Pain, Eye Pain, Nasal Congestion, Sore Throat Cardiovascular: Denies: Chest Pain, Chest Pressure, Chest Tightness, Heaviness, Light Headedness, Palpitations, Syncope Respiratory: Denies: Cough, Pleuritic Pain, Shortness of Breath, Sputum production, Wheezing Gastrointestinal: Reports: Diarrhea. Denies: Abdominal Pain, Constipation, Nausea, Vomiting Genitourinary: Denies: Dysuria, Frequency, Hematuria Musculoskeletal: Denies: Arm Pain, Back Pain, Foot Pain Skin: Denies: Dryness, Rash Neurological: Denies: Balance problems, Double vision, Change in Speech, Slurred speech, Confusion, Focal weakness, Headaches, Incoordination, Numbness Psychiatric: Denies: Anxiety, Depression Endocrine: Denies: Change in Body Habitus, Polydipsia, Polyuria VTE Information - Inpt Only VTE Present on Admission: No VTE Mechan Device Prophylaxis: None VTE Pharm Prophylaxis ordered?: Yes Patient Problems: Active and Suspected Problems (Last Updated 10/17/19 @ 23:38 by Delmi Angeles MD) Scrotal abscess (Acute) - Physical Exam Vitals/I&O's: Vital Signs Temp Pulse Resp BP Pulse Ox 97.8 F 89 13 120/80 100 10/17/19 21:08 10/17/19 21:08 10/17/19 21:08 10/17/19 21:08 10/17/19 21:08 Oxygen Delivery Method Room Air Weight: 115 lb 15.41 oz Body Mass Index (BMI) 15.0 Finger Stick Blood Glucose 364 General: Alert, Oriented x3, Cooperative, - - Very cachectic, malnourished. HEENT: Atraumatic, PERRLA, EOMI, Normocephalic Oral: No Gingival or Mucosal Lesions/ Ulcerations, Dry Mucosa Neck: Supple, No JVD, Negative Carotid Bruits, Trachea Midline, Thyroid Normal Size and Texture Lungs: Clear to auscultation, Normal air movement, No rhonchi, No wheeze, No rales, Diminished Cardiovascular: Regular rate, Regular Rhythm, Normal S1, Normal S2, PMI Normal Abdomen: Bowel Sounds Present, Soft, Non Tender, Non-Distended, No Hepato- splenomegaly, - - Scaphoid abdomen. Extremities: No clubbing, No cyanosis, Edema - Trace edema. Skin: No rashes, No breakdown Lymphatic: No Cervical, Supraclavicular, or Inguinal Adenopathy Neurological: Cranial nerves II-XII grossly intact, Motor Exam 5/5 strength throughout Psych/Mental Status: Normal Affect, Appropriate, Alert and oriented to time, place, person, mood and affect Laboratory Results 10/17/19 21:23: WBC 21.9 H, RBC 3.91 L, Hgb 12.3 L, Hct 36.1 L, MCV 92.3, MCH 31.5, MCHC 34.1, RDW Std Deviation 43.0, RDW Coeff of [place] 12.8, Plt Count 326, MPV 8.8, Immature Gran % (Auto) 1.000 H, Neut % (Auto) 80.1 H, Lymph % (Auto) 10.4 L, [place] % (Auto) 7.5, Eos % (Auto) 0.5, Baso % (Auto) 0.5, Absolute Neuts (auto) 17.5 H, Absolute Lymphs (auto) 2.27, Nucleated RBC % 0, Differential Comment SCANNED, Diff Path Review February, Platelet Estimate ADEQUATE, RBC Morphology NORM C+C 10/17/19 21:23: PT 14.7, INR 1.2, APTT 30.3 10/17/19 21:23: Sodium 134 L, Potassium 5.4 H, Chloride 109 H, Carbon Dioxide 19.0 L, Anion Gap 6, BUN 58 H, Creatinine 1.88 H, Estim Creat Clear Calc 33.81, Est GFR (MDRD) Af Amer 48 L, Est GFR (MDRD) Non-Af 40 L, BUN/Creatinine Ratio 30.9 H, Glucose 165 H, Calcium 8.9, Total Bilirubin 0.40, AST 25, ALT 46, Alkaline Phosphatase 138 H, Total Protein 8.3 H, Albumin 3.1 L, Globulin 5.2 H, Albumin/Globulin Ratio 0.6 L, Lipase 144 10/17/19 21:23: Lactic Acid 1.0 Clinical Impression(s) from Imaging Studies Brain CT 10/17/19 21:13 IMPRESSION: Normal unenhanced CT scan of the brain. Electronically Signed: David Wright MD at 22:45 EST , Service support , Chest X-Ray 10/17/19 21:25 IMPRESSION: There is NO acute cardiopulmonary abnormality. Electronically Signed: David Wright MD at 21:42 EST , Service support , Abdomen/Pelvis CT 10/17/19 21:51 IMPRESSION: There has been a cholecystectomy. The bile ducts are slightly dilated. There is NO evidence of choledocholithiasis. There is NO bowel obstruction or bowel wall thickening. The appendix is not identified. There is NO ascites or free air, peritoneal abscess or adenopathy. There is a 3 cm subcutaneous abscess in the inferior aspect of the RIGHT hemiscrotum. There is NO subcutaneous emphysema. Electronically Signed: David Wright MD at 22:50 EST , Service support , Chest CT 10/17/19 21:51 IMPRESSION: There is NO acute cardiopulmonary abnormality. Electronically Signed: David Wright MD at 22:55 EST , Service support , Current Medications Piperacillin Sod/Tazobactam (Sod 3.375 gm/ Sodium Chloride) 50 mls @ 100 mls/hr IV X1 ONE Stop: 10/17/19 23:30 Vancomycin HCl 750 mg/ Sodium (Chloride) 265 mls @ 250 mls/hr IV X1 ONE Stop: 10/18/19 00:18 Assessment/Plan All Active Problems (Last Updated 10/17/19 @ 23:38 by Delmi Angeles MD) Scrotal abscess (Acute) Acute kidney injury (Acute) This is a 54 years old male patient presented to the emergency room because of multiple complaints including weakness, difficulty swallowing and scrotal boil and he was found to have scrotal abscess, acute kidney injury and mild hyperkalemia. #1 scrotal abscess: Status post incision and drainage at the bedside that was done by the ER physician. No evidence of sepsis or severe sepsis. Patient does have leukocytosis, no tachycardia, no tachypnea and he is afebrile. Lactic acid was normal. Plan: [facility], blood culture, wound culture, urinalysis, urine culture, MRSA wound screen, start IV Zosyn, urology consult, Tylenol PRN, OxyIR PRN, IV fluids, repeat CBC and BMP tomorrow morning, PT OT evaluation and treatment. #2 acute kidney injury/mild hyperkalemia: Due to poor oral intake, patient is very cachectic, dehydrated with very dry skin. He does have history of dysphagia. His baseline kidney function is normal. Admission creatinine is 1.88, BUN is 58. Potassium is 5.4. Plan: IV fluids with Ringer's lactate, input output chart, repeat BMP tomorrow morning, avoid nephrotoxic drugs. #3 dysphagia: This is a chronic issue for the patient. Plan: Speech therapy c onsult for evaluation and treatment. #4 severe protein calorie malnutrition: There was a suspicion that patient may have hidden malignancy. CT scan of the brain, chest, abdomen and pelvis performed and showed no evidence of abnormal masses or tumors. Plan: Check prealbumin, nutrition consult. #5 uncontrolled type 2 diabetes mellitus: Patient claimed that his blood glucose has been under control. His hemoglobin A1c was 10.7% on January,. Blood glucose on admission was 165. Plan: ADA diet, Accu-Cheks every 6 hours, insulin sliding scale, continue home doses of Lantus and Humalog, consult nutrition. #6 hypertension: According to the patient, he was taken off his antihypertensive medications. At this time, he stated that he does not take any blood pressure medications. Blood pressure stable. Plan to monitor. #7 history of hepatitis C: Never been treated for it. Today, LFT was unremarkable except minimally elevated alkaline phosphatase. Recommend follow- up with infectious disease as outpatient. #8 chronic back pain: Tylenol PRN, OxyIR PRN. #9 DVT prophylaxis: Subcu heparin. This note was generated with [employer] dictation software. It may contain incorrect words, spelling, and punctuation that were not noted in checking the note before signing. Code Visit Inpatient E&M: 09606 Init Hosp L3
[2019-10-17] MEDS: HYDROmorphone 0.5 MG/0.5 ML SYRINGE IV (23:17)
[2019-10-17 23:27] VITALS: BP 116/65; PULSE 75; RESP 13; O2SAT 100
--- NOTE | 2019-10-17 23:59 | ED.RN ---
PATIENT REFUSED TO BE CATHETERIZED. THE DOCTOR IS AWARE. PATIENT WAS UNABLE TO VOID AT THIS TIME.
--- NOTE | 2019-10-18 00:01 | ED.RN ---
I WENT AGAINST TWO INTERVENTIONS THAT I DID NOT DO RELATED TO DRESSNGS/ SUTURES BECAUSE THEY WERE NOT NEEDED, AND I ACCIDENTLY PUT HIGH BLOOD GLUCOSE INSTEAD OF NOT NEEDED.
--- NOTE | 2019-10-18 00:12 | ED.RN ---
PATIENT REFUSED TO PUT A GOWN ON PRIOR TO GOING TO THE FLOOR.
[2019-10-18 00:46] VITALS: BMI 14.2
[2019-10-18] MEDS: Lactated Ringers 1,000 ML 100 ML IV (01:46)
[2019-10-18] MEDS: oxyCODONE 5 MG Tablet PO (02:00)
[2019-10-18 02:03] LABS: M R Staph aureus DNA By PCR Negative (Negative); Probe Check PASS; Specimen Processing Control PASS; Staph aureus DNA By PCR POSITIVE (Negative)
[2019-10-18 02:06] LABS: Bedside Glucose 99 mg/dL (70-110)
[2019-10-18 02:47] LABS: Prealbumin 17.4 mg/dL (20.0-40.0)
[2019-10-18 06:19] LABS: Absolute Lymphocyte Count 1.01 X10^3/uL (0.83-4.51); Absolute Neutrophil Count 4.9 X10^3/uL (2.0-7.7); Basophil# 0.03 X10^3/uL; Basophil% 0.4 % (0-1); Eosinophil# 0.36 X10^3/uL; Eosinophils% 5.3 % (0-5); Hematocrit 35.4 % (40-54); Lymphocyte # 1.01 X10^3/ul (4.0); Lymphocyte % 14.9 % (19-41); Mean Corp Hgb Conc 31.1 g/dL (32-36); Mean Corpuscular Hgb 28.2 pg (27.0-32.0); Mean Corpuscular Volume 90.8 fL (80-94); Mean Platelet Vol. 9.9 fl (6.2-12.0); Monocyte# 0.43 X10^3/uL; Monocyte% 6.3 % (0-10); NRBC Flagged by Analyzer 0 % (0-5); Neutrophil # 4.91 X10^3/uL (2.7-7.7); Neutrophil % 72.5 % (47-70); Platelet Count 206 K/mm3 (150-450); RBC Distribution Width CV 14.9 % (11.6-14.6); White Blood Count 6.8 K/mm3 (4.4-11.0)
[2019-10-18 06:43] LABS: Anion Gap 4 (5-15); BUN 28 mg/dL (7-18); BUN/Creat Ratio 21.5 RATIO (10-20); Chloride 103 mmol/L (98-107); EST Glomerular Filtration Rate 61 mL/min (>60); Est Glom Filt Rate - Afr Amer 74 mL/min (>60); Estimated Creatinine Clearance 46.01 ml/min; Glucose 92 mg/dL (74-106); Sodium Level 139 mmol/L (136-145)
[2019-10-18 07:42] VITALS: O2SAT 95
[2019-10-18 08:18] VITALS: BP 100/63; PULSE 76; RESP 16; TEMP 36.7; O2SAT 96
--- NOTE | 2019-10-18 08:19 | PN_ITS ---
Patient Problems: Active and Suspected Problems (Last Updated 10/17/19 @ 23:38 by Delmi Angeles MD) Scrotal abscess (Acute) Subjective: The patient is a 54-year-old male with multiple complaints who presented to the emergency department complaining of a lump on his scrotum. He was diagnosed with a 3 cm subcutaneous abscess of the right hemiscrotum which was incised and drained by the ER physician. - Physical Exam Vitals/I&O's: Vital Signs Temp Pulse Resp BP Pulse Ox 97.8 F 75 13 116/65 95 10/17/19 21:08 10/17/19 23:27 10/17/19 23:27 10/17/19 23:27 10/18/19 07:42 Oxygen Flow Rate (L/min) 2 Oxygen Delivery Method Room Air Weight: 109 lb 2.061 oz Body Mass Index (BMI) 14.2 Finger Stick Blood Glucose 364 Intake and Output for Last 24 Hours 10/16/19 10/17/19 10/18/19 23:59 23:59 23:59 Intake Total 1795 / 1795 Balance 1795 / 1795 Laboratory Results 10/17/19 21:23: WBC 21.9 H, RBC 3.91 L, Hgb 12.3 L, Hct 36.1 L, MCV 92.3, MCH 31.5, MCHC 34.1, RDW Std Deviation 43.0, RDW Coeff of [place] 12.8, Plt Count 326, MPV 8.8, Immature Gran % (Auto) 1.000 H, Neut % (Auto) 80.1 H, Lymph % (Auto) 10.4 L, [place] % (Auto) 7.5, Eos % (Auto) 0.5, Baso % (Auto) 0.5, Absolute Neuts (auto) 17.5 H, Absolute Lymphs (auto) 2.27, Nucleated RBC % 0, Differential Comment SCANNED, Diff Path Review February, Platelet Estimate ADEQUATE, RBC Morphology NORM C+C 10/17/19 21:23: PT 14.7, INR 1.2, APTT 30.3 10/17/19 21:23: Sodium 134 L, Potassium 5.4 H, Chloride 109 H, Carbon Dioxide 19.0 L, Anion Gap 6, BUN 58 H, Creatinine 1.88 H, Estim Creat Clear Calc 33.81, Est GFR (MDRD) Af Amer 48 L, Est GFR (MDRD) Non-Af 40 L, BUN/Creatinine Ratio 30.9 H, Glucose 165 H, Calcium 8.9, Total Bilirubin 0.40, AST 25, ALT 46, Al kaline Phosphatase 138 H, Total Protein 8.3 H, Albumin 3.1 L, Globulin 5.2 H, Albumin/Globulin Ratio 0.6 L, Lipase 144 10/17/19 21:23: Lactic Acid 1.0 10/17/19 21:23: Hemoglobin A1c 10.0 H 10/17/19 21:23: Prealbumin 17.4 L 10/17/19 23:15: S.aureus Protein A PCR POSITIVE H, MRSA (PCR) Negative 10/18/19 01:50: POC Glucose 99 10/18/19 05:30: WBC 6.8, RBC 3.90 L, Hgb 11.0 L, Hct 35.4 L, MCV 90.8, MCH 28.2, MCHC 31.1 L, RDW Std Deviation 49.0 H, RDW Coeff of [place] 14.9 H, Plt Count 206, MPV 9.9, Immature Gran % (Auto) 0.600, Neut % (Auto) 72.5 H, Lymph % (Auto) 14.9 L, [place] % (Auto) 6.3, Eos % (Auto) 5.3 H, Baso % (Auto) 0.4, Absolute Neuts (auto) 4.9, Absolute Lymphs (auto) 1.01, Nucleated RBC % 0 10/18/19 05:30: Sodium 139, Potassium 4.0, Chloride 103, Carbon Dioxide 32.0, Anion Gap 4 L, BUN 28 H, Creatinine 1.30, Estim Creat Clear Calc 46.01, Est GFR (MDRD) Af Amer 74, Est GFR (MDRD) Non-Af 61, BUN/Creatinine Ratio 21.5 H, Glucose 92, Calcium 8.0 L Current Medications Acetaminophen (Tylenol) 650 mg PO Q6H PRN PRN PRN Reason: Pain Score 1-3/Temp > 100.7 F Glucagon () 1 mg IM .X1 PRN PRN Reason: Hypoglycemia Heparin Sodium (Porcine) (Heparin Na) 5,000 unit SC Q12 JANKI Sodium Chloride () 250 mls @ 15 mls/hr IV .[id number] PRN PRN Reason: Saline Flush Sodium Chloride () 250 mls @ 15 mls/hr IV .[id number] PRN PRN Reason: Additional IVPB Infusion Lactated Ringer's () 1,000 mls @ 100 mls/hr IV .Q10H JANKI Last Admin: 10/18/19 01:46 Dose: 100 mls/hr Documented by: Piperacillin Sod/Tazobactam (Sod 3.375 gm/ Sodium Chloride) 50 mls @ 12.5 mls/hr IV Q8 JANKI Last Admin: 10/18/19 06:47 Dose: 12.5 mls/hr Documented by: Dextrose (Dextrose 10%-Water) 250 mls @ 999 mls/hr IV .Q16M PRN; Protocol PRN Reason: HYPOGLYCEMIA Insulin Glargine (Lantus (Bkc)) 16 units SC DAILY JANKI Insulin Human Lispro (Humalog Kwikpen (Bkc)) 0 unit SC Q6 JANKI; Protocol Last Admin: 10/18/19 06:47 Dose: Not Given Documented by: Insulin Human Lispro (Humalog Kwikpen (Bkc)) 12 unit SC TIDCM [facility] Magnesium Hydroxide (Milk Of Magnesia) 30 ml PO DAILY PRN PRN PRN Reason: Constipation Nutritional Formula (Lactose Free) (Glucerna Shake) 120 ml PO 4X/DAY [facility] Ondansetron HCl (Zofran) 4 mg IV Q8H PRN PRN PRN Reason: NAUSEA/VOMITING Oxycodone HCl (Oxyir) 5 mg PO Q6H PRN PRN PRN Reason: Pain Score 6-10/10 Last Admin: 10/18/19 02:00 Dose: 5 mg Documented by: Sodium Chloride () 10 - 40 ml IV UD PRN PRN Reason: SALINE FLUSH Medical Necessity - Tobacco Use Smoking Status: Never smoker Assessment/Plan All Active Problems (Last Updated 10/17/19 @ 23:38 by Delmi Angeles MD) Scrotal abscess (Acute) Acute kidney injury (Acute)
[2019-10-18 08:26] LABS: Bedside Glucose 96 mg/dL (70-110)
[2019-10-18] MEDS: Insulin Lispro 100 UNIT/ML INSULN.PEN 12 UNIT SC (08:33)
--- NOTE | 2019-10-18 08:41 | NURSING ---
PT ASKED ABOUT WHY I DIDNT GIVE HIM PAIN MEDS THAT WERE DUE, THEN REFUSED WHEN OFFERED.
--- NOTE | 2019-10-18 09:41 | NURSING ---
Consult for Dr. Loving. This nurse Called concrete placement equipment operator and Primo from [facility] stated [place]. This nurse informed Dr. Saucedo of this.
--- NOTE | 2019-10-18 10:44 | DCINST_ITS ---
- Discharge Diagnoses Current Active Problems: Current Active and Chronic Problems (Last Updated 10/17/19 @ 23:38 by Delmi Angeles MD) Scrotal abscess (Acute) You will use the following diet at home:: Calorie/Carbohydrate Controlled (specify 1200, 1400, etc), Cardiac Your food should be the consistency of: Regular Your liquids should be the consistency of: Regular/Thin Discharge Activity: Return to Normal Activity Call your doctor if your incision/area has: Sudden Increased Bleeding, Increased Pain/ Swelling, Increased Redness, Foul Smelling Discharge Call your doctor if you observe: Fever of 101 or Higher, - - Call your PCP if severe diarrhea ( > 5 stools a day), painful sores in the mouth, painful swallowing, rash or itching. Taking a probiotic such as Lactobacillus or Kefir can help with loose stools while taking antibiotics. Additional Instructions: 1. Wash the incision twice daily with soap and water. 2. Follow up with Dr. Miller Wednesday. 3. Take the antibiotics with food and make sure to finish all the antibiotics as prescribed. Pending Tests on Discharge: Final wound culture report. Preliminary is Staph Aureus and it is not MRSA. Allergies/Adverse Reactions: Allergies morphine Allergy (Verified 10/17/19 21:08) headaches pt states gets very bad headaches from morphine dicyclomine [From Bentyl] Adverse Reaction (Verified 10/17/19 21:08) Abd cramps/diarrhea fentanyl Adverse Reaction (Verified 10/17/19 21:08) Pt didn't like how it made him feel PT STATES HE DOES NOT LIKE HOW IT MAKES HIM FEEL. ketorolac [From Toradol] Adverse Reaction (Verified 10/17/19 21:08) real sluggish Medications to take at Discharge Insulin Glargine [Lantus SoloStar Pen] 16 units SUBCUT QHS 10/17/19 Insulin Lispro [Humalog KwikPen] 12 units SQ TID 10/17/19 Acetaminophen [Tylenol Tablet] 650 mg PO Q6H PRN PRN tablet 10/18/19 Amoxicillin/Potassium Clav [Augmentin 875-125 Tablet] 1 ea PO BID #17 tab 10/18/19 Oxycodone HCl/Acetaminophen [Percocet 5/325] 1 - 2 tablet PO Q4H PRN PRN 7 Days #30 tablet 10/18/19 The following prescriptions were given: Amoxicillin/Potassium Clav [Augmentin 875-125 Tablet] 1 ea PO BID #17 tab Transmission Status: Pending to [facility]30 Oxycodone HCl/Acetaminophen [Percocet 5/325] 1 - 2 tablet PO Q4H PRN PRN 7 Days #30 tablet PRN Reason: Pain Transmission Status: Sent to [facility] Primary Care Physician: Guido Miller MD [Primary Care Provider] - Please follow up with your Primary Care Physician in: Wednesday10/20/19 Test Results: Test results from this visit will be discussed in further detail at your follow- up appointment, if applicable. Proposed Discharge Date: 10/18/19
--- NOTE | 2019-10-18 10:50 | PCM.DC.SUM ---
Discharge Date and Diagnosis Date of Admission: 10/17/19 Date of Discharge: 10/18/19 - Primary Discharge Diagnosis Active and Suspected Problems (Last Updated 10/17/19 @ 23:38 by Delmi Angeles MD) Scrotal abscess (Acute) due to MSSA ARF due to dehydration more likely than not due to uncontrolled DM II - resolved Dehydration - Secondary Discharge Diagnosis Chronic Problems (Last Updated 10/17/19 @ 23:38 by Delmi Angeles MD) HLD (hyperlipidemia) (Chronic) Hepatitis C antibody positive in blood (Chronic) Dysphagia (Chronic) Malnutrition (Chronic)- severe, chronic Normochromic Normocytic Anemia (Chronic) Lumbar foraminal stenosis (Chronic) Elevated liver enzymes (Chronic) Type 2 diabetes mellitus (Chronic) - uncontrolled Chronic back pain (Chronic) Hypertension (Chronic) 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 Electronically Signed: David Wright MD at 22:45 EST , Service support , Chest X-Ray 10/17/19 21:25 IMPRESSION: There is NO acute cardiopulmonary abnormality. Electronically Signed: David Wright MD at 21:42 EST , Service support , Abdomen/Pelvis CT 10/17/19 21:51 IMPRESSION: There has been a cholecystectomy. The bile ducts are slightly dilated. There is NO evidence of choledocholithiasis. There is NO bowel obstruction or bowel wall thickening. The appendix is not identified. There is NO ascites or free air, peritoneal abscess or adenopathy. There is a 3 cm subcutaneous abscess in the inferior aspect of the RIGHT hemiscrotum. There is NO subcutaneous emphysema. Electronically Signed: David Wright MD at 22:50 EST , Service support , Chest CT 10/17/19 21:51 IMPRESSION: There is NO acute cardiopulmonary abnormality. Electronically Signed: David Wright MD at 22:55 EST , Service support , Laboratory Results - last 24 hr 10/17/19 10/17/19 10/17/19 21:23 21:23 21:23 WBC 21.9 H RBC 3.91 L Hgb 12.3 L Hct 36.1 L MCV 92.3 MCH 31.5 MCHC 34.1 RDW Std Deviation 43.0 RDW Coeff of Glen 12.8 Plt Count 326 MPV 8.8 Immature Gran % (Auto) 1.000 H Neut % (Auto) 80.1 H Lymph % (Auto) 10.4 L Barrow % (Auto) 7.5 Eos % (Auto) 0.5 Baso % (Auto) 0.5 Absolute Neuts (auto) 17.5 H Absolute Lymphs (auto) 2.27 Nucleated RBC % 0 Differential Comment SCANNED Diff Path Review May foll Platelet Estimate ADEQUATE RBC Morphology NORM C+C PT 14.7 INR 1.2 APTT 30.3 Sodium 134 L Potassium 5.4 H Chloride 109 H Carbon Dioxide 19.0 L Anion Gap 6 BUN 58 H Creatinine 1.88 H Estim Creat Clear Calc 33.81 Est GFR (MDRD) Af Amer 48 L Est GFR (MDRD) Non-Af 40 L BUN/Creatinine Ratio 30.9 H Glucose 165 H Hemoglobin A1c Lactic Acid Calcium 8.9 Total Bilirubin 0.40 AST 25 ALT 46 Alkaline Phosphatase 138 H Total Protein 8.3 H Albumin 3.1 L Globulin 5.2 H Albumin/Globulin Ratio 0.6 L Prealbumin Lipase 144 S.aureus Protein A PCR MRSA (PCR) POC Glucose 10/17/19 10/17/19 10/17/19 21:23 21:23 21:23 WBC RBC Hgb Hct MCV MCH MCHC RDW Std Deviation RDW Coeff of Glen Plt Count MPV Immature Gran % (Auto) Neut % (Auto) Lymph % (Auto) Barrow % (Auto) Eos % (Auto) Baso % (Auto) Absolute Neuts (auto) Absolute Lymphs (auto) Nucleated RBC % Differential Comment Diff Path Review Platelet Estimate RBC Morphology PT INR APTT Sodium Potassium Chloride Carbon Dioxide Anion Gap BUN Creatinine Estim Creat Clear Calc Est GFR (MDRD) Af Amer Est GFR (MDRD) Non-Af BUN/Creatinine Ratio Glucose Hemoglobin A1c 10.0 H Lactic Acid 1.0 Calcium Total Bilirubin AST ALT Alkaline Phosphatase Total Protein Albumin Globulin Albumin/Globulin Ratio Prealbumin 17.4 L Lipase S.aureus Protein A PCR MRSA (PCR) POC Glucose 10/17/19 10/18/19 10/18/19 23:15 01:50 05:30 WBC 6.8 RBC 3.90 L Hgb 11.0 L Hct 35.4 L MCV 90.8 MCH 28.2 MCHC 31.1 L RDW Std Deviation 49.0 H RDW Coeff of Glen 14.9 H Plt Count 206 MPV 9.9 Immature Gran % (Auto) 0.600 Neut % (Auto) 72.5 H Lymph % (Auto) 14.9 L Barrow % (Auto) 6.3 Eos % (Auto) 5.3 H Baso % (Auto) 0.4 Absolute Neuts (auto) 4.9 Absolute Lymphs (auto) 1.01 Nucleated RBC % 0 Differential Comment Diff Path Review Platelet Estimate RBC Morphology PT INR APTT Sodium Potassium Chloride Carbon Dioxide Anion Gap BUN Creatinine Estim Creat Clear Calc Est GFR (MDRD) Af Amer Est GFR (MDRD) Non-Af BUN/Creatinine Ratio Glucose Hemoglobin A1c Lactic Acid Calcium Total Bilirubin AST ALT Alkaline Phosphatase Total Protein Albumin Globulin Albumin/Globulin Ratio Prealbumin Lipase S.aureus Protein A PCR POSITIVE H MRSA (PCR) Negative POC Glucose 99 10/18/19 10/18/19 05:30 08:12 WBC RBC Hgb Hct MCV MCH MCHC RDW Std Deviation RDW Coeff of Glen Plt Count MPV Immature Gran % (Auto) Neut % (Auto) Lymph % (Auto) Barrow % (Auto) Eos % (Auto) Baso % (Auto) Absolute Neuts (auto) Absolute Lymphs (auto) Nucleated RBC % Differential Comment Diff Path Review Platelet Estimate RBC Morphology PT INR APTT Sodium 139 Potassium 4.0 Chloride 103 Carbon Dioxide 32.0 Anion Gap 4 L BUN 28 H Creatinine 1.30 Estim Creat Clear Calc 46.01 Est GFR (MDRD) Af Amer 74 Est GFR (MDRD) Non-Af 61 BUN/Creatinine Ratio 21.5 H Glucose 92 Hemoglobin A1c Lactic Acid Calcium 8.0 L Total Bilirubin AST ALT Alkaline Phosphatase Total Protein Albumin Globulin Albumin/Globulin Ratio Prealbumin Lipase S.aureus Protein A PCR MRSA (PCR) POC Glucose 96 Microbiology 10/17/19 23:15 Scrotal Abcess Wound Culture - Preliminary Staphylococcus species - MSSA Consultations 10/18/19 01:25 Consult: Onc/Wound/university relations recruiter Routine Comment: Operations: None Procedures: None, - - incision and drainage of scrotal abscess Summary of Care Provided: The patient is a 54 year old M well known to me from a previous admission to [facility] in January of 2019 for necrotizing fasciitis of the left hand. His PMH is significant for uncontrolled DM II, positive hepatitis C antibody, chronic severe malnutrition, prior ETOH abuse, suspected narcotic dependence, chronic back pain, hypertension, hyperlipidemia and stage 2 CRF. He presented to the ED at [facility] on 10/17 with multiple complaints. He had not seen his PCP in several months. His complaints included but were not limited to difficulty swallowing (present for several months), weight loss (ongoing for at least the past year) and a lump in his scrotum. He additionally complained of total body pain. He denies fevers or rigors. On E in the ED he was noted to have a spontaneously draining abscess on the left hemiscrotum. A CT scan of the abdomen and pelvis showed a 3 cm subcutaneous abscess in the inferior aspect of the right hemiscrotum with no subcutaneous emphysema. A noncontrasted CT of the brain was normal. Chest x-ray showed no acute cardiopulmonary abnormalities. The white blood cell count was elevated at 21.9 with a left shift. Hemoglobin was 12.3 with normochromic normocytic indices and the platelet count was 326,000. Potassium was high at 5.4 and the BUN was 58 with a creatinine of 1.88, up from 1.29 in April 2019. Lactic acid was within normal limits. A bedside incision and drainage was performed by Dr. Contreras in the emergency department and purulence was expressed. A PCR on the drainage was negative for MRSA but positive for staph aureus. He was admitted to the hospital with a dx of ARF due to dehydration and scrotal abscess due to MSSA. He was started on Zosyn. IV fluids were ordered. The following morning he was afebrile with stable vital signs. The pulse ox was 95 to 96% on room air. The white blood cell count had decreased to 6.8 with 72% neutrophils. Hemoglobin was 11 and the platelets were within normal limits. The sodium had increased from 1 34-1 39 and the potassium was 4.0, down from 5.4 at admission. BUN was 28 and the creatinine was down to 1.3 which is within his baseline. LFTs were unremarkable with the exception of a mild increase in alkaline phosphatase to 138. BS's were in the 90's on the regimen he was supposed to be taking at home. He was alert and appeared to be in no distress. There was a small amount of serosanguineous DC from the abscess and induration around the incision. There was no odor. There was a small amount of erythema but no significant increase in warmth. He was discharged home with a RX for Augmentin to complete 10 days of tx. He was instructed to wash the area BID with soap and water. He was instructed to follow up with Dr. Gold or Kailash Epstein in the office on Wednesday. He has not been keeping appts and has not followed up with Dr. Miller in at least a few months. He is cachetic, weak and has been having falls. He was strongly encouraged to keep the appt with Dr. Miller or Kailash Epstein to address his chronic problems. I know from conversations with his that he has abused narcotics in the past. His HIV was negative in January. He is constantly asking for narcotics in the hospital and specifically wants IV narcotics. I suspect he may have an occult malignancy or he is using and not eating. No drug screen was done in the ED. I reviewed his OARRS report and he has not been getting RX's for narcotics. His problems are chronic and not acute other than the abscess and they are more appropriate for an OP work up. This note was generated with [employer] dictation software. It may contain incorrect words, spelling, and punctuation that were not noted in checking the note before signing. - Physical Exam Vitals/I&O's: Vital Signs Temp Pulse Resp BP Pulse Ox 98.0 F 76 16 100/63 96 10/18/19 08:18 10/18/19 08:18 10/18/19 08:18 10/18/19 08:18 10/18/19 08:18 Oxygen Flow Rate (L/min) 2 Oxygen Delivery Method Room Air Weight: 109 lb 2.061 oz Body Mass Index (BMI) 14.2 Finger Stick Blood Glucose 364 Intake and Output for Last 24 Hours 10/16/19 10/17/19 10/18/19 23:59 23:59 23:59 Intake Total 1795 / 179 Balance 1795 / 179 Microbiology Past 72 Hours 10/17/19 23:15 Scrotal Abcess Wound Culture - Preliminary Staphylococcus species Laboratory Results 10/17/19 21:23: WBC 21.9 H, RBC 3.91 L, Hgb 12.3 L, Hct 36.1 L, MCV 92.3, MCH 31.5, MCHC 34.1, RDW Std Deviation 43.0, RDW Coeff of Glen 12.8, Plt Count 326, MPV 8.8, Immature Gran % (Auto) 1.000 H, Neut % (Auto) 80.1 H, Lymph % (Auto) 10.4 L, Barrow % (Auto) 7.5, Eos % (Auto) 0.5, Baso % (Auto) 0.5, Absolute Neuts (auto) 17.5 H, Absolute Lymphs (auto) 2.27, Nucleated RBC % 0, Differential Comment SCANNED, Diff Path Review February, Platelet Estimate ADEQUATE, RBC Morphology NORM C+C 10/17/19 21:23: PT 14.7, INR 1.2, APTT 30.3 10/17/19 21:23: Sodium 134 L, Potassium 5.4 H, Chloride 109 H, Carbon Dioxide 19.0 L, Anion Gap 6, BUN 58 H, Creatinine 1.88 H, Estim Creat Clear Calc 33.81, Est GFR (MDRD) Af Amer 48 L, Est GFR (MDRD) Non-Af 40 L, BUN/Creatinine Ratio 30.9 H, Glucose 165 H, Calcium 8.9, Total Bilirubin 0.40, AST 25, ALT 46, Alkaline Phosphatase 138 H, Total Protein 8.3 H, Albumin 3.1 L, Globulin 5.2 H, Albumin/Globulin Ratio 0.6 L, Lipase 144 10/17/19 21:23: Lactic Acid 1.0 10/17/19 21:23: Hemoglobin A1c 10.0 H 10/17/19 21:23: Prealbumin 17.4 L 10/17/19 23:15: S.aureus Protein A PCR POSITIVE H, MRSA (PCR) Negative 10/18/19 01:50: POC Glucose 99 10/18/19 05:30: WBC 6.8, RBC 3.90 L, Hgb 11.0 L, Hct 35.4 L, MCV 90.8, MCH 28.2, MCHC 31.1 L, RDW Std Deviation 49.0 H, RDW Coeff of Glen 14.9 H, Plt Count 206, MPV 9.9, Immature Gran % (Auto) 0.600, Neut % (Auto) 72.5 H, Lymph % (Auto) 14.9 L, Barrow % (Auto) 6.3, Eos % (Auto) 5.3 H, Baso % (Auto) 0.4, Absolute Neuts (auto) 4.9, Absolute Lymphs (auto) 1.01, Nucleated RBC % 0 10/18/19 05:30: Sodium 139, Potassium 4.0, Chloride 103, Carbon Dioxide 32.0, Anion Gap 4 L, BUN 28 H, Creatinine 1.30, Estim Creat Clear Calc 46.01, Est GFR (MDRD) Af Amer 74, Est GFR (MDRD) Non-Af 61, BUN/Creatinine Ratio 21.5 H, Glucose 92, Calcium 8.0 L 10/18/19 08:12: POC Glucose 96 Current Medications Acetaminophen (Tylenol) 650 mg PO Q6H PRN PRN PRN Reason: Pain Score 1-3/Temp > 100.7 F Glucagon () 1 mg IM .X1 PRN PRN Reason: Hypoglycemia Heparin Sodium (Porcine) (Heparin Na) 5,000 unit SC Q12 [facility] Last Admin: 10/18/19 10:27 Dose: Not Given Documented by: Sodium Chloride () 250 mls @ 15 mls/hr IV .[id number] PRN PRN Reason: Saline Flush Sodium Chloride () 250 mls @ 15 mls/hr IV .[id number] PRN PRN Reason: Additional IVPB Infusion Lactated Ringer's () 1,000 mls @ 100 mls/hr IV .Q10H [facility] Last Admin: 10/18/19 01:46 Dose: 100 mls/hr Documented by: Piperacillin Sod/Tazobactam (Sod 3.375 gm/ Sodium Chloride) 50 mls @ 12.5 mls/hr IV Q8 [facility] Last Admin: 10/18/19 06:47 Dose: 12.5 mls/hr Documented by: Dextrose (Dextrose 10%-Water) 250 mls @ 999 mls/hr IV .Q16M PRN; Protocol PRN Reason: HYPOGLYCEMIA Insulin Glargine (Lantus (Bkc)) 16 units SC DAILY [facility] Last Admin: 10/18/19 10:27 Dose: Not Given Documented by: Insulin Human Lispro (Humalog Kwikpen (Bkc)) 0 unit SC Q6 [facility]; Protocol Last Admin: 10/18/19 06:47 Dose: Not Given Documented by: Insulin Human Lispro (Humalog Kwikpen (Bkc)) 12 unit SC TIDCM [facility] Last Admin: 10/18/19 08:33 Dose: 12 u Documented by: Magnesium Hydroxide (Milk Of Magnesia) 30 ml PO DAILY PRN PRN PRN Reason: Constipation Nutritional Formula (Lactose Free) (Glucerna Shake) 120 ml PO 4X/DAY [facility] Last Admin: 10/18/19 10:27 Dose: Not Given Documented by: Nutritional Formula (Lactose Free) (Ensure Enlive) 120 ml PO 4X/DAY [facility] Ondansetron HCl (Zofran) 4 mg IV Q8H PRN PRN PRN Reason: NAUSEA/VOMITING Oxycodone HCl (Oxyir) 5 mg PO Q6H PRN PRN PRN Reason: Pain Score 6-10/10 Last Admin: 10/18/19 02:00 Dose: 5 mg Documented by: Sodium Chloride () 10 - 40 ml IV UD PRN PRN Reason: SALINE FLUSH Discharge Activity: Return to Normal Activity Call your doctor if your incision/area has: Sudden Increased Bleeding, Increased Pain/ Swelling, Increased Redness, Foul Smelling Discharge Call your doctor if you observe: Fever of 101 or Higher, - - Call your PCP if severe diarrhea ( > 5 stools a day), painful sores in the mouth, painful swallowing, rash or itching. Taking a probiotic such as Lactobacillus or Kefir can help with loose stools while taking antibiotics. Home Medications: Medications to take at Discharge Insulin Glargine [Lantus SoloStar Pen] 16 units SUBCUT QHS 10/17/19 Insulin Lispro [Humalog KwikPen] 12 units SQ TID 10/17/19 Acetaminophen [Tylenol Tablet] 650 mg PO Q6H PRN PRN tab 10/18/19 Amoxicillin/Potassium Clav [Augmentin 875-125 Tablet] 1 ea PO BID #17 tab 10/18/19 Oxycodone HCl/Acetaminophen [Percocet 5/325] 1 - 2 tab PO Q4H PRN PRN 7 Days #30 tab 10/18/19 Following Prescrptions Were Given to Patient: Amoxicillin/Potassium Clav [Augmentin 875-125 Tablet] 1 ea PO BID #17 tab Prescription Printed Oxycodone HCl/Acetaminophen [Percocet 5/325] 1 - 2 tab PO Q4H PRN PRN 7 Days #30 tab PRN Reason: Pain Transmission Status: Received by [facility] Primary Care Physician: Guido Miller MD [Primary Care Provider] - Please follow up with your Primary Care Physician in: Wednesday10/20/19 Disposition: Home Minutes spent on discharge:: 30 Medical Necessity - Tobacco Use Smoking Status: Never smoker Meaningful Use Info Meaningful Use Diagnoses (Choose all that apply): None applicable Code Visit Inpatient E&M: 35207 Disch Hosp
[2019-10-19 12:37] LABS: Pathologist Review Reviewed
== END 2019-10-18 12:42 | disposition home or self-care (01) ==
LOC: ED 21:34 → MS3 23:48
PROVIDERS: Admitting Provider Hospitalist; Emergency Provider Emergency Medicine; Family Provider Internal Medicine; PCP Internal Medicine; Referring Provider Hospitalist; Visit Provider Internal Medicine
DX: N49.2 Inflammatory disorders of scrotum (principal); E86.0 Dehydration; N17.9 Acute kidney failure, unspecified; B95.61 Methicillin susceptible Staphylococcus aureus infection as the cause of diseases classified elsewhere; E78.5 Hyperlipidemia, unspecified; B18.2 Chronic viral hepatitis C; E11.65 Type 2 diabetes mellitus with hyperglycemia; E87.5 Hyperkalemia; E43 Unspecified severe protein-calorie malnutrition; R13.10 Dysphagia, unspecified; G89.29 Other chronic pain; I12.9 Hypertensive chronic kidney disease with stage 1 through stage 4 chronic kidney disease, or unspecified chronic kidney disease; N18.2 Chronic kidney disease, stage 2 (mild); E11.22 Type 2 diabetes mellitus with diabetic chronic kidney disease; Z79.4 Long term (current) use of insulin; Z68.1 Body mass index [BMI] 19.9 or less, adult
CPT/HCPCS: 55100; 36415; 70450; 71045; 71260; 74177; 80048; 80053; 82962; 83036; 83605; 83690; 84134; 85025; 85610; 85730; 87040; 87070; 87077; 87186; 87205; 87640; 92610; 96361; 96365; 96366; 96367; 96375; 96376; 97802; 99218; 99285; J7030; J7050; J7120; Q9967; A4216; G0378; J2405

== ENCOUNTER 2020-01-11 16:47 | Inpatient (IN) | payer MEDICAID, SELFPAY ==
[2019-10-18 00:46] VITALS: BMI 14.2
[2020-01-11] VITALS (7 sets, daily range): BP systolic 144–167; BP diastolic 100–109; PULSE 72–94; RESP 16–18; TEMP 36.4–36.9; O2SAT 100; BMI 15.7; BMI 16.0; BMI 16.1
--- NOTE | 2020-01-11 17:09 | CT_ITS ---
STUDY: CT ABDOMEN AND PELVIS WITHOUT CONTRAST REASON FOR EXAM: Male, 54 years old. LEFT FLANK PAIN S/P FALL RADIATION DOSAGE (If Supplied By Facility): CTDIvol = ( 6.04 ) mGy, DLP = ( 294.46 ) mGycm TECHNIQUE: Transaxial images were obtained from the dome of the diaphragm to the symphysis pubis without oral contrast, and without intravenous contrast. Sagittal and coronal images were reconstructed. Individualized dose optimization techniques were used for this CT. COMPARISON: 10/17/2019 FINDINGS: The visualized lung bases are unremarkable. The visualized portions of the heart are within normal limits. Normal liver. There is non-visualization of the gallbladder, which may be secondary to either contraction or a prior cholecystectomy. Normal spleen. Normal pancreas. Normal bilateral adrenal glands. Normal right kidney. Appears to be mild left hydronephrosis and left ureter. Exam is markedly limited without IV contrast or intra-abdominal fat. There appears to be a stone at the left UVJ measuring 4.2 mm. Normal visualized stomach. Normal small intestine. Normal colon. There are surgical clips in the region of the appendix consistent with a prior appendectomy. Normal abdominal aorta. Normal inferior vena cava. Normal retroperitoneum. Normal urinary bladder. Normal visualized prostate gland. Normal abdominal wall. Normal osseous structures. CT/Abdomen/Pelvis without Cont IMPRESSION: Left hydronephrosis and left hydroureter. Stone at the left UVJ as detailed above. Electronically Signed: Ajit Damon DO at 17:47 EDT Tel , Service support ,
--- NOTE | 2020-01-11 17:17 | ED.VISSUMM ---
- ER Visit Summary Date of Service: 01/11/20 Chief Complaint: Fall History of Present Illness: The patient is a 54 M who fell at home. He said his legs gave out. He said this happens from time to time. He did not lose consciousness. He landed on his left side. He denies any other injuries or complaints. Physical Examination: Afebrile and vital signs are unremarkable except for hypertension. Head and neck are atraumatic. Heart regular. Lungs clear. Abdomen soft and nontender with no guarding or rebound. Left flank is slightly tender to palpation. He has tenderness over his left inferior and posterior ribs and left pelvis tenderness. Spine is nontender. Lower extremity exam unremarkable. Test Results: CT pending. Emergency Department Course and Treatment: I initially ordered pain medicine and x-rays. His exam was reassuring. His vitals are reassuring. However, he had some vomiting, but denied abdominal pain. Given that he does have some flank pain. Will check a scan which will show his hips and his lower ribs, where he is also hurting as well. He was treated with pain medicine and Zofran while awaiting results. CT showed a 4 mm UVJ stone. Hemoglobin 11.4, BUN 31, creatinine 3.04. Urinalysis shows RBCs. Patient was treated with IV fluids and will need hospitalization for acute kidney injury. Hospitalist was contacted. Treatment Plan: As above Disposition: Admission Impression: Kidney stone Acute kidney injury This note was generated with [employer] dictation software. It may contain incorrect words, spelling, and punctuation that were not noted in review of the chart prior to signing ED Disposition - Plan for ED Patient: Referrals: Guido Miller MD [Primary Care Provider] -
[2020-01-11] MEDS: Ondansetron 4 MG/2 ML Vial IV (17:19)
[2020-01-11] MEDS: HYDROmorphone 1 MG/ML Syringe IV (17:20)
[2020-01-11 18:41] LABS: Absolute Lymphocyte Count 1.83 X10^3/uL (0.83-4.51); Absolute Neutrophil Count 6.5 X10^3/uL (2.0-7.7); Basophil# 0.04 X10^3/uL; Basophil% 0.4 % (0-1); Eosinophil# 0.17 X10^3/uL; Eosinophils% 1.7 % (0-5); Hematocrit 33.7 % (40-54); Hemoglobin 11.4 g/dL (13.0-16.5); Lymphocyte # 1.83 X10^3/ul (4.0); Lymphocyte % 18.5 % (19-41); Mean Corp Hgb Conc 33.8 g/dL (32-36); Mean Corpuscular Hgb 31.8 pg (27.0-32.0); Mean Corpuscular Volume 93.9 fL (80-94); Mean Platelet Vol. 10.5 fl (6.2-12.0); Monocyte# 1.19 X10^3/uL; Monocyte% 12.1 % (0-10); NRBC Flagged by Analyzer 0 % (0-5); Neutrophil # 6.54 X10^3/uL (2.7-7.7); Neutrophil % 66.3 % (47-70); Platelet Count 187 K/mm3 (150-450); RBC Distribution Width SD 44.9 fl (35.1-43.9); Red Blood Count 3.59 M/mm3 (4.6-6.2); White Blood Count 9.9 K/mm3 (4.4-11.0)
[2020-01-11 18:53] LABS: Anion Gap 5 (5-15); BUN 31 mg/dL (7-18); BUN/Creat Ratio 10.2 RATIO (10-20); Calcium,Total 8.4 mg/dL (8.5-10.1); Chloride 117 mmol/L (98-107); Creatinine, Serum 3.04 mg/dL (0.70-1.30); EST Glomerular Filtration Rate 23 mL/min (>60); Est Glom Filt Rate - Afr Amer 28 mL/min (>60); Estimated Creatinine Clearance 22.14 ml/min; Glucose 141 mg/dL (74-106); Sodium Level 137 mmol/L (136-145)
[2020-01-11] MEDS: HYDROmorphone 0.5 MG/0.5 ML SYRINGE IV ×2 (18:55→22:28)
[2020-01-11 19:12] LABS: Bacteria 0 SEEN /hpf (None Seen); Mucous, Urine 0 SEEN /hpf (<or=2+); White Blood Cells 0 SEEN /hpf (0-5)
[2020-01-11 19:26] LABS: Color, Urine Yellow (Yellow); Glucose, Dipstick Normal (Normal); Ketone-Dipstick Negative (Negative); Leukocyte Esterase-Dipstick Negative /ul (Negative); Nitrite-Dipstick Negative (Negative); Occult Blood-Urine 250 /ul (Negative); Protein-Dipstick 30 mg/dl (Negative); Urine Bilirubin Dipstick Negative (Negative); Urine Clarity Sl. Cloudy (Clear); Urine Urobilinogen Normal (Normal)
[2020-01-11 19:36] LABS: Amorphous Sediment 1+ URATE; Red Blood Cells-Urine 25-50 SEEN /hpf (0-5); Squamous Epithelial Cells - UA 0-5 SEEN /hpf (0-5)
[2020-01-11] MEDS: 0.9% Normal Saline 1,000 ML 999 ML IV (19:40)
--- NOTE | 2020-01-11 19:57 | PCM.HP.STD ---
Problem List (1) Hydronephrosis Status: Acute Qualifiers: Hydronephrosis type: with ureteropelvic junction obstruction Qualified Code(s): Q62.11 - Congenital occlusion of ureteropelvic junction (2) Acute kidney injury Status: Acute (3) HLD (hyperlipidemia) Status: Chronic Qualifiers: Hyperlipidemia type: unspecified Qualified Code(s): E78.5 - Hyperlipidemia, unspecified (4) Hepatitis C antibody positive in blood Status: Chronic (5) Dysphagia Status: Chronic Qualifiers: Dysphagia type: unspecified Qualified Code(s): R13.10 - Dysphagia, unspecified (6) Malnutrition Status: Chronic Qualifiers: Malnutrition type: protein-calorie malnutrition (7) Anemia Status: Chronic Qualifiers: Anemia type: unspecified type Qualified Code(s): D64.9 - Anemia, unspecified (8) Lumbar foraminal stenosis Status: Chronic (9) Elevated liver enzymes Status: Chronic (10) Type 2 diabetes mellitus Status: Chronic Qualifiers: Diabetes mellitus residential insulin use: with residential use Diabetes mellitus complication status: with other specified complication Qualified Code(s): E11.69 - Type 2 diabetes mellitus with other specified complication; Z79.4 - [facility] (current) use of insulin (11) Chronic back pain Status: Chronic Qualifiers: Back pain location: back pain in unspecified location Back pain laterality: unspecified Qualified Code(s): M54.9 - Dorsalgia, unspecified; G89.29 - Other chronic pain (12) Hypertension Status: Chronic Qualifiers: Hypertension type: essential hypertension Qualified Code(s): I10 - Essential (primary) hypertension History of Present Illness Date of Admission: 01/11/20 Chief Complaint: left flank pain The patient is a 54 year old M with a significant history of a severe protein calorie malnutrition, hypertension; chronic back pain and diabetes mellitus who presented to emergency department with severe left flank pain developed after falling in the bathtub. Patient denies any dizziness prior to the fall. Patient refused to characterize his pain further. Associated with his symptoms is nausea and vomiting. Because patient vomited at the emergency department CT scan of his abdomen and pelvis was done. CT scan of the abdomen pelvis showed left hydronephrosis and left hydroureter; a stone was seen at the left UVJ. Past Medical History Past Medical History (Chronic Problems): Chronic Problems (Last Reviewed 01/12/20 @ 01:[address] Domenico De Anda MD) HLD (hyperlipidemia) (Chronic) Hepatitis C antibody positive in blood (Chronic) Dysphagia (Chronic) Malnutrition (Chronic) Anemia (Chronic) Lumbar foraminal stenosis (Chronic) Elevated liver enzymes (Chronic) Type 2 diabetes mellitus (Chronic) Chronic back pain (Chronic) Hypertension (Chronic) Medical History: Medical History (Last Reviewed 01/12/20 @ 01:[address] Domenico De Anda MD) Chronic back pain (Chronic) M54.9, G89.29 Hypertension (Chronic) I10 Ulcer of left great toe due to diabetes mellitus (Inactive) E11.621, L97.529 Allergies morphine Allergy (Verified 01/11/20 17:22) headaches pt states gets very bad headaches from morphine dicyclomine [From Bentyl] Adverse Reaction (Verified 01/11/20 17:22) Abd cramps/diarrhea fentanyl Adverse Reaction (Verified 01/11/20 17:22) Pt didn't like how it made him feel PT STATES HE DOES NOT LIKE HOW IT MAKES HIM FEEL. ketorolac [From Toradol] Adverse Reaction (Verified 01/11/20 17:22) real sluggish Home Medications: Ambulatory Orders Medication Instructions Recorded Insulin Glargine [Lantus SoloStar 16 units SUBCUT QHS 10/17/19 Pen] Insulin Lispro [Humalog KwikPen] 12 units SQ TID 10/17/19 Atorvastatin Calcium [Lipitor] 40 mg PO QHS 01/11/20 Lisinopril [Zestril] 5 mg PO DAILY 01/11/20 Surgical History: Surgical History (Last Reviewed 01/12/20 @ 01:[address] Domenico De Anda MD) History of appendectomy Z90.49 S/P laparoscopic cholecystectomy Z90.49 Surgical History: appendectomy, cholecystectomy, - Psychiatric History: No pertinent psych hx Smoking Status: Current every day smoker Tobacco Use: Cigars - *Family History Maternal Family History: Family History (Last Reviewed 01/12/20 @ 01:[address] Domenico De Anda MD) Father Diabetes Mother Diabetes History Items: Diabetes Paternal Family History: Family History (Last Reviewed 01/12/20 @ 01:[address] Domenico De Anda MD) Father Diabetes Mother Diabetes History Items: Heart Disease - CAD s/p CABG history. Patient notes that his paternal grandmother had diabetes. Review of Systems Constitutional: Denies: Chills, Fever, Weight Change HEENT: Denies: Head Aches, Sinus Congestion, Sinus Drainage Cardiovascular: Denies: Chest Pain, Palpitations Respiratory: Denies: Cough, Shortness of breath at rest, Sputum production Gastrointestinal: Reports: Nausea, Vomiting Genitourinary: Denies: Dysuria Musculoskeletal: Denies: Joint Pain, Joint Tenderness Skin: Denies: Rash, Wounds Neurological: Denies: Numbness, Tingling, Focal weakness Psychiatric: Denies: Anxiety, Depression, Homicidal Ideations, Suicidal Ideations Hematologic/ Lymphatic: Denies: Easy Bruising, Easy Bleeding VTE Information - Inpt Only VTE Present on Admission: No VTE Mechan Device Prophylaxis: SCD's, None VTE Pharm Prophylaxis ordered?: No Patient Problems: Active and Suspected Problems (Last Reviewed 01/12/20 @ 01:[address] Domenico De Anda MD) Hydronephrosis (Acute) - Physical Exam Vitals/I&O's: Vital Signs Temp Pulse Resp BP Pulse Ox 98.4 F 92 18 144/103 H 100 01/11/20 16:49 01/11/20 19:40 01/11/20 19:40 01/11/20 19:40 01/11/20 19:40 Oxygen Delivery Method Room Air Weight: 55.7 kg Body Mass Index (BMI) 15.7 Finger Stick Blood Glucose 364 General: Alert, Oriented x3, - - Cachectic HEENT: Atraumatic, PERRLA, EOMI, Normocephalic Neck: Supple, No JVD, Negative Carotid Bruits Lungs: Clear to auscultation, Normal air movement, No rhonchi, No wheeze, No rales Cardiovascular: Regular rate, No murmurs Abdomen: Bowel Sounds Present, Soft, Tender, - - Tender left CVA Extremities: No edema, Capillary Refill Less than 3 Seconds Skin: No rashes, No breakdown Musculoskeletal: No Tenderness to Palpation of Joints or Extremities Neurological: Cranial nerves II-XII grossly intact Psych/Mental Status: Normal Affect Laboratory Results 01/11/20 18:18: WBC 9.9, RBC 3.59 L, Hgb 11.4 L, Hct 33.7 L, MCV 93.9, MCH 31.8, MCHC 33.8, RDW Std Deviation 44.9 H, RDW Coeff of [place] 13.0, Plt Count 187, MPV 10.5, Immature Gran % (Auto) 1.000 H, Neut % (Auto) 66.3, Lymph % (Auto) 18.5 L, [place] % (Auto) 12.1 H, Eos % (Auto) 1.7, Baso % (Auto) 0.4, Absolute Neuts (auto) 6.5, Absolute Lymphs (auto) 1.83, Nucleated RBC % 0 01/11/20 18:18: Sodium 137, Potassium 4.0, Chloride 117 H, Carbon Dioxide 15.0 L, Anion Gap 5, BUN 31 H, Creatinine 3.04 H, Estim Creat Clear Calc 22.14, Est GFR (MDRD) Af Amer 28 L, Est GFR (MDRD) Non-Af 23 L, BUN/Creatinine Ratio 10.2, Glucose 141 H, Calcium 8.4 L 01/11/20 18:57: Urine Color Yellow, Urine Clarity Sl. Cloudy, Urine pH 5.0, Ur Specific [place] 1.020, Urine Protein 30 H, Urine Glucose (UA) Normal, Urine Ketones Negative, Urine Occult Blood 250 H, Urine Nitrite Negative, Urine Bilirubin Negative, Urine Urobilinogen Normal, Ur Leukocyte Esterase Negative, Urine RBC 25-50 SEEN, Urine WBC 0 SEEN, Ur Squamous Epith Cells 0-5 SEEN, Amorphous Sediment 1+ URATE, Urine Bacteria 0 SEEN, Urine Mucus 0 SEEN Current Medications Sodium Chloride () 1,000 mls @ 999 mls/hr IV .Q1H1M ONE Stop: 01/11/20 20:14 Last Admin: 01/11/20 19:40 Dose: 999 mls/hr Documented by: Assessment/Plan All Active Problems (Last Reviewed 01/12/20 @ 01:[address] Domenico De Anda MD) Hydronephrosis (Acute) Acute kidney injury (Acute) The patient is a 54 year old M with a significant history of a severe protein calorie malnutrition, hypertension; chronic back pain and diabetes mellitus who presented to emergency department with severe left flank pain developed after a falling in the bathtub and found to have left hydronephrosis and left hydroureter with a stone at the left UVJ. Left hydronephrosis and left hydroureter with a stone at the Left UVJ. Per emergency department doctor, urology recommends pain control and fluids. Urology will follow if consulted. Received normal saline bolus in the emergency department. Because of hyperchloremia we will initiate lactated Ringer's instead of normal saline at this time. Reportedly patient has headache to morphine. Dilaudid ordered. Clear liquids for now. N.p.o. after midnight. Urology consult. Diabetes mellitus Patient with hyperglycemia on presentation. Hold home basal and prandial insulin because patient will be n.p.o. Placed on Accu-Chek with correction scale insulin. VU Creatinine is 3.04. Baseline creatinine is around 1.29. VU secondary to intrinsic renal and post renal failure from hydronephrosis and kidney stone. IV fluids as above. Urology consult. Trend BMP. Avoid nephrotoxins. Hold home lisinopril. Bandemia Likely secondary reactive from hydronephrosis. Trend CBC. Severe protein calorie malnutrition On presentation patient's BMI was 16.1. Recommend diet supplements. Patient counseled. On clear liquid for now and will be n.p.o. after midnight for possible urological procedure.. Tobacco abuse Counseled DVT prophylaxis SCD. Inpatient E&M: 18341 Init Hosp L3
[2020-01-11] MEDS: 0.9% Normal Saline 1,000 ML 100 ML IV (21:41)
--- NOTE | 2020-01-11 21:59 | NURSING ---
Pt is uncooperative at times and gets frustrated asking admission questions. Goes off on tangents about his ailments and poor health. 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
[2020-01-11] MEDS: 0.9% Saline Lock 10 ML Syringe IV (22:29)
[2020-01-11] MEDS: Insulin Lispro 100 UNIT/ML INSULN.PEN SC (23:20)
[2020-01-11 23:56] LABS: Bedside Glucose 156 mg/dL (70-110)
[2020-01-12 01:22] VITALS: BP 125/111; PULSE 83; RESP 16; TEMP 36.8; O2SAT 100
[2020-01-12] MEDS: HYDROmorphone 0.5 MG/0.5 ML SYRINGE IV ×6 (01:23→23:22)
[2020-01-12] MEDS: Lactated Ringers 1,000 ML 100 ML IV (01:26)
[2020-01-12 05:52] VITALS: BP 135/81; PULSE 76; RESP 16; TEMP 36.7; O2SAT 100
[2020-01-12 06:32] LABS: Basophil# 0.03 X10^3/uL; Basophil% 0.4 % (0-1); Eosinophil# 0.14 X10^3/uL; Eosinophils% 1.7 % (0-5); Hematocrit 31.6 % (40-54); Hemoglobin 10.8 g/dL (13.0-16.5); Lymphocyte % 24.4 % (19-41); Mean Corp Hgb Conc 34.2 g/dL (32-36); Mean Corpuscular Hgb 32.2 pg (27.0-32.0); Mean Corpuscular Volume 94.3 fL (80-94); Mean Platelet Vol. 9.4 fl (6.2-12.0); Monocyte# 0.99 X10^3/uL; Monocyte% 12.1 % (0-10); NRBC Flagged by Analyzer 0 % (0-5); Neutrophil # 4.97 X10^3/uL (2.7-7.7); Neutrophil % 60.4 % (47-70); Platelet Count 178 K/mm3 (150-450); RBC Distribution Width CV 12.8 % (11.6-14.6); RBC Distribution Width SD 44.9 fl (35.1-43.9); Red Blood Count 3.35 M/mm3 (4.6-6.2); White Blood Count 8.2 K/mm3 (4.4-11.0)
[2020-01-12 06:54] LABS: Anion Gap 4 (5-15); BUN 31 mg/dL (7-18); BUN/Creat Ratio 10.1 RATIO (10-20); Chloride 122 mmol/L (98-107); Creatinine, Serum 3.07 mg/dL (0.70-1.30); EST Glomerular Filtration Rate 23 mL/min (>60); Est Glom Filt Rate - Afr Amer 28 mL/min (>60); Estimated Creatinine Clearance 22.36 ml/min; Glucose 85 mg/dL (74-106); Potassium 4.2 mmol/L (3.5-5.1); Sodium Level 142 mmol/L (136-145)
[2020-01-12 10:10] VITALS: BP 143/89; PULSE 78; RESP 18; TEMP 37; O2SAT 100
--- NOTE | 2020-01-12 11:25 | CASEMGMT ---
WOOD MCKEON Face to Face with patient for initial transition planning/care coordination assessment. WOOD MCKEON introduced self and role at [facility]. Patient lying in bed, alert and oriented. Patient willing to participate in assessment and is able to answer all questions appropriately. Care providers, pharmacy, and demographics verified. Patient wishes to discharge home, denies need for home health at this time. Patient states he has no further needs or concerns at this time. CM to follow for discharge planning needs that may arise. PCP: Paul list but states he does not want to go back to her. WOOD MCKEON provided list of PCPs Specialists: none Preferred Pharmacy: [facility] retail Insurance: [employer] Prescription Benefit: yes Living Will/HPOA: none LNOK: mother, but Living Arrangements: Patient lives alone in single story apartment, no steps to enter. Patient states he is independent and denies need for assistance. Transportation: Friend DME/HHC: Patient has BSC, cane, walker, rollator, glucometer, insulin, BP cuff. Patient has previously been to [facility]. Has had HHC in the past but denies need at this time as patient states they don't do anything for him. Disposition Plan: Patient to discharge home with family support and follow-up plans in place. [place] KAHN, RN, CM
[2020-01-12 11:26] LABS: Bedside Glucose 84 mg/dL (70-110)
[2020-01-12] MEDS: Acetaminophen 325 MG Tablet 650 MG PO (11:47)
[2020-01-12] MEDS: Dextrose 5%/0.9% NaCl 1,000 ML 100 ML IV (11:48)
[2020-01-12] MEDS: oxyCODONE 5 MG Tablet PO ×3 (11:48→22:15)
--- NOTE | 2020-01-12 11:53 | PN_ITS ---
Patient Problems: Active and Suspected Problems (Last Reviewed 01/12/20 @ 01:[address] Domenico De Anda MD) Hydronephrosis (Acute) Subjective: Patient seen and examined. He was admitted with a complaint of left flank pain after he fell in the bathtub. On admission, CAT scan showed mild left-sided hydronephrosis with a 4.2 mm stone of the left ureteropelvic junction. Patient seen and examined. He was lying comfortably in his bed on review of systems, first question patient asked me was if I would give him strong pain meds at discharge. I informed patient that he was not yet ready for discharge and so we could have that discussion when he was medically ready for discharge. I did however inform him that I would not write opiates for him. He still complained of left flank pain and said he could not describe the pain but only knew that he had pain. He denied any fever or chills, nausea vomiting or diarrhea. Review of stems otherwise negative. Labs and vitals reviewed. Creatinine is 3.07. He is hemodynamically stable. Bicarb is 16 and WBC is 8.2. Vitals/I&O's: Vital Signs Temp Pulse Resp BP Pulse Ox 98.6 F 78 18 143/89 H 100 01/12/20 10:10 01/12/20 10:10 01/12/20 10:10 01/12/20 10:10 01/12/20 10:10 Oxygen Delivery Method Room Air Weight: 125 lb 3.561 oz Body Mass Index (BMI) 16.0 Finger Stick Blood Glucose 364 Intake and Output for Last 24 Hours 01/10/20 01/11/20 01/12/20 23:59 23:59 23:59 Intake Total 1000 / 1100 1473.33 / 1473.33 Balance 1000 / 1100 1473.33 / 1473.33 General: Alert, Oriented x3, Cooperative, No apparent distress HEENT: Atraumatic, PERRLA, EOMI, Normocephalic Oral: Dry Mucosa Neck: Supple, No JVD, Negative Carotid Bruits Lungs: Clear to auscultation, Normal air movement, No rhonchi, No wheeze, No rales Cardiovascular: Regular rate, Regular Rhythm, Normal S1, Normal S2, No murmurs Abdomen: Bowel Sounds Present, Soft, Non Tender, - - mild left CV tenderness Extremities: No clubbing, No cyanosis, No edema, Capillary Refill Less than 3 Seconds Skin: No rashes, No breakdown Musculoskeletal: No Tenderness to Palpation of Joints or Extremities Lymphatic: No Cervical, Supraclavicular, or Inguinal Adenopathy Neurological: Cranial nerves II-XII grossly intact, Neuro grossly intact, Motor Exam 5/5 strength throughout Psych/Mental Status: Normal Affect, Appropriate, Alert and oriented to time, place, person, mood and affect Laboratory Results 01/11/20 18:18: WBC 9.9, RBC 3.59 L, Hgb 11.4 L, Hct 33.7 L, MCV 93.9, MCH 31.8, MCHC 33.8, RDW Std Deviation 44.9 H, RDW Coeff of [place] 13.0, Plt Count 187, MPV 10.5, Immature Gran % (Auto) 1.000 H, Neut % (Auto) 66.3, Lymph % (Auto) 18.5 L, [place] % (Auto) 12.1 H, Eos % (Auto) 1.7, Baso % (Auto) 0.4, Absolute Neuts (auto) 6.5, Absolute Lymphs (auto) 1.83, Nucleated RBC % 0 01/11/20 18:18: Sodium 137, Potassium 4.0, Chloride 117 H, Carbon Dioxide 15.0 L , Anion Gap 5, BUN 31 H, Creatinine 3.04 H, Estim Creat Clear Calc 22.14, Est GFR (MDRD) Af Amer 28 L, Est GFR (MDRD) Non-Af 23 L, BUN/Creatinine Ratio 10.2, Glucose 141 H, Calcium 8.4 L 01/11/20 18:57: Urine Color Yellow, Urine Clarity Sl. Cloudy, Urine pH 5.0, Ur Specific [place] 1.020, Urine Protein 30 H, Urine Glucose (UA) Normal, Urine Ketones Negative, Urine Occult Blood 250 H, Urine Nitrite Negative, Urine Bilirubin Negative, Urine Urobilinogen Normal, Ur Leukocyte Esterase Negative, Urine RBC 25-50 SEEN, Urine WBC 0 SEEN, Ur Squamous Epith Cells 0-5 SEEN, Amorphous Sediment 1+ URATE, Urine Bacteria 0 SEEN, Urine Mucus 0 SEEN 01/11/20 23:14: POC Glucose 156 H 01/12/20 06:05: WBC 8.2, RBC 3.35 L, Hgb 10.8 L, Hct 31.6 L, MCV 94.3 H, MCH 32.2 H, MCHC 34.2, RDW Std Deviation 44.9 H, RDW Coeff of [place] 12.8, Plt Count 178, MPV 9.4, Immature Gran % (Auto) 1.000 H, Neut % (Auto) 60.4, Lymph % (Auto) 24.4, [place] % (Auto) 12.1 H, Eos % (Auto) 1.7, Baso % (Auto) 0.4, Absolute Neuts (auto) 5.0, Absolute Lymphs (auto) 2.00, Nucleated RBC % 0 01/12/20 06:05: Sodium 142, Potassium 4.2, Chloride 122 H, Carbon Dioxide 16.0 L , Anion Gap 4 L, BUN 31 H, Creatinine 3.07 H, Estim Creat Clear Calc 22.36, Est GFR (MDRD) Af Amer 28 L, Est GFR (MDRD) Non-Af 23 L, BUN/Creatinine Ratio 10.1, Glucose 85, Calcium 8.0 L 01/12/20 11:22: POC Glucose 84 Diagnostic Data Abdomen/Pelvis CT 01/11/20 17:09 IMPRESSION: Left hydronephrosis and left hydroureter. Stone at the left UVJ as detailed above. Electronically Signed: Ajit Damon DO at 17:47 EDT Tel , Service support , Current Medications Acetaminophen (Tylenol) 650 mg PO Q6H PRN PRN PRN Reason: Pain Score 1-10/10 Last Admin: 01/12/20 11:47 Dose: 650 mg Documented by: Glucagon () 1 mg IM .X1 PRN PRN Reason: Hypoglycemia Hydralazine HCl (Apresoline Iv) 10 mg IV Q4H PRN PRN PRN Reason: SBP > 160 Hydromorphone HCl (Dilaudid Inj) 0.5 mg IV Q3H PRN PRN PRN Reason: Pain Score 6-10/10 Last Admin: 01/12/20 09:33 Dose: 0.5 mg Documented by: Dextrose (Dextrose 10%-Water) 250 mls @ 999 mls/hr IV .Q16M PRN; Protocol PRN Reason: HYPOGLYCEMIA Dextrose/Sodium Chloride (Dextrose 5%/0.9% Nacl) 1,000 mls @ 100 mls/hr IV .Q10H JANKI Last Admin: 01/12/20 11:48 Dose: 100 mls/hr Documented by: Insulin Human Lispro (Humalog Kwikpen (Bkc)) 0 unit SC Q6 JANKI; Protocol Last Admin: 01/12/20 05:57 Dose: Not Given Documented by: Melatonin (Melatonin) 3 mg PO QHS PRN PRN PRN Reason: INSOMNIA Ondansetron HCl (Zofran) 4 mg IV Q6H PRN PRN PRN Reason: NAUSEA/VOMITING Oxycodone HCl (Oxyir) 5 mg PO Q4H PRN PRN PRN Reason: Pain Score 1-10/10 Last Admin: 01/12/20 11:48 Dose: 5 mg Documented by: Prochlorperazine Edisylate (Compazine Iv) 5 mg IV Q4H PRN PRN PRN Reason: Breakthrough nausea/vomiting Sodium Chloride () 10 - 40 ml IV UD PRN PRN Reason: SALINE FLUSH Last Admin: 01/11/20 22:29 Dose: 10 ml Documented by: STROKE Vital Signs/Narrative: Vital Signs Temp Pulse Resp BP Pulse Ox 01/12/20 10:10 98.6 F 78 18 143/89 H 100 Medical Necessity - Tobacco Use Smoking Status: Current some day smoker Tobacco Use: Cigars Assessment/Plan All Active Problems (Last Reviewed 01/12/20 @ 01:[address] Domenico De Anda MD) Hydronephrosis (Acute) Acute kidney injury (Acute) 1. Left hydroureteronephrosis with left kidneys tone * admitted with left flank pain, which is still present. * urology reviewed patient today and advocate conservative management * CT of the abdomen and pelvis: 4.2mm stone at left UVJ, with left hydronephrosis and hydroureter * continue gentle hydration with IVF * 2. VU: * Cr was 3.04 on admission, now 3.07 today. * Continue gentle hydration with IVF. * Will check FeNA. * Likely due to left hydrorureteronephrosis. * if Cr doesnt trend down further, will consult nephrology * 3.Nonanion gap acidosis * bicarb is 16 today, with anion gap of 4. Likely due to VU * will continue hydration and monitor * 4. Type 2 diabetes mellitus: * on ISS. * Accuchecks ACHS. * home insulin of 16 units of lantus and lispro 12units TID on hold * 5. Hypertension: lisinopril on hold o/a of VU. IV hydralazine prn 6. Severe protein calorie malnutrition: BMI 716. Nutrition consulted. DVT prophylaxis: SCDs Inpatient E&M: 01332 Subs Hosp L3
[2020-01-12 13:16] LABS: Urine Sodium 97 mmol/L (Not Establ.)
--- NOTE | 2020-01-12 14:44 | CHAPLAIN ---
Type of Pastoral Visit _x__ Initial Visit ___ Follow-up Visit ___ On-call Visit ___ General Patient Visit ___ Spiritual Assessment ___ Family Conference ___ Bereavement ___ Rapid Response ___ Code Blue ___ Other (describe below) Pastoral Care Referral From _x__ Patient ___ Family ___ Nurse ___ Physician ___ Crime Investigator Special Agent ___ Vehicle Technician ___ Other (describe below) Sacrament/Intervention _x__ Active listening ___ Anointing ___ Baptist ___ Bereavement ___ Communion _x__ Radha exploration ___ ___ Life review _x__ Prayer ___ Reconciliation ___ Sacrament of Sick _x__ Supportive presence ___ Wedding ___ Other (describe below) Pastoral Comments Patient requested a Bible and request was completed
[2020-01-12 15:04] VITALS: BP 142/91; PULSE 76; RESP 18; TEMP 36.8; O2SAT 100
[2020-01-12] MEDS: 0.9% Saline Lock 10 ML Syringe IV ×2 (15:55→19:20)
[2020-01-12] MEDS: Lactated Ringers 1,000 ML 150 ML IV ×2 (17:13→23:56)
[2020-01-12 17:15] LABS: Bedside Glucose 102 mg/dL (70-110)
[2020-01-12] MEDS: MELATONIN 3 MG TABLET PO (22:09)
[2020-01-12 22:29] VITALS: BP 153/108; PULSE 80; RESP 16; TEMP 36.6; O2SAT 100
[2020-01-12 22:40] VITALS: PULSE 83; RESP 16; O2SAT 100
[2020-01-12 23:41] LABS: Bedside Glucose 95 mg/dL (70-110)
[2020-01-13 00:35] LABS: Bedside Glucose 119 mg/dL (70-110)
[2020-01-13] MEDS: oxyCODONE 5 MG Tablet PO ×2 (02:17→07:07)
[2020-01-13 03:34] VITALS: BP 143/91; PULSE 73; RESP 16; TEMP 36.6; O2SAT 100
[2020-01-13] MEDS: HYDROmorphone 0.5 MG/0.5 ML SYRINGE IV ×7 (03:36→23:58)
[2020-01-13 06:20] LABS: Bedside Glucose 83 mg/dL (70-110)
[2020-01-13 07:05] LABS: Absolute Lymphocyte Count 2.04 X10^3/uL (0.83-4.51); Absolute Neutrophil Count 5.4 X10^3/uL (2.0-7.7); Basophil# 0.03 X10^3/uL; Basophil% 0.3 % (0-1); Eosinophil# 0.15 X10^3/uL; Eosinophils% 1.7 % (0-5); Hematocrit 28.8 % (40-54); Hemoglobin 9.7 g/dL (13.0-16.5); Lymphocyte # 2.04 X10^3/ul (4.0); Lymphocyte % 23.4 % (19-41); Mean Corp Hgb Conc 33.7 g/dL (32-36); Mean Corpuscular Hgb 31.9 pg (27.0-32.0); Mean Corpuscular Volume 94.7 fL (80-94); Mean Platelet Vol. 9.5 fl (6.2-12.0); Monocyte# 1.05 X10^3/uL; Monocyte% 12.1 % (0-10); NRBC Flagged by Analyzer 0 % (0-5); Neutrophil # 5.37 X10^3/uL (2.7-7.7); Neutrophil % 61.7 % (47-70); Platelet Count 160 K/mm3 (150-450); RBC Distribution Width CV 13.2 % (11.6-14.6); RBC Distribution Width SD 45.3 fl (35.1-43.9); Red Blood Count 3.04 M/mm3 (4.6-6.2); White Blood Count 8.7 K/mm3 (4.4-11.0)
[2020-01-13] MEDS: 0.9% Saline Lock 10 ML Syringe IV ×7 (07:08→23:58)
[2020-01-13 07:42] LABS: Anion Gap 7 (5-15); BUN 33 mg/dL (7-18); BUN/Creat Ratio 10.5 RATIO (10-20); Calcium,Total 7.8 mg/dL (8.5-10.1); Chloride 116 mmol/L (98-107); Creatinine, Serum 3.15 mg/dL (0.70-1.30); EST Glomerular Filtration Rate 22 mL/min (>60); Est Glom Filt Rate - Afr Amer 27 mL/min (>60); Estimated Creatinine Clearance 21.79 ml/min; Glucose 86 mg/dL (74-106); Potassium 4.6 mmol/L (3.5-5.1); Sodium Level 139 mmol/L (136-145)
--- NOTE | 2020-01-13 08:13 | PCM.CONS.U ---
Problem List (1) Hydronephrosis Status: Acute Qualifiers: Hydronephrosis type: with ureteral calculous obstruction Qualified Code(s): N13.2 - Hydronephrosis with renal and ureteral calculous obstruction Comment: at UVJ 4mm stone Reason for Consult Date of Consultation: 01/12/20 Reason for Consultation: ureteral calculi History of Present Illness: The patient is a 54 year old Male with a 4mm stone at UVJ CT scan reviewed, also with CRI cr 3.15 - multifactorial very likely to pass stone. Past Medical History Past Medical History (Chronic Problems): Chronic Problems (Last Reviewed 01/12/20 @ 01:[address] Domenico De Anda MD) HLD (hyperlipidemia) (Chronic) Hepatitis C antibody positive in blood (Chronic) Dysphagia (Chronic) Malnutrition (Chronic) Anemia (Chronic) Lumbar foraminal stenosis (Chronic) Elevated liver enzymes (Chronic) Type 2 diabetes mellitus (Chronic) Chronic back pain (Chronic) Hypertension (Chronic) Medical History: Medical History (Last Reviewed 01/12/20 @ 01:[address] Domenico De Anda MD) Chronic back pain (Chronic) M54.9, G89.29 Hypertension (Chronic) I10 Ulcer of left great toe due to diabetes mellitus (Inactive) E11.621, L97.529 Allergies morphine Allergy (Verified 01/11/20 17:22) headaches pt states gets very bad headaches from morphine dicyclomine [From Bentyl] Adverse Reaction (Verified 01/11/20 17:22) Abd cramps/diarrhea fentanyl Adverse Reaction (Verified 01/11/20 17:22) Pt didn't like how it made him feel PT STATES HE DOES NOT LIKE HOW IT MAKES HIM FEEL. ketorolac [From Toradol] Adverse Reaction (Verified 01/11/20 17:22) real sluggish Home Medications: Ambulatory Orders Medication Instructions Recorded Insulin Glargine [Lantus SoloStar 16 units SUBCUT QHS 10/17/19 Pen] Insulin Lispro [Humalog KwikPen] 12 units SQ TID 10/17/19 Atorvastatin Calcium [Lipitor] 40 mg PO QHS 01/11/20 Lisinopril [Zestril] 5 mg PO DAILY 01/11/20 Surgical History: Surgical History (Last Reviewed 01/12/20 @ 01:[address] Domenico De Anda MD) History of appendectomy Z90.49 S/P laparoscopic cholecystectomy Z90.49 Surgical History: appendectomy, cholecystectomy, - Psychiatric History: No pertinent psych hx Smoking Status: Current some day smoker Tobacco Use: Cigars - *Family History Maternal Family History: Family History (Last Reviewed 01/12/20 @ 01:[address] Domenico De Anda MD) Father Diabetes Mother Diabetes History Items: Diabetes Paternal Family History: Family History (Last Reviewed 01/12/20 @ 01:[address] Domenico De Anda MD) Father Diabetes Mother Diabetes History Items: Heart Disease - CAD s/p CABG history. Patient notes that his paternal grandmother had diabetes. Physical Exam - Physical Exam Vital Signs Temp 98 F 01/13/20 03:34 Pulse 73 01/13/20 03:34 Resp 16 01/13/20 03:34 BP 143/91 H 01/13/20 03:34 Pulse Ox 100 01/13/20 03:34 Intake & Output 01/11/20 01/12/20 01/13/20 23:59 23:59 23:59 Intake Total 1000 / 1100 3553.33 / 3553.33 1480 / 1480 Output Total 500 / 500 125 / 125 Balance 1000 / 1100 3053.33 / 3053.33 1355 / 1355 Weight: 56.8 kg 56.8 kg Intake: Oral 640 / 640 480 / 480 Intake, IV Amount 1000 / 1000 2913.33 / 2913.33 1000 / 1000 0.9% Normal Saline 1,000 ML @ 373.33 / 373.33 100 mls/hr IV .Q10H JANKI Rx#: [id number] 0.9% Normal Saline 1,000 ML @ 1000 / 1000 999 mls/hr IV .Q1H1M ONE Rx#: [id number] Dextrose 5%/0.9% NaCl 1,000 ML 540 / 540 @ 100 mls/hr IV .Q10H JANKI Rx#: [id number] Lactated Ringers 1,000 ML @ 100 1000 / 1000 mls/hr IV .Q10H JANKI Rx#: [id number] Lactated Ringers 1,000 ML @ 150 1000 / 1000 1000 / 1000 mls/hr IV .Q6H40M JANKI Rx#: [id number] Output: Urine 500 / 500 125 / 125 Other: Number of Voids 1 Number of Bowel Movements 1 Laboratory Tests Past 24 Hrs 01/12/20 01/12/20 01/13/20 12:45 12:45 06:30 WBC 8.7 RBC 3.04 L Hgb 9.7 L Hct 28.8 L MCV 94.7 H MCH 31.9 MCHC 33.7 RDW Std Deviation 45.3 H RDW Coeff of Glen 13.2 Plt Count 160 MPV 9.5 Immature Gran % (Auto) 0.800 Neut % (Auto) 61.7 Lymph % (Auto) 23.4 Christian % (Auto) 12.1 H Eos % (Auto) 1.7 Baso % (Auto) 0.3 Absolute Neuts (auto) 5.4 Absolute Lymphs (auto) 2.04 Nucleated RBC % 0 Sodium Potassium Chloride Carbon Dioxide Anion Gap BUN Creatinine Estim Creat Clear Calc Est GFR (MDRD) Af Amer Est GFR (MDRD) Non-Af BUN/Creatinine Ratio Glucose Calcium Ur Random Sodium 97 Urine Creatinine 74.30 01/13/20 06:30 WBC RBC Hgb Hct MCV MCH MCHC RDW Std Deviation RDW Coeff of Glen Plt Count MPV Immature Gran % (Auto) Neut % (Auto) Lymph % (Auto) Christian % (Auto) Eos % (Auto) Baso % (Auto) Absolute Neuts (auto) Absolute Lymphs (auto) Nucleated RBC % Sodium 139 Potassium 4.6 Chloride 116 H Carbon Dioxide 16.0 L Anion Gap 7 BUN 33 H Creatinine 3.15 H Estim Creat Clear Calc 21.79 Est GFR (MDRD) Af Amer 27 L Est GFR (MDRD) Non-Af 22 L BUN/Creatinine Ratio 10.5 Glucose 86 Calcium 7.8 L Ur Random Sodium Urine Creatinine Assessment/Plan All Active Problems (Last Reviewed 01/12/20 @ 01:[address] Domenico De Anda MD) Hydronephrosis (Acute) Acute kidney injury (Acute) Chart and CT scan reveiwed. I think its very likely that he will pass this stone but if pain continues and he failes to pass the stone after conservative measures about 36 hours? then would repeat ct scan and offer procedure if stone has not passed and if renal function does not improve - stent placement if cannot pass stone. Will follow, call me with questions.
[2020-01-13 08:16] VITALS: BP 139/84; PULSE 76; RESP 18; TEMP 36.4; O2SAT 100
--- NOTE | 2020-01-13 10:50 | PCM.PROGNOTE ---
Patient Problems: Active and Suspected Problems (Last Reviewed 01/12/20 @ 01:[address] Domenico De Anda MD) Hydronephrosis (Acute) at UVJ 4mm stone Subjective: Chief complaint: Follow-up after admission for left UVJ stone, left hydronephrosis and left hydroureter, acute kidney injury. Patient seen and examined. No acute events overnight. Patient still complaining of left flank pain and requesting pain medication every 3 hours as scheduled. He is upset because he was informed that he will not be able to have any pain medication upon discharge which is probably true. Denied nausea or vomiting. He is urinating, urine output is reasonable. His vital signs are stable. - Physical Exam Vitals/I&O's: Vital Signs Temp Pulse Resp BP Pulse Ox 97.5 F L 76 18 139/84 H 100 01/13/20 08:16 01/13/20 08:16 01/13/20 08:16 01/13/20 08:16 01/13/20 08:16 Oxygen Delivery Method Room Air Weight: 125 lb 3.561 oz Body Mass Index (BMI) 16.0 Finger Stick Blood Glucose 364 Intake and Output for Last 24 Hours 01/11/20 01/12/20 01/13/20 23:59 23:59 23:59 Intake Total 1000 / 1100 3553.33 / 3553.33 1480 / 1480 Output Total 500 / 500 125 / 125 Balance 1000 / 1100 3053.33 / 3053.33 1355 / 1355 General: Alert, Oriented x3, Cooperative, No apparent distress HEENT: Atraumatic, PERRLA, EOMI, Normocephalic Oral: Moist Mucosa, No Gingival or Mucosal Lesions/ Ulcerations Neck: Supple, No JVD, Negative Carotid Bruits, Trachea Midline, Thyroid Normal Size and Texture Lungs: Clear to auscultation, Normal air movement, No rhonchi, No wheeze, No rales Cardiovascular: Regular rate, Regular Rhythm, Normal S1, Normal S2, PMI Normal Abdomen: Bowel Sounds Present, Soft, Non Tender, Non-Distended, No Hepato-splenomegaly Extremities: No clubbing, No cyanosis, No edema Skin: No rashes, No breakdown Lymphatic: No Cervical, Supraclavicular, or Inguinal Adenopathy Neurological: Cranial nerves II-XII grossly intact, Neuro grossly intact Psych/Mental Status: Normal Affect, Appropriate, Alert and oriented to time, place, person, mood and affect Laboratory Results 01/12/20 05:55: POC Glucose 102 01/12/20 11:22: POC Glucose 84 01/12/20 12:45: Urine Creatinine 74.30 01/12/20 12:45: Ur Random Sodium 97 01/12/20 17:11: POC Glucose 119 H 01/12/20 23:31: POC Glucose 95 01/13/20 06:15: POC Glucose 83 01/13/20 06:30: WBC 8.7, RBC 3.04 L, Hgb 9.7 L, Hct 28.8 L, MCV 94.7 H, MCH 31.9, MCHC 33.7, RDW Std Deviation 45.3 H, RDW Coeff of Glen 13.2, Plt Count 160, MPV 9.5, Immature Gran % (Auto) 0.800, Neut % (Auto) 61.7, Lymph % (Auto) 23.4, [place] % (Auto) 12.1 H, Eos % (Auto) 1.7, Baso % (Auto) 0.3, Absolute Neuts (auto) 5.4, Absolute Lymphs (auto) 2.04, Nucleated RBC % 0 01/13/20 06:30: Sodium 139, Potassium 4.6, Chloride 116 H, Carbon Dioxide 16.0 L, Anion Gap 7, BUN 33 H, Creatinine 3.15 H, Estim Creat Clear Calc 21.79, Est GFR (MDRD) Af Amer 27 L, Est GFR (MDRD) Non-Af 22 L, BUN/Creatinine Ratio 10.5, Glucose 86, Calcium 7.8 L Clinical Impression(s) from Imaging Studies Abdomen/Pelvis CT 01/11/20 17:09 IMPRESSION: Left hydronephrosis and left hydroureter. Stone at the left UVJ as detailed above. Electronically Signed: Ajit Damon DO at 17:47 EDT Tel , Service support , Current Medications Acetaminophen (Tylenol) 650 mg PO Q6H PRN PRN PRN Reason: Pain Score 1-08/03 Last Admin: 01/12/20 11:47 Dose: 650 mg Documented by: Glucagon () 1 mg IM .X1 PRN PRN Reason: Hypoglycemia Hydralazine HCl (Apresoline Iv) 10 mg IV Q4H PRN PRN PRN Reason: SBP > 160 Hydromorphone HCl (Dilaudid Inj) 0.5 mg IV Q3H PRN PRN PRN Reason: Pain Score 6-10/10 Last Admin: 01/13/20 08:15 Dose: 0.5 mg Documented by: Dextrose (Dextrose 10%-Water) 250 mls @ 999 mls/hr IV .Q16M PRN; Protocol PRN Reason: HYPOGLYCEMIA Sodium Chloride () 1,000 mls @ 100 mls/hr IV .Q10H JANKI Insulin Human Lispro (Humalog Kwikpen (Bkc)) 0 unit SC Q6 JANKI; Protocol Last Admin: 01/13/20 06:15 Dose: Not Given Documented by: Melatonin (Melatonin) 3 mg PO QHS PRN PRN PRN Reason: INSOMNIA Last Admin: 01/12/20 22:09 Dose: 3 mg Documented by: Ondansetron HCl (Zofran) 4 mg IV Q6H PRN PRN PRN Reason: NAUSEA/VOMITING Prochlorperazine Edisylate (Compazine Iv) 5 mg IV Q4H PRN PRN PRN Reason: Breakthrough nausea/vomiting Sodium Chloride () 10 - 40 ml IV UD PRN PRN Reason: SALINE FLUSH Last Admin: 01/13/20 08:15 Dose: 10 ml Documented by: Medical Necessity - Tobacco Use Smoking Status: Current some day smoker Tobacco Use: Cigars Assessment/Plan All Active Problems (Last Reviewed 01/12/20 @ 01:[address] Domenico De Anda MD) Hydronephrosis (Acute) Acute kidney injury (Acute) This is a 53 years old male patient presented to the emergency room because of left flank pain developed after falling into the bathtub, found to have left UVJ stone with left hydronephrosis and left hydroureter complicated by acute kidney injury. #1 left UVJ stone/left hydronephrosis/left hydroureter: CT scan abdomen and pelvis reviewed. Revealed 4 mm left UVJ stone with hydronephrosis and hydroureter. Kidney function did not improve. He is off IV fluids at this time. Urology consulted, recommended conservative treatment for now unless kidney function did not improve then he may need ureteral stent placement. Patient was asking for IV pain medications consistently. Plan: Restart IV fluids at 100 cc/h normal saline, discontinue OxyIR, continue IV Dilaudid, repeat BMP tomorrow morning. #2 acute kidney injury: Secondary to #1. Baseline kidney function is normal. Baseline kidney function is normal. Admission creatinine was 3.04, it is 3.15 today, slightly up. Plan as above, continue IV fluids, repeat BMP tomorrow morning, may need to repeat CAT scan abdomen if kidney function did not improve. #3 type 2 diabetes mellitus: Blood sugar has been stable. He is only on sliding scale. Lantus and Humalog on hold. #4 hypertension: Blood pressure stable, continue IV hydralazine PRN. Lisinopril held because of acute kidney injury. #5 chronic pain syndrome/chronic lumbar back pain/stenosis/radiculopathy: Patient has been asking for pain medications [id number]. He is worried about going home without the medications. He is to see pain management doctor as outpatient. At this time, he is on IV Dilaudid, mentioned that OxyIR does not work for him which will be discontinued. #6 hyperlipidemia: Hold statins. #7 severe protein calorie malnutrition: Patient is very cachectic. Consult nutrition. #8 chronic anemia: Baseline hemoglobin is been around 8 to 12 g/dL, today's hemoglobin is 9.7, stable at baseline. No evidence of active bleeding. #9 DVT prophylaxis: Low risk patient, ambulate. This note was generated with [employer] dictation software. It may contain incorrect words, spelling, and punctuation that were not noted in checking the note before signing. Inpatient E&M: 55650 Subs Hosp L2
[2020-01-13] MEDS: 0.9% Normal Saline 1,000 ML 100 ML IV ×2 (11:21→20:48)
[2020-01-13 11:40] LABS: Bedside Glucose 117 mg/dL (70-110)
[2020-01-13] MEDS: Ondansetron 4 MG/2 ML Vial IV (13:38)
[2020-01-13 14:35] VITALS: BP 164/93; PULSE 79; RESP 18; TEMP 36.8; O2SAT 100
[2020-01-13 15:24] VITALS: BP 148/95; PULSE 76; RESP 18; TEMP 36.8; O2SAT 100
[2020-01-13 17:11] LABS: Bedside Glucose 121 mg/dL (70-110)
[2020-01-13] MEDS: proCHLORPERazine 10 MG/2 ML Vial 5 MG IV (18:57)
[2020-01-13 21:25] VITALS: BP 141/82; PULSE 83; RESP 18; TEMP 36.9; O2SAT 98
[2020-01-14 00:11] LABS: Bedside Glucose 120 mg/dL (70-110)
[2020-01-14 02:30] VITALS: BP 133/78; PULSE 85; RESP 18; TEMP 36.8; O2SAT 100
[2020-01-14] MEDS: 0.9% Saline Lock 10 ML Syringe IV ×4 (03:32→12:51)
[2020-01-14] MEDS: HYDROmorphone 0.5 MG/0.5 ML SYRINGE IV ×7 (03:33→22:31)
[2020-01-14 06:42] LABS: Hematocrit 27.4 % (40-54); Hemoglobin 9.3 g/dL (13.0-16.5)
[2020-01-14] MEDS: 0.9% Normal Saline 1,000 ML 100 ML IV (06:46)
[2020-01-14 06:55] LABS: Bedside Glucose 83 mg/dL (70-110)
[2020-01-14 07:02] LABS: Anion Gap 6 (5-15); BUN 32 mg/dL (7-18); BUN/Creat Ratio 9.6 RATIO (10-20); Calcium,Total 7.7 mg/dL (8.5-10.1); Chloride 119 mmol/L (98-107); Creatinine, Serum 3.35 mg/dL (0.70-1.30); EST Glomerular Filtration Rate 21 mL/min (>60); Est Glom Filt Rate - Afr Amer 25 mL/min (>60); Estimated Creatinine Clearance 20.49 ml/min; Glucose 92 mg/dL (74-106); Potassium 4.6 mmol/L (3.5-5.1); Sodium Level 140 mmol/L (136-145)
--- NOTE | 2020-01-14 08:08 | PN_ITS ---
Patient Problems: Active and Suspected Problems (Last Reviewed 01/12/20 @ 01:[address] Domenico De Anda MD) Hydronephrosis (Acute) at UVJ 4mm stone Subjective: Chief complaint: Follow-up after admission for left UVJ stone, left hydronephrosis, left hydroureter and acute kidney injury. Patient seen and examined. No acute events overnight. He is still complaining of left flank pain, urine output is reasonable. Kidney function has been worsening. Vital signs are stable. - Physical Exam Vitals/I&O's: Vital Signs Temp Pulse Resp BP Pulse Ox 98.2 F 85 18 133/78 H 100 01/14/20 02:30 01/14/20 02:30 01/14/20 02:30 01/14/20 02:30 01/14/20 02:30 Oxygen Delivery Method Room Air Weight: 125 lb 3.561 oz Body Mass Index (BMI) 16.0 Finger Stick Blood Glucose 364 Intake and Output for Last 24 Hours 01/12/20 01/13/20 01/14/20 23:59 23:59 23:59 Intake Total 3553.33 / 3553.33 3185 / 3545 1596.67 / 1596.67 Output Total 500 / 500 625 / 1150 675 / 675 Balance 3053.33 / 3053.33 2560 / 2395 921.67 / 921.67 General: Alert, Oriented x3, Cooperative, No apparent distress, - - Cachectic. HEENT: Atraumatic, PERRLA, EOMI, Normocephalic Oral: Moist Mucosa, No Gingival or Mucosal Lesions/ Ulcerations Neck: Supple, No JVD, Negative Carotid Bruits, Trachea Midline, Thyroid Normal Size and Texture Lungs: Clear to auscultation, Normal air movement, No rhonchi, No wheeze, No rales, Diminished Cardiovascular: Regular rate, Regular Rhythm, Normal S1, Normal S2, PMI Normal Abdomen: Bowel Sounds Present, Soft, Non Tender, Non-Distended, No Hepato- splenomegaly Extremities: No clubbing, No cyanosis, No edema Skin: No rashes, No breakdown Lymphatic: No Cervical, Supraclavicular, or Inguinal Adenopathy Neurological: Cranial nerves II-XII grossly intact, Neuro grossly intact Psych/Mental Status: Normal Affect, Appropriate, Alert and oriented to time, place, person, mood and affect Laboratory Results 01/13/20 11:25: POC Glucose 117 H 01/13/20 17:03: POC Glucose 121 H 01/13/20 23:57: POC Glucose 120 H 01/14/20 06:02: Hgb 9.3 L, Hct 27.4 L 01/14/20 06:02: Sodium 140, Potassium 4.6, Chloride 119 H, Carbon Dioxide 15.0 L , Anion Gap 6, BUN 32 H, Creatinine 3.35 H, Estim Creat Clear Calc 20.49, Est GFR (MDRD) Af Amer 25 L, Est GFR (MDRD) Non-Af 21 L, BUN/Creatinine Ratio 9.6 L, Glucose 92, Calcium 7.7 L 01/14/20 06:40: POC Glucose 83 Current Medications Acetaminophen (Tylenol) 650 mg PO Q6H PRN PRN PRN Reason: Pain Score 1-10/10 Last Admin: 01/12/20 11:47 Dose: 650 mg Documented by: Glucagon () 1 mg IM .X1 PRN PRN Reason: Hypoglycemia Hydralazine HCl (Apresoline Iv) 10 mg IV Q4H PRN PRN PRN Reason: SBP > 160 Hydromorphone HCl (Dilaudid Inj) 0.5 mg IV Q3H PRN PRN PRN Reason: Pain Score 6-10/10 Last Admin: 01/14/20 06:41 Dose: 0.5 mg Documented by: Dextrose (Dextrose 10%-Water) 250 mls @ 999 mls/hr IV .Q16M PRN; Protocol PRN Reason: HYPOGLYCEMIA Sodium Chloride () 1,000 mls @ 100 mls/hr IV .Q10H JANKI Last Admin: 01/14/20 06:46 Dose: 100 mls/hr Documented by: Insulin Human Lispro (Humalog Kwikpen (Bkc)) 0 unit SC Q6 JANKI; Protocol Last Admin: 01/14/20 06:43 Dose: Not Given Documented by: Melatonin (Melatonin) 3 mg PO QHS PRN PRN PRN Reason: INSOMNIA Last Admin: 01/12/20 22:09 Dose: 3 mg Documented by: Ondansetron HCl (Zofran) 4 mg IV Q6H PRN PRN PRN Reason: NAUSEA/VOMITING Last Admin: 01/13/20 13:38 Dose: 4 mg Documented by: Prochlorperazine Edisylate (Compazine Iv) 5 mg IV Q4H PRN PRN PRN Reason: Breakthrough nausea/vomiting Last Admin: 01/13/20 18:57 Dose: 5 mg Documented by: Sodium Chloride () 10 - 40 ml IV UD PRN PRN Reason: SALINE FLUSH Last Admin: 01/14/20 06:40 Dose: 10 ml Documented by: Medical Necessity - Tobacco Use Smoking Status: Current some day smoker Tobacco Use: Cigars Assessment/Plan All Active Problems (Last Reviewed 01/12/20 @ 01:[address] Domenico De Anda MD) Hydronephrosis (Acute) Acute kidney injury (Acute) This is a 53 years old male patient presented to the emergency room because of left flank pain developed after falling into the bathtub, found to have left UVJ stone with left hydronephrosis and left hydroureter complicated by acute kidney injury. #1 left UVJ stone/left hydronephrosis/left hydroureter: He is on IV fluids and IV Dilaudid for pain. Vital signs are stable, still symptomatic with left flank pain. CT scan abdomen and pelvis reviewed. Revealed 4 mm left UVJ stone with hydronephrosis and hydroureter. Serum creatinine is trending up although patient still having good urine output. Urology on the case. Plan to notify urology about worsening kidney function and patient may need to go for ureteral stent placement. #2 acute kidney injury: Secondary to #1. Baseline kidney function is normal. H e has been on IV fluids, serum creatinine today is 3.35, it is trending up, no improvement. Plan as above. #3 type 2 diabetes mellitus: Blood sugar has been stable. He is only on sliding scale. Lantus and Humalog on hold. #4 hypertension: Blood pressure stable, continue IV hydralazine PRN. Lisinopril held because of acute kidney injury. #5 chronic pain syndrome/chronic lumbar back pain/stenosis/radiculopathy: Stable, no complaint this morning. He is on IV Dilaudid PRN. #6 hyperlipidemia: Hold statins. #7 severe protein calorie malnutrition: Patient is very cachectic. Nutrition consulted. #8 chronic anemia: Baseline hemoglobin is been around 8 to 12 g/dL, today's hemoglobin is 9.3, stable at baseline. No evidence of active bleeding. #9 DVT prophylaxis: Low risk patient, ambulate. This note was generated with [employer] dictation software. It may contain incorrect words, spelling, and punctuation that were not noted in checking the note before signing. Inpatient E&M: 68372 Subs Hosp L2
--- NOTE | 2020-01-14 09:00 | CT_ITS ---
STUDY: CT ABDOMEN AND PELVIS WITHOUT CONTRAST REASON FOR EXAM: Male, 54 years old. LT SIDED FLANK PAIN RADIATION DOSAGE (If Supplied By Facility): CTDIvol = ( 6.05 ) mGy, DLP = ( 299.20 ) mGycm TECHNIQUE: Transaxial images were obtained from the dome of the diaphragm to the symphysis pubis without oral contrast, and without intravenous contrast. Sagittal and coronal images were reconstructed. Individualized dose optimization techniques were used for this CT. COMPARISON: January 11, 2020 FINDINGS: The visualized lung bases are unremarkable. The visualized portions of the heart are within normal limits. Normal liver. Nonvisualization of the gallbladder. No significant dilatation of the extrahepatic biliary system. Normal spleen. Normal pancreas. Normal bilateral adrenal glands. Normal right kidney. Stable hydronephrosis of the left kidney and mild left hydroureter. Possible 3 mm lower pole left renal stone. Mild left perinephric stranding. Left ureter is difficult to follow. Normal visualized stomach. Normal small intestine. Normal colon. The appendix is not visualized. Evaluation of the GI tract is limited without oral contrast opacification. Mildly calcified abdominal aorta. Normal inferior vena cava. Normal retroperitoneum. 3 mm stone likely in the intramural segment of the left UVJ in the urinary bladder. Normal abdominal wall. Normal osseous structures. CT/Abdomen/Pelvis without Cont IMPRESSION: Relatively stable left hydronephrosis and hydroureter. Stable probable stone at the left UVJ. Possible nonobstructing lower pole left renal calculus. Electronically Signed: Gentry Sotelo DO at 10:50 EDT Tel [phone], Service support ,
[2020-01-14 09:38] VITALS: BP 138/90; PULSE 81; RESP 18; TEMP 36.3; O2SAT 99
--- NOTE | 2020-01-14 10:34 | PCM.CONS.B ---
Problem List (1) Hydronephrosis Status: Acute Qualifiers: Hydronephrosis type: with ureteral calculous obstruction Qualified Code(s): N13.2 - Hydronephrosis with renal and ureteral calculous obstruction Comment: at UVJ 4mm stone - Consult Date of Consult: 01/14/20 - Reason for Consult 54 yo male with distal left ureteral calculus repeat ct scan still shows stone in distal ureter on the left will add no tomorrow for cysto and extraction of stone possible stent npo at midnight. consent.
[2020-01-14 12:56] LABS: Bedside Glucose 122 mg/dL (70-110)
[2020-01-14 14:36] VITALS: BP 154/94; PULSE 80; RESP 16; TEMP 36.6; O2SAT 100; BMI 17.5
[2020-01-14 15:38] VITALS: BP 157/99; PULSE 81; RESP 18; TEMP 36.8; O2SAT 100
[2020-01-14 17:30] LABS: Bedside Glucose 115 mg/dL (70-110)
[2020-01-14] MEDS: 0.9% Normal Saline 1,000 ML 75 ML IV (19:20)
[2020-01-14 21:38] VITALS: BP 157/100; PULSE 94; RESP 18; TEMP 36.5; O2SAT 100
[2020-01-14 22:50] LABS: Bedside Glucose 122 mg/dL (70-110)
[2020-01-15] VITALS (12 sets, daily range): BP systolic 101–157; BP diastolic 67–99; PULSE 57–88; RESP 16–18; TEMP 36.2–36.8; O2SAT 98–100
[2020-01-15] MEDS: HYDROmorphone 0.5 MG/0.5 ML SYRINGE IV ×7 (01:33→23:51)
--- NOTE | 2020-01-15 05:55 | EKG12_ITS ---
Test Reason : PRE-OP Blood Pressure : / mmHG Vent. Rate : 084 BPM Atrial Rate : 084 BPM P-R Int : 172 ms QRS Dur : 076 ms QT Int : 358 ms P-R-T Axes : 067 -57 062 degrees QTc Int : 423 ms Sinus rhythm with frequent Premature ventricular complexes Left axis deviation Septal infarct , age undetermined Abnormal ECG When compared with ECG of 11-MAY-2019 09:16, Premature ventricular complexes are now Present Confirmed by ROSEANNA WILKES, BARRIE ([id number]), editor trade journal WILLIAM VALDEZ ([id number]) on 01/16/2020 8:38:24 AM Referred By: AMEENA Confirmed By:BARRIE CONDON MD
[2020-01-15 06:26] LABS: Absolute Lymphocyte Count 1.62 X10^3/uL (0.83-4.51); Absolute Neutrophil Count 4.1 X10^3/uL (2.0-7.7); Basophil# 0.03 X10^3/uL; Basophil% 0.4 % (0-1); Eosinophil# 0.15 X10^3/uL; Eosinophils% 2.2 % (0-5); Hematocrit 29.2 % (40-54); Hemoglobin 9.7 g/dL (13.0-16.5); Lymphocyte # 1.62 X10^3/ul (4.0); Lymphocyte % 23.3 % (19-41); Mean Corp Hgb Conc 33.2 g/dL (32-36); Mean Corpuscular Hgb 31.8 pg (27.0-32.0); Mean Corpuscular Volume 95.7 fL (80-94); Mean Platelet Vol. 9.4 fl (6.2-12.0); Monocyte# 0.95 X10^3/uL; Monocyte% 13.7 % (0-10); NRBC Flagged by Analyzer 0 % (0-5); Neutrophil # 4.13 X10^3/uL (2.7-7.7); Neutrophil % 59.5 % (47-70); Platelet Count 173 K/mm3 (150-450); RBC Distribution Width SD 45.1 fl (35.1-43.9); Red Blood Count 3.05 M/mm3 (4.6-6.2); White Blood Count 6.9 K/mm3 (4.4-11.0)
[2020-01-15 06:39] LABS: Anion Gap 7 (5-15); BUN 28 mg/dL (7-18); BUN/Creat Ratio 10.3 RATIO (10-20); Calcium,Total 7.9 mg/dL (8.5-10.1); Chloride 120 mmol/L (98-107); Creatinine, Serum 2.73 mg/dL (0.70-1.30); EST Glomerular Filtration Rate 26 mL/min (>60); Est Glom Filt Rate - Afr Amer 32 mL/min (>60); Estimated Creatinine Clearance 25.14 ml/min; Glucose 87 mg/dL (74-106); Potassium 4.5 mmol/L (3.5-5.1); Sodium Level 144 mmol/L (136-145)
[2020-01-15] MEDS: 0.9% Normal Saline 1,000 ML 75 ML IV ×2 (07:38→14:14)
[2020-01-15 08:19] LABS: Hemoglobin A1c 6.7 % (4.2-6.3)
--- NOTE | 2020-01-15 08:43 | PN_ITS ---
Patient Problems: Active and Suspected Problems (Last Reviewed 01/12/20 @ 01:[address] Domenico De Anda MD) Hydronephrosis (Acute) at UVJ 4mm stone Subjective: Chief complaint: Follow-up after admission for left UVJ stone, left hydronephrosis, left hydroureter and acute kidney injury. Patient seen and examined. No acute events overnight. Still symptomatic with left flank pain but he has been exhibiting drug-seeking behavior. His vital signs are stable, afebrile. Plan for cystoscopy today and placement of ureteral stent according to urology. - Physical Exam Vitals/I&O's: Vital Signs Temp Pulse Resp BP Pulse Ox 97.8 F 80 18 140/90 H 100 01/15/20 03:38 01/15/20 03:38 01/15/20 03:38 01/15/20 03:38 01/15/20 03:38 Oxygen Delivery Method Room Air Weight: 125 lb 3.561 oz Body Mass Index (BMI) 16.0 Finger Stick Blood Glucose 364 Intake and Output for Last 24 Hours 01/13/20 01/14/20 01/15/20 23:59 23:59 23:59 Intake Total 3185 / 3545 2956.67 / 3456.67 1902.5 / 1902.5 Output Total 625 / 1150 975 / 1575 1100 / 1100 Balance 2560 / 2395 1981.67 / 1881.67 802.5 / 802.5 General: Alert, Oriented x3, Cooperative, No apparent distress HEENT: Atraumatic, PERRLA, EOMI, Normocephalic Oral: Moist Mucosa, No Gingival or Mucosal Lesions/ Ulcerations Neck: Supple, No JVD, Negative Carotid Bruits, Trachea Midline, Thyroid Normal Size and Texture Lungs: Clear to auscultation, Normal air movement, No rhonchi, No wheeze, No rales, Diminished Cardiovascular: Regular rate, Regular Rhythm, Normal S1, Normal S2, PMI Normal Abdomen: Bowel Sounds Present, Soft, Non Tender, Non-Distended, No Hepato- splenomegaly Extremities: No clubbing, No cyanosis, No edema Skin: No rashes, No breakdown Lymphatic: No Cervical, Supraclavicular, or Inguinal Adenopathy Neurological: Cranial nerves II-XII grossly intact, Neuro grossly intact Psych/Mental Status: Normal Affect, Appropriate Laboratory Results 01/14/20 12:50: POC Glucose 122 H 01/14/20 15:00: Stone Source Pending, Stone Size Pending, Stone Weight Pending, Stone Color Pending 01/14/20 17:22: POC Glucose 115 H 01/14/20 22:47: POC Glucose 122 H 01/15/20 05:55: Sodium 144, Potassium 4.5, Chloride 120 H, Carbon Dioxide 17.0 L , Anion Gap 7, BUN 28 H, Creatinine 2.73 H, Estim Creat Clear Calc 25.14, Est GFR (MDRD) Af Amer 32 L, Est GFR (MDRD) Non-Af 26 L, BUN/Creatinine Ratio 10.3, Glucose 87, Calcium 7.9 L 01/15/20 05:55: WBC 6.9, RBC 3.05 L, Hgb 9.7 L, Hct 29.2 L, MCV 95.7 H, MCH 31.8, MCHC 33.2, RDW Std Deviation 45.1 H, RDW Coeff of [place] 13.0, Plt Count 173, MPV 9.4, Immature Gran % (Auto) 0.900, Neut % (Auto) 59.5, Lymph % (Auto) 23.3, [place] % (Auto) 13.7 H, Eos % (Auto) 2.2, Baso % (Auto) 0.4, Absolute Neuts (auto) 4.1, Absolute Lymphs (auto) 1.62, Nucleated RBC % 0 01/15/20 05:55: Hemoglobin A1c 6.7 H Current Medications Acetaminophen (Tylenol) 650 mg PO Q6H PRN PRN PRN Reason: Pain Score 1-10 Last Admin: 01/12/20 11:47 Dose: 650 mg Documented by: Glucagon () 1 mg IM .X1 PRN PRN Reason: Hypoglycemia Hydralazine HCl (Apresoline Iv) 10 mg IV Q4H PRN PRN PRN Reason: SBP > 160 Hydromorphone HCl (Dilaudid Inj) 0.5 mg IV Q3H PRN PRN PRN Reason: Pain Score 6-10/10 Last Admin: 01/15/20 07:41 Dose: 0.5 mg Documented by: Dextrose (Dextrose 10%-Water) 250 mls @ 999 mls/hr IV .Q16M PRN; Protocol PRN Reason: HYPOGLYCEMIA Sodium Chloride () 1,000 mls @ 75 mls/hr IV .[id number] JANKI Last Admin: 01/15/20 07:38 Dose: 75 mls/hr Documented by: Insulin Human Lispro (Humalog Kwikpen (Bkc)) 0 unit SC Q6 JANKI; Protocol Last Admin: 01/15/20 06:39 Dose: Not Given Documented by: Melatonin (Melatonin) 3 mg PO QHS PRN PRN PRN Reason: INSOMNIA Last Admin: 01/12/20 22:09 Dose: 3 mg Documented by: Ondansetron HCl (Zofran) 4 mg IV Q6H PRN PRN PRN Reason: NAUSEA/VOMITING Last Admin: 01/13/20 13:38 Dose: 4 mg Documented by: Prochlorperazine Edisylate (Compazine Iv) 5 mg IV Q4H PRN PRN PRN Reason: Breakthrough nausea/vomiting Last Admin: 01/13/20 18:57 Dose: 5 mg Documented by: Sodium Chloride () 10 - 40 ml IV UD PRN PRN Reason: SALINE FLUSH Last Admin: 01/14/20 12:51 Dose: 10 ml Documented by: Medical Necessity - Tobacco Use Smoking Status: Current some day smoker Tobacco Use: Cigars Assessment/Plan All Active Problems (Last Reviewed 01/12/20 @ 01:[address] Domenico De Anda MD) Hydronephrosis (Acute) Acute kidney injury (Acute) This is a 53 years old male patient presented to the emergency room because of left flank pain developed after falling into the bathtub, found to have left UVJ stone with left hydronephrosis and left hydroureter complicated by acute kidney injury. #1 left UVJ stone/left hydronephrosis/left hydroureter: Remained on IV fluids and IV Dilaudid for pain. Vital signs are stable. Patient still complaining of pain but none concerning for drug-seeking behavior. Repeat CT scan abdomen and pelvis without contrast revealed stable left hydroureteronephrosis, stable stone at left UVJ. Kidney function started to improve. Urine output is reasonable. Urology on the case and plan for cystoscopy today. #2 acute kidney injury: Secondary to #1. Baseline kidney function is normal. He has been on IV fluids, serum creatinine started to improve and it came down to 2.73, improving. Plan as above. #3 type 2 diabetes mellitus: Blood sugar has been stable. Hemoglobin A1c was 6.7. He is only on sliding scale. Lantus and Humalog on hold. #4 hypertension: Blood pressure stable, continue IV hydralazine PRN. Lisinopril held because of acute kidney injury. #5 chronic pain syndrome/chronic lumbar back pain/stenosis/radiculopathy: Stable, no complaint this morning. He is on IV Dilaudid PRN. #6 hyperlipidemia: Statins on hold.. #7 severe protein calorie malnutrition: Patient is very cachectic. Nutrition consulted. #8 chronic anemia: Baseline hemoglobin is been around 8 to 12 g/dL, today's hemoglobin is 9.7, stable at baseline. No evidence of active bleeding. #9 DVT prophylaxis: Low risk patient, ambulate. This note was generated with [employer] dictation software. It may contain incorrect words, spelling, and punctuation that were not noted in checking the note before signing. Inpatient E&M: 53496 Subs Hosp L2
--- NOTE | 2020-01-15 10:30 | NURSING ---
pt off unit to OR with Dr. Loving at this time
[2020-01-15 10:31] LABS: Bedside Glucose 83 mg/dL (70-110)
[2020-01-15] MEDS: Cefazolin 2 GM in 0.9% Normal Saline 100 ML IV (12:04)
--- NOTE | 2020-01-15 12:24 | OP.PCM_ITS ---
Problem List (1) Hydronephrosis Status: Acute Qualifiers: Hydronephrosis type: with ureteral calculous obstruction Qualified Code(s): N13.2 - Hydronephrosis with renal and ureteral calculous obstruction Comment: at UVJ 4mm stone Report of Operation Date of Procedure: 01/15/20 Pre-Operative Diagnosis: Distal left ureteral calculus with obstruction Post-Operative Diagnosis: Same stone is passed no stone Surgery/Procedure Performed:: Cystoscopy, left retrograde pyelogram, balloon dilation of the ureter, left ureteroscopy. No stent Description of Surgical Findings:: Patient presented to the hospital for treatment of a calculus millimeters in size in the distal ureter. We discussed how the procedure is done what to expect afterwards he probably will need a stent. We discussed the discomfort that the stent would cause, burning with urination, frequency, urgency, pain in the kidney, blood in the urine. We also discussed the risk of the procedure including bleeding and infection and the risk of anesthesia. We discussed the very rare risk of injury or scar tissue development in the ureter after this procedure. We also discussed the possibility that the stone would not be able to be treated completely and he may need multiple procedures. After discussion with the patient in the preoperative area also I saw the patient in the office discussing the same outcomes the patient signed the consent form, and all the patient's questions were answered. The patient was taken back to the operating room after smooth induction of general anesthesia and the patient was placed supine on the table. We then repositioned the patient in dorsolithotomy position with the legs in stirrups. We made sure all his pressure points were padded. The patient had SCDs on for DVT prophylaxis and was loaded with IV antibiotics prior to the procedure. Imaging was reviewed which demonstrated stone in the distal ureter on repeat CAT scan while in the hospital. I went into the bladder with a 21 [place] rigid cystoscopy ureteroscopy after gentle dilation of the urethra. The urethra findings were normal urethra . The prostate findings were normal prostate . Inside the bladder the trigone was inspected left and right dumas of the bladder and posterior and dome of the bladder was inspected and the main findings in the bladder was normal bladder inflamed left ureteral orifice . I then cannulated the left ureter and used a wire to go up to the ureter then over the wire I performed balloon dilation of the distal ureter with a ureteral balloon dilator, the balloon dilator size was 12 [place] . I then left the wire in place and next to the wire I went up with a ureteroscope, no stone was seen. A retrograde pyelogram was then performed and again the stone had passed. I then drained the bladder with the cystoscope the patient's anesthetic was reversed. Patient's anesthetic is being reversed and is taken back to the PACU in stable condition. No stent placed. Type of Anesthesia:: General Drains: none - Admit VTE Documentation VTE Present on Admission: No VTE Mechan Device Prophylaxis: SCD's
[2020-01-15] MEDS: 0.9% Saline Lock 10 ML Syringe IV ×2 (14:08→17:36)
[2020-01-15] MEDS: Insulin Lispro 100 UNIT/ML INSULN.PEN SC (17:46)
[2020-01-15 17:51] LABS: Bedside Glucose 173 mg/dL (70-110)
[2020-01-15] MEDS: MELATONIN 3 MG TABLET PO (21:59)
[2020-01-15 22:05] LABS: Bedside Glucose 143 mg/dL (70-110)
[2020-01-16 01:51] LABS: Bedside Glucose 86 mg/dL (70-110)
[2020-01-16] MEDS: HYDROmorphone 0.5 MG/0.5 ML SYRINGE IV ×7 (02:51→21:05)
[2020-01-16] MEDS: 0.9% Normal Saline 1,000 ML 75 ML IV (02:53)
[2020-01-16 02:55] VITALS: BP 157/84; PULSE 82; RESP 16; TEMP 36.7; O2SAT 100
[2020-01-16 06:21] LABS: Anion Gap 7 (5-15); BUN 25 mg/dL (7-18); Chloride 118 mmol/L (98-107); Creatinine, Serum 2.49 mg/dL (0.70-1.30); EST Glomerular Filtration Rate 29 mL/min (>60); Est Glom Filt Rate - Afr Amer 35 mL/min (>60); Estimated Creatinine Clearance 30.04 ml/min; Glucose 121 mg/dL (74-106); Potassium 4.5 mmol/L (3.5-5.1); Sodium Level 143 mmol/L (136-145)
[2020-01-16] MEDS: Insulin Lispro 100 UNIT/ML INSULN.PEN SC (06:47)
[2020-01-16 07:41] LABS: Bedside Glucose 165 mg/dL (70-110)
--- NOTE | 2020-01-16 08:18 | PN_ITS ---
Patient Problems: Active and Suspected Problems (Last Reviewed 01/12/20 @ 01:[address] Domenico De Anda MD) Hydronephrosis (Acute) at UVJ 4mm stone Subjective: Chief complaint: Follow-up after admission for left UVJ stone, left hydronephrosis, left hydroureter and acute kidney injury. Patient seen and examined. No acute events overnight. He underwent cystoscopy today and apparently, the left you UVJ stone passed down. Patient still complaining of pain on the left flank and left lateral chest and he claimed that he had a fall on the day of admission. He is requesting every dose of IV Dilaudid. His vital signs are stable. - Physical Exam Vitals/I&O's: Vital Signs Temp Pulse Resp BP Pulse Ox 98.1 F 82 16 157/84 H 100 01/16/20 02:55 01/16/20 02:55 01/16/20 02:55 01/16/20 02:55 01/16/20 02:55 Oxygen Delivery Method Room Air Weight: 136 lb 7.458 oz Body Mass Index (BMI) 17.5 Finger Stick Blood Glucose 364 Intake and Output for Last 24 Hours 01/14/20 01/15/20 01/16/20 23:59 23:59 23:59 Intake Total 2956.67 / 3456.67 3107.5 / 3107.5 2448.75 / 2448.75 Output Total 975 / 1575 1999 / 1999 600 / 600 Balance 1981.67 / 1881.67 1107.5 / 1107.5 1848.75 / 1848.75 General: Alert, Oriented x3, Cooperative, No apparent distress HEENT: Atraumatic, PERRLA, EOMI, Normocephalic Oral: Moist Mucosa, No Gingival or Mucosal Lesions/ Ulcerations Neck: Supple, No JVD, Negative Carotid Bruits, Trachea Midline, Thyroid Normal Size and Texture Lungs: Clear to auscultation, Normal air movement, No rhonchi, No wheeze, No rales, Diminished Cardiovascular: Regular rate, Regular Rhythm, Normal S1, Normal S2, PMI Normal Abdomen: Bowel Sounds Present, Soft, Non Tender, Non-Distended, No Hepato- splenomegaly Extremities: No clubbing, No cyanosis, Edema Skin: No rashes, No breakdown Lymphatic: No Cervical, Supraclavicular, or Inguinal Adenopathy Neurological: Cranial nerves II-XII grossly intact, Neuro grossly intact Psych/Mental Status: Normal Affect, Appropriate Laboratory Results 01/15/20 05:55: Hemoglobin A1c 6.7 H 01/15/20 06:32: POC Glucose 86 01/15/20 10:27: POC Glucose 83 01/15/20 17:44: POC Glucose 173 H 01/15/20 21:58: POC Glucose 143 H 01/16/20 05:34: Sodium 143, Potassium 4.5, Chloride 118 H, Carbon Dioxide 18.0 L , Anion Gap 7, BUN 25 H, Creatinine 2.49 H, Estim Creat Clear Calc 30.04, Est GFR (MDRD) Af Amer 35 L, Est GFR (MDRD) Non-Af 29 L, BUN/Creatinine Ratio 10.0, Glucose 121 H, Calcium 8.0 L 01/16/20 06:43: POC Glucose 165 H Current Medications Acetaminophen (Tylenol) 650 mg PO Q6H PRN PRN PRN Reason: Pain Score 1-10/10 Last Admin: 01/12/20 11:47 Dose: 650 mg Documented by: Glucagon () 1 mg IM .X1 PRN PRN Reason: Hypoglycemia Hydralazine HCl (Apresoline Iv) 10 mg IV Q4H PRN PRN PRN Reason: SBP > 160 Hydromorphone HCl (Dilaudid Inj) 0.5 mg IV Q3H PRN PRN PRN Reason: Pain Score 6-10/10 Last Admin: 01/16/20 05:52 Dose: 0.5 mg Documented by: Dextrose (Dextrose 10%-Water) 250 mls @ 999 mls/hr IV .Q16M PRN; Protocol PRN Reason: HYPOGLYCEMIA Sodium Chloride () 1,000 mls @ 125 mls/hr IV .Q8H JANKI Last Admin: 01/16/20 02:53 Dose: 75 mls/hr Documented by: Insulin Human Lispro (Humalog Kwikpen (Bkc)) 0 unit SC ACHS [facility]; Protocol Last Admin: 01/16/20 06:47 Dose: 1 unit Documented by: Melatonin (Melatonin) 3 mg PO QHS PRN PRN PRN Reason: INSOMNIA Last Admin: 01/15/20 21:59 Dose: 3 mg Documented by: Ondansetron HCl (Zofran) 4 mg IV Q6H PRN PRN PRN Reason: NAUSEA/VOMITING Last Admin: 01/13/20 13:38 Dose: 4 mg Documented by: Oxycodone HCl (Oxyir) 5 mg PO Q8H PRN PRN PRN Reason: Pain Score 6-10/10 Prochlorperazine Edisylate (Compazine Iv) 5 mg IV Q4H PRN PRN PRN Reason: Breakthrough nausea/vomiting Last Admin: 01/13/20 18:57 Dose: 5 mg Documented by: Sodium Chloride () 10 - 40 ml IV UD PRN PRN Reason: SALINE FLUSH Last Admin: 01/15/20 17:36 Dose: 10 ml Documented by: Medical Necessity - Tobacco Use Smoking Status: Current some day smoker Tobacco Use: Cigars Assessment/Plan All Active Problems (Last Reviewed 01/12/20 @ 01:[address] Domenico De Anda MD) Hydronephrosis (Acute) Acute kidney injury (Acute) This is a 53 years old male patient presented to the emergency room because of left flank pain developed after falling into the bathtub, found to have left UVJ stone with left hydronephrosis and left hydroureter complicated by acute kidney injury. #1 left UVJ stone/left hydronephrosis/left hydroureter: Status post cystoscopy, left retrograde pyelogram, balloon dilation of the left ureter and left ureteroscopy, stone passed down, no stone seen. Kidney function continued to improve slowly. Patient still complaining of left flank and left lateral chest pain. Remained on IV fluids and IV Dilaudid for pain. Vital signs are stable. Plan to increase IV fluids, OxyIR PRN for pain, repeat BMP tomorrow morning, anticipate discharge home tomorrow. #2 acute kidney injury: Secondary to #1. Baseline kidney function is normal. He has been on IV fluids, serum creatinine continued to improve very slowly. Today's creatinine is down to 2.49, baseline is normal. Plan to increase IV fluids as above, repeat BMP tomorrow morning. #3 type 2 diabetes mellitus: Blood sugar has been stable. Hemoglobin A1c was 6.7. He is only on sliding scale. Lantus and Humalog on hold. #4 hypertension: Blood pressure stable, continue IV hydralazine PRN. Lisinopril held because of acute kidney injury. #5 chronic pain syndrome/chronic lumbar back pain/stenosis/radiculopathy: Stable, no complaint this morning. He is on IV Dilaudid PRN. He is still requesting more pain medicines. Definitely, patient is exhibiting drug-seeking behavior. I tried to explain to him that pain medication should be requested only as needed. He proved that his left ureteral stone passed down. He claimed that he fell on his left side and having left lateral chest pain. Plan to add OxyIR as above. #6 hyperlipidemia: Statins on hold.. #7 severe protein calorie malnutrition: Patient is very cachectic. Nutrition consulted. #8 chronic anemia: Baseline hemoglobin is been around 8 to 12 g/dL, yesterday's hemoglobin is 9.7, stable at baseline. No evidence of active bleeding. #9 DVT prophylaxis: Low risk patient, ambulate. This note was generated with [employer] dictation software. It may contain incorrect words, spelling, and punctuation that were not noted in checking the note before signing. Inpatient E&M: 96497 Subs Hosp L2
[2020-01-16 08:55] VITALS: BP 166/100; PULSE 93; RESP 16; TEMP 36.9; O2SAT 100
[2020-01-16] MEDS: 0.9% Saline Lock 10 ML Syringe IV ×4 (08:56→18:06)
[2020-01-16] MEDS: oxyCODONE 5 MG Tablet PO ×2 (11:08→19:37)
[2020-01-16 11:11] LABS: Bedside Glucose 129 mg/dL (70-110)
[2020-01-16] MEDS: 0.9% Normal Saline 1,000 ML 125 ML IV ×2 (12:01→19:36)
[2020-01-16 15:27] VITALS: BP 170/104; PULSE 86; RESP 16; TEMP 36.3; O2SAT 100
[2020-01-16 17:00] LABS: Bedside Glucose 126 mg/dL (70-110)
[2020-01-16] MEDS: Acetaminophen 325 MG Tablet 650 MG PO (19:42)
[2020-01-16 20:09] VITALS: BP 154/92; PULSE 85; RESP 17; TEMP 37.1; O2SAT 100
[2020-01-16] MEDS: MELATONIN 3 MG TABLET PO (21:06)
[2020-01-16 21:36] LABS: Bedside Glucose 132 mg/dL (70-110)
[2020-01-17] MEDS: HYDROmorphone 0.5 MG/0.5 ML SYRINGE IV ×4 (00:11→10:12)
[2020-01-17 03:15] VITALS: BP 132/79; PULSE 84; RESP 17; TEMP 36.8; O2SAT 95
[2020-01-17] MEDS: 0.9% Normal Saline 1,000 ML 125 ML IV (03:18)
[2020-01-17] MEDS: 0.9% Saline Lock 10 ML Syringe IV ×2 (06:56→10:12)
[2020-01-17 08:11] VITALS: BP 148/78; PULSE 83; RESP 18; TEMP 36.4; O2SAT 100
[2020-01-17 08:58] LABS: Anion Gap 9 (5-15); BUN 20 mg/dL (7-18); BUN/Creat Ratio 9.3 RATIO (10-20); Calcium,Total 7.9 mg/dL (8.5-10.1); Chloride 120 mmol/L (98-107); Creatinine, Serum 2.16 mg/dL (0.70-1.30); EST Glomerular Filtration Rate 34 mL/min (>60); Est Glom Filt Rate - Afr Amer 41 mL/min (>60); Estimated Creatinine Clearance 34.63 ml/min; Glucose 129 mg/dL (74-106); Potassium 4.5 mmol/L (3.5-5.1); Sodium Level 148 mmol/L (136-145)
--- NOTE | 2020-01-17 09:41 | PCM.DC ---
- Discharge Diagnoses Current Active Problems: Current Active and Chronic Problems (Last Reviewed 01/12/20 @ 01:[address] Domenico De Anda MD) Hydronephrosis (Acute) at UVJ 4mm stone You will use the following diet at home:: Calorie/Carbohydrate Controlled (specify 1200, 1400, etc) - 1800 mila., Cardiac Your food should be the consistency of: Regular Discharge Activity: Return to Normal Activity Weight Bearing Status: Weight bearing as tolerated Call your doctor if you observe: Fever of 101 or Higher, Shortness of breath, Dizziness, Fainting spells, Chest pain, Increased palpitations (irregular heartbeat), Uncontrolled pain Allergies/Adverse Reactions: Allergies morphine Allergy (Verified 01/11/20 17:22) headaches pt states gets very bad headaches from morphine dicyclomine [From Bentyl] Adverse Reaction (Verified 01/11/20 17:22) Abd cramps/diarrhea fentanyl Adverse Reaction (Verified 01/11/20 17:22) Pt didn't like how it made him feel PT STATES HE DOES NOT LIKE HOW IT MAKES HIM FEEL. ketorolac [From Toradol] Adverse Reaction (Verified 01/11/20 17:22) real sluggish Medications to take at Discharge Insulin Glargine [Lantus SoloStar Pen] 16 units SUBCUT QHS 10/17/19 Insulin Lispro [Humalog KwikPen] 12 units SQ TID 10/17/19 Atorvastatin Calcium [Lipitor] 40 mg PO QHS 01/11/20 Lisinopril [Zestril] 5 mg PO DAILY 01/11/20 Oxycodone [Oxyir] 5 mg PO Q12H PRN PRN 5 Days #10 tablet 01/17/20 The following prescriptions were given: Oxycodone [Oxyir] 5 mg PO Q12H PRN PRN 5 Days #10 tablet PRN Reason: Pain Score 6-10/10 Transmission Status: Sent to [facility] Primary Care Physician: Guido Miller MD [Primary Care Provider] - Please follow up with your Primary Care Physician in: 1 week. Test Results: Test results from this visit will be discussed in further detail at your follow-up appointment, if applicable.
--- NOTE | 2020-01-17 10:33 | PCM.DC.SUM ---
Discharge Date and Diagnosis - Problem List Patient Problems: Active and Suspected Problems (Last Reviewed 01/12/20 @ 01:[address] Domenico De Anda MD) Hydronephrosis (Acute) at UVJ 4mm stone Date of Admission: 01/11/20 Date of Discharge: 01/17/20 - Primary Discharge Diagnosis Active and Suspected Problems (Last Reviewed 01/12/20 @ 01:[address] Domenico De Anda MD) #1 left UVJ stone/left hydronephrosis/left hydroureter, status post cystoscopy, left retrograde pyelogram. Stone passed down. #2 acute kidney injury. #3 chronic pain syndrome/chronic lumbar back pain/stenosis, patient constantly asking for pain medicine. - Secondary Discharge Diagnosis Chronic Problems (Last Reviewed 01/12/20 @ 01:[address] Domenico De Anda MD) HLD (hyperlipidemia) (Chronic) Hepatitis C antibody positive in blood (Chronic) Dysphagia (Chronic) Malnutrition (Chronic) Anemia (Chronic) Lumbar foraminal stenosis (Chronic) Elevated liver enzymes (Chronic) Type 2 diabetes mellitus (Chronic) Chronic back pain (Chronic) Hypertension (Chronic) Hospital Course and Treatment Imaging Results: Clinical Impression(s) from Imaging Studies Abdomen/Pelvis CT 01/11/20 17:09 IMPRESSION: Left hydronephrosis and left hydroureter. Stone at the left UVJ as detailed above. Electronically Signed: Ajit Damon DO at 17:47 EDT Tel , Service support , Abdomen/Pelvis CT 01/14/20 09:00 IMPRESSION: Relatively stable left hydronephrosis and hydroureter. Stable probable stone at the left UVJ. Possible nonobstructing lower pole left renal calculus. Electronically Signed: Gentry Sotelo DO at 10:50 EDT Tel [phone], Service support , Dr. Loving, urology. Operations: None Procedures: - - Cystoscopy, left retrograde pyelogram, balloon dilation of the ureter, left ureteroscopy, no stone found. Summary of Care Provided: Patient seen and examined on the day of discharge and appeared to be stable be discharged home. He feels better but still complaining of pain issues which has been chronic. His vital signs are stable. The patient is a 54 year old M presented to the emergency room because of left flank pain developed after he falling into the bathtub for which CT scan abdomen and pelvis without contrast performed and revealed left UVJ stone, left hydronephrosis and left hydroureter and he was found to have acute kidney injury. On admission, CT scan abdomen pelvis revealed 4.2 left UVJ stone with evidence of left hydronephrosis and left hydroureter. Patient was treated with IV fluids, IV pain medications and IV antiemetics. On admission, serum creatinine was 3.04 mg/dL and it went up to 3.35 mg/dL. Initially, kidney function did not improve for which CT scan abdomen and pelvis without contrast repeated and revealed stable stone at the left UVJ, stable left hydronephrosis and hydroureter. Urology consulted and patient underwent cystoscopy, left retrograde pyelogram, balloon dilation of the left ureter and left uteroscopy and no stone found. Apparently the stone passed down and no stent was placed. Patient was continued on IV fluids and his kidney function improved. On the day of discharge, serum creatinine came down to 2.1 mg/dL. This patient is known to ask for pain medications on any admission. During this hospital stay, he has been consistently asking for his IV Dilaudid [id number] although it was ordered PRN. I spoke with the patient multiple times about him asking for pain medications on the clock and he complained of different pains apart from the left flank pain including back pain. He used to see pain management doctor as outpatient. I informed the patient that if he thinks his current pain is not manageable, he need to see a pain management doctor that should take care of his pain medications. Patient discharged home in a stable medical condition, I gave him a prescription for OxyIR 5 mg every 2 hours PRN for pain, only 10 tablets were prescribed, resume back on his previous medications without any changes, recommended follow-up with PCP in 1 week and I recommended that patient should to pain management as well. Patient Problems: Active and Suspected Problems (Last Reviewed 01/12/20 @ 01:[address] Domenico De Anda MD) Hydronephrosis (Acute) at UVJ 4mm stone - Physical Exam Vitals/I&O's: Vital Signs Temp Pulse Resp BP Pulse Ox 97.6 F L 83 18 148/78 H 100 01/17/20 08:11 01/17/20 08:11 01/17/20 08:11 01/17/20 08:11 01/17/20 08:11 Oxygen Delivery Method Room Air Weight: 136 lb 7.458 oz Body Mass Index (BMI) 17.5 Finger Stick Blood Glucose 364 Intake and Output for Last 24 Hours 01/15/20 01/16/20 01/17/20 23:59 23:59 23:59 Intake Total 3107.5 / 3107.5 6351.67 / 6351.67 1602.5 / 1602.5 Output Total 1999 1350 / 1350 Balance 1107.5 / 1107.5 5001.67 / 5001.67 1602.5 / 1602.5 General: Alert, Oriented x3, Cooperative, No apparent distress HEENT: Atraumatic, PERRLA, EOMI, Normocephalic Oral: Moist Mucosa, No Gingival or Mucosal Lesions/ Ulcerations Neck: Supple, No JVD, Negative Carotid Bruits, Trachea Midline, Thyroid Normal Size and Texture Lungs: Clear to auscultation, Normal air movement, No rhonchi, No wheeze, No rales, Diminished Cardiovascular: Regular rate, Regular Rhythm, Normal S1, Normal S2, PMI Normal Abdomen: Bowel Sounds Present, Soft, Non Tender, Non-Distended, No Hepato-splenomegaly Extremities: No clubbing, No cyanosis, Edema Skin: No rashes, No breakdown Lymphatic: No Cervical, Supraclavicular, or Inguinal Adenopathy Neurological: Cranial nerves II-XII grossly intact, Neuro grossly intact Psych/Mental Status: Normal Affect, Appropriate Laboratory Results 01/16/20 11:03: POC Glucose 129 H 01/16/20 16:56: POC Glucose 126 H 01/16/20 21:03: POC Glucose 132 H 01/17/20 08:35: Sodium 148 H, Potassium 4.5, Chloride 120 H, Carbon Dioxide 19.0 L, Anion Gap 9, BUN 20 H, Creatinine 2.16 H, Estim Creat Clear Calc 34.63, Est GFR (MDRD) Af Amer 41 L, Est GFR (MDRD) Non-Af 34 L, BUN/Creatinine Ratio 9.3 L, Glucose 129 H, Calcium 7.9 L Current Medications Acetaminophen (Tylenol) 650 mg PO Q6H PRN PRN PRN Reason: Pain Score 1-10/10 Last Admin: 01/16/20 19:42 Dose: 650 mg Documented by: Glucagon () 1 mg IM .X1 PRN PRN Reason: Hypoglycemia Hydralazine HCl (Apresoline Iv) 10 mg IV Q4H PRN PRN PRN Reason: SBP > 160 Hydromorphone HCl (Dilaudid Inj) 0.5 mg IV Q3H PRN PRN PRN Reason: Pain Score 6-10/10 Last Admin: 01/17/20 10:12 Dose: 0.5 mg Documented by: Dextrose (Dextrose 10%-Water) 250 mls @ 999 mls/hr IV .Q16M PRN; Protocol PRN Reason: HYPOGLYCEMIA Sodium Chloride () 1,000 mls @ 125 mls/hr IV .Q8H JANKI Last Admin: 01/17/20 03:18 Dose: 125 mls/hr Documented by: Insulin Human Lispro (Humalog Kwikpen (Bkc)) 0 unit SC ACHS [facility]; Protocol Last Admin: 01/17/20 06:51 Dose: Not Given Documented by: Melatonin (Melatonin) 3 mg PO QHS PRN PRN PRN Reason: INSOMNIA Last Admin: 01/16/20 21:06 Dose: 3 mg Documented by: Ondansetron HCl (Zofran) 4 mg IV Q6H PRN PRN PRN Reason: NAUSEA/VOMITING Last Admin: 01/13/20 13:38 Dose: 4 mg Documented by: Oxycodone HCl (Oxyir) 5 mg PO Q8H PRN PRN PRN Reason: Pain Score 6-10/10 Last Admin: 01/16/20 19:37 Dose: 5 mg Documented by: Prochlorperazine Edisylate (Compazine Iv) 5 mg IV Q4H PRN PRN PRN Reason: Breakthrough nausea/vomiting Last Admin: 01/13/20 18:57 Dose: 5 mg Documented by: Sodium Chloride () 10 - 40 ml IV UD PRN PRN Reason: SALINE FLUSH Last Admin: 01/17/20 10:12 Dose: 10 ml Documented by: Discharge Activity: Return to Normal Activity Weight Bearing Status: Weight bearing as tolerated Call your doctor if you observe: Fever of 101 or Higher, Shortness of breath, Dizziness, Fainting spells, Chest pain, Increased palpitations (irregular heartbeat), Uncontrolled pain Home Medications: Medications to take at Discharge Insulin Glargine [Lantus SoloStar Pen] 16 units SUBCUT QHS 10/17/19 Insulin Lispro [Humalog KwikPen] 12 units SQ TID 10/17/19 Atorvastatin Calcium [Lipitor] 40 mg PO QHS 01/11/20 Lisinopril [Zestril] 5 mg PO DAILY 01/11/20 Oxycodone [Oxyir] 5 mg PO Q12H PRN PRN 5 Days #10 tab 01/17/20 Following Prescrptions Were Given to Patient: Oxycodone [Oxyir] 5 mg PO Q12H PRN PRN 5 Days #10 tab PRN Reason: Pain Score 6-10/10 Transmission Status: Received by [employer] [employer] Primary Care Physician: Guido Miller MD [Primary Care Provider] - Please follow up with your Primary Care Physician in: 1 week. Disposition: Home Minutes spent on discharge:: 33 Patient Condition:: Stable Medical Necessity - Tobacco Use Smoking Status: Current some day smoker Tobacco Use: Cigars Meaningful Use Info Meaningful Use Diagnoses (Choose all that apply): None applicable Inpatient E&M: 99082 Disch Hosp
[2020-01-18 00:16] LABS: Bedside Glucose 97 mg/dL (70-110)
--- NOTE | 2020-01-18 14:50 | CASEMGMT ---
WO[facility]KE[facility] Discharge Follow-up Phone Call: SAMEER: Roseanne Strata: 4 Call Date: 01/18/20 Discharge Date: 01/17/20 Time of Call: 1450 Duration: 3 min Admitting Diagnosis: Left hydronephrosis, left hydroureter WO[facility]KE[facility] completed follow-up phone call after recent hospitalization. Patient states she is doing well. Patient states he has no question regarding discharge instructions. Patient was able to fill prescriptions without any issues. Patient has list of PCP to get establish with. Patient has no further needs or concerns at this time.
== END 2020-01-17 11:40 | disposition home or self-care (01) | DRG 443 ==
LOC: ED 17:04 → MS3 20:36
PROVIDERS: Anesthesiology; Student in an Organized Health Care Education/Training Program; Urology; Admitting Provider Hospitalist; Emergency Provider Emergency Medicine; PCP Internal Medicine; Visit Provider Hospitalist
PROC: 0TJ98ZZ Inspection of Ureter, Via Natural or Artificial Opening Endoscopic (ICD-10-PCS; CPT 52352; principal; 2020-01-15 13:45)
DX: N13.2 Hydronephrosis with renal and ureteral calculous obstruction (principal); N17.9 Acute kidney failure, unspecified; E43 Unspecified severe protein-calorie malnutrition; Z79.4 Long term (current) use of insulin; F17.290 Nicotine dependence, other tobacco product, uncomplicated; Z68.1 Body mass index [BMI] 19.9 or less, adult; E11.65 Type 2 diabetes mellitus with hyperglycemia; D64.9 Anemia, unspecified; E78.5 Hyperlipidemia, unspecified; G89.4 Chronic pain syndrome; M48.061 Spinal stenosis, lumbar region without neurogenic claudication
CPT/HCPCS: 36415; 74176; 76000; 80048; 81001; 82360; 82570; 82962; 83036; 84300; 85014; 85018; 85025; 93005; 97161; 97166; 97530; 97802; 99285; J7030; J7120; A4216; C1769; J2405

== ENCOUNTER 2020-01-22 04:22 | Emergency (ER) | payer MEDICAID, SELFPAY ==
[2020-01-22 04:25] VITALS: BP 181/102; PULSE 93; RESP 18; TEMP 36.7; O2SAT 98; BMI 18.3
[2020-01-22 04:31] VITALS: BP 174/106
--- NOTE | 2020-01-22 04:43 | CT_ITS ---
STUDY: CT ABDOMEN AND PELVIS WITHOUT CONTRAST REASON FOR EXAM: Male, 54 years old. MID ABDOMEN PAIN AND NAUSEA -- HX:DIABETES,HTN,HEP C,KIDNEY STONES,PANCREATITIS -- SURGERY::APPENDECTOMY,CHOLECYSTECTOMY RADIATION DOSAGE (If Supplied By Facility): CTDIvol = ( 6.07 ) mGy, DLP = ( 322.95 ) mGycm TECHNIQUE: Transaxial images were obtained from the dome of the diaphragm to the symphysis pubis without oral contrast, and without intravenous contrast. Sagittal and coronal images were reconstructed. Visualization of anatomic detail is limited by patient''s asthenic body habitus, with paucity of internal fat planes as well as lack of oral and IV contrast. Individualized dose optimization techniques were used for this CT. COMPARISON: 01/14/2020. 01/25/2019 FINDINGS: The visualized lung bases are unremarkable. The visualized portions of the heart are within normal limits. Diffuse infiltration of subcutaneous fat, suggesting anasarca. Normal liver. There is nonvisualization of the gallbladder, consistent with given history of prior cholecystectomy. There are several calcific densities in the gallbladder fossa which were also present on the previous exams and are of doubtful current clinical significance.. Normal spleen. Normal pancreas. Normal bilateral adrenal glands. Normal right kidney. There is a 4 mm nonobstructive left lower pole renal calculus. Otherwise, normal left kidney. Normal visualized stomach. Normal small intestine. Normal colon. There is non-visualization of the appendix, consistent with given history of prior appendectomy. There is mild atherosclerotic calcification of the abdominal aorta, without a demonstrated aneurysm. There is more prominent calcification of mid sized pelvic and lower extremity arteries. Normal inferior vena cava. Normal retroperitoneum. Normal urinary bladder. Normal abdominal wall. There are multilevel degenerative changes of the visualized lumbar spine. CT/Abdomen/Pelvis without Cont IMPRESSION: Limited exam due to paucity of internal fat planes as well as lack of oral and IV contrast. Previous cholecystectomy and appendectomy by history. Small nonobstructive left renal calculus. No demonstrated ureteral calculus or hydronephrosis. Subcutaneous fat infiltration, suggesting anasarca. Atherosclerosis. No visualized acute pathology within the abdomen or pelvis. Electronically Signed: Robe Johnson MD at 5:38 EDT , Service support ,
[2020-01-22 04:51] LABS: Absolute Lymphocyte Count 1.89 X10^3/uL (0.83-4.51); Absolute Neutrophil Count 3.7 X10^3/uL (2.0-7.7); Basophil# 0.03 X10^3/uL; Basophil% 0.5 % (0-1); Eosinophil# 0.19 X10^3/uL; Eosinophils% 2.9 % (0-5); Hematocrit 29.5 % (40-54); Hemoglobin 9.8 g/dL (13.0-16.5); Lymphocyte # 1.89 X10^3/ul (4.0); Lymphocyte % 28.5 % (19-41); Mean Corp Hgb Conc 33.2 g/dL (32-36); Mean Corpuscular Hgb 32.6 pg (27.0-32.0); Monocyte# 0.79 X10^3/uL; Monocyte% 11.9 % (0-10); NRBC Flagged by Analyzer 0 % (0-5); Neutrophil # 3.65 X10^3/uL (2.7-7.7); Neutrophil % 55.1 % (47-70); Platelet Count 175 K/mm3 (150-450); RBC Distribution Width CV 13.3 % (11.6-14.6); RBC Distribution Width SD 47.7 fl (35.1-43.9); Red Blood Count 3.01 M/mm3 (4.6-6.2); White Blood Count 6.6 K/mm3 (4.4-11.0)
[2020-01-22] MEDS: 0.9% Normal Saline 1,000 ML 1000 ML IV (05:03)
[2020-01-22] MEDS: Ondansetron 4 MG/2 ML Vial IV (05:12)
[2020-01-22 05:29] LABS: Bacteria 0 SEEN /hpf (None Seen); Mucous, Urine 0 SEEN /hpf (<or=2+); Squamous Epithelial Cells - UA 0 SEEN /hpf (0-5); White Blood Cells 0 SEEN /hpf (0-5)
[2020-01-22 05:30] LABS: Color, Urine Yellow (Yellow); Glucose, Dipstick Normal (Normal); Ketone-Dipstick Negative (Negative); Leukocyte Esterase-Dipstick Negative /ul (Negative); Nitrite-Dipstick Negative (Negative); Occult Blood-Urine Negative /ul (Negative); Protein-Dipstick 15 mg/dl (Negative); Urine Bilirubin Dipstick Negative (Negative); Urine Clarity Clear (Clear); Urine Urobilinogen Normal (Normal)
[2020-01-22 05:33] LABS: ALB/GLOB Ratio 0.7 RATIO (0.9-2.4); AST(SGOT) 34 U/L (15-37); Alanine Aminotransfer ALT/SGPT 49 U/L (16-61); Albumin, Serum 2.9 g/dL (3.2-5.0); Alkaline Phosphatase 83 U/L (45-117); Anion Gap 1 (5-15); BUN 16 mg/dL (7-18); BUN/Creat Ratio 7.5 RATIO (10-20); Calcium,Total 8.1 mg/dL (8.5-10.1); Chloride 121 mmol/L (98-107); Creatinine, Serum 2.13 mg/dL (0.70-1.30); EST Glomerular Filtration Rate 35 mL/min (>60); Est Glom Filt Rate - Afr Amer 42 mL/min (>60); Estimated Creatinine Clearance 35.91 ml/min; Globulin 4.4 g/dL (2.2-4.2); Glucose 116 mg/dL (74-106); Lipase 130 U/L (73-393); Potassium 5.1 mmol/L (3.5-5.1); Protein, Total 7.3 g/dL (6.4-8.2); Sodium Level 141 mmol/L (136-145)
[2020-01-22 05:35] LABS: Red Blood Cells-Urine 0-5 SEEN /hpf (0-5)
--- NOTE | 2020-01-22 05:48 | ED.VISSUMM ---
- ER Visit Summary Date of Service: 01/22/20 Chief Complaint: Abdominal pain History of Present Illness: The patient is a 54 M who reports that he has abdominal pain that began approximately 1 week ago. It is gradually gotten worse. It is a diffuse pain that he describes as aching and sharp. Is 10 on 10 severity. Nothing makes this better or worse. He has had nausea without vomiting. No diarrhea. His last bowel was today. No mild hematochezia. No dysuria or frequency. No fever or chills. Physical Examination: Vitals: Stable. Afebrile. General: Well-nourished and well-developed. Head: Normocephalic atraumatic. Neck: Supple, no lymphadenopathy. No JVD. Nontender. Cardiovascular: Regular rate and rhythm. No murmurs. Respiratory: No respiratory distress. Clear to auscultation bilaterally. Abdominal: Soft, mild diffuse tenderness to palpation, nondistended, normal bowel sounds. No guarding, rebound, or peritoneal signs. Back: Nontender. Extremities: Nontender, no edema. Skin: Normal color, no rash. Neurologic: Alert and oriented ?3. Cranial nerves II through XII are intact. Normal strength and sensation. Psych: Normal affect. Test Results: CBC shows an H&H of 9.8 and 29.5 with monocytes of 12. Chem-7 shows a chloride of 121, CO2 of 19, glucose of 116, creatinine 2.13, calcium of 8.1. However, this hyperchloremic metabolic acidosis is chronic and unchanged. LFTs show an albumin 7.9 globulin of 4.4. Lipase is normal. UA is negative. Clinical Impression(s) from Imaging Studies Abdomen/Pelvis CT 01/22/20 04:43 IMPRESSION: Limited exam due to paucity of internal fat planes as well as lack of oral and IV contrast. Previous cholecystectomy and appendectomy by history. Small nonobstructive left renal calculus. No demonstrated ureteral calculus or hydronephrosis. Subcutaneous fat infiltration, suggesting anasarca. Atherosclerosis. No visualized acute pathology within the abdomen or pelvis. Electronically Signed: Robe Johnson MD at 5:38 EDT , Service support , Emergency Department Course and Treatment: Patient is allergic to Toradol, Bentyl, fentanyl, and morphine. He specifically wants Dilaudid for pain. I discussed with him that he will be treated with opiate-based medications if his labs or imaging show objective evidence for a cause for his abdominal pain. He refused Tylenol and ibuprofen. It is clearly documented on his admission to the hospital earlier this month that he requested repeated doses of Dilaudid and I do not think giving him opiate-based medications are indicated or in his best interest at this time. Treatment Plan: Patient be discharged with Kumar. Instructed to follow-up the [facility] in 1 to 2 days if not improving. Disposition: To home in improved and stable condition. Impression: 1. Abdominal pain, uncertain cause. 2. Opiate seeking behavior. 3. Renal insufficiency. 4. Hyperchloremic metabolic acidosis, chronic. This note was generated with [employer] dictation software. It may contain incorrect words, spelling, and punctuation that were not noted in review of the chart prior to signing ED Disposition - Plan for ED Patient: Disposition: Home or Assisted Living Instructions: ED Unknown Causes of Abdominal Pain Male Prescriptions: Ondansetron [Zofran Odt] 4 mg PO Q8H PRN PRN #10 tab PRN Reason: Nausea Prescription Printed Referrals: Kim Huang [NON-STAFF] - 1-2 Days if not improving
--- NOTE | 2020-01-22 05:56 | ED.RN ---
PT VERY ANGRY THAT HE IS NOT GETTING SOMETHING OTHER THAN A TYLENOL OR MOTRIN. PT VERY ABUSIVE AND THREATENING THAT HE DID NOT WANT HIS DISCHARGE PAPER, THROW THAT CRAP AWAY THEN RESPONDED ,SECOND THOUGHT I WANT THAT DR'S NAME, GIVE ME THAT PAPER.. PT REFUSED VITALS AND GOT ANGRY WHEN THIS NURSE PULLED THE CURTAIN CLOSED FOR PRIVACY.
[2020-01-22 06:00] VITALS: RESP 18
== END 2020-01-22 06:01 | disposition home or self-care (01) ==
LOC: ED 05:10
PROVIDERS: Emergency Provider Emergency Medicine; PCP Internal Medicine
DX: R10.84 Generalized abdominal pain (principal); E87.2 Acidosis; N28.9 Disorder of kidney and ureter, unspecified; Z76.5 Malingerer [conscious simulation]
CPT/HCPCS: 74176; 80053; 81001; 83690; 85025; 96361; 96374; 99284; J7030; A4216; J2405